=== PATIENT | female | born 1970 | race Caucasian/White ===

== ENCOUNTER → 2017-07-27 11:08 | Outpatient (CLI) | payer OTHER, MEDICARE, SELFPAY ==
--- NOTE | 2017-07-27 11:14 | RAD_ITS ---
STUDY: X-RAY - RIGHT FOOT CLINICAL: Female, 47 years old. Pain TECHNIQUE: 3 view(s) of the foot. COMPARISON: None. FINDINGS: A small plantar calcaneal spur. A prominent talar beak Normal visualized subtalar, talonavicular, calcaneocuboid, tarsal and tarsometatarsal articulations. Normal metatarsi. Normal metatarsophalangeal joint of the great toe. Normal tibial and fibular sesamoid bones. Normal interphalangeal joint of the great toe. Normal phalanges of the great toe. Normal second through fifth metatarsophalangeal joints. Normal interphalangeal joints and phalanges of the lesser toes. The soft tissue structures are unremarkable. RAD/Foot min 3 Views IMPRESSION: Normal x-ray examination of the foot. No fractures. A small plantar calcaneal spur and a prominent talar beak Electronically Signed: Rom Edgar, at 3:19 EST Tel , Service support ,
--- NOTE | 2017-07-27 11:16 | RAD_ITS ---
STUDY: X-RAY - LEFT FOOT CLINICAL: Female, 47 years old. Left foot and ankle pain TECHNIQUE: 3 views view(s) of the foot. COMPARISON: None. FINDINGS: There are small spurs from the posterior plantar surface of the os calcis. No fractures. No joint disease. Mild soft tissue swelling RAD/Foot min 3 Views IMPRESSION: Small spurs from the posterior and plantar surfaces of the os calcis. No fracture Electronically Signed: Rom Edgar, at 3:36 EST Tel , Service support ,
--- NOTE | 2017-07-27 11:17 | RAD_ITS ---
STUDY: X-RAY - LEFT ANKLE REASON FOR EXAM: Female, 47 years old. Bilateral ankle pain. TECHNIQUE: 3 view(s) of the ankle. COMPARISON: None. FINDINGS: Normal visualized distal tibia and fibula. Normal medial and lateral malleoli. Normal tibiotalar articulation and ankle mortise. Plantar spurs. The visualized subtalar, talonavicular, calcaneocuboid and tarsal articulations are normal. Mild soft tissue swelling. RAD/Ankle min 3 Views IMPRESSION: Mild soft tissue swelling. Electronically Signed: Jaxon Zhang MD at 12:45 EST Tel [phone], Service support ,
--- NOTE | 2017-07-27 11:17 | RAD_ITS ---
STUDY: X-RAY - RIGHT ANKLE REASON FOR EXAM: Female, 47 years old. Bilateral ankle pain. TECHNIQUE: 3 view(s) of the ankle. COMPARISON: None. FINDINGS: Normal visualized distal tibia and fibula. Normal medial and lateral malleoli. Normal tibiotalar articulation and ankle mortise. Small plantar spur. The visualized subtalar, talonavicular, calcaneocuboid and tarsal articulations are normal. The soft tissue structures are unremarkable. RAD/Ankle min 3 Views IMPRESSION: Small plantar spur. Electronically Signed: Jaxon Zhang MD at 12:44 EST Tel [phone], Service support ,
== END ==
PROVIDERS: Family Provider Internal Medicine; PCP Internal Medicine; Visit Provider Internal Medicine
DX: M79.671 Pain in right foot (principal); M79.672 Pain in left foot
CPT/HCPCS: 73610; 73630

== ENCOUNTER → 2017-09-06 12:42 | Outpatient (CLI) | payer OTHER, MEDICARE, SELFPAY ==
--- NOTE | 2017-09-06 12:48 | RAD_ITS ---
STUDY: X-RAY - LEFT HAND REASON FOR EXAM: Female, 47 years old. Pain TECHNIQUE: Two view(s) of the hand were obtained. COMPARISON: None. FINDINGS: Bones: There are no acute osseous abnormalities. Joints: The visualized joints are unremarkable. Soft tissues: The soft tissues are unremarkable. Foreign body: None RAD/Hand 2 Views IMPRESSION: No significant abnormalities are seen radiographically in the left hand. Electronically Signed: Olivia Ramirez MD at 8:19 EDT Tel Direct: [phone], Service support ,
--- NOTE | 2017-09-06 12:49 | RAD_ITS ---
STUDY: X-RAY - RIGHT HAND REASON FOR EXAM: Female, 47 years old. Pain TECHNIQUE: Two view(s) of the hand were obtained. COMPARISON: None. FINDINGS: Bones: There are no acute osseous abnormalities. Joints: The visualized joints are unremarkable. Soft tissues: The soft tissues are unremarkable. Foreign body: None RAD/Hand 2 Views IMPRESSION: No significant abnormalities are seen radiographically in the right hand. Electronically Signed: Olivia Ramirez MD at 8:20 EDT Tel Direct: [phone], Service support ,
== END ==
PROVIDERS: Family Provider Internal Medicine; PCP Internal Medicine; Visit Provider Internal Medicine
DX: M79.641 Pain in right hand (principal); M79.642 Pain in left hand
CPT/HCPCS: 73120

== ENCOUNTER → 2017-09-30 17:07 | Outpatient (CLI) | payer OTHER, MEDICARE, SELFPAY ==
--- NOTE | 2017-09-30 17:39 | BI_ITS ---
MAMMOGRAPHY - BILATERAL SCREENING REASON FOR EXAM: Female, 47 years old. Routine annual screening examination. PERTINENT HISTORY: Mother with breast cancer. Aunt with breast cancer. TECHNIQUE: Digital bilateral breast jakob (3D mammographic acquisition) in the CC and MLO projections. 2-D mediolateral oblique (MLO) and craniocaudad (CC) views of both breasts were obtained. CAD: Full Field Digital Mammography with Computer Added Detection was performed. COMPARISON: Comparison is made with prior study dated September 13, 2012 and May 14, 2011. FINDINGS: Breast Composition: There are scattered areas of fibroglandular density. There are no dominant masses or suspicious calcifications. No other significant abnormalities are identified. There has been no significant change since the prior study. BI/SCREENING MAMM (CAD), BILAT IMPRESSION: Stable bilateral screening mammogram. Yearly follow-up mammogram recommended. (A) ASSESSMENT CATEGORY: BIRADS Category 1: Negative. A letter regarding these results will be sent to the patient by the facility within 30 days. Approximately 10% of breast cancers are not detected by mammography. A normal mammogram should not delay biopsy of a clinically suspicious abnormality. [id number] Electronically Signed: Jaxon Zhang MD at 8:14 EDT Tel [phone], Service support ,
== END ==
PROVIDERS: Family Provider Internal Medicine; PCP Internal Medicine; Visit Provider Internal Medicine
DX: Z12.31 Encounter for screening mammogram for malignant neoplasm of breast (principal)
CPT/HCPCS: 77063; 77067

== ENCOUNTER 2017-10-13 21:33 | Emergency (ER) | payer OTHER, MEDICARE, SELFPAY ==
[2017-10-13 21:34] VITALS: BP 139/52; PULSE 75; RESP 17; TEMP 36.6; O2SAT 94; BMI 40.8
--- NOTE | 2017-10-13 22:45 | ED.VISSUMM ---
- ER Visit Summary Date of Service: 10/13/17 Chief Complaint: Vaginal itching and spotting History of Present Illness: The patient is a 47 F with a history of a total hysterectomy on Eliquis who had some vaginal itching today and when she checked noticed a small amount of blood. She denies any pelvic pain. Review of systems otherwise negative. She called the nursing line and was advised to go to the emergency department. Physical Examination: Afebrile vitals are stable Moist mucous membranes Heart regular Lungs clear There is a small area of mucous membrane area of irritation and superficial skin breakdown along the right labia majora that appears to be the source of bleeding. This may be due to vaginal atrophy. Test Results: Not indicated Emergency Department Course and Treatment: Patient has a small irritated area that appears to be the source of bleeding. She has had a complete hysterectomy. There is no indication for further emergent workup and she was advised of the need to follow-up with a front office assistant. Stance return for new or worsening symptoms. She was discharged. Treatment Plan: [] Disposition: Discharge Impression: Vaginal bleeding This note was generated with [employer] dictation software. It may contain incorrect words, spelling, and punctuation that were not noted in review of the chart prior to signing ED Disposition - Plan for ED Patient: Chief Complaint: Vag Bleeding Referrals: Paty Catalan DO [Primary Care Provider] -
--- NOTE | 2017-10-13 22:47 | ED.DEP ---
ED Disposition - Plan for ED Patient: Chief Complaint: Vag Bleeding Instructions: ED Vaginitis Atrophic Referrals: Paty Catalan DO [Primary Care Provider] - Arnav Saha MD [STAFF PHYSICIAN] -
== END 2017-10-13 23:06 | disposition home or self-care (01) ==
LOC: ED 22:57
PROVIDERS: Emergency Provider Emergency Medicine; Family Provider Internal Medicine; PCP Internal Medicine
DX: N76.0 Acute vaginitis (principal); N90.89 Other specified noninflammatory disorders of vulva and perineum; E11.9 Type 2 diabetes mellitus without complications; I10 Essential (primary) hypertension; Z90.710 Acquired absence of both cervix and uterus; Z79.01 Long term (current) use of anticoagulants; Z79.899 Other long term (current) drug therapy
CPT/HCPCS: 99282

== ENCOUNTER → 2017-12-31 17:44 | Outpatient (CLI) | payer OTHER, MEDICARE, SELFPAY ==
--- NOTE | 2017-12-31 17:47 | CT_ITS ---
STUDY: CT ABDOMEN AND PELVIS WITH CONTRAST REASON FOR EXAM: Female, 47 years old. Lower abdominal pain, history of hysterectomy cholecystectomy. RADIATION DOSAGE (If Supplied By Facility): CTDIvol = ( 18.51 ) mGy, DLP = ( 1248.52 ) mGycm TECHNIQUE: Transaxial images were obtained from the dome of the diaphragm to the symphysis pubis without oral contrast. 100ML ml of Isovue 300 contrast was administered. Sagittal and coronal images were reconstructed. Individualized dose optimization techniques were used for this CT. COMPARISON: October 10, 2014 CT scan abdomen and pelvis FINDINGS: The visualized lung bases are unremarkable. The visualized portions of the heart are within normal limits. Normal liver. There are surgical clips in the gallbladder fossa consistent with a prior cholecystectomy. Normal spleen. Normal pancreas. Normal bilateral adrenal glands. Normal right kidney. Normal left kidney. There is a small hiatal hernia. There is contrast in the stomach. There is nonspecific midline filling defect within the stomach which may represent focal wall thickening extending from the greater curvature image #42. There is a thick-walled appearance of the distal stomach. Normal small intestine. Normal colon. The appendix is visualized and appears normal. Normal abdominal aorta. Normal inferior vena cava. Normal retroperitoneum. There is mild bladder wall thickening. There is absence of the uterus consistent with a prior hysterectomy. There are superficial lower pelvic varicosities within the soft tissues left greater than right is a decompressed appearance of the inferior vena cava. There is degenerative change of the lumbar spine. There is a broad disc bulge at L4-L5 with congenital narrowing of the canal. L5-S1 there is a broad disc osteophyte complex congenital narrowing of the canal moderate neural foraminal narrowing moderate central stenosis. There is degenerative change of the SI joints. CT/Abdomen/Pelvis WITH Contrast IMPRESSION: Stable soft tissue varicosities within the lower abdominal/pelvis wall compared to prior study. Status post hysterectomy Status post cholecystectomy. Allowing for peristalsis, Thickened appearance of the wall of the stomach which may represent potentially underlying gastritis and a potential Atypia/mass. Consider follow-up upper GI small bowel follow-through and/or endoscopy. 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
== END ==
PROVIDERS: Family Provider Internal Medicine; PCP Internal Medicine; Visit Provider Internal Medicine
DX: R10.30 Lower abdominal pain, unspecified (principal)
CPT/HCPCS: 74177; Q9967

== ENCOUNTER 2018-01-10 05:39 | Day surgery (SDC) | payer OTHER, MEDICARE, SELFPAY ==
--- NOTE | 2018-01-06 16:13 | NURSING ---
Pt repeatedly falling asleep on the phone while trying to complete PAT questions.
[2018-01-10 06:06] VITALS: BP 113/73; PULSE 61; RESP 16; TEMP 35.8; O2SAT 97; BMI 38.7
[2018-01-10 06:30] LABS: Bedside Glucose 108 mg/dL (70-110)
--- NOTE | 2018-01-10 07:08 | PCM.OPRPT ---
Problem List (1) Abnormal findings on diagnostic imaging of other abdominal regions, including retroperitoneum Status: Acute Report of Operation Date of Procedure: 01/10/18 Pre-Operative Diagnosis: r93.[address] scan of abdomen Post-Operative Diagnosis: Same Surgery/Procedure Performed:: Esophagogastroduodenoscopy Type of Anesthesia:: MAC Anesthesiologist: Rios Akbar Description of Procedure: Patient was brought into the endoscopy suite. Back of her throat was sprayed with benzocaine spray. He was given graded anesthesia. A bite-block was placed. Lippa scope was inserted into the back of the oropharynx and directed down through the esophagus into the stomach and into the duodenum without difficulty. Operative findings: 1. Duodenum: Normal appearance no mass lesions no ulcerations no signs of bleeding. 2. Stomach: Normal appearance no mass lesions no ulcerations minimal gastritis was identified in the prepyloric area but there was no signs of any linear ulcerations the mucosal all look normal there was no cobblestoning of the mucosa. There was no recent activity of bleeding. Retroflexion did not show any signs of a hiatal hernia. 3. Esophagus: Normal appearance no mass lesions normal ZE line there was no signs of esophagitis there is no signs of any recent bleeding there is no signs of any hiatal hernia. Patient's upper scope was entirely normal no biopsies were obtained. - Admit VTE Documentation VTE Present on Admission: No VTE Mechan Device Prophylaxis: None VTE Pharm Prophylaxis ordered?: No Reason prophylaxis not ordered:: Treatment Not Indicated
[2018-01-10 07:10] VITALS: BP 101/70; BP 113/73; PULSE 64; RESP 16; TEMP 36.4; O2SAT 94
[2018-01-10 07:15] VITALS: BP 113/73; BP 97/79; PULSE 82; RESP 16; O2SAT 94
[2018-01-10 07:20] VITALS: BP 103/76; BP 113/73; PULSE 62; RESP 16; O2SAT 92
[2018-01-10 07:26] VITALS: BP 113/73; BP 116/80; PULSE 64; RESP 18; TEMP 36.3; O2SAT 94
[2018-01-10 07:38] VITALS: BP 113/73
== END 2018-01-10 08:01 | disposition home or self-care (01) ==
LOC: EN 05:40
PROVIDERS: Family Provider Internal Medicine; PCP Internal Medicine; Visit Provider Surgery
PROC: 0DJ08ZZ Inspection of Upper Intestinal Tract, Via Natural or Artificial Opening Endoscopic (ICD-10-PCS; CPT 43235; principal; 2018-01-10 06:55)
DX: R93.5 Abnormal findings on diagnostic imaging of other abdominal regions, including retroperitoneum (principal); I50.9 Heart failure, unspecified; I11.0 Hypertensive heart disease with heart failure; J44.9 Chronic obstructive pulmonary disease, unspecified; Z87.891 Personal history of nicotine dependence; K21.9 Gastro-esophageal reflux disease without esophagitis; E11.9 Type 2 diabetes mellitus without complications; Z86.718 Personal history of other venous thrombosis and embolism; Z79.899 Other long term (current) drug therapy; Z79.01 Long term (current) use of anticoagulants; Z79.4 Long term (current) use of insulin; G47.33 Obstructive sleep apnea (adult) (pediatric); Z87.11 Personal history of peptic ulcer disease; R19.7 Diarrhea, unspecified; K43.2 Incisional hernia without obstruction or gangrene
CPT/HCPCS: 43235; 82962; J7120

== ENCOUNTER 2018-02-02 10:23 | Emergency (ER) | payer OTHER, MEDICARE, SELFPAY ==
[2018-02-02 10:24] VITALS: BP 101/65; PULSE 69; RESP 16; TEMP 36.7; O2SAT 96; BMI 39.8
[2018-02-02 10:30] VITALS: BP 105/73; PULSE 74; RESP 16
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
[2018-02-02] MEDS: Acetaminophen 500 MG Tablet 1000 MG PO (11:58)
[2018-02-02 12:40] VITALS: BP 111/75; PULSE 70; RESP 14; O2SAT 98
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
[2018-02-02 12:55] VITALS: BP 124/71; PULSE 80; RESP 20
== END 2018-02-02 12:55 | disposition home or self-care (01) ==
PROVIDERS: Emergency Provider Emergency Medicine; Family Provider Internal Medicine; PCP Internal Medicine
DX: S20.212A Contusion of left front wall of thorax, initial encounter (principal); S20.211A Contusion of right front wall of thorax, initial encounter; V89.2XXA Person injured in unspecified motor-vehicle accident, traffic, initial encounter; Y93.9 Activity, unspecified; Y92.9 Unspecified place or not applicable; I25.10 Atherosclerotic heart disease of native coronary artery without angina pectoris; I50.9 Heart failure, unspecified; E11.9 Type 2 diabetes mellitus without complications; Z79.01 Long term (current) use of anticoagulants; Z79.84 Long term (current) use of oral hypoglycemic drugs; Z79.899 Other long term (current) drug therapy
CPT/HCPCS: 71046; 99284

== ENCOUNTER → 2018-02-09 06:23 | Outpatient (CLI) | payer OTHER, MEDICARE, SELFPAY ==
--- NOTE | 2018-02-09 15:59 | NEURO ---
NCS and/or EMG Patient Report Ordering Doctor: Paty Catalan DATE OF SERVICE: 02/09/18 Simi Rodriges is a 47-year-old female presents for electrodiagnostic testing of the upper limbs she has chief complaint of numbness and tingling in both hands. Electrodiagnostic findings: Median motor nerve demonstrates normal distal latency, amplitude and conduction velocity bilaterally. Normal ulnar motor response bilaterally. Normal ulnar and median F waves. Sensory responses are within normal limits. Needle EMG testing shows 1+ fibrillations in the left pronator teres, left triceps and left lower cervical paraspinals. Motor unit action potentials were normal amplitude and duration. Electrodiagnostic impression: This is an abnormal study in the upper limbs. 1. Electrodiagnostic findings demonstrate acute left C7 radiculopathy. Consider clinical correlation with cervical spine imaging. 2. No electrodiagnostic evidence is noted for peripheral neuropathy. There is no electrodiagnostic evidence for carpal tunnel syndrome. If there are any further questions, please do not hesitate to contact me
== END ==
PROVIDERS: Family Provider Internal Medicine; PCP Internal Medicine; Visit Provider Internal Medicine
DX: R20.2 Paresthesia of skin (principal)
CPT/HCPCS: 95886; 95913

== ENCOUNTER 2018-02-14 07:41 | Day surgery (SDC) | payer OTHER, MEDICARE, SELFPAY ==
--- NOTE | 2018-02-14 | COLBX_PTH ---
PATIENT: COOPER NIELSEN LOC: EN U#:[id number] AGE/SX: 47/F ROOM: RE02/14/[address]: Dr. Frederick Rdz MD : 1970 BED: DIS: 02/14/2018 SPEC #: [id number] RECD: 02/14/18 13:23 STATUS: CARITO LUZMARIA #: [id number] ROSALINE: 02/14/18 00:[address]: Frederick Rdz DEPT: SURGICAL PATHOLOGY RECD BY: Samson Mcneill ENTERED: 02/14/18 13:24 SP TYPE: COLON BX OTHR DR: Dr. Paty Catalan, DO Tissues: A - Ileum, NOS B - COLON BIOPSY Procedures: Surgery Specimen Level IV HEADER OPERATION: Colonoscopy PRE-OP DIAGNOSIS: Diarrhea TISSUE SUBMITTED: A ? Terminal ileum biopsy, B ? Random colon biopsies MICROSCOPIC DIAGNOSIS A. Terminal ileum, biopsy: Fragments of small intestinal mucosa, no pathologic diagnosis. B. Colon, random biopsy: Fragments of colonic mucosa, no pathologic diagnosis. DEBORAH:torres 02/15/18 MICROSCOPIC DESCRIPTION Slides are reviewed. GROSS DESCRIPTION A - Received in fixative is one container labeled with the patient's name and designated terminal ileum. The specimen consists of multiple irregular fragments of light gaspar soft tissue that in aggregate measure 0.5 x 0.4 x 0.1 cm. The specimen is totally submitted in one cassette. B - Received in fixative is one container labeled with the patient's name and designated random colon biopsy. The specimen consists of multiple irregular fragments of light gaspar soft tissue that in aggregate measure 2 x 0.5 x 0.1 cm. The specimen is totally submitted in one cassette. / DEBORAH:torres 02/14/18 TC:4 CPT: 25921 x2
[2018-02-14 08:04] VITALS: BP 107/69; PULSE 82; RESP 18; TEMP 36.2; O2SAT 97; BMI 39.4
[2018-02-14 08:21] LABS: Bedside Glucose 107 mg/dL (70-110)
--- NOTE | 2018-02-14 08:57 | PCM.OPRPT ---
Problem List (1) Abnormal findings on diagnostic imaging of other abdominal regions, including retroperitoneum Status: Acute (2) Diarrhea Status: Acute Qualifiers: Diarrhea type: unspecified type Qualified Code(s): R19.7 - Diarrhea, unspecified Report of Operation Date of Procedure: 02/14/18 Pre-Operative Diagnosis: R19.[address] scan of abdomen Post-Operative Diagnosis: Same Surgery/Procedure Performed:: [id number] colonoscopy with biopsies Type of Anesthesia:: MAC Description of Procedure: Patient was brought into the endoscopy suite placed in left lateral decubitus position was given graded anesthesia. The colonoscope was inserted into the rectum. The scope was directed through the sigmoid colon, descending colon, transverse colon, descending colon, to the cecum, and into the terminal ileum operative findings: #1 terminal ileum: Normal appearance biopsy was obtained no signs of ulcerations or mass lesions. 2. Cecum: Normal appearance no mass lesions normal ileocecal valve. 3. Ascending colon: Normal appearance no mass lesions 4. Transverse colon: Normal appearance no mass lesions 5. Descending colon: Normal appearance no mass lesions. 6. Sigmoid colon: Normal appearance no mass lesions 7 rectum: Normal appearance no mass lesions I did random colon biopsies from the cecum to the rectum. These were all placed in the same jar. The mucosa looked entirely normal there is no obvious signs of reasons for her diarrhea. I will see her back in 1 week and discussed the biopsy results with her. I will also discuss possible hernia repair on her. - Admit VTE Documentation VTE Present on Admission: No VTE Mechan Device Prophylaxis: None VTE Pharm Prophylaxis ordered?: No Reason prophylaxis not ordered:: Treatment Not Indicated
[2018-02-14 08:59] VITALS: BP 102/71; BP 107/69; PULSE 78; RESP 16; TEMP 36.5; O2SAT 94
[2018-02-14 09:04] VITALS: BP 102/67; BP 107/69; PULSE 70; RESP 16; O2SAT 94
[2018-02-14 09:09] VITALS: BP 107/69; BP 98/80; PULSE 81; RESP 16; O2SAT 94
[2018-02-14 09:15] VITALS: BP 107/69; BP 111/76; PULSE 73; RESP 16; TEMP 36.4; O2SAT 96
== END 2018-02-14 10:28 | disposition home or self-care (01) ==
LOC: EN 07:43 → AC 07:43
PROVIDERS: Family Provider Internal Medicine; PCP Internal Medicine; Visit Provider Surgery
PROC: 0DJD8ZZ Inspection of Lower Intestinal Tract, Via Natural or Artificial Opening Endoscopic (ICD-10-PCS; CPT 45378; principal; 2018-02-14 08:55)
DX: R19.7 Diarrhea, unspecified (principal); R93.5 Abnormal findings on diagnostic imaging of other abdominal regions, including retroperitoneum; K43.2 Incisional hernia without obstruction or gangrene; G47.33 Obstructive sleep apnea (adult) (pediatric); I11.0 Hypertensive heart disease with heart failure; I50.9 Heart failure, unspecified; F31.9 Bipolar disorder, unspecified; I42.9 Cardiomyopathy, unspecified; K58.9 Irritable bowel syndrome, unspecified; F20.9 Schizophrenia, unspecified; J44.9 Chronic obstructive pulmonary disease, unspecified; G25.81 Restless legs syndrome; E11.9 Type 2 diabetes mellitus without complications; F32.9 Major depressive disorder, single episode, unspecified; Z86.711 Personal history of pulmonary embolism; Z86.718 Personal history of other venous thrombosis and embolism; Z87.11 Personal history of peptic ulcer disease; Z78.0 Asymptomatic menopausal state; Z90.710 Acquired absence of both cervix and uterus; Z90.49 Acquired absence of other specified parts of digestive tract; Z79.84 Long term (current) use of oral hypoglycemic drugs; Z79.01 Long term (current) use of anticoagulants; Z79.899 Other long term (current) drug therapy; Z87.891 Personal history of nicotine dependence
CPT/HCPCS: 45380; 82962; 88305; J7120

== ENCOUNTER → 2018-02-15 10:51 | Outpatient (CLI) | payer OTHER, MEDICARE, SELFPAY | PROVIDERS: Family Provider Internal Medicine; PCP Internal Medicine; Visit Provider Internal Medicine | DX: M54.12 Radiculopathy, cervical region (principal) | CPT/HCPCS: 72050 ==

== ENCOUNTER 2018-02-21 11:30 | Outpatient (RCR) | payer OTHER, MEDICARE, SELFPAY ==
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
--- NOTE | 2018-03-04 11:57 | HP.PTDCNRP_ITS ---
HP - Discharge Summary (1) - Patient Information COOPER NIELSEN was seen in my office for initial evaluation on 02/18/18. The following Plan of Care was established for this patient: Initial Frequency: 3x /Week Initial Duration: 2-4 Weeks - Anticipated Interventions Patient/Client Instruction: Educate patient on: Condition For the Purpose of:: To decrease pain, To increase ROM, To increase tolerance to activity/condition/position Therapeutic Exercise to Include: Strength training, Flexibilty training, Active ROM, Scapular Strength/Stabilization For the Purpose of:: To decrease pain, To increase ROM, To improve muscle performance and motor function, To improve ability of physical actions for home/ community/work/leisure, To improve gait and locomotor functions Manual Therapy Techniques to Include: Soft tissue mobilization For the Purpose of:: To increase ROM, To improve nutrient delivery to tissue Thermo therapy (hot pack): Yes For the Purpose of:: To improve nutrient delivery to tissue, To increase tolerance to activity/condition/position This patient was last seen in our office 02/21/18. Pertinent comments regarding their Physical therapy will appear below: Pt seen for two visits and has no showed 4 times since neglecting to attend any further visits. at this time, I will d/c her due to nonattendance. At this point I will be discontinuing this patient from physical therapy. I would be happy to see this patient again in the future if found appropriate by the physician. Thank you! Rios Delcid, DPT, OC
== END 2018-02-21 19:00 | disposition home or self-care (01) ==
LOC: PT 11:30
PROVIDERS: Family Provider Internal Medicine; PCP Internal Medicine; Visit Provider Internal Medicine
DX: M79.9 Soft tissue disorder, unspecified (principal); S20.319D Abrasion of unspecified front wall of thorax, subsequent encounter; M54.12 Radiculopathy, cervical region; V89.2XXD Person injured in unspecified motor-vehicle accident, traffic, subsequent encounter
CPT/HCPCS: 97110; 97162

== ENCOUNTER 2018-02-23 16:28 | Emergency (ER) | payer OTHER, MEDICARE, SELFPAY ==
[2018-02-23 16:30] VITALS: BP 111/67; PULSE 89; RESP 16; TEMP 36.8; O2SAT 97; BMI 36.0
[2018-02-23 17:33] LABS: Absolute Lymphocyte Count 2.67 X10^3/ul (0.83-4.51); Basophil# 0.01 X10^3/uL; Basophil% 0.1 % (0-1); Eosinophil# 0.12 X10^3/uL; Eosinophils% 1.1 % (0-5); Hematocrit 45.2 % (37-47); Hemoglobin 14.6 g/dl (12.0-15.0); Lymphocyte # 2.67 X10^3/ul (4.0); Mean Corp Hgb Conc 32.3 g/gl (32-36); Mean Corpuscular Volume 92.8 fL (81-99); Mean Platelet Vol. 9.9 fl (6.2-12.0); Monocyte# 0.89 X10^3/uL; Monocyte% 8.3 % (0-10); Neutrophil # 6.97 X10^3/uL (2.7-7.7); Neutrophil % 65.4 % (47-70); Platelet Count 246 K/mm3 (150-450); RBC Distribution Width CV 13.1 % (11.6-14.6); RBC Distribution Width SD 44.6 fl (35.1-43.9); Red Blood Count 4.87 M/mm3 (4.2-5.4); White Blood Count 10.7 K/mm3 (4.4-11.0)
[2018-02-23 17:35] LABS: POSITIVE COUNT NO; POSITIVE DIFFERENTIAL NO; POSITIVE MORPHOLOGY NO
[2018-02-23 17:53] LABS: ALB/GLOB Ratio 0.9 RATIO (0.9-2.4); AST(SGOT) 14 U/L (15-37); Alanine Aminotransfer ALT/SGPT 29 U/L (13-56); Albumin, Serum 3.5 g/dL (3.2-5.0); Alkaline Phosphatase 101 U/L (45-117); Anion Gap 9 (5-15); BUN 17 mg/dL (7-18); BUN/Creat Ratio 22.6 RATIO (10-20); Chloride 106 mmol/L (98-107); Creatinine, Serum 0.75 mg/dL (0.55-1.02); EST Glomerular Filtration Rate 87 mL/min (>60); Est Glom Filt Rate - Afr Amer 105 mL/min (>60); Estimated Creatinine Clearance 87.27 ml/min; Globulin 4.1 g/dL (2.2-4.2); Glucose 98 mg/dL (74-106); Potassium 3.3 mmol/L (3.5-5.1); Protein, Total 7.6 g/dL (6.4-8.2); Sodium Level 142 mmol/L (136-145)
[2018-02-23 17:55] LABS: Pregnancy, Serum, hCG Quali. NEGATIVE Negative (0-9 Nonpreg)
[2018-02-23 18:06] LABS: Alcohol, Blood (Medical)-Serum < 3.0 mg/dL
[2018-02-23] MEDS: Ziprasidone IM 20 MG/ML VIAL 10 MG IM (18:14)
[2018-02-23 18:59] VITALS: BP 118/82; PULSE 74; RESP 16; O2SAT 96
[2018-02-23 19:03] LABS: Red Blood Cells-Urine 0 SEEN /hpf (0-5)
[2018-02-23 19:07] LABS: Color, Urine Yellow (Yellow); Glucose, Dipstick Normal (Normal); Ketone-Dipstick Negative (Negative); Leukocyte Esterase-Dipstick 25 /ul (Negative); Nitrite-Dipstick Negative (Negative); Occult Blood-Urine Negative /ul (Negative); Protein-Dipstick Negative (Negative); Urine Bilirubin Dipstick Negative (Negative); Urine Clarity Clear (Clear); Urine Urobilinogen Normal (Normal)
[2018-02-23 19:21] LABS: Bacteria 2+ /hpf (None Seen); Mucous, Urine 2+ /hpf (<or=2+); Squamous Epithelial Cells - UA 0-5 SEEN /hpf (5-10); White Blood Cells 0-5 SEEN /hpf (0-5)
[2018-02-23 19:25] LABS: Amphetamine Urine VISTA NEGATIVE (<1000 ng/mL); Barbiturate Urine VISTA NEGATIVE (< 200 ng/mL); Benzodiazepine Urine VISTA NEGATIVE (< 200 ng/mL); Cocaine Urine VISTA NEGATIVE (< 300 ng/mL); Ecstacy Urine VISTA NEGATIVE (< 500 ng/mL); Methadone Urine VISTA NEGATIVE (< 300 ng/mL); PCP Urine VISTA NEGATIVE (< 25 ng/mL); THC Urine VISTA NEGATIVE (< 50 ng/mL); Vista UDS pH Range 6
[2018-02-23 20:10] VITALS: BP 108/80; PULSE 80; RESP 14; O2SAT 98
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
== END 2018-02-23 20:20 | disposition home or self-care (01) ==
PROVIDERS: Emergency Provider Emergency Medicine; Family Provider Internal Medicine; PCP Internal Medicine
DX: F20.9 Schizophrenia, unspecified (principal); R79.1 Abnormal coagulation profile; Z79.01 Long term (current) use of anticoagulants; R51 Headache; J45.909 Unspecified asthma, uncomplicated; F31.9 Bipolar disorder, unspecified; E11.9 Type 2 diabetes mellitus without complications; Z86.718 Personal history of other venous thrombosis and embolism; Z79.84 Long term (current) use of oral hypoglycemic drugs; Z79.899 Other long term (current) drug therapy
CPT/HCPCS: 70450; 80053; 80307; 80320; 81001; 84703; 85025; 96372; 99283; A4216; G0480; J3486

== ENCOUNTER 2018-02-26 10:08 | Emergency (ER) | payer OTHER, MEDICARE, SELFPAY ==
[2018-02-26 10:10] VITALS: BP 112/86; PULSE 83; RESP 22; TEMP 36.4; O2SAT 94; BMI 41.1
[2018-02-26 10:50] LABS: Red Blood Cells-Urine 0 SEEN /hpf (0-5); White Blood Cells 0 SEEN /hpf (0-5)
[2018-02-26 10:55] LABS: Color, Urine Yellow (Yellow); Glucose, Dipstick Normal (Normal); Ketone-Dipstick 5 mg/dl (Negative); Leukocyte Esterase-Dipstick Negative /ul (Negative); Nitrite-Dipstick Negative (Negative); Occult Blood-Urine Negative /ul (Negative); Protein-Dipstick Negative (Negative); Urine Bilirubin Dipstick Negative (Negative); Urine Clarity Sl. Cloudy (Clear); Urine Urobilinogen Normal (Normal); Urine pH 6.5 (5.0 - 8.0)
[2018-02-26 10:56] LABS: Absolute Lymphocyte Count 3.05 X10^3/ul (0.83-4.51); Absolute Neutrophil Count 5.6 X10^3/uL (2.0-7.7); Basophil# 0.02 X10^3/uL; Basophil% 0.2 % (0-1); Eosinophil# 0.17 X10^3/uL; Eosinophils% 1.8 % (0-5); Hematocrit 44.3 % (37-47); Hemoglobin 14.5 g/dl (12.0-15.0); Lymphocyte # 3.05 X10^3/ul (4.0); Lymphocyte % 31.7 % (19-41); Mean Corp Hgb Conc 32.7 g/gl (32-36); Mean Corpuscular Hgb 30.3 pg (27.0-32.0); Mean Corpuscular Volume 92.7 fL (81-99); Mean Platelet Vol. 10.2 fl (6.2-12.0); Monocyte# 0.77 X10^3/uL; Neutrophil % 58.1 % (47-70); Platelet Count 240 K/mm3 (150-450); RBC Distribution Width CV 13.1 % (11.6-14.6); Red Blood Count 4.78 M/mm3 (4.2-5.4); White Blood Count 9.6 K/mm3 (4.4-11.0)
[2018-02-26 10:57] LABS: Differential Indicated SCAN CRITERIA MET; POSITIVE COUNT NO; POSITIVE DIFFERENTIAL NO; POSITIVE MORPHOLOGY YES
[2018-02-26 11:02] LABS: Bacteria RARE /hpf (None Seen); Mucous, Urine 1+ /hpf (<or=2+); Squamous Epithelial Cells - UA 0-5 SEEN /hpf (5-10)
[2018-02-26 11:07] LABS: Anion Gap 10 (5-15); BUN 16 mg/dL (7-18); BUN/Creat Ratio 25.3 RATIO (10-20); Calcium,Total 8.8 mg/dL (8.5-10.1); Chloride 106 mmol/L (98-107); Creatinine, Serum 0.63 mg/dL (0.55-1.02); EST Glomerular Filtration Rate 106 mL/min (>60); Est Glom Filt Rate - Afr Amer 128 mL/min (>60); Estimated Creatinine Clearance 92.25 ml/min; Glucose 109 mg/dL (74-106); Potassium 3.6 mmol/L (3.5-5.1); Sodium Level 142 mmol/L (136-145)
[2018-02-26 11:14] LABS: Pregnancy, Serum, hCG Quali. NEGATIVE Negative (0-9 Nonpreg)
[2018-02-26 11:14] LABS: Amphetamine Urine VISTA NEGATIVE (<1000 ng/mL); Barbiturate Urine VISTA NEGATIVE (< 200 ng/mL); Benzodiazepine Urine VISTA NEGATIVE (< 200 ng/mL); Cocaine Urine VISTA NEGATIVE (< 300 ng/mL); Ecstacy Urine VISTA NEGATIVE (< 500 ng/mL); Methadone Urine VISTA NEGATIVE (< 300 ng/mL); PCP Urine VISTA NEGATIVE (< 25 ng/mL); THC Urine VISTA NEGATIVE (< 50 ng/mL); Vista UDS pH Range 6
[2018-02-26 11:43] VITALS: BP 122/78; PULSE 80; RESP 14; O2SAT 98
--- NOTE | 2018-02-26 12:03 | ED.RN ---
CALLED COUNSELING CENTER TO HAVE THEM COME SEE PATIENT.
--- NOTE | 2018-02-26 12:34 | ED.RN ---
DEEPAK CALLED STATING SHE WOULD BE IN TO EVALUATE PATIENT.
[2018-02-26 12:35] VITALS: BP 118/70; PULSE 80; RESP 14; O2SAT 98
--- NOTE | 2018-02-26 13:00 | NURSING ---
DEEPAK, CRISIS , HERE
[2018-02-26 13:07] VITALS: BP 115/74; PULSE 75; RESP 14; O2SAT 98
--- NOTE | 2018-02-26 14:57 | ED.VISSUMM ---
- ER Visit Summary Date of Service: 02/26/18 Chief Complaint: Schizophrenia presents with hallucinations for the past week. She has an appointment with a new psychiatrist on Wednesday at the crisis center. No recent changes in medication but her does note that she has not been taking her meds for the past few weeks or taking them intermittently. He is not concerned that she is at risk for harming herself or others, it is just the hallucinations that are bothering her more more. Physical Examination: Vitals are within normal limits. She is not in distress. Neck is supple. Heart tones are regular and without murmur. Lungs are clear bilaterally. Abdomen is soft and nontender. No focal or lateralizing neuro findings. Speech is clear. She is open and cooperative with questions. She does have abnormal thought content but denies suicidal thoughts or ideation. Denies homicidal thoughts or ideation. Test Results: Medical screening labs are unremarkable Emergency Department Course and Treatment: He was evaluated by crisis. They do not feel that she is at risk for self-harm or harm to others. They do not feel that she meets criteria for admission. Additionally, the patient and her would prefer to go home and follow-up at her appointment as well as the crisis center. I reevaluated her and she confirms that she has no thoughts of harming herself and her agrees. He will be with her and will not leave her alone. They did ask for an injection of Geodon here because this has worked well for her in the past so she was given a low-dose injection prior to discharge. Treatment Plan: Follow up with her new psychiatrist Disposition: Home stable condition Impression: Subsequent encounter, paranoid ideation with history of schizophrenia This note was generated with [employer] dictation software. It may contain incorrect words, spelling, and punctuation that were not noted in review of the chart prior to signing ED Disposition - Plan for ED Patient: Chief Complaint: Mental Health Instructions: ED Paranoid Schizophrenia Referrals: Paty Catalan DO [Primary Care Provider] -
[2018-02-26 15:02] VITALS: BP 122/74; PULSE 80; RESP 14; O2SAT 98
[2018-02-26] MEDS: Ziprasidone IM 20 MG/ML VIAL IM (15:14)
== END 2018-02-26 15:41 | disposition home or self-care (01) ==
LOC: ED 10:44
PROVIDERS: Emergency Provider Emergency Medicine; Family Provider Internal Medicine; PCP Internal Medicine
DX: F20.0 Paranoid schizophrenia (principal); F29 Unspecified psychosis not due to a substance or known physiological condition; E11.9 Type 2 diabetes mellitus without complications; Z86.718 Personal history of other venous thrombosis and embolism; Z79.01 Long term (current) use of anticoagulants; Z79.84 Long term (current) use of oral hypoglycemic drugs; Z79.899 Other long term (current) drug therapy
CPT/HCPCS: 36415; 80048; 80307; 80320; 81001; 84703; 85025; 96372; 99283; G0480; J3486

== ENCOUNTER 2018-02-27 12:47 | Emergency (ER) | payer OTHER, MEDICARE, SELFPAY ==
[2018-02-27 12:48] VITALS: BP 109/71; PULSE 89; RESP 16; TEMP 36.6; O2SAT 95; BMI 39.5
[2018-02-27 13:09] VITALS: BP 115/70; PULSE 80; RESP 14; O2SAT 99
--- NOTE | 2018-02-27 13:09 | ED.VISSUMM ---
- ER Visit Summary Date of Service: 02/27/18 Chief Complaint: [] Contusion to the left lower abdomen after inadvertently striking sink History of Present Illness: The patient is a 48 F [] schizophrenia, 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 She has no abdominal pain no fever no cough no bowel bladder complaints she did not strike any other part of body she is other complaints she again just simply bumped her abdomen against the sink when she indicates taking all of her medications including her behavioral meds list Physical Examination: [] Resting comforting the bed vital signs are within normal range no psychomotor agitation head neck chest unremarkable abdomen soft it is obese there is a mild area of contusion to the left lower quadrant a circular it is about the size of a silver dollar, this area slightly tender there is no rebound guarding organomegaly there is no deep abdominal pain she denies any pain other than the superficial pain related to the contusion, her back is unremarkable upper lower extremities pelvis are unremarkable Test Results: [] Emergency Department Course and Treatment: [] Now there is nothing on physical exam to suggest an acute intra-abdominal process, this occurred hours ago she is hemodynamically stable with no issues or complaints except for this focal pain in the subcu of her skin as above I explained she stand all of her medications Tylenol for the pain, she should not use Motrin, and follow-up with her doctors she agrees and understands Treatment Plan: [] Disposition: [] Home stable Impression: [] Contusion left lower abdomen after inadvertent trauma, history of Eliquis therapy and schizophrenia This note was generated with [employer] dictation software. It may contain incorrect words, spelling, and punctuation that were not noted in review of the chart prior to signing ED Disposition - Plan for ED Patient: Chief Complaint: Other, Pain/Inj Referrals: Paty Catalan DO [Primary Care Provider] -
--- NOTE | 2018-02-27 13:11 | ED.DEP ---
ED Disposition - Plan for ED Patient: Chief Complaint: Other, Pain/Inj Instructions: Contusions (Bruises), ED Contusion Soft Tissue Referrals: Paty Catalan DO [Primary Care Provider] -
== END 2018-02-27 13:28 | disposition home or self-care (01) ==
LOC: ED 13:14
PROVIDERS: Emergency Provider Emergency Medicine; Family Provider Internal Medicine; PCP Internal Medicine
DX: S30.1XXA Contusion of abdominal wall, initial encounter (principal); W22.8XXA Striking against or struck by other objects, initial encounter; Y93.9 Activity, unspecified; Y92.9 Unspecified place or not applicable; F20.9 Schizophrenia, unspecified; Z86.718 Personal history of other venous thrombosis and embolism; Z79.01 Long term (current) use of anticoagulants; Z79.899 Other long term (current) drug therapy
CPT/HCPCS: 99282

== ENCOUNTER 2018-02-28 01:40 | Emergency (ER) | payer OTHER, MEDICARE, SELFPAY ==
[2018-02-28] VITALS (7 sets, daily range): BP systolic 64–115; BP diastolic 47–68; PULSE 68–93; RESP 12–19; TEMP 36.1–36.9; O2SAT 92–98; BMI 36.4; BMI 36.3
[2018-02-28] MEDS: 0.9% Normal Saline 1,000 ML 1000 ML IV (02:30)
[2018-02-28 03:09] LABS: AST(SGOT) 18 U/L (15-37); Alanine Aminotransfer ALT/SGPT 22 U/L (13-56); Albumin, Serum 3.6 g/dL (3.2-5.0); Alkaline Phosphatase 93 U/L (45-117); Anion Gap 10 (5-15); BUN 20 mg/dL (7-18); BUN/Creat Ratio 20.3 RATIO (10-20); Calcium,Total 8.8 mg/dL (8.5-10.1); Chloride 107 mmol/L (98-107); Creatinine, Serum 0.99 mg/dL (0.55-1.02); EST Glomerular Filtration Rate 63 mL/min (>60); Est Glom Filt Rate - Afr Amer 77 mL/min (>60); Estimated Creatinine Clearance 58.71 ml/min; Globulin 3.7 g/dL (2.2-4.2); Glucose 145 mg/dL (74-106); Potassium 3.8 mmol/L (3.5-5.1); Protein, Total 7.3 g/dL (6.4-8.2); Sodium Level 143 mmol/L (136-145)
[2018-02-28 03:13] LABS: Absolute Lymphocyte Count 1.41 X10^3/ul (0.83-4.51); Absolute Neutrophil Count 9.6 X10^3/uL (2.0-7.7); Basophil# 0.02 X10^3/uL; Basophil% 0.2 % (0-1); Eosinophil# 0.07 X10^3/uL; Eosinophils% 0.6 % (0-5); Hematocrit 44.3 % (37-47); Hemoglobin 14.8 g/dl (12.0-15.0); Lymphocyte # 1.41 X10^3/ul (4.0); Lymphocyte % 11.9 % (19-41); Mean Corp Hgb Conc 33.4 g/gl (32-36); Mean Corpuscular Hgb 30.9 pg (27.0-32.0); Mean Corpuscular Volume 92.5 fL (81-99); Mean Platelet Vol. 10.6 fl (6.2-12.0); Monocyte% 5.9 % (0-10); Neutrophil # 9.59 X10^3/uL (2.7-7.7); Neutrophil % 81.1 % (47-70); Platelet Count 261 K/mm3 (150-450); RBC Distribution Width CV 12.8 % (11.6-14.6); RBC Distribution Width SD 42.7 fl (35.1-43.9); Red Blood Count 4.79 M/mm3 (4.2-5.4); White Blood Count 11.8 K/mm3 (4.4-11.0)
[2018-02-28 03:14] LABS: POSITIVE COUNT NO; POSITIVE DIFFERENTIAL NO; POSITIVE MORPHOLOGY NO
[2018-02-28 03:19] LABS: Bacteria 0 SEEN /hpf (None Seen); Mucous, Urine 0 SEEN /hpf (<or=2+); Red Blood Cells-Urine 0 SEEN /hpf (0-5); Squamous Epithelial Cells - UA 0 SEEN /hpf (5-10)
[2018-02-28 03:21] LABS: Color, Urine Yellow (Yellow); Glucose, Dipstick Normal (Normal); Ketone-Dipstick 15 mg/dl (Negative); Leukocyte Esterase-Dipstick Negative /ul (Negative); Nitrite-Dipstick Negative (Negative); Occult Blood-Urine Negative /ul (Negative); Protein-Dipstick Negative (Negative); Urine Bilirubin Dipstick Negative (Negative); Urine Clarity Clear (Clear); Urine Urobilinogen Normal (Normal)
[2018-02-28 03:26] LABS: Partial Thromboplast Time 28.4 Seconds (24.1-36.2)
[2018-02-28 03:28] LABS: Hyaline Cast 5-10 SEEN /lpf (0-5); White Blood Cells 0-5 SEEN /hpf (0-5)
[2018-02-28 03:41] LABS: International Normalized Ratio 1.1; Prothrombin Time (Protime)PT. 14.3 SECONDS (11.7-14.9)
[2018-02-28 04:01] LABS: Bedside Glucose 115 mg/dL (70-110)
[2018-02-28 04:29] LABS: Amphetamine Urine VISTA NEGATIVE (<1000 ng/mL); Barbiturate Urine VISTA NEGATIVE (< 200 ng/mL); Benzodiazepine Urine VISTA NEGATIVE (< 200 ng/mL); Cocaine Urine VISTA NEGATIVE (< 300 ng/mL); Ecstacy Urine VISTA NEGATIVE (< 500 ng/mL); Methadone Urine VISTA NEGATIVE (< 300 ng/mL); PCP Urine VISTA NEGATIVE (< 25 ng/mL); THC Urine VISTA NEGATIVE (< 50 ng/mL); Vista UDS pH Range 6
--- NOTE | 2018-02-28 04:46 | ED.VISSUMM ---
- ER Visit Summary Date of Service: 02/28/18 Chief Complaint: Mental health, confusion History of Present Illness: The patient is a 48 F history of bipolar, schizophrenia, brought in by significant other concerns of confusion. Patient wandered away from the house, reported she fell, she able to make it back to the house. Mother states she is not herself. Patient denies any pain. No urinary symptoms. No nausea or vomiting. Denies homicidal or suicidal ideations. Significant other states patient has been seen multiple times in the ED here in the past couple weeks. States she was seen by crisis counselor. Records reviewed: Yesterday seen for abdominal contusion. 2 days ago was seen for visual hallucinations value by crisis, Geodon injection was given ED. Follow-up with crisis as an outpatient. February 23 was seen for missing dose medications auditory hallucinations. Patient was sent home. Physical Examination: General: Alert and oriented, answering questions, following commands. No acute distress HEENT: Normocephalic, atraumatic. Moist mucosa membranes Neck: supple, nontender. Cardiovascular: Regular rate and rhythm, no murmurs Respiratory: Normal breath sounds, symmetric, no distress Abdomen: Soft, nontender, nondistended Extremities: Nontender, no edema, pulses intact ?4 Neuro: no focal neurological deficits. Psych: No suicidal homicidal ideations. Test Results: EKG sinus rate of [address] changes. T-wave inversion in leads III. White count 11.8. Hemoglobin 14.8. Potassium 3.8. Creatinine 0.99. UA negative. Toxin alcohol negative. Chest x-ray negative. CT head negative. Emergency Department Course and Treatment: Patient presents reported confusion and at baseline. Blood pressure 80/62 on arrival did transiently dropped his systolic 60s. She responded to IV fluids. Workup initiated were any infectious findings urine and chest x-ray negative. Labs are stable. Toxin alcohol negative. EKG nonspecific changes. CT head was negative. Patient without suicidal homicidal ideations. Reevaluation alert and oriented ?3. She is not suicidal homicidal. She has a crisis evaluation and follow-up on Wednesday. She is ambulated,'s slight weakness in the leg however no falls no dizziness. Spouse is present. Comfortable taking the patient home. Discussed continue oral hydration. There is no injuries from the fall. Follow-up as an outpatient. Signs and symptoms discussed to return if any worsening symptoms. Treatment Plan: [] Disposition: Discharge Impression: 1. Transient confusion 2. Transient hypotension This note was generated with [employer] dictation software. It may contain incorrect words, spelling, and punctuation that were not noted in review of the chart prior to signing ED Disposition - Plan for ED Patient: Disposition: Home or Assisted Living Chief Complaint: Mental Health Diagnosis: Transient confusion, Transient hypotension Instructions: ED Confusion Referrals: Paty Catalan DO [Primary Care Provider] - 3-5 Days Additional Instructions: Keep follow-up appointment with crisis on Wednesday.
[2018-02-28 05:06] LABS: Alcohol, Blood (Medical)-Serum < 3.0 mg/dL
== END 2018-02-28 06:19 | disposition home or self-care (01) ==
PROVIDERS: Emergency Provider Emergency Medicine; Family Provider Internal Medicine; PCP Internal Medicine
DX: R41.0 Disorientation, unspecified (principal); I95.9 Hypotension, unspecified; F31.9 Bipolar disorder, unspecified; F20.9 Schizophrenia, unspecified; I50.9 Heart failure, unspecified; G47.33 Obstructive sleep apnea (adult) (pediatric); E11.9 Type 2 diabetes mellitus without complications; Z86.718 Personal history of other venous thrombosis and embolism; Z90.49 Acquired absence of other specified parts of digestive tract; Z90.710 Acquired absence of both cervix and uterus; Z79.01 Long term (current) use of anticoagulants; Z79.84 Long term (current) use of oral hypoglycemic drugs; Z79.899 Other long term (current) drug therapy
CPT/HCPCS: 70450; 71045; 80053; 80307; 80320; 81001; 82962; 85025; 85610; 85730; 93005; 96360; 99285; J7030; P9612; G0480

== ENCOUNTER 2018-03-15 18:22 | Observation (INO) | payer OTHER, MEDICARE, SELFPAY ==
[2018-03-15] VITALS (7 sets, daily range): BP systolic 80–101; BP diastolic 48–71; PULSE 52–64; RESP 14–46; TEMP 36.4–36.6; O2SAT 92–99; BMI 41.1; BMI 39.1
--- NOTE | 2018-03-15 18:35 | EKG12_ITS ---
Test Reason : CONFUSION Blood Pressure : / mmHG Vent. Rate : 056 BPM Atrial Rate : 056 BPM P-R Int : 162 ms QRS Dur : 080 ms QT Int : 480 ms P-R-T Axes : 052 012 013 degrees QTc Int : 463 ms Sinus bradycardia Junctional ST depression, probably normal Borderline ECG Confirmed by CARLOS LEON, ERROL ([id number]), editor newspaper NAYANA SAWANT ([id number]) on 03/17/2018 1:43:52 PM Referred By: ANNE Confirmed By:ERROL GONZALEZ MD
[2018-03-15 19:01] LABS: Bedside Glucose 92 mg/dL (70-110)
--- NOTE | 2018-03-15 19:14 | CT_ITS ---
STUDY: CT BRAIN WITHOUT CONTRAST REASON FOR EXAM: Female, 48 years old. Confusion RADIATION DOSAGE (If Supplied By Facility): CTDIvol = ( 44.99 ) mGy, DLP = ( 779.24 ) mGycm TECHNIQUE: Transaxial CT imaging of the brain was performed without administration of intravenous contrast material. Individualized dose optimization techniques were used for this CT. COMPARISON: 02/28/2018 FINDINGS: There is no acute bleed or infarct. There are normal white matter tracts. The ventricles are normal in configuration. There is no hydrocephalus. The visualized paranasal sinuses are clear. The mastoid air cells are well aerated. There is no skull fracture. CT/Brain/Head without Contrast IMPRESSION: No acute intracranial abnormality. Electronically Signed: Yash Hong, at 20:46 EDT Tel , Service support ,
--- NOTE | 2018-03-15 19:14 | RAD_ITS ---
STUDY: X-RAY CHEST REASON FOR EXAM: Female, 48 years old. Confusion TECHNIQUE: Single frontal view COMPARISON: February 28, 2018 FINDINGS: The lungs are expanded. Mild right basilar interstitial prominence. Normal size heart. Normal mediastinum and payton. Normal visualized pulmonary arteries. Normal visualized aortic arch and descending thoracic aorta. Normal visualized thoracic spine. Normal visualized ribs, clavicles, and shoulders. There is no demonstrated abnormality of the visualized soft tissue structures of the upper abdomen. RAD/Chest 1 View (Portable) IMPRESSION: Mild right basilar interstitial prominence. Electronically Signed: Stuart Wagner DO at 19:50 EDT Tel [phone], Service support ,
[2018-03-15 19:56] LABS: Blood Gas Specimen Type VEN; O2 Delivery Device Room Air; SITE OTHER; Time Given 1945; VBG BASE EXCESS 3 mmol/L (-1.0-3.5); VBG Bicarbonate 26 mmol/L (22-26); VBG Oxygen Content 26 mmol/L (23-33); VBG PO2 35 mmHg (25-40); VBG SO2 78 % (50-70); VBG pCO2 27.5 mmHg (41-51); VBG pH 7.58 (7.32-7.42)
[2018-03-15 20:00] LABS: Bacteria 0 SEEN /hpf (None Seen); Mucous, Urine 0 SEEN /hpf (<or=2+); Red Blood Cells-Urine 0 SEEN /hpf (0-5); White Blood Cells 0 SEEN /hpf (0-5)
[2018-03-15 20:02] LABS: Color, Urine Yellow (Yellow); Glucose, Dipstick Normal (Normal); Ketone-Dipstick Negative (Negative); Leukocyte Esterase-Dipstick 25 /ul (Negative); Nitrite-Dipstick Negative (Negative); Occult Blood-Urine Negative /ul (Negative); Protein-Dipstick 15 mg/dl (Negative); Urine Bilirubin Dipstick Negative (Negative); Urine Clarity Clear (Clear); Urine Urobilinogen Normal (Normal)
[2018-03-15 20:11] LABS: Absolute Lymphocyte Count 3.19 X10^3/ul (0.83-4.51); Absolute Neutrophil Count 4.3 X10^3/uL (2.0-7.7); Basophil# 0.02 X10^3/uL; Basophil% 0.2 % (0-1); Eosinophil# 0.22 X10^3/uL; Eosinophils% 2.6 % (0-5); Hematocrit 44.6 % (37-47); Hemoglobin 14.9 g/dl (12.0-15.0); Lymphocyte # 3.19 X10^3/ul (4.0); Lymphocyte % 37.8 % (19-41); Mean Corp Hgb Conc 33.4 g/gl (32-36); Mean Corpuscular Hgb 30.6 pg (27.0-32.0); Mean Corpuscular Volume 91.6 fL (81-99); Monocyte# 0.66 X10^3/uL; Monocyte% 7.8 % (0-10); Neutrophil # 4.32 X10^3/uL (2.7-7.7); Neutrophil % 51.4 % (47-70); Platelet Count 229 K/mm3 (150-450); RBC Distribution Width CV 12.8 % (11.6-14.6); RBC Distribution Width SD 41.6 fl (35.1-43.9); Red Blood Count 4.87 M/mm3 (4.2-5.4); White Blood Count 8.4 K/mm3 (4.4-11.0)
[2018-03-15 20:14] LABS: Squamous Epithelial Cells - UA 0-5 SEEN /hpf (5-10)
[2018-03-15 20:14] LABS: POSITIVE COUNT NO; POSITIVE DIFFERENTIAL NO; POSITIVE MORPHOLOGY NO
[2018-03-15 20:21] LABS: ALB/GLOB Ratio 0.8 RATIO (0.9-2.4); AST(SGOT) 30 U/L (15-37); Alanine Aminotransfer ALT/SGPT 61 U/L (13-56); Albumin, Serum 3.3 g/dL (3.2-5.0); Alkaline Phosphatase 94 U/L (45-117); Anion Gap 12 (5-15); BUN 16 mg/dL (7-18); BUN/Creat Ratio 21.1 RATIO (10-20); Calcium,Total 8.6 mg/dL (8.5-10.1); Chloride 104 mmol/L (98-107); Creatinine, Serum 0.76 mg/dL (0.55-1.02); EST Glomerular Filtration Rate 86 mL/min (>60); Est Glom Filt Rate - Afr Amer 104 mL/min (>60); Estimated Creatinine Clearance 76.47 ml/min; Globulin 3.9 g/dL (2.2-4.2); Glucose 84 mg/dL (74-106); Potassium 3.5 mmol/L (3.5-5.1); Protein, Total 7.2 g/dL (6.4-8.2); Sodium Level 140 mmol/L (136-145)
[2018-03-15 20:30] LABS: Amphetamine Urine VISTA NEGATIVE (<1000 ng/mL); Barbiturate Urine VISTA NEGATIVE (< 200 ng/mL); Benzodiazepine Urine VISTA NEGATIVE (< 200 ng/mL); Cocaine Urine VISTA NEGATIVE (< 300 ng/mL); Ecstacy Urine VISTA NEGATIVE (< 500 ng/mL); Methadone Urine VISTA NEGATIVE (< 300 ng/mL); PCP Urine VISTA NEGATIVE (< 25 ng/mL); THC Urine VISTA NEGATIVE (< 50 ng/mL); Vista UDS pH Range 8
[2018-03-15 20:33] LABS: Lactic Acid 2.4 mmol/L (0.4-2.0)
[2018-03-15 20:36] LABS: International Normalized Ratio 1.1; Partial Thromboplast Time 33.9 Seconds (24.1-36.2); Prothrombin Time (Protime)PT. 13.9 SECONDS (11.7-14.9)
[2018-03-15 20:40] LABS: Alcohol, Blood (Medical)-Serum < 3.0 mg/dL
--- NOTE | 2018-03-15 20:46 | ED.RN ---
critical lab. pt lactic 2.4. dr. dean informed.
[2018-03-15] MEDS: 0.9% Normal Saline 1,000 ML 999 ML IV ×2 (21:21)
--- NOTE | 2018-03-15 22:26 | PCM.HP.STD ---
Problem List (1) Acute encephalopathy Status: Acute (2) CHF (congestive heart failure) Status: Chronic (3) HTN (hypertension) Status: Chronic (4) BALDEMAR (obstructive sleep apnea) Status: Chronic History of Present Illness Date of Admission: 03/15/18 Chief Complaint: Altered mental status ?1 day The patient is a 48 year old F with a significant history of schizophrenia, diabetes mellitus, DVT/PE on home Eliquis; nonischemic cardiomyopathy who presents with a 1 day history of altered mental status. Her reported that when he () came home, the patient was curled up in the bed and she was not communicating. She was only mumbling. Her reports that recently patient's Risperdal was increased from 4 mg nightly to 6 mg nightly; and she had benztropine started at 0.5 mg twice daily. The last time patient took her increased dose of Risperdal was a day before admission. The last time patient took her benztropine was the morning of admission. Patient [facility] to [facility] (phone number [phone]) and she sees Psychiatry Nurse Practitioner, Arianna Gatica. Past Medical History Past Medical History (Chronic Problems): Chronic Problems (Last Reviewed 03/15/18 @ 22:38 by Quinten Trejo MD) BALDEMAR (obstructive sleep apnea) (Chronic) CHF (congestive heart failure) (Chronic) HTN (hypertension) (Chronic) DVT (deep venous thrombosis) (Chronic) Medical History: Medical History (Last Reviewed 03/15/18 @ 22:38 by Quinten Trejo MD) BALDEMAR (obstructive sleep apnea) (Chronic) G47.33 CHF (congestive heart failure) (Chronic) I50.9 HTN (hypertension) (Chronic) I10 Nausea & vomiting (Resolved) R11.2 DVT (deep venous thrombosis) (Chronic) I82.409 Palpitation (Inactive) R00.2 Dizzy (Inactive) R42 Bipolar 1 disorder F31.9 Cardiomyopathy I42.9 Eczema L30.9 IBS (irritable bowel syndrome) K58.9 PUD (peptic ulcer disease) K27.9 Pulmonary embolism I26.99 Schizophrenia F20.9 Allergies No Known Allergies Allergy (Verified 02/27/18 12:50) Home Medications: Ambulatory Orders Medication Instructions Recorded Carvedilol [Coreg (Beta Gabriela)] 3.125 mg PO BID 10/29/14 Citalopram [Celexa] 20 mg PO QHS 08/25/15 Lisinopril [Zestril] 2.5 mg PO DAILY 08/25/15 Fluticasone 0.05% [Flonase Nasal 1 spray NASAL DAILY PRN 03/09/17 [place]] Furosemide 40 mg PO DAILY 03/09/17 Risperidone [Risperdal] 6 mg PO QHS 03/09/17 Apixaban [Eliquis] 5 mg PO BID #66 tab 03/10/17 liraglutide 0.6 mg/0.1 mL (18 mg/3 0.6 mg SC QDAY PRN 01/03/18 mL) subcutaneous pen injector metformin 1,000 mg tablet 1,000 mg PO QDAY tab 01/03/18 Benztropine [Cogentin] 0.5 mg PO BID 03/15/18 Surgical History: Surgical History (Last Reviewed 03/15/18 @ 22:38 by Quinten Trejo MD) History of esophagogastroduodenoscopy (EGD) Z98.890 S/P cholecystectomy Z90.49 S/P dilation and curettage Z98.890 S/P hysterectomy Z90.710 S/P nasal septoplasty Z98.890 Surgical History: cholecystectomy, hysterectomy, - - nasa surgery Lives: Spouse/ Significant Other Smoking Status: Never smoker - *Family History Maternal Family History: Family History (Last Reviewed 03/15/18 @ 22:38 by Quinten Trejo MD) Mother Breast cancer History Items: Heart Disease Paternal Family History: Family History (Last Reviewed 03/15/18 @ 22:38 by Quinten Trejo MD) Mother Breast cancer History Items: - - colon cancer Review of Systems Unable to obtain accurate/complete ROS d/t: Non talkative due to encephalopathy. VTE Information - Inpt Only VTE Present on Admission: Yes VTE Mechan Device Prophylaxis: None VTE Pharm Prophylaxis ordered?: No Reason prophylaxis not ordered:: Treatment Not Indicated - Patient is on treatment with Eliquis. Eliquis continued. Patient Problems: Active and Suspected Problems (Last Reviewed 03/15/18 @ 22:38 by Quinten Trejo MD) Acute encephalopathy (Acute) - Physical Exam General: Alert, - - Patient is not answering questions. HEENT: Atraumatic, PERRLA, EOMI, Normocephalic Neck: No JVD, Negative Carotid Bruits Lungs: Clear to auscultation, Normal air movement Cardiovascular: Regular rate, No murmurs Abdomen: Bowel Sounds Present, Soft, Non Tender Extremities: No edema, Capillary Refill Less than 3 Seconds Skin: No rashes, No breakdown Musculoskeletal: No Tenderness to Palpation of Joints or Extremities Neurological: - - Patient is not answering questions. Psych/Mental Status: - - Alert but not answering questions. Vital Signs Temp Pulse Resp BP Pulse Ox 97.9 F 58 L 14 101/65 95 03/15/18 18:23 03/15/18 21:37 03/15/18 21:37 03/15/18 21:37 03/15/18 21:37 Assessment/Plan All Active Problems (Last Reviewed 03/15/18 @ 22:38 by Quinten Trejo MD) Diarrhea (Resolved) Acute encephalopathy (Acute) Nausea & vomiting (Resolved) The patient is a 48 year old F with a significant history of schizophrenia, diabetes mellitus, DVT/PE on home Eliquis; nonischemic cardiomyopathy who presents with a 1 day history of altered mental status in the setting of recently increased psychiatric medication. Acute encephalopathy At emergency departments VBG showed alkalosis and lactic acidosis. Most likely this does not explain her symptoms CBC and LFT was unremarkable. TSH and CPK has been ordered I had a conversation with Psychiatry Nurse Practitioner, Arianna Gatica and it is ok to hold patient's Risperdal and Benztropine. It appeared that patient may be having catatonia from her schizophrenia. Patient will be admitted tonight and observed. If no medical reason can explain her symptoms please contact counseling center (phone number [phone])to speak psychiatrist; and consider inpatient psychiatry admission. Lactic Acidosis This could be from metformin use or dehydration. Received IV bolus at emergency department. Continue maintenance IV hydration. Trend lactic acid. Hold Metformin Hypotension Systolic blood pressure was within 80s-90s on admission Received IV bolus at emergency department Continue normal saline maintenance infusion Home lisinopril, Lasix and Coreg held. Diabetes Mellitus On home liraglutide, and metformin Liraglutide and metformin held Correction scale insulin ordered. DVT/PE Eliquis continued DVT prophylaxis Not indicated. Continue Eliquis as above. Code Visit OBSV E&M: [id number] Initial observation care L3
--- NOTE | 2018-03-15 23:18 | NURSING ---
Patient present to floor nonverbal, per hospitalist this is how she was in ER. Per ER transporter radiology, family stated she recently started new medications. No family present to assist with history. Hospitalist believes this is a psych issue. Patient follows simple commands upon assessment i.e. opening eyes, squeezing hands. Made NPO at this time and consulted
[2018-03-15 23:23] LABS: CPK Total, Creatine Kinase 59 U/L (26-192); Thyroid Stim Hormone (TSH) 1.63 uIU/mL (0.358-3.74)
[2018-03-15 23:47] LABS: Reflex Lactate? Y
[2018-03-16] VITALS (11 sets, daily range): BP systolic 100–105; BP diastolic 54–65; PULSE 53–70; RESP 14–18; TEMP 36.6–37; O2SAT 95–96
--- NOTE | 2018-03-16 01:04 | ED.VISSUMM ---
- ER Visit Summary Date of Service: 03/16/18 Chief Complaint: Change of mental status History of Present Illness: The patient is a 48 F presenting for evaluation secondary change of mental status. Patient was fine earlier today, her states that at approximately 1740 came home and noted her to have altered mental status. He reports that she seemed lethargic, having some decreased responsiveness, and not acting herself. Patient has a history diabetes, congestive heart failure secondary to nonischemic cardiomyopathy, schizophrenia DVT and PE. Patient is on Eliquis. About a week ago the patient had a change in her Risperdal which was increased from 4 mg to 6 mg, and she had an addition of benztropine to her medication regimen. She has not had any infectious signs or symptoms recently such as fever cough nausea vomiting diarrhea dysuria. She has been complaining of any headache or weakness. She has no prior history of stroke. Review of systems otherwise negative. Physical Examination: Vital signs are notable for mediocre blood pressure is 94/63 otherwise patient's afebrile. Obese female no acute distress. Head normocephalic. PRL, EOMI moist mucous membranes no JVD. Heart was bradycardic and regular no murmurs. Lungs sounds clear. Abdomen soft nontender. Back was nontender. Extremities nontender nonedematous. Skin: No rash. Patient was alert follows commands, seems sedate, she somewhat answers questions but does not appear to be a phasic either receptive or expressive. 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 Test Results: CT brain negative. Chest x-ray shows right basilar interstitial changes. EKG shows a sinus rhythm of [address] segments normal T waves. CBC chemistry INR urinalysis troponin unremarkable. Venous blood gas shows respiratory alkalosis. Lactic acid 2.4. Emergency Department Course and Treatment: Patient presented for evaluation secondary to altered mental status. Patient's altered mental status really seems more consistent with a encephalopathy rather than a strokes of stroke team was not activated. Broad workup was obtained as noted above and shows only the patient to have a respiratory alkalosis. Repeat evaluation shows the patient to still have continued lethargy. She does not have any evidence of cogwheel rigidity, fever, or any concerns for serotonin syndrome or NMS. The etiology of the patient's encephalopathy is still unknown at this point I believe she requires admission. I discussed this with the hospitalist. Disposition: Admission Impression: 1. Encephalopathy This note was generated with atVenu dictation software. It may contain incorrect words, spelling, and punctuation that were not noted in review of the chart prior to signing ED Disposition - Plan for ED Patient: Disposition: Acute Care Hospital [facility] Chief Complaint: Confusion
--- NOTE | 2018-03-16 01:08 | ED.DCSUM_ITS ---
- ER Visit Summary Date of Service: 03/16/18 Chief Complaint: Change of mental status History of Present Illness: The patient is a 48 F presenting for evaluation secondary change of mental status. Patient was fine earlier today, her states that at approximately 1740 came home and noted her to have altered mental status. He reports that she seemed lethargic, having some decreased responsiveness, and not acting herself. Patient has a history diabetes, congestive heart failure secondary to nonischemic cardiomyopathy, schizophrenia DVT and PE. Patient is on Eliquis. About a week ago the patient had a change in her Risperdal which was increased from 4 mg to 6 mg, and she had an addition of benztropine to her medication regimen. She has not had any infectious signs or symptoms recently such as fever cough nausea vomiting diarrhea dysuria. She has been complaining of any headache or weakness. She has no prior history of stroke. Review of systems otherwise negative. Physical Examination: Vital signs are notable for mediocre blood pressure is 94/ 63 otherwise patient's afebrile. Obese female no acute distress. Head normocephalic. PRL, EOMI moist mucous membranes no JVD. Heart was bradycardic and regular no murmurs. Lungs sounds clear. Abdomen soft nontender. Back was nontender. Extremities nontender nonedematous. Skin: No rash. Patient was alert follows commands, seems sedate, she somewhat answers questions but does not appear to be a phasic either receptive or expressive. 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 Test Results: CT brain negative. Chest x-ray shows right basilar interstitial changes. EKG shows a sinus rhythm of [address] segments normal T waves. CBC chemistry INR urinalysis troponin unremarkable. Venous blood gas shows respiratory alkalosis. Lactic acid 2.4. Emergency Department Course and Treatment: Patient presented for evaluation secondary to altered mental status. Patient's altered mental status really seems more consistent with a encephalopathy rather than a strokes of stroke team was not activated. Broad workup was obtained as noted above and shows only the patient to have a respiratory alkalosis. Repeat evaluation shows the patient to still have continued lethargy. She does not have any evidence of cogwheel rigidity, fever, or any concerns for serotonin syndrome or NMS. The etiology of the patient's encephalopathy is still unknown at this point I believe she requires admission. I discussed this with the hospitalist. Disposition: Admission Impression: 1. Encephalopathy This note was generated with Globial dictation software. It may contain incorrect words, spelling, and punctuation that were not noted in review of the chart prior to signing ED Disposition - Plan for ED Patient: Disposition: Acute Care Hospital [facility] Chief Complaint: Confusion
[2018-03-16] MEDS: 0.9% Normal Saline 1,000 ML 75 ML IV ×2 (01:21→12:46)
[2018-03-16 05:31] LABS: Bedside Glucose 92 mg/dL (70-110)
[2018-03-16 07:15] LABS: Anion Gap 7 (5-15); BUN 15 mg/dL (7-18); BUN/Creat Ratio 25.5 RATIO (10-20); Calcium,Total 7.8 mg/dL (8.5-10.1); Chloride 109 mmol/L (98-107); Creatinine, Serum 0.59 mg/dL (0.55-1.02); EST Glomerular Filtration Rate 115 mL/min (>60); Est Glom Filt Rate - Afr Amer 139 mL/min (>60); Estimated Creatinine Clearance 98.51 ml/min; Glucose 83 mg/dL (74-106); Potassium 4.3 mmol/L (3.5-5.1); Sodium Level 141 mmol/L (136-145)
[2018-03-16] MEDS: APIXABAN 5 MG TABLET PO ×2 (09:37→21:00)
[2018-03-16 11:46] LABS: Bedside Glucose 91 mg/dL (70-110)
--- NOTE | 2018-03-16 16:31 | PCM.PN.HOSP ---
Patient Problems: Active and Suspected Problems (Last Reviewed 03/15/18 @ 22:38 by Quinten Trejo MD) Acute encephalopathy (Acute) Subjective: feels better. thinks her issues were related to stress. notified by nursing of urinary retention. PVR of 500cc, though that was without urinating. Vitals/I&O's: Vital Signs Temp Pulse Resp BP Pulse Ox 37.0 C 59 L 18 100/65 96 03/16/18 09:35 03/16/18 11:03 03/16/18 09:35 03/16/18 09:35 03/16/18 09:35 Oxygen Delivery Method Room Air Weight: 104 kg Body Mass Index (BMI) 39.1 Intake and Output for Last 24 Hours 03/14/18 03/15/18 03/16/18 23:59 23:59 23:59 Intake Total 1126 / 1126 1690 / 1690 Output Total 700 / 700 Balance 1126 / 1126 990 / 990 General: Alert, No apparent distress, - - groggy HEENT: Atraumatic, Normocephalic Oral: Moist Mucosa, No Gingival or Mucosal Lesions/ Ulcerations Neck: No Nodes, Thyroid Normal Size and Texture Lungs: Clear to auscultation, Normal air movement, No rhonchi, No wheeze Cardiovascular: Regular rate, Regular Rhythm, Normal S1, Normal S2, No murmurs Abdomen: Bowel Sounds Present, Soft, Non Tender, Non-Distended, No Hepato-splenomegaly Extremities: No edema, No Calf Tenderness Neurological: - - cautious gait. Psych/Mental Status: Appropriate Laboratory Results 03/16/18 00:10: Lactic Acid 1.0 03/16/18 05:10: Sodium 141, Potassium 4.3, Chloride 109 H, Carbon Dioxide 25.0, Anion Gap 7, BUN 15, Creatinine 0.59, Estim Creat Clear Calc 98.51, Est GFR (MDRD) Af Amer 139, Est GFR (MDRD) Non-Af 115, BUN/Creatinine Ratio 25.5 H, Glucose 83, Calcium 7.8 L 03/16/18 05:23: POC Glucose 92 03/16/18 11:40: POC Glucose 91 Current Medications Apixaban (Eliquis) 5 mg PO BID ROSETTE Last Admin: 03/16/18 09:37 Dose: 5 mg Bisacodyl (Dulcolax) 5 mg PO DAILY PRN PRN PRN Reason: Constipation Dextrose (D50w Syringe) 0 gm IV X1 PRN; Protocol PRN Reason: Hypoglycemia Glucagon () 1 mg IM .X1 PRN PRN Reason: Hypoglycemia Sodium Chloride () 1,000 mls @ 75 mls/hr IV .[id number] [facility] Last Admin: 03/16/18 12:46 Dose: 75 mls/hr Insulin Human Lispro (Humalog Kwikpen (Bkc)) 0 unit SQ Q6 ROSETTE PRN Reason: Protocol Last Admin: 03/16/18 11:43 Dose: Not Given Magnesium Hydroxide (Milk Of Magnesia) 30 ml PO DAILY PRN PRN Reason: Constipation Sodium Chloride () 5 - 30 ml IV UD PRN PRN Reason: SALINE FLUSH Medical Necessity - Tobacco Use Smoking Status: Never smoker Assessment/Plan All Active Problems (Last Reviewed 03/15/18 @ 22:38 by Quinten Trejo MD) Diarrhea (Resolved) Acute encephalopathy (Acute) Nausea & vomiting (Resolved) 1. suspected toxic encephalopathy recently risderdal was increased from 4 to 6mg QHS and benztropine. Clinically improved, but still appears groggy Will continue to hold those medications for now. DANA Gatica's nurse, who reviewed the patient's notes with me, and Gavi's note specified to cut risperdal back to 4mg. I will also hold the benztropine, as i feel the patient's symptoms are not just due to the increase in risperdal. 2. urinary retention will monitor did have up 750cc last night. hold off on catheterization, unless pt cannot urinate. 3. Lactic acidosis resolved unclear etiology (unclear indication for checking it anyway) no additional work up at this time. 4. h/o VTE continue Eliquis. Code Visit Inpatient E&M: 93127 Subs Hosp L2
--- NOTE | 2018-03-16 16:39 | PN_ITS ---
Patient Problems: Active and Suspected Problems (Last Reviewed 03/15/18 @ 22:38 by Quinten Trejo MD) Acute encephalopathy (Acute) Subjective: feels better. thinks her issues were related to stress. notified by nursing of urinary retention. PVR of 500cc, though that was without urinating. Vitals/I&O's: Vital Signs Temp Pulse Resp BP Pulse Ox 37.0 C 59 L 18 100/65 96 03/16/18 09:35 03/16/18 11:03 03/16/18 09:35 03/16/18 09:35 03/16/18 09:35 Oxygen Delivery Method Room Air Weight: 104 kg Body Mass Index (BMI) 39.1 Intake and Output for Last 24 Hours 03/14/18 03/15/18 03/16/18 23:59 23:59 23:59 Intake Total 1126 / 1126 1690 / 1690 Output Total 700 / 700 Balance 1126 / 1126 990 / 990 General: Alert, No apparent distress, - - groggy HEENT: Atraumatic, Normocephalic Oral: Moist Mucosa, No Gingival or Mucosal Lesions/ Ulcerations Neck: No Nodes, Thyroid Normal Size and Texture Lungs: Clear to auscultation, Normal air movement, No rhonchi, No wheeze Cardiovascular: Regular rate, Regular Rhythm, Normal S1, Normal S2, No murmurs Abdomen: Bowel Sounds Present, Soft, Non Tender, Non-Distended, No Hepato- splenomegaly Extremities: No edema, No Calf Tenderness Neurological: - - cautious gait. Psych/Mental Status: Appropriate Laboratory Results 03/16/18 00:10: Lactic Acid 1.0 03/16/18 05:10: Sodium 141, Potassium 4.3, Chloride 109 H, Carbon Dioxide 25.0, Anion Gap 7, BUN 15, Creatinine 0.59, Estim Creat Clear Calc 98.51, Est GFR ( MDRD) Af Amer 139, Est GFR (MDRD) Non-Af 115, BUN/Creatinine Ratio 25.5 H, Glucose 83, Calcium 7.8 L 03/16/18 05:23: POC Glucose 92 03/16/18 11:40: POC Glucose 91 Current Medications Apixaban (Eliquis) 5 mg PO BID ROSETTE Last Admin: 03/16/18 09:37 Dose: 5 mg Bisacodyl (Dulcolax) 5 mg PO DAILY PRN PRN PRN Reason: Constipation Dextrose (D50w Syringe) 0 gm IV X1 PRN; Protocol PRN Reason: Hypoglycemia Glucagon () 1 mg IM .X1 PRN PRN Reason: Hypoglycemia Sodium Chloride () 1,000 mls @ 75 mls/hr IV .[id number] [facility] Last Admin: 03/16/18 12:46 Dose: 75 mls/hr Insulin Human Lispro (Humalog Kwikpen (Bkc)) 0 unit SQ Q6 ROSETTE PRN Reason: Protocol Last Admin: 03/16/18 11:43 Dose: Not Given Magnesium Hydroxide (Milk Of Magnesia) 30 ml PO DAILY PRN PRN Reason: Constipation Sodium Chloride () 5 - 30 ml IV UD PRN PRN Reason: SALINE FLUSH Medical Necessity - Tobacco Use Smoking Status: Never smoker Assessment/Plan All Active Problems (Last Reviewed 03/15/18 @ 22:38 by Quinten Trejo MD) Diarrhea (Resolved) Acute encephalopathy (Acute) Nausea & vomiting (Resolved) 1. suspected toxic encephalopathy * recently risderdal was increased from 4 to 6mg QHS and benztropine. * Clinically improved, but still appears groggy * Will continue to hold those medications for now. * DANA Gatica's nurse, who reviewed the patient's notes with me, and Gavi's note specified to cut risperdal back to 4mg. * I will also hold the benztropine, as i feel the patient's symptoms are not just due to the increase in risperdal. 2. urinary retention * will monitor * did have up 750cc last night. * hold off on catheterization, unless pt cannot urinate. 3. Lactic acidosis * resolved * unclear etiology (unclear indication for checking it anyway) * no additional work up at this time. 4. h/o VTE * continue Eliquis. Code Visit Inpatient E&M: 23963 Subs Hosp L2
[2018-03-16 16:56] LABS: Bedside Glucose 112 mg/dL (70-110)
[2018-03-16 23:11] LABS: Bedside Glucose 97 mg/dL (70-110)
[2018-03-17] VITALS (10 sets, daily range): BP systolic 99–107; BP diastolic 59–70; PULSE 46–71; RESP 14–18; TEMP 36.6–36.8; O2SAT 93–96
[2018-03-17] MEDS: 0.9% Normal Saline 1,000 ML 75 ML IV ×2 (02:39→15:37)
[2018-03-17 06:55] LABS: Bedside Glucose 95 mg/dL (70-110)
[2018-03-17] MEDS: Glucerna Shake 120 ML LIQUID PO ×3 (08:13→18:51)
[2018-03-17] MEDS: APIXABAN 5 MG TABLET PO ×2 (09:31→21:10)
--- NOTE | 2018-03-17 13:08 | CASEMGMT ---
Social Work: John Paul, unit secretay, states that Dr. Dior would crisis consulted due to patient hearing voices that are threatening to kill her. TC to crisis. Spoke with Hugo Solis. Hugo states some one from crisis will be out today to evaluate. Cayla, extension service specialist in charge aware of that crisis was called and that Hugo Solis states some one from crisis will see patient today. SEPIDEH Campuzano
--- NOTE | 2018-03-17 15:54 | PCM.PN.HOSP ---
Patient Problems: Active and Suspected Problems (Last Reviewed 03/15/18 @ 22:38 by Quinten Trejo MD) Acute encephalopathy (Acute) Subjective: hearing voices today. Voices say they want to kill her (the patient). Patient states that she hears voices intermittently. Last occurrence was 1 month ago. Previously the voice have said that they want to kill her. Vitals/I&O's: Vital Signs Temp Pulse Resp BP Pulse Ox 36.8 C 62 18 101/62 94 03/17/18 14:10 03/17/18 14:10 03/17/18 14:10 03/17/18 14:10 03/17/18 14:10 Oxygen Delivery Method Room Air Weight: 104 kg Body Mass Index (BMI) 39.1 Intake and Output for Last 24 Hours 03/15/18 03/16/18 03/17/18 23:59 23:59 23:59 Intake Total 1126 / 1126 2868 / 2868 1261 / 1261 Output Total 700 / 700 Balance 1126 / 1126 2168 / 2168 1261 / 1261 General: Alert, Cooperative, No apparent distress HEENT: Atraumatic, Normocephalic Oral: Moist Mucosa, No Gingival or Mucosal Lesions/ Ulcerations Neck: No Nodes, Thyroid Normal Size and Texture Lungs: Clear to auscultation, Normal air movement, No rhonchi, No wheeze Cardiovascular: Regular rate, Regular Rhythm, Normal S1, Normal S2, No murmurs Abdomen: Bowel Sounds Present, Soft, Non Tender, Non-Distended, No Hepato-splenomegaly Extremities: No edema, No Calf Tenderness Skin: No rashes, No breakdown Musculoskeletal: No Tenderness to Palpation of Joints or Extremities, No Muscle Wasting Psych/Mental Status: Flat Affect Laboratory Results 03/16/18 16:53: POC Glucose 112 H 03/16/18 23:04: POC Glucose 97 03/17/18 05:25: POC Glucose 95 Current Medications Apixaban (Eliquis) 5 mg PO BID ROSETTE Last Admin: 03/17/18 09:31 Dose: 5 mg Bisacodyl (Dulcolax) 5 mg PO DAILY PRN PRN PRN Reason: Constipation Dextrose (D50w Syringe) 0 gm IV X1 PRN; Protocol PRN Reason: Hypoglycemia Glucagon () 1 mg IM .X1 PRN PRN Reason: Hypoglycemia Sodium Chloride () 1,000 mls @ 75 mls/hr IV .[id number] [facility] Last Admin: 03/17/18 15:37 Dose: 75 mls/hr Insulin Human Lispro (Humalog Kwikpen (Bkc)) 0 unit SQ Q6 ROSETTE PRN Reason: Protocol Last Admin: 03/17/18 11:19 Dose: Not Given Magnesium Hydroxide (Milk Of Magnesia) 30 ml PO DAILY PRN PRN Reason: Constipation Nutritional Formula (Lactose Free) (Glucerna Shake) 120 ml PO TIDCM [facility] Last Admin: 03/17/18 11:17 Dose: 120 ml Sodium Chloride () 5 - 30 ml IV UD PRN PRN Reason: SALINE FLUSH Medical Necessity - Tobacco Use Smoking Status: Never smoker Assessment/Plan All Active Problems (Last Reviewed 03/15/18 @ 22:38 by Quinten Trejo MD) Diarrhea (Resolved) Acute encephalopathy (Acute) Nausea & vomiting (Resolved) 1. suspected toxic encephalopathy improved overall recently risderdal was increased from 4 to 6mg QHS and benztropine. Will continue to hold those medications for now. DANA Gatica's nurse, who reviewed the patient's notes with me, and Gavi's note specified to cut risperdal back to 4mg. I will also hold the benztropine, as i feel the patient's symptoms are not just due to the increase in risperdal. 2. urinary retention will monitor did have up 750cc last night. hold off on catheterization, unless pt cannot urinate. 3. Lactic acidosis resolved unclear etiology (unclear indication for checking it anyway) no additional work up at this time. 4. h/o VTE continue Eliquis. 5. Schizophrenia hearing voices may be her baseline will have Crisis to eval. Disposition will be pending Crisis' evaluation. Code Visit Inpatient E&M: 07451 Subs Hosp L2
--- NOTE | 2018-03-17 15:58 | PN_ITS ---
Patient Problems: Active and Suspected Problems (Last Reviewed 03/15/18 @ 22:38 by Quinten Trejo MD) Acute encephalopathy (Acute) Subjective: hearing voices today. Voices say they want to kill her (the patient). Patient states that she hears voices intermittently. Last occurrence was 1 month ago. Previously the voice have said that they want to kill her. Vitals/I&O's: Vital Signs Temp Pulse Resp BP Pulse Ox 36.8 C 62 18 101/62 94 03/17/18 14:10 03/17/18 14:10 03/17/18 14:10 03/17/18 14:10 03/17/18 14:10 Oxygen Delivery Method Room Air Weight: 104 kg Body Mass Index (BMI) 39.1 Intake and Output for Last 24 Hours 03/15/18 03/16/18 03/17/18 23:59 23:59 23:59 Intake Total 1126 / 1126 2868 / 2868 1261 / 1261 Output Total 700 / 700 Balance 1126 / 1126 2168 / 2168 1261 / 1261 General: Alert, Cooperative, No apparent distress HEENT: Atraumatic, Normocephalic Oral: Moist Mucosa, No Gingival or Mucosal Lesions/ Ulcerations Neck: No Nodes, Thyroid Normal Size and Texture Lungs: Clear to auscultation, Normal air movement, No rhonchi, No wheeze Cardiovascular: Regular rate, Regular Rhythm, Normal S1, Normal S2, No murmurs Abdomen: Bowel Sounds Present, Soft, Non Tender, Non-Distended, No Hepato- splenomegaly Extremities: No edema, No Calf Tenderness Skin: No rashes, No breakdown Musculoskeletal: No Tenderness to Palpation of Joints or Extremities, No Muscle Wasting Psych/Mental Status: Flat Affect Laboratory Results 03/16/18 16:53: POC Glucose 112 H 03/16/18 23:04: POC Glucose 97 03/17/18 05:25: POC Glucose 95 Current Medications Apixaban (Eliquis) 5 mg PO BID [facility]ETTE Last Admin: 03/17/18 09:31 Dose: 5 mg Bisacodyl (Dulcolax) 5 mg PO DAILY PRN PRN PRN Reason: Constipation Dextrose (D50w Syringe) 0 gm IV X1 PRN; Protocol PRN Reason: Hypoglycemia Glucagon () 1 mg IM .X1 PRN PRN Reason: Hypoglycemia Sodium Chloride () 1,000 mls @ 75 mls/hr IV .[id number] [facility] Last Admin: 03/17/18 15:37 Dose: 75 mls/hr Insulin Human Lispro (Humalog Kwikpen (Bkc)) 0 unit SQ Q6 ROSETTE PRN Reason: Protocol Last Admin: 03/17/18 11:19 Dose: Not Given Magnesium Hydroxide (Milk Of Magnesia) 30 ml PO DAILY PRN PRN Reason: Constipation Nutritional Formula (Lactose Free) (Glucerna Shake) 120 ml PO TIDCM [facility] Last Admin: 03/17/18 11:17 Dose: 120 ml Sodium Chloride () 5 - 30 ml IV UD PRN PRN Reason: SALINE FLUSH Medical Necessity - Tobacco Use Smoking Status: Never smoker Assessment/Plan All Active Problems (Last Reviewed 03/15/18 @ 22:38 by Quinten Trejo MD) Diarrhea (Resolved) Acute encephalopathy (Acute) Nausea & vomiting (Resolved) 1. suspected toxic encephalopathy * improved overall * recently risderdal was increased from 4 to 6mg QHS and benztropine. * Will continue to hold those medications for now. * DANA Gatica's nurse, who reviewed the patient's notes with me, and Gavi's note specified to cut risperdal back to 4mg. * I will also hold the benztropine, as i feel the patient's symptoms are not just due to the increase in risperdal. 2. urinary retention * will monitor * did have up 750cc last night. * hold off on catheterization, unless pt cannot urinate. 3. Lactic acidosis * resolved * unclear etiology (unclear indication for checking it anyway) * no additional work up at this time. 4. h/o VTE * continue Eliquis. 5. Schizophrenia * hearing voices * may be her baseline * will have Crisis to eval. * Disposition will be pending Crisis' evaluation. Code Visit Inpatient E&M: 36481 Subs Hosp L2
[2018-03-17 16:25] LABS: Bedside Glucose 98 mg/dL (70-110)
[2018-03-17 17:06] LABS: Bedside Glucose 90 mg/dL (70-110)
--- NOTE | 2018-03-17 19:51 | NURSING ---
03/17/18 0806 Assessment completed. Pt A&Ox1 at this time. States she is having difficulty finding her words. She states she is ok. She then states she has been hearing voices and they're telling her bad things. I then asked if she actively is having thoughts about hurting herself or others. Pt denies having these feelings. Will continue to monitor.
[2018-03-17 21:21] LABS: Bedside Glucose 93 mg/dL (70-110)
[2018-03-18 00:39] VITALS: PULSE 60
[2018-03-18 02:10] VITALS: BP 98/47; PULSE 62; RESP 16; TEMP 36.6; O2SAT 95
--- NOTE | 2018-03-18 03:14 | NURSING ---
Report called to Bronson at [facility] for Psychiatry at this time. Aware that transport will not be at our facility till 729. Receiving facility rn made aware that an update will be provided prior to pt leaving our facility. Rn at receiving facility with no further questions or concerns at this time. Pt also aware of plan of care.
[2018-03-18 03:40] VITALS: PULSE 61
[2018-03-18 06:43] VITALS: BP 97/56; PULSE 59; RESP 18; TEMP 36.7; O2SAT 98
--- NOTE | 2018-03-18 06:47 | NURSING ---
Pts Behzad aware of pts planned transfer this am to [facility]. Aware that transport will pick pt up at 0730 and contact number given to .
--- NOTE | 2018-03-18 06:57 | NURSING ---
Updated report given to Bronson beatty at psych facility at this time.
[2018-03-18 07:06] LABS: Bedside Glucose 100 mg/dL (70-110)
--- NOTE | 2018-03-18 12:31 | DCINST_ITS ---
You will use the following diet at home:: Calorie/Carbohydrate Controlled ( specify 1200, 1400, etc) - 1800 kcal/day Your food should be the consistency of: Regular Your liquids should be the consistency of: Regular/Thin Discharge Activity: Return to Normal Activity Allergies/Adverse Reactions: Allergies No Known Allergies Allergy (Verified 02/27/18 12:50) Medications to take at Discharge Carvedilol [Coreg (Beta Gabriela)] 3.125 mg PO BID 10/29/14 Citalopram [Celexa] 20 mg PO QHS 08/25/15 Lisinopril [Zestril] 2.5 mg PO DAILY 08/25/15 Fluticasone 0.05% [Flonase Nasal Perdido] 1 spray NASAL DAILY PRN 03/09/17 Furosemide 40 mg PO DAILY 03/09/17 Risperidone [Risperdal] 6 mg PO QHS 03/09/17 Apixaban [Eliquis] 5 mg PO BID #66 tab 03/10/17 liraglutide 0.6 mg/0.1 mL (18 mg/3 mL) subcutaneous pen injector 0.6 mg SC QDAY PRN 01/03/18 metformin 1,000 mg tablet 1,000 mg PO QDAY tab 01/03/18 Benztropine [Cogentin] 0.5 mg PO BID 03/15/18 Primary Care Physician: Paty Catalan DO [Primary Care Provider] - Within 2 Weeks Test Results: Test results from this visit will be discussed in further detail at your follow- up appointment, if applicable. Please Follow Up With: Arianna Gatica NP-C When: 1-2 weeks Proposed Discharge Date: 03/18/18
--- NOTE | 2018-03-18 12:33 | DS.PCM_ITS ---
Discharge Date and Diagnosis Date of Admission: 03/15/18 Date of Discharge: 03/18/18 - Secondary Discharge Diagnosis Chronic Problems (Last Reviewed 03/15/18 @ 22:38 by Quinten Trejo MD) BALDEMAR (obstructive sleep apnea) (Chronic) CHF (congestive heart failure) (Chronic) HTN (hypertension) (Chronic) DVT (deep venous thrombosis) (Chronic) Hospital Course and Treatment Imaging Results: Clinical Impression(s) from Imaging Studies Brain CT 03/15/18 19:14 IMPRESSION: No acute intracranial abnormality. Electronically Signed: Yash Hong, at 20:46 EDT Tel , Service support , Chest X-Ray 03/15/18 19:14 IMPRESSION: Mild right basilar interstitial prominence. Electronically Signed: Stuart Wagner DO at 19:50 EDT Tel [phone], Service support , Consultations 03/17/18 13:26 Consult: Mental Health/Crisis Routine Reason for consult?: hallucinations Date Notified:: 03/17/18 Time notified:: 13:26 Operations: None Procedures: None Summary of Care Provided: The patient is a 48 year old F presents with confusion. [place] related with the patient's increase her Risperdal as well as concomitant starting of Cogentin. Those medications were held and patient's mental status did improve. Patient was monitored and then was looked to be discharged on the , patient was complaining of voices in her head that were wanting to kill her. Crisis was involved at that point time patient was patient. Decision was to take the patient to an inpatient psychiatric unit for further management. Patient was discharged to an inpatient psychiatric unit this morning before a chance to see her. 1. suspected toxic encephalopathy * improved overall * recently risderdal was increased from 4 to 6mg QHS and benztropine. * Will continue to hold those medications for now. * DANA Gatica's nurse, who reviewed the patient's notes with me, and Gavi's note specified to cut risperdal back to 4mg. * I will also hold the benztropine, as i feel the patient's symptoms are not just due to the increase in risperdal. 2. urinary retention * will monitor * did have up 750cc last night. * hold off on catheterization, unless pt cannot urinate. 3. Lactic acidosis * resolved * unclear etiology (unclear indication for checking it anyway) * no additional work up at this time. 4. h/o VTE * continue Eliquis. 5. Schizophrenia * hearing voices * may be her baseline * will have Crisis to eval. * Disposition will be pending Crisis' evaluation. 6. Suicidal ideation: * to inpatient psych unit for further management.[] Discharge Diet: 1800 Calorie Control Diet Discharge Activity: Return to Normal Activity Home Medications: Medications to take at Discharge Carvedilol [Coreg (Beta Gabriela)] 3.125 mg PO BID 10/29/14 Citalopram [Celexa] 20 mg PO QHS 08/25/15 Lisinopril [Zestril] 2.5 mg PO DAILY 08/25/15 Fluticasone 0.05% [Flonase Nasal [place]] 1 spray NASAL DAILY PRN 03/09/17 Furosemide 40 mg PO DAILY 03/09/17 Risperidone [Risperdal] 6 mg PO QHS 03/09/17 Apixaban [Eliquis] 5 mg PO BID #66 tab 03/10/17 liraglutide 0.6 mg/0.1 mL (18 mg/3 mL) subcutaneous pen injector 0.6 mg SC QDAY PRN 01/03/18 metformin 1,000 mg tablet 1,000 mg PO QDAY tab 01/03/18 Benztropine [Cogentin] 0.5 mg PO BID 03/15/18 Primary Care Physician: Paty Catalan DO [Primary Care Provider] - Within 2 Weeks Please Follow Up With: Arianna Gatica NP-C When: 1-2 weeks Disposition: Psych Hospital or Unit Patient Condition:: Stable Medical Necessity - Tobacco Use Smoking Status: Never smoker Meaningful Use Info Meaningful Use Diagnoses (Choose all that apply): None applicable
== END 2018-03-18 08:15 ==
LOC: ED 20:15 → PCU 22:08
PROVIDERS: Admitting Provider Hospitalist; Emergency Provider Emergency Medicine; Family Provider Internal Medicine; PCP Internal Medicine
DX: F20.9 Schizophrenia, unspecified (principal); E87.2 Acidosis; R45.851 Suicidal ideations; R33.9 Retention of urine, unspecified; I50.9 Heart failure, unspecified; Z86.711 Personal history of pulmonary embolism; Z86.718 Personal history of other venous thrombosis and embolism; I42.9 Cardiomyopathy, unspecified; Z79.899 Other long term (current) drug therapy; Z79.01 Long term (current) use of anticoagulants; G47.33 Obstructive sleep apnea (adult) (pediatric); I11.0 Hypertensive heart disease with heart failure; G93.40 Encephalopathy, unspecified; R47.89 Other speech disturbances
CPT/HCPCS: 36415; 70450; 71045; 80048; 80053; 80307; 80320; 81001; 82550; 82803; 82962; 83605; 84443; 84484; 85025; 85610; 85730; 92507; 93005; 96360; 96361; 97162; 97166; 97530; 97802; 99218; 99284; J7030; P9612; A4216; G0378; G0480

== ENCOUNTER 2018-06-26 02:23 | Emergency (ER) | payer OTHER, MEDICARE, SELFPAY ==
[2018-06-26 02:24] VITALS: BP 86/73; PULSE 73; RESP 22; TEMP 36.4; O2SAT 98; BMI 40.7
[2018-06-26 02:36] VITALS: BP 89/56; PULSE 66; RESP 15; O2SAT 97
--- NOTE | 2018-06-26 02:45 | EKG12_ITS ---
Test Reason : CP Blood Pressure : / mmHG Vent. Rate : 074 BPM Atrial Rate : 074 BPM P-R Int : 158 ms QRS Dur : 088 ms QT Int : 424 ms P-R-T Axes : 025 -09 005 degrees QTc Int : 470 ms Normal sinus rhythm Normal ECG Confirmed by EDDY LEON, BLACK ([id number]), staff editor NAYANA SAWANT ([id number]) on 06/27/2018 12:49:00 PM Referred By: GARRICK Confirmed By:BLACK KAM MD
--- NOTE | 2018-06-26 02:47 | ED.DCSUM_ITS ---
- ER Visit Summary Date of Service: 06/26/18 Chief Complaint: [] Chest pain History of Present Illness: The patient is a 48 F patient stated she has had chest pain for last 4 hours but is been coming and going for the last 24-48 hours. Over the last 4 hours is been continuous aching. Located the right side of her chest. Current severity is mild. Maximum severity is mild to moderate. Worsened by nothing. Relieved by nothing. No home treatment. No nausea vomiting diaphoresis dyspnea or other associated symptoms. She is on Eliquis for history of remote pulmonary embolism. She stated she has had chest pain like this in the past. She had a negative stress test 2 years ago per patient. She stated she had a heart cath in early 1999 that was normal. She does not have cardiac stents. She does have cardiac risk factors including hypertension and diabetes. No recent illness ROS General: Denies fever, chills, sweats Eyes: Denies visual changes, blurred vision, double vision ENT: Denies ear pain, rhinorrhea, sore throat Cardiovascular: Denies palpitations, heart racing Respiratory: Denies dyspnea, cough, sputum, dyspnea on exertion, orthopnea,PND GI: Denies abdominal pain, nausea, vomiting, diarrhea, constipation, melena : Denies dysuria, hematuria, frequency Musculoskeletal: Denies myalgias, arthralgias, neck pain, back pain Skin: Denies rash, abscess, abrasions Neuro: Denies headache, weakness, paresthesia Psych: Denies depression, anxiety Endo: Denies polyuria, polydipsia, polyphagia Heme: Denies easy bruising, easy bleeding, lymphadenopathy Allergy: Denies hives, swelling Physical Examination: [] Vital signs reviewed General: Well-nourished well-developed Head: Normocephalic atraumatic Eyes: Pupils equal round and reactive to light extraocular movements intact ENT: TMs clear no hemotympanum no trauma Neck: Nontender full range of motion Cardiovascular: Regular rate rhythm no murmurs normal S1-S2 Respiratory: No distress clear to auscultation bilaterally chest nontender Abdomen: Soft nontender nondistended normal bowel sounds no masses Back: Nontender no CVA tenderness Extremities: Nontender active range of motion ?4 extremities no trauma Skin: Normal color no trauma Neuro alert oriented cranial nerves II through XII intact normal strength sensation reflexes Test Results: [] Emergency Department Course and Treatment: [] EKG shows sinus rhythm at a rate of 74. T wave inversion in inferior lead III that is unchanged from previous. No acute ischemic findings. Patient Given aspirin. Lab work and chest x-ray obtained. Lab work showed no significant abnormalities. CBC normal. Chemistries normal except creatinine 1.0 calcium 8.4 troponin negative chest x- ray normal. On reevaluation she is pain-free resting comfortably. She does not want to be admitted. I have a low suspicion for cardiac cause of the symptoms. She does have a significant cardiac history. Her last stress test was 2 years ago. I did discuss being admitted for stress test and she would like to go home. She understands the risk of doing this. She will return if she worsens. Blood pressure 115 systolic Treatment Plan: [] Disposition: [] Impression: [] Atypical chest pain This note was generated with [employer] dictation software. It may contain incorrect words, spelling, and punctuation that were not noted in review of the chart prior to signing ED Disposition - Plan for ED Patient: Chief Complaint: Chest Pain Referrals: Paty Catalan DO [Primary Care Provider] -
[2018-06-26 02:49] VITALS: O2SAT 93
[2018-06-26] MEDS: Aspirin 81 MG TAB.CHEW 324 MG PO (02:50)
--- NOTE | 2018-06-26 03:00 | RAD_ITS ---
HISTORY: CHEST PAIN SINCE LAST EVENING. HX HTN EXAM: XR Chest 2 Views: COMPARISON: 03/15/2018 and 06/02/2017 FINDINGS: EKG leads in place. Chronic mild elevation of the right hemidiaphragm and stable prominence of the right infrahilar bronchovascular markings. No acute infiltrate. Left lung appears clear. Normal heart size. No vascular congestion or pleural effusion. No pneumothorax. The bony thorax appears intact. RAD/Chest PA and Lateral IMPRESSION: No acute disease or significant change. at 0325 Reported and signed by: Jun Oneil MD Electronically Signed: Jun Oneil, at 3:24 EST Tel , Service support ,
[2018-06-26 03:04] LABS: Absolute Lymphocyte Count 2.44 X10^3/ul (0.83-4.51); Absolute Neutrophil Count 4.9 X10^3/uL (2.0-7.7); Basophil# 0.01 X10^3/uL; Basophil% 0.1 % (0-1); Eosinophil# 0.41 X10^3/uL; Eosinophils% 4.9 % (0-5); Hematocrit 39.4 % (37-47); Hemoglobin 12.8 g/dl (12.0-15.0); Lymphocyte # 2.44 X10^3/ul (4.0); Lymphocyte % 29.2 % (19-41); Mean Corp Hgb Conc 32.5 g/gl (32-36); Mean Corpuscular Hgb 30.8 pg (27.0-32.0); Mean Corpuscular Volume 94.7 fL (81-99); Mean Platelet Vol. 9.7 fl (6.2-12.0); Monocyte# 0.62 X10^3/uL; Monocyte% 7.4 % (0-10); Neutrophil # 4.87 X10^3/uL (2.7-7.7); Neutrophil % 58.3 % (47-70); Platelet Count 245 K/mm3 (150-450); RBC Distribution Width CV 13.2 % (11.6-14.6); RBC Distribution Width SD 45.7 fl (35.1-43.9); Red Blood Count 4.16 M/mm3 (4.2-5.4); White Blood Count 8.4 K/mm3 (4.4-11.0)
[2018-06-26 03:10] LABS: POSITIVE COUNT NO; POSITIVE DIFFERENTIAL NO; POSITIVE MORPHOLOGY NO
[2018-06-26 03:18] LABS: Anion Gap 11 (5-15); BUN 25 mg/dL (7-18); BUN/Creat Ratio 23.8 RATIO (10-20); Calcium,Total 8.4 mg/dL (8.5-10.1); Chloride 102 mmol/L (98-107); Creatinine, Serum 1.05 mg/dL (0.55-1.02); EST Glomerular Filtration Rate 59 mL/min (>60); Est Glom Filt Rate - Afr Amer 71 mL/min (>60); Estimated Creatinine Clearance 55.35 ml/min; Glucose 121 mg/dL (74-106); Potassium 3.7 mmol/L (3.5-5.1); Sodium Level 140 mmol/L (136-145)
--- NOTE | 2018-06-26 03:32 | ED.DEP ---
ED Disposition - Plan for ED Patient: Disposition: Home or Assisted Living Chief Complaint: Chest Pain Instructions: ED Chest Pain Atypical Unkn Cause Referrals: Paty Catalan DO [Primary Care Provider] -
[2018-06-26 03:44] VITALS: BP 109/59; PULSE 74; RESP 12; O2SAT 94
== END 2018-06-26 03:45 | disposition home or self-care (01) ==
PROVIDERS: Emergency Provider Emergency Medicine; Family Provider Internal Medicine; PCP Internal Medicine
DX: R07.89 Other chest pain (principal); I11.0 Hypertensive heart disease with heart failure; I50.9 Heart failure, unspecified; E11.9 Type 2 diabetes mellitus without complications; F31.9 Bipolar disorder, unspecified; F20.9 Schizophrenia, unspecified; Z86.718 Personal history of other venous thrombosis and embolism; Z86.711 Personal history of pulmonary embolism; Z79.01 Long term (current) use of anticoagulants; Z79.84 Long term (current) use of oral hypoglycemic drugs; Z79.899 Other long term (current) drug therapy
CPT/HCPCS: 71046; 80048; 84484; 85025; 93005; 99285; A4216

== ENCOUNTER 2018-07-09 21:19 | Inpatient (IN) | payer OTHER, MEDICARE, SELFPAY ==
[2018-07-09 21:21] VITALS: BP 99/74; PULSE 74; RESP 16; TEMP 36.4; O2SAT 96; BMI 40.1
[2018-07-09 21:40] LABS: Bedside Glucose 92 mg/dL (70-110)
--- NOTE | 2018-07-09 21:42 | CT_ITS ---
STUDY: CT BRAIN WITHOUT CONTRAST REASON FOR EXAM: Female, 48 years old. Altered mental status. RADIATION DOSAGE (If Supplied By Facility): CTDIvol = ( 44.99 ) mGy, DLP = ( 829.85 ) mGycm TECHNIQUE: Transaxial CT imaging of the brain was performed without administration of intravenous contrast material. Individualized dose optimization techniques were used for this CT. COMPARISON: 03/15/2018. FINDINGS: Normal soft tissue structures. Normal calvarium. Normal size ventricles and extra-axial spaces for the patient's age. Normal white matter tracts of the cerebral hemispheres. Normal basal ganglia and thalami. Normal brainstem. Normal cerebellum. There is no intracranial hemorrhage. There are no findings of an acute ischemic infarction. Normal visualized paranasal sinuses. CT/Brain/Head without Contrast IMPRESSION: Normal unenhanced CT scan of the brain. Electronically Signed: Anna Hughes MD at 22:43 EST Tel , Service support ,
--- NOTE | 2018-07-09 21:43 | EKG12_ITS ---
Test Reason : ALT LOC Blood Pressure : / mmHG Vent. Rate : 069 BPM Atrial Rate : 069 BPM P-R Int : 164 ms QRS Dur : 092 ms QT Int : 424 ms P-R-T Axes : 043 -11 025 degrees QTc Int : 454 ms Normal sinus rhythm Normal ECG Confirmed by CARLOS LEON, ERORL ([id number]), scientific editor NAYANA SAWANT ([id number]) on 07/12/2018 4:46:01 PM Referred By: Confirmed By:ERROL GONZALEZ MD
--- NOTE | 2018-07-09 21:50 | RAD_ITS ---
STUDY: X-RAY CHEST REASON FOR EXAM: Female, 48 years old. Altered mental status. TECHNIQUE: Portable chest. COMPARISON: 06/26/2018. FINDINGS: The lungs are clear and expanded. There is no demonstrated pleural abnormality. Normal size heart. Normal mediastinum and payton. Normal visualized pulmonary arteries. Normal visualized aortic arch and descending thoracic aorta. Normal visualized thoracic spine. Normal visualized ribs, clavicles, and shoulders. There is no demonstrated abnormality of the visualized soft tissue structures of the upper abdomen. RAD/Chest 1 View (Portable) IMPRESSION: Normal x-ray examination of the chest. Electronically Signed: Anna Hughes MD at 22:36 EST Tel , Service support ,
[2018-07-09 21:57] LABS: Absolute Lymphocyte Count 2.85 X10^3/ul (0.83-4.51); Basophil# 0.02 X10^3/uL; Basophil% 0.3 % (0-1); Eosinophil# 0.28 X10^3/uL; Eosinophils% 3.6 % (0-5); Hematocrit 44.2 % (37-47); Hemoglobin 14.7 g/dl (12.0-15.0); Lymphocyte # 2.85 X10^3/ul (4.0); Lymphocyte % 36.7 % (19-41); Mean Corp Hgb Conc 33.3 g/gl (32-36); Mean Corpuscular Volume 93.2 fL (81-99); Mean Platelet Vol. 10.2 fl (6.2-12.0); Monocyte# 0.58 X10^3/uL; Monocyte% 7.5 % (0-10); Neutrophil # 4.03 X10^3/uL (2.7-7.7); Neutrophil % 51.8 % (47-70); Platelet Count 267 K/mm3 (150-450); RBC Distribution Width CV 12.4 % (11.6-14.6); Red Blood Count 4.74 M/mm3 (4.2-5.4); White Blood Count 7.8 K/mm3 (4.4-11.0)
[2018-07-09 21:59] LABS: POSITIVE COUNT NO; POSITIVE DIFFERENTIAL NO; POSITIVE MORPHOLOGY NO
[2018-07-09 22:10] LABS: AST(SGOT) 15 U/L (15-37); Alanine Aminotransfer ALT/SGPT 23 U/L (13-56); Albumin, Serum 3.8 g/dL (3.2-5.0); Alkaline Phosphatase 97 U/L (45-117); Anion Gap 12 (5-15); BUN 20 mg/dL (7-18); BUN/Creat Ratio 17.1 RATIO (10-20); Calcium,Total 8.8 mg/dL (8.5-10.1); Chloride 103 mmol/L (98-107); Creatinine, Serum 1.17 mg/dL (0.55-1.02); EST Glomerular Filtration Rate 52 mL/min (>60); Est Glom Filt Rate - Afr Amer 63 mL/min (>60); Estimated Creatinine Clearance 49.67 ml/min; Globulin 3.9 g/dL (2.2-4.2); Glucose 90 mg/dL (74-106); Potassium 3.6 mmol/L (3.5-5.1); Protein, Total 7.7 g/dL (6.4-8.2); Sodium Level 140 mmol/L (136-145)
[2018-07-09 22:12] LABS: Lactic Acid 2.6 mmol/L (0.4-2.0)
[2018-07-09 22:17] LABS: Bacteria 0 SEEN /hpf (None Seen); Mucous, Urine 0 SEEN /hpf (<or=2+); Red Blood Cells-Urine 0 SEEN /hpf (0-5); Squamous Epithelial Cells - UA 0 SEEN /hpf (5-10); White Blood Cells 0 SEEN /hpf (0-5)
--- NOTE | 2018-07-09 22:19 | ED.DCSUM_ITS ---
- ER Visit Summary Date of Service: 07/09/18 Chief Complaint: Change in mental status History of Present Illness: The patient is a 48 F presenting with change in mental status. Patient's family state that she has been more sleepy than usual over the past couple of days. She has complained of not feeling well. Today this worsened. She has had decreased p.o. intake today. Her blood sugar on arrival was 92. Family also states that they are missing a bottle of sleeping pills. They are not sure what type what medication this was but she takes as needed for sleeping. History of diabetes, CHF, hypertension, schizophrenia, history of DVT. She had a similar presentation to this in February 2018. At that time her psychiatric medications were adjusted. Physical Examination: Vitals are stable. Patient is afebrile. Alert no acute distress. HEENT exam is unremarkable. Neck is supple. Lungs are clear and equal bilaterally. Heart is regular rate and rhythm. Abdomen is soft nontender nondistended. Extremities are unremarkable. Skin is warm and dry. No focal neurologic deficit. Opens eyes to voice, follows commands Remainder of exam is unremarkable. Emergency Department Course and Treatment: EKG is normal sinus rhythm rate of 69 with no acute ischemic changes. CBC, chemistries unremarkable other than BUN 20, creatinine 1.17. Troponin is negative. Lactic acid 2.6. Ammonia 41. Influenza negative. Chest x-ray shows no acute process. CT head shows no acute process. Alcohol is negative. Tox positive for methamphetamine. Throughout her stay she becomes more awake and alert. She is answering questions appropriately but continues to fall asleep during questioning. Discussed with the hospitalist for observation. Disposition: Observation Impression: Altered mental status This note was generated with [employer] dictation software. It may contain incorrect words, spelling, and punctuation that were not noted in review of the chart prior to signing ED Disposition - Plan for ED Patient: Chief Complaint: Alt LOC Referrals: Paty Catalna DO [Primary Care Provider] -
[2018-07-09 22:21] LABS: Color, Urine Yellow (Yellow); Glucose, Dipstick Normal (Normal); Ketone-Dipstick Negative (Negative); Leukocyte Esterase-Dipstick 25 /ul (Negative); Nitrite-Dipstick Negative (Negative); Occult Blood-Urine Negative /ul (Negative); Protein-Dipstick Negative (Negative); Urine Bilirubin Dipstick Negative (Negative); Urine Clarity Clear (Clear); Urine Urobilinogen Normal (Normal)
--- NOTE | 2018-07-09 22:54 | HP.PCM_ITS ---
Problem List (1) Catatonia schizophrenia Status: Acute (2) Lactic acid acidosis Status: Acute (3) STEPHANIE (acute kidney injury) Status: Acute (4) Hyperammonemia Status: Acute History of Present Illness Date of Admission: 07/10/18 Chief Complaint: LETHARGY The patient is a 48 year old F with a significant history of hypertension; di abetes mellitus; CHF; schizophrenia; bipolar 1 disorder; DVT and PE who presented with 1 week history of progressively worsening lethargy. History was taken from patient since patient was not talking. reported that patient has had only minimal conversation. Patient reported to her that she had not eaten all day. And although her made food for patient she still would not eat. Her reported that a bottle of sleeping pill the patient uses his missing. In February 2018 patient presented to the same symptoms and her psych medications where adjusted. She was eventually discharged to psychiatric unit at that time. FARHAD 10 was positive for methamphetamine. Past Medical History Past Medical History (Chronic Problems): Chronic Problems (Last Reviewed 07/10/18 @ 00:15 by Quinten Trejo MD) BALDEMAR (obstructive sleep apnea) (Chronic) CHF (congestive heart failure) (Chronic) HTN (hypertension) (Chronic) DVT (deep venous thrombosis) (Chronic) Medical History: Medical History (Last Reviewed 07/10/18 @ 06:23 by Quinten Trejo MD) BALDEMAR (obstructive sleep apnea) (Chronic) G47.33 CHF (congestive heart failure) (Chronic) I50.9 HTN (hypertension) (Chronic) I10 Nausea & vomiting (Resolved) R11.2 DVT (deep venous thrombosis) (Chronic) I82.409 Palpitation (Inactive) R00.2 Dizzy (Inactive) R42 Bipolar 1 disorder F31.9 Cardiomyopathy I42.9 Eczema L30.9 IBS (irritable bowel syndrome) K58.9 PUD (peptic ulcer disease) K27.9 Pulmonary embolism I26.99 Schizophrenia F20.9 Allergies No Known Allergies Allergy (Verified 07/09/18 21:24) Home Medications: Ambulatory Orders Medication Instructions Recorded Carvedilol [Coreg (Beta Gabriela)] 3.125 mg PO BID 10/29/14 Lisinopril [Zestril] 2.5 mg PO DAILY 08/25/15 Furosemide 40 mg PO DAILY 09/12/17 Apixaban [Eliquis] 5 mg PO BID #66 tab 03/10/17 Bupropion HCl [Wellbutrin Xl] 150 mg PO BID 06/26/18 Olanzapine 20 mg PO DAILY 06/26/18 Sertraline HCl [Zoloft] 200 mg PO DAILY 06/26/18 Metformin HCl ER 500 mg PO DAILY 07/09/18 Surgical History: Surgical History (Last Reviewed 07/10/18 @ 06:23 by Quinten Trejo MD) History of esophagogastroduodenoscopy (EGD) Z98.890 S/P cholecystectomy Z90.49 S/P dilation and curettage Z98.890 S/P hysterectomy Z90.710 S/P nasal septoplasty Z98.890 Surgical History: cholecystectomy, hysterectomy, - - nasa surgery Smoking Status: Former smoker Alcohol: None - *Family History Maternal Family History: Family History (Last Reviewed 07/10/18 @ 06:23 by Quinten Trejo MD) Mother Breast cancer History Items: Heart Disease Paternal Family History: Family History (Last Reviewed 07/10/18 @ 06:23 by Quinten Trejo MD) Mother Breast cancer History Items: - - colon cancer Review of Systems Unable to obtain accurate/complete ROS d/t: Not talking. ROS obtained from is otherwise neg except in hpi. VTE Information - Inpt Only VTE Present on Admission: No - History of DVT/PE VTE Mechan Device Prophylaxis: None VTE Pharm Prophylaxis ordered?: No Reason prophylaxis not ordered:: Treatment Not Indicated - On Eliquis for history of DVT/PE; Continued Patient Problems: Active and Suspected Problems (Last Reviewed 07/10/18 @ 00:15 by Quinten Trejo MD) Catatonia schizophrenia (Acute) Lactic acid acidosis (Acute) STEPHANIE (acute kidney injury) (Acute) Hyperammonemia (Acute) - Physical Exam General: Alert, - - No talkative HEENT: Atraumatic, Normocephalic Neck: Supple, No JVD, Negative Carotid Bruits Lungs: Clear to auscultation, Normal air movement Cardiovascular: Regular rate, No murmurs Abdomen: Bowel Sounds Present, Soft, Non Tender Extremities: No edema, Capillary Refill Less than 3 Seconds Skin: No rashes, No breakdown Musculoskeletal: No Muscle Wasting Neurological: - - Patient is non talkative and is not performing commands Psych/Mental Status: Normal Affect, Flat Affect Vital Signs Temp Pulse Resp BP Pulse Ox 97.6 F L 74 16 99/74 96 07/09/18 21:21 07/09/18 21:21 07/09/18 21:21 07/09/18 21:21 07/09/18 21:21 Oxygen Delivery Method Room Air Weight: 106 kg Body Mass Index (BMI) 40.1 Finger Stick Blood Glucose 92 Microbiology Past 72 Hours 07/09/18 21:58 Influenza Types A,B Direct FA (BEKA) - Final Mucosa - Nose Laboratory Tests Past 24 Hrs 07/09/18 07/09/18 07/09/18 21:25 21:25 21:25 WBC 7.8 RBC 4.74 Hgb 14.7 Hct 44.2 MCV 93.2 MCH 31.0 MCHC 33.3 RDW 12.4 RDW Differential 42.0 Plt Count 267 MPV 10.2 Immature Gran % (Auto) 0.100 Neut % (Auto) 51.8 Lymph % (Auto) 36.7 [place] % (Auto) 7.5 Eos % (Auto) 3.6 Baso % (Auto) 0.3 Absolute Neuts (auto) 4.0 Absolute Lymphs (auto) 2.85 Total Counted Not Reportable Sodium 140 Potassium 3.6 Chloride 103 Carbon Dioxide 25.0 Anion Gap 12 BUN 20 H Creatinine 1.17 H Estim Creat Clear Calc 49.67 Est GFR (MDRD) Af Amer 63 Est GFR (MDRD) Non-Af 52 L BUN/Creatinine Ratio 17.1 Glucose 90 Lactic Acid 2.6 H Calcium 8.8 Total Bilirubin 0.60 AST 15 ALT 23 Alkaline Phosphatase 97 Ammonia Troponin I < 0.015 Total Protein 7.7 Albumin 3.8 Globulin 3.9 Albumin/Globulin Ratio 1.0 Urine Color Urine Clarity Urine pH Ur Specific [place] Urine Protein Urine Glucose (UA) Urine Ketones Urine Occult Blood Urine Nitrite Urine Bilirubin Urine Urobilinogen Ur Leukocyte Esterase Urine RBC Urine WBC Ur Squamous Epith Cells Urine Bacteria Urine Mucus Urine Opiates Screen Urine Methadone Screen Ur Barbiturates Screen Ur Phencyclidine Scrn Ur Amphetamines Screen U Methamphetamin-MDMA U Benzodiazepines Scrn Urine Cocaine Screen U Cannabinoids Screen Ur Drug Screen Comment Ethyl Alcohol 07/09/18 07/09/18 07/09/18 21:25 22:10 22:10 WBC RBC Hgb Hct MCV MCH MCHC RDW RDW Differential Plt Count MPV Immature Gran % (Auto) Neut % (Auto) Lymph % (Auto) [place] % (Auto) Eos % (Auto) Baso % (Auto) Absolute Neuts (auto) Absolute Lymphs (auto) Total Counted Sodium Potassium Chloride Carbon Dioxide Anion Gap BUN Creatinine Estim Creat Clear Calc Est GFR (MDRD) Af Amer Est GFR (MDRD) Non-Af BUN/Creatinine Ratio Glucose Lactic Acid Calcium Total Bilirubin AST ALT Alkaline Phosphatase Ammonia 41.0 H Troponin I Total Protein Albumin Globulin Albumin/Globulin Ratio Urine Color Yellow Urine Clarity Clear Urine pH 7.0 Ur Specific [place] 1.010 Urine Protein Negative Urine Glucose (UA) Normal Urine Ketones Negative Urine Occult Blood Negative Urine Nitrite Negative Urine Bilirubin Negative Urine Urobilinogen Normal Ur Leukocyte Esterase 25 H Urine RBC 0 SEEN Urine WBC 0 SEEN Ur Squamous Epith Cells 0 SEEN Urine Bacteria 0 SEEN Urine Mucus 0 SEEN Urine Opiates Screen Urine Methadone Screen Ur Barbiturates Screen Ur Phencyclidine Scrn Ur Amphetamines Screen U Methamphetamin-MDMA U Benzodiazepines Scrn Urine Cocaine Screen U Cannabinoids Screen Ur Drug Screen Comment Ethyl Alcohol Pending 07/09/18 22:10 WBC RBC Hgb Hct MCV MCH MCHC RDW RDW Differential Plt Count MPV Immature Gran % (Auto) Neut % (Auto) Lymph % (Auto) [place] % (Auto) Eos % (Auto) Baso % (Auto) Absolute Neuts (auto) Absolute Lymphs (auto) Total Counted Sodium Potassium Chloride Carbon Dioxide Anion Gap BUN Creatinine Estim Creat Clear Calc Est GFR (MDRD) Af Amer Est GFR (MDRD) Non-Af BUN/Creatinine Ratio Glucose Lactic Acid Calcium Total Bilirubin AST ALT Alkaline Phosphatase Ammonia Troponin I Total Protein Albumin Globulin Albumin/Globulin Ratio Urine Color Urine Clarity Urine pH Ur Specific [place] Urine Protein Urine Glucose (UA) Urine Ketones Urine Occult Blood Urine Nitrite Urine Bilirubin Urine Urobilinogen Ur Leukocyte Esterase Urine RBC Urine WBC Ur Squamous Epith Cells Urine Bacteria Urine Mucus Urine Opiates Screen Pending Urine Methadone Screen Pending Ur Barbiturates Screen Pending Ur Phencyclidine Scrn Pending Ur Amphetamines Screen Pending U Methamphetamin-MDMA Pending U Benzodiazepines Scrn Pending Urine Cocaine Screen Pending U Cannabinoids Screen Pending Ur Drug Screen Comment Ethyl Alcohol POC Glucose 07/09/18 21:36 POC Glucose 92 Assessment/Plan All Active Problems (Last Reviewed 07/10/18 @ 00:15 by Quinten Trejo MD) Diarrhea (Resolved) Acute encephalopathy (Acute) Catatonia schizophrenia (Acute) Lactic acid acidosis (Acute) STEPHANIE (acute kidney injury) (Acute) Hyperammonemia (Acute) Nausea & vomiting (Resolved) The patient is a 48 year old F with a significant history of hypertension; diabetes mellitus; CHF; schizophrenia; bipolar 1 disorder; DVT and PE who presented with 1 week history of progressively worsening lethargy and refusing to talk; and with slight elevation in ammonia level; and lactic acidosis consistent with likely schizophrenia with catatonia.. Schizophrenia with catatonia. So far there are no medical causes to explain his symptoms. Brain CT, chest x- ray and urinalysis were unremarkable. Will get a TSH and CPK. Unlikely that mild hyperammonemia can throw her into extreme state of non communicativeness Patient does not appear lethargic. It appears like she does not want to interact with her surroundings. We will continue Zoloft and Wellbutrin. Hold Olanzapine Methamphetamine was positive. Likely a false positive from Wellbutrin. Patient follows up with counseling center. Consider discussing with counseling center. Hyperammonemia There is only likely slight elevation in her ammonia level. May be a normal variant. Other liver enzymes are unremarkable. Consider ultrasound of the liver if high ammonia level remain elevated. Repeat ammonia level. Initially p.o. lactulose was ordered but patient refused to take anything p.o; and does not look like she will hold onto rectal lactulose. Moreover her ammonia level is only mildly elevated and most likely is not causing her symptoms. Do not think inserting an NG and putting lactulose in will be worth it. We will hold off lactulose at this time. . Lactic acidosis Likely due to dehydration from her not eating and from metformin use. Gentle IV hydration. Hold Lasix. Trend lactic acid Hypertension On admission blood pressure was within goal. We will hold Lasix and lisinopril. Because of STEPHANIE Trend blood pressures. STEPHANIE On admission her creatinine was 1.17. Her BUN was 20 Review of old records shows baseline creatinine of around 0.8. Gentle IV hydration Lisinopril and Lasix held. Avoid other nephrotoxic's. Diabetes Mellitus On presentation patient blood glucose was within goal. Regular diet Fingerstick blood sugar with correction scale as we hold her metformin. History of CHF Unknown whether heart failure with preserved ejection fraction; or heart failure with reduced ejection fraction. Patient is not edematous. No crackles. Patient is stable. Lasix held secondary to dehydration and AK I. History of DVT/PE Eliquis continued DVT prophylaxis Patient on Eliquis for DVT/PE Eliquis continued Code Visit OBSV E&M: [id number] Initial observation care L3
[2018-07-09 23:01] LABS: Amphetamine Urine VISTA NEGATIVE (<1000 ng/mL); Barbiturate Urine VISTA NEGATIVE (< 200 ng/mL); Benzodiazepine Urine VISTA NEGATIVE (< 200 ng/mL); Cocaine Urine VISTA NEGATIVE (< 300 ng/mL); Ecstacy Urine VISTA POSITIVE (< 500 ng/mL); Methadone Urine VISTA NEGATIVE (< 300 ng/mL); PCP Urine VISTA NEGATIVE (< 25 ng/mL); THC Urine VISTA NEGATIVE (< 50 ng/mL); Vista UDS pH Range 6
[2018-07-09 23:08] LABS: Alcohol, Blood (Medical)-Serum < 3.0 mg/dL
[2018-07-09 23:21] VITALS: BP 115/87; PULSE 75; RESP 23; O2SAT 95
[2018-07-09 23:37] VITALS: BP 115/78; PULSE 77; RESP 22; TEMP 36.8; O2SAT 97
[2018-07-10] VITALS (11 sets, daily range): BP systolic 91–111; BP diastolic 48–74; PULSE 65–91; RESP 16; TEMP 36.9–37.7; O2SAT 92–95; BMI 40.1
[2018-07-10] MEDS: 0.9% Normal Saline 1,000 ML 75 ML IV ×2 (00:58→14:01)
[2018-07-10 01:15] LABS: Bedside Glucose 98 mg/dL (70-110)
[2018-07-10 01:38] LABS: Thyroid Stim Hormone (TSH) 2.81 uIU/mL (0.358-3.74)
[2018-07-10 01:51] LABS: Reflex Lactate? Y
[2018-07-10 06:16] LABS: Bedside Glucose 108 mg/dL (70-110)
[2018-07-10 06:54] LABS: Absolute Lymphocyte Count 2.49 X10^3/ul (0.83-4.51); Absolute Neutrophil Count 3.9 X10^3/uL (2.0-7.7); Basophil# 0.02 X10^3/uL; Basophil% 0.3 % (0-1); Eosinophil# 0.28 X10^3/uL; Eosinophils% 3.8 % (0-5); Hematocrit 42.1 % (37-47); Hemoglobin 14.2 g/dl (12.0-15.0); Lymphocyte # 2.49 X10^3/ul (4.0); Lymphocyte % 33.8 % (19-41); Mean Corp Hgb Conc 33.7 g/gl (32-36); Mean Corpuscular Hgb 31.6 pg (27.0-32.0); Mean Corpuscular Volume 93.6 fL (81-99); Mean Platelet Vol. 10.3 fl (6.2-12.0); Monocyte# 0.64 X10^3/uL; Monocyte% 8.7 % (0-10); Neutrophil # 3.92 X10^3/uL (2.7-7.7); Neutrophil % 53.3 % (47-70); Platelet Count 238 K/mm3 (150-450); RBC Distribution Width CV 12.4 % (11.6-14.6); RBC Distribution Width SD 41.9 fl (35.1-43.9); White Blood Count 7.4 K/mm3 (4.4-11.0)
[2018-07-10 07:02] LABS: POSITIVE COUNT NO; POSITIVE DIFFERENTIAL NO; POSITIVE MORPHOLOGY NO
[2018-07-10 07:27] LABS: Anion Gap 9 (5-15); BUN 22 mg/dL (7-18); BUN/Creat Ratio 20.8 RATIO (10-20); Chloride 104 mmol/L (98-107); Creatinine, Serum 1.06 mg/dL (0.55-1.02); EST Glomerular Filtration Rate 58 mL/min (>60); Est Glom Filt Rate - Afr Amer 71 mL/min (>60); Estimated Creatinine Clearance 54.83 ml/min; Glucose 92 mg/dL (74-106); Potassium 3.7 mmol/L (3.5-5.1); Sodium Level 141 mmol/L (136-145)
[2018-07-10 07:40] LABS: CPK Total, Creatine Kinase 47 U/L (26-192)
--- NOTE | 2018-07-10 11:40 | PCM.PN.HOSP ---
Patient Problems: Active and Suspected Problems (Last Reviewed 07/10/18 @ 06:23 by Quinten rTejo MD) Catatonia schizophrenia (Acute) Lactic acid acidosis (Acute) STEPHANIE (acute kidney injury) (Acute) Hyperammonemia (Acute) Subjective: Continues to not respond to questions or stimuli Vitals/I&O's: Vital Signs Temp Pulse Resp BP Pulse Ox 99.7 F H 80 16 91/48 L 93 07/10/18 10:40 07/10/18 11:15 07/10/18 10:40 07/10/18 10:40 07/10/18 10:40 Oxygen Delivery Method Room Air Weight: 233 lb 11.04 oz Body Mass Index (BMI) 40.1 Finger Stick Blood Glucose 92 Intake and Output for Last 24 Hours 07/08/18 07/09/18 07/10/18 23:59 23:59 23:59 Intake Total 397 / 397 Output Total 125 / 125 Balance 272 / 272 General: Alert, No apparent distress, Non-Cooperative HEENT: Atraumatic, Normocephalic Oral: Moist Mucosa Neck: No JVD, Trachea Midline Lungs: Clear to auscultation, Normal air movement, No rhonchi, No wheeze, No rales Cardiovascular: Regular rate, Regular Rhythm, Normal S1, Normal S2, No murmurs Abdomen: Soft, Non Tender, Non-Distended, No Hepato-splenomegaly Extremities: No edema, Capillary Refill Less than 3 Seconds Skin: No rashes, No breakdown Psych/Mental Status: Flat Affect Microbiology Past 72 Hours 07/09/18 21:58 Mucosa - Nose Influenza Types A,B Direct FA (BEKA) - Final Laboratory Results 07/09/18 21:25: WBC 7.8, RBC 4.74, Hgb 14.7, Hct 44.2, MCV 93.2, MCH 31.0, MCHC 33.3, RDW 12.4, RDW Differential 42.0, Plt Count 267, MPV 10.2, Immature Gran % (Auto) 0.100, Neut % (Auto) 51.8, Lymph % (Auto) 36.7, [place] % (Auto) 7.5, Eos % (Auto) 3.6, Baso % (Auto) 0.3, Absolute Neuts (auto) 4.0, Absolute Lymphs (auto) 2.85, Total Counted Not Reportable 07/09/18 21:25: Sodium 140, Potassium 3.6, Chloride 103, Carbon Dioxide 25.0, Anion Gap 12, BUN 20 H, Creatinine 1.17 H, Estim Creat Clear Calc 49.67, Est GFR (MDRD) Af Amer 63, Est GFR (MDRD) Non-Af 52 L, BUN/Creatinine Ratio 17.1, Glucose 90, Calcium 8.8, Total Bilirubin 0.60, AST 15, ALT 23, Alkaline Phosphatase 97, Troponin I < 0.015, Total Protein 7.7, Albumin 3.8, Globulin 3.9, Albumin/Globulin Ratio 1.0 07/09/18 21:25: Lactic Acid 2.6 H 07/09/18 21:25: Ammonia 41.0 H 07/09/18 21:25: TSH 2.81 07/09/18 21:36: POC Glucose 92 07/09/18 22:10: Ethyl Alcohol < 3.0 07/09/18 22:10: Urine Color Yellow, Urine Clarity Clear, Urine pH 7.0, Ur Specific [place] 1.010, Urine Protein Negative, Urine Glucose (UA) Normal, Urine Ketones Negative, Urine Occult Blood Negative, Urine Nitrite Negative, Urine Bilirubin Negative, Urine Urobilinogen Normal, Ur Leukocyte Esterase 25 H, Urine RBC 0 SEEN, Urine WBC 0 SEEN, Ur Squamous Epith Cells 0 SEEN, Urine Bacteria 0 SEEN, Urine Mucus 0 SEEN 07/09/18 22:10: Urine Opiates Screen NEGATIVE, Urine Methadone Screen NEGATIVE, Ur Barbiturates Screen NEGATIVE, Ur Phencyclidine Scrn NEGATIVE, Ur Amphetamines Screen NEGATIVE, U Methamphetamin-MDMA POSITIVE H, U Benzodiazepines Scrn NEGATIVE, Urine Cocaine Screen NEGATIVE, U Cannabinoids Screen NEGATIVE, Ur Drug Screen Comment 07/10/18 01:09: POC Glucose 98 07/10/18 02:05: Lactic Acid 1.0 07/10/18 06:09: Sodium 141, Potassium 3.7, Chloride 104, Carbon Dioxide 28.0, Anion Gap 9, BUN 22 H, Creatinine 1.06 H, Estim Creat Clear Calc 54.83, Est GFR (MDRD) Af Amer 71, Est GFR (MDRD) Non-Af 58 L, BUN/Creatinine Ratio 20.8 H, Glucose 92, Calcium 9.0 07/10/18 06:09: WBC 7.4, RBC 4.50, Hgb 14.2, Hct 42.1, MCV 93.6, MCH 31.6, MCHC 33.7, RDW 12.4, RDW Differential 41.9, Plt Count 238, MPV 10.3, Immature Gran % (Auto) 0.100, Neut % (Auto) 53.3, Lymph % (Auto) 33.8, [place] % (Auto) 8.7, Eos % (Auto) 3.8, Baso % (Auto) 0.3, Absolute Neuts (auto) 3.9, Absolute Lymphs (auto) 2.49, Total Counted Not Reportable 07/10/18 06:12: POC Glucose 108 07/10/18 06:34: Total Creatine Kinase 47 Current Medications Apixaban (Eliquis) 10 mg PO BID COUNT INCLUDES THE [facility] Stop: 07/15/18 22:01 Last Admin: 07/10/18 11:09 Dose: Not Given Apixaban (Eliquis) 5 mg PO BID COUNT INCLUDES THE [facility] Bupropion HCl (Wellbutrin Xl) 150 mg PO BID COUNT INCLUDES THE [facility] Last Admin: 07/10/18 11:10 Dose: Not Given Carvedilol (Coreg) 3.125 mg PO BID COUNT INCLUDES THE [facility] Last Admin: 07/10/18 11:09 Dose: Not Given Dextrose (D50w Syringe) 0 gm IV X1 PRN; Protocol PRN Reason: Hypoglycemia Glucagon () 1 mg IM .X1 PRN PRN Reason: Hypoglycemia Sodium Chloride () 1,000 mls @ 75 mls/hr IV .[id number] COUNT INCLUDES THE [facility] Last Admin: 07/10/18 00:58 Dose: 75 mls/hr Magnesium Hydroxide (Milk Of Magnesia) 30 ml PO DAILY PRN PRN PRN Reason: Constipation Nutritional Formula (Lactose Free) (Ensure Enlive) 120 ml PO 4X/DAY COUNT INCLUDES THE [facility] Last Admin: 07/10/18 11:10 Dose: Not Given Sertraline HCl (Zoloft) 200 mg PO DAILY COUNT INCLUDES THE [facility] Last Admin: 07/10/18 11:10 Dose: Not Given Sodium Chloride () 5 - 15 ml IV UD PRN PRN Reason: SALINE FLUSH Medical Necessity - Tobacco Use Smoking Status: Former smoker Assessment/Plan All Active Problems (Last Reviewed 07/10/18 @ 06:23 by Quinten Trejo MD) Diarrhea (Resolved) Acute encephalopathy (Acute) Catatonia schizophrenia (Acute) Lactic acid acidosis (Acute) STEPHANIE (acute kidney injury) (Acute) Hyperammonemia (Acute) Nausea & vomiting (Resolved) 1. Schizophrenia with catatonia/elevated ammonia/elevated lactate/AK I -Continues to be catatonic -Her AK I is resolving with IV fluids and her lactic acid has resolved -We will recheck her ammonia level now that she has been rehydrated -Plan will be to consult crisis in the morning for inpatient placement and medication adjustment -Continue with Wellbutrin but hold olanzapine 2. History of DVT -Continue with Eliquis 3. Hypertension/history of CHF -There is no echo to determine whether or not this is systolic or diastolic and am unsure as to where the diagnosis came about -Hold Lasix -Can resume lisinopril tomorrow morning if her creatinine continues to improve -Continue with Coreg DVT: Eliquis Code Visit OBSV E&M: 39936 Subsequent observation care L2
--- NOTE | 2018-07-10 11:49 | PN_ITS ---
Patient Problems: Active and Suspected Problems (Last Reviewed 07/10/18 @ 06:23 by Quinten Trejo MD) Catatonia schizophrenia (Acute) Lactic acid acidosis (Acute) STEPHANIE (acute kidney injury) (Acute) Hyperammonemia (Acute) Subjective: Continues to not respond to questions or stimuli Vitals/I&O's: Vital Signs Temp Pulse Resp BP Pulse Ox 99.7 F H 80 16 91/48 L 93 07/10/18 10:40 07/10/18 11:15 07/10/18 10:40 07/10/18 10:40 07/10/18 10:40 Oxygen Delivery Method Room Air Weight: 233 lb 11.04 oz Body Mass Index (BMI) 40.1 Finger Stick Blood Glucose 92 Intake and Output for Last 24 Hours 07/08/18 07/09/18 07/10/18 23:59 23:59 23:59 Intake Total 397 / 397 Output Total 125 / 125 Balance 272 / 272 General: Alert, No apparent distress, Non-Cooperative HEENT: Atraumatic, Normocephalic Oral: Moist Mucosa Neck: No JVD, Trachea Midline Lungs: Clear to auscultation, Normal air movement, No rhonchi, No wheeze, No rales Cardiovascular: Regular rate, Regular Rhythm, Normal S1, Normal S2, No murmurs Abdomen: Soft, Non Tender, Non-Distended, No Hepato-splenomegaly Extremities: No edema, Capillary Refill Less than 3 Seconds Skin: No rashes, No breakdown Psych/Mental Status: Flat Affect Microbiology Past 72 Hours 07/09/18 21:58 Mucosa - Nose Influenza Types A,B Direct FA (BEKA) - Final Laboratory Results 07/09/18 21:25: WBC 7.8, RBC 4.74, Hgb 14.7, Hct 44.2, MCV 93.2, MCH 31.0, MCHC 33.3, RDW 12.4, RDW Differential 42.0, Plt Count 267, MPV 10.2, Immature Gran % (Auto) 0.100, Neut % (Auto) 51.8, Lymph % (Auto) 36.7, [place] % (Auto) 7.5, Eos % (Auto) 3.6, Baso % (Auto) 0.3, Absolute Neuts (auto) 4.0, Absolute Lymphs (auto) 2.85, Total Counted Not Reportable 07/09/18 21:25: Sodium 140, Potassium 3.6, Chloride 103, Carbon Dioxide 25.0, Anion Gap 12, BUN 20 H, Creatinine 1.17 H, Estim Creat Clear Calc 49.67, Est GFR (MDRD) Af Amer 63, Est GFR (MDRD) Non-Af 52 L, BUN/Creatinine Ratio 17.1, Glucose 90, Calcium 8.8, Total Bilirubin 0.60, AST 15, ALT 23, Alkaline Phosphatase 97, Troponin I < 0.015, Total Protein 7.7, Albumin 3.8, Globulin 3.9, Albumin/Globulin Ratio 1.0 07/09/18 21:25: Lactic Acid 2.6 H 07/09/18 21:25: Ammonia 41.0 H 07/09/18 21:25: TSH 2.81 07/09/18 21:36: POC Glucose 92 07/09/18 22:10: Ethyl Alcohol < 3.0 07/09/18 22:10: Urine Color Yellow, Urine Clarity Clear, Urine pH 7.0, Ur Specific [place] 1.010, Urine Protein Negative, Urine Glucose (UA) Normal, Urine Ketones Negative, Urine Occult Blood Negative, Urine Nitrite Negative, Urine Bilirubin Negative, Urine Urobilinogen Normal, Ur Leukocyte Esterase 25 H, Urine RBC 0 SEEN, Urine WBC 0 SEEN, Ur Squamous Epith Cells 0 SEEN, Urine Bacteria 0 SEEN, Urine Mucus 0 SEEN 07/09/18 22:10: Urine Opiates Screen NEGATIVE, Urine Methadone Screen NEGATIVE, Ur Barbiturates Screen NEGATIVE, Ur Phencyclidine Scrn NEGATIVE, Ur Amphetamines Screen NEGATIVE, U Methamphetamin-MDMA POSITIVE H, U Benzodiazepines Scrn NEGATIVE, Urine Cocaine Screen NEGATIVE, U Cannabinoids Screen NEGATIVE, Ur Drug Screen Comment 07/10/18 01:09: POC Glucose 98 07/10/18 02:05: Lactic Acid 1.0 07/10/18 06:09: Sodium 141, Potassium 3.7, Chloride 104, Carbon Dioxide 28.0, Anion Gap 9, BUN 22 H, Creatinine 1.06 H, Estim Creat Clear Calc 54.83, Est GFR (MDRD) Af Amer 71, Est GFR (MDRD) Non-Af 58 L, BUN/Creatinine Ratio 20.8 H, Glucose 92, Calcium 9.0 07/10/18 06:09: WBC 7.4, RBC 4.50, Hgb 14.2, Hct 42.1, MCV 93.6, MCH 31.6, MCHC 33.7, RDW 12.4, RDW Differential 41.9, Plt Count 238, MPV 10.3, Immature Gran % (Auto) 0.100, Neut % (Auto) 53.3, Lymph % (Auto) 33.8, [place] % (Auto) 8.7, Eos % (Auto) 3.8, Baso % (Auto) 0.3, Absolute Neuts (auto) 3.9, Absolute Lymphs (auto) 2.49, Total Counted Not Reportable 07/10/18 06:12: POC Glucose 108 07/10/18 06:34: Total Creatine Kinase 47 Current Medications Apixaban (Eliquis) 10 mg PO BID [facility] Stop: 07/15/18 22:01 Last Admin: 07/10/18 11:09 Dose: Not Given Apixaban (Eliquis) 5 mg PO BID [facility] Bupropion HCl (Wellbutrin Xl) 150 mg PO BID [facility] Last Admin: 07/10/18 11:10 Dose: Not Given Carvedilol (Coreg) 3.125 mg PO BID [facility] Last Admin: 07/10/18 11:09 Dose: Not Given Dextrose (D50w Syringe) 0 gm IV X1 PRN; Protocol PRN Reason: Hypoglycemia Glucagon () 1 mg IM .X1 PRN PRN Reason: Hypoglycemia Sodium Chloride () 1,000 mls @ 75 mls/hr IV .[id number] [facility] Last Admin: 07/10/18 00:58 Dose: 75 mls/hr Magnesium Hydroxide (Milk Of Magnesia) 30 ml PO DAILY PRN PRN PRN Reason: Constipation Nutritional Formula (Lactose Free) (Ensure Enlive) 120 ml PO 4X/DAY [facility] Last Admin: 07/10/18 11:10 Dose: Not Given Sertraline HCl (Zoloft) 200 mg PO DAILY [facility] Last Admin: 07/10/18 11:10 Dose: Not Given Sodium Chloride () 5 - 15 ml IV UD PRN PRN Reason: SALINE FLUSH Medical Necessity - Tobacco Use Smoking Status: Former smoker Assessment/Plan All Active Problems (Last Reviewed 07/10/18 @ 06:23 by Quinten Trejo MD) Diarrhea (Resolved) Acute encephalopathy (Acute) Catatonia schizophrenia (Acute) Lactic acid acidosis (Acute) STEPHANIE (acute kidney injury) (Acute) Hyperammonemia (Acute) Nausea & vomiting (Resolved) 1. Schizophrenia with catatonia/elevated ammonia/elevated lactate/AK I -Continues to be catatonic -Her AK I is resolving with IV fluids and her lactic acid has resolved -We will recheck her ammonia level now that she has been rehydrated -Plan will be to consult crisis in the morning for inpatient placement and medication adjustment -Continue with Wellbutrin but hold olanzapine 2. History of DVT -Continue with Eliquis 3. Hypertension/history of CHF -There is no echo to determine whether or not this is systolic or diastolic and am unsure as to where the diagnosis came about -Hold Lasix -Can resume lisinopril tomorrow morning if her creatinine continues to improve -Continue with Coreg DVT: Eliquis Code Visit OBSV E&M: 28392 Subsequent observation care L2
--- NOTE | 2018-07-10 13:17 | NURSING ---
Pt laying in bed with eyes opened. Blood Sugar checked, 88. After this nurse being in room for several minutes, pt then closed her eyes. came to visit and per , pt did not respond to him verbally. He stated she had her eye lids open slightly so she could see them
[2018-07-10 13:21] LABS: Bedside Glucose 88 mg/dL (70-110)
--- NOTE | 2018-07-10 14:14 | NURSING ---
Pt has not voided since cortez was taken out early this morning around 0100am by world geography teacher. Attends have been dry all morning. This nurse went in and explained reasoning for bladder scan and what it was. Bladder Scanned for 329ml. Offered toilet, BSC pt continues to not make eye contact and be non-verbal.
--- NOTE | 2018-07-10 16:31 | NURSING ---
Crisis here and unable to get pt to talk to him. Crisis called, spoke with of patient over the phone and said he would be here shortly.
--- NOTE | 2018-07-10 16:40 | NURSING ---
is here and talking with Crisis.
--- NOTE | 2018-07-10 18:59 | NURSING ---
Bladder scanned for 520. Dr. Myers aware no void in more then 12 hrs and first void was [address] Cath x1 order obtained.
[2018-07-10 19:01] LABS: Bedside Glucose 88 mg/dL (70-110)
[2018-07-10 21:10] LABS: Bedside Glucose 80 mg/dL (70-110)
[2018-07-11] VITALS (8 sets, daily range): BP systolic 102–127; BP diastolic 59–75; PULSE 71–91; RESP 16–20; TEMP 36.6–37.2; O2SAT 90–97
[2018-07-11 00:01] LABS: Bedside Glucose 84 mg/dL (70-110)
[2018-07-11] MEDS: 0.9% Normal Saline 1,000 ML 75 ML IV ×2 (02:39→17:39)
--- NOTE | 2018-07-11 03:30 | NURSING ---
Pt. with no void yet this shift. Bladder scanned patient for greater than 426 cc of urine. Obtained physician order for straight cath x1. Straight cath'd patient for 250 cc of urine.
[2018-07-11 06:29] LABS: Anion Gap 10 (5-15); BUN 24 mg/dL (7-18); BUN/Creat Ratio 24.9 RATIO (10-20); Calcium,Total 8.6 mg/dL (8.5-10.1); Chloride 110 mmol/L (98-107); Creatinine, Serum 0.96 mg/dL (0.55-1.02); EST Glomerular Filtration Rate 65 mL/min (>60); Est Glom Filt Rate - Afr Amer 79 mL/min (>60); Estimated Creatinine Clearance 60.54 ml/min; Glucose 91 mg/dL (74-106); Potassium 3.7 mmol/L (3.5-5.1); Sodium Level 144 mmol/L (136-145)
[2018-07-11 06:41] LABS: Bedside Glucose 85 mg/dL (70-110)
[2018-07-11 18:50] LABS: Bedside Glucose 80 mg/dL (70-110)
--- NOTE | 2018-07-11 18:54 | PCM.PROGNOTE ---
Patient Problems: Active and Suspected Problems (Last Reviewed 07/10/18 @ 06:23 by Quinten Trejo MD) Catatonia schizophrenia (Acute) Hyperammonemia (Acute) Subjective: Patient was seen and examined today, she remains nonverbal although this afternoon she did open her eyes, I talked at length with her family today several times in her room, her was present and her mother, her mother seemed to be urging the to perform additional tests to make sure that the patient did not have a psychiatric reason for her unresponsiveness. The admitted that the patient had had a similar episode before although he states the episode was not as severe. Crisis saw the patient this morning and efforts are underway to get the patient placed in a psychiatric facility. Patient had to be straight cathed today due to urinary retention. Patient is unable to take p.o. meds or nutrition at this time due to her mental status. - Physical Exam General: Alert, No apparent distress, Well developed, Well nourished, - - Patient withdraws to painful stimuli HEENT: Atraumatic, PERRLA, EOMI, Normocephalic Oral: Moist Mucosa Neck: Trachea Midline Lungs: Clear to auscultation, Normal air movement, No rhonchi, No wheeze, No rales Cardiovascular: Regular rate, Regular Rhythm, Normal S1, Normal S2, No murmurs, No Ectopic Activity, PMI Normal, No rub noted, No Gallop Abdomen: Bowel Sounds Present, Soft, Non Tender, Non-Distended, Obese Extremities: No clubbing, No cyanosis, No edema, Capillary Refill Less than 3 Seconds Skin: No rashes, No breakdown Neurological: Cranial nerves II-XII grossly intact, Neuro grossly intact, - - Patient withdraws to painful stimuli Psych/Mental Status: Flat Affect Vital Signs Temp Pulse Resp BP Pulse Ox 97.8 F 71 18 118/75 96 07/11/18 15:28 07/11/18 15:28 07/11/18 15:28 07/11/18 15:28 07/11/18 15:28 Oxygen Delivery Method Room Air Weight: 106 kg Body Mass Index (BMI) 40.1 Finger Stick Blood Glucose 92 Intake and Output for Last 24 Hours 07/09/18 07/10/18 07/11/18 23:59 23:59 23:59 Intake Total 1457 / 1457 1641 / 1641 Output Total 125 / 125 1350 / 1350 Balance 1332 / 1332 291 / 291 Microbiology Past 72 Hours 07/09/18 21:58 Influenza Types A,B Direct FA (BEKA) - Final Mucosa - Nose Laboratory Tests Past 24 Hrs 07/11/18 07/11/18 05:38 05:38 Sodium 144 Potassium 3.7 Chloride 110 H Carbon Dioxide 24.0 Anion Gap 10 BUN 24 H Creatinine 0.96 Estim Creat Clear Calc 60.54 Est GFR (MDRD) Af Amer 79 Est GFR (MDRD) Non-Af 65 BUN/Creatinine Ratio 24.9 H Glucose 91 Calcium 8.6 Ammonia 23.0 POC Glucose 07/11/18 07/11/18 07/10/18 18:45 06:28 23:57 POC Glucose 80 85 84 07/10/18 07/10/18 21:07 18:47 POC Glucose 80 88 Medical Necessity - Tobacco Use Smoking Status: Former smoker Assessment/Plan All Active Problems (Last Reviewed 07/10/18 @ 06:23 by Quinten Trejo MD) Diarrhea (Resolved) Acute encephalopathy (Resolved) Catatonia schizophrenia (Acute) Lactic acid acidosis (Resolved) STEPHANIE (acute kidney injury) (Resolved) Hyperammonemia (Acute) Nausea & vomiting (Resolved) #1 acute catatonic schizophrenia-supportive care will continue, patient is on IV fluids, patient started responding today to certain stimuli where she had had no response previously, I do not think the patient needs additional diagnostic testing at this time #2 bipolar disorder #3 elevated ammonia level-now normal today, etiology of this is unknown, I do not think the slightly elevated ammonia level has anything to do with the patient's mental status #4 hypertension #5 urinary retention-late this afternoon, patient was noted to be incontinent, urinary retention was listed as a problem during her 2018 admission to the hospital, this will be monitored during this hospitalization #6 history of VTE in the past-patient is on Eliquis chronically, she is unable to take this at this time, I will administer Lovenox for now Code Visit Inpatient E&M: 12384 Subs Hosp L2
[2018-07-11 23:56] LABS: Bedside Glucose 79 mg/dL (70-110)
[2018-07-12 01:23] VITALS: BP 110/64; PULSE 90; RESP 20; TEMP 37; O2SAT 91
[2018-07-12 05:10] VITALS: BP 117/70; PULSE 85; RESP 20; TEMP 36.9
[2018-07-12 05:56] LABS: Bedside Glucose 82 mg/dL (70-110)
--- NOTE | 2018-07-12 06:34 | NURSING ---
Bladder scanned for 3 cc.
[2018-07-12 07:03] VITALS: O2SAT 92
[2018-07-12 08:40] VITALS: BP 125/75; PULSE 73; RESP 18; TEMP 36.7; O2SAT 96
[2018-07-12] MEDS: 0.9% Normal Saline 1,000 ML 75 ML IV ×2 (08:42→21:05)
[2018-07-12 09:06] LABS: Cholesterol 144 mg/dL (200); High Density Lipoprotein 35 mg/dL; Triglycerides 84 mg/dL; Very Low Density Lipoprotein 17 mg/dL (5-40)
--- NOTE | 2018-07-12 09:07 | PCA ---
Nathaniel Pereira called about this patient to let us know an update. First phone call around 0830 they told me she was not approved yet because the psychiatrist and doctor has not talked yet about patient that they will call us back when decision has been made. Nathaniel jennifer called me at 0905 to let me know that the doctors has talked and that they will not accept her because she is in a catatonic state where she is not walking. They do not have hoyers or the capability to assist with her condition . So they will not accept but they are referring us to call [facility] number is . I called the crisis that is down in [facility] emergency department to let them know the update I received.
[2018-07-12] MEDS: buPROPion (XL) 150 MG TABLET.XL PO ×2 (12:11→21:05)
[2018-07-12] MEDS: Carvedilol 3.125 MG TABLET PO ×2 (12:11→21:05)
[2018-07-12] MEDS: Sertraline 100 MG Tablet 200 MG PO (12:11)
[2018-07-12 12:21] LABS: Bedside Glucose 99 mg/dL (70-110)
[2018-07-12 15:45] VITALS: BP 103/66; PULSE 79; RESP 16; TEMP 37.2; O2SAT 94
[2018-07-12 17:40] LABS: Bedside Glucose 86 mg/dL (70-110)
--- NOTE | 2018-07-12 17:42 | PCM.PROGNOTE ---
Patient Problems: Active and Suspected Problems (Last Reviewed 07/10/18 @ 06:23 by Quinten Trejo MD) Catatonia schizophrenia (Acute) Hyperammonemia (Acute) Subjective: Patient was seen and examined today, she is more responsive to verbal commands today and appears to be more alert but she is still lethargic. I talked to her who is in the room today, I recommended to the that if we receive a psych bed today that the patient be transferred to psych facility, if she is not transferred today I would reevaluate the patient tomorrow to see if she still needs to go to a psych facility in my estimation. Patient was cleared for oral intake today and will resume her medications. - Physical Exam General: Well developed, Lethargic HEENT: Atraumatic, PERRLA, Normocephalic Oral: Moist Mucosa Neck: Supple, No Nuchal Rigidity, Trachea Midline, Thyroid Normal Size and Texture Lungs: Clear to auscultation, Normal air movement, No rhonchi, No wheeze, No rales Cardiovascular: Regular rate, Regular Rhythm, Normal S1, Normal S2, No murmurs, No Ectopic Activity, PMI Normal, No rub noted, No Gallop Abdomen: Bowel Sounds Present, Soft, Non Tender, Non-Distended, Obese, No hernias noted Extremities: No clubbing, No cyanosis, No edema, Capillary Refill Less than 3 Seconds Skin: No rashes, No breakdown Musculoskeletal: No Tenderness to Palpation of Joints or Extremities Neurological: Cranial nerves II-XII grossly intact, Neuro grossly intact, Muscle tone normal, Sensory exam intact to light touch and pain Psych/Mental Status: Normal Affect, Appropriate, Alert and oriented to time, place, person, mood and affect Vital Signs Temp Pulse Resp BP Pulse Ox 99.0 F 79 16 103/66 94 07/12/18 15:45 07/12/18 15:45 07/12/18 15:45 07/12/18 15:45 07/12/18 15:45 Oxygen Delivery Method Room Air Weight: 106 kg Body Mass Index (BMI) 40.1 Finger Stick Blood Glucose 92 Intake and Output for Last 24 Hours 07/10/18 07/11/18 07/12/18 23:59 23:59 23:59 Intake Total 1457 / 1457 2143 / 2143 868 / 868 Output Total 125 / 125 1350 / 1350 Balance 1332 / 1332 793 / 793 868 / 868 Microbiology Past 72 Hours 07/09/18 21:58 Influenza Types A,B Direct FA (BEKA) - Final Mucosa - Nose Laboratory Tests Past 24 Hrs 07/12/18 08:24 Triglycerides 84 Cholesterol 144 LDL Cholesterol 92 VLDL Cholesterol 17 HDL Cholesterol 35 L TSH Cancelled POC Glucose 07/12/18 07/12/18 07/12/18 17:32 12:09 05:51 POC Glucose 86 99 82 07/11/18 07/11/18 23:47 18:45 POC Glucose 79 80 Medical Necessity - Tobacco Use Smoking Status: Former smoker Assessment/Plan All Active Problems (Last Reviewed 07/10/18 @ 06:23 by Quinten Trejo MD) Diarrhea (Resolved) Acute encephalopathy (Resolved) Catatonia schizophrenia (Acute) Lactic acid acidosis (Resolved) STEPHANIE (acute kidney injury) (Resolved) Hyperammonemia (Acute) Nausea & vomiting (Resolved) #1 acute catatonic schizophrenia-supportive care will continue, patient is on IV fluids, she is now on oral medications, we are currently awaiting confirmation of a psych bed #2 bipolar disorder #3 elevated ammonia level-now normal today, etiology of this is unknown #4 hypertension #5 urinary retention-resolved, patient has been incontinent today #6 history of VTE in the past-patient is on Eliquis chronically, we will resume this medication Code Visit Inpatient E&M: 92868 Subs Hosp L2
[2018-07-12 20:58] VITALS: BP 106/70; PULSE 69; RESP 16; TEMP 37.2; O2SAT 96
[2018-07-12 22:31] LABS: Bedside Glucose 102 mg/dL (70-110)
[2018-07-13 02:58] VITALS: BP 109/67; PULSE 66; RESP 16; TEMP 36.8; O2SAT 94
[2018-07-13 05:21] LABS: Bedside Glucose 96 mg/dL (70-110)
[2018-07-13 06:48] VITALS: O2SAT 92
[2018-07-13] MEDS: Carvedilol 3.125 MG TABLET PO ×2 (10:13→21:52)
[2018-07-13] MEDS: Sertraline 100 MG Tablet 200 MG PO (10:14)
[2018-07-13] MEDS: buPROPion (XL) 150 MG TABLET.XL PO ×2 (10:14→21:52)
[2018-07-13 11:06] LABS: Bedside Glucose 140 mg/dL (70-110)
[2018-07-13 11:13] VITALS: BP 102/54; PULSE 67; RESP 16; TEMP 36.8; O2SAT 97
[2018-07-13] MEDS: 0.9% Normal Saline 1,000 ML 75 ML IV (11:57)
[2018-07-13 14:02] VITALS: BP 105/72; PULSE 73; RESP 16; TEMP 36.8; O2SAT 94
--- NOTE | 2018-07-13 14:10 | CASEMGMT ---
Social Work Note CHATA spoke with Physician who states pt should be able to discharge home with resumption of psych medications and family support. CHATA informed physician that pt was pink slipped and most likely Crisis will need to reevaluate pt before pt can return home. CHATA placed a call to Hugo Solis at Crisis. Per Hugo he will send someone to [facility] to reevaluate pt. Crisis to come reevaluate pt. Shivani Morales DOCTOR OF CHIROPRACTIC, LANDSCAPE ARTIST
--- NOTE | 2018-07-13 15:48 | CASEMGMT ---
Addendum entered by Shivani Morales 07/13/18 16:30: SW placed a call to pt's Ross and updated him on pt's counseling appointment at [facility] Original Note: Addendum entered by Shivani Morales 07/13/18 16:26: RN updated on pt's counseling appointment at [facility]. Original Note: Social Work Note Crisis cleared pt to be discharged today. Physician updated. Physician states he would like pt to bet set up with a counselor at [facility]. CHATA met with pt. CHATA introduced self and role at [facility]. Pt is alert and orientated. Pt states that she used to see a counselor in the past at [facility] and is agreeable to setting up a counseling appointment at [facility]. Pt gave this worker permission to schedule a appointment for pt at [facility]. Pt filled out release of authorization form for [facility], form placed on pt's chart. CHATA placed a call to [facility] and spoke with Neha. Pt is active with psychiatrist and crisis workers at [facility] already. CHATA informed Neha that pt is interested in counseling. Neha scheduled counseling appointment for pt on August 05 at 2:00pm. CHATA updated pt on counseling appointment and provided pt with sticky note stating counseling appointment. RN updated. RN states crisis has called pt's and has been updated that pt has been cleared. Pt to discharge home with follow up appointments at [facility] Shivani Morales FLUMER, PORTER HEAD
--- NOTE | 2018-07-13 16:53 | NURSING ---
pt incont of urine and stool, attempted to walk pt to bathroom pt unable to stand with [address] kaplan that pt unable to walk or stand and is here to talk to him.
[2018-07-13 16:55] LABS: Bedside Glucose 110 mg/dL (70-110)
--- NOTE | 2018-07-13 17:10 | PCM.PROGNOTE ---
Patient Problems: Active and Suspected Problems (Last Reviewed 07/10/18 @ 06:23 by Quinten Trejo MD) Catatonia schizophrenia (Acute) Hyperammonemia (Acute) Subjective: Patient was seen and examined today, she is more alert and responds appropriately to me, unfortunately, patient was not able to walk without maximal assistance today, I talked with her and her briefly this late this afternoon and I told the patient and her that if she was not able to ambulate tomorrow we would have to look at placement short-term in a [facility] facility. I do not believe the patient needs psychiatric placement at this time, I will restart her Zyprexa at a lower dose of 5 mg daily. - Physical Exam General: Alert, Oriented x3, Cooperative, No apparent distress, Well developed HEENT: Atraumatic, PERRLA, EOMI, Normocephalic Oral: Moist Mucosa Neck: Supple, No Nuchal Rigidity, Trachea Midline, Thyroid Normal Size and Texture Lungs: Clear to auscultation, Normal air movement, No rhonchi, No wheeze, No rales Cardiovascular: Regular rate, Regular Rhythm, Normal S1, Normal S2, No murmurs, No Ectopic Activity, PMI Normal, No rub noted, No Gallop Abdomen: Bowel Sounds Present, Soft, Non Tender, Non-Distended, Obese, No hernias noted Extremities: No clubbing, No cyanosis, No edema, Capillary Refill Less than 3 Seconds Skin: No rashes, No breakdown Musculoskeletal: No Tenderness to Palpation of Joints or Extremities Neurological: Cranial nerves II-XII grossly intact, Neuro grossly intact, Sensory exam intact to light touch and pain, Coordination normal Psych/Mental Status: Normal Affect, Appropriate, Alert and oriented to time, place, person, mood and affect Vital Signs Temp Pulse Resp BP Pulse Ox 98.2 F 73 16 105/72 94 07/13/18 14:02 07/13/18 14:02 07/13/18 14:02 07/13/18 14:02 07/13/18 14:02 Oxygen Delivery Method Room Air Weight: 106 kg Body Mass Index (BMI) 40.1 Finger Stick Blood Glucose 92 Intake and Output for Last 24 Hours 07/11/18 07/12/18 07/13/18 23:59 23:59 23:59 Intake Total 2143 / 2143 1642 / 1642 1385 / 1385 Output Total 1350 / 1350 Balance 793 / 793 1642 / 1642 1385 / 1385 POC Glucose 07/13/18 07/13/18 07/13/18 16:50 11:03 05:16 POC Glucose 110 140 H 96 07/12/18 07/12/18 22:28 17:32 POC Glucose 102 86 Medical Necessity - Tobacco Use Smoking Status: Former smoker Assessment/Plan All Active Problems (Last Reviewed 07/10/18 @ 06:23 by Quinten Trejo MD) Diarrhea (Resolved) Acute encephalopathy (Resolved) Catatonia schizophrenia (Acute) Lactic acid acidosis (Resolved) STEPHANIE (acute kidney injury) (Resolved) Hyperammonemia (Acute) Nausea & vomiting (Resolved) #1 acute catatonic jqrheduxeyvsu-spgajufs-tvhqqyl will be seen tomorrow again by PT and OT, if she is not able to ambulate with minimal assistance, she will have to be transferred to [facility] facility for short-term rehab. 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 #8 type 2 diabetes-patient has been off her metformin since she has been in the hospital here, blood sugars have been under adequate control, I suspect the patient is not following her diet at home. She is only on 500 mg of metformin a day at home. I will not restart her metformin Code Visit Inpatient E&M: 89479 Subs Hosp L2
--- NOTE | 2018-07-13 17:15 | PN_ITS ---
Patient Problems: Active and Suspected Problems (Last Reviewed 07/10/18 @ 06:23 by Quinten Trejo MD) Catatonia schizophrenia (Acute) Hyperammonemia (Acute) Subjective: Patient was seen and examined today, she is more alert and responds appropriately to me, unfortunately, patient was not able to walk without maximal assistance today, I talked with her and her briefly this late this afternoon and I told the patient and her that if she was not able to ambulate tomorrow we would have to look at placement short-term in a prison facility. I do not believe the patient needs psychiatric placement at this time, I will restart her Zyprexa at a lower dose of 5 mg daily. - Physical Exam General: Alert, Oriented x3, Cooperative, No apparent distress, Well developed HEENT: Atraumatic, PERRLA, EOMI, Normocephalic Oral: Moist Mucosa Neck: Supple, No Nuchal Rigidity, Trachea Midline, Thyroid Normal Size and Texture Lungs: Clear to auscultation, Normal air movement, No rhonchi, No wheeze, No rales Cardiovascular: Regular rate, Regular Rhythm, Normal S1, Normal S2, No murmurs, No Ectopic Activity, PMI Normal, No rub noted, No Gallop Abdomen: Bowel Sounds Present, Soft, Non Tender, Non-Distended, Obese, No hernias noted Extremities: No clubbing, No cyanosis, No edema, Capillary Refill Less than 3 Seconds Skin: No rashes, No breakdown Musculoskeletal: No Tenderness to Palpation of Joints or Extremities Neurological: Cranial nerves II-XII grossly intact, Neuro grossly intact, Sensory exam intact to light touch and pain, Coordination normal Psych/Mental Status: Normal Affect, Appropriate, Alert and oriented to time, place, person, mood and affect Vital Signs Temp Pulse Resp BP Pulse Ox 98.2 F 73 16 105/72 94 07/13/18 14:02 07/13/18 14:02 07/13/18 14:02 07/13/18 14:02 07/13/18 14:02 Oxygen Delivery Method Room Air Weight: 106 kg Body Mass Index (BMI) 40.1 Finger Stick Blood Glucose 92 Intake and Output for Last 24 Hours 07/11/18 07/12/18 07/13/18 23:59 23:59 23:59 Intake Total 2143 / 2143 1642 / 1642 1385 / 1385 Output Total 1350 / 1350 Balance 793 / 793 1642 / 1642 1385 / 1385 POC Glucose 07/13/18 07/13/18 07/13/18 16:50 11:03 05:16 POC Glucose 110 140 H 96 07/12/18 07/12/18 22:28 17:32 POC Glucose 102 86 Medical Necessity - Tobacco Use Smoking Status: Former smoker Assessment/Plan All Active Problems (Last Reviewed 07/10/18 @ 06:23 by Quinten Trejo MD) Diarrhea (Resolved) Acute encephalopathy (Resolved) Catatonia schizophrenia (Acute) Lactic acid acidosis (Resolved) STEPHANIE (acute kidney injury) (Resolved) Hyperammonemia (Acute) Nausea & vomiting (Resolved) #1 acute catatonic nyovnmrqipzky-vfdsheqs-hbcwmwi will be seen tomorrow again by PT and OT, if she is not able to ambulate with minimal assistance, she will have to be transferred to prison facility for short-term rehab. 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 #8 type 2 diabetes-patient has been off her metformin since she has been in the hospital here, blood sugars have been under adequate control, I suspect the patient is not following her diet at home. She is only on 500 mg of metformin a day at home. I will not restart her metformin Code Visit Inpatient E&M: 42173 Subs Hosp L2
[2018-07-13 20:00] VITALS: BP 108/68; PULSE 70; RESP 16; TEMP 36.6; O2SAT 97
[2018-07-14 00:31] LABS: Bedside Glucose 132 mg/dL (70-110)
[2018-07-14 02:00] VITALS: BP 104/69; PULSE 64; RESP 14; TEMP 36.9; O2SAT 96
[2018-07-14 06:17] LABS: Bedside Glucose 95 mg/dL (70-110)
[2018-07-14 07:50] VITALS: BP 113/72; PULSE 67; RESP 16; TEMP 36.7; O2SAT 95
[2018-07-14] MEDS: Carvedilol 3.125 MG TABLET PO ×2 (07:52→21:46)
[2018-07-14] MEDS: Sertraline 100 MG Tablet 200 MG PO (07:52)
[2018-07-14] MEDS: buPROPion (XL) 150 MG TABLET.XL PO ×2 (07:52→21:46)
--- NOTE | 2018-07-14 11:35 | CASEMGMT ---
Social Work Note Per notes, pt unable to ambulate last night and physician put in consult for possible SNF placement. SW met with pt. Pt sitting upright in chair. Pt is alert and orientated. SW informed pt that per PT/OT pt was max/mod assist of two and recommendation is short term placement at SNF. PT asked about HHC. SW informed pt that that is an option but explained that HHC won't be out everyday. Pt states that she has two daughters one who is 16 and attends school and the other one is handicapped and her works during the day. SW asked pt who was going to assist her during the day as she is home alone. Pt states she is agreeable to SNF. SW informed pt that SNF around area in network with insurance are [facility] and [facility]. Pt agreeable to referral being sent to [facility] and if [facility] is unable to accept, pt agreeable to [facility]. Pt states that her should be coming in today. SW placed a call to [facility] and left a message for Stacey. Plan: [facility] pending acceptance and pre-cert Shivani Morales TOWER OPERATOR, PEDIATRIC GENETICIST
[2018-07-14 12:26] LABS: Bedside Glucose 154 mg/dL (70-110)
--- NOTE | 2018-07-14 12:53 | PCM.PN.HOSP ---
Patient Problems: Active and Suspected Problems (Last Reviewed 07/10/18 @ 06:23 by Quinten Trejo MD) Catatonia schizophrenia (Acute) Hyperammonemia (Acute) Subjective: Patient was seen and examined. She is more awake and alert. Sitting in the chair. Interactive although slow in responding. Discussed with physical and Occupational Therapy, patient is a 2 person assist. Patient admits that she is feeling weak and is agreeable to subacute facility for rehab prior to going home. Objective: Physical Exam General: Alert, Oriented x3, Cooperative, No apparent distress, Well developed HEENT: Atraumatic, PERRLA, EOMI, Normocephalic Oral: Moist Mucosa Neck: Supple, No Nuchal Rigidity, Trachea Midline, Thyroid Normal Size and Texture Lungs: Clear to auscultation, Normal air movement, No rhonchi, No wheeze, No rales Cardiovascular: Regular rate, Regular Rhythm, Normal S1, Normal S2, No murmurs, No Ectopic Activity, PMI Normal, No rub noted, No Gallop Abdomen: Bowel Sounds Present, Soft, Non Tender, Non-Distended, Obese, No hernias noted Extremities: No clubbing, No cyanosis, No edema, Capillary Refill Less than 3 Seconds Skin: No rashes, No breakdown Musculoskeletal: No Tenderness to Palpation of Joints or Extremities Neurological: Cranial nerves II-XII grossly intact, Neuro grossly intact, Sensory exam intact to light touch and pain, Coordination normal Psych/Mental Status: Flat affect Alert and oriented to time, place, person, mood and affect Vitals/I&O's: Vital Signs Temp Pulse Resp BP Pulse Ox 98.0 F 67 16 113/72 95 07/14/18 07:50 07/14/18 07:50 07/14/18 07:50 07/14/18 07:50 07/14/18 07:50 Oxygen Delivery Method Room Air Weight: 106 kg Body Mass Index (BMI) 40.1 Finger Stick Blood Glucose 92 Intake and Output for Last 24 Hours 07/12/18 07/13/18 07/14/18 23:59 23:59 23:59 Intake Total 1642 / 1642 1735 / 1735 1648 / 1648 Balance 1642 / 1642 1735 / 1735 1648 / 1648 Laboratory Results 07/13/18 16:50: POC Glucose 110 07/14/18 00:24: POC Glucose 132 H 07/14/18 06:10: POC Glucose 95 07/14/18 11:21: POC Glucose 154 H Current Medications Apixaban (Eliquis) 5 mg PO BID [facility] Apixaban (Eliquis) 10 mg PO BID [facility] Stop: 07/21/18 22:01 Bupropion HCl (Wellbutrin Xl) 150 mg PO BID [facility] Last Admin: 07/14/18 07:52 Dose: 150 mg Carvedilol (Coreg) 3.125 mg PO BID [facility] Last Admin: 07/14/18 07:52 Dose: 3.125 mg Dextrose (D50w Syringe) 0 gm IV X1 PRN; Protocol PRN Reason: Hypoglycemia Glucagon () 1 mg IM .X1 PRN PRN Reason: Hypoglycemia Magnesium Hydroxide (Milk Of Magnesia) 30 ml PO DAILY PRN PRN PRN Reason: Constipation Nutritional Formula (Lactose Free) (Ensure Enlive) 120 ml PO 4X/DAY [facility] Last Admin: 07/14/18 07:53 Dose: 120 ml Sertraline HCl (Zoloft) 200 mg PO DAILY [facility] Last Admin: 07/14/18 07:52 Dose: 200 mg Sodium Chloride () 5 - 15 ml IV UD PRN PRN Reason: SALINE FLUSH Medical Necessity - Tobacco Use Smoking Status: Former smoker Assessment/Plan All Active Problems (Last Reviewed 07/10/18 @ 06:23 by Quinten Trejo MD) Diarrhea (Resolved) Acute encephalopathy (Resolved) Catatonia schizophrenia (Acute) Lactic acid acidosis (Resolved) STEPHANIE (acute kidney injury) (Resolved) Hyperammonemia (Acute) Nausea & vomiting (Resolved) 48-year-old female with past medical history of schizo affective disorder, hypertension, type II DM, chronic CHF, history of DVT/PE who was admitted with progressive lethargy. Patient has been managed as an acute catatonic schizophrenia. 1. Altered mental status tender to catatonia from schizophrenia, resolved 2. Schizoaffective disorder, no more catatonic, will need to be followed up by pscyhiatry, restarted on zyprexa 3. Hyperammonemia, unclear etiology, resolved 4. Hypertension, controlled, on carvedilol 5. H/o DVT on Eliquis, will continue 6. History of cardiomyopathy, possibly peripartum, stable 7. Type 2 DM, off her metformin, will check HbA1c 8. DVT PPx- On Eliquis Code Visit Inpatient E&M: 36524 Subs Hosp L2
--- NOTE | 2018-07-14 13:07 | PN_ITS ---
Patient Problems: Active and Suspected Problems (Last Reviewed 07/10/18 @ 06:23 by Quinten Trejo MD) Catatonia schizophrenia (Acute) Hyperammonemia (Acute) Subjective: Patient was seen and examined. She is more awake and alert. Sitting in the chair. Interactive although slow in responding. Discussed with physical and Occupational Therapy, patient is a 2 person assist. Patient admits that she is feeling weak and is agreeable to subacute facility for rehab prior to going home. Objective: Physical Exam General: Alert, Oriented x3, Cooperative, No apparent distress, Well developed HEENT: Atraumatic, PERRLA, EOMI, Normocephalic Oral: Moist Mucosa Neck: Supple, No Nuchal Rigidity, Trachea Midline, Thyroid Normal Size and Texture Lungs: Clear to auscultation, Normal air movement, No rhonchi, No wheeze, No rales Cardiovascular: Regular rate, Regular Rhythm, Normal S1, Normal S2, No murmurs, No Ectopic Activity, PMI Normal, No rub noted, No Gallop Abdomen: Bowel Sounds Present, Soft, Non Tender, Non-Distended, Obese, No hernias noted Extremities: No clubbing, No cyanosis, No edema, Capillary Refill Less than 3 Seconds Skin: No rashes, No breakdown Musculoskeletal: No Tenderness to Palpation of Joints or Extremities Neurological: Cranial nerves II-XII grossly intact, Neuro grossly intact, Sensory exam intact to light touch and pain, Coordination normal Psych/Mental Status: Flat affect Alert and oriented to time, place, person, mood and affect Vitals/I&O's: Vital Signs Temp Pulse Resp BP Pulse Ox 98.0 F 67 16 113/72 95 07/14/18 07:50 07/14/18 07:50 07/14/18 07:50 07/14/18 07:50 07/14/18 07:50 Oxygen Delivery Method Room Air Weight: 106 kg Body Mass Index (BMI) 40.1 Finger Stick Blood Glucose 92 Intake and Output for Last 24 Hours 07/12/18 07/13/18 07/14/18 23:59 23:59 23:59 Intake Total 1642 / 1642 1735 / 1735 1648 / 1648 Balance 1642 / 1642 1735 / 1735 1648 / 1648 Laboratory Results 07/13/18 16:50: POC Glucose 110 07/14/18 00:24: POC Glucose 132 H 07/14/18 06:10: POC Glucose 95 07/14/18 11:21: POC Glucose 154 H Current Medications Apixaban (Eliquis) 5 mg PO BID [facility] Apixaban (Eliquis) 10 mg PO BID [facility] Stop: 07/21/18 22:01 Bupropion HCl (Wellbutrin Xl) 150 mg PO BID [facility] Last Admin: 07/14/18 07:52 Dose: 150 mg Carvedilol (Coreg) 3.125 mg PO BID [facility] Last Admin: 07/14/18 07:52 Dose: 3.125 mg Dextrose (D50w Syringe) 0 gm IV X1 PRN; Protocol PRN Reason: Hypoglycemia Glucagon () 1 mg IM .X1 PRN PRN Reason: Hypoglycemia Magnesium Hydroxide (Milk Of Magnesia) 30 ml PO DAILY PRN PRN PRN Reason: Constipation Nutritional Formula (Lactose Free) (Ensure Enlive) 120 ml PO 4X/DAY [facility] Last Admin: 07/14/18 07:53 Dose: 120 ml Sertraline HCl (Zoloft) 200 mg PO DAILY [facility] Last Admin: 07/14/18 07:52 Dose: 200 mg Sodium Chloride () 5 - 15 ml IV UD PRN PRN Reason: SALINE FLUSH Medical Necessity - Tobacco Use Smoking Status: Former smoker Assessment/Plan All Active Problems (Last Reviewed 07/10/18 @ 06:23 by Quinten Trejo MD) Diarrhea (Resolved) Acute encephalopathy (Resolved) Catatonia schizophrenia (Acute) Lactic acid acidosis (Resolved) STEPHANIE (acute kidney injury) (Resolved) Hyperammonemia (Acute) Nausea & vomiting (Resolved) 48-year-old female with past medical history of schizo affective disorder, hypertension, type II DM, chronic CHF, history of DVT/PE who was admitted with progressive lethargy. Patient has been managed as an acute catatonic schizophrenia. 1. Altered mental status tender to catatonia from schizophrenia, resolved 2. Schizoaffective disorder, no more catatonic, will need to be followed up by pscyhiatry, restarted on zyprexa 3. Hyperammonemia, unclear etiology, resolved 4. Hypertension, controlled, on carvedilol 5. H/o DVT on Eliquis, will continue 6. History of cardiomyopathy, possibly peripartum, stable 7. Type 2 DM, off her metformin, will check HbA1c 8. DVT PPx- On Eliquis Code Visit Inpatient E&M: 08484 Subs Hosp L2
--- NOTE | 2018-07-14 14:12 | CASEMGMT ---
Social Work Note CHATA received call from Stacey at [facility] stating she is able to accept pt but had questioned if pt needs cpap or bipap machine or if pt has one already. CHATA met with pt. Pt's and daughter present in room. Pt gave this worker permission to speak to her in front of her guest. CHATA updated pt and pt's family that [facility] is able to accept and pre-cert will need to be obtained before pt is able to discharge. Pt states that she has a cpap machine at home but she doesn't use it. CHATA updated Stacey at [facility] that pt has cpap machine at home. Plan: [facility] pending pre-cert Shivani Morales DOCTOR OSTEOPATHIC, SANITARY LANDFILL OPERATOR
[2018-07-14 14:25] VITALS: BP 113/72; PULSE 57; RESP 18; TEMP 36.9; O2SAT 95
[2018-07-14 16:45] LABS: Bedside Glucose 141 mg/dL (70-110)
[2018-07-14 20:22] VITALS: BP 118/69; PULSE 72; RESP 16; TEMP 36.6; O2SAT 95
[2018-07-14] MEDS: APIXABAN 5 MG TABLET 10 MG PO (21:46)
[2018-07-14 22:45] LABS: Bedside Glucose 106 mg/dL (70-110)
[2018-07-15 03:09] VITALS: BP 111/78; PULSE 73; RESP 16; TEMP 36.6; O2SAT 94
[2018-07-15 05:48] LABS: Absolute Lymphocyte Count 1.97 X10^3/ul (0.83-4.51); Absolute Neutrophil Count 5.2 X10^3/uL (2.0-7.7); Basophil# 0.01 X10^3/uL; Basophil% 0.1 % (0-1); Eosinophil# 0.33 X10^3/uL; Hematocrit 39.7 % (37-47); Lymphocyte # 1.97 X10^3/ul (4.0); Lymphocyte % 23.8 % (19-41); Mean Corp Hgb Conc 32.7 g/gl (32-36); Mean Corpuscular Hgb 30.6 pg (27.0-32.0); Mean Corpuscular Volume 93.4 fL (81-99); Mean Platelet Vol. 10.2 fl (6.2-12.0); Monocyte# 0.73 X10^3/uL; Monocyte% 8.8 % (0-10); Neutrophil # 5.21 X10^3/uL (2.7-7.7); Neutrophil % 63.2 % (47-70); Platelet Count 192 K/mm3 (150-450); RBC Distribution Width CV 12.1 % (11.6-14.6); RBC Distribution Width SD 40.8 fl (35.1-43.9); Red Blood Count 4.25 M/mm3 (4.2-5.4); White Blood Count 8.3 K/mm3 (4.4-11.0)
[2018-07-15 06:09] LABS: Anion Gap 8 (5-15); BUN 24 mg/dL (7-18); Calcium,Total 8.7 mg/dL (8.5-10.1); Chloride 108 mmol/L (98-107); EST Glomerular Filtration Rate 62 mL/min (>60); Est Glom Filt Rate - Afr Amer 75 mL/min (>60); Estimated Creatinine Clearance 58.12 ml/min; Glucose 107 mg/dL (74-106); Potassium 3.8 mmol/L (3.5-5.1); Sodium Level 143 mmol/L (136-145)
[2018-07-15 06:10] LABS: POSITIVE COUNT NO; POSITIVE DIFFERENTIAL NO; POSITIVE MORPHOLOGY NO
[2018-07-15 07:01] LABS: Bedside Glucose 97 mg/dL (70-110)
[2018-07-15 07:02] LABS: Hemoglobin A1c 5.3 % (4.2-6.3)
[2018-07-15] MEDS: buPROPion (XL) 150 MG TABLET.XL PO (07:36)
[2018-07-15] MEDS: Carvedilol 3.125 MG TABLET PO (07:37)
[2018-07-15] MEDS: Sertraline 100 MG Tablet 200 MG PO (07:38)
[2018-07-15 09:09] VITALS: BP 112/70; PULSE 68; RESP 18; TEMP 36.7; O2SAT 94
[2018-07-15] MEDS: APIXABAN 5 MG TABLET 10 MG PO (09:21)
--- NOTE | 2018-07-15 09:45 | PCM.PN.HOSP ---
Patient Problems: Active and Suspected Problems (Last Reviewed 07/10/18 @ 06:23 by Quinten Treoj MD) Catatonia schizophrenia (Acute) Hyperammonemia (Acute) Vitals/I&O's: Vital Signs Temp Pulse Resp BP Pulse Ox 98.1 F 68 18 112/70 94 07/15/18 09:09 07/15/18 09:09 07/15/18 09:09 07/15/18 09:09 07/15/18 09:09 Oxygen Delivery Method Room Air Weight: 106 kg Body Mass Index (BMI) 40.1 Finger Stick Blood Glucose 92 Intake and Output for Last 24 Hours 07/13/18 07/14/18 07/15/18 23:59 23:59 23:59 Intake Total 1734 / 1735 1947 200 / 200 Balance 173 / 1734 200 / 200 Laboratory Results 07/14/18 11:21: POC Glucose 154 H 07/14/18 16:40: POC Glucose 141 H 07/14/18 21:39: POC Glucose 106 07/15/18 05:38: WBC 8.3, RBC 4.25, Hgb 13.0, Hct 39.7, MCV 93.4, MCH 30.6, MCHC 32.7, RDW 12.1, RDW Differential 40.8, Plt Count 192, MPV 10.2, Immature Gran % (Auto) 0.100, Neut % (Auto) 63.2, Lymph % (Auto) 23.8, Harvey % (Auto) 8.8, Eos % (Auto) 4.0, Baso % (Auto) 0.1, Absolute Neuts (auto) 5.2, Absolute Lymphs (auto) 1.97, Total Counted Not Reportable 07/15/18 05:38: Sodium 143, Potassium 3.8, Chloride 108 H, Carbon Dioxide 27.0, Anion Gap 8, BUN 24 H, Creatinine 1.00, Estim Creat Clear Calc 58.12, Est GFR (MDRD) Af Amer 75, Est GFR (MDRD) Non-Af 62, BUN/Creatinine Ratio 24.0 H, Glucose 107 H, Calcium 8.7 07/15/18 05:38: Hemoglobin A1c 5.3 07/15/18 06:54: POC Glucose 97 Current Medications Apixaban (Eliquis) 5 mg PO BID [facility] Apixaban (Eliquis) 10 mg PO BID [facility] Stop: 07/21/18 22:01 Last Admin: 07/15/18 09:21 Dose: 10 mg Bupropion HCl (Wellbutrin Xl) 150 mg PO BID [facility] Last Admin: 07/15/18 07:36 Dose: 150 mg Carvedilol (Coreg) 3.125 mg PO BID [facility] Last Admin: 07/15/18 07:37 Dose: 3.125 mg Dextrose (D50w Syringe) 0 gm IV X1 PRN; Protocol PRN Reason: Hypoglycemia Glucagon () 1 mg IM .X1 PRN PRN Reason: Hypoglycemia Magnesium Hydroxide (Milk Of Magnesia) 30 ml PO DAILY PRN PRN PRN Reason: Constipation Nutritional Formula (Lactose Free) (Ensure Enlive) 120 ml PO 4X/DAY [facility] Last Admin: 07/15/18 07:42 Dose: 120 ml Sertraline HCl (Zoloft) 200 mg PO DAILY [facility] Last Admin: 07/15/18 07:38 Dose: 200 mg Sodium Chloride () 5 - 15 ml IV UD PRN PRN Reason: SALINE FLUSH Medical Necessity - Tobacco Use Smoking Status: Former smoker Assessment/Plan All Active Problems (Last Reviewed 07/10/18 @ 06:23 by Quinten Trejo MD) Diarrhea (Resolved) Acute encephalopathy (Resolved) Catatonia schizophrenia (Acute) Lactic acid acidosis (Resolved) STEPHANIE (acute kidney injury) (Resolved) Hyperammonemia (Acute) Nausea & vomiting (Resolved)
--- NOTE | 2018-07-15 11:05 | CASEMGMT ---
Social Work Note SW faxed updated clinicals to [facility]. Plan: [facility] pending pre-cert Shivani Morales MANAGER ASSEMBLY, SURVEY OPERATIONS DIRECTOR
[2018-07-15 11:15] LABS: Bedside Glucose 142 mg/dL (70-110)
--- NOTE | 2018-07-15 13:08 | PCM.TXEXTCAR ---
- Diet 07/12/18 11:55 Diet: Regular Diet Food consistency:: Mechanical Soft/Ground Liquid Consistency:: Regular/Thin Dietary Modifications:: Mechanical Soft Diet Is pt able to select menu?: No - Routine Orders/Code Status Routine Lab Work: CBC - within 3 days, BMP - within 3 days Code Status: Full Code - Therapies Weight Bearing: Weight bearing as tolerated Extremity Affected:: Bilateral Lower Physical Therapy: Eval and Treat Occupational Therapy: Eval and Treat Speech Therapy: Eval and Treat - Allergies/Procedures Done in Hospital Allergies/Adverse Reactions: Allergies No Known Allergies Allergy (Verified 07/09/18 21:24) Procedures: None - Type of Care/Length of Stay Estimated LOS: Convalescent Care Less Than 30 days Type of Care Needed: Skilled Rehab Potential: Good Prognosis: Good - Additional Orders/Day of Discharge Day of Discharge: 07/15/18 - Dietary and Speech Recommendations Dietitian Recommendations/Changes: Rec continue ONS medpass - will offer 4 oz ensure enlive at meals for increased nutrition if consumed. - Follow Up Care Please follow up with your Primary Care Physician in: within 2 weeks of discharge When: Psychiatrist within 2 weeks of hospital stay for chronic med management
--- NOTE | 2018-07-15 13:09 | DS.PCM_ITS ---
Discharge Date and Diagnosis - Problem List Patient Problems: Active and Suspected Problems (Last Reviewed 07/10/18 @ 06:23 by Quinten Trejo MD) Catatonia schizophrenia (Acute) Hyperammonemia (Acute) Date of Admission: 07/10/18 Date of Discharge: 07/15/18 - Primary Discharge Diagnosis Active and Suspected Problems (Last Reviewed 07/10/18 @ 06:23 by Quinten Trejo MD) Catatonia schizophrenia (Acute) Hyperammonemia (Acute) Altered mental status - Secondary Discharge Diagnosis Chronic Problems (Last Reviewed 07/10/18 @ 06:23 by Quinten Trejo MD) Bipolar disorder (Chronic) BALDEMAR (obstructive sleep apnea) (Chronic) CHF (congestive heart failure) (Chronic) HTN (hypertension) (Chronic) DVT (deep venous thrombosis) (Chronic) Hospital Course and Treatment Imaging Results: Clinical Impression(s) from Imaging Studies Brain CT 07/09/18 21:42 IMPRESSION: Normal unenhanced CT scan of the brain. Electronically Signed: Anna Hughes MD at 22:43 EST Tel , Service support , Chest X-Ray 07/09/18 21:50 IMPRESSION: Normal x-ray examination of the chest. Electronically Signed: Anna Hughes MD at 22:36 EST Tel , Service support , Consultations 07/10/18 11:01 Consult: Mental Health/Crisis Routine Reason for consult?: catatonia, behavioral issues history schizophrenia/bipolar Date Notified:: 07/10/18 Time notified:: 11:05 Operations: None Procedures: None Summary of Care Provided: 48-year-old female with past medical history of schizoaffective disorder, h ypertension, type II DM, chronic CHF, history of DVT/PE who was admitted with progressive lethargy. Patient has been managed as an acute catatonic schizophrenia. Patient was kept off her home zyprexa with improvement in her mentation. She was resumed on 5mg of zyprexa when patient was more awake. She was also found to have hyperammonemia, of unclear etiology which resolved later. She was continued on her Eliquis for her history of DVT. She was found by PT/OT to be very weak and a 2 person assist and was skilled for discharge to a SNF for subacute rehab. Patient Problems: Active and Suspected Problems (Last Reviewed 07/10/18 @ 06:23 by Quinten Trejo MD) Catatonia schizophrenia (Acute) Hyperammonemia (Acute) Subjective: Patient was seen and examined. Complains of slight dizziness which she says is improving. Denied any fever or chills or headache or palpitation. Orthostatic vitals have been negative. Patient has been encouraged to keep hydrating herself. Objective: Physical Exam General: Alert, Oriented x3, Cooperative, No apparent distress, Well developed HEENT: Atraumatic, PERRLA, EOMI, Normocephalic Oral: Moist Mucosa Neck: Supple, No Nuchal Rigidity, Trachea Midline, Thyroid Normal Size and Texture Lungs: Clear to auscultation, Normal air movement, No rhonchi, No wheeze, No rales Cardiovascular: Regular rate, Regular Rhythm, Normal S1, Normal S2, No murmurs, No Ectopic Activity, PMI Normal, No rub noted, No Gallop Abdomen: Bowel Sounds Present, Soft, Non Tender, Non-Distended, Obese, No hernia s noted Extremities: No clubbing, No cyanosis, No edema, Capillary Refill Less than 3 Seconds Skin: No rashes, No breakdown Musculoskeletal: No Tenderness to Palpation of Joints or Extremities Neurological: Cranial nerves II-XII grossly intact, weakness in lower extremities. Sensory exam intact to light touch and pain, Coordination normal Psych/Mental Status: Flat affect Alert and oriented to time, place, person, - Physical Exam Vital Signs Temp Pulse Resp BP Pulse Ox 98.1 F 68 18 112/70 94 07/15/18 09:09 07/15/18 09:09 07/15/18 09:09 07/15/18 09:09 07/15/18 09:09 Oxygen Delivery Method Room Air Weight: 106 kg Body Mass Index (BMI) 40.1 Finger Stick Blood Glucose 92 Intake and Output for Last 24 Hours 07/13/18 07/14/18 07/15/18 23:59 23:59 23:59 Intake Total 1735 / 1735 1948 / 1948 200 / 200 Balance 1735 / 1735 1948 / 1948 200 / 200 Laboratory Tests Past 24 Hrs 07/15/18 07/15/18 07/15/18 05:38 05:38 05:38 WBC 8.3 RBC 4.25 Hgb 13.0 Hct 39.7 MCV 93.4 MCH 30.6 MCHC 32.7 RDW 12.1 RDW Differential 40.8 Plt Count 192 MPV 10.2 Immature Gran % (Auto) 0.100 Neut % (Auto) 63.2 Lymph % (Auto) 23.8 [place] % (Auto) 8.8 Eos % (Auto) 4.0 Baso % (Auto) 0.1 Absolute Neuts (auto) 5.2 Absolute Lymphs (auto) 1.97 Total Counted Not Reportable Sodium 143 Potassium 3.8 Chloride 108 H Carbon Dioxide 27.0 Anion Gap 8 BUN 24 H Creatinine 1.00 Estim Creat Clear Calc 58.12 Est GFR (MDRD) Af Amer 75 Est GFR (MDRD) Non-Af 62 BUN/Creatinine Ratio 24.0 H Glucose 107 H Hemoglobin A1c 5.3 Calcium 8.7 POC Glucose 07/15/18 07/15/18 07/14/18 11:06 06:54 21:39 POC Glucose 142 H 97 106 07/14/18 16:40 POC Glucose 141 H Discharge Diet: Low fat/ Low Cholesterol, 2000 mg Sodium Diet Discharge Activity: Return to Normal Activity Home Medications: Medications to take at Discharge Carvedilol [Coreg (Beta Gabriela)] 3.125 mg PO BID 10/29/14 Lisinopril [Zestril] 2.5 mg PO DAILY 08/25/15 Furosemide 40 mg PO DAILY 03/09/17 Bupropion HCl [Wellbutrin Xl] 150 mg PO BID 06/26/18 Sertraline HCl [Zoloft] 200 mg PO DAILY 06/26/18 Metformin HCl ER 500 mg PO DAILY 07/09/18 Apixaban [Eliquis] 5 mg PO BID tablet 07/15/18 Apixaban [Eliquis] 10 mg PO BID #10 tablet 07/15/18 Ensure Enlive 120 ml PO 4X/DAY liquid 07/15/18 Olanzapine [Zyprexa] 5 mg PO DAILY #30 tablet 07/15/18 Following Prescrptions Were Given to Patient: Olanzapine [Zyprexa] 5 mg PO DAILY #30 tablet Primary Care Physician: Paty Catalan DO [Primary Care Provider] - Please follow up with your Primary Care Physician in: within 2 weeks of discharge When: Psychiatrist within 2 weeks of hospital stay for chronic med management Disposition: [facility] facility Minutes spent on discharge:: 40 Patient Condition:: Stable Medical Necessity - Tobacco Use Smoking Status: Former smoker Tobacco Use: Non-smoker Meaningful Use Info Meaningful Use Diagnoses (Choose all that apply): None applicable Code Visit Inpatient E&M: 52881 Disch Hosp
[2018-07-15 13:18] VITALS: BP 110/72; PULSE 84; RESP 18; TEMP 37.2; O2SAT 94
--- NOTE | 2018-07-15 14:19 | CASEMGMT ---
Social Work Note CHATA received message from Stacey at [facility] stating pre-cert has been obtained and pt is able to discharge today. Physician updated. CHATA faxed completed discharge paperwork to [facility] including transfer to extended care facility, signed medication list and any scripts. Originals in SNF folder and copy on pt's chart. RN states pt can be transported via cot. CHATA set up transportation through [facility] via cot for 5:00pm. Transportation form on SNF folder and copy on pt's chart. CHATA completed [facility] in [facility]. Originals in SNF folder and copy on pt's chart. CHATA updated RN, Pt, pt's daughter and Stacey at [facility] of transportation time. Pt's daughter states she will update her father, pt's of discharge and transportation time. Plan: Pt to discharge to [facility] today skilled with Maryann transporting via cot at 5:00pm Shivani Morales [employer], [employer]
[2018-07-15] MEDS: OLANZapine 2.5 MG Tablet 5 MG PO (14:37)
--- NOTE | 2018-07-15 15:55 | CASEMGMT ---
Social Work TC to patient's Ross. aware that patient will be picked up by [facility] company for transfer to [facility] today at 5:00pm. SEPIDEH Campuzano
[2018-07-15 16:50] LABS: Bedside Glucose 106 mg/dL (70-110)
--- NOTE | 2018-07-15 17:05 | NURSING ---
Report called to Candy the receiving nurse.
== END 2018-07-15 17:16 | disposition skilled nursing facility (03) | DRG 885 ==
LOC: ED 23:28 → PCU 23:50 → MS3 07-10 00:03
PROVIDERS: Family Medicine; Internal Medicine; Admitting Provider Hospitalist; Emergency Provider Emergency Medicine; Family Provider Internal Medicine; PCP Internal Medicine; Referring Provider Hospitalist; Visit Provider Internal Medicine
DX: F20.2 Catatonic schizophrenia (principal); E72.20 Disorder of urea cycle metabolism, unspecified; E87.2 Acidosis; E11.9 Type 2 diabetes mellitus without complications; F31.9 Bipolar disorder, unspecified; R33.9 Retention of urine, unspecified; R32 Unspecified urinary incontinence; I11.0 Hypertensive heart disease with heart failure; I50.9 Heart failure, unspecified; G47.33 Obstructive sleep apnea (adult) (pediatric); Z86.718 Personal history of other venous thrombosis and embolism; Z86.711 Personal history of pulmonary embolism; Z87.891 Personal history of nicotine dependence; Z79.899 Other long term (current) drug therapy; Z79.84 Long term (current) use of oral hypoglycemic drugs
CPT/HCPCS: 36415; 51702; 70450; 71045; 80048; 80053; 80061; 80307; 80320; 81001; 82140; 82550; 82962; 83036; 83605; 84443; 84484; 85025; 87804; 92526; 92610; 93005; 97162; 97165; 97530; 97802; 99285; J7030; A4216; G0480

== ENCOUNTER 2018-07-17 23:56 | Observation (INO) | payer OTHER, MEDICARE, SELFPAY ==
[2018-07-10 00:38] VITALS: BMI 40.1
[2018-07-17 23:57] VITALS: BP 105/70; PULSE 98; RESP 16; TEMP 36.7; O2SAT 93; BMI 38.0
[2018-07-18] VITALS (29 sets, daily range): BP systolic 81–146; BP diastolic 46–133; PULSE 67–89; RESP 12–23; TEMP 36.3–37; O2SAT 92–100; BMI 37.3
--- NOTE | 2018-07-18 | ED.RN ---
SITTER AT THE BEDSIDE
--- NOTE | 2018-07-18 00:16 | ED.RN ---
POISON CONTROL CALLED: [employer] IS A CATIONIC DETERGENT WITH THE RISK OF ORAL/THROAT/ESOPHAGEAL IRRITATION. RECOMMENDED 4HR POST INGESTION OBSERVATION FOR THIS IRRITATION. IF IRRITATION NOTED; GI CONSULT RECOMMENDED. THIS INFO RELAYED TO DR VINES. PT HAD LARGE EMESIS UPON ENTRY TO ED #5 AND WAS INCONTINENT OF SMALL LIQUID BM. DR. VINES AND POISON CONTROL INFORMED OF THIS. PT DENIES DISCOMFORT/IRRITATION OF MOUTH/THROAT AT THIS TIME; WILL CONTINUE TO MONITOR.
[2018-07-18 00:39] LABS: Absolute Lymphocyte Count 1.67 X10^3/ul (0.83-4.51); Absolute Neutrophil Count 10.3 X10^3/uL (2.0-7.7); Basophil# 0.02 X10^3/uL; Basophil% 0.2 % (0-1); Eosinophil# 0.08 X10^3/uL; Eosinophils% 0.6 % (0-5); Hematocrit 42.7 % (37-47); Hemoglobin 14.5 g/dl (12.0-15.0); Lymphocyte # 1.67 X10^3/ul (4.0); Lymphocyte % 12.9 % (19-41); Mean Corpuscular Hgb 31.4 pg (27.0-32.0); Mean Corpuscular Volume 92.4 fL (81-99); Mean Platelet Vol. 10.9 fl (6.2-12.0); Monocyte# 0.89 X10^3/uL; Monocyte% 6.9 % (0-10); Neutrophil # 10.25 X10^3/uL (2.7-7.7); Neutrophil % 79.2 % (47-70); POSITIVE COUNT NO; POSITIVE DIFFERENTIAL NO; POSITIVE MORPHOLOGY NO; Platelet Count 268 K/mm3 (150-450); RBC Distribution Width CV 12.3 % (11.6-14.6); RBC Distribution Width SD 41.1 fl (35.1-43.9); Red Blood Count 4.62 M/mm3 (4.2-5.4); White Blood Count 12.9 K/mm3 (4.4-11.0)
[2018-07-18 00:45] LABS: ALB/GLOB Ratio 0.9 RATIO (0.9-2.4); AST(SGOT) 23 U/L (15-37); Alanine Aminotransfer ALT/SGPT 23 U/L (13-56); Alkaline Phosphatase 99 U/L (45-117); Anion Gap 14 (5-15); BUN 44 mg/dL (7-18); BUN/Creat Ratio 28.8 RATIO (10-20); Chloride 102 mmol/L (98-107); Creatinine, Serum 1.53 mg/dL (0.55-1.02); EST Glomerular Filtration Rate 38 mL/min (>60); Est Glom Filt Rate - Afr Amer 46 mL/min (>60); Estimated Creatinine Clearance 37.99 ml/min; Globulin 4.5 g/dL (2.2-4.2); Glucose 175 mg/dL (74-106); Potassium 3.2 mmol/L (3.5-5.1); Protein, Total 8.5 g/dL (6.4-8.2); Sodium Level 139 mmol/L (136-145)
[2018-07-18] MEDS: 0.9% Normal Saline 1,000 ML 1000 ML IV (00:50)
[2018-07-18] MEDS: Ondansetron 4 MG/2 ML Vial IV ×2 (00:50→15:46)
--- NOTE | 2018-07-18 00:54 | ED.RN ---
DEEPAK FROM CRISIS ALREADY IN THE DEPARTMENT. NOTIFIED HER THAT THIS PT WILL NEED EVALUATED WHEN MEDICALLY CLEARED.
[2018-07-18 01:04] LABS: Amphetamine Urine VISTA POSITIVE (<1000 ng/mL); Barbiturate Urine VISTA NEGATIVE (< 200 ng/mL); Benzodiazepine Urine VISTA NEGATIVE (< 200 ng/mL); Cocaine Urine VISTA NEGATIVE (< 300 ng/mL); Ecstacy Urine VISTA POSITIVE (< 500 ng/mL); Methadone Urine VISTA NEGATIVE (< 300 ng/mL); PCP Urine VISTA NEGATIVE (< 25 ng/mL); THC Urine VISTA NEGATIVE (< 50 ng/mL); Vista UDS pH Range 5
--- NOTE | 2018-07-18 01:07 | ED.RN ---
PER ECF, INGESTED AROUND [id number]
--- NOTE | 2018-07-18 02:30 | PCM.HP.STD ---
Problem List (1) Suicide attempt by drug ingestion Status: Acute Qualifiers: Encounter type: initial encounter Qualified Code(s): T50.902A - Poisoning by unspecified drugs, medicaments and biological substances, intentional self-harm, initial encounter (2) Bipolar disorder Status: Chronic Qualifiers: Active/Remission status: remission status unspecified Qualified Code(s): F31.9 - Bipolar disorder, unspecified (3) Catatonia schizophrenia Status: Chronic (4) BALDEMAR (obstructive sleep apnea) Status: Chronic (5) CHF (congestive heart failure) Status: Chronic Qualifiers: Heart failure type: unspecified Heart failure chronicity: unspecified Qualified Code(s): I50.9 - Heart failure, unspecified (6) HTN (hypertension) Status: Chronic Qualifiers: Hypertension type: essential hypertension Qualified Code(s): I10 - Essential (primary) hypertension (7) DVT (deep venous thrombosis) Status: Chronic Qualifiers: Affected thrombotic vein of extremity: unspecified vein of extremity Chronicity: unspecified Laterality: unspecified laterality History of Present Illness Date of Admission: 07/18/18 Chief Complaint: Suicide attempt. The patient is a 48 y/o F w/ PMHx: Catatonic schizophrenia, bipolar disorder, CHF unclear type and cardiomyopathy unclear type, hypertension, BALDEMAR, peptic ulcer disease, history of DVT and PE on anticoagulation oral therapy, Diabetes mellitus type II, recently discharged following admission from 07/09/18-07/15/18 w/ transition to SNF following evaluation and treatment for possibly worsening lethargy managed as an acute catatonic schizophrenic with Zyprexa initially held with improvement in mentation with restart once more alert in addition to noted hyper ammonia of unclear etiology which resolved who now re-presents from SNF to the [facility] ED on 07/18/18 with purposeful suicide intention with oral intake of 3 bottles of uncertain size of cleansing body solution with per poison control possibility of positive ion toxicity with risk of esophageal burn with nausea and emesis while in the ED with report to ED physician that she wishes to pass peacefully. She does admit that she has been hearing voices while at the [facility] facility but states that these have not told her to hurt herself or anyone else. In the ED work-up included CBC with W BC 12.9, hemoglobin 14.5, platelet 268 with left shift, CMP with potassium 3.2, BUN/Cr 44/1.53, glucose 175, unremarkable hepatic profile, urine drug screen with positive amphetamine and methamphetamine. The ED patient administered Zofran, normal saline. Past Medical History Past Medical History (Chronic Problems): Chronic Problems (Last Reviewed 07/10/18 @ 06:23 by Quinten Trejo MD) Bipolar disorder (Chronic) Catatonia schizophrenia (Chronic) BALDEMAR (obstructive sleep apnea) (Chronic) CHF (congestive heart failure) (Chronic) HTN (hypertension) (Chronic) DVT (deep venous thrombosis) (Chronic) Medical History: Medical History (Last Reviewed 07/10/18 @ 06:23 by Quinten Trejo MD) BALDEMAR (obstructive sleep apnea) (Chronic) G47.33 CHF (congestive heart failure) (Chronic) I50.9 HTN (hypertension) (Chronic) I10 Nausea & vomiting (Resolved) R11.2 DVT (deep venous thrombosis) (Chronic) I82.409 Palpitation (Inactive) R00.2 Dizzy (Inactive) R42 Bipolar 1 disorder F31.9 Cardiomyopathy I42.9 Eczema L30.9 IBS (irritable bowel syndrome) K58.9 PUD (peptic ulcer disease) K27.9 Pulmonary embolism I26.99 Schizophrenia F20.9 Allergies No Known Allergies Allergy (Verified 07/18/18 00:21) Home Medications: Ambulatory Orders Medication Instructions Recorded Carvedilol [Coreg (Beta Gabriela)] 3.125 mg PO BID 10/29/14 Lisinopril [Zestril] 2.5 mg PO DAILY 08/25/15 Furosemide 40 mg PO DAILY 03/09/17 Bupropion HCl [Wellbutrin Xl] 150 mg PO BID 06/26/18 Sertraline HCl [Zoloft] 200 mg PO DAILY 06/26/18 Metformin HCl ER 500 mg PO DAILY 07/09/18 Acetaminophen 650 mg RC Q4H PRN PRN 07/18/18 Acetaminophen [8 Hour] 650 mg PO Q4H PRN PRN 07/18/18 Apixaban [Eliquis] 15 mg PO BID 07/18/18 Bisacodyl 10 mg RC X1 PRN 07/18/18 Guaifenesin [Robitussin] 10 ml PO Q4H PRN PRN 07/18/18 Magnesium Hydroxide [Milk Of 30 ml PO DAILY PRN PRN 07/18/18 Magnesia] Olanzapine [Zyprexa] 5 mg PO QHS 07/18/18 Surgical History: Surgical History (Last Reviewed 07/10/18 @ 06:23 by Quinten Trejo MD) History of esophagogastroduodenoscopy (EGD) Z98.890 S/P cholecystectomy Z90.49 S/P dilation and curettage Z98.890 S/P hysterectomy Z90.710 S/P nasal septoplasty Z98.890 Surgical History: cholecystectomy, hysterectomy, - - nasa surgery Psychiatric History: Anxiety, Depression, Schizophrenia NEUROSURGICAL PHYSICIAN ASSISTANT History: No pertinent NEUROSURGICAL PHYSICIAN ASSISTANT history Lives: Group Home Smoking Status: Former smoker Tobacco Use: Non-smoker Alcohol: None Drugs: None - *Family History Maternal Family History: Family History (Last Reviewed 07/10/18 @ 06:23 by Quinten Trejo MD) Mother Breast cancer History Items: Heart Disease Paternal Family History: Family History (Last Reviewed 07/10/18 @ 06:23 by Quinten Trejo MD) Mother Breast cancer History Items: Cancer, - - colon cancer VTE Information - Inpt Only VTE Present on Admission: No VTE Mechan Device Prophylaxis: SCD's VTE Pharm Prophylaxis ordered?: Yes Patient Problems: Active and Suspected Problems (Last Reviewed 07/10/18 @ 06:23 by Quinten Trejo MD) Suicide attempt by drug ingestion (Acute) Subjective: Seated upright in ED bed, intermittently tearful, admits to suicidal thoughts and attempt. Objective: Physical Examination: General: awake, alert, oriented to self, place, recent events, remains cooperative, seated upright in the ED bed, tearful during examination. Skin: normal color, turgor, no icterus, cyanosis. HEENT: AT/NC, EOMI, PERRLA, mildly dry MM, no carotid bruits or JVD noted. Lungs: CTA bilaterally, moderate effort, mild decrease BL bases, no rales, ronchi or wheezing. Heart: Regular rate and rhythm; no gallop, rub audible. Abdomen: soft, obese, NTTP, ND, normal BS, no HSM. Extremities: no cyanosis, clubbing, or edema. Neurological: patient awake, alert, oriented as noted; cognitive function appears intact but decreased from recent baseline upon SNF transition; pupils equally reactive to light and accomodation; cranial nerves II-XII grossly normal, moving all 4 extremities, no focal deficits, strength preserved. Psychiatric: affect appears tearful, mildly agitated, admits to suicide attempt. - Physical Exam Vital Signs Temp Pulse Resp BP Pulse Ox 98.0 F 85 16 114/82 H 94 07/17/18 23:57 07/18/18 02:06 07/18/18 02:06 07/18/18 02:06 07/18/18 02:06 Oxygen Delivery Method Room Air Weight: 222 lb Body Mass Index (BMI) 38.0 Finger Stick Blood Glucose 92 Laboratory Tests Past 24 Hrs 07/18/18 07/18/18 07/18/18 00:05 00:05 00:05 WBC 12.9 H RBC 4.62 Hgb 14.5 Hct 42.7 MCV 92.4 MCH 31.4 MCHC 34.0 RDW 12.3 RDW Differential 41.1 Plt Count 268 MPV 10.9 Immature Gran % (Auto) 0.200 Neut % (Auto) 79.2 H Lymph % (Auto) 12.9 L [place] % (Auto) 6.9 Eos % (Auto) 0.6 Baso % (Auto) 0.2 Absolute Neuts (auto) 10.3 H Absolute Lymphs (auto) 1.67 Total Counted Not Reportable Sodium 139 Potassium 3.2 L Chloride 102 Carbon Dioxide 23.0 Anion Gap 14 BUN 44 H Creatinine 1.53 H Estim Creat Clear Calc 37.99 Est GFR (MDRD) Af Amer 46 L Est GFR (MDRD) Non-Af 38 L BUN/Creatinine Ratio 28.8 H Glucose 175 H Calcium 9.0 Total Bilirubin 0.80 AST 23 ALT 23 Alkaline Phosphatase 99 Total Protein 8.5 H Albumin 4.0 Globulin 4.5 H Albumin/Globulin Ratio 0.9 Urine Opiates Screen Urine Methadone Screen Ur Barbiturates Screen Ur Phencyclidine Scrn Ur Amphetamines Screen U Methamphetamin-MDMA U Benzodiazepines Scrn Urine Cocaine Screen U Cannabinoids Screen Ur Drug Screen Comment Ethyl Alcohol 15.0 07/18/18 00:45 WBC RBC Hgb Hct MCV MCH MCHC RDW RDW Differential Plt Count MPV Immature Gran % (Auto) Neut % (Auto) Lymph % (Auto) [place] % (Auto) Eos % (Auto) Baso % (Auto) Absolute Neuts (auto) Absolute Lymphs (auto) Total Counted Sodium Potassium Chloride Carbon Dioxide Anion Gap BUN Creatinine Estim Creat Clear Calc Est GFR (MDRD) Af Amer Est GFR (MDRD) Non-Af BUN/Creatinine Ratio Glucose Calcium Total Bilirubin AST ALT Alkaline Phosphatase Total Protein Albumin Globulin Albumin/Globulin Ratio Urine Opiates Screen NEGATIVE Urine Methadone Screen NEGATIVE Ur Barbiturates Screen NEGATIVE Ur Phencyclidine Scrn NEGATIVE Ur Amphetamines Screen POSITIVE H U Methamphetamin-MDMA POSITIVE H U Benzodiazepines Scrn NEGATIVE Urine Cocaine Screen NEGATIVE U Cannabinoids Screen NEGATIVE Ur Drug Screen Comment Ethyl Alcohol Assessment/Plan All Active Problems (Last Reviewed 07/10/18 @ 06:23 by Quinten Trejo MD) Suicide attempt by drug ingestion (Acute) Diarrhea (Resolved) Acute encephalopathy (Resolved) Lactic acid acidosis (Resolved) STEPHANIE (acute kidney injury) (Resolved) Hyperammonemia (Acute) Nausea & vomiting (Resolved) The patient is a 48 y/o F w/ PMHx: Catatonic schizophrenia, bipolar disorder, CHF unclear type and cardiomyopathy unclear type, hypertension, BALDEMAR, peptic ulcer disease, history of DVT and PE on anticoagulation oral therapy, Diabetes mellitus type II, recently discharge following admission from 07/09/18-07/15/18 w/ worsening lethargy managed as an acute catatonic schizophrenic with Zyprexa initially held with improvement who now re-presents from SNF to the [facility] ED on 07/18/18 with purposeful suicide intention with oral intake of 3 bottles of uncertain size of cleansing body solution. (1) Catatonic schizophrenia, bipolar disorder w/ Suicide Ingestion Attempt: Per poison control noted positive and toxicity possibility with risk primarily of esophageal burn, given patient presentation, recent catatonic schizophrenic acute episode with eventual transition to [facility] facility, will admit to the ICU, maintain on suicide precautions, continue to hydrate, continue home Zoloft, Wellbutrin and Zyprexa regimen which have been altered from her initial regimen prior she had been notably lethargic, sedate and catatonic therefore these have been restarted at a lower dose which will eventually need to be transitioned upward but will defer this to inpatient psychiatric facility, request ICU consultation, request crisis evaluation with repeat a.m. labs with need for transition to inpatient psychiatric facility. (2) Acute kidney injury: Secondary to intake, dehydration, acute presentation. Admission BUN/Cr 44/1.53, prior baseline creatinine noted to be 0.8. Will hydrate, hold nephrotoxic medications and repeat chemistry in AM. (3) Hypokalemia: Admission K+ 3.2, supplementation given, repeat level in AM. (4) CHF Unclear type, Cardiomyopathy Unclear Type: Will maintain on hydration given acute presentation, monitor pulmonary status, continue home Coreg, holding lisinopril and Lasix given AK I presentation, not on statin therapy. (5) Hypertension: Continue home regimen including Coreg, holding lisinopril and Lasix temporarily given STEPHANIE, PRN hydralazine. (6) Hyperlipidemia: Not on regimen, defer given acute presentation (7) Diabetes mellitus type II: Hold oral home regimen, ADA diet, accu checks w/ ISS. (8) History of PE/DVT: Maintain on home eliquis regimen which upon discharge had been reinitiated at 10 mg twice daily times 7 days with eventual transition to 5 mg twice daily secondary to prior cessation. (9) PUD/GERD: PPI. (10) BALDEMAR: CPAP if patient amenable. (11) Obesity: Weight loss and lifestyle changes encouraged. (12) DVT Prophylaxis: SCDs, eliquis. Code Visit OBSV E&M: 96709 Initial observation care L3
--- NOTE | 2018-07-18 02:49 | ED.DCSUM_ITS ---
- ER Visit Summary Date of Service: 07/18/18 Chief Complaint: [Ingestion and suicidal ideation] History of Present Illness: The patient is a 48 F [presents to the emergency department from [facility] after an intentional ingestion of 3 bottles of body soap. Patient tells me she was trying to peacefully. Patient denies any hallucinations currently. Patient does have a history of depression. Patient denies any chest pain or abdominal pain. Patient did vomit on arrival to the emergency department. Patient is unable to tell me when the ingestion occurred. She denies any abdominal pain currently.] Physical Examination: [HEENT-PERRLA, EOMI. Cranial nerves II through XII grossly intact. TMs clear. Mucous membranes moist. No adenopathy. Cardiovascular-regular rate and rhythm without murmur or ectopy Lungs-clear to auscultation, chest wall stable without crepitus or subcu emphysema Abdomen-normoactive bowel sounds, soft, nontender, no rebound or rigidity, no peritoneal signs. Extremities-intact ?4, normal range of motion, normal pulses, atraumatic] Test Results: [CBC with differential obtained showed a white blood cell count of 12.9, hemoglobin 14, hematocrit 43, platelets 268. Chemistries unremarkable other than a slightly depressed potassium at 3.2. Toxicology screen was positive for amphetamines. Alcohol was negative.] Emergency Department Course and Treatment: [Patient received normal saline and Zofran for her nausea. Case was discussed with poison control.] Treatment Plan: [With the ingestion there is concern for possibility of rojas to the esophagus. Patient will be admitted for an observation. And then evaluation by crisis for psychiatric facility.] Disposition: [Admit] Impression: [Ingestion Suicidal ideation Depression] This note was generated with [employer] dictation software. It may contain incorrect words, spelling, and punctuation that were not noted in review of the chart prior to signing ED Disposition - Plan for ED Patient: Chief Complaint: Suicidal Referrals: Paty Catalan DO [Primary Care Provider] -
[2018-07-18 04:04] LABS: Acetaminophen (Tylenol) Level < 10.0 ug/mL (10.0-30.0); Salicylate < 1.7 mg/dL (2.8-20.0)
[2018-07-18 04:32] LABS: Absolute Lymphocyte Count 2.01 X10^3/ul (0.83-4.51); Absolute Neutrophil Count 9.6 X10^3/uL (2.0-7.7); Basophil# 0.02 X10^3/uL; Basophil% 0.2 % (0-1); Eosinophil# 0.03 X10^3/uL; Eosinophils% 0.2 % (0-5); Hematocrit 39.4 % (37-47); Hemoglobin 13.3 g/dl (12.0-15.0); Lymphocyte # 2.01 X10^3/ul (4.0); Lymphocyte % 15.9 % (19-41); Mean Corp Hgb Conc 33.8 g/gl (32-36); Mean Corpuscular Hgb 31.4 pg (27.0-32.0); Mean Corpuscular Volume 93.1 fL (81-99); Mean Platelet Vol. 10.5 fl (6.2-12.0); Monocyte# 0.97 X10^3/uL; Monocyte% 7.7 % (0-10); Neutrophil # 9.56 X10^3/uL (2.7-7.7); Neutrophil % 75.8 % (47-70); Platelet Count 236 K/mm3 (150-450); RBC Distribution Width CV 12.3 % (11.6-14.6); RBC Distribution Width SD 41.2 fl (35.1-43.9); Red Blood Count 4.23 M/mm3 (4.2-5.4); White Blood Count 12.6 K/mm3 (4.4-11.0)
[2018-07-18 04:40] LABS: POSITIVE COUNT NO; POSITIVE DIFFERENTIAL NO; POSITIVE MORPHOLOGY NO
[2018-07-18] MEDS: Pantoprazole Sodium 40 MG Tablet PO ×2 (04:46→21:16)
[2018-07-18 05:20] LABS: ALB/GLOB Ratio 0.9 RATIO (0.9-2.4); AST(SGOT) 18 U/L (15-37); Alanine Aminotransfer ALT/SGPT 22 U/L (13-56); Albumin, Serum 3.5 g/dL (3.2-5.0); Alkaline Phosphatase 86 U/L (45-117); Anion Gap 10 (5-15); BUN 37 mg/dL (7-18); BUN/Creat Ratio 31.4 RATIO (10-20); Calcium,Total 8.5 mg/dL (8.5-10.1); Chloride 104 mmol/L (98-107); Creatinine, Serum 1.18 mg/dL (0.55-1.02); EST Glomerular Filtration Rate 51 mL/min (>60); Est Glom Filt Rate - Afr Amer 62 mL/min (>60); Estimated Creatinine Clearance 49.25 ml/min; Globulin 3.9 g/dL (2.2-4.2); Glucose 116 mg/dL (74-106); Magnesium 2.3 mg/dL (1.6-2.6); Potassium 3.5 mmol/L (3.5-5.1); Protein, Total 7.4 g/dL (6.4-8.2); Sodium Level 142 mmol/L (136-145)
[2018-07-18] MEDS: 0.9% Normal Saline 1,000 ML 125 ML IV ×3 (06:01→21:15)
[2018-07-18 06:11] LABS: Bedside Glucose 98 mg/dL (70-110)
--- NOTE | 2018-07-18 07:08 | CON.PCM_ITS ---
Problem List (1) Suicide attempt by drug ingestion Status: Acute Qualifiers: Encounter type: initial encounter Qualified Code(s): T50.902A - Poisoning by unspecified drugs, medicaments and biological substances, intentional self- harm, initial encounter (2) Bipolar disorder Status: Chronic Qualifiers: Active/Remission status: remission status unspecified Qualified Code(s): F31.9 - Bipolar disorder, unspecified (3) Catatonia schizophrenia Status: Chronic (4) STEPHANIE (acute kidney injury) Status: Resolved (5) BALDEMAR (obstructive sleep apnea) Status: Chronic (6) CHF (congestive heart failure) Status: Chronic Qualifiers: Heart failure type: unspecified Heart failure chronicity: unspecified Qualified Code(s): I50.9 - Heart failure, unspecified (7) HTN (hypertension) Status: Chronic Qualifiers: Hypertension type: essential hypertension Qualified Code(s): I10 - Essential (primary) hypertension (8) DVT (deep venous thrombosis) Status: Chronic Qualifiers: Affected thrombotic vein of extremity: unspecified vein of extremity Chronicity: unspecified Laterality: unspecified laterality Reason for Consult Date of Consultation: 07/18/18 Reason for Consultation: Ingestion History of Present Illness: The patient is a 48 year old F, with past medical history listed below, who presented to [facility] on 07/18/2018 secondary to ingestion of 3 bottles of body soap intentionally while at a senior living. Patient reportedly had told the ER she was trying to peacefully. Patient reportedly had stated that she had heard some voices, but they are not told her to hurt her self. Patient does have a history of depression and catatonic schizophrenia. Patient did have an emesis on presentation to the emergency department, but denied any abdominal pain. Initial workup showed an elevated white blood cell count of 12.9 and slightly decreased potassium at 3.2. Patient was positive for amphetamines on tox screen, but alcohol was negative. Poison control was contacted and there was some concern for possible esophagitis versus gastritis, so patient was admitted to the intensive care unit for further evaluation. Since being in the intensive care unit, patient was relatively calm until approximately 6 AM. At that time, patient became impulsive and aggressive. Patient had removed her IV and stated that the staff are trying to kill her. Attempts at verbal redirection were unsuccessful. Patient did receive a new IV with Haldol IV with good response. Patient continued to try to get out of the bed, so had to be restrained. Patient is stating that she hears voices at this time, but will not tell me what they are saying. Patient continues to state I just wanted to make things right. Patient is not answering as to her intention on my investigation. Unable to obtain a full review of systems at this time. Past Medical History Past Medical History (Chronic Problems): Chronic Problems (Last Reviewed 07/10/18 @ 06:23 by Quinten Trejo MD) Bipolar disorder (Chronic) Catatonia schizophrenia (Chronic) BALDEMAR (obstructive sleep apnea) (Chronic) CHF (congestive heart failure) (Chronic) HTN (hypertension) (Chronic) DVT (deep venous thrombosis) (Chronic) Medical History: Medical History (Last Reviewed 07/10/18 @ 06:23 by Quinten Trejo MD) BALDEMAR (obstructive sleep apnea) (Chronic) G47.33 CHF (congestive heart failure) (Chronic) I50.9 HTN (hypertension) (Chronic) I10 Nausea & vomiting (Resolved) R11.2 DVT (deep venous thrombosis) (Chronic) I82.409 Palpitation (Inactive) R00.2 Dizzy (Inactive) R42 Bipolar 1 disorder F31.9 Cardiomyopathy I42.9 Eczema L30.9 IBS (irritable bowel syndrome) K58.9 PUD (peptic ulcer disease) K27.9 Pulmonary embolism I26.99 Schizophrenia F20.9 Allergies No Known Allergies Allergy (Verified 07/18/18 00:21) Home Medications: Ambulatory Orders Medication Instructions Recorded Carvedilol [Coreg (Beta Gabriela)] 3.125 mg PO BID 10/29/14 Lisinopril [Zestril] 2.5 mg PO DAILY 08/25/15 Furosemide 40 mg PO DAILY 03/09/17 Bupropion HCl [Wellbutrin Xl] 450 mg PO DAILY 06/26/18 Sertraline HCl [Zoloft] 200 mg PO DAILY 06/26/18 Metformin HCl ER 500 mg PO DAILY 07/09/18 Acetaminophen 650 mg RC Q4H PRN PRN 07/18/18 Acetaminophen [8 Hour] 650 mg PO Q4H PRN PRN 07/18/18 Apixaban [Eliquis] 5 mg PO BID 07/18/18 Bisacodyl 10 mg RC X1 PRN 07/18/18 Guaifenesin [Robitussin] 10 ml PO Q4H PRN PRN 07/18/18 Magnesium Hydroxide [Milk Of 30 ml PO DAILY PRN PRN 07/18/18 Magnesia] Olanzapine [Zyprexa] 5 mg PO QHS 07/18/18 Surgical History: Surgical History (Last Reviewed 07/10/18 @ 06:23 by Quinten Trejo MD) History of esophagogastroduodenoscopy (EGD) Z98.890 S/P cholecystectomy Z90.49 S/P dilation and curettage Z98.890 S/P hysterectomy Z90.710 S/P nasal septoplasty Z98.890 Surgical History: cholecystectomy, hysterectomy, - - nasa surgery Psychiatric History: Anxiety, Depression, Schizophrenia GROUP MANAGING DIRECTOR History: No pertinent GROUP MANAGING DIRECTOR history Lives: [facility] Smoking Status: Former smoker Tobacco Use: Non-smoker Alcohol: None Drugs: None - *Family History Maternal Family History: Family History (Last Reviewed 07/10/18 @ 06:23 by Quinten Trejo MD) Mother Breast cancer History Items: Heart Disease Paternal Family History: Family History (Last Reviewed 07/10/18 @ 06:23 by Quinten Terjo MD) Mother Breast cancer History Items: Cancer, - - colon cancer Review of Systems Unable to obtain accurate/complete ROS d/t: See HPI Patient Problems: Active and Suspected Problems (Last Reviewed 07/10/18 @ 06:23 by Quinten Trejo MD) Suicide attempt by drug ingestion (Acute) - Physical Exam General: Alert, Confused, Disoriented, Non-Cooperative, - - Obese. No conversational dyspnea. HEENT: Atraumatic, PERRLA, EOMI, Normocephalic, - - Glasses in place. Oral: Moist Mucosa, No Gingival or Mucosal Lesions/ Ulcerations Neck: Supple, No JVD, No Nodes, Trachea Midline Lungs: Clear to auscultation, Normal air movement, No rhonchi, No wheeze, No rales, - - Symmetric expansion. No dullness to percussion. Cardiovascular: Regular rate, Regular Rhythm, Normal S1, Normal S2, No murmurs, No rub noted, No Gallop Abdomen: Bowel Sounds Present, Soft, Non Tender, Non-Distended, Obese Extremities: No clubbing, No cyanosis, No edema, Capillary Refill Less than 3 Seconds Skin: No rashes, No breakdown Musculoskeletal: No Tenderness to Palpation of Joints or Extremities Lymphatic: No Cervical, Supraclavicular, or Inguinal Adenopathy Neurological: Cranial nerves II-XII grossly intact, Neuro grossly intact, Motor Exam 5/5 strength throughout Psych/Mental Status: Anxious, Impulsive, Restless Vital Signs Temp Pulse Resp BP Pulse Ox 37.0 C 83 19 H 108/62 97 07/18/18 04:00 07/18/18 07:00 07/18/18 07:00 07/18/18 07:00 07/18/18 06:06 Oxygen Delivery Method Room Air Weight: 98.6 kg Body Mass Index (BMI) 37.3 Finger Stick Blood Glucose 92 Intake and Output for Last 24 Hours 07/16/18 07/17/18 07/18/18 23:59 23:59 23:59 Intake Total 900 / 900 Balance 900 / 900 Laboratory Tests Past 24 Hrs 07/18/18 07/18/18 07/18/18 00:05 00:05 00:05 WBC 12.9 H RBC 4.62 Hgb 14.5 Hct 42.7 MCV 92.4 MCH 31.4 MCHC 34.0 RDW 12.3 RDW Differential 41.1 Plt Count 268 MPV 10.9 Immature Gran % (Auto) 0.200 Neut % (Auto) 79.2 H Lymph % (Auto) 12.9 L [place] % (Auto) 6.9 Eos % (Auto) 0.6 Baso % (Auto) 0.2 Absolute Neuts (auto) 10.3 H Absolute Lymphs (auto) 1.67 Total Counted Not Reportable Sodium 139 Potassium 3.2 L Chloride 102 Carbon Dioxide 23.0 Anion Gap 14 BUN 44 H Creatinine 1.53 H Estim Creat Clear Calc 37.99 Est GFR (MDRD) Af Amer 46 L Est GFR (MDRD) Non-Af 38 L BUN/Creatinine Ratio 28.8 H Glucose 175 H Calcium 9.0 Magnesium Total Bilirubin 0.80 AST 23 ALT 23 Alkaline Phosphatase 99 Total Protein 8.5 H Albumin 4.0 Globulin 4.5 H Albumin/Globulin Ratio 0.9 Salicylates Urine Opiates Screen Urine Methadone Screen Acetaminophen Ur Barbiturates Screen Ur Phencyclidine Scrn Ur Amphetamines Screen U Methamphetamin-MDMA U Benzodiazepines Scrn Urine Cocaine Screen U Cannabinoids Screen Ur Drug Screen Comment Ethyl Alcohol 15.0 07/18/18 07/18/18 07/18/18 00:05 00:45 04:20 WBC RBC Hgb Hct MCV MCH MCHC RDW RDW Differential Plt Count MPV Immature Gran % (Auto) Neut % (Auto) Lymph % (Auto) Ren[place] % (Auto) Eos % (Auto) Baso % (Auto) Absolute Neuts (auto) Absolute Lymphs (auto) Total Counted Sodium 142 Potassium 3.5 Chloride 104 Carbon Dioxide 28.0 Anion Gap 10 BUN 37 H Creatinine 1.18 H Estim Creat Clear Calc 49.25 Est GFR (MDRD) Af Amer 62 Est GFR (MDRD) Non-Af 51 L BUN/Creatinine Ratio 31.4 H Glucose 116 H Calcium 8.5 Magnesium 2.3 Total Bilirubin 0.70 AST 18 ALT 22 Alkaline Phosphatase 86 Total Protein 7.4 Albumin 3.5 Globulin 3.9 Albumin/Globulin Ratio 0.9 Salicylates < 1.7 L Urine Opiates Screen NEGATIVE Urine Methadone Screen NEGATIVE Acetaminophen < 10.0 L Ur Barbiturates Screen NEGATIVE Ur Phencyclidine Scrn NEGATIVE Ur Amphetamines Screen POSITIVE H U Methamphetamin-MDMA POSITIVE H U Benzodiazepines Scrn NEGATIVE Urine Cocaine Screen NEGATIVE U Cannabinoids Screen NEGATIVE Ur Drug Screen Comment Ethyl Alcohol 07/18/18 04:20 WBC 12.6 H RBC 4.23 Hgb 13.3 Hct 39.4 MCV 93.1 MCH 31.4 MCHC 33.8 RDW 12.3 RDW Differential 41.2 Plt Count 236 MPV 10.5 Immature Gran % (Auto) 0.200 Neut % (Auto) 75.8 H Lymph % (Auto) 15.9 L [place] % (Auto) 7.7 Eos % (Auto) 0.2 Baso % (Auto) 0.2 Absolute Neuts (auto) 9.6 H Absolute Lymphs (auto) 2.01 Total Counted Not Reportable Sodium Potassium Chloride Carbon Dioxide Anion Gap BUN Creatinine Estim Creat Clear Calc Est GFR (MDRD) Af Amer Est GFR (MDRD) Non-Af BUN/Creatinine Ratio Glucose Calcium Magnesium Total Bilirubin AST ALT Alkaline Phosphatase Total Protein Albumin Globulin Albumin/Globulin Ratio Salicylates Urine Opiates Screen Urine Methadone Screen Acetaminophen Ur Barbiturates Screen Ur Phencyclidine Scrn Ur Amphetamines Screen U Methamphetamin-MDMA U Benzodiazepines Scrn Urine Cocaine Screen U Cannabinoids Screen Ur Drug Screen Comment Ethyl Alcohol POC Glucose 07/18/18 05:59 POC Glucose 98 Assessment/Plan Active and Suspected Problems (Last Reviewed 07/10/18 @ 06:23 by Quinten Trejo MD) Suicide attempt by drug ingestion (Acute) RECOMMENDATIONS: 1. Continue Haldol as needed for agitation 2. Possibly reinitiate baseline medications once patient more appropriate 3. Crisis evaluation later today 4. Recheck labs at 12:00 IMPRESSIONS: 1. Suicide attempt with history of catatonic schizophrenia and bipolar disorder Patient appears to be actively hallucinating by my evaluation. Patient does have multiple psychiatric medications at baseline. Patient appears to be in a psychotic crisis leading to ingestion. Poison control reports that esophagitis and gastritis should be evident after 4 hours. Haldol has been given for acute agitation. We will recheck electrolytes and CBC at noon. If stable, possible crisis evaluation later today. 2. Acute kidney injury/hypokalemia Possible toxic effects of ingestion. We will recheck electrolytes later today. Patient appears to be responding well to IV hydration. No indication for renal replacement therapy at this time. 3. Reported CHF/hypertension/hyperlipidemia Unclear status of patient's heart. Patient is on Lasix at baseline. Lisinopril and Lasix have been held secondary to acute kidney injury. Patient can continue with Coreg therapy. Patient is reportedly not on a statin therapy at baseline. 4. Diabetes mellitus/reported BALDEMAR/obesity/history of DVT PE Complicates care, management, recovery and prognosis. Patient can likely be continued on anticoagulation from a medical standpoint. Code Visit Inpatient E&M: 87715 Init Hosp L2
[2018-07-18] MEDS: Haloperidol Lactate 5 MG/ML Vial IV (07:22)
--- NOTE | 2018-07-18 08:03 | PCM.PN.BLA ---
Progress Note Patient was seen and examined in ICU. Had with suicidal attempt. Patient was recently admitted and discharged for acute catatonic schizophrenia episode. She reportedly drank 3 bottles of personal cleanser in the custodial facility. Poison control was contacted, recommended monitoring for GI injury. Did not receive activated charcoal in the ED because of episode of vomiting. Currently medicated with haldol for agitation. Sedated now. Vitals appears stable; blood pressure relatively low. On oxygen Labs reviewed, leukocytosis present, hypokalemia improved, dehydration with increased creatinine improved. Meds reviewed; continue to monitor in the ICU with sitter Code Visit Inpatient E&M: 60832 Subs Hosp L2
[2018-07-18] MEDS: Carvedilol 3.125 MG TABLET PO ×2 (10:33→21:15)
[2018-07-18] MEDS: APIXABAN 5 MG TABLET 10 MG PO ×2 (10:33→21:16)
[2018-07-18] MEDS: buPROPion (SR) 150 MG Tablet.SA PO ×2 (10:34→21:17)
[2018-07-18] MEDS: Sertraline 100 MG Tablet 200 MG PO (10:34)
[2018-07-18] MEDS: OLANZapine 5 MG/TAB TAB.RAPDIS PO (10:34)
[2018-07-18 11:31] LABS: Bedside Glucose 120 mg/dL (70-110)
[2018-07-18 12:18] LABS: Absolute Lymphocyte Count 1.81 X10^3/ul (0.83-4.51); Absolute Neutrophil Count 7.3 X10^3/uL (2.0-7.7); Basophil# 0.01 X10^3/uL; Basophil% 0.1 % (0-1); Eosinophil# 0.06 X10^3/uL; Eosinophils% 0.6 % (0-5); Hemoglobin 12.4 g/dl (12.0-15.0); Lymphocyte # 1.81 X10^3/ul (4.0); Lymphocyte % 18.4 % (19-41); Mean Corp Hgb Conc 32.6 g/gl (32-36); Mean Corpuscular Hgb 30.8 pg (27.0-32.0); Mean Corpuscular Volume 94.5 fL (81-99); Mean Platelet Vol. 10.6 fl (6.2-12.0); Monocyte# 0.64 X10^3/uL; Monocyte% 6.5 % (0-10); Neutrophil % 74.3 % (47-70); Platelet Count 207 K/mm3 (150-450); RBC Distribution Width CV 12.4 % (11.6-14.6); RBC Distribution Width SD 43.1 fl (35.1-43.9); Red Blood Count 4.02 M/mm3 (4.2-5.4); White Blood Count 9.8 K/mm3 (4.4-11.0)
[2018-07-18 12:26] LABS: POSITIVE COUNT NO; POSITIVE DIFFERENTIAL NO; POSITIVE MORPHOLOGY NO
[2018-07-18 12:32] LABS: Anion Gap 8 (5-15); BUN 32 mg/dL (7-18); BUN/Creat Ratio 32.4 RATIO (10-20); Calcium,Total 8.1 mg/dL (8.5-10.1); Chloride 107 mmol/L (98-107); Creatinine, Serum 0.99 mg/dL (0.55-1.02); EST Glomerular Filtration Rate 63 mL/min (>60); Est Glom Filt Rate - Afr Amer 76 mL/min (>60); Estimated Creatinine Clearance 58.71 ml/min; Glucose 101 mg/dL (74-106); Magnesium 2.2 mg/dL (1.6-2.6); Phosphorus 3.6 mg/dL (2.5-4.9); Potassium 3.9 mmol/L (3.5-5.1); Sodium Level 140 mmol/L (136-145)
[2018-07-18] MEDS: Mag Hydrox/Al Hydrox/Simeth 30 ML UDC PO ×3 (14:14→22:42)
[2018-07-18] MEDS: Acetaminophen 325 MG Tablet 650 MG PO (15:46)
[2018-07-18 16:15] LABS: Bedside Glucose 99 mg/dL (70-110)
--- NOTE | 2018-07-18 16:48 | CHAPLAIN ---
Type of Pastoral Visit _x__ Initial Visit ___ Follow-up Visit ___ On-call Visit ___ General Patient Visit ___ Spiritual Assessment ___ Family Conference ___ Bereavement ___ Rapid Response ___ Code Blue ___ Other (describe below) Pastoral Care Referral From _x__ Patient _x__ Family ___ Nurse ___ Physician ___ Program Engineer ___ Manufacturers Representative ___ Other (describe below) Sacrament/Intervention _x__ Active listening ___ Anointing ___ Sikhism ___ Bereavement ___ Communion _x__ Emerita exploration ___ _x__ Life review _x__ Prayer ___ Reconciliation ___ Sacrament of Sick _x__ Supportive presence ___ Wedding ___ Other (describe below) Pastoral Comments spouse at bedside of patient; introduced self and role to patient and spouse; pt identifies herself as Uatsdin at first description of herself; spouse gave some details about family and did more of the talking; pt talked briefly during this time and then became anxious and said she was hearing the voices that wanted her to kill herself; sat with pt and spouse at bedside during this episode; offered prayer and quoted scripture as did the spouse as well; sat and took hand of patient and she held on tight to it; spoke softly and calmly to pt; reminded pt where she was and who was with her; ICE PLANT OPERATOR was also in room at doorway chair during this visit and updated RN about situation; ICE PLANT OPERATOR and RN came to reposition pt in bed, talk with her and gave her meds; spouse expressed thanks for presence of fish egg packer and is open to future visits
--- NOTE | 2018-07-18 16:56 | EKG12_ITS ---
Test Reason : CP Blood Pressure : / mmHG Vent. Rate : 077 BPM Atrial Rate : 077 BPM P-R Int : 138 ms QRS Dur : 084 ms QT Int : 430 ms P-R-T Axes : 056 006 031 degrees QTc Int : 486 ms Normal sinus rhythm Nonspecific ST and T wave abnormality Prolonged QT Abnormal ECG Confirmed by EDDY LEON, BLACK ([id number]), telegraph editor NAYANA SAWANT ([id number]) on 07/20/2018 1:57:06 PM Referred By: Lorena Chu Confirmed By:BLACK KAM MD
[2018-07-18 21:35] LABS: Bedside Glucose 99 mg/dL (70-110)
--- NOTE | 2018-07-18 22:45 | NURSING ---
pt c/o heartburn, gi coctail given
--- NOTE | 2018-07-18 23:33 | NURSING ---
pt accepted to [facility] in [place]. will be leaving [facility] to transport
--- NOTE | 2018-07-18 23:50 | NURSING ---
squad here to pick of the pt.
--- NOTE | 2018-07-19 07:59 | DCINST_ITS ---
- Discharge Diagnoses Reason(s) for Visit for Discharge Instructions: Suicidal attempt You will use the following diet at home:: Regular Your food should be the consistency of: Regular Your liquids should be the consistency of: Regular/Thin Discharge Activity: Return to Normal Activity Allergies/Adverse Reactions: Allergies No Known Allergies Allergy (Verified 07/18/18 00:21) Medications to take at Discharge Carvedilol [Coreg (Beta Gabriela)] 3.125 mg PO BID 10/29/14 Lisinopril [Zestril] 2.5 mg PO DAILY 08/25/15 Furosemide 40 mg PO DAILY 03/09/17 Bupropion HCl [Wellbutrin Xl] 450 mg PO DAILY 06/26/18 Sertraline HCl [Zoloft] 200 mg PO DAILY 06/26/18 Metformin HCl ER 500 mg PO DAILY 07/09/18 Acetaminophen 650 mg RC Q4H PRN PRN 07/18/18 Acetaminophen [8 Hour] 650 mg PO Q4H PRN PRN 07/18/18 Apixaban [Eliquis] 5 mg PO BID 07/18/18 Bisacodyl 10 mg RC X1 PRN 07/18/18 Guaifenesin [Robitussin] 10 ml PO Q4H PRN PRN 07/18/18 Magnesium Hydroxide [Milk Of Magnesia] 30 ml PO DAILY PRN PRN 07/18/18 Olanzapine [Zyprexa] 5 mg PO QHS 07/18/18 Primary Care Physician: Paty Catalan DO [Primary Care Provider] - Test Results: Test results from this visit will be discussed in further detail at your follow- up appointment, if applicable. Proposed Discharge Date: 07/18/18
--- NOTE | 2018-07-19 07:59 | PCM.DC.SUM ---
Discharge Date and Diagnosis Date of Admission: 07/18/18 Date of Discharge: 07/19/18 - Primary Discharge Diagnosis Suicidal attempt Leucocytosis Hypokalemia STEPHANIE/dehydration - Secondary Discharge Diagnosis Chronic Problems (Last Reviewed 07/10/18 @ 06:23 by Quinten Trejo MD) Bipolar disorder (Chronic) Catatonia schizophrenia (Chronic) BALDEMAR (obstructive sleep apnea) (Chronic) CHF (congestive heart failure) (Chronic) HTN (hypertension) (Chronic) DVT (deep venous thrombosis) (Chronic) Hospital Course and Treatment Consultations 07/18/18 14:04 Consult: Mental Health/Crisis Routine Reason for consult?: SUICIDE ATTEMPT Date Notified:: 07/18/18 Time notified:: 14:04 Microcomputer Support Specialist Operations: None Procedures: None Summary of Care Provided: The patient is a 48 year old F past medical history of catatonic schizophrenia/bipolar, cardiomyopathy, hypertension, BALDEMAR, history of DVT/PE on chronic anticoagulation, type II DM, recently discharged from the hospital with worsening lethargy secondary to acute alternatives of hernia. Patient was discharged to a half-way facility, and was brought to the emergency department with purposeful suicidal attempt with oral intake of 3 bottles of cleansing body solution. Patient was found to be hypokalemic, which was replaced, found to have AK I secondary dehydration. She was admitted to the ICU, received IV fluids,, firm to admitting staff that she had a plan to kill herself. Patient was seen by mental health specialist is admitted to a psych facility for further management. Subjective: Patient was seen and examined. She was drowsy at the time of exam. No other acute events previously. - Physical Exam General: Cooperative, Lethargic, - - obese HEENT: Atraumatic, PERRLA, EOMI, Normocephalic Oral: Moist Mucosa Neck: Supple, No JVD, Negative Carotid Bruits Lungs: Clear to auscultation, Normal air movement Cardiovascular: Regular rate, Regular Rhythm, Normal S1, Normal S2, No murmurs Abdomen: Bowel Sounds Present, Soft, Non Tender, Non-Distended, No Hepato-splenomegaly Extremities: No edema, Capillary Refill Less than 3 Seconds Skin: No rashes, No breakdown Musculoskeletal: No Tenderness to Palpation of Joints or Extremities Neurological: Cranial nerves II-XII grossly intact Psych/Mental Status: Normal Affect, Appropriate Vital Signs Temp Pulse Resp BP Pulse Ox 98.4 F 67 16 107/56 L 96 07/18/18 23:18 07/18/18 23:18 07/18/18 23:18 07/18/18 23:18 07/18/18 23:18 Oxygen Delivery Method Room Air Weight: 98.6 kg Body Mass Index (BMI) 37.3 Finger Stick Blood Glucose 92 Intake and Output for Last 24 Hours 07/17/18 07/18/18 07/19/18 23:59 23:59 23:59 Intake Total 3646 / 3646 Output Total 600 / 600 Balance 3046 / 3046 Laboratory Tests Past 24 Hrs 07/18/18 07/18/18 12:05 12:05 WBC 9.8 RBC 4.02 L Hgb 12.4 Hct 38.0 MCV 94.5 MCH 30.8 MCHC 32.6 RDW 12.4 RDW Differential 43.1 Plt Count 207 MPV 10.6 Immature Gran % (Auto) 0.100 Neut % (Auto) 74.3 H Lymph % (Auto) 18.4 L Andrews % (Auto) 6.5 Eos % (Auto) 0.6 Baso % (Auto) 0.1 Absolute Neuts (auto) 7.3 Absolute Lymphs (auto) 1.81 Total Counted Not Reportable Sodium 140 Potassium 3.9 Chloride 107 Carbon Dioxide 25.0 Anion Gap 8 BUN 32 H Creatinine 0.99 Estim Creat Clear Calc 58.71 Est GFR (MDRD) Af Amer 76 Est GFR (MDRD) Non-Af 63 BUN/Creatinine Ratio 32.4 H Glucose 101 Calcium 8.1 L Phosphorus 3.6 Magnesium 2.2 POC Glucose 07/18/18 07/18/18 07/18/18 21:27 16:12 11:24 POC Glucose 99 99 120 H Discharge Diet: Low fat/ Low Cholesterol, 2000 mg Sodium Diet, Carb Control Diet Discharge Activity: Return to Normal Activity Home Medications: Medications to take at Discharge Carvedilol [Coreg (Beta Gabriela)] 3.125 mg PO BID 10/29/14 Lisinopril [Zestril] 2.5 mg PO DAILY 08/25/15 Furosemide 40 mg PO DAILY 03/09/17 Bupropion HCl [Wellbutrin Xl] 450 mg PO DAILY 06/26/18 Sertraline HCl [Zoloft] 200 mg PO DAILY 06/26/18 Metformin HCl ER 500 mg PO DAILY 07/09/18 Acetaminophen 650 mg RC Q4H PRN PRN 07/18/18 Acetaminophen [8 Hour] 650 mg PO Q4H PRN PRN 07/18/18 Apixaban [Eliquis] 5 mg PO BID 07/18/18 Bisacodyl 10 mg RC X1 PRN 07/18/18 Guaifenesin [Robitussin] 10 ml PO Q4H PRN PRN 07/18/18 Magnesium Hydroxide [Milk Of Magnesia] 30 ml PO DAILY PRN PRN 07/18/18 Olanzapine [Zyprexa] 5 mg PO QHS 07/18/18 Primary Care Physician: Paty Catalan DO [Primary Care Provider] - Disposition: Psych Hospital or Unit Minutes spent on discharge:: 40 Patient Condition:: Stable Medical Necessity - Tobacco Use Smoking Status: Former smoker Tobacco Use: Non-smoker Meaningful Use Info Meaningful Use Diagnoses (Choose all that apply): None applicable Code Visit OBSV E&M: 64488 Observation care discharge
--- OUTSIDE RECORDS SUMMARY | 2018-09-19 12:37 | XMS RPT_ITS | Continuity of Care Document ---
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 (Allergy) Status: Active Past Medical History Name Dates Details Abdominal pain, acute, generalized (R10.84, 789.07) Status: Inactive as of 19-Mar-2016 Abdominal pain, suprapubic (R10.2, 789.09) Comments: ibsHas had complete hysterectomy Status: Inactive as of 06-Sep-2017 Abnormal lung sounds (R09.89, 786.7) Status: Inactive as of 06-Sep-2017 Acute bronchitis (J20.9, 466.0) Status: Inactive as of 29-Aug-2009 Amenorrhea (N91.2, 626.0) Status: Inactive as of 06-Aug-2016 Backache (M54.9, 724.5) Status: Inactive as of 16-Nov-2016 Bloating (R14.0, 787.3) Status: Inactive as of 19-Mar-2016 BMI 45.0-49.9, adult (Z68.42, V85.42) Status: Inactive as of 06-Sep-2017 BMI 50.0-59.9, adult (Z68.43, V85.43) Status: Inactive as of 06-Sep-2017 Breast discharge (N64.52, 611.79) Status: Resolved as of 14-Nov-2008 Bronchitis (J40, 490) Status: Inactive as of 06-Sep-2017 Callus of foot (L84, 700) Status: Inactive as of 06-Sep-2017 Cough (R05, 786.2) Status: Inactive as of 06-Sep-2017 Cough (R05, 786.2) Status: Inactive as of 19-Mar-2016 Cough (R05, 786.2) Status: Inactive as of 19-Mar-2016 Cough (R05, 786.2) Status: Inactive as of 31-Jul-2016 Dehydration (E86.0, 276.51) Status: Resolved as of 31-Jul-2016 Depression with suicidal ideation (F32.9, 311) Status: Inactive as of 08-Dec-2017 Diarrhea (R19.7, 787.91) Comments: ?IBSFood diary to see what foods are making it worse.Stool studies if negative consider viberziCBC, CMP, TSH, d dmer, amylase, lipase, BNP all good.(03/12/16)diarhea several years. 3 -4 lose stools /day sometime more than that.. Large volume stools.Constipation alternating with diarhea, mostly diarhea.Incresed now, stool incontinence.Gassy getting worse. .No abdominal pain or vomiting.Pop makes it worse.Dairy doesnt make it worse Status: Inactive as of 19-Mar-2016 Discharge from the vagina (N89.8, 623.5) Status: Inactive as of 08-Dec-2017 DUB (dysfunctional uterine bleeding) (N93.8, 626.8) Status: Inactive as of 9-Feb-2017 Dysfunction of eustachian tube (H69.80, 381.81) Status: Inactive as of 06-Aug-2016 Elevated LFTs (R94.5, 790.6) Comments: elevated ferritin level -- will jw in one month before more w/u Status: Inactive as of 06-Sep-2017 Epigastric pain (R10.13, 789.06) 21-Sep-2011 Status: Inactive as of 31-Jul-2016 Facial pain, left - new 12/31 Status: Inactive as of 19-Mar-2016 Fall in or into filled bathtub causing other injury (W16.212A, E883.0) Status: Inactive as of 31-Jul-2016 Fall, accidental (W19.XXXA, E888.9) Status: Inactive as of 31-Jul-2016 Fatigue (R53.83, 780.79) Status: Inactive as of 31-Jul-2016 Forearm strain (841.9) Comments: trapped nerve vs otherawaiting results although Chiropracter helpinghad carpel tunnel surgery 1999 Status: Inactive as of 31-Jul-2016 Headache (R51, 784.0) Status: Inactive as of 29-Aug-2009 Hypoxia (R09.02, 799.02) Comments: currently on 3L NC O2 Status: Resolved as of 09-Jun-2017 INJURY DUE TO ANIMAL BITE NOS (E906.5) Comments: better than was. will finish out atb will follow up if worsen or not all the way resolve Status: Inactive as of 06-Aug-2016 Intermittent palpitations (R00.2, 785.1) Status: Resolved as of 31-Jul-2016 Knee pain (M25.569, 719.46) Status: Inactive as of 19-Mar-2016 Leg cramps (R25.2, 729.82) Status: Inactive as of 19-Mar-2016 Myalgia and myositis (729.1) Status: Inactive as of 06-Sep-2017 Nausea (R11.0, 787.02) Status: Resolved as of 08-Dec-2017 Nausea alone (R11.0, 787.02) Comments: is this conglomeration of sx medication side effect from biaxin??-- will hold for 24 hr -- she has 3days left of doses and see if improves Status: Inactive as of 06-Sep-2017 Norovirus (A08.11, 008.63) Status: Resolved as of 31-Jul-2016 Nutritional counseling (Z71.3, V65.3) Status: Inactive as of 06-Sep-2017 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 pulmonary edema, started on lasix [address] Palomo Elena cardiologistEcho: Status: Inactive as of 31-Jul-2016 Rash of hands (R21, 782.1) Status: Inactive as of 19-Mar-2016 Rectal bleeding (K62.5, 569.3) Comments: keep appt with gi dr Status: Inactive as of 19-Mar-2016 Rib pain (R07.81, 786.50) Status: Inactive as of 19-Mar-2016 Right foot injury (S99.921A, 959.7) Comments: Xray today: soft tissue swelling, no [id number] days ago: fell down, tripped over a pole, landed on the right big toe, painful, swollen, getting down,Hurts to walk on it. Status: Inactive as of 31-Jul-2016 Shortness of breath (R06.02, 786.05) Status: Inactive as of 06-Sep-2017 Sinus congestion (R09.81, 478.19) Status: Inactive as of 31-Jul-2016 Sinus congestion (R09.81, 478.19) Status: Inactive as of 08-Dec-2017 Sinusitis, bacterial (J32.9, 473.9) Status: Inactive as of 29-Mar-2017 Sinusitis, bacterial (J32.9, 473.9) Status: Resolved as of 08-Dec-2017 Ultrasound scan abnormal (R93.8, 793.99) Status: Inactive as of 31-Jul-2016 Unspecified asthma with (acute) exacerbation (J45.901, 493.92) Status: Resolved as of 23-Nov-2014 Unspecified visual disturbance (H53.9, 368.9) Status: Inactive as of 06-Sep-2017 Uterine fibroid (D25.9, 218.9) Comments: s/p SHADIA/BSO Status: Resolved as of 20-Feb-2013 Vaginal yeast infection (B37.3, 112.1) Status: Inactive as of 09-Jun-2017 Weight gain (R63.5, 783.1) Comments: gained 40 pounds in 1 year. Status: Inactive as of 06-Sep-2017 Wheezing (R06.2, 786.07) Status: Resolved as of 13-Aug-2010 Wound drainage (Renamed from Drainage from wound) (T14.8XXA, 879.8) Status: Inactive as of 19-Mar-2016 Procedures Procedure Dates Details Cholecystectomy Completed Comments: 10/07 Dilation And Curettage Of Uterus Completed Comments: 09/03 Hysterectomy (not due to cancer) - Complete Completed 13-Feb-2013 nose surgery 2017 balloon plasty Completed Date Value Details 15-Mar-2018 Brain/Head without Contrast Result: Comments: See Note; NOTES: [facility] Imaging Services [address] [place] [address] Brain/Head without Contrast MR#: [id number] Acct: [id number] Name: SIMI NIELSEN Rep #: [id number] : 1970 F 48 From: Shannen Hong MD PCP: Paty Catalan DO Status: REG ER Study: Brain/Head without Contrast Date of Exam: 03/15/18 Exam# [id number] Ordering Dr: Humberto Drake MD STUDY: CT BRAIN WITHOUT CONTRAST REASON FOR EXAM: Female, 48 years old. Confusion RADIATION DOSAGE (If Supplied By Facility): CTDIvol = ( 44.99 ) mGy, DLP = ( 779.24 ) mGycm TECHNIQUE: Transaxial CT imaging of the brain was performed without administration of intravenous contrast material. Individualized dose optimization techniques were used for this CT. COMPARISON: 02/28/2018 FINDINGS: There is no acute bleed or infarct. There are normal white matter tracts. The ventricles are normal in configuration. There is no hydrocephalus. The visualized paranasal si nuses are clear. The mastoid air cells are well aerated. There is no skull fracture. CT/Brain/Head without Contrast IMPRESSION: No acute intracranial abnormality. Electronically Signed: Shannen Hong, at 20:46 EDT Tel , Service support , CC: Paty Catalan DO; Humberto Drake [employer] Vice President: Signed 15-Mar-2018 Brain/Head without Contrast Result: Comments: See Note; NOTES: [facility] Imaging Services [address] [place] [address] Brain/Head without Contrast MR#: [id number] Acct: [id number] Name: SIIM NIELSEN Rep #: [id number] : 1970 F 48 From: Shannen Hong MD PCP: Paty Catalan DO Status: [facility] Study: Brain/Head without Contrast Date of Exam: 03/15/18 Exam# [id number] Ordering Dr: Humberto Drake MD STUDY: CT BRAIN WITHOUT CONTRAST REASON FOR EXAM: Female, 48 years old. Confusion RADIATION DOSAGE (If Supplied By Facility): CTDIvol = ( 44.99 ) mGy, DLP = ( 779.24 ) mGycm TECHNIQUE: Transaxial CT imaging of the brain was performed without administration of intravenous contrast material. Individualized dose optimization techniques were used for this CT. COMPARISON: 02/28/2018 FINDINGS: There is no acute bleed or infarct. There are normal white matter tracts. The ventricles are normal in configuration. There is no hydrocephalus. The visualized paranasal si nuses are clear. The mastoid air cells are well aerated. There is no skull fracture. CT/Brain/Head without Contrast IMPRESSION: No acute intracranial abnormality. Electronically Signed: Shannen Hong, at 20:46 EDT Tel , Service support , CC: Paty Catalan DO; Humberto Drake [employer] Vice President: Signed 15-Mar-2018 Chest 1 View (Portable) Result: Comments: See Note; NOTES: [facility] Imaging Services [address] [place] [address] Chest 1 View (Portable) MR#: [id number] Acct: [id number] Name: SIMI NIELSEN Rep #: [id number] : 1970 F 48 From: Stuart Wagner DO PCP: Payt Catalan DO Status: REG ER Study: Chest 1 View (Portable) Date of Exam: 03/15/18 Exam# [id number] Ordering Dr: Humberto Drake MD STUDY: X-RAY C HEST REASON FOR EXAM: Female, 48 years old. Confusion TECHNIQUE: Single frontal view COMPARISON: February 28, 2018 FINDINGS: The lungs are expanded. Mild right b asilar interstitial prominence. Normal size heart. Normal mediastinum and payton. Normal visualized pulmonary arteries. Normal visualized aortic arch and descending thoracic aorta. Normal visualized tho racic spine. Normal visualized ribs, clavicles, and shoulders. There is no demonstrated abnormality of the visualized soft tissue structures of the upper abdomen. RAD/Chest 1 View (Portable) IMPRESSION: Mild right basilar interstitial prominence. Electronically Signed: Stuart Wagner DO at 19:50 EDT Tel [phone], Service support [phone], CC: Paty Catalan DO; Humberto Drake [employer] Vice President: Signed 15-Mar-2018 Chest 1 View (Portable) Result: Comments: See Note; NOTES: [facility] Imaging Services [address] [place] [address] Chest 1 View (Portable) MR#: [id number] Acct: [id number] Name: SIMI NIELSEN Rep #: [id number] : 1970 F 48 From: Stuart Wagner DO PCP: Paty Catalan DO Status: REG ER Study: Chest 1 View (Portable) Date of Exam: 03/15/18 Exam# [id number] Ordering Dr: Humberto Drake MD STUDY: X-RAY C HEST REASON FOR EXAM: Female, 48 years old. Confusion TECHNIQUE: Single frontal view COMPARISON: February 28, 2018 FINDINGS: The lungs are expanded. Mild right b asilar interstitial prominence. Normal size heart. Normal mediastinum and payton. Normal visualized pulmonary arteries. Normal visualized aortic arch and descending thoracic aorta. Normal visualized tho racic spine. Normal visualized ribs, clavicles, and shoulders. There is no demonstrated abnormality of the visualized soft tissue structures of the upper abdomen. RAD/Chest 1 View (Portable) IMPRESSION: Mild right basilar interstitial prominence. Electronically Signed: Stuart Wagner DO at 19:50 EDT Tel [phone], Service support [phone], CC: Paty Drake [employer] Vice President: Signed 01-Mar-2018 12 Lead Electrocardiogram Result: Comments: See Note; NOTES: [facility] Cardiovascular Services [address] [place] [address] 12 Lead EKG 02/28/18 0259 MR#: [id number] Acct: [id number] Name: SIMI NIELSEN Rep #: [id number] : 1970 48 From: Frederick Butt MD Attending Dr: Status: DEP ER Ordering Dr: Bin Maria DO Date: 02/28/18 Location: ED Sex: F C Admitted: Test Reason : MHC Blood Pressure : / mmHG Vent. Rate : 081 BPM Atrial Rate : 081 BPM P-R Int : 142 ms QRS Dur : 086 ms QT Int : 382 ms P-R-T Axes : 048 -03 -05 degrees QTc Int : 443 ms Normal sinus rhythm Nonspecific T wave abnormality Ab normal ECG Confirmed by FREDERICK BUTT ([id number]), tape editor NAYANA SAWANT ([id number]) on 03/01/2018 1:11:20 PM Referred By: JOYCE Confirmed By:FREDERICK BUTT 03/01/18 1311 Date Frederick Butt MD CC: Paty Catalan DO; Bin Maria Signed 28-Feb-2018 Emergency Department Summary Result: Comments: See Note; NOTES: [facility] Medical Records Department [address] [place] [address] Emergency Department Summary 02/28/18 0446 MR#: [id number] Acct: [id number] Name: SIMI NIELSEN Rep #: [id number] : 1970 48 From: Bin Matias PCP: Paty Catalan DO Status: REG ER - ER Visit Summary Date of Service: 02/28/18 Chief Complaint: Mental health, confusion His tory of Present Illness: The patient is a 48 F history of bipolar, schizophrenia, brought in by significant other concerns of confusion. Patient wandered away from the house, reported she fell, she able to make it back to the house. Mother states she is not herself. Patient denies any pain. No urinary symptoms. No nausea or vomiting. Denies homicidal or suicidal ideations. Significant other states pat ient has been seen multiple times in the ED here in the past couple weeks. States she was seen by crisis counselor. Records reviewed: Yesterday seen for abdominal contusion. 2 days ago was seen for vis ual hallucinations value by crisis, Arnold moya was given ED. Follow-up with crisis as an outpatient. February 23 was seen for missing dose medications auditory hallucinations. Patient was sent home. Physical Examination: General: Alert and oriented, answering questions, following commands. No acute distress HEENT: Normocephalic, atraumatic. Moist mucosa membranes Neck: supple, nontender. Cardiov ascular: Regular rate and rhythm, no murmurs Respiratory: Normal breath sounds, symmetric, no distress Abdomen: Soft, nontender, nondistended Extremities: Nontender, no edema, pulses intact 4 Neuro: no focal neurological deficits. Psych: No suicidal homicidal ideations. Test Results: EKG sinus rate of [address] changes. T-wave inversion in leads III. White count 11.8. Hemoglobin 14.8. Potassium 3.8. Creatinine 0.99. UA negative. Toxin alcohol negative. Chest x-ray negative. CT head negative. Emergency Department Course and Treatment: Patient presents reported confusion and at baseline. Blood press ure 80/62 on arrival did transiently dropped his systolic 60s. She responded to IV fluids. Workup initiated were any infectious findings urine and chest x-ray negative. Labs are stable. Toxin alcohol ne gative. EKG nonspecific changes. CT head was negative. Patient without suicidal homicidal ideations. Reevaluation alert and oriented 3. She is not suicidal homicidal. She has a crisis evaluation and fol low-up on Wednesday. She is ambulated,'s slight weakness in the leg however no falls no dizziness. Spouse is present. Comfortable taking the patient home. Discussed continue oral hydration. There is no in juries from the fall. Follow-up as an outpatient. Signs and symptoms discussed to return if any worsening symptoms. Treatment Plan: [] Disposition: Discharge Impression: 1. Transient confusion 2. Tra nsient hypotension This note was generated with Texert dictation software. It may contain incorrect words, spelling, and punctuation that were not noted in review of the chart prior to signing ED D isposition - Plan for ED Patient: Disposition: Home or Assisted Living Chief Complaint: Mental Health Diagnosis: Transient confusion, Transient hypotension Instructions: ED Confusion Referrals: Paty Catalan DO [Primary Care Provider] - 3-5 Days Additional Instructions: Keep follow-up appointment with crisis on Wednesday. What to do if you have Problems For any increased pain, shortness of felton th, bleeding, nausea or vomiting, chest pain, or any unexpected problems, contact your Primary Care Provider. Call [facility] ([phone]) or report to the closest Emergency Room. Call 911 if ne cessary. 02/28/18 0559 <Electronically signed by Bin Matias> Date Bin Matias Cosigner Signature (If Indicated): Date __ CC: Paty Catalan DO 28-Feb-2018 Brain/Head without Contrast Result: Comments: See Note; NOTES: [facility] Imaging Services [address] [place] [address] Brain/Head without Contrast MR#: [id number] Acct: [id number] Name: SIMI NIELSEN Rep #: [id number] : 1970 F 48 From: Willy Kenyon MD PCP: Paty Catalan DO Status: REG ER Study: Brain/Head without Contrast Date of Exam: 02/28/18 Exam# [id number] Ordering Dr: Bin Maria DO STUD Y: CT BRAIN WITHOUT CONTRAST REASON FOR EXAM: Female, 48 years old. Confusion RADIATION DOSAGE (If Supplied By Facility): CTDIvol = ( 44.99 ) mGy, DLP = ( 796.11 ) mGycm TECHNIQUE: Transaxial CT imag ing of the brain was performed without administration of intravenous contrast material. Individualized dose optimization techniques were used for this CT. COMPARISON: 02/23/2018 FINDINGS: Normal soft tissue structures. Normal calvarium. Normal size ventricles and extra-axial spaces for the patient's age. Normal white matter tracts of the cerebral hemispheres. Nor mal basal ganglia and thalami. Normal brainstem. Normal cerebellum. There is no intracranial hemorrhage. There are no findings of an acute ischemic infarction. Normal visualized paranasal sinuses. ___ CT/Brain/Head without Contrast IMPRESSION: No CT evidence of acute infarct or hemorrhage. Comment: If there is clinical concern for hyperacute isch emia that is not yet apparent by CT, MRI should be considered if possible. Electronically Signed: Willy Kenyon MD at 5:07 EDT Tel , Service support , Fax CC: Paty Catalan DO; Bin Maria [employer] Supply Chain Vice President: Signed 28-Feb-2018 Chest 1 View (Portable) Result: Comments: See Note; NOTES: [facility] Imaging Services [address] [place] [address] Chest 1 View (Portable) MR#: [id number] Acct: [id number] Name: SIMI NIELSEN Rep #: [id number] : 1970 F 48 From: Genaro Burnham MD PCP: Paty Catalan DO Status: [facility] ER Study: Chest 1 View (Portable) Date of Exam: 02/28/18 Exam# [id number] Ordering Dr: Bin Maria DO STUDY: X-RAY C HEST REASON FOR EXAM: Female, 48 years old. Confusion TECHNIQUE: Single frontal view of the chest. COMPARISON: February 02, 2018. FINDINGS: The lungs are clear and expanded. There is no demonstrated pleural abnormality. Normal size heart. Normal mediastinum and payton. Normal visualized pulmonary arteries. Normal visualized aortic arch and descending thoracic aorta . Normal visualized thoracic spine. Normal visualized ribs, clavicles, and shoulders. There is no demonstrated abnormality of the visualized soft tissue structures of the upper abdomen. RAD/Chest 1 View (Portable) IMPRESSION: Normal x-ray examination of the chest. Electronically Signed: Genaro Burnham, at 4:41 EDT Tel , Service support , CC: Paty Catalan DO; Bin Maria [employer] Supply Chain Vice President: Signed 27-Feb-2018 Emergency Department Summary Result: Comments: See Note; NOTES: [facility] Medical Records Department [address] [place] [address] Emergency Department Summary 02/27/18 1309 MR#: [id number] Acct: [id number] Name: SIMI NIELSEN Rep #: [id number] : 1970 48 From: Jesus Shah MD PCP: Paty Catalan DO Status: DEP ER - ER Visit Summary Date of Service: 02/27/18 Chief Complaint: [] Contusion to th e left lower abdomen after inadvertently striking sink History of Present Illness: The patient is a 48 F [] schizophrenia, 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 She has no abdominal pain no fever no cough no bowel bladder complaints she did not strike any other part of body she is other complaints she again just simply bumped her abdomen against the sink wh en she indicates taking all of her medications including her behavioral meds list Physical Examination: [] Resting comforting the bed vital signs are within normal range no psychomotor agitation head n tonya chest unremarkable abdomen soft it is obese there is a mild area of contusion to the left lower quadrant a circular it is about the size of a silver dollar, this area slightly tender there is no uzair ound guarding organomegaly there is no deep abdominal pain she denies any pain other than the superficial pain related to the contusion, her back is unremarkable upper lower extremities pelvis are unrem arkable Test Results: [] Emergency Department Course and Treatment: [] Now there is nothing on physical exam to suggest an acute intra-abdominal process, this occurred hours ago she is hemodynamically stable with no issues or complaints except for this focal pain in the subcu of her skin as above I explained she stand all of her medications Tylenol for the pain, she should not use Motrin, and follow -up with her doctors she agrees and understands Treatment Plan: [] Disposition: [] Home stable Impression: [] Contusion left lower abdomen after inadvertent trauma, history of Eliquis therapy and naa izophrenia This note was generated with Texert dictation software. It may contain incorrect words, spelling, and punctuation that were not noted in review of the chart prior to signing ED Dispositi on - Plan for ED Patient: Chief Complaint: Other, Pain/Inj Referrals: Paty Catalan DO [Primary Care Provider] - What to do if you have Problems For any increased pain, shortness of breath, blee ding, nausea or vomiting, chest pain, or any unexpected problems, contact your Primary Care Provider. Call [facility] ([phone]) or report to the closest Emergency Room. Call 911 if necessary. 02/27/18 1512 <Electronically signed by Jesus Shah MD> Date Jesus Shah MD Cosigner Signature (If Indicated): Date CC: Paty Catalan DO 27-Feb-2018 Discharge Instruction Result: Comments: See Note; NOTES: [facility] Medical Records Department [address] [place] [address] Discharge Instruction 02/27/18 1311 MR#: [id number] Acct: [id number] Name: SIMI NIELSEN Rep #: [id number] : 1970 48 From: Jesus Shah MD PCP: Paty Catalan DO Status: PRE ER ED Disposition - Plan for ED Patient: Chief Complaint: Other, Pain/Inj Instructions: Co ntusions (Bruises), ED Contusion Soft Tissue Referrals: Paty Catalan, [Primary Care Provider] - What to do if you have Problems For any increased pain, shortness of breath, bleeding, nausea or vomiting, chest pain, or any unexpected problems, contact your Primary Care Provider. Call [facility] ([phone]) or report to the closest Emergency Room. Call 911 if necessary. 02/27/18 131 2 <Electronically signed by Jesus Shah MD> Date Jesus Shah MD Cosigner Signature (If Indicated): Date ___ CC: Paty Catalan DO 26-Feb-2018 Emergency Department Summary Result: Comments: See Note; NOTES: [facility] Medical Records Department [address] [place] [address] Emergency Department Summary 02/26/18 1457 MR#: [id number] Acct: [id number] Name: SIMI NIELSEN Rep #: [id number] : 1970 48 From: Navid De Paz MD PCP: Paty Catalan DO Status: REG ER - ER Visit Summary Date of Service: 02/26/18 Chief Complaint: Schizophrenia prese nts with hallucinations for the past week. She has an appointment with a new psychiatrist on Wednesday at the crisis center. No recent changes in medication but her does note that she has not been taking her meds for the past few weeks or taking them intermittently. He is not concerned that she is at risk for harming herself or others, it is just the hallucinations that are bothering her more mo re. Physical Examination: Vitals are within normal limits. She is not in distress. Neck is supple. Heart tones are regular and without murmur. Lungs are clear bilaterally. Abdomen is soft and nontender . No focal or lateralizing neuro findings. Speech is clear. She is open and cooperative with questions. She does have abnormal thought content but denies suicidal thoughts or ideation. Denies homicidal thoughts or ideation. Test Results: Medical screening labs are unremarkable Emergency Department Course and Treatment: He was evaluated by crisis. They do not feel that she is at risk for self-harm or harm to others. They do not feel that she meets criteria for admission. Additionally, the patient and her would prefer to go home and follow-up at her appointment as well as the crisis center. I reevaluated her and she confirms that she has no thoughts of harming herself and her agrees. He will be with her and will not leave her alone. They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 Plan I have discussed the above with the patient. I have offered the pat ient colonoscopy with random colonic bx for evaluation. I have explained the risks/benefits of the procedure and described the procedure. I have discussed the risks with the patient, including but not l imited to: infection, bleeding, perforation of the GI tract requiring emergency surgery, inability to complete the procedure, injury to any internal organs, complications of anesthesia, etc. - the patie nt understands and agrees to proceed. I have answered all the patient's questions to the patient's satisfaction and the patient has no further questions. The patient has been given instructions for the colon cleansing preparation. Coding Level of Care Code Off vis,est,level 3 Diagnoses Incisional hernia, without obstruction or gangrene K43.2; K43.91 Obstruction and gangrene presence: without obstru ction or gangrene Abnormal CT of the abdomen R93.5 Hernia K46.9 Diarrhea, unspecified type R19.7 Diarrhea type: unspecified type 01/19/18 0846 <Electronically signed by Frederick Rdz MD& #62; Date Frederick Rdz MD Cosigner Signature: Date (if applicable) CC: Paty Catalan DO 10-Jan-2018 Operative Report Result: Comments: See Note; NOTES: [facility] Medical Records Department [address] [place] [address] Operative Report 01/10/18 0708 MR#: [id number] Acct: [id number] Name: SIMI NIELSEN Rep #: [id number] : 1970 47 From: Frederick Rdz MD PCP: Paty Catalan DO Status: REG SDC Y Location: EN Problem List (1) Abnormal findings on diagnostic imaging of other abdominal regio ns, including retroperitoneum Status: Acute Report of Operation Date of Procedure: 01/10/18 Pre-Operative Diagnosis: r93.[address] scan of abdomen Post- Operative Diagnosis: Same Surgery/Procedure P erformed:: Esophagogastroduodenoscopy Type of Anesthesia:: MAC Anesthesiologist: Rios Akbar Description of Procedure: Patient was brought into the endoscopy suite. Back of her throat was sprayed with benzocaine spray. He was given graded anesthesia. A bite-block was placed. Lippa scope was inserted into the back of the oropharynx and directed down through the esophagus into the stomach and into the duodenum without difficulty. Operative findings: 1. Duodenum: Normal appearance no mass lesions no ulcerations no signs of bleeding. 2. Stomach: Normal appearance no mass lesions no ulcerations minim al gastritis was identified in the prepyloric area but there was no signs of any linear ulcerations the mucosal all look normal there was no cobblestoning of the mucosa. There was no recent activity of bleeding. Retroflexion did not show any signs of a hiatal hernia. 3. Esophagus: Normal appearance no mass lesions normal ZE line there was no signs of esophagitis there is no signs of any recent bleedi ng there is no signs of any hiatal hernia. Patient's upper scope was entirely normal no biopsies were obtained. - Admit VTE Documentation VTE Present on Admission: No VTE Mechan Device Prophylaxis: No ne VTE Pharm Prophylaxis ordered?: No Reason prophylaxis not ordered:: Treatment Not Indicated 01/10/18 0712 <Electronically signed by Frederick Rdz MD> Date Frederick Rdz MD CC: Frederick Rdz MD; Paty Catalan DO Signed 03-Jan-2018 Surgery Visit Report Result: Comments: See Note; NOTES: [address] [place] [address] OFFICE VISIT Date of Service: 01/03/18 MR#: [id number] Acct: [id number] Name: SIMI SUTTON Rep #: [id number] : 1970 Provider: Frederick Rdz MD Age/Sex: 47/F Location: [facility] Status: Signed Intake Vital Signs01/03/18 Height 5 ft 4 in 01/03/18 Weight: 238 lb 9 oz 01/03/18 Geovanny dy Mass Index (BMI) 40.9 01/03/18 Blood Pressure 87/59 Intake Visit Reasons: Hernia Chief Complaint: umbilical hernia, change in bowel habits Hand Bookbinder Required: No Is patient in pain?: No Allergies No Known Allergies Allergy (Verified 01/03/18 13:01) Medications Carvedilol [Coreg (Beta Gabriela)] 3.125 mg PO BID 10/29/14 [History Confirmed 01/03/18] Citalopram [Celexa] 20 mg PO QHS 08/25/15 [ History Confirmed 01/03/18] Lisinopril [Zestril] 2.5 mg PO DAILY 08/25/15 [History Confirmed 01/03/18] Fluticasone 0.05% [Flonase Nasal [place]] 1 spray NASAL DAILY 03/09/17 [History Confirmed 01/03/18] F urosemide 40 mg PO DAILY 03/09/17 [History Confirmed 01/03/18] Risperidone [Risperdal] 4 mg PO QHS 03/09/17 [History Confirmed 01/03/18] Apixaban [Eliquis] 5 mg PO BID #66 tab 03/10/17 [Rx Confirmed 03/15] liraglutide 0.6 mg/0.1 mL (18 mg/3 mL) subcutaneous pen injector 0.6 mg SC QDAY 01/03/18 [History Confirmed 01/03/18] metformin 1,000 mg tablet 1,000 mg PO QDAY tab 01/03/18 [History Confirmed ] Is last menstrual period known: No Post menopausal: Yes Patient : No PFSH Medical History BALDEMAR (obstructive sleep apnea) (Acute) CHF (congestive heart failure) (Acute) HTN (hypertension) (Acute) Nausea AND vomiting (Acute) DVT (deep venous thrombosis) (Chronic) Palpitation (Acute) Dizzy (Acute) Bipolar 1 disorder (Acute) Cardiomyopat hy (Acute) Eczema (Acute) IBS (irritable bowel syndrome) (Acute) PUD (peptic ulcer disease) (Acute) Pulmonary embolism (Acute) Schizophrenia (Acute) Surgical History S/P cholecystectomy (Acute) S/P dilation and curettage (Acute) S/P hysterectomy (Acute) S/P nasal septoplasty (Acute) Family History Mother Breast cancer Social History Smoking Status: Never smoker HPI HPI HPI: SIMI NIELSEN, is a 47 F who presents to the office today for evaluation of several problems. Patient has been complai henrietta of a bulge in her lower umbilical area. She has had a previous abdominal hysterectomy and a CAT scan that was recently completed at [facility] on 12/31/2017. This showed a thickened a billy of the wall the stomach which may represent potentially an underlying gastritis and a potential atypical mass. In addition the patient has been having a significant problem with diarrhea followed by constipation and alterations in her bowel habits. In addition the patient has had a bulge in her lower umbilical area which CAT scan did show an incisional hernia. ROS General General: No weight ch rodolfo, appetite, fatigue, colon cancer, breast cancer or weakness Endo Endocrine: Yes diabetes mellitus; no thyroid disease, thyroid cancer, Hair loss, heat intolerance or cold intolerance Skin Skin: Yes rash; no changing moles Additional Details: eczema Musc Musculoskeletal: Yes back problems; no arthritis, rheumatoid arthritis, gout or joint pain Cardio Cardiovascular: Yes heart disease and high bloo d pressure; no murmur, pacemaker, atrial fibrillation, heart attack, heart stent, palpitations, shortness of breat with exertion or chest pain Additional Details: cardiomyopathy, cardiac arrhythmia, CHF Psych Additional Details: bipolar, schnizophrenia Resp Respiratory: No shortness of breath, Yes sleep apnea, No cough, No COPD, No asthma, No emphysema, Yes wheezing Gastro Gastrointestinal: Yes abdomi nal pain, No nausea or vomiting, No diarrhea, Yes constipation, No blood in stool, No acid reflux, No hemorrhoids, Yes ulcers, No gallbladder problem, No black,tarry stools Additional Details: IBS Davey Hematologic: Yes blood thinners, No blood disorders, No bleeding, No anemia, Yes blood clots Additional Details: PE and DVT March 2017 Neuro Neurologic: No weakness Exam Const General: well develope d, no acute distress, well hydrated Orientation: oriented to person, oriented to place, oriented to time [facility] Head: normocephalic, atraumatic Ears: external ears normal Mouth: moist mucous membranes Ey es Sclera: sclerae normal Pupils: normal by confrontation Neck Neck: no lymphadenopathy noted Neck mass: No Thyroid: symmetrical, thyroid normal Chest Chest palpation AND inspection: normal inspection o f the chest Resp Effort AND Inspection: normal respiratory effort Auscultation: clear to auscultation bilaterally Percussion: percussion normal Cardio Rate: regular rate Rhythm: regular rhythm Heart Opal nds: no murmurs GI Palpation: soft, tender, no masses, no hepatosplenomegaly Rectal Exam: other Other: A Hernia inferior to her umbilicus is palpated. Rectal exam deferred. Extrem General: no clubbing, cyanosis or edema, normal to inspection Assessment AND Plan Problems 1. Hernia K46.[address] of the abdomen R93.5 3. Diarrhea, unspecified type R19.7 4. Incisional hernia, without obstruction o r gangrene K43.2; K43.91 Plan I have discussed the above with the patient. I have offered the patient colonoscopy as well as an esophagogastroduodenoscopy with biopsy for evaluation. I have explained t he risks/benefits of the procedure and described the procedure. I have discussed the risks with the patient, including but not limited to: infection, bleeding, perforation of the GI tract requiring kimberley gency surgery, inability to complete the procedure, injury to any internal organs, complications of anesthesia, etc. - the patient understands and agrees to proceed. I have answered all the patient's qu estions to the patient's satisfaction and the patient has no further questions. The patient has been given instructions for the colon cleansing preparation. I have the studies completed she will need t o have an incisional hernia repair with mesh. My plan is to perform a incisional repair with mesh. the planned surgical procedure was discussed extensively with the patient. The risks, benefits, antici pated outcomes and possible complication were mentioned. The patient understands that all hernia repair surgery has a chance of recurrence and/or chronic post- operative pain. My staff has also explained the procedure in understandable terms and the patient was given the option to take printed material concerning the planned procedure. The patient had the opportunity to ask questions concerning the murtaza nned procedure. The patient freely consents to the planned procedure. Coding Level of Care Code Off vis,new,level 3 Diagnoses Hernia K46.[address] of the abdomen R93.5 Diarrhea, unspecified type R19.7 Diarrhea type: unspecified type Incisional hernia, without obstruction or gangrene K43.2; K43.91 Obstruction and gangrene presence: without obstruction or gangrene 01/03/18 1332 <Electr onically signed by Frederick Rdz MD> Date Frederick Rdz MD Cosigner Signature: Date (if applicable) CC: Paty Catalan DO 31-Dec-2017 Abdomen/Pelvis WITH Contrast Result: Comments: See Note; NOTES: [facility] Imaging Services [address] [place] [address] Abdomen/Pelvis WITH Contrast MR#: [id number] Acct: [id number] Name: SIMI NIELSEN Amanda Rep #: [id number] : 1970 F 47 From: Lotus Dover MD PCP: Paty Catalan DO Status: REG CLI Study: Abdomen/Pelvis WITH Contrast Date of Exam: 12/31/17 Exam# [id number] Ordering Dr: Paty Catalan DO STUDY: CT ABDOMEN AND PELVIS WITH CONTRAST REASON FOR EXAM: Female, 47 years old. Lower abdominal pain, history of hysterectomy cholecystectomy. RADIATION DOSAGE (If Supplied By Facility): CTDIvol = ( 18.51 ) mGy, DLP = ( 1248.52 ) mGycm TECHNIQUE: Transaxial images were obtained from the dome of the diaphragm to the symphysis pubis without oral contrast. 100ML ml of Isovue 300 contrast was admini stered. Sagittal and coronal images were reconstructed. Individualized dose optimization techniques were used for this CT. COMPARISON: October 10, 2014 CT scan abdomen and pelvis FINDINGS: The visualized lung bases are unremarkable. The visualized portions of the heart are within normal limits. Normal liver. There are surgical clips in the gallbladder fossa consis tent with a prior cholecystectomy. Normal spleen. Normal pancreas. Normal bilateral adrenal glands. Normal right kidney. Normal left kidney. There is a small hiatal hernia. There is contrast in the s tomach. There is nonspecific midline filling defect within the stomach which may represent focal wall thickening extending from the greater curvature image #42. There is a thick-walled appearance of the distal stomach. Normal small intestine. Normal colon. The appendix is visualized and appears normal. Normal abdominal aorta. Normal inferior vena cava. Normal retroperitoneum. There is mild bladder w all thickening. There is absence of the uterus consistent with a prior hysterectomy. There are superficial lower pelvic varicosities within the soft tissues left greater than right is a decompressed ap pearance of the inferior vena cava. There is degenerative change of the lumbar spine. There is a broad disc bulge at L4-L5 with congenital narrowing of the canal. L5-S1 there is a broad disc osteophyte complex congenital narrowing of the canal moderate neural foraminal narrowing moderate central stenosis. There is degenerative change of the SI joints. ORDER #: [id number] CT/Abdomen/Pelvis WITH Contrast IMPRESSION: Stable soft tissue varicosities within the lower abdominal/pelvis wall compared to prior study. Status post hysterectomy Status post cholecystectomy. Allowing for peristalsis, Thickened appearance of the wall of the stomach which may represent potentially underlying gastritis and a potential Atypia/mass. Consider follow-up upper GI small bowel foll ow-through and/or endoscopy. 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 Electronically Signed: Lotus Dover MD at 9:24 EDT Tel , Service support , CC: Paty Catalan DO Global Supply Chain Vice President: Signed 13-Oct-2017 Discharge Instruction Result: Comments: See Note; NOTES: [facility] Medical Records Department [address] [place] [address] Discharge Instruction 10/13/172246 MR#: [id number] Acct: [id number] Name: SIMI NIELSEN Rep #: [id number] : 1970 47 From: Stone Felix MD PCP: Paty Catalan DO Status: PRE ER ED Disposition - Plan for ED Patient: Chief Complaint: Vag Bleeding Instructions: ED Vagini tis Atrophic Referrals: Paty Catalan DO [Primary Care Provider] - Arnav Saha MD [STAFF PHYSICIAN] - What to do if you have Problems For any increased pain, shortness of breath, bleeding, lavelle sea or vomiting, chest pain, or any unexpected problems, contact your Primary Care Provider. Call [facility] ([phone]) or report to the closest Emergency Room. Call 911 if necessary. 2248 <Electronically signed by Stone Felix MD> Date Stone Felix MD Cosigner Signature (If Indicated): Date CC: Paty Catalan DO 13-Oct-2017 Emergency Department Summary Result: Comments: See Note; NOTES: [facility] Medical Records Department [address] [place] [address] Emergency Department Summary 10/13/172244 MR#: [id number] Acct: [id number] Name: SIMI NIELSEN Rep #: [id number] : 1970 47 From: Stone Felix MD PCP: Paty Catalan DO Status: PRE ER ADDENDUM by Stone Felix MD on 10/13/17 at 2249 Disregard impression of vaginal blee ding Impression #1 vaginitis Date Stone Felix MD cc: Paty Catalan DO * Signed - ER Visit Summary Date of Service: 10/13/17 Chief Complain t: Vaginal itching and spotting History of Present Illness: The patient is a 47 F with a history of a total hysterectomy on Eliquis who had some vaginal itching today and when she checked noticed a sma ll amount of blood. She denies any pelvic pain. Review of systems otherwise negative. She called the nursing line and was advised to go to the emergency department. Physical Examination: Afebrile vital s are stable Moist mucous membranes Heart regular Lungs clear There is a small area of mucous membrane area of irritation and superficial skin breakdown along the right labia majora that appears to be t he source of bleeding. This may be due to vaginal atrophy. Test Results: Not indicated Emergency Department Course and Treatment: Patient has a small irritated area that appears to be the source of bl eeding. She has had a complete hysterectomy. There is no indication for further emergent workup and she was advised of the need to follow-up with a esol teacher assistant. Stance return for new or worsening sympt oms. She was discharged. Treatment Plan: [] Disposition: Discharge Impression: Vaginal bleeding This note was generated with Texert dictation software. It may contain incorrect words, spelling, an d punctuation that were not noted in review of the chart prior to signing ED Disposition - Plan for ED Patient: Chief Complaint: Vag Bleeding Referrals: Paty Catalan, DO [Primary Care Provider] - What to do if you have Problems For any increased pain, shortness of breath, bleeding, nausea or vomiting, chest pain, or any unexpected problems, contact your Primary Care Provider. Call [facility] ([phone]) or report to the closest Emergency Room. Call 911 if necessary. 10/13/17 7602 <Electronically signed by Stone Felix MD> Date Stone Felix MD Cosigner Signature (If Indicated): Date CC: Paty Catalan DO 13-Oct-2017 Emergency Department Summary Result: Comments: See Note; NOTES: [facility] Medical Records Department [address] [place] [address] Emergency Department Summary 10/13/17 2245 MR#: [id number] Acct: [id number] Name: SIMI NIELSEN Rep #: [id number] : 1970 47 From: Stone Felix MD PCP: Paty Catalan DO Status: PRE ER - ER Visit Summary Date of Service: 10/13/17 Chief Complaint: Vaginal itching and sp otting History of Present Illness: The patient is a 47 F with a history of a total hysterectomy on Eliquis who had some vaginal itching today and when she checked noticed a small amount of blood. She d enies any pelvic pain. Review of systems otherwise negative. She called the nursing line and was advised to go to the emergency department. Physical Examination: Afebrile vitals are stable Moist mucous membranes Heart regular Lungs clear There is a small area of mucous membrane area of irritation and superficial skin breakdown along the right labia majora that appears to be the source of bleeding. Th is may be due to vaginal atrophy. Test Results: Not indicated Emergency Department Course and Treatment: Patient has a small irritated area that appears to be the source of bleeding. She has had a com plete hysterectomy. There is no indication for further emergent workup and she was advised of the need to follow-up with a esol teacher assistant. Stance return for new or worsening symptoms. She was discharged. Treatment Plan: [] Disposition: Discharge Impression: Vaginal bleeding This note was generated with Texert dictation software. It may contain incorrect words, spelling, and punctuation that were n ot noted in review of the chart prior to signing ED Disposition - Plan for ED Patient: Chief Complaint: Vag Bleeding Referrals: Paty Catalan DO [Primary Care Provider] - What to do if you have Problems For any increased pain, shortness of breath, bleeding, nausea or vomiting, chest pain, or any unexpected problems, contact your Primary Care Provider. Call [facility] ([phone]) or report to the closest Emergency Room. Call 911 if necessary. 10/13/17 2247 <Electronically signed by Stone Felix MD> Date Stone garcia MD Cosigner Signature (If Indicated): Date CC: Paty Catalan DO 30-Sep-2017 SCREENING MAMM (CAD), BILAT Result: Comments: See Note; NOTES: [facility] Imaging Services [address] [place] [address] SCREENING MAMM (CAD), BILAT MR#: [id number] Acct: [id number] Name: SIMI NIELSEN Rep #: [id number] : 1970 F 47 From: Jaxon Adame MD PCP: Paty Catalan DO Status: [facility] CLI Study: SCREENING MAMM (CAD), BILAT Date of Exam: 09/30/17 Exam# [id number] Ordering Dr: Paty Catalan DO MAMMOGRAPHY - BILATERAL SCREENING REASON FOR EXAM: Female, 47 years old. Routine annual screening examination. PERTINENT HISTORY: Mother with breast cancer. Aunt with breast cancer. TECHNIQUE: Digital bilateral breast jakob (3D mammographic acquisition) in the CC and MLO projections. 2-D mediolateral oblique (MLO) and craniocaudad (CC) views of both breasts were obtained. CAD: Full Field Digit al Mammography with Computer Added Detection was performed. COMPARISON: Comparison is made with prior study dated September 13, 2012 and May 14, 2011. FINDINGS: Br east Composition: There are scattered areas of fibroglandular density. There are no dominant masses or suspicious calcifications. No other significant abnormalities are identified. There has been no s ignificant change since the prior study. BI/SCREENING MAMM (CAD), BILAT IMPRESSION: Stable bilateral screening mammogram. Yearly follow-up mammog pham recommended. (A) ASSESSMENT CATEGORY: BIRADS Category 1: Negative. A letter regarding these results will be sent to the patient by the facility within 30 days. Approximately 10% of breast cancers are not detected by mammography. A normal mammogram should not delay biopsy of a clinically suspicious abnormality. [id number] Electronically Signed: Jaxon Pedro i, MD at 8:14 EDT Tel [phone], Service support , CC: Paty Catalan DO Global Supply Chain Vice President: Signed 06-Sep-2017 Hand 2 Views Result: Comments: See Note; NOTES: [facility] Imaging Services [address] [place] [address] Hand 2 Views MR#: [id number] Acct: [id number] Name: SIMI NIELSEN Rep #: [id number] : 0 1970 F 47 From: Olivia Ramirez MD PCP: Paty Catalan DO Status: REG CLI Study: Hand 2 Views Date of Exam: 09/06/17 Exam# [id number] Ordering Dr: Paty Catalan DO STUDY: X-RAY - LEFT HAND R BASIL FOR EXAM: Female, 47 years old. Pain TECHNIQUE: Two view(s) of the hand were obtained. COMPARISON: None. FINDINGS: Bones: There are no acute osseous abnormal ities. Joints: The visualized joints are unremarkable. Soft tissues: The soft tissues are unremarkable. Foreign body: None RAD/Hand 2 Views I MPRESSION: No significant abnormalities are seen radiographically in the left hand. Electronically Signed: Olivia Ramirez MD at 8:19 EDT Tel Direct: [phone], Service support [phone], CC: Paty Catalan DO Global Supply Chain Vice President: Signed 06-Sep-2017 Hand 2 Views Result: Comments: See Note; NOTES: [facility] Imaging Services [address] [place] [address] [place] [address] Hand 2 Views MR#: [id number] Acct: [id number] Name: SIMI NIELSEN Rep #: [id number] : 0 1970 F 47 From: Olivia Ramirez MD PCP: Paty Catalan DO Status: REG CLI Study: Hand 2 Views Date of Exam: 09/06/17 Exam# [id number] Ordering Dr: Paty Catalan DO STUDY: X-RAY - RIGHT HAND REASON FOR EXAM: Female, 47 years old. Pain TECHNIQUE: Two view(s) of the hand were obtained. COMPARISON: None. FINDINGS: Bones: There are no acute osseous abnorma lities. Joints: The visualized joints are unremarkable. Soft tissues: The soft tissues are unremarkable. Foreign body: None RAD/Hand 2 Views IMPRESSION: No significant abnormalities are seen radiographically in the right hand. Electronically Signed: Olivia Ramirez MD at 8:20 EDT Tel Direct: [phone], Service support , CC: Paty Catalan DO Global Supply Chain Vice President: Signed 27-Jul-2017 Ankle min 3 Views Result: Comments: See Note; NOTES: [facility] Imaging Services [address] [place] [address] Ankle min 3 Views MR#: [id number] Acct: [id number] Name: SIMI NIELSEN Rep #: [id number] D OB: 1970 F 47 From: Jaxon Adame MD PCP: Paty Catalan DO Status: REG CLI Study: Ankle min 3 Views Date of Exam: 07/27/17 Exam# [id number] Ordering Dr: Paty Catalan DO STUDY: X-RAY - RIGHT ANKLE REASON FOR EXAM: Female, 47 years old. Bilateral ankle pain. TECHNIQUE: 3 view(s) of the ankle. COMPARISON: None. FINDINGS: Normal visualized distal tibia and fibula. Normal medial and lateral malleoli. Normal tibiotalar articulation and ankle mortise. Small plantar spur. The visualized subtalar, talonavicular, calcaneocuboid and tarsal articulati ons are normal. The soft tissue structures are unremarkable. RAD/Ankle min 3 Views IMPRESSION: Small plantar spur. Electronically Signed: Aung Adame MD at 12:44 EST Tel [phone], Service support , CC: Paty Catalan DO Global Supply Chain Vice President: Signed 27-Jul-2017 Ankle min 3 Views Result: Comments: See Note; NOTES: [facility] Imaging Services [address] [place] [address] Ankle min 3 Views MR#: [id number] Acct: [id number] Name: SIMI NIELSEN Rep #: [id number] D OB: 1970 F 47 From: Jaxon Adame MD PCP: Paty Catalan DO Status: REG CLI Study: Ankle min 3 Views Date of Exam: 07/27/17 Exam# [id number] Ordering Dr: Paty Catalan DO STUDY: X-RAY - LEFT ANKLE REASON FOR EXAM: Female, 47 years old. Bilateral ankle pain. TECHNIQUE: 3 view(s) of the ankle. COMPARISON: None. FINDINGS: Normal visualized distal t ibia and fibula. Normal medial and lateral malleoli. Normal tibiotalar articulation and ankle mortise. Plantar spurs. The visualized subtalar, talonavicular, calcaneocuboid and tarsal articulations ar e normal. Mild soft tissue swelling. RAD/Ankle min 3 Views IMPRESSION: Mild soft tissue swelling. Electronically Signed: Jaxon Adame MD at 12:45 EST Tel [phone], Service support , CC: Paty Catalan DO Global Supply Chain Vice President: Signed 27-Jul-2017 Foot min 3 Views Result: Comments: See Note; NOTES: [facility] Imaging Services [address] [place] [address] Foot min 3 Views MR#: [id number] Acct: [id number] Name: SIMI NIELSEN Rep #: [id number] DO B: 1970 F 47 From: Rom Edgar MD PCP: Paty Catalan DO Status: REG CLI Study: Foot min 3 Views Date of Exam: 07/27/17 Exam# [id number] Ordering Dr: Paty Catalan DO STUDY: X-RAY - RIGHT FOOT CLINICAL: Female, 47 years old. Pain TECHNIQUE: 3 view(s) of the foot. COMPARISON: None. FINDINGS: A small plantar calcaneal spur. A prominent talar beak Normal visualized subtalar, talonavicular, calcaneocuboid, tarsal and tarsometatarsal articulations. Normal metatarsi. Normal metatarsophalangeal joint of the great toe. Normal tibial and fibul ar sesamoid bones. Normal interphalangeal joint of the great toe. Normal phalanges of the great toe. Normal second through fifth metatarsophalangeal joints. Normal interphalangeal joints and phalanges of the lesser toes. The soft tissue structures are unremarkable. RAD/Foot min 3 Views IMPRESSION: Normal x-ray examination of the foot. No fract ures. A small plantar calcaneal spur and a prominent talar beak Electronically Signed: Rom Edgar, at 3:19 EST Tel , Service support , Fax CC: Paty Catalan DO Global Supply Chain Vice President: Signed 27-Jul-2017 Foot min 3 Views Result: Comments: See Note; NOTES: [facility] Imaging Services [address] [place] [address] Foot min 3 Views MR#: [id number] Acct: [id number] Name: NIELSENSIMI Amanda Rep #: [id number] DO B: 1970 F 47 From: Rom Edgar MD PCP: Paty Catalan DO Status: REG CLI Study: Foot min 3 Views Date of Exam: 07/27/17 Exam# [id number] Ordering Dr: Paty Catalan DO STUDY: X-RAY - LEFT FOOT CLINICAL: Female, 47 years old. Left foot and ankle pain TECHNIQUE: 3 views view(s) of the foot. COMPARISON: None. FINDINGS: There are small spurs fr om the posterior plantar surface of the os calcis. No fractures. No joint disease. Mild soft tissue swelling 0061 RAD/Foot min 3 Views IMPRESSION: Sma ll spurs from the posterior and plantar surfaces of the os calcis. No fracture Electronically Signed: Rom Edgar, at 3:36 EST Tel , Service support , CC: Paty Catalan DO [employer] Supply Chain Vice President: Signed 16-Jul-2017 Abdomen Single View Result: Comments: See Note; NOTES: [facility] Imaging Services [address] [place] [address] Abdomen Single View MR#: [id number] Acct: [id number] Name: SIMI NIELSEN Rep #: [id number] : 1970 F 47 From: Marlene Sawant MD PCP: Paty Catalan DO Status: REG CLI Study: Abdomen Single View Date of Exam: 07/16/17 Exam# [id number] Ordering Dr: Zuleima Ingram STUDY: X-RAY - ABDOMEN/PE LVIS REASON FOR EXAM: Female, 47 years old. Suprapubic pain. TECHNIQUE: Two AP supine views of the abdomen and pelvis. COMPARISON: CT of the abdomen and pelvis dated October 11, 2014. FINDINGS: Normal visualized lung bases. There is an unremarkable bowel gas pattern. There is no demonstrated free abdominal air. There is no obvious organomegaly, mass or dilated b owel. There are calcified phleboliths in the pelvis. There are degenerative changes of both hips. RAD/Abdomen Single View IMPRESSION: 1. Multipl e pelvic calcifications are unchanged since the previous CT. 2. No radiographic evidence of acute intra-abdominal disease. Electronically Signed: Marlene Sawant MD at 11:32 EST Tel , Service support , CC: Zuleima Ingram CUSTOMER SERVICE ADVOCATE; Paty Catalan DO Global Supply Chain Vice President: Signed 24-Jun-2017 Liver Result: Comments: See Note; NOTES: [facility] Imaging Services [address] [place] [address] Liver MR#: [id number] Acct: [id number] Name: SIMI NIELSEN Rep #: [id number] : [birth year] F 47 From: Nisreen Borges MD PCP: Paty Catalan DO Status: REG CLI Study: Liver Date of Exam: 06/24/17 Exam# [id number] Ordering Dr: Paty Catalan DO STUDY: ABDOMINAL ULTRASOUND - RIGHT UPPER QUADRANT REASON FOR VISIT: Female, 47 years old. Abnormal labs. TECHNIQUE: Ultrasound evaluation of the right upper quadrant was performed with real-time and static hanley-scale imaging. TECHNICAL QUAL ITY: Adequate. COMPARISON: None. FINDINGS: Liver: The liver measures 17.8 cm. There is increased echogenicity consistent with fatty infiltration. The bile ducts ar e within normal limits. There is hepatic color flow. The direction of portal flow is hepatopetal. There is no demonstrated mass lesion. Gallbladder: The patient is status post cholecystectomy. Common Bile Duct (C.B.D.): The common bile duct measures 5.4 mm. Pancreas: The visualized pancreas is within normal limits. The tail the pancreas is not well-seen secondary to overlying bowel gas. Right Kidn ey: Normal size of the right kidney. The right kidney measures 11.7 cm in length. Normal renal cortex. The right cortex measures 1.8 cm. There is no demonstrated renal mass or cyst. There is no right hy dronephrosis. US/Liver IMPRESSION: Fatty infiltration of the liver. Electronically Signed: Nisreen Borges MD at 17:50 EST Tel , Service support , CC: Paty Catalan DO Global Supply Chain Vice President: Signed 19-Jun-2017 Venous Duplex Lower Extremity Result: Comments: See Note; NOTES: [facility] Cardiovascular Services [address] [place] [address] Venous Duplex US - Osmin Extrem 06/17/17 1356 MR#: [id number] Acct: [id number] Name: SIMI NIELSEN Rep #: [id number] : 1970 47 From: Mamadou Bonds MD Attending Dr: Paty Catalan DO Status: REG CLI Ordering Dr: Paty Catalan DO Date: 06/17/17 Location: CT Sex: F C Admitted: Reason For Study: I26.99, I82.819 RIGHT LEFT GSV is normal. GSV is normal. CFV is compressible, spontaneous, phasic, CFV is compressible, spontaneous, phasic, competent and demonstrates normal co mpetent, and demonstrates normal augmentation. augmentation. FV is compressible, spontaneous, phasic, FV is compressible, spontaneous, phasic, competent and demonstrates normal competent and demonstrate s normal augmentation. augmentation. POP V is compressible, spontaneous, phasic, POP V is compressible, spontaneous, phasic, competent and demonstrates normal competent and demonstrates normal augmentat ion. augmentation. T/P Trunk is compressible. T/P Trunk is compressible. PTV is compressible. PTV is compressible. RT PerV is compressible. LT PerV is compressible. Interpretation Summary Deep veins of the lower extremities are bilaterally patent and compressible segmentally. There is no evidence of deep vein thrombosis on either side. Valvular competence appears intact within the proximal deep venou s systems bilaterally. The greater saphenous veins appear bilaterally patent and compressible segmentally. __ __ Ordering Physician: Paty Catalan Performed By: Behzad Guzman RVT 06/19/17910 Date Mamadou Bonds MD CC: Paty Catalan DO Date Dictated: 06/17/17 1356 Date Transcribed: 06/19/17910 Global Supply Chain Vice President: Signed 17-Jun-2017 Chest WITH Contrast Result: Comments: See Note; NOTES: [facility] Imaging Services [address] [place] [address] Chest WITH Contrast MR#: [id number] Acct: [id number] Name: SIMI NIELSEN Rep #: [id number] : 1970 F 47 From: Shannen Hong MD PCP: Paty Catalan DO Status: REG CLI Study: Chest WITH Contrast Date of Exam: 06/17/17 Exam# [id number] Ordering Dr: Paty Catalan DO STUDY: CTA [facility] REASON FOR EXAM: Female, 47 years old. Follow-up of pulmonary embolus RADIATION DOSAGE (If Supplied By Facility): CTDIvol = ( 15.03 ) mGy, DLP = ( 667.69 ) mGycm TECHNIQUE: The examination was per formed with the intravenous administration of 100 ml of Isovue 300 contrast material. Post-processing of the angiographic images was performed, with multiplanar reformation and 3D reconstruction. Indiv idualized dose optimization techniques were used for this CT. COMPARISON: 03/09/2017 FINDINGS: The lungs are clear. There are no pulmonary infiltrates or pleural ef fusions. There is no pneumothorax. There are no pulmonary emboli. The previously seen right lower lobe emboli have resolved. There is no thoracic aortic aneurysm or dissection. The heart and pericard ium are within normal limits. There is no thoracic lymphadenopathy. Images through the upper abdomen demonstrate no significant abnormality. There are no destructive osseous lesions. 028 CT/Chest WITH Contrast IMPRESSION: No pulmonary embolus. Resolution of the previously seen right lower lobe emboli. Clear lungs. Electronically Signed: Shannen Hong, at 20:37 EST Tel , Service support , CC: Paty Catalan DO Global Supply Chain Vice President: Signed 02-Jun-2017 Chest PA and Lateral Result: Comments: See Note; NOTES: [facility] Imaging Services [address] [place] [address] Chest PA and Lateral MR#: [id number] Acct: [id number] Name: NIELSENSIMI Amanda Rep #: [id number] : 1970 F 47 From: Jaxon Adame MD PCP: Paty Catalan DO Status: REG CLI Study: Chest PA and Lateral Date of Exam: 06/02/17 Exam# [id number] Ordering Dr: Paty Catalan DO STUDY: X -RAY CHEST REASON FOR EXAM: Female, 47 years old. Persistent cough. Recent bronchitis. TECHNIQUE: PA and lateral views of the chest. COMPARISON: Comparison is made with prior study dated January 19 7. FINDINGS: The lungs are clear and expanded. There is no demonstrated pleural abnormality. Normal size heart. Normal mediastinum and payton. Normal visualized pulm onary arteries. Normal visualized aortic arch and descending thoracic aorta. Normal visualized thoracic spine. Normal visualized ribs, clavicles, and shoulders. There is no demonstrated abnormality of the visualized soft tissue structures of the upper abdomen. RAD/Chest PA and Lateral IMPRESSION: Normal x-ray examination of the chest. Electro nically Signed: Jaxon Adame MD at 16:03 EST Tel [phone], Service support , CC: Paty Catalan DO Global Supply Chain Vice President: Signed 09-Mar-2017 Emergency Department Summary Result: Comments: See Note; NOTES: [facility] Medical Records Department [address] [place] [address] Emergency Department Summary 03/09/172027 MR#: [id number] Acct: [id number] Name: SIMI NIELSEN Rep #: [id number] : 1970 47 From: Stone Felix MD PCP: Paty Catalan DO Status: REG ER - ER Visit Summary Date of Service: 03/09/17 Chief Complaint: Pulmonary embolism Hi story of Present Illness: The patient is a 47 F who presents with a pulmonary embolism. She has a history of prior DVT and PE. She had a nasal procedure and had some bleeding complications so her antico agulation was being held. She blames of 2 days of left leg pain and swelling. She had an outpatient workup today which was positive for acute DVT as well as some small pulmonary emboli. She developed sh ortness of breath chest pain and some lightheadedness and dizziness and felt as if she may pass out so was advised to be evaluated here in the emergency department. She did restart her Eliquis. Physica l Examination: Afebrile tachycardic at 115 Moist mucous membranes Heart regular rhythm tachycardia Lungs clear Abdomen soft Test Results: EKG shows sinus rhythm at a rate of 104. CBC BMP troponin unrem arkable. Emergency Department Course and Treatment: CTA was reviewed. Given that the patient is symptomatic she will be admitted. Treatment Plan: [] Disposition: Admit Impression: Pulmonary embolism ED Disposition - Plan for ED Patient: Chief Complaint: Shortness of Breath Referrals: Paty Catalan DO [Primary Care Provider] - What to do if you have Problems For any increased pain, shortn ess of breath, bleeding, nausea or vomiting, chest pain, or any unexpected problems, contact your Primary Care Provider. Call [facility] ([phone]) or report to the closest Emergency Room. Koby l 911 if necessary. 03/09/172029 <Electronically signed by Stone Felix MD> Date Stone Felix MD Cosigner Signature (If Indica osmin): Date CC: Paty Catalan DO 09-Mar-2017 Venous Duplex Lower Extremity Result: Comments: See Note; NOTES: [facility] Cardi[facility] Services [address] [place] [address] Venous Duplex US - Osmin Extrem 03/09/17 1458 MR#: [id number] Acct: [id number] Name: SIMI NIELSEN Rep #: [id number] : 1970 47 From: Mamadou Bonds MD Attending Dr: Mavis Baldwin, ABDOULAYE-C Status: REG CLI Ordering Dr: Mavis Baldwin CUSTOMER SERVICE ADVOCATE-C Date: 03/09/17 Location: CT Sex: F C Admitted : Reason For Study: leg pain RIGHT LEFT GSV is normal. GSV is normal. CFV is compressible, spontaneous, phasic, CFV is compressible, spontaneous, phasic, competent and demonstrates normal competen t, and demonstrates normal augmentation. augmentation. FV is compressible, spontaneous, phasic, FV is compressible, spontaneous, phasic, competent and demonstrates normal competent and demonstrates norm al augmentation. augmentation. POP V is compressible, spontaneous, phasic, POP V is compressible, spontaneous, phasic, competent and demonstrates normal competent and demonstrates normal augmentation. a ugmentation. T/P Trunk is compressible. LT PerV is compressible. PTV is compressible. T/P Trunk, PTV, and Soleus V are dilated and RT PerV is compressible. noncompressible. Procedure Exam performed in [facility]. The exam was diagnostic. A preliminary report was called and/or faxed to Mavis Baldwin NP-C. Interpretation Summary Acute deep vein thrombosis is noted in the left tibio-peroneal trunk. Acut e deep vein thrombosis is noted in the left posterior tibial vein. Acute deep vein thrombosis is noted in the left soleus vein. The remainder of the left lower extremity deep venous system is patent and compressible. Deep veins of the right lower extremity are patent and compressible segmentally. There is no evidence of right lower extremity deep vein thrombosis. Valvular competence appears intact wit hin the proximal deep venous systems bilaterally. The greater saphenous veins appear bilaterally patent and compressible segmentally. Ordering Physician: EDIS Mcdowell Referring Physician: Paty Catalan M.D. Performed By: Behzad Guzman, T 03/09/17 1537 Date Mamadou Bonds MD CC: EDIS Baldwin; Paty Catalan DO Date Dictated: 03/09/17 1458 Date Transcribed: 03/09/171536 Global Supply Chain Vice President: Signed 09-Mar-2017 CTA Chest W/WO Contrast Result: Comments: See Note; NOTES: [facility] Imaging Services [address] [place] [address] CTA Chest W/WO Contrast MR#: [id number] Acct: [id number] Name: SIMI NIELSEN Rep #: [id number] : 1970 F 47 From: Olivia Ramirez MD PCP: Paty Catalan DO Status: REG CLI Study: CTA Chest W/WO Contrast Date of Exam: 03/09/17 Exam# [id number] Ordering Dr: Baldwin, Mavis CUSTOMER SERVICE ADVOCATE-C STUDY : CTA CHEST REASON FOR EXAM: Female, 47 years old. Chest pain and shortness of breath RADIATION DOSAGE (If Supplied By Facility): CTDIvol = ( ) mGy, DLP = ( 1994.69 ) mGycm TECHNIQUE: The examination was performed with the intravenous administration of 100 ml of Isovue 370 contrast material. Post-processing of the angiographic images was performed, with multiplanar reformation and 3D reconstruction . Individualized dose optimization techniques were used for this CT. COMPARISON: Chest radiographs dated July 22, 2016; chest CTA dated April 13, 2016 FINDING S: Normal enhancement of the main pulmonary artery and right and left pulmonary arteries. There are a few filling defects within pulmonary artery branches to the right lower lobe. Normal thoracic aort a and visualized great vessels. There is no demonstrated aortic dissection. Normal heart and pericardium. Normal mediastinum. Normal hilar regions. Normal visualized trachea and bronchi. The lungs a re well expanded. There is minimal atelectasis in the periphery of both lungs. Normal pleura. Normal chest wall structures. There are mild degenerative changes in the visualized spine. Normal visua lized upper abdomen. CT/CTA Chest W/WO Contrast IMPRESSION: There are a few small emboli within pulmonary artery branches to the right lower lobe . There is minimal atelectasis in both lungs. There is no pleural effusion or significant lymphadenopathy. N.B. : Dr. Garcia , Covering Physician, confirmed on 03/09/2017 18:33:20 (ET) that the refer ring physician received the results and did not require a verbal consultation. Electronically Signed: Olivia Ramirez MD at 17:41 EDT Tel [phone], Service support , Fax N.B. : Dr. Garcia , Covering Physician, confirmed on 03/09/2017 18:33:20 (ET) that the referring physician received the results and did not require a verbal consultation. CC: EDIS Baldwin; Paty Catalan DO Global Supply Chain Vice President: Signed 18-Dec-2016 Sinus/Facial Bone Result: Comments: See Note; NOTES: [facility] Imaging Services [address] [place] [address] Syddana 4d Sinus/Facial Bone MR#: [id number] Acct: [id number] Name: SIMI NIELSEN Rep #: [id number] : 1970 F 46 From: Pedro Luis Palafox PCP: Paty Cataaln DO Status: REG CLI Study: Sinus/Facial Bone Date of Exam: 12/18/16 Exam# [id number] Ordering Dr: Navid Sherman MD [facility] DY: CT MAXILLOFACIAL SINUSES REASON FOR EXAM: Female, 46 years old. Sinusitis RADIATION DOSAGE (If Supplied By Facility): CTDIvol = ( 33.06 ) mGy, DLP = ( 776.00 ) mGycm TECHNIQUE: The patient was sc anned in a multi detector CT scanner. High resolution axial imaging was performed without the administration of intravenous contrast material. Sagittal and coronal images were reconstructed. Individual ized dose optimization techniques were used for this CT. COMPARISON: None. FINDINGS: FRONTAL SINUSES: Normal aeration, without mucosal inflammatory disease. ETHMO IDAL SINUSES: Normal aeration, without mucosal inflammatory disease. MAXILLARY SINUSES: Normal aeration, without mucosal inflammatory disease. SPHENOIDAL SINUSES: Normal aeration, without mucosal infl ammatory disease. There is patency of the bilateral maxillary infundibuli with normal uncinate processes, ethmoid bullae, and hiatus semilunaris. Normal bilateral middle turbinates. Normal bilateral i nferior turbinates. Normal midline nasal septum. There is patency of the bilateral nasal airways. The visualized osseous structures are normal. The visualized bilateral orbital contents are normal. __ CT/Sinus/Facial Bone IMPRESSION: Normal CT examination of the maxillofacial sinuses. Electronically Signed: Pedro Luis Palafox MD at 4: 23 EDT , Service support , CC: Harry Sherman MD; Paty Catalan DO Global Supply Chain Vice President: Signed 29-Oct-2016 Echo, Complete w/ Contrast Result: Comments: See Note; NOTES: [facility] Services [address] [place] [address] Echo Complete W/ Contrast 10/29/16 1402 MR#: [id number] Acct: [id number] Name: SIMI CABAN ACE Rep #: [id number] : 1970 46 From: Marshall Ford MD Attending Dr: Norman Burton MD Status: REG CLI Ordering Dr: Norman Burton MD Date: 10/29/16 Location: CV[facility] Sex: F C Admitted: Reason For Study: SOB Procedure This was a 2D Doppler, Color Flow transthoracic echocardiogram. The exam was of poor technical quality due to body habitus. The study was technically difficult. Cont rast injection was performed. Exam performed in department. Left Ventricle Based upon the 2D echocardiographic and contrast enhanced images obtained there appears to be grossly normal left ventricular size, wall motion, and systolic function. The estimated ejection fraction is 55 %. Right Ventricle The right ventricle is not well visualized. Atria Normal left atrium. The right atrium is not well vi sualized. No doppler evidence for ASD. Mitral Valve There is no mitral annular calcification. Normal mitral valve. Tricuspid Valve The tricuspid valve is not well visualized. Aortic Valve The aortic v alve is not well visualized. Pulmonic Valve The pulmonic valve is not well visualized. Great Vessels The aortic root is not well visualized. Pericardium/Pleural No pericardial effusion. Medication 2 2 gauge I.V. with prn adaptor inserted into right arm. Definity0.4ml given slow IV push to enhance endocardial definition. MMode/2D Measurements & Calculations LA dimension: 3.2 cm Doppler Russ urements & Calculations MV E max emma: 44.2 cm/sec Lat Peak E' Emma: 5.1 cm/sec Med Peak E' Emma: 4.6 cm/sec MV A max emma: 61.7 cm/sec E/E' lat: 8.7 E/E' med: 9.5 MV E/A: 0.72 Ao V2 max: 129.8 cm/sec LV V1 max: 115.5 cm/sec PA V2 max: 78.3 cm/sec Ao max P.7 mmHg LV V1 max P.3 mmHg Interpretation Summary The study was technically difficult. Contrast injection was performed. Based upon the 2D echocardiographic and contrast enhanced images obtained there appears to be grossly normal left ventricular size, w all motion, and systolic function. The estimated ejection fraction is 55 %. Ordering Physician: Norman Layne Referring Physician: Paty Catalan M.D. Performed By: Clarisa Joshi [facility] 10/29/161948 Date __ Marshall Ford MD CC: Paty Catalan DO; Norman Burton MD Date Dictated: 10/29/16 1402 Date Transcribed: 10/29/161948 Global Supply Chain Vice President: Signed 22-Jul-2016 Chest PA and Lateral Result: Comments: See Note; NOTES: [facility] Imaging Services [address] [place] [address] Verdana 4d Chest PA and Lateral MR#: [id number] Acct: [id number] Name: SIMI NIELSEN Rep #: [id number] : 1970 F 46 From: Linda Méndez MD PCP: Paty Catalan DO Status: REG ER Study: Chest PA and Lateral Date of Exam: 07/22/16 Exam# [id number] Ordering Dr: Humberto Galvez MD STUDY: X-RAY CHEST REASON FOR EXAM: Female, 46 years old. Dyspnea TECHNIQUE: Frontal and lateral views of the chest. COMPARISON: None. FINDINGS: The lungs are clear and expanded. There is no demonstrated pleural abnormality. Normal size heart. Normal mediastinum and payton. Normal visualized pulmonary arteries. Normal visualized aortic arch and descending thoracic aort a. Normal visualized thoracic spine. Normal visualized ribs, clavicles, and shoulders. There is no demonstrated abnormality of the visualized soft tissue structures of the upper abdomen. RAD/Chest PA and Lateral IMPRESSION: Normal x-ray examination of the chest. Electronically Signed: Linda Méndez MD at 20:24 EST Tel , Service support [phone], CC: Paty Catalan DO; Humberto Galvez MD Global Supply Chain Vice President: Signed 13-Apr-2016 CTA Chest W/WO Contrast Result: Comments: See Note; NOTES: [facility] Imaging Services [address] [place] [address] Verdana 4d CTA Chest W/WO Contrast MR#: [id number] Acct: [id number] Name: SIMI NIELSEN Rep #: [id number] : 1970 F 46 From: Santos Burnett PCP: Paty Catalan DO Status: REG CLI Study: CTA Chest W/WO Contrast Date of Exam: 04/13/16 Exam# [id number] Ordering Dr: Robel Sanon DY: CTA CHEST REASON FOR EXAM: Female, 46 years old. Shortness of breath, abnormal pulmonary function tests. RADIATION DOSAGE (If Supplied By Facility): CTDIvol = ( 38.04 ) mGy, DLP = ( 927.11 ) mGycm TECHNIQUE: The examination was performed with the intravenous administration of 100ML ml of Isovue 370 contrast material. Post-processing of the angiographic images was performed, with multiplanar ref ormation and 3D reconstruction. Individualized dose optimization techniques were used for this CT. COMPARISON: October 02, 2014. Chest x-ray April 08, 2016. FINDING S: Normal enhancement of the main pulmonary artery and right and left pulmonary arteries. Normal enhancement of the bilateral peripheral pulmonary arteries. There is no demonstrated pulmonary embolism. Normal thoracic aorta and visualized great vessels. There is no demonstrated aortic dissection. Normal heart and pericardium. Normal mediastinum. Normal hilar regions. Small hiatal hernia. Normal visualized trachea and bronchi. The lungs are well expanded. No pneumothorax. Normal pulmonary parenchyma. Normal pleura. Normal chest wall structures. Normal osseous structures. Normal visualized upper abdomen. CT/CTA Chest W/WO Contrast IMPRESSION: Normal CTA chest examination, without a demonstrated pulmonary embolism or arterial dissec tion. Small hiatal hernia noted previously. Electronically Signed: Santos Burnett MD at 5:40 EDT , Service support [phone], CC: Paty Sanon [employer] Supply [employer] Vice President: Signed 08-Apr-2016 Chest PA and Lateral Result: Comments: See Note; NOTES: [facility] Imaging Services [address] [place], [place] [address] [address] Verdana 4d Chest PA and Lateral MR#: [id number] Acct: [id number] Name: SIMI NIELSEN Rep #: [id number] : 1970 F 46 From: Flex Martinez MD PCP: Paty Catalan DO Status: REG CLI Study: Chest PA and Lateral Date of Exam: 04/08/16 Exam# [id number] Ordering Dr: Robel Sanon STUDY: X-RAY CHEST REASON FOR EXAM: Female, 46 years old. Abnormal pulmonary function test, difficulty breathing TECHNIQUE: PA and lateral views of the chest. COMPARISON: Prior chest x-ray from 08-25-15. _ FINDINGS: The lungs are clear and expanded. There is no demonstrated pleural abnormality. Normal size heart. Normal mediastinum and payton. Normal visualized pulmonar y arteries. Normal visualized aortic arch and descending thoracic aorta. Normal visualized thoracic spine. Normal visualized ribs, clavicles, and shoulders. There is no demonstrated abnormality of the visualized soft tissue structures of the upper abdomen. RAD/Chest PA and Lateral IMPRESSION: Normal x-ray examination of the chest. Stable sinc e the last examination Electronically Signed: Flex Martinez MD, FACR at 15:01 EDT , Service support [phone], CC: Paty Catalan DO; Robel Sanon [employer] Vice President: Signed 01-Apr-2016 Pulmonary Function Report Comp Result: Comments: See Note; NOTES: [facility] Pulmonary Services/Neurology [address] [place] [address] Pulmonary Function Test (Comp) MR#: [id number] Acct: [id number] Name: SIMI NIELSEN Rep #: [id number] : 1970 46 From: Louie Chaudhary MD Referring Dr: Robel Sanon Status: REG CLI Ordering Dr: Robel Sanon Date: 03/31/16 Location: [facility] Sex: F C DATE OF SERVICE: 03/31/2016 DATE OF SERVICE: March 31, 2016. BRIEF HISTORY OF PRESENT ILLNESS: The patient is a 46-year-old female, currently under the care of Dr. Robel Sanon, who presents for a complete pulmonary f unction test secondary to a diagnosis of dyspnea. The respiratory therapist reported good patient effort, but had difficulty with DLCO. INTERPRETATION: Forced expiration spirometry demonstrates no larg e airways obstructive ventilatory defect. There is no significant response to bronchodilators noted. Spirograms are of good quality and do not plateau indicating slowly emptying areas of the lung. The r espiratory flow volume loop appears normal. Lung volumes by body plethysmography show a reduced total lung capacity at 3.84 L, 74% of predicted. These findings are consistent with a mild restrictive ve ntilatory defect. Diffusion capacity by single breath carbon monoxide is severely reduced at 46% of predicted. Airway resistance is normal. IMPRESSION: Mild restrictive ventilatory defect with a reduc tion in diffusion capacity. Consider workup for interstitial lung disease versus pulmonary edema. MD Anahi RINALDI C: Robel Sanon M.D. T: GRAHAM JOB: [id number] 04/01/16 0726 <Electronically signed by Louie Chaudhary MD> Date Louie Chaudhary MD CC: Louie Chaudhary MD; Paty Sanon Date Dictated: 03/31/161617 Date Transcribed: 03/31/161617 [employer] Supply Chain Vice President: Signed 30-Mar-2016 Emergency Department Summary Result: Comments: See Note; NOTES: [facility] Medical Records Department [address] [place] [address] Emergency Department Summary MR#: [id number] Acct: [id number] Name: HOWARD NIELSEN Rep #: [id number] : 1970 46 From: Gabriel Menard DO PCP: Paty Catalan DO Status: [facility] ER DATE OF SERVICE: 03/21/2016 CHIEF COMPLAINT: Left leg pain. HISTORY OF PRESENT ILLNESS: A 46-yea r-old female with left leg pain for 2 days. No injury. She has a history of DVT. She is on Xarelto. She is concerned about another clot possibly. PAST MEDICAL HISTORY: Significant for DVT. PAST SURGIC AL HISTORY: Includes cholecystectomy and hysterectomy. PRIMARY CARE PHYSICIAN: Dr. Catalan. ALLERGIES: She has no known drug allergies. SOCIAL HISTORY: She does not smoke or drink alcohol. PHYSICAL E XAMINATION: VITAL SIGNS: On presentation, blood pressure 140/86, temp 97.1, heart rate 107, respirations 20, pulse oximetry 100% on room air. GENERAL: She is awake, alert, in no acute distress, nontoxic appearing. HEENT: She is normocephalic, atraumatic. Pupils equal, react to light. TMs are clear. NECK: Supple. Mucous membranes moist. CARDIOVASCULAR: Heart is regular rate and rhythm. LUNGS: Clear. No rales or wheezes. ABDOMEN: Soft, nontender. EXTREMITIES: Intact x4. Evaluation of the left leg reveals some diffuse tenderness to palpation to the left calf. There is no obvious soft tissue swelling or edema. There is no erythema. She has got normal pulses, popliteal, dorsal pedal, and posterior tibial. Normal deep tendon reflexes, +2/4 equal bilaterally at the patella and Achilles. Normal L5 extensi on. Exam otherwise unremarkable. EMERGENCY DEPARTMENT COURSE: An ultrasound of the left lower extremity obtained showed no evidence of DVT. At this point, she will be discharged to home. DIAGNOSES: Le ft leg pain, suspect strain of her calf. The patient was given a script for Yeso for severe pain. She did not want crutches. Instructed to follow up with Dr. Catalan within next 5-7 days. DISPOSITIO N: Discharged home in stable condition. Gabriel Menard DO T: NTS JOB: [id number] 03/30/16 1652 <Electronically signed by Gabriel Menard DO> Date ____ Gabriel Menard DO Cosigner Signature (If Indicated): Date CC: Paty Catalan DO Date Dictated: 03/21/16 1037 Date Transcribed: 03/21/16 1037 [employer] Supply [employer] Vice President: Signed 21-Mar-2016 Venous Duplex Lower Extremity Result: Comments: See Note; NOTES: [facility] Cardiovascular Services [address] [place] [address] Venous Duplex US, Unilateral 03/21/16 1002 MR#: [id number] Acct: [id number] Name: SIMI NIELSEN Rep #: [id number] : 1970 46 From: Mamadou Bonds MD Attending Dr: Status: DEP ER Ordering Dr: Gabriel Menard DO Date: 03/21/16 Location: ED Sex: F C Admitted: Reason For Study: pain RIGHT LEFT CFV is compressible, spontaneous, phasic, GSV is normal. competent and demonstrates normal CFV is compressible, spontaneous, phasic , augmentation. competent, and demonstrates normal P rocedure augmentation. Exam performed portable in ED. FV is compressible, spontaneous, phasic, The exam was diagnostic. competent and demonstrates normal A preliminary report was called and/or faxed aug mentation. to Dr. Marsh. POP V is compressible, spontaneous, phasic, competent and demonstrates normal augmentation. T/P Trunk is compressible. PTV is compressible. LT PerV is compressible. Interpretat ion Summary Deep veins of the left lower extremity are patent and compressible segmentally. There is no evidence of left lower extremity deep vein thrombosis. Valvular competence appears intact within t he proximal deep venous system on the left . The left greater saphenous vein appears patent and compressible segmentally. Ordering Physician: Gabriel Menard Performed By: Behzad Guzman, RVT 03/21/16 1733 Date Mamadou Bonds MD CC: Paty Catalan DO; Gabriel Menard DO Date Dictated: 03/21/16 1002 Date Transcribed: 03/21/16 173 [employer] Vice President: Signed 21-Mar-2016 Discharge Instruction Result: Comments: See Note; NOTES: [facility] Medical Records Department [address] [place] [address] Discharge Instruction 03/21/16 1034 MR#: [id number] Acct: [id number] Name: SIMI SUTTON Rep #: [id number] : 1970 46 From: Gabriel Menard DO PCP: Paty Catalan DO Status: REG ER ED Disposition - Plan for ED Patient: Chief Complaint: Lower Extremity Injury Instructions: ED Muscle Strain, Extremity Prescriptions: Hydrocodone Bitart/Apap 5-325 [Yeso 5/325] 1 - 2 tablet PO Q4H PRN PRN #12 tablet PRN Reason: Pain Referrals: Paty Catalan DO [Primary Care Provider] - 5 -7 Days What to do if you have Problems For any increased pain, shortness of breath, bleeding, nausea or vomiting, chest pain, or any unexpected problems, contact your doctor. Call [facility] ([phone]) or report to the closest Emergency Room. Call 911 if necessary. 03/21/16 1035 <Electronically signed by Gabriel Menard DO> Date ___ Gabriel Menard DO Cosigner Signature (If Indicated): Date CC: Paty Catalan DO 18-Mar-2016 Echo, Complete w/ Contrast Result: Comments: See Note; NOTES: [facility] Cardiovascular Services [address] [place] [address] Echo Complete W/ Contrast 03/18/16 0853 MR#: [id number] Acct: [id number] Name: SIMI GUERRIER Rep #: [id number] : 1970 46 From: Frederick Butt MD Attending Dr: Robel Sanon Status: REG CLI Ordering Dr: Robel Sanon Date: 03/18/16 Location: [facility] Sex: F C Admitted: Reason Fo r Study: SOB of exertion Procedure This was a 2D Doppler, Color Flow transthoracic echocardiogram. The study was technically difficult. Exam performed in department. Left Ventricle Normal size and thi ckness. The estimated ejection fraction is 65 %. Stage 1 diastolic dysfunction. No regional wall motion abnormalities noted. Right Ventricle Mildly dilated right ventricle. Normal systolic function. A tria Normal left atrium. Normal right atrium. Normal atrial septum. Bubble contrast study negative for right to left interatrial shunt. Mitral Valve The mitral valve is structurally normal. No prolapse or stenosis seen. Tricuspid Valve Normal tricuspid valve. Unable to estimate RV systolic pressure/pulmonary artery pressure due to technically difficult study. Aortic Valve Normal aortic valve. Trisi nus/trileaflet aortic valve. Pulmonic Valve The pulmonic valve is not well visualized. Great Vessels Normal aortic root. Normal arch. Normal inferior vena cava. Inferior vena cava collapse with sniff. Pericardium/Pleural No pericardial effusion. Medication Performed a rapid injection of agitated mix of 9 cc saline and 1cc air to assess for atrial septal defect. Definity0.4ml given slow IV push to e nhance endocardial definition. MMode/2D Measurements & Calculations LVIDd: 5.0 cm IVSd: 1.1 cm Ao root diam: 3.0 cm LVIDs: 3.5 cm LVPWd: 1.2 cm LA dimension: 3.6 cm FS: 30.9 % LAV(MOD-bp): 30.8 ml LA A4 area: 11.7 cm2 RA A4 area: 11.6 cm2 LAV(MOD-bp) Indexed: 13.0 ml/m2 LAV(MOD-sp2): 32.2 ml LAV(MOD-sp4): 26.2 m l Doppler Measurements & Calculations MV E max emma: 44.3 cm/sec Lat Peak E' Emma: 8.6 cm/sec Med Peak E' Emma: 8.6 cm/sec MV A max emma: 69.6 cm/sec E/E' lat: 5.2 E/E' med: 5.2 MV E/A: 0.64 Ao V2 max: 151.5 cm/sec LV V1 max: 112.9 cm/sec PA V2 max: 102.0 cm/sec Ao max P.2 mmHg LV V1 max P.1 mmHg Ao V2 mean: 95.6 cm/sec Ao mean P.2 mmHg Ao V2 VTI: 24.4 cm Interpretation Summary The estimated ejection fraction is 65 %. Stage 1 diastolic dysfunction. Mildly dilated right ventricle. Bubble contrast study negative for right to left interatrial shunt. Unable to estimate RV systolic pressure/pulmonary artery pressure due to technically difficult study. Compared to echo report dated 09/05/2009, Lv function has remained the same, but RV now appears to be mildly enlarged. The study was technically difficult. Contrast injection was performed. Ordering Physician: Robel Sanon Referring Physician: Paty Catalan Performed By: Ella Davies RDCS, RVT Electronically signed by: Frederick Butt MD on 2015 11:05 AM 03/18/16 1105 Date Frederick Butt MD CC: Paty Catalan DO; Robel Sanon Date Dictated: 03/18/16 0853 Date Transcribed: 03/18/16 1105 Global Supply Chain Vice President: Signed 12-Mar-2016 Foot min 3 Views Result: Comments: See Note; NOTES: [facility] Imaging Services [address] [place] [address] Verdana 4d Foot min 3 Views MR#: [id number] Acct: [id number] Name: SIMI NIELSEN Rep #: [id number] : 1970 F 46 From: Jaxon Adame MD PCP: Paty Catalan DO Status: REG CLI Study: Foot min 3 Views Date of Exam: 03/12/16 Exam# [id number] Ordering Dr: Robel Sanon STUDY: X-R AY - RIGHT FOOT CLINICAL: Female, 46 years old. Pain following a recent fall. TECHNIQUE: 3 view(s) of the foot. COMPARISON: None. FINDINGS: There is a plantar koby caneal spur. Normal visualized subtalar, talonavicular, calcaneocuboid, tarsal and tarsometatarsal articulations. Normal metatarsi. Normal metatarsophalangeal joint of the great toe. Normal tibial an d fibular sesamoid bones. Normal interphalangeal joint of the great toe. Normal phalanges of the great toe. Normal second through fifth metatarsophalangeal joints. Normal interphalangeal joints and pha langes of the lesser toes. Soft tissue swelling. RAD/Foot min 3 Views IMPRESSION: Soft tissue swelling. Small plantar spur. Electronically Sig vadim: Jaxon Adame MD at 13:59 EDT Tel [phone], Service support [phone], CC: Paty Catalan DO; Robel Fab [employer] Chain Vice President: Signed 27-Aug-2015 12 Lead Electrocardiogram Result: Comments: See Note; NOTES: [facility] Cardiovascular Services [address] [place] [address] 12 Lead EKG 08/25/152241 MR#: [id number] Acct: [id number] Name: MEE ORISIMI Amanda Rep #: [id number] : 1970 45 From: Mark Underwood MD Attending Dr: Status: DEP ER Ordering Dr: Richard Abreu MD Date: 08/25/15 Location: ED Sex: F C Admitted: Test Reason : SOB Blood Pressure : / mmHG Vent. Rate : 089 BPM Atrial Rate : 089 BPM P-R Int : 150 ms QRS Dur : 088 ms QT Int : 370 ms P-R-T Axes : 039 -11 034 degrees QTc Int : 450 ms Normal sinus rh [facility] Normal ECG Confirmed by CARLOS LEON, MARK ([id number]), tape editor NAYANA SAWANT ([id number]) on 08/27/2015 12:58:37 PM Referred By: NS Confirmed By:MARK UNDERWOOD MD 08/27/15 1258 Date Mark Underwood MD CC: Paty Catalan DO Date Dictated: 08/25/152241 Date Transcribed: 08/25/152241 [employer] Supply Chain Vice President: Signed 25-Aug-2015 Chest PA and Lateral Result: Comments: See Note; NOTES: [facility] Imaging Services [address] [place] [address] Verdana 4d Chest PA and Lateral MR#: [id number] Acct: [id number] Name: MEEELIDA KayeSIMI Amanda Rep #: [id number] : 1970 F 45 From: Alycia Lara DO PCP: Paty Catalan DO Status: DEP ER Study: Chest PA and Lateral Date of Exam: 08/25/15 Exam# [id number] Ordering Dr: Richard Abreu MD STUDY: X-RAY CHEST REASON FOR EXAM: Female, 45 years old. Shortness of breath, history of pulmonary emboli TECHNIQUE: COMPARISON: CTA 10/02/2014, portions of the chest included on rib study 10/10/2014 FINDINGS: The lungs are clear and expanded. There is no demonstrated pleural abnormality. Normal size heart. Normal mediastinum and payton. Normal visualized pulmonary arteries. Normal visualized aortic arch and descending thoracic aorta. Normal visualized thoracic spine. Normal visualized ribs, clavicles, and shoulders. There is no demonstrated abnormality of the visualized soft tissue structures of the upper abdomen. IMPRESSION: Normal x-ray examination of the chest. Electronically Sign ed: Alycia Lara DO at 23:27 EST Tel , Service support [phone], RAD/Chest PA and Lateral IMPRESSION: Normal x-ray examination of the chest. Electronically Signed: Alycia Lara DO at 23:27 EST Tel , Service support [phone], CC: Paty Catalan DO; Richard Abreu MD Global Supply Chain Vice President: Signed 31-Dec-2014 12 Lead Electrocardiogram Result: Comments: See Note; NOTES: [facility] Cardiovascular Services [address] [place] [address] 12 Lead EKG 12/28/14 0049 MR#: [id number] Acct: [id number] Name: NIELSENUYNIOR SA Rep #: [id number] : 1970 44 From: Mark Underwood MD Attending Dr: Status: DEP ER Ordering Dr: Humberto Jaimes MD Date: 12/28/14 Location: ED Sex: F C Admitted: Test Reason : Bloo d Pressure : / mmHG Vent. Rate : 084 BPM Atrial Rate : 084 BPM P-R Int : 152 ms QRS Dur : 088 ms QT Int : 412 ms P-R-T Axes : 058 -13 013 degrees QTc Int : 486 ms Normal sinus rhythm Non specific T wave abnormality Abnormal ECG Confirmed by MARK UNDERWOOD MD ([id number]), tape editor NAYANA SAWANT ([id number]) on 12/31/2014 1:38:48 PM Referred By: IAN Confirmed By:MARK UNDERWOOD MD 12/31/14 1338 Da te Mark Underwood MD CC: Paty Catalan DO Date Dictated: 12/28/1448 Date Transcribed: 12/28/1448 Global Supply Chain Vice President: Signed 28-Dec-2014 Emergency Department Summary Result: Comments: See Note; NOTES: [facility] Medical Records Department [address] [place] [address] Emergency Department Summary MR#: [id number] Acct: [id number] Name: SIMI STRAUSS Rep #: [id number] : 1970 44 From: Humberto Jaimes MD PCP: Paty Catalan DO Status: REG ER DATE OF SERVICE: 12/28/2014 CHIEF COMPLAINT: Abnormal behavior, hallucinations. H ISTORY OF PRESENT ILLNESS: This is a 44-year-old female with history of bipolar disorder, schizophrenia, presents with abnormal behavior, hallucinations. Apparently, the mother called police tonight because the patient was babbling. She was admitting to seeing people. The patient has a history of schizophrenia apparently and family found her pills in the trash. They are unsure how long she has be en off her medications. She has a history of abnormal behavior recently hospitalized about 2 months ago for similar symptoms. The family says that she usually ends up suicidal when she is off medicati ons, but will also have hallucinations from time to time. They denied any history of drug use. The patient does not give any history and will not interact with examination. PHYSICAL EXAMINATION: CHEKO SIGNS: Afebrile. Vitals are unremarkable. GENERAL: Obese female in no acute distress. HEENT: The patient lays in bed with repetitive nonsensical speech. She will intermittently say words when I a sk her questions, but they are not appropriate. She moves all 4 extremities. She does follow commands with her extremities. She opens her eyes. She does have extraocular motions intact. NECK: Supple. HEART: Regular. LUNGS: Clear. ABDOMEN: Soft. EMERGENCY DEPARTMENT COURSE: The patient's symptoms do seem to be secondary to decompensated psychiatric disease. She was given IM Geodon. Screening labs were obtained. CBC was unremarkable. Chemistry was unremarkable. Urine showed no infection. Tox was negative. Alcohol was only minimally elevated at 0.01. I do feel this patient is going to requi re a Crisis evaluation given her psychosis and medication noncompliance along with hallucinations. She will be evaluated here in the Emergency Department. IMPRESSION: Psychosis. DISPOSITION: Per Crisis. Humberto Jaimes MD T: NTS JOB: [id number] 12/28/14 0121 <Electronically signed by Humberto Jaimes MD> Date Humberto becker MD CC: Paty Catalan DO Date Dictated: 12/28/1454 Date Transcribed: 12/28/1454 Global Supply Chain Vice President: Signed 28-Dec-2014 Brain/Head without Contrast Result: Comments: See Note; NOTES: [facility] Imaging Services [address] [place] [address] CAT Scan Report MR#: [id number] Acct: [id number] Name: SIMI NIELSEN Rep #: [id number] : 1970 F 44 From: Rachid Donald MD PCP: Ptay Catalan DO Status: [facility] ER Study: Brain/Head without Contrast Date of Exam: 12/28/14 Exam# [id number] Ordering Dr: Humberto Jaimes MD STUDY: CT BRAIN WITHOUT CONTRAST REASON FOR EXAM: Female, 44 years old. Hearing voices, confusion, history of bipolar illness and schizophrenia RADIATION DOSAGE (If Supplied By Facility): CTDI vol = ( 58.45 ) mGy, DLP = ( 1066.83 ) mGycm TECHNIQUE: Transaxial CT imaging of the brain was performed without administration of intravenous contrast material. COMPARISON: 11/10/2014 FINDINGS: Normal soft tissue structures. Normal calvarium. There are coarse dural calcifications seen in the midline towards the vertex, unchanged. Normal size ventricles and extra-axial spaces for the patient's age. Normal white matter tracts of the cerebral hemispheres. Normal basal ganglia and thalami. Normal brainstem. Normal cerebellum. Pineal gland calcification s are prominently depicted, unchanged. There is no intracranial hemorrhage. There are no findings of an acute ischemic infarction. Normal visualized paranasal sinuses. IMPRESSION: Normal unenhanced CT scan of the brain, without interval change. Electronically Signed: Les Donald MD at 1:34 EDT Tel , Service support [phone], CC: Paty Catalan DO; Humberto Jaimes MD Global Supply Chain Vice President: Signed 13-Nov-2014 Emergency Department Summary Result: Comments: See Note; NOTES: [facility] Medical Records Department [address] [place] [address] Emergency Department Summary MR#: [id number] Acct: [id number] Name: SIMI STRAUSS Rep #: [id number] : 1970 44 From: Humberto Glavez MD PCP: Paty Catalan DO Status: [facility] ER DATE OF SERVICE: 11/10/2014 METHOD OF ARRIVAL: By EMS. CHIEF COMPLAINT: Hallucinati ons. PRIMARY CARE: Paty Catalan D.O. PSYCHIATRIST: Taina Painter M.D. MARTINEZ HISTORY: This is a 44-year-old female with history of schizophrenia, bipolar, prior DVT, CHF, comes in by [employer] w ith hallucinations. Family called [employer] for this reason. This has apparently been going on for several days, getting worse. The patient denies being depressed or suicidal, but she recently just got ou t of Gail last week, for being suicidal. They did change some medications according to the family. She has been having visual and auditory hallucinations where she is seeing clowns and green peop le. She does state that there are saying things to her, but she cannot make it out. The family do believe that she has been taking her meds. She has been tired recently and has been to herself more s o. REVIEW OF SYSTEMS: No fever, chest pain, nausea, vomiting, diarrhea or other complaints other than noted above. PHYSICAL EXAMINATION: VITAL SIGNS: Stable. Afebrile. HEENT: Unremarkable. NECK : Supple. LUNGS: Clear. HEART: Regular. ABDOMEN: Soft, nontender. No leg edema or swelling. NEUROLOGIC: She is alert and oriented. She is kind of soft- spoken, kind of a poverty of speech with hallu cinations. She denies being suicidal or depressed, but she has a flat blunted affect as well. TESTS: CT of the brain was obtained due to the fact she is on anticoagulation with Xarelto. This was ne gative. CBC: Her white count is normal with hemoglobin 15.2, normal differential. Chemistry panel remarkable for glucose of 113. Tox screen is negative. Alcohol is negative. EMERGENCY DEPARTMENT COU RSE: The patient worked up for mental health. At this time, the patient will be evaluated by Crisis for further evaluation. CLINICAL IMPRESSION: 1. Psychosis. 2. Hallucinations. 3. History of bip olar schizophrenia. DISPOSITION: Pending. Humberto Galvez MD C C: [facility] Paty Owusu MD T: NTS JOB: [id number] 11/13/14 0906 <Electronically signed by Humberto Galvez MD> Date Humberto Galvez MD CC: Paty Catalan DO; Taina Painter MD Date Dictated: 11/11/1431 Date Transcribed: 11/11/1431 Global Supply Chain Vice President: Signed 12-Nov-2014 Emergency Department Summary Result: Comments: See Note; NOTES: [facility] Medical Records Department [address] [place] [address] Emergency Department Summary MR#: [id number] Acct: [id number] Name: SIMI STRAUSS Rep #: [id number] : 1970 44 From: Eleazar Shipley MD PCP: Paty Catalan DO Status: [facility] ER DATE OF SERVICE: 10/29/2014 CHIEF COMPLAINT: Suicidal and depressed. HISTORY OF P RESENT ILLNESS: A 44-year-old female who suffers from depression, was admitted to [facility] in June for depression and suicidal ideation. States she suffers some mental illness. Tells me that according to her, her is very controlling. She denies him being physical abusive but says that she has become more and more depressed and she wants to jump off a dimitry to kill herself, sa ys that she did jump off a dimitry or a some structure several weeks ago, was admitted to [place] at that time for injury she sustained. PHYSICAL EXAMINATION: GENERAL: A middle-aged white female. VIT AL SIGNS: Stable, afebrile. Does not look septic or toxic. HEENT: Atraumatic. NECK: Nontender. Trachea midline. LUNGS: Clear to auscultation bilaterally. HEART: Regular rate and rhythm. No murmur. ABDOMEN: Soft, nontender, nondistended. No organomegaly or masses, obese. PELVIS: Pelvic girdle intact. EXTREMITIES: Moves all 4. Neurovascularly intact. No signs of acute lacerations. No deformities . Normal range of motion. BACK: Nontender. NEUROLOGIC: She is awake and alert with no focal deficits. No signs of ____. IMPRESSION: 1. Acute on chronic depression. 2. History of mental illness. 3 . Suicidal ideation. PLAN: We will do the mental health laboratory evaluation and have Crisis evaluate the patient. She did call the police today who did bring her up and pink slipped her. Carlene Shipley MD C C: [facility] Paty Catalan DO T: [facility] JOB: [id number] 11/12/14 2342 <Electronically signed by Eleazar Shipley MD> Date Eleazar Shipley MD CC: Paty Catalan DO Date Dictated: 10/29/14100 Date Transcribed: 10/29/14100 [employer] Vice President: Signed 11-Nov-2014 Emergency Department Summary Result: Comments: See Note; NOTES: [facility] Medical Records Department [address] [place] [address] Emergency Department Summary MR#: [id number] Acct: [id number] Name: SIMI STRAUSS Rep #: [id number] : 1970 44 From: Humberto Drake MD PCP: Paty Catalan DO Status: REG ER DATE OF SERVICE: 11/10/2014 ADDENDUM: The patient was endorsed to me by the [facility] physician. The patient was evaluated by mental health, who agreed that the patient requires admission. I signed the patient's pink-slip and transfer forms, and the patient will be admitted for psyc hosis. Humberto Drake M.D. T: [facility] JOB: [id number] 11/11/14 0430 <Electronically signed by Humberto Drake MD> Date Hmuberto armando MD CC: Paty Catalan DO Date Dictated: 11/11/14150 Date Transcribed: 11/11/14150 [employer] Vice President: Signed 10-Nov-2014 Brain/Head without Contrast Result: Comments: See Note; NOTES: [facility] Imaging Services [address] [place] [address] CAT Scan Report MR#: [id number] Acct: [id number] Name: SIMI NIELSEN Rep #: [id number] : 1970 F 44 From: Dayne Ocasio MD PCP: Paty Catalan DO Status: REG ER Study: Brain/Head without Contrast Date of Exam: 11/10/14 Exam# [id number] Ordering Dr: Humberto Galvez MD [facility] DY: CT BRAIN WITHOUT CONTRAST REASON FOR EXAM: Female, 44 years old. HALLUCINATIONS. PATIENT NOT ACTING NORMAL PER . HX CHF, BIPOLAR, SCHIZOPHRENIA RADIATION DOSAGE (If Supplied By Facility) : CTDIvol = ( 58.38 ) mGy, DLP = ( 1043.69 ) mGycm TECHNIQUE: Transaxial CT imaging of the brain was performed without administration of intravenous contrast material. COMPARISON: CT - Brain - 201 10/29/14 02:04 FINDINGS: Normal soft tissue structures. Normal calvarium. Normal size ventricles and extra-axial spaces for the patient's age. Normal white mat ter tracts of the cerebral hemispheres. Normal basal ganglia and thalami. Normal brainstem. Normal cerebellum. There is no intracranial hemorrhage. There are no findings of an acute ischemic infarct ion. Normal visualized paranasal sinuses. IMPRESSION: Normal unenhanced CT scan of the brain. Electronically Signed: Dayne Ocasio MD at 23:45 E DT , Service support [phone], CC: Paty Catalan DO; Humberto Galvez MD [employer] Vice President: Signed 29-Oct-2014 Emergency Department Summary Result: Comments: See Note; NOTES: [facility] Medical Records Department [address] [place] [address] Emergency Department Summary MR#: [id number] Acct: [id number] Name: SIMI SUTTON Rep #: [id number] : 1970 44 From: Eleazar Shipley MD PCP: Paty Catalan DO Status: REG RCR DATE OF SERVICE: 10/29/2014 CHIEF COMPLAINT: Suicidal and depressed. HISTORY OF P RESENT ILLNESS: A 44-year-old female who suffers from depression, was admitted to [facility] in June for depression and suicidal ideation. States she suffers some mental illness. Tells haris kaye that according to her, her is very controlling. She denies him being physical abusive but says that she has become more and more depressed and she wants to jump off a dimitry to kill herself , says that she did jump off a dimitry or a some structure several weeks ago, was admitted to [place] at that time for injury she sustained. PHYSICAL EXAMINATION: GENERAL: A middle-aged white female . VITAL SIGNS: Stable, afebrile. Does not look septic or toxic. HEENT: Atraumatic. NECK: Nontender. Trachea midline. LUNGS: Clear to auscultation bilaterally. HEART: Regular rate and rhythm. No mur mur. ABDOMEN: Soft, nontender, nondistended. No organomegaly or masses, obese. PELVIS: Pelvic girdle intact. EXTREMITIES: Moves all 4. Neurovascularly intact. No signs of acute lacerations. No defo rmities. Normal range of motion. BACK: Nontender. NEUROLOGIC: She is awake and alert with no focal deficits. No signs of ____. IMPRESSION: 1. Acute on chronic depression. 2. History of mental illn ess. 3. Suicidal ideation. PLAN: We will do the mental health laboratory evaluation and have Crisis evaluate the patient. She did call the police today who did bring her up and pink slipped her. Eleazar Shipley MD C C[facility] Paty Catalan DO T: NTS JOB: [id number] 10/29/14 0349 <Electronically signed by Eleazar Shipley MD> Date Eleazar Shipley MD CC: Paty Catalan DO Date Dictated: 10/29/14100 Date Transcribed: 10/29/14100 [employer] Vice President: Signed 23-Oct-2014 Emergency Department Summary Result: Comments: See Note; NOTES: [facility] Medical Records Department [address] [place] [address] Emergency Department Summary MR#: [id number] Acct: [id number] Name: SIMI SUTTON Rep #: [id number] : 1970 44 From: Osiris Rueda PCP: Paty Catalan DO Status: [facility] ER DATE OF SERVICE: 10/10/2014 HISTORY OF PRESENT ILLNESS: The patient is a 44-year-old femal e who fell down 10 stairs complaining of headache, chest pain, abdominal pain. It is severe. It is worse with any movement. She did not lose consciousness. History is limited by the patient's mental distress. She has a history of a DVT and is on Eliquis. PHYSICAL EXAMINATION: VITAL SIGNS: Heart rate 104. Other vitals are within acceptable limits. GENERAL: Obese female. HEENT: Normal. NECK: Nontender. HEART: She has a regular rate and rhythm. No murmurs. RESPIRATORY: No respiratory distress. Clear to auscultation bilaterally. She has tenderness to palpation in the right posterior chest. ABDOMEN: She has soft abdomen that is diffusely tender to palpation with bruising and abrasions of the soft tissue. BACK: She has thoracic paraspinal tenderness and lumbar tenderness to palpation. SKIN: Reveals multiple abrasions of the abdomen and bilateral anterior lower extremities. She has a 7 cm full-thickness laceration on the left frontal scalp. NEUROLOGICAL: She is alert and oriente d. GCS is 15. She is very anxious and distressed. EMERGENCY DEPARTMENT COURSE: Chest x-ray and right rib series show no fracture. CT of the head is unremarkable for intracranial injury. CT of the abdomen shows no intra-abdominal injuries, but she does have transverse process fractures of L2 and L3. Screening labs were obtained. White blood cell count was 16.4. She was given morphine, Ativan and Adacel. She was feeling somewhat better, still had continued pain. She was given 4 more of morphine. Because of the patient's severe pain, her head injury, on anticoagulation and her transverse process fractures, I do think she requires transfer for evaluation at a trauma center. I spoke with Dr. Sawant at [place] at the patient's request for transfer there. He did request that I discuss i f the patient may go home with the ER. This was discussed with the patient and her family at the bedside. DISPOSITION: Transfer. DIAGNOSES: 1. Head injury. 2. L2, L3 transverse process fractures . MD Anahi Patel C: Paty Catalan DO T: [facility] JOB: [id number] 10/23/14 2337 <Electronically signed by Osiris Rueda > Date Osiris Rueda CC: Paty Catalan DO Date Dictated: 10/10/14425 Date Transcribed: 10/10/14425 [employer] Vice President: Signed 10-Oct-2014 Ribs Uni Min 3V w/PA Chest Result: Comments: See Note; NOTES: [facility] Imaging Services [address] [place] [address] Radiology Report MR#: [id number] Acct: [id number] Name: SIMI NIELSEN Rep #: [id number] : 1970 F 44 From: Pedro Luis Palafox PCP: Paty Catalan DO Status: DEP ER Study: Ribs Uni Min 3V w/PA Chest Date of Exam: 10/10/14 Exam# [id number] Ordering Dr: Osiris Rueda STUDY: X-RAY - UNILATERAL RIBS ( RIGHT ) WITH CHEST REASON FOR EXAM: Female, 44 years old. Fall TECHNIQUE - RIBS: 4 view(s) of the ribs. TECHNIQUE - CHEST: Single frontal view COMPARISON: None. FINDINGS - RIBS: Normal visualized ribs without a demonstrated fracture. FINDINGS - CHEST: The lungs are clear and expanded. There is no demonstrated pleural abnor mality. Normal size heart. Normal mediastinum and payton. Normal visualized pulmonary arteries. Normal visualized aortic arch and descending thoracic aorta. Normal visualized thoracic spine. Normal visualized ribs, clavicles, and shoulders. There is no demonstrated abnormality of the visualized soft tissue structures of the upper abdomen. IMPRESSION: R IBS: Normal x-ray examination of the ribs. CHEST: Normal x-ray examination of the chest. Electronically Signed: Pedro Luis Palafox MD at 7:43 EDT , Service support , RAD/Ribs Uni Min 3V w/PA Chest IMPRESSION: RIBS: Normal x-ray examination of the ribs. CHEST: Normal x-ray examination of the chest. Electronical ly Signed: Pedro Luis Palafox MD at 7:43 EDT , Service support [phone], CC: Osiris Catalan DO [employer] Vice President: Signed 10-Oct-2014 Abdomen/Pelvis W IV Cont ONLY Result: Comments: See Note; NOTES: [facility] Imaging Services [address] [place] [address] CAT Scan Report MR#: [id number] Acct: [id number] Name: SIMI NIELSEN Rep #: [id number] : 1970 F 44 From: Pedro Luis Palafox PCP: Paty Catalan DO Status: REG ER Study: Abdomen/Pelvis W IV Cont ONLY Date of Exam: 10/10/14 Exam# [id number] Ordering Dr: Osiris Rueda Y: CT ABDOMEN AND PELVIS WITH CONTRAST REASON FOR EXAM: Female, 44 years old. Trauma RADIATION DOSAGE (If Supplied By Facility): CTDIvol = ( 31.59 ) mGy, DLP = ( 3243.58 ) mGycm TECHNIQUE: Transa xial images were obtained from the dome of the diaphragm to the symphysis pubis without oral contrast. 100ML ml of Isovue 300 contrast was administered. Sagittal and coronal images were reconstructed. COMPARISON: None. FINDINGS: The visualized lung bases are unremarkable. The visualized portions of the heart are within normal limits. Normal liver. There are surgical clips in the gallbladder fossa consistent with a prior cholecystectomy. Normal spleen. Normal pancreas. Normal bilateral adrenal glands. Normal right kidney. Normal left kidney. Norm al visualized stomach. Normal small intestine. Normal colon. The appendix is visualized and appears normal. Normal abdominal aorta. Normal inferior vena cava. There are phleboliths in the RIGHT ovar kassidy vein. There is NO adenopathy. Normal urinary bladder. There is absence of the uterus consistent with a prior hysterectomy. There are varices in the lower anterior abdominal wall. This could be secondary to stenosis or occlusion of the LEFT common and external iliac vein. There appears to be compression of the LEFT common iliac vein by the RIGHT common iliac artery. 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 This can be evaluated with venogram if indicated. There is focal bruising of the LEFT lower quadrant anterior abdominal wall. There are ventral hernia defect containing omental fat o nly. There is degenerative disc change and facet arthropathy at L5-S1. There are fractures of the LEFT transverse process of L2, bilateral transverse processes of L3. IMPRESSION: There has been a cholecystectomy and a hysterectomy. There is NO liver or spleen laceration. There is NO hemoperitoneum. There are varices in the lower anterior abdominal wall. This could be secondary to stenosis or occlusion of the LEFT common and external iliac vein. There appears to be compression of the LEFT common iliac vein by the RIGHT common iliac artery. 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 This can be evaluated with venogram if indicated. There is focal bruising of the LEFT lower quadrant anterior abdominal wall. There are ventral hernia defect containin g omental fat only. There is degenerative disc change and facet arthropathy at L5-S1. There are fractures of the LEFT transverse process of L2, bilateral transverse processes of L3. Electronicall y Signed: Pedro Luis Palafox MD at 3:30 EDT , Service support [phone], CC: Osiris Rueda; Paty Catalan DO [employer] Vice President: Signed 10-Oct-2014 Brain/Head without Contrast Result: Comments: See Note; NOTES: [facility] Imaging Services [address] [place] [address] CAT Scan Report MR#: [id number] Acct: [id number] Name: SIMI NIELSEN Rep #: [id number] : 1970 F 44 From: Pedro Luis Palafox PCP: Paty Catalan DO Status: REG ER Study: Brain/Head without Contrast Date of Exam: 10/10/14 Exam# [id number] Ordering Dr: Osiris Rueda STUDY: CT BRAIN WITHOUT CONTRAST REASON FOR EXAM: Female, 44 years old. Trauma RADIATION DOSAGE (If Supplied By Facility): CTDIvol = ( 58.48 ) mGy, DLP = ( 1089.23 ) mGycm TECHNIQUE: Transaxial CT imag ing of the brain was performed without administration of intravenous contrast material. COMPARISON: None. FINDINGS: There is mild soft tissue swelling LEFT fro ntal scalp region. Normal calvarium. Normal size ventricles and extra-axial spaces for the patient's age. Normal white matter tracts of the cerebral hemispheres. Normal basal ganglia and thalami. N ormal brainstem. Normal cerebellum. There is no intracranial hemorrhage. There are no findings of an acute ischemic infarction. Normal visualized paranasal sinuses. ____ IMPRESSION: LEFT frontal scalp swelling is seen. There is NO skull fracture. There is NO intracranial hemorrhage. Electronically Signed: Pedro Luis Palafox MD at 3:17 EDT Tel , Service support [phone], CC: Osiris Rueda; Paty Catalan DO [employer] Vice President: Signed 07-Oct-2014 12 Lead Electrocardiogram Result: Comments: See Note; NOTES: [facility] Cardiovascular Services [address] [place] [address] 12 Lead EKG 10/02/14 1925 MR#: [id number] Acct: [id number] Name: HOWARD NIELSEN Rep #: [id number] : 1970 44 From: Frederick Butt MD Attending Dr: Status: DEP ER Ordering Dr: Gabriel Menard DO Date: 10/02/14 Location: ED Sex: F C Admitted: Test Reason : DYSRHYTHMI A Blood Pressure : / mmHG Vent. Rate : 069 BPM Atrial Rate : 069 BPM P-R Int : 156 ms QRS Dur : 084 ms QT Int : 402 ms P-R-T Axes : 046 -03 021 degrees QTc Int : 430 ms Normal sinus rhyt Normal ECG Confirmed by FREDERICK BUTT ([id number]), tape editor NAYANA SAWANT ([id number]) on 10/04/2014 10: 16:38 AM Referred By: CLEMENTE Confirmed By:FREDERICK BUTT 10/04/14 1016 Date Frederick Butt MD CC: Paty Catalan DO Date Dictated: 10/02/141924 Date Transcribed: 10/02/141924 [employer] Vice President: Signed 05-Oct-2014 Emergency Department Summary Result: Comments: See Note; NOTES: [facility] Medical Records Department [address] [place] [address] Emergency Department Summary MR#: [id number] Acct: [id number] Name: SIMI SUTTON Rep #: [id number] : 1970 44 From: Gabriel Menard DO PCP: Paty Catalan DO Status: DEP ER DATE OF SERVICE: 10/02/2014 HISTORY OF PRESENT ILLNESS: This is a 44-year-old female wi th chest pain. She has had intermittently for a couple of days. She describes it as stabbing pains, lasting several minutes to seconds and then resolves. No real nausea or vomiting with it. At times, she has felt some shortness of breath. She is not sure if it is associated with the pain. She is very vague on it. She says she has gotten sweaty at times, but she just thought it was hot. She thi nks she may have been diaphoretic. The patient is concerned because she has a history of DVT and wanted to make sure her blood clot did not travel to her lungs. The patient is currently on Eliquis, blood thinner. She had been on Coumadin, but apparently developed DVT while on Coumadin. PAST SURGICAL HISTORY: Includes cholecystectomy and hysterectomy. PRIMARY CARE PHYSICIAN: Paty Catalan D.O. ALLERGIES: No known drug allergies. SOCIAL HISTORY: She does not smoke or drink alcohol. PHYSICAL EXAMINATION: VITAL SIGNS: On presentation, blood pressure 122/68, temperature 96.7, hear t rate 86, respirations 16, and pulse oximetry 97% on room air. GENERAL: She is awake, alert, in no acute distress. She is nontoxic appearing. HEENT: Normocephalic and atraumatic. Pupils are equal and reactive to light. TMs are clear. Mucous membranes moist. NECK: Supple. CARDIOVASCULAR: Heart is regular. Pulses +2/4 and equal bilaterally in the upper and lower extremities. LUNGS: Clear. N o rales or wheezes. Chest wall stable. No crepitus. No subcutaneous emphysema. ABDOMEN: Soft and nontender. No rebound, rigidity or peritoneal signs. EXTREMITIES: Intact x4. Muscle strength +5/5. E xam is otherwise unremarkable. EMERGENCY DEPARTMENT COURSE: The patient had an IV line established. CBC with diff obtained showed a white count that was normal. Chemistries were normal. Troponin le ss than 0.02. EKG showed a sinus rhythm with a rate of 69 beats per minute with no acute ST-segment changes. CTA of the chest to rule out PE was negative. No evidence of PE or dissection. At this po int, I discussed results with the patient. I do not feel her chest pain is cardiac in nature. She has no real coronary artery risk factors. She is to continue with her Eliquis. Her pain sounds syd y atypical. It is sharp, stabbing, and very fleeting. It does not seem to be exertional. The patient is instructed to follow up with her primary care physician in 3-5 days. DISPOSITION: Discharge d to home in stable condition. Gabriel Menard DO T: [facility] JOB: [id number] 10/05/14 1039 <Electronically signed by Gabriel Menard DO> Date __ Gabriel Menard DO CC: Paty Catalan DO Date Dictated: 10/02/142118 Date Transcribed: 10/02/142118 [employer] Vice President: Signed 02-Oct-2014 Discharge Instruction Result: Comments: See Note; NOTES: [facility] Medical Records Department [address] [place] [address] Discharge Instruction 10/02/142114 MR#: [id number] Acct: [id number] Name: SIMI NIELSEN Rep #: [id number] : 1970 44 From: Gabriel Menard DO PCP: Paty Catalan DO Status: REG ER ED Disposition - Plan for ED Patient: Chief Complaint: Chest Pain Instructions: ED Chest Pain, Uncertain Cause Referrals: Paty Catalan DO [Primary Care Provider] - 3-5 Days What to do if you have Problems For any increased pain, shortness of breath, bleeding, nausea or vomiting, chest pain, or any unexpected problems, contact your doctor. Call [facility] ) or report to the closest Emergency Room. Call 911 if necessary. 10/02/14 2115 < Electronically signed by Gabriel Menard DO> Date Gabriel Menard DO Cosigner Signature (If Indicated): Date CC: Paty Catalan DO 02-Oct-2014 CTA Chest W/WO Contrast Result: Comments: See Note; NOTES: [facility] Imaging Services [address] [place] [address] CAT Scan Report MR#: [id number] Acct: [id number] Name: SIMI NIELSEN Rep #: [id number] : 1970 F 44 From: Stuart Wagner DO PCP: Paty Catlaan DO Status: REG ER Study: CTA Chest W/WO Contrast Date of Exam: 10/02/14 Exam# [id number] Ordering Dr: Gabriel Menard DO STUDY: CTA CH EST REASON FOR EXAM: Female, 44 years old. DVT, chest pain RADIATION DOSAGE (If Supplied By Facility): CTDIvol = ( 17.89 ) mGy, DLP = ( 692.44 ) mGycm TECHNIQUE: The examination was performed wit h the intravenous administration of 100 ml of Isovue 370 contrast material. Post- processing of the angiographic images was performed, with multiplanar reformation and 3D reconstruction. COMPARISON: None. FINDINGS: Normal enhancement of the main pulmonary artery and right and left pulmonary arteries. Normal enhancement of the bilateral peripheral pulmonar y arteries. There is no demonstrated pulmonary embolism. Normal thoracic aorta and visualized great vessels. There is no demonstrated aortic dissection. Normal heart and pericardium. Normal medi astinum. Normal hilar regions. Normal visualized trachea and bronchi. The lungs are well expanded. Normal pulmonary parenchyma. Normal pleura. Normal chest wall structures. Normal osseous stru ctures. Small hiatal hernia. IMPRESSION: No evidence of pulmonary embolism or arterial dissection. Small hiatal hernia. Electronically Signed: Stuart Wagner DO at 20:50 EDT Tel [phone], Service support [phone], CC: Paty Catalan DO; Gabriel Menard DO [employer] Vice President: Signed 23-Mar-2014 EKG ([id number]) Comments: nsr no acute chg Result: [MEASUREMENTS ANALYSIS] Date of Test: 03/23/2014 14:44:22; Heart Rate: 70; HI Interval: 146; QRS: 96; QT Interval: 414; Corrected QT Interval (QTc): 431; P Wave [place]: 41; QRS Wave [place]: -1; T Wave [place]: 22; Blood Pressure: 128/64 [ECG DIAGNOSTIC STATEMENTS] Date of Test: 03/23/2014 14:44:22; Summary: Sinus Rhythm WITHIN NORMAL LIMITS 06-Nov-2013 Emergency Department Summary Result: Comments: See Note; NOTES: [facility] Medical Records Department [address] [place] [address] Emergency Department Summary MR#: [id number] Acct: [id number] Name: SIMI SUTTON Rep #: [id number] : 1970 43 From: Marshall Ricardo MD PCP: Paty Catalan DO Status: [facility] ER DATE OF SERVICE: 10/22/2013 CHIEF COMPLAINT: Right hand laceration. 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 PHYSICAL EXAMINATION: EXTREMITIES: Reveals that a 2-cm laceration which is horizontal, it is on the tip of her second index finger. No nail involvement. EMERGENCY DEPARTMENT COURSE: Sterile conditions, 2 of the 4-0 nylon sutures used. The patient's tetanus will be updated. She will be discharged. IMPRES FLIP: Laceration, hand, 2 cm. Tetanus update. Marshall Ricardo MD T: [facility] JOB: [id number] 11/06/13 0817 <Electronically signed by Marshall Ricardo MD> Date Marshall Ricardo MD CC: Paty Catalan DO Date Dictated: 10/22/13 1134 Date Transcribed: 10/22/131133 [employer] Vice President: Signed 22-Oct-2013 Discharge Instruction Result: Comments: See Note; NOTES: [facility] Medical Records Department [address] [place] [address] Discharge Instruction 10/22/13 1136 MR#: [id number] Acct: [id number] Name: SIMI NIELSEN Rep #: [id number] : 1970 43 From: Marshall Ricardo MD PCP: Paty Catalan DO Status: PRE ER ED Disposition - Plan for ED Patient: Chief Complaint: Laceration Instructions : Laceration, All Referrals: Paty Catalan DO [Primary Care Provider] - 10 Day for suture removal What to do if you have Problems For any increased pain, shortness of breath, bleeding, nausea or vomiting, chest pain, or any unexpected problems, contact your doctor. Call [facility] ) or report to the closest Emergency Room. Call 911 if necessary. 10/22/13 1137 &#[phone];Electronically signed by Marshall Ricardo MD> Date Marshall Ricardo MD CC: Paty Catalan DO 11-Sep-2013 Ribs Unil 2V No CXR Result: Comments: See Note; NOTES: [facility] Imaging Services [address] [place] [address] Radiology Report MR#: [id number] Acct: [id number] Name: SIMI NIELSEN Rep #: [id number] : 1970 F 43 From: Jaxon Adame MD PCP: Paty Catalan DO Status: REG CLI Study: Ribs Unil 2V No CXR Date of Exam: 09/11/13 Exam# [id number] Ordering Dr: Paty Catalan DO S TUDY: X-RAY - UNILATERAL RIBS ( LEFT ) REASON FOR EXAM: Female, 43 years old. Left rib pain following a fall. TECHNIQUE: 3 views of the ribs. COMPARISON: None. FINDINGS: Normal visualized ribs without a demonstrated fracture. The visualized lung is clear and expanded. IMPRESSION: Normal x-ray examination of the ribs . Electronically Signed: Jaxon Adame M.D. at 14:42 EDT , Service support [phone], CC: Paty Catalan DO [employer]: Signed Immunization Name Dates Details Influenza (3 years and up) on: 13-Apr-2007 Comments: lot # [id number] - 10/03 LDLT patient tolerated well Influenza (3 years and up) on: 09-May-2008 Comments: injection given in left deltoid. pt tolerated. see scanned paper Family History Unknown Family Member Name Dates Details First Degree Relatives Comments: Heart/Lung, HBP, Ulcer disease Status: Active Social History Name Dates Details Caffeine Use Comments: 3 QD Status: Active Living Situation Comments: , heterosexual Status: Active Most Recent Primary Occupation Comments: [employer] Status: Active Non Drinker/No Alcohol Use Status: Active Non Smoker/No Tobacco Use Status: Active Tobacco use: Never smoker. Status: Active Smoking Status Name Dates Details Never smoker Vital Signs Date Test Result Details [id number] Temperature 97.5 f Pulse 83 /min Comments: Pattern: Regular Respiration Rate 16 /min Comments: Pattern: Unlabored O2 SAT 96 % Comments: Room air BP Systolic 126 mm[Hg] Comments: Patient Position: Sitting; Cuff Location: Left Arm; Cuff Size: Standard BP Diastolic 68 mm[Hg] Comments: Patient Position: Sitting; Cuff Location: Left Arm; Cuff Size: Standard Weight 236.375 lb Height 64 in Body Mass Index Calculated 40.57 kg/m2 Body Surface Area Calculated 2.1 m2 :43 Temperature 97.2 f Comments: Method: Temporal Pulse 77 /min Comments: Pattern: Regular Respiration Rate 20 /min Comments: Pattern: Unlabored O2 SAT 98 % Comments: Room air BP Systolic 112 mm[Hg] Comments: Patient Position: Sitting; Cuff Location: Left Arm; Cuff Size: Large BP Diastolic 76 mm[Hg] Comments: Patient Position: Sitting; Cuff Location: Left Arm; Cuff Size: Large Weight 236.375 lb Height 64 in Body Mass Index Calculated 40.57 kg/m2 Body Surface Area Calculated 2.1 m2 :43 Pulse 74 /min Comments: Pattern: Regular Respiration Rate 18 /min Comments: Pattern: Unlabored O2 SAT 98 % Comments: Room air BP Systolic 118 mm[Hg] Comments: Patient Position: Sitting; Cuff Location: Left Arm; Cuff Size: Large BP Diastolic 78 mm[Hg] Comments: Patient Position: Sitting; Cuff Location: Left Arm; Cuff Size: Large Weight 228.5 lb Height 64 in Body Mass Index Calculated 39.22 kg/m2 Body Surface Area Calculated 2.07 m2 :11 Temperature 96.9 f Comments: Method: Temporal Pulse 71 /min Comments: Pattern: Regular Respiration Rate 18 /min Comments: Pattern: Unlabored O2 SAT 95 % Comments: Room air BP Systolic 124 mm[Hg] Comments: Patient Position: Sitting; Cuff Location: Left Arm; Cuff Size: Large BP Diastolic 76 mm[Hg] Comments: Patient Position: Sitting; Cuff Location: Left Arm; Cuff Size: Large Weight 231.5 lb Height 64 in Body Mass Index Calculated 39.74 kg/m2 Body Surface Area Calculated 2.08 m2 :25 Temperature 97.9 f Pulse 79 /min Comments: Pattern: Regular Respiration Rate 16 /min Comments: Pattern: Unlabored O2 SAT 97 % Comments: Room air BP Systolic 132 mm[Hg] Comments: Patient Position: Sitting; Cuff Location: Left Arm; Cuff Size: Standard BP Diastolic 82 mm[Hg] Comments: Patient Position: Sitting; Cuff Location: Left Arm; Cuff Size: Standard Weight 231.5 lb Height 64 in Body Mass Index Calculated 39.74 kg/m2 Body Surface Area Calculated 2.08 m2 :54 Pulse 66 /min Comments: Pattern: Regular Respiration Rate 18 /min Comments: Pattern: Unlabored O2 SAT 97 % Comments: Room air BP Systolic 138 mm[Hg] Comments: Patient Position: Sitting; Cuff Location: Left Arm; Cuff Size: Standard BP Diastolic 60 mm[Hg] Comments: Patient Position: Sitting; Cuff Location: Left Arm; Cuff Size: Standard Weight 231.5 lb Height 64 in Body Mass Index Calculated 39.74 kg/m2 Body Surface Area Calculated 2.08 m2 [id number]:04 Temperature 97.4 f Comments: Method: Temporal Pulse 72 /min Comments: Pattern: Regular Respiration Rate 16 /min Comments: Pattern: Unlabored O2 SAT 96 % Comments: Room air BP Systolic 134 mm[Hg] Comments: Patient Position: Sitting; Cuff Location: Left Arm; Cuff Size: Large BP Diastolic 78 mm[Hg] Comments: Patient Position: Sitting; Cuff Location: Left Arm; Cuff Size: Large Weight 240.5 lb Height 64 in Body Mass Index Calculated 41.28 kg/m2 Body Surface Area Calculated 2.12 m2 :52 Temperature 97.8 f Pulse 90 /min Comments: Pattern: Regular Respiration Rate 18 /min Comments: Pattern: Unlabored O2 SAT 97 % Comments: Room air BP Systolic 118 mm[Hg] Comments: Patient Position: Sitting; Cuff Location: Left Arm; Cuff Size: Standard BP Diastolic 70 mm[Hg] Comments: Patient Position: Sitting; Cuff Location: Left Arm; Cuff Size: Standard Weight 240.5 lb Height 64 in Body Mass Index Calculated 41.28 kg/m2 Body Surface Area Calculated 2.12 m2 [id number] Temperature 97.8 f Pulse 84 /min Comments: Pattern: Regular Respiration Rate 17 /min Comments: Pattern: Unlabored O2 SAT 98 % Comments: Room air BP Systolic 132 mm[Hg] Comments: Patient Position: Sitting; Cuff Location: Left Arm; Cuff Size: Standard BP Diastolic 72 mm[Hg] Comments: Patient Position: Sitting; Cuff Location: Left Arm; Cuff Size: Standard Weight 240.5 lb Height 64 in Body Mass Index Calculated 41.28 kg/m2 Body Surface Area Calculated 2.12 m2 :23 Pulse 79 /min Comments: Pattern: Regular Respiration Rate 18 /min Comments: Pattern: Unlabored O2 SAT 93 % Comments: Room air BP Systolic 124 mm[Hg] Comments: Patient Position: Sitting; Cuff Location: Left Arm; Cuff Size: Large BP Diastolic 62 mm[Hg] Comments: Patient Position: Sitting; Cuff Location: Left Arm; Cuff Size: Large Weight 240.5 lb Height 64 in Body Mass Index Calculated 41.28 kg/m2 Body Surface Area Calculated 2.12 m2 :41 Pulse 70 /min Comments: Pattern: Regular Respiration Rate 18 /min Comments: Pattern: Unlabored O2 SAT 97 % Comments: Room air BP Systolic 124 mm[Hg] Comments: Patient Position: Sitting; Cuff Location: Left Arm; Cuff Size: Large BP Diastolic 78 mm[Hg] Comments: Patient Position: Sitting; Cuff Location: Left Arm; Cuff Size: Large Weight 250 lb Height 64 in Body Mass Index Calculated 42.91 kg/m2 Body Surface Area Calculated 2.15 m2 :09 Pulse 79 /min Comments: Pattern: Regular Respiration Rate 16 /min Comments: Pattern: Unlabored O2 SAT 94 % Comments: Room air BP Systolic 122 mm[Hg] Comments: Patient Position: Sitting; Cuff Location: Left Arm; Cuff Size: Standard BP Diastolic 78 mm[Hg] Comments: Patient Position: Sitting; Cuff Location: Left Arm; Cuff Size: Standard Weight 252 lb Height 64 in Body Mass Index Calculated 43.26 kg/m2 Body Surface Area Calculated 2.16 m2 :38 Pulse 86 /min Comments: Pattern: Regular Respiration Rate 18 /min Comments: Pattern: Unlabored O2 SAT 94 % Comments: Room air BP Systolic 122 mm[Hg] Comments: Patient Position: Sitting; Cuff Location: Left Arm; Cuff Size: Standard BP Diastolic 68 mm[Hg] Comments: Patient Position: Sitting; Cuff Location: Left Arm; Cuff Size: Standard Weight 256.25 lb Height 64 in Body Mass Index Calculated 43.98 kg/m2 Body Surface Area Calculated 2.17 m2 :12 Pulse 77 /min Comments: Pattern: Regular Respiration Rate 18 /min Comments: Pattern: Unlabored O2 SAT 95 % Comments: Room air BP Systolic 118 mm[Hg] Comments: Patient Position: Sitting; Cuff Location: Left Arm; Cuff Size: Large BP Diastolic 78 mm[Hg] Comments: Patient Position: Sitting; Cuff Location: Left Arm; Cuff Size: Large Weight 256.25 lb Height 64 in Body Mass Index Calculated 43.98 kg/m2 Body Surface Area Calculated 2.17 m2 :19 Pulse 95 /min Comments: Pattern: Regular Respiration Rate 18 /min Comments: Pattern: Unlabored O2 SAT 95 % Comments: Room air BP Systolic 138 mm[Hg] Comments: Patient Position: Sitting; Cuff Location: Left Arm; Cuff Size: Large BP Diastolic 92 mm[Hg] Comments: Patient Position: Sitting; Cuff Location: Left Arm; Cuff Size: Large Weight 257.8 lb Height 64 in Body Mass Index Calculated 44.25 kg/m2 Body Surface Area Calculated 2.18 m2 :45 Pulse 81 /min Comments: Pattern: Regular Respiration Rate 18 /min Comments: Pattern: Unlabored O2 SAT 96 % Comments: Room air BP Systolic 128 mm[Hg] Comments: Patient Position: Sitting; Cuff Location: Left Arm; Cuff Size: Large BP Diastolic 78 mm[Hg] Comments: Patient Position: Sitting; Cuff Location: Left Arm; Cuff Size: Large Weight 258 lb Height 64 in Body Mass Index Calculated 44.29 kg/m2 Body Surface Area Calculated 2.18 m2 :11 Pulse 87 /min Comments: Pattern: Regular Respiration Rate 18 /min Comments: Pattern: Unlabored O2 SAT 97 % Comments: Room air BP Systolic 126 mm[Hg] Comments: Patient Position: Sitting; Cuff Location: Left Arm; Cuff Size: Large BP Diastolic 62 mm[Hg] Comments: Patient Position: Sitting; Cuff Location: Left Arm; Cuff Size: Large Weight 258 lb Height 64 in Body Mass Index Calculated 44.29 kg/m2 Body Surface Area Calculated 2.18 m2 :01 Pulse 78 /min Comments: Pattern: Regular Respiration Rate 16 /min Comments: Pattern: Unlabored O2 SAT 97 % Comments: Room air BP Systolic 120 mm[Hg] Comments: Patient Position: Sitting; Cuff Location: Left Arm; Cuff Size: Standard BP Diastolic 70 mm[Hg] Comments: Patient Position: Sitting; Cuff Location: Left Arm; Cuff Size: Standard Weight 264.5 lb Height 64 in Body Mass Index Calculated 45.4 kg/m2 Body Surface Area Calculated 2.2 m2 :21 Temperature 97.6 f Comments: Method: Temporal Pulse 65 /min Comments: Pattern: Regular Respiration Rate 16 /min Comments: Pattern: Unlabored O2 SAT 97 % Comments: Room air BP Systolic 115 mm[Hg] Comments: Patient Position: Sitting; Cuff Location: Left Arm; Cuff Size: Standard BP Diastolic 70 mm[Hg] Comments: Patient Position: Sitting; Cuff Location: Left Arm; Cuff Size: Standard Weight 267.5 lb Height 64 in Body Mass Index Calculated 45.92 kg/m2 Body Surface Area Calculated 2.21 m2 :16 Pulse 91 /min Comments: Pattern: Regular Respiration Rate 18 /min Comments: Pattern: Unlabored O2 SAT 94 % Comments: Room air BP Systolic 118 mm[Hg] Comments: Patient Position: Sitting; Cuff Location: Left Arm; Cuff Size: Large BP Diastolic 78 mm[Hg] Comments: Patient Position: Sitting; Cuff Location: Left Arm; Cuff Size: Large Weight 270.5 lb Height 64 in Body Mass Index Calculated 46.43 kg/m2 Body Surface Area Calculated 2.22 m2 :10 Pulse 79 /min Comments: Pattern: Regular Respiration Rate 18 /min Comments: Pattern: Unlabored O2 SAT 96 % Comments: Room air BP Systolic 128 mm[Hg] Comments: Patient Position: Sitting; Cuff Location: Left Arm; Cuff Size: Large BP Diastolic 84 mm[Hg] Comments: Patient Position: Sitting; Cuff Location: Left Arm; Cuff Size: Large Weight 281 lb Height 64 in Body Mass Index Calculated 48.23 kg/m2 Body Surface Area Calculated 2.26 m2 :25 Pulse 91 /min Comments: Pattern: Regular Respiration Rate 16 /min Comments: Pattern: Unlabored O2 SAT 96 % Comments: 2L O2 BP Systolic 120 mm[Hg] Comments: Patient Position: Sitting; Cuff Location: Left Arm; Cuff Size: Standard BP Diastolic 72 mm[Hg] Comments: Patient Position: Sitting; Cuff Location: Left Arm; Cuff Size: Standard Weight 290.125 lb Height 64 in Body Mass Index Calculated 49.8 kg/m2 Body Surface Area Calculated 2.29 m2 :29 Pulse 96 /min Comments: Pattern: Regular Respiration Rate 18 /min Comments: Pattern: Unlabored O2 SAT 98 % Comments: Room air BP Systolic 126 mm[Hg] Comments: Patient Position: Sitting; Cuff Location: Left Arm; Cuff Size: Large BP Diastolic 64 mm[Hg] Comments: Patient Position: Sitting; Cuff Location: Left Arm; Cuff Size: Large Weight 290.125 lb Height 64 in Body Mass Index Calculated 49.8 kg/m2 Body Surface Area Calculated 2.29 m2 :02 Pulse 89 /min Comments: Pattern: Regular Respiration Rate 18 /min Comments: Pattern: Unlabored O2 SAT 96 % Comments: 3L O2 BP Systolic 116 mm[Hg] Comments: Patient Position: Sitting; Cuff Location: Left Arm; Cuff Size: Large BP Diastolic 62 mm[Hg] Comments: Patient Position: Sitting; Cuff Location: Left Arm; Cuff Size: Large Weight 295.5 lb Height 64 in Body Mass Index Calculated 50.72 kg/m2 Body Surface Area Calculated 2.31 m2 :35 Pulse 77 /min Comments: Pattern: Regular Respiration Rate 20 /min Comments: Pattern: Unlabored O2 SAT 98 % Comments: 3L O2 BP Systolic 122 mm[Hg] Comments: Patient Position: Sitting; Cuff Location: Left Arm; Cuff Size: Large BP Diastolic 78 mm[Hg] Comments: Patient Position: Sitting; Cuff Location: Left Arm; Cuff Size: Large Weight 295.5 lb Height 64 in Body Mass Index Calculated 50.72 kg/m2 Body Surface Area Calculated 2.31 m2 :14 Pulse 86 /min Comments: Pattern: Regular Respiration Rate 20 /min Comments: Pattern: Labored O2 SAT 96 % Comments: 3L O2 BP Systolic 122 mm[Hg] Comments: Patient Position: Sitting; Cuff Location: Left Arm; Cuff Size: Large BP Diastolic 80 mm[Hg] Comments: Patient Position: Sitting; Cuff Location: Left Arm; Cuff Size: Large Weight 295.5 lb Height 64 in Body Mass Index Calculated 50.72 kg/m2 Body Surface Area Calculated 2.31 m2 :57 Pulse 97 /min Comments: Pattern: Regular Respiration Rate 18 /min Comments: Pattern: Unlabored O2 SAT 97 % Comments: 3L O2 BP Systolic 132 mm[Hg] Comments: Patient Position: Sitting; Cuff Location: Left Arm; Cuff Size: Large BP Diastolic 80 mm[Hg] Comments: Patient Position: Sitting; Cuff Location: Left Arm; Cuff Size: Large Weight 295.5 lb Height 64 in Body Mass Index Calculated 50.72 kg/m2 Body Surface Area Calculated 2.31 m2 :13 Temperature 97.8 f Comments: Method: Tympanic Pulse 91 /min Comments: Pattern: Regular Respiration Rate 18 /min Comments: Pattern: Unlabored O2 SAT 94 % Comments: Room air BP Systolic 126 mm[Hg] Comments: Patient Position: Sitting; Cuff Location: Left Arm; Cuff Size: Standard BP Diastolic 84 mm[Hg] Comments: Patient Position: Sitting; Cuff Location: Left Arm; Cuff Size: Standard Weight 298 lb Height 64 in Body Mass Index Calculated 51.15 kg/m2 Body Surface Area Calculated 2.32 m2 :17 Pulse 96 /min Comments: Pattern: Regular Respiration Rate 18 /min Comments: Pattern: Unlabored O2 SAT 95 % Comments: Room air BP Systolic 120 mm[Hg] Comments: Patient Position: Sitting; Cuff Location: Left Arm; Cuff Size: Large BP Diastolic 82 mm[Hg] Comments: Patient Position: Sitting; Cuff Location: Left Arm; Cuff Size: Large Weight 305 lb Height 64 in Body Mass Index Calculated 52.35 kg/m2 Body Surface Area Calculated 2.34 m2 :29 Temperature 99 f Comments: Method: Tympanic Pulse 99 /min Comments: Pattern: Regular Respiration Rate 18 /min Comments: Pattern: Unlabored O2 SAT 98 % Comments: Room air BP Systolic 108 mm[Hg] Comments: Patient Position: Sitting; Cuff Location: Left Arm; Cuff Size: Standard BP Diastolic 62 mm[Hg] Comments: Patient Position: Sitting; Cuff Location: Left Arm; Cuff Size: Standard Weight 305 lb Height 64 in Body Mass Index Calculated 52.35 kg/m2 Body Surface Area Calculated 2.34 m2 :10 Temperature 97.7 f Comments: Method: Temporal Pulse 88 /min Comments: Pattern: Regular Respiration Rate 16 /min Comments: Pattern: Unlabored BP Systolic 122 mm[Hg] Comments: Patient Position: Sitting; Cuff Location: Left Arm; Cuff Size: Standard BP Diastolic 70 mm[Hg] Comments: Patient Position: Sitting; Cuff Location: Left Arm; Cuff Size: Standard Weight 305 lb Height 64 in Body Mass Index Calculated 52.35 kg/m2 Body Surface Area Calculated 2.34 m2 :06 Temperature 98.2 f Comments: Method: Temporal Pulse 72 /min Comments: Pattern: Regular Respiration Rate 16 /min Comments: Pattern: Unlabored O2 SAT 97 % Comments: Room air BP Systolic 130 mm[Hg] Comments: Patient Position: Sitting; Cuff Location: Left Arm; Cuff Size: Standard BP Diastolic 84 mm[Hg] Comments: Patient Position: Sitting; Cuff Location: Left Arm; Cuff Size: Standard Weight 302 lb Height 64 in Body Mass Index Calculated 51.84 kg/m2 Body Surface Area Calculated 2.33 m2 :48 Temperature 98.2 f Comments: Method: Temporal Pulse 84 /min Comments: Pattern: Regular Respiration Rate 18 /min Comments: Pattern: Unlabored O2 SAT 92 % Comments: Room air BP Systolic 136 mm[Hg] Comments: Patient Position: Sitting; Cuff Location: Left Arm; Cuff Size: Large BP Diastolic 84 mm[Hg] Comments: Patient Position: Sitting; Cuff Location: Left Arm; Cuff Size: Large Weight 305 lb Height 64 in Body Mass Index Calculated 52.35 kg/m2 Body Surface Area Calculated 2.34 m2 :38 Pulse 85 /min Comments: Pattern: Regular Respiration Rate 18 /min Comments: Pattern: Unlabored O2 SAT 95 % Comments: Room air BP Systolic 118 mm[Hg] Comments: Patient Position: Sitting; Cuff Location: Left Arm; Cuff Size: Large BP Diastolic 72 mm[Hg] Comments: Patient Position: Sitting; Cuff Location: Left Arm; Cuff Size: Large Weight 304.125 lb Height 64 in Body Mass Index Calculated 52.2 kg/m2 Body Surface Area Calculated 2.34 m2 :15 Pulse 92 /min Comments: Pattern: Regular Respiration Rate 18 /min Comments: Pattern: Unlabored O2 SAT 94 % Comments: Room air BP Systolic 128 mm[Hg] Comments: Patient Position: Sitting; Cuff Location: Left Arm; Cuff Size: Large BP Diastolic 82 mm[Hg] Comments: Patient Position: Sitting; Cuff Location: Left Arm; Cuff Size: Large Weight 299 lb Height 64 in Body Mass Index Calculated 51.32 kg/m2 Body Surface Area Calculated 2.32 m2 :35 Pulse 89 /min Comments: Pattern: Regular Respiration Rate 18 /min Comments: Pattern: Unlabored O2 SAT 95 % Comments: Room air BP Systolic 128 mm[Hg] Comments: Patient Position: Sitting; Cuff Location: Left Arm; Cuff Size: Large BP Diastolic 84 mm[Hg] Comments: Patient Position: Sitting; Cuff Location: Left Arm; Cuff Size: Large Weight 298.375 lb Height 64 in Body Mass Index Calculated 51.22 kg/m2 Body Surface Area Calculated 2.32 m2 :23 Temperature 98.7 f Pulse 93 /min Comments: Pattern: Regular Respiration Rate 20 /min Comments: Pattern: Labored O2 SAT 95 % Comments: Room air BP Systolic 122 mm[Hg] Comments: Patient Position: Sitting; Cuff Location: Left Arm; Cuff Size: Standard BP Diastolic 82 mm[Hg] Comments: Patient Position: Sitting; Cuff Location: Left Arm; Cuff Size: Standard Weight 304 lb Height 64 in Body Mass Index Calculated 52.18 kg/m2 Body Surface Area Calculated 2.34 m2 :16 Temperature 97.4 f Comments: Method: Temporal Pulse 17 /min Comments: Pattern: Regular Respiration Rate 17 /min Comments: Pattern: Unlabored O2 SAT 94 % Comments: Room air BP Systolic 130 mm[Hg] Comments: Patient Position: Sitting; Cuff Location: Left Arm; Cuff Size: Standard BP Diastolic 84 mm[Hg] Comments: Patient Position: Sitting; Cuff Location: Left Arm; Cuff Size: Standard Weight 304 lb Height 64 in Body Mass Index Calculated 52.18 kg/m2 Body Surface Area Calculated 2.34 m2 :01 Pulse 69 /min Comments: Pattern: Regular Respiration Rate 18 /min Comments: Pattern: Unlabored O2 SAT 96 % Comments: Room air BP Systolic 128 mm[Hg] Comments: Patient Position: Sitting; Cuff Location: Left Arm; Cuff Size: Large BP Diastolic 82 mm[Hg] Comments: Patient Position: Sitting; Cuff Location: Left Arm; Cuff Size: Large Weight 304 lb Height 64 in Body Mass Index Calculated 52.18 kg/m2 Body Surface Area Calculated 2.34 m2 :08 Comments: up 40 pounds since seen last Temperature 96.8 f Comments: Method: Temporal Pulse 96 /min Comments: Pattern: Regular Respiration Rate 16 /min Comments: Pattern: Unlabored O2 SAT 96 % Comments: Room air BP Systolic 128 mm[Hg] Comments: Patient Position: Sitting; Cuff Location: Left Arm; Cuff Size: Standard BP Diastolic 66 mm[Hg] Comments: Patient Position: Sitting; Cuff Location: Left Arm; Cuff Size: Standard Weight 303.5 lb Height 64 in Body Mass Index Calculated 52.1 kg/m2 Body Surface Area Calculated 2.34 m2 :01 Temperature 98.1 f Pulse 100 /min Comments: Pattern: Regular Respiration Rate 20 /min Comments: Pattern: Unlabored O2 SAT 95 % Comments: Room air BP Systolic 116 mm[Hg] Comments: Patient Position: Sitting; Cuff Location: Left Arm; Cuff Size: Standard BP Diastolic 78 mm[Hg] Comments: Patient Position: Sitting; Cuff Location: Left Arm; Cuff Size: Standard Weight 263.5 lb Height 64 in Body Mass Index Calculated 45.23 kg/m2 Body Surface Area Calculated 2.2 m2 [id number]:28 Temperature 97.6 f Pulse 88 /min Comments: Pattern: Regular Respiration Rate 18 /min Comments: Pattern: Unlabored O2 SAT 96 % Comments: Room air BP Systolic 118 mm[Hg] Comments: Patient Position: Sitting; Cuff Location: Left Arm; Cuff Size: Standard BP Diastolic 78 mm[Hg] Comments: Patient Position: Sitting; Cuff Location: Left Arm; Cuff Size: Standard Weight 263.5 lb Height 64 in Body Mass Index Calculated 45.23 kg/m2 Body Surface Area Calculated 2.2 m2 [id number]:18 Pulse 75 /min Comments: Pattern: Regular Respiration Rate 20 /min Comments: Pattern: Unlabored O2 SAT 95 % Comments: Room air BP Systolic 124 mm[Hg] Comments: Patient Position: Sitting; Cuff Location: Left Arm; Cuff Size: Large BP Diastolic 78 mm[Hg] Comments: Patient Position: Sitting; Cuff Location: Left Arm; Cuff Size: Large Weight 263.5 lb Height 64 in Body Mass Index Calculated 45.23 kg/m2 Body Surface Area Calculated 2.2 m2 :36 Pulse 72 /min Comments: Pattern: Regular Respiration Rate 20 /min Comments: Pattern: Unlabored O2 SAT 95 % Comments: Room air BP Systolic 118 mm[Hg] Comments: Patient Position: Sitting; Cuff Location: Left Arm; Cuff Size: Large BP Diastolic 70 mm[Hg] Comments: Patient Position: Sitting; Cuff Location: Left Arm; Cuff Size: Large Weight 266.5 lb Height 64 in Body Mass Index Calculated 45.74 kg/m2 Body Surface Area Calculated 2.21 m2 [id number]:00 Pulse 98 /min Comments: Pattern: Regular Respiration Rate 18 /min Comments: Pattern: Unlabored O2 SAT 94 % Comments: Room air BP Systolic 122 mm[Hg] Comments: Patient Position: Sitting; Cuff Location: Left Arm; Cuff Size: Large BP Diastolic 80 mm[Hg] Comments: Patient Position: Sitting; Cuff Location: Left Arm; Cuff Size: Large Weight 254.5 lb Height 64 in Body Mass Index Calculated 43.68 kg/m2 Body Surface Area Calculated 2.17 m2 :29 Temperature 98.2 f Comments: Method: Temporal Pulse 76 /min Comments: Pattern: Regular Respiration Rate 16 /min Comments: Pattern: Unlabored O2 SAT 97 % Comments: Room air BP Systolic 124 mm[Hg] Comments: Patient Position: Sitting; Cuff Location: Left Arm; Cuff Size: Standard BP Diastolic 74 mm[Hg] Comments: Patient Position: Sitting; Cuff Location: Left Arm; Cuff Size: Standard Weight 263 lb Height 64 in Body Mass Index Calculated 45.14 kg/m2 Body Surface Area Calculated 2.2 m2 :00 Temperature 97.8 f Comments: Method: Temporal Pulse 78 /min Comments: Pattern: Regular Respiration Rate 19 /min Comments: Pattern: Unlabored O2 SAT 98 % Comments: Room air BP Systolic 138 mm[Hg] BP Diastolic 80 mm[Hg] Weight 262.0625 lb Height 64 in Body Mass Index Calculated 44.98 kg/m2 Body Surface Area Calculated 2.19 m2 :29 Pulse 64 /min Comments: Pattern: Regular Respiration Rate 18 /min Comments: Pattern: Unlabored O2 SAT 98 % Comments: Room air BP Systolic 128 mm[Hg] Comments: Patient Position: Sitting; Cuff Location: Left Arm; Cuff Size: Large BP Diastolic 64 mm[Hg] Comments: Patient Position: Sitting; Cuff Location: Left Arm; Cuff Size: Large Weight 262.0625 lb Height 64 in Body Mass Index Calculated 44.98 kg/m2 Body Surface Area Calculated 2.19 m2 :52 Temperature 98.1 f Comments: Method: Oral Pulse 80 /min Comments: Pattern: Regular Respiration Rate 18 /min Comments: Pattern: Unlabored O2 SAT 96 % Comments: Room air BP Systolic 116 mm[Hg] Comments: Patient Position: Sitting; Cuff Location: Left Arm; Cuff Size: Standard BP Diastolic 72 mm[Hg] Comments: Patient Position: Sitting; Cuff Location: Left Arm; Cuff Size: Standard Weight 261.125 lb Height 64 in Body Mass Index Calculated 44.82 kg/m2 Body Surface Area Calculated 2.19 m2 :47 Temperature 96.9 f Comments: Method: Oral Pulse 70 /min Comments: Pattern: Regular Respiration Rate 18 /min Comments: Pattern: Unlabored O2 SAT 97 % Comments: Room air BP Systolic 120 mm[Hg] Comments: Patient Position: Sitting; Cuff Location: Left Arm; Cuff Size: Standard BP Diastolic 70 mm[Hg] Comments: Patient Position: Sitting; Cuff Location: Left Arm; Cuff Size: Standard Weight 246.125 lb Height 64 in Body Mass Index Calculated 42.25 kg/m2 Body Surface Area Calculated 2.14 m2 :51 Temperature 98.2 f Comments: Method: Temporal Pulse 68 /min Comments: Pattern: Regular Respiration Rate 16 /min Comments: Pattern: Unlabored O2 SAT 97 % Comments: Room air BP Systolic 114 mm[Hg] Comments: Patient Position: Sitting; Cuff Location: Left Arm; Cuff Size: Standard BP Diastolic 72 mm[Hg] Comments: Patient Position: Sitting; Cuff Location: Left Arm; Cuff Size: Standard Weight 221.5 lb Height 64 in Body Mass Index Calculated 38.02 kg/m2 Body Surface Area Calculated 2.04 m2 :55 Temperature 98.3 f Comments: Method: Oral Pulse 92 /min Comments: Pattern: Regular Respiration Rate 16 /min O2 SAT 96 % Comments: Room air BP Systolic 110 mm[Hg] Comments: Patient Position: Sitting; Cuff Location: Left Arm; Cuff Size: Standard BP Diastolic 70 mm[Hg] Comments: Patient Position: Sitting; Cuff Location: Left Arm; Cuff Size: Standard Weight 221.5 lb Height 64 in Body Mass Index Calculated 38.02 kg/m2 Body Surface Area Calculated 2.04 m2 :37 Temperature 98 f Comments: Method: Oral Pulse 80 /min Comments: Pattern: Regular Respiration Rate 18 /min Comments: Pattern: Unlabored BP Systolic 102 mm[Hg] Comments: Patient Position: Sitting; Cuff Location: Left Arm; Cuff Size: Standard BP Diastolic 64 mm[Hg] Comments: Patient Position: Sitting; Cuff Location: Left Arm; Cuff Size: Standard Weight 221.5 lb Height 64 in Body Mass Index Calculated 38.02 kg/m2 Body Surface Area Calculated 2.04 m2 :51 Temperature 97.9 f Comments: Method: Oral Pulse 60 /min Comments: Pattern: Regular Respiration Rate 20 /min Comments: Pattern: Unlabored BP Systolic 102 mm[Hg] Comments: Patient Position: Sitting; Cuff Location: Left Arm; Cuff Size: Large BP Diastolic 78 mm[Hg] Comments: Patient Position: Sitting; Cuff Location: Left Arm; Cuff Size: Large Weight 221.5 lb Height 64 in Body Mass Index Calculated 38.02 kg/m2 Body Surface Area Calculated 2.04 m2 :17 Pulse 64 /min Comments: Pattern: Regular Respiration Rate 20 /min Comments: Pattern: Unlabored BP Systolic 110 mm[Hg] Comments: Patient Position: Sitting; Cuff Location: Left Arm; Cuff Size: Large BP Diastolic 62 mm[Hg] Comments: Patient Position: Sitting; Cuff Location: Left Arm; Cuff Size: Large Weight 217.3125 lb Height 64 in Body Mass Index Calculated 37.3 kg/m2 Body Surface Area Calculated 2.03 m2 :11 Temperature 97.6 f Comments: Method: Oral Pulse 56 /min Comments: Pattern: Regular Respiration Rate 16 /min Comments: Pattern: Unlabored BP Systolic 104 mm[Hg] Comments: Patient Position: Sitting; Cuff Location: Left Arm; Cuff Size: Standard BP Diastolic 64 mm[Hg] Comments: Patient Position: Sitting; Cuff Location: Left Arm; Cuff Size: Standard Weight 217.4375 lb Height 64 in Body Mass Index Calculated 37.32 kg/m2 Body Surface Area Calculated 2.03 m2 :13 Temperature 97.5 f Comments: Method: Oral Pulse 60 /min Comments: Pattern: Regular Respiration Rate 20 /min Comments: Pattern: Unlabored BP Systolic 118 mm[Hg] Comments: Patient Position: Sitting; Cuff Location: Left Arm; Cuff Size: Large BP Diastolic 62 mm[Hg] Comments: Patient Position: Sitting; Cuff Location: Left Arm; Cuff Size: Large Weight 216.4375 lb Height 64 in Body Mass Index Calculated 37.15 kg/m2 Body Surface Area Calculated 2.02 m2 :02 Pulse 64 /min Comments: Pattern: Regular Respiration Rate 20 /min Comments: Pattern: Unlabored BP Systolic 118 mm[Hg] Comments: Patient Position: Sitting; Cuff Location: Left Arm; Cuff Size: Large BP Diastolic 62 mm[Hg] Comments: Patient Position: Sitting; Cuff Location: Left Arm; Cuff Size: Large Weight 216.125 lb Height 64 in Body Mass Index Calculated 37.1 kg/m2 Body Surface Area Calculated 2.02 m2 :34 Temperature 98.2 f Comments: Method: Oral Pulse 84 /min Comments: Pattern: Regular Respiration Rate 17 /min O2 SAT 98 % Comments: Room air BP Systolic 112 mm[Hg] Comments: Patient Position: Sitting; Cuff Location: Left Arm; Cuff Size: Standard BP Diastolic 70 mm[Hg] Comments: Patient Position: Sitting; Cuff Location: Left Arm; Cuff Size: Standard Weight 234 lb Height 64 in Body Mass Index Calculated 40.17 kg/m2 Body Surface Area Calculated 2.09 m2 :48 Temperature 98.4 f Comments: Method: Oral Pulse 70 /min Comments: Pattern: Regular Respiration Rate 20 /min O2 SAT 98 % Comments: Room air BP Systolic 122 mm[Hg] Comments: Patient Position: Sitting; Cuff Location: Left Arm; Cuff Size: Standard BP Diastolic 74 mm[Hg] Comments: Patient Position: Sitting; Cuff Location: Left Arm; Cuff Size: Standard Weight 234 lb Height 64 in Body Mass Index Calculated 40.17 kg/m2 Body Surface Area Calculated 2.09 m2 :59 Temperature 98.5 f Comments: Method: Oral Pulse 72 /min Comments: Pattern: Regular Respiration Rate 18 /min O2 SAT 98 % Comments: Room air BP Systolic 118 mm[Hg] Comments: Patient Position: Sitting; Cuff Location: Left Arm; Cuff Size: Standard BP Diastolic 74 mm[Hg] Comments: Patient Position: Sitting; Cuff Location: Left Arm; Cuff Size: Standard Weight 234 lb Height 64 in Body Mass Index Calculated 40.17 kg/m2 Body Surface Area Calculated 2.09 m2 :18 Temperature 98.2 f Comments: Method: Oral Pulse 72 /min Comments: Pattern: Regular Respiration Rate 18 /min Comments: Pattern: Unlabored BP Systolic 124 mm[Hg] Comments: Patient Position: Sitting; Cuff Location: Left Arm; Cuff Size: Standard BP Diastolic 78 mm[Hg] Comments: Patient Position: Sitting; Cuff Location: Left Arm; Cuff Size: Standard Weight 234 lb Height 64 in Body Mass Index Calculated 40.17 kg/m2 Body Surface Area Calculated 2.09 m2 :07 Pulse 80 /min Comments: Pattern: Regular Respiration Rate 20 /min Comments: Pattern: Unlabored BP Systolic 124 mm[Hg] Comments: Patient Position: Sitting; Cuff Location: Left Arm; Cuff Size: Large BP Diastolic 78 mm[Hg] Comments: Patient Position: Sitting; Cuff Location: Left Arm; Cuff Size: Large Weight 234.25 lb Height 64 in Body Mass Index Calculated 40.21 kg/m2 Body Surface Area Calculated 2.09 m2 :43 Temperature 98 f Comments: Method: Oral Pulse 64 /min Comments: Pattern: Regular Respiration Rate 20 /min Comments: Pattern: Unlabored BP Systolic 120 mm[Hg] Comments: Patient Position: Sitting; Cuff Location: Left Arm; Cuff Size: Large BP Diastolic 78 mm[Hg] Comments: Patient Position: Sitting; Cuff Location: Left Arm; Cuff Size: Large Weight 234.25 lb Height 64 in Body Mass Index Calculated 40.21 kg/m2 Body Surface Area Calculated 2.09 m2 :37 Temperature 98.2 f Comments: Method: Oral Pulse 70 /min Comments: Pattern: Regular Respiration Rate 20 /min Comments: Pattern: Unlabored BP Systolic 120 mm[Hg] Comments: Patient Position: Sitting; Cuff Location: Left Arm; Cuff Size: Large BP Diastolic 76 mm[Hg] Comments: Patient Position: Sitting; Cuff Location: Left Arm; Cuff Size: Large Weight 240 lb Height 64 in Body Mass Index Calculated 41.2 kg/m2 Body Surface Area Calculated 2.11 m2 :54 Temperature 97.8 f Comments: Method: Oral Pulse 72 /min Comments: Pattern: Regular Respiration Rate 18 /min Comments: Pattern: Unlabored O2 SAT 94 % Comments: Room air BP Systolic 126 mm[Hg] Comments: Patient Position: Sitting; Cuff Location: Left Arm; Cuff Size: Standard BP Diastolic 74 mm[Hg] Comments: Patient Position: Sitting; Cuff Location: Left Arm; Cuff Size: Standard Weight 272.125 lb Height 64 in Body Mass Index Calculated 46.71 kg/m2 Body Surface Area Calculated 2.23 m2 :17 Pulse 62 /min Comments: Pattern: Regular Respiration Rate 16 /min Comments: Pattern: Unlabored Weight 272.125 lb Height 64 in Body Mass Index Calculated 46.71 kg/m2 Body Surface Area Calculated 2.23 m2 :35 Temperature 96.7 f Comments: Method: Oral Pulse 60 /min Comments: Pattern: Regular Respiration Rate 20 /min Comments: Pattern: Unlabored BP Systolic 124 mm[Hg] Comments: Patient Position: Sitting; Cuff Location: Left Arm; Cuff Size: Large BP Diastolic 82 mm[Hg] Comments: Patient Position: Sitting; Cuff Location: Left Arm; Cuff Size: Large Weight 272.125 lb Height 64 in Body Mass Index Calculated 46.71 kg/m2 Body Surface Area Calculated 2.23 m2 :42 Temperature 97.7 f Comments: Method: Oral Pulse 90 /min Comments: Pattern: Regular Respiration Rate 20 /min Comments: Pattern: Unlabored O2 SAT 90 % Comments: Room air BP Systolic 138 mm[Hg] Comments: Patient Position: Sitting; Cuff Location: Left Arm; Cuff Size: Standard BP Diastolic 72 mm[Hg] Comments: Patient Position: Sitting; Cuff Location: Left Arm; Cuff Size: Standard Weight 274.125 lb Height 64 in Body Mass Index Calculated 47.05 kg/m2 Body Surface Area Calculated 2.24 m2 :18 Temperature 97 f Comments: Method: Oral Pulse 86 /min Comments: Pattern: Regular Respiration Rate 20 /min Comments: Pattern: Unlabored O2 SAT 92 % Comments: Room air BP Systolic 132 mm[Hg] Comments: Patient Position: Sitting; Cuff Location: Left Arm; Cuff Size: Standard BP Diastolic 78 mm[Hg] Comments: Patient Position: Sitting; Cuff Location: Left Arm; Cuff Size: Standard Weight 274.125 lb Height 64 in Body Mass Index Calculated 47.05 kg/m2 Body Surface Area Calculated 2.24 m2 :59 Pulse 80 /min Comments: Pattern: Regular Respiration Rate 20 /min Comments: Pattern: Unlabored BP Systolic 122 mm[Hg] Comments: Patient Position: Sitting; Cuff Location: Left Arm; Cuff Size: Large BP Diastolic 68 mm[Hg] Comments: Patient Position: Sitting; Cuff Location: Left Arm; Cuff Size: Large Weight 274 lb Height 64 in Body Mass Index Calculated 47.03 kg/m2 Body Surface Area Calculated 2.24 m2 :38 Pulse 68 /min Comments: Pattern: Regular Respiration Rate 20 /min Comments: Pattern: Unlabored BP Systolic 122 mm[Hg] Comments: Patient Position: Sitting; Cuff Location: Left Arm; Cuff Size: Large BP Diastolic 78 mm[Hg] Comments: Patient Position: Sitting; Cuff Location: Left Arm; Cuff Size: Large Weight 278.5 lb Height 64 in Body Mass Index Calculated 47.8 kg/m2 Body Surface Area Calculated 2.25 m2 :57 Temperature 97.2 f Comments: Method: Oral Pulse 66 /min Comments: Pattern: Regular Respiration Rate 16 /min Comments: Pattern: Unlabored BP Systolic 130 mm[Hg] Comments: Patient Position: Sitting; Cuff Location: Left Arm; Cuff Size: Standard BP Diastolic 70 mm[Hg] Comments: Patient Position: Sitting; Cuff Location: Left Arm; Cuff Size: Standard Weight 283.2 lb :11 Temperature 97.9 f Comments: Method: Oral Pulse 92 /min Comments: Pattern: Regular Respiration Rate 16 /min Comments: Pattern: Unlabored O2 SAT 90 % Comments: Room air BP Systolic 122 mm[Hg] Comments: Patient Position: Sitting; Cuff Location: Left Arm; Cuff Size: Standard BP Diastolic 74 mm[Hg] Comments: Patient Position: Sitting; Cuff Location: Left Arm; Cuff Size: Standard :33 Pulse 74 /min Comments: Pattern: Regular Respiration Rate 22 /min Comments: Pattern: Unlabored BP Systolic 118 mm[Hg] Comments: Patient Position: Sitting; Cuff Location: Right Arm; Cuff Size: Standard BP Diastolic 82 mm[Hg] Comments: Patient Position: Sitting; Cuff Location: Right Arm; Cuff Size: Standard Weight 283.125 lb :21 Pulse 72 /min Comments: Pattern: Regular Respiration Rate 20 /min Comments: Pattern: Unlabored BP Systolic 128 mm[Hg] Comments: Patient Position: Sitting; Cuff Location: Left Arm; Cuff Size: Large BP Diastolic 64 mm[Hg] Comments: Patient Position: Sitting; Cuff Location: Left Arm; Cuff Size: Large Weight 285 lb :25 Pulse 68 /min Comments: Pattern: Regular Respiration Rate 20 /min Comments: Pattern: Unlabored BP Systolic 122 mm[Hg] Comments: Patient Position: Sitting; Cuff Location: Left Arm; Cuff Size: Large BP Diastolic 68 mm[Hg] Comments: Patient Position: Sitting; Cuff Location: Left Arm; Cuff Size: Large Weight 285 lb :04 Temperature 98 f Pulse 84 /min Comments: Pattern: Regular Respiration Rate 24 /min Comments: Pattern: Unlabored O2 SAT 89 % Comments: Room air BP Systolic 106 mm[Hg] Comments: Patient Position: Sitting; Cuff Location: Left Arm; Cuff Size: Standard BP Diastolic 72 mm[Hg] Comments: Patient Position: Sitting; Cuff Location: Left Arm; Cuff Size: Standard :09 Temperature 96.3 f Comments: Method: Oral Pulse 60 /min Comments: Pattern: Regular Respiration Rate 20 /min Comments: Pattern: Unlabored O2 SAT 90 % Comments: Room air BP Systolic 128 mm[Hg] Comments: Patient Position: Sitting; Cuff Location: Left Arm; Cuff Size: Large BP Diastolic 64 mm[Hg] Comments: Patient Position: Sitting; Cuff Location: Left Arm; Cuff Size: Large Weight 285 lb :57 Pulse 68 /min Comments: Pattern: Regular Respiration Rate 20 /min Comments: Pattern: Unlabored BP Systolic 118 mm[Hg] Comments: Patient Position: Sitting; Cuff Location: Left Arm; Cuff Size: Large BP Diastolic 78 mm[Hg] Comments: Patient Position: Sitting; Cuff Location: Left Arm; Cuff Size: Large Weight 285 lb :47 Pulse 60 /min Comments: Pattern: Regular Respiration Rate 20 /min Comments: Pattern: Unlabored BP Systolic 118 mm[Hg] Comments: Patient Position: Sitting; Cuff Location: Left Arm; Cuff Size: Large BP Diastolic 78 mm[Hg] Comments: Patient Position: Sitting; Cuff Location: Left Arm; Cuff Size: Large Weight 285 lb :38 Temperature 97.4 f Pulse 74 /min Comments: Pattern: Regular Respiration Rate 18 /min Comments: Pattern: Unlabored O2 SAT 94 % Comments: Room air BP Systolic 104 mm[Hg] Comments: Patient Position: Sitting; Cuff Location: Left Arm; Cuff Size: Large BP Diastolic 72 mm[Hg] Comments: Patient Position: Sitting; Cuff Location: Left Arm; Cuff Size: Large :44 Pulse 76 /min Comments: Pattern: Regular Respiration Rate 20 /min Comments: Pattern: Unlabored BP Systolic 124 mm[Hg] Comments: Patient Position: Sitting; Cuff Location: Left Arm; Cuff Size: Large BP Diastolic 78 mm[Hg] Comments: Patient Position: Sitting; Cuff Location: Left Arm; Cuff Size: Large Weight 274.1875 lb Height 0 in Head Circumference 0.00 cm :22 Pulse 76 /min Comments: Pattern: Regular Respiration Rate 18 /min Comments: Pattern: Unlabored BP Systolic 118 mm[Hg] Comments: Patient Position: Sitting; Cuff Location: Left Arm; Cuff Size: Large BP Diastolic 68 mm[Hg] Comments: Patient Position: Sitting; Cuff Location: Left Arm; Cuff Size: Large Weight 274.1875 lb Height 0 in Head Circumference 0.00 cm :43 Temperature 97.2 f Comments: Method: Oral Pulse 84 /min Comments: Pattern: Regular Respiration Rate 16 /min Comments: Pattern: Unlabored Weight 271.0625 lb Height 0 in Head Circumference 0.00 cm :01 Pulse 80 /min Comments: Pattern: Regular Respiration Rate 18 /min Comments: Pattern: Unlabored BP Systolic 110 mm[Hg] Comments: Patient Position: Sitting; Cuff Location: Left Arm; Cuff Size: Large BP Diastolic 62 mm[Hg] Comments: Patient Position: Sitting; Cuff Location: Left Arm; Cuff Size: Large Weight 0 lb Height 0 in Head Circumference 0.00 cm :33 Pulse 82 /min Comments: Pattern: Regular Respiration Rate 18 /min Comments: Pattern: Unlabored BP Systolic 108 mm[Hg] Comments: Patient Position: Sitting; Cuff Location: Left Arm; Cuff Size: Large BP Diastolic 62 mm[Hg] Comments: Patient Position: Sitting; Cuff Location: Left Arm; Cuff Size: Large Weight 271.0625 lb Height 0 in Head Circumference 0.00 cm :55 Pulse 70 /min Comments: Pattern: Regular Respiration Rate 16 /min Comments: Pattern: Unlabored BP Systolic 114 mm[Hg] Comments: Patient Position: Sitting; Cuff Location: Left Arm; Cuff Size: Standard BP Diastolic 72 mm[Hg] Comments: Patient Position: Sitting; Cuff Location: Left Arm; Cuff Size: Standard Weight 273.3125 lb Height 0 in Head Circumference 0.00 cm :20 Pulse 66 /min Comments: Pattern: Regular Respiration Rate 16 /min Comments: Pattern: Unlabored BP Systolic 112 mm[Hg] Comments: Patient Position: Supine; Cuff Location: Left Arm; Cuff Size: Standard BP Diastolic 74 mm[Hg] Comments: Patient Position: Supine; Cuff Location: Left Arm; Cuff Size: Standard Weight 273.3125 lb Height 0 in Head Circumference 0.00 cm :42 Pulse 68 /min Comments: Pattern: Regular Respiration Rate 16 /min Comments: Pattern: Unlabored BP Systolic 124 mm[Hg] Comments: Patient Position: Sitting; Cuff Location: Left Arm; Cuff Size: Large BP Diastolic 70 mm[Hg] Comments: Patient Position: Sitting; Cuff Location: Left Arm; Cuff Size: Large Weight 0 lb Height 0 in Head Circumference 0.00 cm :53 Pulse 68 /min Comments: Pattern: Regular Respiration Rate 20 /min Comments: Pattern: Unlabored BP Systolic 128 mm[Hg] Comments: Patient Position: Sitting; Cuff Location: Left Arm; Cuff Size: Large BP Diastolic 64 mm[Hg] Comments: Patient Position: Sitting; Cuff Location: Left Arm; Cuff Size: Large Weight 273.3125 lb Height 0 in Head Circumference 0.00 cm :25 Pulse 60 /min Comments: Pattern: Regular Respiration Rate 20 /min Comments: Pattern: Unlabored BP Systolic 124 mm[Hg] Comments: Patient Position: Sitting; Cuff Location: Left Arm; Cuff Size: Large BP Diastolic 68 mm[Hg] Comments: Patient Position: Sitting; Cuff Location: Left Arm; Cuff Size: Large Weight 268.3125 lb Height 0 in Head Circumference 0.00 cm :56 Pulse 60 /min Comments: Pattern: Regular Respiration Rate 16 /min Comments: Pattern: Unlabored BP Systolic 118 mm[Hg] Comments: Patient Position: Sitting; Cuff Location: Left Arm; Cuff Size: Large BP Diastolic 72 mm[Hg] Comments: Patient Position: Sitting; Cuff Location: Left Arm; Cuff Size: Large Weight 224 lb Height 0 in Head Circumference 0.00 cm :38 Temperature 97.4 f Comments: Method: Oral Pulse 80 /min Comments: Pattern: Regular Respiration Rate 20 /min Comments: Pattern: Unlabored BP Systolic 128 mm[Hg] Comments: Patient Position: Undefined; Cuff Location: Undefined; Cuff Size: Undefined BP Diastolic 62 mm[Hg] Comments: Patient Position: Undefined; Cuff Location: Undefined; Cuff Size: Undefined Weight 224 lb Height 0 in Head Circumference 0.00 cm :03 Temperature 98.1 f Comments: Method: Oral Pulse 64 /min Comments: Pattern: Regular Respiration Rate 24 /min Comments: Pattern: Labored O2 SAT 96 % Comments: Room air BP Systolic 124 mm[Hg] Comments: Patient Position: Sitting; Cuff Location: Left Arm; Cuff Size: Large BP Diastolic 80 mm[Hg] Comments: Patient Position: Sitting; Cuff Location: Left Arm; Cuff Size: Large Weight 0 lb Height 0 in Head Circumference 0.00 cm :48 Pulse 64 /min Comments: Pattern: Regular Respiration Rate 20 /min Comments: Pattern: Unlabored BP Systolic 124 mm[Hg] Comments: Patient Position: Sitting; Cuff Location: Right Arm; Cuff Size: Large BP Diastolic 66 mm[Hg] Comments: Patient Position: Sitting; Cuff Location: Right Arm; Cuff Size: Large Weight 224 lb Height 0 in Head Circumference 0.00 cm :47 Temperature 97.3 f Comments: Method: Oral Pulse 68 /min Comments: Pattern: Regular Respiration Rate 16 /min Comments: Pattern: Unlabored BP Systolic 122 mm[Hg] Comments: Patient Position: Sitting; Cuff Location: Left Arm; Cuff Size: Large BP Diastolic 72 mm[Hg] Comments: Patient Position: Sitting; Cuff Location: Left Arm; Cuff Size: Large Weight 224 lb Height 0 in Head Circumference 0.00 cm Results Date Description Value Details :52 Urinalysis, Complete Comments: Order Date: 03/15/18How was Urine Obtained? [facility] [id number] [place], [address] MUCUS, URINE 0 SEEN {/hpf} (Normal) BACTERIA 0 SEEN {/hpf} (Normal) SQUAM EPI 0-5 SEEN {/hpf} (Normal) Range: 5-10 RBC-UA 0 SEEN {/hpf} (Normal) Range: 0-5 WBC 0 SEEN {/hpf} (Normal) Range: 0-5 LEUK ESTERASE 25 /ul (Abnormal) OCCULT BLOOD-UR Negative /ul (Normal) NITRITE UR Negative (Normal) UROBILI Normal mg/dL (Normal) PROT DIPSTX 15 mg/dL (Abnormal) pH UR 8.0 (Normal) Range: 5.0 - 8.0 SP.GR. DIPSTX 1.010 (Normal) Range: 1.002-1.030 KETONE UR Negative mg/dL (Normal) BILIRUBIN URINE Negative mg/dL (Normal) GLUCOSE, UR Normal mg/dL (Normal) CLARITY Clear (Normal) COLOR Yellow (Normal) :52 Urine Drug Screen (VISTA) Comments: Order Date: 03/15/18[facility] [id number] [place], [address] THC NEGATIVE (Normal) PCP NEGATIVE (Normal) OPIATES NEGATIVE (Normal) METHADONE NEGATIVE (Normal) ECSTACY NEGATIVE (Normal) COCAINE NEGATIVE (Normal) BENZODIAZIPINE NEGATIVE (Normal) BARBITIURATES NEGATIVE (Normal) AMPHETAMINES NEGATIVE (Normal) VISTA UDS PH 8 (Normal) TO BE CONFIRMED (Normal) Comments: CONFIRMATORY TESTING FOR ALL POSITIVE URINE DRUG SCREENRESULTS WILL ONLY BE SENT OUT UPON PHYSICIAN ORDER.VISTA Urine Drug Screen methods provide only preliminaryanalytical test results. A more specific alternate chemicalmethod must be used in order to obtain a confirmedanalytical result. Gas chromatography/mass spectrometery(GC/MS) is the preferred confirmatory method. Clinicalconsideration and profe ssional judgement should be appliedto any drug of abuse test result, particularly whenpreliminary positive results are used.URINE TCA TESTING MUST BE ORDERED SEPARATELY. USE TESTMNEMONIC: [facility] :51 Venous Blood Gas Comments: [facility] LaboratoryPoint of [id number] [place] [place] [address] ISTAT 26 mmol/L (Normal) Range: 23-33 VBG SO2 ISTAT 78 % (Abnormal) Range: 50-70 VBG BE ISTAT 3 mmol/L (Normal) Range: -1.0-3.5 VBG HCO3 ISTAT 26 mmol/L (Normal) Range: 22-26 VBG PO2 I-STAT 35 {mmHg} (Normal) Range: 25-40 VBG pCO2 - ISTA 27.5 {mmHg} (Abnormal) Range: 41-51 VBGpH - I-STAT 7.58 (Abnormal) Range: 7.32-7.42 Time Given 1944 (Normal) Results To ED MD (Normal) O2 Delivery Dev Room Air (Normal) SITE OTHER (Normal) BLD GAS TYPE LIZ (Normal) :39 Alcohol, Blood (Medical)-Serum Comments: [facility] [id number] [place], [address] SERUM ETOH < 3.0 mg/dL (Normal) Comments: The serum:whole blood ethanol ratio is approximately 1.14and varies slightly with hematocrit.Medical Alcohol reference interval and critical value innon-tolerant individuals; 50 - 100 Impairment 100 Intoxication 100 - 250 Severe Poisoning 250 - 400 Deep/possible fatal coma [id number] CBC W/Diff, Automated Comments: [facility] [id number] [place], [address] Absolute Lymph 3.19 {X10_3/ul} (Normal) Range: 0.83-4.51 Absolute Neut 4.3 {X10_3/uL} (Normal) Range: 2.0-7.7 IM GRAN % 0.200 % (Normal) Range: 0.0-0.9 Comments: IG% - Immature Granulocytes (promyelocytes, myelocytes andmetamyelocytes) > 1% indicates that a LEFT SHIFT is Present. BASO% 0.2 % (Normal) Range: 0-1 EO% 2.6 % (Normal) Range: 0-5 MONO% 7.8 % (Normal) Range: 0-10 LY% 37.8 % (Normal) Range: 19-41 NEUT% 51.4 % (Normal) Range: 47-70 MPV 11.0 fL (Normal) Range: 6.2-12.0 PLT 229 K/mm3 (Normal) Range: 150-450 RDW SD 41.6 fL (Normal) Range: 35.1-43.9 RDW CV 12.8 % (Normal) Range: 11.6-14.6 MCHC 33.4 {g/gl} (Normal) Range: 32-36 MCH 30.6 pg (Normal) Range: 27.0-32.0 MCV 91.6 fL (Normal) Range: 81-99 HCT 44.6 % (Normal) Range: 37-47 HGB 14.9 g/dL (Normal) Range: 12.0-15.0 RBC 4.87 {M/mm3} (Normal) Range: 4.2-5.4 WBC 8.4 K/mm3 (Normal) Range: 4.4-11.0 [id number] Comprehensive Metabolic Profil Comments: [facility] [id number] [place], [id number] GAP 12 (Normal) Range: 5-15 CO2 24.0 mmol/L (Normal) Range: 21.0-32.0 CL 104 mmol/L (Normal) Range: 98-107 K 3.5 mmol/L (Normal) Range: 3.5-5.1 NA 140 mmol/L (Normal) Range: 136-145 T BILI 0.50 mg/dL (Normal) Range: 0.20-1.00 ALT 61 U/L (Abnormal) Range: 13-56 ALK P 94 U/L (Normal) Range: 45-117 AST 30 U/L (Normal) Range: 15-37 CA 8.6 mg/dL (Normal) Range: 8.5-10.1 A/G 0.8 {RATIO} (Abnormal) Range: 0.9-2.4 GLOB 3.9 g/dL (Normal) Range: 2.2-4.2 ALB 3.3 g/dL (Normal) Range: 3.2-5.0 T PROT 7.2 g/dL (Normal) Range: 6.4-8.2 BUN/CRE 21.1 {RATIO} (Abnormal) Range: 10-20 Estimated CRCL 76.47 ml/min (Normal) EST GFR - AA 104 mL/min (Normal) Comments: GFR Calc EST GFR 86 mL/min (Normal) Comments: Non- GFR Calc CREAT,SERUM 0.76 mg/dL (Normal) Range: 0.55-1.02 Comments: The validity of the calculated GFR AND GFRAA in patients over70 years has not been determined. Clinical correlation isessential. BUN 16 mg/dL (Normal) Range: 7-18 GLU 84 mg/dL (Normal) Range: 74-106 Comments: Please note revised GLUCOSE reference range wdamysxjg56/02/2018. 65-Wub-[id number]:39 Lactic Acid Comments: Yes/No query for Sepsis Lactate Rule [facility] [address] [place], [place], [id number] LACTIC ACID 2.4 mmol/L (Abnormal) Range: 0.4-2.0 Comments: Critical Result(s) Called at: 20:33:03 03/15/2018 by: Jose VIVAR [id number]-Ubw-[id number]:39 Partial Thromboplast Time Comments: [facility] [address] [place], [address] PTT 33.9 s (Normal) Range: 24.1-36.2 82-Zma-908056:39 Prothrombin Time w/INR Comments: [facility] [address] [place], [place], [id number] INR 1.1 (Normal) PROTIME 13.9 s (Normal) Range: 11.7-14.9 :39 Troponin-I Comments: [facility] [address] [place], [place], [id number] TROPONIN-I < 0.015 ng/mL (Normal) Comments: TROPONIN-I EXPECTED VALUES <0.045 Negative 0.045 - 0.590 Consistent with Cardiac Damage > OR = 0.600 Critical Value Not every elevated troponin is indicative of WI. T hesevalues should be used with clinical judgement in examiningthe patient's clinical picture for diagnosis. To establisha diagnosis of WI versus myocardial injury, there must be ademonstrated rise and/ or fall in the troponin values, inaddition to ischemic symptoms, EKG changes, new regionalwall motion abnormality, and/or angiographical evidence. PLEASE NOTE: REFERENCE RANGES EDITED 17:24 Bedside Glucose Comments: [facility] LaboratoryPoint of [address] [place], [place] [id number] BEDSIDE GLU 92 mg/dL (Normal) Range: 70-110 Comments: MANAGEMENT OF PATIENT CARE PER NURSING PROTOCOL :57 Bedside Glucose Comments: [facility] LaboratoryPoint of Egop[address] [place], [place] [id number] BEDSIDE GLU 115 mg/dL (Abnormal) Range: 70-110 Comments: MANAGEMENT OF PATIENT CARE PER NURSING PROTOCOL :15 Urinalysis, Complete Comments: How was Urine Obtained? [facility] [address]on[address] [place], [address] HYALINE CAST 5-10 SEEN {/lpf} (Normal) Range: 0-5 MUCUS, URINE 0 SEEN {/hpf} (Normal) BACTERIA 0 SEEN {/hpf} (Normal) SQUAM EPI 0 SEEN {/hpf} (Normal) Range: 5-10 RBC-UA 0 SEEN {/hpf} (Normal) Range: 0-5 WBC 0-5 SEEN {/hpf} (Normal) Range: 0-5 LEUK ESTERASE Negative /ul (Normal) OCCULT BLOOD-UR Negative /ul (Normal) NITRITE UR Negative (Normal) UROBILI Normal mg/dL (Normal) PROT DIPSTX Negative mg/dL (Normal) pH UR 5.0 (Normal) Range: 5.0 - 8.0 SP.GR. DIPSTX 1.020 (Normal) Range: 1.002-1.030 KETONE UR 15 mg/dL (Abnormal) BILIRUBIN URINE Negative mg/dL (Normal) GLUCOSE, UR Normal mg/dL (Normal) CLARITY Clear (Normal) COLOR Yellow (Normal) :15 Urine Drug Screen (VISTA) Comments: [facility] [address] [place], [address] THC NEGATIVE (Normal) PCP NEGATIVE (Normal) OPIATES NEGATIVE (Normal) METHADONE NEGATIVE (Normal) ECSTACY NEGATIVE (Normal) COCAINE NEGATIVE (Normal) BENZODIAZIPINE NEGATIVE (Normal) BARBITIURATES NEGATIVE (Normal) AMPHETAMINES NEGATIVE (Normal) VISTA UDS PH 6 (Normal) TO BE CONFIRMED (Normal) Comments: CONFIRMATORY TESTING FOR ALL POSITIVE URINE DRUG SCREENRESULTS WILL ONLY BE SENT OUT UPON PHYSICIAN ORDER.VISTA Urine Drug Screen methods provide only preliminaryanalytical test results. A more specific alternate chemicalmethod must be used in order to obtain a confirmedanalytical result. Gas chromatography/mass spectrometery(GC/MS) is the preferred confirmatory method. Clinicalconsideration and profe ssional judgement should be appliedto any drug of abuse test result, particularly whenpreliminary positive results are used.URINE TCA TESTING MUST BE ORDERED SEPARATELY. USE TESTMNEMONIC: UTCA :00 Partial Thromboplast Time Comments: [facility] [address] [place], [address] PTT 28.4 s (Normal) Range: 24.1-36.2 :00 Prothrombin Time w/INR Comments: [facility] [address] [place], [address] INR 1.1 (Normal) PROTIME 14.3 s (Normal) Range: 11.7-14.9 :55 Alcohol, Blood (Medical)-Serum Comments: [facility] [address] [place], [place], [id number] SERUM ETOH < 3.0 mg/dL (Normal) Comments: The serum:whole blood ethanol ratio is approximately 1.14and varies slightly with hematocrit.Medical Alcohol reference interval and critical value innon-tolerant individuals; 50 - 100 Impairment 100 Intoxication 100 - 250 Severe Poisoning 250 - 400 Deep/possible fatal coma :55 CBC W/Diff, Automated Comments: [facility] [address] [place], [place], [id number] Absolute Lymph 1.41 {X10_3/ul} (Normal) Range: 0.83-4.51 Absolute Neut 9.6 {X10_3/uL} (Abnormal) Range: 2.0-7.7 IM GRAN % 0.300 % (Normal) Range: 0.0-0.9 Comments: IG% - Immature Granulocytes (promyelocytes, myelocytes andmetamyelocytes) > 1% indicates that a LEFT SHIFT is Present. BASO% 0.2 % (Normal) Range: 0-1 EO% 0.6 % (Normal) Range: 0-5 MONO% 5.9 % (Normal) Range: 0-10 LY% 11.9 % (Abnormal) Range: 19-41 NEUT% 81.1 % (Abnormal) Range: 47-70 MPV 10.6 fL (Normal) Range: 6.2-12.0 PLT 261 K/mm3 (Normal) Range: 150-450 RDW SD 42.7 fL (Normal) Range: 35.1-43.9 RDW CV 12.8 % (Normal) Range: 11.6-14.6 MCHC 33.4 {g/gl} (Normal) Range: 32-36 MCH 30.9 pg (Normal) Range: 27.0-32.0 MCV 92.5 fL (Normal) Range: 81-99 HCT 44.3 % (Normal) Range: 37-47 HGB 14.8 g/dL (Normal) Range: 12.0-15.0 RBC 4.79 {M/mm3} (Normal) Range: 4.2-5.4 WBC 11.8 K/mm3 (Abnormal) Range: 4.4-11.0 28-Feb-20181:55 Comprehensive Metabolic Profil Comments: [facility] [address] [place], [place], [id number] GAP 10 (Normal) Range: 5-15 CO2 26.0 mmol/L (Normal) Range: 21.0-32.0 CL 107 mmol/L (Normal) Range: 98-107 K 3.8 mmol/L (Normal) Range: 3.5-5.1 NA 143 mmol/L (Normal) Range: 136-145 T BILI 1.00 mg/dL (Normal) Range: 0.20-1.00 ALT 22 U/L (Normal) Range: 13-56 ALK P 93 U/L (Normal) Range: 45-117 AST 18 U/L (Normal) Range: 15-37 CA 8.8 mg/dL (Normal) Range: 8.5-10.1 A/G 1.0 {RATIO} (Normal) Range: 0.9-2.4 GLOB 3.7 g/dL (Normal) Range: 2.2-4.2 ALB 3.6 g/dL (Normal) Range: 3.2-5.0 T PROT 7.3 g/dL (Normal) Range: 6.4-8.2 BUN/CRE 20.3 {RATIO} (Abnormal) Range: 10-20 Estimated CRCL 58.71 ml/min (Normal) EST GFR - AA 77 mL/min (Normal) Comments: GFR Calc EST GFR 63 mL/min (Normal) Comments: Non- GFR Calc CREAT,SERUM 0.99 mg/dL (Normal) Range: 0.55-1.02 Comments: The validity of the calculated GFR AND GFRAA in patients over70 years has not been determined. Clinical correlation isessential. BUN 20 mg/dL (Abnormal) Range: 7-18 GLU 145 mg/dL (Abnormal) Range: 74-106 Comments: Fasting Glucose result greater than or equal to 126 mg/dLsuggests DIABETES MELLITUS per A.D.A. criteria.Please note revised GLUCOSE reference range /02/2018. 7-Vmz-475623:45 Alcohol, Blood (Medical)-Serum Comments: [facility] [address] [place], [address] SERUM ETOH 5.0 mg/dL (Normal) Comments: The serum:whole blood ethanol ratio is approximately 1.14and varies slightly with hematocrit.Medical Alcohol reference interval and critical value innon-tolerant individuals; 50 - 100 Impairment 100 Intoxication 100 - 250 Severe Poisoning 250 - 400 Deep/possible fatal coma 7-Iwn-140069:45 Basic Metabolic Profile (BMP) Comments: [facility] [address] [place], [address] GAP 10 (Normal) Range: 5-15 CO2 26.0 mmol/L (Normal) Range: 21.0-32.0 CL 106 mmol/L (Normal) Range: 98-107 K 3.6 mmol/L (Normal) Range: 3.5-5.1 NA 142 mmol/L (Normal) Range: 136-145 CA 8.8 mg/dL (Normal) Range: 8.5-10.1 BUN/CRE 25.3 {RATIO} (Abnormal) Range: 10-20 Estimated CRCL 92.25 ml/min (Normal) EST GFR - AA 128 mL/min (Normal) Comments: GFR Calc EST GFR 106 mL/min (Normal) Comments: Non- GFR Calc CREAT,SERUM 0.63 mg/dL (Normal) Range: 0.55-1.02 Comments: The validity of the calculated GFR AND GFRAA in patients over70 years has not been determined. Clinical correlation isessential. BUN 16 mg/dL (Normal) Range: 7-18 GLU 109 mg/dL (Abnormal) Range: 74-106 Comments: Fasting Glucose result from 100 to 125 mg/dLsuggests IMPAIRED HOMEOSTASIS per A.D.A. criteria.Please note revised GLUCOSE reference range iinveehoh13/02/2018. 8-Nfm-165434:45 CBC W/Diff, Automated Comments: [facility] [address] [place], [address] Absolute Lymph 3.05 {X10_3/ul} (Normal) Range: 0.83-4.51 Absolute Neut 5.6 {X10_3/uL} (Normal) Range: 2.0-7.7 IM GRAN % 0.200 % (Normal) Range: 0.0-0.9 Comments: IG% - Immature Granulocytes (promyelocytes, myelocytes andmetamyelocytes) > 1% indicates that a LEFT SHIFT is Present. BASO% 0.2 % (Normal) Range: 0-1 EO% 1.8 % (Normal) Range: 0-5 MONO% 8.0 % (Normal) Range: 0-10 LY% 31.7 % (Normal) Range: 19-41 NEUT% 58.1 % (Normal) Range: 47-70 MPV 10.2 fL (Normal) Range: 6.2-12.0 PLT 240 K/mm3 (Normal) Range: 150-450 RDW SD 44.0 fL (Abnormal) Range: 35.1-43.9 RDW CV 13.1 % (Normal) Range: 11.6-14.6 MCHC 32.7 {g/gl} (Normal) Range: 32-36 MCH 30.3 pg (Normal) Range: 27.0-32.0 MCV 92.7 fL (Normal) Range: 81-99 HCT 44.3 % (Normal) Range: 37-47 HGB 14.5 g/dL (Normal) Range: 12.0-15.0 RBC 4.78 {M/mm3} (Normal) Range: 4.2-5.4 WBC 9.6 K/mm3 (Normal) Range: 4.4-11.0 7-Hfw-506620:45 ,Serum,hCG Quali. Comments: [facility] [address] [facility] [place], [address] HCGSQUAL NEGATIVE {Negative} (Normal) Range: 0-9 Nonpreg HCG Qual triggr 2 m[iU]/mL (Normal) 9-Xqg-748949:40 Urinalysis, Complete Comments: Order Date: 02/26/18How was Urine Obtained? [facility] [address], [address] MUCUS, URINE 1+ {/hpf} (Normal) BACTERIA RARE {/hpf} (Normal) SQUAM EPI 0-5 SEEN {/hpf} (Normal) Range: 5-10 RBC-UA 0 SEEN {/hpf} (Normal) Range: 0-5 WBC 0 SEEN {/hpf} (Normal) Range: 0-5 LEUK ESTERASE Negative /ul (Normal) OCCULT BLOOD-UR Negative /ul (Normal) NITRITE UR Negative (Normal) UROBILI Normal mg/dL (Normal) PROT DIPSTX Negative mg/dL (Normal) pH UR 6.5 (Normal) Range: 5.0 - 8.0 SP.GR. DIPSTX 1.020 (Normal) Range: 1.002-1.030 KETONE UR 5 mg/dL (Abnormal) BILIRUBIN URINE Negative mg/dL (Normal) GLUCOSE, UR Normal mg/dL (Normal) CLARITY Sl. Cloudy (Normal) COLOR Yellow (Normal) 2-Rby-558274:40 Urine Drug Screen (VISTA) Comments: [facility] [address] [facility] [place], [address] THC NEGATIVE (Normal) PCP NEGATIVE (Normal) OPIATES NEGATIVE (Normal) METHADONE NEGATIVE (Normal) ECSTACY NEGATIVE (Normal) COCAINE NEGATIVE (Normal) BENZODIAZIPINE NEGATIVE (Normal) BARBITIURATES NEGATIVE (Normal) AMPHETAMINES NEGATIVE (Normal) VISTA UDS PH 6 (Normal) TO BE CONFIRMED (Normal) Comments: CONFIRMATORY TESTING FOR ALL POSITIVE URINE DRUG SCREENRESULTS WILL ONLY BE SENT OUT UPON PHYSICIAN ORDER.VISTA Urine Drug Screen methods provide only preliminaryanalytical test results. A more specific alternate chemicalmethod must be used in order to obtain a confirmedanalytical result. Gas chromatography/mass spectrometery(GC/MS) is the preferred confirmatory method. Clinicalconsideration and profe ssional judgement should be appliedto any drug of abuse test result, particularly whenpreliminary positive results are used.URINE TCA TESTING MUST BE ORDERED SEPARATELY. USE TESTMNEMONIC: [facility] 53-Gzr-873668:50 Urinalysis, Complete Comments: Order Date: 02/23/18Has pt arrived? YHow was Urine Obtained? CLEAN [facility] [address] [facility] [place], [address] MUCUS, URINE 2+ {/hpf} (Normal) BACTERIA 2+ {/hpf} (Normal) SQUAM EPI 0-5 SEEN {/hpf} (Normal) Range: 5-10 RBC-UA 0 SEEN {/hpf} (Normal) Range: 0-5 WBC 0-5 SEEN {/hpf} (Normal) Range: 0-5 LEUK ESTERASE 25 /ul (Abnormal) OCCULT BLOOD-UR Negative /ul (Normal) NITRITE UR Negative (Normal) UROBILI Normal mg/dL (Normal) PROT DIPSTX Negative mg/dL (Normal) pH UR 6.0 (Normal) Range: 5.0 - 8.0 SP.GR. DIPSTX 1.020 (Normal) Range: 1.002-1.030 KETONE UR Negative mg/dL (Normal) BILIRUBIN URINE Negative mg/dL (Normal) GLUCOSE, UR Normal mg/dL (Normal) CLARITY Clear (Normal) COLOR Yellow (Normal) 45-Qkw-987326:50 Urine Drug Screen (VISTA) Comments: [facility] [address] [facility], [address] THC NEGATIVE (Normal) PCP NEGATIVE (Normal) OPIATES NEGATIVE (Normal) METHADONE NEGATIVE (Normal) ECSTACY NEGATIVE (Normal) COCAINE NEGATIVE (Normal) BENZODIAZIPINE NEGATIVE (Normal) BARBITIURATES NEGATIVE (Normal) AMPHETAMINES NEGATIVE (Normal) VISTA UDS PH 6 (Normal) TO BE CONFIRMED (Normal) Comments: CONFIRMATORY TESTING FOR ALL POSITIVE URINE DRUG SCREENRESULTS WILL ONLY BE SENT OUT UPON PHYSICIAN ORDER.VISTA Urine Drug Screen methods provide only preliminaryanalytical test results. A more specific alternate chemicalmethod must be used in order to obtain a confirmedanalytical result. Gas chromatography/mass spectrometery(GC/MS) is the preferred confirmatory method. Clinicalconsideration and profe ssional judgement should be appliedto any drug of abuse test result, particularly whenpreliminary positive results are used.URINE TCA TESTING MUST BE ORDERED SEPARATELY. USE TESTMNEMONIC: [facility] 44-Lwh-279151:15 Alcohol, Blood (Medical)-Serum Comments: [facility] [address] [place], [address] SERUM ETOH < 3.0 mg/dL (Normal) Comments: The serum:whole blood ethanol ratio is approximately 1.14and varies slightly with hematocrit.Medical Alcohol reference interval and critical value innon-tolerant individuals; 50 - 100 Impairment 100 Intoxication 100 - 250 Severe Poisoning 250 - 400 Deep/possible fatal coma 11-Ips-949308:15 CBC W/Diff, Automated Comments: [facility] [address] [place], [address] Absolute Lymph 2.67 {X10_3/ul} (Normal) Range: 0.83-4.51 Absolute Neut 7.0 {X10_3/uL} (Normal) Range: 2.0-7.7 IM GRAN % 0.100 % (Normal) Range: 0.0-0.9 Comments: IG% - Immature Granulocytes (promyelocytes, myelocytes andmetamyelocytes) > 1% indicates that a LEFT SHIFT is Present. BASO% 0.1 % (Normal) Range: 0-1 EO% 1.1 % (Normal) Range: 0-5 MONO% 8.3 % (Normal) Range: 0-10 LY% 25.0 % (Normal) Range: 19-41 NEUT% 65.4 % (Normal) Range: 47-70 MPV 9.9 fL (Normal) Range: 6.2-12.0 PLT 246 K/mm3 (Normal) Range: 150-450 RDW SD 44.6 fL (Abnormal) Range: 35.1-43.9 RDW CV 13.1 % (Normal) Range: 11.6-14.6 MCHC 32.3 {g/gl} (Normal) Range: 32-36 MCH 30.0 pg (Normal) Range: 27.0-32.0 MCV 92.8 fL (Normal) Range: 81-99 HCT 45.2 % (Normal) Range: 37-47 HGB 14.6 g/dL (Normal) Range: 12.0-15.0 RBC 4.87 {M/mm3} (Normal) Range: 4.2-5.4 WBC 10.7 K/mm3 (Normal) Range: 4.4-11.0 75-Ivb-496351:15 Comprehensive Metabolic Profil Comments: [facility] [address] [place], [address] GAP 9 (Normal) Range: 5-15 CO2 27.0 mmol/L (Normal) Range: 21.0-32.0 CL 106 mmol/L (Normal) Range: 98-107 K 3.3 mmol/L (Abnormal) Range: 3.5-5.1 NA 142 mmol/L (Normal) Range: 136-145 T BILI 0.90 mg/dL (Normal) Range: 0.20-1.00 ALT 29 U/L (Normal) Range: 13-56 ALK P 101 U/L (Normal) Range: 45-117 AST 14 U/L (Abnormal) Range: 15-37 CA 9.0 mg/dL (Normal) Range: 8.5-10.1 A/G 0.9 {RATIO} (Normal) Range: 0.9-2.4 GLOB 4.1 g/dL (Normal) Range: 2.2-4.2 ALB 3.5 g/dL (Normal) Range: 3.2-5.0 T PROT 7.6 g/dL (Normal) Range: 6.4-8.2 BUN/CRE 22.6 {RATIO} (Abnormal) Range: 10-20 Estimated CRCL 87.27 ml/min (Normal) EST GFR - AA 105 mL/min (Normal) Comments: GFR Calc EST GFR 87 mL/min (Normal) Comments: Non- GFR Calc CREAT,SERUM 0.75 mg/dL (Normal) Range: 0.55-1.02 Comments: The validity of the calculated GFR AND GFRAA in patients over70 years has not been determined. Clinical correlation isessential. BUN 17 mg/dL (Normal) Range: 7-18 GLU 98 mg/dL (Normal) Range: 74-106 Comments: Please note revised GLUCOSE reference range iyxvpgead47/02/2018. 48-Vmx-661379:15 ,Serum,hCG Quali. Comments: [facility] [address] [place], [address] HCGSQUAL NEGATIVE {Negative} (Normal) Range: 0-9 Nonpreg HCG Qual triggr 2 m[iU]/mL (Normal) 34-Flk-51746:07 Bedside Glucose Comments: [facility] LaboratoryPoint of [address] [place] [address] BEDSIDE GLU 107 mg/dL (Normal) Range: 70-110 Comments: MANAGEMENT OF PATIENT CARE PER NURSING PROTOCOL 11-Qze-28987:00 COLON BIOPSY (CHOOSE See Note (Normal) Comments: [facility] [address] [place], [address] SITE) Comments: Patient: SIMI NIELSEN : 1970 (47/F) Acct Num: [id number] Phys: Kajal LEON,[place] Unit Num: [id number] Loc: EN Specimen: [id number] Received: 02/14/18 - 1323 Spec Type: COL ON BX TISSUES TISSUES: A. Ileum, NOS B. COLON BIOPSY GROSS DESCRIPTION A - Received in fixative is one container labeled with the patient's name and designat ed terminal ileum. The specimen consists of multiple irregular fragments of light gaspar soft tissue that in aggregate measure 0.5 x 0.4 x 0.1 cm. The specimen is totally submitted in one cassette. B - Received in fixative is one container labeled with the patient's name and designated random colon biopsy. The specimen consists of multiple irregular fragments of light gaspar soft tissue that in agg regate measure 2 x 0.5 x 0.1 cm. The specimen is totally submitted in one cassette. / DEBORAH:torres 02/14/18 TC:4 CPT: 71488 x2 HEADER OPERATION: Colonoscopy PRE-OP DIAGNOSIS: Diarrhea TISSUE S UBMITTED: A Terminal ileum biopsy, B Random colon biopsies MICROSCOPIC DESCRIPTION Slides are reviewed. MICROSCOPIC DIAGNOSIS A. Terminal ileum, biopsy: Fragments of small inte stinal mucosa, no pathologic diagnosis. B. Colon, random biopsy: Fragments of colonic mucosa, no pathologic diagnosis. SJ:torres 02/15/18 Signed __ Connor Chao 02/15/18 <signature on file> 67-Ijv-23340:24 Bedside Glucose Comments: [facility] LaboratoryPoint of [address] [place] [address] BEDSIDE GLU 108 mg/dL (Normal) Range: 70-110 Comments: MANAGEMENT OF PATIENT CARE PER NURSING PROTOCOL 57-Dax-440406:27 Urinalysis, Office ([id number]) UA - LEUKOCYTE ESTERASE Negative (Normal) UA - NITRITE Negative (Normal) URINE UROBILINGN DENISE TIMED Normal mg/dL (Normal) UA - PROTEIN Negative mg/dL (Normal) UA - PH 6.0 (Normal) UA - BLOOD Negative (Normal) UA - SPECIFIC GRAVITY 1.020 (Normal) UA - KETONES Negative mg/dL (Normal) UA - BILIRUBIN Negative (Normal) UA - GLUCOSE Negative (Normal) :55 Blood Glucose , Office (52248) Blood Glucose , Office 93 (Normal) :55 HgA1C , Office (76191) HgA1C , Office 5.6 % (Normal) Range: 4.6 - 7.1 :48 HgA1C , Office (85473) HgA1C , Office 5.2 % (Normal) Range: 4.6 - 7.1 :03 VITAMIN B-12 (CYANOCOBALAMIN) Comments: PATIENT NOT FASTINGPERFORMED BY: WomensforumEast Orange General HospitalSdhdks7054 [facility] [id number] ([id number]) Vitamin B12 399 pg/mL (Normal) Range: 232-1245 :03 CBC W/AUTO DIFF WBC (88976) Comments: PATIENT NOT FASTINGPERFORMED BY: NBA Math HoopsCoNew Mexico Rehabilitation CenterUnpzat3745 [facility] [id number] Immature Grans (Abs) 0.0 {x10E3/uL} (Normal) Range: 0.0-0.1 Immature Granulocytes 0 % (Normal) Baso (Absolute) 0.0 {x10E3/uL} (Normal) Range: 0.0-0.2 Eos (Absolute) 0.2 {x10E3/uL} (Normal) Range: 0.0-0.4 Monocytes(Absolute) 0.4 {x10E3/uL} (Normal) Range: 0.1-0.9 Lymphs (Absolute) 2.1 {x10E3/uL} (Normal) Range: 0.7-3.1 Neutrophils (Absolute) 4.2 {x10E3/uL} (Normal) Range: 1.4-7.0 Basos 0 % (Normal) Eos 3 % (Normal) Monocytes 6 % (Normal) Lymphs 31 % (Normal) Neutrophils 60 % (Normal) Platelets 286 {x10E3/uL} (Normal) Range: 150-379 RDW 13.0 % (Normal) Range: 12.3-15.4 MCHC 33.2 g/dL (Normal) Range: 31.5-35.7 MCH 29.9 pg (Normal) Range: 26.6-33.0 MCV 90 fL (Normal) Range: 79-97 Hematocrit 43.4 % (Normal) Range: 34.0-46.6 Hemoglobin 14.4 g/dL (Normal) Range: 11.1-15.9 RBC 4.81 {x10E6/uL} (Normal) Range: 3.77-5.28 WBC 6.9 {x10E3/uL} (Normal) Range: 3.4-10.8 22-Soq-628138:03 METABOLIC PANEL, COMPREHENSIVE Comments: PATIENT NOT FASTINGPERFORMED BY: LabCoEast Orange General HospitalMmzpdp9776 [facility] [id number] ([id number]) ALT (SGPT) 28 [iU]/L (Normal) Range: 0-32 AST (SGOT) 25 [iU]/L (Normal) Range: 0-40 Alkaline Phosphatase, S 85 [iU]/L (Normal) Range: 39-117 Bilirubin, Total 0.6 mg/dL (Normal) Range: 0.0-1.2 A/G Ratio 1.3 (Normal) Range: 1.2-2.2 Globulin, Total 3.1 g/dL (Normal) Range: 1.5-4.5 Albumin, Serum 3.9 g/dL (Normal) Range: 3.5-5.5 Protein, Total, Serum 7.0 g/dL (Normal) Range: 6.0-8.5 Calcium, Serum 9.2 mg/dL (Normal) Range: 8.7-10.2 Carbon Dioxide, Total 26 mmol/L (Normal) Range: 18-29 Chloride, Serum 100 mmol/L (Normal) Range: 96-106 Potassium, Serum 4.1 mmol/L (Normal) Range: 3.5-5.2 Sodium, Serum 142 mmol/L (Normal) Range: 134-144 BUN/Creatinine Ratio 19 (Normal) Range: 9-23 eGFR If Africn Am 122 mL/min/1.73 (Normal) eGFR If NonAfricn Am 106 mL/min/1.73 (Normal) Creatinine, Serum 0.63 mg/dL (Normal) Range: 0.57-1.00 BUN 12 mg/dL (Normal) Range: 6-24 Glucose, Serum 97 mg/dL (Normal) Range: 65-99 45-Yrp-033483:03 TSH (57291) Comments: PATIENT NOT FASTINGPERFORMED BY: WomensforumNew Mexico Rehabilitation CenterSbnofv8245 [facility] [id number] TSH 2.680 {uIU/mL} (Normal) Range: 0.450-4.500 76-Kzf-424816:13 PT (Prothrobim Time) (00474) Comments: PATIENT NOT FASTINGPERFORMED BY: NBA Math HoopsParkland Health CenterSmaert8587 [facility] [id number] Prothrombin Time 21.4 {sec} (Abnormal) Range: 9.1-12.0 INR 2.1 (Abnormal) Range: 0.8-1.2 Comments: Reference interval is for non-anticoagulated patients. . Suggested INR therapeutic range for Vitamin K anta gonist therapy: Standard Dose (moderate intensity therapeutic range): 2.0 - 3.0 Higher intensity therapeutic range 2.5 - 3.5 06-Dii-057958:31 URINE SHERITA CULTURE-DENISE COL Comments: PERFORMED BY: NBA Math HoopsBeaumont Hospital6370 [facility] [id number] Information: SRC:UC COUNT ([id number]) Result 1 MUG (Normal) Comments: Mixed urogenital flora10,000-25,000 colony forming units per mL Urine Final report (Normal) Culture,Comprehensive 57-Ylo-330685:33 Urinalysis, Office (76986) UA - LEUKOCYTE ESTERASE Negative (Normal) UA - NITRITE Negative (Normal) URINE UROBILINGN DENISE TIMED Normal mg/dL (Normal) UA - PROTEIN Negative mg/dL (Normal) UA - PH 5.0 (Normal) UA - BLOOD Negative (Normal) UA - SPECIFIC GRAVITY 1.010 (Normal) UA - KETONES Negative mg/dL (Normal) UA - BILIRUBIN Negative (Normal) UA - GLUCOSE Negative (Normal) 85-Srn-915473:32 HEPATIC FUNCTION PANEL Comments: PATIENT NOT FASTINGPERFORMED BY: NBA Math HoopsRusk Rehabilitation Center Wgubsb5986 [facility] [id number] ([id number]) ALT (SGPT) 78 [iU]/L (Abnormal) Range: 0-32 AST (SGOT) 38 [iU]/L (Normal) Range: 0-40 Alkaline Phosphatase, S 77 [iU]/L (Normal) Range: 39-117 Bilirubin, Direct 0.18 mg/dL (Normal) Range: 0.00-0.40 Bilirubin, Total 0.6 mg/dL (Normal) Range: 0.0-1.2 Albumin, Serum 4.0 g/dL (Normal) Range: 3.5-5.5 Protein, Total, Serum 6.8 g/dL (Normal) Range: 6.0-8.5 :32 HEPATITIS PANEL ([id number]) Comments: PATIENT NOT FASTINGPERFORMED BY: W[facility]forumEast [facility] [id number] [facility] [id number] Hep C Virus Ab <0.1 {s/co_ratio} (Normal) Range: 0.0-0.9 Comments: Negative: < 0.8 Indeterminate: 0.8 - 0.9 Positive: > 0.9 . The CDC recommends that a positive HCV antibody result be followed up with a HCV Nucleic Acid Amplification test (542815). Hep B Core Ab, IgM Negative (Normal) HBsAg Screen Negative (Normal) Hep A Ab, IgM Negative (Normal) :32 ANTIMITOCHONDRIAL ANTIBODY Comments: PATIENT NOT FASTINGPERFORMED BY: NBA Math HoopsJennifer Ville [id number] [facility] [id number] ([id number]) Mitochondrial (M2) Antibody <20.0 {Units} (Normal) Range: 0.0-20.0 Comments: Negative 0.0 - 20.0 Equivocal 20.1 - 24.9 Positive >24.9 . Mitochondrial (M2) Antibodies are found in 90-96% of patients with primary biliary cirrhosis. :32 TRANSFERRIN ([id number]) Comments: PATIENT NOT FASTINGPERFORMED BY: [facility] [id number] Transferrin 265 mg/dL (Normal) Range: 200-370 42-Ksx-557505:32 GGT (GAMMA GLUTAMYLTRANSFERASE) Comments: PATIENT NOT FASTINGPERFORMED BY: [facility] [place] [address] [id number] ([id number]) GGT 57 [iU]/L (Normal) Range: 0-60 32-Ewg-780440:32 FERRITIN (79604) Comments: PATIENT NOT FASTINGPERFORMED BY: [facility]6370 [facility] [id number] Ferritin, Serum 317 ng/mL (Abnormal) Range: 15-150 :32 CMV IGM ANTBDY (86769) Comments: PATIENT NOT FASTINGPERFORMED BY: [place] 7281970 [facility] [id number] Cytomegalovirus (CMV) Ab, IgM <30.0 AU/mL (Normal) Range: 0.0-29.9 Comments: Negative <30.0 Equivocal 30.0 - 34.9 Positive >34.9 A positive result is generally indicative of acute infection, reactivation or persistent IgM production. :32 CERULOPLASMIN (64434) Comments: PATIENT NOT FASTINGPERFORMED BY: [facility] [id number] Ceruloplasmin 29.9 mg/dL (Normal) Range: 19.0-39.0 :32 ASM (ANTI SMOOTH MUSCLE Comments: PATIENT NOT FASTINGPERFORMED BY: [facility] [id number] ANTIBODY) (99343) Actin (Smooth Muscle) Antibody 7 {Units} (Normal) Range: 0-19 Comments: Negative 0 - 19 Weak positive 20 - 30 Moderate to strong positive >30 . Actin Antibodies are found in 52-85% of patients with autoimmune hepatitis or chronic active hepatitis and in 22% of patients with primary biliary cirrhosis. :32 ANTI-LIVER/KIDNEY MICROSOMAL Comments: PATIENT NOT FASTINGPERFORMED BY: [facility]6370 [facility] [id number] ANTIBODY (47192) Liver-Kidney Microsomal Ab 1.5 {Units} (Normal) Range: 0.0-20.0 Comments: Negative 0.0 - 20.0 Equivocal 20.1 - 24.9 Positive >24.9 . LKM type 1 antibodies are detected in patients with autoimmune hepatitis type 2 and in up to 8% of patients with chronic HCV infection. :32 REYNALDO (ANTINUCLEAR ANTIBODY) Comments: PATIENT NOT FASTINGPERFORMED BY: [facility]ops15 [address]blin [place] [id number] (15208) REYNALDO Direct Negative (Normal) :41 TSH (74677) Comments: PATIENT WAS FASTINGPERFORMED BY: [facility] [id number] TSH 2.840 {uIU/mL} (Normal) Range: 0.450-4.500 57-Fwk-640890:41 METABOLIC PANEL, COMPREHENSIVE Comments: PATIENT WAS FASTINGPERFORMED BY: [facility] [id number] (45768) ALT (SGPT) 94 [iU]/L (Abnormal) Range: 0-32 AST (SGOT) 51 [iU]/L (Abnormal) Range: 0-40 Alkaline Phosphatase, S 74 [iU]/L (Normal) Range: 39-117 Bilirubin, Total 1.2 mg/dL (Normal) Range: 0.0-1.2 A/G Ratio 1.4 (Normal) Range: 1.2-2.2 Globulin, Total 2.8 g/dL (Normal) Range: 1.5-4.5 Albumin, Serum 4.0 g/dL (Normal) Range: 3.5-5.5 Protein, Total, Serum 6.8 g/dL (Normal) Range: 6.0-8.5 Calcium, Serum 9.0 mg/dL (Normal) Range: 8.7-10.2 Carbon Dioxide, Total 27 mmol/L (Normal) Range: 18-29 Chloride, Serum 96 mmol/L (Normal) Range: 96-106 Potassium, Serum 4.1 mmol/L (Normal) Range: 3.5-5.2 Sodium, Serum 139 mmol/L (Normal) Range: 134-144 BUN/Creatinine Ratio 16 (Normal) Range: 9-23 eGFR If Africn Am 119 mL/min/1.73 (Normal) eGFR If NonAfricn Am 104 mL/min/1.73 (Normal) Creatinine, Serum 0.67 mg/dL (Normal) Range: 0.57-1.00 BUN 11 mg/dL (Normal) Range: 6-24 Glucose, Serum 94 mg/dL (Normal) Range: 65-99 64-Ubb-574532:41 LIPID PANEL (60520) Comments: PATIENT WAS FASTINGPERFORMED BY: LabCoEast Orange General HospitalZvempx1828 [facility] [id number] LDL/HDL Ratio 2.3 {ratio_units} (Normal) Range: 0.0-3.2 Comments: LDL/HDL Ratio Men Women 1/2 Avg.Risk 1.0 1.5 Av g.Risk 3.6 3.2 2X Avg.Risk 6.2 5.0 3X Avg.Risk 8.0 6.1 LDL Cholesterol Calc 79 mg/dL (Normal) Range: 0-99 VLDL Cholesterol Koby 31 mg/dL (Normal) Range: 5-40 HDL Cholesterol 35 mg/dL (Abnormal) Triglycerides 155 mg/dL (Abnormal) Range: 0-149 Cholesterol, Total 145 mg/dL (Normal) Range: 100-199 99-Voj-006811:41 CBC W/AUTO DIFF WBC (23864) Comments: PATIENT WAS FASTINGPERFORMED BY: LabNot iTEast Orange General HospitalDcrdaj9463 [facility] [id number] Immature Grans (Abs) 0.0 {x10E3/uL} (Normal) Range: 0.0-0.1 Immature Granulocytes 0 % (Normal) Baso (Absolute) 0.0 {x10E3/uL} (Normal) Range: 0.0-0.2 Eos (Absolute) 0.2 {x10E3/uL} (Normal) Range: 0.0-0.4 Monocytes(Absolute) 0.9 {x10E3/uL} (Normal) Range: 0.1-0.9 Lymphs (Absolute) 2.4 {x10E3/uL} (Normal) Range: 0.7-3.1 Neutrophils (Absolute) 4.9 {x10E3/uL} (Normal) Range: 1.4-7.0 Basos 0 % (Normal) Eos 3 % (Normal) Monocytes 11 % (Normal) Lymphs 28 % (Normal) Neutrophils 58 % (Normal) Platelets 269 {x10E3/uL} (Normal) Range: 150-379 RDW 13.1 % (Normal) Range: 12.3-15.4 MCHC 34.0 g/dL (Normal) Range: 31.5-35.7 MCH 30.6 pg (Normal) Range: 26.6-33.0 MCV 90 fL (Normal) Range: 79-97 Hematocrit 43.5 % (Normal) Range: 34.0-46.6 Hemoglobin 14.8 g/dL (Normal) Range: 11.1-15.9 RBC 4.83 {x10E6/uL} (Normal) Range: 3.77-5.28 WBC 8.4 {x10E3/uL} (Normal) Range: 3.4-10.8 :08 HgA1C , Office (80766) HgA1C , Office 5.4 % (Normal) Range: 4.6 - 7.1 :08 Blood Glucose , Office (65102) Blood Glucose , Office 128 (Normal) :21 Rapid Flu (91076 x 2) Influenza A Ag negative (Normal) :07 URINE SHERITA CULTURE-DENISE COL Comments: PERFORMED BY: LabCoEast Orange General HospitalWrqojz0618 [facility] [id number] Information: SRC:UR COUNT (45473) Antimicrobial MIHEAD (Normal) Comments: S = Susceptible; I = Intermediate; R = Resistant P = Positive; N = Negative MICS are expressed in micrograms per mL Antibiotic RSLT#1 RSLT#2 RS Susceptibility LT#3 RSLT#4Amoxicillin/Clavulanic Acid RAmpicillin RCefazolin RCefepime RCeftriaxone RCefuroxime RCephalothin RCiprofloxacin R SErtapenem SGentamicin SImipenem SLevofloxacin R SNitrofurantoin I SPenicillin SPiperacillin RTetracycline R RTobramycin RTrimethoprim/Sulfa RVancomycin S Result 2 Enterococcus faecalis Comments: 25,000-50,000 colony forming units per mLNote: this isolate is vancomycin-susceptible.This information is provided for epidemiologic purposes only:vancomycin is not among the antibiotics rec ommended for (Abnormal) therapyof urinary tract infections caused by Enterococcus.For Enterococcus species, cephalosporins, aminoglycosides (except forhigh-level resistance screening), clindamycin, and trimethoprim-sulfametho xazole are not effective clinically. Fluoroquinolones areused primarily for treating urinary tract infections. (CLSI, U215-L43,2009) Result 1 Escherichia coli Comments: 10,000-25,000 colony forming units per mL (Abnormal) Urine Final report Culture,Comprehensive (Abnormal) 2-Ivv-200128:35 Urinalysis, Office (64071) UA - LEUKOCYTE ESTERASE Trace (Normal) UA - NITRITE Negative (Normal) URINE UROBILINGN DENISE TIMED 2 mg/dL (Normal) UA - PROTEIN Negative mg/dL (Normal) UA - PH 6 (Abnormal) UA - BLOOD Hemolyzed Trace (Normal) UA - SPECIFIC GRAVITY 1.015 (Normal) UA - KETONES Negative mg/dL (Normal) UA - BILIRUBIN Negative (Normal) UA - GLUCOSE Negative (Normal) 72-Sro-818384:47 URINE SHERITA CULTURE (DENISE COL Comments: PERFORMED BY: [employer] [place] [id number] COUNT) (06133) Antimicrobial MIHEAD (Normal) Comments: S = Susceptible; I = Intermediate; R = Resistant P = Positive; N = Negative MICS are expressed in micrograms per mL Antibiotic RSLT#1 RSLT#2 RS Susceptibility LT#3 RSLT#4Amoxicillin/Clavulanic Acid RAmpicillin RCefazolin RCefepime SCeftriaxone SCefuroxime RCephalothin RCiprofloxacin SErtapenem SGentamicin SLevofloxacin SNitrofurantoin RPipera cillin STetracycline RTobramycin STrimethoprim/Sulfa S Result 1 Morganella morganii Comments: 2,000 Colonies/mL (Abnormal) Urine Final report Culture,Comprehensive (Abnormal) 32-Iev-178152:47 URINALYSIS (53451) Comments: PERFORMED BY: [facility]Nov[facility] [id number] Information: SRC:UR Microscopic Examination MICNIP (Normal) Comments: Microscopic not indicated and not performed. Nitrite, Urine Negative (Normal) Urobilinogen,Semi-Qn 0.2 mg/dL (Normal) Range: 0.2-1.0 Bilirubin Negative (Normal) Occult Blood Negative (Normal) Ketones Negative (Normal) Glucose Negative (Normal) Protein Negative (Normal) WBC Esterase Negative (Normal) Appearance Clear (Normal) Urine-Color Yellow (Normal) pH 6.0 (Normal) Range: 5.0-7.5 Specific [place] 1.012 (Normal) Range: 1.005-1.030 :35 Basic Metabolic Profile (BMP) Comments: 'TROP' Serial specimen #1, #2, #3, or #4: 1[facility] [address] [place], [place], [id number] GAP 9 (Normal) Range: 5-15 CO2 31.0 mmol/L (Normal) Range: 21.0-32.0 CL 99 mmol/L (Normal) Range: 98-107 K 3.3 mmol/L (Abnormal) Range: 3.5-5.1 NA 139 mmol/L (Normal) Range: 136-145 CA 8.9 mg/dL (Normal) Range: 8.5-10.1 BUN/CRE 11.1 {RATIO} (Normal) Range: 10-20 Estimated CRCL 68.04 ml/min (Normal) EST GFR - AA 86 mL/min (Normal) Comments: GFR Calc EST GFR 71 mL/min (Normal) Comments: Non- GFR Calc CREAT,SERUM 0.90 mg/dL (Normal) Range: 0.55-1.02 Comments: The validity of the calculated GFR AND GFRAA in patients over70 years has not been determined. Clinical correlation isessential. BUN 10 mg/dL (Normal) Range: 7-18 GLU 186 mg/dL (Abnormal) Range: 70-110 Comments: Fasting Glucose result greater than or equal to 126 mg/dLsuggests DIABETES MELLITUS per A.D.A. criteria. :35 CBC W/Diff, Automated Comments: [facility] [address] [place], [place], [id number] Absolute Lymph 2.00 {X10_3/ul} (Normal) Range: 0.83-4.51 Absolute Neut 4.8 {X10_3/uL} (Normal) Range: 2.0-7.7 IM GRAN % 0.100 % (Normal) Range: 0.0-0.9 Comments: IG% - Immature Granulocytes (promyelocytes, myelocytes andmetamyelocytes) > 1% indicates that a LEFT SHIFT is Present. BASO% 0.3 % (Normal) Range: 0-1 EO% 4.8 % (Normal) Range: 0-5 MONO% 8.1 % (Normal) Range: 0-10 LY% 25.4 % (Normal) Range: 19-41 NEUT% 61.3 % (Normal) Range: 47-70 MPV 10.1 fL (Normal) Range: 6.2-12.0 PLT 207 K/mm3 (Normal) Range: 150-450 RDW SD 42.3 fL (Normal) Range: 35.1-43.9 RDW CV 12.5 % (Normal) Range: 11.6-14.6 MCHC 32.5 {g/gl} (Normal) Range: 32-36 MCH 30.2 pg (Normal) Range: 27.0-32.0 MCV 93.0 fL (Normal) Range: 81-99 HCT 44.0 % (Normal) Range: 37-47 HGB 14.3 g/dL (Normal) Range: 12.0-15.0 RBC 4.73 {M/mm3} (Normal) Range: 4.2-5.4 WBC 7.9 K/mm3 (Normal) Range: 4.4-11.0 04-Psg-657786:35 Troponin-I Comments: 'TROP' Serial specimen #1, #2, #3, or #4: 1[facility] [address] [place], [address] TROPONIN-I < 0.02 ng/mL (Normal) Comments: TROPONIN-I EXPECTED VALUES <0.05 NEGATIVE 0.06 - 0.59 AT RISK OF WI > OR = 0.60 SUGGEST WI 77-Xnd-918172:45 Comprehensive Metabolic Profil Comments: Comments: PT.TAKING SULFAMETHOXAZOLE, SAID THE LABEL COULD AFFECT RESULTSDunlap Memorial Hospital Tdosglxauo[address] [place], [address] GAP 9 (Normal) Range: 5-15 CO2 30.0 mmol/L (Normal) Range: 21.0-32.0 CL 97 mmol/L (Abnormal) Range: 98-107 K 3.6 mmol/L (Normal) Range: 3.5-5.1 NA 136 mmol/L (Normal) Range: 136-145 T BILI 0.70 mg/dL (Normal) Range: 0.20-1.00 ALT 52 U/L (Normal) Range: 12-78 ALK P 82 U/L (Normal) Range: 45-117 AST 31 U/L (Normal) Range: 15-37 CA 8.8 mg/dL (Normal) Range: 8.5-10.1 A/G 0.8 {RATIO} (Abnormal) Range: 0.9-2.4 GLOB 4.4 g/dL (Abnormal) Range: 2.3-3.5 ALB 3.4 g/dL (Normal) Range: 3.4-5.0 T PROT 7.8 g/dL (Normal) Range: 6.4-8.2 BUN/CRE 10.7 {RATIO} (Normal) Range: 10-20 EST GFR - AA 92 mL/min (Normal) Comments: GFR Calc EST GFR 76 mL/min (Normal) Comments: Non- GFR Calc CREAT,SERUM 0.84 mg/dL (Normal) Range: 0.55-1.02 Comments: The validity of the calculated GFR AND GFRAA in patients over70 years has not been determined. Clinical correlation isessential. BUN 9 mg/dL (Normal) Range: 7-18 GLU 104 mg/dL (Normal) Range: 70-110 :42 HGB A1C (72809) Comments: PATIENT NOT FASTINGPERFORMED BY: [facility]entNov[facility] [id number] Hemoglobin A1c 6.8 % (Abnormal) Range: 4.8-5.6 Comments: . Pre-diabetes: 5.7 - 6.4 Diabetes: >6.4 Glycemic control for adults with diabetes: <7.0 :42 SED RATE ERYTHROCYTE (43079) Comments: PATIENT NOT FASTINGPERFORMED BY: Youca.st70 Tech CocktailNovant Health Forsy[facility] Center [id number] Sedimentation Rate-Westergren 15 mm/h (Normal) Range: 0-32 :42 C-REACTIVE PROTEIN (27214) Comments: PATIENT NOT FASTINGPERFORMED BY: [employer]st70 [facility] [id number] C-Reactive Protein, Quant 15.5 mg/L (Abnormal) Range: 0.0-4.9 :42 TSH (41863) Comments: PATIENT NOT FASTINGPERFORMED BY: WomensforumEast Orange General HospitalVnsgud3067 [facility] [id number] TSH 2.870 {uIU/mL} (Normal) Range: 0.450-4.500 :42 METABOLIC PANEL, COMPREHENSIVE Comments: PATIENT NOT FASTINGPERFORMED BY: WomensforumEast Orange General HospitalWwaazt8694 [facility] [id number] (68461) ALT (SGPT) 51 [iU]/L (Abnormal) Range: 0-32 AST (SGOT) 39 [iU]/L (Normal) Range: 0-40 Alkaline Phosphatase, S 80 [iU]/L (Normal) Range: 39-117 Bilirubin, Total 0.6 mg/dL (Normal) Range: 0.0-1.2 A/G Ratio 1.4 (Normal) Range: 1.2-2.2 Globulin, Total 3.1 g/dL (Normal) Range: 1.5-4.5 Albumin, Serum 4.3 g/dL (Normal) Range: 3.5-5.5 Protein, Total, Serum 7.4 g/dL (Normal) Range: 6.0-8.5 Calcium, Serum 9.0 mg/dL (Normal) Range: 8.7-10.2 Carbon Dioxide, Total 26 mmol/L (Normal) Range: 18-29 Chloride, Serum 96 mmol/L (Normal) Range: 96-106 Potassium, Serum 3.9 mmol/L (Normal) Range: 3.5-5.2 Sodium, Serum 141 mmol/L (Normal) Range: 134-144 BUN/Creatinine Ratio 13 (Normal) Range: 9-23 eGFR If Africn Am 108 mL/min/1.73 (Normal) eGFR If NonAfricn Am 94 mL/min/1.73 (Normal) Creatinine, Serum 0.75 mg/dL (Normal) Range: 0.57-1.00 BUN 10 mg/dL (Normal) Range: 6-24 Glucose, Serum 95 mg/dL (Normal) Range: 65-99 :42 CBC W/AUTO DIFF WBC (54687) Comments: PATIENT NOT FASTINGPERFORMED BY: WomensforumEast Orange General HospitalGkwaea2210 [facility] [id number] Immature Grans (Abs) 0.0 {x10E3/uL} (Normal) Range: 0.0-0.1 Immature Granulocytes 0 % (Normal) Baso (Absolute) 0.0 {x10E3/uL} (Normal) Range: 0.0-0.2 Eos (Absolute) 0.3 {x10E3/uL} (Normal) Range: 0.0-0.4 Monocytes(Absolute) 1.1 {x10E3/uL} (Abnormal) Range: 0.1-0.9 Lymphs (Absolute) 3.0 {x10E3/uL} (Normal) Range: 0.7-3.1 Neutrophils (Absolute) 5.3 {x10E3/uL} (Normal) Range: 1.4-7.0 Basos 0 % (Normal) Eos 3 % (Normal) Monocytes 11 % (Normal) Lymphs 31 % (Normal) Neutrophils 55 % (Normal) Platelets 351 {x10E3/uL} (Normal) Range: 150-379 RDW 12.9 % (Normal) Range: 12.3-15.4 MCHC 33.5 g/dL (Normal) Range: 31.5-35.7 MCH 30.9 pg (Normal) Range: 26.6-33.0 MCV 92 fL (Normal) Range: 79-97 Hematocrit 34.6 % (Normal) Range: 34.0-46.6 Hemoglobin 11.6 g/dL (Normal) Range: 11.1-15.9 RBC 3.76 {x10E6/uL} (Abnormal) Range: 3.77-5.28 WBC 9.7 {x10E3/uL} (Normal) Range: 3.4-10.8 20-Sau-58148:22 PT (Prothrobim Time) (41124) Comments: PATIENT NOT FASTINGPERFORMED BY: LabCoEast Orange General HospitalUgvutr9806 [facility] [id number] Prothrombin Time 23.3 {sec} (Abnormal) Range: 9.1-12.0 INR 2.3 (Abnormal) Range: 0.8-1.2 Comments: Reference interval is for non-anticoagulated patients. . Suggested INR therapeutic range for Vitamin K anta gonist therapy: Standard Dose (moderate intensity therapeutic range): 2.0 - 3.0 Higher intensity therapeutic range 2.5 - 3.5 :36 PT (Prothrobim Time) (91661) Comments: PATIENT NOT FASTINGPERFORMED BY: [facility]6370 [facility] [id number] Prothrombin Time 25.8 {sec} (Abnormal) Range: 9.1-12.0 INR 2.5 (Abnormal) Range: 0.8-1.2 Comments: Reference interval is for non-anticoagulated patients. . Suggested INR therapeutic range for Vitamin K anta gonist therapy: Standard Dose (moderate intensity therapeutic range): 2.0 - 3.0 Higher intensity therapeutic range 2.5 - 3.5 79-Nqm-997035:27 PT (Prothrobim Time) (74452) Comments: PATIENT NOT FASTINGPERFORMED BY: [facility]6370 [facility] [id number] Prothrombin Time 22.3 {sec} (Abnormal) Range: 9.1-12.0 INR 2.2 (Abnormal) Range: 0.8-1.2 Comments: Reference interval is for non-anticoagulated patients. . Suggested INR therapeutic range for Vitamin K anta gonist therapy: Standard Dose (moderate intensity therapeutic range): 2.0 - 3.0 Higher intensity therapeutic range 2.5 - 3.5 43-Cdy-032381:05 CBC-Complete Blood Cnt No Diff Comments: [facility] [address] [place], [address] MPV 10.2 fL (Normal) Range: 6.2-12.0 PLT 246 K/mm3 (Normal) Range: 150-450 RDW SD 43.0 fL (Normal) Range: 35.1-43.9 RDW CV 12.8 % (Normal) Range: 11.6-14.6 MCHC 33.1 {g/gl} (Normal) Range: 32-36 MCH 30.8 pg (Normal) Range: 27.0-32.0 MCV 93.1 fL (Normal) Range: 81-99 HCT 44.4 % (Normal) Range: 37-47 HGB 14.7 g/dL (Normal) Range: 12.0-15.0 RBC 4.77 {M/mm3} (Normal) Range: 4.2-5.4 WBC 6.9 K/mm3 (Normal) Range: 4.4-11.0 :24 PT (Prothrobim Time) (88117) Comments: PATIENT NOT FASTINGPERFORMED BY: [facility]6370 [facility] [id number] Prothrombin Time 20.6 {sec} (Abnormal) Range: 9.1-12.0 INR 2.0 (Abnormal) Range: 0.8-1.2 Comments: Reference interval is for non-anticoagulated patients. . Suggested INR therapeutic range for Vitamin K anta gonist therapy: Standard Dose (moderate intensity therapeutic range): 2.0 - 3.0 Higher intensity therapeutic range 2.5 - 3.5 :42 PT (Prothrobim Time) (08803) Comments: PATIENT NOT FASTINGPERFORMED BY: [facility]6370 [facility] [id number] Prothrombin Time 20.0 {sec} (Abnormal) Range: 9.1-12.0 INR 2.0 (Abnormal) Range: 0.8-1.2 Comments: Reference interval is for non-anticoagulated patients. . Suggested INR therapeutic range for Vitamin K anta gonist therapy: Standard Dose (moderate intensity therapeutic range): 2.0 - 3.0 Higher intensity therapeutic range 2.5 - 3.5 :38 PT (Prothrobim Time) (60068) Comments: PATIENT NOT FASTINGPERFORMED BY: [facility]6370 [facility] [id number] Prothrombin Time 19.4 {sec} (Abnormal) Range: 9.1-12.0 INR 1.9 (Abnormal) Range: 0.8-1.2 Comments: Reference interval is for non-anticoagulated patients. . Suggested INR therapeutic range for Vitamin K anta gonist therapy: Standard Dose (moderate intensity therapeutic range): 2.0 - 3.0 Higher intensity therapeutic range 2.5 - 3.5 82-Fqw-752505:07 PT (Prothrobim Time) (58778) Comments: PATIENT NOT FASTINGPERFORMED BY: [place] 7281970 [facility] [id number] Prothrombin Time 18.9 {sec} (Abnormal) Range: 9.1-12.0 INR 1.8 (Abnormal) Range: 0.8-1.2 Comments: Reference interval is for non-anticoagulated patients. . Suggested INR therapeutic range for Vitamin K anta gonist therapy: Standard Dose (moderate intensity therapeutic range): 2.0 - 3.0 Higher intensity therapeutic range 2.5 - 3.5 :40 PT (Prothrobim Time) (85516) Comments: PATIENT NOT FASTINGPERFORMED BY: [facility]6370 [facility] [id number] Prothrombin Time 21.4 {sec} (Abnormal) Range: 9.1-12.0 INR 2.1 (Abnormal) Range: 0.8-1.2 Comments: Reference interval is for non-anticoagulated patients. . Suggested INR therapeutic range for Vitamin K anta gonist therapy: Standard Dose (moderate intensity therapeutic range): 2.0 - 3.0 Higher intensity therapeutic range 2.5 - 3.5 :18 PT (Prothrobim Time) (32676) Comments: PATIENT NOT FASTINGPERFORMED BY: [facility] [id number] Prothrombin Time 18.6 {sec} (Abnormal) Range: 9.1-12.0 INR 1.8 (Abnormal) Range: 0.8-1.2 Comments: Reference interval is for non-anticoagulated patients. . Suggested INR therapeutic range for Vitamin K anta gonist therapy: Standard Dose (moderate intensity therapeutic range): 2.0 - 3.0 Higher intensity therapeutic range 2.5 - 3.5 42-Ozz-915897:03 PT (Prothrobim Time) (31120) Comments: PATIENT NOT FASTINGPERFORMED BY: [facility]6370 [facility] [id number] Prothrombin Time 23.6 {sec} (Abnormal) Range: 9.1-12.0 INR 2.3 (Abnormal) Range: 0.8-1.2 Comments: Reference interval is for non-anticoagulated patients. . Suggested INR therapeutic range for Vitamin K anta gonist therapy: Standard Dose (moderate intensity therapeutic range): 2.0 - 3.0 Higher intensity therapeutic range 2.5 - 3.5 :49 PT (Prothrobim Time) (49601) Comments: PATIENT NOT FASTINGPERFORMED BY: [facility]6370 [facility] [id number] Prothrombin Time 24.7 {sec} (Abnormal) Range: 9.1-12.0 INR 2.4 (Abnormal) Range: 0.8-1.2 Comments: Reference interval is for non-anticoagulated patients. . Suggested INR therapeutic range for Vitamin K anta gonist therapy: Standard Dose (moderate intensity therapeutic range): 2.0 - 3.0 Higher intensity therapeutic range 2.5 - 3.5 :34 PT (Prothrobim Time) (69783) Comments: PATIENT NOT FASTINGPERFORMED BY: [facility]6370 [facility] [id number] Prothrombin Time 23.1 {sec} (Abnormal) Range: 9.1-12.0 INR 2.3 (Abnormal) Range: 0.8-1.2 Comments: Reference interval is for non-anticoagulated patients. . Suggested INR therapeutic range for Vitamin K anta gonist therapy: Standard Dose (moderate intensity therapeutic range): 2.0 - 3.0 Higher intensity therapeutic range 2.5 - 3.5 :26 PT (Prothrobim Time) (10165) Comments: PATIENT NOT FASTINGPERFORMED BY: [facility] [id number] Prothrombin Time 14.3 {sec} (Abnormal) Range: 9.1-12.0 INR 1.4 (Abnormal) Range: 0.8-1.2 Comments: Reference interval is for non-anticoagulated patients. . Suggested INR therapeutic range for Vitamin K anta gonist therapy: Standard Dose (moderate intensity therapeutic range): 2.0 - 3.0 Higher intensity therapeutic range 2.5 - 3.5 7-Miy-420876:31 Prothrombin Time w/INR Comments: Order Date: 08/03/16Order Info: [id number] - PTComments: STATOrder Date: 08/03/16Order Info: [id number] - PTComments: STATOrder Date: 08/03/16Order Info: [id number] - PTComments: [facility] fqsaqtvyl[address] [place], [id number] INR 2.2 (Normal) PROTIME 24.1 s (Abnormal) Range: 11.7-14.9 3-Kqa-842157:05 PT (Prothrobim Time) (64673) Comments: PATIENT NOT FASTINGPERFORMED BY: [facility] Omlwyd3528 [facility] [id number] Prothrombin Time 10.4 {sec} (Normal) Range: 9.1-12.0 INR 1.0 (Normal) Range: 0.8-1.2 Comments: Reference interval is for non-anticoagulated patients. . Suggested INR therapeutic range for Vitamin K anta gonist therapy: Standard Dose (moderate intensity therapeutic range): 2.0 - 3.0 Higher intensity therapeutic range 2.5 - 3.5 98-Ftn-739513:30 Urinalysis, Complete Comments: How was Urine Obtained? CLEAN [facility] Ist[address]unrsq[address] [place], [place], [id number] MUCUS, URINE 1+ {/hpf} (Normal) BACTERIA 0 SEEN {/hpf} (Normal) SQUAM EPI 0-5 SEEN {/hpf} (Normal) Range: 5-10 RBC-UA 0 SEEN {/hpf} (Normal) Range: 0-5 WBC 0-5 SEEN {/hpf} (Normal) Range: 0-5 LEUK ESTERASE Negative /ul (Normal) OCCULT BLOOD-UR Negative /ul (Normal) NITRITE UR Negative (Normal) UROBILI Normal mg/dL (Normal) PROT DIPSTX Negative mg/dL (Normal) pH UR 5.0 (Normal) Range: 5.0 - 8.0 SP.GR. DIPSTX 1.015 (Normal) Range: 1.002-1.030 KETONE UR Negative mg/dL (Normal) BILIRUBIN URINE Negative mg/dL (Normal) GLUCOSE, UR Normal mg/dL (Normal) CLARITY Sl. Cloudy (Normal) COLOR Yellow (Normal) [id number] Basic Metabolic Profile (BMP) Comments: 'TROP' Serial specimen #1, #2, #3, or #4: [facility] [id number] [place], [address] GAP 7 (Normal) Range: 5-15 CO2 31.0 mmol/L (Normal) Range: 21.0-32.0 CL 100 mmol/L (Normal) Range: 98-107 K 3.6 mmol/L (Normal) Range: 3.5-5.1 NA 138 mmol/L (Normal) Range: 136-145 CA 8.3 mg/dL (Abnormal) Range: 8.5-10.1 BUN/CRE 15.7 {RATIO} (Normal) Range: 10-20 Estimated CRCL 81.46 ml/min (Normal) EST GFR - AA 104 mL/min (Normal) Comments: GFR Calc EST GFR 86 mL/min (Normal) Comments: Non- GFR Calc CREAT,SERUM 0.76 mg/dL (Normal) Range: 0.55-1.02 Comments: The validity of the calculated GFR AND GFRAA in patients over70 years has not been determined. Clinical correlation isessential. BUN 12 mg/dL (Normal) Range: 7-18 GLU 117 mg/dL (Abnormal) Range: 70-110 Comments: Fasting Glucose result from 110 to <126 mg/dLsuggests IMPAIRED HOMEOSTASIS per A.D.A. criteria. 91-Tgp-685282:15 BNP,B-Type NATRIURETIC PEPTIDE Comments: [facility] [address] [place], [address] B-TYPE HALEY PEP < 2.0 pg/mL (Normal) Range: 0-100 74-Ltv-577948:15 CBC W/Diff, Automated Comments: [facility] [address] [place], [address] MACROCYTE RARE (Normal) ANISO RARE (Normal) PLT EST ADEQUATE (Normal) SMEAR COMMENT (Normal) Comments: LYMPHOPENIA NOTED Absolute Lymph 0.55 {X10_3/ul} (Abnormal) Range: 0.83-4.51 Absolute Neut 6.0 {X10_3/uL} (Normal) Range: 2.0-7.7 IM GRAN % 0.300 % (Normal) Range: 0.0-0.9 Comments: IG% - Immature Granulocytes (promyelocytes, myelocytes andmetamyelocytes) > 1% indicates that a LEFT SHIFT is Present. BASO% 0.0 % (Normal) Range: 0-1 EO% 1.0 % (Normal) Range: 0-5 MONO% 6.0 % (Normal) Range: 0-10 LY% 7.8 % (Abnormal) Range: 19-41 NEUT% 84.9 % (Abnormal) Range: 47-70 MPV 10.3 fL (Normal) Range: 6.2-12.0 PLT 214 K/mm3 (Normal) Range: 150-450 RDW SD 41.6 fL (Normal) Range: 35.1-43.9 RDW CV 12.6 % (Normal) Range: 11.6-14.6 MCHC 33.9 {g/gl} (Normal) Range: 32-36 MCH 31.3 pg (Normal) Range: 27.0-32.0 MCV 92.6 fL (Normal) Range: 81-99 HCT 44.9 % (Normal) Range: 37-47 HGB 15.2 g/dL (Abnormal) Range: 12.0-15.0 RBC 4.85 {M/mm3} (Normal) Range: 4.2-5.4 WBC 7.0 K/mm3 (Normal) Range: 4.4-11.0 26-Vwp-049369:15 Troponin-I Comments: 'TROP' Serial specimen #1, #2, #3, or #4: [address] [place] [address] [address] [place], [place], [id number] TROPONIN-I < 0.02 ng/mL (Normal) Comments: TROPONIN-I EXPECTED VALUES <0.05 NEGATIVE 0.06 - 0.59 AT RISK OF WI > OR = 0.60 SUGGEST WI 97-Rob-503766:15 PAP I-G w/rfx hrHPV Comments: CYTOLOGY INFORMATION:- CLINICAL INFORMATION: HYSTERECTOMY- DATE LMP/MENOPAUSE:- COLLECTION VIAL: Thin Prep 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 of contai ners..01 CYTYC Thin Prep VialLabCorp (refer to report for specific site)refer to report for address and phone number HPV RFLX Comment (Normal) Comments: The HPV DNA reflex criteria were not met with this specimenresult therefore, no HPV testing was performed.Performed at: [address] [id number] Director: Che Nicole MD, Phone: [phone] PAPSMR Comment (Normal) Comments: The Pap smear is a screening test designed to aid in thedetection of premalignant and malignant conditions of theuterine cervix. It is not a diagnostic procedure andshould not be used as the sole means of detecting cervicalcancer. Both false-positive and false-negative reports dooccur. COMM . (Normal) TEST METHOD Comment (Normal) Comments: This liquid based ThinPrep(R) pap test was screened withthe use of an image guided system. PERFORM Comment (Normal) Comments: Arminda Lopez, Medical Office Specialist (ASCP) ADEQ Comment (Normal) Comments: Satisfactory for evaluation. Endocervical and/or squamous metaplasticcells (endocervical component) are present. DIAGN Comment (Normal) Comments: NEGATIVE FOR INTRAEPITHELIAL LESION AND MALIGNANCY. 65-Ism-443795:10 Basic Metabolic Profile (BMP) Comments: [facility] [address] [place], [address] GAP 7 (Normal) Range: 5-15 CO2 28.0 mmol/L (Normal) Range: 21.0-32.0 CL 105 mmol/L (Normal) Range: 98-107 K 3.8 mmol/L (Normal) Range: 3.5-5.1 NA 140 mmol/L (Normal) Range: 136-145 CA 8.4 mg/dL (Abnormal) Range: 8.5-10.1 BUN/CRE 18.0 {RATIO} (Normal) Range: 10-20 EST GFR - AA 134 mL/min (Normal) Comments: GFR Calc EST GFR 111 mL/min (Normal) Comments: Non- GFR Calc CREAT,SERUM 0.61 mg/dL (Normal) Range: 0.55-1.02 Comments: The validity of the calculated GFR AND GFRAA in patients over70 years has not been determined. Clinical correlation isessential. BUN 11 mg/dL (Normal) Range: 7-18 GLU 115 mg/dL (Abnormal) Range: 70-110 Comments: Fasting Glucose result from 110 to <126 mg/dLsuggests IMPAIRED HOMEOSTASIS per A.D.A. criteria. :29 BNP,B-Type NATRIURETIC PEPTIDE Comments: [facility] [address] [place], [address] B-TYPE HALEY PEP 4.2 pg/mL (Normal) Range: 0-100 :36 Troponin I (00499) Comments: PATIENT NOT FASTINGPERFORMED BY: Youca.st70 [facility] [id number] BY: [employer] [id number] Troponin I <0.01 ng/mL (Normal) Range: 0.00-0.04 50-Pyj-719109:36 BNTP (87286) Comments: PATIENT NOT FASTINGPERFORMED BY: [employer].st70 [facility] [id number] BY: [employer] [address] [id number] B-Type Natriuretic Peptide 5.5 pg/mL (Normal) Range: 0.0-100.0 :36 UPEP (24554) Comments: PATIENT NOT FASTINGPERFORMED BY: [employer].st70 [facility] [id number] BY: [employer] [address] [id number] Please note: SPRCS (Normal) Comments: Protein electrophoresis scan will follow via computer, mail, orcourier delivery. M-Stanley, % Not Observed % (Normal) Gamma Globulin, U 16.5 % (Normal) Beta Globulin, U 29.9 % (Normal) Bgvxl-0-Kbkctzin, U 22.4 % (Normal) Mhlho-7-Obqdoewx, U 6.5 % (Normal) Albumin, U 24.7 % (Normal) Protein,Total,Urine 9.6 mg/dL (Normal) 79-Hyk-826953:36 SPEP (91659) Comments: PATIENT NOT FASTINGPERFORMED BY: [employer] [facility] [id number] BY: [employer] [id number] Please note: SPRCS (Normal) Comments: Protein electrophoresis scan will follow via computer, mail, orcourier delivery. A/G Ratio 0.9 (Normal) Range: 0.7-1.7 Globulin, Total 3.6 g/dL (Normal) Range: 2.2-3.9 M-Stanley Not Observed g/dL (Normal) Gamma Globulin 1.5 g/dL (Normal) Range: 0.4-1.8 Beta Globulin 1.2 g/dL (Normal) Range: 0.7-1.3 Pszrr-0-Jikvpffc 0.7 g/dL (Normal) Range: 0.4-1.0 Dhcgt-0-Inhyymkp 0.2 g/dL (Normal) Range: 0.0-0.4 Albumin 3.4 g/dL (Normal) Range: 2.9-4.4 Protein, Total, Serum 7.0 g/dL (Normal) Range: 6.0-8.5 15-Ytb-781918:36 CCP ANTIBODY (42404) Comments: PATIENT NOT FASTINGPERFORMED BY: [employer] Corporationlin6370 [facility] [id number] BY: [employer] [id number] CCP Antibodies IgG/IgA 6 {units} (Normal) Range: 0-19 Comments: Negative <20 Weak positive 20 - 39 Moderate positive 40 - 59 Strong positive >59 62-Tzz-770870:36 RHEUMATOID FACTOR-QUANT Comments: PATIENT NOT FASTINGPERFORMED BY: [facility] DreamEast [facility] HospitalHmpjhf[address] [place] [address] [id number] BY: [employer] [id number] (16347) RA Latex Turbid. 14.7 {IU/mL} (Abnormal) Range: 0.0-13.9 32-Khf-331952:36 REYNALDO (ANTINUCLEAR ANTIBODY) Comments: PATIENT NOT FASTINGPERFORMED BY: LabJennifer [place] [id number] [facility] [id number] BY: [address] [id number] ([address]687) REYNALDO Direct Negative (Normal) :36 SJOGREN ANTIBOIDIES Comments: PATIENT NOT FASTINGPERFORMED BY: Lab[address] [id number] BY: [address] [id number] (ANTI-SS-A/ANTI-SS-B) (98211) Sjogren's Anti-SS-B <0.2 {AI} (Normal) Range: 0.0-0.9 Sjogren's Anti-SS-A <0.2 {AI} (Normal) Range: 0.0-0.9 :31 SPEP (41393) Comments: PATIENT NOT FASTINGPERFORMED BY: [place] [id number] [facility] [id number] Please note: SPRCS (Normal) Comments: Protein electrophoresis scan will follow via computer, mail, orcourier delivery. A/G Ratio 0.9 (Normal) Range: 0.7-1.7 Globulin, Total 3.6 g/dL (Normal) Range: 2.2-3.9 M-Stanley Not Observed g/dL (Normal) Gamma Globulin 1.4 g/dL (Normal) Range: 0.4-1.8 Beta Globulin 1.2 g/dL (Normal) Range: 0.7-1.3 Mbqaa-9-Wdcfamtg 0.7 g/dL (Normal) Range: 0.4-1.0 Mwbzt-3-Ugqfvxzs 0.3 g/dL (Normal) Range: 0.0-0.4 Albumin 3.4 g/dL (Normal) Range: 2.9-4.4 Protein, Total, Serum 7.0 g/dL (Normal) Range: 6.0-8.5 :31 UP (30523) Comments: PATIENT NOT FASTINGPERFORMED BY: [facility] [address] [place] [id number] Please note: SPRCS (Normal) Comments: Protein electrophoresis scan will follow via computer, mail, orcourier delivery. M-Stanley, % Not Observed % (Normal) Gamma Globulin, U 18.0 % (Normal) Beta Globulin, U 32.7 % (Normal) Mpbrj-4-Enokwdqw, U 22.3 % (Normal) Cmfzy-5-Zgyqioio, U 11.7 % (Normal) Albumin, U 15.4 % (Normal) Protein,Total,Urine 5.1 mg/dL (Normal) :25 CDIFF (Molecular) Comments: [address] [place], [address] CDIFF See Note (Normal) Comments: Cdiff-MolecularC. Diff DNA Negative- No toxigenic C. Diff DNA Detected :25 ENTERIC PATHOGEN PANEL STOOL Comments: [address], [address] EP PANEL See Note (Normal) Comments: EP PANEL STOOLNot detected for Campylobacter group, Salmonella species, Shigella species, Vibrio Group, Yersinia enterocolitica, EHEC (Shiga Toxin 1, Shiga Toxin 2), Norovirus Gl/Gll, and Ro tavirus A. Other common stool pathogens are not detected on this panel include: Aeromonas/Plesiomonas or parasites. Order testing for these organisms separately if suspected. This is an amplified DNA test which makes it both specific and sensitive. CAMPYLOBACTER Not DetectedSalmonella Not DetectedShigella sp. Not DetectedShiga Toxin Not Dete ctedYersinia Not DetectedVIBRIO Not DetectedNorovirus Not DetectedRotavirus Not Detected :25 Ova and Parasites 8623 Comments: [address], [address] OP See Note Comments: O + P 8623OVA AND PARASITES EXAM, ROUTINE These results were obtained using wet preparation(s) and trichrome stained smear. This test does not include testing for Crytosporidium parvum, C (Normal) yclospora, or Microsporidia. TESTING PERFORMED AT [facility]. ORIGINAL REPORT ON FILE IN LAB CONTAINS ADDITIONAL TEST SITE INFORMATION. ____ Ova/Parasite Exam NO OVA, CYSTS, OR PARASITES FOUND. :25 Stool Lactoferrin/WBC Comments: [address] [place], [address] ; will review on 03/19 WBCST See Note (Normal) Comments: Stool Lacto/WBCFecal WBC Lactoferrin Negative: No Fecal WBC Lactoferrin present :25 Stool Occult Blood iFOB Comments: [address] [place], [address] STOB See Note (Normal) Comments: STOB iFOBOccult Blood Negative :25 Amylase Comments: [address] [place] [place], [address] [address]HA 28 U/L (Normal) Range: 25-115 :25 BNP,B-Type NATRIURETIC PEPTIDE Comments: [address] [place], [address] B-TYPE HALEY PEP 3.8 pg/mL (Normal) Range: 0-100 :25 CBC W/Diff, Automated Comments: [address] [place], [address] Absolute Lymph 1.54 {X10_3/ul} (Normal) Range: 0.83-4.51 Absolute Neut 4.7 {X10_3/uL} (Normal) Range: 2.0-7.7 IM GRAN % 0.100 % (Normal) Range: 0.0-0.9 Comments: IG% - Immature Granulocytes (promyelocytes, myelocytes andmetamyelocytes) > 1% indicates that a LEFT SHIFT is Present. BASO% 0.1 % (Normal) Range: 0-1 EO% 4.0 % (Normal) Range: 0-5 MONO% 9.4 % (Normal) Range: 0-10 LY% 21.4 % (Normal) Range: 19-41 NEUT% 65.0 % (Normal) Range: 47-70 MPV 9.9 fL (Normal) Range: 6.2-12.0 PLT 233 K/mm3 (Normal) Range: 150-450 RDW SD 43.3 fL (Normal) Range: 35.1-43.9 RDW CV 12.5 % (Normal) Range: 11.6-14.6 MCHC 32.5 {g/gl} (Normal) Range: 32-36 MCH 30.6 pg (Normal) Range: 27.0-32.0 MCV 94.2 fL (Normal) Range: 81-99 HCT 45.6 % (Normal) Range: 37-47 HGB 14.8 g/dL (Normal) Range: 12.0-15.0 RBC 4.84 {M/mm3} (Normal) Range: 4.2-5.4 WBC 7.2 K/mm3 (Normal) Range: 4.4-11.0 45-Pkz-08353:25 Comprehensive Metabolic Profil Comments: [facility] [address] [place], [place], [id number] GAP 7 (Normal) Range: 5-15 CO2 30.0 mmol/L (Normal) Range: 21.0-32.0 CL 99 mmol/L (Normal) Range: 98-107 K 3.8 mmol/L (Normal) Range: 3.5-5.1 NA 136 mmol/L (Normal) Range: 136-145 T BILI 0.70 mg/dL (Normal) Range: 0.20-1.00 ALT 47 U/L (Normal) Range: 12-78 ALK P 79 U/L (Normal) Range: 50-136 AST 29 U/L (Normal) Range: 15-37 CA 8.5 mg/dL (Normal) Range: 8.5-10.1 A/G 0.8 {RATIO} (Abnormal) Range: 0.9-2.4 GLOB 4.3 g/dL (Abnormal) Range: 2.3-3.5 ALB 3.4 g/dL (Normal) Range: 3.4-5.0 T PROT 7.7 g/dL (Normal) Range: 6.4-8.2 BUN/CRE 18.5 {RATIO} (Normal) Range: 10-20 EST GFR - AA 105 mL/min (Normal) Comments: GFR Calc EST GFR 87 mL/min (Normal) Comments: Non- GFR Calc CREAT,SERUM 0.76 mg/dL (Normal) Range: 0.55-1.20 Comments: The validity of the calculated GFR AND GFRAA in patients over70 years has not been determined. Clinical correlation isessential. BUN 14 mg/dL (Normal) Range: 7-18 GLU 120 mg/dL (Abnormal) Range: 70-110 Comments: Fasting Glucose result from 110 to <126 mg/dLsuggests IMPAIRED HOMEOSTASIS per A.D.A. criteria. :25 D-Dimer Quantitative (DVT/PE) Comments: [facility] [address] [place], [place], [id number] D-DIMER QUANT < 0.27 {FEU/ug/m} (Abnormal) Range: 0.27-0.49 Comments: NORMAL D-Dimer level (<0.50) indicates no DVT or PE. :25 Lipase Comments: [facility] [address] [place], [place], [id number] LIPASE 109 U/L (Normal) Range: 73-393 :25 Lipid Profile Comments: [facility] [address] [place], [place], [address] VLDL 25 mg/dL (Normal) Range: 5-40 LDL 97 mg/dL (Normal) Range: 0-130 HDL 41 mg/dL (Normal) Comments: The drugs N-Acetylcysteine and Metamizole may falsely deressthis assay. Reference Range HDL <40 mg/dL Low HDL Cholesterol HDL >or= 60 mg/dL High HDL Cholesterol TRIG 127 mg/dL (Normal) Comments: The drugs N-Acetylcysteine and Metamizole may falsely deressthis assay.Serum Triglycerides Reference Interval Normal <150 mg/dL Borderline high 150 - 199 mg/dL High 200 - 499 mg/dL Very High > or = 500 mg/dL CHOL 163 mg/dL (Normal) Comments: <200 mg/dL Desirable 200-240 mg/dL Borderline >240 mg/dL High Risk :25 Thyroid Stim Hormone (TSH) Comments: [facility] [address] [place], [id number] TSH 3.44 {uIU/mL} (Normal) Range: 0.358-3.74 :25 Vitamin D,25 Hydroxy Comments: [facility] [address] [place], [id number] Vitamin D 25-OH 24.7 ng/mL (Normal) Comments: Vitamin D 25(OH) Status Range Deficiency <20 ng/mL (50nmol/L) Insuffciency 20 - 30 ng/mL (50 - 75 nmol/L) Sufficiency 30 - 100 ng/mL (75 - 250 nmol/L) Toxicity >100 ng/mL (>250 nmol/L) 69-Rhn-031014:02 PT (Prothrobim Time) Comments: PATIENT NOT FASTINGPERFORMED BY: [facility] Xfwuow9725 [facility] [id number] Information: [id number] ([id number]) Prothrombin Time 28.4 {sec} (Abnormal) Range: 9.1-12.0 INR 2.6 (Abnormal) Range: 0.8-1.2 Comments: Reference interval is for non-anticoagulated patients. . 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 of containers..01 CYTYC Thin Prep VialTest performed at:[facility] [address] [place], [place] [address] HPV RFLX Comment (Normal) Comments: The HPV DNA reflex criteria were not met with this specimenresult therefore, no HPV testing was performed.Performed at: [address] [id number] Director: Jesse Alejo MD, Phone: [phone] PAPSMR Comment (Normal) Comments: The Pap smear is a screening test designed to aid in thedetection of premalignant and malignant conditions of theuterine cervix. It is not a diagnostic procedure andshould not be used as the sole means of detecting cervicalcancer. Both false-positive and false-negative reports dooccur. COMM . (Normal) TEST METHOD Comment (Normal) Comments: This liquid based ThinPrep(R) pap test was screened withthe use of an image guided system. PERFORM Comment (Normal) Comments: Alfa Sanchez, Medical Office Specialist (ASCP) ADEQ Comment (Normal) Comments: Satisfactory for evaluation. No endocervical component is identified. DIAGN Comment (Normal) Comments: NEGATIVE FOR INTRAEPITHELIAL LESION AND MALIGNANCY. 28-Dec-20140:23 Urinalysis, Complete Comments: Order Date: 12/28/14How was Urine Obtained? BI LEAD TO SPECIFYTest performed at:[facility] [address] [place], [place] [id number] MUCUS, URINE 1+ {/hpf} (Normal) BACTERIA 0 SEEN {/hpf} (Normal) SQUAM EPI 5-10 SEEN {/hpf} (Normal) Range: 5-10 RBC-UA 0 SEEN {/hpf} (Normal) Range: 0-5 WBC 0-5 SEEN {/hpf} (Normal) Range: 0-5 LEUK ESTERASE 25 /ul (Abnormal) OCCULT BLOOD-UR Negative /ul (Normal) NITRITE UR Negative (Normal) UROBILI Normal mg/dL (Normal) PROT DIPSTX Negative mg/dL (Normal) pH UR 5.0 (Normal) Range: 5.0 - 8.0 SP.GR. DIPSTX 1.015 (Normal) Range: 1.002-1.030 KETONE UR 5 mg/dL (Abnormal) BILIRUBIN URINE Negative mg/dL (Normal) GLUCOSE, UR Normal mg/dL (Normal) CLARITY Sl. Cloudy (Normal) COLOR Yellow (Normal) :23 Urine Drug Screen (VISTA) Comments: Test performed at:[facility] [address] [place] [address] THC NEGATIVE (Normal) PCP NEGATIVE (Normal) OPIATES NEGATIVE (Normal) METHADONE NEGATIVE (Normal) ECSTACY NEGATIVE (Normal) COCAINE NEGATIVE (Normal) BENZODIAZIPINE NEGATIVE (Normal) BARBITIURATES NEGATIVE (Normal) AMPHETAMINES NEGATIVE (Normal) VISTA UDS PH 5 (Normal) TO BE CONFIRMED (Normal) Comments: CONFIRMATORY TESTING FOR ALL POSITIVE URINE DRUG SCREENRESULTS WILL ONLY BE SENT OUT UPON PHYSICIAN ORDER.VISTA Urine Drug Screen methods provide only preliminaryanalytical test results. A more specific alternate chemicalmethod must be used in order to obtain a confirmedanalytical result. Gas chromatography/mass spectrometery(GC/MS) is the preferred confirmatory method. Clinicalconsideration and profe ssional judgement should be appliedto any drug of abuse test result, particularly whenpreliminary positive results are used.URINE TCA TESTING MUST BE ORDERED SEPARATELY. USE TESTMNEMONIC: [facility] :15 Alcohol, Blood (Medical)-Serum Comments: Test performed at:[facility] [address] [place] [address] SERUM ETOH 10.0 mg/dL (Normal) Comments: The serum:whole blood ethanol ratio is approximately 1.14and varies slightly with hematocrit.Medical Alcohol reference interval and critical value innon-tolerant individuals; 50 - 100 Impairment 100 Intoxication 100 - 250 Severe Poisoning 250 - 400 Deep/possible fatal coma :15 Basic Metabolic Profile (BMP) Comments: Test performed at:[facility] [address] [facility] [place] [address] GAP 10 (Normal) Range: 5-15 CO2 23.0 mmol/L (Normal) Range: 21.0-32.0 CL 104 mmol/L (Normal) Range: 98-107 K 3.3 mmol/L (Abnormal) Range: 3.5-5.1 NA 137 mmol/L (Normal) Range: 136-145 CA 8.7 mg/dL (Normal) Range: 8.5-10.1 BUN/CRE 15.0 {RATIO} (Normal) Range: 10-20 Estimated CRCL 82.26 ml/min (Normal) EST GFR - AA 99 mL/min (Normal) EST GFR 82 mL/min (Normal) CREAT,SERUM 0.8 mg/dL (Normal) Range: 0.6-1.0 BUN 12 mg/dL (Normal) Range: 7-18 GLU 114 mg/dL (Abnormal) Range: 70-110 Comments: Fasting Glucose result from 110 to <126 mg/dLsuggests IMPAIRED HOMEOSTASIS per A.D.A. criteria. 28-Dec-20140:15 CBC W/Diff, Automated Comments: Test performed at:[facility] [address] [place], [place] [address] Absolute Lymph 3.11 {X10_3/ul} (Normal) Range: 0.83-4.51 Absolute Neut 5.2 {X10_3/uL} (Normal) Range: 2.0-7.7 IM GRAN % 0.100 % (Normal) Range: 0.0-0.9 Comments: IG% - Immature Granulocytes (promyelocytes, myelocytes andmetamyelocytes) > 1% indicates that a LEFT SHIFT is Present. BASO% 0.1 % (Normal) Range: 0-1 EO% 1.8 % (Normal) Range: 0-5 MONO% 7.7 % (Normal) Range: 0-10 LY% 33.8 % (Normal) Range: 19-41 NEUT% 56.5 % (Normal) Range: 47-70 MPV 10.0 fL (Normal) Range: 6.2-12.0 PLT 252 K/mm3 (Normal) Range: 150-450 RDW SD 39.3 fL (Normal) Range: 35.1-43.9 RDW CV 12.1 % (Normal) Range: 11.6-14.6 MCHC 35.0 {g/gl} (Normal) Range: 32-36 MCH 31.4 pg (Normal) Range: 27.0-32.0 MCV 89.9 fL (Normal) Range: 81-99 HCT 47.2 % (Abnormal) Range: 37-47 HGB 16.5 g/dL (Abnormal) Range: 12.0-15.0 RBC 5.25 {M/mm3} (Normal) Range: 4.2-5.4 WBC 9.2 K/mm3 (Normal) Range: 4.4-11.0 :15 ,Serum,hCG Quali. Comments: Test performed at:[facility] [address] [facility]. [place], [place] [address] HCGSQUAL NEGATIVE {Negative} (Normal) Range: 0-9 Nonpreg HCG Qual triggr 4 m[iU]/mL (Normal) 62-Bpc-091003:55 Urine Drug Screen (VISTA) Comments: Test performed at:[facility] [address] [place] [address] THC NEGATIVE (Normal) PCP NEGATIVE (Normal) OPIATES NEGATIVE (Normal) METHADONE NEGATIVE (Normal) ECSTACY NEGATIVE (Normal) COCAINE NEGATIVE (Normal) BENZODIAZIPINE NEGATIVE (Normal) BARBITIURATES NEGATIVE (Normal) AMPHETAMINES NEGATIVE (Normal) VISTA UDS PH 5 (Normal) TO BE CONFIRMED (Normal) Comments: CONFIRMATORY TESTING FOR ALL POSITIVE URINE DRUG SCREENRESULTS WILL ONLY BE SENT OUT UPON PHYSICIAN ORDER.VISTA Urine Drug Screen methods provide only preliminaryanalytical test results. A more specific alternate chemicalmethod must be used in order to obtain a confirmedanalytical result. Gas chromatography/mass spectrometery(GC/MS) is the preferred confirmatory method. Clinicalconsideration and profe ssional judgement should be appliedto any drug of abuse test result, particularly whenpreliminary positive results are used.URINE TCA TESTING MUST BE ORDERED SEPARATELY. USE TESTMNEMONIC: [facility] 65-Kvl-594341:05 Alcohol, Blood (Medical)-Serum Comments: Test performed at:[facility] [address] [facility] [place] [address] SERUM ETOH < 3.0 mg/dL (Normal) Comments: The serum:whole blood ethanol ratio is approximately 1.14and varies slightly with hematocrit.Medical Alcohol reference interval and critical value innon-tolerant individuals; 50 - 100 Impairment 100 Intoxication 100 - 250 Severe Poisoning 250 - 400 Deep/possible fatal coma 36-Wpa-194950:05 Basic Metabolic Profile (BMP) Comments: Test performed at:[facility] [address] [place], [place] [address] GAP 9 (Normal) Range: 5-15 CO2 25.0 mmol/L (Normal) Range: 21.0-32.0 CL 102 mmol/L (Normal) Range: 98-107 K 3.8 mmol/L (Normal) Range: 3.5-5.1 NA 136 mmol/L (Normal) Range: 136-145 CA 9.1 mg/dL (Normal) Range: 8.5-10.1 BUN/CRE 13.8 {RATIO} (Normal) Range: 10-20 Estimated CRCL 75.88 ml/min (Normal) EST GFR - AA 99 mL/min (Normal) EST GFR 82 mL/min (Normal) CREAT,SERUM 0.8 mg/dL (Normal) Range: 0.6-1.0 BUN 11 mg/dL (Normal) Range: 7-18 GLU 113 mg/dL (Abnormal) Range: 70-110 Comments: Fasting Glucose result from 110 to <126 mg/dLsuggests IMPAIRED HOMEOSTASIS per A.D.A. criteria. [id number] CBC W/Diff, Automated Comments: Test performed at:[facility] [id number] [place] [address] Absolute Lymph 2.66 {X10_3/ul} (Normal) Range: 0.83-4.51 Absolute Neut 5.0 {X10_3/uL} (Normal) Range: 2.0-7.7 IM GRAN % 0.100 % (Normal) Range: 0.0-0.9 Comments: IG% - Immature Granulocytes (promyelocytes, myelocytes andmetamyelocytes) > 1% indicates that a LEFT SHIFT is Present. BASO% 0.2 % (Normal) Range: 0-1 EO% 3.3 % (Normal) Range: 0-5 MONO% 9.4 % (Normal) Range: 0-10 LY% 30.4 % (Normal) Range: 19-41 NEUT% 56.6 % (Normal) Range: 47-70 MPV 9.7 fL (Normal) Range: 6.2-12.0 PLT 259 K/mm3 (Normal) Range: 150-450 RDW SD 41.1 fL (Normal) Range: 35.1-43.9 RDW CV 12.6 % (Normal) Range: 11.6-14.6 MCHC 34.2 {g/gl} (Normal) Range: 32-36 MCH 31.0 pg (Normal) Range: 27.0-32.0 MCV 90.6 fL (Normal) Range: 81-99 HCT 44.4 % (Normal) Range: 37-47 HGB 15.2 g/dL (Abnormal) Range: 12.0-15.0 RBC 4.90 {M/mm3} (Normal) Range: 4.2-5.4 WBC 8.8 K/mm3 (Normal) Range: 4.4-11.0 29-Oct-20141:15 Alcohol, Blood (Medical)-Serum Comments: Test performed at:[facility] [address] [place] [address] SERUM ETOH < 3.0 mg/dL (Normal) Comments: The serum:whole blood ethanol ratio is approximately 1.14and varies slightly with hematocrit.Medical Alcohol reference interval and critical value innon-tolerant individuals; 50 - 100 Impairment 100 Intoxication 100 - 250 Severe Poisoning 250 - 400 Deep/possible fatal coma 29-Oct-20141:15 Basic Metabolic Profile (BMP) Comments: Test performed at:[facility] [address] [facility] [place] [address] GAP 6 (Normal) Range: 5-15 CO2 25.0 mmol/L (Normal) Range: 21.0-32.0 CL 103 mmol/L (Normal) Range: 98-107 K 3.8 mmol/L (Normal) Range: 3.5-5.1 NA 134 mmol/L (Abnormal) Range: 136-145 CA 8.5 mg/dL (Normal) Range: 8.5-10.1 BUN/CRE 12.9 {RATIO} (Normal) Range: 10-20 Estimated CRCL 90.36 ml/min (Normal) EST GFR - AA 116 mL/min (Normal) EST GFR 96 mL/min (Normal) CREAT,SERUM 0.7 mg/dL (Normal) Range: 0.6-1.0 BUN 9 mg/dL (Normal) Range: 7-18 GLU 125 mg/dL (Abnormal) Range: 70-110 Comments: Fasting Glucose result from 110 to <126 mg/dLsuggests IMPAIRED HOMEOSTASIS per A.D.A. criteria. :15 CBC W/Diff, Automated Comments: Test performed at:[facility] [address] [facility]. [place], [place] [id number] Absolute Lymph 2.65 {X10_3/ul} (Normal) Range: 0.83-4.51 Absolute Neut 5.4 {X10_3/uL} (Normal) Range: 2.0-7.7 IM GRAN % 0.200 % (Normal) Range: 0.0-0.9 Comments: IG% - Immature Granulocytes (promyelocytes, myelocytes andmetamyelocytes) > 1% indicates that a LEFT SHIFT is Present. BASO% 0.2 % (Normal) Range: 0-1 EO% 4.2 % (Normal) Range: 0-5 MONO% 8.7 % (Normal) Range: 0-10 LY% 28.5 % (Normal) Range: 19-41 NEUT% 58.2 % (Normal) Range: 47-70 MPV 9.6 fL (Normal) Range: 6.2-12.0 PLT 258 K/mm3 (Normal) Range: 150-450 RDW SD 42.4 fL (Normal) Range: 35.1-43.9 RDW CV 12.6 % (Normal) Range: 11.6-14.6 MCHC 33.9 {g/gl} (Normal) Range: 32-36 MCH 31.2 pg (Normal) Range: 27.0-32.0 MCV 91.8 fL (Normal) Range: 81-99 HCT 43.9 % (Normal) Range: 37-47 HGB 14.9 g/dL (Normal) Range: 12.0-15.0 RBC 4.78 {M/mm3} (Normal) Range: 4.2-5.4 WBC 9.3 K/mm3 (Normal) Range: 4.4-11.0 :15 ,Serum,hCG Quali. Comments: Test performed at:[facility] [address] [place] [address] HCGSQUAL NEGATIVE {Negative} (Normal) Range: 0-9 Nonpreg HCG Qual triggr 4 m[iU]/mL (Normal) :15 Urine Drug Screen (VISTA) Comments: Test performed at:[facility] [address] [place] [address] THC NEGATIVE (Normal) PCP NEGATIVE (Normal) OPIATES NEGATIVE (Normal) METHADONE NEGATIVE (Normal) ECSTACY NEGATIVE (Normal) COCAINE NEGATIVE (Normal) BENZODIAZIPINE NEGATIVE (Normal) BARBITIURATES NEGATIVE (Normal) AMPHETAMINES NEGATIVE (Normal) VISTA UDS PH 6 (Normal) TO BE CONFIRMED (Normal) Comments: CONFIRMATORY TESTING FOR ALL POSITIVE URINE DRUG SCREENRESULTS WILL ONLY BE SENT OUT UPON PHYSICIAN ORDER.VISTA Urine Drug Screen methods provide only preliminaryanalytical test results. A more specific alternate chemicalmethod must be used in order to obtain a confirmedanalytical result. Gas chromatography/mass spectrometery(GC/MS) is the preferred confirmatory method. Clinicalconsideration and profe ssional judgement should be appliedto any drug of abuse test result, particularly whenpreliminary positive results are used.URINE TCA TESTING MUST BE ORDERED SEPARATELY. USE TESTMNEMONIC: PACA 24-Fxf-990093:32 Rapid Flu (11932 x 2) Influenza A Ag Negitive A and B (Normal) :56 ,Serum,hCG Quali. Comments: Test performed at:[facility] [address] [place] [address] HCGSQUAL NEGATIVE {Negative} (Normal) Range: 0-9 Nonpreg HCG Qual triggr 3 m[iU]/mL (Normal) :01 CBC W/Diff, Automated Comments: Test performed at:[facility] [address] [place] [address] Absolute Lymph 2.32 {X10_3/ul} (Normal) Range: 0.83-4.51 Absolute Neut 12.9 {X10_3/uL} (Abnormal) Range: 2.0-7.7 IM GRAN % 0.500 % (Normal) Range: 0.0-0.9 Comments: IG% - Immature Granulocytes (promyelocytes, myelocytes andmetamyelocytes) > 1% indicates that a LEFT SHIFT is Present. BASO% 0.2 % (Normal) Range: 0-1 EO% 0.9 % (Normal) Range: 0-5 MONO% 4.9 % (Normal) Range: 0-10 LY% 14.3 % (Abnormal) Range: 19-41 NEUT% 79.2 % (Abnormal) Range: 47-70 MPV 10.0 fL (Normal) Range: 6.2-12.0 PLT 310 K/mm3 (Normal) Range: 150-450 RDW SD 41.1 fL (Normal) Range: 35.1-43.9 RDW CV 12.5 % (Normal) Range: 11.6-14.6 MCHC 33.8 {g/gl} (Normal) Range: 32-36 MCH 31.2 pg (Normal) Range: 27.0-32.0 MCV 92.3 fL (Normal) Range: 81-99 HCT 45.5 % (Normal) Range: 37-47 HGB 15.4 g/dL (Abnormal) Range: 12.0-15.0 RBC 4.93 {M/mm3} (Normal) Range: 4.2-5.4 WBC 16.2 K/mm3 (Abnormal) Range: 4.4-11.0 :01 Comprehensive Metabolic Profil Comments: Test performed at:[facility] [address] [place], [place] [id number] GAP 6 (Normal) Range: 5-15 CO2 29.0 mmol/L (Normal) Range: 21.0-32.0 CL 101 mmol/L (Normal) Range: 98-107 K 3.8 mmol/L (Normal) Range: 3.5-5.1 NA 136 mmol/L (Normal) Range: 136-145 T BILI 0.60 mg/dL (Normal) Range: 0.00-4.00 ALT 59 U/L (Normal) Range: 12-78 ALK P 104 U/L (Normal) Range: 50-136 AST 55 U/L (Abnormal) Range: 15-37 CA 8.7 mg/dL (Normal) Range: 8.5-10.1 A/G 0.9 {RATIO} (Normal) Range: 0.9-2.4 GLOB 4.1 g/dL (Normal) Range: 2.7-4.2 ALB 3.8 g/dL (Normal) Range: 3.4-5.0 T PROT 7.9 g/dL (Normal) Range: 6.4-8.2 BUN/CRE 15.0 {RATIO} (Normal) Range: 10-20 Estimated CRCL 63.25 ml/min (Normal) EST GFR - AA 76 mL/min (Normal) EST GFR 63 mL/min (Normal) CREAT,SERUM 1.0 mg/dL (Normal) Range: 0.6-1.0 BUN 15 mg/dL (Normal) Range: 7-18 GLU 194 mg/dL (Abnormal) Range: 70-110 Comments: Fasting Glucose result greater than or equal to 126 mg/dLsuggests DIABETES MELLITUS per A.D.A. criteria. 71-Bln-53358:01 Prothrombin Time w/INR Comments: Test performed at:[facility] [address] [place] [address] INR 1.1 (Normal) PROTIME 14.7 s (Normal) Range: 11.7-14.9 82-Pzq-839686:36 PT (Prothrobim Time) Comments: PATIENT NOT FASTINGPERFORMED BY: [facility] Bsyxhm9348 [facility] [id number] Information: [id number] ([id number]) Prothrombin Time 10.0 {sec} (Normal) Range: 9.1-12.0 INR 0.9 (Normal) Range: 0.8-1.2 Comments: Reference interval is for non-anticoagulated patients. . Suggested INR therapeutic range for Vitamin K anta gonist therapy: Standard Dose (moderate intensity therapeutic range): 2.0 - 3.0 Higher intensity therapeutic range 2.5 - 3.5 2-Dlj-280565:20 Basic Metabolic Profile (BMP) Comments: 'TROP' Serial specimen #1, #2, #3, or #4: 1Test performed at:[facility] [address] [place] [address] GAP 4 (Abnormal) Range: 5-15 CO2 31.0 mmol/L (Normal) Range: 21.0-32.0 CL 103 mmol/L (Normal) Range: 98-107 K 3.8 mmol/L (Normal) Range: 3.5-5.1 NA 138 mmol/L (Normal) Range: 136-145 CA 8.6 mg/dL (Normal) Range: 8.5-10.1 BUN/CRE 16.7 {RATIO} (Normal) Range: 10-20 Estimated CRCL 70.28 ml/min (Normal) EST GFR - AA 87 mL/min (Normal) EST GFR 72 mL/min (Normal) CREAT,SERUM 0.9 mg/dL (Normal) Range: 0.6-1.0 BUN 15 mg/dL (Normal) Range: 7-18 GLU 97 mg/dL (Normal) Range: 70-110 0-Npo-694359:20 CBC W/Diff, Automated Comments: Test performed at:[facility] [address] [place], [place] [id number] Absolute Lymph 2.54 {X10_3/ul} (Normal) Range: 0.83-4.51 Absolute Neut 5.8 {X10_3/uL} (Normal) Range: 2.0-7.7 IM GRAN % 0.300 % (Normal) Range: 0.0-0.9 Comments: IG% - Immature Granulocytes (promyelocytes, myelocytes andmetamyelocytes) > 1% indicates that a LEFT SHIFT is Present. BASO% 0.3 % (Normal) Range: 0-1 EO% 3.2 % (Normal) Range: 0-5 MONO% 8.0 % (Normal) Range: 0-10 LY% 26.8 % (Normal) Range: 19-41 NEUT% 61.4 % (Normal) Range: 47-70 MPV 9.6 fL (Normal) Range: 6.2-12.0 PLT 283 K/mm3 (Normal) Range: 150-450 RDW SD 41.1 fL (Normal) Range: 35.1-43.9 RDW CV 12.2 % (Normal) Range: 11.6-14.6 MCHC 32.9 {g/gl} (Normal) Range: 32-36 MCH 30.7 pg (Normal) Range: 27.0-32.0 MCV 93.4 fL (Normal) Range: 81-99 HCT 44.1 % (Normal) Range: 37-47 HGB 14.5 g/dL (Normal) Range: 12.0-15.0 RBC 4.72 {M/mm3} (Normal) Range: 4.2-5.4 WBC 9.5 K/mm3 (Normal) Range: 4.4-11.0 4-Hxa-425517:20 Troponin-I Comments: 'TROP' Serial specimen #1, #2, #3, or #4: 1Test performed at:[facility] [address] [place] [address] TROPONIN-I < 0.02 ng/mL (Normal) Comments: TROPONIN-I EXPECTED VALUES <0.05 NEGATIVE 0.06 - 0.59 AT RISK OF WI > OR = 0.60 SUGGEST WI 65-Hri-641015:42 PT (Prothrobim Time) Comments: PATIENT NOT FASTINGPERFORMED BY: [facility] HospitalSxiwss5430 [facility] [id number] Information: [id number] ([id number]) Prothrombin Time 23.6 {sec} (Abnormal) Range: 9.1-12.0 INR 2.2 (Abnormal) Range: 0.8-1.2 Comments: Reference interval is for non-anticoagulated patients. . Suggested INR therapeutic range for Vitamin K anta gonist therapy: Standard Dose (moderate intensity therapeutic range): 2.0 - 3.0 Higher intensity therapeutic range 2.5 - 3.5 74-Rbe-787198:18 PT (Prothrobim Time) Comments: PATIENT NOT FASTINGPERFORMED BY: [facility]6370 [facility] [id number] Information: [id number] ([id number]) Prothrombin Time 31.8 {sec} (Abnormal) Range: 9.1-12.0 INR 2.9 (Abnormal) Range: 0.8-1.2 Comments: Reference interval is for non-anticoagulated patients. . Suggested INR therapeutic range for Vitamin K anta gonist therapy: Standard Dose (moderate intensity therapeutic range): 2.0 - 3.0 Higher intensity therapeutic range 2.5 - 3.5 :31 PT (Prothrobim Time) Comments: PATIENT NOT FASTINGPERFORMED BY: [facility] [facility] [id number] Information: [id number] ([id number]) Prothrombin Time 20.7 {sec} (Abnormal) Range: 9.1-12.0 INR 1.9 (Abnormal) Range: 0.8-1.2 Comments: Reference interval is for non-anticoagulated patients. . Suggested INR therapeutic range for Vitamin K anta gonist therapy: Standard Dose (moderate intensity therapeutic range): 2.0 - 3.0 Higher intensity therapeutic range 2.5 - 3.5 :25 PT (Prothrobim Time) Comments: PATIENT NOT FASTINGPERFORMED BY: [facility] [facility] [id number] Information: [id number] ([id number]) Prothrombin Time 13.2 {sec} (Abnormal) Range: 9.1-12.0 INR 1.2 (Normal) Range: 0.8-1.2 Comments: Reference interval is for non-anticoagulated patients. . Suggested INR therapeutic range for Vitamin K anta gonist therapy: Standard Dose (moderate intensity therapeutic range): 2.0 - 3.0 Higher intensity therapeutic range 2.5 - 3.5 :40 PT (Prothrobim Time) Comments: PATIENT NOT FASTINGPERFORMED BY: [facility] [facility] [id number] Information: [id number] ([id number]) Prothrombin Time 14.8 {sec} (Abnormal) Range: 9.1-12.0 INR 1.4 (Abnormal) Range: 0.8-1.2 Comments: Reference interval is for non-anticoagulated patients. . Suggested INR therapeutic range for Vitamin K anta gonist therapy: Standard Dose (moderate intensity therapeutic range): 2.0 - 3.0 Higher intensity therapeutic range 2.5 - 3.5 :39 PT (Prothrobim Time) Comments: PATIENT NOT FASTINGPERFORMED BY: [address] Parker StreetDublin [place] [id number] Information: [id number] ([id number]) Prothrombin Time 11.9 {sec} (Normal) Range: 9.1-12.0 INR 1.1 (Normal) Range: 0.8-1.2 Comments: Reference interval is for non-anticoagulated patients. . Suggested INR therapeutic range for Vitamin K anta gonist therapy: Standard Dose (moderate intensity therapeutic range): 2.0 - 3.0 Higher intensity therapeutic range 2.5 - 3.5 44-Mgz-193464:20 PT (Prothrobim Time) Comments: PATIENT NOT FASTINGPERFORMED BY: [place] [address] [facility] [id number] Information: [id number] ([id number]) Prothrombin Time 31.6 {sec} (Abnormal) Range: 9.1-12.0 INR 2.9 (Abnormal) Range: 0.8-1.2 Comments: Reference interval is for non-anticoagulated patients. . Suggested INR therapeutic range for Vitamin K anta gonist therapy: Standard Dose (moderate intensity therapeutic range): 2.0 - 3.0 Higher intensity therapeutic range 2.5 - 3.5 :31 PT (Prothrobim Time) Comments: PATIENT NOT FASTINGPERFORMED BY: [place] [address] [facility] [id number] Information: [id number] ([id number]) Prothrombin Time 23.5 {sec} (Abnormal) Range: 9.1-12.0 INR 2.2 (Abnormal) Range: 0.8-1.2 Comments: Reference interval is for non-anticoagulated patients. . Suggested INR therapeutic range for Vitamin K anta gonist therapy: Standard Dose (moderate intensity therapeutic range): 2.0 - 3.0 Higher intensity therapeutic range 2.5 - 3.5 34-Dvw-475754:38 PT (Prothrobim Time) Comments: PATIENT NOT FASTINGPERFORMED BY: [facility] [facility] [id number] Information: [id number] ([id number]) Prothrombin Time 22.9 {sec} (Abnormal) Range: 9.1-12.0 INR 2.1 (Abnormal) Range: 0.8-1.2 Comments: Reference interval is for non-anticoagulated patients. . Suggested INR therapeutic range for Vitamin K anta gonist therapy: Standard Dose (moderate intensity therapeutic range): 2.0 - 3.0 Higher intensity therapeutic range 2.5 - 3.5 :16 PT (Prothrobim Time) Comments: PATIENT NOT FASTINGPERFORMED BY: [place] [address] [facility] [id number] Information: [id number] ([id number]) Prothrombin Time 36.6 {sec} (Abnormal) Range: 9.1-12.0 INR 3.3 (Abnormal) Range: 0.8-1.2 Comments: Reference interval is for non-anticoagulated patients. . Suggested INR therapeutic range for Vitamin K anta gonist therapy: Standard Dose (moderate intensity therapeutic range): 2.0 - 3.0 Higher intensity therapeutic range 2.5 - 3.5 :14 PT (Prothrobim Time) Comments: PATIENT NOT FASTINGPERFORMED BY: [facility] [facility] [id number] Information: [id number] ([id number]) Prothrombin Time 28.3 {sec} (Abnormal) Range: 9.1-12.0 INR 2.7 (Abnormal) Range: 0.8-1.2 Comments: Reference interval is for non-anticoagulated patients. . Suggested INR therapeutic range for Vitamin K anta gonist therapy: Standard Dose (moderate intensity therapeutic range): 2.0 - 3.0 Higher intensity therapeutic range 2.5 - 3.5 :13 HgA1C , Office (72770) HgA1C , Office 5.9 % (Normal) Range: 4.6 - 7.1 :13 Blood Glucose , Office (21368) Blood Glucose , Office 144 (Normal) :54 PT (Prothrobim Time) Comments: STANDING ORDER; PATIENT NOT FASTINGPERFORMED BY: [facility] [facility] [id number] Information: [id number] ([id number]) Prothrombin Time 31.0 {sec} (Abnormal) Range: 9.1-12.0 INR 3.0 (Abnormal) Range: 0.8-1.2 Comments: Reference interval is for non-anticoagulated patients. . Suggested INR therapeutic range for Vitamin K anta gonist therapy: Standard Dose (moderate intensity therapeutic range): 2.0 - 3.0 Higher intensity therapeutic range 2.5 - 3.5 :13 PT (Prothrobim Time) Comments: PATIENT NOT FASTINGPERFORMED BY: [place] [address] [facility] [id number] Information: [id number] ([id number]) Prothrombin Time 29.0 {sec} (Abnormal) Range: 9.1-12.0 INR 2.8 (Abnormal) Range: 0.8-1.2 Comments: Reference interval is for non-anticoagulated patients. . Suggested INR therapeutic range for Vitamin K anta gonist therapy: Standard Dose (moderate intensity therapeutic range): 2.0 - 3.0 Higher intensity therapeutic range 2.5 - 3.5 :57 PT (Prothrobim Time) Comments: PATIENT NOT FASTINGPERFORMED BY: [place] [address] [facility] [id number] Information: [id number] ([id number]) Prothrombin Time 42.7 {sec} (Abnormal) Range: 9.1-12.0 INR 4.1 (Abnormal) Range: 0.8-1.2 Comments: Client Requested Flag Reference interval is for non- anticoagulated patients. . Suggested INR therapeutic ra nge for Vitamin K antagonist therapy: Standard Dose (moderate intensity therapeutic range): 2.0 - 3.0 Higher intensity therapeutic range 2.5 - 3.5 :00 PT (Prothrobim Time) Comments: PATIENT NOT FASTINGPERFORMED BY: [facility] [facility] [id number] Information: [id number] ([id number]) Prothrombin Time 13.4 {sec} (Abnormal) Range: 9.1-12.0 INR 1.3 (Abnormal) Range: 0.8-1.2 Comments: Reference interval is for non-anticoagulated patients. . Suggested INR therapeutic range for Vitamin K anta gonist therapy: Standard Dose (moderate intensity therapeutic range): 2.0 - 3.0 Higher intensity therapeutic range 2.5 - 3.5 :43 PT (Prothrobim Time) Comments: PATIENT NOT FASTINGPERFORMED BY: [place] [address] [facility] [id number] Information: [id number] ([id number]) Prothrombin Time 18.4 {sec} (Abnormal) Range: 9.1-12.0 INR 1.8 (Abnormal) Range: 0.8-1.2 Comments: Reference interval is for non-anticoagulated patients. . Suggested INR therapeutic range for Vitamin K anta gonist therapy: Standard Dose (moderate intensity therapeutic range): 2.0 - 3.0 Higher intensity therapeutic range 2.5 - 3.5 :31 PT (Prothrobim Time) Comments: PATIENT NOT FASTINGPERFORMED BY: [facility] [facility] [id number] Information: [id number] ([id number]) Prothrombin Time 19.8 {sec} (Abnormal) Range: 9.1-12.0 INR 1.9 (Abnormal) Range: 0.8-1.2 Comments: Reference interval is for non-anticoagulated patients. . Suggested INR therapeutic range for Vitamin K anta gonist therapy: Standard Dose (moderate intensity therapeutic range): 2.0 - 3.0 Higher intensity therapeutic range 2.5 - 3.5 :15 PT (Prothrobim Time) Comments: PATIENT NOT FASTINGPERFORMED BY: [facility] [facility] [id number] Information: [id number] ([id number]) Prothrombin Time 22.4 {sec} (Abnormal) Range: 9.1-12.0 INR 2.2 (Abnormal) Range: 0.8-1.2 Comments: Reference interval is for non-anticoagulated patients. . Suggested INR therapeutic range for Vitamin K anta gonist therapy: Standard Dose (moderate intensity therapeutic range): 2.0 - 3.0 Higher intensity therapeutic range 2.5 - 3.5 :40 PT (Prothrobim Time) Comments: STANDING ORDER; PATIENT NOT FASTINGPERFORMED BY: [facility] [facility] [id number] Information: [id number] ([id number]) Prothrombin Time 22.1 {sec} (Abnormal) Range: 9.1-12.0 INR 2.1 (Abnormal) Range: 0.8-1.2 Comments: Reference interval is for non-anticoagulated patients. . Suggested INR therapeutic range for Vitamin K anta gonist therapy: Standard Dose (moderate intensity therapeutic range): 2.0 - 3.0 Higher intensity therapeutic range 2.5 - 3.5 :04 PT (Prothrobim Time) Comments: PATIENT NOT FASTINGPERFORMED BY: [place] [address] [facility] [id number] Information: [id number] ([id number]) Prothrombin Time 41.7 {sec} (Abnormal) Range: 9.1-12.0 INR 4.0 (Abnormal) Range: 0.8-1.2 Comments: Client Requested Flag Reference interval is for non- anticoagulated patients. . Suggested INR therapeutic ra nge for Vitamin K antagonist therapy: Standard Dose (moderate intensity therapeutic range): 2.0 - 3.0 Higher intensity therapeutic range 2.5 - 3.5 :27 PT (Prothrobim Time) Comments: STANDING ORDER; PATIENT NOT FASTINGPERFORMED BY: [facility] [facility] [id number] Information: [id number] ([id number]) Prothrombin Time 34.2 {sec} (Abnormal) Range: 9.1-12.0 INR 3.3 (Abnormal) Range: 0.8-1.2 Comments: Reference interval is for non-anticoagulated patients. . Suggested INR therapeutic range for Vitamin K anta gonist therapy: Standard Dose (moderate intensity therapeutic range): 2.0 - 3.0 Higher intensity therapeutic range 2.5 - 3.5 :36 Prothrombin Time (PT) Comments: PATIENT WAS FASTINGPERFORMED BY: [place] [address] [facility] [id number] Prothrombin Time 28.4 {sec} (Abnormal) Range: 9.1-12.0 INR 2.7 (Abnormal) Range: 0.8-1.2 Comments: Reference interval is for non-anticoagulated patients. . Suggested INR therapeutic range for Vitamin K anta gonist therapy: Standard Dose (moderate intensity therapeutic range): 2.0 - 3.0 Higher intensity therapeutic range 2.5 - 3.5 :15 PT (Prothrobim Time) Comments: STANDING ORDER; PATIENT NOT FASTINGPERFORMED BY: [place] [address] [facility] [id number] Information: [id number] ([id number]) Prothrombin Time 40.5 {sec} (Abnormal) Range: 9.1-12.0 INR 3.9 (Abnormal) Range: 0.8-1.2 Comments: Client Requested Flag Reference interval is for non- anticoagulated patients. . Suggested INR therapeutic ra nge for Vitamin K antagonist therapy: Standard Dose (moderate intensity therapeutic range): 2.0 - 3.0 Higher intensity therapeutic range 2.5 - 3.5 :48 PT (Prothrobim Time) Comments: STANDING ORDER; PATIENT NOT FASTINGPERFORMED BY: [place] [address] [facility] [id number] Information: [id number] ([id number]) Prothrombin Time 28.8 {sec} (Abnormal) Range: 9.1-12.0 INR 2.8 (Abnormal) Range: 0.8-1.2 Comments: Reference interval is for non-anticoagulated patients. . Suggested INR therapeutic range for Vitamin K anta gonist therapy: Standard Dose (moderate intensity therapeutic range): 2.0 - 3.0 Higher intensity therapeutic range 2.5 - 3.5 :29 PT (Prothrobim Time) Comments: STANDING ORDER; PATIENT NOT FASTINGPERFORMED BY: [place] [address] [facility] [id number] Information: [id number] ([id number]) Prothrombin Time 14.0 {sec} (Abnormal) Range: 9.1-12.0 INR 1.3 (Abnormal) Range: 0.8-1.2 Comments: Reference interval is for non-anticoagulated patients. . Suggested INR therapeutic range for Vitamin K anta gonist therapy: Standard Dose (moderate intensity therapeutic range): 2.0 - 3.0 Higher intensity therapeutic range 2.5 - 3.5 :14 PT (Prothrobim Time) (10152) Comments: Order Date: 02/20/13OV Order #: [id number] ID: [id number]: 453.42 - DVT (453.42) INR 2.6 (Normal) PTP 26.2 s (Abnormal) Range: 11.9-14.4 :48 PT (Prothrobim Time) Comments: STANDING ORDER; PATIENT NOT FASTINGPERFORMED BY: [employer] Ahmgnx7087 [facility] [id number] Information: [id number] ([id number]) Prothrombin Time 25.7 {sec} (Abnormal) Range: 9.1-12.0 INR 2.5 (Abnormal) Range: 0.8-1.2 Comments: Reference interval is for non-anticoagulated patients. . Suggested INR therapeutic range for Vitamin K anta gonist therapy: Standard Dose (moderate intensity therapeutic range): 2.0 - 3.0 Higher intensity therapeutic range 2.5 - 3.5 4-Djb-678374:40 Urinalysis, Office (90495) UA - BILIRUBIN Negative (Normal) UA - BLOOD Negative (Normal) UA - GLUCOSE Negative (Normal) UA - KETONES Negative mg/dL (Normal) UA - LEUKOCYTE ESTERASE Trace (Normal) UA - NITRITE Negative (Normal) UA - PH 6.0 (Normal) Comments: 5.5 UA - PROTEIN Negative mg/dL (Normal) UA - SPECIFIC GRAVITY 1.015 (Normal) URINE UROBILINGN DENISE TIMED Normal mg/dL (Normal) :53 PT (Prothrobim Time) Comments: PATIENT NOT FASTINGPERFORMED BY: [employer] [facility] [id number] Information: [id number] ([id number]) Prothrombin Time 39.8 {sec} (Abnormal) Range: 9.1-12.0 INR 3.8 (Abnormal) Range: 0.8-1.2 Comments: Client Requested Flag Reference interval is for non- anticoagulated patients. . Suggested INR therapeutic ra nge for Vitamin K antagonist therapy: Standard Dose (moderate intensity therapeutic range): 2.0 - 3.0 Higher intensity therapeutic range 2.5 - 3.5 76-Keb-815803:34 Aerobic Bacterial Culture Comments: PERFORMED BY: [facility] HospitalMhygff4221 [facility] [id number] Information: SRC: Result 1 Mixed skin irais (Normal) Aerobic Bacterial Culture Final report (Normal) 29-Soe-305484:31 Metabolic Panel, Basic Comments: PATIENT NOT FASTINGPERFORMED BY: [place] [address] [facility] [id number] Information: [id number] ([id number]) Calcium, Serum 9.3 mg/dL (Normal) Range: 8.7-10.2 Carbon Dioxide, Total 21 mmol/L (Normal) Range: 19-28 Chloride, Serum 100 mmol/L (Normal) Range: 97-108 Potassium, Serum 4.3 mmol/L (Normal) Range: 3.5-5.2 Sodium, Serum 137 mmol/L (Normal) Range: 134-144 BUN/Creatinine Ratio 16 (Normal) Range: 9-23 eGFR If Africn Am 125 mL/min/1.73 (Normal) eGFR If NonAfricn Am 109 mL/min/1.73 (Normal) Creatinine, Serum 0.63 mg/dL (Normal) Range: 0.57-1.00 BUN 10 mg/dL (Normal) Range: 6-24 Glucose, Serum 95 mg/dL (Normal) Range: 65-99 3-Bok-935153:28 PT (Prothrobim Time) Comments: PATIENT NOT FASTINGPERFORMED BY: [facility] [id number] Information: [id number] ([id number]) Prothrombin Time 42.0 {sec} (Abnormal) Range: 9.1-12.0 INR 4.1 (Abnormal) Range: 0.8-1.2 Comments: Client Requested Flag Reference interval is for non- anticoagulated patients. . Suggested INR therapeutic ra nge for Vitamin K antagonist therapy: Standard Dose (moderate intensity therapeutic range): 2.0 - 3.0 Higher intensity therapeutic range 2.5 - 3.5 88-Pzw-220424:42 PT INR 2.2 (Normal) PTP 23.1 s (Abnormal) Range: 11.9-14.4 06-Zny-930249:00 PT (Prothrobim Time) Comments: PATIENT NOT FASTINGPERFORMED BY: [address] [id number] Information: [id number] ([id number]) Prothrombin Time 34.7 {sec} (Abnormal) Range: 9.1-12.0 INR 3.3 (Abnormal) Range: 0.8-1.2 Comments: Reference interval is for non-anticoagulated patients. . Suggested INR therapeutic range for Vitamin K anta gonist therapy: Standard Dose (moderate intensity therapeutic range): 2.0 - 3.0 Higher intensity therapeutic range 2.5 - 3.5 :09 PT (Prothrobim Time) Comments: PATIENT NOT FASTINGPERFORMED BY: [place] [address] [facility] [id number] Information: [id number] ([id number]) Prothrombin Time 23.6 {sec} (Abnormal) Range: 9.1-12.0 INR 2.3 (Abnormal) Range: 0.8-1.2 Comments: Reference interval is for non-anticoagulated patients. . Suggested INR therapeutic range for Vitamin K anta gonist therapy: Standard Dose (moderate intensity therapeutic range): 2.0 - 3.0 Higher intensity therapeutic range 2.5 - 3.5 41-Idy-402147:25 PT (Prothrobim Time) Comments: PATIENT NOT FASTINGPERFORMED BY: [facility] [id number] Information: [id number] ([id number]) Prothrombin Time 11.9 {sec} (Normal) Range: 9.1-12.0 INR 1.1 (Normal) Range: 0.8-1.2 Comments: Reference interval is for non-anticoagulated patients. . Suggested INR therapeutic range for Vitamin K anta gonist therapy: Standard Dose (moderate intensity therapeutic range): 2.0 - 3.0 Higher intensity therapeutic range 2.5 - 3.5 06-Xeo-61389:39 AORTA Radiology Report See Note (Normal) Comments: PROCEDURES: ULTRASOUND AORTA REASON FOR EXAM: Female, 42 years old. Family history of abdominalaortic aneurysm. TECHNIQUE: Ultrasound evaluation of the aorta was performed with real-timeand static hanley-scale imaging. COMPARISON: None. FINDINGS:There is no elongation or tortuosity of the abdominal aorta. Aorta measures: Proximal 1.9 cm. Middle 1.7 cm. Distal 1.6 cm.Aorta measure transversel y: Proximal 1.5 cm. Middle 1.5 cm. Distal 15cm. The iliac arteries were not visualized due to overlying bowel gas. There is no demonstrated aneurysm.. IMPRESSION:Normal abdominal aorta. Signed:Aung Adame M.D.November 22, 2012 at 9:42:03 AM [id number] Signed GP/GP If you are the referring physician and would like to consult with theradiologist who provided this interpretation , please contact Anoop Dumont at [phone]. If this radiologist is unavailable, youwill be directed to another radiologist to assist. If you are a patient with a question regarding this re port, pleasecontactyour referring physician directly. Professional Interpretation Provided By: [employer], Phone , These documents contain legally protected and confidenti al healthinformation intended only for the use of the individual or entity namedabove. If you are not the intended recipient, you are hereby notifiedthatany disclosure, copying, distribution, or other u se of these documents isstrictly prohibited. If you have received this information in error,pleasenotify the sender immediately and arrange for the return or destructionofthese documents. Dictated on 11/22/1242 by Garret Adame MDribed on 11/22/1245 by ITS IMPORTSign by Jaxon Adame MD on 11/22/1246 Sign by: ____ Leatha LEONJaxon 29-Kbj-662606:11 PT (Prothrobim Time) (53313) Comments: PATIENT NOT FASTINGPERFORMED BY: [facility] [id number] Prothrombin Time 14.9 {sec} (Abnormal) Range: 9.1-12.0 INR 1.4 (Abnormal) Range: 0.8-1.2 Comments: Reference interval is for non-anticoagulated patients. . Suggested INR therapeutic range for Vitamin K anta gonist therapy: Standard Dose (moderate intensity therapeutic range): 2.0 - 3.0 Higher intensity therapeutic range 2.5 - 3.5 80-Kze-53909:37 BRAIN W/WO CONTRAST Radiology Report See Note (Normal) Comments: PROCEDURE: MRI BRAIN WITH AND WITHOUT CONTRAST REASON FOR EXAM: Female, 42 years old hyperprolactinemia. TECHNIQUE: Standardized multiplanar fat and water weighted pulsesequences were obtained. 20 ml of Magnevist contrast material wasadministered intravenously for the contrast portion of the examination. COMPARISON: Prior MRI of brain 05/25/07. FINDINGS:Normal size of the ventricles and extra-ax ial spaces for the patient'franky.Normal white matter tracts of the supratentorial brain. Normal bilateral basal ganglia. Normal thalami. There is no extra- axialfluid accumulation. Normal flow voids wit hin the major intracranial circulation suggestingpatency by spin echo criteria. Normal venous enhancement. There is noenhancing intra-axial or extra-axial abnormality. There is normal size of the sell a turcica, and the pituitary gland.Following contrast, there is no abnormal enhancement. There is normaloptic chiasm. The parasellar structures and cavernous sinuses are withinnormal limits there is n ormal hypothalamus. Normal tectal plate andpinealgland. Normal midbrain, dilcia and medulla. Normal cerebellum. Normal basalcisterns. Normal bilateral temporal bones. Normal bilateral internalauditor y canals. No demonstrated orbital abnormality, within the constraints of a routinebrain study. Normal visualized paranasal sinuses. Normal calvarium andskull base. Normal visualized soft tissue struc tures. Normal visualizedupper cervical spine. IMPRESSION:Normal MRI of the brain and pituitary gland. If symptoms persist, followup exam is suggested. Signed:Deangelo Maki M.D.October 17, 2012 at 11:30:50 PM [phone] Signed AH/AH If you are the referring physician and would like to consult with theradiologist who provided this interpretation, please contact Fidelia alejandra M.D. at . If this radiologist is unavailable,you will be directed to another radiologist to assist. If you are a patient with a question regarding this report, pleasecontactyour referr ing physician directly. Professional Interpretation Provided By: [employer], Phone , These documents contain legally protected and confidential healthinformation intended only for the use of the individual or entity namedabove. If you are not the intended recipient, you are hereby notifiedthatany disclosure, copying, distribution, or other use of these documents isstrict ly prohibited. If you have received this information in error,pleasenotify the sender immediately and arrange for the return or destructionofthese documents. Dictated on 10/17/12 0856 by DEANGELO MAKI MDTranscribed on 10/17/122336 by ITS IMPORTSign by DEANGELO MAKI MD on 10/17/122337 Sign by: DEANGELO MAKI MD 5-Ocs-569252:27 HgA1C , Office (82508) HgA1C , Office 5.8 % (Normal) Range: 4.6 - 7.1 0-Ysa-989338:23 PELVIC (NON ) Radiology Report See Note (Normal) Comments: PROCEDURE: ULTRASOUND OF THE FEMALE PELVIS - COMPLETE REASON FOR EXAM: Female, 42 years old. LMP: September 19, 2012 .Dysfunctional uterine bleeding. TECHNIQUE: Transabdominal and Transv aginal TECHN ICAL QUALITY: Adequate. COMPARISON: None. FINDINGS:The uterus is anteverted and is tilted to the left side of the pelvis.Theuterus is enlarged and measures 15.5 cm by 8.6-cm by 6.3 cm. Normaluterin e cervix. The endometrium is thickened and measures 21 mm inthickness, and is heterogeneous (striated). There is no demonstratedendometrial mass. There is no demonstrated myometrial mass. I.U.D. -N o The right ovary is non-visualized. The left ovary is non-visualized. There is no fluid in the cul-de-sac. The distended urinary bladder had a volume of 630 ml at the time of theexam. IMPRESSION:Enlarg ed fibroid uterus and thickening of the endometrium. Signed:Jaxon Adame M.D.October 03, 2012 at 3:27:29 PM [phone] Signed GP/GP If you are the referring physician and would li ke to consult with theradiologist who provided this interpretation, please contact Anoop Dumont at [phone]. If this radiologist is unavailable, youwill be directed to another radiologist to assist. If you are a patient with a question regarding this report, pleasecontactyour referring physician directly. Professional Interpretation Provided By: [employer], Phone ,Fax These documents contain legally protected and confidential healthinformation intended only for the use of the individual or entity namedabove. If you are not the intended recipient, you are he reby notifiedthatany disclosure, copying, distribution, or other use of these documents isstrictly prohibited. If you have received this information in error,pleasenotify the sender immediately and arra nge for the return or destructionofthese documents. Dictated on 10/03/12 1412 by Luke Adame MDscribed on 10/03/12 1543 by ITS IMPORTSign by Jaxon Adame MD on 10/03/12 1544 Sign by: Jaxon Adame MD 03-Oct-20120:00 TRANSVAGINAL NON- Radiology Report See Note (Normal) Comments: PROCEDURE: ULTRASOUND OF THE FEMALE PELVIS - COMPLETE REASON FOR EXAM: Female, 42 years old. LMP: September 19, 2012 .Dysfunctional uterine bleeding. TECHNIQUE: Transabdominal and Transv aginal TECHN ICAL QUALITY: Adequate. COMPARISON: None. FINDINGS:The uterus is anteverted and is tilted to the left side of the pelvis.Theuterus is enlarged and measures 15.5 cm by 8.6-cm by 6.3 cm. Normaluterin e cervix. The endometrium is thickened and measures 21 mm inthickness, and is heterogeneous (striated). There is no demonstratedendometrial mass. There is no demonstrated myometrial mass. I.U.D. -N o The right ovary is non-visualized. The left ovary is non-visualized. There is no fluid in the cul-de-sac. The distended urinary bladder had a volume of 630 ml at the time of theexam. IMPRESSION:Enlarg ed fibroid uterus and thickening of the endometrium. Signed:Jaxon Adame M.D.October 03, 2012 at 3:27:29 PM [phone] Signed GP/GP If you are the referring physician and would li ke to consult with theradiologist who provided this interpretation, please contact Anoop Dumont at [phone]. If this radiologist is unavailable, youwill be directed to another radiologist to assist. If you are a patient with a question regarding this report, pleasecontactyour referring physician directly. Professional Interpretation Provided By: [employer], Phone ,Fax These documents contain legally protected and confidential healthinformation intended only for the use of the individual or entity namedabove. If you are not the intended recipient, you are he reby notifiedthatany disclosure, copying, distribution, or other use of these documents isstrictly prohibited. If you have received this information in error,pleasenotify the sender immediately and arra nge for the return or destructionofthese documents. Dictated on 10/03/12 1412 by Luke Adame MDscribed on 10/03/12 1541 by ITS IMPORTSign by Jaxon Adame MD on 10/03/12 1541 Sign by: Leatha LEON,Jaxon 30-Sep-20120:00 ABDOMEN/PELVIS WITH CONTRAST Radiology Report See Note (Normal) Comments: PROCEDURE: CT ABDOMEN AND PELVIS WITH CONTRAST REASON FOR EXAM: Female, 42 years old. Abdominal pain and rectalbleeding. RADIATION DOSAGE (If Supplied By Facility): CTDIvol = ( 19.87 ) mGy, DLP=( 2 118.94 ) mGycm TECHNIQUE: Transaxial images were obtained from the dome of thediaphragmto the symphysis pubis with oral contrast. 100 ml of Isovue 300 contrastwas administered. Multiplanar coronal a nd sagittal images werereformatted. COMPARISON: Prior abdomen and pelvic CT exam of June 26, 2005 FINDINGS:The visualized lung bases are unremarkable. The visualized portions oftheheart are withi n normal limits. Normal liver. There are surgical clips in the gallbladder fossaconsistentwith a prior cholecystectomy. Normal spleen. Normal pancreas. Normal bilateral adrenal glands. Normal right k idney. Normal left kidney. Food filled stomach. Nondistended unremarkable small bowel with goodprogression of oral contrast to the terminal ileum. Not opacifiednondistended colon with no identified a bnormality. The appendix isvisualized and appears normal. Minimal aortic calcification. Normal inferior vena cava. Normalretroperitoneum. Normal urinary bladder. Generally enlarged uterus with an en dometrialthickness of 18 mm. No adnexal masses or free fluid. There are enlarged and serpiginous venous structures of the right groinandabdomen appearing to originate from the left lower extremity. Th e leftexternal iliac vein and the left common femoral vein are very small incaliber suggesting chronic DVT. This is a change from the priorexamination of 2004. Internal iliac veins distally have incre ased insizebilaterally, another other collateral pathway. The main trunk of theleftinternal iliac vein, however, appears small to the level of the inferiorvena cava and may also be occluded. The right internal iliac vein isnormal in size and probably patent. Normal osseous structures. IMPRESSION:1. No acute bowel related findings. A specific bleeding site is notidentified. A mass lesion is not id entified. Patient does not appear tohave diverticulosis.2. 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 Enlargedpericolonicveins are not identified. Can not exclude a smaller bleedin g hemorrhoid.3. No additional abnormal abdominal or pelvic findings.4. Status post cholecystectomy.5. General uterine enlargement not substantially changed from the priorexamination and probably rela osmin to multiparity. Endometrial thickening.An endometrium of 18 mm may be normal in the late secretory phase. Signed:Kym Mayberry M.D.September 30, 2012 at 7:30:49 PM [id number] Sig vadim TT/TT If you are the referring physician and would like to consult with theradiologist who provided this interpretation, please contact Kym Foley M.D. at [phone]. If this radiologist is unavailable, youwillbe directed to another radiologist to assist. If you are a patient with a question regarding this report, pleasecontactyour referring physician directly. Professional Interpretation Provided By: [employer], Phone , These documents contain legally protected and confidential healthinformation intended only for the use of the individual or entity nameda yakov. If you are not the intended recipient, you are hereby notifiedthatany disclosure, copying, distribution, or other use of these documents isstrictly prohibited. If you have received this informatio n in error,pleasenotify the sender immediately and arrange for the return or destructionofthese documents. Dictated on 09/30/121806 by Shawanda LEON,TheresaTranscribed on 09/30/121937 by ITS IMPORTSign by Shawanda LEON,Kym on 09/30/121938 Sign by: Kym Mayberry MD 09-Gbo-872801:49 PT (Prothrobim Time) Comments: PATIENT NOT FASTINGPERFORMED BY: [facility] [id number] Information: [id number] ([id number]) Prothrombin Time 14.2 {sec} (Abnormal) Range: 9.1-12.0 INR 1.4 (Abnormal) Range: 0.8-1.2 Comments: Reference interval is for non-anticoagulated patients. . Suggested INR therapeutic range for Vitamin K anta gonist therapy: Standard Dose (moderate intensity therapeutic range): 2.0 - 3.0 Higher intensity therapeutic range 2.5 - 3.5 5-Mav-028319:22 PT (Prothrobim Time) Comments: PATIENT NOT FASTINGPERFORMED BY: [facility] [id number] Information: [id number] (55111) Prothrombin Time 30.3 {sec} (Abnormal) Range: 9.1-12.0 INR 3.0 (Abnormal) Range: 0.8-1.2 Comments: Reference interval is for non-anticoagulated patients. . Suggested INR therapeutic range for Vitamin K anta gonist therapy: Standard Dose (moderate intensity therapeutic range): 2.0 - 3.0 Higher intensity therapeutic range 2.5 - 3.5 :01 PTT (ACTIVATED PARTIAL Comments: PATIENT NOT FASTINGPERFORMED BY: [facility] [facility] [id number] THROMBOPLASTIN TIME) (48101) aPTT 46 {sec} (Abnormal) Range: 24-33 Comments: This test has not been validated for monitoring unfractionated heparintherapy. aPTT-based therapeutic ranges for unfractionated heparintherapy have not been established. For general guidelines onHeparin monitoring, refer to the [facility] Directory of Services. :01 PT (PROTHROMBIN TIME) (01807) Comments: PATIENT NOT FASTINGPERFORMED BY: [facility] [id number] Prothrombin Time 33.5 {sec} (Abnormal) Range: 9.1-12.0 INR 3.3 (Abnormal) Range: 0.8-1.2 Comments: Reference interval is for non-anticoagulated patients. . Suggested INR therapeutic range for Vitamin K anta gonist therapy: Standard Dose (moderate intensity therapeutic range): 2.0 - 3.0 Higher intensity therapeutic range 2.5 - 3.5 : PROLACTIN (15773) Comments: PATIENT NOT FASTINGPERFORMED BY: [facility] HospitalEvygfd4141 [facility] [id number] Prolactin 26.7 ng/mL (Abnormal) Range: 4.8-23.3 : METABOLIC PANEL, Comments: PATIENT NOT FASTINGPERFORMED BY: [facility] HospitalHvkmcz5297 [facility] [id number] Information: [id number] COMPREHENSIVE (26344) ALT (SGPT) 34 [iU]/L (Abnormal) Range: 0-32 AST (SGOT) 28 [iU]/L (Normal) Range: 0-40 Alkaline Phosphatase, S 55 [iU]/L (Normal) Range: 25-150 Bilirubin, Total 0.5 mg/dL (Normal) Range: 0.0-1.2 A/G Ratio 1.5 (Normal) Range: 1.1-2.5 Globulin, Total 2.6 g/dL (Normal) Range: 1.5-4.5 Albumin, Serum 3.8 g/dL (Normal) Range: 3.5-5.5 Protein, Total, Serum 6.4 g/dL (Normal) Range: 6.0-8.5 Calcium, Serum 8.4 mg/dL (Abnormal) Range: 8.7-10.2 Carbon Dioxide, Total 23 mmol/L (Normal) Range: 20-32 Chloride, Serum 105 mmol/L (Normal) Range: 97-108 Potassium, Serum 3.7 mmol/L (Normal) Range: 3.5-5.2 Sodium, Serum 139 mmol/L (Normal) Range: 134-144 BUN/Creatinine Ratio 14 (Normal) Range: 9-23 eGFR If Africn Am 126 mL/min/1.73 (Normal) eGFR If NonAfricn Am 109 mL/min/1.73 (Normal) Creatinine, Serum 0.64 mg/dL (Normal) Range: 0.57-1.00 BUN 9 mg/dL (Normal) Range: 6-24 Glucose, Serum 107 mg/dL (Abnormal) Range: 65-99 :01 TSH (68776) Comments: PATIENT NOT FASTINGPERFORMED BY: [facility] [id number] TSH 3.350 {uIU/mL} (Normal) Range: 0.450-4.500 :01 CBC (AUTO) (89561) Comments: PATIENT NOT FASTINGPERFORMED BY: [address] [id number] Platelets 235 {x10E3/uL} (Normal) Range: 140-415 RDW 13.7 % (Normal) Range: 12.3-15.4 MCHC 32.4 g/dL (Normal) Range: 31.5-35.7 MCH 29.8 pg (Normal) Range: 26.6-33.0 MCV 92 fL (Normal) Range: 79-97 Hematocrit 39.5 % (Normal) Range: 34.0-46.6 Hemoglobin 12.8 g/dL (Normal) Range: 11.1-15.9 RBC 4.30 {x10E6/uL} (Normal) Range: 3.77-5.28 WBC 5.4 {x10E3/uL} (Normal) Range: 4.0-10.5 :01 TEST - SERUM Comments: PATIENT NOT FASTINGPERFORMED BY: [address] [id number] QUANTITATIVE (HCG) (16428) hCG,Beta Subunit,Qual,Serum Negative m[iU]/mL (Normal) 67-Ohw-194618:40 Prothrombin Time (PT) Comments: PERFORMED BY: [address] [id number] Prothrombin Time 23.2 {sec} (Abnormal) Range: 9.1-12.0 INR 2.2 (Abnormal) Range: 0.8-1.2 Comments: Reference interval is for non-anticoagulated patients. . Suggested INR therapeutic range for Vitamin K anta gonist therapy: Standard Dose (moderate intensity therapeutic range): 2.0 - 3.0 Higher intensity therapeutic range 2.5 - 3.5 7-Ygz-264118:02 PT (Prothrobim Time) Comments: PATIENT NOT FASTINGPERFORMED BY: [address] [place] [id number] Information: [id number] (16471) Prothrombin Time 42.1 {sec} (Abnormal) Range: 9.1-12.0 INR 4.1 (Abnormal) Range: 0.8-1.2 Comments: Client Requested Flag Reference interval is for non- anticoagulated patients. . Suggested INR therapeutic ra nge for Vitamin K antagonist therapy: Standard Dose (moderate intensity therapeutic range): 2.0 - 3.0 Higher intensity therapeutic range 2.5 - 3.5 80-Ilm-840218:23 PT (Prothrobim Time) Comments: PATIENT NOT FASTINGPERFORMED BY: [place] [address] [facility] [id number] Information: [id number] (04231) Prothrombin Time 13.8 {sec} (Abnormal) Range: 9.1-12.0 INR 1.3 (Abnormal) Range: 0.8-1.2 Comments: Reference interval is for non-anticoagulated patients. . Suggested INR therapeutic range for Vitamin K anta gonist therapy: Standard Dose (moderate intensity therapeutic range): 2.0 - 3.0 Higher intensity therapeutic range 2.5 - 3.5 53-Con-509906:29 PT (Prothrobim Time) Comments: PATIENT NOT FASTINGPERFORMED BY: [place] [address] [facility] [id number] Information: [id number] (44360) Prothrombin Time 13.1 {sec} (Abnormal) Range: 9.1-12.0 INR 1.2 (Normal) Range: 0.8-1.2 Comments: Reference interval is for non-anticoagulated patients. . Suggested INR therapeutic range for Vitamin K anta gonist therapy: Standard Dose (moderate intensity therapeutic range): 2.0 - 3.0 Higher intensity therapeutic range 2.5 - 3.5 80-Xeh-633539:10 PT (Prothrobim Time) Comments: PATIENT NOT FASTINGPERFORMED BY: [place] [address] [facility] [id number] Information: [id number] (15696) Prothrombin Time 15.3 {sec} (Abnormal) Range: 9.1-12.0 INR 1.5 (Abnormal) Range: 0.8-1.2 Comments: Reference interval is for non-anticoagulated patients. . Suggested INR therapeutic range for Vitamin K anta gonist therapy: Standard Dose (moderate intensity therapeutic range): 2.0 - 3.0 Higher intensity therapeutic range 2.5 - 3.5 :30 Rapid Flu (56434 x 2) Influenza A Ag negative (Normal) :45 PT (Prothrobim Time) Comments: PATIENT NOT FASTINGPERFORMED BY: [address] [id number] Information: [id number] (50847) Prothrombin Time 16.4 {sec} (Abnormal) Range: 9.1-12.0 INR 1.6 (Abnormal) Range: 0.8-1.2 Comments: Reference interval is for non-anticoagulated patients. . Suggested INR therapeutic range for Vitamin K anta gonist therapy: Standard Dose (moderate intensity therapeutic range): 2.0 - 3.0 Higher intensity therapeutic range 2.5 - 3.5 :32 PT (Prothrobim Time) Comments: PATIENT NOT FASTINGPERFORMED BY: [place] [address] [facility] [facility] [id number] Information: [id number] ([id number]) Prothrombin Time 21.6 {sec} (Abnormal) Range: 9.1-12.0 INR 2.1 (Abnormal) Range: 0.8-1.2 Comments: Reference interval is for non-anticoagulated patients. . Suggested INR therapeutic range for Vitamin K anta gonist therapy: Standard Dose (moderate intensity therapeutic range): 2.0 - 3.0 Higher intensity therapeutic range 2.5 - 3.5 :58 Prothrombin Time (PT) Comments: PERFORMED BY: [address] [id number] Prothrombin Time 15.6 {sec} (Abnormal) Range: 9.1-12.0 INR 1.5 (Abnormal) Range: 0.8-1.2 Comments: Reference interval is for non-anticoagulated patients. . Suggested INR therapeutic range for Vitamin K anta gonist therapy: Standard Dose (moderate intensity therapeutic range): 2.0 - 3.0 Higher intensity therapeutic range 2.5 - 3.5 08-Qao-318978:28 PT INR 2.2 (Normal) PTP 22.4 s (Abnormal) Range: 11.9-14.4 :01 PT INR 1.5 (Normal) PTP 17.2 s (Abnormal) Range: 11.9-14.4 :23 PT INR 2.5 (Normal) PTP 25.3 s (Abnormal) Range: 11.9-14.4 :46 LIPID VLDL 26 mg/dL (Normal) Range: 5-40 LDL 123 mg/dL (Normal) Range: 0-130 HDL 55 mg/dL (Normal) Comments: Reference Range HDL <40 mg/dL Low HDL Cholesterol HDL >or= 60 mg/dL High HDL Cholesterol TRIG 129 mg/dL (Normal) Comments: Serum Triglycerides Reference Interval Normal <150 mg/dL Borderline high 150 - 199 mg/dL High 200 - 499 mg/dL Very High > or = 500 mg/dL CHOL 204 mg/dL (Abnormal) Comments: <200 mg/dL Desirable 200-240 mg/dL Borderline >240 mg/dL High Risk [id number]-Zyr-[id number]:19 PT INR 2.1 (Normal) PTP 21.7 s (Abnormal) Range: 11.9-14.4 :01 PT INR 2.3 (Normal) PTP 24.0 s (Abnormal) Range: 11.9-14.4 :15 PT INR 2.3 (Normal) PTP 24.3 s (Abnormal) Range: 11.9-14.4 :59 PT INR 1.9 (Normal) PTP 21.1 s (Abnormal) Range: 11.9-14.4 :01 CUUR URC See Note {CFU/mL} (Normal) Comments: COLONY COUNT 50,000- 80,000 ORGANISM 1: MIXED GRAM POSITIVE ORGANISMS :07 Urinalysis, Office ([id number]) UA - BILIRUBIN Negative (Normal) UA - BLOOD Negative (Normal) UA - GLUCOSE Negative (Normal) UA - KETONES Negative mg/dL (Normal) UA - LEUKOCYTE ESTERASE Small (Normal) UA - NITRITE Negative (Normal) UA - PH 6.5 (Normal) UA - PROTEIN Negative mg/dL (Normal) UA - SPECIFIC GRAVITY 1.010 (Normal) URINE UROBILINGN DENISE TIMED Normal mg/dL (Normal) 97-Mfn-646821:52 PT INR 1.6 (Normal) PTP 18.2 s (Abnormal) Range: 11.9-14.4 59-Evg-225170:12 PT INR 1.1 (Normal) PTP 13.6 s (Normal) Range: 11.9-14.4 54-Elj-13906:01 GALLBLADDER Radiology Report See Note (Normal) Comments: PROCEDURE: ABDOMINAL ULTRASOUND - RIGHT UPPER QUADRANT REASON FOR VISIT: Female, 41 years old. Right upper quadrant pain. TECHNIQUE: Ultrasound evaluation of the right upper quadrant wasperformed with real-time ultrasonography and static grayscale imaging. TECHNICAL QUALITY: Adequate. COMPARISON: None. FINDINGS: Liver: Normal size of the liver. The liver measures 16.8 cm. There isnormal echogenicity of the liver. There is no demonstrated mass lesion.There is no intrahepatic biliary ductal dilatation. Gallbladder: Normal distended gallbladder. The gallbladder wallmeasures4 mm. The re are multiple echogenic structures within the gallbladder,consistent with multiple gallstones. There is a positive sonographicMurphy's sign. There is no pericholecystic fluid. Common Bile Duct (C.B. D.): Normal size C.B.D. The common bile ductmeasures 4 mm. Pancreas: Normal size of the head, body of the pancreas. The tailportionof the pancreas was obscured due to overlying bowel gas. There is normalechogenicity of the pancreas. There is no demonstrated pancreatic massorcyst. Right Kidney: Normal size of the right kidney. The right ocswkzwodzyvok51.5 cm. Normal renal cortex. The renal co rtex measures 1.4 cm. Thereisno demonstrated renal mass or cyst. There are no demonstrated renalcalculi. There is no hydronephrosis. There is no ascites. IMPRESSION:Cholelithiasis.Fatty infiltration of the liver. To consult with a radiologist regarding this report, please call our [id number] line @ Dictated on 09/25/11 0903 by Leatha LEON,Jessicaranscribed on 09/25/11 1014 by ITS IMPORTSign by Leatha LEON,Jaxon on 09/25/11 1015 Sign by: Jaxon Adame MD HPYL < 0.9 U/mL Range: 0.0-0.8 28:52 (Normal) Comments: Negative <0.9 Indeterminate 0.9 - 1.0 Positive >1.0Performed at: [facility] [id number] Director: Chloé Mccarthy MD, Phone: [phone] :[phone] PT INR 2.0 (Normal) PTP 21.8 s (Abnormal) Range: 11.9-14.4 :32 PRO TIME INR 1.9 (Normal) PROTIME 21.3 s (Abnormal) Range: 11.9-14.4 :09 PRO TIME INR 2.2 (Normal) PROTIME 23.2 s (Abnormal) Range: 11.9-14.4 :53 PRO TIME INR 1.6 (Normal) PROTIME 18.8 s (Abnormal) Range: 11.9-14.4 :02 PRO TIME INR 2.5 (Normal) PROTIME 25.8 s (Abnormal) Range: 11.9-14.4 :09 PRO TIME INR 2.4 (Normal) PROTIME 25.2 s (Abnormal) Range: 11.9-14.4 :25 PRO TIME INR 1.5 (Normal) PROTIME 18.0 s (Abnormal) Range: 11.9-14.4 :09 PRO TIME INR 2.2 (Normal) PROTIME 23.9 s (Abnormal) Range: 11.9-14.4 :27 PRO TIME INR 2.9 (Normal) PROTIME 28.8 s (Abnormal) Range: 11.9-14.4 :20 PRO TIME INR 2.5 (Normal) PROTIME 26.1 s (Abnormal) Range: 11.9-14.4 :36 PRO TIME INR 2.2 (Normal) PROTIME 23.8 s (Abnormal) Range: 11.9-14.4 Comments: Effective NOVEMBER 25, 2010. :01 PRO TIME INR 2.1 (Normal) PROTIME 21.5 s (Abnormal) Range: 9.1-11.7 :29 PRO TIME INR 1.8 (Normal) PROTIME 18.7 s (Abnormal) Range: 9.1-11.7 :31 PRO TIME INR 2.0 (Normal) PROTIME 20.4 s (Abnormal) Range: 9.1-11.7 :54 PT (Prothrobim Time) Comments: inr; PATIENT NOT FASTINGPERFORMED BY: [facility] [id number] [facility] [id number] Information: [id number] ([id number]) Prothrombin Time 16.3 {sec} (Abnormal) Range: 9.1-12.0 INR 1.6 (Abnormal) Range: 0.8-1.2 Comments: Reference interval is for non-anticoagulated patients. . Suggested INR therapeutic range for Vitamin K anta gonist therapy: Standard Dose (moderate intensity therapeutic range): 2.0 - 3.0 Higher intensity therapeutic range 2.5 - 3.5 :56 PRO TIME INR 2.8 (Normal) PROTIME 28.5 s (Abnormal) Range: 9.1-11.7 :21 PRO TIME INR 2.2 (Normal) PROTIME 22.3 s (Abnormal) Range: 9.1-11.7 :27 PRO TIME INR 2.5 (Normal) PROTIME 25.7 s (Abnormal) Range: 9.1-11.7 :57 PRO TIME INR 1.6 (Normal) PROTIME 17.0 s (Abnormal) Range: 9.1-11.7 :23 COMPLETE UA BACTERIA RARE {/hpf} (Normal) LEUK ESTERASE SeeNote (Normal) Comments: Result: NEGATIVE MUCUS, URINE 0 SEEN {/hpf} (Normal) RBC-UA 0 SEEN {/hpf} (Normal) Range: 0-5 SQUAM EPI SeeNote {/hpf} (Normal) Range: 5-10 Comments: Result: 0-5 SEEN WBC SeeNote {/hpf} (Normal) Range: 0-5 Comments: Result: 0-5 SEEN BILIRUBIN URINE SeeNote (Normal) Comments: Result: NEGATIVE KETONE UR SeeNote mg/dL (Normal) Comments: Result: NEGATIVE NITRITE UR SeeNote (Normal) Comments: Result: NEGATIVE OCCULT BLOOD-UR 1+ (Abnormal) pH UR 7.0 (Normal) Range: 5.0-8.0 PROT DIPSTX SeeNote (Normal) Comments: Result: NEGATIVE SP.GR. DIPSTX 1.010 (Normal) Range: 1.002-1.030 UROBILI 0.2 EU/dl (Normal) Range: 0.2 - 1.0 CLARITY SeeNote (Normal) Comments: Result: SL CLOUDY GLUCOSE, UR SeeNote (Normal) Comments: Result: NEGATIVE COLOR YELLOW (Normal) :59 TSH 2.11 {uIU/mL} (Normal) Range: 0.358-3.74 :59 LIPID HDL 32 mg/dL (Abnormal) Comments: Reference Range HDL <40 mg/dL Low HDL Cholesterol HDL >or= 60 mg/dL High HDL Cholesterol LDL 99 mg/dL (Normal) Range: 0-130 VLDL 32 mg/dL (Normal) Range: 5-40 CHOL 163 mg/dL (Normal) Comments: <200 mg/dL Desirable 200-240 mg/dL Borderline >240 mg/dL High Risk TRIG 158 mg/dL (Normal) Comments: Serum Triglycerides Reference Interval Normal <150 mg/dL Borderline high 150 - 199 mg/dL High 200 - 499 mg/dL Very High > or = 500 mg/dL :59 COMP METABOLIC A/G 1.0 {RATIO} (Normal) Range: 0.9-2.4 ALK P 88 U/L (Normal) Range: 50-136 ALT 53 U/L (Normal) Range: 12-78 AST 31 U/L (Normal) Range: 15-37 CA 8.6 mg/dL (Normal) Range: 8.5-10.1 CL 104 mmol/L (Normal) Range: 98-107 CO2 28.0 mmol/L (Normal) Range: 21.0-32.0 GAP 10 (Normal) Range: 5-15 K 4.3 mmol/L (Normal) Range: 3.5-5.1 NA 142 mmol/L (Normal) Range: 136-145 T BILI 0.90 mg/dL (Normal) Range: 0.00-1.00 ALB 3.5 g/dL (Normal) Range: 3.4-5.0 BUN 10 mg/dL (Normal) Range: 7-18 BUN/CRE 12.5 {RATIO} (Normal) Range: 10-20 CREAT,SERUM 0.8 mg/dL (Normal) Range: 0.6-1.0 EST GFR 84 mL/min (Normal) EST GFR - AA 102 mL/min (Normal) GLOB 3.6 g/dL (Normal) Range: 2.7-4.2 GLU 101 mg/dL (Normal) Range: 70-110 T PROT 7.1 g/dL (Normal) Range: 6.4-8.2 :50 PRO TIME INR 1.4 (Normal) PROTIME 14.6 s (Abnormal) Range: 9.1-11.7 :50 CBCD,SMEAR DIFF EOS 3 % (Normal) Range: 0-5 MONOCYTE 9 % (Normal) Range: 0-10 PLT EST SeeNote (Normal) Comments: Result: ADEQUATE REACTIVE LYMPH RARE (Normal) RED CELL MORPH SeeNote {NORMAL} (Normal) Comments: Result: NORM C+C ABSOLUTE NEUT 4.1 3/uL (Normal) Range: 2.0-7.7 BAND 3 % (Normal) Range: 0-5 CELLS COUNTED 100 (Normal) LYMPH 35 % (Normal) Range: 19-41 PLT 230 K/mm3 (Normal) Range: 150-450 RDW 12.9 % (Normal) Range: 11.6-14.6 SEGS 50 % (Normal) Range: 47-70 HCT 45.0 % (Normal) Range: 37-47 HGB 15.4 g/dL (Normal) Range: 12.0-16.0 MCH 31.3 pg (Normal) Range: 27.0-32.0 MCHC 34.2 g/dL (Normal) Range: 32-36 MCV 91.7 fL (Normal) Range: 81-99 RBC 4.91 {M/mm3} (Normal) Range: 4.2-5.4 WBC 7.3 K/mm3 (Normal) Range: 4.4-11.0 :22 PRO TIME INR 2.2 (Normal) PROTIME 22.4 s (Abnormal) Range: 9.1-11.7 :48 KNEE,4 OR MORE VIEWS (MT) Radiology Report See Note (Normal) Comments: Exam Number: [id number] he patient is a 40-year-old female with pain and limited range ofmotion.X-RAY EXAMINATION LEFT KNEE TECHNIQUE:Four views of the knee. COMPARISON:None. FINDINGS:Normal visualized d istal femur. Normal visualized proximal tibia. Normal visualized proximal fibula. Normal medial femorotibial compartment. Normal lateral femorotibialcompartment. Normal patellofemoral articulation. The re is no demonstrated soft tissue swelling. IMPRESSION:Normal x-ray examination of the knee. Reported By: MONICA BLANCO M.D. :48 PRO TIME INR 2.3 (Normal) PROTIME 23.8 s (Abnormal) Range: 9.1-11.7 :15 HCG QUANT. < 1 m[iU]/mL (Normal) :15 PROGESTER. 4317 0.9 ng/mL (Normal) Comments: Follicular phase 0.2 - 1.5Luteal phase 1.7 - 27.0Ovulation phase 0.8 - 3.0First trimester 8.8 - 48.6Second trimester 12.4 - 75.8Third trimester 58.5 - 222. 3Postmenopausal 0.1 - 0.8Performed at: [employer] [address] [id number] Director: Chloé Mccarthy MD, Phone: [phone] :[phone] PRO TIME INR 3.3 (Normal) PROTIME 34.2 s (Abnormal) Range: 9.1-11.7 :26 PT (Prothrobim Time) Comments: PATIENT NOT FASTINGPERFORMED BY: [employer] [facility] [employer] [address] [id number] Information: [id number] ([id number]) Prothrombin Time 41.4 {sec} (Abnormal) Range: 9.1-12.0 INR 4.0 (Abnormal) Range: 0.8-1.2 Comments: Client Requested Flag Reference interval is for non- anticoagulated patients. . Suggested INR therapeutic ra nge for Vitamin K antagonist therapy: Standard Dose (moderate intensity therapeutic range): 2.0 - 3.0 Higher intensity therapeutic range 2.5 - 3.5 2-Jpt-421304:51 CHEST, PA AND LATERAL (MT) Radiology Report See Note (Normal) Comments: Exam Number: [id number] CHEST PA AND LATERAL PA and lateral chest radiographs were obtained. No prior study isavailable for comparison. HISTORYThis is a 39-year-old female patient with history of cough andshortness of breath. FINDINGSThe heart size is upper limits of normal. The lungs are clear. Thereis no evidence of infiltration. There is evidence of calcified oldgranulomatous disease. IMPRESSIONN o acute abnormality is seen. Reported By: JAXON ADAME 9-Nzr-170720:49 Influenza B Ag ([id number]) Comments: neg Influenza A Ag negative (Normal) 2-Jnm-429346:49 Influenza A Ag (05984) Comments: neg Influenza A Ag negative (Normal) 47-Njy-273749:56 PRO TIME INR 2.0 (Normal) PROTIME 20.8 s (Abnormal) Range: 9.1-11.7 6-Qmu-862328:47 CHEST WITH CONTRAST Radiology Report See Note (Normal) Comments: Exam Number: [id number] CT SCAN OF THE CHEST WITH CONTRAST HISTORYA 39-year-old woman with a history of a pulmonary embolism and DVT.Now she complains of shortness of breath which has worsened over thepa st month. No history of diabetes or high blood pressure. CT of the chest under the pulmonary embolism protocol. 100 mL ofIsovue 370 injected intravenously for contrast enhancement. [place] coron al reconstructions. The pulmonary arteries fill normally with contrast. No evidence ofpulmonary embolism. The aorta is normal. No dissection or aneurysm.The coronary arteries are grossly normal in limited evaluation. The mediastinum contains only scattered small lymph nodes. Noadenopathy in the mediastinum or pay[place]. No pericardial effusion. Lungs are clear. No effusions. Osseous structures are normal. High attenuation within the neck of the gallbladder may be within thegallbladder wall or may represent small calcified gallstones. Theformer is favored. IMPRESSION1) Essentially normal CT sca n of the chest with contrast.No evidence of pulmonary embolism.2) High attenuation in the neck of the gallbladder may be within thegallbladder wall or may be small calcified gallstones. The former isfavored. Reported By: SHANNEN KAMARA M.D. :11 CBC MCH 30.3 pg (Normal) Range: 27.0-32.0 MCHC 33.3 g/dL (Normal) Range: 32-36 MPV 8.7 fL (Normal) Range: 6.5-12.0 PLT 227 K/mm3 (Normal) Range: 150-450 RDW 13.2 % (Normal) Range: 11.6-14.6 HCT 43.6 % (Normal) Range: 37-47 HGB 14.5 g/dL (Normal) Range: 12.0-16.0 MCV 91.0 fL (Normal) Range: 81-99 RBC 4.79 {M/mm3} (Normal) Range: 4.2-5.4 WBC 7.1 K/mm3 (Normal) Range: 4.4-11.0 2-Xny-495247:11 PRO TIME INR 1.7 (Normal) PROTIME 17.2 s (Abnormal) Range: 9.1-11.7 48-Ioh-102545:00 PRO TIME INR 2.2 (Normal) PROTIME 24.2 s (Abnormal) Range: 9.1-11.7 49-Hfb-597684:58 PRO TIME INR 1.8 (Normal) PROTIME 19.8 s (Abnormal) Range: 9.1-11.7 54-Lir-248445:55 REYNALDO-D [id number] Comments: FAX PT RESULTS REYNALDO-DIRECT SeeNote (Normal) Comments: Result: Negative :55 AT3 FUNCT 10748 103 % (Normal) Comments: FAX PT RESULTS Range: 75-135 Comments: Performed At: [facility] Ewdzfjyyuc025[address] [facility] [place] [id number] At: [facility] [id number] [place], [place] [id number] At: [facility] [address]Dublin, [place] [id number] :55 C-REACTIVE PROT 11.40 mg/L (Abnormal) Comments: FAX PT RESULTS Range: 0.0-3.0 Comments: C-Reactive Protein (CRP) provides useful information for thediagnosis, therapy and monitoring of inflammatory processesand associated diseases. For the evaluation of Relative Riskfor Cardiovascular Dise ase, a High Sensitivity CRP (HSCRP)should be ordered. :55 CBCD,SMEAR DIFF Comments: FAX PT RESULTS BAND 2 % (Normal) Range: 0-5 CELLS COUNTED 100 (Normal) EOS 4 % (Normal) Range: 0-5 HCT 44.1 % (Normal) Range: 37-47 HGB 15.0 g/dL (Normal) Range: 12.0-16.0 LYMPH 38 % (Normal) Range: 19-41 MCH 30.4 pg (Normal) Range: 27.0-32.0 MCHC 33.9 g/dL (Normal) Range: 32-36 MCV 89.5 fL (Normal) Range: 81-99 MONOCYTE 7 % (Normal) Range: 0-10 PLT 234 K/mm3 (Normal) Range: 150-450 PLT EST SeeNote (Normal) Comments: Result: ADEQUATE RBC 4.93 {M/mm3} (Normal) Range: 4.2-5.4 RDW 12.8 % (Normal) Range: 11.6-14.6 RED CELL MORPH SeeNote {NORMAL} (Normal) Comments: Result: NORM C+C SEGS 49 % (Normal) Range: 47-70 WBC 6.0 K/mm3 (Normal) Range: 4.4-11.0 :55 COMP METABOLIC Comments: FAX PT RESULTS A/G 0.9 {RATIO} (Normal) Range: 0.9-2.4 ALB 3.5 g/dL (Normal) Range: 3.4-5.0 ALK P 80 U/L (Normal) Range: 50-136 ALT 35 U/L (Normal) Range: 12-78 Comments: Please Note: Revised Reference Range effective 09 AST 24 U/L (Normal) Range: 15-37 BUN 10 mg/dL (Normal) Range: 7-18 BUN/CRE 14.3 {RATIO} (Normal) Range: 10-20 CA 8.7 mg/dL (Normal) Range: 8.5-10.1 CL 103 mmol/L (Normal) Range: 98-107 CO2 26.0 mmol/L (Normal) Range: 21.0-32.0 CREAT,SERUM 0.7 mg/dL (Normal) Range: 0.6-1.0 EST GFR 98 mL/min (Normal) EST GFR - AA 119 mL/min (Normal) GAP 11 (Normal) Range: 5-15 GLOB 4.0 g/dL (Normal) Range: 2.7-4.2 GLU 84 mg/dL (Normal) Range: 70-110 K 3.9 mmol/L (Normal) Range: 3.5-5.1 NA 140 mmol/L (Normal) Range: 136-145 T BILI 0.50 mg/dL (Normal) Range: 0.00-1.00 T PROT 7.5 g/dL (Normal) Range: 6.4-8.2 :55 COMPLETE UA Comments: FAX PT RESULTS BACTERIA 1+ {/hpf} (Normal) BILIRUBIN URINE SeeNote (Normal) Comments: Result: NEGATIVE CLARITY CLOUDY (Normal) COLOR YELLOW (Normal) GLUCOSE, UR SeeNote (Normal) Comments: Result: NEGATIVE KETONE UR SeeNote mg/dL (Normal) Comments: Result: NEGATIVE LEUK ESTERASE SeeNote (Normal) Comments: Result: NEGATIVE MUCUS, URINE 0 SEEN {/hpf} (Normal) NITRITE UR SeeNote (Normal) Comments: Result: NEGATIVE OCCULT BLOOD-UR 1+ (Abnormal) pH UR 7.0 (Normal) Range: 5.0-8.0 PROT DIPSTX SeeNote (Normal) Comments: Result: NEGATIVE RBC-UA SeeNote {/hpf} (Normal) Range: 0-5 Comments: Result: 0-5 SEEN SP.GR. DIPSTX 1.015 (Normal) Range: 1.002-1.030 SQUAM EPI SeeNote {/hpf} (Normal) Range: 5-10 Comments: Result: 10-25 SEEN UROBILI 0.2 EU/dl (Normal) Range: 0.2 - 1.0 WBC SeeNote {/hpf} (Normal) Range: 0-5 Comments: Result: 0-5 SEEN :55 ESR Comments: FAX PT RESULTS SED RATE 10 mm/h (Normal) Range: 0-20 :55 FACVL [id number] Comments: FAX PT RESULTS COMMENT Comment (Normal) Comments: Genetic counselors are available for health care providers to discuss results at [phone] [place]. .Methodology:DNA analysis of the Factor V gene was performed by allele-specific PCR followed by gel electrophoresis. The diagnosticsensitivity and specificity is >99% for both. Molecular-based testing is highly accurate, but as in any laboratorytest, diagnostic errors may occur. All test results must becombined with clinical information for the most accurateinterpretation. .References:Jacob Lagunas (1995). Clin Lab Med 16:169-186. .Raad Castaneda, Ph.D.Tammi Velasco, Ph.D.Lindsay Roper h.Iker.Celeste Coronel, Ph.D.Malaika Madden, Ph.D.Shahla Brown M.D. . FACTOR V LEIDEN Comment (Normal) Comments: Result: Negative (no mutation found) .Factor V Leiden is a specific mutation (R506Q) in the factorV gene that is associated with an increased r isk of venousthrombosis. Factor V Leiden is more resistant toinactivation by activated protein C. As a result, factor Vpersists in the circulation leading to a mild hyper-coagulable state. The Leiden mutation accounts for 90% -95% of APC resistance. Factor V Leiden has been reported inpatients with deep vein thrombosis, pulmonary embolus,central retinal vein occlusion, cerebral sinus thrombosisand hepatic vein thrombosis. Other risk factors to beconsidered in the workup for venous thrombosis include [id number] mutation in the factor II (prothrombin) gene,protein S and C deficiency, and antithromb in deficiencies.Anticardiolipin antibody and lupus anticoagulant analysismay be appropriate for certain patients, as well ashomocysteine levels. .Contact your local [facility] for information on how to orderadditional testing if desired. . FOLATES 18.30 ng/mL Comments: FAX PT RESULTS :55 (Abnormal) Range: 3.1-17.5 :55 LIPID Comments: FAX PT RESULTS CHOL 171 mg/dL (Normal) Comments: <200 mg/dL Desirable 200-240 mg/dL Borderline >240 mg/dL High Risk HDL 33 mg/dL (Abnormal) Comments: Reference Range HDL <40 mg/dL Low HDL Cholesterol HDL >or= 60 mg/dL High HDL Cholesterol LDL 112 mg/dL (Normal) Range: 0-130 TRIG 130 mg/dL (Normal) Comments: Serum Triglycerides Reference Interval Normal <150 mg/dL Borderline high 150 - 199 mg/dL High 200 - 499 mg/dL Very High > or = 500 mg/dL VLDL 26 mg/dL (Normal) Range: 5-40 28-Uyq-267625:55 LUPUS [id number] Comments: FAX PT RESULTS DILUTE PT (dPT) 90.0 {sec} (Abnormal) Range: 0.0-56.6 dPT Conf. Ratio 1.01 {Ratio} (Normal) Range: 0.00-1.20 Comments: Please note referenceinterval change DRVVT 53.9 {sec} (Abnormal) Range: 0.0-44.5 dRVVT MIX 41.4 {sec} (Normal) Range: 0.0-44.5 Interpretation Comment (Normal) Comments: No Lupus Anticoagulant was detected. PTT-LA 51.8 {sec} (Abnormal) Range: 0.0-50.0 PTT-LA Incu.Mix 46.5 {sec} (Normal) Range: 0.0-50.0 PTT-LA Mix 44.9 {sec} (Normal) Range: 0.0-50.0 THROMBIN TIME 18.1 {sec} (Normal) Range: 0.0-20.0 :55 MICROALB:CRE UR Comments: FAX PT RESULTS MALB:CREAT 33.1 {mg/g_CRE} (Abnormal) MICROALBUMIN,UR 38.4 mg/L (Normal) UR CREAT 115.7 mg/dL (Normal) :55 MTHFR [id number] Comments: FAX PT RESULTS COMMENT Comment (Normal) Comments: Genetic counselors are available to discuss these results with health care providers at [phone] .The MTHFR enzyme is responsible for creating the circulatingform of folate. Folate is important in homocysteine regula-tion. Defects in the MTHFR enzyme can indirectly causeelevated homocysteine levels. The C677T mutation in theMTH FR gene can cause elevated homocysteine levels in is[place]-viduals with insufficient folate, particularly when thereare two mutations present. The T7597S mutation has not beenassociated with elevated homoc ysteine levels unless a [id number] is also present. Elevated serum homocysteine levelshave been associated with an increased risk of cerebrovasc-ular disease, coronary artery disease, myocardial infa rction,and venous thrombosis. In women, complicationsand an increased risk of open neural tube defectshave also been reported. The relationship between theseconditions and MTHFR mutati ons is controversial. .Dietary folic acid, B6 and B12 supplementation has beensuggested to lower homocysteine levels in some people. Folicacid s upplementation has been shown to reduce the recurrenceof neural tube defects.Methodology:DNA analysis of the MTHFR gene was performed by PCRamplification followed by restriction analysis. Thediagnostic sensitivity is >99% for both. Molecular-basedtesting is highly accurate, but as in any laboratory test,rare diagnostic errors may occur. All test results must becombined with clinical information f or the most accurateinterpretation. . MTHFR [id number] Comment (Normal) Comments: Result: [id number] copies of the same mutation (B0239C/N6213C) identified .Interpretation: .This patient's sample was analyzed for the MTHFR [id number] and A7631V. Two copies of the P0449X mutation wereidentified. Results for the C677T mutation were negative.Elevated homocyste ine levels have not been reported when twocopies of the B0060P mutation have been found. The diagnosisof hyperhomocysteinemia can not rely on DNA testing alonebut should take into consideration clinical findings andother studies, such as serum homocysteine levels. BecauseMTHFR mutations and their associated risks are inherited,genetic counseling and testing of at-risk family membersshould be consider ed. . 22-Ylh-067021:55 PRO TIME Comments: FAX PT RESULTS INR 2.2 (Normal) PROTIME 24.2 s (Abnormal) Range: 9.1-11.7 14-Rvt-957397:55 PROT C [id number] Comments: FAX PT RESULTS PROT C,[id number] 11 % (Abnormal) Range: 74-151 Comments: A deficiency of protein C (PC), either congenital oracquired, increases the risk of thromboembolism. AcquiredPC deficiency occurs more frequently than congenitaldeficiency. PC levels can be transiently diminished after athrombotic event or surgery. Oral anticoagulant therapywith warfarin will lower PC levels. Vitamin K deficiency,due to dietary insufficiency or malabsorption will alsolead to reduced P C levels. Acquired deficiency can befound in individuals with disseminated intravascularcoagulation (DIC) and sepsis. Severe hepatic disorders(hepatitis, cirrhosis, etc.), renal failure, malignancy brian nflammatory bowel disease can lead to diminished PClevels. Drug therapy with L-asparaginse or fluorouracil canalso reduce PC levels. PROTEIN C 08985 50 % (Abnormal) Range: 70-140 Comments: A deficiency of protein C (PC), either congenital oracquired, increases the risk of thromboembolism. AcquiredPC deficiency occurs more frequently than congenitaldeficiency. PC levels can be transiently diminished after athrombotic event or surgery. Oral anticoagulant therapywith warfarin will lower PC levels. Vitamin K deficiency,due to dietary insufficiency or malabsorption will alsolead to reduced P C levels. Acquired deficiency can befound in individuals with disseminated intravascularcoagulation (DIC) and sepsis. Severe hepatic disorders(hepatitis, cirrhosis, etc.), renal failure, malignancy brian nflammatory bowel disease can lead to diminished PClevels. Drug therapy with L-asparaginse or fluorouracil canalso reduce PC levels. [id number] PROT S [id number] Comments: FAX PT RESULTS PROTEIN S, FREE 52 % (Abnormal) Range: 56-124 Comments: A deficiency of protein S (PS), either congenital oracquired, increases the risk of thromboembolism. AcquiredPS deficiency is more common than congenital deficiency.Acquired deficiency can occur as the result of decreased PSsynthesis or increased consumption. PS synthesis can bediminished in a number of conditions including oralanticoagulant therapy, vitamin K deficiency, liver disease,chemotherapy an d L-asparaginse therapy. PS consumptioncan occur during disseminated intravascular coagulation(DIC), acute thrombosis, polycythemia vera, sickle celldisease and essential thrombocythemia. Free PS antige n andPS activities are also often diminished in nephroticsyndrome. .A portion of the PS in blood is bound to J1p-xpnieivmbjzcxl (C4b-BP). C4b-BP is and acute phase reactant whoseconcentration increases rapidly due to inflammatoryconditions. This serves to increase bound PS antigen andproduces a relative decrease of free PS antigen and PSactivit y. Conditions that can cause an increase in T1f-PMinsqxy include: , oral contraceptive use,diabetes mellitus, systemic lupus erythematosus, AIDS andrenal allograft rejection. PROTEIN S, FUNC 39 % (Abnormal) Range: 60-145 Comments: A deficiency of protein S (PS), either congenital oracquired, increases the risk of thromboembolism. AcquiredPS deficiency is more common than congenital deficiency.Acquired deficiency can occur as the result of decreased PSsynthesis or increased consumption. PS synthesis can bediminished in a number of conditions including oralanticoagulant therapy, vitamin K deficiency, liver disease,chemotherapy an d L-asparaginse therapy. PS consumptioncan occur during disseminated intravascular coagulation(DIC), acute thrombosis, polycythemia vera, sickle celldisease and essential thrombocythemia. Free PS antige n andPS activities are also often diminished in nephroticsyndrome. .A portion of the PS in blood is bound to U3c-gyhdqxjzojknue (C4b-BP). C4b-BP is and acute phase reactant whoseconcentration increases rapidly due to inflammatoryconditions. This serves to increase bound PS antigen andproduces a relative decrease of free PS antigen and PSactivit y. Conditions that can cause an increase in X5d-MYhggane include: , oral contraceptive use,diabetes mellitus, systemic lupus erythematosus, AIDS andrenal allograft rejection. PROTEIN S,TOTAL 73 % (Normal) Range: 58-150 RHEUMATOID FAC < 10 {IU/mL} (Normal) Comments: FAX PT RESULTS 2:55 TSH 2.52 {uIU/mL} Comments: FAX PT RESULTS 2:55 (Normal) Range: 0.358-3.74 VITAMIN B12 622 pg/mL (Normal) Comments: FAX PT RESULTS 2:55 Range: 254-1320 [id number] PRO TIME INR 2.3 (Normal) PROTIME 25.4 s (Abnormal) Range: 9.1-11.7 :00 PRO TIME INR 1.9 (Normal) PROTIME 21.4 s (Abnormal) Range: 9.1-11.7 :30 PRO TIME INR 1.6 (Normal) PROTIME 17.3 s (Abnormal) Range: 9.1-11.7 :00 PRO TIME INR 1.9 (Normal) PROTIME 20.8 s (Abnormal) Range: 9.1-11.7 :00 PTT 33.3 s (Normal) Range: 25.2-36.2 :00 PRO TIME INR 2.3 (Normal) PROTIME 26.1 s (Abnormal) Range: 9.1-11.7 :35 PT/INR, Office ([id number]) INR 1.8 (Normal) :46 PT/INR, Office ([id number]) Comments: done BC INR 2.6 (Normal) :54 PT/INR, Office ([id number]) INR 1.2 (Normal) :00 CBCD,SMEAR DIFF ATYPICAL LYMPH 1+ % (Normal) BAND 4 % (Normal) Range: 0-5 CELLS COUNTED 100 (Normal) EOS 5 % (Normal) Range: 0-5 HCT 42.5 % (Normal) Range: 37-47 HGB 14.5 g/dL (Normal) Range: 12.0-16.0 LYMPH 43 % (Abnormal) Range: 19-41 MCH 30.5 pg (Normal) Range: 27.0-32.0 MCHC 34.0 g/dL (Normal) Range: 32-36 MCV 89.7 fL (Normal) Range: 81-99 MONOCYTE 6 % (Normal) Range: 0-10 PLT 248 K/mm3 (Normal) Range: 150-450 PLT EST SeeNote (Normal) Comments: Result: ADEQUATE RBC 4.74 {M/mm3} (Normal) Range: 4.2-5.4 RDW 13.2 % (Normal) Range: 11.6-14.6 RED CELL MORPH SeeNote {NORMAL} (Normal) Comments: Result: NORM C+C SEGS 42 % (Abnormal) Range: 47-70 WBC 6.2 K/mm3 (Normal) Range: 4.4-11.0 :00 COMP METABOLIC A/G 0.9 {RATIO} (Normal) Range: 0.9-2.4 ALB 3.5 g/dL (Normal) Range: 3.4-5.0 ALK P 94 U/L (Normal) Range: 50-136 ALT 46 U/L (Normal) Range: 30-65 AST 24 U/L (Normal) Range: 15-37 BUN 10 mg/dL (Normal) Range: 7-18 BUN/CRE 12.5 {RATIO} (Normal) Range: 10-20 CA 8.8 mg/dL (Normal) Range: 8.5-10.1 CL 102 mmol/L (Normal) Range: 98-107 CO2 29.0 mmol/L (Normal) Range: 21.0-32.0 CREAT,SERUM 0.8 mg/dL (Normal) Range: 0.6-1.0 EST GFR 84 mL/min (Normal) EST GFR - AA 102 mL/min (Normal) GAP 6 (Normal) Range: 5-15 GLOB 3.8 g/dL (Normal) Range: 2.7-4.2 GLU 100 mg/dL (Normal) Range: 70-110 K 4.1 mmol/L (Normal) Range: 3.5-5.1 NA 137 mmol/L (Normal) Range: 136-145 T BILI 0.70 mg/dL (Normal) Range: 0.00-1.00 T PROT 7.3 g/dL (Normal) Range: 6.4-8.2 [id number] LIPID CHOL 176 mg/dL (Normal) Comments: <200 mg/dL Desirable 200-240 mg/dL Borderline >240 mg/dL High Risk HDL 35 mg/dL (Normal) Comments: Reference Range HDL <40 mg/dL Low HDL Cholesterol HDL >or= 60 mg/dL High HDL Cholesterol LDL 116 mg/dL (Normal) Range: 0-130 TRIG 123 mg/dL (Normal) Comments: Serum Triglycerides Reference Interval Normal <150 mg/dL Borderline high 150 - 199 mg/dL High 200 - 499 mg/dL Very High > or = 500 mg/dL VLDL 25 mg/dL (Normal) Range: 5-40 [id number] TSH 2.00 {uIU/mL} (Normal) Range: 0.358-3.74 [id number] PT/INR, Office ([id number]) Comments: done>Wf. INR 1.6 (Normal) :56 PRO TIME INR 2.2 (Normal) PROTIME 24.4 s (Abnormal) Range: 9.1-11.7 :25 PT/INR, Office ([id number]) INR 2.8 (Normal) :40 PT/INR, Office ([id number]) INR 3.5 (Normal) :42 PT/INR, Office ([id number]) INR 3.5 (Normal) :38 CBCD,SMEAR DIFF BAND 1 % (Normal) Range: 0-5 BASOPHIL 1 % (Normal) Range: 0-1 CELLS COUNTED 100 (Normal) EOS 1 % (Normal) Range: 0-5 HCT 40.4 % (Normal) Range: 37-47 HGB 13.8 g/dL (Normal) Range: 12.0-16.0 LYMPH 44 % (Abnormal) Range: 19-41 MCH 30.6 pg (Normal) Range: 27.0-32.0 MCHC 34.1 g/dL (Normal) Range: 32-36 MCV 89.7 fL (Normal) Range: 81-99 MONOCYTE 7 % (Normal) Range: 0-10 PLT 225 K/mm3 (Normal) Range: 150-450 PLT EST SeeNote (Normal) Comments: Result: ADEQUATE RBC 4.51 {M/mm3} (Normal) Range: 4.2-5.4 RDW 12.4 % (Normal) Range: 11.6-14.6 RED CELL MORPH SeeNote {NORMAL} (Normal) Comments: Result: NORM C&C SEGS 46 % (Abnormal) Range: 47-70 WBC 5.8 K/mm3 (Normal) Range: 4.4-11.0 :38 COMP METABOLIC A/G 0.9 {RATIO} (Normal) Range: 0.9-2.4 ALB 3.3 g/dL (Abnormal) Range: 3.4-5.0 ALK P 101 U/L (Normal) Range: 50-136 ALT 125 [iU]/L (Abnormal) Range: 30-65 AST 49 U/L (Abnormal) Range: 15-37 BUN 13 mg/dL (Normal) Range: 7-18 BUN/CRE 21.7 {RATIO} (Abnormal) Range: 10-20 CA 8.3 mg/dL (Abnormal) Range: 8.5-10.1 CL 105 mmol/L (Normal) Range: 98-107 CO2 28.0 mmol/L (Normal) Range: 22.0-29.0 CREAT,SERUM 0.6 mg/dL (Normal) Range: 0.6-1.0 GAP 6 (Normal) Range: 5-15 GLOB 3.6 g/dL (Abnormal) Range: 2.3-3.5 GLU 95 mg/dL (Normal) Range: 70-110 K 4.0 mmol/L (Normal) Range: 3.5-5.1 NA 139 mmol/L (Normal) Range: 136-145 T BILI 0.67 mg/dL (Normal) Range: 0.00-1.00 T PROT 6.9 g/dL (Normal) Range: 6.4-8.2 :38 LIPID CHOL 139 mg/dL (Normal) Comments: <200 mg/dL Desirable 200-240 mg/dL Borderline >240 mg/dL High Risk HDL 39 mg/dL (Normal) Comments: Reference Range HDL <40 mg/dL Low HDL Cholesterol HDL >or= 60 mg/dL High HDL Cholesterol LDL 87 mg/dL (Normal) Range: 0-130 TRIG 67 mg/dL (Normal) Comments: Serum Triglycerides Reference Interval Normal <150 mg/dL Borderline high 150 - 199 mg/dL High 200 - 499 mg/dL Very High > or = 500 mg/dL VLDL 13 mg/dL (Normal) Range: 5-40 :38 MICROALBUMIN,UR 1.6 mg/L (Normal) :38 TSH 1.58 {uIU/mL} (Normal) Range: 0.34-4.82 :10 TRIAGE, Urine Comments: COMMENTS: FEARONPrecautions*: NOT APPLICABLE AMPHETAMINES SeeNote (Normal) Comments: Result: NEGATIVE BARBITURATES SeeNote (Normal) Comments: Result: NEGATIVE BENZODIAZEPINE SeeNote (Normal) Comments: Result: NEGATIVE COCAINE SeeNote (Normal) Comments: Result: NEGATIVE OPIATES SeeNote (Normal) Comments: Result: NEGATIVE PHENCYCLIDINE SeeNote (Normal) Comments: Result: NEGATIVE THC SeeNote (Normal) Comments: Result: NEGATIVE TO BE CONFIRMED IF POS (Normal) Comments: IF POSITIVE, THE SAMPLE IS PRESUMED TO CONTAIN DRUG AT A LEVEL EQUAL TO OR GREATER THAN THE REFERENCE RANGE. THIS IS A QUALITATIVE IMMUNOASSAY AND THE CONCENTRATION OFDRUGS PRESENT IN THE URINE SPECI MEN CANNNOT BE ESTIMATED.POSITIVE RESULTS ARE SENT TO A REFERENCE LAB FORCONFIRMATION UNLESS OTHERWISE INDICATED. RESULTS ARE TO BE USED FOR MEDICAL PURPOSES ONLY.UNCONFIRMED SCREENING RESULTS ARE NOT TO BE USED FORNON-MEDICAL PURPOSES. TRICY.ANTIDEPR. SeeNote (Normal) Comments: Result: NEGATIVE :05 BMP Comments: COMMENTS: FEARONPrecautions*: NOT APPLICABLE BUN 16 mg/dL (Normal) Range: 7-18 BUN/CRE 20.0 {RATIO} (Normal) Range: 10-20 CA 9.0 mg/dL (Normal) Range: 8.5-10.1 CL 104 mmol/L (Normal) Range: 98-107 CO2 26.5 mmol/L (Normal) Range: 22.0-29.0 CREAT,SERUM 0.8 mg/dL (Normal) Range: 0.6-1.0 GAP 13 (Normal) Range: 5-15 GLU 96 mg/dL (Normal) Range: 70-110 K 3.5 mmol/L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 Request PT (Prothrobim Time) ([id number])Indication: Deep vein thrombosis, unspecified laterality On: 05-Dec-2014 Request PT (Prothrobim Time) ([id number])Indication: Deep vein thrombosis, unspecified laterality On: 05-Nov-2014 Request URINE SHERITA CULTURE (DENISE COL COUNT) ([id number])Indication: Lower urinary tract infection On: 6-Bdf-178050:40 Request SHERITA CULTURE-OTHER ([id number])Indication: Wound drainage (Renamed from Drainage from wound) On: 02-Aea-516532:45 Request URINE SHERITA CULTURE-IDENTIFICATN ([id number])Indication: Urinary frequency On: 8-Bga-770062:07 Request PT (Prothrobim Time) ([id number])Indication: Deep vein thrombosis, unspecified laterality On: 31-Nsl-621677:16 Request Comments: Standing order HELICOBACTER PYLORI ANTIBODY ([id number])Indication: Epigastric pain On: 02-Xir-975960:22 Request URINALYSIS, W/ MICRO ([id number])Indication: Other primary cardiomyopathies On: 09-Tiw-06262:54 Request TSH ([id number])Indication: Other primary cardiomyopathies On: :53 Request METABOLIC PANEL, COMPREHENSIVE ([id number])Indication: Other primary cardiomyopathies On: :53 Request CBC WITH MANUAL DIFF ([id number])Indication: Other primary cardiomyopathies On: 47-Lyp-83304:53 Request LIPID PANEL ([id number])Indication: Other primary cardiomyopathies On: 02-Inl-50222:53 Request PT (Prothrobim Time) ([id number])Indication: EMBOLISM AND THROMBOSIS OF OTHER SPECIFIED VEINS On: 55-Lcr-70255:46 Request Comments: inr PT (Prothrobim Time) ([id number])Indication: Deep vein thrombosis, unspecified laterality On: 2-Lct-590102:35 Request Comments: inr CBC (AUTO) ([id number])Indication: SOB (shortness of breath) on exertion On: 0-Jjj-864650:28 Request Folate ([id number])Indication: Fatigue On: 23-Wtt-215572:59 Request SED RATE ERYTHROCYTE ([id number])Indication: Fatigue On: 41-Tyl-474574:59 Request VITAMIN B-12 (CYANOCOBALAMIN) ([id number])Indication: Fatigue On: 20-Ftz-380954:59 Request REYNALDO (ANTINUCLEAR ANTIBODY) ([id number])Indication: Fatigue On: 48-Xda-181622:59 Request C-REACTIVE PROTEIN ([id number])Indication: Fatigue On: 27-Hdy-849471:59 Request METABOLIC PANEL, COMPREHENSIVE ([id number])Indication: Fatigue On: 06-Rgb-981270:59 Request RHEUMATOID FACTOR-QUANT ([id number])Indication: Fatigue On: 47-Uqf-132201:59 Request URINALYSIS, W/ MICRO ([id number])Indication: Other primary cardiomyopathies On: 34-Lkp-355513:58 Request MICROALBUMIN: CREATININE RATIO ([id number]) AND ([id number])Indication: Other primary cardiomyopathies On: 66-Fdk-687094:58 Request METABOLIC PANEL, COMPREHENSIVE ([id number])Indication: Other primary cardiomyopathies On: 60-Eso-117715:58 Request LIPID PANEL ([id number])Indication: Other primary cardiomyopathies On: 51-Zrf-798842:58 Request CBC WITH MANUAL DIFF ([id number])Indication: Other primary cardiomyopathies On: 34-Cup-201239:58 Request TSH ([id number])Indication: Amenorrhea On: 84-Nsf-710382:57 Request PT (Prothrobim Time) ([id number])Indication: Deep vein thrombosis, unspecified laterality On: 00-Tmw-376124:54 Request Comments: pt/inr - talked to dr shriner -- she will need lovenox inj prior to surgery when need to stop coumadin and restart after surgery PT/INR, Office ([id number])Indication: Deep vein thrombosis, unspecified laterality On: 12-Whp-207926:12 Request PT/INR, Office ([id number])Indication: Deep vein thrombosis, unspecified laterality On: 8-Vfk-768625:26 Request TSH ([id number])Indication: Other primary cardiomyopathies On: :06 Request METABOLIC PANEL, COMPREHENSIVE ([id number])Indication: Other primary cardiomyopathies On: :06 Request LIPID PANEL ([id number])Indication: Other primary cardiomyopathies On: :06 Request CBC WITH MANUAL DIFF ([id number])Indication: Other primary cardiomyopathies On: :06 Request PT/INR, Office ([id number])Indication: EMBOLISM AND THROMBOSIS OF OTHER SPECIFIED VEINS On: :21 Request Comments: inr 2.8 PT/INR, Office ([id number])Indication: Deep vein thrombosis, unspecified laterality On: 27-Sep-20089:19 Request TSH ([id number])Indication: Other primary cardiomyopathies On: :21 Request MICROALBUMIN URINE QUANT ([id number])Indication: Other primary cardiomyopathies On: :21 Request LIPID PANEL ([id number])Indication: Other primary cardiomyopathies On: :21 Request METABOLIC PANEL, COMPREHENSIVE ([id number])Indication: Other primary cardiomyopathies On: : Request CBC WITH MANUAL DIFF ([id number])Indication: Other primary cardiomyopathies On: :21 Request Planned Procedures Aerosol Treatment ([id number])By: On: 23-May-2018 Intent Mavis Baldwin Comments: Lungs clear after aerosol treatment. X-RAY CERVICAL SPINE, 1 VIEW On: 15-Feb-2018 Intent ([id number])By: Paty Catalan DO, DO, Kathleen CT SCAN OF ABDOMEN AND PELVIS On: 17-Dec-2017 Intent WITH CONTRAST ([id number])By: Paty Catalan DO, DO, Kathleen EMGBy: Paty Catalan DO On: 15-Dec-2017 Intent Paty LOCK Comments: bilateral lower extremity EMGBy: Paty Catalan DO On: 15-Dec-2017 Intent Paty LOCK Comments: bilateral upper extremity Nerve ConductionBy: Aalyna DO, On: 15-Dec-2017 Intent Paty Morrow DO Comments: bilateral lower extremity Nerve ConductionBy: Alayna LOCK, On: 15-Dec-2017 Intent Paty Morrow DO Comments: bilateral upper extremity Ultrasound - Abdomen CompleteBy: On: 10-Dec-2017 Intent Juan Jose CLAROS Bess Toradol Injection, 30 mg On: 10-Dec-2017 Intent ([id number])By: Juan Jose CLAROS Zuleima Kaye ELECTROCARDIOGRAM, COMPLETE (ECG) On: 08-Dec-2017 Intent ([id number])By: Yara Chang Comments: nsr no acute chg / poor R wave progression adn nonspecific st flattening EMGBy: Paty Catalan DO On: 06-Sep-2017 Intent Paty LOCK Comments: upper and lower extremity Nerve ConductionBy: Alayna LOCK, On: 06-Sep-2017 Intent Paty Morrow DO Comments: upper and lower extremi X-RAY OF HAND, TWO VIEWS On: 06-Sep-2017 Intent ([id number])By: Paty Catalan DO Comments: Left Alayna DO, Paty X-RAY OF HAND, TWO VIEWS On: 06-Sep-2017 Intent ([id number])By: Paty Catalan DO Comments: Right Paty Catalan DO SCREENING DIGITAL TOMOSYNTHESIS On: 06-Sep-2017 Intent OF BREAST ([id number])By: Alayna DOLuis AlfredoPaty Alayna DO, Paty X-RAY OF ANKLE, TWO VIEWS On: 27-Jul-2017 Intent ([id number])By: Alayna DO, Paty Alayna DO, Paty X-RAY OF ANKLE, TWO VIEWS On: 27-Jul-2017 Intent ([id number])By: Alayna DODeannPaty Alayna DO, Paty X-RAY OF FOOT, TWO VIEWS On: 27-Jul-2017 Intent ([id number])By: Paty Catalan DO Comments: left Alayna DO, Paty X-RAY OF FOOT, TWO VIEWS On: 27-Jul-2017 Intent ([id number])By: Paty Catalan DO Comments: left Paty Catalan DO FLAT PLATE OF ABDOMEN ([id number])By: On: 12-Jul-2017 Intent Juan Jose CLAROS Bess Ultrasound - LiverBy: Alayna LOCK, On: 16-Jun-2017 Intent Paty Morrow DO Rocephin Injection, 2 Gram On: 02-Jun-2017 Intent ([id number])By: Paty Catalan DO, DO, Kathleen Aerosol Treatment ([id number])By: On: 02-Jun-2017 Intent Paty Catalan DO, DO, Comments: srill inspir and exp wheeze and junky but less cough nad moer a./e Paty Radiology - Chest- PA and LatBy: On: 02-Jun-2017 Intent Paty Catalan DO, DO, Kathleen CT SCAN OF CHEST WITH CONTRAST On: 02-Jun-2017 Intent ([id number])By: Paty Catalan DO Comments: fu on PE Paty Catalan DO Doppler Ultrasound OtherBy: On: 02-Jun-2017 Intent Paty Catalan DO, DO, Comments: b/l lower extremities-- fu on dvt Paty Aerosol Treatment ([id number])By: On: 25-May-2017 Intent Juan Jose CLAROS Bess Spirometry ([id number])By: Alayna LOCK, On: 19-Mar-2017 Intent Paty Morrow DO Comments: restriction noted Solu- Medrol Injection, 125mg On: 19-Mar-2017 Intent ([id number])By: Paty Catalan DO Comments: Lot:[id number]:06/2019Dose:125mgRoute:imSite:l armGiven By:NICHOLAS signed Paty Catalan DO Aerosol Treatment ([id number])By: On: 19-Mar-2017 Intent Paty Catalan DO, DO, Comments: more a/e no noise Paty Flu Vaccine (Quadrivalent) On: 15-Mar-2017 Intent 08131Xq: Paty Catalan DO Comments: Lot:[id number]:12/13/17Amt:0.5mlRoute:IMSite: L DltdGiven By: CHAITANYA Reis signed Paty Catalan DO COMPUTED TOMOGRAPHY ANGIOGRAPHY On: 09-Mar-2017 Intent OF CHEST FOR PULMONARY EMBOLISM ([id number])By: Mavis Baldwin VENOUS DOPPLER LOWER EXTREMITY On: 09-Mar-2017 Intent ([id number])By: Mavis Baldwin Comments: R/O DVT Aerosol Treatment ([id number])By: On: 30-Nov-2016 Intent Paty Catalan DO, DO, Comments: more a/e - less wheeze --- Paty Spirometry ([id number])By: Alayna LOCK, On: 30-Nov-2016 Intent Paty Morrow DO Comments: moderate restriction & obstruction Aerosol Treatment ([id number])By: On: 01-Jun-2016 Intent Slasandhya WELCH, Yanet CT - Chest (IV Contrast On: 08-Apr-2016 Intent Needed)By: Robel Sanon MD CT - Chest (IV Contrast On: 08-Apr-2016 Intent Needed)By: Robel Sanon MD Comments: Has Ct scan scehduled without contrast on 04/13/16. PLEASE DO CT SCAN WITH IV CONTRAST CHEST XRAY, PA & LATERAL On: 08-Apr-2016 Intent ([id number])By: Robel Sanon MD CT - Chest (Without Contrast)By: On: 02-Apr-2016 Intent Robel Sanon MD Comments: high resolution Flu Vaccine (Quadrivalent) On: 19-Mar-2016 Intent 49087He: Paty Catalan DO Comments: FLUlot: [id number]:11/11site:Lt deltoidroute:IMdose:.5mlDEYAHIR GIBBONS DO, Kathleen Echo CompleteBy: Robel Sanon MD On: 12-Mar-2016 Intent Comments: pls fax to Dr. palomo elena [facility] PFT - CompleteBy: Robel Sanon MD On: 12-Mar-2016 Intent Radiology - Foot - RightBy: Fab On: 12-Mar-2016 Intent Robel LEON Comments: pain in rt toe after fall. Aerosol Treatment ([id number])By: On: 11-Feb-2016 Intent Slarb CHICLE GRINDER FEEDER, Yanet Aerosol Treatment ([id number])By: On: 19-Aug-2015 Intent Slarb CHICLE GRINDER FEEDER, Yanet Aerosol Treatment ([id number])By: On: 16-Oct-2014 Intent Coty Scott MD Venous Doppler - RightBy: Ciesa On: 25-Sep-2014 Intent Zuleima CLAROS IMMUNIZ ADMNIN, 1 VAC, SNGL/COMBO On: 23-Apr-2014 Intent ([id number])By: Yanet Lee LPN Comments: [id number] syringeL Dltd, IMAS, LPNABN and VIS signed FLU VAC, SPLIT, >3 YEARS, On: 23-Apr-2014 Intent INTRAMUSC ([id number])By: Yanet Lee LPN Opibulryy-Gxb-Regp ([id number])By: On: 11-Sep-2013 Intent Alayna LOCK, Paty Catalan DO, Paty Aerosol Treatment ([id number])By: On: 24-Aug-2013 Intent Coty Scott MD Eprescribed prescriptions On: 24-Aug-2013 Intent ([id number])By: Coty Scott MD IMMUNIZ ADMNIN, 1 VAC, SNGL/COMBO On: 15-Mar-2013 Intent ([id number])By: Apolonia Alvarez Comments: Lot:[id number]:01/14/14Dose:0.5mLRoute:imSite:r armGiven By:NICHOLAS signed PNEUM VAC ADLT/IMUMNOSPR, On: 15-Mar-2013 Intent SBC/INTRM ([id number])By: Apolonia Alvarez FLU VAC, SPLIT, >3 YEARS, On: 15-Mar-2013 Intent INTRAMUSC ([id number])By: Antonio, Comments: Lot:[id number]:Dose:0.5mLRoute:IMSite:L DltdGiven By:NICHOLAS signed Apolonia IMMUNIZ ADMNIN, 1 VAC, SNGL/COMBO On: 15-Mar-2013 Intent ([id number])By: Apolonia Alvarez Ultrasound - AortaBy: Alayna LOCK, On: 24-Oct-2012 Intent Paty Catalan DO, Paty MRI - Brain (IV Contrast On: 04-Oct-2012 Intent Needed)By: Alayna LOCK, Paty Catalan DO Paty Anoscopy ([id number])By: Alayna DO, On: 28-Sep-2012 Intent Luis Alfredo Morrow DOeen Comments: iritated mucosa filled wiht stool which limited view and blood in vault CT - Abdomen & Pelvis with iv On: 28-Sep-2012 Intent contrastBy: Alayna DO, Paty Catalan DO, Paty Ultrasound - PelvisBy: Alayna DO, On: 28-Sep-2012 Intent Paty Catalan DO, Paty Nerve ConductionBy: Juan Jose CLAROS, On: 07-Jun-2012 Intent Zuleima Kaye Comments: both arms IMMUNIZ ADMNIN, 1 VAC, SNGL/COMBO On: 25-Apr-2012 Intent ([id number])By: Radha Whitaker LPN Comments: Lot #[id number]-L dltd, IMDose prefilled syringegiven by:REBEKAH CarlsonVIS signed FLU VAC, SPLIT, >3 YEARS, On: 25-Apr-2012 Intent INTRAMUSC ([id number])By: Radha Whitaker LPN Rocephin Injection, 2 Gram On: 18-Jan-2012 Intent ([id number])By: Coty Scott MD Comments: Lot #: [id number] date: 01/07Amount given: 2gRoute: IVSite given: right antecubitalGiven by: Raquel RN22g IV inserted to right antecubital without difficulty. No s/sx of infiltration. Tolerated well without difficulty. THER/PROPH/DIAG IV INF, INIT On: 18-Jan-2012 Intent ([id number])By: Coty Scott MD Ultrasound - GallbladderBy: On: 21-Sep-2011 Intent Alayna LOCK, Paty Catalan DO, Paty Venous Doppler - LeftBy: Tyler On: 04-Sep-2011 Intent Coty LEON Comments: leg, wet read FLU VAC, SPLIT, >3 YEARS, On: 01-Apr-2011 Intent INTRAMUSC ([id number])By: Master WELCH, Comments: Lot #[id number]-4/20/12Site-right deltoidgiven by: Jessica Thao LPN Dunia IMMUNIZ ADMNIN, 1 VAC, SNGL/COMBO On: 01-Apr-2011 Intent ([id number])By: Dunia Thao LPN Pulse Oximetry ([id number])By: Sandeep On: 05-Sep-2010 Intent Sammie WELCH Comments: sp02- 90% on room air Aerosol Treatment ([id number])By: On: 05-Sep-2010 Intent Sammie Hopkins LPN Pulse Oximetry ([id number])By: Juan Jose On: 01-Sep-2010 Intent HARLANZuleima Aerosol Treatment ([id number])By: On: 01-Sep-2010 Intent Juan Jose Zuleima CLAROS IMMUNIZ ADMNIN, 1 VAC, SNGL/COMBO On: 10-Apr-2010 Intent ([id number])By: Paty Catalan DO Comments: Lot #[id number] 4PExp-4/11Site-L arm IMDose 0.5mlgiven by:REBEKAH PEDRO DO, Kathleen FLU VAC, SPLIT, >3 YEARS, On: 10-Apr-2010 Intent INTRAMUSC ([id number])By: Paty Catalan DO, DO, Kathleen PHYSICAL THERAPY EVALUATION On: 24-Mar-2010 Intent ([id number])By: Juan Jose CLAROS Bess Radiology - Left KneeBy: Juan Jose On: 24-Mar-2010 Intent Zuleima CLAROS Aerosol Treatment ([id number])By: On: 17-Mar-2010 Intent Juan Jose CLAROS Zuleima Kaye Pulse Oximetry ([id number])By: Juan Jose On: 17-Mar-2010 Intent Zuleima CLAROS Aerosol Treatment ([id number])By: Cachorro On: 01-Nov-2009 Brigid Francois DO Pulse Oximetry ([id number])By: Cachorro On: 01-Nov-2009 Brigid Francois DO Comments: 87- after treatment Solu -Medrol Injection, 125 mg On: 01-Nov-2009 Intent ([id number])By: Laurie Reyna Comments: Lot:[id number]:125mgRoute:IMSite:Left Gluteus Given by: YAHIR Salgado Pulse Oximetry ([id number])By: On: 01-Nov-2009 Intent Flinner, Olivia Comments: 89% Radiology - Chest- PA and LatBy: On: 31-Oct-2009 Intent Paty Catalan DO DO, Paty Pulse Oximetry ([id number])By: Alayna On: 31-Oct-2009 Intent Paty LOCK DOPaty Comments: 90% Aerosol Treatment ([id number])By: On: 31-Oct-2009 Intent Paty Catalan DO, DO, Kathleen Solu- Medrol Injection, 125mg On: 31-Oct-2009 Intent ([id number])By: Paty Catalan DO Comments: Lot #[id number]-3/1/2012Site-left hipDose- 125 mggiven by:Paty Pelayo DO CT - Chest with PE ProtocolBy: On: 29-Aug-2009 Intent Paty Catalan DO DOPaty Echo CompleteBy: Alayna LOCK, On: 29-Aug-2009 Intent Paty Catalan DO Paty EKG ([id number])By: Alayna LOCK, On: 29-Aug-2009 Intent Paty Catalan DO, Paty Bio Z ([id number])By: Alayna LOCK, On: 29-Aug-2009 Intent Paty Morrow DO Spirometry ([id number])By: Alayna LOCK, On: 29-Aug-2009 Intent Paty Catalan DOPaty Pulse Oximetry ([id number])By: Alayna On: 29-Aug-2009 Intent Paty LOCK DOPaty Inhaler Demo ([id number])By: Cachorro LOCK, On: 06-Aug-2009 Intent Brigid Molina Radiology - Chest- PA and LatBy: On: 06-Aug-2009 Intent Cachorro LOCK Brigid A Spirometry ([id number])By: Cachorro LOCK, On: 06-Aug-2009 Intent Brigid A Comments: done km- good effort and curve mildd restriction Aerosol Treatment ([id number])By: Cachorro On: 06-Aug-2009 Intent DO Brigid A Comments: done km Pulse Oximetry (52663)By: Cachorro On: 06-Aug-2009 Intent DO Brigid A Comments: post aerosol 95% Pulse Oximetry ([id number])By: On: 06-Aug-2009 Intent Olivia Batista Comments: 94% Bio Z ([id number])By: Alayna LOCK, On: 15-May-2009 Intent Paty Morrow DO Comments: see scanned doc -- no changes n meds stable Doppler Ultrasound OtherBy: On: 27-Sep-2008 Intent Paty Catalan DO, DO, Comments: do in 3 months Paty Bio Z ([id number])By: Alayna LOCK, On: 13-Sep-2008 Intent Paty Morrow DO Comments: normal EKG (48149)By: Alayna LOCK, On: 13-Sep-2008 Intent Paty Morrow DO Comments: nsr no acute changes IMMUNIZ ADMNIN, 1 VAC, SNGL/COMBO On: 09-May-2008 Intent ([id number])By: Paty Catalan DO, DO, Kathleen FLU VAC, SPLIT, >3 YEARS, On: 09-May-2008 Intent INTRAMUSC ([id number])By: Alayna LOCK, Comments: injection given in left deltoid. pt tolerated. see scanned paper Paty Morrow DO Pulse Oximetry ([id number])By: Cheyanne On: 28-Feb-2008 Intent Shelby HUDSON IMMUNIZ ADMNIN, 1 VAC, SNGL/COMBO On: 13-Apr-2007 Intent ([id number])By: Paty Catalan DO, DO, Kathleen FLU VAC, SPLIT, >3 YEARS, On: 13-Apr-2007 Intent INTRAMUSC ([id number])By: Alayna LOCK, Comments: lot # [id number] exp- 10/03 LDLT patient tolerated well Paty Morrow DO EKG ([id number])By: Alayna LOCK, On: 03-Dec-2006 Intent Paty Morrow DO Comments: nsr no acute ischemic changes Bio Z ([id number])By: Alayna LOCK, On: 03-Dec-2006 Intent Paty Morrow DO Comments: normal svr and co Planned Medications INJECTION, CEFTRIAXONE SODIUM, PER 250 MG Ordered: 18-Jan-2012 Pending Coty Scott MD INJECTION, CEFTRIAXONE SODIUM, PER 250 MG Ordered: 02-Jun-2017 Pending Paty Catalan DO, DO, Kathleen INJECTION, KETOROLAC TROMETHAMINE, PER 15 MG Ordered: 10-Dec-2017 Pending Juan Jose CLAROS Bess INJECTION, METHYLPREDNISOLONE SODIUM SUCCINATE, UP TO 125 MG Ordered: 19-Mar-2017 Pending Paty Catalan DO, DO, Kathleen Instructions Name Dates Details Nonsmoker : How to access health information online Indication: Nonsmoker Nonsmoker : How to access health information online - Detail Indication: Nonsmoker Cough : Patient Instructions Indication: Cough Nonsmoker : How to access health information online Indication: Nonsmoker Nonsmoker : How to access health information online - Detail Indication: Nonsmoker Nonsmoker : Patient Instructions Indication: Nonsmoker Nonsmoker : How to access health information online Indication: Nonsmoker Nonsmoker : How to access health information online - Detail Indication: Nonsmoker Nonsmoker : Patient Instructions Indication: Nonsmoker BMI 39.0-39.9,adult : How to access health information online Indication: BMI 39.0-39.9,adult BMI 39.0-39.9,adult : How to access health information online - Detail Indication: BMI 39.0-39.9,adult BMI 39.0-39.9,adult : Patient Instructions Indication: BMI 39.0-39.9,adult Low back pain : How to access health information online Indication: Low back pain Low back pain : How to access health information online - Detail Indication: Low back pain Low back pain : Patient Instructions Indication: Low back pain Type II diabetes mellitus, well controlled : How to access health information online Indication: Type II diabetes mellitus, well controlled Type II diabetes mellitus, well controlled : How to access health information online - Detail Indication: Type II diabetes mellitus, well controlled Type II diabetes mellitus, well controlled : Patient Instructions Indication: Type II diabetes mellitus, well controlled BMI 40.0-44.9, adult : How to access health information online Indication: BMI 40.0-44.9, adult BMI 40.0-44.9, adult : How to access health information online - Detail Indication: BMI 40.0-44.9, adult BMI 40.0-44.9, adult : Patient Instructions Indication: BMI 40.0-44.9, adult Sinus congestion : How to access health information online Indication: Sinus congestion Sinus congestion : How to access health information online - Detail Indication: Sinus congestion Sinus congestion : Patient Instructions Indication: Sinus congestion Encounter for screening mammogram for breast cancer (Renamed from Encounter for screening mammogram for malignant neoplasm of breast) : How to access health information online Indication: Encounter for screening mammogram for breast cancer (Renamed from Encounter for screening mammogram for malignant neoplasm of breast) Encounter for screening mammogram for breast cancer (Renamed from Encounter for screening mammogram for malignant neoplasm of breast) : How to access health information online - Detail Indication: Encounter for screening mammogram for breast cancer (Renamed from Encounter for screening mammogram for malignant neoplasm of breast) Encounter for screening mammogram for breast cancer (Renamed from Encounter for screening mammogram for malignant neoplasm of breast) : Patient Instructions Indication: Encounter for screening mammogram for breast cancer (Renamed from Encounter for screening mammogram for malignant neoplasm of breast) Nonsmoker : How to access health information online Indication: Nonsmoker Nonsmoker : How to access health information online - Detail Indication: Nonsmoker Nonsmoker : Patient Instructions Indication: Nonsmoker Nonsmoker : How to access health information online Indication: Nonsmoker Nonsmoker : How to access health information online - Detail Indication: Nonsmoker Nonsmoker : Patient Instructions Indication: Nonsmoker UTI (urinary tract infection) : How to access health information online Indication: UTI (urinary tract infection) UTI (urinary tract infection) : How to access health information online - Detail Indication: UTI (urinary tract infection) UTI (urinary tract infection) : Patient Instructions Indication: UTI (urinary tract infection) Nonsmoker : How to access health information online Indication: Nonsmoker Nonsmoker : How to access health information online - Detail Indication: Nonsmoker Nonsmoker : Patient Instructions Indication: Nonsmoker BMI 40.0-44.9, adult : How to access health information online Indication: BMI 40.0-44.9, adult BMI 40.0-44.9, adult : How to access health information online - Detail Indication: BMI 40.0-44.9, adult BMI 40.0-44.9, adult : Patient Instructions Indication: BMI 40.0-44.9, adult Type II diabetes mellitus, well controlled : How to access health information online Indication: Type II diabetes mellitus, well controlled Type II diabetes mellitus, well controlled : How to access health information online - Detail Indication: Type II diabetes mellitus, well controlled Type II diabetes mellitus, well controlled : Patient Instructions Indication: Type II diabetes mellitus, well controlled Uncontrolled type 2 diabetes mellitus : How to access health information online Indication: Uncontrolled type 2 diabetes mellitus Uncontrolled type 2 diabetes mellitus : How to access health information online - Detail Indication: Uncontrolled type 2 diabetes mellitus Uncontrolled type 2 diabetes mellitus : Patient Instructions Indication: Uncontrolled type 2 diabetes mellitus Bronchitis : How to access health information online Indication: Bronchitis Bronchitis : How to access health information online - Detail Indication: Bronchitis Bronchitis : Patient Instructions Indication: Bronchitis Uncontrolled type 2 diabetes mellitus : Patient Instructions Indication: Uncontrolled type 2 diabetes mellitus Nonsmoker : How to access health information online Indication: Nonsmoker Nonsmoker : How to access health information online - Detail Indication: Nonsmoker Nonsmoker : Patient Instructions Indication: Nonsmoker Polyuria : How to access health information online Indication: Polyuria Polyuria : Patient Instructions Indication: Polyuria BMI 45.0-49.9, adult : How to access health information online Indication: BMI 45.0-49.9, adult BMI 45.0-49.9, adult : How to access health information online - Detail Indication: BMI 45.0-49.9, adult BMI 45.0-49.9, adult : Patient Instructions Indication: BMI 45.0-49.9, adult Nonsmoker : How to access health information online Indication: Nonsmoker Nonsmoker : How to access health information online - Detail Indication: Nonsmoker Nonsmoker : Patient Instructions Indication: Nonsmoker Nonsmoker : How to access health information online Indication: Nonsmoker Nonsmoker : How to access health information online - Detail Indication: Nonsmoker Nonsmoker : Patient Instructions Indication: Nonsmoker Nonsmoker : How to access health information online Indication: Nonsmoker Nonsmoker : How to access health information online - Detail Indication: Nonsmoker Nonsmoker : Patient Instructions Indication: Nonsmoker BMI 50.0-59.9, adult : How to access health information online Indication: BMI 50.0-59.9, adult BMI 50.0-59.9, adult : How to access health information online - Detail Indication: BMI 50.0-59.9, adult BMI 50.0-59.9, adult : Patient Instructions Indication: BMI 50.0-59.9, adult Nonsmoker : How to access health information online Indication: Nonsmoker Nonsmoker : How to access health information online - Detail Indication: Nonsmoker Nonsmoker : Patient Instructions Indication: Nonsmoker External otitis of both ears due to fungus : How to access health information online Indication: External otitis of both ears due to fungus External otitis of both ears due to fungus : How to access health information online - Detail Indication: External otitis of both ears due to fungus External otitis of both ears due to fungus : Patient Instructions Indication: External otitis of both ears due to fungus Nonsmoker : How to access health information online Indication: Nonsmoker Nonsmoker : How to access health information online - Detail Indication: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 compliant with dosing regimen.Encounter Diagnosis: End: 31-Jul-2016 10:50 BMI 50.0-59.9, adult, Nonsmoker, Intermittent palpitations, EMBOLISM AND THROMBOSIS OF OTHER SPECIFIED VEINS (453.8), Chronic anticoagulation, Norovirus, Dehydration [facility] Phone Encounter On: 30-Jul-2016 11:18 [facility] End: 30-Jul-2016 11:21 Phone Encounter On: 27-Jul-2016 15:19 Encounter Diagnosis: EMBOLISM AND THROMBOSIS OF OTHER SPECIFIED VEINS (453.8) End: 27-Jul-2016 15:31 [facility] Annotation/Addendum On: 25-Jun-2016 16:31 Encounter Diagnosis: Osteoarthritis End: 25-Jun-2016 16:32 [facility] Office Visit On: 01-Jun-2016 11:20 Encounter Reason: Cough - The cough is characterized as productive of mucoid sputum. The cough occurs all the time. The symptoms have been associated with runny nose and wheezing. the color of the sputum is greenish and yellowish. End: 01-Jun-2016 12:05 Encounter Diagnosis: Nonsmoker, BMI 50.0-59.9, adult, Cough, Bronchitis [facility] Office Visit On: 08-Apr-2016 12:15 Encounter Reason: Follow up tests - Date: (PFT - we called and had her do a ct chest but dont see that back yet -- scheduled for next week).Encounter Diagnosis: Abnormal pulmonary function test, Pulmonary edema, Diastolic dysfunction, End: 08-Apr-2016 22:34 Obstructive sleep apnea, adult, Other specified abnormal findings of blood chemistry, SOB (shortness of breath) on exertion [facility] Phone Encounter On: 02-Apr-2016 15:33 Encounter Diagnosis: Abnormal pulmonary function test End: 02-Apr-2016 15:38 [facility] Office Visit On: 19-Mar-2016 8:55 Encounter Reason: Physical female exam - Last seen less than 1 month ago. General health: feels well with minor complaints, has decreased energy level and is sleeping poorly. The patient's appetite is normal. Sleeps on a End: 19-Mar-2016 10:09 verage 5 hours per night. Elimination problems include diarrhea. Safety measures include appropriate use of safety belts and home smoke detectors. Current emotional problems include anxiety and depressi on. screening, mammography (due) and screening, Pap smear (?).Encounter Diagnosis: Physical exam, BMI 50.0-59.9, adult, Nonsmoker, Need for prophylactic vaccination and inoculation against influenza [facility] Office Visit On: 12-Mar-2016 7:50 Encounter Reason: Diarrhea - The diarrhea has been occurring in an intermittent pattern for 4 months., [ADDITIONAL REASON] Foot Problem - The injury involved the right foot. , [ADDITIONAL REASON] Shortness of Breath - Onset was 4 month(s) ago. End: 12-Mar-2016 17:32 Encounter Diagnosis: Right foot injury, Bloating, Diarrhea, Cardiac arrhythmia, unspecified, Deep vein thrombosis, unspecified laterality, SOB (shortness of breath) on exertion, Weight gain, History of orthopnea, Elevated serum globulin level [facility] Office Visit On: 11-Feb-2016 14:57 Encounter Reason: Upper Respiratory Infection (URI) - Symptoms include productive cough and wheezing. The patient describes this as worsening. Presenting symptoms included productive cough and wheezing. Note for Upper r End: 11-Feb-2016 15:19 espiratory infection: URI x >5 days Worsening in chest Encounter Diagnosis: Wheeze, Bronchitis [facility] Office Visit On: 19-Aug-2015 11:25 Encounter Reason: Cough - The last clinic visit was 1 week(s) ago. No changes in management were made at the last visit. Symptoms include cough, dyspnea, wheezing and runny nose. The cough is described as productive (uns End: 19-Aug-2015 12:03 ure what color). Cough onset was gradual 1 week(s) ago. Onset of cough followed cold symptoms. The cough occurs constantly. The episodes last for 7 days. Symptoms are described as moderate in severity a nd worsening. Symptoms are not exacerbated by smoke exposure, pollen exposure, animal exposure, going outside, activity, lying down, cold temperature or inhaled bronchodilator use. Associated symptoms i nclude postnasal drainage. The patient is not currently being treated for this problem. By report there is good compliance with treatment. Previous presentation included a cough, a runny nose and dyspne a. Note for Cough: mucous is getting worse, and gagging on itEncounter Diagnosis: Cough, Sinus congestion, Wheeze [facility] Phone Encounter On: 15-Feb-2015 10:57 Encounter Diagnosis: Unspecified Diagnosis End: 15-Feb-2015 11:01 [facility] Office Visit On: 15-Feb-2015 10:14 Encounter Reason: Follow up Meds - The patient feels well with minor complaints, has good energy level and is sleeping well. Patient has been compliant with instructions. Current medication use: no side effects and compl End: 15-Feb-2015 10:49 iant with dosing regimen. Patient sleeps 7 hours per night.Encounter Diagnosis: Sleep disturbance, Sleep apnea [facility] Office Visit On: 06-Feb-2015 8:36 Encounter Reason: Sleep Disturbance - The onset of the sleep disturbance has been gradual and has been occurring in a persistent pattern for years. The course has been constant. The sleep disturbance is described as vinicio End: 06-Feb-2015 9:03 re. 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 The symptoms have been associated with caffiene use daily, caffeine use daily and tried OTC meds.Encounter Diagnosis: Sleep apnea, Sleep disturbance [facility] Phone Encounter On: 24-Dec-2014 8:36 Encounter Diagnosis: Unspecified Diagnosis End: 24-Dec-2014 8:38 [facility] Office Visit On: 23-Nov-2014 10:54 Encounter Reason: Follow up hospital - Reason for ER visit: note: (At [facility] not sure of the dates).Encounter Diagnosis: Bipolar disorder, unspecified (296.80), SCHIZOPHRENIFORM DISORDER, CHRONIC STATE (295.42), End: 23-Nov-2014 11:43 OTHER SPECIFIED DISEASES OF BLOOD AND BLOOD-FORMING ORGANS; PRIMARY HYPERCOAGULABLE STATE (289.81), Dvt femoral (deep venous thrombosis), ASTHMA, UNSPECIFIED, WITH ACUTE EXACERBATION (493.92), Depression with suicidal ideation [facility] Office Visit On: 16-Oct-2014 11:29 Encounter Reason: Cough - The onset of the cough has been 3 days ago. Note for Cough : pt has had cough with miniaml green sputum taking mucinex started 3-4 days ago. feverish at times. little sore throat. just got ou End: 16-Oct-2014 12:08 t of hospital after fall. she had DVT and had filter in. on xarelto for blood clot. given proventil in hospital had CXR.Encounter Diagnosis: ASTHMA, UNSPECIFIED, WITH ACUTE EXACERBATION (493.92), Dvt femoral (deep venous thrombosis), Fracture of lumbar vertebra, sequela, Fall, accidental [facility] Phone Encounter On: 25-Sep-2014 14:16 Encounter Diagnosis: Unspecified Diagnosis End: 25-Sep-2014 14:21 [facility] Office Visit On: 25-Sep-2014 11:59 Encounter Reason: Leg Pain - This condition occurred without any known injury. The patient sustained an injury to the left lower leg. This occurred 2 day(s) ago. Symptoms include leg pain and swelling.Encounter Diagnosis: End: 25-Sep-2014 12:19 leg pain 729.5 (Renamed from Foot pain (729.5)), History of blood clots [facility] Phone Encounter On: 24-Aug-2014 12:16 [facility] End: 24-Aug-2014 12:18 Phone Encounter On: 10-Aug-2014 10:56 [facility] End: 10-Aug-2014 11:00 Phone Encounter On: 06-Aug-2014 13:45 [facility] End: 06-Aug-2014 13:47 Phone Encounter On: 09-May-2014 9:10 Encounter Diagnosis: DVT (453.42) End: 09-May-2014 9:12 [facility] Phone Encounter On: 24-Apr-2014 15:40 [facility] End: 24-Apr-2014 15:41 Office Visit On: 23-Apr-2014 14:02 Encounter Reason: Injections - The medication the patient is here to receive is other (flu shot).Encounter Diagnosis: Need for prophylactic vaccination and inoculation against influenza (V04.81) End: 23-Apr-2014 16:29 [facility] Phone Encounter On: 10-Apr-2014 14:07 [facility] End: 10-Apr-2014 14:08 Phone Encounter On: 09-Apr-2014 14:07 Encounter Diagnosis: DVT (453.42) End: 09-Apr-2014 14:08 [facility] Phone Encounter On: 06-Apr-2014 15:58 [facility] End: 06-Apr-2014 16:00 Office Visit On: 23-Mar-2014 14:02 Encounter Reason: Pre-Op Visit - The procedure scheduled is a lt foot sx on 03/30/14. The surgeon for the procedure will be DR. Pelletier.Encounter Diagnosis: Pre- operative examination, unspecified (V72.84), Hyperglycemia (790.29), Cardiomyopathy(425.4) End: 23-Mar-2014 16:46 , OTHER SPECIFIED DISEASES OF BLOOD AND BLOOD-FORMING ORGANS; PRIMARY HYPERCOAGULABLE STATE (289.81), Cardiac dysrhythmia, unspecified (427.9) [facility] Office Visit On: 13-Mar-2014 15:46 Encounter Reason: Bronchitis - The onset of the bronchitis has been gradual and has been occurring for 1 week. The course has been worsening. The bronchitis are relieved by OTC cold medications. Associated features incl End: 13-Mar-2014 16:27 ude chest tightness, coughing up purulent sputum and fever. Note for Bronchitis : started in sinuses and down into chest. bringing up yyellowEncounter Diagnosis: BRONCHITIS, NOT SPECIFIED ACUTE OR CHRONIC (490.) [facility] Phone Encounter On: 08-Feb-2014 10:30 [facility] End: 08-Feb-2014 10:32 Phone Encounter On: 12-Jan-2014 14:15 [facility] End: 12-Jan-2014 14:16 Phone Encounter On: 12-Dec-2013 13:23 [facility] End: 12-Dec-2013 13:26 Phone Encounter On: 30-Nov-2013 12:48 [facility] End: 30-Nov-2013 12:49 Office Visit On: 30-Nov-2013 11:26 [facility] End: 30-Nov-2013 11:40 Phone Encounter On: 15-Nov-2013 15:55 [facility] End: 15-Nov-2013 15:56 Phone Encounter On: 09-Nov-2013 11:33 [facility] End: 09-Nov-2013 11:33 Phone Encounter On: 23-Oct-2013 14:53 [facility] End: 23-Oct-2013 14:56 Phone Encounter On: 23-Oct-2013 10:29 [facility] End: 23-Oct-2013 10:30 Phone Encounter On: 15-Sep-2013 11:57 Encounter Diagnosis: DVT (453.42) End: 15-Sep-2013 11:59 [facility] Phone Encounter On: 11-Sep-2013 15:02 Encounter Diagnosis: DVT (453.42) End: 11-Sep-2013 15:04 [facility] Office Visit On: 11-Sep-2013 13:42 Encounter Reason: fall - i slipped and fell in the bath tub about 5 days agoEncounter Diagnosis: Fall in or into filled bathtub causing other injury, Rib pain End: 11-Sep-2013 14:08 [facility] Office Visit On: 24-Aug-2013 8:50 Encounter Reason: Cold Symptoms - Onset was 1 week(s) ago.Encounter Diagnosis: Cough, BRONCHITIS, NOT SPECIFIED ACUTE OR CHRONIC (490.) End: 24-Aug-2013 9:35 [facility] Office Visit On: 07-Aug-2013 13:49 Encounter Reason: Skin Problems - The onset of the skin problems has been sudden and they have been occurring in a persistent pattern for weeks. The course has been increasing. The problem is characterized as a rash, dry End: 07-Aug-2013 14:08 ness and a change in skin color. Lesions are described as red. The spots were first seen on the trunk, the upper extremity (L wrist) and sites of pressure (R foot ). There has been no progression. There has been no associated itching or pain. Encounter Diagnosis: Rash of hands, Eczema of hand [facility] Phone Encounter On: 12-Jun-2013 15:13 Encounter Diagnosis: DVT (453.42) End: 12-Jun-2013 15:14 [facility] Prescription Refill On: 27-Mar-2013 13:27 Encounter Diagnosis: DVT (453.42) End: 27-Mar-2013 13:27 [facility] Office Visit On: 15-Mar-2013 11:21 Encounter Diagnosis: Need for prophylactic vaccination and inoculation against influenza (V04.81) End: 15-Mar-2013 11:56 [facility] Office Visit On: 01-Mar-2013 15:34 Encounter Reason: UTI - The urinary symptoms are described as frequency and burning. The symptoms have been occurring for 1 week and have been increasing. The symptoms have been associated with fever. There is a history End: 01-Mar-2013 15:53 of recent catheterization (had recent hysterectomy ).Encounter Diagnosis: UTI (lower urinary tract infection) (599.0), H/O hysterectomy for benign disease (V88.01) [facility] Office Visit On: 20-Feb-2013 8:32 Encounter Reason: Follow up hospital - Reason for ER visit: note: (total hyster). The patient feels well with minor complaints, has decreased energy level and is sleeping well. Patient has been compliant with instruction End: 20-Feb-2013 12:46 s. Current medication use: no side effects and compliant with dosing regimen. Patient sleeps 8 hours per night. Nutrition: balanced diet.Encounter Diagnosis: Uterine Fibroid (218.9), OTHER SPECIFIED DISEASES OF BLOOD AND BLOOD-FORMING ORGANS; PRIMARY HYPERCOAGULABLE STATE (289.81), Leg cramps (729.82), Wound drainage (879.8) [facility] Refill Request On: 31-Jan-2013 16:55 Encounter Diagnosis: DVT (453.42) End: 31-Jan-2013 17:05 [facility] Office Visit On: 24-Oct-2012 15:06 Encounter Reason: Follow up tests - Date: (10/17/12 mri).Encounter Diagnosis: Abnormal CT of Abdomen(794.9), Uterine Fibroid (218.9), Hyperprolactinemia (253.1), Family history of aortic aneurysm (V17.49) End: 24-Oct-2012 15:47 [facility] Office Visit On: 04-Oct-2012 12:07 Encounter Reason: Follow up tests - Date: (). Current symptoms include abdominal pain.Encounter Diagnosis: Abdominal Pain,General (789.07), Uterine Fibroid (218.9), ABNORMAL PELIVC ULTRASOUND (793.5), Hyperglycemia (790.29), End: 04-Oct-2012 12:50 Hyperprolactinemia (253.1), Rectal Bleeding(569.3) [facility] Office Visit On: 28-Sep-2012 8:13 Encounter Reason: Abdominal pain - The onset of the pain has been gradual and has been occurring in a persistent pattern for 1 year. The course has been constant. The pain is described as a moderate sharp pain, dull ache End: 28-Sep-2012 8:39 , pressure sensation and fullness. The pain is described as being located in the lower abdomen. The pain does not radiate. The symptoms have no aggravating factors. The symptoms have no relieving factor s. The symptoms have been associated with bloody stools and constipation.Encounter Diagnosis: DVT (453.42), Abdominal Pain,General (789.07), DUB (626.8), Rectal Bleeding(569.3) [facility] Office Visit On: 19-Aug-2012 13:59 Encounter Diagnosis: Breast enlargement (611.1), DVT (453.42) End: 19-Aug-2012 14:18 [facility] Office Visit On: 04-Jul-2012 16:23 Encounter Reason: Follow up acute care visit - The patient feeling better since last seen and improving. Patient has been compliant with instructions. Current medication use: no side effects. Patient sleeps 7 hours per n End: 04-Jul-2012 16:52 ight. The medical issues the patient is following up for include All identified problems below and other (carpel opal ).Encounter Diagnosis: Forearm strain (841.9) [facility] Office Visit On: 27-Jun-2012 12:46 Encounter Reason: Flu Like Symptoms - Symptoms include chills, body aches and productive cough, while symptoms do not include headache. Onset was sudden 1 day(s) ago. The symptoms occur constantly. The patient describes End: 27-Jun-2012 13:31 this as worsening. Associated symptoms do not include ear pain, shortness of breath or fatigue.Encounter Diagnosis: BRONCHITIS, NOT SPECIFIED ACUTE OR CHRONIC (490.), Myalgia(729.1) [facility] Phone Encounter On: 08-Jun-2012 17:23 [facility] End: 08-Jun-2012 17:26 Office Visit On: 07-Jun-2012 12:54 Encounter Reason: Arm pain - The onset of the pain has been sudden and has been occurring in a persistent pattern for weeks. The course has been increasing. The pain is described as moderate. The pain is described as be End: 07-Jun-2012 13:33 ing located in the right forearm. The pain is aggravated by lifting, extending elbow, twisting hand up and down and grasping. The pain is relieved by nothing.Encounter Diagnosis: Forearm strain (841.9) [facility] Office Visit On: 25-Apr-2012 13:40 Encounter Reason: Injections - The medication the patient is here to receive is other.Encounter Diagnosis: Need for prophylactic vaccination and inoculation against influenza (V04.81), DVT (453.42) End: 02-May-2012 15:11 [facility] Office Visit On: 22-Jan-2012 13:05 Encounter Diagnosis: INJURY DUE TO ANIMAL BITE NOS (E906.5) End: 22-Jan-2012 13:09 [facility] Office Visit On: 18-Jan-2012 15:17 Encounter Diagnosis: INJURY DUE TO ANIMAL BITE NOS (E906.5) End: 20-Jan-2012 7:25 [facility] Phone Encounter On: 10-Nov-2011 13:17 [facility] End: 10-Nov-2011 13:18 Office Visit On: 28-Oct-2011 16:05 Encounter Reason: UTI - The urinary symptoms are described as frequency and burning. The symptoms have been occurring for months and have been increasing. The urine is described as clear. The symptoms have been associat End: 28-Oct-2011 16:21 ed with abdominal pain and low back pain, while the symptoms have not been associated with fever or perineal pain. The patient denies the use of oral contraceptives, antibiotics, hormone replacement therapy or pyridium/uristat.Encounter Diagnosis: SYMPTOM, FREQUENCY, URINARY (788.41), DVT (453.42) [facility] Annotation/Addendum On: 22-Oct-2011 12:16 Encounter Diagnosis: DVT (453.42) End: 22-Oct-2011 12:17 [facility] Office Visit On: 21-Sep-2011 15:43 Encounter Reason: Abdominal pain - The onset of the pain has been sudden and has been occurring in a persistent pattern for 2 weeks. The course has been constant. The pain is described as a severe sharp pain, stabbing an End: 21-Sep-2011 16:24 d crampy. The pain is described as being located in the entire abdomen. The pain does not radiate. The symptoms are aggravated by meals (2 to 4 hours after eating) and lying down. The symptoms have no r elieving factors. The symptoms have been associated with nausea and vomiting, ??while the symptoms have not been associated with diarrhea.Encounter Diagnosis: Epigastric pain (789.06), Abdominal Pain,RUQ(789.01) [facility] Office Visit On: 04-Sep-2011 10:35 Encounter Diagnosis: DVT (453.42), leg pain 729.5 (Renamed from Foot pain (729.5)) End: 04-Sep-2011 11:45 [facility] Office Visit On: 03-Jun-2011 10:47 Encounter Reason: Sinusitis/ - The duration of the symptoms are 4 days The course has been worsening. The sinusitis/ has no relieving factors. Associated features include The symptoms have been associated with cough, meme End: 03-Jun-2011 11:35 al discharge/stuffy nose (yellow) and sinus pain, while the symptoms have not been associated with ear pain or purulent discharge from ear.Encounter Diagnosis: BRONCHITIS, NOT SPECIFIED ACUTE OR CHRONIC (490.), Cough (786.2) [facility] Phone Encounter On: 30-Apr-2011 9:32 [facility] End: 30-Apr-2011 9:34 Office Visit On: 01-Apr-2011 10:17 Encounter Reason: Injections - The medication the patient is here to receive is other (flu).Encounter Diagnosis: Need for prophylactic vaccination and inoculation against influenza (V04.81) End: 01-Apr-2011 10:49 [facility] Phone Encounter On: 29-Jan-2011 12:17 [facility] End: 29-Jan-2011 12:19 Phone Encounter On: 19-Dec-2010 17:13 [facility] End: 19-Dec-2010 17:15 Office Visit On: 23-Sep-2010 10:30 Encounter Reason: Ear pain - The onset of the pain has been sudden and has been occurring in a persistent pattern for 2 days. The course has been constant. The pain is described as a severe dull aching and sharp pain. Th End: 23-Sep-2010 11:11 e pain is described as being located in the inner ear. The pain is felt in the left ear. The symptoms have been associated with fever, while the symptoms have not been associated with chills, decreased hearing, inability to 'pop' ear drum, sinus problems or sore throat.Encounter Diagnosis: Dysfunction of eustachian tube (381.81), Otalgia, unspecified (388.70), DVT (453.42) [facility] Office Visit On: 05-Sep-2010 11:34 Encounter Reason: Follow up acute care visit - The patient feeling better since last seen, has decreased energy level and improving. Patient has been compliant with instructions. Current medication use: experiencing side End: 05-Sep-2010 12:06 effects (diarrhea) and compliant with dosing regimen. Patient sleeps 3 hours per night. The medical issues the patient is following up for include All identified problems below and other (bronchitis).Encounter Diagnosis: BRONCHITIS, NOT SPECIFIED ACUTE OR CHRONIC (490.) [facility] Phone Encounter On: 01-Sep-2010 18:05 [facility] End: 01-Sep-2010 18:06 Office Visit On: 01-Sep-2010 11:10 Encounter Reason: Cough - The onset of the cough has been sudden and has been occurring in an intermittent pattern for 4 days. The course has been increasing. The cough is characterized as dry. The cough occurs all the time.Encounter Diagnosis: End: 01-Sep-2010 11:52 Cough (786.2), SOB (786.05), BRONCHITIS, NOT SPECIFIED ACUTE OR CHRONIC (490.) [facility] Office Visit On: 13-Aug-2010 9:41 Encounter Reason: Follow up for chronic medical issues - The patient feels well with minor complaints, has good energy level and is sleeping well. Patient has been compliant with instructions. Current medication use: no End: 13-Aug-2010 10:20 side effects and compliant with dosing regimen. Patient sleeps 7 hours per night. Nutrition: balanced diet and no supplemental vitamins & iron. The medical issues the patient is following up for inc lude All identified problems below, cardiac issues, high blood pressure and high cholesterol.Encounter Diagnosis: OTHER SPECIFIED DISEASES OF BLOOD AND BLOOD- FORMING ORGANS; PRIMARY HYPERCOAGULABLE STATE (289.81), SCHIZOPHRENIFORM DISORDER, CHRONIC STATE (295.42), Bipolar disorder, unspecified (296.80), Obstructive sleep apnea (327.23), Cardiomyopathy(425.4), BRONCHITIS, NOT SPECIFIED ACUTE OR CHRONIC (490.), Myalgia(729.1), Wheezing (786.07) [facility] Phone Encounter On: 11-Jul-2010 10:32 [facility] End: 11-Jul-2010 10:35 Office Visit On: 10-Apr-2010 8:33 Encounter Reason: Follow up for chronic medical issues - The patient feels well with minor complaints, has good energy level and is sleeping well. Patient has been compliant with instructions. Current medication use: no End: 10-Apr-2010 9:15 side effects and compliant with dosing regimen. Patient sleeps 6 hours per night. Nutrition: balanced diet and no supplemental vitamins & iron. The medical issues the patient is following up for inc ulyssese All identified problems below, high blood pressure and high cholesterol. blood pressure range : and weight :.Encounter Diagnosis: Cardiomyopathy(425.4), EMBOLISM AND THROMBOSIS OF OTHER SPECIFIED VEINS (453.8), Obstructive sleep apnea (327.23), Irritable bowel syndrome (564.1), Obesity, unspecified (278.00), SCHIZOPHRENIFORM DISORDER, CHRONIC STATE (295.42), OTHER SPECIFIED DISEASES OF BLOOD AND BLOOD- FORMING ORGANS; PRIMARY HYPERCOAGULABLE STATE (289.81), Need for prophylactic vaccination and inoculation against influenza (V04.81) [facility] Phone Encounter On: 27-Mar-2010 16:26 [facility] End: 27-Mar-2010 16:27 Office Visit On: 24-Mar-2010 9:50 Encounter Reason: Follow up acute care visit - The patient feeling better since last seen (not fully better, threw up this am.). Patient has been compliant with instructions. Patient sleeps 8 hours per night. Nutrition: End: 24-Mar-2010 10:20 balanced diet and no supplemental vitamins & iron. The medical issues the patient is following up for include asthma and depression. Encounter Diagnosis: BRONCHITIS, NOT SPECIFIED ACUTE OR CHRONIC (490.), EMBOLISM AND THROMBOSIS OF OTHER SPECIFIED VEINS (453.8), Knee pain (719.46) [facility] Office Visit On: 17-Mar-2010 16:06 Encounter Reason: Cold Symptoms - Symptoms include nasal congestion ,postnasal drainage ,scratchy throat ,dry cough and headache. Onset was sudden 5 day(s) ago. Onset followed exposure at home to someone with upper respi End: 17-Mar-2010 16:34 ratory symptoms. The symptoms occur constantly. Encounter Diagnosis: BRONCHITIS, NOT SPECIFIED ACUTE OR CHRONIC (490.), Wheezing (786.07), SOB (786.05), Cough (786.2) [facility] Annotation/Addendum On: 17-Feb-2010 18:06 [facility] End: 17-Feb-2010 18:07 Office Visit On: 11-Dec-2009 9:30 Encounter Diagnosis: Cardiomyopathy(425.4), Obesity, unspecified (278.00) End: 11-Dec-2009 10:31 [facility] Phone Encounter On: 14-Nov-2009 16:40 [facility] End: 14-Nov-2009 16:43 Office Visit On: 13-Nov-2009 10:20 Encounter Reason: Follow up acute care visit - The patient feeling better since last seen. Patient has been compliant with instructions. Current medication use: no side effects and compliant with dosing regimen. Patient End: 13-Nov-2009 10:56 sleeps 6 hours per night. Nutrition: inappropriate diet. The medical issues the patient is following up for include All identified problems below and asthma. Encounter Diagnosis: SOB (786.05), Cough (786.2), ASTHMA, UNSPECIFIED, WITH ACUTE EXACERBATION (493.92), Cardiomyopathy(425.4), EMBOLISM AND THROMBOSIS OF OTHER SPECIFIED VEINS (453.8) [facility] Office Visit On: 06-Nov-2009 12:12 Encounter Reason: Follow up hospital - Reason for ER visit: note:. The patient feels well with minor complaints. Patient has been compliant with instructions. Current medication use: no side effects and compliant with do End: 06-Nov-2009 12:38 sing regimen. Patient sleeps 6 hours per night. Nutrition: inappropriate diet. Encounter Diagnosis: ASTHMA, UNSPECIFIED, WITH ACUTE EXACERBATION (493.92), SOB (786.05), Cough (786.2) [facility] Office Visit On: 01-Nov-2009 12:59 Encounter Reason: Follow up acute care visit - The patient feeling better since last seen and improving. Patient has been compliant with instructions. Current medication use: no side effects and compliant with dosing reg End: 01-Nov-2009 15:57 imen. Patient sleeps 3 hours per night. The medical issues the patient is following up for include All identified problems below ,asthma and URI. Note for Follow up acute care visit: she feels about 10 percent better, [ADDITIONAL REASON] Follow up, Diagnostic Procedure Results - Diagnostic tests include chest X-ray. Date: (10/31/09). Encounter Diagnosis: ASTHMA, UNSPECIFIED, WITH ACUTE EXACERBATION (493.92), Cough (786.2), SOB (786.05) [facility] Office Visit On: 31-Oct-2009 12:08 Encounter Reason: Cough - The onset of the cough has been 3 days ago. The cough is characterized as productive of mucoid sputum. The amount of sputum produced is scanty. The cough occurs all the time. The symptoms are ag End: 31-Oct-2009 13:30 gravated by supine posture and particular position, but not by meals. The symptoms have been associated with headache ,hoarseness ,runny nose ,sore throat and wheezing, while the symptoms have not been associated with fever. the color of the sputum is greenish and yellowish. Encounter Diagnosis: ASTHMA, UNSPECIFIED, WITH ACUTE EXACERBATION (493.92), Cough (786.2), Myalgia(729.1) [facility] Phone Encounter On: 21-Oct-2009 9:07 [facility] End: 21-Oct-2009 9:10 Office Visit On: 13-Sep-2009 12:52 Encounter Reason: Follow up, Diagnostic Procedure Results - Diagnostic tests include CT scan (09-04-09) and ECHO. Date: (09-06-09). , [ADDITIONAL REASON] Follow up, Laboratory Test Results - Date: (08-29-09). Encounter Diagnosis: SOB (786.05) End: 13-Sep-2009 13:51 [facility] Office Visit On: 29-Aug-2009 9:44 Encounter Reason: Follow up for chronic medical issues - The patient feels well with minor complaints ,has decreased energy level and is sleeping poorly. Patient has been compliant with instructions. Current medication u End: 29-Aug-2009 11:20 se: no side effects and compliant with dosing regimen. Patient sleeps 7 hours per night. Nutrition: inappropriate diet and no supplemental vitamins & iron. The medical issues the patient is followin g up for include All identified problems below ,depression and high blood pressure. Encounter Diagnosis: SOB (786.05), Cardiomyopathy(425.4), Irritable bowel syndrome (564.1), Obstructive sleep apnea (327.23), DVT (453.42), OTHER SPECIFIED DISEASES OF BLOOD AND BLOOD-FORMING ORGANS; PRIMARY HYPERCOAGULABLE STATE (289.81), Obesity, unspecified (278.00), SCHIZOPHRENIFORM DISORDER, CHRONIC STATE (295.42), Bipolar disorder, unspecified (296.80) [facility] Phone Encounter On: 16-Aug-2009 9:30 [facility] End: 16-Aug-2009 9:32 Office Visit On: 06-Aug-2009 10:38 Encounter Reason: Cough - The onset of the cough has been 3 weeks ago. The cough is characterized as productive of mucopurulent sputum. The amount of sputum produced is less than a half a cup per day. The cough occurs al End: 06-Aug-2009 22:14 l the time. The symptoms are not aggravated by supine posture ,meals or exercise. There has been no associated fever ,headache ,hoarseness ,runny nose ,sore throat or wheezing. the color of the sputum i s yellowish. Note for Cough: 2-3 weeks- mucopurlent sputum- some wheeze little sob- one bout vomit yesterday after heavy coughing- using cough drops- hx of bronchitis- feels like that- hx of baldemar qnd dvtEncounter Diagnosis: Acute bronchitis (466.0) [facility] Office Visit On: 25-Jul-2009 15:35 [facility] End: 25-Jul-2009 15:54 Office Visit On: 29-May-2009 8:42 Encounter Reason: Follow up, Laboratory Test Results - Date: (05-15-09). Encounter Diagnosis: DVT (453.42), OTHER SPECIFIED DISEASES OF BLOOD AND BLOOD-FORMING ORGANS; PRIMARY HYPERCOAGULABLE STATE (289.81), Obesity, unspecified (278.00), End: 29-May-2009 9:42 PROTEIN C DEFICIENCY DISEASE [facility] Phone Encounter On: 15-May-2009 17:10 [facility] End: 15-May-2009 17:11 Office Visit On: 15-May-2009 11:15 Encounter Reason: Follow up for chronic medical issues - The patient feels well with minor complaints (i am so tred lately -- progressively getting worse over months -- just want to sleep all the time) ,has decreased moises End: 15-May-2009 13:43 rgy level and is sleeping well. Patient has been compliant with instructions. Current medication use: no side effects and compliant with dosing regimen. Patient sleeps 8 hours per night. Impact of disea se: no overall impact. Nutrition: balanced diet and no supplemental vitamins & iron. The medical issues the patient is following up for include All identified problems below and other (Scizophrenia,bipolar,DVT). , [ADDITIONAL REASON] Follow up, Diagnostic Procedure Results - Date: (04-30-09 doppler). Encounter Diagnosis: Cardiomyopathy(425.4), Amenorrhea(626.0), DVT (453.42), Fatigue (780.79), Irritable bowel syndrome (564.1), SCHIZOPHRENIFORM DISORDER, CHRONIC STATE (295.42), Bipolar disorder, unspecified (296.80) [facility] Office Visit On: 07-May-2009 17:16 [facility] End: 07-May-2009 22:30 Phone Encounter On: 17-Apr-2009 16:49 [facility] End: 17-Apr-2009 16:50 Phone Encounter On: 26-Mar-2009 17:11 [facility] End: 26-Mar-2009 17:13 Phone Encounter On: 15-Mar-2009 11:57 [facility] End: 15-Mar-2009 11:58 Phone Encounter On: 27-Feb-2009 17:00 [facility] End: 27-Feb-2009 17:01 Office Visit On: 14-Feb-2009 14:12 Encounter Diagnosis: DVT (453.42) End: 14-Feb-2009 14:48 [facility] Office Visit On: 29-Jan-2009 14:24 Encounter Diagnosis: DVT (453.42) End: 29-Jan-2009 14:43 [facility] Office Visit On: 04-Jan-2009 10:35 Encounter Reason: Coumadin visit - Denies following symptoms: bruising or prolonged bleeding. Date: (12/20/08). Current medicaion use: compliant with dosing regimen. Encounter Diagnosis: DVT (453.42) End: 04-Jan-2009 11:39 [facility] Annotation/Addendum On: 20-Dec-2008 15:41 Encounter Reason: Coumadin visit - Denies following symptoms: blood in urine ,bruising ,nausea ,prolonged bleeding or spontaneous bleeding. Date: (12/05/08). Current medicaion use: compliant with dosing regimen and experiencing no side effects. End: 20-Dec-2008 16:02 Encounter Diagnosis: DVT (453.42) [facility] Office Visit On: 05-Dec-2008 13:53 Encounter Diagnosis: DVT (453.42) End: 06-Dec-2008 9:16 [facility] Office Visit On: 14-Nov-2008 11:24 Encounter Reason: Follow up for chronic medical issues - The patient feels well with minor complaints (left leg is somewhat itchy and swollen.) ,has good energy level and is sleeping well. Patient has been compliant with End: 14-Nov-2008 13:25 instructions. Current medication use: no side effects. Patient sleeps 9 hours per night. Nutrition: inappropriate diet and no supplemental vitamins & iron. Encounter Diagnosis: DVT (453.42), Cardiomyopathy(425.4), Cardiac dysrhythmia, unspecified (427.9), Obstructive sleep apnea (327.23) [facility] Historical Summary On: 31-Oct-2008 16:15 [facility] End: 31-Oct-2008 16:16 Nurse Visit On: 11-Oct-2008 10:23 Encounter Diagnosis: DVT (453.42) End: 11-Oct-2008 11:02 [facility] Office Visit On: 08-Oct-2008 14:40 Encounter Reason: Coumadin visit - Denies following symptoms: blood in urine ,bruising ,nausea ,prolonged bleeding or spontaneous bleeding. Date: (10/01/08). Current medicaion use: compliant with dosing regimen and experiencing no side effects. End: 08-Oct-2008 15:01 Encounter Diagnosis: DVT (453.42) [facility] Office Visit On: 05-Oct-2008 8:13 Encounter Diagnosis: EMBOLISM AND THROMBOSIS OF OTHER SPECIFIED VEINS (453.8), DVT (453.42) End: 05-Oct-2008 8:40 [facility] Office Visit On: 01-Oct-2008 14:41 Encounter Diagnosis: DVT (453.42) End: 01-Oct-2008 14:53 [facility] Office Visit On: 27-Sep-2008 9:30 [facility] End: 27-Sep-2008 12:13 Office Visit On: 27-Sep-2008 8:52 Encounter Reason: Follow up hospital - Reason for ER visit: DVT (left leg) and note: (I went in since I was having alot of leg pain and they said I have a clot in my left upper leg). The patient does not feel well ,has d End: 27-Sep-2008 9:26 ecreased energy level and is sleeping poorly. Patient has been compliant with instructions. Current medication use: no side effects and compliant with dosing regimen. Nutrition: balanced diet. Encounter Diagnosis: DVT (453.42) [facility] Office Visit On: 13-Sep-2008 11:25 Encounter Reason: Preoperative evaluation - The patient feels well with minor complaints ,has decreased energy level and is sleeping well. Surgical procedures include: other (D&C). There have been no problems with ge End: 13-Sep-2008 12:24 neral anesthesia or blood/blood products. Encounter Diagnosis: Pre-operative examination, unspecified (V72.84), Cardiomyopathy(425.4) [facility] Office Visit On: 09-May-2008 11:52 Encounter Reason: Foot Pain - The onset of the foot pain has been gradual and has been occurring in a persistent pattern for 8 months. The course has been gradually worsening. The foot pain is moderate to severe. The thien End: 09-May-2008 12:13 t pain is characterized as a sharp stabbing. The foot pain is described as being located in the entire foot (left foot). The foot pain is aggravated by physical activity and any movement. The pain has n ot been relieved by anything. There has been no associated giving way ,swelling or locking. There have been no previous diagnostic tests. There have been no previous evaluations. These has been no previ ous physical therapy. There have been no previous surgeries. There has been no use of assistive devices. Previous medications have included Tylenol. Encounter Diagnosis: Foot pain (729.5), Need for prophylactic vaccination and inoculation against influenza (V04.81) [facility] Office Visit On: 13-Apr-2008 14:38 Encounter Reason: Cough - The onset of the cough has been acute. The cough is characterized as productive of mucoid sputum. The amount of sputum produced is scanty. The cough occurs all the time. the color of the sputum End: 13-Apr-2008 14:57 is yellowish. Note for Cough: never went awayEncounter Diagnosis: Acute bronchitis (466.0) [facility] Office Visit On: 28-Feb-2008 16:03 Encounter Reason: Cough - The onset of the cough has been acute. The cough is characterized as productive of mucoid sputum. The amount of sputum produced is scanty. The cough occurs all the time. the color of the sputum is yellowish. End: 28-Feb-2008 16:30 Encounter Diagnosis: WHEEZING, NOS (786.09), Acute bronchitis (466.0), Sinus congestion (478.19) [facility] Historical Summary On: 23-Feb-2008 8:34 [facility] End: 23-Feb-2008 8:34 Office Visit On: 13-Apr-2007 14:48 Encounter Reason: Breast problems - The onset of the breast problems has been sudden and they have been occurring in a persistent pattern for 5 months. The course has been constant. The breast problems are described as m End: 13-Apr-2007 16:56 ild. Note for Breast problems: both breast are leaking never looked at what comes out. I am always at night I wake up and I am wet., [ADDITIONAL REASON] Menstrual problems - The menstrual problem is characterized as absent menses (x 5months) and has been occurring for 5 months. The problem has been occurring in a non-cyclic pattern. Last menstrual period: more than 3 months ago. Currently : no Encounter Diagnosis: Breast discharge (611.79), Amenorrhea(626.0), Need for prophylactic vaccination and inoculation against influenza (V04.81), Cardiomyopathy(425.4) [facility] Office Visit On: 03-Dec-2006 8:45 Encounter Reason: Follow up for chronic medical issues - The patient feels well with no complaints ,has good energy level and is sleeping well. Patient has been compliant with instructions. Current medication use: no carroll End: 03-Dec-2006 13:22 e effects and compliant with dosing regimen. Patient sleeps 8 hours per night. Nutrition: inappropriate diet and no supplemental vitamins & iron. The medical issues the patient is following up for i nclude All identified problems below ,cardiac issues ,gastric reflux and other (CTS). Encounter Diagnosis: Cardiomyopathy(425.4), Irritable bowel syndrome (564.1), Peptic Ulcer Disease (536.9), Epigastric pain (789.06), Bipolar disorder, unspecified (296.80), SCHIZOPHRENIFORM DISORDER, CHRONIC STATE (295.42) [facility] Historical Summary On: 12-Nov-2006 11:45 [facility] End: 12-Nov-2006 11:53 Payers [employer] Secondary Filippo Nielsen; a guarantor
--- OUTSIDE RECORDS SUMMARY | 2018-09-19 12:40 | XMS RPT_ITS | Continuity of Care Document ---
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 if necessary. 10/13/172246 <Electronically signed by Stone Felix MD> Date Stone Felix MD Cosigner Signature (If Indicated): Date CC: Paty Catalan DO 13-Oct-2017 Emergency Department Summary Result: Comments: See Note; NOTES: [facility] Medical Records Department [address] [place] [address] Emergency Department Summary 10/13/172244 MR#: [id number] Acct: [id number] Name: SIMI NIELSEN Rep #: [id number] : 1970 47 From: Stone Felix MD PCP: Paty Catalan DO Status: PRE ER - ER Visit Summary Date of Service: 10/13/17 Chief Complaint: Vaginal itching and sp otting History of Present Illness: The patient is a 47 F with a history of a total hysterectomy on who had some vaginal itching today and [...] of the need to follow-up with a bacteriologist food. Stance return for new or worsening symptoms. She was discharged. Treatment Plan: [] Disposition: Discharge Impression: Vaginal bleeding This note was generated with ComActivity dictation software. It may contain incorrect words, [...] problems, contact your Primary Care Provider. Call [facility] ([phone]) or report to the closest Emergency Room. Call 911 if necessary. 10/13/17 2247 <Electronically signed by Stone Felix MD> Date Stone garcia MD Cosigner Signature (If Indicated): Date CC: Paty Catalan DO 30-Sep-2017 SCREENING MAMM (CAD), BILAT Result: Comments: See Note; NOTES: [facility] Imaging Services [address] [place] [address] SCREENING MAMM (CAD), BILAT MR#: [id number] Acct: [id number] Name: SIMI NIELSEN Rep #: [id number] : 1970 F 47 From: Jaxon Adame MD PCP: Paty Catalan DO [facility] Study: SCREENING MAMM (CAD), BILAT Date of Exam: 09/30/17 Exam# [id number] Ordering Dr: Paty Catalan DO MAMMOGRAPHY - [...] delay biopsy of a clinically suspicious abnormality. [id number] Electronically Signed: Jaxon Pedro i, MD at 8:14 EDT Tel [phone], Service support , CC: Paty Catalan DO Founding Partner: Signed 06-Sep-2017 Hand 2 Views Result: Comments: See Note; NOTES: [facility] Imaging Services [address] [place] [address] Hand 2 Views MR#: [id number] Acct: [id number] Name: SIMI NIELSEN Rep #: [id number] : 0 1970 F 47 From: Olivia Ramirez MD PCP: Paty Catalan DO Status: REG CLI Study: Hand 2 Views Date of Exam: 09/06/17 Exam# [id number] Ordering Dr: Paty Catalan DO STUDY: X-RAY [...] Ramirez MD at 8:19 EDT Tel Direct: [phone], Service support [phone], CC: Paty Catalan DO Founding Partner: Signed 06-Sep-2017 Hand 2 Views Result: Comments: See Note; NOTES: [facility] Imaging Services [address] [place] [address] Hand 2 Views MR#: [id number] Acct: [id number] Name: SIMI NIELSEN Rep #: [id number] : 0 1970 F 47 From: Olivia Ramirez MD PCP: Paty Catalan DO Status: REG CLI Study: Hand 2 Views Date of Exam: 09/06/17 Exam# [id number] Ordering Dr: Paty Catalan DO STUDY: X-RAY [...] Ramirez MD at 8:20 EDT Tel Direct: [phone], Service support [phone], CC: Paty Catalan DO Founding Partner: Signed 27-Jul-2017 Ankle min 3 Views Result: Comments: See Note; NOTES: [facility] Imaging Services [address] [place] [address] Ankle min 3 Views MR#: [id number] Acct: [id number] Name: SIMI NIELSEN Rep #: [id number] D OB: 1970 F 47 From: Jaxon Adame MD PCP: Paty Catalan DO Status: REG CLI Study: Ankle min 3 Views Date of Exam: 07/27/17 Exam# [id number] Ordering Dr: Paty Catalan DO STUDY: X-RAY [...] Aung Adame MD at 12:44 EST Tel [phone], Service support , CC: Paty Catalan DO Founding Partner: Signed 27-Jul-2017 Ankle min 3 Views Result: Comments: See Note; NOTES: [facility] Imaging Services [address] [place] [address] Ankle min 3 Views MR#: [id number] Acct: [id number] Name: SIMI NIELSEN Rep #: [id number] D OB: 1970 F 47 From: Jaxon Adame MD PCP: Paty Catalan DO Status: REG CLI Study: Ankle min 3 Views Date of Exam: 07/27/17 Exam# [id number] Ordering Dr: Paty Catalan DO STUDY: X-RAY [...] Jaxon Adame MD at 12:45 EST Tel [phone], Service support , CC: Paty Catalan DO Founding Partner: Signed 27-Jul-2017 Foot min 3 Views Result: Comments: See Note; NOTES: [facility] Imaging Services [address] [place] [address] Foot min 3 Views MR#: [id number] Acct: [id number] Name: SIMI NIELSEN Rep #: [id number] DO B: 1970 F 47 From: Rom Edgar MD PCP: Paty Catalan DO Status: REG CLI Study: Foot min 3 Views Date of Exam: 07/27/17 Exam# [id number] Ordering Dr: Paty Catalan DO STUDY: X-RAY [...] support , Fax CC: Paty Catalan DO Founding Partner: Signed 27-Jul-2017 Foot min 3 Views Result: Comments: See Note; NOTES: [facility] Imaging Services [address] [place] [address] Foot min 3 Views MR#: [id number] Acct: [id number] Name: SIMI NIELSEN Rep #: [id number] DO B: 1970 F 47 From: Rom Edgar MD PCP: Paty Catalan DO Status: REG CLI Study: Foot min 3 Views Date of Exam: 07/27/17 Exam# [id number] Ordering Dr: Paty Catalan DO STUDY: X-RAY [...] Service support , CC: Paty Catalan DO Founding Partner: Signed 16-Jul-2017 Abdomen Single View Result: Comments: See Note; NOTES: [facility] Imaging Services [address] [place] [address] Abdomen Single View MR#: [id number] Acct: [id number] Name: SIMI NIELSEN Rep #: [id number] : 1970 F 47 From: Marlene Sawant MD PCP: Paty Catalan DO Status: REG CLI Study: Abdomen Single View Date of Exam: 07/16/17 Exam# [id number] Ordering Dr: Zuleima Ingram STUDY: X-RAY - [...] , Service support , CC: Zuleima Ingram NP; Paty Catalan DO Founding Partner: Signed 24-Jun-2017 Liver Result: Comments: See Note; NOTES: [facility] Imaging Services [address] [place] [address] Liver MR#: [id number] Acct: [id number] Name: SIMI NIELSEN Rep #: [id number] : [birth year] F 47 From: Nisreen Borges MD PCP: Paty Catalan DO Status: REG CLI Study: Liver Date of Exam: 06/24/17 Exam# [id number] Ordering Dr: Paty Catalan DO STUDY: ABDOMINAL [...] Service support , CC: Paty Catalan DO Founding Partner: Signed 19-Jun-2017 Venous Duplex Lower Extremity Result: Comments: See Note; NOTES: [facility] Cardiovascular Services [address] [place] [address] Venous Duplex US - Osmin Extrem 06/17/17 1356 MR#: [id number] Acct: [id number] Name: SIMI NIELSEN Rep #: [id number] : 1970 47 From: Mamadou Bonds MD [...] Paty Catalan Performed By: Behzad Guzman RVT 06/19/17 0911 Date Mamadou Bonds MD CC: Paty Catalan DO Date Dictated: 06/17/17 1356 Date Transcribed: 06/19/17 0911 Founding Partner: Signed 17-Jun-2017 Chest WITH Contrast Result: Comments: See Note; NOTES: [facility] Imaging Services [address] [place] [address] Chest WITH Contrast MR#: [id number] Acct: [id number] Name: SIMI NIELSEN Rep #: [id number] : 1970 F 47 From: Shannen Hong MD PCP: Paty Catalan DO Status: REG CLI Study: Chest WITH Contrast Date of Exam: 06/17/17 Exam# [id number] Ordering Dr: Paty Catalan DO STUDY: [facility] REASON FOR EXAM: Female, 47 years [...] lobe emboli. Clear lungs. Electronically Signed: Shannen Martiabbietaurus, at 20:37 EST Tel , Service support , CC: Paty Catalan DO Founding Partner: Signed 02-Jun-2017 Chest PA and Lateral Result: Comments: See Note; NOTES: [facility] Imaging Services [address] [place] [address] Chest PA and Lateral MR#: [id number] Acct: [id number] Name: SIMI NIELSEN Rep #: [id number] : 1970 F 47 From: Jaxon Adame MD PCP: Paty Catalan DO Status: REG CLI Study: Chest PA and Lateral Date of Exam: 06/02/17 Exam# [id number] Ordering Dr: Paty Catalan DO STUDY: X [...] Jaxon Adame MD at 16:03 EST Tel [phone], Service support , CC: Paty Catalan DO Founding Partner: Signed 09-Mar-2017 Emergency Department Summary Result: Comments: See Note; NOTES: [facility] Medical Records Department [address] [place] [address] Emergency Department Summary 03/09/172027 MR#: [id number] Acct: [id number] Name: SIMI NIELSEN Rep #: [id number] : 1970 47 From: Stone Felix MD [...] Chief Complaint: Shortness of Breath Referrals: Paty Catalan, [Primary Care Provider] - What to do if you have Problems For any increased pain, shortn ess of breath, bleeding, nausea or vomiting, chest pain, or any unexpected problems, contact your Primary Care Provider. Call [facility] ([phone]) or report to the closest Emergency Room. Koby l 911 if necessary. 03/09/172029 <Electronically signed by Stone Felix MD> Date Stone Felix MD Cosigner Signature (If Indica osmin): Date CC: Paty Catalan DO 09-Mar-2017 Venous Duplex Lower Extremity Result: Comments: See Note; NOTES: [facility] Cardiovascular Services [address] [place] [address]147 Venous Duplex US - Osmin Extrem 03/09/17 1458 MR#: [id number] Acct: [id number] Name: SIMI NIELSEN Rep #: [id number] : 1970 47 From: Mamadou Bonds MD Attending Dr: EDIS Mcdowell Status: REG CLI Ordering Dr: Mavis BaldwinC Date: 03/09/17 Location: CT Sex: F C [...] is compressible. noncompressible. Procedure Exam performed in [facility]. The exam was diagnostic. A preliminary report was called and/or faxed to Mavis RANDHAWA. Interpretation Summary Acute deep vein thrombosis is [...] Physician: Paty Catalan M.D. Performed By: Behzad Guzman Keon 03/09/17 1537 Date Mamadou Bonds MD CC: EDIS Baldwin; Paty Catalan DO Date Dictated: 03/09/17 1458 Date Transcribed: 03/09/17 1537 Founding Partner: Signed 09-Mar-2017 CTA Chest W/WO Contrast Result: Comments: See Note; NOTES: [facility] Imaging Services [address] [place] [address] CTA Chest W/WO Contrast MR#: [id number] Acct: [id number] Name: SIMI NIELSEN Rep #: [id number] : 1970 F 47 From: Olivia Ramirez MD PCP: Paty Catalan DO Status: REG CLI Study: CTA Chest W/WO Contrast Date of Exam: 03/09/17 Exam# [id number] Ordering Dr: Mavis Baldwin TIMBER 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 : Dr. Garcia , Covering Physician, confirmed on 03/09/2017 18:33:20 (ET) that the referring physician received the results and did not require a verbal consultation. CC: EDIS Baldwin; Paty Catalan DO Founding Partner: Signed 18-Dec-2016 Sinus/Facial Bone Result: Comments: See Note; NOTES: [facility] Imaging Services [address] [place] [address] Verdana 4d Sinus/Facial Bone MR#: [id number] Acct: [id number] Name: SIMI NIELSEN Rep #: [id number] : 1970 F 46 From: Pedro Luis Palafox PCP: Paty Catalan DO Status: REG CLI Study: Sinus/Facial Bone Date of Exam: 12/18/16 Exam# [id number] Ordering Dr: Navid Sherman MD [facility] DY: CT MAXILLOFACIAL SINUSES REASON FOR [...] CC: Harry Sherman MD; Paty Catalan DO Founding Partner: Signed 29-Oct-2016 Echo, Complete w/ Contrast Result: Comments: See Note; NOTES: [facility] Cardiovascular Services [address] [place] [address] Echo Complete W/ Contrast 10/29/16 1402 MR#: [id number] Acct: [id number] Name: SIMI CABAN ACE Rep #: [id number] : 1970 46 From: Marshall Ford MD Attending Dr: Norman Burton MD Status: REG CLI Ordering Dr: Norman Burton MD Date: 10/29/16 Location: [facility] Sex: F C Admitted: Reason For Study: [...] Ordering Physician: Norman Layne Referring Physician: Paty Caatlan M.D. Performed By: Clarisa Joshi RDCS 10/29/161948 Date __ Marshall Ford MD CC: Paty Catalan DO; Norman Burton MD Date Dictated: 10/29/16 1402 Date Transcribed: 10/29/16 194 Founding Partner: Signed 22-Jul-2016 Chest PA and Lateral Result: Comments: See Note; NOTES: [facility] Imaging Services [address] [place] [address] Verdana 4d Chest PA and Lateral MR#: [id number] Acct: [id number] Name: SIMI NIELSEN Rep #: [id number] : 1970 F 46 From: Linda Méndez MD PCP: Paty Catalan DO Status: REG ER Study: Chest PA and Lateral Date of Exam: 07/22/16 Exam# [id number] Ordering Dr: Humberto Galvez MD STUDY: X-RAY [...] at 20:24 EST Tel , Service support [phone], CC: Paty Catalan DO; Humberto Galvez MD Founding Partner: Signed 13-Apr-2016 CTA Chest W/WO Contrast Result: Comments: See Note; NOTES: [facility] Imaging Services [address] [place] [address] Verdana 4d CTA Chest W/WO Contrast MR#: [id number] Acct: [id number] Name: SIMI NIELSEN Rep #: [id number] : 1970 F 46 From: Santos Burnett PCP: Paty Catalan DO Status: REG CLI Study: CTA Chest W/WO Contrast Date of Exam: 04/13/16 Exam# [id number] Ordering Dr: Robel Sanon DY: CTA CHEST [...] MD at 5:40 EDT , Service support [phone], CC: Paty Sanon Founding Partner: Signed 08-Apr-2016 Chest PA and Lateral Result: Comments: See Note; NOTES: [facility] Imaging Services [address] [place] [address] Verdana 4d Chest PA and Lateral MR#: [id number] Acct: [id number] Name: SIMI NIELSEN Rep #: [id number] : 1970 F 46 From: Flex Martinez MD PCP: Paty Catalan DO Status: REG CLI Study: Chest PA and Lateral Date of Exam: 04/08/16 Exam# [id number] Ordering Dr: Robel Sanon STUDY: X-RAY CHEST [...] FACR at 15:01 EDT , Service support [phone], CC: Paty Sanon Founding Partner: Signed 01-Apr-2016 Pulmonary Function Report Comp Result: Comments: See Note; NOTES: [facility] Pulmonary Services/Neurology [address] [place] [address] Pulmonary Function Test (Comp) MR#: [id number] Acct: [id number] Name: SIMI NIELSEN Rep #: [id number] : 1970 46 From: Louie Chaudhary MD Referring Dr: Robel Sanon Status: REG CLI Ordering Dr: Robel Sanon Date: 03/31/16 Location: [facility] Sex: F C DATE OF SERVICE: 03/31/2016 [...] Anahi RINALDI C: Robel Sanon M.D. T: NTS JOB: [id number] 04/01/16 0726 <Electronically signed by Louie Chaudhary MD> Date Louie Chaudhary MD CC: Louie Chaudhary MD; Paty Sanon Date Dictated: 03/31/16 1618 Date Transcribed: 03/31/161617 Founding Partner: Signed 30-Mar-2016 Emergency Department Summary Result: Comments: See Note; NOTES: [facility] Medical Records Department [address] [place] [address] Emergency Department Summary MR#: [id number] Acct: [id number] Name: HOWARD NIELSEN Rep #: [id number] : 1970 46 From: Gabriel Menard DO PCP: Paty Catalan DO Status: DEP ER DATE OF SERVICE: 03/21/2016 CHIEF COMPLAINT: [...] The patient was given a script for [address] [place] [address] for severe pain. She did not want crutches. Instructed to follow up with Dr. Catalan within next 5-7 days. DISPOSITIO N: Discharged home in stable condition. Gabriel Menard DO T: GRAHAM JOB: [id number] 03/30/16 1652 <Electronically signed by Gabriel Menard DO> Date ____ Gabriel Menard DO Cosigner Signature (If Indicated): Date CC: Paty Catalan DO Date Dictated: 03/21/16 1037 Date Transcribed: 03/21/16 1037 Founding Partner: Signed 21-Mar-2016 Venous Duplex Lower Extremity Result: Comments: See Note; NOTES: [facility] Cardiovascular Services [address] [place] [address] Venous Duplex US, Unilateral 03/21/16 1002 MR#: [id number] Acct: [id number] Name: SIMI NIELSEN Rep #: [id number] : 1970 46 From: Mamadou Bonds MD [...] Gabriel Menard Performed By: Behzad Guzman, RVT 03/21/161732 Date Mamadou Bonds MD CC: Paty Catalan DO; Gabriel Menard DO Date Dictated: 03/21/161001 Date Transcribed: 03/21/161732 Founding Partner: Signed 21-Mar-2016 Discharge Instruction Result: Comments: See Note; NOTES: [facility] Medical Records Department [address] [place] [address] Discharge Instruction 03/21/16 1034 MR#: [id number] Acct: [id number] Name: SIMI SUTTON Rep #: [id number] : 1970 46 From: Gabriel Menard DO PCP: Paty Catalan DO Status: REG ER ED Disposition - Plan for ED Patient: Chief Complaint: Lower Extremity Injury Instructions: ED Muscle Strain, Extremity Prescriptions: Hydrocodone Bitart/Apap 5-325 [Grant 5/325] 1 - 2 tablet PO Q4H PRN PRN #12 tablet PRN Reason: Pain Referrals: Paty Catalan DO [Primary Care Provider] - 5 -7 Days What to do if you have Problems For any increased pain, shortness of breath, bleeding, nausea or vomiting, chest pain, or any unexpected problems, contact your doctor. Call [facility] ([phone]) or report to the closest Emergency Room. Call 911 if necessary. 03/21/16 1035 <Electronically signed by Gabriel Menard DO> Date ___ Gabriel Menard DO Cosigner Signature (If Indicated): Date CC: Paty Catalan DO 18-Mar-2016 Echo, Complete w/ Contrast Result: Comments: See Note; NOTES: [facility] Cardiovascular Services [address] [place] [address] Echo Complete W/ Contrast 03/18/16 0853 MR#: [id number] Acct: [id number] Name: SIMI GUERRIER Rep #: [id number] : 1970 46 From: Frederick Butt MD Attending Dr: Robel Sanon Status: REG CLI Ordering Dr: Robel Sanon Date: 03/18/16 Location: [facility] Sex: F C Admitted: Reason Fo r [...] Referring Physician: Paty Catalan Performed By: Ella Davies, JEAN, RVT Electronically signed by: Frederick Butt MD on 2015 11:05 AM 03/18/16 1105 Date Frederick Butt MD CC: Paty Catalan DO; Robel Sanon Date Dictated: 03/18/16 0853 Date Transcribed: 03/18/16 110 Founding Partner: Signed 12-Mar-2016 Foot min 3 Views Result: Comments: See Note; NOTES: [facility] Imaging Services [address] [place] [address] Verdana 4d Foot min 3 Views MR#: [id number] Acct: [id number] Name: SIMI NIELSEN Rep #: [id number] : 1970 F 46 From: Jaxon Adame MD PCP: Paty Catalan DO Status: REG CLI Study: Foot min 3 Views Date of Exam: 03/12/16 Exam# [id number] Ordering Dr: Robel Sanon STUDY: X-R AY [...] Jaxon Adame MD at 13:59 EDT Tel [phone], Service support [phone], CC: Paty Catalan DO; Robel Sanon Founding Partner: Signed 27-Aug-2015 12 Lead Electrocardiogram Result: Comments: See Note; NOTES: [facility] Cardiovascular Services [address] [place] [address] 12 Lead EKG 08/25/152241 MR#: [id number] Acct: [id number] Name: SIMI CABAN ACE Rep #: [id number] : 1970 45 From: Mark Underwood MD [...] Int : 450 ms Normal sinus rh ythm Normal ECG Confirmed by CARLOS LEON, MARK ([id number]), commercial production editor NAYANA SAWANT ([id number]) on 08/27/2015 12:58:37 PM Referred By: NS Confirmed By:MARK UNDERWOOD MD 08/27/15 1258 Date Mark Underwood MD CC: Paty Catalan DO Date Dictated: 08/25/152241 Date Transcribed: 08/25/152241 Founding Partner: Signed 25-Aug-2015 Chest PA and Lateral Result: Comments: See Note; NOTES: [facility] Imaging Services [address] [place] [address] Verdana 4d Chest PA and Lateral MR#: [id number] Acct: [id number] Name: SIMI SUTTON Rep #: [id number] : 1970 F 45 From: Alycia Lara DO PCP: Paty Catalan DO Status: DEP Study: Chest PA and Lateral Date of Exam: 08/25/15 Exam# [id number] Ordering Dr: Richard Abreu MD STUDY: X-RAY [...] at 23:27 EST Tel , Service support [phone], RAD/Chest PA and Lateral IMPRESSION: Normal x-ray examination of the chest. Electronically Signed: Alycia Lara DO at 23:27 EST Tel , Service support [phone], CC: Paty Catalan DO; Richard Abreu MD Founding Partner: Signed 31-Dec-2014 12 Lead Electrocardiogram Result: Comments: See Note; NOTES: [facility] Cardiovascular Services [address] [place] [address] 12 Lead EKG 12/28/14 0049 MR#: [id number] Acct: [id number] Name: YUNIOR NIELSEN SA Rep #: [id number] : 1970 44 From: Mark Underwood MD Attending Dr: Status: DEP ER Ordering Dr: Humberto Jaimes MD Date: 12/28/14 Location: ED Sex: F C Admitted: Test Reason : MH Bloo d Pressure : / mmHG Vent. Rate : 084 BPM Atrial Rate : 084 BPM P-R Int : 152 ms QRS Dur : 088 ms QT Int : 412 ms P-R-T Axes : 058 -13 013 degrees QTc Int : 486 ms Normal sinus rhythm Non specific T wave abnormality Abnormal ECG Confirmed by MARK UNDERWOOD MD ([id number]), commercial production editor NAYANA SAWANT ([id number]) on 12/31/2014 1:38:48 PM Referred By: IAN Confirmed By:MARK UNDERWOOD MD 12/31/14 1338 Da te Mark Underwood MD CC: Paty Catalan DO Date Dictated: 12/28/1448 Date Transcribed: 12/28/1448 Founding Partner: Signed 28-Dec-2014 Emergency Department Summary Result: Comments: See Note; NOTES: [facility] Medical Records Department [address] [place] [address] Emergency Department Summary MR#: [id number] Acct: [id number] Name: SIMI STRAUSS Rep #: [id number] : 1970 44 From: Humberto Jaimes MD [...] Crisis. Humberto Jaimes MD T: NTS JOB: [id number] 12/28/14 0121 <Electronically signed by Humberto Jaimes MD> Date Humberto becker MD CC: Paty Catalan DO Date Dictated: 12/28/1454 Date Transcribed: 12/28/1454 Founding Partner: Signed 28-Dec-2014 Brain/Head without Contrast Result: Comments: See Note; NOTES: [facility] Imaging Services [address] [place] [address] CAT Scan Report MR#: [id number] Acct: [id number] Name: SIMI NIELSEN Rep #: [id number] : 1970 F 44 From: Rachid Donald MD PCP: Paty Catalan DO Status: REG ER Study: Brain/Head without Contrast Date of Exam: 12/28/14 Exam# [id number] Ordering Dr: Humberto Jaimes MD STUDY: CT [...] at 1:34 EDT Tel , Service support , CC: Paty Catalan DO; Humberto Jaimes MD Founding Partner: Signed 13-Nov-2014 Emergency Department Summary Result: Comments: See Note; NOTES: [facility] Medical Records Department [address] [place] [address] Emergency Department Summary MR#: [id number] Acct: [id number] Name: JOSH FRANCISCOSIMI Amanda Rep #: [id number] : 1970 44 From: Humberto Galvez MD PCP: Paty Catalan DO Status: [facility] DATE OF SERVICE: 11/10/2014 METHOD OF ARRIVAL: By EMS. CHIEF COMPLAINT: Hallucinati ons. PRIMARY CARE: Paty Catalan D.O. PSYCHIATRIST: Taina Painter M.D. MARTINEZ HISTORY: This is a 44-year-old female with history of schizophrenia, bipolar, prior DVT, CHF, comes in by joe w ith carrie. Family called jeo for this reason. This has apparently been going on for several days, getting worse. The patient denies being depressed or suicidal, but she recently just got ou t of [place] last week, for being suicidal. They did [...] C: [facility] Paty Owusu MD T: [facility] JOB: [id number] 11/13/14 0906 <Electronically signed by Humberto Galvez MD> Date Humberto Galvez MD CC: Paty Catalan DO; Taina Painter MD Date Dictated: 11/11/1431 Date Transcribed: 11/11/1431 Founding Partner: Signed 12-Nov-2014 Emergency Department Summary Result: Comments: See Note; NOTES: [facility] Medical Records Department [address] [place] [address] Emergency Department Summary MR#: [id number] Acct: [id number] Name: SIMI STRAUSS Rep #: [id number] : 1970 44 From: lEeazar Shipley MD PCP: Paty Catalan DO Status: DEP ER DATE OF SERVICE: 10/29/2014 CHIEF COMPLAINT: Suicidal and depressed. HISTORY OF P RESENT ILLNESS: A 44-year-old female who suffers from depression, was admitted to [facility] in June for depression and suicidal ideation. [...] structure several weeks ago, was admitted to [facility] at that time for injury she sustained. [...] CENTER Paty Catalan DO T: NTS JOB: [id number] 11/12/14 2342 <Electronically signed by Eleazar Shipley MD> Date Eleazar Shipley MD CC: Paty Catalan DO Date Dictated: 10/29/14100 Date Transcribed: 10/29/14100 Founding Partner: Signed 11-Nov-2014 Emergency Department Summary Result: Comments: See Note; NOTES: [facility] Medical Records Department [address] [place] [address] Emergency Department Summary MR#: [id number] Acct: [id number] Name: SIMI STRAUSS Rep #: [id number] : 1970 44 From: Humberto Drake MD PCP: Paty Catalan DO Status: REG ER DATE OF SERVICE: 11/10/2014 ADDENDUM: The patient was endorsed to me by the [facility] physician. The patient was evaluated by mental health, who agreed that the patient requires admission. I signed the patient's pink-slip and transfer forms, and the patient will be admitted for psyc hosis. Humberto Drake M.D. T: [facility] JOB: [id number] 11/11/14 0430 <Electronically signed by Humberto Drake MD> Date Humberto armando MD CC: Paty Catalan DO Date Dictated: 11/11/14150 Date Transcribed: 11/11/14150 Founding Partner: Signed 10-Nov-2014 Brain/Head without Contrast Result: Comments: See Note; NOTES: [facility] Imaging Services [address] [place] [address] CAT Scan Report MR#: [id number] Acct: [id number] Name: SIMI NIELSEN Rep #: [id number] : 1970 F 44 From: Dayne Ocasio MD PCP: Paty Catalan DO Status: REG ER Study: Brain/Head without Contrast Date of Exam: 11/10/14 Exam# [id number] Ordering Dr: Humberto Galvez MD CHRIS DY: CT BRAIN WITHOUT CONTRAST REASON FOR [...] at 23:45 E DT , Service support [phone], CC: Paty Catalan DO; Humberto Galvez MD Founding Partner: Signed 29-Oct-2014 Emergency Department Summary Result: Comments: See Note; NOTES: [facility] Medical Records Department [address] [place] [address] Emergency Department Summary MR#: [id number] Acct: [id number] Name: SIMI SUTTON Rep #: [id number] : 1970 44 From: Eleazar Shipley MD PCP: Paty Catalan DO Status: REG RCR DATE OF SERVICE: 10/29/2014 CHIEF COMPLAINT: Suicidal and depressed. HISTORY OF P RESENT ILLNESS: A 44-year-old female who suffers from depression, was admitted to [facility] in June for depression and suicidal ideation. [...] structure several weeks ago, was admitted to [facility] at that time for injury she sustained. [...] CENTER Paty Catalan DO T: NTS JOB: [id number] 10/29/14 0349 <Electronically signed by Eleazar Shipley MD> Date Eleazar Shipley MD CC: Paty Catalan DO Date Dictated: 10/29/14100 Date Transcribed: 10/29/14100 Founding Partner: Signed 23-Oct-2014 Emergency Department Summary Result: Comments: See Note; NOTES: [facility] Medical Records Department [address] [place], [place] [address] [address] Emergency Department Summary MR#: [id number] Acct: [id number] Name: SIMI SUTTON Rep #: [id number] : 1970 44 From: Osiris Rueda PCP: Paty Catalan DO Status: DEP ER DATE OF SERVICE: 10/10/2014 HISTORY OF [...] center. I spoke with Dr. Sawant at [facility] at the patient's request for transfer there. He did request that I discuss i f the patient may go home with the ER. This was discussed with the patient and her family at the bedside. DISPOSITION: Transfer. DIAGNOSES: 1. Head injury. 2. L2, L3 transverse process fractures . MD Anahi Patel C: Paty Alayna LOCK T: [facility] JOB: [id number] 10/23/14 2337 <Electronically signed by Osiris Rueda > Date Osiris Rueda CC: Paty Catalan DO Date Dictated: 10/10/14425 Date Transcribed: 10/10/14425 Founding Partner: Signed 10-Oct-2014 Ribs Uni Min 3V w/PA Chest Result: Comments: See Note; NOTES: [facility] Imaging Services [address] [place] [address] Radiology Report MR#: [id number] Acct: [id number] Name: SIMI NIELSEN Rep #: [id number] : 1970 F 44 From: Pedro Luis Palafox PCP: Paty Catalan DO Status: DEP ER Study: Ribs Uni Min 3V w/PA Chest Date of Exam: 10/10/14 Exam# [id number] Ordering Dr: Osiris Rueda STUDY: X-RAY - [...] MD at 7:43 EDT , Service support [phone], CC: Osiris Rueda; Paty Catalan DO Founding Partner: Signed 10-Oct-2014 Abdomen/Pelvis W IV Cont ONLY Result: Comments: See Note; NOTES: [facility] Imaging Services [address] [place] [address] CAT Scan Report MR#: [id number] Acct: [id number] Name: SIMI NIELSEN Rep #: [id number] : 1970 F 44 From: Pedro Luis Palafox PCP: Paty Catalan DO Status: REG ER Study: Abdomen/Pelvis W IV Cont ONLY Date of Exam: 10/10/14 Exam# [id number] Ordering Dr: Osiris Rueda Y: CT ABDOMEN [...] MD at 3:30 EDT , Service support [phone], CC: Osiris Catalan DO Founding Partner: Signed 10-Oct-2014 Brain/Head without Contrast Result: Comments: See Note; NOTES: [facility] Imaging Services [address] [place] [address] CAT Scan Report MR#: [id number] Acct: [id number] Name: SIMI NIELSEN Rep #: [id number] : 1970 F 44 From: Pedro Luis Palafox PCP: Paty Catalan DO Status: REG ER Study: Brain/Head without Contrast Date of Exam: 10/10/14 Exam# [id number] Ordering Dr: Osiris Rueda STUDY: CT BRAIN [...] at 3:17 EDT Tel , Service support [phone], CC: Osiris Rueda; Paty Catalan DO Founding Partner: Signed 07-Oct-2014 12 Lead Electrocardiogram Result: Comments: See Note; NOTES: [facility] Cardiovascular Services [address] [place] [address] 12 Lead EKG 10/02/14 1925 MR#: [id number] Acct: [id number] Name: HOWARD NIELSEN Amanda Rep #: [id number] : 1970 44 From: Frederick Butt MD [...] Int : 430 ms Normal sinus rhyt hm Normal ECG Confirmed by FREDERICK BUTT ([id number]), commercial production editor NAYANA SAWANT ([id number]) on 10/04/2014 10: 16:38 AM Referred By: CLEMENTE Confirmed By:FREDERICK BUTT 10/04/14 1016 Date Frederick Butt MD CC: Paty Catalan DO Date Dictated: 10/02/141924 Date Transcribed: 10/02/141924 Founding Partner: Signed 05-Oct-2014 Emergency Department Summary Result: Comments: See Note; NOTES: [facility] Medical Records Department [address] [facility] [place] [address] Emergency Department Summary MR#: [id number] Acct: [id number] Name: SIMI SUTTON Rep #: [id number] : 1970 44 From: Gabriel Menard DO [...] continue with her Eliquis. Her pain sounds sindy y atypical. It is sharp, stabbing, and very fleeting. It does not seem to be exertional. The patient is instructed to follow up with her primary care physician in 3-5 days. DISPOSITION: Discharge d to home in stable condition. Gabriel Menard DO T: [facility] JOB: [id number] 10/05/14 1039 <Electronically signed by Gabriel Menard DO> Date __ Gabriel Menard DO CC: Paty Catalan DO Date Dictated: 10/02/142118 Date Transcribed: 10/02/142118 Founding Partner: Signed 02-Oct-2014 Discharge Instruction Result: Comments: See Note; NOTES: [facility] Medical Records Department [address] [place] [address] Discharge Instruction 10/02/142114 MR#: [id number] Acct: [id number] Name: SIMI NIELSEN Rep #: [id number] : 1970 44 From: Gabriel Menard DO [...] closest Emergency Room. Call 911 if necessary. 10/02/142114 < Electronically signed by Gabriel Menard DO> Date Gabriel Menard DO Cosigner Signature (If Indicated): Date CC: Paty Catalan DO 02-Oct-2014 CTA Chest W/WO Contrast Result: Comments: See Note; NOTES: [facility] Imaging Services [address] [place] [address] CAT Scan Report MR#: [id number] Acct: [id number] Name: SIMI NIELSEN Rep #: [id number] : 1970 F 44 From: Stuart Wagner DO PCP: Paty Catalan DO Status: REG ER Study: CTA Chest W/WO Contrast Date of Exam: 10/02/14 Exam# [id number] Ordering Dr: Gabriel Menard DO STUDY: CTA [...] Stuart Wagner DO at 20:50 EDT Tel [phone], Service support [phone], CC: Paty Catalan DO; Gabriel Menard DO Founding Partner: Signed 23-Mar-2014 EKG (46963) Comments: nsr no acute chg Result: [MEASUREMENTS ANALYSIS] Date of Test: 03/23/2014 14:44:22; Heart Rate: 70; WY Interval: 146; QRS: 96; QT Interval: 414; Corrected QT Interval (QTc): 431; P Wave [place]: 41; QRS Wave [place]: -1; T Wave [place]: 22; Blood Pressure: 128/64 [ECG DIAGNOSTIC STATEMENTS] Date of Test: 03/23/2014 14:44:22; Summary: Sinus Rhythm WITHIN NORMAL LIMITS 06-Nov-2013 Emergency Department Summary Result: Comments: See Note; NOTES: [facility] Medical Records Department [address] [place] [address] Emergency Department Summary MR#: [id number] Acct: [id number] Name: SATURNINO KayeSIMI Amanda Rep #: [id number] : 1970 43 From: Marshall Ricardo MD PCP: Paty Catalan DO Status: DEP ER DATE OF SERVICE: 10/22/2013 CHIEF COMPLAINT: [...] update. Marshall Ricardo MD T: NTS JOB: [id number] 11/06/13 0817 <Electronically signed by Marshall Ricardo MD> Date Marshall Ricardo MD CC: Paty Catalan DO Date Dictated: 10/22/13 1134 Date Transcribed: 10/22/13 113 Founding Partner: Signed 22-Oct-2013 Discharge Instruction Result: Comments: See Note; NOTES: [facility] Medical Records Department [address] [place] [address] Discharge Instruction 10/22/13 1136 MR#: [id number] Acct: [id number] Name: SIMI NIELSEN Rep #: [id number] : 1970 43 From: Marshall Ricardo MD [...] No CXR Result: Comments: See Note; NOTES: [facility] Imaging Services [address] [place] [address] Radiology Report MR#: [id number] Acct: [id number] Name: SIMI NIELSEN Rep #: [id number] : 1970 F 43 From: Jaxon Adame MD PCP: Paty Catalan DO Status: REG CLI Study: Ribs Unil 2V No CXR Date of Exam: 09/11/13 Exam# [id number] Ordering Dr: Paty Catalan TUDY: X-RAY - UNILATERAL RIBS ( LEFT ) REASON FOR EXAM: Female, 43 years old. Left rib pain following a fall. TECHNIQUE: 3 views of the ribs. COMPARISON: None. FINDINGS: Normal visualized ribs without a demonstrated fracture. The visualized lung is clear and expanded. IMPRESSION: Normal x-ray examination of the ribs . Electronically Signed: Jaxon Adame M.D. at 14:42 EDT , Service support [phone], CC: Paty Catalan DO Founding Partner: Signed Immunization Name Dates Details Influenza (3 years and up) on: 13-Apr-2007 Comments: lot # [id number] 10/03 LDLT patient tolerated well Influenza (3 [...] smoker Vital Signs Date Test Result Details :31 Temperature 98.2 f Comments: Method: Temporal Pulse 74 /min Comments: Pattern: Regular Respiration Rate 16 /min Comments: Pattern: Unlabored O2 SAT 98 % Comments: Room air BP Systolic 124 mm[Hg] Comments: Patient Position: Sitting; Cuff Location: Left Arm; Cuff Size: Standard BP Diastolic 74 mm[Hg] Comments: Patient Position: Sitting; Cuff Location: Left Arm; Cuff Size: Standard Weight 236.375 lb Height 64 in Body Mass Index Calculated 40.57 kg/m2 Body Surface Area Calculated 2.1 m2 :37 Temperature 97.5 f Pulse 83 /min Comments: [...] kg/m2 Body Surface Area Calculated 2.08 m2 :04 Temperature 97.4 f Comments: Method: Temporal Pulse [...] kg/m2 Body Surface Area Calculated 2.12 m2 31-Uty-683915:24 Temperature 97.8 f Pulse 84 /min Comments: [...] kg/m2 Body Surface Area Calculated 2.12 m2 13-Zhu-331678:23 Pulse 79 /min Comments: Pattern: Regular Respiration [...] kg/m2 Body Surface Area Calculated 2.12 m2 21-Wvk-056969:41 Pulse 70 /min Comments: Pattern: Regular Respiration [...] kg/m2 Body Surface Area Calculated 2.15 m2 60-Cex-08291:09 Pulse 79 /min Comments: Pattern: Regular Respiration [...] kg/m2 Body Surface Area Calculated 2.2 m2 47-Zqt-906992:28 Temperature 97.6 f Pulse 88 /min Comments: [...] kg/m2 Body Surface Area Calculated 2.2 m2 :18 Pulse 75 /min Comments: Pattern: Regular Respiration [...] kg/m2 Body Surface Area Calculated 2.21 m2 :00 Pulse 98 /min Comments: Pattern: Regular Respiration [...] Order Date: 03/15/18How was Urine Obtained? [facility] [address] [place], [address] MUCUS, URINE 0 SEEN {/hpf} (Normal) BACTERIA [...] Urine Drug Screen (VISTA) Comments: Order Date: 03/15/18W[facility] [address] [place] [place], [address] THC NEGATIVE (Normal) PCP NEGATIVE [...] TESTING MUST BE ORDERED SEPARATELY. USE TESTMNEMONIC: [facility] 71-Ejt-164557:51 Venous Blood Gas Comments: [facility] LaboratoryPoint of [address] [place] [address] ISTAT 26 [...] OTHER (Normal) BLD GAS TYPE LIZ (Normal) 15-Bth-380489:39 Alcohol, Blood (Medical)-Serum Comments: [facility] [address] [facility] [facility] [place], [place], [address] SERUM ETOH < 3.0 mg/dL (Normal) Comments: The serum:whole blood ethanol ratio is approximately 1.14and varies slightly with hematocrit.Medical Alcohol reference interval and critical value innon-tolerant individuals; 50 - 100 Impairment 100 Intoxication 100 - 250 Severe Poisoning 250 - 400 Deep/possible fatal coma 23-Cse-540223:39 CBC W/Diff, Automated Comments: [facility] [address] [place], [place], [address] Absolute Lymph 3.19 {X10_3/ul} (Normal) Range: 0.83-4.51 [...] 4.2-5.4 WBC 8.4 K/mm3 (Normal) Range: 4.4-11.0 57-Vub-109764:39 Comprehensive Metabolic Profil Comments: [facility] [address] [place], [place], [address] GAP 12 (Normal) Range: 5-15 CO2 24.0 [...] Comments: Please note revised GLUCOSE reference range pzrhuhfvp33/02/2018. 19-Onj-768166:39 Lactic Acid Comments: Yes/No query for Sepsis Lactate Rule [facility] [address] [place], [place], [address] LACTIC ACID 2.4 mmol/L (Abnormal) Range: 0.4-2.0 Comments: Critical Result(s) Called at: 20:33:03 03/15/2018 by: Jose VIVAR :39 Partial Thromboplast Time Comments: [facility] [address] [place], [address] PTT 33.9 s (Normal) Range: 24.1-36.2 :39 Prothrombin Time w/INR Comments: [place] [id number] [place], [place], [address] INR 1.1 (Normal) PROTIME 13.9 s (Normal) Range: 11.7-14.9 :39 Troponin-I Comments: [facility] [address] [place] [place], [address] TROPONIN-I < 0.015 ng/mL (Normal) Comments: TROPONIN-I EXPECTED VALUES <0.045 Negative 0.045 - 0.590 Consistent with Cardiac Damage > OR = 0.600 Critical Value Not every elevated troponin is indicative of NC. T hesevalues should be used with clinical judgement in examiningthe patient's clinical picture for diagnosis. To establisha diagnosis of NC versus myocardial injury, there must be ademonstrated rise and/ or fall in the troponin values, inaddition to ischemic symptoms, EKG changes, new regionalwall motion abnormality, and/or angiographical evidence. PLEASE NOTE: REFERENCE RANGES EDITED 11/08/1715-Mar-201825-Pqt-957697:24 Bedside Glucose Comments: [facility] LaboratoryPoint of [address] [place] [address] BEDSIDE GLU 92 mg/dL (Normal) Range: 70-110 Comments: MANAGEMENT OF PATIENT CARE PER NURSING PROTOCOL 28-Feb-20183:57 Bedside Glucose Comments: [facility] LaboratoryPoint of [address] [place] [address] BEDSIDE GLU 115 mg/dL (Abnormal) Range: 70-110 Comments: MANAGEMENT OF PATIENT CARE PER NURSING PROTOCOL 28-Feb-20183:15 Urinalysis, Complete Comments: How was Urine Obtained? [facility] [address] [place], [address] HYALINE CAST 5-10 SEEN {/lpf} (Normal) [...] (Normal) :15 Urine Drug Screen (VISTA) Comments: [facility] [address] [place], [address] THC NEGATIVE (Normal) PCP NEGATIVE [...] TESTING MUST BE ORDERED SEPARATELY. USE TESTMNEMONIC: [facility] :00 Partial Thromboplast Time Comments: [facility] [address] [place], [place], [address] PTT 28.4 s (Normal) Range: 24.1-36.2 :00 Prothrombin Time w/INR Comments: [address] [place], [place], [address] INR 1.1 (Normal) PROTIME 14.3 s (Normal) Range: 11.7-14.9 :55 Alcohol, Blood (Medical)-Serum Comments: [place] [address] [place], [address] SERUM ETOH < 3.0 mg/dL (Normal) Comments: The serum:whole blood ethanol ratio is approximately 1.14and varies slightly with hematocrit.Medical Alcohol reference interval and critical value innon-tolerant individuals; 50 - 100 Impairment 100 Intoxication 100 - 250 Severe Poisoning 250 - 400 Deep/possible fatal coma :55 CBC W/Diff, Automated Comments: [address] [place], [place], [address] Absolute Lymph 1.41 {X10_3/ul} (Normal) Range: 0.83-4.51 [...] Range: 4.4-11.0 28-Feb-20181:55 Comprehensive Metabolic Profil Comments: [facility] [address] [facility]. [place], [place], [address] GAP 10 (Normal) Range: 5-15 CO2 26.0 [...] A.D.A. criteria.Please note revised GLUCOSE reference range lxxxxoyei41/02/2018. 9-Gzo-861448:45 Alcohol, Blood (Medical)-Serum Comments: [facility] [address] [facility]. [place], [place], [address] SERUM ETOH 5.0 mg/dL (Normal) Comments: The serum:whole blood ethanol ratio is approximately 1.14and varies slightly with hematocrit.Medical Alcohol reference interval and critical value innon-tolerant individuals; 50 - 100 Impairment 100 Intoxication 100 - 250 Severe Poisoning 250 - 400 Deep/possible fatal coma 1-Zlm-484148:45 Basic Metabolic Profile (BMP) Comments: [facility] [address] [facility]. [place], [place], [address] GAP 10 (Normal) Range: 5-15 CO2 26.0 [...] A.D.A. criteria.Please note revised GLUCOSE reference range ckcveqava14/02/2018. 6-Rmn-638633:45 CBC W/Diff, Automated Comments: [facility] [address] [place], [address] Absolute Lymph 3.05 {X10_3/ul} (Normal) Range: 0.83-4.51 [...] 4.2-5.4 WBC 9.6 K/mm3 (Normal) Range: 4.4-11.0 :45 ,Serum,hCG Quali. Comments: [facility] [address] [place], [address] HCGSQUAL NEGATIVE {Negative} (Normal) Range: 0-9 Nonpreg HCG Qual triggr 2 m[iU]/mL (Normal) 6-Qbn-694280:40 Urinalysis, Complete Comments: Order Date: 02/26/18How was Urine Obtained? [facility] [address] [place], [address] MUCUS, URINE 1+ {/hpf} (Normal) [...] CLARITY Sl. Cloudy (Normal) COLOR Yellow (Normal) 4-Okq-632294:40 Urine Drug Screen (VISTA) Comments: [facility] [address] [place], [address] THC NEGATIVE (Normal) PCP NEGATIVE [...] TESTING MUST BE ORDERED SEPARATELY. USE TESTMNEMONIC: [facility] 86-Uwr-679082:50 Urinalysis, Complete Comments: Order Date: 02/23/18Has pt arrived? YHow was Urine Obtained? [facility] [address] [facility] [address] [place], [place], [address] MUCUS, URINE 2+ {/hpf} (Normal) BACTERIA 2+ [...] (Normal) CLARITY Clear (Normal) COLOR Yellow (Normal) 31-Zbp-385364:50 Urine Drug Screen (VISTA) Comments: [facility] [address] [place], [place], [address] THC NEGATIVE (Normal) PCP NEGATIVE (Normal) OPIATES [...] TESTING MUST BE ORDERED SEPARATELY. USE TESTMNEMONIC: [facility] 24-Abj-446071:15 Alcohol, Blood (Medical)-Serum Comments: [facility] [address] [place], [place], [address] SERUM ETOH < 3.0 mg/dL (Normal) Comments: The serum:whole blood ethanol ratio is approximately 1.14and varies slightly with hematocrit.Medical Alcohol reference interval and critical value innon-tolerant individuals; 50 - 100 Impairment 100 Intoxication 100 - 250 Severe Poisoning 250 - 400 Deep/possible fatal coma 00-Kqz-461972:15 CBC W/Diff, Automated Comments: [facility] [address] [place], [place], [address] Absolute Lymph 2.67 {X10_3/ul} (Normal) Range: 0.83-4.51 [...] 4.2-5.4 WBC 10.7 K/mm3 (Normal) Range: 4.4-11.0 18-Iyc-681705:15 Comprehensive Metabolic Profil Comments: [facility] [address] [place], [place], [address] GAP 9 (Normal) Range: 5-15 CO2 27.0 [...] Comments: Please note revised GLUCOSE reference range /07/2017. 93-Vwt-118554:15 ,Serum,hCG Quali. Comments: [facility] [address] [place], [address] HCGSQUAL NEGATIVE {Negative} (Normal) Range: 0-9 Nonpreg HCG Qual triggr 2 m[iU]/mL (Normal) 90-Ecc-71275:07 Bedside Glucose Comments: [facility] LaboratoryPoint of [address]ly[address] [address] BEDSIDE GLU 107 mg/dL (Normal) Range: 70-110 Comments: MANAGEMENT OF PATIENT CARE PER NURSING PROTOCOL 88-Mvy-59137:00 COLON BIOPSY (CHOOSE See Note (Normal) Comments: [facility] [address] [place], [address] SITE) Comments: Patient: SIMI NIELSEN : 1970 (47/F) Acct Num: [id number] Phys: Kajal LEON,[place] Unit Num: [id number] Loc: EN Specimen: [id number] Received: 02/14/18 - 1323 Spec Type: COL [...] one cassette. / DEBORAH:torres 02/14/18 TC:4 CPT: 77373 x2 HEADER OPERATION: Colonoscopy PRE-OP DIAGNOSIS: Diarrhea TISSUE S UBMITTED: A Terminal ileum biopsy, B Random colon biopsies MICROSCOPIC DESCRIPTION Slides are reviewed. MICROSCOPIC DIAGNOSIS A. Terminal ileum, biopsy: Fragments of small inte stinal mucosa, no pathologic diagnosis. B. Colon, random biopsy: Fragments of colonic mucosa, no pathologic diagnosis. DEBORAH:torres 02/15/18 Signed __ Connor Jeremie 02/15/18 <signature on file> :24 Bedside Glucose Comments: [facility] LaboratoryPoint of [address] [place], [place] [address] BEDSIDE GLU 108 mg/dL (Normal) Range: 70-110 Comments: MANAGEMENT OF PATIENT CARE PER NURSING PROTOCOL 68-Duc-995510:27 Urinalysis, Office (01438) UA - LEUKOCYTE ESTERASE Negative (Normal) UA - NITRITE Negative (Normal) URINE UROBILINGN DENISE TIMED Normal mg/dL (Normal) UA - PROTEIN Negative mg/dL (Normal) UA - PH 6.0 (Normal) UA - BLOOD Negative (Normal) UA - SPECIFIC GRAVITY 1.020 (Normal) UA - KETONES Negative mg/dL (Normal) UA - BILIRUBIN Negative (Normal) UA - GLUCOSE Negative (Normal) 32-Xxh-267091:55 Blood Glucose , Office (50838) Blood Glucose , Office 93 (Normal) 48-Hwq-865010:55 HgA1C , Office (69853) HgA1C , Office 5.6 % (Normal) Range: 4.6 - 7.1 32-Vjf-485087:48 HgA1C , Office (57225) HgA1C , Office 5.2 % (Normal) Range: 4.6 - 7.1 12-Lwd-978422:03 VITAMIN B-12 (CYANOCOBALAMIN) Comments: PATIENT NOT FASTINGPERFORMED BY: [facility] [address] [facility] [id number] (71418) Vitamin B12 399 pg/mL (Normal) Range: 232-1245 04-Hmv-144520:03 CBC W/AUTO DIFF WBC (78829) Comments: PATIENT NOT FASTINGPERFORMED BY: [facility] [address] [facility] [id number] Immature Grans (Abs) 0.0 {x10E3/uL} (Normal) Range: [...] 3.77-5.28 WBC 6.9 {x10E3/uL} (Normal) Range: 3.4-10.8 12-Qih-510208:03 METABOLIC PANEL, COMPREHENSIVE Comments: PATIENT NOT FASTINGPERFORMED BY: [facility] [id number] (35129) ALT (SGPT) 28 [iU]/L (Normal) Range: 0-32 [...] Glucose, Serum 97 mg/dL (Normal) Range: 65-99 97-Hug-101940:03 TSH (08083) Comments: PATIENT NOT FASTINGPERFORMED BY: [facility] [id number] TSH 2.680 {uIU/mL} (Normal) Range: 0.450-4.500 41-Uaj-555283:13 PT (Prothrobim Time) (39521) Comments: PATIENT NOT FASTINGPERFORMED BY: [facility] [address]sfxpp[address] [facility] [id number] Prothrombin Time 21.4 {sec} (Abnormal) Range: 9.1-12.0 INR 2.1 (Abnormal) Range: 0.8-1.2 Comments: Reference interval is for non-anticoagulated patients. . Suggested INR therapeutic range for Vitamin K anta gonist therapy: Standard Dose (moderate intensity therapeutic range): 2.0 - 3.0 Higher intensity therapeutic range 2.5 - 3.5 90-Mrj-256205:31 URINE SHERITA CULTURE-DENISE COL Comments: PERFORMED BY: [facility] [employer] 24/[address] [facility] [id number] Information: SRC:UC COUNT (42356) Result 1 MUG (Normal) Comments: Mixed urogenital flora10,000-25,000 colony forming units per mL Urine Final report (Normal) Culture,Comprehensive 35-Zrb-993706:33 Urinalysis, Office (58205) UA - LEUKOCYTE ESTERASE Negative (Normal) UA - NITRITE Negative (Normal) URINE UROBILINGN DENISE TIMED Normal mg/dL (Normal) UA - PROTEIN Negative mg/dL (Normal) UA - PH 5.0 (Normal) UA - BLOOD Negative (Normal) UA - SPECIFIC GRAVITY 1.010 (Normal) UA - KETONES Negative mg/dL (Normal) UA - BILIRUBIN Negative (Normal) UA - GLUCOSE Negative (Normal) 85-Klc-992916:32 HEPATIC FUNCTION PANEL Comments: PATIENT NOT FASTINGPERFORMED BY: [facility] [id number] (88829) ALT (SGPT) 78 [iU]/L (Abnormal) Range: 0-32 AST (SGOT) 38 [iU]/L (Normal) Range: 0-40 Alkaline Phosphatase, S 77 [iU]/L (Normal) Range: 39-117 Bilirubin, Direct 0.18 mg/dL (Normal) Range: 0.00-0.40 Bilirubin, Total 0.6 mg/dL (Normal) Range: 0.0-1.2 Albumin, Serum 4.0 g/dL (Normal) Range: 3.5-5.5 Protein, Total, Serum 6.8 g/dL (Normal) Range: 6.0-8.5 :32 HEPATITIS PANEL (57406) Comments: PATIENT NOT FASTINGPERFORMED BY: [facility] [id number] Hep C Virus Ab <0.1 {s/co_ratio} (Normal) Range: 0.0-0.9 Comments: Negative: < 0.8 Indeterminate: 0.8 - 0.9 Positive: > 0.9 . The CDC recommends that a positive HCV antibody result be followed up with a HCV Nucleic Acid Amplification test (420487). Hep B Core Ab, IgM Negative (Normal) HBsAg Screen Negative (Normal) Hep A Ab, IgM Negative (Normal) 28-Bkd-611236:32 ANTIMITOCHONDRIAL ANTIBODY Comments: PATIENT NOT FASTINGPERFORMED BY: [facility] [id number] (22851) Mitochondrial (M2) Antibody <20.0 {Units} (Normal) Range: 0.0-20.0 Comments: Negative 0.0 - 20.0 Equivocal 20.1 - 24.9 Positive >24.9 . Mitochondrial (M2) Antibodies are found in 90-96% of patients with primary biliary cirrhosis. :32 TRANSFERRIN (43440) Comments: PATIENT NOT FASTINGPERFORMED BY: [facility]rp Mzypxu0950 [facility] [id number] Transferrin 265 mg/dL (Normal) Range: 200-370 :32 GGT (GAMMA GLUTAMYLTRANSFERASE) Comments: PATIENT NOT FASTINGPERFORMED BY: [employer]70 [facility] [id number] (49471) GGT 57 [iU]/L (Normal) Range: 0-60 :32 FERRITIN (38204) Comments: PATIENT NOT FASTINGPERFORMED BY: Aur[facility]rp Lizazn6574 [facility] [id number] Ferritin, Serum 317 ng/mL (Abnormal) Range: 15-150 :32 CMV IGM ANTBDY (40682) Comments: PATIENT NOT FASTINGPERFORMED BY: [facility]rp Vbardt8338 [facility] [id number] Cytomegalovirus (CMV) Ab, IgM <30.0 AU/mL (Normal) Range: 0.0-29.9 Comments: Negative <30.0 Equivocal 30.0 - 34.9 Positive >34.9 A positive result is generally indicative of acute infection, reactivation or persistent IgM production. :32 CERULOPLASMIN (78704) Comments: PATIENT NOT FASTINGPERFORMED BY: Aur[facility]rp Vzoyle[address] [facility] [id number] Ceruloplasmin 29.9 mg/dL (Normal) Range: 19.0-39.0 :32 ASM (ANTI SMOOTH MUSCLE Comments: PATIENT NOT FASTINGPERFORMED BY: Aur[facility]rp Lswwhy4[address] [facility] [id number] ANTIBODY) (08370) Actin (Smooth Muscle) Antibody 7 {Units} (Normal) Range: 0-19 Comments: Negative 0 - 19 Weak positive 20 - 30 Moderate to strong positive >30 . Actin Antibodies are found in 52-85% of patients with autoimmune hepatitis or chronic active hepatitis and in 22% of patients with primary biliary cirrhosis. :32 ANTI-LIVER/KIDNEY MICROSOMAL Comments: PATIENT NOT FASTINGPERFORMED BY: Yadio Gxrabu4260 [facility] [id number] ANTIBODY (47576) Liver-Kidney Microsomal Ab 1.5 {Units} (Normal) Range: 0.0-20.0 Comments: Negative 0.0 - 20.0 Equivocal 20.1 - 24.9 Positive >24.9 . LKM type 1 antibodies are detected in patients with autoimmune hepatitis type 2 and in up to 8% of patients with chronic HCV infection. :32 REYNALDO (ANTINUCLEAR ANTIBODY) Comments: PATIENT NOT FASTINGPERFORMED BY: Yadio Ursuvr8835 [facility] [id number] (35363) REYNALDO Direct Negative (Normal) :41 TSH (08911) Comments: PATIENT WAS FASTINGPERFORMED BY: Yadio Qnhcmd4739 [facility] [id number] TSH 2.840 {uIU/mL} (Normal) Range: 0.450-4.500 :41 METABOLIC PANEL, COMPREHENSIVE Comments: PATIENT WAS FASTINGPERFORMED BY: [facility]ioPenn Medicine Princeton Medical CenterMliysn1725 [facility] [id number] (74350) ALT (SGPT) 94 [iU]/L (Abnormal) Range: 0-32 [...] Glucose, Serum 94 mg/dL (Normal) Range: 65-99 11-Jxy-606704:41 LIPID PANEL (51372) Comments: PATIENT WAS FASTINGPERFORMED BY: [place] [id number] LDL/HDL Ratio 2.3 {ratio_units} (Normal) Range: 0.0-3.2 Comments: LDL/HDL Ratio Men Women 1/2 Avg.Risk 1.0 1.5 Av g.Risk 3.6 3.2 2X Avg.Risk 6.2 5.0 3X Avg.Risk 8.0 6.1 LDL Cholesterol Calc 79 mg/dL (Normal) Range: 0-99 VLDL Cholesterol Koby 31 mg/dL (Normal) Range: 5-40 HDL Cholesterol 35 mg/dL (Abnormal) Triglycerides 155 mg/dL (Abnormal) Range: 0-149 Cholesterol, Total 145 mg/dL (Normal) Range: 100-199 64-Cib-625689:41 CBC W/AUTO DIFF WBC (13182) Comments: PATIENT WAS FASTINGPERFORMED BY: [place] [id number] Immature Grans (Abs) 0.0 {x10E3/uL} (Normal) Range: [...] (Normal) Range: 3.4-10.8 :08 HgA1C , Office (10866) HgA1C , Office 5.4 % (Normal) Range: 4.6 - 7.1 :08 Blood Glucose , Office (85504) Blood Glucose , Office 128 (Normal) :21 Rapid Flu (11962 x 2) Influenza A Ag negative (Normal) :07 URINE SHERITA CULTURE-DENISE COL Comments: PERFORMED BY: [facility] [facility] [id number] Information: SRC:UR COUNT (24339) Antimicrobial MIHEAD (Normal) Comments: S = Susceptible; [...] primarily for treating urinary tract infections. (CLSI, [id number]-[id number],2009) Result 1 Escherichia coli Comments: 10,000-25,000 colony forming units per mL (Abnormal) Urine Final report Culture,Comprehensive (Abnormal) 7-Tbp-925598:35 Urinalysis, Office (36815) UA - LEUKOCYTE ESTERASE Trace (Normal) UA - NITRITE Negative (Normal) URINE UROBILINGN DENISE TIMED 2 mg/dL (Normal) UA - PROTEIN Negative mg/dL (Normal) UA - PH 6 (Abnormal) UA - BLOOD Hemolyzed Trace (Normal) UA - SPECIFIC GRAVITY 1.015 (Normal) UA - KETONES Negative mg/dL (Normal) UA - BILIRUBIN Negative (Normal) UA - GLUCOSE Negative (Normal) 38-Epe-162072:47 URINE SHERITA CULTURE (DENISE COL Comments: PERFORMED BY: [facility]Fre[facility] SystemSbgkta6715 [facility] [id number] COUNT) (01604) Antimicrobial MIHEAD (Normal) Comments: S = Susceptible; [...] Colonies/mL (Abnormal) Urine Final report Culture,Comprehensive (Abnormal) 42-Lir-319171:47 URINALYSIS (02609) Comments: PERFORMED BY: PERRY [facility] Ryffoo09[address] [place] [id number] Information: SRC:UR Microscopic Examination MICNIP (Normal) Comments: Microscopic not indicated and not performed. Nitrite, Urine Negative (Normal) Urobilinogen,Semi-Qn 0.2 mg/dL (Normal) Range: 0.2-1.0 Bilirubin Negative (Normal) Occult Blood Negative (Normal) Ketones Negative (Normal) Glucose Negative (Normal) Protein Negative (Normal) WBC Esterase Negative (Normal) Appearance Clear (Normal) Urine-Color Yellow (Normal) pH 6.0 (Normal) Range: 5.0-7.5 Specific [place] [facility] 1.012 (Normal) Range: 1.005-1.030 95-Cko-135638:35 Basic Metabolic Profile (BMP) Comments: 'TROP' Serial specimen #1, #2, #3, or #4: [address] [place] [address] Avejzqyvkr4853 [place], [place], [id number] GAP 9 (Normal) Range: 5-15 CO2 31.0 [...] A.D.A. criteria. :35 CBC W/Diff, Automated Comments: [facility] Bytoamshxw4[address] Stahl [place], [place], [phone] Absolute Lymph 2.00 {X10_3/ul} (Normal) Range: 0.83-4.51 [...] 4.2-5.4 WBC 7.9 K/mm3 (Normal) Range: 4.4-11.0 :35 Troponin-I Comments: 'TROP' Serial specimen #1, #2, #3, or #4: [facility] Dzxjgtzivv25[address]. [place], [place], [address] TROPONIN-I < 0.02 ng/mL (Normal) Comments: TROPONIN-I EXPECTED VALUES <0.05 NEGATIVE 0.06 - 0.59 AT RISK OF NC > OR = 0.60 SUGGEST NC 08-Mkn-632922:45 Comprehensive Metabolic Profil Comments: Comments: PT.TAKING SULFAMETHOXAZOLE, SAID THE LABEL COULD AFFECT RESULTSWDayton VA Medical Center Rbdfjanbgr9905 Radha Phamoster [place], [id number] GAP 9 (Normal) Range: 5-15 CO2 30.0 [...] 7-18 GLU 104 mg/dL (Normal) Range: 70-110 2-Ccn-676898:42 HGB A1C (10533) Comments: PATIENT NOT FASTINGPERFORMED BY: LabCo19 Lopez StreetDublin [place] [id number] Hemoglobin A1c 6.8 % (Abnormal) Range: 4.8-5.6 Comments: . Pre-diabetes: 5.7 - 6.4 Diabetes: >6.4 Glycemic control for adults with diabetes: <7.0 :42 SED RATE ERYTHROCYTE (20275) Comments: PATIENT NOT FASTINGPERFORMED BY: [facility]Asc[facility] [facility] [id number] Sedimentation Rate-Westergren 15 mm/h (Normal) Range: 0-32 :42 C-REACTIVE PROTEIN (93605) Comments: PATIENT NOT FASTINGPERFORMED BY: LabAsc[facility] [facility] [id number] C-Reactive Protein, Quant 15.5 mg/L (Abnormal) Range: 0.0-4.9 :42 TSH (07841) Comments: PATIENT NOT FASTINGPERFORMED BY: [facility]Asc[facility] [facility] [id number] TSH 2.870 {uIU/mL} (Normal) Range: 0.450-4.500 :42 METABOLIC PANEL, COMPREHENSIVE Comments: PATIENT NOT FASTINGPERFORMED BY: [facility]Asc[facility] [facility] [id number] (64719) ALT (SGPT) 51 [iU]/L (Abnormal) Range: 0-32 [...] Glucose, Serum 95 mg/dL (Normal) Range: 65-99 8-Eos-504190:42 CBC W/AUTO DIFF WBC (67179) Comments: PATIENT NOT FASTINGPERFORMED BY: [facility] Tfqmlw2873 [facility] [id number] Immature Grans (Abs) 0.0 {x10E3/uL} (Normal) Range: [...] 3.77-5.28 WBC 9.7 {x10E3/uL} (Normal) Range: 3.4-10.8 :22 PT (Prothrobim Time) (87009) Comments: PATIENT NOT FASTINGPERFORMED BY: MobiClubAsc[facility] [facility] [id number] Prothrombin Time 23.3 {sec} (Abnormal) Range: 9.1-12.0 INR 2.3 (Abnormal) Range: 0.8-1.2 Comments: Reference interval is for non-anticoagulated patients. . Suggested INR therapeutic range for Vitamin K anta gonist therapy: Standard Dose (moderate intensity therapeutic range): 2.0 - 3.0 Higher intensity therapeutic range 2.5 - 3.5 :36 PT (Prothrobim Time) (98166) Comments: PATIENT NOT FASTINGPERFORMED BY: [facility]ioP[facility] Medicine [facility] Medical CenterUxjghx0880 [facility] [id number] Prothrombin Time 25.8 {sec} (Abnormal) Range: 9.1-12.0 INR 2.5 (Abnormal) Range: 0.8-1.2 Comments: Reference interval is for non-anticoagulated patients. . Suggested INR therapeutic range for Vitamin K anta gonist therapy: Standard Dose (moderate intensity therapeutic range): 2.0 - 3.0 Higher intensity therapeutic range 2.5 - 3.5 :27 PT (Prothrobim Time) (87898) Comments: PATIENT NOT FASTINGPERFORMED BY: [facility] [facility] [id number] Prothrombin Time 22.3 {sec} (Abnormal) Range: 9.1-12.0 INR 2.2 (Abnormal) Range: 0.8-1.2 Comments: Reference interval is for non-anticoagulated patients. . Suggested INR therapeutic range for Vitamin K anta gonist therapy: Standard Dose (moderate intensity therapeutic range): 2.0 - 3.0 Higher intensity therapeutic range 2.5 - 3.5 37-Was-918754:05 CBC-Complete Blood Cnt No Diff Comments: [facility] Ljoljjivxj4215 [place], [address] MPV 10.2 fL (Normal) Range: 6.2-12.0 PLT [...] 4.2-5.4 WBC 6.9 K/mm3 (Normal) Range: 4.4-11.0 27-Ymh-952514:24 PT (Prothrobim Time) (43280) Comments: PATIENT NOT FASTINGPERFORMED BY: [employer] [facility] [employer] [id number] Prothrombin Time 20.6 {sec} (Abnormal) Range: 9.1-12.0 INR 2.0 (Abnormal) Range: 0.8-1.2 Comments: Reference interval is for non-anticoagulated patients. . Suggested INR therapeutic range for Vitamin K anta gonist therapy: Standard Dose (moderate intensity therapeutic range): 2.0 - 3.0 Higher intensity therapeutic range 2.5 - 3.5 :42 PT (Prothrobim Time) (50935) Comments: PATIENT NOT FASTINGPERFORMED BY: [employer] Vqhwjv9695 [facility] [id number] Prothrombin Time 20.0 {sec} (Abnormal) Range: 9.1-12.0 INR 2.0 (Abnormal) Range: 0.8-1.2 Comments: Reference interval is for non-anticoagulated patients. . Suggested INR therapeutic range for Vitamin K anta gonist therapy: Standard Dose (moderate intensity therapeutic range): 2.0 - 3.0 Higher intensity therapeutic range 2.5 - 3.5 :38 PT (Prothrobim Time) (22246) Comments: PATIENT NOT FASTINGPERFORMED BY: PERRY Mondragonlin6[address] [facility] [id number] Prothrombin Time 19.4 {sec} (Abnormal) Range: 9.1-12.0 INR 1.9 (Abnormal) Range: 0.8-1.2 Comments: Reference interval is for non-anticoagulated patients. . Suggested INR therapeutic range for Vitamin K anta gonist therapy: Standard Dose (moderate intensity therapeutic range): 2.0 - 3.0 Higher intensity therapeutic range 2.5 - 3.5 74-Flm-904851:07 PT (Prothrobim Time) (79448) Comments: PATIENT NOT FASTINGPERFORMED BY: [facility] [facility] [id number] Prothrombin Time 18.9 {sec} (Abnormal) Range: 9.1-12.0 INR 1.8 (Abnormal) Range: 0.8-1.2 Comments: Reference interval is for non-anticoagulated patients. . Suggested INR therapeutic range for Vitamin K anta gonist therapy: Standard Dose (moderate intensity therapeutic range): 2.0 - 3.0 Higher intensity therapeutic range 2.5 - 3.5 :40 PT (Prothrobim Time) (66867) Comments: PATIENT NOT FASTINGPERFORMED BY: [facility] [facility] [id number] Prothrombin Time 21.4 {sec} (Abnormal) Range: 9.1-12.0 INR 2.1 (Abnormal) Range: 0.8-1.2 Comments: Reference interval is for non-anticoagulated patients. . Suggested INR therapeutic range for Vitamin K anta gonist therapy: Standard Dose (moderate intensity therapeutic range): 2.0 - 3.0 Higher intensity therapeutic range 2.5 - 3.5 :18 PT (Prothrobim Time) (22611) Comments: PATIENT NOT FASTINGPERFORMED BY: [place] 03625[address] [facility] [id number] Prothrombin Time 18.6 {sec} (Abnormal) Range: 9.1-12.0 INR 1.8 (Abnormal) Range: 0.8-1.2 Comments: Reference interval is for non-anticoagulated patients. . Suggested INR therapeutic range for Vitamin K anta gonist therapy: Standard Dose (moderate intensity therapeutic range): 2.0 - 3.0 Higher intensity therapeutic range 2.5 - 3.5 11-Yya-890951:03 PT (Prothrobim Time) (25651) Comments: PATIENT NOT FASTINGPERFORMED BY: [facility] [facility] [id number] Prothrombin Time 23.6 {sec} (Abnormal) Range: 9.1-12.0 INR 2.3 (Abnormal) Range: 0.8-1.2 Comments: Reference interval is for non-anticoagulated patients. . Suggested INR therapeutic range for Vitamin K anta gonist therapy: Standard Dose (moderate intensity therapeutic range): 2.0 - 3.0 Higher intensity therapeutic range 2.5 - 3.5 :49 PT (Prothrobim Time) (76813) Comments: PATIENT NOT FASTINGPERFORMED BY: [facility] [facility] [id number] Prothrombin Time 24.7 {sec} (Abnormal) Range: 9.1-12.0 INR 2.4 (Abnormal) Range: 0.8-1.2 Comments: Reference interval is for non-anticoagulated patients. . Suggested INR therapeutic range for Vitamin K anta gonist therapy: Standard Dose (moderate intensity therapeutic range): 2.0 - 3.0 Higher intensity therapeutic range 2.5 - 3.5 :34 PT (Prothrobim Time) (65967) Comments: PATIENT NOT FASTINGPERFORMED BY: [facility] [facility] [id number] Prothrombin Time 23.1 {sec} (Abnormal) Range: 9.1-12.0 INR 2.3 (Abnormal) Range: 0.8-1.2 Comments: Reference interval is for non-anticoagulated patients. . Suggested INR therapeutic range for Vitamin K anta gonist therapy: Standard Dose (moderate intensity therapeutic range): 2.0 - 3.0 Higher intensity therapeutic range 2.5 - 3.5 :26 PT (Prothrobim Time) (98127) Comments: PATIENT NOT FASTINGPERFORMED BY: [facility] [facility] [id number] Prothrombin Time 14.3 {sec} (Abnormal) Range: 9.1-12.0 INR 1.4 (Abnormal) Range: 0.8-1.2 Comments: Reference interval is for non-anticoagulated patients. . Suggested INR therapeutic range for Vitamin K anta gonist therapy: Standard Dose (moderate intensity therapeutic range): 2.0 - 3.0 Higher intensity therapeutic range 2.5 - 3.5 :31 Prothrombin Time w/INR Comments: Order Date: 08/03/16Order Info: [id number] - PTComments: STATOrder Date: 08/03/16Order Info: 6301-6 - PTComments: STATOrder Date: 08/03/16Order Info: 6301-6 - PTComments: [facility] skelczpng[address] [place], [address] INR 2.2 (Normal) PROTIME 24.1 s (Abnormal) Range: 11.7-14.9 :05 PT (Prothrobim Time) (96195) Comments: PATIENT NOT FASTINGPERFORMED BY: [facility] [facility] [id number] Prothrombin Time 10.4 {sec} (Normal) Range: 9.1-12.0 INR 1.0 (Normal) Range: 0.8-1.2 Comments: Reference interval is for non-anticoagulated patients. . Suggested INR therapeutic range for Vitamin K anta gonist therapy: Standard Dose (moderate intensity therapeutic range): 2.0 - 3.0 Higher intensity therapeutic range 2.5 - 3.5 02-Udw-388223:30 Urinalysis, Complete Comments: How was Urine Obtained? CLEAN [facility] N[address]tl[address] [place], [id number] MUCUS, URINE 1+ {/hpf} (Normal) BACTERIA 0 [...] CLARITY Sl. Cloudy (Normal) COLOR Yellow (Normal) 68-Cak-447720:15 Basic Metabolic Profile (BMP) Comments: 'TROP' Serial specimen #1, #2, #3, or #4: [address] [place] [address] Jfkm[address]zwfef6307 [place], [address] GAP 7 (Normal) Range: 5-15 CO2 31.0 [...] <126 mg/dLsuggests IMPAIRED HOMEOSTASIS per A.D.A. criteria. 63-Peu-610289:15 BNP,B-Type NATRIURETIC PEPTIDE Comments: [facility] Jcprlsyprt0597 Radha [place], [place], [address] B-TYPE HALEY PEP < 2.0 pg/mL (Normal) Range: 0-100 77-Lxe-234159:15 CBC W/Diff, Automated Comments: [facility] Pnbgeirjbg2318 Radha Phamoster [place], [id number] MACROCYTE RARE (Normal) ANISO RARE (Normal) PLT [...] 4.2-5.4 WBC 7.0 K/mm3 (Normal) Range: 4.4-11.0 75-Mjt-479018:15 Troponin-I Comments: 'TROP' Serial specimen #1, #2, #3, or #4: [address] [place] [address] Douuqulxie6251 [place], [address] TROPONIN-I < 0.02 ng/mL (Normal) Comments: TROPONIN-I EXPECTED VALUES <0.05 NEGATIVE 0.06 - 0.59 AT RISK OF NC > OR = 0.60 SUGGEST NC 33-Fes-413173:15 PAP I-G w/rfx hrHPV Comments: CYTOLOGY INFORMATION:- CLINICAL INFORMATION: HYSTERECTOMY- DATE LMP/MENOPAUSE:- COLLECTION VIAL: Thin Prep Vial- AIRCRAFT TOOL MAKER SOURCE: VAGINAL- COLLECTION TECHNIQUE: SPATULA ONLYCYTOLOGY INFORMATION:- CLINICAL IN FORMATION: HYSTERECTOMY- DATE LMP/MENOPAUSE:- COLLECTION VIAL: Thin Prep Vial- AIRCRAFT TOOL MAKER SOURCE: VAGINAL- COLLECTION TECHNIQUE: SPATULA ONLYSpecimen Comment: [id number] Comment: No. of contai ners..01 CYTYC Thin Prep VialLabCorp (refer to report for specific site)refer to report for address and phone number HPV RFLX Comment (Normal) Comments: The HPV DNA reflex criteria were not met with this specimenresult therefore, no HPV testing was performed.Performed at: [address] [id number] Director: Che Nicole MD, Phone: [phone] PAPR Comment (Normal) Comments: The Pap smear is [...] system. PERFORM Comment (Normal) Comments: Arminda Lopez, Locator Specialist (ASCP) ADEQ Comment (Normal) Comments: Satisfactory for evaluation. Endocervical and/or squamous metaplasticcells (endocervical component) are present. DIAGN Comment (Normal) Comments: NEGATIVE FOR INTRAEPITHELIAL LESION AND MALIGNANCY. 00-Cfg-327646:10 Basic Metabolic Profile (BMP) Comments: [facility] Okgtzgjtzp[address]. [place], [address] GAP 7 (Normal) Range: 5-15 CO2 28.0 [...] <126 mg/dLsuggests IMPAIRED HOMEOSTASIS per A.D.A. criteria. 3-Hrn-992893:29 BNP,B-Type NATRIURETIC PEPTIDE Comments: [facility] Lmoxikfngy30[address]. [place], [address] B-TYPE HALEY PEP 4.2 pg/mL (Normal) Range: 0-100 04-Mrq-518511:36 Troponin I (50512) Comments: PATIENT NOT FASTINGPERFORMED BY: [employer] Hvcdnk3652 [facility] [id number] BY: Yadio[address] [id number] Troponin I <0.01 ng/mL (Normal) Range: 0.00-0.04 87-Bwp-614994:36 BNTP (55806) Comments: PATIENT NOT FASTINGPERFORMED BY: [employer] Shbwnq8438 [facility] [id number] BY: Yadio[address] [id number] B-Type Natriuretic Peptide 5.5 pg/mL (Normal) Range: 0.0-100.0 05-Ldp-629441:36 UP (76003) Comments: PATIENT NOT FASTINGPERFORMED BY: [place]ioMichel[place] 9835870 [facility] [id number] BY: [address] [id number] Please note: SPRCS (Normal) Comments: Protein electrophoresis scan will follow via computer, mail, orcourier delivery. M-Stanley, % Not Observed % (Normal) Gamma Globulin, U 16.5 % (Normal) Beta Globulin, U 29.9 % (Normal) Ewnth-3-Worygztg, U 22.4 % (Normal) Ldaqf-7-Ktenqnat, U 6.5 % (Normal) Albumin, U 24.7 % (Normal) Protein,Total,Urine 9.6 mg/dL (Normal) 34-Dhw-766534:36 SPEP (43353) Comments: PATIENT NOT FASTINGPERFORMED BY: [place]Michel[place] 9835870 [facility] [id number] BY: Yadio[address] [id number] Please note: SPRCS (Normal) Comments: Protein electrophoresis scan will follow via computer, mail, orcourier delivery. A/G Ratio 0.9 (Normal) Range: 0.7-1.7 Globulin, Total 3.6 g/dL (Normal) Range: 2.2-3.9 M-Stanley Not Observed g/dL (Normal) Gamma Globulin 1.5 g/dL (Normal) Range: 0.4-1.8 Beta Globulin 1.2 g/dL (Normal) Range: 0.7-1.3 Fvvso-2-Ezkafrvg 0.7 g/dL (Normal) Range: 0.4-1.0 Vwmwe-3-Bnkjekfn 0.2 g/dL (Normal) Range: 0.0-0.4 Albumin 3.4 g/dL (Normal) Range: 2.9-4.4 Protein, Total, Serum 7.0 g/dL (Normal) Range: 6.0-8.5 76-Fok-991941:36 CCP ANTIBODY (17865) Comments: PATIENT NOT FASTINGPERFORMED BY: [facility] Hospitalmy6senseMichelle [place] [id number] [facility] [id number] BY: [address] [id number] CCP Antibodies IgG/IgA 6 {units} (Normal) Range: 0-19 Comments: Negative <20 Weak positive 20 - 39 Moderate positive 40 - 59 Strong positive >59 76-Rik-216934:36 RHEUMATOID FACTOR-QUANT Comments: PATIENT NOT FASTINGPERFORMED BY: [employer] [id number] BY: [address] [id number] (70823) RA Latex Turbid. 14.7 {IU/mL} (Abnormal) Range: 0.0-13.9 79-Hzq-246921:36 REYNALDO (ANTINUCLEAR ANTIBODY) Comments: PATIENT NOT FASTINGPERFORMED BY: Yadio[address] [id number] BY: [address] [id number] (94703) REYNALDO Direct Negative (Normal) 77-Naa-732148:36 SJOGREN ANTIBOIDIES Comments: PATIENT NOT FASTINGPERFORMED BY: Yadio[address] [id number] BY: [address] [id number] (ANTI-SS-A/ANTI-SS-B) (70061) Sjogren's Anti-SS-B <0.2 {AI} (Normal) Range: 0.0-0.9 Sjogren's Anti-SS-A <0.2 {AI} (Normal) Range: 0.0-0.9 92-Wfe-290756:31 SPEP (07842) Comments: PATIENT NOT FASTINGPERFORMED BY: [place] 03625[address] [facility] [id number] Please note: SPRCS (Normal) Comments: Protein electrophoresis scan will follow via computer, mail, orcourier delivery. A/G Ratio 0.9 (Normal) Range: 0.7-1.7 Globulin, Total 3.6 g/dL (Normal) Range: 2.2-3.9 M-Stanley Not Observed g/dL (Normal) Gamma Globulin 1.4 g/dL (Normal) Range: 0.4-1.8 Beta Globulin 1.2 g/dL (Normal) Range: 0.7-1.3 Paebc-7-Zcqrccmf 0.7 g/dL (Normal) Range: 0.4-1.0 Zlrgh-1-Slpombbr 0.3 g/dL (Normal) Range: 0.0-0.4 Albumin 3.4 g/dL (Normal) Range: 2.9-4.4 Protein, Total, Serum 7.0 g/dL (Normal) Range: 6.0-8.5 :31 UPEP (49069) Comments: PATIENT NOT FASTINGPERFORMED BY: [facility] [id number] Please note: SPRCS (Normal) Comments: Protein electrophoresis scan will follow via computer, mail, orcourier delivery. M-Stanley, % Not Observed % (Normal) Gamma Globulin, U 18.0 % (Normal) Beta Globulin, U 32.7 % (Normal) Twvsx-0-Wdwqaskt, U 22.3 % (Normal) Wbrtg-5-Luswxcgr, U 11.7 % (Normal) Albumin, U 15.4 % (Normal) Protein,Total,Urine 5.1 mg/dL (Normal) [id number] CDIFF (Molecular) Comments: [facility] [id number] [facility]. [place], [place], [id number] CDIFF See Note (Normal) Comments: Cdiff-MolecularC. Diff DNA Negative- No toxigenic C. Diff DNA Detected :25 ENTERIC PATHOGEN PANEL STOOL Comments: [facility] [id number] [facility] [place], [address] EP PANEL See Note (Normal) Comments: [...] Detected :25 Ova and Parasites [id number] Comments: [facility] [id number] [facility] [facility] [place], [address] OP See Note Comments: O + P [id number] AND PARASITES EXAM, ROUTINE These results were obtained using wet preparation(s) and trichrome stained smear. This test does not include testing for Crytosporidium parvum, C (Normal) yclospora, or Microsporidia. TESTING PERFORMED AT [facility]. ORIGINAL REPORT ON FILE IN LAB CONTAINS ADDITIONAL TEST SITE INFORMATION. ____ Ova/Parasite Exam NO OVA, CYSTS, OR PARASITES FOUND. :25 Stool Lactoferrin/WBC Comments: [facility] Tscfcddwij4977 [facility] [place], [address] ; will review on 03/19 WBCST See Note (Normal) Comments: Stool Lacto/WBCFecal WBC Lactoferrin Negative: No Fecal WBC Lactoferrin present :25 Stool Occult Blood iFOB Comments: [facility] [address] [place], [address] STOB See Note (Normal) Comments: STOB iFOBOccult Blood Negative :25 Amylase Comments: [facility] [address] [place], [id number] RADHA 28 U/L (Normal) Range: 25-115 :25 BNP,B-Type NATRIURETIC PEPTIDE Comments: [facility] [address] [place], [id number] B-TYPE HALEY PEP 3.8 pg/mL (Normal) Range: 0-100 :25 CBC W/Diff, Automated Comments: [facility] [address] [place], [id number] Absolute Lymph 1.54 {X10_3/ul} (Normal) Range: 0.83-4.51 [...] 4.2-5.4 WBC 7.2 K/mm3 (Normal) Range: 4.4-11.0 :25 Comprehensive Metabolic Profil Comments: [facility] [address] [place], [place], [id number] GAP 7 (Normal) Range: 5-15 CO2 30.0 [...] A.D.A. criteria. :25 D-Dimer Quantitative (DVT/PE) Comments: [facility] [address] [place], [address] D-DIMER QUANT < 0.27 {FEU/ug/m} (Abnormal) Range: 0.27-0.49 Comments: NORMAL D-Dimer level (<0.50) indicates no DVT or PE. :25 Lipase Comments: [facility] [address] [place], [id number] LIPASE 109 U/L (Normal) Range: 73-393 :25 Lipid Profile Comments: [facility] [address] [place], [id number] VLDL 25 mg/dL (Normal) Range: 5-40 LDL [...] Risk :25 Thyroid Stim Hormone (TSH) Comments: [facility] [address] [place], [id number] TSH 3.44 {uIU/mL} (Normal) Range: 0.358-3.74 :25 Vitamin D,25 Hydroxy Comments: [facility] [address] [place], [id number] Vitamin D 25-OH 24.7 ng/mL (Normal) Comments: Vitamin D 25(OH) Status Range Deficiency <20 ng/mL (50nmol/L) Insuffciency 20 - 30 ng/mL (50 - 75 nmol/L) Sufficiency 30 - 100 ng/mL (75 - 250 nmol/L) Toxicity >100 ng/mL (>250 nmol/L) 55-Tfl-191486:02 PT (Prothrobim Time) Comments: PATIENT NOT FASTINGPERFORMED BY: [facility] Center[facility]r[address] [facility] [id number] Information: [id number] ([id number]) Prothrombin Time 28.4 {sec} (Abnormal) Range: 9.1-12.0 INR 2.6 (Abnormal) Range: 0.8-1.2 Comments: Reference interval is for non-anticoagulated patients. . Suggested INR therapeutic range for Vitamin K anta gonist therapy: Standard Dose (moderate intensity therapeutic range): 2.0 - 3.0 Higher intensity therapeutic range 2.5 - 3.5 8-Ipd-822716:45 PAP I-G w/rfx hrHPV Comments: CYTOLOGY INFORMATION:- CLINICAL INFORMATION: [g PTHCLINFO]- DATE LMP/MENOPAUSE: [] [g PTHLMPMEN]- COLLECTION VIAL: Thin Prep Vial- AIRCRAFT TOOL MAKER SOURCE: [g PTHGYNSRC]- COLLECTION TECHNIQUE: [g PTHCOL LECT]Specime n Comment: [id number] Comment: No. of containers..01 CYTYC Thin Prep VialTest performed at:[facility] [address] [place], [place] [address] HPV RFLX Comment (Normal) Comments: The HPV DNA reflex criteria were not met with this specimenresult therefore, no HPV testing was performed.Performed at: [facility] [address] [id number] Director: Jesse Alejo MD, Phone: [phone] PAPSMR Comment (Normal) Comments: The Pap smear [...] system. PERFORM Comment (Normal) Comments: Alfa Sanchez, Locator Specialist (ASCP) ADEQ Comment (Normal) Comments: Satisfactory for evaluation. No endocervical component is identified. DIAGN Comment (Normal) Comments: NEGATIVE FOR INTRAEPITHELIAL LESION AND MALIGNANCY. :23 Urinalysis, Complete Comments: Order Date: 12/28/14How was Urine Obtained? PAVING STONE INSTALLER TO SPECIFYTest performed at:[facility] [address] [place], [place] [id number] MUCUS, URINE 1+ {/hpf} (Normal) BACTERIA 0 [...] Urine Drug Screen (VISTA) Comments: Test performed at:[facility] [address] [place], [place] [id number] THC NEGATIVE (Normal) PCP NEGATIVE (Normal) OPIATES [...] TESTING MUST BE ORDERED SEPARATELY. USE TESTMNEMONIC: [facility] :15 Alcohol, Blood (Medical)-Serum Comments: Test performed at:[facility] [address] [place] [address] SERUM ETOH 10.0 mg/dL (Normal) Comments: The serum:whole blood ethanol ratio is approximately 1.14and varies slightly with hematocrit.Medical Alcohol reference interval and critical value innon-tolerant individuals; 50 - 100 Impairment 100 Intoxication 100 - 250 Severe Poisoning 250 - 400 Deep/possible fatal coma :15 Basic Metabolic Profile (BMP) Comments: Test performed at:[facility] [address] [facility] [place] [address] GAP 10 (Normal) Range: 5-15 [...] :15 CBC W/Diff, Automated Comments: Test performed at:[facility] [address] [place] [address] Absolute Lymph 3.11 {X10_3/ul} (Normal) Range: 0.83-4.51 [...] 4.4-11.0 :15 ,Serum,hCG Quali. Comments: Test performed at:[facility] Occsvukksh1704 [facility] [place] [address] HCGSQUAL NEGATIVE {Negative} (Normal) Range: 0-9 Nonpreg HCG Qual triggr 4 m[iU]/mL (Normal) 21-Jlb-927325:55 Urine Drug Screen (VISTA) Comments: Test performed at:[facility] Wpmasrsuir8894 [facility] [place] [address] THC NEGATIVE (Normal) PCP NEGATIVE [...] TESTING MUST BE ORDERED SEPARATELY. USE TESTMNEMONIC: [facility] 22-Adm-136101:05 Alcohol, Blood (Medical)-Serum Comments: Test performed at:[facility] Ylucvsmahv6919 [facility] [place] [address] SERUM ETOH < 3.0 mg/dL (Normal) Comments: The serum:whole blood ethanol ratio is approximately 1.14and varies slightly with hematocrit.Medical Alcohol reference interval and critical value innon-tolerant individuals; 50 - 100 Impairment 100 Intoxication 100 - 250 Severe Poisoning 250 - 400 Deep/possible fatal coma :05 Basic Metabolic Profile (BMP) Comments: Test performed at:[facility] Xjwpvdolvv0481 [facility] [place] [address] GAP 9 (Normal) Range: 5-15 CO2 25.0 [...] <126 mg/dLsuggests IMPAIRED HOMEOSTASIS per A.D.A. criteria. :05 CBC W/Diff, Automated Comments: Test performed at:[facility] [address] [place] [address] Absolute Lymph 2.66 {X10_3/ul} (Normal) [...] 29-Oct-20141:15 Alcohol, Blood (Medical)-Serum Comments: Test performed at:[facility] [address]tm[address] [place] [address] SERUM ETOH < 3.0 mg/dL (Normal) Comments: The serum:whole blood ethanol ratio is approximately 1.14and varies slightly with hematocrit.Medical Alcohol reference interval and critical value innon-tolerant individuals; 50 - 100 Impairment 100 Intoxication 100 - 250 Severe Poisoning 250 - 400 Deep/possible fatal coma :15 Basic Metabolic Profile (BMP) Comments: Test performed at:[facility] [address]bjahcg[address] [place] [place] [address] GAP 6 (Normal) Range: 5-15 [...] :15 CBC W/Diff, Automated Comments: Test performed at:[facility] K[address]swcut[address] [place] [address] Absolute Lymph 2.65 {X10_3/ul} (Normal) Range: 0.83-4.51 [...] 4.4-11.0 :15 ,Serum,hCG Quali. Comments: Test performed at:[facility] [address] [place] [address] HCGSQUAL NEGATIVE {Negative} (Normal) Range: 0-9 Nonpreg HCG Qual triggr 4 m[iU]/mL (Normal) :15 Urine Drug Screen (VISTA) Comments: Test performed at:[facility] Rwgmrelxjl9363 [facility] [place] [address] THC NEGATIVE (Normal) PCP NEGATIVE [...] TESTING MUST BE ORDERED SEPARATELY. USE TESTMNEMONIC: [facility] 03-Ghv-616390:32 Rapid Flu (56904 x 2) Influenza A Ag Negitive A and B (Normal) :56 ,Serum,hCG Quali. Comments: Test performed at:[facility] [address] [place] [address] HCGSQUAL NEGATIVE {Negative} (Normal) Range: 0-9 Nonpreg HCG Qual triggr 3 m[iU]/mL (Normal) :01 CBC W/Diff, Automated Comments: Test performed at:[facility] [address]amxc[address] [place] [place] [address] Absolute Lymph 2.32 {X10_3/ul} (Normal) Range: 0.83-4.51 [...] :01 Comprehensive Metabolic Profil Comments: Test performed at:[facility] Vmrrbvgqok44[address] [facility] [address]. [place], [place] [address] GAP 6 (Normal) Range: 5-15 CO2 29.0 [...] 126 mg/dLsuggests DIABETES MELLITUS per A.D.A. criteria. :01 Prothrombin Time w/INR Comments: Test performed at:[facility] [address] [place] [address] INR 1.1 (Normal) PROTIME 14.7 s (Normal) Range: 11.7-14.9 66-Msy-527631:36 PT (Prothrobim Time) Comments: PATIENT NOT FASTINGPERFORMED BY: PERRY [facility] [address] [place] [id number] Information: [id number] ([id number]) Prothrombin Time 10.0 {sec} (Normal) Range: 9.1-12.0 INR 0.9 (Normal) Range: 0.8-1.2 Comments: Reference interval is for non-anticoagulated patients. . Suggested INR therapeutic range for Vitamin K anta gonist therapy: Standard Dose (moderate intensity therapeutic range): 2.0 - 3.0 Higher intensity therapeutic range 2.5 - 3.5 0-Ile-268092:20 Basic Metabolic Profile (BMP) Comments: 'TROP' Serial specimen #1, #2, #3, or #4: 1Test performed at:[facility] [address] [place] [address] GAP 4 (Abnormal) Range: 5-15 CO2 [...] 7-18 GLU 97 mg/dL (Normal) Range: 70-110 8-Rvs-224400:20 CBC W/Diff, Automated Comments: Test performed at:[facility] [address] [place] [address] Absolute Lymph 2.54 {X10_3/ul} (Normal) Range: 0.83-4.51 [...] 4.2-5.4 WBC 9.5 K/mm3 (Normal) Range: 4.4-11.0 5-Ohp-193476:20 Troponin-I Comments: 'TROP' Serial specimen #1, #2, #3, or #4: 1Test performed at:[facility] [address] [place], [place] [id number] TROPONIN-I < 0.02 ng/mL (Normal) Comments: TROPONIN-I EXPECTED VALUES <0.05 NEGATIVE 0.06 - 0.59 AT RISK OF NC > OR = 0.60 SUGGEST NC 38-Kty-840098:42 PT (Prothrobim Time) Comments: PATIENT NOT FASTINGPERFORMED BY: [facility] [address] [id number] Information: [id number] ([id number]) Prothrombin Time 23.6 {sec} (Abnormal) Range: 9.1-12.0 INR 2.2 (Abnormal) Range: 0.8-1.2 Comments: Reference interval is for non-anticoagulated patients. . Suggested INR therapeutic range for Vitamin K anta gonist therapy: Standard Dose (moderate intensity therapeutic range): 2.0 - 3.0 Higher intensity therapeutic range 2.5 - 3.5 :18 PT (Prothrobim Time) Comments: PATIENT NOT FASTINGPERFORMED BY: [place] [id number] [facility] [id number] Information: [id number] ([id number]) Prothrombin Time 31.8 {sec} (Abnormal) Range: 9.1-12.0 INR 2.9 (Abnormal) Range: 0.8-1.2 Comments: Reference interval is for non-anticoagulated patients. . Suggested INR therapeutic range for Vitamin K anta gonist therapy: Standard Dose (moderate intensity therapeutic range): 2.0 - 3.0 Higher intensity therapeutic range 2.5 - 3.5 :31 PT (Prothrobim Time) Comments: PATIENT NOT FASTINGPERFORMED BY: [facility] [id number] Information: [id number] ([id number]) Prothrombin Time 20.7 {sec} (Abnormal) Range: 9.1-12.0 INR 1.9 (Abnormal) Range: 0.8-1.2 Comments: Reference interval is for non-anticoagulated patients. . Suggested INR therapeutic range for Vitamin K anta gonist therapy: Standard Dose (moderate intensity therapeutic range): 2.0 - 3.0 Higher intensity therapeutic range 2.5 - 3.5 83-Mel-193924:25 PT (Prothrobim Time) Comments: PATIENT NOT FASTINGPERFORMED BY: [facility] [id number] Information: [id number] ([id number]) Prothrombin Time 13.2 {sec} (Abnormal) Range: 9.1-12.0 INR 1.2 (Normal) Range: 0.8-1.2 Comments: Reference interval is for non-anticoagulated patients. . Suggested INR therapeutic range for Vitamin K anta gonist therapy: Standard Dose (moderate intensity therapeutic range): 2.0 - 3.0 Higher intensity therapeutic range 2.5 - 3.5 :40 PT (Prothrobim Time) Comments: PATIENT NOT FASTINGPERFORMED BY: [facility] [id number] Information: [id number] ([id number]) Prothrombin Time 14.8 {sec} (Abnormal) Range: 9.1-12.0 INR 1.4 (Abnormal) Range: 0.8-1.2 Comments: Reference interval is for non-anticoagulated patients. . Suggested INR therapeutic range for Vitamin K anta gonist therapy: Standard Dose (moderate intensity therapeutic range): 2.0 - 3.0 Higher intensity therapeutic range 2.5 - 3.5 :39 PT (Prothrobim Time) Comments: PATIENT NOT FASTINGPERFORMED BY: [place] [address] [facility] [id number] Information: [id number] ([id number]) Prothrombin Time 11.9 {sec} (Normal) Range: 9.1-12.0 INR 1.1 (Normal) Range: 0.8-1.2 Comments: Reference interval is for non-anticoagulated patients. . Suggested INR therapeutic range for Vitamin K anta gonist therapy: Standard Dose (moderate intensity therapeutic range): 2.0 - 3.0 Higher intensity therapeutic range 2.5 - 3.5 :20 PT (Prothrobim Time) Comments: PATIENT NOT FASTINGPERFORMED BY: [facility] [id number] Information: [id number] ([id number]) Prothrombin Time 31.6 {sec} (Abnormal) Range: 9.1-12.0 INR 2.9 (Abnormal) Range: 0.8-1.2 Comments: Reference interval is for non-anticoagulated patients. . Suggested INR therapeutic range for Vitamin K anta gonist therapy: Standard Dose (moderate intensity therapeutic range): 2.0 - 3.0 Higher intensity therapeutic range 2.5 - 3.5 :31 PT (Prothrobim Time) Comments: PATIENT NOT FASTINGPERFORMED BY: [facility] [id number] Information: [id number] ([id number]) Prothrombin Time 23.5 {sec} (Abnormal) Range: 9.1-12.0 INR 2.2 (Abnormal) Range: 0.8-1.2 Comments: Reference interval is for non-anticoagulated patients. . Suggested INR therapeutic range for Vitamin K anta gonist therapy: Standard Dose (moderate intensity therapeutic range): 2.0 - 3.0 Higher intensity therapeutic range 2.5 - 3.5 70-Pdu-801024:38 PT (Prothrobim Time) Comments: PATIENT NOT FASTINGPERFORMED BY: [facility] [id number] Information: [id number] ([id number]) Prothrombin Time 22.9 {sec} (Abnormal) Range: 9.1-12.0 INR 2.1 (Abnormal) Range: 0.8-1.2 Comments: Reference interval is for non-anticoagulated patients. . Suggested INR therapeutic range for Vitamin K anta gonist therapy: Standard Dose (moderate intensity therapeutic range): 2.0 - 3.0 Higher intensity therapeutic range 2.5 - 3.5 83-Cjr-653989:16 PT (Prothrobim Time) Comments: PATIENT NOT FASTINGPERFORMED BY: [facility] [id number] Information: [id number] ([id number]) Prothrombin Time 36.6 {sec} (Abnormal) Range: 9.1-12.0 INR 3.3 (Abnormal) Range: 0.8-1.2 Comments: Reference interval is for non-anticoagulated patients. . Suggested INR therapeutic range for Vitamin K anta gonist therapy: Standard Dose (moderate intensity therapeutic range): 2.0 - 3.0 Higher intensity therapeutic range 2.5 - 3.5 65-Sam-352971:14 PT (Prothrobim Time) Comments: PATIENT NOT FASTINGPERFORMED BY: [facility] [id number] Information: [id number] ([id number]) Prothrombin Time 28.3 {sec} (Abnormal) Range: 9.1-12.0 INR 2.7 (Abnormal) Range: 0.8-1.2 Comments: Reference interval is for non-anticoagulated patients. . Suggested INR therapeutic range for Vitamin K anta gonist therapy: Standard Dose (moderate intensity therapeutic range): 2.0 - 3.0 Higher intensity therapeutic range 2.5 - 3.5 :13 HgA1C , Office (74318) HgA1C , Office 5.9 % (Normal) Range: 4.6 - 7.1 :13 Blood Glucose , Office (13705) Blood Glucose , Office 144 (Normal) :54 PT (Prothrobim Time) Comments: STANDING ORDER; PATIENT NOT FASTINGPERFORMED BY: [facility] [facility] [address] [id number] Information: [id number] ([id number]) Prothrombin Time 31.0 {sec} (Abnormal) Range: 9.1-12.0 INR 3.0 (Abnormal) Range: 0.8-1.2 Comments: Reference interval is for non-anticoagulated patients. . Suggested INR therapeutic range for Vitamin K anta gonist therapy: Standard Dose (moderate intensity therapeutic range): 2.0 - 3.0 Higher intensity therapeutic range 2.5 - 3.5 :13 PT (Prothrobim Time) Comments: PATIENT NOT FASTINGPERFORMED BY: [facility] [facility] [address] [id number] Information: [id number] ([id number]) Prothrombin Time 29.0 {sec} (Abnormal) Range: 9.1-12.0 INR 2.8 (Abnormal) Range: 0.8-1.2 Comments: Reference interval is for non-anticoagulated patients. . Suggested INR therapeutic range for Vitamin K anta gonist therapy: Standard Dose (moderate intensity therapeutic range): 2.0 - 3.0 Higher intensity therapeutic range 2.5 - 3.5 :57 PT (Prothrobim Time) Comments: PATIENT NOT FASTINGPERFORMED BY: [facility] [id number] Information: [id number] ([id number]) Prothrombin Time 42.7 {sec} (Abnormal) Range: 9.1-12.0 INR 4.1 (Abnormal) Range: 0.8-1.2 Comments: Client Requested Flag Reference interval is for non- anticoagulated patients. . Suggested INR therapeutic ra nge for Vitamin K antagonist therapy: Standard Dose (moderate intensity therapeutic range): 2.0 - 3.0 Higher intensity therapeutic range 2.5 - 3.5 10-Nes-022035:00 PT (Prothrobim Time) Comments: PATIENT NOT FASTINGPERFORMED BY: [place] [id number] [facility] [id number] Information: [id number] ([id number]) Prothrombin Time 13.4 {sec} (Abnormal) Range: 9.1-12.0 INR 1.3 (Abnormal) Range: 0.8-1.2 Comments: Reference interval is for non-anticoagulated patients. . Suggested INR therapeutic range for Vitamin K anta gonist therapy: Standard Dose (moderate intensity therapeutic range): 2.0 - 3.0 Higher intensity therapeutic range 2.5 - 3.5 33-Qlj-861158:43 PT (Prothrobim Time) Comments: PATIENT NOT FASTINGPERFORMED BY: [place] [address] [facility] [id number] Information: [id number] ([id number]) Prothrombin Time 18.4 {sec} (Abnormal) Range: 9.1-12.0 INR 1.8 (Abnormal) Range: 0.8-1.2 Comments: Reference interval is for non-anticoagulated patients. . Suggested INR therapeutic range for Vitamin K anta gonist therapy: Standard Dose (moderate intensity therapeutic range): 2.0 - 3.0 Higher intensity therapeutic range 2.5 - 3.5 31-Oct-20139:31 PT (Prothrobim Time) Comments: PATIENT NOT FASTINGPERFORMED BY: [place] [address] [facility] [id number] Information: [id number] ([id number]) Prothrombin Time 19.8 {sec} (Abnormal) Range: 9.1-12.0 INR 1.9 (Abnormal) Range: 0.8-1.2 Comments: Reference interval is for non-anticoagulated patients. . Suggested INR therapeutic range for Vitamin K anta gonist therapy: Standard Dose (moderate intensity therapeutic range): 2.0 - 3.0 Higher intensity therapeutic range 2.5 - 3.5 :15 PT (Prothrobim Time) Comments: PATIENT NOT FASTINGPERFORMED BY: [place] [address] [facility] [id number] Information: [id number] ([id number]) Prothrombin Time 22.4 {sec} (Abnormal) Range: 9.1-12.0 INR 2.2 (Abnormal) Range: 0.8-1.2 Comments: Reference interval is for non-anticoagulated patients. . Suggested INR therapeutic range for Vitamin K anta gonist therapy: Standard Dose (moderate intensity therapeutic range): 2.0 - 3.0 Higher intensity therapeutic range 2.5 - 3.5 :40 PT (Prothrobim Time) Comments: STANDING ORDER; PATIENT NOT FASTINGPERFORMED BY: [place] [id number] [facility] [id number] Information: [id number] ([id number]) Prothrombin Time 22.1 {sec} (Abnormal) Range: 9.1-12.0 INR 2.1 (Abnormal) Range: 0.8-1.2 Comments: Reference interval is for non-anticoagulated patients. . Suggested INR therapeutic range for Vitamin K anta gonist therapy: Standard Dose (moderate intensity therapeutic range): 2.0 - 3.0 Higher intensity therapeutic range 2.5 - 3.5 :04 PT (Prothrobim Time) Comments: PATIENT NOT FASTINGPERFORMED BY: [facility] [id number] Information: [id number] ([id number]) Prothrombin Time 41.7 {sec} (Abnormal) Range: 9.1-12.0 INR 4.0 (Abnormal) Range: 0.8-1.2 Comments: Client Requested Flag Reference interval is for non- anticoagulated patients. . Suggested INR therapeutic ra nge for Vitamin K antagonist therapy: Standard Dose (moderate intensity therapeutic range): 2.0 - 3.0 Higher intensity therapeutic range 2.5 - 3.5 0-Wua-615394:27 PT (Prothrobim Time) Comments: STANDING ORDER; PATIENT NOT FASTINGPERFORMED BY: [facility] [facility] [address] [id number] Information: [id number] ([id number]) Prothrombin Time 34.2 {sec} (Abnormal) Range: 9.1-12.0 INR 3.3 (Abnormal) Range: 0.8-1.2 Comments: Reference interval is for non-anticoagulated patients. . Suggested INR therapeutic range for Vitamin K anta gonist therapy: Standard Dose (moderate intensity therapeutic range): 2.0 - 3.0 Higher intensity therapeutic range 2.5 - 3.5 24-Dxa-702671:36 Prothrombin Time (PT) Comments: PATIENT WAS FASTINGPERFORMED BY: [facility] [facility] [address] [id number] Prothrombin Time 28.4 {sec} (Abnormal) Range: 9.1-12.0 INR 2.7 (Abnormal) Range: 0.8-1.2 Comments: Reference interval is for non-anticoagulated patients. . Suggested INR therapeutic range for Vitamin K anta gonist therapy: Standard Dose (moderate intensity therapeutic range): 2.0 - 3.0 Higher intensity therapeutic range 2.5 - 3.5 80-Xlm-570412:15 PT (Prothrobim Time) Comments: STANDING ORDER; PATIENT NOT FASTINGPERFORMED BY: [facility] [facility] [id number] Information: [id number] ([id number]) Prothrombin Time 40.5 {sec} (Abnormal) Range: 9.1-12.0 INR 3.9 (Abnormal) Range: 0.8-1.2 Comments: Client Requested Flag Reference interval is for non- anticoagulated patients. . Suggested INR therapeutic ra nge for Vitamin K antagonist therapy: Standard Dose (moderate intensity therapeutic range): 2.0 - 3.0 Higher intensity therapeutic range 2.5 - 3.5 :48 PT (Prothrobim Time) Comments: STANDING ORDER; PATIENT NOT FASTINGPERFORMED BY: [place] [id number] [facility] [id number] Information: [id number] ([id number]) Prothrombin Time 28.8 {sec} (Abnormal) Range: 9.1-12.0 INR 2.8 (Abnormal) Range: 0.8-1.2 Comments: Reference interval is for non-anticoagulated patients. . Suggested INR therapeutic range for Vitamin K anta gonist therapy: Standard Dose (moderate intensity therapeutic range): 2.0 - 3.0 Higher intensity therapeutic range 2.5 - 3.5 :29 PT (Prothrobim Time) Comments: STANDING ORDER; PATIENT NOT FASTINGPERFORMED BY: [place] [id number] [facility] [id number] Information: [id number] ([id number]) Prothrombin Time 14.0 {sec} (Abnormal) Range: 9.1-12.0 INR 1.3 (Abnormal) Range: 0.8-1.2 Comments: Reference interval is for non-anticoagulated patients. . Suggested INR therapeutic range for Vitamin K anta gonist therapy: Standard Dose (moderate intensity therapeutic range): 2.0 - 3.0 Higher intensity therapeutic range 2.5 - 3.5 :14 PT (Prothrobim Time) (42199) Comments: Order Date: 02/20/13OV Order #: [id number] ID: [id number]: 453.42 - DVT (453.42) INR 2.6 (Normal) PTP 26.2 s (Abnormal) Range: 11.9-14.4 :48 PT (Prothrobim Time) Comments: STANDING ORDER; PATIENT NOT FASTINGPERFORMED BY: [facility] [id number] Information: [id number] (92953) Prothrombin Time 25.7 {sec} (Abnormal) Range: 9.1-12.0 INR 2.5 (Abnormal) Range: 0.8-1.2 Comments: Reference interval is for non-anticoagulated patients. . Suggested INR therapeutic range for Vitamin K anta gonist therapy: Standard Dose (moderate intensity therapeutic range): 2.0 - 3.0 Higher intensity therapeutic range 2.5 - 3.5 0-Iox-451645:40 Urinalysis, Office (33275) UA - BILIRUBIN Negative (Normal) UA - BLOOD Negative (Normal) UA - GLUCOSE Negative (Normal) UA - KETONES Negative mg/dL (Normal) UA - LEUKOCYTE ESTERASE Trace (Normal) UA - NITRITE Negative (Normal) UA - PH 6.0 (Normal) Comments: 5.5 UA - PROTEIN Negative mg/dL (Normal) UA - SPECIFIC GRAVITY 1.015 (Normal) URINE UROBILINGN DENISE TIMED Normal mg/dL (Normal) 2-Rqo-483113:53 PT (Prothrobim Time) Comments: PATIENT NOT FASTINGPERFORMED BY: [facility] [id number] Information: [id number] (72716) Prothrombin Time 39.8 {sec} (Abnormal) Range: 9.1-12.0 INR 3.8 (Abnormal) Range: 0.8-1.2 Comments: Client Requested Flag Reference interval is for non- anticoagulated patients. . Suggested INR therapeutic ra nge for Vitamin K antagonist therapy: Standard Dose (moderate intensity therapeutic range): 2.0 - 3.0 Higher intensity therapeutic range 2.5 - 3.5 86-Brl-542485:34 Aerobic Bacterial Culture Comments: PERFORMED BY: [facility] [id number] Information: SRC: Result 1 Mixed skin irais (Normal) Aerobic Bacterial Culture Final report (Normal) 81-Sqd-910087:31 Metabolic Panel, Basic Comments: PATIENT NOT FASTINGPERFORMED BY: [facility] [id number] Information: [id number] (02411) Calcium, Serum 9.3 mg/dL (Normal) Range: 8.7-10.2 [...] Glucose, Serum 95 mg/dL (Normal) Range: 65-99 6-Pqy-568864:28 PT (Prothrobim Time) Comments: PATIENT NOT FASTINGPERFORMED BY: [place] [address] [id number] Information: [id number] (00422) Prothrombin Time 42.0 {sec} (Abnormal) Range: 9.1-12.0 INR 4.1 (Abnormal) Range: 0.8-1.2 Comments: Client Requested Flag Reference interval is for non- anticoagulated patients. . Suggested INR therapeutic ra nge for Vitamin K antagonist therapy: Standard Dose (moderate intensity therapeutic range): 2.0 - 3.0 Higher intensity therapeutic range 2.5 - 3.5 39-Hzs-227074:42 PT INR 2.2 (Normal) PTP 23.1 s (Abnormal) Range: 11.9-14.4 96-Wav-429981:00 PT (Prothrobim Time) Comments: PATIENT NOT FASTINGPERFORMED BY: [facility] [id number] Information: [id number] (15757) Prothrombin Time 34.7 {sec} (Abnormal) Range: 9.1-12.0 INR 3.3 (Abnormal) Range: 0.8-1.2 Comments: Reference interval is for non-anticoagulated patients. . Suggested INR therapeutic range for Vitamin K anta gonist therapy: Standard Dose (moderate intensity therapeutic range): 2.0 - 3.0 Higher intensity therapeutic range 2.5 - 3.5 :09 PT (Prothrobim Time) Comments: PATIENT NOT FASTINGPERFORMED BY: [facility] [id number] Information: [id number] (01520) Prothrombin Time 23.6 {sec} (Abnormal) Range: 9.1-12.0 INR 2.3 (Abnormal) Range: 0.8-1.2 Comments: Reference interval is for non-anticoagulated patients. . Suggested INR therapeutic range for Vitamin K anta gonist therapy: Standard Dose (moderate intensity therapeutic range): 2.0 - 3.0 Higher intensity therapeutic range 2.5 - 3.5 31-Ewy-999876:25 PT (Prothrobim Time) Comments: PATIENT NOT FASTINGPERFORMED BY: [facility] [id number] Information: [id number] (26579) Prothrombin Time 11.9 {sec} (Normal) Range: 9.1-12.0 INR 1.1 (Normal) Range: 0.8-1.2 Comments: Reference interval is for non-anticoagulated patients. . Suggested INR therapeutic range for Vitamin K anta gonist therapy: Standard Dose (moderate intensity therapeutic range): 2.0 - 3.0 Higher intensity therapeutic range 2.5 - 3.5 47-Jiu-13451:39 AORTA Radiology Report See Note (Normal) Comments: [...] Adame M.D.November 22, 2012 at 9:42:03 AM [id number] Signed GP/GP If you are the referring physician and would like to consult with theradiologist who provided this interpretation , please contact Anoop Dumont at [phone]. If this radiologist is unavailable, youwill be directed to another radiologist to assist. If you are a patient with a question regarding this re port, pleasecontactyour referring physician directly. Professional Interpretation Provided By: [employer], Phone , These documents contain legally protected [...] or destructionofthese documents. Dictated on 11/22/1242 by Leatha LEON,Jessicaranscribed on 11/22/1245 by ITS IMPORTSign by Jaxon Adame MD on 11/22/12945 Sign by: ____ Jaxon Adame MD 18-Gok-133066:11 PT (Prothrobim Time) (62654) Comments: PATIENT NOT FASTINGPERFORMED BY: [facility] [id number] Prothrombin Time 14.9 {sec} (Abnormal) Range: 9.1-12.0 INR 1.4 (Abnormal) Range: 0.8-1.2 Comments: Reference interval is for non-anticoagulated patients. . Suggested INR therapeutic range for Vitamin K anta gonist therapy: Standard Dose (moderate intensity therapeutic range): 2.0 - 3.0 Higher intensity therapeutic range 2.5 - 3.5 97-Lol-89900:37 BRAIN W/WO CONTRAST Radiology Report See Note [...] Maki M.D.October 17, 2012 at 11:30:50 PM [phone] Signed AH/ If you are the referring physician and would like to consult with theradiologist who provided this interpretation, please contact Fidelia alejandra M.D. at . If this radiologist is unavailable,you will be directed to another radiologist to assist. If you are a patient with a question regarding this report, pleasecontactyour referr ing physician directly. Professional Interpretation Provided By: [employer], Phone , These documents contain legally protected [...] on 10/17/122337 Sign by: DEANGELO MAKI MD 5-Tuq-316833:27 HgA1C , Office (91545) HgA1C , Office 5.8 % (Normal) Range: 4.6 - 7.1 1-Crz-940716:23 PELVIC (NON ) Radiology Report See Note [...] Adame M.D.October 03, 2012 at 3:27:29 PM [id number] Signed GP/GP If you are the referring physician and would li ke to consult with theradiologist who provided this interpretation, please contact Anoop Dumont at [phone]. If this radiologist is unavailable, youwill be directed to another radiologist to assist. If you are a patient with a question regarding this report, pleasecontactyour referring physician directly. Professional Interpretation Provided By: [employer], Phone ,Fax These documents contain legally protected [...] destructionofthese documents. Dictated on 10/03/12 1412 by Jessica Adame MDranscribed on 10/03/12 1543 by ITS IMPORTSign by [...] Adame M.D.October 03, 2012 at 3:27:29 PM [id number] Signed GP/GP If you are the referring physician and would li ke to consult with theradiologist who provided this interpretation, please contact Anoop Dumont at [phone]. If this radiologist is unavailable, youwill be directed to another radiologist to assist. If you are a patient with a question regarding this report, pleasecontactyour referring physician directly. Professional Interpretation Provided By: [employer], Phone ,Fax These documents contain legally protected [...] destructionofthese documents. Dictated on 10/03/12 1412 by Jessica Adame MDranscribed on 10/03/12 154 by ITS IMPORTSign by Jaxon Adame MD on 10/03/12 154 Sign by: Jaxon Adame MD 30-Sep-20120:00 ABDOMEN/PELVIS WITH CONTRAST Radiology Report See [...] Mayberry M.D.September 30, 2012 at 7:30:49 PM [id number] Sig vadim TT/TT If you are the referring physician and would like to consult with theradiologist who provided this interpretation, please contact Kym Foley M.D. at [phone]. If this radiologist is unavailable, youwillbe directed to another radiologist to assist. If you are a patient with a question regarding this report, pleasecontactyour referring physician directly. Professional Interpretation Provided By: [employer], Phone , These documents contain legally protected and confidential healthinformation intended only for the use of the individual or entity rose mary nagy. If you are not the intended recipient, you are hereby notifiedthatany disclosure, copying, distribution, or other use of these documents isstrictly prohibited. If you have received this informatio n in error,pleasenotify the sender immediately and arrange for the return or destructionofthese documents. Dictated on 09/30/121806 by Shawanda LEON,TheresaTranscribed on 09/30/121937 by ITS IMPORTSign by Shawanda LEON,Kym on 09/30/121938 Sign by: Shawanda LEON,Kym 69-Dag-444326:49 PT (Prothrobim Time) Comments: PATIENT NOT FASTINGPERFORMED BY: [facility] [id number] Information: [id number] (58559) Prothrombin Time 14.2 {sec} (Abnormal) Range: 9.1-12.0 INR 1.4 (Abnormal) Range: 0.8-1.2 Comments: Reference interval is for non-anticoagulated patients. . Suggested INR therapeutic range for Vitamin K anta gonist therapy: Standard Dose (moderate intensity therapeutic range): 2.0 - 3.0 Higher intensity therapeutic range 2.5 - 3.5 5-Gvk-299026:22 PT (Prothrobim Time) Comments: PATIENT NOT FASTINGPERFORMED BY: [facility] [id number] Information: [id number] (10214) Prothrombin Time 30.3 {sec} (Abnormal) Range: 9.1-12.0 INR 3.0 (Abnormal) Range: 0.8-1.2 Comments: Reference interval is for non-anticoagulated patients. . Suggested INR therapeutic range for Vitamin K anta gonist therapy: Standard Dose (moderate intensity therapeutic range): 2.0 - 3.0 Higher intensity therapeutic range 2.5 - 3.5 :01 PTT (ACTIVATED PARTIAL Comments: PATIENT NOT FASTINGPERFORMED BY: [facility] [id number] THROMBOPLASTIN TIME) (31313) aPTT 46 {sec} (Abnormal) Range: 24-33 Comments: This test has not been validated for monitoring unfractionated heparintherapy. aPTT-based therapeutic ranges for unfractionated heparintherapy have not been established. For general guidelines onHeparin monitoring, refer to the [facility] Directory of Services. :01 PT (PROTHROMBIN TIME) (78351) Comments: PATIENT NOT FASTINGPERFORMED BY: [facility] [id number] Prothrombin Time 33.5 {sec} (Abnormal) Range: 9.1-12.0 INR 3.3 (Abnormal) Range: 0.8-1.2 Comments: Reference interval is for non-anticoagulated patients. . Suggested INR therapeutic range for Vitamin K anta gonist therapy: Standard Dose (moderate intensity therapeutic range): 2.0 - 3.0 Higher intensity therapeutic range 2.5 - 3.5 :01 PROLACTIN (51099) Comments: PATIENT NOT FASTINGPERFORMED BY: [facility] [id number] Prolactin 26.7 ng/mL (Abnormal) Range: 4.8-23.3 :01 METABOLIC PANEL, Comments: PATIENT NOT FASTINGPERFORMED BY: [facility] [id number] Information: [id number] COMPREHENSIVE (38129) ALT (SGPT) 34 [iU]/L (Abnormal) Range: 0-32 [...] Glucose, Serum 107 mg/dL (Abnormal) Range: 65-99 : TSH (37992) Comments: PATIENT NOT FASTINGPERFORMED BY: [employer] [facility] [employer] [id number] TSH 3.350 {uIU/mL} (Normal) Range: 0.450-4.500 : CBC (AUTO) (47655) Comments: PATIENT NOT FASTINGPERFORMED BY: [employer] [facility] [id number] Platelets 235 {x10E3/uL} (Normal) Range: 140-415 RDW 13.7 % (Normal) Range: 12.3-15.4 MCHC 32.4 g/dL (Normal) Range: 31.5-35.7 MCH 29.8 pg (Normal) Range: 26.6-33.0 MCV 92 fL (Normal) Range: 79-97 Hematocrit 39.5 % (Normal) Range: 34.0-46.6 Hemoglobin 12.8 g/dL (Normal) Range: 11.1-15.9 RBC 4.30 {x10E6/uL} (Normal) Range: 3.77-5.28 WBC 5.4 {x10E3/uL} (Normal) Range: 4.0-10.5 : TEST - SERUM Comments: PATIENT NOT FASTINGPERFORMED BY: [place] [address] [id number] QUANTITATIVE (HCG) (79329) hCG,Beta Subunit,Qual,Serum Negative m[iU]/mL (Normal) 37-Nce-177141:40 Prothrombin Time (PT) Comments: PERFORMED BY: [address] [id number] Prothrombin Time 23.2 {sec} (Abnormal) Range: 9.1-12.0 INR 2.2 (Abnormal) Range: 0.8-1.2 Comments: Reference interval is for non-anticoagulated patients. . Suggested INR therapeutic range for Vitamin K anta gonist therapy: Standard Dose (moderate intensity therapeutic range): 2.0 - 3.0 Higher intensity therapeutic range 2.5 - 3.5 6-Wbb-470348:02 PT (Prothrobim Time) Comments: PATIENT NOT FASTINGPERFORMED BY: [address] [id number] Information: [id number] (38619) Prothrombin Time 42.1 {sec} (Abnormal) Range: 9.1-12.0 INR 4.1 (Abnormal) Range: 0.8-1.2 Comments: Client Requested Flag Reference interval is for non- anticoagulated patients. . Suggested INR therapeutic ra nge for Vitamin K antagonist therapy: Standard Dose (moderate intensity therapeutic range): 2.0 - 3.0 Higher intensity therapeutic range 2.5 - 3.5 :23 PT (Prothrobim Time) Comments: PATIENT NOT FASTINGPERFORMED BY: [place] [address] [id number] Information: [id number] (02358) Prothrombin Time 13.8 {sec} (Abnormal) Range: 9.1-12.0 INR 1.3 (Abnormal) Range: 0.8-1.2 Comments: Reference interval is for non-anticoagulated patients. . Suggested INR therapeutic range for Vitamin K anta gonist therapy: Standard Dose (moderate intensity therapeutic range): 2.0 - 3.0 Higher intensity therapeutic range 2.5 - 3.5 69-Jhv-664413:29 PT (Prothrobim Time) Comments: PATIENT NOT FASTINGPERFORMED BY: [facility] [id number] Information: [id number] (56652) Prothrombin Time 13.1 {sec} (Abnormal) Range: 9.1-12.0 INR 1.2 (Normal) Range: 0.8-1.2 Comments: Reference interval is for non-anticoagulated patients. . Suggested INR therapeutic range for Vitamin K anta gonist therapy: Standard Dose (moderate intensity therapeutic range): 2.0 - 3.0 Higher intensity therapeutic range 2.5 - 3.5 20-Lfz-084935:10 PT (Prothrobim Time) Comments: PATIENT NOT FASTINGPERFORMED BY: [facility] [id number] Information: [id number] (84570) Prothrombin Time 15.3 {sec} (Abnormal) Range: 9.1-12.0 INR 1.5 (Abnormal) Range: 0.8-1.2 Comments: Reference interval is for non-anticoagulated patients. . Suggested INR therapeutic range for Vitamin K anta gonist therapy: Standard Dose (moderate intensity therapeutic range): 2.0 - 3.0 Higher intensity therapeutic range 2.5 - 3.5 :30 Rapid Flu (95085 x 2) Influenza A Ag negative (Normal) :45 PT (Prothrobim Time) Comments: PATIENT NOT FASTINGPERFORMED BY: [facility] [id number] Information: [id number] (48485) Prothrombin Time 16.4 {sec} (Abnormal) Range: 9.1-12.0 INR 1.6 (Abnormal) Range: 0.8-1.2 Comments: Reference interval is for non-anticoagulated patients. . Suggested INR therapeutic range for Vitamin K anta gonist therapy: Standard Dose (moderate intensity therapeutic range): 2.0 - 3.0 Higher intensity therapeutic range 2.5 - 3.5 5-Vag-557928:32 PT (Prothrobim Time) Comments: PATIENT NOT FASTINGPERFORMED BY: [facility]Asc[facility] [id number] Information: [id number] (37981) Prothrombin Time 21.6 {sec} (Abnormal) Range: 9.1-12.0 INR 2.1 (Abnormal) Range: 0.8-1.2 Comments: Reference interval is for non-anticoagulated patients. . Suggested INR therapeutic range for Vitamin K anta gonist therapy: Standard Dose (moderate intensity therapeutic range): 2.0 - 3.0 Higher intensity therapeutic range 2.5 - 3.5 :58 Prothrombin Time (PT) Comments: PERFORMED BY: [facility] [id number] Prothrombin Time 15.6 {sec} (Abnormal) Range: 9.1-12.0 INR 1.5 (Abnormal) Range: 0.8-1.2 Comments: Reference interval is for non-anticoagulated patients. . Suggested INR therapeutic range for Vitamin K anta gonist therapy: Standard Dose (moderate intensity therapeutic range): 2.0 - 3.0 Higher intensity therapeutic range 2.5 - 3.5 :28 PT INR 2.2 (Normal) PTP 22.4 s [...] 200-240 mg/dL Borderline >240 mg/dL High Risk 40-Rnn-024496:19 PT INR 2.1 (Normal) PTP 21.7 s (Abnormal) Range: 11.9-14.4 :01 PT INR 2.3 (Normal) PTP 24.0 s (Abnormal) Range: 11.9-14.4 17-Qjz-298893:15 PT INR 2.3 (Normal) PTP 24.3 s (Abnormal) Range: 11.9-14.4 :59 PT INR 1.9 (Normal) PTP 21.1 s (Abnormal) Range: 11.9-14.4 :01 CUUR URC See Note {CFU/mL} (Normal) Comments: COLONY COUNT 50,000- 80,000 ORGANISM 1: MIXED GRAM POSITIVE ORGANISMS :07 Urinalysis, Office (54388) UA - BILIRUBIN Negative (Normal) UA - BLOOD Negative (Normal) UA - GLUCOSE Negative (Normal) UA - KETONES Negative mg/dL (Normal) UA - LEUKOCYTE ESTERASE Small (Normal) UA - NITRITE Negative (Normal) UA - PH 6.5 (Normal) UA - PROTEIN Negative mg/dL (Normal) UA - SPECIFIC GRAVITY 1.010 (Normal) URINE UROBILINGN DENISE TIMED Normal mg/dL (Normal) 42-Dpx-452347:52 PT INR 1.6 (Normal) PTP 18.2 s (Abnormal) Range: 11.9-14.4 57-Zal-434035:12 PT INR 1.1 (Normal) PTP 13.6 s (Normal) Range: 11.9-14.4 :01 GALLBLADDER Radiology Report See Note (Normal) Comments: [...] size of the right kidney. The right oxgdewnetfwbid77.5 cm. Normal renal cortex. The renal co rtex measures 1.4 cm. Thereisno demonstrated renal mass or cyst. There are no demonstrated renalcalculi. There is no hydronephrosis. There is no ascites. IMPRESSION:Cholelithiasis.Fatty infiltration of the liver. To consult with a radiologist regarding this report, please call our 45Q3xahbuzl line @ Dictated on 09/25/11 0903 by Leatha LEON,Jessicaranscribed on 09/25/11 1014 by ITS IMPORTSign by Jaxon Adame MD on 09/25/11 1015 Sign by: Jaxon Adame MD HPYL < 0.9 U/mL Range: 0.0-0.8 28:52 (Normal) Comments: Negative <0.9 Indeterminate 0.9 - 1.0 Positive >1.0Performed at: [address] [id number] Director: Chloé Mccarthy MD, Phone: [phone] 1-Bza-676160:22 PT INR 2.0 (Normal) PTP 21.8 s (Abnormal) Range: 11.9-14.4 :32 PRO TIME INR 1.9 (Normal) PROTIME 21.3 s (Abnormal) Range: 11.9-14.4 :09 PRO TIME INR 2.2 (Normal) PROTIME 23.2 s (Abnormal) Range: 11.9-14.4 6-Jzb-225000:53 PRO TIME INR 1.6 (Normal) PROTIME 18.8 [...] Time) Comments: inr; PATIENT NOT FASTINGPERFORMED BY: [facility]Qeaqsi[facility] [id number] Information: [id number] (42767) Prothrombin Time 16.3 {sec} (Abnormal) Range: 9.1-12.0 [...] Report See Note (Normal) Comments: Exam Number: [id number] he patient is a 40-year-old female with [...] :15 HCG QUANT. < 1 m[iU]/mL (Normal) 66-Csh-668104:15 PROGESTER. 4317 0.9 ng/mL (Normal) Comments: Follicular phase 0.2 - 1.5Luteal phase 1.7 - 27.0Ovulation phase 0.8 - 3.0First trimester 8.8 - 48.6Second trimester 12.4 - 75.8Third trimester 58.5 - 222. 3Postmenopausal 0.1 - 0.8Performed at: [facility] [address] [id number] Director: Chloé Mccarthy MD, Phone: [phone] 01-Pof-289317:45 PRO TIME INR 3.3 (Normal) PROTIME 34.2 s (Abnormal) Range: 9.1-11.7 90-Ojm-390669:26 PT (Prothrobim Time) Comments: PATIENT NOT FASTINGPERFORMED BY: [employer] [address] [id number] Information: [id number] (12836) Prothrombin Time 41.4 {sec} (Abnormal) Range: 9.1-12.0 INR 4.0 (Abnormal) Range: 0.8-1.2 Comments: Client Requested Flag Reference interval is for non- anticoagulated patients. . Suggested INR therapeutic ra nge for Vitamin K antagonist therapy: Standard Dose (moderate intensity therapeutic range): 2.0 - 3.0 Higher intensity therapeutic range 2.5 - 3.5 8-Ybt-344974:51 CHEST, PA AND LATERAL (MT) Radiology Report See Note (Normal) Comments: Exam Number: [id number] CHEST PA AND LATERAL PA and lateral [...] abnormality is seen. Reported By: JAXON ADAME 4-Fip-067319:49 Influenza B Ag (32695) Comments: neg Influenza A Ag negative (Normal) 4-Voe-114737:49 Influenza A Ag (30685) Comments: neg Influenza A Ag negative (Normal) :56 PRO TIME INR 2.0 (Normal) PROTIME 20.8 s (Abnormal) Range: 9.1-11.7 :47 CHEST WITH CONTRAST Radiology Report See Note (Normal) Comments: Exam Number: [id number] CT SCAN OF THE CHEST WITH CONTRAST [...] 4.2-5.4 WBC 7.1 K/mm3 (Normal) Range: 4.4-11.0 :11 PRO TIME INR 1.7 (Normal) PROTIME 17.2 s (Abnormal) Range: 9.1-11.7 55-Gxb-487246:00 PRO TIME INR 2.2 (Normal) PROTIME 24.2 s (Abnormal) Range: 9.1-11.7 82-Cfu-640431:58 PRO TIME INR 1.8 (Normal) PROTIME 19.8 s (Abnormal) Range: 9.1-11.7 :55 REYNALDO-D [id number] Comments: FAX PT RESULTS REYNALDO-DIRECT SeeNote (Normal) Comments: Result: Negative :55 AT3 FUNCT 13289 103 % (Normal) Comments: FAX PT RESULTS Range: 75-135 Comments: Performed At: [facility] [address] [place], [place] [id number] At: [facility] [address] [place], [place] [id number] At: [facility] [place], [place] [id number] :55 C-REACTIVE PROT 11.40 mg/L (Abnormal) Comments: [...] (Normal) Range: 0-5 Comments: Result: 0-5 SEEN 70-Pjc-985062:55 ESR Comments: FAX PT RESULTS SED RATE 10 mm/h (Normal) Range: 0-20 61-Ted-714140:55 FACVL [id number] Comments: FAX PT RESULTS COMMENT Comment (Normal) Comments: Genetic counselors are available for health care providers to discuss results at [phone]. .Methodology:DNA analysis of the Factor V gene was performed by allele-specific PCR followed by gel electrophoresis. The diagnosticsensitivity and specificity is >99% for both. Molecular-based testing is highly accurate, but as in any laboratorytest, diagnostic errors may occur. All test results must becombined with clinical information for the most accurateinterpretation. .References:Jacob Lagunas (1996). Clin Lab Med 16:169-186. .Raad Castaneda, Ph.D.Tammi Velasco, Ph.D.Lindsay Roper hAlicia.Celeste Coronel, Ph.D.Malaika Madden, Ph.D.Shahla Brown M.D. . [...] in the workup for venous thrombosis include [id number] mutation in the factor II (prothrombin) gene,protein [...] mg/dL VLDL 26 mg/dL (Normal) Range: 5-40 :55 LUPUS [id number] Comments: FAX PT RESULTS DILUTE PT (dPT) [...] THROMBIN TIME 18.1 {sec} (Normal) Range: 0.0-20.0 36-Qcn-794555:55 MICROALB:CRE UR Comments: FAX PT RESULTS MALB:CREAT 33.1 {mg/g_CRE} (Abnormal) MICROALBUMIN,UR 38.4 mg/L (Normal) UR CREAT 115.7 mg/dL (Normal) 44-Sad-035540:55 MTHFR [id number] Comments: FAX PT RESULTS COMMENT Comment (Normal) Comments: Genetic counselors are available to discuss these results with health care providers at [phone] .The MTHFR enzyme is responsible for creating the circulatingform of folate. Folate is important in homocysteine regula-tion. Defects in the MTHFR enzyme can indirectly causeelevated homocysteine levels. The C677T mutation in theMTH FR gene can cause elevated homocysteine levels in is[place]-viduals with insufficient folate, particularly when thereare two mutations present. The U1745L mutation has not beenassociated with elevated homoc ysteine levels unless a B894Uuvzaujou is also present. Elevated serum homocysteine levelshave [...] f or the most accurateinterpretation. . MTHFR [id number] Comment (Normal) Comments: Result: P2638D/W9137KBsn copies of the same mutation (Y8231G/B5809D) identified .Interpretation: .This patient's sample was analyzed for the MTHFR brgsdstmxJ006B and O5924G. Two copies of the R4052F mutation wereidentified. Results for the C677T mutation were negative.Elevated homocyste ine levels have not been reported when twocopies of the O2419T mutation have been found. The diagnosisof hyperhomocysteinemia can not rely on DNA testing alonebut should take into consideration clinical findings andother studies, such as serum homocysteine levels. BecauseMTHFR mutations and their associated risks are inherited,genetic counseling and testing of at-risk family membersshould be consider ed. . 75-Trk-629738:55 PRO TIME Comments: FAX PT RESULTS INR 2.2 (Normal) PROTIME 24.2 s (Abnormal) Range: 9.1-11.7 :55 PROT C [id number] Comments: FAX PT RESULTS PROT C,[id number] 11 % (Abnormal) Range: 74-151 Comments: A [...] fluorouracil canalso reduce PC levels. PROTEIN C 93911 50 % (Abnormal) Range: 70-140 Comments: A [...] L-asparaginse or fluorouracil canalso reduce PC levels. 20-Efa-622450:55 PROT S [id number] Comments: FAX PT RESULTS PROTEIN S, FREE [...] the PS in blood is bound to V7z-yyljkewzufqxqv (C4b-BP). C4b-BP is and acute phase reactant whoseconcentration increases rapidly due to inflammatoryconditions. This serves to increase bound PS antigen andproduces a relative decrease of free PS antigen and PSactivit y. Conditions that can cause an increase in M1n-OGtpubgg include: , oral contraceptive use,diabetes mellitus, systemic [...] the PS in blood is bound to M3s-qynzrqrvieuxse (C4b-BP). C4b-BP is and acute phase reactant whoseconcentration increases rapidly due to inflammatoryconditions. This serves to increase bound PS antigen andproduces a relative decrease of free PS antigen and PSactivit y. Conditions that can cause an increase in C2y-EZhghvha include: , oral contraceptive use,diabetes mellitus, systemic lupus erythematosus, AIDS andrenal allograft rejection. PROTEIN S,TOTAL 73 % (Normal) Range: 58-150 RHEUMATOID FAC < 10 {IU/mL} (Normal) Comments: FAX PT RESULTS 2:55 TSH 2.52 {uIU/mL} Comments: FAX PT RESULTS 2:55 (Normal) Range: 0.358-3.74 VITAMIN B12 622 pg/mL (Normal) Comments: FAX PT RESULTS 2:55 Range: 254-1320 :57 PRO TIME INR 2.3 (Normal) PROTIME 25.4 [...] s (Abnormal) Range: 9.1-11.7 :35 PT/INR, Office ([id number]) INR 1.8 (Normal) :46 PT/INR, Office ([id number]) Comments: done BC INR 2.6 (Normal) :54 PT/INR, Office ([id number]) INR 1.2 (Normal) :00 CBCD,SMEAR DIFF ATYPICAL [...] 47-70 WBC 6.2 K/mm3 (Normal) Range: 4.4-11.0 01-Hcl-166359:00 COMP METABOLIC A/G 0.9 {RATIO} (Normal) Range: [...] T PROT 7.3 g/dL (Normal) Range: 6.4-8.2 65-Wtu-632548:00 LIPID CHOL 176 mg/dL (Normal) Comments: <200 [...] mg/dL VLDL 25 mg/dL (Normal) Range: 5-40 07-Cmg-228178:00 TSH 2.00 {uIU/mL} (Normal) Range: 0.358-3.74 34-Oua-666961:41 PT/INR, Office ([id number]) Comments: done>Wf. INR 1.6 (Normal) :56 PRO TIME INR 2.2 (Normal) PROTIME 24.4 s (Abnormal) Range: 9.1-11.7 :25 PT/INR, Office ([id number]) INR 2.8 (Normal) :40 PT/INR, Office ([id number]) INR 3.5 (Normal) :42 PT/INR, Office ([id number]) INR 3.5 (Normal) :38 CBCD,SMEAR DIFF BAND [...] Plan of Care Name Dates Details Instructions Rash : Follow up if no improvement or if symptoms worsen Indication: Rash Cellulitis of right breast : Cellulitis: skin infection Indication: Cellulitis of right breast BMI 39.0-39.9,adult : Eprescribed prescriptions (G8553) Indication: BMI 39.0-39.9,adult Bronchitis : Follow up if no improvement [...] Abnormal CT of the abdomen : Reviewed [place] [place]yer Letter Indication: Abnormal CT of the abdomen [...] 2 diabetes mellitus : Follow up in 1 / -- bs ck Indication: Uncontrolled type 2 [...] of breath Shortness of breath : Reviewed [place]yer Letter Indication: Shortness of breath Deep vein [...] BMI 50.0-59.9, adult Sinusitis, bacterial : Reviewed [place] [place]yer Letter Indication: Sinusitis, bacterial External otitis of both ears due to fungus : Eprescribed prescriptions (G8553) Indication: External otitis of both ears due to fungus Diastolic dysfunction : Continue Current Prescription(s) Indication: Diastolic dysfunction Diastolic dysfunction : Reviewed [place]yer Letter Indication: Diastolic dysfunction Nonsmoker : Eprescribed [...] Sleep disturbance Cardiac arrhythmia, unspecified : Reviewed [place] [place]yer Letter Indication: Cardiac arrhythmia, unspecified Intermittent palpitations : Reviewed Lab Indication: Intermittent palpitations Intermittent palpitations : Reviewed Diagnostic Tests Indication: Intermittent palpitations Intermittent palpitations : Reviewed [place]yer Letter Indication: Intermittent palpitations Nonsmoker : Eprescribed [...] Unspecified asthma with (acute) exacerbation : Reviewed [place] [place] Letter Indication: Unspecified asthma with (acute) exacerbation [...] HYPERCOAGULABLE STATE Other primary cardiomyopathies : Reviewed [place] [place]yer Letter Indication: Other primary cardiomyopathies Bronchitis : [...] VEINS SCHIZOPHRENIFORM DISORDER, CHRONIC STATE : Reviewed [place] [place]yer Letter: dr Egan Indication: SCHIZOPHRENIFORM DISORDER, CHRONIC [...] WEE[facility] Indication: Other primary cardiomyopathies Unspecified asthma with [...] vein thrombosis, unspecified laterality Amenorrhea : Reviewed [place] [place]yer Letter Indication: Amenorrhea Other primary cardiomyopathies : HTN/CAD Red Flags Indication: Other primary cardiomyopathies Other primary cardiomyopathies : Reviewed [place] [place]yer Letter Indication: Other primary cardiomyopathies Other primary cardiomyopathies : Reviewed Lab Indication: Other primary cardiomyopathies Acute bronchitis : *URI Treatment Indication: Acute bronchitis Acute bronchitis : Antibiotic Usage Education - Female Indication: Acute bronchitis Amenorrhea : Diet, Exercise, and Wt loss Indication: Amenorrhea Other primary cardiomyopathies : HTN/CAD Red Flags Indication: Other primary cardiomyopathies Planned Observations TSH ([id number])Indication: Type II diabetes mellitus, well controlled On: Request URINALYSIS, W/ MICRO ([id number])Indication: Type II diabetes mellitus, well controlled On: Request MICROALBUMIN: CREATININE RATIO ([id number]) AND ([id number])Indication: Type II diabetes mellitus, well controlled On: Request METABOLIC PANEL, COMPREHENSIVE ([id number])Indication: Type II diabetes mellitus, well controlled On: Request LIPOPROTEIN, BLD, BY NMR ([id number])Indication: Type II diabetes mellitus, well controlled On: Request LIPID PANEL ([id number])Indication: Type II diabetes mellitus, well controlled On: Request CBC W/AUTO DIFF WBC ([id number])Indication: Type II diabetes mellitus, well controlled On: 32-Qmw-881216:23 Request PARATHORMONE ([id number])Indication: Hyperprolactinemia On: 98-Nif-778215:01 Request CALCIFEDIOL ([id number])Indication: Vitamin D deficiency On: 95-Tar-877643:56 Request MICROALBUMIN: CREATININE RATIO ([id number]) AND ([id number])Indication: Type II diabetes mellitus, well controlled On: 12-Wkx-363813:56 Request METABOLIC PANEL, COMPREHENSIVE ([id number])Indication: Type II diabetes mellitus, well controlled On: 16-Czg-534267:56 Request LIPID PANEL ([id number])Indication: Type II diabetes mellitus, well controlled On: :56 Request CBC with auto diff ([id number])Indication: Type II diabetes mellitus, well controlled On: 67-Dgf-589578:56 Request PT (Prothrobim Time) ([id number])Indication: Chronic anticoagulation On: 12-Aug-2017 Request PT (Prothrobim Time) ([id number])Indication: Chronic anticoagulation On: 05-Aug-2017 Request PT (Prothrobim Time) ([id number])Indication: Chronic anticoagulation On: 29-Jul-2017 Request PT (Prothrobim Time) ([id number])Indication: Chronic anticoagulation On: 22-Jul-2017 Request PT (Prothrobim Time) ([id number])Indication: Chronic anticoagulation On: 15-Jul-2017 Request PT (Prothrobim Time) ([id number])Indication: Chronic anticoagulation On: 08-Jul-2017 Request PT (Prothrobim Time) ([id number])Indication: Chronic anticoagulation On: 01-Jul-2017 Request IRON & TOTAL IRON BINDING CAPACITY ([id number])Indication: Elevated LFTs On: 6-Hav-834953:38 Request TRANSFERRIN ([id number])Indication: Elevated LFTs On: 7-Czl-568535:38 Request FERRITIN ([id number])Indication: Elevated LFTs On: 7-Cci-466626:37 Request PT (Prothrobim Time) ([id number])Indication: Chronic anticoagulation On: 24-Jun-2017 Request PT (Prothrobim Time) ([id number])Indication: Chronic anticoagulation On: 17-Jun-2017 Request PT (Prothrobim Time) ([id number])Indication: Chronic anticoagulation On: 10-Jun-2017 Request URINALYSIS, W/ MICRO ([id number])Indication: Type II diabetes mellitus, well controlled On: 74-Wym-011939:43 Request MICROALBUMIN: CREATININE RATIO ([id number]) AND ([id number])Indication: Type II diabetes mellitus, well controlled On: 32-Ksv-401489:43 Request PT (Prothrobim Time) ([id number])Indication: Chronic anticoagulation On: 03-Jun-2017 Request PT (Prothrobim Time) ([id number])Indication: Chronic anticoagulation On: 27-May-2017 Request PT (Prothrobim Time) ([id number])Indication: Chronic anticoagulation On: 20-May-2017 Request PT (Prothrobim Time) ([id number])Indication: Chronic anticoagulation On: 13-May-2017 Request PT (Prothrobim Time) ([id number])Indication: Chronic anticoagulation On: 06-May-2017 Request PT (Prothrobim Time) ([id number])Indication: Chronic anticoagulation On: 29-Apr-2017 Request PT (Prothrobim Time) ([id number])Indication: Chronic anticoagulation On: 22-Apr-2017 Request PT (Prothrobim Time) ([id number])Indication: Chronic anticoagulation On: 15-Apr-2017 Request PT (Prothrobim Time) ([id number])Indication: Chronic anticoagulation On: 08-Apr-2017 Request PT (Prothrobim Time) ([id number])Indication: Chronic anticoagulation On: 01-Apr-2017 Request PT (Prothrobim Time) ([id number])Indication: Chronic anticoagulation On: 25-Mar-2017 Request PT (Prothrobim Time) ([id number])Indication: Chronic anticoagulation On: 18-Mar-2017 Request PT (Prothrobim Time) ([id number])Indication: Chronic anticoagulation On: 11-Mar-2017 Request METABOLIC PANEL, COMPREHENSIVE ([id number])Indication: SOB (shortness of breath) On: 37-Kce-015585:51 Request PT (Prothrobim Time) ([id number])Indication: Chronic anticoagulation On: 04-Mar-2017 Request PT (Prothrobim Time) ([id number])Indication: Chronic anticoagulation On: 25-Feb-2017 Request PT (Prothrobim Time) ([id number])Indication: Chronic anticoagulation On: 18-Feb-2017 Request PT (Prothrobim Time) ([id number])Indication: Chronic anticoagulation On: 11-Feb-2017 Request PT (Prothrobim Time) ([id number])Indication: Chronic anticoagulation On: 04-Feb-2017 Request PT (Prothrobim Time) ([id number])Indication: Chronic anticoagulation On: 28-Jan-2017 Request PT (Prothrobim Time) ([id number])Indication: Chronic anticoagulation On: 21-Jan-2017 Request PT (Prothrobim Time) ([id number])Indication: Chronic anticoagulation On: 14-Jan-2017 Request PT (Prothrobim Time) ([id number])Indication: Chronic anticoagulation On: 07-Jan-2017 Request PT (Prothrobim Time) ([id number])Indication: Chronic anticoagulation On: 31-Dec-2016 Request PT (Prothrobim Time) ([id number])Indication: Chronic anticoagulation On: 24-Dec-2016 Request PT (Prothrobim Time) ([id number])Indication: Chronic anticoagulation On: 17-Dec-2016 Request PT (Prothrobim Time) ([id number])Indication: Chronic anticoagulation On: 10-Dec-2016 Request PT (Prothrobim Time) ([id number])Indication: Chronic anticoagulation On: 03-Dec-2016 Request PT (Prothrobim Time) ([id number])Indication: Chronic anticoagulation On: 26-Nov-2016 Request PT (Prothrobim Time) ([id number])Indication: Chronic anticoagulation On: 05-Nov-2016 Request PT (Prothrobim Time) ([id number])Indication: Chronic anticoagulation On: 29-Oct-2016 Request PT (PROTHROMBIN TIME) ([id number])Indication: EMBOLISM AND THROMBOSIS OF OTHER SPECIFIED VEINS On: 1-Prw-734418:31 Request Comments: STAT Sjogren Antibodies- Anti-SS-A/Anti-SS-B ([id number]: Abnormal pulmonary function test On: :35 Request RHEUMATOID FACTOR-QUANT ([id number])Indication: Abnormal pulmonary function test On: :35 Request REYNALDO (ANTINUCLEAR ANTIBODY) ([id number])Indication: Abnormal pulmonary function test On: :35 Request LIPASE ([id number])Indication: Diarrhea On: 46-Qxb-78938:56 Request LIPASE ([id number])Indication: Diarrhea On: :56 Request AMYLASE ([id number])Indication: Diarrhea On: :56 Request BNTP ([id number])Indication: SOB (shortness of breath) on exertion On: :47 Request D-Dimer ([id number])Indication: SOB (shortness of breath) on exertion On: :47 Request LIPID PANEL ([id number])Indication: SOB (shortness of breath) on exertion On: :47 Request CALCIFEDIOL ([id number])Indication: SOB (shortness of breath) on exertion On: :47 Request TSH (THYROID STIMULATING HORMONE) ([id number])Indication: SOB (shortness of breath) on exertion On: :46 Request METABOLIC PANEL, COMPREHENSIVE ([id number])Indication: SOB (shortness of breath) on exertion On: :46 Request CBC, PLATELETS & AUT DIFF ([id number])Indication: SOB (shortness of breath) on exertion On: :46 Request OVA & PARASITE DIR SMEAR ([id number])Indication: Diarrhea On: :33 Request OCCULT BLOOD FECES SCREEN ([id number])Indication: Diarrhea On: :33 Request LEUKOCYTE COUNT, FECAL ([id number])Indication: Diarrhea On: :33 Request C-DIFFICILE, STOOL ([id number])Indication: Diarrhea On: :33 Request SHERITA CULTURE-STOOL ([id number])Indication: Diarrhea On: :33 Request PT (Prothrobim Time) ([id number])Indication: Deep vein thrombosis, unspecified laterality On: 04-Apr-2015 Request PT (Prothrobim Time) ([id number])Indication: Deep vein thrombosis, unspecified laterality On: 05-Mar-2015 Request PT (Prothrobim Time) ([id number])Indication: Deep vein thrombosis, unspecified laterality On: 03-Feb-2015 Request PT (Prothrobim Time) ([id number])Indication: Deep vein thrombosis, unspecified laterality On: 04-Jan-2015 Request PT (Prothrobim Time) ([id number])Indication: Deep vein thrombosis, unspecified laterality On: 05-Dec-2014 Request PT (Prothrobim Time) ([id number])Indication: Deep vein thrombosis, unspecified laterality On: 05-Nov-2014 Request URINE SHERITA CULTURE (DENISE COL COUNT) ([id number])Indication: Lower urinary tract infection On: 7-Pej-374839:40 Request SHERITA CULTURE-OTHER ([id number])Indication: Wound drainage (Renamed from Drainage from wound) On: 77-Ket-675949:45 Request URINE SHERITA CULTURE-IDENTIFICATN ([id number])Indication: Urinary frequency On: 3-Hux-003171:07 Request PT (Prothrobim Time) ([id number])Indication: Deep vein thrombosis, unspecified laterality On: 80-Grz-929985:16 Request Comments: Standing order HELICOBACTER PYLORI ANTIBODY ([id number])Indication: Epigastric pain On: 27-Pvf-130367:22 Request URINALYSIS, W/ MICRO ([id number])Indication: Other primary cardiomyopathies On: 60-Ofw-85405:54 Request TSH ([id number])Indication: Other primary cardiomyopathies On: 43-Bht-99707:53 Request METABOLIC PANEL, COMPREHENSIVE ([id number])Indication: Other primary cardiomyopathies On: 98-Zrk-23155:53 Request CBC WITH MANUAL DIFF ([id number])Indication: Other primary cardiomyopathies On: 72-Vok-41034:53 Request LIPID PANEL ([id number])Indication: Other primary cardiomyopathies On: 91-Oor-75620:53 Request PT (Prothrobim Time) ([id number])Indication: EMBOLISM AND THROMBOSIS OF OTHER SPECIFIED VEINS On: 08-Xsr-39148:46 Request Comments: inr PT (Prothrobim Time) ([id number])Indication: Deep vein thrombosis, unspecified laterality On: 8-Fbg-930993:35 Request Comments: inr CBC (AUTO) ([id number])Indication: SOB (shortness of breath) on exertion On: 0-Sie-410171:28 Request Folate ([id number])Indication: Fatigue On: 62-Pye-036294:59 Request SED RATE ERYTHROCYTE ([id number])Indication: Fatigue On: 46-Kcn-970301:59 Request VITAMIN B-12 (CYANOCOBALAMIN) ([id number])Indication: Fatigue On: 46-Kvh-510034:59 Request REYNALDO (ANTINUCLEAR ANTIBODY) ([id number])Indication: Fatigue On: 57-Cqc-230180:59 Request C-REACTIVE PROTEIN ([id number])Indication: Fatigue On: 61-Lcc-001030:59 Request METABOLIC PANEL, COMPREHENSIVE ([id number])Indication: Fatigue On: 52-Gfi-497117:59 Request RHEUMATOID FACTOR-QUANT ([id number])Indication: Fatigue On: 34-Lki-334291:59 Request URINALYSIS, W/ MICRO ([id number])Indication: Other primary cardiomyopathies On: 57-Eny-459367:58 Request MICROALBUMIN: CREATININE RATIO ([id number]) AND ([id number])Indication: Other primary cardiomyopathies On: 20-Mqz-166685:58 Request METABOLIC PANEL, COMPREHENSIVE ([id number])Indication: Other primary cardiomyopathies On: :58 Request LIPID PANEL ([id number])Indication: Other primary cardiomyopathies On: 36-Axx-084936:58 Request CBC WITH MANUAL DIFF ([id number])Indication: Other primary cardiomyopathies On: :58 Request TSH ([id number])Indication: Amenorrhea On: 47-Gwa-239088:57 Request PT (Prothrobim Time) ([id number])Indication: Deep vein thrombosis, unspecified laterality On: 06-Vth-207986:54 Request Comments: pt/inr - talked to dr zaman -- she will need lovenox inj prior to surgery when need to stop coumadin and restart after surgery PT/INR, Office ([id number])Indication: Deep vein thrombosis, unspecified laterality On: 76-Cxm-971157:12 Request PT/INR, Office ([id number])Indication: Deep vein thrombosis, unspecified laterality On: 1-Mdu-740951:26 Request TSH ([id number])Indication: Other primary cardiomyopathies On: 92-Ugr-141451:06 Request METABOLIC PANEL, COMPREHENSIVE ([id number])Indication: Other primary cardiomyopathies On: 11-Ghc-297098:06 Request LIPID PANEL ([id number])Indication: Other primary cardiomyopathies On: 44-Mwk-383116:06 Request CBC WITH MANUAL DIFF ([id number])Indication: Other primary cardiomyopathies On: 10-Ijs-925215:06 Request PT/INR, Office ([id number])Indication: EMBOLISM AND THROMBOSIS OF OTHER SPECIFIED VEINS On: 24-Fmf-37529:21 Request Comments: inr 2.8 PT/INR, Office ([id number])Indication: Deep vein thrombosis, unspecified laterality On: :19 Request TSH ([id number])Indication: Other primary cardiomyopathies On: :21 Request MICROALBUMIN URINE QUANT ([id number])Indication: Other primary cardiomyopathies On: :21 Request LIPID PANEL ([id number])Indication: Other primary cardiomyopathies On: : Request METABOLIC PANEL, COMPREHENSIVE ([id number])Indication: Other primary cardiomyopathies On: : Request CBC WITH MANUAL DIFF ([id number])Indication: Other primary cardiomyopathies On: :21 Request Planned Procedures Aerosol Treatment ([id number])By: On: 23-May-2018 Intent Mavis Baldwin Comments: Lungs clear after aerosol treatment. X-RAY CERVICAL SPINE, 1 VIEW On: 15-Feb-2018 Intent ([id number])By: Paty Catalan DO, DO, Kathleen CT SCAN OF ABDOMEN AND PELVIS On: 17-Dec-2017 Intent WITH CONTRAST ([id number])By: Paty Catalan DO, DO, Kathleen EMGBy: Paty Catalan DO On: 15-Dec-2017 Paty Francois DO Comments: bilateral lower extremity EMGBy: Paty Catalan DO On: 15-Dec-2017 Intent Paty LOCK Comments: bilateral upper extremity Nerve ConductionBy: Alayna LOCK, On: 15-Dec-2017 Intent Paty Morrow DO Comments: bilateral lower extremity Nerve ConductionBy: Alayna LOCK, On: 15-Dec-2017 Intent Paty Morrow DO Comments: bilateral upper extremity Ultrasound - Abdomen CompleteBy: On: 10-Dec-2017 Intent Zuleima Ingram CNP Toradol Injection, 30 mg On: 10-Dec-2017 Intent ([id number])By: Zuleima Ingram CNP ELECTROCARDIOGRAM, COMPLETE (ECG) On: 08-Dec-2017 Intent ([id number])By: Yara Chang Comments: nsr no acute chg / poor R wave progression adn nonspecific st flattening EMGBy: Paty Catalan DO On: 06-Sep-2017 Intent Paty LOCK Comments: upper and lower extremity Nerve ConductionBy: Alayna LOCK, On: 06-Sep-2017 Intent Paty Morrow DO Comments: upper and lower extremi X-RAY OF HAND, TWO VIEWS On: 06-Sep-2017 Intent ([id number])By: Paty Catalan DO Comments: Left Alayna DO, Paty X-RAY OF HAND, TWO VIEWS On: 06-Sep-2017 Intent ([id number])By: Paty Catalan DO Comments: Right Alayna DOPaty SCREENING DIGITAL TOMOSYNTHESIS On: 06-Sep-2017 Intent OF BREAST ([id number])By: Alayna DO, Paty Alayna DO, Paty X-RAY OF ANKLE, TWO VIEWS On: 27-Jul-2017 Intent ([id number])By: Alayna DO, Paty Alayna DO, Paty X-RAY OF ANKLE, TWO VIEWS On: 27-Jul-2017 Intent ([id number])By: Alayna LOCK, Paty Alayna DO, Paty X-RAY OF FOOT, TWO VIEWS On: 27-Jul-2017 Intent ([id number])By: Paty Catalan DO Comments: left Alayna DO, Paty X-RAY OF FOOT, TWO VIEWS On: 27-Jul-2017 Intent ([id number])By: Paty Catalan DO Comments: left Paty Catalan DO FLAT PLATE OF ABDOMEN ([id number])By: On: 12-Jul-2017 Intent Zuleima Ingram CNP E Ultrasound - LiverBy: Alayna LOCK, On: 16-Jun-2017 Intent Paty Morrow DO Rocephin Injection, 2 Gram On: 02-Jun-2017 Intent ([id number])By: Paty Catalan DO, DO, Kathleen Aerosol Treatment ([id number])By: On: 02-Jun-2017 Intent Paty Catalan DO, DO, Comments: srill inspir and exp wheeze and junky but less cough nad olivia a./e Paty Radiology - Chest- PA and LatBy: On: 02-Jun-2017 Intent Paty Catalan DO AlaynaPaty hagan DO CT SCAN OF CHEST WITH CONTRAST On: 02-Jun-2017 Intent ([id number])By: Paty Catalan DO Comments: fu on PE Paty Catalan DO Doppler Ultrasound OtherBy: On: 02-Jun-2017 Intent Paty Catalan DO, DO, Comments: b/l lower extremities-- fu on dvt Paty Aerosol Treatment ([id number])By: On: 25-May-2017 Intent Zuleima Ingram CNP E Spirometry ([id number])By: Alayna LOCK, On: 19-Mar-2017 Intent Paty Morrow DO Comments: restriction noted Solu- Medrol Injection, 125mg On: 19-Mar-2017 Intent ([id number])By: Paty Catalan DO Comments: Lot:[id number]:06/2019Dose:125mgRoute:imSite:l armGiven By:NICHOLAS signed Paty Catalan DO Aerosol Treatment ([id number])By: On: 19-Mar-2017 Intent Paty Catalan DO, DO, Comments: more a/e no noise Paty Flu Vaccine (Quadrivalent) On: 15-Mar-2017 Intent 73086Vj: Paty Catalan DO Comments: Lot:[id number]:12/13/17Amt:0.5mlRoute:IMSite: L DltdGiven By: CHAITANYA Reis signed Paty Catalan DO COMPUTED TOMOGRAPHY ANGIOGRAPHY On: 09-Mar-2017 Intent OF CHEST FOR PULMONARY EMBOLISM ([id number])By: Mavis Baldwin VENOUS DOPPLER LOWER EXTREMITY On: 09-Mar-2017 Intent ([id number])By: Mavis Baldwin Comments: R/O DVT Aerosol Treatment ([id number])By: On: 30-Nov-2016 Intent Paty Catalan DO, DO, Comments: more a/e - less wheeze --- Paty Spirometry (75362)By: Alayna LOCK, On: 30-Nov-2016 Intent Paty Morrow DO Comments: moderate restriction & obstruction Aerosol Treatment ([id number])By: On: 01-Jun-[address] Intent [address]PN CT - Chest (IV Contrast On: 08-Apr-2016 Intent Needed)By: Robel Sanon MD CT - Chest (IV Contrast On: 08-Apr-2016 Intent Needed)By: Robel Sanon MD Comments: Has Ct scan scehduled without contrast on 04/13/16. PLEASE DO CT SCAN WITH IV CONTRAST CHEST XRAY, PA & LATERAL On: 08-Apr-2016 Intent ([id number])By: Robel Sanon MD CT - Chest (Without Contrast)By: On: 02-Apr-2016 Intent Robel Sanon MD Comments: high resolution Flu Vaccine (Quadrivalent) On: 19-Mar-2016 Intent 96277Qo: Paty Catalan DO Comments: FLUlot: [id number]:11/11site:Lt deltoidroute:IMdose:.5mlDEMICK, [place] Paty Catalan DO Echo CompleteBy: Robel Sanon MD On: 12-Mar-2016 Intent Comments: [facility] PFT - CompleteBy: Robel Sanon MD On: 12-Mar-2016 Intent Radiology - Foot - RightBy: Fab On: 12-Mar-2016 Intent Robel LEON Comments: pain in rt toe after fall. 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, Bess IMMUNIZ ADMNILinnette, 1 VAC, SNGL/COMBO On: 23-Apr-2014 Intent ([id number])By: Yanet Lee LPN Comments: [id number] syringeL Dltd, IMAS, LPNABN and VIS signed FLU VAC, SPLIT, >3 YEARS, On: 23-Apr-2014 Intent INTRAMUSC ([id number])By: Yanet Lee LPN Gzrdmsuls-Spi-Wbuu ([id number])By: On: 11-Sep-2013 Intent Paty Catalan DO, DO, Kathleen Aerosol Treatment ([id number])By: On: 24-Aug-2013 Intent Coty Scott MD Eprescribed prescriptions On: 24-Aug-2013 Intent ([id number])By: Coty Scott MD IMMUNIZ ADMNIN, 1 VAC, SNGL/COMBO On: 15-Mar-2013 Intent ([id number])By: Apolonia Alvarez Comments: Lot:[id number]:01/14/14Dose:0.5mLRoute:imSite:r armGiven By:NICHOLAS signed PNEUM VAC ADLT/IMUMNOSPR, On: 15-Mar-2013 Intent SBC/INTRM ([id number])By: Apolonia Alvarez FLU VAC, SPLIT, >3 YEARS, On: 15-Mar-2013 Intent INTRAMUSC (57053)By: Antonio, Comments: Lot:[id number]:Dose:0.5mLRoute:IMSite:L DltdGiven By:NICHOLAS signed Apolonia IMMUNIZ ADMNIN, 1 VAC, SNGL/COMBO On: 15-Mar-2013 Intent ([id number])By: Apolonia Alvarez Ultrasound - AortaBy: Alayna LOCK, On: 24-Oct-2012 Intent Paty Catalan DOPaty MRI - Brain (IV Contrast On: 04-Oct-2012 Intent Needed)By: Alayna LOCK, Paty Morrow DO Anoscopy ([id number])By: Alayna LOCK, On: 28-Sep-2012 Intent Paty Catalan DOPaty Comments: iritated mucosa filled wiht stool which limited view and blood in vault CT - Abdomen & Pelvis with iv On: 28-Sep-2012 Intent contrastBy: Alayna DO, Paty Alayna DO Paty Ultrasound - PelvisBy: Alayna LOCK, On: 28-Sep-2012 Intent Paty Morrow DO Nerve ConductionBy: Juan Jose 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 No s/sx of infiltration. Tolerated well without difficulty. THER/PROPH/DIAG IV INF, INIT On: 18-Jan-2012 Intent ([id number])By: Coty Scott MD Ultrasound - GallbladderBy: On: 21-Sep-2011 Intent Paty Catalan DO, DO, Kathleen Venous Doppler - LeftBy: Tyler On: 04-Sep-2011 Intent Coty LEON Comments: leg, wet read FLU VAC, SPLIT, >3 YEARS, On: 01-Apr-2011 Intent INTRAMUSC ([id number])By: Master WELCH, Comments: Lot #[id number]//Site-right deltoidgiven by: REBEKAH Bhatia IMMUNIZ ADMNILinnette, 1 VAC, SNGL/COMBO On: 01-Apr-2011 Intent ([id number])By: Dunia Thao LPN Pulse Oximetry ([id number])By: Sandeep On: 05-Sep-2010 Intent Sammie WELCH Comments: sp02- 90% on room air Aerosol Treatment ([id number])By: On: 05-Sep-2010 Intent Sammie Hopkins LPN Pulse Oximetry ([id number])By: Juan Jose On: 01-Sep-2010 Intent Zuleima CLAROS Aerosol Treatment ([id number])By: On: 01-Sep-2010 Intent Ciesa Zuleima CLAROS IMMUNIZ ADMNIN, 1 VAC, SNGL/COMBO On: 10-Apr-2010 Intent ([id number])By: Paty Catalan DO Comments: Lot #[id number]/11Site-L arm IMDose 0.5mlgiven by:REBEKAH PEDRO DO, Kathleen FLU VAC, SPLIT, >3 YEARS, On: 10-Apr-2010 Intent INTRAMUSC ([id number])By: Paty Catalan DO, DO, Kathleen PHYSICAL THERAPY EVALUATION On: 24-Mar-2010 Intent ([id number])By: Juan Jose CLAROS [facility] - Left KneeBy: Juan Jose On: 24-Mar-2010 Intent HARLANZuleima Aerosol Treatment ([id number])By: On: 17-Mar-2010 Intent Juan Jose CLAROS Bess Pulse Oximetry ([id number])By: Juan Jose On: 17-Mar-2010 Intent HARLAN Zuleima Kaye Aerosol Treatment ([id number])By: Cachorro On: 01-Nov-2009 Intent Brigid LOCK Pulse Oximetry ([id number])By: Cachorro On: 01-Nov-2009 Intent Brigid LOCK Comments: 87- after treatment Solu -Medrol Injection, 125 mg On: 01-Nov-2009 Intent ([id number])By: Laurie Reyna Comments: Lot:[id number]:125mgRoute:IMSite:Left Gluteus Given by: YAHIR Salgado Pulse Oximetry ([id number])By: On: 01-Nov-2009 Intent Olivia Batista Comments: 89% Radiology - Chest- PA and LatBy: On: 31-Oct-2009 Intent Paty Catalan DO, DO, Kathleen Pulse Oximetry ([id number])By: Alayna On: 31-Oct-2009 Paty Francois DO, DO, Kathleen Comments: 90% Aerosol Treatment ([id number])By: On: 31-Oct-2009 Paty Miles DO, DO, Kathleen Solu- Medrol Injection, 125mg On: 31-Oct-2009 Intent ([id number])By: Paty Catalan DO Comments: Lot #[id number]/1/2012Site-left hipDose- 125 mggiven by:Paty Pelayo DO CT - Chest with PE ProtocolBy: On: 29-Aug-2009 Intent Paty Catalan DO, DO, Paty Echo CompleteBy: Alayna LOCK, On: 29-Aug-2009 Intent Paty Morrow DO EKG ([id number])By: Alayna LOCK, On: 29-Aug-2009 Intent Paty Catalan DO Paty Bio Z ([id number])By: Alayna LOCK, On: 29-Aug-2009 Intent Paty Morrow DO Spirometry ([id number])By: Alayna LOCK, On: 29-Aug-2009 Intent Paty Catalan DO Paty Pulse Oximetry ([id number])By: Alayna On: 29-Aug-2009 Intent Paty LOCK DO, Kathleen Inhaler Demo ([id number])By: Cachorro LCOK, On: 06-Aug-2009 Intent Brigid A Radiology - Chest- PA and LatBy: On: 06-Aug-2009 Intent Lupillo Ivory DOa A Spirometry ([id number])By: Cachorro LOCK, On: 06-Aug-2009 Intent Brigid A Comments: done km- good effort and curve mildd restriction Aerosol Treatment ([id number])By: Cachorro On: 06-Aug-2009 Intent DO Brigid A Comments: done km Pulse Oximetry ([id number])By: Cachorro On: 06-Aug-2009 Intent DO Brigid A Comments: post aerosol 95% Pulse Oximetry ([id number])By: On: 06-Aug-2009 Intent Olivia Batista Comments: 94% Bio Z ([id number])By: Alayna LOCK, On: 15-May-2009 Intent Paty Morrow DO Comments: see scanned doc -- no changes n meds stable Doppler Ultrasound OtherBy: On: 27-Sep-2008 Intent Paty Catalan DO, DO, Comments: do in 3 months Paty Bio Z ([id number])By: Alayna LOCK, On: 13-Sep-2008 Intent Paty Morrow DO Comments: normal EKG ([id number])By: Alayna LOCK, On: 13-Sep-2008 Intent Paty Morrow DO Comments: nsr no acute changes IMMUNIZ ADMNIN, 1 VAC, SNGL/COMBO On: 09-May-2008 Intent ([id number])By: Paty Catalan DO, DO, Kathleen FLU VAC, SPLIT, >3 YEARS, On: 09-May-2008 Intent INTRAMUSC ([id number])By: Alayna LOCK, Comments: injection given in left deltoid. pt tolerated. see scanned paper Paty Morrow DO Pulse Oximetry ([id number])By: Mast On: 28-Feb-2008 Intent BECCA, Shelby MELGAR, 1 VAC, SNGL/COMBO On: 13-Apr-2007 Intent ([id number])By: Paty Catalan DO, DO, Kathleen FLU VAC, SPLIT, >3 YEARS, On: 13-Apr-2007 Intent INTRAMUSC ([id number])By: Alayna LOCK, Comments: lot # [id number] exp- 10/03 LDLT patient tolerated well Paty Morrow DO EKG ([id number])By: Alayna LOCK, On: 03-Dec-2006 Intent Paty Morrow DO Comments: nsr no acute ischemic changes Bio Z ([id number])By: Alayna LOCK, On: 03-Dec-2006 Intent Paty Morrow DO Comments: normal svr and co Planned Medications INJECTION, CEFTRIAXONE SODIUM, PER 250 MG Ordered: 18-Jan-2012 Pending Tyler LEON, Coty Bah INJECTION, CEFTRIAXONE SODIUM, PER 250 MG Ordered: 02-Jun-2017 Pending Paty Catalan DO, DO, Kathleen INJECTION, KETOROLAC TROMETHAMINE, PER 15 MG Ordered: 10-Dec-2017 Pending Zuleima Ingram CNP INJECTION, METHYLPREDNISOLONE SODIUM SUCCINATE, UP TO 125 MG Ordered: 19-Mar-2017 Pending Paty Catalan DO, DO, Kathleen Instructions Name Dates Details BMI 39.0-39.9,adult : How to access health information online Indication: BMI 39.0-39.9,adult BMI 39.0-39.9,adult : How to access health information online - Detail Indication: BMI 39.0-39.9,adult Cellulitis of right breast : Patient Instructions Indication: Cellulitis of right breast Nonsmoker : How to access health information [...] (dysfunctional uterine bleeding) Encounters Office Visit On: 13-Jun-2018 13:25 Encounter Reason: Rash - Onset was 2 day(s) ago. Note for Rash: Symptoms started a few days ago with red spot on right breast. Not painful, No drainage, fever, chills, CP, SOB. No lumps or bumps. Has not tried anything on it.Encounter Diagnosis: End: 13-Jun-2018 13:47 BMI 39.0-39.9,adult, Nonsmoker, Rash, Cellulitis of right breast [facility] Office Visit On: 23-May-2018 9:35 Encounter Reason: [...] re. 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 The symptoms have been associated with caffiene use daily, caffeine use daily and tried OTC meds.Encounter Diagnosis: Sleep apnea, Sleep disturbance [facility] Phone Encounter On: 24-Dec-2014 8:36 Encounter Diagnosis: Unspecified Diagnosis End: 24-Dec-2014 8:38 [facility] Office Visit On: 23-Nov-2014 10:54 Encounter Reason: Follow up hospital - Reason for ER visit: note: (At [facility] not sure of the dates).Encounter Diagnosis: Bipolar [...] for inc lude All identified problems below, high blood pressure [...] 12-Nov-2006 11:53 Payers [employer] 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
--- OUTSIDE RECORDS SUMMARY | 2018-09-19 12:43 | XMS RPT_ITS | Continuity of Care Document ---
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 Name: SIMI NIELSEN Rep #: [id number] : 1970 47 From: Mamadou Bonds MD [...] Date Dictated: 06/17/17 1356 Date Transcribed: 06/19/17910 Supervisor Cigarette Making Department: Signed 17-Jun-2017 Chest WITH Contrast Result: Comments: See Note; NOTES: [facility] Imaging Services [address] [place] [address] Chest WITH Contrast MR#: [id number] Acct: [id number] Name: SIMI NIELSEN Rep #: [id number] : 1970 F 47 From: Shannen Hong MD PCP: Paty Catalan DO Status: REG CLI Study: Chest WITH Contrast Date of Exam: 06/17/17 Exam# [id number] Ordering Dr: Paty Catalan DO STUDY: CTA [facility] REASON FOR EXAM: Female, 47 years [...] Service support , CC: Paty Catalan DO Supervisor Cigarette Making Department: Signed 02-Jun-2017 Chest PA and Lateral Result: Comments: See Note; NOTES: [facility] Imaging Services [address] [place] [address] Chest PA and Lateral MR#: [id number] Acct: [id number] Name: GIASIMI Amanda Rep #: [id number] : 1970 F 47 From: Jaxon Adame MD PCP: Paty Catalan DO Status: REG CLI Study: Chest PA and Lateral Date of Exam: 06/02/17 Exam# [id number] Ordering Dr: Paty Catalan DO STUDY: X [...] Jaxon Adame MD at 16:03 EST Tel [phone], Service support , CC: Paty Catalan DO Supervisor Cigarette Making Department: Signed 09-Mar-2017 Emergency Department Summary Result: Comments: See Note; NOTES: [facility] Medical Records Department [address] [place] [address] Emergency Department Summary 03/09/172027 MR#: [id number] Acct: [id number] Name: SIMI NIELSEN Rep #: [id number] : 1970 47 From: Stone Felix MD [...] problems, contact your Primary Care Provider. Call [facility] ([phone]) or report to the closest Emergency Room. Koby l 911 if necessary. 03/09/172029 <Electronically signed by Stone Felix MD> Date Stone Felix MD Cosigner Signature (If Indica osmin): Date CC: Paty Catalan DO 09-Mar-2017 Venous Duplex Lower Extremity Result: Comments: See Note; NOTES: [facility] Cardiovascular Services [address] [place] [address] Venous Duplex US - Osmin Extrem 03/09/17 1458 MR#: [id number] Acct: [id number] Name: SIMI NIELSEN Rep #: [id number] : 1970 47 From: Mamadou Bonds MD Attending Dr: Mavis Baldwin, RESOURCE ROOM SPECIAL EDUCATION TEACHER-C Status: REG CLI Ordering Dr: Mavis Baldwin RESOURCE ROOM SPECIAL EDUCATION TEACHER-C Date: 03/09/17 Location: CT Sex: F C [...] is compressible. noncompressible. Procedure Exam performed in [facility]. The exam was diagnostic. A preliminary report [...] Paty Catalan M.D. Performed By: Behzad Guzman T 03/09/17 1537 Date Mamadou Bonds MD CC: EDIS Baldwin; Paty Catalan DO Date Dictated: 03/09/17 1458 Date Transcribed: 03/09/171536 Supervisor Cigarette Making Department: Signed 09-Mar-2017 CTA Chest W/WO Contrast Result: Comments: See Note; NOTES: [facility] Imaging Services [address] [place] [address] CTA Chest W/WO Contrast MR#: [id number] Acct: [id number] Name: SIMI NIELSEN Rep #: [id number] : 1970 F 47 From: Olivia Ramirez MD PCP: Paty Catalan DO Status: REG CLI Study: CTA Chest W/WO Contrast Date of Exam: 03/09/17 Exam# [id number] Ordering Dr: Baldwin, Mavis RESOURCE ROOM SPECIAL EDUCATION TEACHER-C STUDY : CTA CHEST REASON FOR EXAM: [...] Olivia Ramirez MD at 17:41 EDT Tel [phone], Service support , Fax N.B. : Dr. Garcia , Covering Physician, confirmed on 03/09/2017 18:33:20 (ET) that the referring physician received the results and did not require a verbal consultation. CC: EDIS Baldwin; Paty Catalan DO Supervisor Cigarette Making Department: Signed 18-Dec-2016 Sinus/Facial Bone Result: Comments: See Note; NOTES: [facility] Imaging Services [address] [place] [address] Syddana 4d Sinus/Facial Bone MR#: [id number] Acct: [id number] Name: SIMI NIELSEN Rep #: [id number] : 1970 F 46 From: Pedro Luis Palafox PCP: Paty Catalan DO Status: REG CLI Study: Sinus/Facial Bone Date of Exam: 12/18/16 Exam# [id number] Ordering Dr: Navid Sherman MD [facility] DY: CT MAXILLOFACIAL SINUSES REASON [...] CC: Harry Sherman MD; Paty Catalan DO Supervisor Cigarette Making Department: Signed 29-Oct-2016 Echo, Complete w/ Contrast Result: Comments: See Note; NOTES: [facility] Cardiovascular Services [address] [place] [address] Echo Complete W/ Contrast 10/29/16 1402 MR#: [id number] Acct: [id number] Name: SIMI CABAN ACE Rep #: [id number] : 1970 46 From: Marshall Ford MD Attending Dr: Norman Burton MD Status: REG CLI Ordering Dr: Norman Burton MD Date: 10/29/16 Location: [facility] Sex: F C Admitted: Reason For [...] Paty Catalan M.D. Performed By: Clarisa Joshi [facility] 10/29/161948 Date __ Marshall Ford MD CC: Paty Catalan DO; Norman Burton MD Date Dictated: 10/29/16 1402 Date Transcribed: 10/29/161948 Supervisor Cigarette Making Department: Signed 22-Jul-2016 Chest PA and Lateral Result: Comments: See Note; NOTES: [facility] Imaging Services [address] [place] [address] Verdana 4d Chest PA and Lateral MR#: [id number] Acct: [id number] Name: SIMI NIELSEN Rep #: [id number] : 1970 F 46 From: Linda Méndez MD PCP: Paty Catalan DO Status: REG ER Study: Chest PA and Lateral Date of Exam: 07/22/16 Exam# [id number] Ordering Dr: Humberto Galvez MD STUDY: X-RAY [...] at 20:24 EST Tel , Service support [phone], CC: Paty Catalan DO; Humberto Galvez MD Supervisor Cigarette Making Department: Signed 13-Apr-2016 CTA Chest W/WO Contrast Result: Comments: See Note; NOTES: [facility] Imaging Services [address] [place] [address] Verdana 4d CTA Chest W/WO Contrast MR#: [id number] Acct: [id number] Name: SIMI NIELSEN Rep #: [id number] : 1970 F 46 From: Santos Burnett PCP: Paty Catalan DO Status: REG CLI Study: CTA Chest W/WO Contrast Date of Exam: 04/13/16 Exam# [id number] Ordering Dr: Robel Sanon DY: CTA CHEST [...] MD at 5:40 EDT , Service support [phone], CC: Paty Sanno Supervisor Cigarette Making Department: Signed 08-Apr-2016 Chest PA and Lateral Result: Comments: See Note; NOTES: [facility] Imaging Services [address] [place] [address] Verdana 4d Chest PA and Lateral MR#: [id number] Acct: [id number] Name: SIMI NIELSEN Rep #: [id number] : 1970 F 46 From: Flex Martinez MD PCP: Paty Catalan DO Status: REG CLI Study: Chest PA and Lateral Date of Exam: 04/08/16 Exam# [id number] Ordering Dr: Robel Sanon STUDY: X-RAY CHEST [...] FACR at 15:01 EDT , Service support [phone], CC: Paty Sanon Supervisor Cigarette Making Department: Signed 01-Apr-2016 Pulmonary Function Report Comp Result: Comments: See Note; NOTES: [facility] Pulmonary Services/Neurology [address] [place] [address] Pulmonary Function Test (Comp) MR#: [id number] Acct: [id number] Name: SIMI NIELSEN Rep #: [id number] : 1970 46 From: Louie Chaudhary MD Referring Dr: Robel Sanon Status: REG CLI Ordering Dr: Robel Sanon Date: 03/31/16 Location: [facility] Sex: F C DATE OF SERVICE: 03/31/2016 [...] C: Robel Sanon M.D. T: NTS JOB: [id number] 04/01/16 0726 <Electronically signed by Louie Chaudhary MD> Date Louie Chaudhary MD CC: Louie Chaudhary MD; Paty Sanon Date Dictated: 03/31/161617 Date Transcribed: 03/31/161617 Supervisor Cigarette Making Department: Signed 30-Mar-2016 Emergency Department Summary Result: Comments: See Note; NOTES: [facility] Medical Records Department [address] [place] [address] Emergency Department Summary MR#: [id number] Acct: [id number] Name: HOWARD NIELSEN Rep #: [id number] : 1970 46 From: Gabriel Menard DO PCP: Paty Catalan DO Status: [facility] ER DATE OF SERVICE: 03/21/2016 CHIEF COMPLAINT: [...] The patient was given a script for Enderlin for severe pain. She did not want crutches. Instructed to follow up with Dr. Catalan within next 5-7 days. DISPOSITIO N: Discharged home in stable condition. Gabriel Menard DO T: NTS JOB: [id number] 03/30/16 1652 <Electronically signed by Gabriel Menard DO> Date ____ Gabriel Menard DO Cosigner Signature (If Indicated): Date CC: Paty Catalan DO Date Dictated: 03/21/16 1037 Date Transcribed: 03/21/16 1037 Supervisor Cigarette Making Department: Signed 21-Mar-2016 Venous Duplex Lower Extremity Result: Comments: See Note; NOTES: [facility] Cardiovascular Services [address] [place] [address] Venous Duplex US, Unilateral 03/21/16 1002 MR#: [id number] Acct: [id number] Name: SIMI NIELSEN Rep #: [id number] : 1970 46 From: Mamadou Bonds MD [...] Dictated: 03/21/16 1002 Date Transcribed: 03/21/16 173 Supervisor Cigarette Making Department: Signed 21-Mar-2016 Discharge Instruction Result: Comments: See Note; NOTES: [facility] Medical Records Department [address] [place] [address] Discharge Instruction 03/21/16 1034 MR#: [id number] Acct: [id number] Name: SIMI SUTTON Rep #: [id number] : 1970 46 From: Gabriel Menard DO PCP: Paty Catalan DO Status: REG ER ED Disposition - Plan for ED Patient: Chief Complaint: Lower Extremity Injury Instructions: ED Muscle Strain, Extremity Prescriptions: Hydrocodone Bitart/Apap 5-325 [Enderlin 5/325] 1 - 2 tablet PO Q4H PRN PRN #12 tablet PRN Reason: Pain Referrals: Paty Catalan DO [Primary Care Provider] - 5 -7 Days What to do if you have Problems For any increased pain, shortness of breath, bleeding, nausea or vomiting, chest pain, or any unexpected problems, contact your doctor. Call [facility] ([phone]) or report to the closest Emergency Room. Call 911 if necessary. 03/21/16 1035 <Electronically signed by Gabriel Menard DO> Date ___ Gabriel Menard DO Cosigner Signature (If Indicated): Date CC: Paty Catalan DO 18-Mar-2016 Echo, Complete w/ Contrast Result: Comments: See Note; NOTES: [facility] Cardiovascular Services [address] [place] [address] Echo Complete W/ Contrast 03/18/16 0853 MR#: [id number] Acct: [id number] Name: SIMI GUERRIER Rep #: [id number] : 1970 46 From: Frederick Butt MD Attending Dr: Robel Sanon Status: REG CLI Ordering Dr: Robel Sanon Date: 03/18/16 Location: [facility] Sex: F C Admitted: Reason Fo [...] Dictated: 03/18/16 0853 Date Transcribed: 03/18/16 1105 Supervisor Cigarette Making Department: Signed 12-Mar-2016 Foot min 3 Views Result: Comments: See Note; NOTES: [facility] Imaging Services [address] [place] [address] Verdana 4d Foot min 3 Views MR#: [id number] Acct: [id number] Name: SIMI NIELSEN Rep #: [id number] : 1970 F 46 From: Jaxon Adame MD PCP: Paty Catalan DO Status: REG CLI Study: Foot min 3 Views Date of Exam: 03/12/16 Exam# [id number] Ordering Dr: Robel Sanon STUDY: X-R AY [...] Jaxon Adame MD at 13:59 EDT Tel [phone], Service support [phone], CC: Paty Catalan DO; Robel Fab Supervisor Cigarette Making Department: Signed 27-Aug-2015 12 Lead Electrocardiogram Result: Comments: See Note; NOTES: [facility] Cardiovascular Services [address] [place] [address] 12 Lead EKG 08/25/152241 MR#: [id number] Acct: [id number] Name: SIMI CABAN ACE Rep #: [id number] : 1970 45 From: Mark Underwood MD [...] Int : 450 ms Normal sinus rh [facility] Normal ECG Confirmed by CARLOS LEON, MARK ([id number]), technical writer and editor NAYANA SAWANT (56) on 08/27/2015 12:58:37 PM Referred By: NS Confirmed By:MARK UNDERWOOD MD 08/27/15 1258 Date Mark Underwood MD CC: Paty Catalan DO Date Dictated: 08/25/152241 Date Transcribed: 08/25/152241 Supervisor Cigarette Making Department: Signed 25-Aug-2015 Chest PA and Lateral Result: Comments: See Note; NOTES: [facility] Imaging Services [address] [place] [address] Verdana 4d Chest PA and Lateral MR#: [id number] Acct: [id number] Name: SIMI SUTTON Rep #: [id number] : 1970 F 45 From: Alycia Lara DO PCP: Paty Catalan DO Status: DEP ER Study: Chest PA and Lateral Date of Exam: 08/25/15 Exam# [id number] Ordering Dr: Richard Abreu MD STUDY: X-RAY [...] at 23:27 EST Tel , Service support [phone], RAD/Chest PA and Lateral IMPRESSION: Normal x-ray examination of the chest. Electronically Signed: Alycia Lara DO at 23:27 EST Tel , Service support [phone], CC: Paty Catalan DO; Richard Abreu MD Supervisor Cigarette Making Department: Signed 31-Dec-2014 12 Lead Electrocardiogram Result: Comments: See Note; NOTES: [facility] Cardiovascular Services [address] [place] [address] 12 Lead EKG 12/28/14 0049 MR#: [id number] Acct: [id number] Name: NIELSENYUNIOR SA Rep #: [id number] : 1970 44 From: Mark Underwood MD [...] ECG Confirmed by MARK UNDERWOOD MD ([id number]), technical writer and editor NAYANA SAWANT (56) on 12/31/2014 1:38:48 PM Referred By: IAN Confirmed By:MARK UNDERWOOD MD 12/31/14 1338 Da te Mark Underwood MD CC: Paty Catalan DO Date Dictated: 12/28/1448 Date Transcribed: 12/28/1448 Supervisor Cigarette Making Department: Signed 28-Dec-2014 Emergency Department Summary Result: Comments: See Note; NOTES: [facility] Medical Records Department [address] [place] [address] Emergency Department Summary MR#: [id number] Acct: [id number] Name: SIMI STRAUSS Rep #: [id number] : 1970 44 From: Humberto Jaimes MD PCP: Paty Catalan DO Status: REG ER DATE OF SERVICE: 12/28/2014 CHIEF COMPLAINT: Abnormal behavior, hallucinations. H ISTORY OF PRESENT ILLNESS: This is a 44-year-old female with history of bipolar disorder, schizophrenia, presents with abnormal behavior, hallucinations. Apparently, the mother [employer] because the patient was babbling. She was [...] Crisis. Humberto Jaimes MD T: NTS JOB: [id number] 12/28/14 0121 <Electronically signed by Humberto Jaimes MD> Date Humberto becker MD CC: Paty Catalan DO Date Dictated: 12/28/1454 Date Transcribed: 12/28/1454 Supervisor Cigarette Making Department: Signed 28-Dec-2014 Brain/Head without Contrast Result: Comments: See Note; NOTES: [facility] Imaging Services [address] [place] [address] CAT Scan Report MR#: [id number] Acct: [id number] Name: SIMI NIELSEN Rep #: [id number] : 1970 F 44 From: Rachid Donald MD PCP: Paty Catalan DO Status: [facility] ER Study: Brain/Head without Contrast Date of Exam: 12/28/14 Exam# [id number] Ordering Dr: Humberto Jaimes MD STUDY: CT [...] CC: Paty Catalan DO; Humberto Jaimes MD Supervisor Cigarette Making Department: Signed 13-Nov-2014 Emergency Department Summary Result: Comments: See Note; NOTES: [facility] Medical Records Department [address] [place] [address] Emergency Department Summary MR#: [id number] Acct: [id number] Name: SIMI STRAUSS Rep #: [id number] : 1970 44 From: Humberto Galvez MD PCP: Paty Catalan DO Status: [facility] ER DATE OF SERVICE: 11/10/2014 METHOD OF ARRIVAL: By EMS. CHIEF COMPLAINT: Hallucinati ons. PRIMARY CARE: Paty Catalan D.O. PSYCHIATRIST: Taina Painter M.D. MARTINEZ HISTORY: This is a 44-year-old female with history of schizophrenia, bipolar, prior DVT, CHF, comes in by [facility] w ith hallucinations. Family called [facility] for this reason. This has apparently been going on for several days, getting worse. The patient denies being depressed or suicidal, but she recently just got ou t of [place] last week, for being suicidal. They did [...] CENTER Paty Owusu MD T: NTS JOB: [id number] 11/13/14 0906 <Electronically signed by Humberto Galvez MD> Date Humberto Galvez MD CC: Paty Catalan DO; Taina Painter MD Date Dictated: 11/11/1431 Date Transcribed: 11/11/1431 Supervisor Cigarette Making Department: Signed 12-Nov-2014 Emergency Department Summary Result: Comments: See Note; NOTES: [facility] Medical Records Department [address] [place] [address] Emergency Department Summary MR#: [id number] Acct: [id number] Name: SIMI STRAUSS Rep #: [id number] : 1970 44 From: Eleazar Shipley MD PCP: Paty Catalan DO Status: [facility] ER DATE OF SERVICE: 10/29/2014 CHIEF COMPLAINT: Suicidal and depressed. HISTORY OF P RESENT ILLNESS: A 44-year-old female who suffers from depression, was admitted to [facility] in June for depression and suicidal [...] structure several weeks ago, was admitted to [place] at that time for injury she sustained. [...] CENTER Paty Catalan DO T: NTS JOB: [id number] 11/12/14 2342 <Electronically signed by Eleazar Shipley MD> Date Eleazar Shipley MD CC: Paty Catalan DO Date Dictated: 10/29/14100 Date Transcribed: 10/29/14100 Supervisor Cigarette Making Department: Signed 11-Nov-2014 Emergency Department Summary Result: Comments: See Note; NOTES: [facility] Medical Records Department [address] [place] [address] Emergency Department Summary MR#: [id number] Acct: [id number] Name: SIMI STRAUSS Rep #: [id number] : 1970 44 From: Humberto Drake MD PCP: Paty Catalan DO Status: REG ER DATE OF SERVICE: 11/10/2014 ADDENDUM: The patient was endorsed to me by the [facility] physician. The patient was evaluated by mental health, who agreed that the patient requires admission. I signed the patient's pink-slip and transfer forms, and the patient will be admitted for psyc hosis. Humberto Drake M.D. T: NTS JOB: [id number] 11/11/14 0430 <Electronically signed by Humberto Drake MD> Date Humberto armando MD CC: Paty Catalan DO Date Dictated: 11/11/14150 Date Transcribed: 11/11/14150 Supervisor Cigarette Making Department: Signed 10-Nov-2014 Brain/Head without Contrast Result: Comments: See Note; NOTES: [facility] Imaging Services [address] [place] [address] CAT Scan Report MR#: [id number] Acct: [id number] Name: SIMI NIELSEN Rep #: [id number] : 1970 F 44 From: Dayne Ocasio MD PCP: Paty Catalan DO Status: REG ER Study: Brain/Head without Contrast Date of Exam: 11/10/14 Exam# [id number] Ordering Dr: Humberto Galvez MD [facility] DY: CT BRAIN WITHOUT CONTRAST [...] at 23:45 E DT , Service support [phone], CC: Paty Catalan DO; Humberto Galvez MD Supervisor Cigarette Making Department: Signed 29-Oct-2014 Emergency Department Summary Result: Comments: See Note; NOTES: [facility] Medical Records Department [address] [place] [address] Emergency Department Summary MR#: [id number] Acct: [id number] Name: SIMI SUTTON Rep #: [id number] : 1970 44 From: Eleazar Shipley MD PCP: Paty Catalan DO Status: REG RCR DATE OF SERVICE: 10/29/2014 CHIEF COMPLAINT: Suicidal and depressed. HISTORY OF P RESENT ILLNESS: A 44-year-old female who suffers from depression, was admitted to [facility] in June for depression and suicidal [...] structure several weeks ago, was admitted to [place] at that time for injury she sustained. [...] CENTER Paty Catalan DO T: NTS JOB: [id number] 10/29/14 0349 <Electronically signed by Eleazar Shipley MD> Date Eleazar Shipley MD CC: Paty Catalan DO Date Dictated: 10/29/14100 Date Transcribed: 10/29/14100 Supervisor Cigarette Making Department: Signed 23-Oct-2014 Emergency Department Summary Result: Comments: See Note; NOTES: [facility] Medical Records Department [address] [place] [address] Emergency Department Summary MR#: [id number] Acct: [id number] Name: SIMI SUTTON Rep #: [id number] : 1970 44 From: Osiris Rueda PCP: Paty Catalan DO Status: [facility] ER DATE OF SERVICE: 10/10/2014 HISTORY OF [...] center. I spoke with Dr. Sawant at [place] at the patient's request for transfer there. He did request that I discuss i f the patient may go home with the ER. This was discussed with the patient and her family at the bedside. DISPOSITION: Transfer. DIAGNOSES: 1. Head injury. 2. L2, L3 transverse process fractures . MD Anahi Patel C: Paty Catalan DO T: NTS JOB: [id number] 10/23/14 2337 <Electronically signed by Osiris Rueda > Date Osiris Rueda CC: Paty Catalan DO Date Dictated: 10/10/146 Date Transcribed: 10/10/14425 Supervisor Cigarette Making Department: Signed 10-Oct-2014 Ribs Uni Min 3V w/PA Chest Result: Comments: See Note; NOTES: [facility] Imaging Services [address] [place] [address] Radiology Report MR#: [id number] Acct: [id number] Name: SIMI NIELSEN Rep #: [id number] : 1970 F 44 From: Pedro Luis Palafox PCP: Paty Catalan DO Status: DEP ER Study: Ribs Uni Min 3V w/PA Chest Date of Exam: 10/10/14 Exam# [id number] Ordering Dr: Osiris Rueda STUDY: X-RAY - [...] MD at 7:43 EDT , Service support [phone], RAD/Ribs Uni Min 3V w/PA Chest IMPRESSION: RIBS: Normal x-ray examination of the ribs. CHEST: Normal x-ray examination of the chest. Electronical ly Signed: Pedro Luis Palafox MD at 7:43 EDT , Service support [phone], CC: Osiris Catalan DO Supervisor Cigarette Making Department: Signed 10-Oct-2014 Abdomen/Pelvis W IV Cont ONLY Result: Comments: See Note; NOTES: [facility] Imaging Services [address] [place] [address] CAT Scan Report MR#: [id number] Acct: [id number] Name: SIMI NIELSEN Rep #: [id number] : 1970 F 44 From: Pedro Luis Palafox PCP: Paty Catalan DO Status: REG ER Study: Abdomen/Pelvis W IV Cont ONLY Date of Exam: 10/10/14 Exam# [id number] Ordering Dr: Osiris Rueda Y: CT ABDOMEN [...] MD at 3:30 EDT , Service support [phone], CC: Osiris Rueda; Paty Catalan DO Supervisor Cigarette Making Department: Signed 10-Oct-2014 Brain/Head without Contrast Result: Comments: See Note; NOTES: [facility] Imaging Services [address] [place] [address] CAT Scan Report MR#: [id number] Acct: [id number] Name: SIMI NIELSEN Rep #: [id number] : 1970 F 44 From: Pedro Luis Palafox PCP: Paty Catalan DO Status: REG ER Study: Brain/Head without Contrast Date of Exam: 10/10/14 Exam# [id number] Ordering Dr: Osiris Rueda STUDY: CT BRAIN [...] at 3:17 EDT Tel , Service support [phone], CC: Osiris Rueda; Paty Catalan DO Supervisor Cigarette Making Department: Signed 07-Oct-2014 12 Lead Electrocardiogram Result: Comments: See Note; NOTES: [facility] Cardiovascular Services [address] [place] [address] 12 Lead EKG 10/02/14 1925 MR#: [id number] Acct: [id number] Name: HOWARD NIELSEN Rep #: [id number] : 1970 44 From: Frederick Butt MD [...] Normal ECG Confirmed by FREDERICK BUTT ([id number]), technical writer and editor NAYANA SAWANT ([id number]) on 10/04/2014 10: 16:38 AM Referred By: CLEMENTE Confirmed By:FREDERICK BUTT 10/04/14 1016 Date Frederick Butt MD CC: Paty Catalan DO Date Dictated: 10/02/141924 Date Transcribed: 10/02/141924 Supervisor Cigarette Making Department: Signed 05-Oct-2014 Emergency Department Summary Result: Comments: See Note; NOTES: [facility] Medical Records Department [address] [place] [address] Emergency Department Summary MR#: [id number] Acct: [id number] Name: SIMI SUTTON Rep #: [id number] : 1970 44 From: Gabriel Menard DO [...] condition. Gabriel Menard DO T: NTS JOB: [id number] 10/05/14 1039 <Electronically signed by Garbiel Menard DO> Date __ Gabriel Menard DO CC: Paty Catalan DO Date Dictated: 10/02/142118 Date Transcribed: 10/02/142118 Supervisor [employer] Making Department: Signed 02-Oct-2014 Discharge Instruction Result: Comments: See Note; NOTES: [facility] Medical Records Department [address] [place] [address] Discharge Instruction 10/02/142114 MR#: [id number] Acct: [id number] Name: SIMI NIELSEN Rep #: [id number] : 1970 44 From: Gabriel Menard DO [...] problems, contact your doctor. Call [facility] ( [phone]) or report to the closest Emergency Room. Call 911 if necessary. 10/02/14 2115 < Electronically signed by Gabriel Menard DO> Date Gabriel Menard DO Cosigner Signature (If Indicated): Date CC: Paty Catalan DO 02-Oct-2014 CTA Chest W/WO Contrast Result: Comments: See Note; NOTES: [facility] Imaging Services [address] [place] [address] CAT Scan Report MR#: [id number] Acct: [id number] Name: SIMI NIELSEN Rep #: [id number] : 1970 F 44 From: Stuart Wagner DO PCP: Paty Catalan DO Status: REG ER Study: CTA Chest W/WO Contrast Date of Exam: 10/02/14 Exam# [id number] Ordering Dr: Gabriel Menard DO STUDY: CTA [...] Stuart Wagner DO at 20:50 EDT Tel [phone], Service support [phone], CC: Paty Catalan DO; Gabriel Menard DO Supervisor [employer]arette Making Department: Signed 23-Mar-2014 EKG (36283) Comments: nsr no acute chg Result: [MEASUREMENTS ANALYSIS] Date of Test: 03/23/2014 14:44:22; Heart Rate: 70; UT Interval: 146; QRS: 96; QT Interval: 414; Corrected QT Interval (QTc): 431; P Wave [place]o: 41; QRS [place]: -1; T Wave [place]: 22; Blood Pressure: 128/64 [ECG DIAGNOSTIC STATEMENTS] Date of Test: 03/23/2014 14:44:22; Summary: Sinus Rhythm WITHIN NORMAL LIMITS 06-Nov-2013 Emergency Department Summary Result: Comments: See Note; NOTES: [facility] Medical Records Department [address] [place] [address] Emergency Department Summary MR#: [id number] Acct: [id number] Name: SIMI SUTTON Rep #: [id number] : 1970 43 From: Marshall Ricardo MD PCP: Paty Catalan DO Status: [facility] ER DATE OF SERVICE: 10/22/2013 CHIEF COMPLAINT: [...] update. 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 Department: Signed 22-Oct-2013 Discharge Instruction Result: Comments: See Note; NOTES: [facility] Medical Records Department [address] [place] [address] Discharge Instruction 10/22/13 1136 MR#: [id number] Acct: [id number] Name: SIMI NIELSEN Rep #: [id number] : 1970 43 From: Marshall Ricardo MD [...] No CXR Result: Comments: See Note; NOTES: [facility] Imaging Services [address] [place] [address] Radiology Report MR#: [id number] Acct: [id number] Name: SIMI NIELSEN Rep #: [id number] : 1970 F 43 From: Jaxon Adame MD PCP: Paty Catalan DO Status: REG CLI Study: Ribs Unil 2V No CXR Date of Exam: 09/11/13 Exam# [id number] Ordering Dr: Paty Catalan DO S TUDY: [...] M.D. at 14:42 EDT , Service support [phone], CC: Paty Catalan DO Supervisor [employer] Making Department: Signed Immunization Name Dates Details Influenza (3 years and up) on: 13-Apr-2007 Comments: lot # [id number] exp- 10/03 LDLT patient tolerated well Influenza (3 [...] smoker Vital Signs Date Test Result Details 32-Bto-09369:37 Temperature 97.5 f Pulse 83 /min Comments: [...] kg/m2 Body Surface Area Calculated 2.08 m2 74-Tog-636272:04 Temperature 97.4 f Comments: Method: Temporal Pulse [...] kg/m2 Body Surface Area Calculated 2.12 m2 61-Mtt-293773:24 Temperature 97.8 f Pulse 84 /min Comments: [...] kg/m2 Body Surface Area Calculated 2.12 m2 48-Tfp-002545:23 Pulse 79 /min Comments: Pattern: Regular Respiration [...] kg/m2 Body Surface Area Calculated 2.2 m2 14-Kbt-010590:28 Temperature 97.6 f Pulse 88 /min Comments: [...] kg/m2 Body Surface Area Calculated 2.2 m2 46-Wna-761434:18 Pulse 75 /min Comments: Pattern: Regular Respiration [...] kg/m2 Body Surface Area Calculated 2.21 m2 48-Exf-091479:00 Pulse 98 /min Comments: Pattern: Regular Respiration [...] Height 0 in Head Circumference 0.00 cm 37-Kfg-850475:48 Pulse 64 /min Comments: Pattern: Regular Respiration [...] Order Date: 03/15/18How was Urine Obtained? [facility] [address] [place], [address] MUCUS, URINE 0 SEEN {/hpf} [...] Urine Drug Screen (VISTA) Comments: Order Date: 03/15/18[facility] [address] [place], [address] THC NEGATIVE (Normal) PCP NEGATIVE [...] TESTING MUST BE ORDERED SEPARATELY. USE TESTMNEMONIC: [facility] 23-Vnp-516593:51 Venous Blood Gas Comments: [facility] LaboratoryPoint of Wacg[address] [place] [address] ISTAT 26 [...] LIZ (Normal) :39 Alcohol, Blood (Medical)-Serum Comments: [facility] [address] [place], [address] SERUM ETOH < 3.0 mg/dL (Normal) Comments: The serum:whole blood ethanol ratio is approximately 1.14and varies slightly with hematocrit.Medical Alcohol reference interval and critical value innon-tolerant individuals; 50 - 100 Impairment 100 Intoxication 100 - 250 Severe Poisoning 250 - 400 Deep/possible fatal coma 16-Ubm-910132:39 CBC W/Diff, Automated Comments: [facility] [address] [place], [address] Absolute Lymph 3.19 {X10_3/ul} (Normal) [...] 4.2-5.4 WBC 8.4 K/mm3 (Normal) Range: 4.4-11.0 32-Nta-637468:39 Comprehensive Metabolic Profil Comments: [facility] [address] [place], [place], [address] GAP 12 (Normal) Range: 5-15 CO2 24.0 [...] Comments: Please note revised GLUCOSE reference range ygifjdtip90/02/2018. 94-Dyp-630038:39 Lactic Acid Comments: Yes/No query for Sepsis Lactate Rule [facility] [address] [place], [address] LACTIC ACID 2.4 mmol/L (Abnormal) Range: 0.4-2.0 Comments: Critical Result(s) Called at: 20:33:03 03/15/2018 by: Jose VIVAR 00-Ivn-817933:39 Partial Thromboplast Time Comments: [facility] [address] [place], [address] PTT 33.9 s (Normal) Range: 24.1-36.2 44-Jxo-232946:39 Prothrombin Time w/INR Comments: [facility] [address] [place], [place], [id number] INR 1.1 (Normal) PROTIME 13.9 s (Normal) Range: 11.7-14.9 :39 Troponin-I Comments: [facility] [address] [place], [place], [address] TROPONIN-I < 0.015 ng/mL (Normal) Comments: TROPONIN-I EXPECTED VALUES <0.045 Negative 0.045 - 0.590 Consistent with Cardiac Damage > OR = 0.600 Critical Value Not every elevated troponin is indicative of AL. T hesevalues should be used with clinical judgement in examiningthe patient's clinical picture for diagnosis. To establisha diagnosis of AL versus myocardial injury, there must be ademonstrated rise and/ or fall in the troponin values, inaddition to ischemic symptoms, EKG changes, new regionalwall motion abnormality, and/or angiographical evidence. PLEASE NOTE: REFERENCE RANGES EDITED 11/08/1715-Mar-201833-Lrq-933888:24 Bedside Glucose Comments: [facility] LaboratoryPoint of Bjxs[address] [place], [place] [id number] BEDSIDE GLU 92 mg/dL (Normal) Range: 70-110 Comments: MANAGEMENT OF PATIENT CARE PER NURSING PROTOCOL 28-Feb-20183:57 Bedside Glucose Comments: [facility] Ahnv[address] [place], [place] [id number] BEDSIDE GLU 115 mg/dL (Abnormal) Range: 70-110 Comments: MANAGEMENT OF PATIENT CARE PER NURSING PROTOCOL :15 Urinalysis, Complete Comments: How was Urine Obtained? [facility] [address]ivyf[address] [place], [address] HYALINE CAST 5-10 SEEN {/lpf} (Normal) [...] (Normal) :15 Urine Drug Screen (VISTA) Comments: [facility] [address] [place], [address] THC NEGATIVE (Normal) PCP NEGATIVE [...] TESTING MUST BE ORDERED SEPARATELY. USE TESTMNEMONIC: [facility] :00 Partial Thromboplast Time Comments: [facility] [address] [place], [address] PTT 28.4 s (Normal) Range: 24.1-36.2 :00 Prothrombin Time w/INR Comments: [facility] [address] [place], [address] INR 1.1 (Normal) PROTIME 14.3 s (Normal) Range: 11.7-14.9 :55 Alcohol, Blood (Medical)-Serum Comments: [facility] [address] [place], [place], [address] SERUM ETOH < 3.0 mg/dL (Normal) Comments: The serum:whole blood ethanol ratio is approximately 1.14and varies slightly with hematocrit.Medical Alcohol reference interval and critical value innon-tolerant individuals; 50 - 100 Impairment 100 Intoxication 100 - 250 Severe Poisoning 250 - 400 Deep/possible fatal coma :55 CBC W/Diff, Automated Comments: [facility] [address] [place], [place], [id number] Absolute Lymph 1.41 {X10_3/ul} (Normal) Range: 0.83-4.51 [...] Range: 4.4-11.0 28-Feb-20181:55 Comprehensive Metabolic Profil Comments: [facility] [address] [place], [place], [address] GAP 10 (Normal) Range: 5-15 CO2 26.0 [...] A.D.A. criteria.Please note revised GLUCOSE reference range hqiwgegct70/02/2018. 2-Ggr-908115:45 Alcohol, Blood (Medical)-Serum Comments: [facility] [address] [place], [place], [phone] SERUM ETOH 5.0 mg/dL (Normal) Comments: The serum:whole blood ethanol ratio is approximately 1.14and varies slightly with hematocrit.Medical Alcohol reference interval and critical value innon-tolerant individuals; 50 - 100 Impairment 100 Intoxication 100 - 250 Severe Poisoning 250 - 400 Deep/possible fatal coma 2-Ati-716789:45 Basic Metabolic Profile (BMP) Comments: [facility] [address] [place], [place], [address] GAP 10 (Normal) Range: 5-15 CO2 26.0 [...] A.D.A. criteria.Please note revised GLUCOSE reference range lvtmynnjf61/02/2018. 3-Pwq-634148:45 CBC W/Diff, Automated Comments: [facility] [address] [place], [place], [address] Absolute Lymph 3.05 {X10_3/ul} (Normal) Range: 0.83-4.51 [...] 4.2-5.4 WBC 9.6 K/mm3 (Normal) Range: 4.4-11.0 3-Zhm-626941:45 ,Serum,hCG Quali. Comments: [facility] [address] [facility] [place], [address] HCGSQUAL NEGATIVE {Negative} (Normal) Range: 0-9 Nonpreg HCG Qual triggr 2 m[iU]/mL (Normal) 5-Yho-854394:40 Urinalysis, Complete Comments: Order Date: 02/26/18How was Urine Obtained? [facility] [address]yj[address] [facility], [address] MUCUS, URINE 1+ {/hpf} (Normal) [...] CLARITY Sl. Cloudy (Normal) COLOR Yellow (Normal) 6-Arv-063630:40 Urine Drug Screen (VISTA) Comments: [facility] [address]lkcjucz4[address] [facility] [place], [address] THC NEGATIVE (Normal) PCP NEGATIVE [...] TESTING MUST BE ORDERED SEPARATELY. USE TESTMNEMONIC: [facility] 12-Smh-198929:50 Urinalysis, Complete Comments: Order Date: 02/23/18Has pt arrived? YHow was Urine Obtained? CLEAN [facility] [address] [facility] [place], [address] MUCUS, URINE 2+ {/hpf} (Normal) [...] (Normal) CLARITY Clear (Normal) COLOR Yellow (Normal) 79-Smi-998066:50 Urine Drug Screen (VISTA) Comments: [facility] [address] [facility] [place], [address] THC NEGATIVE (Normal) PCP NEGATIVE [...] TESTING MUST BE ORDERED SEPARATELY. USE TESTMNEMONIC: [facility] 93-Oqs-580076:15 Alcohol, Blood (Medical)-Serum Comments: [facility] [address] [place], [address] SERUM ETOH < 3.0 mg/dL (Normal) Comments: The serum:whole blood ethanol ratio is approximately 1.14and varies slightly with hematocrit.Medical Alcohol reference interval and critical value innon-tolerant individuals; 50 - 100 Impairment 100 Intoxication 100 - 250 Severe Poisoning 250 - 400 Deep/possible fatal coma 01-Pwb-110192:15 CBC W/Diff, Automated Comments: [facility] [address] [place], [address] Absolute Lymph 2.67 {X10_3/ul} (Normal) [...] 4.2-5.4 WBC 10.7 K/mm3 (Normal) Range: 4.4-11.0 39-Bgl-234992:15 Comprehensive Metabolic Profil Comments: [facility] [address] [place], [address] GAP 9 (Normal) Range: 5-15 [...] Comments: Please note revised GLUCOSE reference range fygfcxfat45/02/2018. 63-Vti-776194:15 ,Serum,hCG Quali. Comments: [facility] [address] [place], [address] HCGSQUAL NEGATIVE {Negative} (Normal) Range: 0-9 Nonpreg HCG Qual triggr 2 m[iU]/mL (Normal) 21-Roh-72689:07 Bedside Glucose Comments: [facility] LaboratoryPoint of [address] [place] [address] BEDSIDE GLU 107 mg/dL (Normal) Range: 70-110 Comments: MANAGEMENT OF PATIENT CARE PER NURSING PROTOCOL 25-Vbi-33997:00 COLON BIOPSY (CHOOSE See Note (Normal) Comments: [facility] [address] [place], [address] SITE) Comments: Patient: SIMI NIELSEN : 1970 (47/F) Acct Num: [id number] Phys: Kajal LEON,[place] Unit Num: [id number] Loc: EN Specimen: [id number] Received: 02/14/18 - 1323 Spec Type: COL [...] one cassette. / DEBORAH:torres 02/14/18 TC:4 CPT: 17519 x2 HEADER OPERATION: Colonoscopy PRE-OP DIAGNOSIS: Diarrhea TISSUE S UBMITTED: A Terminal ileum biopsy, B Random colon biopsies MICROSCOPIC DESCRIPTION Slides are reviewed. MICROSCOPIC DIAGNOSIS A. Terminal ileum, biopsy: Fragments of small inte stinal mucosa, no pathologic diagnosis. B. Colon, random biopsy: Fragments of colonic mucosa, no pathologic diagnosis. SJ:torres 02/15/18 Signed __ Connor Chao 02/15/18 <signature on file> 91-Vmt-97839:24 Bedside Glucose Comments: [facility] LaboratoryPoint of [address] [place], [place] [address] BEDSIDE GLU 108 mg/dL (Normal) Range: 70-110 Comments: MANAGEMENT OF PATIENT CARE PER NURSING PROTOCOL 00-Rxe-253115:27 Urinalysis, Office (92895) UA - LEUKOCYTE ESTERASE Negative (Normal) UA - NITRITE Negative (Normal) URINE UROBILINGN DENISE TIMED Normal mg/dL (Normal) UA - PROTEIN Negative mg/dL (Normal) UA - PH 6.0 (Normal) UA - BLOOD Negative (Normal) UA - SPECIFIC GRAVITY 1.020 (Normal) UA - KETONES Negative mg/dL (Normal) UA - BILIRUBIN Negative (Normal) UA - GLUCOSE Negative (Normal) :55 Blood Glucose , Office (84852) Blood Glucose , Office 93 (Normal) :55 HgA1C , Office (46612) HgA1C , Office 5.6 % (Normal) Range: 4.6 - 7.1 :48 HgA1C , Office (67526) HgA1C , Office 5.2 % (Normal) Range: 4.6 - 7.1 :03 VITAMIN B-12 (CYANOCOBALAMIN) Comments: PATIENT NOT FASTINGPERFORMED BY: [facility]StreamGallup [facility] Medical CenterXhqwcr2342 [employer] [facility] [id number] (14317) Vitamin B12 399 pg/mL (Normal) Range: 232-1245 :03 CBC W/AUTO DIFF WBC (37101) Comments: PATIENT NOT FASTINGPERFORMED BY: [facility]StreamGallup [facility] Medical CenterGehoaj6645 [facility] [id number] Immature Grans (Abs) 0.0 {x10E3/uL} (Normal) Range: [...] 3.77-5.28 WBC 6.9 {x10E3/uL} (Normal) Range: 3.4-10.8 :03 METABOLIC PANEL, COMPREHENSIVE Comments: PATIENT NOT FASTINGPERFORMED BY: [facility]CoSaint [facility] CenterWsfzxo9841 [facility] [id number] (40240) ALT (SGPT) 28 [iU]/L (Normal) Range: 0-32 [...] Glucose, Serum 97 mg/dL (Normal) Range: 65-99 70-Ynq-022596:03 TSH (43011) Comments: PATIENT NOT FASTINGPERFORMED BY: [facility]6[address] [facility] [id number] TSH 2.680 {uIU/mL} (Normal) Range: 0.450-4.500 82-Pth-140343:13 PT (Prothrobim Time) (29782) Comments: PATIENT NOT FASTINGPERFORMED BY: [facility]ioRay [facility] HospitalOrmrvs9226 [facility] [id number] Prothrombin Time 21.4 {sec} (Abnormal) Range: 9.1-12.0 INR 2.1 (Abnormal) Range: 0.8-1.2 Comments: Reference interval is for non-anticoagulated patients. . Suggested INR therapeutic range for Vitamin K anta gonist therapy: Standard Dose (moderate intensity therapeutic range): 2.0 - 3.0 Higher intensity therapeutic range 2.5 - 3.5 85-Cny-089778:31 URINE SHERITA CULTURE-DENISE COL Comments: PERFORMED BY: [facility] [facility] [id number] Information: SRC:UC COUNT (96675) Result 1 MUG (Normal) Comments: Mixed urogenital flora10,000-25,000 colony forming units per mL Urine Final report (Normal) Culture,Comprehensive 49-Tzp-789105:33 Urinalysis, Office (39985) UA - LEUKOCYTE ESTERASE Negative (Normal) UA - NITRITE Negative (Normal) URINE UROBILINGN DENISE TIMED Normal mg/dL (Normal) UA - PROTEIN Negative mg/dL (Normal) UA - PH 5.0 (Normal) UA - BLOOD Negative (Normal) UA - SPECIFIC GRAVITY 1.010 (Normal) UA - KETONES Negative mg/dL (Normal) UA - BILIRUBIN Negative (Normal) UA - GLUCOSE Negative (Normal) 17-Zmp-286848:32 HEPATIC FUNCTION PANEL Comments: PATIENT NOT FASTINGPERFORMED BY: [facility] [facility] [id number] (05177) ALT (SGPT) 78 [iU]/L (Abnormal) Range: 0-32 AST (SGOT) 38 [iU]/L (Normal) Range: 0-40 Alkaline Phosphatase, S 77 [iU]/L (Normal) Range: 39-117 Bilirubin, Direct 0.18 mg/dL (Normal) Range: 0.00-0.40 Bilirubin, Total 0.6 mg/dL (Normal) Range: 0.0-1.2 Albumin, Serum 4.0 g/dL (Normal) Range: 3.5-5.5 Protein, Total, Serum 6.8 g/dL (Normal) Range: 6.0-8.5 :32 HEPATITIS PANEL (27495) Comments: PATIENT NOT FASTINGPERFORMED BY: [facility] [address] [facility] [id number] Hep C Virus Ab <0.1 {s/co_ratio} (Normal) Range: 0.0-0.9 Comments: Negative: < 0.8 Indeterminate: 0.8 - 0.9 Positive: > 0.9 . The CDC recommends that a positive HCV antibody result be followed up with a HCV Nucleic Acid Amplification test (051918). Hep B Core Ab, IgM Negative (Normal) HBsAg Screen Negative (Normal) Hep A Ab, IgM Negative (Normal) :32 ANTIMITOCHONDRIAL ANTIBODY Comments: PATIENT NOT FASTINGPERFORMED BY: [facility] [place] [address] [facility] [id number] (20186) Mitochondrial (M2) Antibody <20.0 {Units} (Normal) Range: 0.0-20.0 Comments: Negative 0.0 - 20.0 Equivocal 20.1 - 24.9 Positive >24.9 . Mitochondrial (M2) Antibodies are found in 90-96% of patients with primary biliary cirrhosis. :32 TRANSFERRIN (70459) Comments: PATIENT NOT FASTINGPERFORMED BY: [facility] [facility] [id number] Transferrin 265 mg/dL (Normal) Range: 200-370 71-Lvs-047664:32 GGT (GAMMA GLUTAMYLTRANSFERASE) Comments: PATIENT NOT FASTINGPERFORMED BY: [facility] [id number] (39463) GGT 57 [iU]/L (Normal) Range: 0-60 85-Gjo-631443:32 FERRITIN (33637) Comments: PATIENT NOT FASTINGPERFORMED BY: [facility]StreamSaint [facility] Medical CenterZnfumr8031 [facility] [id number] Ferritin, Serum 317 ng/mL (Abnormal) Range: 15-150 :32 CMV IGM ANTBDY (65451) Comments: PATIENT NOT FASTINGPERFORMED BY: [facility] [place] [address] [facility] [id number] Cytomegalovirus (CMV) Ab, IgM <30.0 AU/mL (Normal) Range: 0.0-29.9 Comments: Negative <30.0 Equivocal 30.0 - 34.9 Positive >34.9 A positive result is generally indicative of acute infection, reactivation or persistent IgM production. :32 CERULOPLASMIN (69414) Comments: PATIENT NOT FASTINGPERFORMED BY: [facility]StreamSaint [facility] Medical CenterCfqrvu904[address] [place] [address] [id number] Ceruloplasmin 29.9 mg/dL (Normal) Range: 19.0-39.0 :32 ASM (ANTI SMOOTH MUSCLE Comments: PATIENT NOT FASTINGPERFORMED BY: [facility]Stream[address] [id number] ANTIBODY) (35917) Actin (Smooth Muscle) Antibody 7 {Units} (Normal) Range: 0-19 Comments: Negative 0 - 19 Weak positive 20 - 30 Moderate to strong positive >30 . Actin Antibodies are found in 52-85% of patients with autoimmune hepatitis or chronic active hepatitis and in 22% of patients with primary biliary cirrhosis. :32 ANTI-LIVER/KIDNEY MICROSOMAL Comments: PATIENT NOT FASTINGPERFORMED BY: [facility]StreamSaint [facility] Medical CenterSncrbo5515 [facility] [id number] ANTIBODY (56316) Liver-Kidney Microsomal Ab 1.5 {Units} (Normal) Range: 0.0-20.0 Comments: Negative 0.0 - 20.0 Equivocal 20.1 - 24.9 Positive >24.9 . LKM type 1 antibodies are detected in patients with autoimmune hepatitis type 2 and in up to 8% of patients with chronic HCV infection. :32 REYNALDO (ANTINUCLEAR ANTIBODY) Comments: PATIENT NOT FASTINGPERFORMED BY: Lab50 Cox StreetDublin [place] [id number] (64654) REYNALDO Direct Negative (Normal) 07-Yob-090304:41 TSH (31724) Comments: PATIENT WAS FASTINGPERFORMED BY: [facility]6[address] [facility] [id number] TSH 2.840 {uIU/mL} (Normal) Range: 0.450-4.500 69-Opp-035959:41 METABOLIC PANEL, COMPREHENSIVE Comments: PATIENT WAS FASTINGPERFORMED BY: [facility]6[address] [facility] [id number] (24178) ALT (SGPT) 94 [iU]/L (Abnormal) Range: 0-32 [...] Glucose, Serum 94 mg/dL (Normal) Range: 65-99 47-Ucd-074112:41 LIPID PANEL (27338) Comments: PATIENT WAS FASTINGPERFORMED BY: [facility]StreamSaint [facility] CenterCghsjh8116 [facility] [id number] LDL/HDL Ratio 2.3 {ratio_units} (Normal) Range: 0.0-3.2 Comments: LDL/HDL Ratio Men Women 1/2 Avg.Risk 1.0 1.5 Av g.Risk 3.6 3.2 2X Avg.Risk 6.2 5.0 3X Avg.Risk 8.0 6.1 LDL Cholesterol Calc 79 mg/dL (Normal) Range: 0-99 VLDL Cholesterol Koby 31 mg/dL (Normal) Range: 5-40 HDL Cholesterol 35 mg/dL (Abnormal) Triglycerides 155 mg/dL (Abnormal) Range: 0-149 Cholesterol, Total 145 mg/dL (Normal) Range: 100-199 59-Ldi-674694:41 CBC W/AUTO DIFF WBC (47574) Comments: PATIENT WAS FASTINGPERFORMED BY: [facility]StreamSaint [facility] Medical CenterTkvxyb9342 [facility] [id number] Immature Grans (Abs) 0.0 {x10E3/uL} (Normal) Range: [...] (Normal) Range: 3.4-10.8 :08 HgA1C , Office (02949) HgA1C , Office 5.4 % (Normal) Range: 4.6 - 7.1 :08 Blood Glucose , Office (61212) Blood Glucose , Office 128 (Normal) :21 Rapid Flu (80194 x 2) Influenza A Ag negative (Normal) :07 URINE SHERITA CULTURE-DENISE COL Comments: PERFORMED BY: [facility]CoSaint [facility] CenterWllhiv2136 [facility] [id number] Information: SRC:UR COUNT (91686) Antimicrobial MIHEAD (Normal) Comments: S = Susceptible; [...] primarily for treating urinary tract infections. (CLSI, S215-M68,2009) Result 1 Escherichia coli Comments: 10,000-25,000 colony forming units per mL (Abnormal) Urine Final report Culture,Comprehensive (Abnormal) 5-Jws-057399:35 Urinalysis, Office (54125) UA - LEUKOCYTE ESTERASE Trace (Normal) UA - NITRITE Negative (Normal) URINE UROBILINGN DENISE TIMED 2 mg/dL (Normal) UA - PROTEIN Negative mg/dL (Normal) UA - PH 6 (Abnormal) UA - BLOOD Hemolyzed Trace (Normal) UA - SPECIFIC GRAVITY 1.015 (Normal) UA - KETONES Negative mg/dL (Normal) UA - BILIRUBIN Negative (Normal) UA - GLUCOSE Negative (Normal) 11-Psf-416337:47 URINE SHERITA CULTURE (DENISE COL Comments: PERFORMED BY: eleni [place] [id number] COUNT) (20585) Antimicrobial MIHEAD (Normal) Comments: S = Susceptible; [...] Colonies/mL (Abnormal) Urine Final report Culture,Comprehensive (Abnormal) 54-Ksq-767825:47 URINALYSIS (88806) Comments: PERFORMED BY: [facility] IntelligenceFormerly [facility] [id number] Information: SRC:UR Microscopic Examination MICNIP (Normal) Comments: Microscopic not indicated and not performed. Nitrite, Urine Negative (Normal) Urobilinogen,Semi-Qn 0.2 mg/dL (Normal) Range: 0.2-1.0 Bilirubin Negative (Normal) Occult Blood Negative (Normal) Ketones Negative (Normal) Glucose Negative (Normal) Protein Negative (Normal) WBC Esterase Negative (Normal) Appearance Clear (Normal) Urine-Color Yellow (Normal) pH 6.0 (Normal) Range: 5.0-7.5 Specific [place] 1.012 (Normal) Range: 1.005-1.030 :35 Basic Metabolic Profile (BMP) Comments: 'TROP' Serial specimen #1, #2, #3, or #4: 1[facility] Qrrcdcwpxy8402 [address]. [place], [place], [address] GAP 9 (Normal) Range: 5-15 CO2 31.0 [...] A.D.A. criteria. :35 CBC W/Diff, Automated Comments: [facility] Qbusapsqzt8667 [address]. [place], [place], [address] Absolute Lymph 2.00 {X10_3/ul} (Normal) Range: 0.83-4.51 [...] 4.2-5.4 WBC 7.9 K/mm3 (Normal) Range: 4.4-11.0 61-Zhk-559263:35 Troponin-I Comments: 'TROP' Serial specimen #1, #2, #3, or #4: 1[facility] Ojwhobqwlo8608 [address] [place], [address] TROPONIN-I < 0.02 ng/mL (Normal) Comments: TROPONIN-I EXPECTED VALUES <0.05 NEGATIVE 0.06 - 0.59 AT RISK OF AL > OR = 0.60 SUGGEST AL 89-Lcl-020542:45 Comprehensive Metabolic Profil Comments: Comments: PT.TAKING SULFAMETHOXAZOLE, SAID THE LABEL COULD AFFECT RESULTSOhio Valley Hospital Qmlvjfbuke3166 Rad[place], [address] GAP 9 (Normal) Range: 5-15 [...] mg/dL (Normal) Range: 70-110 :42 HGB A1C (00058) Comments: PATIENT NOT FASTINGPERFORMED BY: K2 IntelligenceFormerly [facility], [facility] [id number] Hemoglobin A1c 6.8 % (Abnormal) Range: 4.8-5.6 Comments: . Pre-diabetes: 5.7 - 6.4 Diabetes: >6.4 Glycemic control for adults with diabetes: <7.0 :42 SED RATE ERYTHROCYTE (82292) Comments: PATIENT NOT FASTINGPERFORMED BY: CrownPeak70 [facility] [id number] Sedimentation Rate-Westergren 15 mm/h (Normal) Range: 0-32 :42 C-REACTIVE PROTEIN (91518) Comments: PATIENT NOT FASTINGPERFORMED BY: CrownPeak70 MaoPemiscot Memorial [facility] [id number] C-Reactive Protein, Quant 15.5 mg/L (Abnormal) Range: 0.0-4.9 :42 TSH (99035) Comments: PATIENT NOT FASTINGPERFORMED BY: ChoiceStreamGallup Indian Medical CenterScshaw7693 [facility] [id number] TSH 2.870 {uIU/mL} (Normal) Range: 0.450-4.500 :42 METABOLIC PANEL, COMPREHENSIVE Comments: PATIENT NOT FASTINGPERFORMED BY: ChoiceStreamGallup Indian Medical CenterCvokom1232 [facility] [id number] (46435) ALT (SGPT) 51 [iU]/L (Abnormal) Range: 0-32 [...] Range: 65-99 :42 CBC W/AUTO DIFF WBC (87728) Comments: PATIENT NOT FASTINGPERFORMED BY: ChoiceStreamSaint Francis Medical CenterDdizrs6252 [facility] [id number] Immature Grans (Abs) 0.0 {x10E3/uL} (Normal) Range: [...] 3.77-5.28 WBC 9.7 {x10E3/uL} (Normal) Range: 3.4-10.8 55-Owz-66558:22 PT (Prothrobim Time) (41409) Comments: PATIENT NOT FASTINGPERFORMED BY: LabCoSaint Francis Medical CenterOimiit9701 [facility] [id number] Prothrombin Time 23.3 {sec} (Abnormal) Range: 9.1-12.0 INR 2.3 (Abnormal) Range: 0.8-1.2 Comments: Reference interval is for non-anticoagulated patients. . Suggested INR therapeutic range for Vitamin K anta gonist therapy: Standard Dose (moderate intensity therapeutic range): 2.0 - 3.0 Higher intensity therapeutic range 2.5 - 3.5 :36 PT (Prothrobim Time) (17246) Comments: PATIENT NOT FASTINGPERFORMED BY: [facility]6370 [facility] [id number] Prothrombin Time 25.8 {sec} (Abnormal) Range: 9.1-12.0 INR 2.5 (Abnormal) Range: 0.8-1.2 Comments: Reference interval is for non-anticoagulated patients. . Suggested INR therapeutic range for Vitamin K anta gonist therapy: Standard Dose (moderate intensity therapeutic range): 2.0 - 3.0 Higher intensity therapeutic range 2.5 - 3.5 64-Des-976420:27 PT (Prothrobim Time) (44611) Comments: PATIENT NOT FASTINGPERFORMED BY: [facility]6370 [facility] [id number] Prothrombin Time 22.3 {sec} (Abnormal) Range: 9.1-12.0 INR 2.2 (Abnormal) Range: 0.8-1.2 Comments: Reference interval is for non-anticoagulated patients. . Suggested INR therapeutic range for Vitamin K anta gonist therapy: Standard Dose (moderate intensity therapeutic range): 2.0 - 3.0 Higher intensity therapeutic range 2.5 - 3.5 17-Nma-370423:05 CBC-Complete Blood Cnt No Diff Comments: [facility] Jekedqdcgl5046 [place], [place], [address] MPV 10.2 fL (Normal) Range: 6.2-12.0 PLT [...] (Normal) Range: 4.4-11.0 :24 PT (Prothrobim Time) (97852) Comments: PATIENT NOT FASTINGPERFORMED BY: [facility]6370 [facility] [id number] Prothrombin Time 20.6 {sec} (Abnormal) Range: 9.1-12.0 INR 2.0 (Abnormal) Range: 0.8-1.2 Comments: Reference interval is for non-anticoagulated patients. . Suggested INR therapeutic range for Vitamin K anta gonist therapy: Standard Dose (moderate intensity therapeutic range): 2.0 - 3.0 Higher intensity therapeutic range 2.5 - 3.5 :42 PT (Prothrobim Time) (27797) Comments: PATIENT NOT FASTINGPERFORMED BY: [facility]6370 [facility] [id number] Prothrombin Time 20.0 {sec} (Abnormal) Range: 9.1-12.0 INR 2.0 (Abnormal) Range: 0.8-1.2 Comments: Reference interval is for non-anticoagulated patients. . Suggested INR therapeutic range for Vitamin K anta gonist therapy: Standard Dose (moderate intensity therapeutic range): 2.0 - 3.0 Higher intensity therapeutic range 2.5 - 3.5 :38 PT (Prothrobim Time) (60427) Comments: PATIENT NOT FASTINGPERFORMED BY: [facility]6370 [facility] [id number] Prothrombin Time 19.4 {sec} (Abnormal) Range: 9.1-12.0 INR 1.9 (Abnormal) Range: 0.8-1.2 Comments: Reference interval is for non-anticoagulated patients. . Suggested INR therapeutic range for Vitamin K anta gonist therapy: Standard Dose (moderate intensity therapeutic range): 2.0 - 3.0 Higher intensity therapeutic range 2.5 - 3.5 08-Rac-514173:07 PT (Prothrobim Time) (83819) Comments: PATIENT NOT FASTINGPERFORMED BY: [place] [address] [facility] [id number] Prothrombin Time 18.9 {sec} (Abnormal) Range: 9.1-12.0 INR 1.8 (Abnormal) Range: 0.8-1.2 Comments: Reference interval is for non-anticoagulated patients. . Suggested INR therapeutic range for Vitamin K anta gonist therapy: Standard Dose (moderate intensity therapeutic range): 2.0 - 3.0 Higher intensity therapeutic range 2.5 - 3.5 :40 PT (Prothrobim Time) (02063) Comments: PATIENT NOT FASTINGPERFORMED BY: [facility]6370 [facility] [id number] Prothrombin Time 21.4 {sec} (Abnormal) Range: 9.1-12.0 INR 2.1 (Abnormal) Range: 0.8-1.2 Comments: Reference interval is for non-anticoagulated patients. . Suggested INR therapeutic range for Vitamin K anta gonist therapy: Standard Dose (moderate intensity therapeutic range): 2.0 - 3.0 Higher intensity therapeutic range 2.5 - 3.5 :18 PT (Prothrobim Time) (59708) Comments: PATIENT NOT FASTINGPERFORMED BY: [facility]6370 [facility] [id number] Prothrombin Time 18.6 {sec} (Abnormal) Range: 9.1-12.0 INR 1.8 (Abnormal) Range: 0.8-1.2 Comments: Reference interval is for non-anticoagulated patients. . Suggested INR therapeutic range for Vitamin K anta gonist therapy: Standard Dose (moderate intensity therapeutic range): 2.0 - 3.0 Higher intensity therapeutic range 2.5 - 3.5 96-Flc-934816:03 PT (Prothrobim Time) (00829) Comments: PATIENT NOT FASTINGPERFORMED BY: [facility]6[address] [facility] [id number] Prothrombin Time 23.6 {sec} (Abnormal) Range: 9.1-12.0 INR 2.3 (Abnormal) Range: 0.8-1.2 Comments: Reference interval is for non-anticoagulated patients. . Suggested INR therapeutic range for Vitamin K anta gonist therapy: Standard Dose (moderate intensity therapeutic range): 2.0 - 3.0 Higher intensity therapeutic range 2.5 - 3.5 :49 PT (Prothrobim Time) (98035) Comments: PATIENT NOT FASTINGPERFORMED BY: [facility]6[address] [facility] [id number] Prothrombin Time 24.7 {sec} (Abnormal) Range: 9.1-12.0 INR 2.4 (Abnormal) Range: 0.8-1.2 Comments: Reference interval is for non-anticoagulated patients. . Suggested INR therapeutic range for Vitamin K anta gonist therapy: Standard Dose (moderate intensity therapeutic range): 2.0 - 3.0 Higher intensity therapeutic range 2.5 - 3.5 :34 PT (Prothrobim Time) (55008) Comments: PATIENT NOT FASTINGPERFORMED BY: [facility]6[address] [facility] [id number] Prothrombin Time 23.1 {sec} (Abnormal) Range: 9.1-12.0 INR 2.3 (Abnormal) Range: 0.8-1.2 Comments: Reference interval is for non-anticoagulated patients. . Suggested INR therapeutic range for Vitamin K anta gonist therapy: Standard Dose (moderate intensity therapeutic range): 2.0 - 3.0 Higher intensity therapeutic range 2.5 - 3.5 :26 PT (Prothrobim Time) (60747) Comments: PATIENT NOT FASTINGPERFORMED BY: [facility]6370 [facility] [id number] Prothrombin Time 14.3 {sec} (Abnormal) Range: 9.1-12.0 INR 1.4 (Abnormal) Range: 0.8-1.2 Comments: Reference interval is for non-anticoagulated patients. . Suggested INR therapeutic range for Vitamin K anta gonist therapy: Standard Dose (moderate intensity therapeutic range): 2.0 - 3.0 Higher intensity therapeutic range 2.5 - 3.5 7-Hyb-725417:31 Prothrombin Time w/INR Comments: Order Date: 08/03/16Order Info: [id number] - PTComments: STATOrder Date: 08/03/16Order Info: 6301-6 - PTComments: STATOrder Date: 08/03/16Order Info: 6301-6 - PTComments: [facility] uiabyaiez6918 Radha [place], [id number] INR 2.2 (Normal) PROTIME 24.1 s (Abnormal) Range: 11.7-14.9 4-Zvb-749560:05 PT (Prothrobim Time) (91802) Comments: PATIENT NOT FASTINGPERFORMED BY: [facility] Kguluc2939 [facility] [id number] Prothrombin Time 10.4 {sec} (Normal) Range: 9.1-12.0 INR 1.0 (Normal) Range: 0.8-1.2 Comments: Reference interval is for non-anticoagulated patients. . Suggested INR therapeutic range for Vitamin K anta gonist therapy: Standard Dose (moderate intensity therapeutic range): 2.0 - 3.0 Higher intensity therapeutic range 2.5 - 3.5 31-Fte-095027:30 Urinalysis, Complete Comments: How was Urine Obtained? CLEAN [facility] Jyfzxqwhsl7187 Radha [place], [place], [id number] MUCUS, URINE 1+ {/hpf} (Normal) BACTERIA 0 [...] CLARITY Sl. Cloudy (Normal) COLOR Yellow (Normal) 38-Rwu-794077:15 Basic Metabolic Profile (BMP) Comments: 'TROP' Serial specimen #1, #2, #3, or #4: [facility] Hflxlhwspp4543 [place], [address] GAP 7 (Normal) Range: 5-15 [...] <126 mg/dLsuggests IMPAIRED HOMEOSTASIS per A.D.A. criteria. 87-Gab-096177:15 BNP,B-Type NATRIURETIC PEPTIDE Comments: [facility] Owwbxzmwtl8371 [place], [address] B-TYPE HALEY PEP < 2.0 pg/mL (Normal) Range: 0-100 95-Rjz-035525:15 CBC W/Diff, Automated Comments: [facility] Auoumppuya7548 [place], [address] MACROCYTE RARE (Normal) ANISO RARE [...] 4.2-5.4 WBC 7.0 K/mm3 (Normal) Range: 4.4-11.0 52-Drt-234845:15 Troponin-I Comments: 'TROP' Serial specimen #1, #2, #3, or #4: [address] [place] [address] Rajafdvluf6054 Radha [place], [place], [address] TROPONIN-I < 0.02 ng/mL (Normal) Comments: TROPONIN-I EXPECTED VALUES <0.05 NEGATIVE 0.06 - 0.59 AT RISK OF AL > OR = 0.60 SUGGEST AL 44-Agu-651862:15 PAP I-G w/rfx hrHPV Comments: CYTOLOGY INFORMATION:- CLINICAL INFORMATION: HYSTERECTOMY- DATE LMP/MENOPAUSE:- COLLECTION VIAL: Thin Prep Vial- SHOE REPAIR COBBLER SOURCE: VAGINAL- COLLECTION TECHNIQUE: SPATULA ONLYCYTOLOGY INFORMATION:- CLINICAL IN FORMATION: HYSTERECTOMY- DATE LMP/MENOPAUSE:- COLLECTION VIAL: Thin Prep Vial- SHOE REPAIR COBBLER SOURCE: VAGINAL- COLLECTION TECHNIQUE: SPATULA ONLYSpecimen Comment: [id number] Comment: No. of contai ners..01 CYTYC Thin Prep VialLabCorp (refer to report for specific site)refer to report for address and phone number HPV RFLX Comment (Normal) Comments: The HPV DNA reflex criteria were not met with this specimenresult therefore, no HPV testing was performed.Performed at: [address] [id number] Director: Che Nicole MD, Phone: [phone] PAPSMR Comment (Normal) Comments: The Pap smear [...] PERFORM Comment (Normal) Comments: Arminda Lopez, Medical Lab Technologist (ASCP) ADEQ Comment (Normal) Comments: Satisfactory for evaluation. Endocervical and/or squamous metaplasticcells (endocervical component) are present. DIAGN Comment (Normal) Comments: NEGATIVE FOR INTRAEPITHELIAL LESION AND MALIGNANCY. 03-Ahn-184761:10 Basic Metabolic Profile (BMP) Comments: [facility] Lkbzetvswa9656 [place], [address] GAP 7 (Normal) Range: 5-15 CO2 28.0 [...] <126 mg/dLsuggests IMPAIRED HOMEOSTASIS per A.D.A. criteria. 4-Boq-415878:29 BNP,B-Type NATRIURETIC PEPTIDE Comments: [facility] Epslfporak0601 [place], [address] B-TYPE HALEY PEP 4.2 pg/mL (Normal) Range: 0-100 :36 Troponin I (01447) Comments: PATIENT NOT FASTINGPERFORMED BY: CrownPeak70 [facility] [id number] BY: ChoiceStream[address] [id number] Troponin I <0.01 ng/mL (Normal) Range: 0.00-0.04 27-Bvk-055195:36 BNTP (12293) Comments: PATIENT NOT FASTINGPERFORMED BY: CrownPeak70 [facility] [id number] BY: Gild [address] [id number] B-Type Natriuretic Peptide 5.5 pg/mL (Normal) Range: 0.0-100.0 :36 UPEP (62480) Comments: PATIENT NOT FASTINGPERFORMED BY: CrownPeak70 [facility] [id number] BY: ChoiceStream[address] [id number] Please note: SPRCS (Normal) Comments: Protein electrophoresis scan will follow via computer, mail, orcourier delivery. M-Stanley, % Not Observed % (Normal) Gamma Globulin, U 16.5 % (Normal) Beta Globulin, U 29.9 % (Normal) Qhyir-8-Klcvuhcc, U 22.4 % (Normal) Fqjod-7-Ggdppoqe, U 6.5 % (Normal) Albumin, U 24.7 % (Normal) Protein,Total,Urine 9.6 mg/dL (Normal) 00-Njw-777364:36 SPEP (00785) Comments: PATIENT NOT FASTINGPERFORMED BY: [employer] Digital Patientco [facility] [id number] BY: Edgeio[address] [id number] Please note: SPRCS (Normal) Comments: Protein electrophoresis scan will follow via computer, mail, orcourier delivery. A/G Ratio 0.9 (Normal) Range: 0.7-1.7 Globulin, Total 3.6 g/dL (Normal) Range: 2.2-3.9 M-Stanley Not Observed g/dL (Normal) Gamma Globulin 1.5 g/dL (Normal) Range: 0.4-1.8 Beta Globulin 1.2 g/dL (Normal) Range: 0.7-1.3 Yrpqj-6-Jfjokvjz 0.7 g/dL (Normal) Range: 0.4-1.0 Flncv-3-Hvtvlxmk 0.2 g/dL (Normal) Range: 0.0-0.4 Albumin 3.4 g/dL (Normal) Range: 2.9-4.4 Protein, Total, Serum 7.0 g/dL (Normal) Range: 6.0-8.5 71-Djj-665486:36 CCP ANTIBODY (10205) Comments: PATIENT NOT FASTINGPERFORMED BY: Ac[employer] Pharmaceuticalslin6370 [facility] [id number] BY: ChoiceStream[address] [id number] CCP Antibodies IgG/IgA 6 {units} (Normal) Range: 0-19 Comments: Negative <20 Weak positive 20 - 39 Moderate positive 40 - 59 Strong positive >59 88-Weu-941959:36 RHEUMATOID FACTOR-QUANT Comments: PATIENT NOT FASTINGPERFORMED BY: Monster DigitalSaint Francis Medical CenterUxrfux8[address] [place] [address] [id number] BY: Edgeio[address] [id number] (70920) RA Latex Turbid. 14.7 {IU/mL} (Abnormal) Range: 0.0-13.9 65-Klk-491865:36 REYNALDO (ANTINUCLEAR ANTIBODY) Comments: PATIENT NOT FASTINGPERFORMED BY: LabCoRobert Ville 1838070 [facility] [id number] BY: [address] [id number] ([address]) REYNALDO Direct Negative (Normal) :36 SJOGREN ANTIBOIDIES Comments: PATIENT NOT FASTINGPERFORMED BY: LabAmanda [place] [id number] [facility] [id number] BY: [address] [id number] (ANTI-SS-A/ANTI-SS-B) (60035) Sjogren's Anti-SS-B <0.2 {AI} (Normal) Range: 0.0-0.9 Sjogren's Anti-SS-A <0.2 {AI} (Normal) Range: 0.0-0.9 :31 SPEP (28451) Comments: PATIENT NOT FASTINGPERFORMED BY: [place] [address]370 [facility] [id number] Please note: SPRCS (Normal) Comments: Protein electrophoresis scan will follow via computer, mail, orcourier delivery. A/G Ratio 0.9 (Normal) Range: 0.7-1.7 Globulin, Total 3.6 g/dL (Normal) Range: 2.2-3.9 M-Stanley Not Observed g/dL (Normal) Gamma Globulin 1.4 g/dL (Normal) Range: 0.4-1.8 Beta Globulin 1.2 g/dL (Normal) Range: 0.7-1.3 Phnlv-2-Fiudhzao 0.7 g/dL (Normal) Range: 0.4-1.0 Vfdet-3-Aqyjayqb 0.3 g/dL (Normal) Range: 0.0-0.4 Albumin 3.4 g/dL (Normal) Range: 2.9-4.4 Protein, Total, Serum 7.0 g/dL (Normal) Range: 6.0-8.5 :31 UP (51059) Comments: PATIENT NOT FASTINGPERFORMED BY: [facility] Zobolo84[address] [place] [id number] Please note: SPRCS (Normal) Comments: Protein electrophoresis scan will follow via computer, mail, orcourier delivery. M-Stanley, % Not Observed % (Normal) Gamma Globulin, U 18.0 % (Normal) Beta Globulin, U 32.7 % (Normal) Eudnt-1-Vfexktpg, U 22.3 % (Normal) Jkcqt-1-Hgzqylch, U 11.7 % (Normal) Albumin, U 15.4 % (Normal) Protein,Total,Urine 5.1 mg/dL (Normal) :25 CDIFF (Molecular) Comments: [address] [place], [address] CDIFF See Note (Normal) Comments: Cdiff-MolecularC. Diff DNA Negative- No toxigenic C. Diff DNA Detected :25 ENTERIC PATHOGEN PANEL STOOL Comments: [address] [place], [address] EP PANEL See Note (Normal) [...] Detected :25 Ova and Parasites 8623 Comments: [address], [address] OP See Note Comments: O + P 8623OVA AND PARASITES EXAM, ROUTINE These results were obtained using wet preparation(s) and trichrome stained smear. This test does not include testing for Crytosporidium parvum, C (Normal) yclospora, or Microsporidia. TESTING PERFORMED AT [facility]. ORIGINAL REPORT ON FILE IN LAB CONTAINS ADDITIONAL TEST SITE INFORMATION. ____ Ova/Parasite Exam NO OVA, CYSTS, OR PARASITES FOUND. 42-Jkg-465962:25 Stool Lactoferrin/WBC Comments: [address] [place], [address] ; will review on 03/19 WBCST See Note (Normal) Comments: Stool Lacto/WBCFecal WBC Lactoferrin Negative: No Fecal WBC Lactoferrin present 17-Sef-284008:25 Stool Occult Blood iFOB Comments: [address] [place], [address] STOB See Note (Normal) Comments: STOB iFOBOccult Blood Negative :25 Amylase Comments: [address] [place], [address] RADHA 28 U/L (Normal) Range: 25-115 :25 BNP,B-Type NATRIURETIC PEPTIDE Comments: [address] [place], [address] B-TYPE HALEY PEP 3.8 pg/mL (Normal) Range: 0-100 :25 CBC W/Diff, Automated Comments: [address] [place], [address] Absolute Lymph 1.54 {X10_3/ul} (Normal) [...] 4.2-5.4 WBC 7.2 K/mm3 (Normal) Range: 4.4-11.0 49-Acr-26708:25 Comprehensive Metabolic Profil Comments: [facility] Hzqvhzjccr4096 Radha [place], [place], [address] GAP 7 (Normal) Range: 5-15 CO2 30.0 [...] A.D.A. criteria. :25 D-Dimer Quantitative (DVT/PE) Comments: [facility] [address] [place], [place], [address] D-DIMER QUANT < 0.27 {FEU/ug/m} (Abnormal) Range: 0.27-0.49 Comments: NORMAL D-Dimer level (<0.50) indicates no DVT or PE. :25 Lipase Comments: [facility] Febyagimfg[address] [place], [place], [address] LIPASE 109 U/L (Normal) Range: 73-393 :25 Lipid Profile Comments: [facility] [address]lvp[address] [place], [place], [address] VLDL 25 mg/dL (Normal) Range: 5-40 LDL [...] Risk :25 Thyroid Stim Hormone (TSH) Comments: [facility] Btajowkoqd7474 Radha [place], [address] TSH 3.44 {uIU/mL} (Normal) Range: 0.358-3.74 :25 Vitamin D,25 Hydroxy Comments: [facility] Psjowaxgih4864 [place], [address] Vitamin D 25-OH 24.7 ng/mL (Normal) Comments: Vitamin D 25(OH) Status Range Deficiency <20 ng/mL (50nmol/L) Insuffciency 20 - 30 ng/mL (50 - 75 nmol/L) Sufficiency 30 - 100 ng/mL (75 - 250 nmol/L) Toxicity >100 ng/mL (>250 nmol/L) 05-Bgx-796468:02 PT (Prothrobim Time) Comments: PATIENT NOT FASTINGPERFORMED BY: [facility] Hmictp8213 [facility] [id number] Information: [id number] ([id number]) Prothrombin Time 28.4 {sec} (Abnormal) Range: 9.1-12.0 INR 2.6 (Abnormal) Range: 0.8-1.2 Comments: Reference interval is for non-anticoagulated patients. . Suggested INR therapeutic range for Vitamin K anta gonist therapy: Standard Dose (moderate intensity therapeutic range): 2.0 - 3.0 Higher intensity therapeutic range 2.5 - 3.5 6-Tcj-848002:45 PAP I-G w/rfx hrHPV Comments: CYTOLOGY INFORMATION:- CLINICAL INFORMATION: [g PTHCLINFO]- DATE LMP/MENOPAUSE: [] [g PTHLMPMEN]- COLLECTION VIAL: Thin Prep Vial- SHOE REPAIR COBBLER SOURCE: [g PTHGYNSRC]- COLLECTION TECHNIQUE: [g PTHCOL LECT]Specime n Comment: [id number] Comment: No. of containers..01 CYTYC Thin Prep VialTest performed at:[facility] Maskzmgpak7969 [place] [address] HPV RFLX Comment (Normal) Comments: The HPV DNA reflex criteria were not met with this specimenresult therefore, no HPV testing was performed.Performed at: [address] [id number] Director: Jesse Alejo MD, Phone: [phone] PAPSMR Comment (Normal) Comments: The Pap smear [...] PERFORM Comment (Normal) Comments: Alfa Sanchez, Medical Lab Technologist (ASCP) ADEQ Comment (Normal) Comments: Satisfactory for evaluation. No endocervical component is identified. DIAGN Comment (Normal) Comments: NEGATIVE FOR INTRAEPITHELIAL LESION AND MALIGNANCY. 28-Dec-20140:23 Urinalysis, Complete Comments: Order Date: 12/28/14How was Urine Obtained? TOOL PUSHER TO SPECIFYTest performed at:[facility] Jxfvdbkyhi9425 [address] S[address] [place], [place] [address] MUCUS, URINE 1+ {/hpf} (Normal) BACTERIA 0 [...] Urine Drug Screen (VISTA) Comments: Test performed at:[facility] [address] [place], [place] [address] THC NEGATIVE (Normal) PCP NEGATIVE (Normal) OPIATES [...] TESTING MUST BE ORDERED SEPARATELY. USE TESTMNEMONIC: [facility] :15 Alcohol, Blood (Medical)-Serum Comments: Test performed at:[facility] [address] [place] [address] SERUM ETOH 10.0 mg/dL (Normal) Comments: The serum:whole blood ethanol ratio is approximately 1.14and varies slightly with hematocrit.Medical Alcohol reference interval and critical value innon-tolerant individuals; 50 - 100 Impairment 100 Intoxication 100 - 250 Severe Poisoning 250 - 400 Deep/possible fatal coma :15 Basic Metabolic Profile (BMP) Comments: Test performed at:[facility] Zrhjpnyxdn5581 [facility] [place] [address] GAP 10 (Normal) Range: 5-15 [...] 28-Dec-20140:15 CBC W/Diff, Automated Comments: Test performed at:[facility] Lxqclguvcu7321 Rad[place], [place] [address] Absolute Lymph 3.11 {X10_3/ul} (Normal) Range: 0.83-4.51 [...] 4.4-11.0 :15 ,Serum,hCG Quali. Comments: Test performed at:[facility] Lallzjfwwp2430 [facility]. [place], [place] [address] HCGSQUAL NEGATIVE {Negative} (Normal) Range: 0-9 Nonpreg HCG Qual triggr 4 m[iU]/mL (Normal) 31-Dzk-453557:55 Urine Drug Screen (VISTA) Comments: Test performed at:[facility] [address] [place] [address] THC NEGATIVE (Normal) PCP NEGATIVE [...] MUST BE ORDERED SEPARATELY. USE TESTMNEMONIC: [facility] 60-Fgt-483262:05 Alcohol, Blood (Medical)-Serum Comments: Test performed at:[facility] Uvuucnklyw8992 [facility] [place] [address] SERUM ETOH < 3.0 mg/dL (Normal) Comments: The serum:whole blood ethanol ratio is approximately 1.14and varies slightly with hematocrit.Medical Alcohol reference interval and critical value innon-tolerant individuals; 50 - 100 Impairment 100 Intoxication 100 - 250 Severe Poisoning 250 - 400 Deep/possible fatal coma 31-Yua-532301:05 Basic Metabolic Profile (BMP) Comments: Test performed at:[facility] [address] [place], [place] [address] GAP 9 (Normal) Range: 5-15 CO2 25.0 [...] <126 mg/dLsuggests IMPAIRED HOMEOSTASIS per A.D.A. criteria. 45-Qfz-318339:05 CBC W/Diff, Automated Comments: Test performed at:[facility] Djgnf[address] [place] [address] Absolute Lymph 2.66 {X10_3/ul} (Normal) Range: [...] 4.2-5.4 WBC 8.8 K/mm3 (Normal) Range: 4.4-11.0 :15 Alcohol, Blood (Medical)-Serum Comments: Test performed at:[facility] [facility] [address] [place] [address] SERUM ETOH < 3.0 mg/dL (Normal) Comments: The serum:whole blood ethanol ratio is approximately 1.14and varies slightly with hematocrit.Medical Alcohol reference interval and critical value innon-tolerant individuals; 50 - 100 Impairment 100 Intoxication 100 - 250 Severe Poisoning 250 - 400 Deep/possible fatal coma 29-Oct-20141:15 Basic Metabolic Profile (BMP) Comments: Test performed at:[facility] [address] [facility]. [place], [place] [address] GAP 6 (Normal) Range: 5-15 CO2 25.0 [...] :15 CBC W/Diff, Automated Comments: Test performed at:[facility] [address] [facility] [place] [address] Absolute Lymph 2.65 {X10_3/ul} (Normal) [...] 4.4-11.0 :15 ,Serum,hCG Quali. Comments: Test performed at:[facility] [address] [facility]. [place], [place] [address] HCGSQUAL NEGATIVE {Negative} (Normal) Range: 0-9 Nonpreg HCG Qual triggr 4 m[iU]/mL (Normal) :15 Urine Drug Screen (VISTA) Comments: Test performed at:[facility] [address] [place] [address] THC NEGATIVE (Normal) PCP NEGATIVE [...] MUST BE ORDERED SEPARATELY. USE TESTMNEMONIC: [facility] 41-Kyl-323568:32 Rapid Flu (31622 x 2) Influenza A Ag Negitive A and B (Normal) 23-Pgq-77157:56 ,Serum,hCG Quali. Comments: Test performed at:[facility] [address] [place] [address] HCGSQUAL NEGATIVE {Negative} (Normal) Range: 0-9 Nonpreg HCG Qual triggr 3 m[iU]/mL (Normal) :01 CBC W/Diff, Automated Comments: Test performed at:[facility] [address] [place] [address] Absolute Lymph 2.32 {X10_3/ul} (Normal) [...] :01 Comprehensive Metabolic Profil Comments: Test performed at:[facility] [address] [place], [place] [id number] GAP 6 (Normal) Range: 5-15 CO2 29.0 [...] 126 mg/dLsuggests DIABETES MELLITUS per A.D.A. criteria. 83-Xsh-97517:01 Prothrombin Time w/INR Comments: Test performed at:[facility] [address] [place] [address] INR 1.1 (Normal) PROTIME 14.7 s (Normal) Range: 11.7-14.9 43-Qfm-878455:36 PT (Prothrobim Time) Comments: PATIENT NOT FASTINGPERFORMED BY: [facility] Syoujb1269 [facility] [id number] Information: [id number] ([id number]) Prothrombin Time 10.0 {sec} (Normal) Range: 9.1-12.0 INR 0.9 (Normal) Range: 0.8-1.2 Comments: Reference interval is for non-anticoagulated patients. . Suggested INR therapeutic range for Vitamin K anta gonist therapy: Standard Dose (moderate intensity therapeutic range): 2.0 - 3.0 Higher intensity therapeutic range 2.5 - 3.5 3-Rxr-995827:20 Basic Metabolic Profile (BMP) Comments: 'TROP' Serial specimen #1, #2, #3, or #4: 1Test performed at:[facility] [address] [place] [address] GAP 4 (Abnormal) Range: 5-15 [...] 7-18 GLU 97 mg/dL (Normal) Range: 70-110 8-Fss-496415:20 CBC W/Diff, Automated Comments: Test performed at:[facility] [address] [place], [place] [address] Absolute Lymph 2.54 {X10_3/ul} (Normal) Range: 0.83-4.51 [...] 4.2-5.4 WBC 9.5 K/mm3 (Normal) Range: 4.4-11.0 4-Kmb-139304:20 Troponin-I Comments: 'TROP' Serial specimen #1, #2, #3, or #4: 1Test performed at:[facility] [address] [place] [address] TROPONIN-I < 0.02 ng/mL (Normal) Comments: TROPONIN-I EXPECTED VALUES <0.05 NEGATIVE 0.06 - 0.59 AT RISK OF AL > OR = 0.60 SUGGEST AL 80-Asq-289134:42 PT (Prothrobim Time) Comments: PATIENT NOT FASTINGPERFORMED BY: [facility] [place] [address] [facility] [id number] Information: [id number] ([id number]) Prothrombin Time 23.6 {sec} (Abnormal) Range: 9.1-12.0 INR 2.2 (Abnormal) Range: 0.8-1.2 Comments: Reference interval is for non-anticoagulated patients. . Suggested INR therapeutic range for Vitamin K anta gonist therapy: Standard Dose (moderate intensity therapeutic range): 2.0 - 3.0 Higher intensity therapeutic range 2.5 - 3.5 86-Ugj-586486:18 PT (Prothrobim Time) Comments: PATIENT NOT FASTINGPERFORMED BY: [facility] [facility] [id number] Information: [id number] ([id number]) Prothrombin Time 31.8 {sec} (Abnormal) Range: 9.1-12.0 INR 2.9 (Abnormal) Range: 0.8-1.2 Comments: Reference interval is for non-anticoagulated patients. . Suggested INR therapeutic range for Vitamin K anta gonist therapy: Standard Dose (moderate intensity therapeutic range): 2.0 - 3.0 Higher intensity therapeutic range 2.5 - 3.5 :31 PT (Prothrobim Time) Comments: PATIENT NOT FASTINGPERFORMED BY: [facility] [facility] [id number] Information: [id number] ([id number]) Prothrombin Time 20.7 {sec} (Abnormal) Range: 9.1-12.0 INR 1.9 (Abnormal) Range: 0.8-1.2 Comments: Reference interval is for non-anticoagulated patients. . Suggested INR therapeutic range for Vitamin K anta gonist therapy: Standard Dose (moderate intensity therapeutic range): 2.0 - 3.0 Higher intensity therapeutic range 2.5 - 3.5 :25 PT (Prothrobim Time) Comments: PATIENT NOT FASTINGPERFORMED BY: [facility] [facility] [id number] Information: [id number] ([id number]) Prothrombin Time 13.2 {sec} (Abnormal) Range: 9.1-12.0 INR 1.2 (Normal) Range: 0.8-1.2 Comments: Reference interval is for non-anticoagulated patients. . Suggested INR therapeutic range for Vitamin K anta gonist therapy: Standard Dose (moderate intensity therapeutic range): 2.0 - 3.0 Higher intensity therapeutic range 2.5 - 3.5 :40 PT (Prothrobim Time) Comments: PATIENT NOT FASTINGPERFORMED BY: [facility] [facility] [id number] Information: [id number] ([id number]) Prothrombin Time 14.8 {sec} (Abnormal) Range: 9.1-12.0 INR 1.4 (Abnormal) Range: 0.8-1.2 Comments: Reference interval is for non-anticoagulated patients. . Suggested INR therapeutic range for Vitamin K anta gonist therapy: Standard Dose (moderate intensity therapeutic range): 2.0 - 3.0 Higher intensity therapeutic range 2.5 - 3.5 :39 PT (Prothrobim Time) Comments: PATIENT NOT FASTINGPERFORMED BY: [address]Dublin [place] [id number] Information: [id number] ([id number]) Prothrombin Time 11.9 {sec} (Normal) Range: 9.1-12.0 INR 1.1 (Normal) Range: 0.8-1.2 Comments: Reference interval is for non-anticoagulated patients. . Suggested INR therapeutic range for Vitamin K anta gonist therapy: Standard Dose (moderate intensity therapeutic range): 2.0 - 3.0 Higher intensity therapeutic range 2.5 - 3.5 09-Rgo-799778:20 PT (Prothrobim Time) Comments: PATIENT NOT FASTINGPERFORMED BY: [place] [address] [facility] [id number] Information: [id number] ([id number]) Prothrombin Time 31.6 {sec} (Abnormal) Range: 9.1-12.0 INR 2.9 (Abnormal) Range: 0.8-1.2 Comments: Reference interval is for non-anticoagulated patients. . Suggested INR therapeutic range for Vitamin K anta gonist therapy: Standard Dose (moderate intensity therapeutic range): 2.0 - 3.0 Higher intensity therapeutic range 2.5 - 3.5 :31 PT (Prothrobim Time) Comments: PATIENT NOT FASTINGPERFORMED BY: [place] [address] [facility] [id number] Information: [id number] ([id number]) Prothrombin Time 23.5 {sec} (Abnormal) Range: 9.1-12.0 INR 2.2 (Abnormal) Range: 0.8-1.2 Comments: Reference interval is for non-anticoagulated patients. . Suggested INR therapeutic range for Vitamin K anta gonist therapy: Standard Dose (moderate intensity therapeutic range): 2.0 - 3.0 Higher intensity therapeutic range 2.5 - 3.5 89-Wij-440389:38 PT (Prothrobim Time) Comments: PATIENT NOT FASTINGPERFORMED BY: [place] [address] [facility] [id number] Information: [id number] ([id number]) Prothrombin Time 22.9 {sec} (Abnormal) Range: 9.1-12.0 INR 2.1 (Abnormal) Range: 0.8-1.2 Comments: Reference interval is for non-anticoagulated patients. . Suggested INR therapeutic range for Vitamin K anta gonist therapy: Standard Dose (moderate intensity therapeutic range): 2.0 - 3.0 Higher intensity therapeutic range 2.5 - 3.5 :16 PT (Prothrobim Time) Comments: PATIENT NOT FASTINGPERFORMED BY: [place] [address] [facility] [id number] Information: [id number] ([id number]) Prothrombin Time 36.6 {sec} (Abnormal) Range: 9.1-12.0 INR 3.3 (Abnormal) Range: 0.8-1.2 Comments: Reference interval is for non-anticoagulated patients. . Suggested INR therapeutic range for Vitamin K anta gonist therapy: Standard Dose (moderate intensity therapeutic range): 2.0 - 3.0 Higher intensity therapeutic range 2.5 - 3.5 :14 PT (Prothrobim Time) Comments: PATIENT NOT FASTINGPERFORMED BY: [facility] [facility] [id number] Information: [id number] ([id number]) Prothrombin Time 28.3 {sec} (Abnormal) Range: 9.1-12.0 INR 2.7 (Abnormal) Range: 0.8-1.2 Comments: Reference interval is for non-anticoagulated patients. . Suggested INR therapeutic range for Vitamin K anta gonist therapy: Standard Dose (moderate intensity therapeutic range): 2.0 - 3.0 Higher intensity therapeutic range 2.5 - 3.5 :13 HgA1C , Office (29820) HgA1C , Office 5.9 % (Normal) Range: 4.6 - 7.1 :13 Blood Glucose , Office (96855) Blood Glucose , Office 144 (Normal) :54 PT (Prothrobim Time) Comments: STANDING ORDER; PATIENT NOT FASTINGPERFORMED BY: [facility] [facility] [id number] Information: [id number] ([id number]) Prothrombin Time 31.0 {sec} (Abnormal) Range: 9.1-12.0 INR 3.0 (Abnormal) Range: 0.8-1.2 Comments: Reference interval is for non-anticoagulated patients. . Suggested INR therapeutic range for Vitamin K anta gonist therapy: Standard Dose (moderate intensity therapeutic range): 2.0 - 3.0 Higher intensity therapeutic range 2.5 - 3.5 43-Erl-766829:13 PT (Prothrobim Time) Comments: PATIENT NOT FASTINGPERFORMED BY: [facility] [facility] [id number] Information: [id number] ([id number]) Prothrombin Time 29.0 {sec} (Abnormal) Range: 9.1-12.0 INR 2.8 (Abnormal) Range: 0.8-1.2 Comments: Reference interval is for non-anticoagulated patients. . Suggested INR therapeutic range for Vitamin K anta gonist therapy: Standard Dose (moderate intensity therapeutic range): 2.0 - 3.0 Higher intensity therapeutic range 2.5 - 3.5 :57 PT (Prothrobim Time) Comments: PATIENT NOT FASTINGPERFORMED BY: [place] [address] [facility] [id number] Information: [id number] ([id number]) Prothrombin Time 42.7 {sec} (Abnormal) Range: 9.1-12.0 INR 4.1 (Abnormal) Range: 0.8-1.2 Comments: Client Requested Flag Reference interval is for non- anticoagulated patients. . Suggested INR therapeutic ra nge for Vitamin K antagonist therapy: Standard Dose (moderate intensity therapeutic range): 2.0 - 3.0 Higher intensity therapeutic range 2.5 - 3.5 :00 PT (Prothrobim Time) Comments: PATIENT NOT FASTINGPERFORMED BY: [facility] [facility] [id number] Information: [id number] ([id number]) Prothrombin Time 13.4 {sec} (Abnormal) Range: 9.1-12.0 INR 1.3 (Abnormal) Range: 0.8-1.2 Comments: Reference interval is for non-anticoagulated patients. . Suggested INR therapeutic range for Vitamin K anta gonist therapy: Standard Dose (moderate intensity therapeutic range): 2.0 - 3.0 Higher intensity therapeutic range 2.5 - 3.5 :43 PT (Prothrobim Time) Comments: PATIENT NOT FASTINGPERFORMED BY: [place] [address] [facility] [id number] Information: [id number] ([id number]) Prothrombin Time 18.4 {sec} (Abnormal) Range: 9.1-12.0 INR 1.8 (Abnormal) Range: 0.8-1.2 Comments: Reference interval is for non-anticoagulated patients. . Suggested INR therapeutic range for Vitamin K anta gonist therapy: Standard Dose (moderate intensity therapeutic range): 2.0 - 3.0 Higher intensity therapeutic range 2.5 - 3.5 :31 PT (Prothrobim Time) Comments: PATIENT NOT FASTINGPERFORMED BY: [facility] [facility] [id number] Information: [id number] ([id number]) Prothrombin Time 19.8 {sec} (Abnormal) Range: 9.1-12.0 INR 1.9 (Abnormal) Range: 0.8-1.2 Comments: Reference interval is for non-anticoagulated patients. . Suggested INR therapeutic range for Vitamin K anta gonist therapy: Standard Dose (moderate intensity therapeutic range): 2.0 - 3.0 Higher intensity therapeutic range 2.5 - 3.5 :15 PT (Prothrobim Time) Comments: PATIENT NOT FASTINGPERFORMED BY: [facility] [facility] [id number] Information: [id number] ([id number]) Prothrombin Time 22.4 {sec} (Abnormal) Range: 9.1-12.0 INR 2.2 (Abnormal) Range: 0.8-1.2 Comments: Reference interval is for non-anticoagulated patients. . Suggested INR therapeutic range for Vitamin K anta gonist therapy: Standard Dose (moderate intensity therapeutic range): 2.0 - 3.0 Higher intensity therapeutic range 2.5 - 3.5 :40 PT (Prothrobim Time) Comments: STANDING ORDER; PATIENT NOT FASTINGPERFORMED BY: [facility] [facility] [id number] Information: [id number] ([id number]) Prothrombin Time 22.1 {sec} (Abnormal) Range: 9.1-12.0 INR 2.1 (Abnormal) Range: 0.8-1.2 Comments: Reference interval is for non-anticoagulated patients. . Suggested INR therapeutic range for Vitamin K anta gonist therapy: Standard Dose (moderate intensity therapeutic range): 2.0 - 3.0 Higher intensity therapeutic range 2.5 - 3.5 :04 PT (Prothrobim Time) Comments: PATIENT NOT FASTINGPERFORMED BY: [place] [address] [facility] [id number] Information: [id number] ([id number]) Prothrombin Time 41.7 {sec} (Abnormal) Range: 9.1-12.0 INR 4.0 (Abnormal) Range: 0.8-1.2 Comments: Client Requested Flag Reference interval is for non- anticoagulated patients. . Suggested INR therapeutic ra nge for Vitamin K antagonist therapy: Standard Dose (moderate intensity therapeutic range): 2.0 - 3.0 Higher intensity therapeutic range 2.5 - 3.5 :27 PT (Prothrobim Time) Comments: STANDING ORDER; PATIENT NOT FASTINGPERFORMED BY: [facility] [facility] [id number] Information: [id number] ([id number]) Prothrombin Time 34.2 {sec} (Abnormal) Range: 9.1-12.0 INR 3.3 (Abnormal) Range: 0.8-1.2 Comments: Reference interval is for non-anticoagulated patients. . Suggested INR therapeutic range for Vitamin K anta gonist therapy: Standard Dose (moderate intensity therapeutic range): 2.0 - 3.0 Higher intensity therapeutic range 2.5 - 3.5 :36 Prothrombin Time (PT) Comments: PATIENT WAS FASTINGPERFORMED BY: [facility] [facility] [id number] Prothrombin Time 28.4 {sec} (Abnormal) Range: 9.1-12.0 INR 2.7 (Abnormal) Range: 0.8-1.2 Comments: Reference interval is for non-anticoagulated patients. . Suggested INR therapeutic range for Vitamin K anta gonist therapy: Standard Dose (moderate intensity therapeutic range): 2.0 - 3.0 Higher intensity therapeutic range 2.5 - 3.5 :15 PT (Prothrobim Time) Comments: STANDING ORDER; PATIENT NOT FASTINGPERFORMED BY: [place] [address] [facility] [id number] Information: [id number] ([id number]) Prothrombin Time 40.5 {sec} (Abnormal) Range: 9.1-12.0 INR 3.9 (Abnormal) Range: 0.8-1.2 Comments: Client Requested Flag Reference interval is for non- anticoagulated patients. . Suggested INR therapeutic ra nge for Vitamin K antagonist therapy: Standard Dose (moderate intensity therapeutic range): 2.0 - 3.0 Higher intensity therapeutic range 2.5 - 3.5 :48 PT (Prothrobim Time) Comments: STANDING ORDER; PATIENT NOT FASTINGPERFORMED BY: [facility] [facility] [id number] Information: [id number] ([id number]) Prothrombin Time 28.8 {sec} (Abnormal) Range: 9.1-12.0 INR 2.8 (Abnormal) Range: 0.8-1.2 Comments: Reference interval is for non-anticoagulated patients. . Suggested INR therapeutic range for Vitamin K anta gonist therapy: Standard Dose (moderate intensity therapeutic range): 2.0 - 3.0 Higher intensity therapeutic range 2.5 - 3.5 :29 PT (Prothrobim Time) Comments: STANDING ORDER; PATIENT NOT FASTINGPERFORMED BY: [place] [address] [facility] [id number] Information: [id number] ([id number]) Prothrombin Time 14.0 {sec} (Abnormal) Range: 9.1-12.0 INR 1.3 (Abnormal) Range: 0.8-1.2 Comments: Reference interval is for non-anticoagulated patients. . Suggested INR therapeutic range for Vitamin K anta gonist therapy: Standard Dose (moderate intensity therapeutic range): 2.0 - 3.0 Higher intensity therapeutic range 2.5 - 3.5 :14 PT (Prothrobim Time) (53080) Comments: Order Date: 02/20/13OV Order #: [id number] ID: [id number]: 453.42 - DVT (453.42) INR 2.6 (Normal) PTP 26.2 s (Abnormal) Range: 11.9-14.4 :48 PT (Prothrobim Time) Comments: STANDING ORDER; PATIENT NOT FASTINGPERFORMED BY: [employer] Cswmwf[address] [facility] [id number] Information: [id number] ([id number]) Prothrombin Time 25.7 {sec} (Abnormal) Range: 9.1-12.0 INR 2.5 (Abnormal) Range: 0.8-1.2 Comments: Reference interval is for non-anticoagulated patients. . Suggested INR therapeutic range for Vitamin K anta gonist therapy: Standard Dose (moderate intensity therapeutic range): 2.0 - 3.0 Higher intensity therapeutic range 2.5 - 3.5 8-Sht-341350:40 Urinalysis, Office (60637) UA - BILIRUBIN Negative (Normal) UA - [...] (Prothrobim Time) Comments: PATIENT NOT FASTINGPERFORMED BY: [facility] [facility] [id number] Information: [id number] ([id number]) Prothrombin Time 39.8 {sec} (Abnormal) Range: 9.1-12.0 INR 3.8 (Abnormal) Range: 0.8-1.2 Comments: Client Requested Flag Reference interval is for non- anticoagulated patients. . Suggested INR therapeutic ra nge for Vitamin K antagonist therapy: Standard Dose (moderate intensity therapeutic range): 2.0 - 3.0 Higher intensity therapeutic range 2.5 - 3.5 03-Haw-070468:34 Aerobic Bacterial Culture Comments: PERFORMED BY: [address] [id number] Information: SRC: Result 1 Mixed skin irais (Normal) Aerobic Bacterial Culture Final report (Normal) 30-Dsc-482475:31 Metabolic Panel, Basic Comments: PATIENT NOT FASTINGPERFORMED BY: [place] [address] [facility] [id number] Information: [id number] ([id number]) Calcium, Serum 9.3 mg/dL (Normal) Range: 8.7-10.2 [...] Glucose, Serum 95 mg/dL (Normal) Range: 65-99 2-Sbr-682192:28 PT (Prothrobim Time) Comments: PATIENT NOT FASTINGPERFORMED BY: [place] [address] [facility] [id number] Information: [id number] ([id number]) Prothrombin Time 42.0 {sec} (Abnormal) Range: 9.1-12.0 INR 4.1 (Abnormal) Range: 0.8-1.2 Comments: Client Requested Flag Reference interval is for non- anticoagulated patients. . Suggested INR therapeutic ra nge for Vitamin K antagonist therapy: Standard Dose (moderate intensity therapeutic range): 2.0 - 3.0 Higher intensity therapeutic range 2.5 - 3.5 30-Zoi-011969:42 PT INR 2.2 (Normal) PTP 23.1 s (Abnormal) Range: 11.9-14.4 96-Iyg-594071:00 PT (Prothrobim Time) Comments: PATIENT NOT FASTINGPERFORMED BY: [address] [id number] Information: [id number] ([id number]) Prothrombin Time 34.7 {sec} (Abnormal) Range: 9.1-12.0 INR 3.3 (Abnormal) Range: 0.8-1.2 Comments: Reference interval is for non-anticoagulated patients. . Suggested INR therapeutic range for Vitamin K anta gonist therapy: Standard Dose (moderate intensity therapeutic range): 2.0 - 3.0 Higher intensity therapeutic range 2.5 - 3.5 :09 PT (Prothrobim Time) Comments: PATIENT NOT FASTINGPERFORMED BY: [place] [address] [facility] [id number] Information: [id number] ([id number]) Prothrombin Time 23.6 {sec} (Abnormal) Range: 9.1-12.0 INR 2.3 (Abnormal) Range: 0.8-1.2 Comments: Reference interval is for non-anticoagulated patients. . Suggested INR therapeutic range for Vitamin K anta gonist therapy: Standard Dose (moderate intensity therapeutic range): 2.0 - 3.0 Higher intensity therapeutic range 2.5 - 3.5 99-Lvv-129025:25 PT (Prothrobim Time) Comments: PATIENT NOT FASTINGPERFORMED BY: [facility] [facility] [id number] Information: [id number] ([id number]) Prothrombin Time 11.9 {sec} (Normal) Range: 9.1-12.0 INR 1.1 (Normal) Range: 0.8-1.2 Comments: Reference interval is for non-anticoagulated patients. . Suggested INR therapeutic range for Vitamin K anta gonist therapy: Standard Dose (moderate intensity therapeutic range): 2.0 - 3.0 Higher intensity therapeutic range 2.5 - 3.5 52-Pke-10535:39 AORTA Radiology Report See Note (Normal) Comments: [...] Adame M.D.November 22, 2012 at 9:42:03 AM [id number] Signed GP/GP If you are the referring physician and would like to consult with theradiologist who provided this interpretation , please contact Anoop Dumont at [phone]. If this radiologist is unavailable, youwill be directed to another radiologist to assist. If you are a patient with a question regarding this re port, pleasecontactyour referring physician directly. Professional Interpretation Provided By: [employer], Phone , These documents contain legally protected [...] the return or destructionofthese documents. Dictated on 11/22/12 0942 by Garret Adame MDribed on 11/22/1245 by ITS IMPORTSign by Jaxon Adame MD on 11/22/1246 Sign by: ____ Jaxon Adame MD 96-Gef-673206:11 PT (Prothrobim Time) (64550) Comments: PATIENT NOT FASTINGPERFORMED BY: [facility]lp[facility] [id number] Prothrombin Time 14.9 {sec} (Abnormal) Range: 9.1-12.0 INR 1.4 (Abnormal) Range: 0.8-1.2 Comments: Reference interval is for non-anticoagulated patients. . Suggested INR therapeutic range for Vitamin K anta gonist therapy: Standard Dose (moderate intensity therapeutic range): 2.0 - 3.0 Higher intensity therapeutic range 2.5 - 3.5 61-Ztr-91382:37 BRAIN W/WO CONTRAST Radiology Report See Note [...] Maki M.D.October 17, 2012 at 11:30:50 PM [id number] Signed AH/AH If you are the referring physician and would like to consult with theradiologist who provided this interpretation, please contact Fidelia alejandra M.D. at . If this radiologist is unavailable,you will be directed to another radiologist to assist. If you are a patient with a question regarding this report, pleasecontactyour referr ing physician directly. Professional Interpretation Provided By: [employer], Phone , These documents contain legally protected [...] on 10/17/122337 Sign by: DEANGELO MAKI MD 3-Qqa-029243:27 HgA1C , Office (67899) HgA1C , Office 5.8 % (Normal) Range: 4.6 - 7.1 6-Fsp-676268:23 PELVIC (NON ) Radiology Report See Note [...] Adame M.D.October 03, 2012 at 3:27:29 PM [id number] Signed GP/GP If you are the referring physician and would li ke to consult with theradiologist who provided this interpretation, please contact Anoop Dumont at [phone]. If this radiologist is unavailable, youwill be directed to another radiologist to assist. If you are a patient with a question regarding this report, pleasecontactyour referring physician directly. Professional Interpretation Provided By: eEvent, Phone ,Fax These documents contain legally protected [...] destructionofthese documents. Dictated on 10/03/12 1412 by Garret Adame MDribed on 10/03/12 1543 by ITS IMPORTSign by [...] Adame M.D.October 03, 2012 at 3:27:29 PM [id number] Signed GP/GP If you are the referring physician and would li ke to consult with theradiologist who provided this interpretation, please contact Anoop Dumont at [phone]. If this radiologist is unavailable, youwill be directed to another radiologist to assist. If you are a patient with a question regarding this report, pleasecontactyour referring physician directly. Professional Interpretation Provided By: e[employer], Phone ,Fax These documents contain legally protected [...] MD on 10/03/12 1541 Sign by: Leatha LEONJaxon 30-Sep-20120:00 ABDOMEN/PELVIS WITH CONTRAST Radiology Report See [...] Mayberry M.D.September 30, 2012 at 7:30:49 PM [id number] Sig vadim TT/TT If you are the referring physician and would like to consult with theradiologist who provided this interpretation, please contact Kym Foley M.D. at [phone]. If this radiologist is unavailable, youwillbe directed to another radiologist to assist. If you are a patient with a question regarding this report, pleasecontactyour referring physician directly. Professional Interpretation Provided By: eEvent, Phone , These documents contain legally protected [...] on 09/30/121938 Sign by: Kym Mayberry MD 03-Qgm-561035:49 PT (Prothrobim Time) Comments: PATIENT NOT FASTINGPERFORMED BY: [facility] [id number] Information: [id number] (35093) Prothrombin Time 14.2 {sec} (Abnormal) Range: 9.1-12.0 INR 1.4 (Abnormal) Range: 0.8-1.2 Comments: Reference interval is for non-anticoagulated patients. . Suggested INR therapeutic range for Vitamin K anta gonist therapy: Standard Dose (moderate intensity therapeutic range): 2.0 - 3.0 Higher intensity therapeutic range 2.5 - 3.5 5-Oce-207100:22 PT (Prothrobim Time) Comments: PATIENT NOT FASTINGPERFORMED BY: [facility] [facility] [id number] Information: [id number] (57463) Prothrombin Time 30.3 {sec} (Abnormal) Range: 9.1-12.0 INR 3.0 (Abnormal) Range: 0.8-1.2 Comments: Reference interval is for non-anticoagulated patients. . Suggested INR therapeutic range for Vitamin K anta gonist therapy: Standard Dose (moderate intensity therapeutic range): 2.0 - 3.0 Higher intensity therapeutic range 2.5 - 3.5 :01 PTT (ACTIVATED PARTIAL Comments: PATIENT NOT FASTINGPERFORMED BY: [facility] [facility] [id number] THROMBOPLASTIN TIME) (65817) aPTT 46 {sec} (Abnormal) Range: 24-33 Comments: This test has not been validated for monitoring unfractionated heparintherapy. aPTT-based therapeutic ranges for unfractionated heparintherapy have not been established. For general guidelines onHeparin monitoring, refer to the [facility] Directory of Services. :01 PT (PROTHROMBIN TIME) (75665) Comments: PATIENT NOT FASTINGPERFORMED BY: [facility] [facility] [id number] Prothrombin Time 33.5 {sec} (Abnormal) Range: 9.1-12.0 INR 3.3 (Abnormal) Range: 0.8-1.2 Comments: Reference interval is for non-anticoagulated patients. . Suggested INR therapeutic range for Vitamin K anta gonist therapy: Standard Dose (moderate intensity therapeutic range): 2.0 - 3.0 Higher intensity therapeutic range 2.5 - 3.5 : PROLACTIN (38248) Comments: PATIENT NOT FASTINGPERFORMED BY: [facility] CenterAvdgzb7612 [facility] [id number] Prolactin 26.7 ng/mL (Abnormal) Range: 4.8-23.3 :01 METABOLIC PANEL, Comments: PATIENT NOT FASTINGPERFORMED BY: [facility]CoSaint [facility] CenterZadswt5580 [facility] [id number] Information: [id number] COMPREHENSIVE (54687) ALT (SGPT) 34 [iU]/L (Abnormal) Range: 0-32 [...] 107 mg/dL (Abnormal) Range: 65-99 :01 TSH (69817) Comments: PATIENT NOT FASTINGPERFORMED BY: [place] [address] [facility] [id number] TSH 3.350 {uIU/mL} (Normal) Range: 0.450-4.500 :01 CBC (AUTO) (48790) Comments: PATIENT NOT FASTINGPERFORMED BY: [address] [id number] Platelets 235 {x10E3/uL} (Normal) Range: 140-415 RDW 13.7 % (Normal) Range: 12.3-15.4 MCHC 32.4 g/dL (Normal) Range: 31.5-35.7 MCH 29.8 pg (Normal) Range: 26.6-33.0 MCV 92 fL (Normal) Range: 79-97 Hematocrit 39.5 % (Normal) Range: 34.0-46.6 Hemoglobin 12.8 g/dL (Normal) Range: 11.1-15.9 RBC 4.30 {x10E6/uL} (Normal) Range: 3.77-5.28 WBC 5.4 {x10E3/uL} (Normal) Range: 4.0-10.5 :01 TEST - SERUM Comments: PATIENT NOT FASTINGPERFORMED BY: [address] [id number] QUANTITATIVE (HCG) (53211) hCG,Beta Subunit,Qual,Serum Negative m[iU]/mL (Normal) 14-Jdc-202242:40 Prothrombin Time (PT) Comments: PERFORMED BY: [address] [id number] Prothrombin Time 23.2 {sec} (Abnormal) Range: 9.1-12.0 INR 2.2 (Abnormal) Range: 0.8-1.2 Comments: Reference interval is for non-anticoagulated patients. . Suggested INR therapeutic range for Vitamin K anta gonist therapy: Standard Dose (moderate intensity therapeutic range): 2.0 - 3.0 Higher intensity therapeutic range 2.5 - 3.5 4-Vfs-599796:02 PT (Prothrobim Time) Comments: PATIENT NOT FASTINGPERFORMED BY: [address] StreetDublin [place] [id number] Information: [id number] ([id number]) Prothrombin Time 42.1 {sec} (Abnormal) Range: 9.1-12.0 INR 4.1 (Abnormal) Range: 0.8-1.2 Comments: Client Requested Flag Reference interval is for non- anticoagulated patients. . Suggested INR therapeutic ra nge for Vitamin K antagonist therapy: Standard Dose (moderate intensity therapeutic range): 2.0 - 3.0 Higher intensity therapeutic range 2.5 - 3.5 66-Pwf-377017:23 PT (Prothrobim Time) Comments: PATIENT NOT FASTINGPERFORMED BY: [place] [address] [facility] [id number] Information: [id number] ([id number]) Prothrombin Time 13.8 {sec} (Abnormal) Range: 9.1-12.0 INR 1.3 (Abnormal) Range: 0.8-1.2 Comments: Reference interval is for non-anticoagulated patients. . Suggested INR therapeutic range for Vitamin K anta gonist therapy: Standard Dose (moderate intensity therapeutic range): 2.0 - 3.0 Higher intensity therapeutic range 2.5 - 3.5 42-Rkp-874322:29 PT (Prothrobim Time) Comments: PATIENT NOT FASTINGPERFORMED BY: [place] [address] [facility] [id number] Information: [id number] ([id number]) Prothrombin Time 13.1 {sec} (Abnormal) Range: 9.1-12.0 INR 1.2 (Normal) Range: 0.8-1.2 Comments: Reference interval is for non-anticoagulated patients. . Suggested INR therapeutic range for Vitamin K anta gonist therapy: Standard Dose (moderate intensity therapeutic range): 2.0 - 3.0 Higher intensity therapeutic range 2.5 - 3.5 12-Iqg-052990:10 PT (Prothrobim Time) Comments: PATIENT NOT FASTINGPERFORMED BY: [place] [address] [facility] [id number] Information: [id number] (77045) Prothrombin Time 15.3 {sec} (Abnormal) Range: 9.1-12.0 INR 1.5 (Abnormal) Range: 0.8-1.2 Comments: Reference interval is for non-anticoagulated patients. . Suggested INR therapeutic range for Vitamin K anta gonist therapy: Standard Dose (moderate intensity therapeutic range): 2.0 - 3.0 Higher intensity therapeutic range 2.5 - 3.5 :30 Rapid Flu (99498 x 2) Influenza A Ag negative (Normal) :45 PT (Prothrobim Time) Comments: PATIENT NOT FASTINGPERFORMED BY: [address] [id number] Information: [id number] ([id number]) Prothrombin Time 16.4 {sec} (Abnormal) Range: 9.1-12.0 INR 1.6 (Abnormal) Range: 0.8-1.2 Comments: Reference interval is for non-anticoagulated patients. . Suggested INR therapeutic range for Vitamin K anta gonist therapy: Standard Dose (moderate intensity therapeutic range): 2.0 - 3.0 Higher intensity therapeutic range 2.5 - 3.5 :32 PT (Prothrobim Time) Comments: PATIENT NOT FASTINGPERFORMED BY: [address] [id number] Information: [id number] ([id number]) Prothrombin Time 21.6 {sec} (Abnormal) Range: 9.1-12.0 INR 2.1 (Abnormal) Range: 0.8-1.2 Comments: Reference interval is for non-anticoagulated patients. . Suggested INR therapeutic range for Vitamin K anta gonist therapy: Standard Dose (moderate intensity therapeutic range): 2.0 - 3.0 Higher intensity therapeutic range 2.5 - 3.5 :58 Prothrombin Time (PT) Comments: PERFORMED BY: [address] [id number] Prothrombin Time 15.6 {sec} (Abnormal) Range: 9.1-12.0 INR 1.5 (Abnormal) Range: 0.8-1.2 Comments: Reference interval is for non-anticoagulated patients. . Suggested INR therapeutic range for Vitamin K anta gonist therapy: Standard Dose (moderate intensity therapeutic range): 2.0 - 3.0 Higher intensity therapeutic range 2.5 - 3.5 94-Yja-610044:28 PT INR 2.2 (Normal) PTP 22.4 s [...] 200-240 mg/dL Borderline >240 mg/dL High Risk 11-Lnp-451335:19 PT INR 2.1 (Normal) PTP 21.7 s [...] MIXED GRAM POSITIVE ORGANISMS :07 Urinalysis, Office (54609) UA - BILIRUBIN Negative (Normal) UA - BLOOD Negative (Normal) UA - GLUCOSE Negative (Normal) UA - KETONES Negative mg/dL (Normal) UA - LEUKOCYTE ESTERASE Small (Normal) UA - NITRITE Negative (Normal) UA - PH 6.5 (Normal) UA - PROTEIN Negative mg/dL (Normal) UA - SPECIFIC GRAVITY 1.010 (Normal) URINE UROBILINGN DENISE TIMED Normal mg/dL (Normal) 91-Fhr-299857:52 PT INR 1.6 (Normal) PTP 18.2 s (Abnormal) Range: 11.9-14.4 97-Qme-400508:12 PT INR 1.1 (Normal) PTP 13.6 s (Normal) Range: 11.9-14.4 60-Spk-36566:01 GALLBLADDER Radiology Report See Note (Normal) Comments: [...] size of the right kidney. The right ypsdhilnldpjcy20.5 cm. Normal renal cortex. The renal co rtex measures 1.4 cm. Thereisno demonstrated renal mass or cyst. There are no demonstrated renalcalculi. There is no hydronephrosis. There is no ascites. IMPRESSION:Cholelithiasis.Fatty infiltration of the liver. To consult with a radiologist regarding this report, please call our [id number] line @ Dictated on 09/25/11 0903 by Leatha LEON,Jessicaranscribed on 09/25/11 1014 by ITS IMPORTSign by Leatha LEON,Jaxon on 09/25/11 1015 Sign by: Jaxon Adame MD HPYL < 0.9 U/mL Range: 0.0-0.8 28:52 (Normal) Comments: Negative <0.9 Indeterminate 0.9 - 1.0 Positive >1.0Performed at: [facility] [address] [id number] Director: Chloé Mccarthy MD, Phone: [phone] :[phone] PT INR 2.0 (Normal) PTP 21.8 [...] Comments: inr; PATIENT NOT FASTINGPERFORMED BY: [facility] Dfyflu9447 [facility] [id number] Information: [id number] (35153) Prothrombin Time 16.3 {sec} (Abnormal) Range: 9.1-12.0 [...] Report See Note (Normal) Comments: Exam Number: [id number] he patient is a 40-year-old female with [...] - 222. 3Postmenopausal 0.1 - 0.8Performed at: [facility] [address] [id number] Director: Chloé Mccarthy MD, Phone: [phone] :45 PRO TIME INR 3.3 (Normal) PROTIME 34.2 s (Abnormal) Range: 9.1-11.7 44-Mzp-162197:26 PT (Prothrobim Time) Comments: PATIENT NOT FASTINGPERFORMED BY: [facility] [address] [id number] Information: [id number] (59716) Prothrombin Time 41.4 {sec} (Abnormal) Range: 9.1-12.0 INR 4.0 (Abnormal) Range: 0.8-1.2 Comments: Client Requested Flag Reference interval is for non- anticoagulated patients. . Suggested INR therapeutic ra nge for Vitamin K antagonist therapy: Standard Dose (moderate intensity therapeutic range): 2.0 - 3.0 Higher intensity therapeutic range 2.5 - 3.5 8-Ymk-543872:51 CHEST, PA AND LATERAL (MT) Radiology Report See Note (Normal) Comments: Exam Number: [id number] CHEST PA AND LATERAL PA and lateral [...] abnormality is seen. Reported By: JAXON ADAME 6-Veb-611431:49 Influenza B Ag (71957) Comments: neg Influenza A Ag negative (Normal) 5-Qxm-514515:49 Influenza A Ag (60318) Comments: neg Influenza A Ag negative (Normal) 15-Hho-030116:56 PRO TIME INR 2.0 (Normal) PROTIME 20.8 s (Abnormal) Range: 9.1-11.7 6-Zjy-935313:47 CHEST WITH CONTRAST Radiology Report See Note (Normal) Comments: Exam Number: [id number] CT SCAN OF THE CHEST WITH CONTRAST [...] 4.2-5.4 WBC 7.1 K/mm3 (Normal) Range: 4.4-11.0 2-Nre-477556:11 PRO TIME INR 1.7 (Normal) PROTIME 17.2 s (Abnormal) Range: 9.1-11.7 76-Mnd-871272:00 PRO TIME INR 2.2 (Normal) PROTIME 24.2 s (Abnormal) Range: 9.1-11.7 04-Qsr-195815:58 PRO TIME INR 1.8 (Normal) PROTIME 19.8 s (Abnormal) Range: 9.1-11.7 42-Dnm-006664:55 REYNALDO-D [id number] Comments: FAX PT RESULTS REYNALDO-DIRECT SeeNote (Normal) Comments: Result: Negative :55 AT3 FUNCT 96165 103 % (Normal) Comments: FAX PT RESULTS Range: 75-135 Comments: Performed At: [facility] Tgupmagurk1858 DEMETRA Pimentel [id number] At: [facility] PNA5508 Evan LarsonDEMETRA [id number] At: [facility] Jcnsdj9277 [place], [place] [phone] :55 C-REACTIVE PROT 11.40 mg/L (Abnormal) Comments: [...] T PROT 7.5 g/dL (Normal) Range: 6.4-8.2 28-Req-841088:55 COMPLETE UA Comments: FAX PT RESULTS BACTERIA [...] 10 mm/h (Normal) Range: 0-20 :55 FACVL 286991 Comments: FAX PT RESULTS COMMENT Comment (Normal) Comments: Genetic counselors are available for health care providers to discuss results at [phone]. .Methodology:DNA analysis of the Factor V gene [...] in the workup for venous thrombosis include [id number] mutation in the factor II (prothrombin) gene,protein [...] mg/dL VLDL 26 mg/dL (Normal) Range: 5-40 34-Miq-804371:55 LUPUS [id number] Comments: FAX PT RESULTS DILUTE PT (dPT) [...] UR CREAT 115.7 mg/dL (Normal) :55 MTHFR [id number] Comments: FAX PT RESULTS COMMENT Comment (Normal) Comments: Genetic counselors are available to discuss these results with health care providers at [phone] .The MTHFR enzyme is responsible for creating the circulatingform of folate. Folate is important in homocysteine regula-tion. Defects in the MTHFR enzyme can indirectly causeelevated homocysteine levels. The C677T mutation in theMTH FR gene can cause elevated homocysteine levels in is[place]-viduals with insufficient folate, particularly when thereare two mutations present. The Z1888N mutation has not beenassociated with elevated homoc ysteine levels unless a I908Vglwyhjrr is also present. Elevated serum homocysteine levelshave [...] f or the most accurateinterpretation. . MTHFR [id number] Comment (Normal) Comments: Result: X5548E/O9080OOgw copies of the same mutation (M5538I/V4363X) identified .Interpretation: .This patient's sample was analyzed for the MTHFR ynmqtszvsG001N and C0725B. Two copies of the Z4887D mutation wereidentified. Results for the C677T mutation were negative.Elevated homocyste ine levels have not been reported when twocopies of the Q5558Q mutation have been found. The diagnosisof hyperhomocysteinemia can not rely on DNA testing alonebut should take into consideration clinical findings andother studies, such as serum homocysteine levels. BecauseMTHFR mutations and their associated risks are inherited,genetic counseling and testing of at-risk family membersshould be consider ed. . 02-Wcg-992449:55 PRO TIME Comments: FAX PT RESULTS INR 2.2 (Normal) PROTIME 24.2 s (Abnormal) Range: 9.1-11.7 37-Jvq-020614:55 PROT C 776359 Comments: FAX PT RESULTS PROT C,ST936933 11 % (Abnormal) Range: 74-151 Comments: A [...] fluorouracil canalso reduce PC levels. PROTEIN C 45134 50 % (Abnormal) Range: 70-140 Comments: A [...] L-asparaginse or fluorouracil canalso reduce PC levels. 63-Ibx-253525:55 PROT S 673568 Comments: FAX PT RESULTS PROTEIN S, FREE [...] the PS in blood is bound to N5d-lzlnskgeorqhoo (C4b-BP). C4b-BP is and acute phase reactant whoseconcentration increases rapidly due to inflammatoryconditions. This serves to increase bound PS antigen andproduces a relative decrease of free PS antigen and PSactivit y. Conditions that can cause an increase in C5z-HAmrqnpm include: , oral contraceptive use,diabetes mellitus, systemic [...] the PS in blood is bound to W8z-fnvskwcmlhlmqu (C4b-BP). C4b-BP is and acute phase reactant whoseconcentration increases rapidly due to inflammatoryconditions. This serves to increase bound PS antigen andproduces a relative decrease of free PS antigen and PSactivit y. Conditions that can cause an increase in Z7t-VXtmknnr include: , oral contraceptive use,diabetes mellitus, systemic lupus erythematosus, AIDS andrenal allograft rejection. PROTEIN S,TOTAL 73 % (Normal) Range: 58-150 RHEUMATOID FAC < 10 {IU/mL} (Normal) Comments: FAX PT RESULTS 2:55 TSH 2.52 {uIU/mL} Comments: FAX PT RESULTS 2:55 (Normal) Range: 0.358-3.74 VITAMIN B12 622 pg/mL (Normal) Comments: FAX PT RESULTS 2:55 Range: 254-1320 82-Gbx-848268:57 PRO TIME INR 2.3 (Normal) PROTIME 25.4 [...] s (Abnormal) Range: 9.1-11.7 :35 PT/INR, Office (94896) INR 1.8 (Normal) :46 PT/INR, Office (56620) Comments: done BC INR 2.6 (Normal) :54 PT/INR, Office (40781) INR 1.2 (Normal) :00 CBCD,SMEAR DIFF ATYPICAL [...] T PROT 7.3 g/dL (Normal) Range: 6.4-8.2 78-Hhg-208275:00 LIPID CHOL 176 mg/dL (Normal) Comments: <200 [...] mg/dL VLDL 25 mg/dL (Normal) Range: 5-40 35-Wgx-718997:00 TSH 2.00 {uIU/mL} (Normal) Range: 0.358-3.74 06-Ivn-520149:41 PT/INR, Office (84340) Comments: done>Wf. INR 1.6 (Normal) :56 PRO TIME INR 2.2 (Normal) PROTIME 24.4 s (Abnormal) Range: 9.1-11.7 :25 PT/INR, Office (58009) INR 2.8 (Normal) :40 PT/INR, Office (18214) INR 3.5 (Normal) :42 PT/INR, Office (25304) INR 3.5 (Normal) :38 CBCD,SMEAR DIFF BAND [...] Abnormal CT of the abdomen : Reviewed Mussel Farmer Letter Indication: Abnormal CT of the abdomen [...] of breath Shortness of breath : Reviewed Mussel Farmer Letter Indication: Shortness of breath Deep vein [...] BMI 50.0-59.9, adult Sinusitis, bacterial : Reviewed Mussel Farmer Letter Indication: Sinusitis, bacterial External otitis of both ears due to fungus : Eprescribed prescriptions (G8553) Indication: External otitis of both ears due to fungus Diastolic dysfunction : Continue Current Prescription(s) Indication: Diastolic dysfunction Diastolic dysfunction : Reviewed Mussel Farmer Letter Indication: Diastolic dysfunction Nonsmoker : Eprescribed [...] Sleep disturbance Cardiac arrhythmia, unspecified : Reviewed Mussel Farmer Letter Indication: Cardiac arrhythmia, unspecified Intermittent palpitations : Reviewed Lab Indication: Intermittent palpitations Intermittent palpitations : Reviewed Diagnostic Tests Indication: Intermittent palpitations Intermittent palpitations : Reviewed Mussel Farmer Letter Indication: Intermittent palpitations Nonsmoker : Eprescribed [...] Unspecified asthma with (acute) exacerbation : Reviewed Mussel Farmer Letter Indication: Unspecified asthma with (acute) exacerbation [...] HYPERCOAGULABLE STATE Other primary cardiomyopathies : Reviewed Mussel Farmer Letter Indication: Other primary cardiomyopathies Bronchitis : [...] VEINS SCHIZOPHRENIFORM DISORDER, CHRONIC STATE : Reviewed Mussel Farmer Letter: dr Egan Indication: SCHIZOPHRENIFORM DISORDER, CHRONIC [...] vein thrombosis, unspecified laterality Amenorrhea : Reviewed Mussel Farmer Letter Indication: Amenorrhea Other primary cardiomyopathies : HTN/CAD Red Flags Indication: Other primary cardiomyopathies Other primary cardiomyopathies : Reviewed Mussel Farmer Letter Indication: Other primary cardiomyopathies Other primary cardiomyopathies : Reviewed Lab Indication: Other primary cardiomyopathies Acute bronchitis : *URI Treatment Indication: Acute bronchitis Acute bronchitis : Antibiotic Usage Education - Female Indication: Acute bronchitis Amenorrhea : Diet, Exercise, and Wt loss Indication: Amenorrhea Other primary cardiomyopathies : HTN/CAD Red Flags Indication: Other primary cardiomyopathies Planned Observations TSH (41757)Indication: Type II diabetes mellitus, well controlled On: Request URINALYSIS, W/ MICRO (91716)Indication: Type II diabetes mellitus, well controlled On: Request MICROALBUMIN: CREATININE RATIO (06881) AND (70919)Indication: Type II diabetes mellitus, well controlled On: Request METABOLIC PANEL, COMPREHENSIVE (64227)Indication: Type II diabetes mellitus, well controlled On: Request LIPOPROTEIN, BLD, BY NMR (04616)Indication: Type II diabetes mellitus, well controlled On: Request LIPID PANEL (17089)Indication: Type II diabetes mellitus, well controlled On: Request CBC W/AUTO DIFF WBC (09970)Indication: Type II diabetes mellitus, well controlled On: Request PARATHORMONE (44783)Indication: Hyperprolactinemia On: 23-Aom-791349: Request CALCIFEDIOL (76546)Indication: Vitamin D deficiency On: 56 Request MICROALBUMIN: CREATININE RATIO (54011) AND (10188)Indication: Type II diabetes mellitus, well controlled On: : Request METABOLIC PANEL, COMPREHENSIVE (63675)Indication: Type II diabetes mellitus, well controlled On: : Request LIPID PANEL (87960)Indication: Type II diabetes mellitus, well controlled On: Request CBC with auto diff (54158)Indication: Type II diabetes mellitus, well controlled On: :56 Request PT (Prothrobim Time) (53928)Indication: Chronic anticoagulation On: 12-Aug-2017 Request PT (Prothrobim Time) (43680)Indication: Chronic anticoagulation On: 05-Aug-2017 Request PT (Prothrobim Time) (95613)Indication: Chronic anticoagulation On: 29-Jul-2017 Request PT (Prothrobim Time) (49439)Indication: Chronic anticoagulation On: 22-Jul-2017 Request PT (Prothrobim Time) (83333)Indication: Chronic anticoagulation On: 15-Jul-2017 Request PT (Prothrobim Time) (50313)Indication: Chronic anticoagulation On: 08-Jul-2017 Request PT (Prothrobim Time) (73938)Indication: Chronic anticoagulation On: 01-Jul-2017 Request IRON & TOTAL IRON BINDING CAPACITY (14716)Indication: Elevated LFTs On: 8-Urh-870124:38 Request TRANSFERRIN (90638)Indication: Elevated LFTs On: 4-Dbx-986590:38 Request FERRITIN (31788)Indication: Elevated LFTs On: 1-Qqo-200027:37 Request PT (Prothrobim Time) (69273)Indication: Chronic anticoagulation On: 24-Jun-2017 Request PT (Prothrobim Time) (51218)Indication: Chronic anticoagulation On: 17-Jun-2017 Request PT (Prothrobim Time) (09420)Indication: Chronic anticoagulation On: 10-Jun-2017 Request URINALYSIS, W/ MICRO (25074)Indication: Type II diabetes mellitus, well controlled On: 89-Jcg-038288:43 Request MICROALBUMIN: CREATININE RATIO (37504) AND (40521)Indication: Type II diabetes mellitus, well controlled On: 81-Zgm-434788:43 Request PT (Prothrobim Time) (59571)Indication: Chronic anticoagulation On: 03-Jun-2017 Request PT (Prothrobim Time) (32198)Indication: Chronic anticoagulation On: 27-May-2017 Request PT (Prothrobim Time) (07241)Indication: Chronic anticoagulation On: 20-May-2017 Request PT (Prothrobim Time) (50929)Indication: Chronic anticoagulation On: 13-May-2017 Request PT (Prothrobim Time) (97928)Indication: Chronic anticoagulation On: 06-May-2017 Request PT (Prothrobim Time) ([id number])Indication: Chronic anticoagulation On: 29-Apr-2017 Request PT (Prothrobim Time) (57853)Indication: Chronic anticoagulation On: 22-Apr-2017 Request PT (Prothrobim Time) (15053)Indication: Chronic anticoagulation On: 15-Apr-2017 Request PT (Prothrobim Time) (67522)Indication: Chronic anticoagulation On: 08-Apr-2017 Request PT (Prothrobim Time) ([id number])Indication: Chronic anticoagulation On: 01-Apr-2017 Request PT (Prothrobim Time) ([id number])Indication: Chronic anticoagulation On: 25-Mar-2017 Request PT (Prothrobim Time) ([id number])Indication: Chronic anticoagulation On: 18-Mar-2017 Request PT (Prothrobim Time) (68361)Indication: Chronic anticoagulation On: 11-Mar-2017 Request METABOLIC PANEL, COMPREHENSIVE (66653)Indication: SOB (shortness of breath) On: 09-Tbk-907668:51 Request PT (Prothrobim Time) ([id number])Indication: Chronic anticoagulation On: 04-Mar-2017 Request PT (Prothrobim Time) (57520)Indication: Chronic anticoagulation On: 25-Feb-2017 Request PT (Prothrobim Time) ([id number])Indication: Chronic anticoagulation On: 18-Feb-2017 Request PT (Prothrobim Time) (48865)Indication: Chronic anticoagulation On: 11-Feb-2017 Request PT (Prothrobim Time) ([id number])Indication: Chronic anticoagulation On: 04-Feb-2017 Request PT (Prothrobim Time) (79645)Indication: Chronic anticoagulation On: 28-Jan-2017 Request PT (Prothrobim Time) ([id number])Indication: Chronic anticoagulation On: 21-Jan-2017 Request PT (Prothrobim Time) (33658)Indication: Chronic anticoagulation On: 14-Jan-2017 Request PT (Prothrobim Time) (79161)Indication: Chronic anticoagulation On: 07-Jan-2017 Request PT (Prothrobim Time) ([id number])Indication: Chronic anticoagulation On: 31-Dec-2016 Request PT (Prothrobim Time) ([id number])Indication: Chronic anticoagulation On: 24-Dec-2016 Request PT (Prothrobim Time) ([id number])Indication: Chronic anticoagulation On: 17-Dec-2016 Request PT (Prothrobim Time) (57859)Indication: Chronic anticoagulation On: 10-Dec-2016 Request PT (Prothrobim Time) ([id number])Indication: Chronic anticoagulation On: 03-Dec-2016 Request PT (Prothrobim Time) (57445)Indication: Chronic anticoagulation On: 26-Nov-2016 Request PT (Prothrobim Time) ([id number])Indication: Chronic anticoagulation On: 05-Nov-2016 Request PT (Prothrobim Time) (58710)Indication: Chronic anticoagulation On: 29-Oct-2016 Request PT (PROTHROMBIN TIME) ([id number])Indication: EMBOLISM AND THROMBOSIS OF OTHER SPECIFIED VEINS On: 3-Jla-620973:31 Request Comments: STAT Sjogren Antibodies- Anti-SS-A/Anti-SS-B ([id number]: Abnormal pulmonary function test On: :35 Request RHEUMATOID FACTOR-QUANT ([id number])Indication: Abnormal pulmonary function test On: :35 Request REYNALDO (ANTINUCLEAR ANTIBODY) ([id number])Indication: Abnormal pulmonary function test On: :35 Request LIPASE ([id number])Indication: Diarrhea On: :56 Request LIPASE ([id number])Indication: Diarrhea On: :56 Request AMYLASE ([id number])Indication: Diarrhea On: :56 Request BNTP ([id number])Indication: SOB (shortness of breath) on exertion On: :47 Request D-Dimer ([id number])Indication: SOB (shortness of breath) on exertion On: :47 Request LIPID PANEL ([id number])Indication: SOB (shortness of breath) on exertion On: :47 Request CALCIFEDIOL ([id number])Indication: SOB (shortness of breath) on exertion On: :47 Request TSH (THYROID STIMULATING HORMONE) ([id number])Indication: SOB (shortness of breath) on exertion On: :46 Request METABOLIC PANEL, COMPREHENSIVE ([id number])Indication: SOB (shortness of breath) on exertion On: :46 Request CBC, PLATELETS & AUT DIFF ([id number])Indication: SOB (shortness of breath) on exertion On: :46 Request OVA & PARASITE DIR SMEAR ([id number])Indication: Diarrhea On: :33 Request OCCULT BLOOD FECES SCREEN ([id number])Indication: Diarrhea On: :33 Request LEUKOCYTE COUNT, FECAL ([id number])Indication: Diarrhea On: :33 Request C-DIFFICILE, STOOL ([id number])Indication: Diarrhea On: :33 Request SHERITA CULTURE-STOOL ([id number])Indication: Diarrhea On: :33 Request PT (Prothrobim Time) ([id number])Indication: Deep vein thrombosis, unspecified laterality On: 04-Apr-2015 Request PT (Prothrobim Time) ([id number])Indication: Deep vein thrombosis, unspecified laterality On: 05-Mar-2015 Request PT (Prothrobim Time) ([id number])Indication: Deep vein thrombosis, unspecified laterality On: 03-Feb-2015 Request PT (Prothrobim Time) ([id number])Indication: Deep vein thrombosis, unspecified laterality On: 04-Jan-2015 Request PT (Prothrobim Time) ([id number])Indication: Deep vein thrombosis, unspecified laterality On: 05-Dec-2014 Request PT (Prothrobim Time) ([id number])Indication: Deep vein thrombosis, unspecified laterality On: 05-Nov-2014 Request URINE SHERITA CULTURE (DENISE COL COUNT) ([id number])Indication: Lower urinary tract infection On: 7-Xck-047317:40 Request SHERITA CULTURE-OTHER ([id number])Indication: Wound drainage (Renamed from Drainage from wound) On: 75-Gnf-997799:45 Request URINE SHERITA CULTURE-IDENTIFICATN ([id number])Indication: Urinary frequency On: 2-Mml-688693:07 Request PT (Prothrobim Time) ([id number])Indication: Deep vein thrombosis, unspecified laterality On: 83-Lxj-076621:16 Request Comments: Standing order HELICOBACTER PYLORI ANTIBODY ([id number])Indication: Epigastric pain On: 05-Nfj-843468:22 Request URINALYSIS, W/ MICRO ([id number])Indication: Other primary cardiomyopathies On: 46-Iin-83849:54 Request TSH ([id number])Indication: Other primary cardiomyopathies On: :53 Request METABOLIC PANEL, COMPREHENSIVE ([id number])Indication: Other primary cardiomyopathies On: :53 Request CBC WITH MANUAL DIFF ([id number])Indication: Other primary cardiomyopathies On: 30-Yta-89472:53 Request LIPID PANEL ([id number])Indication: Other primary cardiomyopathies On: 20-Rbb-77503:53 Request PT (Prothrobim Time) ([id number])Indication: EMBOLISM AND THROMBOSIS OF OTHER SPECIFIED VEINS On: 63-Laq-33793:46 Request Comments: inr PT (Prothrobim Time) ([id number])Indication: Deep vein thrombosis, unspecified laterality On: 5-Gzq-388694:35 Request Comments: inr CBC (AUTO) ([id number])Indication: SOB (shortness of breath) on exertion On: 1-Rhf-129529:28 Request Folate ([id number])Indication: Fatigue On: 99-Rbu-344119:59 Request SED RATE ERYTHROCYTE ([id number])Indication: Fatigue On: 34-Qba-294952:59 Request VITAMIN B-12 (CYANOCOBALAMIN) ([id number])Indication: Fatigue On: 62-Wqh-479693:59 Request REYNALDO (ANTINUCLEAR ANTIBODY) ([id number])Indication: Fatigue On: 48-Vhz-395940:59 Request C-REACTIVE PROTEIN ([id number])Indication: Fatigue On: 15-Ipn-010811:59 Request METABOLIC PANEL, COMPREHENSIVE ([id number])Indication: Fatigue On: 69-Pfl-476843:59 Request RHEUMATOID FACTOR-QUANT ([id number])Indication: Fatigue On: 64-Ehe-455304:59 Request URINALYSIS, W/ MICRO ([id number])Indication: Other primary cardiomyopathies On: 80-Iae-857081:58 Request MICROALBUMIN: CREATININE RATIO ([id number]) AND ([id number])Indication: Other primary cardiomyopathies On: 76-Aca-132370:58 Request METABOLIC PANEL, COMPREHENSIVE ([id number])Indication: Other primary cardiomyopathies On: 26-Ehm-163519:58 Request LIPID PANEL ([id number])Indication: Other primary cardiomyopathies On: 55-Hzj-940376:58 Request CBC WITH MANUAL DIFF ([id number])Indication: Other primary cardiomyopathies On: 78-Rpn-619189:58 Request TSH ([id number])Indication: Amenorrhea On: 23-Okq-361153:57 Request PT (Prothrobim Time) ([id number])Indication: Deep vein thrombosis, unspecified laterality On: 02-Iku-872690:54 Request Comments: pt/inr - talked to dr zaman -- she will need lovenox inj prior to surgery when need to stop coumadin and restart after surgery PT/INR, Office ([id number])Indication: Deep vein thrombosis, unspecified laterality On: 82-Avv-693910:12 Request PT/INR, Office ([id number])Indication: Deep vein thrombosis, unspecified laterality On: 4-Qbk-121384:26 Request TSH ([id number])Indication: Other primary cardiomyopathies On: :06 Request METABOLIC PANEL, COMPREHENSIVE ([id number])Indication: Other primary cardiomyopathies On: :06 Request LIPID PANEL ([id number])Indication: Other primary cardiomyopathies On: : Request CBC WITH MANUAL DIFF ([id number])Indication: Other primary cardiomyopathies On: :06 Request PT/INR, Office ([id number])Indication: EMBOLISM AND THROMBOSIS OF OTHER SPECIFIED VEINS On: :21 Request Comments: inr 2.8 PT/INR, Office ([id number])Indication: Deep vein thrombosis, unspecified laterality On: 27-Sep-20089:19 Request TSH ([id number])Indication: Other primary cardiomyopathies On: :21 Request MICROALBUMIN URINE QUANT ([id number])Indication: Other primary cardiomyopathies On: :21 Request LIPID PANEL ([id number])Indication: Other primary cardiomyopathies On: :21 Request METABOLIC PANEL, COMPREHENSIVE ([id number])Indication: Other primary cardiomyopathies On: :21 Request CBC WITH MANUAL DIFF ([id number])Indication: Other primary cardiomyopathies On: :21 Request Planned Procedures Aerosol Treatment ([id number])By: On: 23-May-2018 Intent Mavis Baldwin Comments: Lungs clear after aerosol treatment. X-RAY CERVICAL SPINE, 1 VIEW On: 15-Feb-2018 Intent ([id number])By: Paty Catalan DO, DO, Kathleen CT SCAN OF ABDOMEN AND PELVIS On: 17-Dec-2017 Intent WITH CONTRAST ([id number])By: Paty Catalan DO, DO, Kathleen EMGBy: Paty Catalan DO On: 15-Dec-2017 Intent Paty LOCK Comments: bilateral lower extremity EMGBy: Paty Catalan DO On: 15-Dec-2017 Intent Paty LOCK Comments: bilateral upper extremity Nerve ConductionBy: Alayna DO, On: 15-Dec-2017 Intent Paty Morrow DO Comments: bilateral lower extremity Nerve ConductionBy: Alayna LOCK, On: 15-Dec-2017 Intent Paty Morrow DO Comments: bilateral upper extremity Ultrasound - Abdomen CompleteBy: On: 10-Dec-2017 Intent Juan Jose CLAROS Bess Toradol Injection, 30 mg On: 10-Dec-2017 Intent ([id number])By: Juan Jose CLAROS Zuleima Kaye ELECTROCARDIOGRAM, COMPLETE (ECG) On: 08-Dec-2017 Intent ([id number])By: Yara Chang Comments: nsr no acute chg / poor R wave progression adn nonspecific st flattening EMGBy: Paty Catalan DO On: 06-Sep-2017 Intent Paty LOCK Comments: upper and lower extremity Nerve ConductionBy: Alayna LOCK, On: 06-Sep-2017 Intent Paty Morrow DO Comments: upper and lower extremi X-RAY OF HAND, TWO VIEWS On: 06-Sep-2017 Intent ([id number])By: Paty Catalan DO Comments: Left Alayna DO, Paty X-RAY OF HAND, TWO VIEWS On: 06-Sep-2017 Intent ([id number])By: Paty Catalan DO Comments: Right Alayna DOPaty SCREENING DIGITAL TOMOSYNTHESIS On: 06-Sep-2017 Intent OF BREAST ([id number])By: Alayna DO, Paty Alayna DO, Paty X-RAY OF ANKLE, TWO VIEWS On: 27-Jul-2017 Intent ([id number])By: Alayna DO, Paty Alayna DO, Paty X-RAY OF ANKLE, TWO VIEWS On: 27-Jul-2017 Intent ([id number])By: Alayna DO, Paty Alayna DO, Paty X-RAY OF FOOT, TWO VIEWS On: 27-Jul-2017 Intent ([id number])By: Paty Catalan DO Comments: left Alayna DO, Paty X-RAY OF FOOT, TWO VIEWS On: 27-Jul-2017 Intent ([id number])By: Paty Catalan DO Comments: left Paty Catalan DO FLAT PLATE OF ABDOMEN ([id number])By: On: 12-Jul-2017 Intent Juan Jose CLAROS Zuleima Kaye Ultrasound - LiverBy: Alayna LOCK, On: 16-Jun-2017 Intent Paty Morrow DO Rocephin Injection, 2 Gram On: 02-Jun-2017 Intent ([id number])By: Paty Catalan DO, DO, Kathleen Aerosol Treatment ([id number])By: On: 02-Jun-2017 Intent Paty Catalan DO, DO, Comments: srill inspir and exp wheeze and junky but less cough nad moer a./e Paty Radiology - Chest- PA and LatBy: On: 02-Jun-2017 Intent Paty Catalan DO, DO, Kathleen CT SCAN OF CHEST WITH CONTRAST On: 02-Jun-2017 Intent ([id number])By: Paty Catalan DO Comments: fu on PE Paty Catalan DO Doppler Ultrasound OtherBy: On: 02-Jun-2017 Intent Paty Catalan DO, DO, Comments: b/l lower extremities-- fu on dvt Paty Aerosol Treatment ([id number])By: On: 25-May-2017 Intent Juan Jose CLAROS Zuleima Kaye Spirometry ([id number])By: Alayna LOCK, On: 19-Mar-2017 Intent Paty Morrow DO Comments: restriction noted Solu- Medrol Injection, 125mg On: 19-Mar-2017 Intent ([id number])By: Paty Catalan DO Comments: Lot:[id number]:06/2019Dose:125mgRoute:imSite:l armGiven By:NICHOLAS signed Paty Catalan DO Aerosol Treatment ([id number])By: On: 19-Mar-2017 Intent Paty Catalan DO, DO, Comments: more a/e no noise Paty Flu Vaccine (Quadrivalent) On: 15-Mar-2017 Intent [id number]: Paty Catalan DO Comments: Lot:[id number]:12/13/17Amt:0.5mlRoute:IMSite: L DltdGiven By: CHAITANYA Reis signed Paty Catalan DO COMPUTED TOMOGRAPHY ANGIOGRAPHY On: 09-Mar-2017 Intent OF CHEST FOR PULMONARY EMBOLISM ([id number])By: Mavis Baldwin VENOUS DOPPLER LOWER EXTREMITY On: 09-Mar-2017 Intent ([id number])By: Mavis Baldwin Comments: R/O DVT Aerosol Treatment ([id number])By: On: 30-Nov-2016 Intent Paty Catalan DO, DO, Comments: more a/e - less wheeze --- Paty Spirometry ([id number])By: Alayna LOCK, On: 30-Nov-2016 Intent Paty Morrow DO Comments: moderate restriction & obstruction Aerosol Treatment ([id number])By: On: 01-Jun-[address] - Chest (IV Contrast On: 08-Apr-2016 Intent Needed)By: Robel Sanon MD CT - Chest (IV Contrast On: 08-Apr-2016 Intent Needed)By: Robel Sanon MD Comments: Has Ct scan scehduled without contrast on 04/13/16. PLEASE DO CT SCAN WITH IV CONTRAST CHEST XRAY, PA & LATERAL On: 08-Apr-2016 Intent ([id number])By: Robel Sanon MD CT - Chest (Without Contrast)By: On: 02-Apr-2016 Intent Robel Sanon MD Comments: high resolution Flu Vaccine (Quadrivalent) On: 19-Mar-2016 Intent [id number]: Paty Catalan DO Comments: FLUlot: [id number]:11/11site:Lt deltoidroute:IMdose:.5mlDEYAHIR GIBBONS DO, Kathleen Echo CompleteBy: Robel Sanon MD On: 12-Mar-2016 Intent Comments: pls fax to Dr. palomo elena [facility] PFT - CompleteBy: Robel Sanon MD On: 12-Mar-2016 Intent Radiology - Foot - RightBy: Fab On: 12-Mar-2016 Intent Robel LEON Comments: pain in rt toe after fall. Aerosol Treatment ([id number])By: On: 11-Feb-2016 Intent Slarb SUPERVISOR PROPERTIES, Yanet Aerosol Treatment ([id number])By: On: 19-Aug-2015 Intent Slarb SUPERVISOR PROPERTIES, Yanet Aerosol Treatment ([id number])By: On: 16-Oct-2014 Intent Coty Scott MD Venous Doppler - RightBy: Ciesa On: 25-Sep-2014 Intent Zuleima CLAROS IMMUNIZ ADMNIN, 1 VAC, SNGL/COMBO On: 23-Apr-2014 Intent ([id number])By: Yanet Lee LPN Comments: [id number] syringeL Dltd, IMAS, LPNABN and VIS signed FLU VAC, SPLIT, >3 YEARS, On: 23-Apr-2014 Intent INTRAMUSC ([id number])By: Yanet Lee LPN Qxyizqmiv-Pbf-Gjqn ([id number])By: On: 11-Sep-2013 Intent Alayna LOCK, Paty Catalan DO, Paty Aerosol Treatment ([id number])By: On: 24-Aug-2013 Intent Coty Scott MD Eprescribed prescriptions On: 24-Aug-2013 Intent ([id number])By: Coty Scott MD IMMUNIZ ADMNIN, 1 VAC, SNGL/COMBO On: 15-Mar-2013 Intent ([id number])By: Apolonia Alvarez Comments: Lot:[id number]:01/14/14Dose:0.5mLRoute:imSite:r armGiven By:NICHOLAS signed PNEUM VAC ADLT/IMUMNOSPR, On: 15-Mar-2013 Intent SBC/INTRM ([id number])By: Apolonia Alvarez FLU VAC, SPLIT, >3 YEARS, On: 15-Mar-2013 Intent INTRAMUSC ([id number])By: Antonio, Comments: Lot:[id number]:Dose:0.5mLRoute:IMSite:L DltdGiven By:NICHOLAS signed Apolonia IMMUNIZ ADMNIN, 1 VAC, SNGL/COMBO On: 15-Mar-2013 Intent ([id number])By: Apolonia Alvarez Ultrasound - AortaBy: Alayna LOCK, On: 24-Oct-2012 Intent Paty Alayna DO, Paty MRI - Brain (IV Contrast On: 04-Oct-2012 Intent Needed)By: Alayna LOCK, Paty Alayna DO, Paty Anoscopy ([id number])By: Alayna , On: 28-Sep-2012 Intent Paty Morrow DO Comments: iritated mucosa filled wiht stool which limited view and blood in vault CT - Abdomen & Pelvis with iv On: 28-Sep-2012 Intent contrastBy: Alayna DO, Paty Catalan DO, Paty Ultrasound - PelvisBy: Alayna DO, On: 28-Sep-2012 Intent Paty Catalan DOPaty Nerve ConductionBy: Juan Jose CLAROS, On: 07-Jun-2012 Intent Zuleima Kaye Comments: both arms IMMUNIZ ADMNIN, 1 VAC, SNGL/COMBO On: 25-Apr-2012 Intent ([id number])By: Radha Whitaker LPN Comments: Lot #[id number]-L dltd, IMDose prefilled syringegiven by:REBEKAH CarlsonVIS signed FLU VAC, SPLIT, >3 YEARS, On: 25-Apr-2012 Intent INTRAMUSC ([id number])By: Radha Whitaker LPN Rocephin Injection, 2 Gram On: 18-Jan-2012 Intent ([id number])By: Coty Scott MD Comments: Lot #: [id number] date: 01/07Amount given: 2gRoute: IVSite given: right antecubitalGiven by: Raquel RN22g IV inserted to right antecubital without difficulty. No s/sx of infiltration. Tolerated well without difficulty. THER/PROPH/DIAG IV INF, INIT On: 18-Jan-2012 Intent ([id number])By: Coty Scott MD Ultrasound - GallbladderBy: On: 21-Sep-2011 Intent AlaynaPaty hagan DO, DO, Paty Venous Doppler - LeftBy: Tyler On: 04-Sep-2011 Intent Coty LEON Comments: leg, wet read FLU VAC, SPLIT, >3 YEARS, On: 01-Apr-2011 Intent INTRAMUSC ([id number])By: Master WELCH, Comments: Lot #[id number]/20/12Site-right deltoidgiven by: Jessica Thao LPN Dunia IMMUNIZ ADMNIN, 1 VAC, SNGL/COMBO On: 01-Apr-2011 Intent ([id number])By: Dunia Thao LPN Pulse Oximetry ([id number])By: Sandeep On: 05-Sep-2010 Intent Sammie WELCH Comments: sp02- 90% on room air Aerosol Treatment ([id number])By: On: 05-Sep-2010 Intent Sammie Hopkins LPN Pulse Oximetry ([id number])By: Juan Jose On: 01-Sep-2010 Intent HARLANZuleima Aerosol Treatment ([id number])By: On: 01-Sep-2010 Intent Juan Jose Zuleima CLAROS IMMUNIZ ADMNIN, 1 VAC, SNGL/COMBO On: 10-Apr-2010 Intent ([id number])By: Paty Catalan DO Comments: Lot #[id number] 4PExp-4/11Site-L arm IMDose 0.5mlgiven by:REBEKAH PEDRO DO, Kathleen FLU VAC, SPLIT, >3 YEARS, On: 10-Apr-2010 Intent INTRAMUSC ([id number])By: Paty Catalan DO, DO, Kathleen PHYSICAL THERAPY EVALUATION On: 24-Mar-2010 Intent ([id number])By: Juan Jose CLAROS Bess Radiology - Left KneeBy: Juan Jose On: 24-Mar-2010 Intent Zuleima CLAROS Aerosol Treatment ([id number])By: On: 17-Mar-2010 Intent Juan Jose CLAROS Zuleima Kaye Pulse Oximetry ([id number])By: Juan Jose On: 17-Mar-2010 Intent Zuleima CLAROS Aerosol Treatment ([id number])By: Cachorro On: 01-Nov-2009 Brigid Francois DO Pulse Oximetry ([id number])By: Cachorro On: 01-Nov-2009 Brigid Francois DO Comments: 87- after treatment Solu -Medrol Injection, 125 mg On: 01-Nov-2009 Intent ([id number])By: Laurie Reyna Comments: Lot:[id number]:125mgRoute:IMSite:Left Gluteus Given by: YAHIR Salgado Pulse Oximetry (22365)By: On: 01-Nov-2009 Intent Olivia Batista Comments: 89% Radiology - Chest- PA and LatBy: On: 31-Oct-2009 Intent Paty Catalan DO DO, Paty Pulse Oximetry ([id number])By: Alayna On: 31-Oct-2009 Intent Paty LOCK DOPaty Comments: 90% Aerosol Treatment ([id number])By: On: 31-Oct-2009 Intent Paty Catalan DO, DO, Kathleen Solu- Medrol Injection, 125mg On: 31-Oct-2009 Intent ([id number])By: Paty Catalan DO Comments: Lot #[id number]-0/1/2012Site-left hipDose- 125 mggiven by:Paty Pelayo DO CT - Chest with PE ProtocolBy: On: 29-Aug-2009 Intent Paty Caatlan DO DO, Paty Echo CompleteBy: Alayna LOCK, On: 29-Aug-2009 Intent Paty Catalan DO Paty EKG ([id number])By: Alayna LOCK, On: 29-Aug-2009 Intent Paty Catalan DO, Paty Bio Z ([id number])By: Alayna LOCK, On: 29-Aug-2009 Intent Paty Morrow DO Spirometry ([id number])By: Alayna LOCK, On: 29-Aug-2009 Intent Paty Catalan DOPaty Pulse Oximetry ([id number])By: Alayna On: 29-Aug-2009 Intent Paty LOCK DOPaty Inhaler Demo ([id number])By: Cachorro LOCK, On: 06-Aug-2009 Intent Brigid Molina Radiology - Chest- PA and LatBy: On: 06-Aug-2009 Intent Cachorro LOCK Brigid A Spirometry ([id number])By: Cachorro LOCK, On: 06-Aug-2009 Intent Brigid A Comments: done km- good effort and curve mildd restriction Aerosol Treatment ([id number])By: Cachorro On: 06-Aug-2009 Intent DO Brigid A Comments: done km Pulse Oximetry ([id number])By: Cachorro On: 06-Aug-2009 Alessandro LOCK Brigid A Comments: post aerosol 95% Pulse Oximetry ([id number])By: On: 06-Aug-2009 Intent Olivia Batista Comments: 94% Bio Z ([id number])By: Alayna LOCK, On: 15-May-2009 Intent Paty Morrow DO Comments: see scanned doc -- no changes n meds stable Doppler Ultrasound OtherBy: On: 27-Sep-2008 Intent Paty Catalan DO, DO, Comments: do in 3 months Paty Bio Z ([id number])By: Alayna LOCK, On: 13-Sep-2008 Intent Paty Morrow DO Comments: normal EKG ([id number])By: Alayna LOCK, On: 13-Sep-2008 Intent Paty Morrow DO Comments: nsr no acute changes IMMUNIZ ADMNIN, 1 VAC, SNGL/COMBO On: 09-May-2008 Intent ([id number])By: Paty Catalan DO, DO, Kathleen FLU VAC, SPLIT, >3 YEARS, On: 09-May-2008 Intent INTRAMUSC ([id number])By: Alayna LOCK, Comments: injection given in left deltoid. pt tolerated. see scanned paper Paty Morrow DO Pulse Oximetry ([id number])By: Cheyanne On: 28-Feb-2008 Intent Shelby HUDSON IMMUNIZ ADMNIN, 1 VAC, SNGL/COMBO On: 13-Apr-2007 Intent ([id number])By: Paty Catalan DO, DO, Kathleen FLU VAC, SPLIT, >3 YEARS, On: 13-Apr-2007 Intent INTRAMUSC ([id number])By: Alayna LOCK, Comments: lot # [id number] exp- 10/03 LDLT patient tolerated well Paty Morrow DO EKG ([id number])By: Alayna LOCK, On: 03-Dec-2006 Intent Paty Morrow DO Comments: nsr no acute ischemic changes Bio Z ([id number])By: Alayna LOCK, On: 03-Dec-2006 Intent Paty Morrow [...] re. The menstrual problem is characterized as medical aide awakenings (does have sleep apnea). The symptoms have been associated with caffiene use daily, caffeine use daily and tried OTC meds.Encounter Diagnosis: Sleep apnea, Sleep disturbance [facility] Phone Encounter On: 24-Dec-2014 8:36 Encounter Diagnosis: Unspecified Diagnosis End: 24-Dec-2014 8:38 [facility] Office Visit On: 23-Nov-2014 10:54 Encounter Reason: Follow up hospital - Reason for ER visit: note: (At [facility] not sure of the dates).Encounter Diagnosis: [...]
--- OUTSIDE RECORDS SUMMARY | 2018-09-19 12:46 | XMS RPT_ITS | Continuity of Care Document ---
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 [address] [place] [address] Chest PA and Lateral MR#: [id number] Acct: [id number] Name: GIASIMI Amanda Rep #: [id number] : 1970 F 47 From: Jaxon Adame MD PCP: Paty Catalan DO Status: REG CLI Study: Chest PA and Lateral Date of Exam: 06/02/17 Exam# [id number] Ordering Dr: Paty Catalan DO STUDY: X [...] Jaxon Adame MD at 16:03 EST Tel [phone], Service support , CC: Paty Catalan DO Client Service Administrator: Signed 09-Mar-2017 Emergency Department Summary Result: Comments: See Note; NOTES: [facility] Medical Records Department [address] [place] [address] Emergency Department Summary 03/09/172027 MR#: [id number] Acct: [id number] Name: SIMI NIELSEN Rep #: [id number] : 1970 47 From: Stone Felix MD [...] problems, contact your Primary Care Provider. Call [employer] [facility] ([phone]) or report to the closest Emergency Room. Koby l 911 if necessary. 03/09/172029 <Electronically signed by Stone Felix MD> Date Stone Felix MD Cosigner Signature (If Indica osmin): Date CC: Paty Catalan DO 09-Mar-2017 Venous Duplex Lower Extremity Result: Comments: See Note; NOTES: [facility] Cardiovascular Services [address] [place] [address] Venous Duplex US - Osmin Extrem 03/09/17 1458 MR#: [id number] Acct: [id number] Name: SIMI NIELSEN Rep #: [id number] : 1970 47 From: Mamadou Bonds MD Attending Dr: Mavis Baldwin, GERMINATION WORKER-C Status: REG CLI Ordering Dr: Mavis Baldwin GERMINATION WORKER-C Date: 03/09/17 Location: CT Sex: F C [...] is compressible. noncompressible. Procedure Exam performed in [facility]. The exam was diagnostic. A preliminary [...] Date Dictated: 03/09/17 1458 Date Transcribed: 03/09/171536 Client Service Administrator: Signed 09-Mar-2017 CTA Chest W/WO Contrast Result: Comments: See Note; NOTES: [facility] Imaging Services [address] [place] [address] CTA Chest W/WO Contrast MR#: [id number] Acct: [id number] Name: SIMI NIELSEN Rep #: [id number] : 1970 F 47 From: Olivia Ramirez MD PCP: Paty Catalan DO Status: REG CLI Study: CTA Chest W/WO Contrast Date of Exam: 03/09/17 Exam# [id number] Ordering Dr: Baldwin, Mavis GERMINATION WORKER-C STUDY : CTA CHEST REASON FOR EXAM: [...] Olivia Ramirez MD at 17:41 EDT Tel [phone], Service support , Fax N.B. : Dr. Garcia , Covering Physician, confirmed on 03/09/2017 18:33:20 (ET) that the referring physician received the results and did not require a verbal consultation. CC: EDIS Baldwin; Paty Catalan DO Client Service Administrator: Signed 18-Dec-2016 Sinus/Facial Bone Result: Comments: See Note; NOTES: [facility] Imaging Services [address] [place] [address] Syddana 4d Sinus/Facial Bone MR#: [id number] Acct: [id number] Name: SIMI NIELSEN Rep #: [id number] : 1970 F 46 From: Pedro Luis Palafox PCP: Paty Catalan DO Status: REG CLI Study: Sinus/Facial Bone Date of Exam: 12/18/16 Exam# [id number] Ordering Dr: Navid Sherman MD [facility] DY: CT MAXILLOFACIAL SINUSES REASON FOR EXAM: [...] CC: Harry Sherman MD; Paty Catalan DO Client Service Administrator: Signed 29-Oct-2016 Echo, Complete w/ Contrast Result: Comments: See Note; NOTES: [facility] Cardiovascular Services [address] [place] [address] Echo Complete W/ Contrast 10/29/16 1402 MR#: [id number] Acct: [id number] Name: SIMI CABAN ACE Rep #: [id number] : 1970 46 From: Marshall Ford MD Attending Dr: Norman Burton MD Status: REG CLI Ordering Dr: Norman Burton MD Date: 10/29/16 Location: [facility] Sex: F C Admitted: Reason For Study: [...] Paty Catalan M.D. Performed By: Clarisa Joshi [facility] 10/29/161948 Date __ Marshall Ford MD CC: Paty Catalan DO; Norman Burton MD Date Dictated: 10/29/16 1402 Date Transcribed: 10/29/161948 Client Service Administrator: Signed 22-Jul-2016 Chest PA and Lateral Result: Comments: See Note; NOTES: [facility] Imaging Services [address] [place] [address] Verdana 4d Chest PA and Lateral MR#: [id number] Acct: [id number] Name: SIMI NIELSEN Rep #: [id number] : 1970 F 46 From: Linda Méndez MD PCP: Paty Catalna DO Status: REG ER Study: Chest PA and Lateral Date of Exam: 07/22/16 Exam# [id number] Ordering Dr: Humberto Glavez MD STUDY: X-RAY CHEST REASON FOR EXAM: [...] at 20:24 EST Tel , Service support [phone], CC: Paty Catalan DO; Humberto Galvez MD Client Service Administrator: Signed 13-Apr-2016 CTA Chest W/WO Contrast Result: Comments: See Note; NOTES: [facility] Imaging Services [address] [place] [address] Verdana 4d CTA Chest W/WO Contrast MR#: [id number] Acct: [id number] Name: SIMI NIELSEN Rep #: [id number] : 1970 F 46 From: Santos Burnett PCP: Paty Catalan DO Status: REG CLI Study: CTA Chest W/WO Contrast Date of Exam: 04/13/16 Exam# [id number] Ordering Dr: Robel Sanon DY: CTA CHEST [...] MD at 5:40 EDT , Service support [phone], CC: Paty Sanon Client Service Administrator: Signed 08-Apr-2016 Chest PA and Lateral Result: Comments: See Note; NOTES: [facility] Imaging Services [address] [place] [address] Verdana 4d Chest PA and Lateral MR#: [id number] Acct: [id number] Name: SIMI NIELSEN Rep #: [id number] : 1970 F 46 From: Flex Martinez MD PCP: Paty Catalan DO Status: REG CLI Study: Chest PA and Lateral Date of Exam: 04/08/16 Exam# [id number] Ordering Dr: Robel Sanon STUDY: X-RAY CHEST [...] FACR at 15:01 EDT , Service support [phone], CC: Paty Sanon Client Service Administrator: Signed 01-Apr-2016 Pulmonary Function Report Comp Result: Comments: See Note; NOTES: [facility] Pulmonary Services/Neurology [address] [place] [address] Pulmonary Function Test (Comp) MR#: [id number] Acct: [id number] Name: SIMI NIELSEN Rep #: [id number] : 1970 46 From: Louie Chaudhary MD Referring Dr: Robel Sanon Status: REG CLI Ordering Dr: Robel Sanon Date: 03/31/16 Location: [facility] Sex: F C DATE OF SERVICE: [...] C: Robel Sanon M.D. T: NTS JOB: [id number] 04/01/16 0726 <Electronically signed by Louie Chaudhary MD> Date Louie Chaudhary MD CC: Louie Chaudhary MD; Paty Sanon Date Dictated: 03/31/161617 Date Transcribed: 03/31/161617 Client Service Administrator: Signed 30-Mar-2016 Emergency Department Summary Result: Comments: See Note; NOTES: [facility] Medical Records Department [address] [place] [address] Emergency Department Summary MR#: [id number] Acct: [id number] Name: HOWARD NIELSEN Rep #: [id number] : 1970 46 From: Gabriel Menard DO PCP: Paty Catalan DO Status: [facility] ER DATE OF SERVICE: 03/21/2016 CHIEF [...] The patient was given a script for [place] for severe pain. She did not want crutches. Instructed to follow up with Dr. Catalan within next 5-7 days. DISPOSITIO N: Discharged home in stable condition. Gabriel Menard DO T: NTS JOB: [id number] 03/30/16 1652 <Electronically signed by Gabriel Menard DO> Date ____ Gabriel Menard DO Cosigner Signature (If Indicated): Date CC: Paty Catalan DO Date Dictated: 03/21/16 1037 Date Transcribed: 03/21/16 1037 Client Service Administrator: Signed 21-Mar-2016 Venous Duplex Lower Extremity Result: Comments: See Note; NOTES: [facility] Cardiovascular Services [address] [place] [address] Venous Duplex US, Unilateral 03/21/16 1002 MR#: [id number] Acct: [id number] Name: SIMI NIELSEN Rep #: [id number] : 1970 46 From: Mamadou Bonds MD [...] Dictated: 03/21/16 1002 Date Transcribed: 03/21/16 173 Client Service Administrator: Signed 21-Mar-2016 Discharge Instruction Result: Comments: See Note; NOTES: [facility] Medical Records Department [address] [place] [address] Discharge Instruction 03/21/16 1034 MR#: [id number] Acct: [id number] Name: SIMI SUTTON Rep #: [id number] : 1970 46 From: Gabriel Menard DO PCP: Paty Catalan DO Status: REG ER ED Disposition - Plan for ED Patient: Chief Complaint: Lower Extremity Injury Instructions: ED Muscle Strain, Extremity Prescriptions: Hydrocodone Bitart/Apap 5-325 [[place] 5/325] 1 - 2 tablet PO Q4H PRN PRN #12 tablet PRN Reason: Pain Referrals: Paty Catalan DO [Primary Care Provider] - 5 -7 Days What to do if you have Problems For any increased pain, shortness of breath, bleeding, nausea or vomiting, chest pain, or any unexpected problems, contact your doctor. Call [facility] ([phone]) or report to the closest Emergency Room. Call 911 if necessary. 03/21/16 1035 <Electronically signed by Gabriel Menard DO> Date ___ Gabriel Menard DO Cosigner Signature (If Indicated): Date CC: Paty Catalan DO 18-Mar-2016 Echo, Complete w/ Contrast Result: Comments: See Note; NOTES: [facility] Cardiovascular Services [address] [place] [address] Echo Complete W/ Contrast 03/18/16 0853 MR#: [id number] Acct: [id number] Name: SIMI GUERRIER Rep #: [id number] : 1970 46 From: Frederick Butt MD Attending Dr: Robel Sanon Status: REG CLI Ordering Dr: Robel Sanon Date: 03/18/16 Location: [facility] Sex: F C Admitted: Reason Fo r [...] Dictated: 03/18/16 0853 Date Transcribed: 03/18/16 1105 Client Service Administrator: Signed 12-Mar-2016 Foot min 3 Views Result: Comments: See Note; NOTES: [facility] Imaging Services [address] [place] [address] Verdana 4d Foot min 3 Views MR#: [id number] Acct: [id number] Name: SIMI NIELSEN Rep #: [id number] : 1970 F 46 From: Jaxon Adame MD PCP: Paty Catalan DO Status: REG CLI Study: Foot min 3 Views Date of Exam: 03/12/16 Exam# [id number] Ordering Dr: Robel Sanon STUDY: X-R AY [...] Jaxon Adame MD at 13:59 EDT Tel [phone], Service support [phone], CC: Paty Catalan DO; Robel Fab Client Service Administrator: Signed 27-Aug-2015 12 Lead Electrocardiogram Result: Comments: See Note; NOTES: [facility] Cardiovascular Services [address] [place] [address] 12 Lead EKG 08/25/152241 MR#: [id number] Acct: [id number] Name: SIMI CABAN ACE Rep #: [id number] : 1970 45 From: Mark Underwood MD [...] Int : 450 ms Normal sinus [facility] Normal ECG Confirmed by CARLOS LEON, MARK ([id number]), news video editor NAYANA SAWANT (56) on 08/27/2015 12:58:37 PM Referred By: NS Confirmed By:MARK UNDERWOOD MD 08/27/15 1258 Date Mark Underwood MD CC: Paty Catalan DO Date Dictated: 08/25/152241 Date Transcribed: 08/25/152241 Client Service Administrator: Signed 25-Aug-2015 Chest PA and Lateral Result: Comments: See Note; NOTES: [facility] Imaging Services [address] [place] [address] Verdana 4d Chest PA and Lateral MR#: [id number] Acct: [id number] Name: SIMI SUTTON Rep #: [id number] : 1970 F 45 From: Alycia Lara DO PCP: Paty Catalan DO Status: DEP ER Study: Chest PA and Lateral Date of Exam: 08/25/15 Exam# [id number] Ordering Dr: Richard Abreu MD STUDY: X-RAY [...] at 23:27 EST Tel , Service support [phone], RAD/Chest PA and Lateral IMPRESSION: Normal x-ray examination of the chest. Electronically Signed: Alycia Lara DO at 23:27 EST Tel , Service support [phone], CC: Paty Catalan DO; Richard Abreu MD Client Service Administrator: Signed 31-Dec-2014 12 Lead Electrocardiogram Result: Comments: See Note; NOTES: [facility] Cardiovascular Services [address] [place] [address] 12 Lead EKG 12/28/14 0049 MR#: [id number] Acct: [id number] Name: NIELSENYUNIOR SA Rep #: [id number] : 1970 44 From: Mark Underwood MD [...] ECG Confirmed by MARK UNDERWOOD MD ([id number]), news video editor NAYANA SAWANT (56) on 12/31/2014 1:38:48 PM Referred By: IAN Confirmed By:MARK UNDERWOOD MD 12/31/14 1338 Da te Mark Underwood MD CC: Paty Catalan DO Date Dictated: 12/28/1448 Date Transcribed: 12/28/1448 Client Service Administrator: Signed 28-Dec-2014 Emergency Department Summary Result: Comments: See Note; NOTES: [facility] Medical Records Department [address] [place] [address] Emergency Department Summary MR#: [id number] Acct: [id number] Name: SIMI STRAUSS Rep #: [id number] : 1970 44 From: Humberto Jaimes MD PCP: Paty Catalan DO Status: REG ER DATE OF SERVICE: 12/28/2014 CHIEF COMPLAINT: Abnormal behavior, hallucinations. H ISTORY OF PRESENT ILLNESS: This is a 44-year-old female with history of bipolar disorder, schizophrenia, presents with abnormal behavior, hallucinations. Apparently, the mother called police [employer] because the patient was babbling. She was [...] Crisis. Humberto Jaimes MD T: NTS JOB: [id number] 12/28/14 0121 <Electronically signed by Humberto Jaimes MD> Date Humberto becker MD CC: Paty Catalan DO Date Dictated: 12/28/1454 Date Transcribed: 12/28/1454 Client Service Administrator: Signed 28-Dec-2014 Brain/Head without Contrast Result: Comments: See Note; NOTES: [facility] Imaging Services [address] [place] [address] CAT Scan Report MR#: [id number] Acct: [id number] Name: SIMI NIELSEN Rep #: [id number] : 1970 F 44 From: Rachid Donald MD PCP: Paty Catalan DO Status: [facility] ER Study: Brain/Head without Contrast Date of Exam: 12/28/14 Exam# [id number] Ordering Dr: Humberto Jaimes MD STUDY: CT [...] CC: Paty Catalan DO; Humberto Jaimes MD Client Service Administrator: Signed 13-Nov-2014 Emergency Department Summary Result: Comments: See Note; NOTES: [facility] Medical Records Department [address] [place] [address] Emergency Department Summary MR#: [id number] Acct: [id number] Name: SIMI STRAUSS Rep #: [id number] : 1970 44 From: Humberto Galvez MD PCP: Paty Catalan DO Status: [facility] ER DATE OF SERVICE: 11/10/2014 METHOD OF ARRIVAL: By EMS. CHIEF COMPLAINT: Hallucinati ons. PRIMARY CARE: Paty Catalan D.O. PSYCHIATRIST: Taina Painter M.D. MARTINEZ HISTORY: This is a 44-year-old female with history of schizophrenia, bipolar, prior DVT, CHF, comes in by [employer] w ith hallucinations. Family called [employer] for this reason. This has apparently been going on for several days, getting worse. The patient denies being depressed or suicidal, but she recently just got ou t [facility] last week, for being suicidal. They did [...] CENTER Paty Owusu MD T: NTS JOB: [id number] 11/13/14 0906 <Electronically signed by Humberto Galvez MD> Date Humberto Galvez MD CC: Paty Catalan DO; Taina Painter MD Date Dictated: 11/11/1431 Date Transcribed: 11/11/1431 Client Service Administrator: Signed 12-Nov-2014 Emergency Department Summary Result: Comments: See Note; NOTES: [facility] Medical Records Department [address] [place] [address] Emergency Department Summary MR#: [id number] Acct: [id number] Name: SIMI STRAUSS Rep #: [id number] : 1970 44 From: Eleazar Shipley MD PCP: Paty Catalan DO Status: [facility] ER DATE OF SERVICE: 10/29/2014 CHIEF COMPLAINT: Suicidal and depressed. HISTORY OF P RESENT ILLNESS: A 44-year-old female who suffers from depression, was admitted to [facility] in June for depression and suicidal [...] structure several weeks ago, was admitted to [facility] at that time for injury she sustained. [...] CENTER Paty Catalan DO T: NTS JOB: [id number] 11/12/14 2342 <Electronically signed by Eleazar Shipley MD> Date Eleazar Shipley MD CC: Paty Catalan DO Date Dictated: 10/29/14100 Date Transcribed: 10/29/14100 Client Service Administrator: Signed 11-Nov-2014 Emergency Department Summary Result: Comments: See Note; NOTES: [facility] Medical Records Department [address] [place] [address] Emergency Department Summary MR#: [id number] Acct: [id number] Name: SIMI STRAUSS Rep #: [id number] : 1970 44 From: Humberto Drake MD [...] hosis. Humberto Drake M.D. T: NTS JOB: [id number] 11/11/14 0430 <Electronically signed by Humberto Drake MD> Date Humberto armando MD CC: Paty Catalan DO Date Dictated: 11/11/14150 Date Transcribed: 11/11/14150 Client Service Administrator: Signed 10-Nov-2014 Brain/Head without Contrast Result: Comments: See Note; NOTES: [facility] Imaging Services [address] [place] [address] CAT Scan Report MR#: [id number] Acct: [id number] Name: SIMI NIELSEN Rep #: [id number] : 1970 F 44 From: Dayne Ocasio MD PCP: Paty Catalan DO Status: REG ER Study: Brain/Head without Contrast Date of Exam: 11/10/14 Exam# [id number] Ordering Dr: Humberto Galvez MD [facility] DY: CT BRAIN WITHOUT CONTRAST REASON FOR [...] at 23:45 E DT , Service support [phone], CC: Paty Catalan DO; Humberto Galvez MD Client Service Administrator: Signed 29-Oct-2014 Emergency Department Summary Result: Comments: See Note; NOTES: [facility] Medical Records Department [address] [place] [address] Emergency Department Summary MR#: [id number] Acct: [id number] Name: SIMI SUTTON Rep #: [id number] : 1970 44 From: Eleazar Shipley MD PCP: Paty Catalan DO Status: REG RCR DATE OF SERVICE: 10/29/2014 CHIEF COMPLAINT: Suicidal and depressed. HISTORY OF P RESENT ILLNESS: A 44-year-old female who suffers from depression, was admitted to [facility] in June for depression and suicidal [...] structure several weeks ago, was admitted to [facility] at that time for injury she sustained. [...] CENTER Paty Catalan DO T: NTS JOB: [id number] 10/29/14 0349 <Electronically signed by Eleazar Shipley MD> Date Eleazar Shipley MD CC: Paty Catalan DO Date Dictated: 10/29/14100 Date Transcribed: 10/29/14100 Client Service Administrator: Signed 23-Oct-2014 Emergency Department Summary Result: Comments: See Note; NOTES: [facility] Medical Records Department [address] [place] [address] Emergency Department Summary MR#: [id number] Acct: [id number] Name: SIMI SUTTON Rep #: [id number] : 1970 44 From: Osiris Rueda PCP: Paty Catalan DO Status: [facility] ER DATE OF SERVICE: 10/10/2014 HISTORY [...] center. I spoke with Dr. Sawant at [facility] at the patient's request for transfer there. He did request that I discuss i f the patient may go home with the ER. This was discussed with the patient and her family at the bedside. DISPOSITION: Transfer. DIAGNOSES: 1. Head injury. 2. L2, L3 transverse process fractures . MD Anahi Patel C: Paty Catalan DO T: NTS JOB: [id number] 10/23/14 2337 <Electronically signed by Osiris Rueda > Date Osiris Rueda CC: Paty Cataaln DO Date Dictated: 10/10/146 Date Transcribed: 10/10/14425 Client Service Administrator: Signed 10-Oct-2014 Ribs Uni Min 3V w/PA Chest Result: Comments: See Note; NOTES: [facility] Imaging Services [address] [place] [address] Radiology Report MR#: [id number] Acct: [id number] Name: SIMI NIELSEN Rep #: [id number] : 1970 F 44 From: Pedro Luis Palafox PCP: Paty Caatlan DO Status: DEP ER Study: Ribs Uni Min 3V w/PA Chest Date of Exam: 10/10/14 Exam# [id number] Ordering Dr: Osiris Rueda STUDY: X-RAY - [...] MD at 7:43 EDT , Service support [phone], RAD/Ribs Uni Min 3V w/PA Chest IMPRESSION: RIBS: Normal x-ray examination of the ribs. CHEST: Normal x-ray examination of the chest. Electronical ly Signed: Pedro Luis Palafox MD at 7:43 EDT , Service support [phone], CC: Osiris Catalan DO Client Service Administrator: Signed 10-Oct-2014 Abdomen/Pelvis W IV Cont ONLY Result: Comments: See Note; NOTES: [facility] Imaging Services [address] [place] [address] CAT Scan Report MR#: [id number] Acct: [id number] Name: SIMI NIELSEN Rep #: [id number] : 1970 F 44 From: Pedro Luis Palafox PCP: Paty Catalan DO Status: REG ER Study: Abdomen/Pelvis W IV Cont ONLY Date of Exam: 10/10/14 Exam# [id number] Ordering Dr: Osiris Rueda Y: CT ABDOMEN [...] MD at 3:30 EDT , Service support [phone], CC: Osiris Rueda; Paty Catalan DO Client Service Administrator: Signed 10-Oct-2014 Brain/Head without Contrast Result: Comments: See Note; NOTES: [facility] Imaging Services [address] [place] [address] CAT Scan Report MR#: [id number] Acct: [id number] Name: SIMI NIELSEN Rep #: [id number] : 1970 F 44 From: Pedro Luis Palafox PCP: Paty Catalan DO Status: REG ER Study: Brain/Head without Contrast Date of Exam: 10/10/14 Exam# [id number] Ordering Dr: Osiris Rueda STUDY: CT BRAIN [...] at 3:17 EDT Tel , Service support [phone], CC: Osiris Rueda; Paty Catalan DO Client Service Administrator: Signed 07-Oct-2014 12 Lead Electrocardiogram Result: Comments: See Note; NOTES: [facility] Cardiovascular Services [address] [place] [address] 12 Lead EKG 10/02/14 1925 MR#: [id number] Acct: [id number] Name: HOWARD NIELSEN Rep #: [id number] : 1970 44 From: Frederick Butt MD [...] Normal ECG Confirmed by FREDERICK BUTT ([id number]), news video editor NAYANA SAWANT (56) on 10/04/2014 10: 16:38 AM Referred By: CLEMENTE Confirmed By:FREDERICK BUTT 10/04/14 1016 Date Frederick Butt MD CC: Paty Catalan DO Date Dictated: 10/02/141924 Date Transcribed: 10/02/141924 Client Service Administrator: Signed 05-Oct-2014 Emergency Department Summary Result: Comments: See Note; NOTES: [facility] Medical Records Department [address] [place] [address] Emergency Department Summary MR#: [id number] Acct: [id number] Name: SIMI SUTTON Rep #: [id number] : 1970 44 From: Gabriel Menard DO [...] condition. Gabriel Menard DO T: NTS JOB: [id number] 10/05/14 1039 <Electronically signed by Gabriel Menard DO> Date __ Gabriel Menard DO CC: Paty Catalan DO Date Dictated: 10/02/142118 Date Transcribed: 10/02/142118 Client Service Administrator: Signed 02-Oct-2014 Discharge Instruction Result: Comments: See Note; NOTES: [facility] Medical Records Department [address] [place] [address] Discharge Instruction 10/02/142114 MR#: [id number] Acct: [id number] Name: SIMI NIELSEN Rep #: [id number] : 1970 44 From: Gabriel Menard DO [...] W/WO Contrast Result: Comments: See Note; NOTES: [facility] Imaging Services [address] [place] [address] CAT Scan Report MR#: [id number] Acct: [id number] Name: SIMI NIELSEN Rep #: [id number] : 1970 F 44 From: Stuart Wagner DO PCP: Paty Catalan DO Status: REG ER Study: CTA Chest W/WO Contrast Date of Exam: 10/02/14 Exam# [id number] Ordering Dr: Gabriel Menard DO STUDY: CTA [...] Stuart Wagner DO at 20:50 EDT Tel [phone], Service support [phone], CC: Paty Catalan DO; Gabriel Menard DO Client Service Administrator: Signed 23-Mar-2014 EKG (56508) Comments: nsr no acute chg Result: [MEASUREMENTS ANALYSIS] Date of Test: 03/23/2014 14:44:22; Heart Rate: 70; WI Interval: 146; QRS: 96; QT Interval: 414; Corrected QT Interval (QTc): 431; P Wave Arnold: 41; QRS Wave Arnold: -1; T Wave Arnold: 22; Blood Pressure: 128/64 [ECG DIAGNOSTIC STATEMENTS] Date of Test: 03/23/2014 14:44:22; Summary: Sinus Rhythm WITHIN NORMAL LIMITS 06-Nov-2013 Emergency Department Summary Result: Comments: See Note; NOTES: [facility] Medical Records Department [address] [place] [address] Emergency Department Summary MR#: [id number] Acct: [id number] Name: SIMI SUTTON Rep #: [id number] : 1970 43 From: Marshall Ricardo MD PCP: Paty Catalan DO Status: [facility] ER DATE OF SERVICE: 10/22/2013 CHIEF [...] update. Marshall Ricardo MD T: NTS JOB: [id number] 11/06/13 0817 <Electronically signed by Marshall Ricardo MD> Date Marshall Ricardo MD CC: Paty Catalan DO Date Dictated: 10/22/13 1134 Date Transcribed: 10/22/131133 Client Service Administrator: Signed 22-Oct-2013 Discharge Instruction Result: Comments: See Note; NOTES: [facility] Medical Records Department [address] [place] [address] Discharge Instruction 10/22/13 1136 MR#: [id number] Acct: [id number] Name: SIMI NIELSEN Rep #: [id number] : 1970 43 From: Marshall Ricardo MD [...] 10/22/13 1137 &#6 0;Electronically signed by Marshall Riacrdo MD> Date Marshall Ricardo MD CC: Paty Catalan DO 11-Sep-2013 Ribs Unil 2V No CXR Result: Comments: See Note; NOTES: [facility] Imaging Services [address] [place] [address] Radiology Report MR#: [id number] Acct: [id number] Name: SIMI NIELSEN Rep #: [id number] : 1970 F 43 From: Jaxon Adame MD PCP: Paty Catalan DO Status: REG CLI Study: Ribs Unil 2V No CXR Date of Exam: 09/11/13 Exam# [id number] Ordering Dr: Paty Catalan DO S TUDY: [...] M.D. at 14:42 EDT , Service support [phone], CC: Paty Catalan DO Client Service Administrator: Signed Immunization Name Dates Details Influenza (3 years and up) on: 13-Apr-2007 Comments: lot # [id number] exp- 10/03 LDLT patient tolerated well Influenza [...] smoker Vital Signs Date Test Result Details 37-Wxh-53659:37 Temperature 97.5 f Pulse 83 /min Comments: [...] kg/m2 Body Surface Area Calculated 2.08 m2 12-Dkt-257181:04 Temperature 97.4 f Comments: Method: Temporal Pulse [...] kg/m2 Body Surface Area Calculated 2.12 m2 11-Fgf-927098:24 Temperature 97.8 f Pulse 84 /min Comments: [...] kg/m2 Body Surface Area Calculated 2.12 m2 38-Tdm-906765:23 Pulse 79 /min Comments: Pattern: Regular Respiration [...] kg/m2 Body Surface Area Calculated 2.2 m2 24-Wno-823605:28 Temperature 97.6 f Pulse 88 /min Comments: [...] kg/m2 Body Surface Area Calculated 2.2 m2 13-Fjm-527867:18 Pulse 75 /min Comments: Pattern: Regular Respiration [...] kg/m2 Body Surface Area Calculated 2.21 m2 23-Ihq-781626:00 Pulse 98 /min Comments: Pattern: Regular Respiration [...] Height 0 in Head Circumference 0.00 cm 96-Pji-542135:48 Pulse 64 /min Comments: Pattern: Regular Respiration [...] Order Date: 03/15/18How was Urine Obtained? [facility] [address]jfazplan[address] [place], [address] MUCUS, URINE 0 SEEN {/hpf} [...] Urine Drug Screen (VISTA) Comments: Order Date: 03/15/18[facility] [address] [place], [address] THC NEGATIVE (Normal) PCP NEGATIVE [...] TESTING MUST BE ORDERED SEPARATELY. USE TESTMNEMONIC: [facility] 07-Ycp-118771:51 Venous Blood Gas Comments: [facility] LaboratoryPoint of Puru[address] [place] [address] ISTAT 26 [...] LIZ (Normal) :39 Alcohol, Blood (Medical)-Serum Comments: [facility] [address] [place], [address] SERUM ETOH < 3.0 mg/dL (Normal) Comments: The serum:whole blood ethanol ratio is approximately 1.14and varies slightly with hematocrit.Medical Alcohol reference interval and critical value innon-tolerant individuals; 50 - 100 Impairment 100 Intoxication 100 - 250 Severe Poisoning 250 - 400 Deep/possible fatal coma 89-Czl-726873:39 CBC W/Diff, Automated Comments: [facility] [address] [place], [address] Absolute Lymph 3.19 {X10_3/ul} (Normal) [...] 4.2-5.4 WBC 8.4 K/mm3 (Normal) Range: 4.4-11.0 50-Qzb-572173:39 Comprehensive Metabolic Profil Comments: [facility] [address] [place], [place], [id number] GAP 12 (Normal) Range: 5-15 CO2 24.0 [...] Comments: Please note revised GLUCOSE reference range agbcgvnfu37/02/2018. 12-Awk-574883:39 Lactic Acid Comments: Yes/No query for Sepsis Lactate Rule [facility] [address] [place], [address] LACTIC ACID 2.4 mmol/L (Abnormal) Range: 0.4-2.0 Comments: Critical Result(s) Called at: 20:33:03 03/15/2018 by: Jose VIVAR 60-Hvr-439410:39 Partial Thromboplast Time Comments: [facility] [address] [place], [address] PTT 33.9 s (Normal) Range: 24.1-36.2 46-Aed-853462:39 Prothrombin Time w/INR Comments: [facility] [address] [place], [place], [id number] INR 1.1 (Normal) PROTIME 13.9 s (Normal) Range: 11.7-14.9 :39 Troponin-I Comments: [facility] [address]ys[address] [place], [place], [id number] TROPONIN-I < 0.015 ng/mL (Normal) Comments: TROPONIN-I EXPECTED VALUES <0.045 Negative 0.045 - 0.590 Consistent with Cardiac Damage > OR = 0.600 Critical Value Not every elevated troponin is indicative of TX. T hesevalues should be used with clinical judgement in examiningthe patient's clinical picture for diagnosis. To establisha diagnosis of TX versus myocardial injury, there must be ademonstrated rise and/ or fall in the troponin values, inaddition to ischemic symptoms, EKG changes, new regionalwall motion abnormality, and/or angiographical evidence. PLEASE NOTE: REFERENCE RANGES EDITED 11/08/1715-Mar-201823-Ues-764175:24 Bedside Glucose Comments: [facility] LaboratoryPoint of Lnts[address] [place], [place] [address] BEDSIDE GLU 92 mg/dL (Normal) Range: 70-110 Comments: MANAGEMENT OF PATIENT CARE PER NURSING PROTOCOL 28-Feb-20183:57 Bedside Glucose Comments: [facility] LaboratoryPoint of Qngv[address] [place], [place] [address] BEDSIDE GLU 115 mg/dL (Abnormal) Range: 70-110 Comments: MANAGEMENT OF PATIENT CARE PER NURSING PROTOCOL :15 Urinalysis, Complete Comments: How was Urine Obtained? [facility] [address]kyxcs[address] [place], [address] HYALINE CAST 5-10 SEEN {/lpf} (Normal) [...] (Normal) :15 Urine Drug Screen (VISTA) Comments: [facility] [address] [place], [address] THC NEGATIVE (Normal) PCP NEGATIVE [...] TESTING MUST BE ORDERED SEPARATELY. USE TESTMNEMONIC: [facility] :00 Partial Thromboplast Time Comments: [facility] [address] [place], [address] PTT 28.4 s (Normal) Range: 24.1-36.2 :00 Prothrombin Time w/INR Comments: [facility] [address] [place], [address] INR 1.1 (Normal) PROTIME 14.3 s (Normal) Range: 11.7-14.9 :55 Alcohol, Blood (Medical)-Serum Comments: [facility] [address] [place], [place], [phone] SERUM ETOH < 3.0 mg/dL (Normal) Comments: The serum:whole blood ethanol ratio is approximately 1.14and varies slightly with hematocrit.Medical Alcohol reference interval and critical value innon-tolerant individuals; 50 - 100 Impairment 100 Intoxication 100 - 250 Severe Poisoning 250 - 400 Deep/possible fatal coma :55 CBC W/Diff, Automated Comments: [facility] [address] [place], [place], [address] Absolute Lymph 1.41 {X10_3/ul} (Normal) Range: 0.83-4.51 [...] Range: 4.4-11.0 28-Feb-20181:55 Comprehensive Metabolic Profil Comments: [facility] [address] [place], [place], [address] GAP 10 (Normal) Range: 5-15 CO2 26.0 [...] A.D.A. criteria.Please note revised GLUCOSE reference range qtdciotrk34/02/2018. 9-Hkj-879129:45 Alcohol, Blood (Medical)-Serum Comments: [facility] [address] [place], [place], [address] SERUM ETOH 5.0 mg/dL (Normal) Comments: The serum:whole blood ethanol ratio is approximately 1.14and varies slightly with hematocrit.Medical Alcohol reference interval and critical value innon-tolerant individuals; 50 - 100 Impairment 100 Intoxication 100 - 250 Severe Poisoning 250 - 400 Deep/possible fatal coma 2-Tau-147052:45 Basic Metabolic Profile (BMP) Comments: [facility] [address] [place], [place], [address] GAP 10 (Normal) Range: 5-15 CO2 26.0 [...] A.D.A. criteria.Please note revised GLUCOSE reference range cjejofqwu13/02/2018. 9-Rxo-146873:45 CBC W/Diff, Automated Comments: [facility] [address]urt[address]stz[address] [place], [place], [address] Absolute Lymph 3.05 {X10_3/ul} (Normal) Range: 0.83-4.51 [...] 4.2-5.4 WBC 9.6 K/mm3 (Normal) Range: 4.4-11.0 5-Nxh-495832:45 ,Serum,hCG Quali. Comments: [facility] [address] [facility] [place], [address] HCGSQUAL NEGATIVE {Negative} (Normal) Range: 0-9 Nonpreg HCG Qual triggr 2 m[iU]/mL (Normal) 6-Ogi-017249:40 Urinalysis, Complete Comments: Order Date: 02/26/18How was Urine Obtained? [facility] [address]zwz[address] [facility] [place], [address] MUCUS, URINE 1+ {/hpf} (Normal) [...] CLARITY Sl. Cloudy (Normal) COLOR Yellow (Normal) 2-Xhi-793086:40 Urine Drug Screen (VISTA) Comments: [facility] [address]zfia[address] [facility] [place], [address] THC NEGATIVE (Normal) PCP NEGATIVE [...] TESTING MUST BE ORDERED SEPARATELY. USE TESTMNEMONIC: [facility] 80-Hrs-273929:50 Urinalysis, Complete Comments: Order Date: 02/23/18Has pt arrived? YHow was Urine Obtained? CLEAN [facility] Oxrsmhdtae[address] [facility] [place], [address] MUCUS, URINE 2+ {/hpf} (Normal) [...] (Normal) CLARITY Clear (Normal) COLOR Yellow (Normal) 02-Sju-020140:50 Urine Drug Screen (VISTA) Comments: [facility] [address]ceu[address] [facility] [place], [address] THC NEGATIVE (Normal) PCP NEGATIVE [...] TESTING MUST BE ORDERED SEPARATELY. USE TESTMNEMONIC: [facility] 43-Des-550021:15 Alcohol, Blood (Medical)-Serum Comments: [facility] [address]qh[address] [place], [address] SERUM ETOH < 3.0 mg/dL (Normal) Comments: The serum:whole blood ethanol ratio is approximately 1.14and varies slightly with hematocrit.Medical Alcohol reference interval and critical value innon-tolerant individuals; 50 - 100 Impairment 100 Intoxication 100 - 250 Severe Poisoning 250 - 400 Deep/possible fatal coma 41-Bth-589462:15 CBC W/Diff, Automated Comments: [facility] [address] [place], [address] Absolute Lymph 2.67 {X10_3/ul} (Normal) [...] 4.2-5.4 WBC 10.7 K/mm3 (Normal) Range: 4.4-11.0 18-Jgn-236296:15 Comprehensive Metabolic Profil Comments: [facility] [address] [place], [address] GAP 9 (Normal) Range: 5-15 [...] Comments: Please note revised GLUCOSE reference range umyluuzxh59/02/2018. 75-Cfo-352997:15 ,Serum,hCG Quali. Comments: [facility] [address] [place], [address] HCGSQUAL NEGATIVE {Negative} (Normal) Range: 0-9 Nonpreg HCG Qual triggr 2 m[iU]/mL (Normal) 56-Mxj-50755:07 Bedside Glucose Comments: [facility] LaboratoryPoint of [address] [place] [address] BEDSIDE GLU 107 mg/dL (Normal) Range: 70-110 Comments: MANAGEMENT OF PATIENT CARE PER NURSING PROTOCOL 49-Vbl-32269:00 COLON BIOPSY (CHOOSE See Note (Normal) Comments: [facility] [address] [place], [address] SITE) Comments: Patient: SIMI NIELSEN : 1970 (47/F) Acct Num: [id number] Phys: Kajal LEON,[place] Unit Num: [id number] Loc: EN Specimen: [id number] Received: 02/14/18 - 1323 Spec Type: COL [...] one cassette. / DEBORAH:torres 02/14/18 TC:4 CPT: 33994 x2 HEADER OPERATION: Colonoscopy PRE-OP DIAGNOSIS: Diarrhea TISSUE S UBMITTED: A Terminal ileum biopsy, B Random colon biopsies MICROSCOPIC DESCRIPTION Slides are reviewed. MICROSCOPIC DIAGNOSIS A. Terminal ileum, biopsy: Fragments of small inte stinal mucosa, no pathologic diagnosis. B. Colon, random biopsy: Fragments of colonic mucosa, no pathologic diagnosis. SJ:torres 02/15/18 Signed __ Connor Chao 02/15/18 <signature on file> 93-Oma-96714:24 Bedside Glucose Comments: [facility] LaboratoryPoint of Bjxm[address] [place], [place] [address] BEDSIDE GLU 108 mg/dL (Normal) Range: 70-110 Comments: MANAGEMENT OF PATIENT CARE PER NURSING PROTOCOL 34-Oio-768878:27 Urinalysis, Office (45483) UA - LEUKOCYTE ESTERASE Negative (Normal) UA - NITRITE Negative (Normal) URINE UROBILINGN DENISE TIMED Normal mg/dL (Normal) UA - PROTEIN Negative mg/dL (Normal) UA - PH 6.0 (Normal) UA - BLOOD Negative (Normal) UA - SPECIFIC GRAVITY 1.020 (Normal) UA - KETONES Negative mg/dL (Normal) UA - BILIRUBIN Negative (Normal) UA - GLUCOSE Negative (Normal) :55 Blood Glucose , Office (38968) Blood Glucose , Office 93 (Normal) :55 HgA1C , Office (46006) HgA1C , Office 5.6 % (Normal) Range: 4.6 - 7.1 :48 HgA1C , Office (76300) HgA1C , Office 5.2 % (Normal) Range: 4.6 - 7.1 :03 VITAMIN B-12 (CYANOCOBALAMIN) Comments: PATIENT NOT FASTINGPERFORMED BY: VideologyCarrie Tingley HospitalJwptrw7898 [employer] [facility] [id number] (04176) Vitamin B12 399 pg/mL (Normal) Range: 232-1245 :03 CBC W/AUTO DIFF WBC (03097) Comments: PATIENT NOT FASTINGPERFORMED BY: VideologyCarrie Tingley HospitalSobqmm3488 [facility] [id number] Immature Grans (Abs) 0.0 {x10E3/uL} (Normal) Range: [...] PANEL, COMPREHENSIVE Comments: PATIENT NOT FASTINGPERFORMED BY: LabCoJFK Johnson Rehabilitation InstituteCcrtma4590 [facility] [id number] (28013) ALT (SGPT) 28 [iU]/L (Normal) Range: 0-32 [...] Glucose, Serum 97 mg/dL (Normal) Range: 65-99 01-Gea-678841:03 TSH (76721) Comments: PATIENT NOT FASTINGPERFORMED BY: [facility] AccessMclaren Flint6370 [facility] [id number] TSH 2.680 {uIU/mL} (Normal) Range: 0.450-4.500 63-Mrz-907285:13 PT (Prothrobim Time) (88735) Comments: PATIENT NOT FASTINGPERFORMED BY: Vital AccessLee'S Summit HospitalNhthtb7959 [facility] [id number] Prothrombin Time 21.4 {sec} (Abnormal) Range: 9.1-12.0 INR 2.1 (Abnormal) Range: 0.8-1.2 Comments: Reference interval is for non-anticoagulated patients. . Suggested INR therapeutic range for Vitamin K anta gonist therapy: Standard Dose (moderate intensity therapeutic range): 2.0 - 3.0 Higher intensity therapeutic range 2.5 - 3.5 22-Nsw-132451:31 URINE SHERITA CULTURE-DENISE COL Comments: PERFORMED BY: [facility] Flint6370 [facility] [id number] Information: SRC:UC COUNT (45275) Result 1 MUG (Normal) Comments: Mixed urogenital flora10,000-25,000 colony forming units per mL Urine Final report (Normal) Culture,Comprehensive 69-Mzk-636296:33 Urinalysis, Office (10257) UA - LEUKOCYTE ESTERASE Negative (Normal) UA - NITRITE Negative (Normal) URINE UROBILINGN DENISE TIMED Normal mg/dL (Normal) UA - PROTEIN Negative mg/dL (Normal) UA - PH 5.0 (Normal) UA - BLOOD Negative (Normal) UA - SPECIFIC GRAVITY 1.010 (Normal) UA - KETONES Negative mg/dL (Normal) UA - BILIRUBIN Negative (Normal) UA - GLUCOSE Negative (Normal) 53-Qac-280661:32 HEPATIC FUNCTION PANEL Comments: PATIENT NOT FASTINGPERFORMED BY: [facility]Mcl[facility] Flint6370 [facility] [id number] (96363) ALT (SGPT) 78 [iU]/L (Abnormal) Range: 0-32 AST (SGOT) 38 [iU]/L (Normal) Range: 0-40 Alkaline Phosphatase, S 77 [iU]/L (Normal) Range: 39-117 Bilirubin, Direct 0.18 mg/dL (Normal) Range: 0.00-0.40 Bilirubin, Total 0.6 mg/dL (Normal) Range: 0.0-1.2 Albumin, Serum 4.0 g/dL (Normal) Range: 3.5-5.5 Protein, Total, Serum 6.8 g/dL (Normal) Range: 6.0-8.5 :32 HEPATITIS PANEL (80672) Comments: PATIENT NOT FASTINGPERFORMED BY: Vital AccessLaura [place] 5809570 [facility] [id number] Hep C Virus Ab <0.1 {s/co_ratio} (Normal) Range: 0.0-0.9 Comments: Negative: < 0.8 Indeterminate: 0.8 - 0.9 Positive: > 0.9 . The CDC recommends that a positive HCV antibody result be followed up with a HCV Nucleic Acid Amplification test (440834). Hep B Core Ab, IgM Negative (Normal) HBsAg Screen Negative (Normal) Hep A Ab, IgM Negative (Normal) :32 ANTIMITOCHONDRIAL ANTIBODY Comments: PATIENT NOT FASTINGPERFORMED BY: [facility] AccessL[place] 5809570 [facility] [id number] (78251) Mitochondrial (M2) Antibody <20.0 {Units} (Normal) Range: 0.0-20.0 Comments: Negative 0.0 - 20.0 Equivocal 20.1 - 24.9 Positive >24.9 . Mitochondrial (M2) Antibodies are found in 90-96% of patients with primary biliary cirrhosis. :32 TRANSFERRIN (69311) Comments: PATIENT NOT FASTINGPERFORMED BY: [facility] AccessMcl[facility] Flint6370 [facility] [id number] Transferrin 265 mg/dL (Normal) Range: 200-370 67-Qft-858861:32 GGT (GAMMA GLUTAMYLTRANSFERASE) Comments: PATIENT NOT FASTINGPERFORMED BY: [facility] Access[address] [id number] (23154) GGT 57 [iU]/L (Normal) Range: 0-60 94-Msg-193389:32 FERRITIN (57294) Comments: PATIENT NOT FASTINGPERFORMED BY: VideologyJFK Johnson Rehabilitation InstituteYogcog5317 [facility] [id number] Ferritin, Serum 317 ng/mL (Abnormal) Range: 15-150 :32 CMV IGM ANTBDY (43046) Comments: PATIENT NOT FASTINGPERFORMED BY: [facility] AccessL[place] 5809570 [facility] [id number] Cytomegalovirus (CMV) Ab, IgM <30.0 AU/mL (Normal) Range: 0.0-29.9 Comments: Negative <30.0 Equivocal 30.0 - 34.9 Positive >34.9 A positive result is generally indicative of acute infection, reactivation or persistent IgM production. :32 CERULOPLASMIN (27347) Comments: PATIENT NOT FASTINGPERFORMED BY: VideologyJFK Johnson Rehabilitation InstitutePimufi694[address] [place] [address] [id number] Ceruloplasmin 29.9 mg/dL (Normal) Range: 19.0-39.0 :32 ASM (ANTI SMOOTH MUSCLE Comments: PATIENT NOT FASTINGPERFORMED BY: [facility]ology[address] [id number] ANTIBODY) (35194) Actin (Smooth Muscle) Antibody 7 {Units} (Normal) Range: 0-19 Comments: Negative 0 - 19 Weak positive 20 - 30 Moderate to strong positive >30 . Actin Antibodies are found in 52-85% of patients with autoimmune hepatitis or chronic active hepatitis and in 22% of patients with primary biliary cirrhosis. :32 ANTI-LIVER/KIDNEY MICROSOMAL Comments: PATIENT NOT FASTINGPERFORMED BY: VideologyJFK Johnson Rehabilitation InstituteKvyutu1392 [facility] [id number] ANTIBODY (73615) Liver-Kidney Microsomal Ab 1.5 {Units} (Normal) Range: 0.0-20.0 Comments: Negative 0.0 - 20.0 Equivocal 20.1 - 24.9 Positive >24.9 . LKM type 1 antibodies are detected in patients with autoimmune hepatitis type 2 and in up to 8% of patients with chronic HCV infection. :32 REYNALDO (ANTINUCLEAR ANTIBODY) Comments: PATIENT NOT FASTINGPERFORMED BY: Lab15 Cunningham StreetDublin [place] [id number] (60710) REYNALDO Direct Negative (Normal) 50-Uod-064925:41 TSH (41775) Comments: PATIENT WAS FASTINGPERFORMED BY: [facility]6370 [facility] [id number] TSH 2.840 {uIU/mL} (Normal) Range: 0.450-4.500 19-Vdi-123866:41 METABOLIC PANEL, COMPREHENSIVE Comments: PATIENT WAS FASTINGPERFORMED BY: [facility]6370 [facility] [id number] (53194) ALT (SGPT) 94 [iU]/L (Abnormal) Range: 0-32 [...] Glucose, Serum 94 mg/dL (Normal) Range: 65-99 88-Peq-719160:41 LIPID PANEL (41821) Comments: PATIENT WAS FASTINGPERFORMED BY: VideologyJFK Johnson Rehabilitation InstituteZeymgj8773 [facility] [id number] LDL/HDL Ratio 2.3 {ratio_units} (Normal) Range: 0.0-3.2 Comments: LDL/HDL Ratio Men Women 1/2 Avg.Risk 1.0 1.5 Av g.Risk 3.6 3.2 2X Avg.Risk 6.2 5.0 3X Avg.Risk 8.0 6.1 LDL Cholesterol Calc 79 mg/dL (Normal) Range: 0-99 VLDL Cholesterol Koby 31 mg/dL (Normal) Range: 5-40 HDL Cholesterol 35 mg/dL (Abnormal) Triglycerides 155 mg/dL (Abnormal) Range: 0-149 Cholesterol, Total 145 mg/dL (Normal) Range: 100-199 21-Aax-640290:41 CBC W/AUTO DIFF WBC (33174) Comments: PATIENT WAS FASTINGPERFORMED BY: VideologyJFK Johnson Rehabilitation InstituteUpjdrn4758 [facility] [id number] Immature Grans (Abs) 0.0 {x10E3/uL} (Normal) Range: [...] (Normal) Range: 3.4-10.8 :08 HgA1C , Office (79472) HgA1C , Office 5.4 % (Normal) Range: 4.6 - 7.1 :08 Blood Glucose , Office (75930) Blood Glucose , Office 128 (Normal) :21 Rapid Flu (03924 x 2) Influenza A Ag negative (Normal) :07 URINE SHERITA CULTURE-DENISE COL Comments: PERFORMED BY: LabCoJFK Johnson Rehabilitation InstituteLmxkyv9090 [facility] [id number] Information: SRC:UR COUNT (82571) Antimicrobial MIHEAD (Normal) Comments: S = Susceptible; [...] primarily for treating urinary tract infections. (CLSI, R153-Y62,2009) Result 1 Escherichia coli Comments: 10,000-25,000 colony forming units per mL (Abnormal) Urine Final report Culture,Comprehensive (Abnormal) 5-Jlk-462988:35 Urinalysis, Office (69611) UA - LEUKOCYTE ESTERASE Trace (Normal) UA - NITRITE Negative (Normal) URINE UROBILINGN DENISE TIMED 2 mg/dL (Normal) UA - PROTEIN Negative mg/dL (Normal) UA - PH 6 (Abnormal) UA - BLOOD Hemolyzed Trace (Normal) UA - SPECIFIC GRAVITY 1.015 (Normal) UA - KETONES Negative mg/dL (Normal) UA - BILIRUBIN Negative (Normal) UA - GLUCOSE Negative (Normal) 78-Lne-731377:47 URINE SHERITA CULTURE (DENISE COL Comments: PERFORMED BY: [facility] [place] [id number] COUNT) (96841) Antimicrobial MIHEAD (Normal) Comments: S = Susceptible; [...] Colonies/mL (Abnormal) Urine Final report Culture,Comprehensive (Abnormal) 95-Kvj-281013:47 URINALYSIS (11198) Comments: PERFORMED BY: Ak?[facility]EC[facility] [id number] Information: SRC:UR Microscopic Examination MICNIP (Normal) Comments: Microscopic not indicated and not performed. Nitrite, Urine Negative (Normal) Urobilinogen,Semi-Qn 0.2 mg/dL (Normal) Range: 0.2-1.0 Bilirubin Negative (Normal) Occult Blood Negative (Normal) Ketones Negative (Normal) Glucose Negative (Normal) Protein Negative (Normal) WBC Esterase Negative (Normal) Appearance Clear (Normal) Urine-Color Yellow (Normal) pH 6.0 (Normal) Range: 5.0-7.5 Specific Byron 1.012 (Normal) Range: 1.005-1.030 :35 Basic Metabolic Profile (BMP) Comments: 'TROP' Serial specimen #1, #2, #3, or #4: 1[facility] [address] [place], [place], [address] GAP 9 (Normal) Range: 5-15 CO2 31.0 [...] A.D.A. criteria. :35 CBC W/Diff, Automated Comments: [facility] [address]ugxnwi[address] [place], [place], [id number] Absolute Lymph 2.00 {X10_3/ul} (Normal) Range: 0.83-4.51 [...] 4.2-5.4 WBC 7.9 K/mm3 (Normal) Range: 4.4-11.0 85-Hem-292866:35 Troponin-I Comments: 'TROP' Serial specimen #1, #2, #3, or #4: 1[facility] [address]fd[address] [place], [address] TROPONIN-I < 0.02 ng/mL (Normal) Comments: TROPONIN-I EXPECTED VALUES <0.05 NEGATIVE 0.06 - 0.59 AT RISK OF TX > OR = 0.60 SUGGEST TX 82-Igr-246989:45 Comprehensive Metabolic Profil Comments: Comments: PT.TAKING SULFAMETHOXAZOLE, SAID THE LABEL COULD AFFECT RESULTSMount [facility]. [facility] [address]es[address] [place], [address] GAP 9 (Normal) Range: 5-15 [...] mg/dL (Normal) Range: 70-110 :42 HGB A1C (17714) Comments: PATIENT NOT FASTINGPERFORMED BY: Ak?[facility]EC[facility] [id number] Hemoglobin A1c 6.8 % (Abnormal) Range: 4.8-5.6 Comments: . Pre-diabetes: 5.7 - 6.4 Diabetes: >6.4 Glycemic control for adults with diabetes: <7.0 :42 SED RATE ERYTHROCYTE (62527) Comments: PATIENT NOT FASTINGPERFORMED BY: [employer]70 [facility] [id number] Sedimentation Rate-Westergren 15 mm/h (Normal) Range: 0-32 :42 C-REACTIVE PROTEIN (72910) Comments: PATIENT NOT FASTINGPERFORMED BY: [employer]70 [facility] [id number] C-Reactive Protein, Quant 15.5 mg/L (Abnormal) Range: 0.0-4.9 :42 TSH (18773) Comments: PATIENT NOT FASTINGPERFORMED BY: VideologyCarrie Tingley HospitalFoceko2693 [facility] [id number] TSH 2.870 {uIU/mL} (Normal) Range: 0.450-4.500 :42 METABOLIC PANEL, COMPREHENSIVE Comments: PATIENT NOT FASTINGPERFORMED BY: VideologyCarrie Tingley HospitalRfisba3391 [facility] [id number] (72611) ALT (SGPT) 51 [iU]/L (Abnormal) Range: 0-32 [...] Range: 65-99 :42 CBC W/AUTO DIFF WBC (67377) Comments: PATIENT NOT FASTINGPERFORMED BY: VideologyJFK Johnson Rehabilitation InstituteClfmrw5132 [facility] [id number] Immature Grans (Abs) 0.0 {x10E3/uL} (Normal) Range: [...] 3.77-5.28 WBC 9.7 {x10E3/uL} (Normal) Range: 3.4-10.8 40-Ijd-22277:22 PT (Prothrobim Time) (29505) Comments: PATIENT NOT FASTINGPERFORMED BY: LabCoJFK Johnson Rehabilitation InstituteDchfux8701 [facility] [id number] Prothrombin Time 23.3 {sec} (Abnormal) Range: 9.1-12.0 INR 2.3 (Abnormal) Range: 0.8-1.2 Comments: Reference interval is for non-anticoagulated patients. . Suggested INR therapeutic range for Vitamin K anta gonist therapy: Standard Dose (moderate intensity therapeutic range): 2.0 - 3.0 Higher intensity therapeutic range 2.5 - 3.5 :36 PT (Prothrobim Time) (67969) Comments: PATIENT NOT FASTINGPERFORMED BY: [facility]6370 [facility] [id number] Prothrombin Time 25.8 {sec} (Abnormal) Range: 9.1-12.0 INR 2.5 (Abnormal) Range: 0.8-1.2 Comments: Reference interval is for non-anticoagulated patients. . Suggested INR therapeutic range for Vitamin K anta gonist therapy: Standard Dose (moderate intensity therapeutic range): 2.0 - 3.0 Higher intensity therapeutic range 2.5 - 3.5 34-Sye-161777:27 PT (Prothrobim Time) (64208) Comments: PATIENT NOT FASTINGPERFORMED BY: [facility]6370 [facility] [id number] Prothrombin Time 22.3 {sec} (Abnormal) Range: 9.1-12.0 INR 2.2 (Abnormal) Range: 0.8-1.2 Comments: Reference interval is for non-anticoagulated patients. . Suggested INR therapeutic range for Vitamin K anta gonist therapy: Standard Dose (moderate intensity therapeutic range): 2.0 - 3.0 Higher intensity therapeutic range 2.5 - 3.5 78-Zny-699402:05 CBC-Complete Blood Cnt No Diff Comments: [facility] Rxfwxwoprp6978 [place], [place], [address] MPV 10.2 fL (Normal) Range: 6.2-12.0 PLT [...] (Normal) Range: 4.4-11.0 :24 PT (Prothrobim Time) (97664) Comments: PATIENT NOT FASTINGPERFORMED BY: [facility]6370 [facility] [id number] Prothrombin Time 20.6 {sec} (Abnormal) Range: 9.1-12.0 INR 2.0 (Abnormal) Range: 0.8-1.2 Comments: Reference interval is for non-anticoagulated patients. . Suggested INR therapeutic range for Vitamin K anta gonist therapy: Standard Dose (moderate intensity therapeutic range): 2.0 - 3.0 Higher intensity therapeutic range 2.5 - 3.5 :42 PT (Prothrobim Time) (34313) Comments: PATIENT NOT FASTINGPERFORMED BY: [facility]6370 [facility] [id number] Prothrombin Time 20.0 {sec} (Abnormal) Range: 9.1-12.0 INR 2.0 (Abnormal) Range: 0.8-1.2 Comments: Reference interval is for non-anticoagulated patients. . Suggested INR therapeutic range for Vitamin K anta gonist therapy: Standard Dose (moderate intensity therapeutic range): 2.0 - 3.0 Higher intensity therapeutic range 2.5 - 3.5 :38 PT (Prothrobim Time) (43889) Comments: PATIENT NOT FASTINGPERFORMED BY: [facility]6370 [facility] [id number] Prothrombin Time 19.4 {sec} (Abnormal) Range: 9.1-12.0 INR 1.9 (Abnormal) Range: 0.8-1.2 Comments: Reference interval is for non-anticoagulated patients. . Suggested INR therapeutic range for Vitamin K anta gonist therapy: Standard Dose (moderate intensity therapeutic range): 2.0 - 3.0 Higher intensity therapeutic range 2.5 - 3.5 10-Ypt-112143:07 PT (Prothrobim Time) (71722) Comments: PATIENT NOT FASTINGPERFORMED BY: [place] 5908370 [facility] [id number] Prothrombin Time 18.9 {sec} (Abnormal) Range: 9.1-12.0 INR 1.8 (Abnormal) Range: 0.8-1.2 Comments: Reference interval is for non-anticoagulated patients. . Suggested INR therapeutic range for Vitamin K anta gonist therapy: Standard Dose (moderate intensity therapeutic range): 2.0 - 3.0 Higher intensity therapeutic range 2.5 - 3.5 :40 PT (Prothrobim Time) (54876) Comments: PATIENT NOT FASTINGPERFORMED BY: [facility]6370 [facility] [id number] Prothrombin Time 21.4 {sec} (Abnormal) Range: 9.1-12.0 INR 2.1 (Abnormal) Range: 0.8-1.2 Comments: Reference interval is for non-anticoagulated patients. . Suggested INR therapeutic range for Vitamin K anta gonist therapy: Standard Dose (moderate intensity therapeutic range): 2.0 - 3.0 Higher intensity therapeutic range 2.5 - 3.5 :18 PT (Prothrobim Time) (59733) Comments: PATIENT NOT FASTINGPERFORMED BY: [facility]6370 [facility] [id number] Prothrombin Time 18.6 {sec} (Abnormal) Range: 9.1-12.0 INR 1.8 (Abnormal) Range: 0.8-1.2 Comments: Reference interval is for non-anticoagulated patients. . Suggested INR therapeutic range for Vitamin K anta gonist therapy: Standard Dose (moderate intensity therapeutic range): 2.0 - 3.0 Higher intensity therapeutic range 2.5 - 3.5 75-Asn-328837:03 PT (Prothrobim Time) (48907) Comments: PATIENT NOT FASTINGPERFORMED BY: [facility]6370 [facility] [id number] Prothrombin Time 23.6 {sec} (Abnormal) Range: 9.1-12.0 INR 2.3 (Abnormal) Range: 0.8-1.2 Comments: Reference interval is for non-anticoagulated patients. . Suggested INR therapeutic range for Vitamin K anta gonist therapy: Standard Dose (moderate intensity therapeutic range): 2.0 - 3.0 Higher intensity therapeutic range 2.5 - 3.5 :49 PT (Prothrobim Time) (10329) Comments: PATIENT NOT FASTINGPERFORMED BY: [facility]6370 [facility] [id number] Prothrombin Time 24.7 {sec} (Abnormal) Range: 9.1-12.0 INR 2.4 (Abnormal) Range: 0.8-1.2 Comments: Reference interval is for non-anticoagulated patients. . Suggested INR therapeutic range for Vitamin K anta gonist therapy: Standard Dose (moderate intensity therapeutic range): 2.0 - 3.0 Higher intensity therapeutic range 2.5 - 3.5 :34 PT (Prothrobim Time) (52584) Comments: PATIENT NOT FASTINGPERFORMED BY: [facility]6370 [facility] [id number] Prothrombin Time 23.1 {sec} (Abnormal) Range: 9.1-12.0 INR 2.3 (Abnormal) Range: 0.8-1.2 Comments: Reference interval is for non-anticoagulated patients. . Suggested INR therapeutic range for Vitamin K anta gonist therapy: Standard Dose (moderate intensity therapeutic range): 2.0 - 3.0 Higher intensity therapeutic range 2.5 - 3.5 :26 PT (Prothrobim Time) (20366) Comments: PATIENT NOT FASTINGPERFORMED BY: [facility]6370 [facility] [id number] Prothrombin Time 14.3 {sec} (Abnormal) Range: 9.1-12.0 INR 1.4 (Abnormal) Range: 0.8-1.2 Comments: Reference interval is for non-anticoagulated patients. . Suggested INR therapeutic range for Vitamin K anta gonist therapy: Standard Dose (moderate intensity therapeutic range): 2.0 - 3.0 Higher intensity therapeutic range 2.5 - 3.5 6-Njy-277330:31 Prothrombin Time w/INR Comments: Order Date: 08/03/16Order Info: 6301-6 - PTComments: STATOrder Date: 08/03/16Order Info: 6301-6 - PTComments: STATOrder Date: 08/03/16Order Info: 6301-6 - PTComments: [facility] gbvfqyypf[address] [place], [id number] INR 2.2 (Normal) PROTIME 24.1 s (Abnormal) Range: 11.7-14.9 8-Aph-282168:05 PT (Prothrobim Time) (26449) Comments: PATIENT NOT FASTINGPERFORMED BY: [facility] Jdglrk1987 [facility] [id number] Prothrombin Time 10.4 {sec} (Normal) Range: 9.1-12.0 INR 1.0 (Normal) Range: 0.8-1.2 Comments: Reference interval is for non-anticoagulated patients. . Suggested INR therapeutic range for Vitamin K anta gonist therapy: Standard Dose (moderate intensity therapeutic range): 2.0 - 3.0 Higher intensity therapeutic range 2.5 - 3.5 00-Ldx-991497:30 Urinalysis, Complete Comments: How was Urine Obtained? CLEAN [facility] Fmxuvigchx[address] [place], [place], [id number] MUCUS, URINE 1+ {/hpf} (Normal) BACTERIA 0 [...] CLARITY Sl. Cloudy (Normal) COLOR Yellow (Normal) 85-Zvt-391964:15 Basic Metabolic Profile (BMP) Comments: 'TROP' Serial specimen #1, #2, #3, or #4: [facility] Rhgirleuhx6209 [place], [address] GAP 7 (Normal) Range: 5-15 [...] <126 mg/dLsuggests IMPAIRED HOMEOSTASIS per A.D.A. criteria. 22-Sbd-157335:15 BNP,B-Type NATRIURETIC PEPTIDE Comments: [facility] Klnvmmskbe9[address] [place], [address] B-TYPE HALEY PEP < 2.0 pg/mL (Normal) Range: 0-100 64-Mqy-675065:15 CBC W/Diff, Automated Comments: [facility] Lakmtvxzdn9473 [place], [address] MACROCYTE RARE (Normal) ANISO RARE [...] 4.2-5.4 WBC 7.0 K/mm3 (Normal) Range: 4.4-11.0 64-Kkb-778957:15 Troponin-I Comments: 'TROP' Serial specimen #1, #2, #3, or #4: [address] [place] [address] Vgkdhaavoo6476 Radha [place], [place], [address] TROPONIN-I < 0.02 ng/mL (Normal) Comments: TROPONIN-I EXPECTED VALUES <0.05 NEGATIVE 0.06 - 0.59 AT RISK OF [place] > OR = 0.60 SUGGEST [place] 59-Fyl-824131:15 PAP I-G w/rfx hrHPV Comments: CYTOLOGY INFORMATION:- CLINICAL INFORMATION: HYSTERECTOMY- DATE LMP/MENOPAUSE:- COLLECTION VIAL: Thin Prep Vial- RIFFLER TENDER SOURCE: VAGINAL- COLLECTION TECHNIQUE: SPATULA ONLYCYTOLOGY INFORMATION:- CLINICAL IN FORMATION: HYSTERECTOMY- DATE LMP/MENOPAUSE:- COLLECTION VIAL: Thin Prep Vial- RIFFLER TENDER SOURCE: VAGINAL- COLLECTION TECHNIQUE: SPATULA ONLYSpecimen Comment: [id number] Comment: No. of contai ners..01 CYTYC Thin Prep VialLabCorp (refer to report for specific site)refer to report for address and phone number HPV RFLX Comment (Normal) Comments: The HPV DNA reflex criteria were not met with this specimenresult therefore, no HPV testing was performed.Performed at: [address] [id number] Director: Che Nicole MD, Phone: [phone] PAPSMR Comment (Normal) Comments: The Pap smear [...] system. PERFORM Comment (Normal) Comments: Arminda Lopez, Modeling Instructor (ASCP) ADEQ Comment (Normal) Comments: Satisfactory for evaluation. Endocervical and/or squamous metaplasticcells (endocervical component) are present. DIAGN Comment (Normal) Comments: NEGATIVE FOR INTRAEPITHELIAL LESION AND MALIGNANCY. 46-Vjt-018377:10 Basic Metabolic Profile (BMP) Comments: [facility] Qsfuucxvwy39[address] [place], [address] GAP 7 (Normal) Range: 5-15 CO2 28.0 [...] <126 mg/dLsuggests IMPAIRED HOMEOSTASIS per A.D.A. criteria. 6-Ymj-259628:29 BNP,B-Type NATRIURETIC PEPTIDE Comments: [facility] Fjrhspqgfo75[address] [place], [address] B-TYPE HALEY PEP 4.2 pg/mL (Normal) Range: 0-100 :36 Troponin I (48628) Comments: PATIENT NOT FASTINGPERFORMED BY: [employer]70 [facility] [id number] BY: [employer] [id number] Troponin I <0.01 ng/mL (Normal) Range: 0.00-0.04 89-Zgt-315684:36 BNTP (36610) Comments: PATIENT NOT FASTINGPERFORMED BY: [employer]70 [facility] [id number] BY: [employer] [address] [id number] B-Type Natriuretic Peptide 5.5 pg/mL (Normal) Range: 0.0-100.0 :36 UPEP (12725) Comments: PATIENT NOT FASTINGPERFORMED BY: [employer]70 [facility] [id number] BY: [employer] [id number] Please note: SPRCS (Normal) Comments: Protein electrophoresis scan will follow via computer, mail, orcourier delivery. M-Stanley, % Not Observed % (Normal) Gamma Globulin, U 16.5 % (Normal) Beta Globulin, U 29.9 % (Normal) Wznhi-3-Wcslahuj, U 22.4 % (Normal) Dhkbv-7-Inktrxno, U 6.5 % (Normal) Albumin, U 24.7 % (Normal) Protein,Total,Urine 9.6 mg/dL (Normal) 03-Hdi-123606:36 SPEP (72276) Comments: PATIENT NOT FASTINGPERFORMED BY: [employer] [facility] [id number] BY: [employer] [id number] Please note: SPRCS (Normal) Comments: Protein electrophoresis scan will follow via computer, mail, orcourier delivery. A/G Ratio 0.9 (Normal) Range: 0.7-1.7 Globulin, Total 3.6 g/dL (Normal) Range: 2.2-3.9 M-Stanley Not Observed g/dL (Normal) Gamma Globulin 1.5 g/dL (Normal) Range: 0.4-1.8 Beta Globulin 1.2 g/dL (Normal) Range: 0.7-1.3 Tyekz-6-Fnoqldqi 0.7 g/dL (Normal) Range: 0.4-1.0 Aovro-4-Jwzzmwpn 0.2 g/dL (Normal) Range: 0.0-0.4 Albumin 3.4 g/dL (Normal) Range: 2.9-4.4 Protein, Total, Serum 7.0 g/dL (Normal) Range: 6.0-8.5 77-Qjz-866519:36 CCP ANTIBODY (98659) Comments: PATIENT NOT FASTINGPERFORMED BY: Informantonlinelin6370 [facility] [id number] BY: [employer] [id number] CCP Antibodies IgG/IgA 6 {units} (Normal) Range: 0-19 Comments: Negative <20 Weak positive 20 - 39 Moderate positive 40 - 59 Strong positive >59 32-Gle-857423:36 RHEUMATOID FACTOR-QUANT Comments: PATIENT NOT FASTINGPERFORMED BY: Agent Video IntelligenceJFK Johnson Rehabilitation InstituteNjfjxd8399[address] [place] [address] [id number] BY: [employer] [id number] ([address]) RA Latex Turbid. 14.7 {IU/mL} (Abnormal) Range: 0.0-13.9 23-Gfo-374643:36 REYNALDO (ANTINUCLEAR ANTIBODY) Comments: PATIENT NOT FASTINGPERFORMED BY: LabCoMaria [place] [id number] [facility] [id number] BY: [address] [id number] ([address]) REYNALDO Direct Negative (Normal) :36 SJOGREN ANTIBOIDIES Comments: PATIENT NOT FASTINGPERFORMED BY: LabLaura [place] [id number] [facility] [id number] BY: [address] [id number] (ANTI-SS-A/ANTI-SS-B) (91000) Sjogren's Anti-SS-B <0.2 {AI} (Normal) Range: 0.0-0.9 Sjogren's Anti-SS-A <0.2 {AI} (Normal) Range: 0.0-0.9 :31 SPEP (11208) Comments: PATIENT NOT FASTINGPERFORMED BY: [place] [id number] [facility] [id number] Please note: SPRCS (Normal) Comments: Protein electrophoresis scan will follow via computer, mail, orcourier delivery. A/G Ratio 0.9 (Normal) Range: 0.7-1.7 Globulin, Total 3.6 g/dL (Normal) Range: 2.2-3.9 M-Stanley Not Observed g/dL (Normal) Gamma Globulin 1.4 g/dL (Normal) Range: 0.4-1.8 Beta Globulin 1.2 g/dL (Normal) Range: 0.7-1.3 Cahrt-7-Rpgqbcpj 0.7 g/dL (Normal) Range: 0.4-1.0 Vterj-1-Uhatdjuk 0.3 g/dL (Normal) Range: 0.0-0.4 Albumin 3.4 g/dL (Normal) Range: 2.9-4.4 Protein, Total, Serum 7.0 g/dL (Normal) Range: 6.0-8.5 :31 UP (69176) Comments: PATIENT NOT FASTINGPERFORMED BY: [facility] Tfrpey1074 [place] [id number] Please note: SPRCS (Normal) Comments: Protein electrophoresis scan will follow via computer, mail, orcourier delivery. M-Stanley, % Not Observed % (Normal) Gamma Globulin, U 18.0 % (Normal) Beta Globulin, U 32.7 % (Normal) Bvzgh-8-Cffdftbx, U 22.3 % (Normal) Ddnfk-7-Ayfbsequ, U 11.7 % (Normal) Albumin, U 15.4 % (Normal) Protein,Total,Urine 5.1 mg/dL (Normal) :25 CDIFF (Molecular) Comments: [address] [place], [address] CDIFF See Note (Normal) Comments: Cdiff-MolecularC. Diff DNA Negative- No toxigenic C. Diff DNA Detected :25 ENTERIC PATHOGEN PANEL STOOL Comments: [address] [place], [address] EP PANEL See Note (Normal) [...] Detected :25 Ova and Parasites 8623 Comments: [address] [place], [address] OP See Note Comments: O + P 8623OVA AND PARASITES EXAM, ROUTINE These results were obtained using wet preparation(s) and trichrome stained smear. This test does not include testing for Crytosporidium parvum, C (Normal) yclospora, or Microsporidia. TESTING PERFORMED AT [facility]. ORIGINAL REPORT ON FILE IN LAB CONTAINS ADDITIONAL TEST SITE INFORMATION. ____ Ova/Parasite Exam NO OVA, CYSTS, OR PARASITES FOUND. 34-Urw-441509:25 Stool Lactoferrin/WBC Comments: [address] [place] [place], [address] ; will review on 03/19 WBCST See Note (Normal) Comments: Stool Lacto/WBCFecal WBC Lactoferrin Negative: No Fecal WBC Lactoferrin present 26-Fnj-544870:25 Stool Occult Blood iFOB Comments: [address] [place], [address] STOB See Note (Normal) Comments: STOB iFOBOccult Blood Negative :25 Amylase Comments: [address] [place], [address] RADHA 28 U/L (Normal) Range: 25-115 :25 BNP,B-Type NATRIURETIC PEPTIDE Comments: [address] [place], [address] B-TYPE HALEY PEP 3.8 pg/mL (Normal) Range: 0-100 :25 CBC W/Diff, Automated Comments: [address] [place], [address] Absolute Lymph 1.54 {X10_3/ul} (Normal) [...] 4.2-5.4 WBC 7.2 K/mm3 (Normal) Range: 4.4-11.0 35-Dit-23794:25 Comprehensive Metabolic Profil Comments: [facility] Mybrukboir1488 [address] [place], [place], [address] GAP 7 (Normal) Range: 5-15 CO2 30.0 [...] A.D.A. criteria. :25 D-Dimer Quantitative (DVT/PE) Comments: [facility] [address] [place], [place], [address] D-DIMER QUANT < 0.27 {FEU/ug/m} (Abnormal) Range: 0.27-0.49 Comments: NORMAL D-Dimer level (<0.50) indicates no DVT or PE. :25 Lipase Comments: [facility] [address] [place], [place], [address] LIPASE 109 U/L (Normal) Range: 73-393 :25 Lipid Profile Comments: [facility] [address] [place], [place], [id number] VLDL 25 mg/dL (Normal) Range: 5-40 LDL [...] Risk :25 Thyroid Stim Hormone (TSH) Comments: [facility] Bgprgnavsa9753 [address] [place], [address] TSH 3.44 {uIU/mL} (Normal) Range: 0.358-3.74 :25 Vitamin D,25 Hydroxy Comments: [facility] Hogdfaegcm95[address] [place], [address] Vitamin D 25-OH 24.7 ng/mL (Normal) Comments: Vitamin D 25(OH) Status Range Deficiency <20 ng/mL (50nmol/L) Insuffciency 20 - 30 ng/mL (50 - 75 nmol/L) Sufficiency 30 - 100 ng/mL (75 - 250 nmol/L) Toxicity >100 ng/mL (>250 nmol/L) 92-Fbn-636392:02 PT (Prothrobim Time) Comments: PATIENT NOT FASTINGPERFORMED BY: [facility] Nciojj5019 [facility] [id number] Information: [id number] (06513) Prothrombin Time 28.4 {sec} (Abnormal) Range: 9.1-12.0 INR 2.6 (Abnormal) Range: 0.8-1.2 Comments: Reference interval is for non-anticoagulated patients. . Suggested INR therapeutic range for Vitamin K anta gonist therapy: Standard Dose (moderate intensity therapeutic range): 2.0 - 3.0 Higher intensity therapeutic range 2.5 - 3.5 0-Xqe-129540:45 PAP I-G w/rfx hrHPV Comments: CYTOLOGY INFORMATION:- CLINICAL INFORMATION: [g PTHCLINFO]- DATE LMP/MENOPAUSE: [] [g PTHLMPMEN]- COLLECTION VIAL: Thin Prep Vial- RIFFLER TENDER SOURCE: [g PTHGYNSRC]- COLLECTION TECHNIQUE: [g PTHCOL LECT]Specime n Comment: [id number] Comment: No. of containers..01 CYTYC Thin Prep VialTest performed at:[facility] Awurlvrsdd[address] [place] [address] HPV RFLX Comment (Normal) Comments: The HPV DNA reflex criteria were not met with this specimenresult therefore, no HPV testing was performed.Performed at: [address] [id number] Director: Jesse Alejo MD, Phone: [phone] PAPSMR Comment (Normal) Comments: The Pap smear [...] system. PERFORM Comment (Normal) Comments: Alfa Sanchez, Modeling Instructor (ASCP) ADEQ Comment (Normal) Comments: Satisfactory for evaluation. No endocervical component is identified. DIAGN Comment (Normal) Comments: NEGATIVE FOR INTRAEPITHELIAL LESION AND MALIGNANCY. 28-Dec-20140:23 Urinalysis, Complete Comments: Order Date: 12/28/14How was Urine Obtained? TOBACCO WETTER TO SPECIFYTest performed at:[facility] Omgibquyqn[address] [place], [place] [address] MUCUS, URINE 1+ {/hpf} (Normal) BACTERIA 0 [...] Urine Drug Screen (VISTA) Comments: Test performed at:[facility] [address] [place], [place] [address] THC NEGATIVE (Normal) PCP NEGATIVE (Normal) OPIATES [...] TESTING MUST BE ORDERED SEPARATELY. USE TESTMNEMONIC: [facility] :15 Alcohol, Blood (Medical)-Serum Comments: Test performed at:[facility] [address] [place] [address] SERUM ETOH 10.0 mg/dL (Normal) Comments: The serum:whole blood ethanol ratio is approximately 1.14and varies slightly with hematocrit.Medical Alcohol reference interval and critical value innon-tolerant individuals; 50 - 100 Impairment 100 Intoxication 100 - 250 Severe Poisoning 250 - 400 Deep/possible fatal coma :15 Basic Metabolic Profile (BMP) Comments: Test performed at:[facility] Vsxrpuqrxw5262 [facility] [place] [address] GAP 10 (Normal) Range: 5-15 [...] 28-Dec-20140:15 CBC W/Diff, Automated Comments: Test performed at:[facility] Yarlhnwzhb8581 [address] [place], [place] [address] Absolute Lymph 3.11 {X10_3/ul} (Normal) Range: 0.83-4.51 [...] 4.4-11.0 :15 ,Serum,hCG Quali. Comments: Test performed at:[facility] Esvlqixbdp8174 [facility] [place], [place] [address] HCGSQUAL NEGATIVE {Negative} (Normal) Range: 0-9 Nonpreg HCG Qual triggr 4 m[iU]/mL (Normal) 82-Utl-375034:55 Urine Drug Screen (VISTA) Comments: Test performed at:[facility] [address] [place] [address] THC NEGATIVE (Normal) PCP NEGATIVE [...] MUST BE ORDERED SEPARATELY. USE TESTMNEMONIC: [facility] 12-Qkr-257544:05 Alcohol, Blood (Medical)-Serum Comments: Test performed at:[facility] Wfbpvmxifk2842 [facility] [place] [address] SERUM ETOH < 3.0 mg/dL (Normal) Comments: The serum:whole blood ethanol ratio is approximately 1.14and varies slightly with hematocrit.Medical Alcohol reference interval and critical value innon-tolerant individuals; 50 - 100 Impairment 100 Intoxication 100 - 250 Severe Poisoning 250 - 400 Deep/possible fatal coma 30-Txs-042192:05 Basic Metabolic Profile (BMP) Comments: Test performed at:[facility] [address] [place], [place] [address] GAP 9 (Normal) Range: 5-15 CO2 25.0 [...] <126 mg/dLsuggests IMPAIRED HOMEOSTASIS per A.D.A. criteria. 55-Lcj-792207:05 CBC W/Diff, Automated Comments: Test performed at:[facility] [address] [place] [address] Absolute Lymph 2.66 {X10_3/ul} (Normal) Range: [...] :15 Alcohol, Blood (Medical)-Serum Comments: Test performed at:[facility] [address] [place] [address] SERUM ETOH < 3.0 mg/dL (Normal) Comments: The serum:whole blood ethanol ratio is approximately 1.14and varies slightly with hematocrit.Medical Alcohol reference interval and critical value innon-tolerant individuals; 50 - 100 Impairment 100 Intoxication 100 - 250 Severe Poisoning 250 - 400 Deep/possible fatal coma 29-Oct-20141:15 Basic Metabolic Profile (BMP) Comments: Test performed at:[facility] Yrqgoendra4499 [facility]. [place], [place] [address] GAP 6 (Normal) Range: 5-15 CO2 25.0 [...] :15 CBC W/Diff, Automated Comments: Test performed at:[facility] Yddjddqafv6660 [facility] [place] [address] Absolute Lymph 2.65 {X10_3/ul} (Normal) [...] 4.4-11.0 :15 ,Serum,hCG Quali. Comments: Test performed at:[facility] Kjmzalcirq3001 [facility]. [place], [place] [address] HCGSQUAL NEGATIVE {Negative} (Normal) Range: 0-9 Nonpreg HCG Qual triggr 4 m[iU]/mL (Normal) :15 Urine Drug Screen (VISTA) Comments: Test performed at:[facility] [address]idl[address] [place] [address] THC NEGATIVE (Normal) PCP NEGATIVE [...] MUST BE ORDERED SEPARATELY. USE TESTMNEMONIC: UTCA 72-Cts-992364:32 Rapid Flu (11947 x 2) Influenza A Ag Negitive A and B (Normal) 68-Vqp-34428:56 ,Serum,hCG Quali. Comments: Test performed at:[facility] [address] [place] [address] HCGSQUAL NEGATIVE {Negative} (Normal) Range: 0-9 Nonpreg HCG Qual triggr 3 m[iU]/mL (Normal) :01 CBC W/Diff, Automated Comments: Test performed at:[facility] [address] [place] [address] Absolute Lymph 2.32 {X10_3/ul} (Normal) [...] :01 Comprehensive Metabolic Profil Comments: Test performed at:[facility] [address] [place], [place] [id number] GAP 6 (Normal) Range: 5-15 CO2 29.0 [...] 126 mg/dLsuggests DIABETES MELLITUS per A.D.A. criteria. 76-Bjk-30991:01 Prothrombin Time w/INR Comments: Test performed at:[facility] [address] [place] [address] INR 1.1 (Normal) PROTIME 14.7 s (Normal) Range: 11.7-14.9 73-Kfl-675936:36 PT (Prothrobim Time) Comments: PATIENT NOT FASTINGPERFORMED BY: [facility]aeh3118 [facility] [id number] Information: [id number] ([id number]) Prothrombin Time 10.0 {sec} (Normal) Range: 9.1-12.0 INR 0.9 (Normal) Range: 0.8-1.2 Comments: Reference interval is for non-anticoagulated patients. . Suggested INR therapeutic range for Vitamin K anta gonist therapy: Standard Dose (moderate intensity therapeutic range): 2.0 - 3.0 Higher intensity therapeutic range 2.5 - 3.5 0-Caf-097951:20 Basic Metabolic Profile (BMP) Comments: 'TROP' Serial specimen #1, #2, #3, or #4: 1Test performed at:[facility] [address] [place] [address] GAP 4 (Abnormal) Range: 5-15 [...] 7-18 GLU 97 mg/dL (Normal) Range: 70-110 3-Xll-705192:20 CBC W/Diff, Automated Comments: Test performed at:[facility] [address] [place], [place] [address] Absolute Lymph 2.54 {X10_3/ul} (Normal) Range: 0.83-4.51 [...] 4.2-5.4 WBC 9.5 K/mm3 (Normal) Range: 4.4-11.0 2-Nlr-312002:20 Troponin-I Comments: 'TROP' Serial specimen #1, #2, #3, or #4: 1Test performed at:[facility] [address] [place] [address] TROPONIN-I < 0.02 ng/mL (Normal) Comments: TROPONIN-I EXPECTED VALUES <0.05 NEGATIVE 0.06 - 0.59 AT RISK OF TX > OR = 0.60 SUGGEST [place] 51-Gjc-406741:42 PT (Prothrobim Time) Comments: PATIENT NOT FASTINGPERFORMED BY: [place]ology[place] [id number] [facility] [id number] Information: [id number] ([id number]) Prothrombin Time 23.6 {sec} (Abnormal) Range: 9.1-12.0 INR 2.2 (Abnormal) Range: 0.8-1.2 Comments: Reference interval is for non-anticoagulated patients. . Suggested INR therapeutic range for Vitamin K anta gonist therapy: Standard Dose (moderate intensity therapeutic range): 2.0 - 3.0 Higher intensity therapeutic range 2.5 - 3.5 37-Rzi-714215:18 PT (Prothrobim Time) Comments: PATIENT NOT FASTINGPERFORMED BY: [facility]6370 [facility] [id number] Information: [id number] ([id number]) Prothrombin Time 31.8 {sec} (Abnormal) Range: 9.1-12.0 INR 2.9 (Abnormal) Range: 0.8-1.2 Comments: Reference interval is for non-anticoagulated patients. . Suggested INR therapeutic range for Vitamin K anta gonist therapy: Standard Dose (moderate intensity therapeutic range): 2.0 - 3.0 Higher intensity therapeutic range 2.5 - 3.5 :31 PT (Prothrobim Time) Comments: PATIENT NOT FASTINGPERFORMED BY: [facility]6370 [facility] [id number] Information: [id number] (35498) Prothrombin Time 20.7 {sec} (Abnormal) Range: 9.1-12.0 INR 1.9 (Abnormal) Range: 0.8-1.2 Comments: Reference interval is for non-anticoagulated patients. . Suggested INR therapeutic range for Vitamin K anta gonist therapy: Standard Dose (moderate intensity therapeutic range): 2.0 - 3.0 Higher intensity therapeutic range 2.5 - 3.5 :25 PT (Prothrobim Time) Comments: PATIENT NOT FASTINGPERFORMED BY: [facility]6370 [facility] [id number] Information: [id number] ([id number]) Prothrombin Time 13.2 {sec} (Abnormal) Range: 9.1-12.0 INR 1.2 (Normal) Range: 0.8-1.2 Comments: Reference interval is for non-anticoagulated patients. . Suggested INR therapeutic range for Vitamin K anta gonist therapy: Standard Dose (moderate intensity therapeutic range): 2.0 - 3.0 Higher intensity therapeutic range 2.5 - 3.5 :40 PT (Prothrobim Time) Comments: PATIENT NOT FASTINGPERFORMED BY: [facility]6370 [facility] [id number] Information: [id number] ([id number]) Prothrombin Time 14.8 {sec} (Abnormal) Range: 9.1-12.0 INR 1.4 (Abnormal) Range: 0.8-1.2 Comments: Reference interval is for non-anticoagulated patients. . Suggested INR therapeutic range for Vitamin K anta gonist therapy: Standard Dose (moderate intensity therapeutic range): 2.0 - 3.0 Higher intensity therapeutic range 2.5 - 3.5 :39 PT (Prothrobim Time) Comments: PATIENT NOT FASTINGPERFORMED BY: [address] RoadDublin [place] [id number] Information: [id number] ([id number]) Prothrombin Time 11.9 {sec} (Normal) Range: 9.1-12.0 INR 1.1 (Normal) Range: 0.8-1.2 Comments: Reference interval is for non-anticoagulated patients. . Suggested INR therapeutic range for Vitamin K anta gonist therapy: Standard Dose (moderate intensity therapeutic range): 2.0 - 3.0 Higher intensity therapeutic range 2.5 - 3.5 58-Fai-654232:20 PT (Prothrobim Time) Comments: PATIENT NOT FASTINGPERFORMED BY: [place] [id number] [facility] [id number] Information: [id number] ([id number]) Prothrombin Time 31.6 {sec} (Abnormal) Range: 9.1-12.0 INR 2.9 (Abnormal) Range: 0.8-1.2 Comments: Reference interval is for non-anticoagulated patients. . Suggested INR therapeutic range for Vitamin K anta gonist therapy: Standard Dose (moderate intensity therapeutic range): 2.0 - 3.0 Higher intensity therapeutic range 2.5 - 3.5 :31 PT (Prothrobim Time) Comments: PATIENT NOT FASTINGPERFORMED BY: [place] [id number] [facility] [id number] Information: [id number] ([id number]) Prothrombin Time 23.5 {sec} (Abnormal) Range: 9.1-12.0 INR 2.2 (Abnormal) Range: 0.8-1.2 Comments: Reference interval is for non-anticoagulated patients. . Suggested INR therapeutic range for Vitamin K anta gonist therapy: Standard Dose (moderate intensity therapeutic range): 2.0 - 3.0 Higher intensity therapeutic range 2.5 - 3.5 79-Daa-316938:38 PT (Prothrobim Time) Comments: PATIENT NOT FASTINGPERFORMED BY: [place] [id number] [facility] [id number] Information: [id number] ([id number]) Prothrombin Time 22.9 {sec} (Abnormal) Range: 9.1-12.0 INR 2.1 (Abnormal) Range: 0.8-1.2 Comments: Reference interval is for non-anticoagulated patients. . Suggested INR therapeutic range for Vitamin K anta gonist therapy: Standard Dose (moderate intensity therapeutic range): 2.0 - 3.0 Higher intensity therapeutic range 2.5 - 3.5 :16 PT (Prothrobim Time) Comments: PATIENT NOT FASTINGPERFORMED BY: [place] [address]370 [facility] [id number] Information: [id number] ([id number]) Prothrombin Time 36.6 {sec} (Abnormal) Range: 9.1-12.0 INR 3.3 (Abnormal) Range: 0.8-1.2 Comments: Reference interval is for non-anticoagulated patients. . Suggested INR therapeutic range for Vitamin K anta gonist therapy: Standard Dose (moderate intensity therapeutic range): 2.0 - 3.0 Higher intensity therapeutic range 2.5 - 3.5 :14 PT (Prothrobim Time) Comments: PATIENT NOT FASTINGPERFORMED BY: [facility]6370 [facility] [id number] Information: [id number] ([id number]) Prothrombin Time 28.3 {sec} (Abnormal) Range: 9.1-12.0 INR 2.7 (Abnormal) Range: 0.8-1.2 Comments: Reference interval is for non-anticoagulated patients. . Suggested INR therapeutic range for Vitamin K anta gonist therapy: Standard Dose (moderate intensity therapeutic range): 2.0 - 3.0 Higher intensity therapeutic range 2.5 - 3.5 :13 HgA1C , Office (63216) HgA1C , Office 5.9 % (Normal) Range: 4.6 - 7.1 :13 Blood Glucose , Office (09367) Blood Glucose , Office 144 (Normal) :54 PT (Prothrobim Time) Comments: STANDING ORDER; PATIENT NOT FASTINGPERFORMED BY: [facility]6370 [facility] [id number] Information: [id number] ([id number]) Prothrombin Time 31.0 {sec} (Abnormal) Range: 9.1-12.0 INR 3.0 (Abnormal) Range: 0.8-1.2 Comments: Reference interval is for non-anticoagulated patients. . Suggested INR therapeutic range for Vitamin K anta gonist therapy: Standard Dose (moderate intensity therapeutic range): 2.0 - 3.0 Higher intensity therapeutic range 2.5 - 3.5 38-Zha-781696:13 PT (Prothrobim Time) Comments: PATIENT NOT FASTINGPERFORMED BY: [facility]6370 [facility] [id number] Information: [id number] ([id number]) Prothrombin Time 29.0 {sec} (Abnormal) Range: 9.1-12.0 INR 2.8 (Abnormal) Range: 0.8-1.2 Comments: Reference interval is for non-anticoagulated patients. . Suggested INR therapeutic range for Vitamin K anta gonist therapy: Standard Dose (moderate intensity therapeutic range): 2.0 - 3.0 Higher intensity therapeutic range 2.5 - 3.5 :57 PT (Prothrobim Time) Comments: PATIENT NOT FASTINGPERFORMED BY: [place] [id number] [facility] [id number] Information: [id number] ([id number]) Prothrombin Time 42.7 {sec} (Abnormal) Range: 9.1-12.0 INR 4.1 (Abnormal) Range: 0.8-1.2 Comments: Client Requested Flag Reference interval is for non- anticoagulated patients. . Suggested INR therapeutic ra nge for Vitamin K antagonist therapy: Standard Dose (moderate intensity therapeutic range): 2.0 - 3.0 Higher intensity therapeutic range 2.5 - 3.5 :00 PT (Prothrobim Time) Comments: PATIENT NOT FASTINGPERFORMED BY: [facility]6370 [facility] [id number] Information: [id number] ([id number]) Prothrombin Time 13.4 {sec} (Abnormal) Range: 9.1-12.0 INR 1.3 (Abnormal) Range: 0.8-1.2 Comments: Reference interval is for non-anticoagulated patients. . Suggested INR therapeutic range for Vitamin K anta gonist therapy: Standard Dose (moderate intensity therapeutic range): 2.0 - 3.0 Higher intensity therapeutic range 2.5 - 3.5 :43 PT (Prothrobim Time) Comments: PATIENT NOT FASTINGPERFORMED BY: [place] [id number] [facility] [id number] Information: [id number] ([id number]) Prothrombin Time 18.4 {sec} (Abnormal) Range: 9.1-12.0 INR 1.8 (Abnormal) Range: 0.8-1.2 Comments: Reference interval is for non-anticoagulated patients. . Suggested INR therapeutic range for Vitamin K anta gonist therapy: Standard Dose (moderate intensity therapeutic range): 2.0 - 3.0 Higher intensity therapeutic range 2.5 - 3.5 :31 PT (Prothrobim Time) Comments: PATIENT NOT FASTINGPERFORMED BY: [facility]6370 [facility] [id number] Information: [id number] ([id number]) Prothrombin Time 19.8 {sec} (Abnormal) Range: 9.1-12.0 INR 1.9 (Abnormal) Range: 0.8-1.2 Comments: Reference interval is for non-anticoagulated patients. . Suggested INR therapeutic range for Vitamin K anta gonist therapy: Standard Dose (moderate intensity therapeutic range): 2.0 - 3.0 Higher intensity therapeutic range 2.5 - 3.5 :15 PT (Prothrobim Time) Comments: PATIENT NOT FASTINGPERFORMED BY: [facility]6370 [facility] [id number] Information: [id number] ([id number]) Prothrombin Time 22.4 {sec} (Abnormal) Range: 9.1-12.0 INR 2.2 (Abnormal) Range: 0.8-1.2 Comments: Reference interval is for non-anticoagulated patients. . Suggested INR therapeutic range for Vitamin K anta gonist therapy: Standard Dose (moderate intensity therapeutic range): 2.0 - 3.0 Higher intensity therapeutic range 2.5 - 3.5 :40 PT (Prothrobim Time) Comments: STANDING ORDER; PATIENT NOT FASTINGPERFORMED BY: [facility]6370 [facility] [id number] Information: [id number] ([id number]) Prothrombin Time 22.1 {sec} (Abnormal) Range: 9.1-12.0 INR 2.1 (Abnormal) Range: 0.8-1.2 Comments: Reference interval is for non-anticoagulated patients. . Suggested INR therapeutic range for Vitamin K anta gonist therapy: Standard Dose (moderate intensity therapeutic range): 2.0 - 3.0 Higher intensity therapeutic range 2.5 - 3.5 :04 PT (Prothrobim Time) Comments: PATIENT NOT FASTINGPERFORMED BY: [place] [id number] [facility] [id number] Information: [id number] ([id number]) Prothrombin Time 41.7 {sec} (Abnormal) Range: 9.1-12.0 INR 4.0 (Abnormal) Range: 0.8-1.2 Comments: Client Requested Flag Reference interval is for non- anticoagulated patients. . Suggested INR therapeutic ra nge for Vitamin K antagonist therapy: Standard Dose (moderate intensity therapeutic range): 2.0 - 3.0 Higher intensity therapeutic range 2.5 - 3.5 :27 PT (Prothrobim Time) Comments: STANDING ORDER; PATIENT NOT FASTINGPERFORMED BY: [facility]6370 [facility] [id number] Information: [id number] ([id number]) Prothrombin Time 34.2 {sec} (Abnormal) Range: 9.1-12.0 INR 3.3 (Abnormal) Range: 0.8-1.2 Comments: Reference interval is for non-anticoagulated patients. . Suggested INR therapeutic range for Vitamin K anta gonist therapy: Standard Dose (moderate intensity therapeutic range): 2.0 - 3.0 Higher intensity therapeutic range 2.5 - 3.5 :36 Prothrombin Time (PT) Comments: PATIENT WAS FASTINGPERFORMED BY: [facility]6[address] [facility] [id number] Prothrombin Time 28.4 {sec} (Abnormal) Range: 9.1-12.0 INR 2.7 (Abnormal) Range: 0.8-1.2 Comments: Reference interval is for non-anticoagulated patients. . Suggested INR therapeutic range for Vitamin K anta gonist therapy: Standard Dose (moderate intensity therapeutic range): 2.0 - 3.0 Higher intensity therapeutic range 2.5 - 3.5 :15 PT (Prothrobim Time) Comments: STANDING ORDER; PATIENT NOT FASTINGPERFORMED BY: [place] [id number] [facility] [id number] Information: [id number] ([id number]) Prothrombin Time 40.5 {sec} (Abnormal) Range: 9.1-12.0 INR 3.9 (Abnormal) Range: 0.8-1.2 Comments: Client Requested Flag Reference interval is for non- anticoagulated patients. . Suggested INR therapeutic ra nge for Vitamin K antagonist therapy: Standard Dose (moderate intensity therapeutic range): 2.0 - 3.0 Higher intensity therapeutic range 2.5 - 3.5 :48 PT (Prothrobim Time) Comments: STANDING ORDER; PATIENT NOT FASTINGPERFORMED BY: [facility]6[address] [facility] [id number] Information: [id number] ([id number]) Prothrombin Time 28.8 {sec} (Abnormal) Range: 9.1-12.0 INR 2.8 (Abnormal) Range: 0.8-1.2 Comments: Reference interval is for non-anticoagulated patients. . Suggested INR therapeutic range for Vitamin K anta gonist therapy: Standard Dose (moderate intensity therapeutic range): 2.0 - 3.0 Higher intensity therapeutic range 2.5 - 3.5 :29 PT (Prothrobim Time) Comments: STANDING ORDER; PATIENT NOT FASTINGPERFORMED BY: [place] [id number] [facility] [id number] Information: [id number] ([id number]) Prothrombin Time 14.0 {sec} (Abnormal) Range: 9.1-12.0 INR 1.3 (Abnormal) Range: 0.8-1.2 Comments: Reference interval is for non-anticoagulated patients. . Suggested INR therapeutic range for Vitamin K anta gonist therapy: Standard Dose (moderate intensity therapeutic range): 2.0 - 3.0 Higher intensity therapeutic range 2.5 - 3.5 :14 PT (Prothrobim Time) (85049) Comments: Order Date: 02/20/13OV Order #: [id number] ID: [id number]: 453.42 - DVT (453.42) INR 2.6 (Normal) PTP 26.2 s (Abnormal) Range: 11.9-14.4 :48 PT (Prothrobim Time) Comments: STANDING ORDER; PATIENT NOT FASTINGPERFORMED BY: [employer] Fsencl1673 [facility] [id number] Information: [id number] ([id number]) Prothrombin Time 25.7 {sec} (Abnormal) Range: 9.1-12.0 INR 2.5 (Abnormal) Range: 0.8-1.2 Comments: Reference interval is for non-anticoagulated patients. . Suggested INR therapeutic range for Vitamin K anta gonist therapy: Standard Dose (moderate intensity therapeutic range): 2.0 - 3.0 Higher intensity therapeutic range 2.5 - 3.5 7-Kdu-485815:40 Urinalysis, Office (37915) UA - BILIRUBIN Negative (Normal) UA - [...] (Prothrobim Time) Comments: PATIENT NOT FASTINGPERFORMED BY: [employer]70 [facility] [id number] Information: [id number] ([id number]) Prothrombin Time 39.8 {sec} (Abnormal) Range: 9.1-12.0 INR 3.8 (Abnormal) Range: 0.8-1.2 Comments: Client Requested Flag Reference interval is for non- anticoagulated patients. . Suggested INR therapeutic ra nge for Vitamin K antagonist therapy: Standard Dose (moderate intensity therapeutic range): 2.0 - 3.0 Higher intensity therapeutic range 2.5 - 3.5 68-Fkp-205962:34 Aerobic Bacterial Culture Comments: PERFORMED BY: [address] [id number] Information: SRC: Result 1 Mixed skin irais (Normal) Aerobic Bacterial Culture Final report (Normal) 07-Qka-926467:31 Metabolic Panel, Basic Comments: PATIENT NOT FASTINGPERFORMED BY: [place] [address] [facility] [id number] Information: [id number] ([id number]) Calcium, Serum 9.3 mg/dL (Normal) Range: 8.7-10.2 [...] Glucose, Serum 95 mg/dL (Normal) Range: 65-99 8-Yqr-155461:28 PT (Prothrobim Time) Comments: PATIENT NOT FASTINGPERFORMED BY: [place] [address]908[address] [facility] [id number] Information: [id number] ([id number]) Prothrombin Time 42.0 {sec} (Abnormal) Range: 9.1-12.0 INR 4.1 (Abnormal) Range: 0.8-1.2 Comments: Client Requested Flag Reference interval is for non- anticoagulated patients. . Suggested INR therapeutic ra nge for Vitamin K antagonist therapy: Standard Dose (moderate intensity therapeutic range): 2.0 - 3.0 Higher intensity therapeutic range 2.5 - 3.5 18-Cjj-059639:42 PT INR 2.2 (Normal) PTP 23.1 s (Abnormal) Range: 11.9-14.4 42-Sac-854617:00 PT (Prothrobim Time) Comments: PATIENT NOT FASTINGPERFORMED BY: [address] [id number] Information: [id number] ([id number]) Prothrombin Time 34.7 {sec} (Abnormal) Range: 9.1-12.0 INR 3.3 (Abnormal) Range: 0.8-1.2 Comments: Reference interval is for non-anticoagulated patients. . Suggested INR therapeutic range for Vitamin K anta gonist therapy: Standard Dose (moderate intensity therapeutic range): 2.0 - 3.0 Higher intensity therapeutic range 2.5 - 3.5 :09 PT (Prothrobim Time) Comments: PATIENT NOT FASTINGPERFORMED BY: [place] [id number] [facility] [id number] Information: [id number] ([id number]) Prothrombin Time 23.6 {sec} (Abnormal) Range: 9.1-12.0 INR 2.3 (Abnormal) Range: 0.8-1.2 Comments: Reference interval is for non-anticoagulated patients. . Suggested INR therapeutic range for Vitamin K anta gonist therapy: Standard Dose (moderate intensity therapeutic range): 2.0 - 3.0 Higher intensity therapeutic range 2.5 - 3.5 23-Hlx-715630:25 PT (Prothrobim Time) Comments: PATIENT NOT FASTINGPERFORMED BY: [facility]6370 [facility] [id number] Information: [id number] ([id number]) Prothrombin Time 11.9 {sec} (Normal) Range: 9.1-12.0 INR 1.1 (Normal) Range: 0.8-1.2 Comments: Reference interval is for non-anticoagulated patients. . Suggested INR therapeutic range for Vitamin K anta gonist therapy: Standard Dose (moderate intensity therapeutic range): 2.0 - 3.0 Higher intensity therapeutic range 2.5 - 3.5 00-Nfv-94211:39 AORTA Radiology Report See Note (Normal) Comments: [...] Adame M.D.November 22, 2012 at 9:42:03 AM [id number] Signed GP/GP If you are the referring physician and would like to consult with theradiologist who provided this interpretation , please contact Anoop Dumont at [phone]. If this radiologist is unavailable, youwill be directed to another radiologist to assist. If you are a patient with a question regarding this re port, pleasecontactyour referring physician directly. Professional Interpretation Provided By: [employer], Phone , These documents contain legally protected [...] 11/22/1246 Sign by: ____ Jaxon Adame MD 56-Bvk-106320:11 PT (Prothrobim Time) (94468) Comments: PATIENT NOT FASTINGPERFORMED BY: [facility] InstituteGhzpcm7723 [facility] [id number] Prothrombin Time 14.9 {sec} (Abnormal) Range: 9.1-12.0 INR 1.4 (Abnormal) Range: 0.8-1.2 Comments: Reference interval is for non-anticoagulated patients. . Suggested INR therapeutic range for Vitamin K anta gonist therapy: Standard Dose (moderate intensity therapeutic range): 2.0 - 3.0 Higher intensity therapeutic range 2.5 - 3.5 51-Bym-77856:37 BRAIN W/WO CONTRAST Radiology Report See Note [...] Maki M.D.October 17, 2012 at 11:30:50 PM [id number] Signed AH/AH If you are the referring physician and would like to consult with theradiologist who provided this interpretation, please contact Fidelia alejandra M.D. at . If this radiologist is unavailable,you will be directed to another radiologist to assist. If you are a patient with a question regarding this report, pleasecontactyour referr ing physician directly. Professional Interpretation Provided By: [employer], Phone , These documents contain legally protected [...] on 10/17/122337 Sign by: DEANGELO MAKI MD 0-Hgm-688932:27 HgA1C , Office (39273) HgA1C , Office 5.8 % (Normal) Range: 4.6 - 7.1 4-Fcj-641552:23 PELVIC (NON ) Radiology Report See Note [...] Adame M.D.October 03, 2012 at 3:27:29 PM [id number] Signed GP/GP If you are the referring physician and would li ke to consult with theradiologist who provided this interpretation, please contact Anoop Dumont at [phone]. If this radiologist is unavailable, youwill be directed to another radiologist to assist. If you are a patient with a question regarding this report, pleasecontactyour referring physician directly. Professional Interpretation Provided By: [employer], Phone ,Fax These documents contain legally protected [...] Adame M.D.October 03, 2012 at 3:27:29 PM [phone] Signed GP/GP If you are the referring physician and would li ke to consult with theradiologist who provided this interpretation, please contact Anoop Dumont at [phone]. If this radiologist is unavailable, youwill be directed to another radiologist to assist. If you are a patient with a question regarding this report, pleasecontactyour referring physician directly. Professional Interpretation Provided By: [employer], Phone ,Fax These documents contain legally protected [...] Mayberry M.D.September 30, 2012 at 7:30:49 PM [phone] Sig vadim TT/TT If you are the referring physician and would like to consult with theradiologist who provided this interpretation, please contact Kym Foley M.D. at [phone]. If this radiologist is unavailable, youwillbe directed to another radiologist to assist. If you are a patient with a question regarding this report, pleasecontactyour referring physician directly. Professional Interpretation Provided By: [employer], Phone , These documents contain legally protected [...] on 09/30/121938 Sign by: Kym Mayberry MD 87-Mkd-736163:49 PT (Prothrobim Time) Comments: PATIENT NOT FASTINGPERFORMED BY: [facility]CoCar[facility] Ting[facility] HospitalQszzia2443 [facility] [id number] Information: [id number] ([id number]) Prothrombin Time 14.2 {sec} (Abnormal) Range: 9.1-12.0 INR 1.4 (Abnormal) Range: 0.8-1.2 Comments: Reference interval is for non-anticoagulated patients. . Suggested INR therapeutic range for Vitamin K anta gonist therapy: Standard Dose (moderate intensity therapeutic range): 2.0 - 3.0 Higher intensity therapeutic range 2.5 - 3.5 2-Knd-037222:22 PT (Prothrobim Time) Comments: PATIENT NOT FASTINGPERFORMED BY: [facility]6[address] [facility] [id number] Information: [id number] (64559) Prothrombin Time 30.3 {sec} (Abnormal) Range: 9.1-12.0 INR 3.0 (Abnormal) Range: 0.8-1.2 Comments: Reference interval is for non-anticoagulated patients. . Suggested INR therapeutic range for Vitamin K anta gonist therapy: Standard Dose (moderate intensity therapeutic range): 2.0 - 3.0 Higher intensity therapeutic range 2.5 - 3.5 :01 PTT (ACTIVATED PARTIAL Comments: PATIENT NOT FASTINGPERFORMED BY: [facility]6[address] [facility] [id number] THROMBOPLASTIN TIME) (95048) aPTT 46 {sec} (Abnormal) Range: 24-33 Comments: This test has not been validated for monitoring unfractionated heparintherapy. aPTT-based therapeutic ranges for unfractionated heparintherapy have not been established. For general guidelines onHeparin monitoring, refer to the [facility] Directory of Services. :01 PT (PROTHROMBIN TIME) (76160) Comments: PATIENT NOT FASTINGPERFORMED BY: [facility]6[address] [facility] [id number] Prothrombin Time 33.5 {sec} (Abnormal) Range: 9.1-12.0 INR 3.3 (Abnormal) Range: 0.8-1.2 Comments: Reference interval is for non-anticoagulated patients. . Suggested INR therapeutic range for Vitamin K anta gonist therapy: Standard Dose (moderate intensity therapeutic range): 2.0 - 3.0 Higher intensity therapeutic range 2.5 - 3.5 : PROLACTIN (21945) Comments: PATIENT NOT FASTINGPERFORMED BY: [facility]JFK [facility] InstituteYdfuzq6673 [facility] [id number] Prolactin 26.7 ng/mL (Abnormal) Range: 4.8-23.3 :01 METABOLIC PANEL, Comments: PATIENT NOT FASTINGPERFORMED BY: [facility]CoJFK [facility] InstituteFakuno8394 [facility] [id number] Information: [id number] COMPREHENSIVE (28610) ALT (SGPT) 34 [iU]/L (Abnormal) Range: 0-32 [...] 107 mg/dL (Abnormal) Range: 65-99 :01 TSH (25575) Comments: PATIENT NOT FASTINGPERFORMED BY: [place] [address]908[address] [facility] [id number] TSH 3.350 {uIU/mL} (Normal) Range: 0.450-4.500 :01 CBC (AUTO) (67971) Comments: PATIENT NOT FASTINGPERFORMED BY: [address] [id number] Platelets 235 {x10E3/uL} (Normal) Range: 140-415 RDW 13.7 % (Normal) Range: 12.3-15.4 MCHC 32.4 g/dL (Normal) Range: 31.5-35.7 MCH 29.8 pg (Normal) Range: 26.6-33.0 MCV 92 fL (Normal) Range: 79-97 Hematocrit 39.5 % (Normal) Range: 34.0-46.6 Hemoglobin 12.8 g/dL (Normal) Range: 11.1-15.9 RBC 4.30 {x10E6/uL} (Normal) Range: 3.77-5.28 WBC 5.4 {x10E3/uL} (Normal) Range: 4.0-10.5 :01 TEST - SERUM Comments: PATIENT NOT FASTINGPERFORMED BY: [address] [id number] QUANTITATIVE (HCG) (34501) hCG,Beta Subunit,Qual,Serum Negative m[iU]/mL (Normal) 62-Kda-739669:40 Prothrombin Time (PT) Comments: PERFORMED BY: [address] [id number] Prothrombin Time 23.2 {sec} (Abnormal) Range: 9.1-12.0 INR 2.2 (Abnormal) Range: 0.8-1.2 Comments: Reference interval is for non-anticoagulated patients. . Suggested INR therapeutic range for Vitamin K anta gonist therapy: Standard Dose (moderate intensity therapeutic range): 2.0 - 3.0 Higher intensity therapeutic range 2.5 - 3.5 1-Tfe-035348:02 PT (Prothrobim Time) Comments: PATIENT NOT FASTINGPERFORMED BY: [address] StreetDublin [place] [id number] Information: [id number] (07383) Prothrombin Time 42.1 {sec} (Abnormal) Range: 9.1-12.0 INR 4.1 (Abnormal) Range: 0.8-1.2 Comments: Client Requested Flag Reference interval is for non- anticoagulated patients. . Suggested INR therapeutic ra nge for Vitamin K antagonist therapy: Standard Dose (moderate intensity therapeutic range): 2.0 - 3.0 Higher intensity therapeutic range 2.5 - 3.5 86-Zyj-349402:23 PT (Prothrobim Time) Comments: PATIENT NOT FASTINGPERFORMED BY: [place] [id number] [facility] [id number] Information: [id number] (89521) Prothrombin Time 13.8 {sec} (Abnormal) Range: 9.1-12.0 INR 1.3 (Abnormal) Range: 0.8-1.2 Comments: Reference interval is for non-anticoagulated patients. . Suggested INR therapeutic range for Vitamin K anta gonist therapy: Standard Dose (moderate intensity therapeutic range): 2.0 - 3.0 Higher intensity therapeutic range 2.5 - 3.5 05-Qwx-767267:29 PT (Prothrobim Time) Comments: PATIENT NOT FASTINGPERFORMED BY: [place] [id number] [facility] [id number] Information: [id number] (83986) Prothrombin Time 13.1 {sec} (Abnormal) Range: 9.1-12.0 INR 1.2 (Normal) Range: 0.8-1.2 Comments: Reference interval is for non-anticoagulated patients. . Suggested INR therapeutic range for Vitamin K anta gonist therapy: Standard Dose (moderate intensity therapeutic range): 2.0 - 3.0 Higher intensity therapeutic range 2.5 - 3.5 38-Ood-146175:10 PT (Prothrobim Time) Comments: PATIENT NOT FASTINGPERFORMED BY: [place] [id number] [facility] [id number] Information: [id number] (15563) Prothrombin Time 15.3 {sec} (Abnormal) Range: 9.1-12.0 INR 1.5 (Abnormal) Range: 0.8-1.2 Comments: Reference interval is for non-anticoagulated patients. . Suggested INR therapeutic range for Vitamin K anta gonist therapy: Standard Dose (moderate intensity therapeutic range): 2.0 - 3.0 Higher intensity therapeutic range 2.5 - 3.5 :30 Rapid Flu (31181 x 2) Influenza A Ag negative (Normal) :45 PT (Prothrobim Time) Comments: PATIENT NOT FASTINGPERFORMED BY: [address] [id number] Information: [id number] (53356) Prothrombin Time 16.4 {sec} (Abnormal) Range: 9.1-12.0 INR 1.6 (Abnormal) Range: 0.8-1.2 Comments: Reference interval is for non-anticoagulated patients. . Suggested INR therapeutic range for Vitamin K anta gonist therapy: Standard Dose (moderate intensity therapeutic range): 2.0 - 3.0 Higher intensity therapeutic range 2.5 - 3.5 :32 PT (Prothrobim Time) Comments: PATIENT NOT FASTINGPERFORMED BY: [address] [id number] Information: [id number] ([id number]) Prothrombin Time 21.6 {sec} (Abnormal) Range: 9.1-12.0 INR 2.1 (Abnormal) Range: 0.8-1.2 Comments: Reference interval is for non-anticoagulated patients. . Suggested INR therapeutic range for Vitamin K anta gonist therapy: Standard Dose (moderate intensity therapeutic range): 2.0 - 3.0 Higher intensity therapeutic range 2.5 - 3.5 :58 Prothrombin Time (PT) Comments: PERFORMED BY: [address] [id number] Prothrombin Time 15.6 {sec} (Abnormal) Range: 9.1-12.0 INR 1.5 (Abnormal) Range: 0.8-1.2 Comments: Reference interval is for non-anticoagulated patients. . Suggested INR therapeutic range for Vitamin K anta gonist therapy: Standard Dose (moderate intensity therapeutic range): 2.0 - 3.0 Higher intensity therapeutic range 2.5 - 3.5 58-Xvb-595207:28 PT INR 2.2 (Normal) PTP 22.4 s [...] 200-240 mg/dL Borderline >240 mg/dL High Risk 50-Cuo-852743:19 PT INR 2.1 (Normal) PTP 21.7 s [...] MIXED GRAM POSITIVE ORGANISMS :07 Urinalysis, Office (04753) UA - BILIRUBIN Negative (Normal) UA - BLOOD Negative (Normal) UA - GLUCOSE Negative (Normal) UA - KETONES Negative mg/dL (Normal) UA - LEUKOCYTE ESTERASE Small (Normal) UA - NITRITE Negative (Normal) UA - PH 6.5 (Normal) UA - PROTEIN Negative mg/dL (Normal) UA - SPECIFIC GRAVITY 1.010 (Normal) URINE UROBILINGN DENISE TIMED Normal mg/dL (Normal) 33-Iod-850346:52 PT INR 1.6 (Normal) PTP 18.2 s (Abnormal) Range: 11.9-14.4 03-Eiv-447595:12 PT INR 1.1 (Normal) PTP 13.6 s (Normal) Range: 11.9-14.4 52-Ged-62659:01 GALLBLADDER Radiology Report See Note (Normal) Comments: [...] size of the right kidney. The right luyafgvudtfrrh39.5 cm. Normal renal cortex. The renal co rtex measures 1.4 cm. Thereisno demonstrated renal mass or cyst. There are no demonstrated renalcalculi. There is no hydronephrosis. There is no ascites. IMPRESSION:Cholelithiasis.Fatty infiltration of the liver. To consult with a radiologist regarding this report, please call our 80U3wsupbua line @ Dictated on 09/25/11 0903 by Leatha LEON,Jessicaranscribed on 09/25/11 1014 by ITS IMPORTSign by Leatha LEON,Jaxon on 09/25/11 1015 Sign by: Jaxon Adame MD HPYL < 0.9 U/mL Range: 0.0-0.8 28:52 (Normal) Comments: Negative <0.9 Indeterminate 0.9 - 1.0 Positive >1.0Performed at: [facility] Lab[address] [id number] Director: Chloé Mccarthy MD, Phone: [phone] :22 PT INR 2.0 (Normal) PTP 21.8 [...] Comments: inr; PATIENT NOT FASTINGPERFORMED BY: [facility] Mgqnxn1635 [facility] [id number] Information: [id number] (94645) Prothrombin Time 16.3 {sec} (Abnormal) Range: 9.1-12.0 [...] Report See Note (Normal) Comments: Exam Number: [id number] he patient is a 40-year-old female with [...] - 222. 3Postmenopausal 0.1 - 0.8Performed at: [facility] [address] [id number] Director: Chloé Mccarthy MD, Phone: [phone] :45 PRO TIME INR 3.3 (Normal) PROTIME 34.2 s (Abnormal) Range: 9.1-11.7 92-Kzt-248397:26 PT (Prothrobim Time) Comments: PATIENT NOT FASTINGPERFORMED BY: [facility] [address] [id number] Information: [id number] (88109) Prothrombin Time 41.4 {sec} (Abnormal) Range: 9.1-12.0 INR 4.0 (Abnormal) Range: 0.8-1.2 Comments: Client Requested Flag Reference interval is for non- anticoagulated patients. . Suggested INR therapeutic ra nge for Vitamin K antagonist therapy: Standard Dose (moderate intensity therapeutic range): 2.0 - 3.0 Higher intensity therapeutic range 2.5 - 3.5 7-Umc-998133:51 CHEST, PA AND LATERAL (MT) Radiology Report See Note (Normal) Comments: Exam Number: [id number] CHEST PA AND LATERAL PA and lateral [...] abnormality is seen. Reported By: JAXON ADAME 2-Jae-216239:49 Influenza B Ag (53052) Comments: neg Influenza A Ag negative (Normal) 3-Ilc-201919:49 Influenza A Ag (37016) Comments: neg Influenza A Ag negative (Normal) 13-Gas-965231:56 PRO TIME INR 2.0 (Normal) PROTIME 20.8 s (Abnormal) Range: 9.1-11.7 5-Mop-673573:47 CHEST WITH CONTRAST Radiology Report See Note (Normal) Comments: Exam Number: [id number] CT SCAN OF THE CHEST WITH CONTRAST [...] 4.2-5.4 WBC 7.1 K/mm3 (Normal) Range: 4.4-11.0 0-Bhv-596846:11 PRO TIME INR 1.7 (Normal) PROTIME 17.2 s (Abnormal) Range: 9.1-11.7 63-Mjj-215893:00 PRO TIME INR 2.2 (Normal) PROTIME 24.2 s (Abnormal) Range: 9.1-11.7 42-Duw-979840:58 PRO TIME INR 1.8 (Normal) PROTIME 19.8 s (Abnormal) Range: 9.1-11.7 14-Bpa-792169:55 REYNALDO-D [id number] Comments: FAX PT RESULTS REYNALDO-DIRECT SeeNote (Normal) Comments: Result: Negative :55 AT3 FUNCT 91742 103 % (Normal) Comments: FAX PT RESULTS Range: 75-135 Comments: Performed At: [facility] Xgdwncxoxq1536 DEMETRA Pimentel [id number] At: [facility] [id number] Evan LarsonDEMETRA [id number] At: [facility] Thqnxh3121 [place], [place] [phone] :55 C-REACTIVE PROT 11.40 mg/L (Abnormal) Comments: [...] T PROT 7.5 g/dL (Normal) Range: 6.4-8.2 66-Qff-188742:55 COMPLETE UA Comments: FAX PT RESULTS BACTERIA [...] 10 mm/h (Normal) Range: 0-20 :55 FACVL 699145 Comments: FAX PT RESULTS COMMENT Comment (Normal) Comments: Genetic counselors are available for health care providers to discuss results at [phone]. .Methodology:DNA analysis of the Factor V gene [...] in the workup for venous thrombosis include ngeW85521T mutation in the factor II (prothrombin) gene,protein [...] mg/dL VLDL 26 mg/dL (Normal) Range: 5-40 75-Azk-073782:55 LUPUS [id number] Comments: FAX PT RESULTS DILUTE PT (dPT) [...] UR CREAT 115.7 mg/dL (Normal) :55 MTHFR [id number] Comments: FAX PT RESULTS COMMENT Comment (Normal) Comments: Genetic counselors are available to discuss these results with health care providers at [phone] .The MTHFR enzyme is responsible for creating the circulatingform of folate. Folate is important in homocysteine regula-tion. Defects in the MTHFR enzyme can indirectly causeelevated homocysteine levels. The C677T mutation in theMTH FR gene can cause elevated homocysteine levels in israel-viduals with insufficient folate, particularly when thereare two mutations present. The O2219T mutation has not beenassociated with elevated homoc ysteine levels unless a R425Friipiobb is also present. Elevated serum homocysteine levelshave [...] f or the most accurateinterpretation. . MTHFR [id number] Comment (Normal) Comments: Result: O4341Y/E0549RFky copies of the same mutation (D8206V/R5415C) identified .Interpretation: .This patient's sample was analyzed for the MTHFR mvicyhhipM538K and U9950X. Two copies of the Z7847S mutation wereidentified. Results for the C677T mutation were negative.Elevated homocyste ine levels have not been reported when twocopies of the Z2079J mutation have been found. The diagnosisof hyperhomocysteinemia can not rely on DNA testing alonebut should take into consideration clinical findings andother studies, such as serum homocysteine levels. BecauseMTHFR mutations and their associated risks are inherited,genetic counseling and testing of at-risk family membersshould be consider ed. . 06-Lym-074916:55 PRO TIME Comments: FAX PT RESULTS INR 2.2 (Normal) PROTIME 24.2 s (Abnormal) Range: 9.1-11.7 12-Gut-053752:55 PROT C 273585 Comments: FAX PT RESULTS PROT C,[id number] 11 % (Abnormal) Range: 74-151 Comments: A [...] fluorouracil canalso reduce PC levels. PROTEIN C 71101 50 % (Abnormal) Range: 70-140 Comments: A [...] L-asparaginse or fluorouracil canalso reduce PC levels. 21-Rvy-244053:55 PROT S 167242 Comments: FAX PT RESULTS PROTEIN S, FREE [...] the PS in blood is bound to K4s-fflztghwigufml (C4b-BP). C4b-BP is and acute phase reactant whoseconcentration increases rapidly due to inflammatoryconditions. This serves to increase bound PS antigen andproduces a relative decrease of free PS antigen and PSactivit y. Conditions that can cause an increase in N4g-PUbjrlfk include: , oral contraceptive use,diabetes mellitus, systemic [...] the PS in blood is bound to M7s-fstuvacumtufxo (C4b-BP). C4b-BP is and acute phase reactant whoseconcentration increases rapidly due to inflammatoryconditions. This serves to increase bound PS antigen andproduces a relative decrease of free PS antigen and PSactivit y. Conditions that can cause an increase in Z7y-IAdhjezy include: , oral contraceptive use,diabetes mellitus, systemic lupus erythematosus, AIDS andrenal allograft rejection. PROTEIN S,TOTAL 73 % (Normal) Range: 58-150 RHEUMATOID FAC < 10 {IU/mL} (Normal) Comments: FAX PT RESULTS 2:55 TSH 2.52 {uIU/mL} Comments: FAX PT RESULTS 2:55 (Normal) Range: 0.358-3.74 VITAMIN B12 622 pg/mL (Normal) Comments: FAX PT RESULTS 2:55 Range: 254-1320 99-Whg-992673:57 PRO TIME INR 2.3 (Normal) PROTIME 25.4 [...] s (Abnormal) Range: 9.1-11.7 :35 PT/INR, Office (15495) INR 1.8 (Normal) :46 PT/INR, Office (85901) Comments: done BC INR 2.6 (Normal) :54 PT/INR, Office (05188) INR 1.2 (Normal) :00 CBCD,SMEAR DIFF ATYPICAL [...] T PROT 7.3 g/dL (Normal) Range: 6.4-8.2 82-Uao-093806:00 LIPID CHOL 176 mg/dL (Normal) Comments: <200 [...] mg/dL VLDL 25 mg/dL (Normal) Range: 5-40 53-Ied-332453:00 TSH 2.00 {uIU/mL} (Normal) Range: 0.358-3.74 20-Dnx-095685:41 PT/INR, Office (25563) Comments: done>Wf. INR 1.6 (Normal) :56 PRO TIME INR 2.2 (Normal) PROTIME 24.4 s (Abnormal) Range: 9.1-11.7 :25 PT/INR, Office (54213) INR 2.8 (Normal) :40 PT/INR, Office (27483) INR 3.5 (Normal) :42 PT/INR, Office (01683) INR 3.5 (Normal) :38 CBCD,SMEAR DIFF BAND [...] Abnormal CT of the abdomen : Reviewed Tire Layer Letter Indication: Abnormal CT of the abdomen [...] of breath Shortness of breath : Reviewed Tire Layer Letter Indication: Shortness of breath Deep vein [...] BMI 50.0-59.9, adult Sinusitis, bacterial : Reviewed Tire Layer Letter Indication: Sinusitis, bacterial External otitis of both ears due to fungus : Eprescribed prescriptions (G8553) Indication: External otitis of both ears due to fungus Diastolic dysfunction : Continue Current Prescription(s) Indication: Diastolic dysfunction Diastolic dysfunction : Reviewed Tire Layer Letter Indication: Diastolic dysfunction Nonsmoker : Eprescribed [...] Sleep disturbance Cardiac arrhythmia, unspecified : Reviewed Tire Layer Letter Indication: Cardiac arrhythmia, unspecified Intermittent palpitations : Reviewed Lab Indication: Intermittent palpitations Intermittent palpitations : Reviewed Diagnostic Tests Indication: Intermittent palpitations Intermittent palpitations : Reviewed Tire Layer Letter Indication: Intermittent palpitations Nonsmoker : Eprescribed [...] Unspecified asthma with (acute) exacerbation : Reviewed Tire Layer Letter Indication: Unspecified asthma with (acute) exacerbation [...] HYPERCOAGULABLE STATE Other primary cardiomyopathies : Reviewed Tire Layer Letter Indication: Other primary cardiomyopathies Bronchitis : [...] VEINS SCHIZOPHRENIFORM DISORDER, CHRONIC STATE : Reviewed Tire Layer Letter: dr Egan Indication: SCHIZOPHRENIFORM DISORDER, CHRONIC [...] vein thrombosis, unspecified laterality Amenorrhea : Reviewed Tire Layer Letter Indication: Amenorrhea Other primary cardiomyopathies : HTN/CAD Red Flags Indication: Other primary cardiomyopathies Other primary cardiomyopathies : Reviewed Tire Layer Letter Indication: Other primary cardiomyopathies Other primary cardiomyopathies : Reviewed Lab Indication: Other primary cardiomyopathies Acute bronchitis : *URI Treatment Indication: Acute bronchitis Acute bronchitis : Antibiotic Usage Education - Female Indication: Acute bronchitis Amenorrhea : Diet, Exercise, and Wt loss Indication: Amenorrhea Other primary cardiomyopathies : HTN/CAD Red Flags Indication: Other primary cardiomyopathies Planned Observations TSH (42139)Indication: Type II diabetes mellitus, well controlled On: Request URINALYSIS, W/ MICRO (81351)Indication: Type II diabetes mellitus, well controlled On: Request MICROALBUMIN: CREATININE RATIO (20225) AND (69357)Indication: Type II diabetes mellitus, well controlled On: Request METABOLIC PANEL, COMPREHENSIVE (76357)Indication: Type II diabetes mellitus, well controlled On: Request LIPOPROTEIN, BLD, BY NMR (37568)Indication: Type II diabetes mellitus, well controlled On: Request LIPID PANEL (54103)Indication: Type II diabetes mellitus, well controlled On: Request CBC W/AUTO DIFF WBC (02514)Indication: Type II diabetes mellitus, well controlled On: Request PARATHORMONE (11035)Indication: Hyperprolactinemia On: 23-Fjq-377189: Request CALCIFEDIOL (84530)Indication: Vitamin D deficiency On: 56 Request MICROALBUMIN: CREATININE RATIO (68624) AND (68839)Indication: Type II diabetes mellitus, well controlled On: : Request METABOLIC PANEL, COMPREHENSIVE (19565)Indication: Type II diabetes mellitus, well controlled On: : Request LIPID PANEL (03586)Indication: Type II diabetes mellitus, well controlled On: Request CBC with auto diff (33552)Indication: Type II diabetes mellitus, well controlled On: :56 Request PT (Prothrobim Time) (48589)Indication: Chronic anticoagulation On: 12-Aug-2017 Request PT (Prothrobim Time) (66548)Indication: Chronic anticoagulation On: 05-Aug-2017 Request PT (Prothrobim Time) (87707)Indication: Chronic anticoagulation On: 29-Jul-2017 Request PT (Prothrobim Time) (09906)Indication: Chronic anticoagulation On: 22-Jul-2017 Request PT (Prothrobim Time) (19858)Indication: Chronic anticoagulation On: 15-Jul-2017 Request PT (Prothrobim Time) (24719)Indication: Chronic anticoagulation On: 08-Jul-2017 Request PT (Prothrobim Time) (64636)Indication: Chronic anticoagulation On: 01-Jul-2017 Request IRON & TOTAL IRON BINDING CAPACITY (84146)Indication: Elevated LFTs On: 4-Wvp-459616:38 Request TRANSFERRIN (04784)Indication: Elevated LFTs On: 8-Bbx-882546:38 Request FERRITIN (14413)Indication: Elevated LFTs On: 9-Rse-545414:37 Request PT (Prothrobim Time) (80156)Indication: Chronic anticoagulation On: 24-Jun-2017 Request PT (Prothrobim Time) (28177)Indication: Chronic anticoagulation On: 17-Jun-2017 Request PT (Prothrobim Time) (02535)Indication: Chronic anticoagulation On: 10-Jun-2017 Request URINALYSIS, W/ MICRO (07272)Indication: Type II diabetes mellitus, well controlled On: 75-Aor-385748:43 Request MICROALBUMIN: CREATININE RATIO (64787) AND (28794)Indication: Type II diabetes mellitus, well controlled On: 38-Flv-704120:43 Request PT (Prothrobim Time) (06740)Indication: Chronic anticoagulation On: 03-Jun-2017 Request PT (Prothrobim Time) (90789)Indication: Chronic anticoagulation On: 27-May-2017 Request PT (Prothrobim Time) (65370)Indication: Chronic anticoagulation On: 20-May-2017 Request PT (Prothrobim Time) (99296)Indication: Chronic anticoagulation On: 13-May-2017 Request PT (Prothrobim Time) (81084)Indication: Chronic anticoagulation On: 06-May-2017 Request PT (Prothrobim Time) (27384)Indication: Chronic anticoagulation On: 29-Apr-2017 Request PT (Prothrobim Time) (75420)Indication: Chronic anticoagulation On: 22-Apr-2017 Request PT (Prothrobim Time) (86773)Indication: Chronic anticoagulation On: 15-Apr-2017 Request PT (Prothrobim Time) ([id number])Indication: Chronic anticoagulation On: 08-Apr-2017 Request PT (Prothrobim Time) (54705)Indication: Chronic anticoagulation On: 01-Apr-2017 Request PT (Prothrobim Time) ([id number])Indication: Chronic anticoagulation On: 25-Mar-2017 Request PT (Prothrobim Time) ([id number])Indication: Chronic anticoagulation On: 18-Mar-2017 Request PT (Prothrobim Time) ([id number])Indication: Chronic anticoagulation On: 11-Mar-2017 Request METABOLIC PANEL, COMPREHENSIVE (82463)Indication: SOB (shortness of breath) On: 70-Rwz-061655:51 Request PT (Prothrobim Time) (84705)Indication: Chronic anticoagulation On: 04-Mar-2017 Request PT (Prothrobim Time) (69456)Indication: Chronic anticoagulation On: 25-Feb-2017 Request PT (Prothrobim Time) (18178)Indication: Chronic anticoagulation On: 18-Feb-2017 Request PT (Prothrobim Time) ([id number])Indication: Chronic anticoagulation On: 11-Feb-2017 Request PT (Prothrobim Time) ([id number])Indication: Chronic anticoagulation On: 04-Feb-2017 Request PT (Prothrobim Time) (65020)Indication: Chronic anticoagulation On: 28-Jan-2017 Request PT (Prothrobim Time) ([id number])Indication: Chronic anticoagulation On: 21-Jan-2017 Request PT (Prothrobim Time) ([id number])Indication: Chronic anticoagulation On: 14-Jan-2017 Request PT (Prothrobim Time) (73649)Indication: Chronic anticoagulation On: 07-Jan-2017 Request PT (Prothrobim Time) ([id number])Indication: Chronic anticoagulation On: 31-Dec-2016 Request PT (Prothrobim Time) ([id number])Indication: Chronic anticoagulation On: 24-Dec-2016 Request PT (Prothrobim Time) (74902)Indication: Chronic anticoagulation On: 17-Dec-2016 Request PT (Prothrobim Time) ([id number])Indication: Chronic anticoagulation On: 10-Dec-2016 Request PT (Prothrobim Time) ([id number])Indication: Chronic anticoagulation On: 03-Dec-2016 Request PT (Prothrobim Time) (87335)Indication: Chronic anticoagulation On: 26-Nov-2016 Request PT (Prothrobim Time) ([id number])Indication: Chronic anticoagulation On: 05-Nov-2016 Request PT (Prothrobim Time) ([id number])Indication: Chronic anticoagulation On: 29-Oct-2016 Request PT (PROTHROMBIN TIME) ([id number])Indication: EMBOLISM AND THROMBOSIS OF OTHER SPECIFIED VEINS On: 6-Fuu-900242:31 Request Comments: STAT Sjogren Antibodies- Anti-SS-A/Anti-SS-B (78068)t4Ofpeoofoac: Abnormal pulmonary function test On: :35 Request RHEUMATOID FACTOR-QUANT (95585)Indication: Abnormal pulmonary function test On: :35 Request REYNALDO (ANTINUCLEAR ANTIBODY) (61217)Indication: Abnormal pulmonary function test On: :35 Request LIPASE (14100)Indication: Diarrhea On: :56 Request LIPASE (61011)Indication: Diarrhea On: :56 Request AMYLASE (59677)Indication: Diarrhea On: :56 Request BNTP (07808)Indication: SOB (shortness of breath) on exertion On: :47 Request D-Dimer (68116)Indication: SOB (shortness of breath) on exertion On: :47 Request LIPID PANEL (32243)Indication: SOB (shortness of breath) on exertion On: :47 Request CALCIFEDIOL (04453)Indication: SOB (shortness of breath) on exertion On: :47 Request TSH (THYROID STIMULATING HORMONE) (67375)Indication: SOB (shortness of breath) on exertion On: :46 Request METABOLIC PANEL, COMPREHENSIVE (74095)Indication: SOB (shortness of breath) on exertion On: :46 Request CBC, PLATELETS & AUT DIFF ([id number])Indication: SOB (shortness of breath) on exertion On: :46 Request OVA & PARASITE DIR SMEAR ([id number])Indication: Diarrhea On: :33 Request OCCULT BLOOD FECES SCREEN ([id number])Indication: Diarrhea On: :33 Request LEUKOCYTE COUNT, FECAL ([id number])Indication: Diarrhea On: :33 Request C-DIFFICILE, STOOL ([id number])Indication: Diarrhea On: :33 Request SHERITA CULTURE-STOOL ([id number])Indication: Diarrhea On: :33 Request PT (Prothrobim Time) ([id number])Indication: Deep vein thrombosis, unspecified laterality On: 04-Apr-2015 Request PT (Prothrobim Time) ([id number])Indication: Deep vein thrombosis, unspecified laterality On: 05-Mar-2015 Request PT (Prothrobim Time) ([id number])Indication: Deep vein thrombosis, unspecified laterality On: 03-Feb-2015 Request PT (Prothrobim Time) ([id number])Indication: Deep vein thrombosis, unspecified laterality On: 04-Jan-2015 Request PT (Prothrobim Time) ([id number])Indication: Deep vein thrombosis, unspecified laterality On: 05-Dec-2014 Request PT (Prothrobim Time) ([id number])Indication: Deep vein thrombosis, unspecified laterality On: 05-Nov-2014 Request URINE SHERITA CULTURE (DENISE COL COUNT) ([id number])Indication: Lower urinary tract infection On: 5-Kot-924229:40 Request SHERITA CULTURE-OTHER ([id number])Indication: Wound drainage (Renamed from Drainage from wound) On: 67-Ktz-078314:45 Request URINE SHERITA CULTURE-IDENTIFICATN ([id number])Indication: Urinary frequency On: 0-Ucd-443668:07 Request PT (Prothrobim Time) ([id number])Indication: Deep vein thrombosis, unspecified laterality On: 21-Gzs-264006:16 Request Comments: Standing order HELICOBACTER PYLORI ANTIBODY ([id number])Indication: Epigastric pain On: 25-Qoo-313171:22 Request URINALYSIS, W/ MICRO ([id number])Indication: Other primary cardiomyopathies On: 01-Etq-64997:54 Request TSH ([id number])Indication: Other primary cardiomyopathies On: :53 Request METABOLIC PANEL, COMPREHENSIVE ([id number])Indication: Other primary cardiomyopathies On: :53 Request CBC WITH MANUAL DIFF ([id number])Indication: Other primary cardiomyopathies On: 97-Xfr-42804:53 Request LIPID PANEL ([id number])Indication: Other primary cardiomyopathies On: 08-Oqy-91394:53 Request PT (Prothrobim Time) ([id number])Indication: EMBOLISM AND THROMBOSIS OF OTHER SPECIFIED VEINS On: 66-Nfi-45179:46 Request Comments: inr PT (Prothrobim Time) ([id number])Indication: Deep vein thrombosis, unspecified laterality On: 8-Uhd-901264:35 Request Comments: inr CBC (AUTO) ([id number])Indication: SOB (shortness of breath) on exertion On: 2-Uvu-471865:28 Request Folate ([id number])Indication: Fatigue On: 32-Djz-887848:59 Request SED RATE ERYTHROCYTE ([id number])Indication: Fatigue On: 23-Rcp-560882:59 Request VITAMIN B-12 (CYANOCOBALAMIN) ([id number])Indication: Fatigue On: 11-Seq-209418:59 Request REYNALDO (ANTINUCLEAR ANTIBODY) ([id number])Indication: Fatigue On: 41-Beq-839903:59 Request C-REACTIVE PROTEIN ([id number])Indication: Fatigue On: 14-Nxc-792631:59 Request METABOLIC PANEL, COMPREHENSIVE ([id number])Indication: Fatigue On: 84-Hem-854286:59 Request RHEUMATOID FACTOR-QUANT ([id number])Indication: Fatigue On: 30-Kaa-169209:59 Request URINALYSIS, W/ MICRO ([id number])Indication: Other primary cardiomyopathies On: 43-Mbw-713109:58 Request MICROALBUMIN: CREATININE RATIO ([id number]) AND ([id number])Indication: Other primary cardiomyopathies On: 49-Vti-254261:58 Request METABOLIC PANEL, COMPREHENSIVE ([id number])Indication: Other primary cardiomyopathies On: 68-Ucu-186089:58 Request LIPID PANEL ([id number])Indication: Other primary cardiomyopathies On: 39-Yxf-366385:58 Request CBC WITH MANUAL DIFF ([id number])Indication: Other primary cardiomyopathies On: 86-Kqj-706127:58 Request TSH ([id number])Indication: Amenorrhea On: 08-Xft-233487:57 Request PT (Prothrobim Time) ([id number])Indication: Deep vein thrombosis, unspecified laterality On: 55-Ujz-243336:54 Request Comments: pt/inr - talked to dr zaman -- she will need lovenox inj prior to surgery when need to stop coumadin and restart after surgery PT/INR, Office ([id number])Indication: Deep vein thrombosis, unspecified laterality On: 29-Dfo-736775:12 Request PT/INR, Office ([id number])Indication: Deep vein thrombosis, unspecified laterality On: 4-Qqa-568571:26 Request TSH ([id number])Indication: Other primary cardiomyopathies On: :06 Request METABOLIC PANEL, COMPREHENSIVE ([id number])Indication: Other primary cardiomyopathies On: :06 Request LIPID PANEL ([id number])Indication: Other primary cardiomyopathies On: : Request CBC WITH MANUAL DIFF ([id number])Indication: Other primary cardiomyopathies On: :06 Request PT/INR, Office ([id number])Indication: EMBOLISM AND THROMBOSIS OF OTHER SPECIFIED VEINS On: :21 Request Comments: inr 2.8 PT/INR, Office ([id number])Indication: Deep vein thrombosis, unspecified laterality On: 27-Sep-20089:19 Request TSH ([id number])Indication: Other primary cardiomyopathies On: :21 Request MICROALBUMIN URINE QUANT ([id number])Indication: Other primary cardiomyopathies On: :21 Request LIPID PANEL ([id number])Indication: Other primary cardiomyopathies On: :21 Request METABOLIC PANEL, COMPREHENSIVE ([id number])Indication: Other primary cardiomyopathies On: :21 Request CBC WITH MANUAL DIFF ([id number])Indication: Other primary cardiomyopathies On: :21 Request Planned Procedures Aerosol Treatment ([id number])By: On: 23-May-2018 Intent Mavis Baldwin Comments: Lungs clear after aerosol treatment. X-RAY CERVICAL SPINE, 1 VIEW On: 15-Feb-2018 Intent ([id number])By: Paty Catalan DO, DO, Kathleen CT SCAN OF ABDOMEN AND PELVIS On: 17-Dec-2017 Intent WITH CONTRAST ([id number])By: Paty Catalan DO, DO, Kathleen EMGBy: Paty [...] Kaye ELECTROCARDIOGRAM, COMPLETE (ECG) On: 08-Dec-2017 Intent ([id number])By: Yara Chang Comments: nsr no acute chg / poor R wave progression adn nonspecific st flattening EMGBy: Paty Catalan DO On: 06-Sep-2017 Intent Paty LOCK Comments: upper and lower extremity Nerve ConductionBy: Alayna LOCK, On: 06-Sep-2017 Intent Paty Morrow DO Comments: upper and lower extremi X-RAY OF HAND, TWO VIEWS On: 06-Sep-2017 Intent ([id number])By: Paty Catalan DO Comments: Left Alayna DO, Paty X-RAY OF HAND, TWO VIEWS On: 06-Sep-2017 Intent ([id number])By: Paty Catalan DO Comments: Right Alayna DOPaty SCREENING DIGITAL TOMOSYNTHESIS On: 06-Sep-2017 Intent OF BREAST ([id number])By: Alayna DO, Paty Alayna DO, Paty X-RAY OF ANKLE, TWO VIEWS On: 27-Jul-2017 Intent ([id number])By: Alayna DO, Paty Alayna DO, Paty X-RAY OF ANKLE, TWO VIEWS On: 27-Jul-2017 Intent ([id number])By: Alayna DO, Paty Alayna DO, Paty X-RAY OF FOOT, TWO VIEWS On: 27-Jul-2017 Intent ([id number])By: Paty Catalan DO Comments: left Alayna DO, Paty X-RAY OF FOOT, TWO VIEWS On: 27-Jul-2017 Intent ([id number])By: Paty Catalan DO Comments: left Paty Catalan DO FLAT PLATE OF ABDOMEN ([id number])By: On: 12-Jul-2017 Intent Juan Jose CLAROS Zuleima Kaye Ultrasound - LiverBy: Alayna LOCK, On: 16-Jun-2017 Intent Paty Morrow DO Rocephin Injection, 2 Gram On: 02-Jun-2017 Intent ([id number])By: Paty Catalan DO, DO, Kathleen Aerosol Treatment ([id number])By: On: 02-Jun-2017 Intent Paty Catalan DO, DO, Comments: srill inspir and exp wheeze and junky but less cough nad moer a./e Paty Radiology - Chest- PA and LatBy: On: 02-Jun-2017 Intent Paty Catalan DO, DO, Kathleen CT SCAN OF CHEST WITH CONTRAST On: 02-Jun-2017 Intent ([id number])By: Paty Catalan DO Comments: fu on PE Paty Catalan DO Doppler Ultrasound OtherBy: On: 02-Jun-2017 Intent Paty Catalan DO, DO, Comments: b/l lower extremities-- fu on dvt Paty Aerosol Treatment ([id number])By: On: 25-May-2017 Intent Juan Jose CLAROS Zuleima Kaye Spirometry ([id number])By: Alayna LOCK, On: 19-Mar-2017 Intent Paty Morrow DO Comments: restriction noted Solu- Medrol Injection, 125mg On: 19-Mar-2017 Intent ([id number])By: Paty Catalan DO Comments: Lot:[id number]:06/2019Dose:125mgRoute:imSite:l armGiven By:NICHOLAS signed Paty Catalan DO Aerosol Treatment ([id number])By: On: 19-Mar-2017 Intent Paty Catalan DO, DO, Comments: more a/e no noise Paty Flu Vaccine (Quadrivalent) On: 15-Mar-2017 Intent [id number]: Paty Catalan DO Comments: Lot:[id number]:12/13/17Amt:0.5mlRoute:IMSite: L DltdGiven By: CHAITANYA Reis signed Paty Catalan DO COMPUTED TOMOGRAPHY ANGIOGRAPHY On: 09-Mar-2017 Intent OF CHEST FOR PULMONARY EMBOLISM ([id number])By: Mavis Baldwin VENOUS DOPPLER LOWER EXTREMITY On: 09-Mar-2017 Intent ([id number])By: Mavis Baldwin Comments: R/O DVT Aerosol Treatment ([id number])By: On: 30-Nov-2016 Intent Paty Catalan DO, DO, Comments: more a/e - less wheeze --- Paty Spirometry ([id number])By: Alayna LOCK, On: 30-Nov-2016 Intent Paty Morrow DO Comments: moderate restriction & obstruction Aerosol Treatment ([id number])By: On: 01-Jun-[address] - Chest (IV Contrast On: 08-Apr-2016 Intent Needed)By: Robel Sanon MD CT - Chest (IV Contrast On: 08-Apr-2016 Intent Needed)By: Robel Sanon MD Comments: Has Ct scan scehduled without contrast on 04/13/16. PLEASE DO CT SCAN WITH IV CONTRAST CHEST XRAY, PA & LATERAL On: 08-Apr-2016 Intent ([id number])By: Robel Sanon MD CT - Chest (Without Contrast)By: On: 02-Apr-2016 Intent Robel Sanon MD Comments: high resolution Flu Vaccine (Quadrivalent) On: 19-Mar-2016 Intent [id number]: Paty Catalan DO Comments: FLUlot: [id number]:11/11site:Lt deltoidroute:IMdose:.5mlDEYAHIR GIBBONS DO, Kathleen Echo CompleteBy: Robel Sanon MD On: 12-Mar-2016 Intent Comments: pls fax to Dr. palomo elena [facility] PFT - CompleteBy: Robel Sanon MD On: 12-Mar-2016 Intent Radiology - Foot - RightBy: Fab On: 12-Mar-2016 Intent Robel LEON Comments: pain in rt toe after fall. 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, Yanet Aerosol Treatment ([id number])By: On: 19-Aug-2015 Intent Slarb COLLEGE [employer]IVERSITY REGISTRAR, Yanet Aerosol Treatment ([id number])By: On: 16-Oct-2014 Intent Coty Scott MD Venous Doppler - RightBy: Ciesa On: 25-Sep-2014 Intent Zuleima CLAROS IMMUNIZ ADMNIN, 1 VAC, SNGL/COMBO On: 23-Apr-2014 Intent ([id number])By: Yanet Lee LPN Comments: [id number] syringeL Dltd, IMAS, LPNABN and VIS signed FLU VAC, SPLIT, >3 YEARS, On: 23-Apr-2014 Intent INTRAMUSC ([id number])By: Yanet Lee LPN Klyabbujo-Zab-Mqrm ([id number])By: On: 11-Sep-2013 Intent Alayna LOCK, Paty Catalan DO, Paty Aerosol Treatment ([id number])By: On: 24-Aug-2013 Intent Coty Scott MD Eprescribed prescriptions On: 24-Aug-2013 Intent ([id number])By: Coty Scott MD IMMUNIZ ADMNIN, 1 VAC, SNGL/COMBO On: 15-Mar-2013 Intent ([id number])By: Apolonia Alvarez Comments: Lot:[id number]:01/14/14Dose:0.5mLRoute:imSite:r armGiven By:NICHOLAS signed PNEUM VAC ADLT/IMUMNOSPR, On: 15-Mar-2013 Intent SBC/INTRM ([id number])By: Apolonia Alvarez FLU VAC, SPLIT, >3 YEARS, On: 15-Mar-2013 Intent INTRAMUSC ([id number])By: Antonio, Comments: Lot:[id number]:Dose:0.5mLRoute:IMSite:L DltdGiven By:NICHOLAS signed Apolonia IMMUNIZ ADMNIN, 1 VAC, SNGL/COMBO On: 15-Mar-2013 Intent ([id number])By: Apolonia Alvarez Ultrasound - AortaBy: Alayna LOCK, On: 24-Oct-2012 Intent Paty Alayna DO, Paty MRI - Brain (IV Contrast On: 04-Oct-2012 Intent Needed)By: Alayna LOCK, Paty Alayna DO, Paty Anoscopy ([id number])By: Alayna , On: 28-Sep-2012 Intent Paty Morrow [...] ADMNIN, 1 VAC, SNGL/COMBO On: 25-Apr-2012 Intent ([id number])By: Radha Whitaker LPN Comments: Lot #[id number]-L dltd, IMDose prefilled syringegiven by:REBEKAH CarlsonVIS signed FLU VAC, SPLIT, >3 YEARS, On: 25-Apr-2012 Intent INTRAMUSC ([id number])By: Radha Whitaker LPN Rocephin Injection, 2 Gram On: 18-Jan-2012 Intent ([id number])By: Coty Scott MD Comments: Lot #: [id number] date: 01/07Amount given: 2gRoute: IVSite given: right antecubitalGiven by: Raquel RN22g IV inserted to right antecubital without difficulty. No s/sx of infiltration. Tolerated well without difficulty. THER/PROPH/DIAG IV INF, INIT On: 18-Jan-2012 Intent ([id number])By: Coty Scott MD Ultrasound - GallbladderBy: On: 21-Sep-2011 Intent AlaynaPaty hagan DO, DO, Paty Venous Doppler - LeftBy: Tyler On: 04-Sep-2011 Intent Coty LEON Comments: leg, wet read FLU VAC, SPLIT, >3 YEARS, On: 01-Apr-2011 Intent INTRAMUSC ([id number])By: Master WELCH, Comments: Lot #[id number]/20/12Site-right deltoidgiven by: Jesisca Thao LPN Dunia IMMUNIZ ADMNIN, 1 VAC, SNGL/COMBO On: 01-Apr-2011 Intent ([id number])By: Dunia Thao LPN Pulse Oximetry ([id number])By: Sandeep On: 05-Sep-2010 Intent Sammie WELCH Comments: sp02- 90% on room air Aerosol Treatment ([id number])By: On: 05-Sep-2010 Intent Sammie Hopkins LPN Pulse Oximetry ([id number])By: Juan Jose On: 01-Sep-2010 Intent HARLANZuleima Aerosol Treatment ([id number])By: On: 01-Sep-2010 Intent Juan Jose Zuleima CLAROS IMMUNIZ ADMNIN, 1 VAC, SNGL/COMBO On: 10-Apr-2010 Intent ([id number])By: Paty Catalan DO Comments: Lot #[id number]-4/11Site-L arm IMDose 0.5mlgiven by:REBEKAH PEDRO DO, Kathleen FLU VAC, SPLIT, >3 YEARS, On: 10-Apr-2010 Intent INTRAMUSC ([id number])By: Paty Catalan DO, DO, Kathleen PHYSICAL THERAPY EVALUATION On: 24-Mar-2010 Intent ([id number])By: Juan Jose CLAROS Bess Radiology - Left KneeBy: Juan Jose On: 24-Mar-2010 Intent Zuleima CLAROS Aerosol Treatment ([id number])By: On: 17-Mar-2010 Intent Juan Jose CLAROS Zuleima Kaye Pulse Oximetry ([id number])By: Juan Jose On: 17-Mar-2010 Intent Zuleima CLAROS Aerosol Treatment ([id number])By: Cachorro On: 01-Nov-2009 Brigid Francois DO Pulse Oximetry ([id number])By: Cachorro On: 01-Nov-2009 Brigid Francois DO Comments: 87- after treatment Solu -Medrol Injection, 125 mg On: 01-Nov-2009 Intent ([id number])By: Laurie Reyna Comments: Lot:[id number]:125mgRoute:IMSite:Left Gluteus Given by: YAHIR Salgado Pulse Oximetry ([id number])By: On: 01-Nov-2009 Intent Olivia Batista Comments: 89% Radiology - Chest- PA and LatBy: On: 31-Oct-2009 Intent Paty Catalan DO DO, Paty Pulse Oximetry ([id number])By: Alayna On: 31-Oct-2009 Intent Paty LOCK DOPaty Comments: 90% Aerosol Treatment ([id number])By: On: 31-Oct-2009 Intent Paty Catalan DO, DO, Kathleen Solu- Medrol Injection, 125mg On: 31-Oct-2009 Intent ([id number])By: Paty Catalan DO Comments: Lot #[id number]/1/2012Site-left hipDose- 125 mggiven by:Paty Pelayo DO CT - Chest with PE ProtocolBy: On: 29-Aug-2009 Intent Paty Catalan DO DO, Paty Echo CompleteBy: Alayna LOCK, On: 29-Aug-2009 Intent Paty Catalan DO Paty EKG ([id number])By: Alayna LOCK, On: 29-Aug-2009 Intent Paty Catalan DO, Paty Bio Z ([id number])By: Alayna LOCK, On: 29-Aug-2009 Intent Paty Morrow DO Spirometry ([id number])By: Alayna LOCK, On: 29-Aug-2009 Intent Paty Catalan DOPaty Pulse Oximetry ([id number])By: Alayna On: 29-Aug-2009 Intent Paty LOCK DOPaty Inhaler Demo ([id number])By: Cachorro LOCK, On: 06-Aug-2009 Intent Brigid Molina Radiology - Chest- PA and LatBy: On: 06-Aug-2009 Intent Cachorro LOCK Brigid A Spirometry ([id number])By: Cachorro LOCK, On: 06-Aug-2009 Intent Brigid A Comments: done km- good effort and curve mildd restriction Aerosol Treatment ([id number])By: Cachorro On: 06-Aug-2009 Intent DO Brigid A Comments: done km Pulse Oximetry ([id number])By: Cachorro On: 06-Aug-2009 Alessandro LOCK Brigid A Comments: post aerosol 95% Pulse Oximetry ([id number])By: On: 06-Aug-2009 Intent Olivia Batista Comments: 94% Bio Z ([id number])By: Alayna LOCK, On: 15-May-2009 Intent Paty Morrow DO Comments: see scanned doc -- no changes n meds stable Doppler Ultrasound OtherBy: On: 27-Sep-2008 Intent Paty Catalan DO, DO, Comments: do in 3 months Paty Bio Z ([id number])By: Alayna LOCK, On: 13-Sep-2008 Intent Paty Morrow DO Comments: normal EKG ([id number])By: Alayna LOCK, On: 13-Sep-2008 Intent Paty Morrow DO Comments: nsr no acute changes IMMUNIZ ADMNIN, 1 VAC, SNGL/COMBO On: 09-May-2008 Intent ([id number])By: Paty Catalan DO, DO, Kathleen FLU VAC, SPLIT, >3 YEARS, On: 09-May-2008 Intent INTRAMUSC ([id number])By: Alayna LOCK, Comments: injection given in left deltoid. pt tolerated. see scanned paper Paty Morrow DO Pulse Oximetry ([id number])By: Cheyanne On: 28-Feb-2008 Intent Shelby HUDSON IMMUNIZ ADMNIN, 1 VAC, SNGL/COMBO On: 13-Apr-2007 Intent ([id number])By: Paty Catalan DO, DO, Kathleen FLU VAC, SPLIT, >3 YEARS, On: 13-Apr-2007 Intent INTRAMUSC ([id number])By: Alayna LOCK, Comments: lot # [id number] exp- 10/03 LDLT patient tolerated well Paty Morrow DO EKG ([id number])By: Alayna LOCK, On: 03-Dec-2006 Intent Paty Morrow DO Comments: nsr no acute ischemic changes Bio Z ([id number])By: Alayna LOCK, On: 03-Dec-2006 Intent Paty Morrow [...] UP TO 125 MG Ordered: 19-Mar-2017 Pending aPty Catalan DO, DO, Kathleen Instructions Name Dates [...] re. 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 The symptoms have been associated with caffiene use daily, caffeine use daily and tried OTC meds.Encounter Diagnosis: Sleep apnea, Sleep disturbance [facility] Phone Encounter On: 24-Dec-2014 8:36 Encounter Diagnosis: Unspecified Diagnosis End: 24-Dec-2014 8:38 [facility] Office Visit On: 23-Nov-2014 10:54 Encounter Reason: Follow up hospital - Reason for ER visit: note: (At [facility] not sure of the dates).Encounter Diagnosis: [...] of bronchitis- feels like that- hx of baldmear qnd dvtEncounter Diagnosis: Acute bronchitis (466.0) [facility] [...]
--- OUTSIDE RECORDS SUMMARY | 2018-09-19 12:49 | XMS RPT_ITS | Continuity of Care Document ---
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 [id number] Ordering Dr: Paty Catalan DO STUDY: X [...] Jaxon Adame MD at 16:03 EST Tel [phone], Service support , CC: Paty Catalan DO Marketing Mgr: Signed 09-Mar-2017 Emergency Department Summary Result: Comments: See Note; NOTES: [facility] Medical Records Department [address] [place] [address] Emergency Department Summary 03/09/172027 MR#: [id number] Acct: [id number] Name: SIMI NIELSEN Rep #: [id number] : 1970 47 From: Stone Felix MD [...] problems, contact your Primary Care Provider. Call [facility] [facility] ([phone]) or report to the closest Emergency Room. Koby l 911 if necessary. 03/09/172029 <Electronically signed by Stone Felix MD> Date Stone Felix MD Cosigner Signature (If Indica osmin): Date CC: Paty Catalan DO 09-Mar-2017 Venous Duplex Lower Extremity Result: Comments: See Note; NOTES: [facility] Cardiovascular Services [address] [place] [address] Venous Duplex US - Osmin Extrem 03/09/17 1458 MR#: [id number] Acct: [id number] Name: SIMI NIELSEN Rep #: [id number] : 1970 47 From: Mamadou Bonds MD Attending Dr: Mavis Baldwin, DATA ANALYTICS CHIEF SCIENTIST-C Status: REG CLI Ordering Dr: Mavis Baldwin DATA ANALYTICS CHIEF SCIENTIST-C Date: 03/09/17 Location: CT Sex: F C [...] is compressible. noncompressible. Procedure Exam performed in [facility]. The exam was diagnostic. A [...] Date Dictated: 03/09/17 1458 Date Transcribed: 03/09/171536 Marketing Mgr: Signed 09-Mar-2017 CTA Chest W/WO Contrast Result: Comments: See Note; NOTES: [facility] Imaging Services [address] [place] [address] CTA Chest W/WO Contrast MR#: [id number] Acct: [id number] Name: SIMI NIELSEN Rep #: [id number] : 1970 F 47 From: Olivia Ramirez MD PCP: Paty Catalan DO Status: REG CLI Study: CTA Chest W/WO Contrast Date of Exam: 03/09/17 Exam# [id number] Ordering Dr: Baldwin, Mavis DATA ANALYTICS CHIEF SCIENTIST-C STUDY : CTA CHEST REASON FOR EXAM: [...] Olivia Ramirez MD at 17:41 EDT Tel [phone], Service support , Fax N.B. : Dr. Gracia , Covering Physician, confirmed on 03/09/2017 18:33:20 (ET) that the referring physician received the results and did not require a verbal consultation. CC: EDIS Baldwin; Paty Catalan DO Marketing Mgr: Signed 18-Dec-2016 Sinus/Facial Bone Result: Comments: See Note; NOTES: [facility] Imaging Services [address] [place] [address] Syddana 4d Sinus/Facial Bone MR#: [id number] Acct: [id number] Name: SIMI NIELSEN Rep #: [id number] : 1970 F 46 From: Pedro Luis Palafox PCP: Paty Catalan DO Status: REG CLI Study: Sinus/Facial Bone Date of Exam: 12/18/16 Exam# [id number] Ordering Dr: Navid Sherman MD [facility] DY: CT MAXILLOFACIAL SINUSES REASON FOR EXAM: [...] CC: Harry Sherman MD; Paty Catalan DO Marketing Mgr: Signed 29-Oct-2016 Echo, Complete w/ Contrast Result: Comments: See Note; NOTES: [facility] Cardiovascular Services [address] [place] [address] Echo Complete W/ Contrast 10/29/16 1402 MR#: [id number] Acct: [id number] Name: SIMI CABAN ACE Rep #: [id number] : 1970 46 From: Marshall Ford MD Attending Dr: Norman Burton MD Status: REG CLI Ordering Dr: Norman Burton MD Date: 10/29/16 Location: [facility] Sex: F C Admitted: Reason For Study: [...] Paty Catalan M.D. Performed By: Clarisa Joshi [facility] 10/29/161948 Date __ Marshall Ford MD CC: Paty Catalan DO; Norman Burton MD Date Dictated: 10/29/16 1402 Date Transcribed: 10/29/161948 Marketing Mgr: Signed 22-Jul-2016 Chest PA and Lateral Result: Comments: See Note; NOTES: [facility] Imaging Services [address] [place] [address] Verdana 4d Chest PA and Lateral MR#: [id number] Acct: [id number] Name: SIMI NIELSEN Rep #: [id number] : 1970 F 46 From: Linda Méndez MD PCP: Paty Catalan DO Status: REG ER Study: Chest PA and Lateral Date of Exam: 07/22/16 Exam# [id number] Ordering Dr: Humberto Galvez MD STUDY: X-RAY [...] at 20:24 EST Tel , Service support [phone], CC: Paty Catalan DO; Humberto Galvez MD Marketing Mgr: Signed 13-Apr-2016 CTA Chest W/WO Contrast Result: Comments: See Note; NOTES: [facility] Imaging Services [address] [place] [address] Verdana 4d CTA Chest W/WO Contrast MR#: [id number] Acct: [id number] Name: SIMI NIELSEN Rep #: [id number] : 1970 F 46 From: Santos Burnett PCP: Paty Catalan DO Status: REG CLI Study: CTA Chest W/WO Contrast Date of Exam: 04/13/16 Exam# [id number] Ordering Dr: Robel Sanon DY: CTA CHEST [...] MD at 5:40 EDT , Service support [phone], CC: Paty Sanon Marketing Mgr: Signed 08-Apr-2016 Chest PA and Lateral Result: Comments: See Note; NOTES: [facility] Imaging Services [address] [place] [address] Verdana 4d Chest PA and Lateral MR#: [id number] Acct: [id number] Name: SIMI NIELSEN Rep #: [id number] : 1970 F 46 From: Flex Martinez MD PCP: Paty Catalan DO Status: REG CLI Study: Chest PA and Lateral Date of Exam: 04/08/16 Exam# [id number] Ordering Dr: Robel Sanon STUDY: X-RAY CHEST [...] FACR at 15:01 EDT , Service support [phone], CC: Paty Sanon Marketing Mgr: Signed 01-Apr-2016 Pulmonary Function Report Comp Result: Comments: See Note; NOTES: [facility] Pulmonary Services/Neurology [address] [place] [address] Pulmonary Function Test (Comp) MR#: [id number] Acct: [id number] Name: SIMI NIELSEN Rep #: [id number] : 1970 46 From: Louie Chaudhary MD Referring Dr: Robel Sanon Status: REG CLI Ordering Dr: Robel Sanon Date: 03/31/16 Location: [facility] Sex: F C DATE OF SERVICE: [...] C: Robel Sanon M.D. T: NTS JOB: [id number] 04/01/16 0726 <Electronically signed by Louie Chaudhary MD> Date Louie Chaudhary MD CC: Louie Chaudhary MD; Paty Sanon Date Dictated: 03/31/161617 Date Transcribed: 03/31/161617 Marketing Mgr: Signed 30-Mar-2016 Emergency Department Summary Result: Comments: See Note; NOTES: [facility] Medical Records Department [address] [place] [address] Emergency Department Summary MR#: [id number] Acct: [id number] Name: HOWARD NIELSEN Rep #: [id number] : 1970 46 From: Gabriel Menard DO PCP: Paty Catalan DO Status: [facility] ER DATE OF SERVICE: 03/21/2016 [...] The patient was given a script for Davilla for severe pain. She did not want crutches. Instructed to follow up with Dr. Catalan within next 5-7 days. DISPOSITIO N: Discharged home in stable condition. Gabriel Menard DO T: NTS JOB: [id number] 03/30/16 1652 <Electronically signed by Gabriel Menard DO> Date ____ Gabriel Menard DO Cosigner Signature (If Indicated): Date CC: Paty Catalan DO Date Dictated: 03/21/16 1037 Date Transcribed: 03/21/16 1037 Marketing Mgr: Signed 21-Mar-2016 Venous Duplex Lower Extremity Result: Comments: See Note; NOTES: [facility] Cardiovascular Services [address] [place] [address] Venous Duplex US, Unilateral 03/21/16 1002 MR#: [id number] Acct: [id number] Name: SIMI NIELSEN Rep #: [id number] : 1970 46 From: Mamadou Bonds MD [...] Dictated: 03/21/16 1002 Date Transcribed: 03/21/16 173 Marketing Mgr: Signed 21-Mar-2016 Discharge Instruction Result: Comments: See Note; NOTES: [facility] Medical Records Department [address] [place] [address] Discharge Instruction 03/21/16 1034 MR#: [id number] Acct: [id number] Name: SIMI SUTTON Rep #: [id number] : 1970 46 From: Gabriel Menard DO PCP: Paty Catalan DO Status: REG ER ED Disposition - Plan for ED Patient: Chief Complaint: Lower Extremity Injury Instructions: ED Muscle Strain, Extremity Prescriptions: Hydrocodone Bitart/Apap 5-325 [Davilla 5/325] 1 - 2 tablet PO Q4H PRN PRN #12 tablet PRN Reason: Pain Referrals: Paty Catalan DO [Primary Care Provider] - 5 -7 Days What to do if you have Problems For any increased pain, shortness of breath, bleeding, nausea or vomiting, chest pain, or any unexpected problems, contact your doctor. Call [facility] ([phone]) or report to the closest Emergency Room. Call 911 if necessary. 03/21/16 1035 <Electronically signed by Gabriel Menard DO> Date ___ Gabriel Menard DO Cosigner Signature (If Indicated): Date CC: Paty Catalan DO 18-Mar-2016 Echo, Complete w/ Contrast Result: Comments: See Note; NOTES: [facility] Cardiovascular Services [address] [place] [address] Echo Complete W/ Contrast 03/18/16 0853 MR#: [id number] Acct: [id number] Name: SIMI GUERRIER Rep #: [id number] : 1970 46 From: Frederick Butt MD Attending Dr: Robel Sanon Status: REG CLI Ordering Dr: Robel Sanon Date: 03/18/16 Location: [facility] Sex: F C Admitted: Reason Fo r [...] Dictated: 03/18/16 0853 Date Transcribed: 03/18/16 1105 Marketing Mgr: Signed 12-Mar-2016 Foot min 3 Views Result: Comments: See Note; NOTES: [facility] Imaging Services [address] [place] [address] Verdana 4d Foot min 3 Views MR#: [id number] Acct: [id number] Name: SIMI NIELSEN Rep #: [id number] : 1970 F 46 From: Jaxon Adame MD PCP: Paty Catalan DO Status: REG CLI Study: Foot min 3 Views Date of Exam: 03/12/16 Exam# [id number] Ordering Dr: Robel Sanon STUDY: X-R AY [...] Jaxon Adame MD at 13:59 EDT Tel [phone], Service support [phone], CC: Paty Catalan DO; Robel Fab Marketing Mgr: Signed 27-Aug-2015 12 Lead Electrocardiogram Result: Comments: See Note; NOTES: [facility] Cardiovascular Services [address] [place] [address] 12 Lead EKG 08/25/152241 MR#: [id number] Acct: [id number] Name: SIMI CABAN ACE Rep #: [id number] : 1970 45 From: Mark Underwood MD [...] Int : 450 ms Normal sinus rh [facility] Normal ECG Confirmed by CARLOS LEON, MARK ([id number]), supervising editor trailer NAYANA SAWANT ([id number]) on 08/27/2015 12:58:37 PM Referred By: NS Confirmed By:MARK UNDERWOOD MD 08/27/15 1258 Date Mark Underwood MD CC: Paty Catalan DO Date Dictated: 08/25/152241 Date Transcribed: 08/25/152241 Marketing Mgr: Signed 25-Aug-2015 Chest PA and Lateral Result: Comments: See Note; NOTES: [facility] Imaging Services [address] [place] [address] Verdana 4d Chest PA and Lateral MR#: [id number] Acct: [id number] Name: SIMI SUTTON Rep #: [id number] : 1970 F 45 From: Alycia Lara DO PCP: Paty Catalan DO Status: DEP ER Study: Chest PA and Lateral Date of Exam: 08/25/15 Exam# [id number] Ordering Dr: Richard Abreu MD STUDY: X-RAY [...] at 23:27 EST Tel , Service support [phone], RAD/Chest PA and Lateral IMPRESSION: Normal x-ray examination of the chest. Electronically Signed: Alycia Lara DO at 23:27 EST Tel , Service support [phone], CC: Paty Catalan DO; Richard Abreu MD Marketing Mgr: Signed 31-Dec-2014 12 Lead Electrocardiogram Result: Comments: See Note; NOTES: [facility] Cardiovascular Services [address] [place] [address] 12 Lead EKG 12/28/14 0049 MR#: [id number] Acct: [id number] Name: NIELSENYUNIOR SA Rep #: [id number] : 1970 44 From: Mark Underwood MD [...] ECG Confirmed by MARK UNDERWOOD MD ([id number]), supervising editor trailer NAYANA SAWANT ([id number]) on 12/31/2014 1:38:48 PM Referred By: IAN Confirmed By:MARK UNDERWOOD MD 12/31/14 1338 Da te Mark Underwood MD CC: Paty Catalan DO Date Dictated: 12/28/1448 Date Transcribed: 12/28/1448 Marketing Mgr: Signed 28-Dec-2014 Emergency Department Summary Result: Comments: See Note; NOTES: [facility] Medical Records Department [address] [place] [address] Emergency Department Summary MR#: [id number] Acct: [id number] Name: SIMI STRAUSS Rep #: [id number] : 1970 44 From: Humberto Jaimes MD PCP: Paty Catalan DO Status: REG ER DATE OF SERVICE: 12/28/2014 CHIEF COMPLAINT: Abnormal behavior, hallucinations. H ISTORY OF PRESENT ILLNESS: This is a 44-year-old female with history of bipolar disorder, schizophrenia, presents with abnormal behavior, hallucinations. Apparently, the mother called police ton[place]YAP because the patient was babbling. She was [...] Crisis. Humberto Jaimes MD T: NTS JOB: [id number] 12/28/14 0121 <Electronically signed by Humberto Jaimes MD> Date Humberto becker MD CC: Paty Catalan DO Date Dictated: 12/28/1454 Date Transcribed: 12/28/1454 Marketing Mgr: Signed 28-Dec-2014 Brain/Head without Contrast Result: Comments: See Note; NOTES: [facility] Imaging Services [address] [place] [address] CAT Scan Report MR#: [id number] Acct: [id number] Name: SIMI NIELSEN Rep #: [id number] : 1970 F 44 From: Rachid Donald MD PCP: Paty Catalan DO Status: [facility] ER Study: Brain/Head without Contrast Date of Exam: 12/28/14 Exam# [id number] Ordering Dr: Humberto Jaimes MD STUDY: CT [...] CC: Paty Catalan DO; Humberto Jaimes MD Marketing Mgr: Signed 13-Nov-2014 Emergency Department Summary Result: Comments: See Note; NOTES: [facility] Medical Records Department [address] [place] [address] Emergency Department Summary MR#: [id number] Acct: [id number] Name: SIMI STRAUSS Rep #: [id number] : 1970 44 From: Humberto Galvez MD PCP: Paty Catalan DO Status: [facility] ER DATE OF SERVICE: 11/10/2014 METHOD OF ARRIVAL: By EMS. CHIEF COMPLAINT: Hallucinati ons. PRIMARY CARE: Paty Catalan D.O. PSYCHIATRIST: Taina Paniter M.D. MARTINEZ HISTORY: This is a 44-year-old female with history of schizophrenia, bipolar, prior DVT, CHF, comes in by [facility] w ith hallucinations. Family called [facility] for this reason. This has apparently been going on for several days, getting worse. The patient denies being depressed or suicidal, but she recently just got ou t of [place] last week, for being suicidal. They did [...] CENTER Paty Owusu MD T: NTS JOB: [id number] 11/13/14 0906 <Electronically signed by Humberto Galvez MD> Date Humberto Galvez MD CC: Paty Catalan DO; Taina Painter MD Date Dictated: 11/11/1431 Date Transcribed: 11/11/1431 Marketing Mgr: Signed 12-Nov-2014 Emergency Department Summary Result: Comments: See Note; NOTES: [facility] Medical Records Department [address] [place] [address] Emergency Department Summary MR#: [id number] Acct: [id number] Name: SIMI STRAUSS Rep #: [id number] : 1970 44 From: Eleazar Shipley MD PCP: Paty Catalan DO Status: [facility] ER DATE OF SERVICE: 10/29/2014 CHIEF COMPLAINT: Suicidal and depressed. HISTORY OF P RESENT ILLNESS: A 44-year-old female who suffers from depression, was admitted to [facility] in June for depression and suicidal [...] structure several weeks ago, was admitted to [place] at that time for injury she sustained. [...] CENTER Paty Catalan DO T: NTS JOB: [id number] 11/12/14 2342 <Electronically signed by Eleazar Shipley MD> Date Eleazar Shipley MD CC: Paty Catalan DO Date Dictated: 10/29/14100 Date Transcribed: 10/29/14100 Marketing Mgr: Signed 11-Nov-2014 Emergency Department Summary Result: Comments: See Note; NOTES: [facility] Medical Records Department [address] [place] [address] Emergency Department Summary MR#: [id number] Acct: [id number] Name: SIMI STRAUSS Rep #: [id number] : 1970 44 From: Humberto Drake MD PCP: Paty Catalan DO Status: REG ER DATE OF SERVICE: 11/10/2014 ADDENDUM: [facility] The patient was evaluated by mental health, who agreed that the patient requires admission. I signed the patient's pink-slip and transfer forms, and the patient will be admitted for psyc hosis. Humberto Drake M.D. T: NTS JOB: [id number] 11/11/14 0430 <Electronically signed by Humberto Drake MD> Date Humberto armando MD CC: Paty Catalan DO Date Dictated: 11/11/14150 Date Transcribed: 11/11/14150 Marketing Mgr: Signed 10-Nov-2014 Brain/Head without Contrast Result: Comments: See Note; NOTES: [facility] Imaging Services [address] [place] [address] CAT Scan Report MR#: [id number] Acct: [id number] Name: SIMI NIELSEN Rep #: [id number] : 1970 F 44 From: Dayne Ocasio MD PCP: Paty Catalan DO Status: REG ER Study: Brain/Head without Contrast Date of Exam: 11/10/14 Exam# [id number] Ordering Dr: Humberto Galvez MD [facility] DY: CT BRAIN WITHOUT CONTRAST REASON FOR [...] at 23:45 E DT , Service support [phone], CC: Paty Catalan DO; Humberto Galvez MD Marketing Mgr: Signed 29-Oct-2014 Emergency Department Summary Result: Comments: See Note; NOTES: [facility] Medical Records Department [address] [place] [address] Emergency Department Summary MR#: [id number] Acct: [id number] Name: SIMI SUTTON Rep #: [id number] : 1970 44 From: Eleazar Shipley MD PCP: Paty Catalan DO Status: REG RCR DATE OF SERVICE: 10/29/2014 CHIEF COMPLAINT: Suicidal and depressed. HISTORY OF P RESENT ILLNESS: A 44-year-old female who suffers from depression, was admitted to [facility] in June for depression and suicidal [...] structure several weeks ago, was admitted to [place] at that time for injury she sustained. [...] CENTER Paty Catalan DO T: NTS JOB: [id number] 10/29/14 0349 <Electronically signed by Eleazar Shipley MD> Date Eleazar Shipley MD CC: Paty Catalan DO Date Dictated: 10/29/14100 Date Transcribed: 10/29/14100 Marketing Mgr: Signed 23-Oct-2014 Emergency Department Summary Result: Comments: See Note; NOTES: [facility] Medical Records Department [address] [place] [address] Emergency Department Summary MR#: [id number] Acct: [id number] Name: SIMI SUTTON Rep #: [id number] : 1970 44 From: Osiris Rueda PCP: Payt Catalan DO Status: [facility] ER DATE OF SERVICE: 10/10/2014 [...] center. I spoke with Dr. Sawant at [place] at the patient's request for transfer there. He did request that I discuss i f the patient may go home with the ER. This was discussed with the patient and her family at the bedside. DISPOSITION: Transfer. DIAGNOSES: 1. Head injury. 2. L2, L3 transverse process fractures . MD Anahi Patel C: Paty Catalan DO T: NTS JOB: [id number] 10/23/14 2337 <Electronically signed by Osiris Rueda > Date Osiris Rueda CC: Paty Catalan DO Date Dictated: 10/10/146 Date Transcribed: 10/10/14425 Marketing Mgr: Signed 10-Oct-2014 Ribs Uni Min 3V w/PA Chest Result: Comments: See Note; NOTES: [facility] Imaging Services [address] [place] [address] Radiology Report MR#: [id number] Acct: [id number] Name: SIMI NIELSEN Rep #: [id number] : 1970 F 44 From: Pedro Luis Palafox PCP: Paty Catalan DO Status: DEP ER Study: Ribs Uni Min 3V w/PA Chest Date of Exam: 10/10/14 Exam# [id number] Ordering Dr: Osiris Rueda STUDY: X-RAY - [...] MD at 7:43 EDT , Service support [phone], CC: Osiris Catalan DO Marketing Mgr: Signed 10-Oct-2014 Abdomen/Pelvis W IV Cont ONLY Result: Comments: See Note; NOTES: [facility] Imaging Services [address] [place] [address] CAT Scan Report MR#: [id number] Acct: [id number] Name: SIMI NIELSEN Rep #: [id number] : 1970 F 44 From: Pedro Luis Palafox PCP: Paty Catalan DO Status: REG ER Study: Abdomen/Pelvis W IV Cont ONLY Date of Exam: 10/10/14 Exam# [id number] Ordering Dr: Osiris Rueda Y: CT ABDOMEN [...] MD at 3:30 EDT , Service support [phone], CC: Osiris Rueda; Paty Catalan DO Marketing Mgr: Signed 10-Oct-2014 Brain/Head without Contrast Result: Comments: See Note; NOTES: [facility] Imaging Services [address] [place] [address] CAT Scan Report MR#: [id number] Acct: [id number] Name: SIMI NIELSEN Rep #: [id number] : 1970 F 44 From: Pedro Luis Palafox PCP: Paty Catalan DO Status: REG ER Study: Brain/Head without Contrast Date of Exam: 10/10/14 Exam# [id number] Ordering Dr: Osiris Rueda STUDY: CT BRAIN [...] at 3:17 EDT Tel , Service support [phone], CC: Osiris Rueda; Paty Catalan DO Marketing Mgr: Signed 07-Oct-2014 12 Lead Electrocardiogram Result: Comments: See Note; NOTES: [facility] Cardiovascular Services [address] [place] [address] 12 Lead EKG 10/02/14 1925 MR#: [id number] Acct: [id number] Name: HOWARD NIELSEN Rep #: [id number] : 1970 44 From: Frederick Butt MD [...] Normal ECG Confirmed by FREDERICK BUTT ([id number]), supervising editor trailer NAYANA SAWANT ([id number]) on 10/04/2014 10: 16:38 AM Referred By: CLEMENTE Confirmed By:FREDERICK BUTT 10/04/14 1016 Date Frdeerick Butt MD CC: Paty Catalan DO Date Dictated: 10/02/141924 Date Transcribed: 10/02/141924 Marketing Mgr: Signed 05-Oct-2014 Emergency Department Summary Result: Comments: See Note; NOTES: [facility] Medical Records Department [address] [place] [address] Emergency Department Summary MR#: [id number] Acct: [id number] Name: SIMI SUTTON Rep #: [id number] : 1970 44 From: Gabriel Menard DO [...] condition. Gabriel Menard DO T: NTS JOB: [id number] 10/05/14 1039 <Electronically signed by Gabriel Menard DO> Date __ Gabriel Menard DO CC: Paty Catalan DO Date Dictated: 10/02/142118 Date Transcribed: 10/02/142118 Marketing Mgr: Signed 02-Oct-2014 Discharge Instruction Result: Comments: See Note; NOTES: [facility] Medical Records Department [address], [place] [address] Discharge Instruction 10/02/142114 MR#: [id number] Acct: [id number] Name: SIMI NIELSEN Rep #: [id number] : 1970 44 From: Gabriel Menard DO [...] W/WO Contrast Result: Comments: See Note; NOTES: [facility] Imaging Services [address] [place] [address] CAT Scan Report MR#: [id number] Acct: [id number] Name: SIMI NIELSEN Rep #: [id number] : 1970 F 44 From: Stuart Wagner DO PCP: Paty Catalan DO Status: REG ER Study: CTA Chest W/WO Contrast Date of Exam: 10/02/14 Exam# [id number] Ordering Dr: Gabriel Menard DO STUDY: CTA [...] Stuart Wagner DO at 20:50 EDT Tel [phone], Service support [phone], CC: Paty Catalan DO; Gabriel Menard DO Marketing Mgr: Signed 23-Mar-2014 EKG (38571) Comments: nsr no acute chg Result: [MEASUREMENTS ANALYSIS] Date of Test: 03/23/2014 14:44:22; Heart Rate: 70; ID Interval: 146; QRS: 96; QT Interval: 414; Corrected QT Interval (QTc): 431; P Wave Gravity: 41; QRS Wave Gravity: -1; T Wave Gravity: 22; Blood Pressure: 128/64 [ECG DIAGNOSTIC STATEMENTS] Date of Test: 03/23/2014 14:44:22; Summary: Sinus Rhythm WITHIN NORMAL LIMITS 06-Nov-2013 Emergency Department Summary Result: Comments: See Note; NOTES: [facility] Medical Records Department [address] [place] [address] Emergency Department Summary MR#: [id number] Acct: [id number] Name: SIMI SUTTON Rep #: [id number] : 1970 43 From: Marshall Ricardo MD PCP: Paty Catalan DO Status: [facility] ER DATE OF SERVICE: 10/22/2013 [...] update. Marshall Ricardo MD T: NTS JOB: [id number] 11/06/13 0817 <Electronically signed by Marshall Ricardo MD> Date Marshall Ricardo MD CC: Paty Catalan DO Date Dictated: 10/22/13 1134 Date Transcribed: 10/22/131133 Marketing Mgr: Signed 22-Oct-2013 Discharge Instruction Result: Comments: See Note; NOTES: [facility] Medical Records Department [address] [place] [address] Discharge Instruction 10/22/13 1136 MR#: [id number] Acct: [id number] Name: SIMI NIELSEN Rep #: [id number] : 1970 43 From: Marshall Ricardo MD [...] No CXR Result: Comments: See Note; NOTES: [facility] Imaging Services [address] [place] [address] Radiology Report MR#: [id number] Acct: [id number] Name: SIMI NIELSEN Rep #: [id number] : 1970 F 43 From: Jaxon Adame MD PCP: Paty Catalan DO Status: REG CLI Study: Ribs Unil 2V No CXR Date of Exam: 09/11/13 Exam# [id number] Ordering Dr: Paty Catalna DO S TUDY: X-RAY - UNILATERAL RIBS [...] M.D. at 14:42 EDT , Service support [phone], CC: Paty Catalan DO Marketing Mgr: Signed Immunization Name Dates Details Influenza (3 years and up) on: 13-Apr-2007 Comments: lot # [id number] exp- 10/03 LDLT patient tolerated well Influenza [...] smoker Vital Signs Date Test Result Details 89-Rro-64060:37 Temperature 97.5 f Pulse 83 /min Comments: [...] kg/m2 Body Surface Area Calculated 2.08 m2 35-Hlp-826264:04 Temperature 97.4 f Comments: Method: Temporal Pulse [...] kg/m2 Body Surface Area Calculated 2.12 m2 31-Zfl-539598:24 Temperature 97.8 f Pulse 84 /min Comments: [...] kg/m2 Body Surface Area Calculated 2.12 m2 07-Iid-037349:23 Pulse 79 /min Comments: Pattern: Regular Respiration [...] kg/m2 Body Surface Area Calculated 2.2 m2 71-Oyv-885984:28 Temperature 97.6 f Pulse 88 /min Comments: [...] kg/m2 Body Surface Area Calculated 2.2 m2 16-Ocu-501010:18 Pulse 75 /min Comments: Pattern: Regular Respiration [...] kg/m2 Body Surface Area Calculated 2.21 m2 62-Tuf-833733:00 Pulse 98 /min Comments: Pattern: Regular Respiration [...] Height 0 in Head Circumference 0.00 cm 76-Qyz-198297:48 Pulse 64 /min Comments: Pattern: Regular Respiration [...] Order Date: 03/15/18How was Urine Obtained? [facility] [address]upsm[address] [place], [address] MUCUS, URINE 0 SEEN {/hpf} [...] Urine Drug Screen (VISTA) Comments: Order Date: 03/15/18[facility] [address] [place], [address] THC NEGATIVE (Normal) PCP NEGATIVE [...] TESTING MUST BE ORDERED SEPARATELY. USE TESTMNEMONIC: [facility] 90-Wsr-005788:51 Venous Blood Gas Comments: [facility]Point [facility] [address] [place] [address] ISTAT 26 [...] LIZ (Normal) :39 Alcohol, Blood (Medical)-Serum Comments: [facility] [address] [place], [address] SERUM ETOH < 3.0 mg/dL (Normal) Comments: The serum:whole blood ethanol ratio is approximately 1.14and varies slightly with hematocrit.Medical Alcohol reference interval and critical value innon-tolerant individuals; 50 - 100 Impairment 100 Intoxication 100 - 250 Severe Poisoning 250 - 400 Deep/possible fatal coma 96-Tew-680869:39 CBC W/Diff, Automated Comments: [facility] [address] [place], [address] Absolute Lymph 3.19 {X10_3/ul} (Normal) [...] 4.2-5.4 WBC 8.4 K/mm3 (Normal) Range: 4.4-11.0 79-Gay-449880:39 Comprehensive Metabolic Profil Comments: [facility] [address] [place], [place], [address] GAP 12 (Normal) Range: 5-15 CO2 24.0 [...] Comments: Please note revised GLUCOSE reference range mdjurjxvy07/02/2018. 42-Iin-178036:39 Lactic Acid Comments: Yes/No query for Sepsis Lactate Rule [facility] [address] [place], [address] LACTIC ACID 2.4 mmol/L (Abnormal) Range: 0.4-2.0 Comments: Critical Result(s) Called at: 20:33:03 03/15/2018 by: Jose VIVAR 87-Azx-882582:39 Partial Thromboplast Time Comments: [facility] [address] [place], [address] PTT 33.9 s (Normal) Range: 24.1-36.2 81-Jqn-375257:39 Prothrombin Time w/INR Comments: [facility] [address] [place], [place], [id number] INR 1.1 (Normal) PROTIME 13.9 s (Normal) Range: 11.7-14.9 :39 Troponin-I Comments: [facility] [address] [place], [place], [address] TROPONIN-I < 0.015 ng/mL (Normal) Comments: TROPONIN-I EXPECTED VALUES <0.045 Negative 0.045 - 0.590 Consistent with Cardiac Damage > OR = 0.600 Critical Value Not every elevated troponin is indicative of [place]. T hesevalues should be used with clinical judgement in examiningthe patient's clinical picture for diagnosis. To establisha diagnosis of OH versus myocardial injury, there must be ademonstrated rise and/ or fall in the troponin values, inaddition to ischemic symptoms, EKG changes, new regionalwall motion abnormality, and/or angiographical evidence. PLEASE NOTE: REFERENCE RANGES EDITED 11/08/1715-Mar-201829-Mgw-542899:24 Bedside Glucose Comments: [facility] [address] [place], [place] [id number] BEDSIDE GLU 92 mg/dL (Normal) Range: 70-110 Comments: MANAGEMENT OF PATIENT CARE PER NURSING PROTOCOL 28-Feb-20183:57 Bedside Glucose Comments: [facility] [address] [place], [place] [address] BEDSIDE GLU 115 mg/dL (Abnormal) Range: 70-110 Comments: MANAGEMENT OF PATIENT CARE PER NURSING PROTOCOL :15 Urinalysis, Complete Comments: How was Urine Obtained? [facility]EN[facility]CC[facility] [address]npsu[address] [place], [address] HYALINE CAST 5-10 SEEN {/lpf} (Normal) [...] (Normal) :15 Urine Drug Screen (VISTA) Comments: [facility] [address] [place], [address] THC NEGATIVE (Normal) PCP NEGATIVE [...] TESTING MUST BE ORDERED SEPARATELY. USE TESTMNEMONIC: [facility] :00 Partial Thromboplast Time Comments: [facility] [address] [place], [address] PTT 28.4 s (Normal) Range: 24.1-36.2 :00 Prothrombin Time w/INR Comments: [facility] [address] [place], [address] INR 1.1 (Normal) PROTIME 14.3 s (Normal) Range: 11.7-14.9 :55 Alcohol, Blood (Medical)-Serum Comments: [facility] [address] [place], [place], [address] SERUM ETOH < 3.0 mg/dL (Normal) Comments: The serum:whole blood ethanol ratio is approximately 1.14and varies slightly with hematocrit.Medical Alcohol reference interval and critical value innon-tolerant individuals; 50 - 100 Impairment 100 Intoxication 100 - 250 Severe Poisoning 250 - 400 Deep/possible fatal coma :55 CBC W/Diff, Automated Comments: [facility] [address]its[address] [place], [place], [address] Absolute Lymph 1.41 {X10_3/ul} (Normal) Range: 0.83-4.51 [...] Range: 4.4-11.0 28-Feb-20181:55 Comprehensive Metabolic Profil Comments: [facility] [address] [place], [place], [address] GAP 10 (Normal) Range: 5-15 CO2 26.0 [...] A.D.A. criteria.Please note revised GLUCOSE reference range xjezlyzrl73/02/2018. 7-Ipg-536351:45 Alcohol, Blood (Medical)-Serum Comments: [facility] [address] [place], [place], [address] SERUM ETOH 5.0 mg/dL (Normal) Comments: The serum:whole blood ethanol ratio is approximately 1.14and varies slightly with hematocrit.Medical Alcohol reference interval and critical value innon-tolerant individuals; 50 - 100 Impairment 100 Intoxication 100 - 250 Severe Poisoning 250 - 400 Deep/possible fatal coma 7-Yhm-563587:45 Basic Metabolic Profile (BMP) Comments: [facility] [address] [place], [place], [address] GAP 10 (Normal) Range: 5-15 CO2 26.0 [...] A.D.A. criteria.Please note revised GLUCOSE reference range vkbuufqrh06/02/2018. 2-Lzj-464239:45 CBC W/Diff, Automated Comments: [facility] [address] [place], [place], [address] Absolute Lymph 3.05 {X10_3/ul} (Normal) Range: 0.83-4.51 [...] 4.2-5.4 WBC 9.6 K/mm3 (Normal) Range: 4.4-11.0 4-Mpj-089170:45 ,Serum,hCG Quali. Comments: [facility] Hbfegrtmfz5070 [facility] [place], [address] HCGSQUAL NEGATIVE {Negative} (Normal) Range: 0-9 Nonpreg HCG Qual triggr 2 m[iU]/mL (Normal) 1-Qqk-965064:40 Urinalysis, Complete Comments: Order Date: 02/26/18How was Urine Obtained? [facility] Qxxovakach2076 [facility] [place], [address] MUCUS, URINE 1+ {/hpf} (Normal) [...] CLARITY Sl. Cloudy (Normal) COLOR Yellow (Normal) 7-Wnl-410087:40 Urine Drug Screen (VISTA) Comments: [facility] Msqfpvjepn49[address] [facility] [place], [address] THC NEGATIVE (Normal) PCP NEGATIVE [...] TESTING MUST BE ORDERED SEPARATELY. USE TESTMNEMONIC: [facility] 70-Qds-173252:50 Urinalysis, Complete Comments: Order Date: 02/23/18Has pt arrived? YHow was Urine Obtained? CLEAN [facility] Vidvcilizv4761 [facility] [place], [address] MUCUS, URINE 2+ {/hpf} (Normal) [...] (Normal) CLARITY Clear (Normal) COLOR Yellow (Normal) 33-Mcz-023085:50 Urine Drug Screen (VISTA) Comments: [facility] N[address]udwixmpp1369 [facility] [place], [address] THC NEGATIVE (Normal) PCP NEGATIVE [...] TESTING MUST BE ORDERED SEPARATELY. USE TESTMNEMONIC: [facility] 12-Oly-492124:15 Alcohol, Blood (Medical)-Serum Comments: [facility] [address] [place], [address] SERUM ETOH < 3.0 mg/dL (Normal) Comments: The serum:whole blood ethanol ratio is approximately 1.14and varies slightly with hematocrit.Medical Alcohol reference interval and critical value innon-tolerant individuals; 50 - 100 Impairment 100 Intoxication 100 - 250 Severe Poisoning 250 - 400 Deep/possible fatal coma 74-Lqu-202534:15 CBC W/Diff, Automated Comments: [facility] [address] [place], [address] Absolute Lymph 2.67 {X10_3/ul} (Normal) [...] 4.2-5.4 WBC 10.7 K/mm3 (Normal) Range: 4.4-11.0 05-Vip-622376:15 Comprehensive Metabolic Profil Comments: [facility] [address] [place], [address] GAP 9 (Normal) Range: 5-15 [...] Comments: Please note revised GLUCOSE reference range lduxjwsxc59/02/2018. 08-Rrr-539344:15 ,Serum,hCG Quali. Comments: [facility] [address] [place], [address] HCGSQUAL NEGATIVE {Negative} (Normal) Range: 0-9 Nonpreg HCG Qual triggr 2 m[iU]/mL (Normal) 55-Jji-68543:07 Bedside Glucose Comments: [facility] [address] [place] [address] BEDSIDE GLU 107 mg/dL (Normal) Range: 70-110 Comments: MANAGEMENT OF PATIENT CARE PER NURSING PROTOCOL 19-Jij-28941:00 COLON BIOPSY (CHOOSE See Note (Normal) Comments: [facility] [address] [place], [address] SITE) Comments: Patient: SIMI NIELSEN : 1970 (47/F) Acct Num: [id number] Phys: Kajal LEON,[place] Unit Num: [id number] Loc: EN Specimen: [id number] Received: 02/14/18 - 1323 Spec Type: COL [...] one cassette. / DEBORAH:torres 02/14/18 TC:4 CPT: 15141 x2 HEADER OPERATION: Colonoscopy PRE-OP DIAGNOSIS: Diarrhea TISSUE S UBMITTED: A Terminal ileum biopsy, B Random colon biopsies MICROSCOPIC DESCRIPTION Slides are reviewed. MICROSCOPIC DIAGNOSIS A. Terminal ileum, biopsy: Fragments of small inte stinal mucosa, no pathologic diagnosis. B. Colon, random biopsy: Fragments of colonic mucosa, no pathologic diagnosis. SJ:torres 02/15/18 Signed __ Connor Chao 02/15/18 <signature on file> 18-Cvp-51941:24 Bedside Glucose Comments: [facility] Laboratory[facility] of [address] [place], [place] [address] BEDSIDE GLU 108 mg/dL (Normal) Range: 70-110 Comments: MANAGEMENT OF PATIENT CARE PER NURSING PROTOCOL 04-Tej-534547:27 Urinalysis, Office (30503) UA - LEUKOCYTE ESTERASE Negative (Normal) UA - NITRITE Negative (Normal) URINE UROBILINGN DENISE TIMED Normal mg/dL (Normal) UA - PROTEIN Negative mg/dL (Normal) UA - PH 6.0 (Normal) UA - BLOOD Negative (Normal) UA - SPECIFIC GRAVITY 1.020 (Normal) UA - KETONES Negative mg/dL (Normal) UA - BILIRUBIN Negative (Normal) UA - GLUCOSE Negative (Normal) :55 Blood Glucose , Office (84927) Blood Glucose , Office 93 (Normal) :55 HgA1C , Office (47592) HgA1C , Office 5.6 % (Normal) Range: 4.6 - 7.1 :48 HgA1C , Office (01969) HgA1C , Office 5.2 % (Normal) Range: 4.6 - 7.1 :03 VITAMIN B-12 (CYANOCOBALAMIN) Comments: PATIENT NOT FASTINGPERFORMED BY: [facility] CenterMxmcrp5752 REES46 [facility] [id number] (88445) Vitamin B12 399 pg/mL (Normal) Range: 232-1245 :03 CBC W/AUTO DIFF WBC (67147) Comments: PATIENT NOT FASTINGPERFORMED BY: [facility] CenterAuxjlh7684 [facility] [id number] Immature Grans (Abs) 0.0 {x10E3/uL} (Normal) Range: [...] PANEL, COMPREHENSIVE Comments: PATIENT NOT FASTINGPERFORMED BY: [facility]CoChrist HospitalTtqcdx7006 [facility] [id number] (35083) ALT (SGPT) 28 [iU]/L (Normal) Range: 0-32 [...] Glucose, Serum 97 mg/dL (Normal) Range: 65-99 76-Hxz-268226:03 TSH (38216) Comments: PATIENT NOT FASTINGPERFORMED BY: [facility]6370 [facility] [id number] TSH 2.680 {uIU/mL} (Normal) Range: 0.450-4.500 76-Amj-263449:13 PT (Prothrobim Time) (32450) Comments: PATIENT NOT FASTINGPERFORMED BY: [facility].ukEllis Fischel Cancer CenterGuyaqk3484 [facility] [id number] Prothrombin Time 21.4 {sec} (Abnormal) Range: 9.1-12.0 INR 2.1 (Abnormal) Range: 0.8-1.2 Comments: Reference interval is for non-anticoagulated patients. . Suggested INR therapeutic range for Vitamin K anta gonist therapy: Standard Dose (moderate intensity therapeutic range): 2.0 - 3.0 Higher intensity therapeutic range 2.5 - 3.5 58-Sih-096106:31 URINE SHERITA CULTURE-DENISE COL Comments: PERFORMED BY: [facility] Hospital6370 [facility] [id number] Information: SRC:UC COUNT (20732) Result 1 MUG (Normal) Comments: Mixed urogenital flora10,000-25,000 colony forming units per mL Urine Final report (Normal) Culture,Comprehensive 14-Hpq-799665:33 Urinalysis, Office (80892) UA - LEUKOCYTE ESTERASE Negative (Normal) UA - NITRITE Negative (Normal) URINE UROBILINGN DENISE TIMED Normal mg/dL (Normal) UA - PROTEIN Negative mg/dL (Normal) UA - PH 5.0 (Normal) UA - BLOOD Negative (Normal) UA - SPECIFIC GRAVITY 1.010 (Normal) UA - KETONES Negative mg/dL (Normal) UA - BILIRUBIN Negative (Normal) UA - GLUCOSE Negative (Normal) 56-Mpd-066584:32 HEPATIC FUNCTION PANEL Comments: PATIENT NOT FASTINGPERFORMED BY: [facility]uk[facility] Hospital6370 [facility] [id number] (55542) ALT (SGPT) 78 [iU]/L (Abnormal) Range: 0-32 AST (SGOT) 38 [iU]/L (Normal) Range: 0-40 Alkaline Phosphatase, S 77 [iU]/L (Normal) Range: 39-117 Bilirubin, Direct 0.18 mg/dL (Normal) Range: 0.00-0.40 Bilirubin, Total 0.6 mg/dL (Normal) Range: 0.0-1.2 Albumin, Serum 4.0 g/dL (Normal) Range: 3.5-5.5 Protein, Total, Serum 6.8 g/dL (Normal) Range: 6.0-8.5 :32 HEPATITIS PANEL (49741) Comments: PATIENT NOT FASTINGPERFORMED BY: [facility].ukD[place] 1426670 [facility] [id number] Hep C Virus Ab <0.1 {s/co_ratio} (Normal) Range: 0.0-0.9 Comments: Negative: < 0.8 Indeterminate: 0.8 - 0.9 Positive: > 0.9 . The CDC recommends that a positive HCV antibody result be followed up with a HCV Nucleic Acid Amplification test (267993). Hep B Core Ab, IgM Negative (Normal) HBsAg Screen Negative (Normal) Hep A Ab, IgM Negative (Normal) :32 ANTIMITOCHONDRIAL ANTIBODY Comments: PATIENT NOT FASTINGPERFORMED BY: [facility].uk[place] 1426670 [facility] [id number] (12469) Mitochondrial (M2) Antibody <20.0 {Units} (Normal) Range: 0.0-20.0 Comments: Negative 0.0 - 20.0 Equivocal 20.1 - 24.9 Positive >24.9 . Mitochondrial (M2) Antibodies are found in 90-96% of patients with primary biliary cirrhosis. :32 TRANSFERRIN (77715) Comments: PATIENT NOT FASTINGPERFORMED BY: [facility].ukAsc[facility] Hospital6370 [facility] [id number] Transferrin 265 mg/dL (Normal) Range: 200-370 58-Amf-897408:32 GGT (GAMMA GLUTAMYLTRANSFERASE) Comments: PATIENT NOT FASTINGPERFORMED BY: [facility] [id number] (41905) GGT 57 [iU]/L (Normal) Range: 0-60 06-Hiw-640464:32 FERRITIN (65078) Comments: PATIENT NOT FASTINGPERFORMED BY: [facility]andoChrist HospitalIuqlgh9459 [facility] [id number] Ferritin, Serum 317 ng/mL (Abnormal) Range: 15-150 :32 CMV IGM ANTBDY (08015) Comments: PATIENT NOT FASTINGPERFORMED BY: [facility].uk[place] 1426670 [facility] [id number] Cytomegalovirus (CMV) Ab, IgM <30.0 AU/mL (Normal) Range: 0.0-29.9 Comments: Negative <30.0 Equivocal 30.0 - 34.9 Positive >34.9 A positive result is generally indicative of acute infection, reactivation or persistent IgM production. :32 CERULOPLASMIN (86884) Comments: PATIENT NOT FASTINGPERFORMED BY: [facility]andoChrist HospitalNeqmty[address] [place] [address] [id number] Ceruloplasmin 29.9 mg/dL (Normal) Range: 19.0-39.0 :32 ASM (ANTI SMOOTH MUSCLE Comments: PATIENT NOT FASTINGPERFORMED BY: [address] [id number] ANTIBODY) (17914) Actin (Smooth Muscle) Antibody 7 {Units} (Normal) Range: 0-19 Comments: Negative 0 - 19 Weak positive 20 - 30 Moderate to strong positive >30 . Actin Antibodies are found in 52-85% of patients with autoimmune hepatitis or chronic active hepatitis and in 22% of patients with primary biliary cirrhosis. :32 ANTI-LIVER/KIDNEY MICROSOMAL Comments: PATIENT NOT FASTINGPERFORMED BY: [facility]Christ HospitalEjpwkn0767 [facility] [id number] ANTIBODY (02808) Liver-Kidney Microsomal Ab 1.5 {Units} (Normal) Range: 0.0-20.0 Comments: Negative 0.0 - 20.0 Equivocal 20.1 - 24.9 Positive >24.9 . LKM type 1 antibodies are detected in patients with autoimmune hepatitis type 2 and in up to 8% of patients with chronic HCV infection. :32 REYNALDO (ANTINUCLEAR ANTIBODY) Comments: PATIENT NOT FASTINGPERFORMED BY: Lab36 Bright StreetDublin [place] [id number] (16033) REYNALDO Direct Negative (Normal) 40-Jnv-738434:41 TSH (06053) Comments: PATIENT WAS FASTINGPERFORMED BY: [facility]6370 [facility] [id number] TSH 2.840 {uIU/mL} (Normal) Range: 0.450-4.500 56-Axc-754788:41 METABOLIC PANEL, COMPREHENSIVE Comments: PATIENT WAS FASTINGPERFORMED BY: [facility]6370 [facility] [id number] (07588) ALT (SGPT) 94 [iU]/L (Abnormal) Range: 0-32 [...] Glucose, Serum 94 mg/dL (Normal) Range: 65-99 05-Yrs-157019:41 LIPID PANEL (81108) Comments: PATIENT WAS FASTINGPERFORMED BY: [facility]andoChrist HospitalXjyojx0837 [facility] [id number] LDL/HDL Ratio 2.3 {ratio_units} (Normal) Range: 0.0-3.2 Comments: LDL/HDL Ratio Men Women 1/2 Avg.Risk 1.0 1.5 Av g.Risk 3.6 3.2 2X Avg.Risk 6.2 5.0 3X Avg.Risk 8.0 6.1 LDL Cholesterol Calc 79 mg/dL (Normal) Range: 0-99 VLDL Cholesterol Koby 31 mg/dL (Normal) Range: 5-40 HDL Cholesterol 35 mg/dL (Abnormal) Triglycerides 155 mg/dL (Abnormal) Range: 0-149 Cholesterol, Total 145 mg/dL (Normal) Range: 100-199 59-Bto-407720:41 CBC W/AUTO DIFF WBC (92156) Comments: PATIENT WAS FASTINGPERFORMED BY: [facility]andoChrist HospitalZanvtd7339 [facility] [id number] Immature Grans (Abs) 0.0 {x10E3/uL} (Normal) Range: [...] (Normal) Range: 3.4-10.8 :08 HgA1C , Office (61883) HgA1C , Office 5.4 % (Normal) Range: 4.6 - 7.1 :08 Blood Glucose , Office (30563) Blood Glucose , Office 128 (Normal) :21 Rapid Flu (29533 x 2) Influenza A Ag negative (Normal) :07 URINE SHERITA CULTURE-DENISE COL Comments: PERFORMED BY: LabCoChrist HospitalPfugkj4774 [facility] [id number] Information: SRC:UR COUNT (72606) Antimicrobial MIHEAD (Normal) Comments: S = Susceptible; [...] primarily for treating urinary tract infections. (CLSI, D725-Y14,2009) Result 1 Escherichia coli Comments: 10,000-25,000 colony forming units per mL (Abnormal) Urine Final report Culture,Comprehensive (Abnormal) 2-Xlj-537263:35 Urinalysis, Office (72209) UA - LEUKOCYTE ESTERASE Trace (Normal) UA - NITRITE Negative (Normal) URINE UROBILINGN DENISE TIMED 2 mg/dL (Normal) UA - PROTEIN Negative mg/dL (Normal) UA - PH 6 (Abnormal) UA - BLOOD Hemolyzed Trace (Normal) UA - SPECIFIC GRAVITY 1.015 (Normal) UA - KETONES Negative mg/dL (Normal) UA - BILIRUBIN Negative (Normal) UA - GLUCOSE Negative (Normal) 76-Owr-838107:47 URINE SHERITA CULTURE (DENISE COL Comments: PERFORMED BY: [facility] [place] [id number] COUNT) (38346) Antimicrobial MIHEAD (Normal) Comments: S = Susceptible; [...] Colonies/mL (Abnormal) Urine Final report Culture,Comprehensive (Abnormal) 50-Dss-677536:47 URINALYSIS (74988) Comments: PERFORMED BY: [facility] [id number] Information: SRC:UR Microscopic Examination MICNIP (Normal) Comments: Microscopic not indicated and not performed. Nitrite, Urine Negative (Normal) Urobilinogen,Semi-Qn 0.2 mg/dL (Normal) Range: 0.2-1.0 Bilirubin Negative (Normal) Occult Blood Negative (Normal) Ketones Negative (Normal) Glucose Negative (Normal) Protein Negative (Normal) WBC Esterase Negative (Normal) Appearance Clear (Normal) Urine-Color Yellow (Normal) pH 6.0 (Normal) Range: 5.0-7.5 Specific [place] 1.012 (Normal) Range: 1.005-1.030 :35 Basic Metabolic Profile (BMP) Comments: 'TROP' Serial specimen #1, #2, #3, or #4: 1[facility] Thynswhtvo[address] [place], [place], [id number] GAP 9 (Normal) Range: 5-15 CO2 31.0 [...] A.D.A. criteria. :35 CBC W/Diff, Automated Comments: [facility] Fxlnnsoqns0453 [address]. [place], [place], [id number] Absolute Lymph 2.00 {X10_3/ul} (Normal) Range: 0.83-4.51 [...] 4.2-5.4 WBC 7.9 K/mm3 (Normal) Range: 4.4-11.0 99-Lux-079882:35 Troponin-I Comments: 'TROP' Serial specimen #1, #2, #3, or #4: 1[facility] Kquxjqtwbd4013 [place], [address] TROPONIN-I < 0.02 ng/mL (Normal) Comments: TROPONIN-I EXPECTED VALUES <0.05 NEGATIVE 0.06 - 0.59 AT RISK OF [place] > OR = 0.60 SUGGEST [place] 00-Omz-461044:45 Comprehensive Metabolic Profil Comments: Comments: PT.TAKING SULFAMETHOXAZOLE, SAID THE LABEL COULD AFFECT RESULTSUniversity Hospitals [facility] Center Vruafywxgo9868 [place], [address] GAP 9 (Normal) Range: 5-15 [...] mg/dL (Normal) Range: 70-110 :42 HGB A1C (69345) Comments: PATIENT NOT FASTINGPERFORMED BY: OwtwareFormerly [facility] [id number] Hemoglobin A1c 6.8 % (Abnormal) Range: 4.8-5.6 Comments: . Pre-diabetes: 5.7 - 6.4 Diabetes: >6.4 Glycemic control for adults with diabetes: <7.0 :42 SED RATE ERYTHROCYTE (35600) Comments: PATIENT NOT FASTINGPERFORMED BY: Invoca70 [facility] [id number] Sedimentation Rate-Westergren 15 mm/h (Normal) Range: 0-32 :42 C-REACTIVE PROTEIN (73641) Comments: PATIENT NOT FASTINGPERFORMED BY: Invoca70 [facility] [id number] C-Reactive Protein, Quant 15.5 mg/L (Abnormal) Range: 0.0-4.9 :42 TSH (83855) Comments: PATIENT NOT FASTINGPERFORMED BY: CibandoLea Regional Medical CenterSksxxo0741 [facility] [id number] TSH 2.870 {uIU/mL} (Normal) Range: 0.450-4.500 :42 METABOLIC PANEL, COMPREHENSIVE Comments: PATIENT NOT FASTINGPERFORMED BY: CibandoLea Regional Medical CenterBcscug5098 [facility] [id number] (10201) ALT (SGPT) 51 [iU]/L (Abnormal) Range: 0-32 [...] Range: 65-99 :42 CBC W/AUTO DIFF WBC (93199) Comments: PATIENT NOT FASTINGPERFORMED BY: CibandoChrist HospitalKduhif3226 [facility] [id number] Immature Grans (Abs) 0.0 {x10E3/uL} (Normal) Range: [...] 3.77-5.28 WBC 9.7 {x10E3/uL} (Normal) Range: 3.4-10.8 75-Pko-91017:22 PT (Prothrobim Time) (68072) Comments: PATIENT NOT FASTINGPERFORMED BY: LabCoChrist HospitalUdncuo0323 [facility] [id number] Prothrombin Time 23.3 {sec} (Abnormal) Range: 9.1-12.0 INR 2.3 (Abnormal) Range: 0.8-1.2 Comments: Reference interval is for non-anticoagulated patients. . Suggested INR therapeutic range for Vitamin K anta gonist therapy: Standard Dose (moderate intensity therapeutic range): 2.0 - 3.0 Higher intensity therapeutic range 2.5 - 3.5 :36 PT (Prothrobim Time) (24776) Comments: PATIENT NOT FASTINGPERFORMED BY: [facility]6370 [facility] [id number] Prothrombin Time 25.8 {sec} (Abnormal) Range: 9.1-12.0 INR 2.5 (Abnormal) Range: 0.8-1.2 Comments: Reference interval is for non-anticoagulated patients. . Suggested INR therapeutic range for Vitamin K anta gonist therapy: Standard Dose (moderate intensity therapeutic range): 2.0 - 3.0 Higher intensity therapeutic range 2.5 - 3.5 77-Lil-343829:27 PT (Prothrobim Time) (71586) Comments: PATIENT NOT FASTINGPERFORMED BY: [facility]6370 [facility] [id number] Prothrombin Time 22.3 {sec} (Abnormal) Range: 9.1-12.0 INR 2.2 (Abnormal) Range: 0.8-1.2 Comments: Reference interval is for non-anticoagulated patients. . Suggested INR therapeutic range for Vitamin K anta gonist therapy: Standard Dose (moderate intensity therapeutic range): 2.0 - 3.0 Higher intensity therapeutic range 2.5 - 3.5 83-Laj-603591:05 CBC-Complete Blood Cnt No Diff Comments: [facility] Obqxfixamy6802 [place], [place], [address] MPV 10.2 fL (Normal) Range: 6.2-12.0 PLT [...] (Normal) Range: 4.4-11.0 :24 PT (Prothrobim Time) (62855) Comments: PATIENT NOT FASTINGPERFORMED BY: [facility]6370 [facility] [id number] Prothrombin Time 20.6 {sec} (Abnormal) Range: 9.1-12.0 INR 2.0 (Abnormal) Range: 0.8-1.2 Comments: Reference interval is for non-anticoagulated patients. . Suggested INR therapeutic range for Vitamin K anta gonist therapy: Standard Dose (moderate intensity therapeutic range): 2.0 - 3.0 Higher intensity therapeutic range 2.5 - 3.5 :42 PT (Prothrobim Time) (51957) Comments: PATIENT NOT FASTINGPERFORMED BY: [facility]6370 [facility] [id number] Prothrombin Time 20.0 {sec} (Abnormal) Range: 9.1-12.0 INR 2.0 (Abnormal) Range: 0.8-1.2 Comments: Reference interval is for non-anticoagulated patients. . Suggested INR therapeutic range for Vitamin K anta gonist therapy: Standard Dose (moderate intensity therapeutic range): 2.0 - 3.0 Higher intensity therapeutic range 2.5 - 3.5 :38 PT (Prothrobim Time) (38599) Comments: PATIENT NOT FASTINGPERFORMED BY: [facility]6370 [facility] [id number] Prothrombin Time 19.4 {sec} (Abnormal) Range: 9.1-12.0 INR 1.9 (Abnormal) Range: 0.8-1.2 Comments: Reference interval is for non-anticoagulated patients. . Suggested INR therapeutic range for Vitamin K anta gonist therapy: Standard Dose (moderate intensity therapeutic range): 2.0 - 3.0 Higher intensity therapeutic range 2.5 - 3.5 60-Rav-316473:07 PT (Prothrobim Time) (06404) Comments: PATIENT NOT FASTINGPERFORMED BY: [place] 0152670 [facility] [id number] Prothrombin Time 18.9 {sec} (Abnormal) Range: 9.1-12.0 INR 1.8 (Abnormal) Range: 0.8-1.2 Comments: Reference interval is for non-anticoagulated patients. . Suggested INR therapeutic range for Vitamin K anta gonist therapy: Standard Dose (moderate intensity therapeutic range): 2.0 - 3.0 Higher intensity therapeutic range 2.5 - 3.5 :40 PT (Prothrobim Time) (21598) Comments: PATIENT NOT FASTINGPERFORMED BY: [facility]6370 [facility] [id number] Prothrombin Time 21.4 {sec} (Abnormal) Range: 9.1-12.0 INR 2.1 (Abnormal) Range: 0.8-1.2 Comments: Reference interval is for non-anticoagulated patients. . Suggested INR therapeutic range for Vitamin K anta gonist therapy: Standard Dose (moderate intensity therapeutic range): 2.0 - 3.0 Higher intensity therapeutic range 2.5 - 3.5 :18 PT (Prothrobim Time) (20190) Comments: PATIENT NOT FASTINGPERFORMED BY: [facility]6370 [facility] [id number] Prothrombin Time 18.6 {sec} (Abnormal) Range: 9.1-12.0 INR 1.8 (Abnormal) Range: 0.8-1.2 Comments: Reference interval is for non-anticoagulated patients. . Suggested INR therapeutic range for Vitamin K anta gonist therapy: Standard Dose (moderate intensity therapeutic range): 2.0 - 3.0 Higher intensity therapeutic range 2.5 - 3.5 31-Cmn-269978:03 PT (Prothrobim Time) (09118) Comments: PATIENT NOT FASTINGPERFORMED BY: [facility]6370 [facility] [id number] Prothrombin Time 23.6 {sec} (Abnormal) Range: 9.1-12.0 INR 2.3 (Abnormal) Range: 0.8-1.2 Comments: Reference interval is for non-anticoagulated patients. . Suggested INR therapeutic range for Vitamin K anta gonist therapy: Standard Dose (moderate intensity therapeutic range): 2.0 - 3.0 Higher intensity therapeutic range 2.5 - 3.5 :49 PT (Prothrobim Time) (01844) Comments: PATIENT NOT FASTINGPERFORMED BY: [facility]6370 [facility] [id number] Prothrombin Time 24.7 {sec} (Abnormal) Range: 9.1-12.0 INR 2.4 (Abnormal) Range: 0.8-1.2 Comments: Reference interval is for non-anticoagulated patients. . Suggested INR therapeutic range for Vitamin K anta gonist therapy: Standard Dose (moderate intensity therapeutic range): 2.0 - 3.0 Higher intensity therapeutic range 2.5 - 3.5 :34 PT (Prothrobim Time) (77462) Comments: PATIENT NOT FASTINGPERFORMED BY: [facility]6370 [facility] [id number] Prothrombin Time 23.1 {sec} (Abnormal) Range: 9.1-12.0 INR 2.3 (Abnormal) Range: 0.8-1.2 Comments: Reference interval is for non-anticoagulated patients. . Suggested INR therapeutic range for Vitamin K anta gonist therapy: Standard Dose (moderate intensity therapeutic range): 2.0 - 3.0 Higher intensity therapeutic range 2.5 - 3.5 :26 PT (Prothrobim Time) (81998) Comments: PATIENT NOT FASTINGPERFORMED BY: [facility]6370 [facility] [id number] Prothrombin Time 14.3 {sec} (Abnormal) Range: 9.1-12.0 INR 1.4 (Abnormal) Range: 0.8-1.2 Comments: Reference interval is for non-anticoagulated patients. . Suggested INR therapeutic range for Vitamin K anta gonist therapy: Standard Dose (moderate intensity therapeutic range): 2.0 - 3.0 Higher intensity therapeutic range 2.5 - 3.5 3-Yad-417545:31 Prothrombin Time w/INR Comments: Order Date: 08/03/16Order Info: 6301-6 - PTComments: STATOrder Date: 08/03/16Order Info: 6301-6 - PTComments: STATOrder Date: 08/03/16Order Info: 6301-6 - PTComments: [facility] rxsttgjga9594 Radha [place], [id number] INR 2.2 (Normal) PROTIME 24.1 s (Abnormal) Range: 11.7-14.9 4-Ava-513484:05 PT (Prothrobim Time) (03266) Comments: PATIENT NOT FASTINGPERFORMED BY: [facility] Hazegk2116 [facility] [id number] Prothrombin Time 10.4 {sec} (Normal) Range: 9.1-12.0 INR 1.0 (Normal) Range: 0.8-1.2 Comments: Reference interval is for non-anticoagulated patients. . Suggested INR therapeutic range for Vitamin K anta gonist therapy: Standard Dose (moderate intensity therapeutic range): 2.0 - 3.0 Higher intensity therapeutic range 2.5 - 3.5 10-Mez-537549:30 Urinalysis, Complete Comments: How was Urine Obtained? CLEAN [facility] Ujmmjmtjaf0444 [address] [place], [place], [id number] MUCUS, URINE 1+ {/hpf} (Normal) BACTERIA 0 [...] CLARITY Sl. Cloudy (Normal) COLOR Yellow (Normal) 77-Qfe-629919:15 Basic Metabolic Profile (BMP) Comments: 'TROP' Serial specimen #1, #2, #3, or #4: [facility] Gvpyodbsjw9[address] [place], [address] GAP 7 (Normal) Range: 5-15 [...] <126 mg/dLsuggests IMPAIRED HOMEOSTASIS per A.D.A. criteria. 93-Jqr-394896:15 BNP,B-Type NATRIURETIC PEPTIDE Comments: [facility] Lpzrwzstdi4625 [place], [address] B-TYPE HALEY PEP < 2.0 pg/mL (Normal) Range: 0-100 86-Lvi-798762:15 CBC W/Diff, Automated Comments: [facility] Lybzruhwso9902 [place], [address] MACROCYTE RARE (Normal) ANISO RARE [...] 4.2-5.4 WBC 7.0 K/mm3 (Normal) Range: 4.4-11.0 14-Jpl-167860:15 Troponin-I Comments: 'TROP' Serial specimen #1, #2, #3, or #4: [address] [place] [address] Hblsbjijkr9868 Radha Maddox[place], [place], [address] TROPONIN-I < 0.02 ng/mL (Normal) Comments: TROPONIN-I EXPECTED VALUES <0.05 NEGATIVE 0.06 - 0.59 AT RISK OF [place] > OR = 0.60 SUGGEST [place] 45-Hta-562627:15 PAP I-G w/rfx hrHPV Comments: CYTOLOGY INFORMATION:- CLINICAL INFORMATION: HYSTERECTOMY- DATE LMP/MENOPAUSE:- COLLECTION VIAL: Thin Prep Vial- DANCING INSTRUCTOR SOURCE: VAGINAL- COLLECTION TECHNIQUE: SPATULA ONLYCYTOLOGY INFORMATION:- CLINICAL IN FORMATION: HYSTERECTOMY- DATE LMP/MENOPAUSE:- COLLECTION VIAL: Thin Prep Vial- DANCING INSTRUCTOR SOURCE: VAGINAL- COLLECTION TECHNIQUE: SPATULA ONLYSpecimen Comment: [id number] Comment: No. of contai ners..01 CYTYC Thin Prep VialLabCorp (refer to report for specific site)refer to report for address and phone number HPV RFLX Comment (Normal) Comments: The HPV DNA reflex criteria were not met with this specimenresult therefore, no HPV testing was performed.Performed at: [address] [id number] Director: Che Nicole MD, Phone: [phone] PAPSMR Comment (Normal) Comments: The Pap smear [...] system. PERFORM Comment (Normal) Comments: Arminda Lopez, Merchandise Presentation Manager (ASCP) ADEQ Comment (Normal) Comments: Satisfactory for evaluation. Endocervical and/or squamous metaplasticcells (endocervical component) are present. DIAGN Comment (Normal) Comments: NEGATIVE FOR INTRAEPITHELIAL LESION AND MALIGNANCY. 71-Fbg-384802:10 Basic Metabolic Profile (BMP) Comments: [facility] Ioaceefdto3897 [place], [address] GAP 7 (Normal) Range: 5-15 CO2 28.0 [...] <126 mg/dLsuggests IMPAIRED HOMEOSTASIS per A.D.A. criteria. 5-Pjt-594938:29 BNP,B-Type NATRIURETIC PEPTIDE Comments: [facility] Hdpokfszxp8207 [place], [address] B-TYPE HALEY PEP 4.2 pg/mL (Normal) Range: 0-100 :36 Troponin I (14569) Comments: PATIENT NOT FASTINGPERFORMED BY: Invoca70 [facility] [id number] BY: Cib[address] [id number] Troponin I <0.01 ng/mL (Normal) Range: 0.00-0.04 12-Gak-125669:36 BNTP (00119) Comments: PATIENT NOT FASTINGPERFORMED BY: Invoca70 [facility] [id number] BY: [employer] [address] [id number] B-Type Natriuretic Peptide 5.5 pg/mL (Normal) Range: 0.0-100.0 :36 UPEP (44113) Comments: PATIENT NOT FASTINGPERFORMED BY: Invoca70 [facility] [id number] BY: Cib[address] [id number] Please note: SPRCS (Normal) Comments: Protein electrophoresis scan will follow via computer, mail, orcourier delivery. M-Stanley, % Not Observed % (Normal) Gamma Globulin, U 16.5 % (Normal) Beta Globulin, U 29.9 % (Normal) Jrwnd-2-Wuvujpfe, U 22.4 % (Normal) Gguzf-6-Crdktmbr, U 6.5 % (Normal) Albumin, U 24.7 % (Normal) Protein,Total,Urine 9.6 mg/dL (Normal) 60-Okn-519041:36 SPEP (90246) Comments: PATIENT NOT FASTINGPERFORMED BY: NonWoTecc Medical Copybar [facility] [id number] BY: [employer] [id number] Please note: SPRCS (Normal) Comments: Protein electrophoresis scan will follow via computer, mail, orcourier delivery. A/G Ratio 0.9 (Normal) Range: 0.7-1.7 Globulin, Total 3.6 g/dL (Normal) Range: 2.2-3.9 M-Stanley Not Observed g/dL (Normal) Gamma Globulin 1.5 g/dL (Normal) Range: 0.4-1.8 Beta Globulin 1.2 g/dL (Normal) Range: 0.7-1.3 Zldgo-0-Kmtoozay 0.7 g/dL (Normal) Range: 0.4-1.0 Kytcs-8-Ijpoumhi 0.2 g/dL (Normal) Range: 0.0-0.4 Albumin 3.4 g/dL (Normal) Range: 2.9-4.4 Protein, Total, Serum 7.0 g/dL (Normal) Range: 6.0-8.5 46-Dfb-923783:36 CCP ANTIBODY (97581) Comments: PATIENT NOT FASTINGPERFORMED BY: Maplucklin6370 [facility] [id number] BY: Cib[address] [id number] CCP Antibodies IgG/IgA 6 {units} (Normal) Range: 0-19 Comments: Negative <20 Weak positive 20 - 39 Moderate positive 40 - 59 Strong positive >59 66-Avx-705245:36 RHEUMATOID FACTOR-QUANT Comments: PATIENT NOT FASTINGPERFORMED BY: NonWoTecc MedicalChrist HospitalQqezqc43[address] [place] [address] [id number] BY: [employer] [id number] (98609) RA Latex Turbid. 14.7 {IU/mL} (Abnormal) Range: 0.0-13.9 47-Piw-993289:36 REYNALDO (ANTINUCLEAR ANTIBODY) Comments: PATIENT NOT FASTINGPERFORMED BY: LabCoMit[place] [id number] [facility] [id number] BY: [address] [id number] ([address]) REYNALDO Direct Negative (Normal) :36 SJOGREN ANTIBOIDIES Comments: PATIENT NOT FASTINGPERFORMED BY: LabDennis [place] 1426670 [facility] [id number] BY: [address] [id number] (ANTI-SS-A/ANTI-SS-B) (43625) Sjogren's Anti-SS-B <0.2 {AI} (Normal) Range: 0.0-0.9 Sjogren's Anti-SS-A <0.2 {AI} (Normal) Range: 0.0-0.9 :31 SPEP (73789) Comments: PATIENT NOT FASTINGPERFORMED BY: [place] 0152670 [facility] [id number] Please note: SPRCS (Normal) Comments: Protein electrophoresis scan will follow via computer, mail, orcourier delivery. A/G Ratio 0.9 (Normal) Range: 0.7-1.7 Globulin, Total 3.6 g/dL (Normal) Range: 2.2-3.9 M-Stanley Not Observed g/dL (Normal) Gamma Globulin 1.4 g/dL (Normal) Range: 0.4-1.8 Beta Globulin 1.2 g/dL (Normal) Range: 0.7-1.3 Knbxj-4-Vzejhtlw 0.7 g/dL (Normal) Range: 0.4-1.0 Ephqj-6-Theclend 0.3 g/dL (Normal) Range: 0.0-0.4 Albumin 3.4 g/dL (Normal) Range: 2.9-4.4 Protein, Total, Serum 7.0 g/dL (Normal) Range: 6.0-8.5 :31 UP (91786) Comments: PATIENT NOT FASTINGPERFORMED BY: [facility] Miroaa9824 [place] [id number] Please note: SPRCS (Normal) Comments: Protein electrophoresis scan will follow via computer, mail, orcourier delivery. M-Stanley, % Not Observed % (Normal) Gamma Globulin, U 18.0 % (Normal) Beta Globulin, U 32.7 % (Normal) Vgrmv-7-Wyixnodt, U 22.3 % (Normal) Bktbe-7-Wxajjhyg, U 11.7 % (Normal) Albumin, U 15.4 % (Normal) Protein,Total,Urine 5.1 mg/dL (Normal) :25 CDIFF (Molecular) Comments: [address] [place], [address] CDIFF See Note (Normal) Comments: Cdiff-MolecularC. Diff DNA Negative- No toxigenic C. Diff DNA Detected :25 ENTERIC PATHOGEN PANEL STOOL Comments: [address] [place], [address] EP PANEL See Note (Normal) [...] Detected :25 Ova and Parasites 8623 Comments: [address] [place], [address] OP See Note Comments: O + P 8623OVA AND PARASITES EXAM, ROUTINE These results were obtained using wet preparation(s) and trichrome stained smear. This test does not include testing for Crytosporidium parvum, C (Normal) yclospora, or Microsporidia. TESTING PERFORMED AT [facility]. ORIGINAL REPORT ON FILE IN LAB CONTAINS ADDITIONAL TEST SITE INFORMATION. ____ Ova/Parasite Exam NO OVA, CYSTS, OR PARASITES FOUND. 95-Gkz-729802:25 Stool Lactoferrin/WBC Comments: [address] [place], [address] ; will review on 03/19 WBCST See Note (Normal) Comments: Stool Lacto/WBCFecal WBC Lactoferrin Negative: No Fecal WBC Lactoferrin present 71-Ojs-011680:25 Stool Occult Blood iFOB Comments: [address] [place], [address] STOB See Note (Normal) Comments: STOB iFOBOccult Blood Negative :25 Amylase Comments: [address] [place], [address] RADHA 28 U/L (Normal) Range: 25-115 :25 BNP,B-Type NATRIURETIC PEPTIDE Comments: [address] [place], [address] B-TYPE HALEY PEP 3.8 pg/mL (Normal) Range: 0-100 :25 CBC W/Diff, Automated Comments: [address] [place], [address] Absolute Lymph 1.54 {X10_3/ul} (Normal) [...] 4.2-5.4 WBC 7.2 K/mm3 (Normal) Range: 4.4-11.0 46-Qnc-97400:25 Comprehensive Metabolic Profil Comments: [facility] Lseogjsgob0490 Radha [place], [place], [address] GAP 7 (Normal) Range: 5-15 CO2 30.0 [...] A.D.A. criteria. :25 D-Dimer Quantitative (DVT/PE) Comments: [facility] [address] [place], [place], [address] D-DIMER QUANT < 0.27 {FEU/ug/m} (Abnormal) Range: 0.27-0.49 Comments: NORMAL D-Dimer level (<0.50) indicates no DVT or PE. :25 Lipase Comments: [facility] [address] [place], [place], [address] LIPASE 109 U/L (Normal) Range: 73-393 :25 Lipid Profile Comments: [facility] [address] [place], [place], [address] VLDL 25 mg/dL (Normal) Range: 5-40 LDL [...] Risk :25 Thyroid Stim Hormone (TSH) Comments: [facility] Jyemgfthog7455 Rad[address] [place], [address] TSH 3.44 {uIU/mL} (Normal) Range: 0.358-3.74 :25 Vitamin D,25 Hydroxy Comments: [facility] Whbjbkknss25[address] [place], [address] Vitamin D 25-OH 24.7 ng/mL (Normal) Comments: Vitamin D 25(OH) Status Range Deficiency <20 ng/mL (50nmol/L) Insuffciency 20 - 30 ng/mL (50 - 75 nmol/L) Sufficiency 30 - 100 ng/mL (75 - 250 nmol/L) Toxicity >100 ng/mL (>250 nmol/L) 44-Ljw-398565:02 PT (Prothrobim Time) Comments: PATIENT NOT FASTINGPERFORMED BY: [facility] Pmroap2008 [facility] [id number] Information: [id number] (48745) Prothrombin Time 28.4 {sec} (Abnormal) Range: 9.1-12.0 INR 2.6 (Abnormal) Range: 0.8-1.2 Comments: Reference interval is for non-anticoagulated patients. . Suggested INR therapeutic range for Vitamin K anta gonist therapy: Standard Dose (moderate intensity therapeutic range): 2.0 - 3.0 Higher intensity therapeutic range 2.5 - 3.5 1-Utu-228802:45 PAP I-G w/rfx hrHPV Comments: CYTOLOGY INFORMATION:- CLINICAL INFORMATION: [g PTHCLINFO]- DATE LMP/MENOPAUSE: [] [g PTHLMPMEN]- COLLECTION VIAL: Thin Prep Vial- DANCING INSTRUCTOR SOURCE: [g PTHGYNSRC]- COLLECTION TECHNIQUE: [g PTHCOL LECT]Specime n Comment: [id number] Comment: No. of containers..01 CYTYC Thin Prep VialTest performed at:[facility] Vkkxlkvtzi5[address] [place] [address] HPV RFLX Comment (Normal) Comments: The HPV DNA reflex criteria were not met with this specimenresult therefore, no HPV testing was performed.Performed at: [address] [id number] Director: Jesse Alejo MD, Phone: [phone] PAPSMR Comment (Normal) Comments: The Pap smear [...] system. PERFORM Comment (Normal) Comments: Alfa Sanchez, Merchandise Presentation Manager (ASCP) ADEQ Comment (Normal) Comments: Satisfactory for evaluation. No endocervical component is identified. DIAGN Comment (Normal) Comments: NEGATIVE FOR INTRAEPITHELIAL LESION AND MALIGNANCY. 28-Dec-20140:23 Urinalysis, Complete Comments: Order Date: 12/28/14How was Urine Obtained? SCHOOL TRAFFIC GUARD TO SPECIFYTest performed at:[facility] Ycwdavxdzt84[address] [place], [place] [address] MUCUS, URINE 1+ {/hpf} (Normal) BACTERIA 0 [...] Urine Drug Screen (VISTA) Comments: Test performed at:[facility] [address] [place], [place] [address] THC NEGATIVE (Normal) PCP NEGATIVE (Normal) OPIATES [...] TESTING MUST BE ORDERED SEPARATELY. USE TESTMNEMONIC: [facility] :15 Alcohol, Blood (Medical)-Serum Comments: Test performed at:[facility] [address] [place] [address] SERUM ETOH 10.0 mg/dL (Normal) Comments: The serum:whole blood ethanol ratio is approximately 1.14and varies slightly with hematocrit.Medical Alcohol reference interval and critical value innon-tolerant individuals; 50 - 100 Impairment 100 Intoxication 100 - 250 Severe Poisoning 250 - 400 Deep/possible fatal coma :15 Basic Metabolic Profile (BMP) Comments: Test performed at:[facility] Qaktpjhoqq3028 [facility] [place] [address] GAP 10 (Normal) Range: 5-15 [...] 28-Dec-20140:15 CBC W/Diff, Automated Comments: Test performed at:[facility] Djqbheopug5695 Radha [place], [place] [address] Absolute Lymph 3.11 {X10_3/ul} (Normal) Range: 0.83-4.51 [...] 4.4-11.0 :15 ,Serum,hCG Quali. Comments: Test performed at:[facility] Efunkgqevl2269 [facility] [place], [place] [address] HCGSQUAL NEGATIVE {Negative} (Normal) Range: 0-9 Nonpreg HCG Qual triggr 4 m[iU]/mL (Normal) 34-Doj-311227:55 Urine Drug Screen (VISTA) Comments: Test performed at:[facility] [address] [place] [address] THC NEGATIVE (Normal) PCP NEGATIVE [...] MUST BE ORDERED SEPARATELY. USE TESTMNEMONIC: [facility] 60-Ulg-708731:05 Alcohol, Blood (Medical)-Serum Comments: Test performed at:[facility] Wgsnxjvlia0635 [facility] [place] [address] SERUM ETOH < 3.0 mg/dL (Normal) Comments: The serum:whole blood ethanol ratio is approximately 1.14and varies slightly with hematocrit.Medical Alcohol reference interval and critical value innon-tolerant individuals; 50 - 100 Impairment 100 Intoxication 100 - 250 Severe Poisoning 250 - 400 Deep/possible fatal coma 17-Iqt-864660:05 Basic Metabolic Profile (BMP) Comments: Test performed at:[facility] [place] [facility] [address] [place], [place] [id number] GAP 9 (Normal) Range: 5-15 CO2 25.0 [...] <126 mg/dLsuggests IMPAIRED HOMEOSTASIS per A.D.A. criteria. 26-Tce-837068:05 CBC W/Diff, Automated Comments: Test performed at:[facility] [place] [facility] [address] [place] [address] Absolute Lymph 2.66 {X10_3/ul} (Normal) Range: [...] :15 Alcohol, Blood (Medical)-Serum Comments: Test performed at:[facility] [place] [facility] [address] [place] [address] SERUM ETOH < 3.0 mg/dL (Normal) Comments: The serum:whole blood ethanol ratio is approximately 1.14and varies slightly with hematocrit.Medical Alcohol reference interval and critical value innon-tolerant individuals; 50 - 100 Impairment 100 Intoxication 100 - 250 Severe Poisoning 250 - 400 Deep/possible fatal coma 29-Oct-20141:15 Basic Metabolic Profile (BMP) Comments: Test performed at:[facility] [place] [facility] [address] [facility] [place], [place] [address] GAP 6 (Normal) Range: 5-15 CO2 25.0 [...] :15 CBC W/Diff, Automated Comments: Test performed at:[facility] [place] [facility] [address] [facility] [place] [address] Absolute Lymph 2.65 {X10_3/ul} (Normal) [...] 4.4-11.0 :15 ,Serum,hCG Quali. Comments: Test performed at:[facility] [place] [facility] [address] [facility] [place], [place] [address] HCGSQUAL NEGATIVE {Negative} (Normal) Range: 0-9 Nonpreg HCG Qual triggr 4 m[iU]/mL (Normal) :15 Urine Drug Screen (VISTA) Comments: Test performed at:[facility] [place] [facility] [address] [place] [address] THC NEGATIVE (Normal) PCP NEGATIVE [...] MUST BE ORDERED SEPARATELY. USE TESTMNEMONIC: UTCA 49-Kmc-173131:32 Rapid Flu (03526 x 2) Influenza A Ag Negitive A and B (Normal) 77-Klq-51162:56 ,Serum,hCG Quali. Comments: Test performed at:[facility] [place] [facility] [address] [place] [address] HCGSQUAL NEGATIVE {Negative} (Normal) Range: 0-9 Nonpreg HCG Qual triggr 3 m[iU]/mL (Normal) :01 CBC W/Diff, Automated Comments: Test performed at:[facility] [place] [facility] [address] [place] [address] Absolute Lymph 2.32 {X10_3/ul} (Normal) [...] :01 Comprehensive Metabolic Profil Comments: Test performed at:[facility] [place] [facility] [address], [place] [id number] GAP 6 (Normal) Range: 5-15 CO2 29.0 [...] 126 mg/dLsuggests DIABETES MELLITUS per A.D.A. criteria. 62-Mvw-19465:01 Prothrombin Time w/INR Comments: Test performed at:[facility] [place] [facility] [address] [place] [address] INR 1.1 (Normal) PROTIME 14.7 s (Normal) Range: 11.7-14.9 27-Nhz-079582:36 PT (Prothrobim Time) Comments: PATIENT NOT FASTINGPERFORMED BY: [facility] Uzhulf4528 [facility] [id number] Information: [id number] ([id number]) Prothrombin Time 10.0 {sec} (Normal) Range: 9.1-12.0 INR 0.9 (Normal) Range: 0.8-1.2 Comments: Reference interval is for non-anticoagulated patients. . Suggested INR therapeutic range for Vitamin K anta gonist therapy: Standard Dose (moderate intensity therapeutic range): 2.0 - 3.0 Higher intensity therapeutic range 2.5 - 3.5 5-Lcd-341484:20 Basic Metabolic Profile (BMP) Comments: 'TROP' Serial specimen #1, #2, #3, or #4: 1Test performed at:[facility] [place] [facility] [address] [place] [address] GAP 4 (Abnormal) Range: 5-15 [...] 7-18 GLU 97 mg/dL (Normal) Range: 70-110 2-Tvs-602436:20 CBC W/Diff, Automated Comments: Test performed at:[facility] [place] [facility] [address] [place], [place] [address] Absolute Lymph 2.54 {X10_3/ul} (Normal) Range: 0.83-4.51 [...] 4.2-5.4 WBC 9.5 K/mm3 (Normal) Range: 4.4-11.0 0-Ayf-533251:20 Troponin-I Comments: 'TROP' Serial specimen #1, #2, #3, or #4: 1Test performed at:[facility] [place] [facility] [address] [place] [address] TROPONIN-I < 0.02 ng/mL (Normal) Comments: TROPONIN-I EXPECTED VALUES <0.05 NEGATIVE 0.06 - 0.59 AT RISK OF [place] > OR = 0.60 SUGGEST [place] 75-Pxt-871414:42 PT (Prothrobim Time) Comments: PATIENT NOT FASTINGPERFORMED BY: [place] [id number] [facility] [id number] Information: [id number] ([id number]) Prothrombin Time 23.6 {sec} (Abnormal) Range: 9.1-12.0 INR 2.2 (Abnormal) Range: 0.8-1.2 Comments: Reference interval is for non-anticoagulated patients. . Suggested INR therapeutic range for Vitamin K anta gonist therapy: Standard Dose (moderate intensity therapeutic range): 2.0 - 3.0 Higher intensity therapeutic range 2.5 - 3.5 90-Uot-166214:18 PT (Prothrobim Time) Comments: PATIENT NOT FASTINGPERFORMED BY: [facility]6370 [facility] [id number] Information: [id number] ([id number]) Prothrombin Time 31.8 {sec} (Abnormal) Range: 9.1-12.0 INR 2.9 (Abnormal) Range: 0.8-1.2 Comments: Reference interval is for non-anticoagulated patients. . Suggested INR therapeutic range for Vitamin K anta gonist therapy: Standard Dose (moderate intensity therapeutic range): 2.0 - 3.0 Higher intensity therapeutic range 2.5 - 3.5 :31 PT (Prothrobim Time) Comments: PATIENT NOT FASTINGPERFORMED BY: [facility]6370 [facility] [id number] Information: [id number] ([id number]) Prothrombin Time 20.7 {sec} (Abnormal) Range: 9.1-12.0 INR 1.9 (Abnormal) Range: 0.8-1.2 Comments: Reference interval is for non-anticoagulated patients. . Suggested INR therapeutic range for Vitamin K anta gonist therapy: Standard Dose (moderate intensity therapeutic range): 2.0 - 3.0 Higher intensity therapeutic range 2.5 - 3.5 :40 PT (Prothrobim Time) Comments: PATIENT NOT FASTINGPERFORMED BY: [facility]6370 [facility] [id number] Information: [id number] ([id number]) Prothrombin Time 14.8 {sec} (Abnormal) Range: 9.1-12.0 INR 1.4 (Abnormal) Range: 0.8-1.2 Comments: Reference interval is for non-anticoagulated patients. . Suggested INR therapeutic range for Vitamin K anta gonist therapy: Standard Dose (moderate intensity therapeutic range): 2.0 - 3.0 Higher intensity therapeutic range 2.5 - 3.5 :25 PT (Prothrobim Time) Comments: PATIENT NOT FASTINGPERFORMED BY: [facility]6370 [facility] [id number] Information: [id number] ([id number]) Prothrombin Time 13.2 {sec} (Abnormal) Range: 9.1-12.0 INR 1.2 (Normal) Range: 0.8-1.2 Comments: Reference interval is for non-anticoagulated patients. . Suggested INR therapeutic range for Vitamin K anta gonist therapy: Standard Dose (moderate intensity therapeutic range): 2.0 - 3.0 Higher intensity therapeutic range 2.5 - 3.5 :20 PT (Prothrobim Time) Comments: PATIENT NOT FASTINGPERFORMED BY: [address] Cameron StreetDublin [place] [id number] Information: [id number] ([id number]) Prothrombin Time 31.6 {sec} (Abnormal) Range: 9.1-12.0 INR 2.9 (Abnormal) Range: 0.8-1.2 Comments: Reference interval is for non-anticoagulated patients. . Suggested INR therapeutic range for Vitamin K anta gonist therapy: Standard Dose (moderate intensity therapeutic range): 2.0 - 3.0 Higher intensity therapeutic range 2.5 - 3.5 4-Gzr-507789:39 PT (Prothrobim Time) Comments: PATIENT NOT FASTINGPERFORMED BY: [place] [address] [facility] [id number] Information: [id number] ([id number]) Prothrombin Time 11.9 {sec} (Normal) Range: 9.1-12.0 INR 1.1 (Normal) Range: 0.8-1.2 Comments: Reference interval is for non-anticoagulated patients. . Suggested INR therapeutic range for Vitamin K anta gonist therapy: Standard Dose (moderate intensity therapeutic range): 2.0 - 3.0 Higher intensity therapeutic range 2.5 - 3.5 :31 PT (Prothrobim Time) Comments: PATIENT NOT FASTINGPERFORMED BY: [place] [address] [facility] [id number] Information: [id number] ([id number]) Prothrombin Time 23.5 {sec} (Abnormal) Range: 9.1-12.0 INR 2.2 (Abnormal) Range: 0.8-1.2 Comments: Reference interval is for non-anticoagulated patients. . Suggested INR therapeutic range for Vitamin K anta gonist therapy: Standard Dose (moderate intensity therapeutic range): 2.0 - 3.0 Higher intensity therapeutic range 2.5 - 3.5 81-Csb-200779:38 PT (Prothrobim Time) Comments: PATIENT NOT FASTINGPERFORMED BY: [place] [address] [facility] [id number] Information: [id number] ([id number]) Prothrombin Time 22.9 {sec} (Abnormal) Range: 9.1-12.0 INR 2.1 (Abnormal) Range: 0.8-1.2 Comments: Reference interval is for non-anticoagulated patients. . Suggested INR therapeutic range for Vitamin K anta gonist therapy: Standard Dose (moderate intensity therapeutic range): 2.0 - 3.0 Higher intensity therapeutic range 2.5 - 3.5 :16 PT (Prothrobim Time) Comments: PATIENT NOT FASTINGPERFORMED BY: [place] [address] [facility] [id number] Information: [id number] ([id number]) Prothrombin Time 36.6 {sec} (Abnormal) Range: 9.1-12.0 INR 3.3 (Abnormal) Range: 0.8-1.2 Comments: Reference interval is for non-anticoagulated patients. . Suggested INR therapeutic range for Vitamin K anta gonist therapy: Standard Dose (moderate intensity therapeutic range): 2.0 - 3.0 Higher intensity therapeutic range 2.5 - 3.5 :14 PT (Prothrobim Time) Comments: PATIENT NOT FASTINGPERFORMED BY: [facility]6370 [facility] [id number] Information: [id number] ([id number]) Prothrombin Time 28.3 {sec} (Abnormal) Range: 9.1-12.0 INR 2.7 (Abnormal) Range: 0.8-1.2 Comments: Reference interval is for non-anticoagulated patients. . Suggested INR therapeutic range for Vitamin K anta gonist therapy: Standard Dose (moderate intensity therapeutic range): 2.0 - 3.0 Higher intensity therapeutic range 2.5 - 3.5 :13 HgA1C , Office (00781) HgA1C , Office 5.9 % (Normal) Range: 4.6 - 7.1 :13 Blood Glucose , Office (84372) Blood Glucose , Office 144 (Normal) :54 PT (Prothrobim Time) Comments: STANDING ORDER; PATIENT NOT FASTINGPERFORMED BY: [facility]6370 [facility] [id number] Information: [id number] ([id number]) Prothrombin Time 31.0 {sec} (Abnormal) Range: 9.1-12.0 INR 3.0 (Abnormal) Range: 0.8-1.2 Comments: Reference interval is for non-anticoagulated patients. . Suggested INR therapeutic range for Vitamin K anta gonist therapy: Standard Dose (moderate intensity therapeutic range): 2.0 - 3.0 Higher intensity therapeutic range 2.5 - 3.5 12-Zua-379088:13 PT (Prothrobim Time) Comments: PATIENT NOT FASTINGPERFORMED BY: [facility]6370 [facility] [id number] Information: [id number] ([id number]) Prothrombin Time 29.0 {sec} (Abnormal) Range: 9.1-12.0 INR 2.8 (Abnormal) Range: 0.8-1.2 Comments: Reference interval is for non-anticoagulated patients. . Suggested INR therapeutic range for Vitamin K anta gonist therapy: Standard Dose (moderate intensity therapeutic range): 2.0 - 3.0 Higher intensity therapeutic range 2.5 - 3.5 :57 PT (Prothrobim Time) Comments: PATIENT NOT FASTINGPERFORMED BY: [place] [address] [facility] [id number] Information: [id number] ([id number]) Prothrombin Time 42.7 {sec} (Abnormal) Range: 9.1-12.0 INR 4.1 (Abnormal) Range: 0.8-1.2 Comments: Client Requested Flag Reference interval is for non- anticoagulated patients. . Suggested INR therapeutic ra nge for Vitamin K antagonist therapy: Standard Dose (moderate intensity therapeutic range): 2.0 - 3.0 Higher intensity therapeutic range 2.5 - 3.5 :00 PT (Prothrobim Time) Comments: PATIENT NOT FASTINGPERFORMED BY: [facility]6370 [facility] [id number] Information: [id number] (35231) Prothrombin Time 13.4 {sec} (Abnormal) Range: 9.1-12.0 INR 1.3 (Abnormal) Range: 0.8-1.2 Comments: Reference interval is for non-anticoagulated patients. . Suggested INR therapeutic range for Vitamin K anta gonist therapy: Standard Dose (moderate intensity therapeutic range): 2.0 - 3.0 Higher intensity therapeutic range 2.5 - 3.5 :43 PT (Prothrobim Time) Comments: PATIENT NOT FASTINGPERFORMED BY: [place] [address] [facility] [id number] Information: [id number] ([id number]) Prothrombin Time 18.4 {sec} (Abnormal) Range: 9.1-12.0 INR 1.8 (Abnormal) Range: 0.8-1.2 Comments: Reference interval is for non-anticoagulated patients. . Suggested INR therapeutic range for Vitamin K anta gonist therapy: Standard Dose (moderate intensity therapeutic range): 2.0 - 3.0 Higher intensity therapeutic range 2.5 - 3.5 :31 PT (Prothrobim Time) Comments: PATIENT NOT FASTINGPERFORMED BY: [facility]6370 [facility] [id number] Information: [id number] ([id number]) Prothrombin Time 19.8 {sec} (Abnormal) Range: 9.1-12.0 INR 1.9 (Abnormal) Range: 0.8-1.2 Comments: Reference interval is for non-anticoagulated patients. . Suggested INR therapeutic range for Vitamin K anta gonist therapy: Standard Dose (moderate intensity therapeutic range): 2.0 - 3.0 Higher intensity therapeutic range 2.5 - 3.5 :15 PT (Prothrobim Time) Comments: PATIENT NOT FASTINGPERFORMED BY: [facility]6370 [facility] [id number] Information: [id number] ([id number]) Prothrombin Time 22.4 {sec} (Abnormal) Range: 9.1-12.0 INR 2.2 (Abnormal) Range: 0.8-1.2 Comments: Reference interval is for non-anticoagulated patients. . Suggested INR therapeutic range for Vitamin K anta gonist therapy: Standard Dose (moderate intensity therapeutic range): 2.0 - 3.0 Higher intensity therapeutic range 2.5 - 3.5 :40 PT (Prothrobim Time) Comments: STANDING ORDER; PATIENT NOT FASTINGPERFORMED BY: [facility]6370 [facility] [id number] Information: [id number] ([id number]) Prothrombin Time 22.1 {sec} (Abnormal) Range: 9.1-12.0 INR 2.1 (Abnormal) Range: 0.8-1.2 Comments: Reference interval is for non-anticoagulated patients. . Suggested INR therapeutic range for Vitamin K anta gonist therapy: Standard Dose (moderate intensity therapeutic range): 2.0 - 3.0 Higher intensity therapeutic range 2.5 - 3.5 :04 PT (Prothrobim Time) Comments: PATIENT NOT FASTINGPERFORMED BY: [place] [address] [facility] [id number] Information: [id number] ([id number]) Prothrombin Time 41.7 {sec} (Abnormal) Range: 9.1-12.0 INR 4.0 (Abnormal) Range: 0.8-1.2 Comments: Client Requested Flag Reference interval is for non- anticoagulated patients. . Suggested INR therapeutic ra nge for Vitamin K antagonist therapy: Standard Dose (moderate intensity therapeutic range): 2.0 - 3.0 Higher intensity therapeutic range 2.5 - 3.5 :27 PT (Prothrobim Time) Comments: STANDING ORDER; PATIENT NOT FASTINGPERFORMED BY: [facility]6370 [facility] [id number] Information: [id number] ([id number]) Prothrombin Time 34.2 {sec} (Abnormal) Range: 9.1-12.0 INR 3.3 (Abnormal) Range: 0.8-1.2 Comments: Reference interval is for non-anticoagulated patients. . Suggested INR therapeutic range for Vitamin K anta gonist therapy: Standard Dose (moderate intensity therapeutic range): 2.0 - 3.0 Higher intensity therapeutic range 2.5 - 3.5 :36 Prothrombin Time (PT) Comments: PATIENT WAS FASTINGPERFORMED BY: [facility]6[address] [facility] [id number] Prothrombin Time 28.4 {sec} (Abnormal) Range: 9.1-12.0 INR 2.7 (Abnormal) Range: 0.8-1.2 Comments: Reference interval is for non-anticoagulated patients. . Suggested INR therapeutic range for Vitamin K anta gonist therapy: Standard Dose (moderate intensity therapeutic range): 2.0 - 3.0 Higher intensity therapeutic range 2.5 - 3.5 :15 PT (Prothrobim Time) Comments: STANDING ORDER; PATIENT NOT FASTINGPERFORMED BY: [place] [address] [facility] [id number] Information: [id number] ([id number]) Prothrombin Time 40.5 {sec} (Abnormal) Range: 9.1-12.0 INR 3.9 (Abnormal) Range: 0.8-1.2 Comments: Client Requested Flag Reference interval is for non- anticoagulated patients. . Suggested INR therapeutic ra nge for Vitamin K antagonist therapy: Standard Dose (moderate intensity therapeutic range): 2.0 - 3.0 Higher intensity therapeutic range 2.5 - 3.5 :48 PT (Prothrobim Time) Comments: STANDING ORDER; PATIENT NOT FASTINGPERFORMED BY: [facility]6370 [facility] [id number] Information: [id number] ([id number]) Prothrombin Time 28.8 {sec} (Abnormal) Range: 9.1-12.0 INR 2.8 (Abnormal) Range: 0.8-1.2 Comments: Reference interval is for non-anticoagulated patients. . Suggested INR therapeutic range for Vitamin K anta gonist therapy: Standard Dose (moderate intensity therapeutic range): 2.0 - 3.0 Higher intensity therapeutic range 2.5 - 3.5 :29 PT (Prothrobim Time) Comments: STANDING ORDER; PATIENT NOT FASTINGPERFORMED BY: [place] [address] [facility] [id number] Information: [id number] ([id number]) Prothrombin Time 14.0 {sec} (Abnormal) Range: 9.1-12.0 INR 1.3 (Abnormal) Range: 0.8-1.2 Comments: Reference interval is for non-anticoagulated patients. . Suggested INR therapeutic range for Vitamin K anta gonist therapy: Standard Dose (moderate intensity therapeutic range): 2.0 - 3.0 Higher intensity therapeutic range 2.5 - 3.5 :14 PT (Prothrobim Time) (15853) Comments: Order Date: 02/20/13OV Order #: [id number] ID: [id number]: 453.42 - DVT (453.42) INR 2.6 (Normal) PTP 26.2 s (Abnormal) Range: 11.9-14.4 :48 PT (Prothrobim Time) Comments: STANDING ORDER; PATIENT NOT FASTINGPERFORMED BY: GL 2ours Xjryiy5823 [facility] [id number] Information: [id number] ([id number]) Prothrombin Time 25.7 {sec} (Abnormal) Range: 9.1-12.0 INR 2.5 (Abnormal) Range: 0.8-1.2 Comments: Reference interval is for non-anticoagulated patients. . Suggested INR therapeutic range for Vitamin K anta gonist therapy: Standard Dose (moderate intensity therapeutic range): 2.0 - 3.0 Higher intensity therapeutic range 2.5 - 3.5 1-Yrj-108858:40 Urinalysis, Office (83721) UA - BILIRUBIN Negative (Normal) UA - [...] (Prothrobim Time) Comments: PATIENT NOT FASTINGPERFORMED BY: [facility] [id number] Information: [id number] (08591) Prothrombin Time 39.8 {sec} (Abnormal) Range: 9.1-12.0 INR 3.8 (Abnormal) Range: 0.8-1.2 Comments: Client Requested Flag Reference interval is for non- anticoagulated patients. . Suggested INR therapeutic ra nge for Vitamin K antagonist therapy: Standard Dose (moderate intensity therapeutic range): 2.0 - 3.0 Higher intensity therapeutic range 2.5 - 3.5 60-Eso-677014:34 Aerobic Bacterial Culture Comments: PERFORMED BY: [address] [id number] Information: SRC: Result 1 Mixed skin irais (Normal) Aerobic Bacterial Culture Final report (Normal) 63-Xsg-520046:31 Metabolic Panel, Basic Comments: PATIENT NOT FASTINGPERFORMED BY: [place] [address] [facility] [id number] Information: [id number] ([id number]) Calcium, Serum 9.3 mg/dL (Normal) Range: 8.7-10.2 [...] Glucose, Serum 95 mg/dL (Normal) Range: 65-99 2-Epc-054212:28 PT (Prothrobim Time) Comments: PATIENT NOT FASTINGPERFORMED BY: [place] [address]26[address] [facility] [id number] Information: [id number] ([id number]) Prothrombin Time 42.0 {sec} (Abnormal) Range: 9.1-12.0 INR 4.1 (Abnormal) Range: 0.8-1.2 Comments: Client Requested Flag Reference interval is for non- anticoagulated patients. . Suggested INR therapeutic ra nge for Vitamin K antagonist therapy: Standard Dose (moderate intensity therapeutic range): 2.0 - 3.0 Higher intensity therapeutic range 2.5 - 3.5 48-Nmb-847999:42 PT INR 2.2 (Normal) PTP 23.1 s (Abnormal) Range: 11.9-14.4 85-Mvy-021710:00 PT (Prothrobim Time) Comments: PATIENT NOT FASTINGPERFORMED BY: [address] [id number] Information: [id number] (84925) Prothrombin Time 34.7 {sec} (Abnormal) Range: 9.1-12.0 INR 3.3 (Abnormal) Range: 0.8-1.2 Comments: Reference interval is for non-anticoagulated patients. . Suggested INR therapeutic range for Vitamin K anta gonist therapy: Standard Dose (moderate intensity therapeutic range): 2.0 - 3.0 Higher intensity therapeutic range 2.5 - 3.5 :09 PT (Prothrobim Time) Comments: PATIENT NOT FASTINGPERFORMED BY: [place] [address]26[address] [facility] [id number] Information: [id number] (11222) Prothrombin Time 23.6 {sec} (Abnormal) Range: 9.1-12.0 INR 2.3 (Abnormal) Range: 0.8-1.2 Comments: Reference interval is for non-anticoagulated patients. . Suggested INR therapeutic range for Vitamin K anta gonist therapy: Standard Dose (moderate intensity therapeutic range): 2.0 - 3.0 Higher intensity therapeutic range 2.5 - 3.5 39-Iea-195303:25 PT (Prothrobim Time) Comments: PATIENT NOT FASTINGPERFORMED BY: [facility] [id number] Information: [id number] (34649) Prothrombin Time 11.9 {sec} (Normal) Range: 9.1-12.0 INR 1.1 (Normal) Range: 0.8-1.2 Comments: Reference interval is for non-anticoagulated patients. . Suggested INR therapeutic range for Vitamin K anta gonist therapy: Standard Dose (moderate intensity therapeutic range): 2.0 - 3.0 Higher intensity therapeutic range 2.5 - 3.5 43-Sdk-01254:39 AORTA Radiology Report See Note (Normal) Comments: [...] Adame M.D.November 22, 2012 at 9:42:03 AM [id number] Signed GP/GP If you are the referring physician and would like to consult with theradiologist who provided this interpretation , please contact Anoop Dumont at [phone]. If this radiologist is unavailable, youwill be directed to another radiologist to assist. If you are a patient with a question regarding this re port, pleasecontactyour referring physician directly. Professional Interpretation Provided By: [employer], Phone , These documents contain legally protected [...] 11/22/1246 Sign by: ____ Jaxon Adame MD 34-Oep-536124:11 PT (Prothrobim Time) (02104) Comments: PATIENT NOT FASTINGPERFORMED BY: [facility]tuuqb0373 [facility] [id number] Prothrombin Time 14.9 {sec} (Abnormal) Range: 9.1-12.0 INR 1.4 (Abnormal) Range: 0.8-1.2 Comments: Reference interval is for non-anticoagulated patients. . Suggested INR therapeutic range for Vitamin K anta gonist therapy: Standard Dose (moderate intensity therapeutic range): 2.0 - 3.0 Higher intensity therapeutic range 2.5 - 3.5 45-Ndf-47422:37 BRAIN W/WO CONTRAST Radiology Report See Note [...] Maki M.D.October 17, 2012 at 11:30:50 PM [id number] Signed AH/AH If you are the referring physician and would like to consult with theradiologist who provided this interpretation, please contact Fidelia alejandra M.D. at . If this radiologist is unavailable,you will be directed to another radiologist to assist. If you are a patient with a question regarding this report, pleasecontactyour referr ing physician directly. Professional Interpretation Provided By: [employer], Phone , These documents contain legally protected [...] on 10/17/122337 Sign by: DEANGELO MAKI MD 4-Brw-549404:27 HgA1C , Office (13539) HgA1C , Office 5.8 % (Normal) Range: 4.6 - 7.1 6-Jwy-867048:23 PELVIC (NON ) Radiology Report See Note [...] Adame M.D.October 03, 2012 at 3:27:29 PM [id number] Signed GP/GP If you are the referring physician and would li ke to consult with theradiologist who provided this interpretation, please contact Anoop Dumont at [phone]. If this radiologist is unavailable, youwill be directed to another radiologist to assist. If you are a patient with a question regarding this report, pleasecontactyour referring physician directly. Professional Interpretation Provided By: [employer], Phone ,Fax These documents contain legally protected [...] Adame M.D.October 03, 2012 at 3:27:29 PM [id number] Signed GP/GP If you are the referring physician and would li ke to consult with theradiologist who provided this interpretation, please contact Anoop Dumont at [phone]. If this radiologist is unavailable, youwill be directed to another radiologist to assist. If you are a patient with a question regarding this report, pleasecontactyour referring physician directly. Professional Interpretation Provided By: [facility], Phone ,Fax These documents contain legally protected [...] Mayberry M.D.September 30, 2012 at 7:30:49 PM [id number] Sig vadim TT/TT If you are the referring physician and would like to consult with theradiologist who provided this interpretation, please contact Kym Foley M.D. at [phone]. If this radiologist is unavailable, youwillbe directed to another radiologist to assist. If you are a patient with a question regarding this report, pleasecontactyour referring physician directly. Professional Interpretation Provided By: [facility], Phone , These documents contain legally protected [...] on 09/30/121938 Sign by: Kym Mayberry MD 93-Vis-451533:49 PT (Prothrobim Time) Comments: PATIENT NOT FASTINGPERFORMED BY: [facility]zuqcp[facility]34 [facility] [id number] Information: [id number] (48413) Prothrombin Time 14.2 {sec} (Abnormal) Range: 9.1-12.0 INR 1.4 (Abnormal) Range: 0.8-1.2 Comments: Reference interval is for non-anticoagulated patients. . Suggested INR therapeutic range for Vitamin K anta gonist therapy: Standard Dose (moderate intensity therapeutic range): 2.0 - 3.0 Higher intensity therapeutic range 2.5 - 3.5 5-Qhq-209625:22 PT (Prothrobim Time) Comments: PATIENT NOT FASTINGPERFORMED BY: [facility] [id number] Information: [id number] ([id number]) Prothrombin Time 30.3 {sec} (Abnormal) Range: 9.1-12.0 INR 3.0 (Abnormal) Range: 0.8-1.2 Comments: Reference interval is for non-anticoagulated patients. . Suggested INR therapeutic range for Vitamin K anta gonist therapy: Standard Dose (moderate intensity therapeutic range): 2.0 - 3.0 Higher intensity therapeutic range 2.5 - 3.5 :01 PTT (ACTIVATED PARTIAL Comments: PATIENT NOT FASTINGPERFORMED BY: [facility] [id number] THROMBOPLASTIN TIME) (15210) aPTT 46 {sec} (Abnormal) Range: 24-33 Comments: This test has not been validated for monitoring unfractionated heparintherapy. aPTT-based therapeutic ranges for unfractionated heparintherapy have not been established. For general guidelines onHeparin monitoring, refer to the [facility] Directory of Services. :01 PT (PROTHROMBIN TIME) (75378) Comments: PATIENT NOT FASTINGPERFORMED BY: [facility] [id number] Prothrombin Time 33.5 {sec} (Abnormal) Range: 9.1-12.0 INR 3.3 (Abnormal) Range: 0.8-1.2 Comments: Reference interval is for non-anticoagulated patients. . Suggested INR therapeutic range for Vitamin K anta gonist therapy: Standard Dose (moderate intensity therapeutic range): 2.0 - 3.0 Higher intensity therapeutic range 2.5 - 3.5 : PROLACTIN (88232) Comments: PATIENT NOT FASTINGPERFORMED BY: [facility]Zdkjwm6402 [facility] [id number] Prolactin 26.7 ng/mL (Abnormal) Range: 4.8-23.3 :01 METABOLIC PANEL, Comments: PATIENT NOT FASTINGPERFORMED BY: [facility] HospitalSvgdif3848 [facility] [id number] Information: [id number] COMPREHENSIVE (98729) ALT (SGPT) 34 [iU]/L (Abnormal) Range: 0-32 [...] 107 mg/dL (Abnormal) Range: 65-99 :01 TSH (35548) Comments: PATIENT NOT FASTINGPERFORMED BY: [place] 0152670 [facility] [id number] TSH 3.350 {uIU/mL} (Normal) Range: 0.450-4.500 :01 CBC (AUTO) (22254) Comments: PATIENT NOT FASTINGPERFORMED BY: [address] [id number] Platelets 235 {x10E3/uL} (Normal) Range: 140-415 RDW 13.7 % (Normal) Range: 12.3-15.4 MCHC 32.4 g/dL (Normal) Range: 31.5-35.7 MCH 29.8 pg (Normal) Range: 26.6-33.0 MCV 92 fL (Normal) Range: 79-97 Hematocrit 39.5 % (Normal) Range: 34.0-46.6 Hemoglobin 12.8 g/dL (Normal) Range: 11.1-15.9 RBC 4.30 {x10E6/uL} (Normal) Range: 3.77-5.28 WBC 5.4 {x10E3/uL} (Normal) Range: 4.0-10.5 :01 TEST - SERUM Comments: PATIENT NOT FASTINGPERFORMED BY: [address] [id number] QUANTITATIVE (HCG) (24587) hCG,Beta Subunit,Qual,Serum Negative m[iU]/mL (Normal) 50-Uet-338908:40 Prothrombin Time (PT) Comments: PERFORMED BY: [address] [id number] Prothrombin Time 23.2 {sec} (Abnormal) Range: 9.1-12.0 INR 2.2 (Abnormal) Range: 0.8-1.2 Comments: Reference interval is for non-anticoagulated patients. . Suggested INR therapeutic range for Vitamin K anta gonist therapy: Standard Dose (moderate intensity therapeutic range): 2.0 - 3.0 Higher intensity therapeutic range 2.5 - 3.5 9-Dji-347759:02 PT (Prothrobim Time) Comments: PATIENT NOT FASTINGPERFORMED BY: [address] StreetDublin [place] [id number] Information: [id number] (26384) Prothrombin Time 42.1 {sec} (Abnormal) Range: 9.1-12.0 INR 4.1 (Abnormal) Range: 0.8-1.2 Comments: Client Requested Flag Reference interval is for non- anticoagulated patients. . Suggested INR therapeutic ra nge for Vitamin K antagonist therapy: Standard Dose (moderate intensity therapeutic range): 2.0 - 3.0 Higher intensity therapeutic range 2.5 - 3.5 41-Mlq-821679:23 PT (Prothrobim Time) Comments: PATIENT NOT FASTINGPERFORMED BY: [place] 0152670 [facility] [id number] Information: [id number] (94022) Prothrombin Time 13.8 {sec} (Abnormal) Range: 9.1-12.0 INR 1.3 (Abnormal) Range: 0.8-1.2 Comments: Reference interval is for non-anticoagulated patients. . Suggested INR therapeutic range for Vitamin K anta gonist therapy: Standard Dose (moderate intensity therapeutic range): 2.0 - 3.0 Higher intensity therapeutic range 2.5 - 3.5 73-Dmu-818560:29 PT (Prothrobim Time) Comments: PATIENT NOT FASTINGPERFORMED BY: [place] 0152670 [facility] [id number] Information: [id number] ([id number]) Prothrombin Time 13.1 {sec} (Abnormal) Range: 9.1-12.0 INR 1.2 (Normal) Range: 0.8-1.2 Comments: Reference interval is for non-anticoagulated patients. . Suggested INR therapeutic range for Vitamin K anta gonist therapy: Standard Dose (moderate intensity therapeutic range): 2.0 - 3.0 Higher intensity therapeutic range 2.5 - 3.5 71-Yxp-589741:10 PT (Prothrobim Time) Comments: PATIENT NOT FASTINGPERFORMED BY: [place] [address]2670 [facility] [id number] Information: [id number] (28411) Prothrombin Time 15.3 {sec} (Abnormal) Range: 9.1-12.0 INR 1.5 (Abnormal) Range: 0.8-1.2 Comments: Reference interval is for non-anticoagulated patients. . Suggested INR therapeutic range for Vitamin K anta gonist therapy: Standard Dose (moderate intensity therapeutic range): 2.0 - 3.0 Higher intensity therapeutic range 2.5 - 3.5 :30 Rapid Flu (85724 x 2) Influenza A Ag negative (Normal) :45 PT (Prothrobim Time) Comments: PATIENT NOT FASTINGPERFORMED BY: [address] [id number] Information: [id number] (60426) Prothrombin Time 16.4 {sec} (Abnormal) Range: 9.1-12.0 INR 1.6 (Abnormal) Range: 0.8-1.2 Comments: Reference interval is for non-anticoagulated patients. . Suggested INR therapeutic range for Vitamin K anta gonist therapy: Standard Dose (moderate intensity therapeutic range): 2.0 - 3.0 Higher intensity therapeutic range 2.5 - 3.5 :32 PT (Prothrobim Time) Comments: PATIENT NOT FASTINGPERFORMED BY: [address] [id number] Information: [id number] (22991) Prothrombin Time 21.6 {sec} (Abnormal) Range: 9.1-12.0 INR 2.1 (Abnormal) Range: 0.8-1.2 Comments: Reference interval is for non-anticoagulated patients. . Suggested INR therapeutic range for Vitamin K anta gonist therapy: Standard Dose (moderate intensity therapeutic range): 2.0 - 3.0 Higher intensity therapeutic range 2.5 - 3.5 :58 Prothrombin Time (PT) Comments: PERFORMED BY: [address] [id number] Prothrombin Time 15.6 {sec} (Abnormal) Range: 9.1-12.0 INR 1.5 (Abnormal) Range: 0.8-1.2 Comments: Reference interval is for non-anticoagulated patients. . Suggested INR therapeutic range for Vitamin K anta gonist therapy: Standard Dose (moderate intensity therapeutic range): 2.0 - 3.0 Higher intensity therapeutic range 2.5 - 3.5 52-Hyf-723482:28 PT INR 2.2 (Normal) PTP 22.4 s [...] 200-240 mg/dL Borderline >240 mg/dL High Risk 07-Avk-796163:19 PT INR 2.1 (Normal) PTP 21.7 s [...] MIXED GRAM POSITIVE ORGANISMS :07 Urinalysis, Office (68834) UA - BILIRUBIN Negative (Normal) UA - BLOOD Negative (Normal) UA - GLUCOSE Negative (Normal) UA - KETONES Negative mg/dL (Normal) UA - LEUKOCYTE ESTERASE Small (Normal) UA - NITRITE Negative (Normal) UA - PH 6.5 (Normal) UA - PROTEIN Negative mg/dL (Normal) UA - SPECIFIC GRAVITY 1.010 (Normal) URINE UROBILINGN DENISE TIMED Normal mg/dL (Normal) 52-Psq-310273:52 PT INR 1.6 (Normal) PTP 18.2 s (Abnormal) Range: 11.9-14.4 35-Reh-140825:12 PT INR 1.1 (Normal) PTP 13.6 s (Normal) Range: 11.9-14.4 14-Ehg-84664:01 GALLBLADDER Radiology Report See Note (Normal) Comments: [...] size of the right kidney. The right fpajxbleflbkzt95.5 cm. Normal renal cortex. The renal co rtex measures 1.4 cm. Thereisno demonstrated renal mass or cyst. There are no demonstrated renalcalculi. There is no hydronephrosis. There is no ascites. IMPRESSION:Cholelithiasis.Fatty infiltration of the liver. To consult with a radiologist regarding this report, please call our [id number] line @ Dictated on 09/25/11 0903 by Leatha LEON,Jessicaranscribed on 09/25/11 1014 by ITS IMPORTSign by Leatha LEON,Jaxon on 09/25/11 1015 Sign by: Jaoxn Adame MD HPYL < 0.9 U/mL Range: 0.0-0.8 28:52 (Normal) Comments: Negative <0.9 Indeterminate 0.9 - 1.0 Positive >1.0Performed at: [facility] [id number] Director: Chloé Mccarthy MD, Phone: [phone] :22 PT INR 2.0 (Normal) PTP 21.8 [...] Comments: inr; PATIENT NOT FASTINGPERFORMED BY: [facility] Fijbeb8441 [facility] [id number] Information: [id number] (93146) Prothrombin Time 16.3 {sec} (Abnormal) Range: 9.1-12.0 [...] Report See Note (Normal) Comments: Exam Number: [id number] he patient is a 40-year-old female with [...] - 222. 3Postmenopausal 0.1 - 0.8Performed at: [facility] [address] [id number] Director: Chloé Mccarthy MD, Phone: [phone] :45 PRO TIME INR 3.3 (Normal) PROTIME 34.2 s (Abnormal) Range: 9.1-11.7 40-Tld-965349:26 PT (Prothrobim Time) Comments: PATIENT NOT FASTINGPERFORMED BY: [facility] [address] [id number] Information: [id number] (94220) Prothrombin Time 41.4 {sec} (Abnormal) Range: 9.1-12.0 INR 4.0 (Abnormal) Range: 0.8-1.2 Comments: Client Requested Flag Reference interval is for non- anticoagulated patients. . Suggested INR therapeutic ra nge for Vitamin K antagonist therapy: Standard Dose (moderate intensity therapeutic range): 2.0 - 3.0 Higher intensity therapeutic range 2.5 - 3.5 2-Huw-000790:51 CHEST, PA AND LATERAL (MT) Radiology Report See Note (Normal) Comments: Exam Number: [id number] CHEST PA AND LATERAL PA and lateral [...] abnormality is seen. Reported By: JAXON ADAME 2-Ktw-909912:49 Influenza B Ag (47219) Comments: neg Influenza A Ag negative (Normal) 2-Slh-958282:49 Influenza A Ag (61019) Comments: neg Influenza A Ag negative (Normal) 97-Fzr-868411:56 PRO TIME INR 2.0 (Normal) PROTIME 20.8 s (Abnormal) Range: 9.1-11.7 8-Hws-944291:47 CHEST WITH CONTRAST Radiology Report See Note (Normal) Comments: Exam Number: [id number] CT SCAN OF THE CHEST WITH CONTRAST [...] 4.2-5.4 WBC 7.1 K/mm3 (Normal) Range: 4.4-11.0 4-Kle-344549:11 PRO TIME INR 1.7 (Normal) PROTIME 17.2 s (Abnormal) Range: 9.1-11.7 31-Knd-680537:00 PRO TIME INR 2.2 (Normal) PROTIME 24.2 s (Abnormal) Range: 9.1-11.7 48-Dkp-575501:58 PRO TIME INR 1.8 (Normal) PROTIME 19.8 s (Abnormal) Range: 9.1-11.7 74-Jqw-876628:55 REYNALDO-D [id number] Comments: FAX PT RESULTS REYNALDO-DIRECT SeeNote (Normal) Comments: Result: Negative :55 AT3 FUNCT 66236 103 % (Normal) Comments: FAX PT RESULTS Range: 75-135 Comments: Performed At: [facility] Ppuwahhiwu0225 DEMETRA Pimentel [id number] At: [facility] [id number] Evan LarsonDEMETRA [id number] At: [facility] Kzyraz[address] [place], [place] [id number] :55 C-REACTIVE PROT 11.40 mg/L (Abnormal) Comments: [...] T PROT 7.5 g/dL (Normal) Range: 6.4-8.2 66-Sgo-177064:55 COMPLETE UA Comments: FAX PT RESULTS BACTERIA [...] 10 mm/h (Normal) Range: 0-20 :55 FACVL [id number] Comments: FAX PT RESULTS COMMENT Comment (Normal) Comments: Genetic counselors are available for health care providers to discuss results at [phone]. .Methodology:DNA analysis of the Factor V gene [...] in the workup for venous thrombosis include [id number] mutation in the factor II (prothrombin) gene,protein [...] mg/dL VLDL 26 mg/dL (Normal) Range: 5-40 89-Rvj-783257:55 LUPUS [id number] Comments: FAX PT RESULTS DILUTE PT (dPT) [...] UR CREAT 115.7 mg/dL (Normal) :55 MTHFR [id number] Comments: FAX PT RESULTS COMMENT Comment (Normal) Comments: Genetic counselors are available to discuss these results with health care providers at [phone] .The MTHFR enzyme is responsible for creating the circulatingform of folate. Folate is important in homocysteine regula-tion. Defects in the MTHFR enzyme can indirectly causeelevated homocysteine levels. The C677T mutation in theMTH FR gene can cause elevated homocysteine levels in israel-viduals with insufficient folate, particularly when thereare two mutations present. The Q3179G mutation has not beenassociated with elevated homoc ysteine levels unless a E958Bnhxhqupc is also present. Elevated serum homocysteine levelshave [...] f or the most accurateinterpretation. . MTHFR [id number] Comment (Normal) Comments: Result: G9418G/Y0028PWzo copies of the same mutation (Y0638U/C6938H) identified .Interpretation: .This patient's sample was analyzed for the MTHFR tjvkgegvvR269Z and K6090S. Two copies of the N4496U mutation wereidentified. Results for the C677T mutation were negative.Elevated homocyste ine levels have not been reported when twocopies of the P8304S mutation have been found. The diagnosisof hyperhomocysteinemia can not rely on DNA testing alonebut should take into consideration clinical findings andother studies, such as serum homocysteine levels. BecauseMTHFR mutations and their associated risks are inherited,genetic counseling and testing of at-risk family membersshould be consider ed. . 46-Owp-133728:55 PRO TIME Comments: FAX PT RESULTS INR 2.2 (Normal) PROTIME 24.2 s (Abnormal) Range: 9.1-11.7 05-Wcj-673863:55 PROT C 631601 Comments: FAX PT RESULTS PROT C,TD393219 11 % (Abnormal) Range: 74-151 Comments: A [...] fluorouracil canalso reduce PC levels. PROTEIN C 64491 50 % (Abnormal) Range: 70-140 Comments: A [...] L-asparaginse or fluorouracil canalso reduce PC levels. 16-Ate-133475:55 PROT S 015902 Comments: FAX PT RESULTS PROTEIN S, FREE [...] the PS in blood is bound to T3i-kfilfbbfxefssq (C4b-BP). C4b-BP is and acute phase reactant whoseconcentration increases rapidly due to inflammatoryconditions. This serves to increase bound PS antigen andproduces a relative decrease of free PS antigen and PSactivit y. Conditions that can cause an increase in S6e-TSaxjovh include: , oral contraceptive use,diabetes mellitus, systemic [...] the PS in blood is bound to Q6u-mgujiawjoscxkt (C4b-BP). C4b-BP is and acute phase reactant whoseconcentration increases rapidly due to inflammatoryconditions. This serves to increase bound PS antigen andproduces a relative decrease of free PS antigen and PSactivit y. Conditions that can cause an increase in C2n-ZXnfpdnh include: , oral contraceptive use,diabetes mellitus, systemic lupus erythematosus, AIDS andrenal allograft rejection. PROTEIN S,TOTAL 73 % (Normal) Range: 58-150 RHEUMATOID FAC < 10 {IU/mL} (Normal) Comments: FAX PT RESULTS 2:55 TSH 2.52 {uIU/mL} Comments: FAX PT RESULTS 2:55 (Normal) Range: 0.358-3.74 VITAMIN B12 622 pg/mL (Normal) Comments: FAX PT RESULTS 2:55 Range: 254-1320 11-Dtm-227813:57 PRO TIME INR 2.3 (Normal) PROTIME 25.4 [...] s (Abnormal) Range: 9.1-11.7 :35 PT/INR, Office (63820) INR 1.8 (Normal) :46 PT/INR, Office (99730) Comments: done BC INR 2.6 (Normal) :54 PT/INR, Office (22589) INR 1.2 (Normal) :00 CBCD,SMEAR DIFF ATYPICAL [...] T PROT 7.3 g/dL (Normal) Range: 6.4-8.2 82-Wha-243424:00 LIPID CHOL 176 mg/dL (Normal) Comments: <200 [...] mg/dL VLDL 25 mg/dL (Normal) Range: 5-40 90-Nin-525312:00 TSH 2.00 {uIU/mL} (Normal) Range: 0.358-3.74 92-Vje-319222:41 PT/INR, Office (48969) Comments: done>Wf. INR 1.6 (Normal) :56 PRO TIME INR 2.2 (Normal) PROTIME 24.4 s (Abnormal) Range: 9.1-11.7 :25 PT/INR, Office (85205) INR 2.8 (Normal) :40 PT/INR, Office (31328) INR 3.5 (Normal) :42 PT/INR, Office (78655) INR 3.5 (Normal) :38 CBCD,SMEAR DIFF BAND [...] Abnormal CT of the abdomen : Reviewed Auto Porter Letter Indication: Abnormal CT of the abdomen [...] of breath Shortness of breath : Reviewed Auto Porter Letter Indication: Shortness of breath Deep vein [...] BMI 50.0-59.9, adult Sinusitis, bacterial : Reviewed Auto Porter Letter Indication: Sinusitis, bacterial External otitis of both ears due to fungus : Eprescribed prescriptions (G8553) Indication: External otitis of both ears due to fungus Diastolic dysfunction : Continue Current Prescription(s) Indication: Diastolic dysfunction Diastolic dysfunction : Reviewed Auto Porter Letter Indication: Diastolic dysfunction Nonsmoker : Eprescribed [...] Sleep disturbance Cardiac arrhythmia, unspecified : Reviewed Auto Porter Letter Indication: Cardiac arrhythmia, unspecified Intermittent palpitations : Reviewed Lab Indication: Intermittent palpitations Intermittent palpitations : Reviewed Diagnostic Tests Indication: Intermittent palpitations Intermittent palpitations : Reviewed Auto Porter Letter Indication: Intermittent palpitations Nonsmoker : Eprescribed [...] Unspecified asthma with (acute) exacerbation : Reviewed Auto Porter Letter Indication: Unspecified asthma with (acute) exacerbation [...] HYPERCOAGULABLE STATE Other primary cardiomyopathies : Reviewed Auto Porter Letter Indication: Other primary cardiomyopathies Bronchitis : [...] VEINS SCHIZOPHRENIFORM DISORDER, CHRONIC STATE : Reviewed Auto Porter Letter: dr Egan Indication: SCHIZOPHRENIFORM DISORDER, CHRONIC [...] vein thrombosis, unspecified laterality Amenorrhea : Reviewed Auto Porter Letter Indication: Amenorrhea Other primary cardiomyopathies : HTN/CAD Red Flags Indication: Other primary cardiomyopathies Other primary cardiomyopathies : Reviewed Auto Porter Letter Indication: Other primary cardiomyopathies Other primary cardiomyopathies : Reviewed Lab Indication: Other primary cardiomyopathies Acute bronchitis : *URI Treatment Indication: Acute bronchitis Acute bronchitis : Antibiotic Usage Education - Female Indication: Acute bronchitis Amenorrhea : Diet, Exercise, and Wt loss Indication: Amenorrhea Other primary cardiomyopathies : HTN/CAD Red Flags Indication: Other primary cardiomyopathies Planned Observations TSH (95752)Indication: Type II diabetes mellitus, well controlled On: Request URINALYSIS, W/ MICRO (71938)Indication: Type II diabetes mellitus, well controlled On: Request MICROALBUMIN: CREATININE RATIO (62407) AND (18675)Indication: Type II diabetes mellitus, well controlled On: Request METABOLIC PANEL, COMPREHENSIVE (55677)Indication: Type II diabetes mellitus, well controlled On: Request LIPOPROTEIN, BLD, BY NMR (26477)Indication: Type II diabetes mellitus, well controlled On: Request LIPID PANEL (82539)Indication: Type II diabetes mellitus, well controlled On: Request CBC W/AUTO DIFF WBC (25950)Indication: Type II diabetes mellitus, well controlled On: Request PARATHORMONE (91904)Indication: Hyperprolactinemia On: 64-Vgr-114523: Request CALCIFEDIOL (82277)Indication: Vitamin D deficiency On: 56 Request MICROALBUMIN: CREATININE RATIO (78557) AND (82036)Indication: Type II diabetes mellitus, well controlled On: : Request METABOLIC PANEL, COMPREHENSIVE (37329)Indication: Type II diabetes mellitus, well controlled On: : Request LIPID PANEL (05238)Indication: Type II diabetes mellitus, well controlled On: Request CBC with auto diff (39704)Indication: Type II diabetes mellitus, well controlled On: :56 Request PT (Prothrobim Time) (97395)Indication: Chronic anticoagulation On: 12-Aug-2017 Request PT (Prothrobim Time) (71029)Indication: Chronic anticoagulation On: 05-Aug-2017 Request PT (Prothrobim Time) (67609)Indication: Chronic anticoagulation On: 29-Jul-2017 Request PT (Prothrobim Time) (26629)Indication: Chronic anticoagulation On: 22-Jul-2017 Request PT (Prothrobim Time) (94876)Indication: Chronic anticoagulation On: 15-Jul-2017 Request PT (Prothrobim Time) (73780)Indication: Chronic anticoagulation On: 08-Jul-2017 Request PT (Prothrobim Time) (29123)Indication: Chronic anticoagulation On: 01-Jul-2017 Request IRON & TOTAL IRON BINDING CAPACITY (57322)Indication: Elevated LFTs On: 5-Lzc-053239:38 Request TRANSFERRIN (95469)Indication: Elevated LFTs On: 7-Kkj-725061:38 Request FERRITIN (04942)Indication: Elevated LFTs On: 6-Jps-800566:37 Request PT (Prothrobim Time) (73137)Indication: Chronic anticoagulation On: 24-Jun-2017 Request PT (Prothrobim Time) (67978)Indication: Chronic anticoagulation On: 17-Jun-2017 Request PT (Prothrobim Time) (12846)Indication: Chronic anticoagulation On: 10-Jun-2017 Request URINALYSIS, W/ MICRO (71976)Indication: Type II diabetes mellitus, well controlled On: 90-Ztf-448350:43 Request MICROALBUMIN: CREATININE RATIO (20879) AND (29076)Indication: Type II diabetes mellitus, well controlled On: 80-Xre-461466:43 Request PT (Prothrobim Time) (90816)Indication: Chronic anticoagulation On: 03-Jun-2017 Request PT (Prothrobim Time) (47476)Indication: Chronic anticoagulation On: 27-May-2017 Request PT (Prothrobim Time) (59170)Indication: Chronic anticoagulation On: 20-May-2017 Request PT (Prothrobim Time) (68129)Indication: Chronic anticoagulation On: 13-May-2017 Request PT (Prothrobim Time) (44355)Indication: Chronic anticoagulation On: 06-May-2017 Request PT (Prothrobim Time) (52627)Indication: Chronic anticoagulation On: 29-Apr-2017 Request PT (Prothrobim Time) (55492)Indication: Chronic anticoagulation On: 22-Apr-2017 Request PT (Prothrobim Time) (86694)Indication: Chronic anticoagulation On: 15-Apr-2017 Request PT (Prothrobim Time) (35879)Indication: Chronic anticoagulation On: 08-Apr-2017 Request PT (Prothrobim Time) (59266)Indication: Chronic anticoagulation On: 01-Apr-2017 Request PT (Prothrobim Time) (99936)Indication: Chronic anticoagulation On: 25-Mar-2017 Request PT (Prothrobim Time) (70568)Indication: Chronic anticoagulation On: 18-Mar-2017 Request PT (Prothrobim Time) (78071)Indication: Chronic anticoagulation On: 11-Mar-2017 Request METABOLIC PANEL, COMPREHENSIVE (78277)Indication: SOB (shortness of breath) On: 45-Ysr-147236:51 Request PT (Prothrobim Time) (18067)Indication: Chronic anticoagulation On: 04-Mar-2017 Request PT (Prothrobim Time) (38914)Indication: Chronic anticoagulation On: 25-Feb-2017 Request PT (Prothrobim Time) (21791)Indication: Chronic anticoagulation On: 18-Feb-2017 Request PT (Prothrobim Time) (88039)Indication: Chronic anticoagulation On: 11-Feb-2017 Request PT (Prothrobim Time) (84337)Indication: Chronic anticoagulation On: 04-Feb-2017 Request PT (Prothrobim Time) ([id number])Indication: Chronic anticoagulation On: 28-Jan-2017 Request PT (Prothrobim Time) ([id number])Indication: Chronic anticoagulation On: 21-Jan-2017 Request PT (Prothrobim Time) ([id number])Indication: Chronic anticoagulation On: 14-Jan-2017 Request PT (Prothrobim Time) ([id number])Indication: Chronic anticoagulation On: 07-Jan-2017 Request PT (Prothrobim Time) ([id number])Indication: Chronic anticoagulation On: 31-Dec-2016 Request PT (Prothrobim Time) ([id number])Indication: Chronic anticoagulation On: 24-Dec-2016 Request PT (Prothrobim Time) ([id number])Indication: Chronic anticoagulation On: 17-Dec-2016 Request PT (Prothrobim Time) ([id number])Indication: Chronic anticoagulation On: 10-Dec-2016 Request PT (Prothrobim Time) ([id number])Indication: Chronic anticoagulation On: 03-Dec-2016 Request PT (Prothrobim Time) ([id number])Indication: Chronic anticoagulation On: 26-Nov-2016 Request PT (Prothrobim Time) ([id number])Indication: Chronic anticoagulation On: 05-Nov-2016 Request PT (Prothrobim Time) ([id number])Indication: Chronic anticoagulation On: 29-Oct-2016 Request PT (PROTHROMBIN TIME) ([id number])Indication: EMBOLISM AND THROMBOSIS OF OTHER SPECIFIED VEINS On: 7-Jsw-546551:31 Request Comments: STAT Sjogren Antibodies- Anti-SS-A/Anti-SS-B ([id number])k3Seisplxhlr: Abnormal pulmonary function test On: :35 Request RHEUMATOID FACTOR-QUANT ([id number])Indication: Abnormal pulmonary function test On: :35 Request REYNALDO (ANTINUCLEAR ANTIBODY) ([id number])Indication: Abnormal pulmonary function test On: :35 Request LIPASE ([id number])Indication: Diarrhea On: :56 Request LIPASE ([id number])Indication: Diarrhea On: :56 Request AMYLASE ([id number])Indication: Diarrhea On: :56 Request BNTP ([id number])Indication: SOB (shortness of breath) on exertion On: :47 Request D-Dimer ([id number])Indication: SOB (shortness of breath) on exertion On: :47 Request LIPID PANEL ([id number])Indication: SOB (shortness of breath) on exertion On: :47 Request CALCIFEDIOL ([id number])Indication: SOB (shortness of breath) on exertion On: :47 Request TSH (THYROID STIMULATING HORMONE) ([id number])Indication: SOB (shortness of breath) on exertion On: :46 Request METABOLIC PANEL, COMPREHENSIVE ([id number])Indication: SOB (shortness of breath) on exertion On: :46 Request CBC, PLATELETS & AUT DIFF ([id number])Indication: SOB (shortness of breath) on exertion On: :46 Request OVA & PARASITE DIR SMEAR ([id number])Indication: Diarrhea On: :33 Request OCCULT BLOOD FECES SCREEN ([id number])Indication: Diarrhea On: :33 Request LEUKOCYTE COUNT, FECAL ([id number])Indication: Diarrhea On: :33 Request C-DIFFICILE, STOOL ([id number])Indication: Diarrhea On: :33 Request SHERITA CULTURE-STOOL ([id number])Indication: Diarrhea On: :33 Request PT (Prothrobim Time) ([id number])Indication: Deep vein thrombosis, unspecified laterality On: 04-Apr-2015 Request PT (Prothrobim Time) ([id number])Indication: Deep vein thrombosis, unspecified laterality On: 05-Mar-2015 Request PT (Prothrobim Time) ([id number])Indication: Deep vein thrombosis, unspecified laterality On: 03-Feb-2015 Request PT (Prothrobim Time) ([id number])Indication: Deep vein thrombosis, unspecified laterality On: 04-Jan-2015 Request PT (Prothrobim Time) ([id number])Indication: Deep vein thrombosis, unspecified laterality On: 05-Dec-2014 Request PT (Prothrobim Time) ([id number])Indication: Deep vein thrombosis, unspecified laterality On: 05-Nov-2014 Request URINE SHERITA CULTURE (DENISE COL COUNT) ([id number])Indication: Lower urinary tract infection On: 6-Bqg-120521:40 Request SHERITA CULTURE-OTHER ([id number])Indication: Wound drainage (Renamed from Drainage from wound) On: 16-Hkg-969367:45 Request URINE SHERITA CULTURE-IDENTIFICATN ([id number])Indication: Urinary frequency On: 7-Chs-401806:07 Request PT (Prothrobim Time) ([id number])Indication: Deep vein thrombosis, unspecified laterality On: 29-Opc-409357:16 Request Comments: Standing order HELICOBACTER PYLORI ANTIBODY ([id number])Indication: Epigastric pain On: 50-Njd-736653:22 Request URINALYSIS, W/ MICRO ([id number])Indication: Other primary cardiomyopathies On: 84-Czg-86871:54 Request TSH ([id number])Indication: Other primary cardiomyopathies On: :53 Request METABOLIC PANEL, COMPREHENSIVE ([id number])Indication: Other primary cardiomyopathies On: :53 Request CBC WITH MANUAL DIFF ([id number])Indication: Other primary cardiomyopathies On: 25-Sux-70996:53 Request LIPID PANEL ([id number])Indication: Other primary cardiomyopathies On: 09-Fzs-72166:53 Request PT (Prothrobim Time) ([id number])Indication: EMBOLISM AND THROMBOSIS OF OTHER SPECIFIED VEINS On: 83-Eio-01366:46 Request Comments: inr PT (Prothrobim Time) ([id number])Indication: Deep vein thrombosis, unspecified laterality On: 8-Yon-433791:35 Request Comments: inr CBC (AUTO) ([id number])Indication: SOB (shortness of breath) on exertion On: 8-Auw-695526:28 Request Folate ([id number])Indication: Fatigue On: 58-Uvt-985148:59 Request SED RATE ERYTHROCYTE ([id number])Indication: Fatigue On: 44-Nyi-967824:59 Request VITAMIN B-12 (CYANOCOBALAMIN) ([id number])Indication: Fatigue On: 45-Svf-081704:59 Request REYNALDO (ANTINUCLEAR ANTIBODY) ([id number])Indication: Fatigue On: 08-Ebo-020141:59 Request C-REACTIVE PROTEIN ([id number])Indication: Fatigue On: 07-Lho-099890:59 Request METABOLIC PANEL, COMPREHENSIVE ([id number])Indication: Fatigue On: 73-Pwt-243917:59 Request RHEUMATOID FACTOR-QUANT ([id number])Indication: Fatigue On: 41-Dcb-779896:59 Request URINALYSIS, W/ MICRO ([id number])Indication: Other primary cardiomyopathies On: 59-Hpl-303934:58 Request MICROALBUMIN: CREATININE RATIO ([id number]) AND ([id number])Indication: Other primary cardiomyopathies On: 75-Zpm-659512:58 Request METABOLIC PANEL, COMPREHENSIVE ([id number])Indication: Other primary cardiomyopathies On: 60-Qrk-639148:58 Request LIPID PANEL ([id number])Indication: Other primary cardiomyopathies On: 21-Lxr-674303:58 Request CBC WITH MANUAL DIFF ([id number])Indication: Other primary cardiomyopathies On: 66-Frh-195439:58 Request TSH ([id number])Indication: Amenorrhea On: 19-Ach-406963:57 Request PT (Prothrobim Time) ([id number])Indication: Deep vein thrombosis, unspecified laterality On: 10-Red-180241:54 Request Comments: pt/inr - talked to dr zaman -- she will need lovenox inj prior to surgery when need to stop coumadin and restart after surgery PT/INR, Office ([id number])Indication: Deep vein thrombosis, unspecified laterality On: 12-Yvy-221418:12 Request PT/INR, Office ([id number])Indication: Deep vein thrombosis, unspecified laterality On: 7-Vpi-749367:26 Request TSH ([id number])Indication: Other primary cardiomyopathies On: :06 Request METABOLIC PANEL, COMPREHENSIVE ([id number])Indication: Other primary cardiomyopathies On: :06 Request LIPID PANEL ([id number])Indication: Other primary cardiomyopathies On: : Request CBC WITH MANUAL DIFF ([id number])Indication: Other primary cardiomyopathies On: :06 Request PT/INR, Office ([id number])Indication: EMBOLISM AND THROMBOSIS OF OTHER SPECIFIED VEINS On: :21 Request Comments: inr 2.8 PT/INR, Office ([id number])Indication: Deep vein thrombosis, unspecified laterality On: 27-Sep-20089:19 Request TSH ([id number])Indication: Other primary cardiomyopathies On: :21 Request MICROALBUMIN URINE QUANT ([id number])Indication: Other primary cardiomyopathies On: :21 Request LIPID PANEL ([id number])Indication: Other primary cardiomyopathies On: :21 Request METABOLIC PANEL, COMPREHENSIVE ([id number])Indication: Other primary cardiomyopathies On: :21 Request CBC WITH MANUAL DIFF ([id number])Indication: Other primary cardiomyopathies On: :21 Request Planned Procedures Aerosol Treatment ([id number])By: On: 23-May-2018 Intent Mavis Baldwin Comments: Lungs clear after aerosol treatment. X-RAY CERVICAL SPINE, 1 VIEW On: 15-Feb-2018 Intent ([id number])By: Paty Catalan DO, DO, Kathleen CT SCAN OF ABDOMEN AND PELVIS On: 17-Dec-2017 Intent WITH CONTRAST ([id number])By: Paty Catalan DO, DO, Kathleen EMGBy: Paty [...] Kaye ELECTROCARDIOGRAM, COMPLETE (ECG) On: 08-Dec-2017 Intent ([id number])By: Yara Chang Comments: nsr no acute chg / poor R wave progression adn nonspecific st flattening EMGBy: Paty Catalan DO On: 06-Sep-2017 Intent Paty LOCK Comments: upper and lower extremity Nerve ConductionBy: Alayna LOCK, On: 06-Sep-2017 Intent Paty Morrow DO Comments: upper and lower extremi X-RAY OF HAND, TWO VIEWS On: 06-Sep-2017 Intent ([id number])By: Paty Catalan DO Comments: Left Alayna DO, Paty X-RAY OF HAND, TWO VIEWS On: 06-Sep-2017 Intent ([id number])By: Paty Catalan DO Comments: Right Alayna DOPaty SCREENING DIGITAL TOMOSYNTHESIS On: 06-Sep-2017 Intent OF BREAST ([id number])By: Alayna DO, Paty Alayna DO, Paty X-RAY OF ANKLE, TWO VIEWS On: 27-Jul-2017 Intent ([id number])By: Alayna DO, Paty Alayna DO, Paty X-RAY OF ANKLE, TWO VIEWS On: 27-Jul-2017 Intent ([id number])By: Alayna DO, Paty Alayna DO, Paty X-RAY OF FOOT, TWO VIEWS On: 27-Jul-2017 Intent ([id number])By: Paty Catalan DO Comments: left Alayna DO, Paty X-RAY OF FOOT, TWO VIEWS On: 27-Jul-2017 Intent ([id number])By: Paty Catalan DO Comments: left Paty Catalan DO FLAT PLATE OF ABDOMEN ([id number])By: On: 12-Jul-2017 Intent Juan Jose CLAROS Zuleima Kaye Ultrasound - LiverBy: Alayna LOCK, On: 16-Jun-2017 Intent Paty Morrow DO Rocephin Injection, 2 Gram On: 02-Jun-2017 Intent ([id number])By: Paty Catalan DO, DO, Kathleen Aerosol Treatment ([id number])By: On: 02-Jun-2017 Intent Paty Catalan DO, DO, Comments: srill inspir and exp wheeze and junky but less cough nad moer a./e Paty Radiology - Chest- PA and LatBy: On: 02-Jun-2017 Intent Paty Catalan DO, DO, Kathleen CT SCAN OF CHEST WITH CONTRAST On: 02-Jun-2017 Intent ([id number])By: Paty Catalan DO Comments: fu on PE Paty Catalan DO Doppler Ultrasound OtherBy: On: 02-Jun-2017 Intent Paty Catalan DO, DO, Comments: b/l lower extremities-- fu on dvt Paty Aerosol Treatment ([id number])By: On: 25-May-2017 Intent Juan Jose CLAROS Zuleima Kaye Spirometry ([id number])By: Alayna LOCK, On: 19-Mar-2017 Intent Paty Morrow DO Comments: restriction noted Solu- Medrol Injection, 125mg On: 19-Mar-2017 Intent ([id number])By: Paty Catalan DO Comments: Lot:[id number]:06/2019Dose:125mgRoute:imSite:l armGiven By:NICHOLAS signed Paty Catalan DO Aerosol Treatment ([id number])By: On: 19-Mar-2017 Intent Paty Catalan DO, DO, Comments: more a/e no noise Paty Flu Vaccine (Quadrivalent) On: 15-Mar-2017 Intent [id number]: Paty Catalan DO Comments: Lot:[id number]:12/13/17Amt:0.5mlRoute:IMSite: L DltdGiven By: CHAITANYA Reis signed Paty Catalan DO COMPUTED TOMOGRAPHY ANGIOGRAPHY On: 09-Mar-2017 Intent OF CHEST FOR PULMONARY EMBOLISM ([id number])By: Mavis Baldwin VENOUS DOPPLER LOWER EXTREMITY On: 09-Mar-2017 Intent ([id number])By: Mavis Baldwin Comments: R/O DVT Aerosol Treatment ([id number])By: On: 30-Nov-2016 Intent Paty Catalan DO, DO, Comments: more a/e - less wheeze --- Paty Spirometry ([id number])By: Alayna LOCK, On: 30-Nov-2016 Intent Paty Morrow DO Comments: moderate restriction & obstruction Aerosol Treatment ([id number])By: On: 01-Jun-[address] - Chest (IV Contrast On: 08-Apr-2016 Intent Needed)By: Robel Sanon MD CT - Chest (IV Contrast On: 08-Apr-2016 Intent Needed)By: Robel Sanon MD Comments: Has Ct scan scehduled without contrast on 04/13/16. PLEASE DO CT SCAN WITH IV CONTRAST CHEST XRAY, PA & LATERAL On: 08-Apr-2016 Intent ([id number])By: Robel Sanon MD CT - Chest (Without Contrast)By: On: 02-Apr-2016 Intent Robel Sanon MD Comments: high resolution Flu Vaccine (Quadrivalent) On: 19-Mar-2016 Intent [id number]: Paty Catalan DO Comments: FLUlot: [id number]:11/11site:Lt deltoidroute:IMdose:.5mlDEYAHIR GIBBONS DO, Kathleen Echo CompleteBy: Robel Sanon MD On: 12-Mar-2016 Intent Comments: pls fax to Dr. palomo el[facility] PFT - CompleteBy: Robel Sanon MD On: 12-Mar-2016 Intent Radiology - Foot - RightBy: Fab On: 12-Mar-2016 Intent Robel LEON Comments: pain in rt toe after fall. Aerosol Treatment ([id number])By: On: 11-Feb-2016 Intent Slarb DEPENDENCY DIRECTOR, Yanet Aerosol Treatment ([id number])By: On: 19-Aug-2015 Intent Slarb DEPENDENCY DIRECTOR, Yanet Aerosol Treatment ([id number])By: On: 16-Oct-2014 Intent Coty Scott MD Venous Doppler - RightBy: Ciesa On: 25-Sep-2014 Intent Zuleima CLAROS IMMUNIZ ADMNIN, 1 VAC, SNGL/COMBO On: 23-Apr-2014 Intent ([id number])By: Yanet Lee LPN Comments: [id number] syringeL Dltd, IMAS, LPNABN and VIS signed FLU VAC, SPLIT, >3 YEARS, On: 23-Apr-2014 Intent INTRAMUSC ([id number])By: Yanet Lee LPN Zcicvcllq-Cvc-Nnpt ([id number])By: On: 11-Sep-2013 Intent Alayna LOCK, Paty Catalan DO, Paty Aerosol Treatment ([id number])By: On: 24-Aug-2013 Intent Coty Scott MD Eprescribed prescriptions On: 24-Aug-2013 Intent ([id number])By: Coty Scott MD IMMUNIZ ADMNIN, 1 VAC, SNGL/COMBO On: 15-Mar-2013 Intent ([id number])By: Apolonia Alvarez Comments: Lot:[id number]:01/14/14Dose:0.5mLRoute:imSite:r armGiven By:NICHOLAS signed PNEUM VAC ADLT/IMUMNOSPR, On: 15-Mar-2013 Intent SBC/INTRM ([id number])By: Apolonia Alvarez FLU VAC, SPLIT, >3 YEARS, On: 15-Mar-2013 Intent INTRAMUSC ([id number])By: Antonio, Comments: Lot:[id number]:Dose:0.5mLRoute:IMSite:L DltdGiven By:NICHOLAS signed Apolonia IMMUNIZ ADMNIN, 1 VAC, SNGL/COMBO On: 15-Mar-2013 Intent ([id number])By: Apolonia Alvarez Ultrasound - AortaBy: Alayna LOCK, On: 24-Oct-2012 Intent Paty Alayna DO, Paty MRI - Brain (IV Contrast On: 04-Oct-2012 Intent Needed)By: Alayna LOCK, Paty Alayna DO, Paty Anoscopy ([id number])By: Alayna , On: 28-Sep-2012 Intent Paty Morrow [...] ADMNIN, 1 VAC, SNGL/COMBO On: 25-Apr-2012 Intent ([id number])By: Radha Whitaker LPN Comments: Lot #[id number]-L dltd, IMDose prefilled syringegiven by:REBEKAH CarlsonVIS signed FLU VAC, SPLIT, >3 YEARS, On: 25-Apr-2012 Intent INTRAMUSC ([id number])By: Radha Whitaker LPN Rocephin Injection, 2 Gram On: 18-Jan-2012 Intent ([id number])By: Coty Scott MD Comments: Lot #: [id number] date: 01/07Amount given: 2gRoute: IVSite given: right antecubitalGiven by: Raquel RN22g IV inserted to right antecubital without difficulty. No s/sx of infiltration. Tolerated well without difficulty. THER/PROPH/DIAG IV INF, INIT On: 18-Jan-2012 Intent ([id number])By: Coty Scott MD Ultrasound - GallbladderBy: On: 21-Sep-2011 Intent AlaynaPaty hagan DO, DO, Paty Venous Doppler - LeftBy: Tyler On: 04-Sep-2011 Intent Coty LEON Comments: leg, wet read FLU VAC, SPLIT, >3 YEARS, On: 01-Apr-2011 Intent INTRAMUSC ([id number])By: Master WELCH, Comments: Lot #[id number]-0/20/12Site-right deltoidgiven by: Jessica Thao LPN Dunia IMMUNIZ ADMNIN, 1 VAC, SNGL/COMBO On: 01-Apr-2011 Intent ([id number])By: Dunia Thao LPN Pulse Oximetry ([id number])By: Sandeep On: 05-Sep-2010 Intent Sammie WELCH Comments: sp02- 90% on room air Aerosol Treatment ([id number])By: On: 05-Sep-2010 Intent Sammie Hopkins LPN Pulse Oximetry ([id number])By: Juan Jose On: 01-Sep-2010 Intent HARLANZuleima Aerosol Treatment ([id number])By: On: 01-Sep-2010 Intent Juan Jose Zuleima CLAROS IMMUNIZ ADMNIN, 1 VAC, SNGL/COMBO On: 10-Apr-2010 Intent ([id number])By: Paty Catalan DO Comments: Lot #[id number] 4PExp-4/11Site-L arm IMDose 0.5mlgiven by:REBEKAH PEDRO DO, Kathleen FLU VAC, SPLIT, >3 YEARS, On: 10-Apr-2010 Intent INTRAMUSC ([id number])By: Paty Catalan DO, DO, Kathleen PHYSICAL THERAPY EVALUATION On: 24-Mar-2010 Intent ([id number])By: Juan Jose CLAROS Bess Radiology - Left KneeBy: Juan Jose On: 24-Mar-2010 Intent Zuleima CLAROS Aerosol Treatment ([id number])By: On: 17-Mar-2010 Intent Juan Jose CLAROS Zuleima Kaye Pulse Oximetry ([id number])By: Juan Jose On: 17-Mar-2010 Intent Zuleima CLAROS Aerosol Treatment ([id number])By: Cachorro On: 01-Nov-2009 Brigid Francois DO Pulse Oximetry ([id number])By: Cachorro On: 01-Nov-2009 Brigid Francois DO Comments: 87- after treatment Solu -Medrol Injection, 125 mg On: 01-Nov-2009 Intent ([id number])By: Laurie Reyna Comments: Lot:[id number]:125mgRoute:IMSite:Left Gluteus Given by: YAHIR Salgado Pulse Oximetry ([id number])By: On: 01-Nov-2009 Intent Olivia Batista Comments: 89% Radiology - Chest- PA and LatBy: On: 31-Oct-2009 Intent Paty Catalan DO DO, Paty Pulse Oximetry ([id number])By: Alayna On: 31-Oct-2009 Intent Paty LOCK DOPaty Comments: 90% Aerosol Treatment ([id number])By: On: 31-Oct-2009 Intent Paty Catalan DO, DO, Kathleen Solu- Medrol Injection, 125mg On: 31-Oct-2009 Intent ([id number])By: Paty Catalan DO Comments: Lot #[id number]-3/1/2012Site-left hipDose- 125 mggiven by:Paty Pelayo DO CT - Chest with PE ProtocolBy: On: 29-Aug-2009 Intent Paty Catalan DO DO, Paty Echo CompleteBy: Alayna LOCK, On: 29-Aug-2009 Intent Paty Catalan DO Paty EKG ([id number])By: Alayna LOCK, On: 29-Aug-2009 Intent Paty Catalan DO, Paty Bio Z ([id number])By: Alayna LOCK, On: 29-Aug-2009 Intent Paty Morrow DO Spirometry ([id number])By: Alayna LOCK, On: 29-Aug-2009 Intent Paty Catalan DOPaty Pulse Oximetry (05253)By: Alayna On: 29-Aug-2009 Intent Paty LOCK DOPaty Inhaler Demo ([id number])By: Cachorro LOCK, On: 06-Aug-2009 Intent Brigid Molina Radiology - Chest- PA and LatBy: On: 06-Aug-2009 Intent Cachorro LOCK Brigid A Spirometry ([id number])By: Cachorro LOCK, On: 06-Aug-2009 Intent Brigid A Comments: done km- good effort and curve mildd restriction Aerosol Treatment ([id number])By: Cachorro On: 06-Aug-2009 Intent DO Brigid A Comments: done km Pulse Oximetry ([id number])By: Cachorro On: 06-Aug-2009 Alessandro LOCK Brigid A Comments: post aerosol 95% Pulse Oximetry ([id number])By: On: 06-Aug-2009 Intent Olivia Batista Comments: 94% Bio Z ([id number])By: Alayna LOCK, On: 15-May-2009 Intent Paty Morrow DO Comments: see scanned doc -- no changes n meds stable Doppler Ultrasound OtherBy: On: 27-Sep-2008 Intent Paty Catalan DO, DO, Comments: do in 3 months Paty Bio Z ([id number])By: Alayna LOCK, On: 13-Sep-2008 Intent Paty Morrow DO Comments: normal EKG (07841)By: Alayna LOCK, On: 13-Sep-2008 Intent Paty Morrow DO Comments: nsr no acute changes IMMUNIZ ADMNIN, 1 VAC, SNGL/COMBO On: 09-May-2008 Intent ([id number])By: Paty Catalan DO, DO, Kathleen FLU VAC, SPLIT, >3 YEARS, On: 09-May-2008 Intent INTRAMUSC ([id number])By: Alayna LOCK, Comments: injection given in left deltoid. pt tolerated. 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 The symptoms have been associated with caffiene use daily, caffeine use daily and tried OTC meds.Encounter Diagnosis: Sleep apnea, Sleep disturbance [facility] Phone Encounter On: 24-Dec-2014 8:36 Encounter Diagnosis: Unspecified Diagnosis End: 24-Dec-2014 8:38 [facility] Office Visit On: 23-Nov-2014 10:54 Encounter Reason: Follow up hospital - Reason for ER visit: note: (At [facility] not sure of the dates).Encounter Diagnosis: Bipolar [...]
--- OUTSIDE RECORDS SUMMARY | 2018-09-19 12:51 | XMS RPT_ITS ---
:1970 External Reference #:[id number] Author Organization [place] Support Name Relationship Address Phone ESTEBAN SANDY Unavailable [address] + [place] [address] NOT GIVEN Unavailable Unavailable Unavailable RITA NIELSEN Unavailable [address] + [place] [address] D Unavailable Unavailable Unavailable TROY SANDY Unavailable [address] + [place] [address] RITA NIELSEN Unavailable [address] + [place] [address] D Unavailable Unavailable Unavailable TROY SANDY Unavailable [address] + [place] [address] GIA RITA Unavailable [address] + [place] [address] D Unavailable Unavailable Unavailable TROY SANDY Unavailable [address] + [place] [address] GIA RITA Unavailable [address] + [place] [address] D Unavailable Unavailable Unavailable TROY SANDY Unavailable [address] + [place] [address] GIA RITA Unavailable [address] + [place] [address] D Unavailable Unavailable Unavailable TROY SANDY Unavailable [address] + [place] [address] GIA RITA Unavailable [address] + [place] [address] D Unavailable Unavailable Unavailable TROY SANDY Unavailable [address] + [place] [address] NIELSEN, RITA Unavailable [address] + [place] [address] D Unavailable Unavailable Unavailable TROY SANDY Unavailable [address] + [place] [address] NIELSEN, RITA Unavailable [address] + [place] [address] D Unavailable Unavailable Unavailable TROY SANDY Unavailable [address] + [place] [address] NIELSEN, RITA Unavailable [address] + [place] [address] D Unavailable Unavailable Unavailable TROY SANDY Unavailable [address] + [place] [address] NIELSEN, RITA Unavailable [address] + [place] [address] D Unavailable Unavailable Unavailable TROY SANDY Unavailable [address] + [place] [address] NIELSEN, RITA Unavailable [address] + [place] [address] D Unavailable Unavailable Unavailable TROY SANDY Unavailable [address] + [place] [address] NIELSEN, RITA Unavailable [address] + [place] [address] D Unavailable Unavailable Unavailable TROY SANDY Unavailable [address] + [place] [address] NIELSEN, RITA Unavailable [address] + [place] [address] D Unavailable Unavailable Unavailable TROY SANDY Unavailable [address] + [place] [address] NIELSEN, RITA Unavailable [address] + [place] [address] NIELSEN, JOSE Unavailable [address] [place] [address] NIELSEN, JOSE Unavailable [address] + [address] [place] [address] NONE, GIVEN Unavailable Unavailable + D Unavailable Unavailable Unavailable TROY SANDY Unavailable [address] + [facility] [address] NIELSEN, RITA Unavailable [address] + [place] [address] D Unavailable Unavailable Unavailable TROY SANDY Unavailable [address] + [facility] [address] NIELSEN, RITA Unavailable [address] + [place] [address] D Unavailable Unavailable Unavailable TROY SANDY Unavailable [address] + [facility] [address] GIA, RITA Unavailable [address] + [place] [address] D Unavailable Unavailable Unavailable TROY SANDY Unavailable [address] + [facility] [address] NIELSEN, RITA Unavailable [address] + [place] [address] D Unavailable Unavailable Unavailable TROY SANDY Unavailable [address] + [facility] [address] NIELSEN, RITA Unavailable [address] + [place] [address] D Unavailable Unavailable Unavailable TROY SANDY Unavailable [address] + [facility] [address] NIELSEN, RITA Unavailable [address] + [place] [address] D Unavailable Unavailable Unavailable TROY SANDY Unavailable [address] + [place] [address] NIELSEN, RITA Unavailable [address] + [place] [address] D Unavailable Unavailable Unavailable TROY SANDY Unavailable [address] + [place] [address] NIELSEN, RITA Unavailable [address] + [place] [address] D Unavailable Unavailable Unavailable TROY SANDY Unavailable [address] + [place] [address] NIELSEN, RITA Unavailable [address] + [place] [address] D Unavailable Unavailable Unavailable TROY SANDY Unavailable [address] + [place] [address] NIELSEN, RITA Unavailable [address] + [place] [address] D Unavailable Unavailable Unavailable TROY SANDY Unavailable [address] + [place] [address] NIELSEN, RITA Unavailable [address] + [place] [address] D Unavailable Unavailable Unavailable TROY SANDY Unavailable [address] + [place] [address] NIELSEN, RITA Unavailable [address] + [place] [address] D Unavailable Unavailable Unavailable TROY SANDY Unavailable [address] + [place] [address] NIELSEN, RITA Unavailable [address] + [place] [address] D Unavailable Unavailable Unavailable TROY SANDY Unavailable [address] + [place] [address] NIELSEN, RITA Unavailable [address] + [place] [address] D Unavailable Unavailable Unavailable TROY SANDY Unavailable [address] + [place] [address] NIELSEN, RITA Unavailable [address] + [place] [address] D Unavailable Unavailable Unavailable TROY SANDY Unavailable [address] + [place] [address] NIELSEN, RITA Unavailable [address] + [place] [address] D Unavailable Unavailable Unavailable TROY SANDY Unavailable [address] + [place] [address] NIELSEN, RITA Unavailable [address] + [place] [address] D Unavailable Unavailable Unavailable TROY SANDY Unavailable [address] + [place] [address] NIELSEN, RITA Unavailable [address] + [place] [address] D Unavailable Unavailable Unavailable TROY SANDY Unavailable [address] + [place] [address] NIELSEN, RITA Unavailable [address] + [place] [address] D Unavailable Unavailable Unavailable TROY SANDY Unavailable [address] + [place] [address] NIELSEN, RITA Unavailable [address] + [place] [address] D Unavailable Unavailable Unavailable TROY SANDY Unavailable [address] + [place] [address] NIELSEN, RITA Unavailable [address] + [place] [address] D Unavailable Unavailable Unavailable TROY SANDY Unavailable [address] + [place] [address] NIELSEN, RITA Unavailable [address] + [place] [address] D Unavailable Unavailable Unavailable TROY SANDY Unavailable [address] + [place] [address] NIELSEN, RITA Unavailable [address] + [place] [address] D Unavailable Unavailable Unavailable TROY SANDY Unavailable [address] + [place] [address] RITA NIELSEN Unavailable [address] + [place] [address] Care Team Providers Name Role Phone SYSTEM, PROVIDER NOT IN Primary Care Unavailable [facility] Consulting Unavailable DOMINIQUE CLEMENTE Attending Unavailable BIBI GROSSMAN Admitting Unavailable REINIER CHRISTIE Attending Unavailable Physician, No PCP Primary Care Unavailable SAUD VERAS Attending Unavailable Physician, No PCP Primary Care Unavailable Alayna DO, Paty Attending Unavailable Alayna DO, Paty Referring Unavailable Alayna DO, Paty Consulting Unavailable Eliud, Dr. Chloé Coto Admitting Unavailable Eliud, Dr. Chloé Coto Attending Unavailable Alayna, Paty Primary Care Unavailable Richard Abreu Attending Unavailable Alayna, Paty Primary Care Unavailable Agyepong, Quinten Admitting Unavailable Agyepong, Quinten Referring Unavailable [place], [place] Attending Unavailable Agyepong, Quinten Admitting Unavailable Agyepong, Quinten Attending Unavailable Alayna, Paty Primary Care Unavailable Agyepong, Quinten Consulting Unavailable Agyepong, Quinten Admitting Unavailable Richard Paula Attending Unavailable Alayna, Paty Primary Care Unavailable Richard Paula Consulting Unavailable Agyepong, Quinten Admitting Unavailable TereletskyVincent Attending Unavailable Alayna, Paty Primary Care Unavailable KittyeletskyVincent Consulting Unavailable Agyepong, Quinten Admitting Unavailable TereletskyVincent Attending Unavailable Alayna, Paty Primary Care Unavailable TerariannakyVincent Consulting Unavailable Alayna, Paty Attending Unavailable Alayna, Paty Primary Care Unavailable Agyepong, Quinten Admitting Unavailable TereletskyVincent Attending Unavailable Agyepong, Quinten Referring Unavailable Alayna, Paty Primary Care Unavailable Tereletsky Vincent Consulting Unavailable Agyepong, Quinten Admitting Unavailable [place], [place] Attending Unavailable Agyepong, Quinten Referring Unavailable Alayna, Paty Primary Care Unavailable [place], [place] Consulting Unavailable Agyepong, Quinten Admitting Unavailable [place], [place] Attending Unavailable Agyepong, Quinten Referring Unavailable Alayna, Paty Primary Care Unavailable [place], [place] Consulting Unavailable Alayna, Paty Primary Care Unavailable White, Lorena Admitting Unavailable White, Lorena Referring Unavailable Jet, Louie Consulting Unavailable [place], [place] Attending Unavailable White, Lorena Attending Unavailable Alayna, Paty Primary Care Unavailable White, Lorena Admitting Unavailable Jet, Louie Attending Unavailable White, Lorena Referring Unavailable Alayna, Paty Primary Care Unavailable Jet, Louie Consulting Unavailable [place], [place] Consulting Unavailable White, Lorena Admitting Unavailable [place], [place] Attending Unavailable White, Lorena Referring Unavailable Alayna, Paty Primary Care Unavailable Jet, Louie Consulting Unavailable [place], [place] Consulting Unavailable Alayna, Paty Attending Unavailable Alayna, Paty Primary Care Unavailable Alayna, Paty Attending Unavailable Alayna, Paty Referring Unavailable Alayna, Paty Primary Care Unavailable Alayna, Paty Primary Care Unavailable Stone Felix Attending Unavailable Alayna, Paty Attending Unavailable Alayna, Paty Referring Unavailable Alayna, Paty Primary Care Unavailable Alayna, Paty Attending Unavailable Alayna, Paty Referring Unavailable Alayna, Paty Primary Care Unavailable [place] Attending Unavailable Alayna, Paty Referring Unavailable Alayna, Paty Primary Care Unavailable [place], [place] Attending Unavailable Kajal, Frederick Referring Unavailable Alayna, Paty Primary Care Unavailable Kajal, [place] Attending Unavailable [place], [place] Referring Unavailable Alayna, Paty Primary Care Unavailable [place], [place] Consulting Unavailable [place], [place] Attending Unavailable Alayna, Paty Referring Unavailable Alayna, Paty Primary Care Unavailable Alayna, Paty Primary Care Unavailable Jorje Brar Attending Unavailable Kajal, [place] Attending Unavailable Kajal, [place] Referring Unavailable Alayna, Paty Primary Care Unavailable Kajal, Frederick Attending Unavailable Kajal, Frederick Referring Unavailable Alayna, Paty Primary Care Unavailable [place], [place] Consulting Unavailable Alayna, Paty Attending Unavailable Alayna, Paty Referring Unavailable Alayna, Paty Primary Care Unavailable Alayna, Paty Attending Unavailable Alayna, Paty Primary Care Unavailable Alayna, Paty Referring Unavailable Alanya, Paty Primary Care Unavailable Bronson Willson Attending Unavailable Alayna, Paty Primary Care Unavailable Harry De Paz Attending Unavailable Alayna, Paty Primary Care Unavailable Jesus Shah Attending Unavailable Alayna, Paty Primary Care Unavailable Bin Maria Attending Unavailable Alayna, Paty Primary Care Unavailable Agyepong, Quinten Admitting Unavailable Jopperi, Rios Attending Unavailable Agyepong, Quinten Admitting Unavailable Agyepong, Quinten Attending Unavailable Alayna, Paty Primary Care Unavailable Agyepong, Quinten Consulting Unavailable Agyepong, Quinten Admitting Unavailable Jopperi, Rios Attending Unavailable Alayna, Paty Primary Care Unavailable Jopperi, Rios Consulting Unavailable Agyepong, Quinten Admitting Unavailable Jopperi, Rios Attending Unavailable Alayna, Paty Primary Care Unavailable Jopperi, Rios Consulting Unavailable Agyepong, Quinten Admitting Unavailable Jopperi, Rios Attending Unavailable Alayna, Paty Primary Care Unavailable Jopperi, Rios Consulting Unavailable PROBLEMS PROBLEMS DATE TYPE CONDITION / CODE ATTENDING STATUS SOURCE 04/18/2018 Admitting Unknown / SAUD VERAS Active [place] Diagnosis UNK(Unknown) [facility] Repository 04/01/2018 Admitting Suicidal ideations / CHYNA, [facility] diagnosis R45.851(ICD-10) DOMINIQUE [facility] Admitting Chest pain, CHYNA, [facility] diagnosis unspecified / DOMINIQUE Repository R07.9(ICD-10) [facility] 03/28/2018 Admitting Syncope and collapse CHYNA, [facility] diagnosis / R55(ICD-10) DOMINIQUE [facility] 03/28/2018 Admitting Noninfective CHYNA, [facility] diagnosis gastroenteritis and DOMINIQUE Repository colitis, unspecified [facility] / K52.9(ICD-10) 03/28/2018 Admitting Other hypotension / CHYNA, [facility] diagnosis I95.89(ICD-10) DOMINIQUE Repository [facility] 03/09/2018 Unknown M79.9 - Soft tissue Alayna, Active [place] disorder, [facility] unspecified / [facility] M79.9(ICD-10) Repository 02/09/2018 Unknown R20.2 - Paresthesia Alayna, Active [place] of skin / [facility] R20.2(ICD-10) Hospital Repository 03/21/2018 Unknown S20.219A - Contusion [place], Jorje Active [place] of unspecified front Community wall of thorax, Hospital initial encounter / Repository S20.219A(ICD-10) 01/03/2018 Unknown K46.9 - Unspecified [place], Active [place] abdominal hernia [facility] without obstruction Hospital or gangrene / Repository K46.9(ICD-10) 01/03/2018 Unknown R93.5 - Abnormal Kajal, Active [place] findings on [facility] diagnostic imaging Hospital of other abdominal Repository regions, including retroperitoneum / R93.5(ICD-10) 01/03/2018 Unknown R19.7 - Diarrhea, [place], Active [place] unspecified / [facility] R19.7(ICD-10) Hospital Repository 01/03/2018 Unknown K43.2 - Incisional Kajal, Active [place] hernia without [facility] obstruction or Hospital gangrene / Repository K43.2(ICD-10) 12/31/2017 Unknown R10.30 - Lower Alayna, Active [place] abdominal pain, [facility] unspecified / Hospital R10.30(ICD-10) Repository 09/06/2017 Unknown M79.641 - Pain in Alayna, Active [place] right hand / [facility] M79.641(ICD-10) Hospital Repository 09/06/2017 Unknown M79.642 - Pain in Alayna, Active [place] left hand / [facility] M79.642(ICD-10) Hospital Repository 07/27/2017 Unknown M79.671 - Pain in Alayna, Active [place] right foot / [facility] M79.671(ICD-10) Hospital Repository 07/27/2017 Unknown M79.672 - Pain in Alayna, Active [place] left foot / [facility] M79.672(ICD-10) Hospital Repository PROCEDURES PROCEDURES No Procedure Records FoundRESULTS RESULTS GLUCOSE, POC Collected: 07/24/2018 Status: F Source: [facility] 11:10 AM [facility] REPOSITORY TYPE CODE TESTS RESULT OUT OF RANGE REFERENCE UNITS LAB GLUX 70-105 mg/dL High Glucose, 133 POC Performed By: #### GLUX #### Unless otherwise noted, all testing performed by [place] [address] [place], [place] [address] CLIA: [id number] Model Engine Mechanic: Peterson Kennedy M.D. GLUCOSE, POC Collected: 07/24/2018 Status: F Source: [facility] 6:21 AM [facility] TYPE CODE TESTS RESULT OUT OF RANGE REFERENCE UNITS LAB GLUX 70-105 mg/dL Normal Glucose, 91 POC Performed By: #### GLUX #### Unless otherwise noted, all testing performed by [place] [address] CLIA: [id number] Model Engine Mechanic: Peterson Kennedy M.D. GLUCOSE, POC Collected: 07/23/2018 Status: F Source: [facility] 7:55 PM [facility] TYPE CODE TESTS RESULT OUT OF RANGE REFERENCE UNITS LAB GLUX 70-105 mg/dL High Glucose, 133 POC Performed By: #### GLUX #### Unless otherwise noted, all testing performed by [place] [address] CLIA: [id number] Model Engine Mechanic: Peterson Kennedy M.D. PROGRESS NOTE Observed: 07/23/2018 Status: UNK Source: [facility] 5:[address] [address] NAME SIMI NIELSEN [facility] [id number] 1970 DATE 07/23/2018 PROGRESS NOTE The patient's record seen and the electronic medical record reviewed. Patient discussed with nursing staff. Simi was seen in her room. She was coloring and making meal selection for dinner wearing a hospital gown. She made limited eye contact. She reports she feels slightly better today, and she reports she is still having suicide thoughts, but does not currently have a suicide plan. She is not sure she could be safe if she were discharged from the hospital today. She reports she is still hearing voices that tell her to kill herself. She denies homicide thoughts. She reports her and daughter visited her in the hospital today. REVIEW OF SYSTEMS Negative. MENTAL STATUS EXAM The patient is casually dressed in hospital gown, and she is disheveled. She makes limited eye contact. She is a cooperative, but quite withdrawn. She reports mood as being better. Affect is constricted. Her speech is decreased rate, volume, and rhythm. She has some thought blocking. She reports suicide thoughts. No homicide thoughts. She does report command auditory hallucinations of voices that tell her to kill herself. No visual hallucinations. She denies having delusions. She is alert. She is oriented to time, place, and person. Her attention and concentration appear to be fair and her fund of knowledge appears to be low average based on use of vocabulary and grammar. Insight appears to be limited based on limited awareness of mental illness. Judgment is slowly improving based on a slow improvement in ability to make decisions to keep herself safe. PHYSICAL EXAMINATION Vital Signs: Blood pressure 88/55, her pulse is 80, respiration is 12. ASSESSMENT OF PROGRESS The patient has not made adequate improvement in her mood and safety. She is still reporting command auditory hallucinations of voices telling her to kill herself. She is still reporting ongoing suicide thoughts. She is withdrawn with thought blocking. She will benefit from further inpatient treatment. TREATMENT CHANGES None. DIAGNOSIS Schizoaffective disorder, depressive type. MD Iker MOORE 07/23/2018 17:54 [id number] T 07/23/2018 18:55 REO/MODL GLUCOSE, POC Collected: 07/23/2018 Status: F Source: [facility] 4:17 PM [facility] REPOSITORY TYPE CODE TESTS RESULT OUT OF RANGE REFERENCE UNITS LAB GLUX 70-105 mg/dL Normal Glucose, 101 POC Performed By: #### GLUX #### Unless otherwise noted, all testing performed by [address] [address] CLIA: [id number] Model Engine Mechanic: Peterson Kennedy M.D. GLUCOSE, POC Collected: 07/23/2018 Status: F Source: [facility] 11:09 AM [facility] REPOSITORY TYPE CODE TESTS RESULT OUT OF RANGE REFERENCE UNITS LAB GLUX 70-105 mg/dL High Glucose, 106 POC Performed By: #### GLUX #### Unless otherwise noted, all testing performed by [facility] [address] [place], [place] [address] CLIA: [id number] Model Engine Mechanic: Peterson Kennedy M.D. GLUCOSE, POC Collected: 07/23/2018 Status: F Source: [facility] 6:43 AM [facility] REPOSITORY TYPE CODE TESTS RESULT OUT OF RANGE REFERENCE UNITS LAB GLUX 70-105 mg/dL Normal Glucose, 89 POC Performed By: #### GLUX #### Unless otherwise noted, all testing performed by [address] [place], [place] [address] CLIA: [id number] Model Engine Mechanic: Peterson Kennedy M.D. URINALYSIS, ROUTINE Collected: 07/22/2018 Status: F Source: [facility] 8:52 PM [facility] REPOSITORY TYPE CODE TESTS RESULT OUT OF REFERENCE UNITS RANGE LAB COLOR Normal Color, Urine Yellow LAB CHAUR Normal Character Hazy LAB SPGRUR 1.003-1.029 Normal Specific 1.009 [place],Urine LAB PHUR 4.5-8.0 Normal pH,Urine 6.0 LAB GLUCUR NEG;NEGATIVE mg/dL Normal Glucose,Urine Negative LAB KETUR NEG;NEGATIVE mg/dL Normal Ketone,Urine Negative LAB PROTUR NEG;NEGATIVE mg/dL Normal Protein,Urine Negative LAB BLDUR NEG;NEGATIVE Normal Blood,Urine Negative LAB NITUR NEG;NEGATIVE Normal Nitrite,Urine Negative LAB BILIUR NEG;NEGATIVE Normal Bilirubin,Urine Negative LAB UROUR <2 mg/dL Normal Urobilinogen,Ur < 2.0 ine Result Comment: Urobilinogen, Urine Reference Range: <2.0 mg/dL LAB LEUESTUR Negative Leuk.Esterase,Urine Abnormal Large LAB WBCUR 0-5 /HPF High WBC,Urine 33 LAB WBCCLUMP None Seen /HPF WBC Clumps Abnormal Occasional LAB RBCUR 0-5 /HPF RBC,Urine < Normal 1 LAB SQEPI 0-40 /HPF Squamous Epithelial 2 Normal LAB TRANSEPI 0-3 /HPF Trans. Epithelial 1 Normal LAB BACTUR NS;RARE /HPF Bacteria,Urine Abnormal Occasional Performed By: #### UA #### Unless otherwise noted, all testing performed by [address] [place], [place] [address] CLIA: [id number] Model Engine Mechanic: Peterson Kennedy M.D. Observed: 07/22/2018 Status: F Source: [facility] CULTURE, URINE 8:52 PM [facility] REPOSITORY Test Name: Culture, Urine Culture Status: Final Micro Source: Urine - clean catch ORGANISM ID: 1 - >100,000 CFU/ml ESCHERICHIA COLI AVOID fluoroquinolone treatment whenever possible. Risk of serious side effects may outweigh benefit. ANTIBIOTIC INTERPRETATION BEKA STATUS Ampicillin I 16 F Amox/Clavulanic S 4 F Amp/Sulbactam S 4 F Aztreonam S <= 1 F Cefazolin S <= 4 F Cefepime S <= 1 F Cefotaxime S <= 1 F Cefotetan S <= 4 F Cefpodoxime S 1 F Ceftazidime S <= 1 F Ceftriaxone S <= 1 F Cefuroxime I 16 F Ciprofloxacin S <= 0.25 F Gentamicin S <= 1 F Nitrofurantoin S <= 16 F Piperacillin/Tazo S <= 4 F Tetracycline S <= 1 F Tobramycin S <= 1 F Trimeth/Sulfa S <= 20 F Performed By: #### URCUL #### Unless otherwise noted, all testing performed by [place] [address] CLIA: [id number] Model Engine Mechanic: Peterson Kennedy M.D. GLUCOSE, POC Collected: 07/22/2018 Status: F Source: [facility] 8:00 PM [facility] REPOSITORY TYPE CODE TESTS RESULT OUT OF RANGE REFERENCE UNITS LAB GLUX 70-105 mg/dL High Glucose, 114 POC Performed By: #### GLUX #### Unless otherwise noted, all testing performed by [place] [address] CLIA: [id number] Model Engine Mechanic: Peterson Kennedy M.D. GLUCOSE, POC Collected: 07/22/2018 Status: F Source: [facility] 4:07 PM [facility] REPOSITORY TYPE CODE TESTS RESULT OUT OF RANGE REFERENCE UNITS LAB GLUX 70-105 mg/dL Normal Glucose, 88 POC Performed By: #### GLUX #### Unless otherwise noted, all testing performed by [place] [address] CLIA: [id number] Model Engine Mechanic: Peterson Kennedy M.D. GLUCOSE, POC Collected: 07/22/2018 Status: F Source: [facility] 11:26 AM [facility] REPOSITORY TYPE CODE TESTS RESULT OUT OF RANGE REFERENCE UNITS LAB GLUX 70-105 mg/dL High Glucose, 137 POC Performed By: #### GLUX #### Unless otherwise noted, all testing performed by [place] [address] CLIA: [id number] Model Engine Mechanic: Peterson Kennedy M.D. GLUCOSE, POC Collected: 07/22/2018 Status: F Source: [facility] 6:26 AM [facility] REPOSITORY TYPE CODE TESTS RESULT OUT OF RANGE REFERENCE UNITS LAB GLUX 70-105 mg/dL Normal Glucose, 96 POC Performed By: #### GLUX #### Unless otherwise noted, all testing performed by [place] [address] CLIA: [id number] Model Engine Mechanic: Peterson Kennedy M.D. GLUCOSE, POC Collected: 07/21/2018 Status: F Source: [facility] 7:48 PM [facility] REPOSITORY TYPE CODE TESTS RESULT OUT OF RANGE REFERENCE UNITS LAB GLUX 70-105 mg/dL Normal Glucose, 104 POC Performed By: #### GLUX #### Unless otherwise noted, all testing performed by [place] [address] CLIA: [id number] Model Engine Mechanic: Peterson Kennedy M.D. GLUCOSE, POC Collected: 07/21/2018 Status: F Source: [facility] 4:10 PM [facility] REPOSITORY TYPE CODE TESTS RESULT OUT OF RANGE REFERENCE UNITS LAB GLUX 70-105 mg/dL Normal Glucose, 82 POC Performed By: #### GLUX #### Unless otherwise noted, all testing performed by [place] [id number] CLIA: [id number] Model Engine Mechanic: Peterson Kennedy M.D. GLUCOSE, POC Collected: 07/21/2018 Status: F Source: [facility] 11:33 AM [facility] REPOSITORY TYPE CODE TESTS RESULT OUT OF RANGE REFERENCE UNITS LAB GLUX 70-105 mg/dL Normal Glucose, 88 POC Performed By: #### GLUX #### Unless otherwise noted, all testing performed by [place] [id number] CLIA: [id number] Model Engine Mechanic: Peterson Kennedy M.D. GLUCOSE, POC Collected: 07/21/2018 Status: F Source: [facility] 6:25 AM [facility] REPOSITORY TYPE CODE TESTS RESULT OUT OF RANGE REFERENCE UNITS LAB GLUX 70-105 mg/dL Normal Glucose, 84 POC Performed By: #### GLUX #### Unless otherwise noted, all testing performed by [place] [id number] CLIA: [id number] Model Engine Mechanic: Peterson Kennedy M.D. GLUCOSE, POC Collected: 07/20/2018 Status: F Source: [facility] 8:13 PM [facility] REPOSITORY TYPE CODE TESTS RESULT OUT OF RANGE REFERENCE UNITS LAB GLUX 70-105 mg/dL Normal Glucose, 86 POC Performed By: #### GLUX #### Unless otherwise noted, all testing performed by [place] [id number] CLIA: [id number] Model Engine Mechanic: Peterson Kennedy M.D. GLUCOSE, POC Collected: 07/20/2018 Status: F Source: [facility] 4:13 PM [facility] REPOSITORY TYPE CODE TESTS RESULT OUT OF RANGE REFERENCE UNITS LAB GLUX 70-105 mg/dL Normal Glucose, 78 POC Performed By: #### GLUX #### Unless otherwise noted, all testing performed by [place] [id number] CLIA: [id number] Model Engine Mechanic: Peterson Kennedy M.D. SPECIMEN ACCEPTABLE Collected: 07/20/2018 Status: F Source: [facility] (CDIF) 3:16 PM [facility] REPOSITORY TYPE CODE TESTS RESULT OUT OF REFERENCE UNITS RANGE LAB CDSPEC Specimen Normal Acceptable YES (CDIF) Result Comment: C. difficile testing result(s) to follow. Performed By: #### CDSPEC #### Unless otherwise noted, all testing performed by [place] [id number] CLIA: [id number] Model Engine Mechanic: Peterson Kennedy M.D. C. DIFFICILE ASSAY Collected: 07/20/2018 Status: F Source: [facility] 3:16 PM [facility] REPOSITORY TYPE CODE TESTS RESULT OUT OF REFERENCE UNITS RANGE LAB CDINTERP C. difficile Normal interpretation Negative for toxigenic C. difficile. Result Comment: Rapid test procedural control acceptable. Performed By: #### zCDIF #### Unless otherwise noted, all testing performed by [place] [id number] CLIA: [id number] Model Engine Mechanic: Peterson Kennedy M.D. 12 LEAD ELECTROCARDIOGRAM Observed: 07/20/2018 Status: F Source: [place] 1:57 PM [facility] REPOSITORY [facility] Cardiovascular Services [address] [place] [address] 12 Lead EKG 07/18/18 1641 MR#: [id number] Acct: [id number] Name: SIMI NIELSEN Rep #: [id number] : 1970 48 From: Marshall Ford MD Attending Dr: Adalgisa Alicea MD Status: DIS ALPHONSE Ordering Dr: Adalgisa Alicea MD Date: 07/18/18 Location: ICU Sex: F C Admitted: 07/18/18 Test Reason : CP Blood Pressure : / mmHG Vent. Rate : 077 BPM Atrial Rate : 077 BPM P-R Int : 138 ms QRS Dur : 084 ms QT Int : 430 ms P-R-T Axes : 056 006 031 degrees QTc Int : 486 ms Normal sinus rhythm Nonspecific ST and T wave abnormality Prolonged QT Abnormal ECG Confirmed by EDDY LEON, MARSHALL ([id number]), publication editor NAYANA SAWANT ([id number]) on 07/20/2018 1:57:06 PM Referred By: Lorena Chu Confirmed By:MARSHALL FORD MD 07/20/18 1357 Date Marshall Ford MD CC: Adalgisa Alicea MD; Lorena Chu; Paty Catalan DO Signed GLUCOSE, POC Collected: 07/20/2018 Status: F Source: [facility] 11:27 AM [facility] REPOSITORY TYPE CODE TESTS RESULT OUT OF RANGE REFERENCE UNITS LAB GLUX 70-105 mg/dL Normal Glucose, 91 POC Performed By: #### GLUX #### Unless otherwise noted, all testing performed by [place] [id number] CLIA: [id number] Model Engine Mechanic: Peterson Kennedy M.D. GLUCOSE, POC Collected: 07/20/2018 Status: F Source: [facility] 6:03 AM [facility] REPOSITORY TYPE CODE TESTS RESULT OUT OF RANGE REFERENCE UNITS LAB GLUX 70-105 mg/dL Normal Glucose, 84 POC Performed By: #### GLUX #### Unless otherwise noted, all testing performed by [place] [address] CLIA: [id number] Model Engine Mechanic: Peterson Kennedy M.D. GLUCOSE, POC Collected: 07/19/2018 Status: F Source: [facility] 8:03 PM [facility] REPOSITORY TYPE CODE TESTS RESULT OUT OF RANGE REFERENCE UNITS LAB GLUX 70-105 mg/dL Normal Glucose, 87 POC Performed By: #### GLUX #### Unless otherwise noted, all testing performed by [facility] [address] [place], [place] [address] CLIA: [id number] Model Engine Mechanic: Peterson Kennedy M.D. GLUCOSE, POC Collected: 07/19/2018 Status: F Source: [facility] 4:20 PM [facility] REPOSITORY TYPE CODE TESTS RESULT OUT OF RANGE REFERENCE UNITS LAB GLUX 70-105 mg/dL Normal Glucose, 100 POC Performed By: #### GLUX #### Unless otherwise noted, all testing performed by [facility] [address] [place], [place] [address] CLIA: [id number] Model Engine Mechanic: Peterson Kennedy M.D. DISCHARGE SUMMARY Observed: 07/19/2018 Status: F Source: [place] 4:13 PM [facility] REPOSITORY [facility] Medical Records Department [address] [place] [address] Discharge Summary 07/19/18 0759 MR#: [id number] Acct: [id number] Name: SIMI NIELSEN Rep #: [id number] : 1970 48 From: Adalgisa Alicea MD PCP: Paty Catalan DO Status: DIS ALPHONSE Y Location: ICU ICU06-1 Discharge Date and Diagnosis Date of Admission: 07/18/18 Date of Discharge: 07/19/18 - Primary Discharge Diagnosis Suicidal attempt Leucocytosis Hypokalemia STEPHANIE/dehydration - Secondary Discharge Diagnosis Chronic Problems (Last Reviewed 07/10/18 @ 06:23 by Quinten Trejo MD) Bipolar disorder (Chronic) Catatonia schizophrenia (Chronic) BALDEMAR (obstructive sleep apnea) (Chronic) CHF (congestive heart failure) (Chronic) HTN (hypertension) (Chronic) DVT (deep venous thrombosis) (Chronic) Hospital Course and Treatment Consultations 07/18/18 14:04 Consult: Mental Health/Crisis Routine Reason for consult?: SUICIDE ATTEMPT Date Notified:: 07/18/18 Time notified:: 14:04 Student Services Advisor Operations: None Procedures: None Summary of Care Provided: The patient is a 48 year old F past medical history of catatonic schizophrenia/bipolar, cardiomyopathy, hypertension, BALDEMAR, history of DVT/PE on chronic anticoagulation, type II DM, recently discharged from the hospital with worsening lethargy secondary to acute alternatives of hernia. Patient was discharged to a [facility] facility, and was brought to the emergency department with purposeful suicidal attempt with oral intake of 3 bottles of cleansing body solution. Patient was found to be hypokalemic, which was replaced, found to have AK I secondary dehydration. She was admitted to the ICU, received IV fluids,, firm to admitting staff that she had a plan to kill herself. Patient was seen by mental health specialist is admitted to a psych facility for further management. Subjective: Patient was seen and examined. She was drowsy at the time of exam. No other acute events previously. - Physical Exam General: Cooperative, Lethargic, - - obese HEENT: Atraumatic, PERRLA, EOMI, Normocephalic Oral: Moist Mucosa Neck: Supple, No JVD, Negative Carotid Bruits Lungs: Clear to auscultation, Normal air movement Cardiovascular: Regular rate, Regular Rhythm, Normal S1, Normal S2, No murmurs Abdomen: Bowel Sounds Present, Soft, Non Tender, Non-Distended, No Hepato-splenomegaly Extremities: No edema, Capillary Refill Less than 3 Seconds Skin: No rashes, No breakdown Musculoskeletal: No Tenderness to Palpation of Joints or Extremities Neurological: Cranial nerves II-XII grossly intact Psych/Mental Status: Normal Affect, Appropriate Vital Signs Temp Pulse Resp BP Pulse Ox 98.4 F 67 16 107/56 L 96 07/18/18 23:18 07/18/18 23:18 07/18/18 23:18 07/18/18 23:18 07/18/18 23:18 Oxygen Delivery Method Room Air Weight: 98.6 kg Body Mass Index (BMI) 37.3 Finger Stick Blood Glucose 92 Intake and Output for Last 24 Hours Intake Total 3646 / 3646 Output Total 600 / 600 Balance 3046 / 3046 Laboratory Tests Past 24 Hrs WBC 9.8 RBC 4.02 L Hgb 12.4 Hct 38.0 MCV 94.5 MCH 30.8 MCHC 32.6 RDW 12.4 RDW Differential 43.1 POC Glucose POC Glucose 99 99 120 H Discharge Diet: Low fat/ Low Cholesterol, 2000 mg Sodium Diet, Carb Control Diet Discharge Activity: Return to Normal Activity Home Medications: Medications to take at Discharge Carvedilol [Coreg (Beta Gabriela)] 3.125 mg PO BID 10/29/14 Lisinopril [Zestril] 2.5 mg PO DAILY 08/25/15 Furosemide 40 mg PO DAILY 03/09/17 Bupropion HCl [Wellbutrin Xl] 450 mg PO DAILY 06/26/18 Sertraline HCl [Zoloft] 200 mg PO DAILY 06/26/18 Metformin HCl ER 500 mg PO DAILY 07/09/18 Acetaminophen 650 mg RC Q4H PRN PRN 07/18/18 Acetaminophen [8 Hour] 650 mg PO Q4H PRN PRN 07/18/18 Apixaban [Eliquis] 5 mg PO BID 07/18/18 Bisacodyl 10 mg RC X1 PRN 07/18/18 Guaifenesin [Robitussin] 10 ml PO Q4H PRN PRN 07/18/18 Magnesium Hydroxide [Milk Of Magnesia] 30 ml PO DAILY PRN PRN 07/18/18 Olanzapine [Zyprexa] 5 mg PO QHS 07/18/18 Primary Care Physician: Paty Catalan DO [Primary Care Provider] - Disposition: Psych Hospital or Unit Minutes spent on discharge:: 40 Patient Condition:: Stable Medical Necessity - Tobacco Use Smoking Status: Former smoker Tobacco Use: Non-smoker Meaningful Use Info Meaningful Use Diagnoses (Choose all that apply): None applicable Code Visit OBSV E AND M: 62012 Observation care discharge 07/19/18 1613 <Electronically signed by Adalgisa Alicea MD> Date Adalgisa Alicea MD Cosigner Signature (if applicable): Date CC: Adalgisa Alicea MD; Paty Catalan DO Signed CT BRAIN W/O CONTRAST Observed: 07/19/2018 Status: F Source: [facility] 2:26 PM [facility] REPOSITORY Final Report Accession No: [id number] Performed: Jul 19 2018 2:26PM Examination: CT BRAIN W/O CONTRAST CT SCAN BRAIN, NONCONTRAST CLINICAL HISTORY: Confusion. COMPARISON: CT brain 03/28/2018. TECHNIQUE: Unenhanced helical imaging was acquired from skull base to vertex. Multiplanar images are submitted. Dose reduction techniques were achieved by using: automated exposure control and/or adjustment of mA and /or kV according to patient size and/or use of iterative reconstruction technique. FINDINGS: There is no acute intraaxial or extraaxial mass, shift, or bleed. Monaco-white junctions are well defined. The ventricles and sulci are age-appropriate. The pituitary and sella turcica are normal. The orbit and ocular contents are normal. The paranasal sinuses are clear. Calvarium is intact. IMPRESSION: 1. No acute intracranial event. 2. Clear sinuses. Interpreting Physician: KATHERINE JIMENEZ M.D. Trans: jacquien : cc: GLUCOSE, POC Collected: 07/19/2018 Status: F Source: [facility] 11:41 AM [facility] REPOSITORY TYPE CODE TESTS RESULT OUT OF RANGE REFERENCE UNITS LAB GLUX 70-105 mg/dL Normal Glucose, 89 POC Performed By: #### GLUX #### Unless otherwise noted, all testing performed by [facility] [address] [place], [place] [address] CLIA: [id number] Model Engine Mechanic: Peterson Kennedy M.D. DISCHARGE INSTRUCTION Observed: 07/19/2018 Status: F Source: [place] 7:59 AM [facility] REPOSITORY [facility] Medical Records Department [address] [place] [address] Instructions for Home/Discharge Instructions 07/19/18 0757 MR#: [id number] Acct: [id number] Name: SIMI NIELSEN Rep #: [id number] : 1970 48 From: Adalgisa Alicea MD PCP: Paty Catalan DO Status: DIS ALPHONSE - Discharge Diagnoses Reason(s) for Visit for Discharge Instructions: Suicidal attempt You will use the following diet at home:: Regular Your food should be the consistency of: Regular Your liquids should be the consistency of: Regular/Thin Discharge Activity: Return to Normal Activity Allergies/Adverse Reactions: Allergies No Known Allergies Allergy (Verified 07/18/18 00:21) Medications to take at Discharge Carvedilol [Coreg (Beta Gabriela)] 3.125 mg PO BID 10/29/14 Lisinopril [Zestril] 2.5 mg PO DAILY 08/25/15 Furosemide 40 mg PO DAILY 03/09/17 Bupropion HCl [Wellbutrin Xl] 450 mg PO DAILY 06/26/18 Sertraline HCl [Zoloft] 200 mg PO DAILY 06/26/18 Metformin HCl ER 500 mg PO DAILY 07/09/18 Acetaminophen 650 mg RC Q4H PRN PRN 07/18/18 Acetaminophen [8 Hour] 650 mg PO Q4H PRN PRN 07/18/18 Apixaban [Eliquis] 5 mg PO BID 07/18/18 Bisacodyl 10 mg RC X1 PRN 07/18/18 Guaifenesin [Robitussin] 10 ml PO Q4H PRN PRN 07/18/18 Magnesium Hydroxide [Milk Of Magnesia] 30 ml PO DAILY PRN PRN 07/18/18 Olanzapine [Zyprexa] 5 mg PO QHS 07/18/18 Primary Care Physician: Paty Catalan DO [Primary Care Provider] - Test Results: Test results from this visit will be discussed in further detail at your follow-up appointment, if applicable. Proposed Discharge Date: 07/18/18 07/19/18 0759 <Electronically signed by Adalgisa Alicea MD> Date Adalgisa Alicea MD CC: Louie Chaudhary MD; Paty Catalan DO Signed GLUCOSE, POC Collected: 07/19/2018 Status: F Source: [facility] 6:23 AM [facility] REPOSITORY TYPE CODE TESTS RESULT OUT OF RANGE REFERENCE UNITS LAB GLUX 70-105 mg/dL Normal Glucose, 105 POC Performed By: #### GLUX #### Unless otherwise noted, all testing performed by [facility] [employer] [facility] [address] [place], [place] [address] CLIA: [id number] Model Engine Mechanic: Peterson Kennedy M.D. CONSULTATION Observed: 07/19/2018 Status: F Source: [place] 5:57 AM [facility] REPOSITORY [facility] Medical Records Department [address] [place] [address] Consultation 07/18/18 0703 MR#: [id number] Acct: [id number] Name: SIMI NIELSEN Rep #: [id number] : 1970 48 From: Louie Chaudhary MD PCP: Paty Catalan DO Status: DIS ALPHONSE Y Location: ICU ICU06-1 Problem List (1) Suicide attempt by drug ingestion Status: Acute Qualifiers: Encounter type: initial encounter Qualified Code(s): T50.902A - Poisoning by unspecified drugs, medicaments and biological substances, intentional self-harm, initial encounter (2) Bipolar disorder Status: Chronic Qualifiers: Active/Remission status: remission status unspecified Qualified Code(s): F31.9 - Bipolar disorder, unspecified (3) Catatonia schizophrenia Status: Chronic (4) STEPHANIE (acute kidney injury) Status: Resolved (5) BALDEMAR (obstructive sleep apnea) Status: Chronic (6) CHF (congestive heart failure) Status: Chronic Qualifiers: Heart failure type: unspecified Heart failure chronicity: unspecified Qualified Code(s): I50.9 - Heart failure, unspecified (7) HTN (hypertension) Status: Chronic Qualifiers: Hypertension type: essential hypertension Qualified Code(s): I10 - Essential (primary) hypertension (8) DVT (deep venous thrombosis) Status: Chronic Qualifiers: Affected thrombotic vein of extremity: unspecified vein of extremity Chronicity: unspecified Laterality: unspecified laterality Reason for Consult Date of Consultation: 07/18/18 Reason for Consultation: Ingestion History of Present Illness: The patient is a 48 year old F, with past medical history listed below, who presented to [facility] on 07/18/2018 secondary to ingestion of 3 bottles of body soap intentionally while at a retirement. Patient reportedly had told the ER she was trying to peacefully. Patient reportedly had stated that she had heard some voices, but they are not told her to hurt her self. Patient does have a history of depression and catatonic schizophrenia. Patient did have an emesis on presentation to the emergency department, but denied any abdominal pain. Initial workup showed an elevated white blood cell count of 12.9 and slightly decreased potassium at 3.2. Patient was positive for amphetamines on tox screen, but alcohol was negative. Poison control was contacted and there was some concern for possible esophagitis versus gastritis, so patient was admitted to the intensive care unit for further evaluation. Since being in the intensive care unit, patient was relatively calm until approximately 6 AM. At that time, patient became impulsive and aggressive. Patient had removed her IV and stated that the staff are trying to kill her. Attempts at verbal redirection were unsuccessful. Patient did receive a new IV with Haldol IV with good response. Patient continued to try to get out of the bed, so had to be restrained. Patient is stating that she hears voices at this time, but will not tell me what they are saying. Patient continues to state I just wanted to make things right. Patient is not answering as to her intention on my investigation. Unable to obtain a full review of systems at this time. Past Medical History Past Medical History (Chronic Problems): Chronic Problems (Last Reviewed 07/10/18 @ 06:23 by Quinten Trejo MD) Bipolar disorder (Chronic) Catatonia schizophrenia (Chronic) BALDEMAR (obstructive sleep apnea) (Chronic) CHF (congestive heart failure) (Chronic) HTN (hypertension) (Chronic) DVT (deep venous thrombosis) (Chronic) Medical History: Medical History (Last Reviewed 07/10/18 @ 06:23 by Quinten Trejo MD) BALDEMAR (obstructive sleep apnea) (Chronic) G47.33 CHF (congestive heart failure) (Chronic) I50.9 HTN (hypertension) (Chronic) I10 Nausea AND vomiting (Resolved) R11.2 DVT (deep venous thrombosis) (Chronic) I82.409 Palpitation (Inactive) R00.2 Dizzy (Inactive) R42 Bipolar 1 disorder F31.9 Cardiomyopathy I42.9 Eczema L30.9 IBS (irritable bowel syndrome) K58.9 PUD (peptic ulcer disease) K27.9 Pulmonary embolism I26.99 Schizophrenia F20.9 Allergies No Known Allergies Allergy (Verified 07/18/18 00:21) Home Medications: Ambulatory Orders Medication Instructions Recorded Carvedilol [Coreg (Beta Gabriela)] 3.125 mg PO BID 10/29/14 Surgical History: Surgical History (Last Reviewed 07/10/18 @ 06:23 by Quinten Trejo MD) History of esophagogastroduodenoscopy (EGD) Z98.890 S/P cholecystectomy Z90.49 S/P dilation and curettage Z98.890 S/P hysterectomy Z90.710 S/P nasal septoplasty Z98.890 Surgical History: cholecystectomy, hysterectomy, - - nasa surgery Psychiatric History: Anxiety, Depression, Schizophrenia 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 Lives: [facility] Smoking Status: Former smoker Tobacco Use: Non-smoker Alcohol: None Drugs: None - *Family History Maternal Family History: Family History (Last Reviewed 07/10/18 @ 06:23 by Quinten Trejo MD) Mother Breast cancer History Items: Heart Disease Paternal Family History: Family History (Last Reviewed 07/10/18 @ 06:23 by Quinten Trejo MD) Mother Breast cancer History Items: Cancer, - - colon cancer Review of Systems Unable to obtain accurate/complete ROS d/t: See HPI Patient Problems: Active and Suspected Problems (Last Reviewed 07/10/18 @ 06:23 by Quinten Trejo MD) Suicide attempt by drug ingestion (Acute) - Physical Exam General: Alert, Confused, Disoriented, Non-Cooperative, - - Obese. No conversational dyspnea. HEENT: Atraumatic, PERRLA, EOMI, Normocephalic, - - Glasses in place. Oral: Moist Mucosa, No Gingival or Mucosal Lesions/ Ulcerations Neck: Supple, No JVD, No Nodes, Trachea Midline Lungs: Clear to auscultation, Normal air movement, No rhonchi, No wheeze, No rales, - - Symmetric expansion. No dullness to percussion. Cardiovascular: Regular rate, Regular Rhythm, Normal S1, Normal S2, No murmurs, No rub noted, No Gallop Abdomen: Bowel Sounds Present, Soft, Non Tender, Non-Distended, Obese Extremities: No clubbing, No cyanosis, No edema, Capillary Refill Less than 3 Seconds Skin: No rashes, No breakdown Musculoskeletal: No Tenderness to Palpation of Joints or Extremities Lymphatic: No Cervical, Supraclavicular, or Inguinal Adenopathy Neurological: Cranial nerves II-XII grossly intact, Neuro grossly intact, Motor Exam 5/5 strength throughout Psych/Mental Status: Anxious, Impulsive, Restless Vital Signs Temp Pulse Resp BP Pulse Ox 37.0 C 83 19 H 108/62 97 07/18/18 04:00 07/18/18 07:00 07/18/18 07:00 07/18/18 07:00 07/18/18 06:06 Oxygen Delivery Method Room Air Weight: 98.6 kg Body Mass Index (BMI) 37.3 Finger Stick Blood Glucose 92 Intake and Output for Last 24 Hours Intake Total 900 / 900 Balance 900 / 900 Laboratory Tests Past 24 Hrs WBC 12.9 H RBC 4.62 Hgb 14.5 Hct 42.7 WBC RBC Hgb Hct WBC 12.6 H RBC 4.23 Hgb 13.3 POC Glucose POC Glucose 98 Assessment/Plan Active and Suspected Problems (Last Reviewed 07/10/18 @ 06:23 by Quinten Trejo MD) Suicide attempt by drug ingestion (Acute) RECOMMENDATIONS: 1. Continue Haldol as needed for agitation 2. Possibly reinitiate baseline medications once patient more appropriate 3. Crisis evaluation later today 4. Recheck labs at 12:00 IMPRESSIONS: 1. Suicide attempt with history of catatonic schizophrenia and bipolar disorder Patient appears to be actively hallucinating by my evaluation. Patient does have multiple psychiatric medications at baseline. Patient appears to be in a psychotic crisis leading to ingestion. Poison control reports that esophagitis and gastritis should be evident after 4 hours. Haldol has been given for acute agitation. We will recheck electrolytes and CBC at noon. If stable, possible crisis evaluation later today. 2. Acute kidney injury/hypokalemia Possible toxic effects of ingestion. We will recheck electrolytes later today. Patient appears to be responding well to IV hydration. No indication for renal replacement therapy at this time. 3. Reported CHF/hypertension/hyperlipidemia Unclear status of patient's heart. Patient is on Lasix at baseline. Lisinopril and Lasix have been held secondary to acute kidney injury. Patient can continue with Coreg therapy. Patient is reportedly not on a statin therapy at baseline. 4. Diabetes mellitus/reported BALDEMAR/obesity/history of DVT PE Complicates care, management, recovery and prognosis. Patient can likely be continued on anticoagulation from a medical standpoint. Code Visit Inpatient E AND M: 98836 Init Hosp L2 07/19/18 0557 <Electronically signed by Louie Chaudhary MD> Date Louie Chaudhary MD Cosigner Signature (if applicable): Date CC: Lorena Chu; Louie Chaudhary MD; Paty Catalan DO Signed BEDSIDE GLUCOSE Collected: 07/18/2018 Status: F Source: [place] 9:27 PM [facility] REPOSITORY TYPE CODE TESTS RESULT OUT OF RANGE REFERENCE UNITS LAB L501.080 70-110 mg/dL Normal BEDSIDE GLU 99 Result Comment: MANAGEMENT OF PATIENT CARE PER NURSING PROTOCOL Performed By: #### L501.080 #### [facility] Point of Care [address] [place] [address] BEDSIDE GLUCOSE Collected: 07/18/2018 Status: F Source: [place] 4:12 PM [facility] REPOSITORY TYPE CODE TESTS RESULT OUT OF RANGE REFERENCE UNITS LAB L501.080 70-110 mg/dL Normal BEDSIDE GLU 99 Result Comment: MANAGEMENT OF PATIENT CARE PER NURSING PROTOCOL Performed By: #### L501.080 #### [facility] Point of Care [address] [address] CBC W/DIFF, AUTOMATED Collected: 07/18/2018 Status: F Source: [place] 12:05 PM [facility] REPOSITORY TYPE CODE TESTS RESULT OUT OF RANGE REFERENCE UNITS LAB L100.1000 4.4-11.0 K/mm3 Normal WBC 9.8 LAB L100.1200 4.2-5.4 M/mm3 Low RBC 4.02 LAB L100.1300 12.0-15.0 g/dl Normal HGB 12.4 LAB L100.1400 37-47 % Normal HCT 38.0 LAB L100.1500 81-99 fL Normal MCV 94.5 LAB L100.1600 27.0-32.0 pg Normal MCH 30.8 LAB L100.1700 32-36 g/gl Normal MCHC 32.6 LAB L100.1810 11.6-14.6 % Normal RDW CV 12.4 LAB L100.1820 35.1-43.9 fl Normal RDW SD 43.1 LAB L100.1900 150-450 K/mm3 Normal PLT 207 LAB L100.2000 6.2-12.0 fl Normal MPV 10.6 LAB L100.2100 47-70 % High NEUT% 74.3 LAB L100.2200 19-41 % Low LY% 18.4 LAB L100.2300 0-10 % Normal MONO% 6.5 LAB L100.2400 0-5 % Normal EO% 0.6 LAB L100.2500 0-1 % Normal BASO% 0.1 LAB L100.2550 0.0-0.9 % Normal IM GRAN % 0.100 Result Comment: IG% - Immature Granulocytes (promyelocytes, myelocytes and metamyelocytes) > 1% indicates that a LEFT SHIFT is Present. LAB L100.2620 2.0-7.7 X10 3/uL Normal Absolute Neut 7.3 LAB L100.2720 0.83-4.51 X10 3/ul Normal Absolute Lymph 1.81 Performed By: #### L100.0100 #### [facility] [address] [place], [place], [id number] BASIC METABOLIC Collected: 07/18/2018 Status: F Source: [place] [facility] ([facility]) 12:05 PM [facility] REPOSITORY TYPE CODE TESTS RESULT OUT OF RANGE REFERENCE UNITS LAB L501.0100 74-106 mg/dL Normal GLU 101 Result Comment: Fasting Glucose result from 100 to 125 mg/dL suggests IMPAIRED HOMEOSTASIS per A.D.A. criteria. Please note revised GLUCOSE reference range effective 2017. LAB L501.1000 7-18 mg/dL High BUN 32 LAB L501.1100 0.55-1.02 mg/dL Normal CREAT,SERUM 0.99 Result Comment: The validity of the calculated GFR AND GFRAA in patients over 70 years has not been determined. Clinical correlation is essential. LAB L501.1110 >60 mL/min Normal EST GFR 63 Result Comment: Non- GFR Calc LAB L501.1115 >60 mL/min Normal EST GFR - AA 76 Result Comment: GFR Calc LAB L501.1255 ml/min Normal Estimated CRCL 58.71 LAB L501.1300 10-20 RATIO High BUN/CRE 32.4 LAB L501.2200 8.5-10 mg/dL Low .1 CA 8.1 LAB L501.5300 136-14 mmol/L Normal 5 NA 140 LAB L501.5600 3.5-5. mmol/L Normal 1 K 3.9 Result Comment: Slight Hemolysis, Result may be falsely increased. LAB L501.5900 98-107 mmol/L Normal CL 107 LAB L501.6100 21.0-32.0 mmol/L Normal CO2 25.0 LAB L501.6200 5-15 Normal 8 GAP Performed By: #### L500.2500, L501.2300, L501.5200 #### [facility] [address] [place], [place], [address] PHOSPHORUS Collected: 07/18/2018 Status: F Source: [place] 12:05 PM [facility] REPOSITORY TYPE CODE TESTS RESULT OUT OF RANGE REFERENCE UNITS LAB L501.2300 2.5-4.9 mg/dL Normal PHOS 3.6 Performed By: #### L500.2500, L501.2300, L501.5200 #### [facility] [address] [place], [place], [address] MAGNESIUM Collected: 07/18/2018 Status: F Source: [place] 12:05 PM [facility] REPOSITORY TYPE CODE TESTS RESULT OUT OF RANGE REFERENCE UNITS LAB L501.5200 1.6-2.6 mg/dL Normal MG 2.2 Result Comment: Slight Hemolysis, Result may be falsely increased. Performed By: #### L500.2500, L501.2300, L501.5200 #### [facility] [address] [place], [place], [address] BEDSIDE GLUCOSE Collected: 07/18/2018 Status: F Source: [place] 11:24 AM [facility] REPOSITORY TYPE CODE TESTS RESULT OUT OF REFERENCE UNITS RANGE LAB L501.080 70-110 mg/dL High BEDSIDE GLU 120 Result Comment: MANAGEMENT OF PATIENT CARE PER NURSING PROTOCOL Performed By: #### L501.080 #### [facility] Point of Care [address] [place], [place] [id number] BEDSIDE GLUCOSE Collected: 07/18/2018 Status: F Source: [place] 5:59 AM [facility] REPOSITORY TYPE CODE TESTS RESULT OUT OF RANGE REFERENCE UNITS LAB L501.080 70-110 mg/dL Normal BEDSIDE GLU 98 Result Comment: MANAGEMENT OF PATIENT CARE PER NURSING PROTOCOL Performed By: #### L501.080 #### [facility] Point of Care [address] [facility] [place] [address] CBC W/DIFF, AUTOMATED Collected: 07/18/2018 Status: F Source: [place] 4:20 AM [facility] REPOSITORY TYPE CODE TESTS RESULT OUT OF RANGE REFERENCE UNITS LAB L100.1000 4.4-11.0 K/mm3 High WBC 12.6 LAB L100.1200 4.2-5.4 M/mm3 Normal RBC 4.23 LAB L100.1300 12.0-15.0 g/dl Normal HGB 13.3 LAB L100.1400 37-47 % Normal HCT 39.4 LAB L100.1500 81-99 fL Normal MCV 93.1 LAB L100.1600 27.0-32.0 pg Normal MCH 31.4 LAB L100.1700 32-36 g/gl Normal MCHC 33.8 LAB L100.1810 11.6-14.6 % Normal RDW CV 12.3 LAB L100.1820 35.1-43.9 fl Normal RDW SD 41.2 LAB L100.1900 150-450 K/mm3 Normal PLT 236 LAB L100.2000 6.2-12.0 fl Normal MPV 10.5 LAB L100.2100 47-70 % High NEUT% 75.8 LAB L100.2200 19-41 % Low LY% 15.9 LAB L100.2300 0-10 % Normal MONO% 7.7 LAB L100.2400 0-5 % Normal EO% 0.2 LAB L100.2500 0-1 % Normal BASO% 0.2 LAB L100.2550 0.0-0.9 % Normal IM GRAN % 0.200 Result Comment: IG% - Immature Granulocytes (promyelocytes, myelocytes and metamyelocytes) > 1% indicates that a LEFT SHIFT is Present. LAB L100.2620 2.0-7.7 X10 3/uL High Absolute Neut 9.6 LAB L100.2720 0.83-4.51 X10 3/ul Normal Absolute Lymph 2.01 Performed By: #### L100.0100 #### [facility] [address] [place], [address] COMPREHENSIVE METABOLIC Collected: 07/18/2018 Status: F Source: [facility] 4:20 AM [facility] REPOSITORY TYPE CODE TESTS RESULT OUT OF RANGE REFERENCE UNITS LAB L501.0100 74-106 mg/dL High GLU 116 Result Comment: Fasting Glucose result from 100 to 125 mg/dL suggests IMPAIRED HOMEOSTASIS per A.D.A. criteria. Please note revised GLUCOSE reference range effective 2017. LAB L501.1000 7-18 mg/dL High BUN 37 LAB L501.1100 0.55-1.02 mg/dL High CREAT,SERUM 1.18 Result Comment: The validity of the calculated GFR AND GFRAA in patients over 70 years has not been determined. Clinical correlation is essential. LAB L501.1110 >60 mL/min Low EST GFR 51 Result Comment: Non- GFR Calc LAB L501.1115 >60 mL/min Normal EST GFR - AA 62 Result Comment: GFR Calc LAB L501.1255 ml/min Normal Estimated CRCL 49.25 LAB L501.1300 10-20 RATIO High BUN/CRE 31.4 LAB L501.1500 6.4-8. g/dL Normal 2 T PROT 7.4 LAB L501.1800 3.2-5. g/dL Normal 0 ALB 3.5 LAB L501.1950 2.2-4. g/dL Normal 2 GLOB 3.9 LAB L501.2000 0.9-2. RATIO Normal 4 A/G 0.9 LAB L501.2200 8.5-10 mg/dL Normal .1 CA 8.5 LAB L501.4100 15-37 U/L Normal AST 18 LAB L501.4305 45-117 U/L Normal ALK P 86 LAB L501.4405 13-56 U/L Normal ALT 22 LAB L501.4600 0.20-1 mg/dL Normal .00 T BILI 0.70 LAB L501.5300 136-14 mmol/L Normal 5 NA 142 LAB L501.5600 3.5-5. mmol/L Normal 1 K 3.5 LAB L501.5900 98-107 mmol/L Normal CL 104 LAB L501.6100 21.0-3 mmol/L Normal 2.0 CO2 28.0 LAB L501.6200 5-15 Normal GAP 10 Performed By: #### L500.4050, L501.5200 #### [facility] [address] [place], [address] MAGNESIUM Collected: 07/18/2018 Status: F Source: [place] 4:20 AM [facility] REPOSITORY TYPE CODE TESTS RESULT OUT OF RANGE REFERENCE UNITS LAB L501.5200 1.6-2.6 mg/dL Normal MG 2.3 Performed By: #### L500.4050, L501.5200 #### [facility] [address] [place], [address] HISTORY AND PHYSICAL Observed: 07/18/2018 Status: F Source: [place] [facility] 3:08 AM [facility] REPOSITORY [facility] Medical Records Department [address] [place] [id number] History and Physical 07/18/18 0230 MR#: [id number] Acct: [id number] Name: NIELSENSIMI J Rep #: [id number] : 1970 48 From: Lorena Chu PCP: Paty Catalan DO Status: REG ER Y Location: ED Problem List (1) Suicide attempt by drug ingestion Status: Acute Qualifiers: Encounter type: initial encounter Qualified Code(s): T50.902A - Poisoning by unspecified drugs, medicaments and biological substances, intentional self-harm, initial encounter (2) Bipolar disorder Status: Chronic Qualifiers: Active/Remission status: remission status unspecified Qualified Code(s): F31.9 - Bipolar disorder, unspecified (3) Catatonia schizophrenia Status: Chronic (4) BALDEMAR (obstructive sleep apnea) Status: Chronic (5) CHF (congestive heart failure) Status: Chronic Qualifiers: Heart failure type: unspecified Heart failure chronicity: unspecified Qualified Code(s): I50.9 - Heart failure, unspecified (6) HTN (hypertension) Status: Chronic Qualifiers: Hypertension type: essential hypertension Qualified Code(s): I10 - Essential (primary) hypertension (7) DVT (deep venous thrombosis) Status: Chronic Qualifiers: Affected thrombotic vein of extremity: unspecified vein of extremity Chronicity: unspecified Laterality: unspecified laterality History of Present Illness Date of Admission: 07/18/18 Chief Complaint: Suicide attempt. The patient is a 48 y/o F w/ PMHx: Catatonic schizophrenia, bipolar disorder, CHF unclear type and cardiomyopathy unclear type, hypertension, BALDEMAR, peptic ulcer disease, history of DVT and PE on anticoagulation oral therapy, Diabetes mellitus type II, recently discharged following admission from 07/09/18-07/15/18 w/ transition to SNF following evaluation and treatment for possibly worsening lethargy managed as an acute catatonic schizophrenic with Zyprexa initially held with improvement in mentation with restart once more alert in addition to noted hyper ammonia of unclear etiology which resolved who now re-presents from SNF to the [facility] ED on 07/18/18 with purposeful suicide intention with oral intake of 3 bottles of uncertain size of cleansing body solution with per poison control possibility of positive ion toxicity with risk of esophageal burn with nausea and emesis while in the ED with report to ED physician that she wishes to pass peacefully. She does admit that she has been hearing voices while at the [facility] facility but states that these have not told her to hurt herself or anyone else. In the ED work-up included CBC with W BC 12.9, hemoglobin 14.5, platelet 268 with left shift, CMP with potassium 3.2, BUN/Cr 44/1.53, glucose 175, unremarkable hepatic profile, urine drug screen with positive amphetamine and methamphetamine. The ED patient administered Zofran, normal saline. Past Medical History Past Medical History (Chronic Problems): Chronic Problems (Last Reviewed 07/10/18 @ 06:23 by Quinten Trejo MD) Bipolar disorder (Chronic) Catatonia schizophrenia (Chronic) BALDEMAR (obstructive sleep apnea) (Chronic) CHF (congestive heart failure) (Chronic) HTN (hypertension) (Chronic) DVT (deep venous thrombosis) (Chronic) Medical History: Medical History (Last Reviewed 07/10/18 @ 06:23 by Quinten Trejo MD) BALDEMAR (obstructive sleep apnea) (Chronic) G47.33 CHF (congestive heart failure) (Chronic) I50.9 HTN (hypertension) (Chronic) I10 Nausea AND vomiting (Resolved) R11.2 DVT (deep venous thrombosis) (Chronic) I82.409 Palpitation (Inactive) R00.2 Dizzy (Inactive) R42 Bipolar 1 disorder F31.9 Cardiomyopathy I42.9 Eczema L30.9 IBS (irritable bowel syndrome) K58.9 PUD (peptic ulcer disease) K27.9 Pulmonary embolism I26.99 Schizophrenia F20.9 Allergies No Known Allergies Allergy (Verified 07/18/18 00:21) Home Medications: Ambulatory Orders Medication Instructions Recorded Carvedilol [Coreg (Beta Gabriela)] 3.125 mg PO BID 10/29/14 Surgical History: Surgical History (Last Reviewed 07/10/18 @ 06:23 by Quinten Trejo MD) History of esophagogastroduodenoscopy (EGD) Z98.890 S/P cholecystectomy Z90.49 S/P dilation and curettage Z98.890 S/P hysterectomy Z90.710 S/P nasal septoplasty Z98.890 Surgical History: cholecystectomy, hysterectomy, - - nasa surgery Psychiatric History: Anxiety, Depression, Schizophrenia 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 Lives: [facility] Smoking Status: Former smoker Tobacco Use: Non-smoker Alcohol: None Drugs: None - *Family History Maternal Family History: Family History (Last Reviewed 07/10/18 @ 06:23 by Quinten Trejo MD) Mother Breast cancer History Items: Heart Disease Paternal Family History: Family History (Last Reviewed 07/10/18 @ 06:23 by Quinten Trejo MD) Mother Breast cancer History Items: Cancer, - - colon cancer VTE Information - Inpt Only VTE Present on Admission: No VTE Mechan Device Prophylaxis: SCD's VTE Pharm Prophylaxis ordered?: Yes Patient Problems: Active and Suspected Problems (Last Reviewed 07/10/18 @ 06:23 by Quinten Trejo MD) Suicide attempt by drug ingestion (Acute) Subjective: Seated upright in ED bed, intermittently tearful, admits to suicidal thoughts and attempt. Objective: Physical Examination: General: awake, alert, oriented to self, place, recent events, remains cooperative, seated upright in the ED bed, tearful during examination. Skin: normal color, turgor, no icterus, cyanosis. HEENT: AT/NC, EOMI, PERRLA, mildly dry MM, no carotid bruits or JVD noted. Lungs: CTA bilaterally, moderate effort, mild decrease BL bases, no rales, ronchi or wheezing. Heart: Regular rate and rhythm; no gallop, rub audible. Abdomen: soft, obese, NTTP, ND, normal BS, no HSM. Extremities: no cyanosis, clubbing, or edema. Neurological: patient awake, alert, oriented as noted; cognitive function appears intact but decreased from recent baseline upon SNF transition; pupils equally reactive to light and accomodation; cranial nerves II-XII grossly normal, moving all 4 extremities, no focal deficits, strength preserved. Psychiatric: affect appears tearful, mildly agitated, admits to suicide attempt. - Physical Exam Vital Signs Temp Pulse Resp BP Pulse Ox 98.0 F 85 16 114/82 H 94 07/17/18 23:57 07/18/18 02:06 07/18/18 02:06 07/18/18 02:06 07/18/18 02:06 Oxygen Delivery Method Room Air Weight: 222 lb Body Mass Index (BMI) 38.0 Finger Stick Blood Glucose 92 Laboratory Tests Past 24 Hrs WBC 12.9 H WBC RBC Hgb Hct MCV MCH MCHC RDW RDW Differential Plt Count MPV Immature Gran % (Auto) Neut % (Auto) Lymph % (Auto) Ballard % (Auto) Assessment/Plan All Active Problems (Last Reviewed 07/10/18 @ 06:23 by Quinten Trejo MD) Suicide attempt by drug ingestion (Acute) Diarrhea (Resolved) Acute encephalopathy (Resolved) Lactic acid acidosis (Resolved) STEPHANIE (acute kidney injury) (Resolved) Hyperammonemia (Acute) Nausea AND vomiting (Resolved) The patient is a 48 y/o F w/ PMHx: Catatonic schizophrenia, bipolar disorder, CHF unclear type and cardiomyopathy unclear type, hypertension, BALDEMAR, peptic ulcer disease, history of DVT and PE on anticoagulation oral therapy, Diabetes mellitus type II, recently discharge following admission from 07/09/18-07/15/18 w/ worsening lethargy managed as an acute catatonic schizophrenic with Zyprexa initially held with improvement who now re-presents from SNF to the [facility] ED on 07/18/18 with purposeful suicide intention with oral intake of 3 bottles of uncertain size of cleansing body solution. (1) Catatonic schizophrenia, bipolar disorder w/ Suicide Ingestion Attempt: Per poison control noted positive and toxicity possibility with risk primarily of esophageal burn, given patient presentation, recent catatonic schizophrenic acute episode with eventual transition to [facility] facility, will admit to the ICU, maintain on suicide precautions, continue to hydrate, continue home Zoloft, Wellbutrin and Zyprexa regimen which have been altered from her initial regimen prior she had been notably lethargic, sedate and catatonic therefore these have been restarted at a lower dose which will eventually need to be transitioned upward but will defer this to inpatient psychiatric facility, request ICU consultation, request crisis evaluation with repeat a.m. labs with need for transition to inpatient psychiatric facility. (2) Acute kidney injury: Secondary to intake, dehydration, acute presentation. Admission BUN/Cr 44/1.53, prior baseline creatinine noted to be 0.8. Will hydrate, hold nephrotoxic medications and repeat chemistry in AM. (3) Hypokalemia: Admission K+ 3.2, supplementation given, repeat level in AM. (4) CHF Unclear type, Cardiomyopathy Unclear Type: Will maintain on hydration given acute presentation, monitor pulmonary status, continue home Coreg, holding lisinopril and Lasix given AK I presentation, not on statin therapy. (5) Hypertension: Continue home regimen including Coreg, holding lisinopril and Lasix temporarily given STEPHANIE, PRN hydralazine. (6) Hyperlipidemia: Not on regimen, defer given acute presentation (7) Diabetes mellitus type II: Hold oral home regimen, ADA diet, accu checks w/ ISS. (8) History of PE/DVT: Maintain on home eliquis regimen which upon discharge had been reinitiated at 10 mg twice daily times 7 days with eventual transition to 5 mg twice daily secondary to prior cessation. (9) PUD/GERD: PPI. (10) BALDEMAR: CPAP if patient amenable. (11) Obesity: Weight loss and lifestyle changes encouraged. (12) DVT Prophylaxis: SCDs, eliquis. Code Visit OBSV E AND M: 08019 Initial observation care L3 07/18/18 0308 <Electronically signed by Lorena Chu > Date Lorena Chu Cosigner Signature: Date (if applicable) CC: Lorena Chu; Paty Catalan DO Signed EMERGENCY DEPARTMENT Observed: 07/18/2018 Status: F Source: [place] SUMMARY 2:49 AM [facility] REPOSITORY [facility] Medical Records Department [address] [facility] [place] [address] Emergency Department Summary 07/18/18 0247 MR#: [id number] Acct: [id number] Name: SIMI NIELSEN Rep #: [id number] : 1970 48 From: Gabriel Menard DO PCP: Paty Catalan DO Status: REG ER - ER Visit Summary Date of Service: 07/18/18 Chief Complaint: [Ingestion and suicidal ideation] History of Present Illness: The patient is a 48 F [presents to the emergency department from retirement after an intentional ingestion of 3 bottles of body soap. Patient tells me she was trying to peacefully. Patient denies any hallucinations currently. Patient does have a history of depression. Patient denies any chest pain or abdominal pain. Patient did vomit on arrival to the emergency department. Patient is unable to tell me when the ingestion occurred. She denies any abdominal pain currently.] Physical Examination: [HEENT-PERRLA, EOMI. Cranial nerves II through XII grossly intact. TMs clear. Mucous membranes moist. No adenopathy. Cardiovascular-regular rate and rhythm without murmur or ectopy Lungs-clear to auscultation, chest wall stable without crepitus or subcu emphysema Abdomen-normoactive bowel sounds, soft, nontender, no rebound or rigidity, no peritoneal signs. Extremities-intact 4, normal range of motion, normal pulses, atraumatic] Test Results: [CBC with differential obtained showed a white blood cell count of 12.9, hemoglobin 14, hematocrit 43, platelets 268. Chemistries unremarkable other than a slightly depressed potassium at 3.2. Toxicology screen was positive for amphetamines. Alcohol was negative.] Emergency Department Course and Treatment: [Patient received normal saline and Zofran for her nausea. Case was discussed with poison control.] Treatment Plan: [With the ingestion there is concern for possibility of rojas to the esophagus. Patient will be admitted for an observation. And then evaluation by crisis for psychiatric facility.] Disposition: [Admit] Impression: [Ingestion Suicidal ideation Depression] This note was generated with Alverixation software. It may contain incorrect words, spelling, and punctuation that were not noted in review of the chart prior to signing ED Disposition - Plan for ED Patient: Chief Complaint: Suicidal Referrals: Paty Catalan DO [Primary Care Provider] - What to do if you have Problems For any increased pain, shortness of breath, bleeding, nausea or vomiting, chest pain, or any unexpected problems, contact your Primary Care Provider. Call [facility] ([phone]) or report to the closest Emergency Room. Call 911 if necessary. 07/18/18 0249 <Electronically signed by Gabriel Menard DO> Date Gabriel Menard DO Cosigner Signature (If Indicated): Date CC: Paty Catalan DO URINE DRUG SCREEN Collected: 07/18/2018 Status: F Source: [place] ([facility] 12:45 AM [facility] REPOSITORY Order Comment: Order Date: 07/18/18 Has pt arrived? Y TYPE CODE TESTS RESULT OUT OF RANGE REFERENCE UNITS LAB L505.0075 TO BE Normal CONFIRMED Result Comment: CONFIRMATORY TESTING FOR ALL POSITIVE URINE DRUG SCREEN RESULTS WILL ONLY BE SENT OUT UPON PHYSICIAN ORDER. VISTA Urine Drug Screen methods provide only preliminary analytical test results. A more specific alternate chemical method must be used in order to obtain a confirmed analytical result. Gas chromatography/mass spectrometery (GC/MS) is the preferred confirmatory method. Clinical consideration and professional judgement should be applied to any drug of abuse test result, particularly when preliminary positive results are used. URINE TCA TESTING MUST BE ORDERED SEPARATELY. USE TEST MNEMONIC: [facility] LAB L505.5005 VISTA UDS PH 5 Normal LAB L505.5015 <1000 High ng/mL AMPHETAMINES POSITIVE LAB L505.5025 < 200 ng/mL BARBITIURATES Normal NEGATIVE LAB L505.5035 < 200 ng/mL BENZODIAZIPINE Normal NEGATIVE LAB L505.5045 < 300 ng/mL COCAINE Normal NEGATIVE LAB L505.5055 < 500 High ng/mL ECSTACY POSITIVE LAB L505.5065 < 300 ng/mL METHADONE Normal NEGATIVE LAB L505.5075 < 300 ng/mL OPIATES Normal NEGATIVE LAB L505.5085 < 25 ng/mL PCP Normal NEGATIVE LAB L505.5095 < 50 ng/mL THC Normal NEGATIVE Performed By: #### L505.5000 #### [facility] [address] [place], [address] CBC W/DIFF, AUTOMATED Collected: 07/18/2018 Status: F Source: [place] 12:05 AM [facility] REPOSITORY TYPE CODE TESTS RESULT OUT OF RANGE REFERENCE UNITS LAB L100.1000 4.4-11.0 K/mm3 High WBC 12.9 LAB L100.1200 4.2-5.4 M/mm3 Normal RBC 4.62 LAB L100.1300 12.0-15.0 g/dl Normal HGB 14.5 LAB L100.1400 37-47 % Normal HCT 42.7 LAB L100.1500 81-99 fL Normal MCV 92.4 LAB L100.1600 27.0-32.0 pg Normal MCH 31.4 LAB L100.1700 32-36 g/gl Normal MCHC 34.0 LAB L100.1810 11.6-14.6 % Normal RDW CV 12.3 LAB L100.1820 35.1-43.9 fl Normal RDW SD 41.1 LAB L100.1900 150-450 K/mm3 Normal PLT 268 LAB L100.2000 6.2-12.0 fl Normal MPV 10.9 LAB L100.2100 47-70 % High NEUT% 79.2 LAB L100.2200 19-41 % Low LY% 12.9 LAB L100.2300 0-10 % Normal MONO% 6.9 LAB L100.2400 0-5 % Normal EO% 0.6 LAB L100.2500 0-1 % Normal BASO% 0.2 LAB L100.2550 0.0-0.9 % Normal IM GRAN % 0.200 Result Comment: IG% - Immature Granulocytes (promyelocytes, myelocytes and metamyelocytes) > 1% indicates that a LEFT SHIFT is Present. LAB L100.2620 2.0-7.7 X10 3/uL High Absolute Neut 10.3 LAB L100.2720 0.83-4.51 X10 3/ul Normal Absolute Lymph 1.67 Performed By: #### L100.0100 #### [facility] [address] [place], [address] COMPREHENSIVE METABOLIC Collected: 07/18/2018 Status: F Source: [facility] 12:05 AM [facility] REPOSITORY TYPE CODE TESTS RESULT OUT OF RANGE REFERENCE UNITS LAB L501.0100 74-106 mg/dL High GLU 175 Result Comment: Fasting Glucose result greater than or equal to 126 mg/dL suggests DIABETES MELLITUS per A.D.A. criteria. Please note revised GLUCOSE reference range effective 2017. LAB L501.1000 7-18 mg/dL High BUN 44 LAB L501.1100 0.55-1.02 mg/dL High CREAT,SERUM 1.53 Result Comment: The validity of the calculated GFR AND GFRAA in patients over 70 years has not been determined. Clinical correlation is essential. LAB L501.1110 >60 mL/min Low EST GFR 38 Result Comment: Non- GFR Calc LAB L501.1115 >60 mL/min Low EST GFR - AA 46 Result Comment: GFR Calc LAB L501.1255 ml/min Normal Estimated CRCL 37.99 LAB L501.1300 10-20 RATIO High BUN/CRE 28.8 LAB L501.1500 6.4-8. g/dL High 2 T PROT 8.5 LAB L501.1800 3.2-5. g/dL Normal 0 ALB 4.0 LAB L501.1950 2.2-4. g/dL High 2 GLOB 4.5 LAB L501.2000 0.9-2. RATIO Normal 4 A/G 0.9 LAB L501.2200 8.5-10 mg/dL Normal .1 CA 9.0 LAB L501.4100 15-37 U/L Normal AST 23 LAB L501.4305 45-117 U/L Normal ALK P 99 LAB L501.4405 13-56 U/L Normal ALT 23 LAB L501.4600 0.20-1 mg/dL Normal .00 T BILI 0.80 LAB L501.5300 136-14 mmol/L Normal 5 NA 139 LAB L501.5600 3.5-5. mmol/L Low 1 K 3.2 LAB L501.5900 98-107 mmol/L Normal CL 102 LAB L501.6100 21.0-3 mmol/L Normal 2.0 CO2 23.0 LAB L501.6200 5-15 Normal GAP 14 Performed By: #### L500.4050 #### [facility] [address] [facility] [place], [place], [address] ALCOHOL, BLOOD Collected: 07/18/2018 Status: F Source: [place] ([facility])-SERUM 12:05 AM [facility] REPOSITORY TYPE CODE TESTS RESULT OUT OF RANGE REFERENCE UNITS LAB L501.9100 mg/dL Normal SERUM 15.0 ETOH Result Comment: The serum:whole blood ethanol ratio is approximately 1.14 and varies slightly with hematocrit. Medical Alcohol reference interval and critical value in non-tolerant individuals; 50 - 100 Impairment 100 Intoxication 100 - 250 Severe Poisoning 250 - 400 Deep/possible fatal coma Performed By: #### L501.9100 #### [facility] [address] [facility] [place], [address] SALICYLATE Collected: 07/18/2018 Status: F Source: [place] 12:05 AM [facility] REPOSITORY Order Comment: Order Date: 07/18/18 TYPE CODE TESTS RESULT OUT OF REFERENCE UNITS RANGE LAB L501.8300 2.8-20.0 mg/dL Low SALICYLATE < 1.7 Performed By: #### L501.8300, L501.8400 #### [facility] [address] [facility] [place], [place], [address] ACETAMINOPHEN (TYLENOL) Collected: 07/18/2018 Status: F Source: [place] [facility] 12:05 AM [facility] [facility] Order Comment: Order Date: 07/18/18 TYPE CODE TESTS RESULT OUT OF REFERENCE UNITS RANGE LAB L501.8400 10.0-30.0 ug/mL ACETAMINOPHEN Low < 10.0 Performed By: #### L501.8300, L501.8400 #### [facility] [address] [place], [address] BEDSIDE GLUCOSE Collected: 07/15/2018 Status: F Source: [facility] 4:43 PM [facility] REPOSITORY TYPE CODE TESTS RESULT OUT OF RANGE REFERENCE UNITS LAB L501.080 70-110 mg/dL Normal BEDSIDE GLU 106 Result Comment: MANAGEMENT OF PATIENT CARE PER NURSING PROTOCOL Performed By: #### L501.080 #### [facility] Point of Care [address] [facility]. [place], [place] [address] DISCHARGE SUMMARY Observed: 07/15/2018 Status: F Source: [facility] 3:08 PM [facility] REPOSITORY [facility] Medical Records Department [address] [place] [address] Discharge Summary 07/15/18 1309 MR#: [id number] Acct: [id number] Name: SIMI NIELSEN Rep #: [id number] : 1970 48 From: Adalgisa Alicea MD PCP: Paty Catalan DO Status: ADM IN Location: [place] [address] Discharge Date and Diagnosis - Problem List Patient Problems: Active and Suspected Problems (Last Reviewed 07/10/18 @ 06:23 by Quinten Trejo MD) Catatonia schizophrenia (Acute) Hyperammonemia (Acute) Date of Admission: 07/10/18 Date of Discharge: 07/15/18 - Primary Discharge Diagnosis Active and Suspected Problems (Last Reviewed 07/10/18 @ 06:23 by Quinten Trejo MD) Catatonia schizophrenia (Acute) Hyperammonemia (Acute) Altered mental status - Secondary Discharge Diagnosis Chronic Problems (Last Reviewed 07/10/18 @ 06:23 by Quinten Trejo MD) Bipolar disorder (Chronic) BALDEMAR (obstructive sleep apnea) (Chronic) CHF (congestive heart failure) (Chronic) HTN (hypertension) (Chronic) DVT (deep venous thrombosis) (Chronic) Hospital Course and Treatment Imaging Results: Clinical Impression(s) from Imaging Studies Brain CT 07/09/18 21:42 IMPRESSION: Normal unenhanced CT scan of the brain. Electronically Signed: Anna Hughes MD at 22:43 EST Tel , Service support , Chest X-Ray 07/09/18 21:50 IMPRESSION: Normal x-ray examination of the chest. Electronically Signed: Anna Hughes MD at 22:36 EST Tel , Service support , Consultations 07/10/18 11:01 Consult: Mental Health/Crisis Routine Reason for consult?: catatonia, behavioral issues history schizophrenia/bipolar Date Notified:: 07/10/18 Time notified:: 11:05 Operations: None Procedures: None Summary of Care Provided: 48-year-old female with past medical history of schizoaffective disorder, hypertension, type II DM, chronic CHF, history of DVT/PE who was admitted with progressive lethargy. Patient has been managed as an acute catatonic schizophrenia. Patient was kept off her home zyprexa with improvement in her mentation. She was resumed on 5mg of zyprexa when patient was more awake. She was also found to have hyperammonemia, of unclear etiology which resolved later. She was continued on her Eliquis for her history of DVT. She was found by PT/OT to be very weak and a 2 person assist and was skilled for discharge to a SNF for subacute rehab. Patient Problems: Active and Suspected Problems (Last Reviewed 07/10/18 @ 06:23 by Quinten Trejo MD) Catatonia schizophrenia (Acute) Hyperammonemia (Acute) Subjective: Patient was seen and examined. Complains of slight dizziness which she says is improving. Denied any fever or chills or headache or palpitation. Orthostatic vitals have been negative. Patient has been encouraged to keep hydrating herself. Objective: Physical Exam General: Alert, Oriented x3, Cooperative, No apparent distress, Well developed HEENT: Atraumatic, PERRLA, EOMI, Normocephalic Oral: Moist Mucosa Neck: Supple, No Nuchal Rigidity, Trachea Midline, Thyroid Normal Size and Texture Lungs: Clear to auscultation, Normal air movement, No rhonchi, No wheeze, No rales Cardiovascular: Regular rate, Regular Rhythm, Normal S1, Normal S2, No murmurs, No Ectopic Activity, PMI Normal, No rub noted, No Gallop Abdomen: Bowel Sounds Present, Soft, Non Tender, Non-Distended, Obese, No hernias noted Extremities: No clubbing, No cyanosis, No edema, Capillary Refill Less than 3 Seconds Skin: No rashes, No breakdown Musculoskeletal: No Tenderness to Palpation of Joints or Extremities Neurological: Cranial nerves II-XII grossly intact, weakness in lower extremities. Sensory exam intact to light touch and pain, Coordination normal Psych/Mental Status: Flat affect Alert and oriented to time, place, person, - Physical Exam Vital Signs Temp Pulse Resp BP Pulse Ox 98.1 F 68 18 112/70 94 07/15/18 09:09 07/15/18 09:09 07/15/18 09:09 07/15/18 09:09 07/15/18 09:09 Oxygen Delivery Method Room Air Weight: 106 kg Body Mass Index (BMI) 40.1 Finger Stick Blood Glucose 92 Intake and Output for Last 24 Hours Intake Total 1735 / 1735 1947 200 / 200 Balance 1735 / 1735 1947 / 1947 200 / 200 Laboratory Tests Past 24 Hrs WBC 8.3 RBC 4.25 Hgb 13.0 Hct 39.7 MCV 93.4 MCH 30.6 MCHC 32.7 RDW 12.1 RDW Differential 40.8 Plt Count 192 POC Glucose POC Glucose 142 H 97 106 POC Glucose 141 H Discharge Diet: Low fat/ Low Cholesterol, 2000 mg Sodium Diet Discharge Activity: Return to Normal Activity Home Medications: Medications to take at Discharge Carvedilol [Coreg (Beta Gabriela)] 3.125 mg PO BID 10/29/14 Lisinopril [Zestril] 2.5 mg PO DAILY 08/25/15 Furosemide 40 mg PO DAILY 03/09/17 Bupropion HCl [Wellbutrin Xl] 150 mg PO BID 06/26/18 Sertraline HCl [Zoloft] 200 mg PO DAILY 06/26/18 Metformin HCl ER 500 mg PO DAILY 07/09/18 Apixaban [Eliquis] 5 mg PO BID tablet 07/15/18 Apixaban [Eliquis] 10 mg PO BID #10 tablet 07/15/18 Ensure Enlive 120 ml PO 4X/DAY liquid 07/15/18 Olanzapine [Zyprexa] 5 mg PO DAILY #30 tablet 07/15/18 Following Prescrptions Were Given to Patient: Olanzapine [Zyprexa] 5 mg PO DAILY #30 tablet Primary Care Physician: Paty Catalan DO [Primary Care Provider] - Please follow up with your Primary Care Physician in: within 2 weeks of discharge When: Psychiatrist within 2 weeks of hospital stay for chronic med management Disposition: [facility] facility Minutes spent on discharge:: 40 Patient Condition:: Stable Medical Necessity - Tobacco Use Smoking Status: Former smoker Tobacco Use: Non-smoker Meaningful Use Info Meaningful Use Diagnoses (Choose all that apply): None applicable Code Visit Inpatient E AND M: 01516 Disch Hosp 07/15/18 1508 <Electronically signed by Adalgisa Alicea MD> Date Adalgisa Alicea MD Cosigner Signature (if applicable): Date CC: Adalgisa Alicea MD; Paty Catalan DO Signed TRANSFER TO EXTENDED Observed: 07/15/2018 Status: F Source: [facility] 1:09 PM [facility] RE[facility]ITORY [facility] Medical Records Department [address] [place] [address] Transfer to Extended Care MR#: [id number] Acct: [id number] Name: SIMI NIELSEN Rep #: [id number] : 1970 48 From: Adalgisa Alicea MD PCP: Paty Catalan DO Status: ADM IN SIMI NIELSEN (Patient) (Health Ins. Claim No.) (Day of Discharge to Facility) Certification of patient admission REQUIRED AT TIME OF ADMISSION. I CERTIFY THAT POST-HOSPITAL ECF SERVICES ARE REQUIRED TO BE GIVEN ON AN IN-PATIENT BASIS BECAUSE OF THE ABOVE NAMED PATIENT'S NEED FOR LONG TERM CARE ON A CONTINUING BASIS FOR THE CONDITION(S) FOR WHICH HE/SHE WAS RECEIVING IN-PATIENT HOSPITAL SERVICES PRIOR TO HIS/HER TRANSFER TO THE ECF. 07/15/18 1309 <Electronically signed by Adalgisa Alicea MD> Date Adalgisa Alicea MD - Diet 07/12/18 11:55 Diet: Regular Diet Food consistency:: Mechanical Soft/Ground Liquid Consistency:: Regular/Thin Dietary Modifications:: Mechanical Soft Diet Is pt able to select menu?: No - Routine Orders/Code Status Routine Lab Work: CBC - within 3 days, BMP - within 3 days Code Status: Full Code - Therapies Weight Bearing: Weight bearing as tolerated Extremity Affected:: Bilateral Lower Physical Therapy: Eval and Treat Occupational Therapy: Eval and Treat Speech Therapy: Eval and Treat - Allergies/Procedures Done in Hospital Allergies/Adverse Reactions: Allergies No Known Allergies Allergy (Verified 07/09/18 21:24) Procedures: None - Type of Care/Length of Stay Estimated LOS: Convalescent Care Less Than 30 days Type of Care Needed: Skilled Rehab Potential: Good Prognosis: Good - Additional Orders/Day of Discharge Day of Discharge: 07/15/18 - Dietary and Speech Recommendations Dietitian Recommendations/Changes: Rec continue ONS medpass - will offer 4 oz ensure enlive at meals for increased nutrition if consumed. - Follow Up Care Please follow up with your Primary Care Physician in: within 2 weeks of discharge When: Psychiatrist within 2 weeks of hospital stay for chronic med management 07/15/18 130 <Electronically signed by Adalgisa Alicea MD> Date Adalgisa Alicea MD CC: Paty Alayna DO Signed BEDSIDE GLUCOSE Collected: 07/15/2018 Status: F Source: [facility] 11:06 AM [facility] REPOS[facility]ORY TYPE CODE TESTS RESULT OUT OF REFERENCE UNITS RANGE LAB L501.080 70-110 mg/dL High BEDSIDE GLU 142 Result Comment: MANAGEMENT OF PATIENT CARE PER NURSING PROTOCOL Performed By: #### L501.080 #### [facility] Point of Care [address] [place] [address] BEDSIDE GLUCOSE Collected: 07/15/2018 Status: F Source: [place] 6:54 AM [facility] REPOSITORY TYPE CODE TESTS RESULT OUT OF RANGE REFERENCE UNITS LAB L501.080 70-110 mg/dL Normal BEDSIDE GLU 97 Result Comment: MANAGEMENT OF PATIENT CARE PER NURSING PROTOCOL Performed By: #### L501.080 #### [facility] Point of Care [address] [place] [address] BASIC METABOLIC Collected: 07/15/2018 Status: F Source: [facility] PROFILE (BMP) 5:38 AM [facility] REPOSITORY TYPE CODE TESTS RESULT OUT OF RANGE REFERENCE UNITS LAB L501.0100 74-106 mg/dL High GLU 107 Result Comment: Fasting Glucose result from 100 to 125 mg/dL suggests IMPAIRED HOMEOSTASIS per A.D.A. criteria. Please note revised GLUCOSE reference range effective 2017. LAB L501.1000 7-18 mg/dL High BUN 24 LAB L501.1100 0.55-1.02 mg/dL Normal CREAT,SERUM 1.00 Result Comment: The validity of the calculated GFR AND GFRAA in patients over 70 years has not been determined. Clinical correlation is essential. LAB L501.1110 >60 mL/min Normal EST GFR 62 Result Comment: Non- GFR Calc LAB L501.1115 >60 mL/min Normal EST GFR - AA 75 Result Comment: GFR Calc LAB L501.1255 ml/min Normal Estimated CRCL 58.12 LAB L501.1300 10-20 RATIO High BUN/CRE 24.0 LAB L501.2200 8.5-10 mg/dL Normal .1 CA 8.7 LAB L501.5300 136-14 mmol/L Normal 5 NA 143 LAB L501.5600 3.5-5. mmol/L Normal 1 K 3.8 LAB L501.5900 98-107 mmol/L High CL 108 LAB L501.6100 21.0-3 mmol/L Normal 2.0 CO2 27.0 LAB L501.6200 5-15 Normal GAP 8 Performed By: #### L500.2500 #### [facility] [address] [place], [address] CBC W/DIFF, AUTOMATED Collected: 07/15/2018 Status: F Source: [facility] 5:38 AM [facility] REPOSITORY TYPE CODE TESTS RESULT OUT OF RANGE REFERENCE UNITS LAB L100.1000 4.4-11.0 K/mm3 Normal WBC 8.3 LAB L100.1200 4.2-5.4 M/mm3 Normal RBC 4.25 LAB L100.1300 12.0-15.0 g/dl Normal HGB 13.0 LAB L100.1400 37-47 % Normal HCT 39.7 LAB L100.1500 81-99 fL Normal MCV 93.4 LAB L100.1600 27.0-32.0 pg Normal MCH 30.6 LAB L100.1700 32-36 g/gl Normal MCHC 32.7 LAB L100.1810 11.6-14.6 % Normal RDW CV 12.1 LAB L100.1820 35.1-43.9 fl Normal RDW SD 40.8 LAB L100.1900 150-450 K/mm3 Normal PLT 192 LAB L100.2000 6.2-12.0 fl Normal MPV 10.2 LAB L100.2100 47-70 % Normal NEUT% 63.2 LAB L100.2200 19-41 % Normal LY% 23.8 LAB L100.2300 0-10 % Normal MONO% 8.8 LAB L100.2400 0-5 % Normal EO% 4.0 LAB L100.2500 0-1 % Normal BASO% 0.1 LAB L100.2550 0.0-0.9 % Normal IM GRAN % 0.100 Result Comment: IG% - Immature Granulocytes (promyelocytes, myelocytes and metamyelocytes) > 1% indicates that a LEFT SHIFT is Present. LAB L100.2620 2.0-7.7 X10 3/uL Normal Absolute Neut 5.2 LAB L100.2720 0.83-4.51 X10 3/ul Normal Absolute Lymph 1.97 Performed By: #### L100.0100 #### [facility] [address] [place], [address] HEMOGLOBIN A1C Collected: 07/15/2018 Status: F Source: [facility] 5:38 AM [facility] REPOSITORY TYPE CODE TESTS RESULT OUT OF RANGE REFERENCE UNITS LAB L501.9985 4.2-6.3 % Normal HGB A1C 5.3 Performed By: #### L501.9985 #### [facility] [address] [place], [address] BEDSIDE GLUCOSE Collected: 07/14/2018 Status: F Source: [facility] 9:39 PM [facility] REPOSITORY TYPE CODE TESTS RESULT OUT OF RANGE REFERENCE UNITS LAB L501.080 70-110 mg/dL Normal BEDSIDE GLU 106 Result Comment: MANAGEMENT OF PATIENT CARE PER NURSING PROTOCOL Performed By: #### L501.080 #### [facility] Point of Care [address] [place] [address] BEDSIDE GLUCOSE Collected: 07/14/2018 Status: F Source: [facility] 4:40 PM [facility]POS[facility]ORY TYPE CODE TESTS RESULT OUT OF REFERENCE UNITS RANGE LAB L501.080 70-110 mg/dL High BEDSIDE GLU 141 Result Comment: MANAGEMENT OF PATIENT CARE PER NURSING PROTOCOL Performed By: #### L501.080 #### [facility] Point of Care [address] [place] [address] BEDSIDE GLUCOSE Collected: 07/14/2018 Status: F Source: [facility] 11:21 AM [facility]POS[facility]ORY TYPE CODE TESTS RESULT OUT OF REFERENCE UNITS RANGE LAB L501.080 70-110 mg/dL High BEDSIDE GLU 154 Result Comment: MANAGEMENT OF PATIENT CARE PER NURSING PROTOCOL Performed By: #### L501.080 #### [facility] Point of Care [address] [place] [address] BEDSIDE GLUCOSE Collected: 07/14/2018 Status: F Source: [facility] 6:10 AM [facility] REPOSITORY TYPE CODE TESTS RESULT OUT OF RANGE REFERENCE UNITS LAB L501.080 70-110 mg/dL Normal BEDSIDE GLU 95 Result Comment: MANAGEMENT OF PATIENT CARE PER NURSING PROTOCOL Performed By: #### L501.080 #### [facility] Point of Care [address] [place] [address] BEDSIDE GLUCOSE Collected: 07/14/2018 Status: F Source: [facility] 12:24 AM [facility] REPOSITORY TYPE CODE TESTS RESULT OUT OF REFERENCE UNITS RANGE LAB L501.080 70-110 mg/dL High BEDSIDE GLU 132 Result Comment: MANAGEMENT OF PATIENT CARE PER NURSING PROTOCOL Performed By: #### L501.080 #### [facility] Point of Care [address] [place] [address] BEDSIDE GLUCOSE Collected: 07/13/2018 Status: F Source: [facility] 4:50 PM [facility] REPOSITORY TYPE CODE TESTS RESULT OUT OF RANGE REFERENCE UNITS LAB L501.080 70-110 mg/dL Normal BEDSIDE GLU 110 Result Comment: MANAGEMENT OF PATIENT CARE PER NURSING PROTOCOL Performed By: #### L501.080 #### [facility] Point of Care [address] [place] [address] BEDSIDE GLUCOSE Collected: 07/13/2018 Status: F Source: [facility] 11:03 AM [facility] REPOSITORY TYPE CODE TESTS RESULT OUT OF REFERENCE UNITS RANGE LAB L501.080 70-110 mg/dL High BEDSIDE GLU 140 Result Comment: MANAGEMENT OF PATIENT CARE PER NURSING PROTOCOL Performed By: #### L501.080 #### [facility] Point of Care [address] [place] [address] BEDSIDE GLUCOSE Collected: 07/13/2018 Status: F Source: [facility] 5:16 AM [facility] REPOSITORY TYPE CODE TESTS RESULT OUT OF RANGE REFERENCE UNITS LAB L501.080 70-110 mg/dL Normal BEDSIDE GLU 96 Result Comment: MANAGEMENT OF PATIENT CARE PER NURSING PROTOCOL Performed By: #### L501.080 #### [facility] Point of Care [address] [place] [address] BEDSIDE GLUCOSE Collected: 07/12/2018 Status: F Source: [facility] 10:28 PM [facility] REPOSITORY TYPE CODE TESTS RESULT OUT OF RANGE REFERENCE UNITS LAB L501.080 70-110 mg/dL Normal BEDSIDE GLU 102 Result Comment: MANAGEMENT OF PATIENT CARE PER NURSING PROTOCOL Performed By: #### L501.080 #### [facility] Point of Care [address] [place], [place] [address] BEDSIDE GLUCOSE Collected: 07/12/2018 Status: F Source: [place] 5:32 PM [facility] REPOSITORY TYPE CODE TESTS RESULT OUT OF RANGE REFERENCE UNITS LAB L501.080 70-110 mg/dL Normal BEDSIDE GLU 86 Result Comment: MANAGEMENT OF PATIENT CARE PER NURSING PROTOCOL Performed By: #### L501.080 #### [facility] Point of Care [address] [place], [place] [address] 12 LEAD ELECTROCARDIOGRAM Observed: 07/12/2018 Status: F Source: [place] 4:46 PM [facility] REPOSITORY [facility] Cardiovascular Services [address] [place] [address] 12 Lead EKG 07/09/18 2200 MR#: [id number] Acct: [id number] Name: SIMI NIELSEN Rep #: [id number] : 1970 48 From: Mark Underwood MD Attending Dr: Vincent Reddy DO Status: ADM IN Ordering Dr: Vianney Cuenca MD Date: 07/09/18 Location: [facility] Sex: F C Admitted: 07/10/18 Test Reason : ALT LOC Blood Pressure : / mmHG Vent. Rate : 069 BPM Atrial Rate : 069 BPM P-R Int : 164 ms QRS Dur : 092 ms QT Int : 424 ms P-R-T Axes : 043 -11 025 degrees QTc Int : 454 ms Normal sinus rhythm Normal ECG Confirmed by MARK UNDERWOOD MD ([id number]), publication editor NAYANA SAWANT ([id number]) on 07/12/2018 4:46:01 PM Referred By: Confirmed By:MARK UNDERWOOD MD 07/12/18 1646 Date Mark Underwood MD CC: Vianney Cuenca MD; Paty Catalan DO; Vincent Reddy DO Signed BEDSIDE GLUCOSE Collected: 07/12/2018 Status: F Source: [facility] 12:09 PM [facility] REPOSITORY TYPE CODE TESTS RESULT OUT OF RANGE REFERENCE UNITS LAB L501.080 70-110 mg/dL Normal BEDSIDE GLU 99 Result Comment: MANAGEMENT OF PATIENT CARE PER NURSING PROTOCOL Performed By: #### L501.080 #### [facility] Point of Care [address] [place] [address] LIPID PROFILE Collected: 07/12/2018 Status: F Source: [facility] 8:24 AM [facility] REPOSITORY TYPE CODE TESTS RESULT OUT OF RANGE REFERENCE UNITS LAB L501.4900 200 mg/dL Normal CHOL 144 Result Comment: <200 mg/dL Desirable 200-240 mg/dL Borderline >240 mg/dL High Risk LAB L501.5000 mg/dL Normal TRIG 84 Result Comment: The drugs N-Acetylcysteine and Metamizole may falsely depress this assay. Serum Triglycerides Reference Interval Normal <150 mg/dL Borderline high 150 - 199 mg/dL High 200 - 499 mg/dL Very High > or = 500 mg/dL LAB L501.6400 mg/dL Low HDL 35 Result Comment: The drugs N-Acetylcysteine and Metamizole may falsely depress this assay. Reference Range HDL <40 mg/dL Low HDL Cholesterol HDL >or= 60 mg/dL High HDL Cholesterol LAB L501.6500 0-130 mg/dL Normal LDL 92 LAB L501.6600 5-40 mg/dL Normal VLDL 17 Performed By: #### L500.4100 #### [facility] [address] [place], [address] BEDSIDE GLUCOSE Collected: 07/12/2018 Status: F Source: [place] 5:51 AM [facility] REPOSITORY TYPE CODE TESTS RESULT OUT OF RANGE REFERENCE UNITS LAB L501.080 70-110 mg/dL Normal BEDSIDE GLU 82 Result Comment: MANAGEMENT OF PATIENT CARE PER NURSING PROTOCOL Performed By: #### L501.080 #### [facility] Point of Care [address] [place] [address] BEDSIDE GLUCOSE Collected: 07/11/2018 Status: F Source: [place] 11:47 PM [facility] REPOSITORY TYPE CODE TESTS RESULT OUT OF RANGE REFERENCE UNITS LAB L501.080 70-110 mg/dL Normal BEDSIDE GLU 79 Result Comment: MANAGEMENT OF PATIENT CARE PER NURSING PROTOCOL Performed By: #### L501.080 #### [facility] Point of Care [address] [place] [address] BEDSIDE GLUCOSE Collected: 07/11/2018 Status: F Source: [place] 6:45 PM [facility] REPOSITORY TYPE CODE TESTS RESULT OUT OF RANGE REFERENCE UNITS LAB L501.080 70-110 mg/dL Normal BEDSIDE GLU 80 Result Comment: MANAGEMENT OF PATIENT CARE PER NURSING PROTOCOL Performed By: #### L501.080 #### [facility] Point of Care [address] [place] [address] BEDSIDE GLUCOSE Collected: 07/11/2018 Status: F Source: [place] 6:28 AM [facility] REPOSITORY TYPE CODE TESTS RESULT OUT OF RANGE REFERENCE UNITS LAB L501.080 70-110 mg/dL Normal BEDSIDE GLU 85 Result Comment: MANAGEMENT OF PATIENT CARE PER NURSING PROTOCOL Performed By: #### L501.080 #### [facility] Point of Care [address] [place] [address] AMMONIA Collected: 07/11/2018 Status: F Source: [place] 5:38 AM [facility] REPOSITORY TYPE CODE TESTS RESULT OUT OF RANGE REFERENCE UNITS LAB L503.5510 11-32 umol/L Normal AMMONIA 23.0 Performed By: #### L503.5510 #### [facility] [address] [place], [address] BASIC METABOLIC Collected: 07/11/2018 Status: F Source: [place] PROFILE (BMP) 5:38 AM [facility] REPOSITORY TYPE CODE TESTS RESULT OUT OF RANGE REFERENCE UNITS LAB L501.0100 74-106 mg/dL Normal GLU 91 Result Comment: Please note revised GLUCOSE reference range effective 2017. LAB L501.1000 7-18 mg/dL High BUN 24 LAB L501.1100 0.55-1.02 mg/dL Normal CREAT,SERUM 0.96 Result Comment: The validity of the calculated GFR AND GFRAA in patients over 70 years has not been determined. Clinical correlation is essential. LAB L501.1110 >60 mL/min Normal EST GFR 65 Result Comment: Non- GFR Calc LAB L501.1115 >60 mL/min Normal EST GFR - AA 79 Result Comment: GFR Calc LAB L501.1255 ml/min Normal Estimated CRCL 60.54 LAB L501.1300 10-20 RATIO High BUN/CRE 24.9 LAB L501.2200 8.5-10 mg/dL Normal .1 CA 8.6 LAB L501.5300 136-14 mmol/L Normal 5 NA 144 LAB L501.5600 3.5-5. mmol/L Normal 1 K 3.7 LAB L501.5900 98-107 mmol/L High CL 110 LAB L501.6100 21.0-3 mmol/L Normal 2.0 CO2 24.0 LAB L501.6200 5-15 Normal GAP 10 Performed By: #### L500.2500 #### [facility] [address] [facility] [place], [address] BEDSIDE GLUCOSE Collected: 07/10/2018 Status: F Source: [place] 11:57 PM [facility] REPOSITORY TYPE CODE TESTS RESULT OUT OF RANGE REFERENCE UNITS LAB L501.080 70-110 mg/dL Normal BEDSIDE GLU 84 Result Comment: MANAGEMENT OF PATIENT CARE PER NURSING PROTOCOL Performed By: #### L501.080 #### [facility] Point of Care [address] [facility] [place] [address] BEDSIDE GLUCOSE Collected: 07/10/2018 Status: F Source: [place] 9:07 PM [facility] REPOSITORY TYPE CODE TESTS RESULT OUT OF RANGE REFERENCE UNITS LAB L501.080 70-110 mg/dL Normal BEDSIDE GLU 80 Result Comment: MANAGEMENT OF PATIENT CARE PER NURSING PROTOCOL Performed By: #### L501.080 #### [facility] Point of Care [address] [facility] [place] [address] BEDSIDE GLUCOSE Collected: 07/10/2018 Status: F Source: [place] 6:47 PM [facility] REPOSITORY TYPE CODE TESTS RESULT OUT OF RANGE REFERENCE UNITS LAB L501.080 70-110 mg/dL Normal BEDSIDE GLU 88 Result Comment: MANAGEMENT OF PATIENT CARE PER NURSING PROTOCOL Performed By: #### L501.080 #### [facility] Point of Care [address] [place] [address] BEDSIDE GLUCOSE Collected: 07/10/2018 Status: F Source: [place] 1:12 PM [facility] REPOSITORY TYPE CODE TESTS RESULT OUT OF RANGE REFERENCE UNITS LAB L501.080 70-110 mg/dL Normal BEDSIDE GLU 88 Result Comment: MANAGEMENT OF PATIENT CARE PER NURSING PROTOCOL Performed By: #### L501.080 #### [facility] Point of Care [address] [place] [address] CPK TOTAL, CREATINE Collected: 07/10/2018 Status: F Source: [place] 6:34 AM [facility] REPOSITORY TYPE CODE TESTS RESULT OUT OF RANGE REFERENCE UNITS LAB L501.3620 26-192 U/L Normal CPK TOTAL 47 Performed By: #### L501.3620 #### [facility] [address] [facility] [place], [address] HISTORY AND PHYSICAL Observed: 07/10/2018 Status: F Source: [facility] 6:32 AM [facility] REPOSITORY [facility] Medical Records Department [address] [place] [address] History and Physical 07/09/18 2254 MR#: [id number] Acct: [id number] Name: SIMI NIELSEN Rep #: [id number] : 1970 48 From: Quinten Trejo MD PCP: Paty Catalan DO Status: ADM [place]PH[place]SE Y Location: [place] [id number] Problem List (1) Catatonia schizophrenia Status: Acute (2) Lactic acid acidosis Status: Acute (3) STEPHANIE (acute kidney injury) Status: Acute (4) Hyperammonemia Status: Acute History of Present Illness Date of Admission: 07/10/18 Chief Complaint: LETHARGY The patient is a 48 year old F with a significant history of hypertension; diabetes mellitus; CHF; schizophrenia; bipolar 1 disorder; DVT and PE who presented with 1 week history of progressively worsening lethargy. History was taken from patient since patient was not talking. reported that patient has had only minimal conversation. Patient reported to her that she had not eaten all day. And although her made food for patient she still would not eat. Her reported that a bottle of sleeping pill the patient uses his missing. In February 2018 patient presented to the same symptoms and her psych medications where adjusted. She was eventually discharged to psychiatric unit at that time. FARHAD 10 was positive for methamphetamine. Past Medical History Past Medical History (Chronic Problems): Chronic Problems (Last Reviewed 07/10/18 @ 00:15 by Quinten Trejo MD) BALDEMAR (obstructive sleep apnea) (Chronic) CHF (congestive heart failure) (Chronic) HTN (hypertension) (Chronic) DVT (deep venous thrombosis) (Chronic) Medical History: Medical History (Last Reviewed 07/10/18 @ 06:23 by Quinten Trejo MD) BALDEMAR (obstructive sleep apnea) (Chronic) G47.33 CHF (congestive heart failure) (Chronic) I50.9 HTN (hypertension) (Chronic) I10 Nausea AND vomiting (Resolved) R11.2 DVT (deep venous thrombosis) (Chronic) I82.409 Palpitation (Inactive) R00.2 Dizzy (Inactive) R42 Bipolar 1 disorder F31.9 Cardiomyopathy I42.9 Eczema L30.9 IBS (irritable bowel syndrome) K58.9 PUD (peptic ulcer disease) K27.9 Pulmonary embolism I26.99 Schizophrenia F20.9 Allergies No Known Allergies Allergy (Verified 07/09/18 21:24) Home Medications: Ambulatory Orders Medication Instructions Recorded Surgical History: Surgical History (Last Reviewed 07/10/18 @ 06:23 by Quniten Trejo MD) History of esophagogastroduodenoscopy (EGD) Z98.890 S/P cholecystectomy Z90.49 S/P dilation and curettage Z98.890 S/P hysterectomy Z90.710 S/P nasal septoplasty Z98.890 Surgical History: cholecystectomy, hysterectomy, - - nasa surgery Smoking Status: Former smoker Alcohol: None - *Family History Maternal Family History: Family History (Last Reviewed 07/10/18 @ 06:23 by Quinten Trejo MD) Mother Breast cancer History Items: Heart Disease Paternal Family History: Family History (Last Reviewed 07/10/18 @ 06:23 by Quinten Trejo MD) Mother Breast cancer History Items: - - colon cancer Review of Systems Unable to obtain accurate/complete ROS d/t: Not talking. ROS obtained from is otherwise neg except in hpi. VTE Information - Inpt Only VTE Present on Admission: No - History of DVT/PE VTE Mechan Device Prophylaxis: None VTE Pharm Prophylaxis ordered?: No Reason prophylaxis not ordered:: Treatment Not Indicated - On Eliquis for history of DVT/PE; Continued Patient Problems: Active and Suspected Problems (Last Reviewed 07/10/18 @ 00:15 by Quinten Trejo MD) Catatonia schizophrenia (Acute) Lactic acid acidosis (Acute) STEPHANIE (acute kidney injury) (Acute) Hyperammonemia (Acute) - Physical Exam General: Alert, - - No talkative HEENT: Atraumatic, Normocephalic Neck: Supple, No JVD, Negative Carotid Bruits Lungs: Clear to auscultation, Normal air movement Cardiovascular: Regular rate, No murmurs Abdomen: Bowel Sounds Present, Soft, Non Tender Extremities: No edema, Capillary Refill Less than 3 Seconds Skin: No rashes, No breakdown Musculoskeletal: No Muscle Wasting Neurological: - - Patient is non talkative and is not performing commands Psych/Mental Status: Normal Affect, Flat Affect Vital Signs Temp Pulse Resp BP Pulse Ox 97.6 F L 74 16 99/74 96 07/09/18 21:21 07/09/18 21:21 07/09/18 21:21 07/09/18 21:21 07/09/18 21:21 Oxygen Delivery Method Room Air Weight: 106 kg Body Mass Index (BMI) 40.1 Finger Stick Blood Glucose 92 Microbiology Past 72 Hours 07/09/18 21:58 Influenza Types A,B Direct FA (BEKA) - Final Mucosa - Nose Laboratory Tests Past 24 Hrs WBC RBC Hgb Hct MCV MCH MCHC RDW RDW Differential Plt Count MPV WBC RBC Hgb Hct MCV MCH MCHC RDW RDW Differential Plt Count MPV Immature Gran % (Auto) POC Glucose POC Glucose 92 Assessment/Plan All Active Problems (Last Reviewed 07/10/18 @ 00:15 by Quinten Trejo MD) Diarrhea (Resolved) Acute encephalopathy (Acute) Catatonia schizophrenia (Acute) Lactic acid acidosis (Acute) STEPHANIE (acute kidney injury) (Acute) Hyperammonemia (Acute) Nausea AND vomiting (Resolved) The patient is a 48 year old F with a significant history of hypertension; diabetes mellitus; CHF; schizophrenia; bipolar 1 disorder; DVT and PE who presented with 1 week history of progressively worsening lethargy and refusing to talk; and with slight elevation in ammonia level; and lactic acidosis consistent with likely schizophrenia with catatonia.. Schizophrenia with catatonia. So far there are no medical causes to explain his symptoms. Brain CT, chest x-ray and urinalysis were unremarkable. Will get a TSH and CPK. Unlikely that mild hyperammonemia can throw her into extreme state of non communicativeness Patient does not appear lethargic. It appears like she does not want to interact with her surroundings. We will continue Zoloft and Wellbutrin. Hold Olanzapine Methamphetamine was positive. Likely a false positive from Wellbutrin. Patient follows up with counseling center. Consider discussing with counseling center. Hyperammonemia There is only likely slight elevation in her ammonia level. May be a normal variant. Other liver enzymes are unremarkable. Consider ultrasound of the liver if high ammonia level remain elevated. Repeat ammonia level. Initially p.o. lactulose was ordered but patient refused to take anything p.o; and does not look like she will hold onto rectal lactulose. Moreover her ammonia level is only mildly elevated and most likely is not causing her symptoms. Do not think inserting an NG and putting lactulose in will be worth it. We will hold off lactulose at this time. . Lactic acidosis Likely due to dehydration from her not eating and from metformin use. Gentle IV hydration. Hold Lasix. Trend lactic acid Hypertension On admission blood pressure was within goal. We will hold Lasix and lisinopril. Because of STEPHANIE Trend blood pressures. STEPHANIE On admission her creatinine was 1.17. Her BUN was 20 Review of old records shows baseline creatinine of around 0.8. Gentle IV hydration Lisinopril and Lasix held. Avoid other nephrotoxic's. Diabetes Mellitus On presentation patient blood glucose was within goal. Regular diet Fingerstick blood sugar with correction scale as we hold her metformin. History of CHF Unknown whether heart failure with preserved ejection fraction; or heart failure with reduced ejection fraction. Patient is not edematous. No crackles. Patient is stable. Lasix held secondary to dehydration and AK I. History of DVT/PE Eliquis continued DVT prophylaxis Patient on Eliquis for DVT/PE Eliquis continued Code Visit OBSV E AND M: [id number] Initial observation care L3 07/10/18 0632 <Electronically signed by Quinten Trejo MD> Date Quinten Trejo MD Cosigner Signature: Date (if applicable) CC: Quinten Trejo MD; Paty Catalan DO Signed BEDSIDE GLUCOSE Collected: 07/10/2018 Status: F Source: [place] 6:12 AM [facility] REPOSITORY TYPE CODE TESTS RESULT OUT OF RANGE REFERENCE UNITS LAB L501.080 70-110 mg/dL Normal BEDSIDE GLU 108 Result Comment: MANAGEMENT OF PATIENT CARE PER NURSING PROTOCOL Performed By: #### L501.080 #### [facility] Point of Care [facility] [place] [address] CBC W/DIFF, AUTOMATED Collected: 07/10/2018 Status: F Source: [place] 6:09 AM [facility] REPOSITORY TYPE CODE TESTS RESULT OUT OF RANGE REFERENCE UNITS LAB L100.1000 4.4-11.0 K/mm3 Normal WBC 7.4 LAB L100.1200 4.2-5.4 M/mm3 Normal RBC 4.50 LAB L100.1300 12.0-15.0 g/dl Normal HGB 14.2 LAB L100.1400 37-47 % Normal HCT 42.1 LAB L100.1500 81-99 fL Normal MCV 93.6 LAB L100.1600 27.0-32.0 pg Normal MCH 31.6 LAB L100.1700 32-36 g/gl Normal MCHC 33.7 LAB L100.1810 11.6-14.6 % Normal RDW CV 12.4 LAB L100.1820 35.1-43.9 fl Normal RDW SD 41.9 LAB L100.1900 150-450 K/mm3 Normal PLT 238 LAB L100.2000 6.2-12.0 fl Normal MPV 10.3 LAB L100.2100 47-70 % Normal NEUT% 53.3 LAB L100.2200 19-41 % Normal LY% 33.8 LAB L100.2300 0-10 % Normal MONO% 8.7 LAB L100.2400 0-5 % Normal EO% 3.8 LAB L100.2500 0-1 % Normal BASO% 0.3 LAB L100.2550 0.0-0.9 % Normal IM GRAN % 0.100 Result Comment: IG% - Immature Granulocytes (promyelocytes, myelocytes and metamyelocytes) > 1% indicates that a LEFT SHIFT is Present. LAB L100.2620 2.0-7.7 X10 3/uL Normal Absolute Neut 3.9 LAB L100.2720 0.83-4.51 X10 3/ul Normal Absolute Lymph 2.49 Performed By: #### L100.0100 #### [facility] [address] [place], [address] BASIC METABOLIC Collected: 07/10/2018 Status: F Source: [place] PROFILE (BMP) 6:09 AM [facility] REPOSITORY TYPE CODE TESTS RESULT OUT OF RANGE REFERENCE UNITS LAB L501.0100 74-106 mg/dL Normal GLU 92 Result Comment: Please note revised GLUCOSE reference range effective 2017. LAB L501.1000 7-18 mg/dL High BUN 22 LAB L501.1100 0.55-1.02 mg/dL High CREAT,SERUM 1.06 Result Comment: The validity of the calculated GFR AND GFRAA in patients over 70 years has not been determined. Clinical correlation is essential. LAB L501.1110 >60 mL/min Low EST GFR 58 Result Comment: Non- GFR Calc LAB L501.1115 >60 mL/min Normal EST GFR - AA 71 Result Comment: GFR Calc LAB L501.1255 ml/min Normal Estimated CRCL 54.83 LAB L501.1300 10-20 RATIO High BUN/CRE 20.8 LAB L501.2200 8.5-10 mg/dL Normal .1 CA 9.0 LAB L501.5300 136-14 mmol/L Normal 5 NA 141 LAB L501.5600 3.5-5. mmol/L Normal 1 K 3.7 LAB L501.5900 98-107 mmol/L Normal CL 104 LAB L501.6100 21.0-3 mmol/L Normal 2.0 CO2 28.0 LAB L501.6200 5-15 Normal GAP 9 Performed By: #### L500.2500 #### [facility] [address] [place], [address] LACTIC ACID Collected: 07/10/2018 Status: F Source: [place] 2:05 AM [facility] REPOSITORY TYPE CODE TESTS RESULT OUT OF RANGE REFERENCE UNITS LAB L503.6005 0.4-2.0 mmol/L Normal LACTIC ACID 1.0 Performed By: #### L503.6005 #### [facility] [address] [facility] [address], [address] BEDSIDE GLUCOSE Collected: 07/10/2018 Status: F Source: [place] 1:09 AM [facility] REPOSITORY TYPE CODE TESTS RESULT OUT OF RANGE REFERENCE UNITS LAB L501.080 70-110 mg/dL Normal BEDSIDE GLU 98 Result Comment: MANAGEMENT OF PATIENT CARE PER NURSING PROTOCOL Performed By: #### L501.080 #### [facility] Point of Care [address] [facility] [place] [address] EMERGENCY DEPARTMENT Observed: 07/09/2018 Status: F Source: [place] SUMMARY 11:24 PM [facility] REPOSITORY [facility] Medical Records Department [address] [place] [address] [place] [address] Emergency Department Summary 07/09/18 2218 MR#: [id number] Acct: [id number] Name: SIMI NIELSEN Rep #: [id number] : 1970 48 From: Vianney Cuenca MD PCP: Paty Catalan DO Status: REG ER - ER Visit Summary Date of Service: 07/09/18 Chief Complaint: Change in mental status History of Present Illness: The patient is a 48 F presenting with change in mental status. Patient's family state that she has been more sleepy than usual over the past couple of days. She has complained of not feeling well. Today this worsened. She has had decreased p.o. intake today. Her blood sugar on arrival was 92. Family also states that they are missing a bottle of sleeping pills. They are not sure what type what medication this was but she takes as needed for sleeping. History of diabetes, CHF, hypertension, schizophrenia, history of DVT. She had a similar presentation to this in February 2018. At that time her psychiatric medications were adjusted. Physical Examination: Vitals are stable. Patient is afebrile. Alert no acute distress. HEENT exam is unremarkable. Neck is supple. Lungs are clear and equal bilaterally. Heart is regular rate and rhythm. Abdomen is soft nontender nondistended. Extremities are unremarkable. Skin is warm and dry. No focal neurologic deficit. Opens eyes to voice, follows commands Remainder of exam is unremarkable. Emergency Department Course and Treatment: EKG is normal sinus rhythm rate of 69 with no acute ischemic changes. CBC, chemistries unremarkable other than BUN 20, creatinine 1.17. Troponin is negative. Lactic acid 2.6. Ammonia 41. Influenza negative. Chest x-ray shows no acute process. CT head shows no acute process. Alcohol is negative. Tox positive for methamphetamine. Throughout her stay she becomes more awake and alert. She is answering questions appropriately but continues to fall asleep during questioning. Discussed with the hospitalist for observation. Disposition: Observation Impression: Altered mental status This note was generated with [employer] dictation software. It may contain incorrect words, spelling, and punctuation that were not noted in review of the chart prior to signing ED Disposition - Plan for ED Patient: Chief Complaint: Alt LOC Referrals: Paty Catalan, DO [Primary Care Provider] - What to do if you have Problems For any increased pain, shortness of breath, bleeding, nausea or vomiting, chest pain, or any unexpected problems, contact your Primary Care Provider. Call [facility] ([phone]) or report to the closest Emergency Room. Call 911 if necessary. 07/09/18 6064 <Electronically signed by Vianney Cuenca MD> Date Vianney Cuenca MD Cosigner Signature (If Indicated): Date CC: Paty Catalan DO URINE DRUG SCREEN Collected: 07/09/2018 Status: F Source: [place] (VISTA) 10:10 PM [facility] REPOSITORY Order Comment: Order Date: 07/09/18 TYPE CODE TESTS RESULT OUT OF RANGE REFERENCE UNITS LAB L505.0075 TO BE Normal CONFIRMED Result Comment: CONFIRMATORY TESTING FOR ALL POSITIVE URINE DRUG SCREEN RESULTS WILL ONLY BE SENT OUT UPON PHYSICIAN ORDER. VISTA Urine Drug Screen methods provide only preliminary analytical test results. A more specific alternate chemical method must be used in order to obtain a confirmed analytical result. Gas chromatography/mass spectrometery (GC/MS) is the preferred confirmatory method. Clinical consideration and professional judgement should be applied to any drug of abuse test result, particularly when preliminary positive results are used. URINE TCA TESTING MUST BE ORDERED SEPARATELY. USE TEST MNEMONIC: [facility] LAB L505.5005 VISTA UDS PH 6 Normal LAB L505.5015 <1000 ng/mL AMPHETAMINES Normal NEGATIVE LAB L505.5025 < 200 ng/mL BARBITIURATES Normal NEGATIVE LAB L505.5035 < 200 ng/mL BENZODIAZIPINE Normal NEGATIVE LAB L505.5045 < 300 ng/mL COCAINE Normal NEGATIVE LAB L505.5055 < 500 High ng/mL ECSTACY POSITIVE LAB L505.5065 < 300 ng/mL METHADONE Normal NEGATIVE LAB L505.5075 < 300 ng/mL OPIATES Normal NEGATIVE LAB L505.5085 < 25 ng/mL PCP Normal NEGATIVE LAB L505.5095 < 50 ng/mL THC Normal NEGATIVE Performed By: #### L505.5000 #### [facility] [place], [address] URINALYSIS, COMPLETE Collected: 07/09/2018 Status: F Source: [place] 10:10 PM [facility] REPOSITORY Order Comment: Order Date: 07/09/18 How was Urine Obtained? CATHETER SPECIMEN TYPE CODE TESTS RESULT OUT OF RANGE REFERENCE UNITS LAB L400.3000 Yellow COLOR Normal Yellow LAB L400.3050 Clear Normal CLARITY Clear LAB L400.3200 Normal mg/dl Normal GLUCOSE, UR Normal LAB L400.3300 Negative mg/dL Normal BILIRUBIN URINE Negative LAB L400.3400 Negative mg/dl Normal KETONE UR Negative LAB L400.3465 1.002-1.030 Normal SP.GR. DIPSTX 1.010 LAB L400.3550 5.0 - 8.0 pH UR Normal 7.0 LAB L400.3600 Negative mg/dl PROT Normal DIPSTX Negative LAB L400.3700 Normal mg/dl Normal UROBILI Normal LAB L400.3750 Negative Normal NITRITE UR Negative LAB L400.3780 Negative /ul Normal OCCULT BLOOD-UR Negative LAB L400.3800 Negative /ul High LEUK 25 ESTERASE LAB L400.4050 0-5 /hpf WBC 0 Normal SEEN LAB L400.4100 0-5 /hpf 0 Normal RBC-UA SEEN LAB L400.4150 5-10 /hpf SQUAM 0 Normal EPI SEEN LAB L400.4300 None Seen /hpf 0 Normal BACTERIA SEEN LAB L400.4350 <or=2+ /hpf 0 Normal MUCUS, URINE SEEN Performed By: #### L400.0001 #### [facility] [address] [facility]. [place], [place], [address] ALCOHOL, BLOOD Collected: 07/09/2018 Status: F Source: [place] (MEDICAL)-SERUM 10:10 PM [facility] REPOSITORY TYPE CODE TESTS RESULT OUT OF RANGE REFERENCE UNITS LAB L501.9100 mg/dL Normal SERUM < 3.0 ETOH Result Comment: The serum:whole blood ethanol ratio is approximately 1.14 and varies slightly with hematocrit. Medical Alcohol reference interval and critical value in non-tolerant individuals; 50 - 100 Impairment 100 Intoxication 100 - 250 Severe Poisoning 250 - 400 Deep/possible fatal coma Performed By: #### L501.9100 #### [facility] [address] [facility] [place], [place], [address] Observed: 07/09/2018 Status: F Source: [place] INFLUENZA A+B (RAPID 9:58 PM [facility]) REPOSITORY FLU A/B Rapid Negative test results should be confirmed with FLU PANEL MOLECULAR if indicated. Influenza Ag, Direct Presumptive NEGATIVE for Influenza A/B Antigen (See Note) Performed By: #### M101.0101 #### [facility] [address] [facility] [place], [address] CHEST 1 VIEW Observed: 07/09/2018 Status: F Source: [place] (PORTABLE) 9:44 PM [facility] REPOSITORY [facility] Imaging Services [address] [place] [address] Chest 1 View (Portable) MR#: [id number] Acct: [id number] Name: SIMI NIELSEN Rep #: [id number] : 1970 F 48 From: Anna Hughes MD PCP: Paty Catalan DO Status: REG ER Study: Chest 1 View (Portable) Date of Exam: 07/09/18 Exam# [id number] Ordering Dr: Vianney Cuenca MD STUDY: X-RAY CHEST REASON FOR EXAM: Female, 48 years old. Altered mental status. TECHNIQUE: Portable chest. COMPARISON: 06/26/2018. FINDINGS: The lungs are clear and expanded. [...] x-ray examination of the chest. 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 Altered mental status. RADIATION DOSAGE (If Supplied By Facility): CTDIvol = ( 44.99 ) mGy, DLP = ( 829.85 ) mGycm TECHNIQUE: Transaxial CT imaging of the brain was performed without administration of intravenous contrast material. Individualized dose optimization techniques were used for this CT. COMPARISON: 03/15/2018. FINDINGS: Normal soft tissue structures. Normal calvarium. Normal size ventricles and extra-axial spaces for the patient's age. Normal white matter tracts of the cerebral hemispheres. Normal basal ganglia and thalami. Normal brainstem. Normal cerebellum. There is no intracranial hemorrhage. There are no findings of an acute ischemic infarction. Normal visualized paranasal sinuses. CT/Brain/Head without Contrast IMPRESSION: Normal unenhanced CT scan of the brain. Electronically Signed: Anna Hughes MD at 22:43 EST Tel , Service support , CC: Vianney Cuenca MD; Paty Catalan DO Berry Picker Machine Operator: Signed BEDSIDE GLUCOSE Collected: 07/09/2018 Status: F Source: [place] 9:36 PM [facility] REPOSITORY TYPE CODE TESTS RESULT OUT OF RANGE REFERENCE UNITS LAB L501.080 70-110 mg/dL Normal BEDSIDE GLU 92 Result Comment: MANAGEMENT OF PATIENT CARE PER NURSING PROTOCOL Performed By: #### L501.080 #### [facility] Point of Care [address] [place] [address] CBC W/DIFF, AUTOMATED Collected: 07/09/2018 Status: F Source: [place] 9:25 PM [facility] REPOSITORY TYPE CODE TESTS RESULT OUT OF RANGE REFERENCE UNITS LAB L100.1000 4.4-11.0 K/mm3 Normal WBC 7.8 LAB L100.1200 4.2-5.4 M/mm3 Normal RBC 4.74 LAB L100.1300 12.0-15.0 g/dl Normal HGB 14.7 LAB L100.1400 37-47 % Normal HCT 44.2 LAB L100.1500 81-99 fL Normal MCV 93.2 LAB L100.1600 27.0-32.0 pg Normal MCH 31.0 LAB L100.1700 32-36 g/gl Normal MCHC 33.3 LAB L100.1810 11.6-14.6 % Normal RDW CV 12.4 LAB L100.1820 35.1-43.9 fl Normal RDW SD 42.0 LAB L100.1900 150-450 K/mm3 Normal PLT 267 LAB L100.2000 6.2-12.0 fl Normal MPV 10.2 LAB L100.2100 47-70 % Normal NEUT% 51.8 LAB L100.2200 19-41 % Normal LY% 36.7 LAB L100.2300 0-10 % Normal MONO% 7.5 LAB L100.2400 0-5 % Normal EO% 3.6 LAB L100.2500 0-1 % Normal BASO% 0.3 LAB L100.2550 0.0-0.9 % Normal IM GRAN % 0.100 Result Comment: IG% - Immature Granulocytes (promyelocytes, myelocytes and metamyelocytes) > 1% indicates that a LEFT SHIFT is Present. LAB L100.2620 2.0-7.7 X10 3/uL Normal Absolute Neut 4.0 LAB L100.2720 0.83-4.51 X10 3/ul Normal Absolute Lymph 2.85 Performed By: #### L100.0100 #### [facility] [address] [place], [place], [address] AMMONIA Collected: 07/09/2018 Status: F Source: [place] 9:25 PM [facility] REPOSITORY TYPE CODE TESTS RESULT OUT OF REFERENCE UNITS RANGE LAB L503.5510 11-32 umol/L High AMMONIA 41.0 Performed By: #### L503.5510 #### [facility] [address] [place], [address] COMPREHENSIVE METABOLIC Collected: 07/09/2018 Status: F Source: [place] 9:25 PM [facility] REPOSITORY TYPE CODE TESTS RESULT OUT OF RANGE REFERENCE UNITS LAB L501.0100 74-106 mg/dL Normal GLU 90 Result Comment: Please note revised GLUCOSE reference range effective 2017. LAB L501.1000 7-18 mg/dL High BUN 20 LAB L501.1100 0.55-1.02 mg/dL High CREAT,SERUM 1.17 Result Comment: The validity of the calculated GFR AND GFRAA in patients over 70 years has not been determined. Clinical correlation is essential. LAB L501.1110 >60 mL/min Low EST GFR 52 Result Comment: Non- GFR Calc LAB L501.1115 >60 mL/min Normal EST GFR - AA 63 Result Comment: GFR Calc LAB L501.1255 ml/min Normal Estimated CRCL 49.67 LAB L501.1300 10-20 RATIO Normal BUN/CRE 17.1 LAB L501.1500 6.4-8. g/dL Normal 2 T PROT 7.7 LAB L501.1800 3.2-5. g/dL Normal 0 ALB 3.8 LAB L501.1950 2.2-4. g/dL Normal 2 GLOB 3.9 LAB L501.2000 0.9-2. RATIO Normal 4 A/G 1.0 LAB L501.2200 8.5-10 mg/dL Normal .1 CA 8.8 LAB L501.4100 15-37 U/L Normal AST 15 LAB L501.4305 45-117 U/L Normal ALK P 97 LAB L501.4405 13-56 U/L Normal ALT 23 LAB L501.4600 0.20-1 mg/dL Normal .00 T BILI 0.60 LAB L501.5300 136-14 mmol/L Normal 5 NA 140 LAB L501.5600 3.5-5. mmol/L Normal 1 K 3.6 LAB L501.5900 98-107 mmol/L Normal CL 103 LAB L501.6100 21.0-3 mmol/L Normal 2.0 CO2 25.0 LAB L501.6200 5-15 Normal GAP 12 Performed By: #### L500.4050, L501.4010 #### [facility] [address] [place], [address] TROPONIN-I Collected: 07/09/2018 Status: F Source: [place] 9:25 PM [facility] REPOSITORY TYPE CODE TESTS RESULT OUT OF RANGE REFERENCE UNITS LAB L501.4010 <0.045 ng/mL Normal < 0.015 TROPONIN-I Result Comment: TROPONIN-I EXPECTED VALUES <0.045 Negative 0.045 - 0.590 Consistent with Cardiac Damage > OR = 0.600 Critical Value Not every elevated troponin is indicative of GA. These values should be used with clinical judgement in examining the patient's clinical picture for diagnosis. To establish a diagnosis of GA versus myocardial injury, there must be a demonstrated rise and/or fall in the troponin values, in addition to ischemic symptoms, EKG changes, new regional wall motion abnormality, and/or angiographical evidence. PLEASE NOTE: REFERENCE RANGES EDITED 17 Performed By: #### L500.4050, L501.4010 #### [facility] [address], [address] LACTIC ACID Collected: 07/09/2018 Status: F Source: [place] 9:25 PM [facility] [facility] Order Comment: Yes/No query for Sepsis Lactate Rule Y TYPE CODE TESTS RESULT OUT OF REFERENCE UNITS RANGE LAB L503.6005 0.4-2.0 mmol/L High LACTIC ACID 2.6 Result Comment: Critical Result(s) Called at: 22:13:44 07/09/2018 by: Stacey Cook Performed By: #### L503.6005 #### [facility] [address] [place], [address] THYROID STIM HORMONE Collected: 07/09/2018 Status: F Source: [place] (TSH) 9:25 PM [facility] TYPE CODE TESTS RESULT OUT OF RANGE REFERENCE UNITS LAB L501.9520 0.358-3.74 uIU/mL Normal TSH 2.81 Performed By: #### L501.9520 #### [facility] [address] [place], [address] 12 LEAD ELECTROCARDIOGRAM Observed: 06/27/2018 Status: F Source: [place] 12:49 PM [facility] Cardiovascular Services [address] [place] [address] 12 Lead EKG 06/26/18 0230 MR#: [id number] Acct: [id number] Name: SIMI NIELSEN Rep #: [id number] : 1970 48 From: Marshall Ford MD Attending Dr: Status: DEP ER Ordering Dr: Richard Abreu MD Date: 06/26/18 Location: ED Sex: F C Admitted: Test Reason : CP Blood Pressure : / mmHG Vent. Rate : 074 BPM Atrial Rate : 074 BPM P-R Int : 158 ms QRS Dur : 088 ms QT Int : 424 ms P-R-T Axes : 025 -09 005 degrees QTc Int : 470 ms Normal sinus rhythm Normal ECG Confirmed by EDDY LEON, MARSHALL ([id number]), publication editor NAYANA SAWANT ([id number]) on 06/27/2018 12:49:00 PM Referred By: GARRICK Confirmed By:MARSHALL FORD MD 06/27/18 1249 Date Marshall Ford MD CC: aPty Catalan DO; Richard Abreu MD Signed DISCHARGE INSTRUCTION Observed: 06/26/2018 Status: F Source: [place] 6:47 AM [facility] Medical Records Department [address] [place] [address] Discharge Instruction 06/26/18 0332 MR#: [id number] Acct: [id number] Name: SIMI NIELSEN Amanda Rep #: [id number] : 1970 48 From: Richard Abreu MD PCP: Paty Catalan DO Status: DEP ER ED Disposition - Plan for ED Patient: Disposition: Home or Assisted Living Chief Complaint: Chest Pain Instructions: ED Chest Pain Atypical Unkn Cause Referrals: Paty Catalan DO [Primary Care Provider] - What to do if you have Problems For any increased pain, shortness of breath, bleeding, nausea or vomiting, chest pain, or any unexpected problems, contact your Primary Care Provider. Call [facility] ([phone]) or report to the closest Emergency Room. Call 911 if necessary. 06/26/18 0647 <Electronically signed by Richard Abreu MD> Date Richard Abreu MD Cosigner Signature (If Indicated): Date CC: Paty Catalan DO EMERGENCY DEPARTMENT Observed: 06/26/2018 Status: F Source: [place] SUMMARY 3:32 AM [facility] Medical Records Department [address] [place] [address] Emergency Department Summary 06/26/18 0245 MR#: [id number] Acct: [id number] Name: SIMI NIELSEN Rep #: [id number] : 1970 48 From: Richard Abreu MD PCP: Paty Catalan DO Status: REG ER - ER Visit Summary Date of Service: 06/26/18 Chief Complaint: [] Chest pain History of Present Illness: The patient is a 48 F patient stated she has had chest pain for last 4 hours but is been coming and going for the last 24- 48 hours. Over the last 4 hours is been continuous aching. Located the right side of her chest. Current severity is mild. Maximum severity is mild to moderate. Worsened by nothing. Relieved by nothing. No home treatment. No nausea vomiting diaphoresis dyspnea or other associated symptoms. She is on Eliquis for history of remote pulmonary embolism. She stated she has had chest pain like this in the past. She had a negative stress test 2 years ago per patient. She stated she had a heart cath in early 1999 that was normal. She does not have cardiac stents. She does have cardiac risk factors including hypertension and diabetes. No recent illness ROS General: Denies fever, chills, sweats Eyes: Denies visual changes, blurred vision, double vision ENT: Denies ear pain, rhinorrhea, sore throat Cardiovascular: Denies palpitations, heart racing Respiratory: Denies dyspnea, cough, sputum, dyspnea on exertion, orthopnea,PND GI: Denies abdominal pain, nausea, vomiting, diarrhea, constipation, melena : Denies dysuria, hematuria, frequency Musculoskeletal: Denies myalgias, arthralgias, neck pain, back pain Skin: Denies rash, abscess, abrasions Neuro: Denies headache, weakness, paresthesia Psych: Denies depression, anxiety Endo: Denies polyuria, polydipsia, polyphagia Heme: Denies easy bruising, easy bleeding, lymphadenopathy Allergy: Denies hives, swelling Physical Examination: [] Vital signs reviewed General: Well-nourished well-developed Head: Normocephalic atraumatic Eyes: Pupils equal round and reactive to light extraocular movements intact ENT: TMs clear no hemotympanum no trauma Neck: Nontender full range of motion Cardiovascular: Regular rate rhythm no murmurs normal S1-S2 Respiratory: No distress clear to auscultation bilaterally chest nontender Abdomen: Soft nontender nondistended normal bowel sounds no masses Back: Nontender no CVA tenderness Extremities: Nontender active range of motion 4 extremities no trauma Skin: Normal color no trauma Neuro alert oriented cranial nerves II through XII intact normal strength sensation reflexes Test Results: [] Emergency Department Course and Treatment: [] EKG shows sinus rhythm at a rate of 74. T wave inversion in inferior lead III that is unchanged from previous. No acute ischemic findings. Patient Given aspirin. Lab work and chest x-ray obtained. Lab work showed no significant abnormalities. CBC normal. Chemistries normal except creatinine 1.0 calcium 8.4 troponin negative chest x-ray normal. On reevaluation she is pain- free resting comfortably. She does not want to be admitted. I have a low suspicion for cardiac cause of the symptoms. She does have a significant cardiac history. Her last stress test was 2 years ago. I did discuss being admitted for stress test and she would like to go home. She understands the risk of doing this. She will return if she worsens. Blood pressure 115 systolic Treatment Plan: [] Disposition: [] Impression: [] Atypical chest pain This note was generated with [employer] dictation software. It may contain incorrect words, spelling, and punctuation that were not noted in review of the chart prior to signing ED Disposition - Plan for ED Patient: Chief Complaint: Chest Pain Referrals: Paty Catalan DO [Primary Care Provider] - What to do if you have Problems For any increased pain, shortness of breath, bleeding, nausea or vomiting, chest pain, or any unexpected problems, contact your Primary Care Provider. Call [facility] ([phone]) or report to the closest Emergency Room. Call 911 if necessary. 06/26/18 0332 <Electronically signed by Richard Abreu MD> Date Richard Abreu MD Cosigner Signature (If Indicated): Date CC: Paty Catalan DO CHEST PA AND LATERAL Observed: 06/26/2018 Status: F Source: [place] 2:46 AM [facility] Imaging Services [address] [place] [address] Chest PA and Lateral MR#: [id number] Acct: [id number] Name: SIMI NIELSEN Rep #: [id number] : 1970 F 48 From: Saud Oneil MD PCP: Paty Catalan DO Status: REG ER Study: Chest PA and Lateral Date of Exam: 06/26/18 Exam# [id number] Ordering Dr: Richard Abreu MD HISTORY: CHEST PAIN SINCE LAST EVENING. HX HTN EXAM: XR Chest 2 Views: COMPARISON: 03/15/2018 and 06/02/2017 FINDINGS: EKG leads in place. Chronic mild elevation of the right hemidiaphragm and stable prominence of the right infrahilar bronchovascular markings. No acute infiltrate. Left lung appears clear. Normal heart size. No vascular congestion or pleural effusion. No pneumothorax. The bony thorax appears intact. RAD/Chest PA and Lateral IMPRESSION: No acute disease or significant change. 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 CBC W/DIFF, AUTOMATED Collected: 06/26/2018 Status: F Source: [place] 2:43 AM [facility] TYPE CODE TESTS RESULT OUT OF RANGE REFERENCE UNITS LAB L100.1000 4.4-11.0 K/mm3 Normal WBC 8.4 LAB L100.1200 4.2-5.4 M/mm3 Low RBC 4.16 LAB L100.1300 12.0-15.0 g/dl Normal HGB 12.8 LAB L100.1400 37-47 % Normal HCT 39.4 LAB L100.1500 81-99 fL Normal MCV 94.7 LAB L100.1600 27.0-32.0 pg Normal MCH 30.8 LAB L100.1700 32-36 g/gl Normal MCHC 32.5 LAB L100.1810 11.6-14.6 % Normal RDW CV 13.2 LAB L100.1820 35.1-43.9 fl High RDW SD 45.7 LAB L100.1900 150-450 K/mm3 Normal PLT 245 LAB L100.2000 6.2-12.0 fl Normal MPV 9.7 LAB L100.2100 47-70 % Normal NEUT% 58.3 LAB L100.2200 19-41 % Normal LY% 29.2 LAB L100.2300 0-10 % Normal MONO% 7.4 LAB L100.2400 0-5 % Normal EO% 4.9 LAB L100.2500 0-1 % Normal BASO% 0.1 LAB L100.2550 0.0-0.9 % Normal IM GRAN % 0.100 Result Comment: IG% - Immature Granulocytes (promyelocytes, myelocytes and metamyelocytes) > 1% indicates that a LEFT SHIFT is Present. LAB L100.2620 2.0-7.7 X10 3/uL Normal Absolute Neut 4.9 LAB L100.2720 0.83-4.51 X10 3/ul Normal Absolute Lymph 2.44 Performed By: #### L100.0100 #### [facility] [address] [facility] [place], [address] BASIC METABOLIC Collected: 06/26/2018 Status: F Source: [place] PRO[place] (BMP) 2:43 AM [facility] TYPE CODE TESTS RESULT OUT OF RANGE REFERENCE UNITS LAB L501.0100 74-106 mg/dL High GLU 121 Result Comment: Fasting Glucose result from 100 to 125 mg/dL suggests IMPAIRED HOMEOSTASIS per A.D.A. criteria. Please note revised GLUCOSE reference range effective 2017. LAB L501.1000 7-18 mg/dL High BUN 25 LAB L501.1100 0.55-1.02 mg/dL High CREAT,SERUM 1.05 Result Comment: The validity of the calculated GFR AND GFRAA in patients over 70 years has not been determined. Clinical correlation is essential. LAB L501.1110 >60 mL/min Low EST GFR 59 Result Comment: Non- GFR Calc LAB L501.1115 >60 mL/min Normal EST GFR - AA 71 Result Comment: GFR Calc LAB L501.1255 ml/min Normal Estimated CRCL 55.35 LAB L501.1300 10-20 RATIO High BUN/CRE 23.8 LAB L501.2200 8.5-10 mg/dL Low .1 CA 8.4 LAB L501.5300 136-14 mmol/L Normal 5 NA 140 LAB L501.5600 3.5-5. mmol/L Normal 1 K 3.7 LAB L501.5900 98-107 mmol/L Normal CL 102 LAB L501.6100 21.0-3 mmol/L Normal 2.0 CO2 27.0 LAB L501.6200 5-15 Normal GAP 11 Performed By: #### L500.2500, L501.4010 #### [facility] [address] [facility]. [place], [place], [address] TROPONIN-I Collected: 06/26/2018 Status: F Source: [place] 2:43 AM [facility] TYPE CODE TESTS RESULT OUT OF RANGE REFERENCE UNITS LAB L501.4010 <0.045 ng/mL Normal < 0.015 TROPONIN-I Result Comment: TROPONIN-I EXPECTED VALUES <0.045 Negative 0.045 - 0.590 Consistent with Cardiac Damage > OR = 0.600 Critical Value Not every elevated troponin is indicative of GA. These values should be used with clinical judgement in examining the patient's clinical picture for diagnosis. To establish a diagnosis of GA versus myocardial injury, there must be a demonstrated rise and/or fall in the troponin values, in addition to ischemic symptoms, EKG changes, new regional wall motion abnormality, and/or angiographical evidence. PLEASE NOTE: REFERENCE RANGES EDITED 17 Performed By: #### L500.2500, L501.4010 #### [facility] [address] [place], [address] ED [facility] Observed: 04/19/2018 Status: F Source: [place] 12:21 AM [facility] REPOS[facility]ORY [address] [address] Emergency Department Discharge Instructions SIMI NIELSEN , Please provide this information to your Primary Care/Specialist Name : SIMI NIELSEN Amanda Current Date : 04/19/2018 00:21:13 : 1970 12:00 PM Primary Care Physician: Physician, No PCP Diagnosis : Follow-Up Instructions: NIELSENSIMI REHMAN Amanda has been given these follow-up instructions: Laboratory Orders: Name: Status: CBC with Differential Completed Basic Metabolic Panel Completed Hepatic Function Panel Completed Lipase Completed Troponin I Completed BNP (B -Type Natriuretic Peptide) Completed Prothrombin Time Completed GFRaa Completed GFRbb Completed Magnesium Level Completed Radiology Orders: Name: Status: XR Chest 2 Views Completed Diagnostic Tests: Name: Status: ECG 12 Lead Completed Procedure(s) and Patient Education(s) : EMERGENCY SERVICES MEDICATION LIST Lista de Medicaciones de los Servicios de Emergencia Name SIMI NIELSEN MRN (COL)-[id number] PLEASE READ THE FOLLOWING REGARDING YOUR MEDICATIONS Based on the information available during your visit we have given you the medication instructions below. Continue taking medications you took prior to your visit unless you have been told to change. Pl ease share this information with your own doctor. Carry a list of your medications with you in case of an emergency. Update it when medications are stopped, doses are changed, or new medications (includ ing jnzm-ebr-licxpjq products) are added. If you have any questions, check with your doctor. Por la informaci??n disponible gloria garibay visita, las instrucciones de medicaci??n aparecen debajo. Favor de continuar tomando las medicaciones Ud. eugene?? antes de garibay visita por lo menos que hay cambios. Favor de compartir esta informaci??n con garibay medico. Lleva bob lista de medicaciones consigo por lew de emergenc??a. Actualiza la lista cuando Ud. kris de erich las medicaciones, si cambian las dosis, o si hay nuevas medicaciones a??adidas (incluyendo medicaciones vendidas sin prescripci??n). Favor de preguntar a garibay medico por cualquier dania. THESE ARE THE MEDICATIONS YOU SHOULD BE TAKING apixaban (Eliquis 5 mg oral tablet) 1 Tab(s) By Mouth Twice a day. BuPROPion (Wellbutrin XL 300 mg/24 hours oral tablet) 1 Tab(s) By Mouth once a day. cephalexin (Keflex monohydrate 500 mg oral capsule) 1 Capsule By Mouth Twice a day for 10 Days. Refills: 0. Freetext Medication (Boost) 1 can By Mouth 3 Times a day. furosemide (Lasix 40 mg oral tablet) 1 Tab(s) By Mouth once a day. loperamide (Imodium A-D EZ Chews 2 mg oral tablet, chewable) 1 Tab(s) Chew as needed as needed for loose stool. after each loose stool, no more than 4 doses. magnesium hydroxide (Milk of Magnesia 8% oral suspension) 30 Milliliter By Mouth every 4 hours as needed as needed for constipation. MetFORMIN (metFORMIN 500 mg oral tablet) 1 Tab(s) By Mouth once a day. OLANZapine (ZyPREXA 10 mg oral tablet) 1 Tab(s) By Mouth once a day. QUEtiapine (SEROquel 300 mg oral tablet) 2 Tab(s) By Mouth Bedtime. sertraline (Zoloft 25 mg oral tablet) 1 Tab(s) By Mouth Bedtime. TraZODone (traZODone 100 mg oral tablet) 1 Tab(s) By Mouth Bedtime as needed Insomnia/Sleep. MEDICATIONS GIVEN DURING MEDICAL VISIT Sodium Chloride 0.9% 1,000 mL last dose given on 04/18/2018 at 19:23 Route: Intravenous Bolus, Infuse over 60 mins. NON-MEDICATION PRESCRIPTION SCHEDULING PHONE NUMBER: MEDICATION CHANGE DETAILS (Not your Final Home Medication List) During the course of your visit, your home medication list was updated with the most current information. The details of those changes are shown below: NEW MEDICATIONS None UPDATED MEDICATIONS None UNCHANGED MEDICATIONS Other Medications apixaban (Eliquis 5 mg oral tablet) 1 Tab(s) By Mouth Twice a day. Comment BuPROPion (Wellbutrin XL 300 mg/24 hours oral tablet) 1 Tab(s) By Mouth once a day. Comment cephalexin (Keflex monohydrate 500 mg oral capsule) 1 Capsule By Mouth Twice a day for 10 Days. Refills: 0. Comment Freetext Medication (Boost) 1 can By Mouth 3 Times a day. Comment furosemide (Lasix 40 mg oral tablet) 1 Tab(s) By Mouth once a day. Comment loperamide (Imodium A-D EZ Chews 2 mg oral tablet, chewable) 1 Tab(s) Chew as needed as needed for loose stool. after each loose stool, no more than 4 doses. Comment magnesium hydroxide (Milk of Magnesia 8% oral suspension) 30 Milliliter By Mouth every 4 hours as needed as needed for constipation. Comment MetFORMIN (metFORMIN 500 mg oral tablet) 1 Tab(s) By Mouth once a day. Comment OLANZapine (ZyPREXA 10 mg oral tablet) 1 Tab(s) By Mouth once a day. Comment QUEtiapine (SEROquel 300 mg oral tablet) 2 Tab(s) By Mouth Bedtime. Comment sertraline (Zoloft 25 mg oral tablet) 1 Tab(s) By Mouth Bedtime. Comment TraZODone (traZODone 100 mg oral tablet) 1 Tab(s) By Mouth Bedtime as needed Insomnia/Sleep. Comment STOP TAKING THESE MEDICATIONS None DO NOT TAKE UNTIL YOU TALK TO YOUR DOCTOR None [place] [address] Emergency Department Discharge Instructions Name: SIMI NIELSEN Current Date: 04/19/2018 00:21:13 : 1970 12:00 PM Primary Physician: Physician, No PCP We would like to thank you for choosing [facility] for your emergency medical needs. We examined and treated you today on an emergency basis only. This was not a substitute for, or an ef fort to provide, complete medical care. In most cases, you must let your doctor (or the doctor we referred you to) check you again. Tell your doctor about any new or lasting problems. We cannot recogniz e and treat all injuries or illnesses in one emergency department visit. After you leave, you should follow the directions attached. When arranging for follow-up care with your physician/referral identify yourself as being seen in the emergency department. For language assistance please call [phone]. Instructions for obtaining X-rays: When following up with your doctor, you may need to take copies of your x-rays that were done in the Emergency Department. If you didn't receive these upon your discharge from the emergency department, please call . When the final report becomes available and it is reviewed, the emergency department will attempt to contact you if there are any changes in your instructions. It is importan t that you leave accurate information with us on how to contact you. IF you cannot be contacted, YOU must contact the follow-up doctor that you were assigned to make sure that the final official x-ray r eport does not require a change in your treatment. Instructions for obtaining medical records: If you need a copy of your medical records for follow-up, please contact the Health Information Management Department at . Their office hours are 8 AM- 4:30 PM, Wednesday through Wednesday. Leandro catherine note: Results are not immediately available. Please allow a minimum of 36 hours for documentation and results. If you were prescribed an antibiotic: Antibiotics are life-saving drugs and they need to be used properly. Your team might change your antibiotic because test results show that a different antibiotic would be better to treat your infection. Like all medications, antibiotics have side effects. Some can be serious. This includes the risk of getting an antibiotic-resistant infection later, which may be difficult to treat. Remember to take yo ur antibiotics as prescribed. If you have any questions please talk to your healthcare team. Seatbelts: There is no doubt that seatbelts save lives. Every day, people without seatbelts have more serious injuries. Have everyone buckle up, using age appropriate seatbelts or car seats, to reduce their risk of injury. Smoking: If you do smoke, we encourage you to stop. Smoking affects all aspects of your health and the health of those around you. Call the [place] [employer] at 9-442-JWKE-USA or the [employer] at 2-610-OQG-7587 for more information. High blood pressure: Your screening blood pressure today was 110 mm Hg / 70 mm Hg. Hypertension (high blood pressure) is blood pressure over 120/80. People with hypertension should contact their primary care provider within 30 days to follow up. Check your patient portal for additional blood pressure information. Immunizations: Immunization is a way to protect against deadly infections. Discuss this with your child's regional intermodal truck driver, or Public Health Department. Your family practice doctor can determine if you need pneumonia or f rosanna vaccine. The [facility] Department can be reached at . Domestic Violence: If you are a victim of domestic violence (physical, verbal, or emotional), you are not alone. Discuss this with your physician or a friend and call Choices Hotline ( for assistance and support. You are the most important factor in your recovery. Follow the provided instructions carefully. Take your medications as prescribed. Most importantly, see a doctor again as discussed. If you have problems that we have not discussed, call or visit your do ctor right away. If you do not have a primary care physician, we have provided one for you to follow up with. When you call for an appointment, please inform them that you were seen in the emergency dep artment and the date of your visit. If you are unable to reach your doctor and are still experiencing problems, return to the emergency department. For assistance finding a primary care physician, call the Physician Referral Line at . Suicide Hotline: Your mental and emotional well-being is important. If you are in a mental health crisis or are having thoughts of suicide, please call the nationwide suicide hotline, anytime day or night, at 4-363-816-FIYY. Community Pet Technologist: You may be contacted by your local fire department for a follow up visit from a community game artist. The community game artist can help with a home safety check; follow up care, and general home care management. Pharmacy Information: Below is a list of 24 hour pharmacies that we are aware of. We suggest that you call the specific pharmacy for their hours before traveling to a location. Hours may vary on holidays. [facility] [place] [id number] [place], [place] [phone] [place], [place] [address] [phone] [place], [place] [phone] [address], [place] [phone] [address], [place] [phone] [address], [place] [phone] [place] [address] [phone] Take all medications as directed. If you need prescription assistance, contact the following agencies: ?? Partnership for Prescription Assistance at or www.pparx.org ?? [place] [facility] at or www.VolunteerSpotbestrx.org ?? www.[employer] is a site with many valuable coupons Patient Education Materials SIMI NIELSEN has been given the following patient education materials: <><><><><><><><><><><><><><><><><><><><><><><><><><><><><><><><><> Patient Visit Summary Signature SIMI NIELSEN has been given the following list of patient education materials, prescriptions and follow-up instructions: GIA Tenorio LISA J, have received the above patient education materials/instructions and have verbalized understanding: Date Time Patient Signature Date Time Provider Signature DEPART SUMMARY Observed: 04/19/2018 Status: F Source: [place] 12:21 AM [facility] REPOSITORY EMERGENCY DEPARTMENT DISCHARGE SUMMARY PATIENT NAME:SIMI NIELSEN AGE: 48 Years SEX: Female PHONE:[phone] DOS: 04/18/2018 4:39 PM : 1970 ATTENDING PHYSICIAN:Saud Veras MD PCP: Physician, Rere PCP CHIEF COMPLAINT: Medical Clearance Allergies No Known Medication Allergies Problems Active Schizophrenia BALDEMAR (obstructive sleep apnea) HTN (hypertension) Diabetes CHF (congestive heart failure) DISCHARGE DIAGNOSIS: DISCHARGE INSTRUCTIONS: ED PHYSICIAN DOCUMENTATION: History of Present Illness The patient is a 48-year-old female with past medical history of CHF, hypertension, diabetes, schizophrenia, presents to the emergency department from [facility] due to not eating or drinking for the last sev eral days. Per report, she has not had anything significant to eat or drink for the past 3-4 days. When asked about this she states it is a combination of suicidal ideation no desire to eat. She does complain of some nonspecific retrosternal chest pain and periumbilical abdominal pain but has a hard time articulating the duration or timing of her pain. She denies any significant shortness of breath . She has been feeling lightheaded occasionally or the past 2 days with some intermittent nausea. Denies any vomiting or diarrhea. She was referred to the ED for evaluation of medical clearance. Social history: Denies tobacco Medical Decision Making Notes: I saw and evaluated the patient. I have reviewed the chief complaint, triage note, past medical/surgical, family, and social history. Vital signs reviewed. The patient's presenting pulse oximetry was 98% on room air. This was interpreted as normal with no acute intervention needed. The patient's old medical records have been reviewed. I have ordered and reviewed the preliminary interpretation of the following tests: Labs as documented previously in note. CXR: Normal heart size. No pulmonary consolidation, pleural fluid, or pneumothorax. EKG: Normal sinus rhythm, rate 74, no ectopy, no blocks, nonspecific T-wave flattening. No acute ischemia 48-year-old female presents to the ED from [facility] due to refusal to eat or drink much for the last 3-4 days. She does complain of some very nonspecific retrosternal and periumbilical abdominal pain intermi ttently over the past day. EKG is nonacute. Chest x-ray clear. Labs are unremarkable including normal troponin, renal function, and only minimally elevated BUN. She was given IV fluids in the emergency department. Chest pain is nonspecific and she has a low heart score, negative workup, low clinical concern for ACS, very atypical pain with very low clinical suspicion for PE or dissection with no need for further workup or admission. She is medically cleared for discharge back to [facility]. IMPRESSION: 1. Suicidal ideation 2. Dehydration 3. Atypical chest pain 4. Periumbilical abdominal pain. Procedure DISPOSITION: Time of Departure From ER 04/19/2018 00:20 Discharge/[facility]transfer[facility] MEDICATION LISTS: CURRENT MEDICATION LIST apixaban (Eliquis 5 mg oral tablet) 1 Tab(s) By Mouth Twice a day. BuPROPion (Wellbutrin XL 300 mg/24 hours oral tablet) 1 Tab(s) By Mouth once a day. cephalexin (Keflex monohydrate 500 mg oral capsule) 1 Capsule By Mouth Twice a day for 10 Days. Refills: 0. Freetext Medication (Boost) 1 can By Mouth 3 Times a day. furosemide (Lasix 40 mg oral tablet) 1 Tab(s) By Mouth once a day. loperamide (Imodium A-D EZ Chews 2 mg oral tablet, chewable) 1 Tab(s) Chew as needed as needed for loose stool. after each loose stool, no more than 4 doses. magnesium hydroxide (Milk of Magnesia 8% oral suspension) 30 Milliliter By Mouth every 4 hours as needed as needed for constipation. MetFORMIN (metFORMIN 500 mg oral tablet) 1 Tab(s) By Mouth once a day. OLANZapine (ZyPREXA 10 mg oral tablet) 1 Tab(s) By Mouth once a day. QUEtiapine (SEROquel 300 mg oral tablet) 2 Tab(s) By Mouth Bedtime. sertraline (Zoloft 25 mg oral tablet) 1 Tab(s) By Mouth Bedtime. TraZODone (traZODone 100 mg oral tablet) 1 Tab(s) By Mouth Bedtime as needed Insomnia/Sleep. MEDICATIONS GIVEN DURING MEDICAL VISIT Sodium Chloride 0.9% 1,000 mL last dose given on 04/18/2018 at 19:23 Route: Intravenous Bolus, Infuse over 60 mins. LAB RESULTS: LABORATORY TESTS: Abnormal Lab Result(s): Date Order Results 04/18/2018 18:33 Prothrombin Time (PT) H 17.9 Sec 04/18/2018 18:33 BUN H 22 mg/dL RADIOLOGY: RADIOLOGY RESULT(S) (Please contact Medical Records office for further information): 04/18/2018 17:30 XR Chest 2 Views EXAMINATION TYPE: XR Chest 2 Views DATE OF EXAM: 04/18/2018 5:48 PMHISTORY: Chest Pain,COMPARISON: 04/15/2018IMPRESSION: Normal heart size. No pulmonary consolidation, pleural fluid, or pneumothorax. [facility]on Pal thanks you for the opportunity to care for your patient. Workstation ID: [id number] - [id number] FOLLOW UP: CBC WITH DIFFERENTIAL Collected: 04/18/2018 Status: F Source: [facility] 6:33 PM [facility] REPOSITORY TYPE CODE TESTS RESULT OUT OF REFERENCE UNITS RANGE LAB 01313-1(LO 0.0-12.0 % INC) Normal Monocyte 11.3 LAB 33365-6(LO 35.0-45.0 % INC) Normal Hematocrit 41.3 LAB 11729-1(LO 142-424 thou/mcL INC) Normal Platelet Count 196 LAB 742-7(LOIN 0.00-0.90 thou/mcL C) Normal Monocyte 0.80 Absolute LAB 32071-4(LO 22.0-44.0 % INC) Normal Lymphocyte 27.6 LAB 79963-2(LO 11.0-14.8 % INC) RDW Normal 12.8 LAB 718-7(LOIN 12.0-16.0 gm/dL C) Normal Hemoglobin 14.1 LAB 97027-2(LO 40.0-70.0 % INC) Normal Neutrophil 57.2 LAB 08965-1(LO 3.80-5.10 million/mcL INC) Red Normal Blood Cell 4.57 Count LAB 71355-5(LO 32.0-36.0 gm/dL INC) MCHC Normal 34.2 LAB 32853-3(LO 0.0-2.0 % INC) Normal Basophil 0.2 LAB 731-0(LOIN 1.00-4.80 thou/mcL C) Normal Lymphocyte 1.90 Absolute LAB 704-7(LOIN 0.00-0.20 thou/mcL C) Normal Basophil 0.00 Absolute LAB 30865-5(LO 4.6-10.2 thou/mcL INC) WBC Normal Count 6.8 LAB 47564-9(LO 27.0-34.0 Picograms INC) MCH Normal 30.9 LAB 751-8(LOIN 1.80-7.70 thou/mcL C) Normal Neutrophil 3.90 Absolute LAB 711-2(LOIN 0.00-0.70 thou/mcL C) Normal Eosinophil 0.30 Absolute LAB 76312-7(LO 0.0-7.0 % INC) Normal Eosinophil 3.7 LAB 96634-6(LO 80.0-97.0 FL INC) MCV Normal 90.3 LAB 38216-3(LO 6.2-12.1 FL INC) MPV Normal 8.9 Performed By: #### 16703-9 #### [facility] [address], [place] PROTHROMBIN TIME Collected: 04/18/2018 Status: F Source: [facility] 6:33 PM [facility] REPOSITORY TYPE CODE TESTS RESULT OUT OF RANGE REFERENCE UNITS LAB 37943-1(BOLA NC) Normal INR 1.53 Result Comment: The recommended therapeutic INR range for most cardiac indications is 2.0-3.0. For high intensity therapy(ie.mechanical heart valves), the recommended range is 2.5-3.5. LAB 5902-2(LOINC) 9.3-12.4 Sec Prothrombin High Time (PT) 17.9 Performed By: #### 5902-2 #### [facility], [address] [place], [place]. GFRAA Collected: 04/18/2018 Status: F Source: [facility] 6:33 PM [facility] REPOSITORY TYPE CODE TESTS RESULT OUT OF RANGE REFERENCE UNITS LAB 99184-8(LO mL/min INC) GFR Normal Estimated 57 Result Comment: The MDRD equation has not been validated for those over 70 years, women, patients with serious co-morbid conditions, or with extremes of body size, muscle mass of nutritional status. Performed By: #### 75285-5, 05284-0m3, 3040-3, 35122-9, 67278-1, 03890-0, 42977-1 #### [place] [address] [place], [place] GFRBB Collected: 04/18/2018 Status: F Source: [facility] 6:33 PM [facility] REPOSITORY TYPE CODE TESTS RESULT OUT OF RANGE REFERENCE UNITS LAB 70061-4(LO mL/min INC) GFR Normal Estimated Non 47 Performed By: #### 02758-3, 21639-7q8, 3040-3, 65483-4, 31675-5, 38498-1, 04765-1 #### [place] [address] [place], [place] LIPASE Collected: 04/18/2018 Status: F Source: [facility] 6:33 PM [facility] REPOSITORY TYPE CODE TESTS RESULT OUT OF RANGE REFERENCE UNITS LAB 3040-3(LOIN 22-51 Units/L C) Normal Lipase Level 26 Performed By: #### 88258-4, 56368-1a0, 3040-3, 70972-7, 98124-1, 10248-0, 24269-8 #### [facility] [address], [place] MAGNESIUM LEVEL Collected: 04/18/2018 Status: F Source: [facility] 6:33 PM [facility] REPOSITORY TYPE CODE TESTS RESULT OUT OF RANGE REFERENCE UNITS LAB 38119-7(LO 1.8-2.5 mg/dL INC) Normal Magnesium Level 2.1 Performed By: #### 14059-8, 39512-4i4, 3040-3, 41972-0, 52692-6, 85813-7, 40234-3 #### [facility] [address], [place] BASIC METABOLIC PANEL Collected: 04/18/2018 Status: F Source: [facility] 6:33 PM [facility] REPOSITORY TYPE CODE TESTS RESULT OUT OF RANGE REFERENCE UNITS LAB 11960-1(LO 8.9-10.3 mg/dL INC) Calcium Normal Total 9.1 LAB 2951-2(BOLA 136-145 mMol/L NC) Sodium Normal Level 143 LAB 2075-0(BOLA 98-107 mMol/L NC) Chloride Normal Level 105 LAB 2160-0(BOLA 0.60-1.30 mg/dL NC) Normal Creatinine 1.21 LAB 55139-7(LO 70-110 mg/dL INC) Glucose Normal Level 87 LAB 2823-3(BOLA 3.6-5.1 mMol/L NC) Normal Potassium Level 3.7 LAB 2028-9(BOLA 22-32 mMol/L NC) Carbon Normal Dioxide Level 25 LAB 89572-8(LO 8-20 mg/dL INC) High BUN 22 LAB 87043-9(LO 6.0-18.0 mMol/L INC) Anion Normal Gap 13.0 Performed By: #### 74570-9, 00850-6h3, 3040-3, 39088-9, 03583-4, 59452-1, 54848-0 #### [facility] [address], [place] HEPATIC FUNCTION Collected: 04/18/2018 Status: F Source: [facility] PANEL 6:33 PM [facility]ALTH SYSTEM REPOSITORY TYPE CODE TESTS RESULT OUT OF RANGE REFERENCE UNITS LAB 1968-7(BOLA 0.1-0.5 mg/dL NC) Bilirubin Normal Direct 0.1 LAB 1975-2(BOLA 0.3-1.2 mg/dL NC) Bilirubin Normal Total 1.0 LAB 6768-6(BOLA 32-91 Units/L NC) Alkaline Normal Phosphatase 63 LAB 1742-6(BOLA 14-63 Units/L NC) ALT/SGPT Normal 16 LAB 2885-2(BOLA 6.1-7.9 gm/dL NC) Protein Normal 6.6 LAB 1751-7(BOLA 3.5-4.8 gm/dL NC) Albumin Normal Level 3.7 LAB 1920-8(BOLA 15-41 Units/L NC) AST/SGOT Normal 18 LAB 1971-1(BOLA 0.0-1.0 mg/dL NC) Bilirubin Normal Indirect 0.9 Performed By: #### 07224-6, 59470-2n1, 3040-3, 78642-8, 99492-0, 76480-0, 97980-8 #### [facility] [address], [place] TROPONIN I Collected: 04/18/2018 Status: F Source: [facility] 6:33 PM [facility]ALTH SYSTEM REPOSITORY TYPE CODE TESTS RESULT OUT OF RANGE REFERENCE UNITS LAB 72975-9(LO <0.06 ng/mL INC) Normal Troponin I <0.03 Performed By: #### 67090-3, 02541-4u3, 3040-3, 25917-4, 39616-1, 70119-9, 66347-9 #### [facility] [address], [place] BNP (B -TYPE Collected: 04/18/2018 Status: F Source: [facility] NATRIURETIC PEPTIDE) 6:33 PM HEALTH SYSTEM REPOSITORY TYPE CODE TESTS RESULT OUT OF RANGE REFERENCE UNITS LAB 54175-6(LO 0-100 Picogram/m INC) l B Type Normal Natriuretic 12 Peptide Result Comment: Less than 100 CHF is unlikely Greater than 100 Possible left ventricular And less than 400 dysfunction-unlikely acute decompensation Greater than 400 Suspicious for decompensated heart failure Performed By: #### 41310-5 #### [facility] [address], [place] XR CHEST 2 VIEWS Observed: 04/18/2018 Status: F Source: [facility] 5:48 PM [facility]ALTH SYSTEM REPOSITORY EXAMINATION TYPE: XR Chest 2 Views DATE OF EXAM: 04/18/2018 5:48 PM HISTORY: Chest Pain, COMPARISON: 04/15/2018 IMPRESSION: Normal heart size. No pulmonary consolidation, pleural fluid, or pneumothorax. [facility] thanks you for the opportunity to care for your patient. Workstation ID: [id number] - [id number] FINAL REPORT Dictated By: Norman Valdez MD 04/18/2018 17:51 Assigned Physician: Norman Valdez MD Reviewed and Electronically Signed By: Norman Valdez MD 04/18/2018 17:51 Transcribed by: DELFINA 04/18/2018 17:51 Technologist: MATTHEW ED PHYSICIAN NOTES Observed: 04/18/2018 Status: F Source: [facility] 5:30 PM [facility]ALTH SYSTEM REPOSITORY Patient: SIMI NIELSEN MRN: ([id number] [facility]: [id number] Age: 48 years Sex: Female : 1970 Associated Diagnoses: None Author: Saud Veras MD History of Present Illness The patient is a 48-year-old female with past medical history of CHF, hypertension, diabetes, schizophrenia, presents to the emergency department from [facility] due to not eating or drinking for the last sev eral days. Per report, she has not had anything significant to eat or drink for the past 3-4 days. When asked about this she states it is a combination of suicidal ideation no desire to eat. She does complain of some nonspecific retrosternal chest pain and periumbilical abdominal pain but has a hard time articulating the duration or timing of her pain. She denies any significant shortness of breath . She has been feeling lightheaded occasionally or the past 2 days with some intermittent nausea. Denies any vomiting or diarrhea. She was referred to the ED for evaluation of medical clearance. Social history: Denies tobacco Review of Systems All other systems reviewed and are negative except as noted. Nursing triage notes were reviewed by me. Health Status Allergies: Allergic Reactions (All) No Known Medication Allergies. Past Medical/ Family/ Social History Medical history No active or resolved past medical history items have been selected or recorded. Past Medical History Problem List Active CHF (congestive heart failure) Diabetes HTN (hypertension) BALDEMAR (obstructive sleep apnea) Schizophrenia Suicidal thoughts Surgical history: No active procedure history items have been selected or recorded.. Family history: No family history items have been selected or recorded.. Social history: Social and Psychosocial Habits Alcohol 04/15/2018 Risk Assessment: Denies Alcohol Use Substance Abuse 04/15/2018 Risk Assessment: Denies Substance Abuse . Physical Examination Vital Signs Vital Signs/Measurements 04/18/2018 16:55 EDT Temperature 98.0 Degrees F NML Temperature Route Oral Pulse Rate 72 BPM NML Respiratory Rate 16 Br PM NML Pulse Oximetry 98 % NML Oxygen Delivery Room air Systolic BP 107 mm Hg NML Diastolic BP 69 mm Hg NML NIBP Method-CC Cuff, Arm, left 04/18/2018 16:41 EDT Weight 68.160 kg Weight Type Pt reported Weight Lb 150 lbs Weight Oz 4.28 oz Height 152.4 cm Height Type Pt reported Height Ft 5 ft Height in 0 Inch BSA 1.65 m2 Body Mass Index 29.3 kg/m2 . CONSTITUTIONAL: Well-appearing and well-nourished. No acute distress. EYES: PERRL. EOMI. No conjunctival injection. No icterus. HENT: External ears normal, external nose normal. Mouth and throat clear. Moist mucous membranes. Neck supple non-tender. Head atraumatic, normocephalic. RESPIRATORY: Normal chest excursion with respiration. Clear to auscultation bilaterally. CARDIOVASCULAR: Regular rate and rhythm. No murmurs. No cyanosis. No peripheral edema. GASTROINTESTINAL: Abdomen soft, non-distended, periumbilical tenderness to palpation, no guarding or rigidity. Bowel sounds normal. NEUROLOGICAL: Awake, alert and oriented. CN II-XII intact, GCS 15, no focal neurological deficits. PSYCHOLOGICAL: The patient's mood and manner are flat affect, depressed, withdrawn. Grooming and personal hygiene are appropriate. INTEGUMENTARY: Warm and dry. No rash noted. MUSCULOSKELETAL: There are no deformities noted. AFROM. HEME/LYMPH/IMMUNOLOGIC: : Medical Decision Making Notes: I saw and evaluated the patient. I have reviewed the chief complaint, triage note, past medical/surgical, family, and social history. Vital signs reviewed. The patient's presenting pulse oximetry was 98% on room air. This was interpreted as normal with no acute intervention needed. The patient's old medical records have been reviewed. I have ordered and reviewed the preliminary interpretation of the following tests: Labs as documented previously in note. CXR: Normal heart size. No pulmonary consolidation, pleural fluid, or pneumothorax. EKG: Normal sinus rhythm, rate 74, no ectopy, no blocks, nonspecific T-wave flattening. No acute ischemia 48-year-old female presents to the ED from [facility] due to refusal to eat or drink much for the last 3-4 days. She does complain of some very nonspecific retrosternal and periumbilical abdominal pain intermi ttently over the past day. EKG is nonacute. Chest x-ray clear. Labs are unremarkable including normal troponin, renal function, and only minimally elevated BUN. She was given IV fluids in the emergency department. Chest pain is nonspecific and she has a low heart score, negative workup, low clinical concern for ACS, very atypical pain with very low clinical suspicion for PE or dissection with no need for further workup or admission. She is medically cleared for discharge back to [facility]. IMPRESSION: 1. Suicidal ideation 2. Dehydration 3. Atypical chest pain 4. Periumbilical abdominal pain. Reexamination/ Reevaluation Impression and Plan Procedure Addendum Basic Information Patient information:: Chief Complaint from Nursing Triage Note : Chief Complaint-Triage 04/18/2018 16:41 EDT Chief Complaint-Triage Medical Clearance . ED PAT [facility] Observed: 04/16/2018 Status: F Source: [facility] 4:12 AM [facility]ALTH SYSTEM REPOSITORY [address] [id number] Emergency Department Discharge Instructions SIMI NIELSEN , Please provide this information to your Primary Care/Specialist Name : SIMI NIELSEN Current Date : 04/16/2018 04:12:45 : 1970 12:00 PM Primary Care Physician: Physician, Rere PCP Diagnosis : Follow-Up Instructions: SIMI NIELSEN has been given these follow-up instructions: FOLLOW-UP APPOINTMENTS: Provider: Specialty: Address: Date: No PCP Physician Family Practice; Internal Medicine Follow- up as needed Provider: Specialty: Address: Date: Return to Emergency Department Follow-up as needed Laboratory Orders: Name: Status: Glucose POCT for Docking Process Completed Basic Metabolic Panel Completed CBC with Differential Completed Glucose POCT (Uploaded) Completed D-Dimer Quantitative Completed Urinalysis with Microscopic Automatic Completed BNP (B -Type Natriuretic Peptide) Completed Troponin I Completed GFRaa Completed GFRbb Completed Urinalysis Microscopic Completed Radiology Orders: Name: Status: XR Chest 2 Views Completed Diagnostic Tests: Name: Status: ECG 12 Lead Completed Procedure(s) and Patient Education(s) : Urinary Tract Infection; Chest Pain (Nonspecific) (Custom); Depression, Adult; Free Text Instruction (CUSTOM) EMERGENCY SERVICES MEDICATION LIST Lista de Medicaciones de los Servicios de Emergencia Name SIMI NIELSEN [facility]N ([facility]-[id number] [facility]# [id number] PLEASE READ THE FOLLOWING REGARDING YOUR MEDICATIONS Based on the information available during your visit we have given you the medication instructions below. Continue taking medications you took prior to your visit unless you have been told to change. Pl ease share this information with your own doctor. Carry a list of your medications with you in case of an emergency. Update it when medications are stopped, doses are changed, or new medications (includ ing [id number]-ina-rekbgnc products) are added. If you have any questions, check with your doctor. Por la informaci??n disponible gloria garibay visita, las instrucciones de medicaci??n aparecen debajo. Favor de continuar tomando las medicaciones Ud. eugene?? antes de garibay visita por lo menos que hay cambios. Favor de compartir esta informaci??n con garibay medico. Lleva bob lista de medicaciones consigo por lew de emergenc??a. Actualiza la lista cuando Ud. kris de erich las medicaciones, si cambian las dosis, o si hay nuevas medicaciones a??adidas (incluyendo medicaciones vendidas sin prescripci??n). Favor de preguntar a garibay medico por cualquier dania. THESE ARE THE MEDICATIONS YOU SHOULD BE TAKING acetaminophen (Tylenol 325 mg oral tablet) 2 Tab(s) By Mouth every 4 hours as needed Pain-Mild/Fever greater than 100.4 (38C). Al hydroxide/Mg hydroxide/simethicone (Maalox Advanced Maximum Strength oral suspension) 30 Milliliter By Mouth every 4 hours as needed as needed for indigestion. apixaban (Eliquis 5 mg oral tablet) 1 Tab(s) By Mouth Twice a day. BuPROPion (Wellbutrin XL 300 mg/24 hours oral tablet) 1 Tab(s) By Mouth once a day. carvedilol (Coreg 3.125 mg oral tablet) 1 Tab(s) By Mouth Twice a day. cephalexin (Keflex monohydrate 500 mg oral capsule) 1 Capsule By Mouth Twice a day for 10 Days. Refills: 0. Freetext Medication (Boost) 1 can By Mouth 3 Times a day. lisinopril (lisinopril 2.5 mg oral tablet) 1 Tab(s) By Mouth once a day. loperamide (Imodium A-D EZ Chews 2 mg oral tablet, chewable) 1 Tab(s) Chew. after each loose stool, no more than 4 doses. magnesium hydroxide (Milk of Magnesia 8% oral suspension) 30 Milliliter By Mouth every 4 hours as needed as needed for constipation. MetFORMIN (metFORMIN 500 mg oral tablet) 1 Tab(s) By Mouth once a day. QUEtiapine (SEROquel 300 mg oral tablet) 1 Tab(s) By Mouth Bedtime. TraZODone (traZODone 100 mg oral tablet) 1 Tab(s) By Mouth Bedtime as needed Insomnia/Sleep. MEDICATIONS GIVEN DURING MEDICAL VISIT None NON-MEDICATION PRESCRIPTION SCHEDULING PHONE NUMBER: MEDICATION CHANGE DETAILS (Not your Final Home Medication List) During the course of your visit, your home medication list was updated with the most current information. The details of those changes are shown below: NEW MEDICATIONS Printed Prescriptions cephalexin (Keflex monohydrate 500 mg oral capsule) 1 Capsule By Mouth Twice a day for 10 Days. Refills: 0. Comment UPDATED MEDICATIONS None UNCHANGED MEDICATIONS Other Medications acetaminophen (Tylenol 325 mg oral tablet) 2 Tab(s) By Mouth every 4 hours as needed Pain-Mild/Fever greater than 100.4 (38C). Comment Al hydroxide/Mg hydroxide/simethicone (Maalox Advanced Maximum Strength oral suspension) 30 Milliliter By Mouth every 4 hours as needed as needed for indigestion. Comment apixaban (Eliquis 5 mg oral tablet) 1 Tab(s) By Mouth Twice a day. Comment BuPROPion (Wellbutrin XL 300 mg/24 hours oral tablet) 1 Tab(s) By Mouth once a day. Comment carvedilol (Coreg 3.125 mg oral tablet) 1 Tab(s) By Mouth Twice a day. Comment Freetext Medication (Boost) 1 can By Mouth 3 Times a day. Comment lisinopril (lisinopril 2.5 mg oral tablet) 1 Tab(s) By Mouth once a day. Comment loperamide (Imodium A-D EZ Chews 2 mg oral tablet, chewable) 1 Tab(s) Chew. after each loose stool, no more than 4 doses. Comment magnesium hydroxide (Milk of Magnesia 8% oral suspension) 30 Milliliter By Mouth every 4 hours as needed as needed for constipation. Comment MetFORMIN (metFORMIN 500 mg oral tablet) 1 Tab(s) By Mouth once a day. Comment QUEtiapine (SEROquel 300 mg oral tablet) 1 Tab(s) By Mouth Bedtime. Comment TraZODone (traZODone 100 mg oral tablet) 1 Tab(s) By Mouth Bedtime as needed Insomnia/Sleep. Comment STOP TAKING THESE MEDICATIONS None DO NOT TAKE UNTIL YOU TALK TO YOUR DOCTOR None [place] [id number] [place] [phone] Emergency Department Discharge Instructions Name: SIMI NIELSEN Current Date: 04/16/2018 04:12:45 : 1970 12:00 PM Primary Physician: Physician, No PCP We would like to thank you for choosing [facility] for your emergency medical needs. We examined and treated you today on an emergency basis only. This was not a substitute for, or an ef fort to provide, complete medical care. In most cases, you must let your doctor (or the doctor we referred you to) check you again. Tell your doctor about any new or lasting problems. We cannot recogniz e and treat all injuries or illnesses in one emergency department visit. After you leave, you should follow the directions attached. When arranging for follow-up care with your physician/referral identify yourself as being seen in the emergency department. For language assistance please call [phone]. Instructions for obtaining X-rays: When following up with your doctor, you may need to take copies of your x-rays that were done in the Emergency Department. If you didn't receive these upon your discharge from the emergency department, please call . When the final report becomes available and it is reviewed, the emergency department will attempt to contact you if there are any changes in your instructions. It is importan t that you leave accurate information with us on how to contact you. IF you cannot be contacted, YOU must contact the follow-up doctor that you were assigned to make sure that the final official x-ray r eport does not require a change in your treatment. Instructions for obtaining medical records: If you need a copy of your medical records for follow-up, please contact the Health Information Management Department at . Their office hours are 8 AM- 4:30 PM, Wednesday through Wednesday. Leandro catherine note: Results are not immediately available. Please allow a minimum of 36 hours for documentation and results. If you were prescribed an antibiotic: Antibiotics are life-saving drugs and they need to be used properly. Your team might change your antibiotic because test results show that a different antibiotic would be better to treat your infection. Like all medications, antibiotics have side effects. Some can be serious. This includes the risk of getting an antibiotic-resistant infection later, which may be difficult to treat. Remember to take yo ur antibiotics as prescribed. If you have any questions please talk to your healthcare team. Seatbelts: There is no doubt that seatbelts save lives. Every day, people without seatbelts have more serious injuries. Have everyone buckle up, using age appropriate seatbelts or car seats, to reduce their risk of injury. Smoking: If you do smoke, we encourage you to stop. Smoking affects all aspects of your health and the health of those around you. Call the [place] [employer] at 6-082-NPQU-[place] or the [place] [employer] et[employer] at 0-278-YTZ-3799 for more information. High blood pressure: Your screening blood pressure today was 116 mm Hg / 78 mm Hg. Hypertension (high blood pressure) is blood pressure over 120/80. People with hypertension should contact their primary care provider within 30 days to follow up. Check your patient portal for additional blood pressure information. Immunizations: Immunization is a way to protect against deadly infections. Discuss this with your child's regional intermodal truck driver, or Public Health Department. Your family practice doctor can determine if you need pneumonia or f rosanna vaccine. The [facility] Department can be reached at . Domestic Violence: If you are a victim of domestic violence (physical, verbal, or emotional), you are not alone. Discuss this with your physician or a friend and call Choices Hotline ( for assistance and support. You are the most important factor in your recovery. Follow the provided instructions carefully. Take your medications as prescribed. Most importantly, see a doctor again as discussed. If you have problems that we have not discussed, call or visit your do ctor right away. If you do not have a primary care physician, we have provided one for you to follow up with. When you call for an appointment, please inform them that you were seen in the emergency dep artment and the date of your visit. If you are unable to reach your doctor and are still experiencing problems, return to the emergency department. For assistance finding a primary care physician, call the Physician Referral Line at . Suicide Hotline: Your mental and emotional well-being is important. If you are in a mental health crisis or are having thoughts of suicide, please call the nationwide suicide hotline, anytime day or night, at 1-446-716-AGMB. Community Pet Technologist: You may be contacted by your local fire department for a follow up visit from a community game artist. The community game artist can help with a home safety check; follow up care, and general home care management. Pharmacy Information: Below is a list of 24 hour pharmacies that we are aware of. We suggest that you call the specific pharmacy for their hours before traveling to a location. Hours may vary on holidays. [facility] [address], [place] [phone] [address] [facility] [address] [place], [place] [address] [phone] [address], [place] [phone] [address], [place] [phone] [address], [place] [phone] [address], [place] [phone] [place] [address] [phone] Take all medications as directed. If you need prescription assistance, contact the following agencies: ?? Partnership for Prescription Assistance at or www.pparx.org ?? [place] [facility] at or www.VolunteerSpotbestrx.org ?? www.[employer] is a site with many valuable coupons Patient Education Materials SIMI NIELSEN has been given the following patient education materials: Chest Pain (Nonspecific) Chest pain has many causes. Your pain could be caused by something serious, such as a heart attack or a blood clot in the lungs. It could also be caused by something less serious, such as a chest bruise or a virus. Follow up with your doctor. More lab tests or other studies may be needed to find the cause of your pain. Most of the time, nonspecific chest pain will improve within 2 to 3 days of rest and mild pain medicine. HOME CARE ? For chest bruises, you may put ice on the sore area for 15-20 minutes, 3-4 times a day. Do this only if it makes you or your child feel better. ? Put ice in a plastic bag. ? Place a towel between the skin and the bag. ? Rest for the next 2 to 3 days. ? Go back to work if the pain improves. ? See your doctor if the pain lasts longer than 1 to 2 weeks. ? Only take medicine as told by your doctor. ? Quit smoking if you smoke. GET HELP RIGHT AWAY IF: ? There is more pain or pain that spreads to the arm, neck, jaw, back, or belly (abdomen ). ? You or your child has shortness of breath. ? You or your child coughs more than usual or coughs up blood. ? You or your child has very bad back or belly pain, feels sick to his or her stomach (nauseous ), or throws up (vomit s). ? You or your child has very bad weakness. ? You or your child passes out (faint s). ? You or your child has a temperature by mouth above 102? F (38.9? C), not controlled by medicine. Any of these problems may be serious and may be an emergency. Do not wait to see if the problems will go away. Get medical help right away. Call your local emergency services 911 in [place] Do not driv e yourself to the hospital. MAKE SURE YOU: ? Understand these instructions. ? Will watch this condition. ? Will get help right away if you or your child is not doing well or gets worse. Document Released: 11/30/2008 Document Revised: 09/05/2012 Document Reviewed: 11/30/2008 ExitCare? Patient Information ?2013 [employer]. Depression, Adult Depression refers to feeling sad, low, down in the dumps, blue, gloomy, or empty. In general, there are two kinds of depression: 1.??Normal sadness or normal grief. This kind of depression is one that we all feel from time to time after upsetting life experiences, such as the loss of a job or the ending of a relationship. This ki nd of depression is considered normal, is short lived, and resolves within a few days to 2 weeks. Depression experienced after the loss of a loved one (bereavement) often lasts longer than 2 weeks but normally gets better with time. 2.??Clinical depression. This kind of depression lasts longer than normal sadness or normal grief or interferes with your ability to function at home, at work, and in school. It also interferes with you r personal relationships. It affects almost every aspect of your life. Clinical depression is an illness. Symptoms of depression can also be caused by conditions other than those mentioned above, such as: ???Physical illness. Some physical illnesses, including underactive thyroid gland (hypothyroidism), severe anemia, specific types of cancer, diabetes, uncontrolled seizures, heart and lung problems, str okes, and chronic pain are commonly associated with symptoms of depression. ???Side effects of some prescription medicine. In some people, certain types of medicine can cause symptoms of depression. ???Substance abuse. Abuse of alcohol and illicit drugs can cause symptoms of depression. SYMPTOMS Symptoms of normal sadness and normal grief include the following: ???Feeling sad or crying for short periods of time. ???Not caring about anything (apathy). ???Difficulty sleeping or sleeping too much. ???No longer able to enjoy the things you used to enjoy. ???Desire to be by oneself all the time (social isolation). ???Lack of energy or motivation. ???Difficulty concentrating or remembering. ???Change in appetite or weight. ???Restlessness or agitation. Symptoms of clinical depression include the same symptoms of normal sadness or normal grief and also the following symptoms: ???Feeling sad or crying all the time. ???Feelings of guilt or worthlessness. ???Feelings of hopelessness or helplessness. ???Thoughts of suicide or the desire to harm yourself (suicidal ideation). ???Loss of touch with reality (psychotic symptoms). Seeing or hearing things that are not real (hallucinations) or having false beliefs about your life or the people around you (delusions and paranoia). DIAGNOSIS The diagnosis of clinical depression is usually based on how bad the symptoms are and how long they have lasted. Your health care provider will also ask you questions about your medical history and subs tance use to find out if physical illness, use of prescription medicine, or substance abuse is causing your depression. Your health care provider may also order blood tests. TREATMENT Often, normal sadness and normal grief do not require treatment. However, sometimes antidepressant medicine is given for bereavement to ease the depressive symptoms until they resolve. The treatment for clinical depression depends on how bad the symptoms are but often includes antidepressant medicine, counseling with a mental health professional, or both. Your health care provider radha l help to determine what treatment is best for you. Depression caused by physical illness usually goes away with appropriate medical treatment of the illness. If prescription medicine is causing depression, talk with your health care provider about stopp ing the medicine, decreasing the dose, or changing to another medicine. Depression caused by the abuse of alcohol or illicit drugs goes away when you stop using these substances. Some adults need professional help in order to stop drinking or using drugs. SEEK IMMEDIATE MEDICAL CARE IF: ???You have thoughts about hurting yourself or others. ???You lose touch with reality (have psychotic symptoms). ???You are taking medicine for depression and have a serious side effect. FOR MORE INFORMATION ???National [place] on Mental Illness: www.carlito.org?National [place] of Mental Health: www.nimh.nih.gov? This information is not intended to replace advice given to you by your health care provider. Make sure you discuss any questions you have with your health care provider. Document Released: 06/11/2001 Document Revised: 07/05/2015 Document Reviewed: 09/12/2012 [employer] Interactive Patient Education ?2016 [employer] Your labs are reassuring. No electrolyte abnormalities were present. You did complain of chest pain while you're here and we did evaluate you for EKG changes and performed a d-dimer which showed no elev ation. This is reassuring as this means that you do not have a pulmonary embolism. Troponin also showed no elevation. Obstetrics and Gynecology Urinary Tract Infection Urinary tract infections (UTIs) can develop anywhere along your urinary tract. Your urinary tract is your body's drainage system for removing wastes and extra water. Your urinary tract includes two kidn eys, two ureters, a bladder, and a urethra. Your kidneys are a pair of campos-shaped organs. Each kidney is about the size of your fist. They are located below your ribs, one on each side of your spine. CAUSES Infections are caused by microbes, which are microscopic organisms, including fungi, viruses, and bacteria. These organisms are so small that they can only be seen through a microscope. Bacteria are the microbes that most commonly cause UTIs. SYMPTOMS Symptoms of UTIs may vary by age and gender of the patient and by the location of the infection. Symptoms in young women typically include a frequent and intense urge to urinate and a painful, burning f eeling in the bladder or urethra during urination. Older women and men are more likely to be tired, shaky, and weak and have muscle aches and abdominal pain. A fever may mean the infection is in your ki dneys. Other symptoms of a kidney infection include pain in your back or sides below the ribs, nausea, and vomiting. DIAGNOSIS To diagnose a UTI, your caregiver will ask you about your symptoms. Your caregiver also will ask to provide a urine sample. The urine sample will be tested for bacteria and white blood cells. White bloo d cells are made by your body to help fight infection. TREATMENT Typically, UTIs can be treated with medication. Because most UTIs are caused by a bacterial infection, they usually can be treated with the use of antibiotics. The choice of antibiotic and length of hari atment depend on your symptoms and the type of bacteria causing your infection. HOME CARE INSTRUCTIONS ???If you were prescribed antibiotics, take them exactly as your caregiver instructs you. Finish the medication even if you feel better after you have only taken some of the medication. ???Drink enough water and fluids to keep your urine clear or pale yellow. ???Avoid caffeine, tea, and carbonated beverages. They tend to irritate your bladder. ???Empty your bladder often. Avoid holding urine for long periods of time. ???Empty your bladder before and after sexual intercourse. ???After a bowel movement, women should cleanse from front to back. Use each tissue only once. SEEK MEDICAL CARE IF: ???You have back pain. ???You develop a fever. ???Your symptoms do not begin to resolve within 3 days. SEEK IMMEDIATE MEDICAL CARE IF: ???You have severe back pain or lower abdominal pain. ???You develop chills. ???You have nausea or vomiting. ???You have continued burning or discomfort with urination. MAKE SURE YOU: ???Understand these instructions. ???Will watch your condition. ???Will get help right away if you are not doing well or get worse. This information is not intended to replace advice given to you by your health care provider. Make sure you discuss any questions you have with your health care provider. Document Released: 03/24/2006 Document Revised: 07/05/2015 Document Reviewed: 07/22/2012 [employer] Interactive Patient Education ?2016 [employer] VIRUSES OR BACTERIA: WHAT'S GOT YOU SICK? Antibiotics only treat BACTERIAL infections. VIRAL ILLNESSES do not get better with antibiotics. When an antibiotic is not prescribed, ask your healthcare professional for tips on how to relieve symptoms and feel better. Usual Cause Illness Viruses Bacteria Antibiotic Needed? Cold/Runny Nose X NO Bronchitis/Chest Cold (in otherwise healthy adults) X NO Whooping Cough X Yes Flu (not complicated by pneumonia) X NO Strep Throat X Yes Sore Throat X NO Fluid in the Middle Ear (otitis media with effusion) X NO Urinary Tract Infection X Yes For more information visit: www.cdc.gov/getsmart <><><><><><><><><><><><><><><><><><><><><><><><><><><><><><><><><> Patient Visit Summary Signature SIMI NIELSEN has been given the following list of patient education materials, prescriptions and follow-up instructions: GIA Tenorio LISA J, have received the above patient education materials/instructions and have verbalized understanding: Date Time Patient Signature Date Time Provider Signature DEPART SUMMARY Observed: 04/16/2018 Status: F Source: [facility] 4:12 AM HEALTH SYSTEM REPOSITORY EMERGENCY DEPARTMENT DISCHARGE SUMMARY PATIENT NAME:SIMI NIELSEN MRN: [id number] AGE: 48 Years SEX: Female PHONE:[phone] DOS: 04/15/2018 2:44 PM : 1970 ATTENDING PHYSICIAN:Reinier Christie DO PCP: Physician, No PCP CHIEF COMPLAINT: Refusing food/water x4 days ([facility]) Allergies No Known Medication Allergies Problems Active Schizophrenia BALDEMAR (obstructive sleep apnea) HTN (hypertension) Diabetes CHF (congestive heart failure) DISCHARGE DIAGNOSIS: DISCHARGE INSTRUCTIONS: Urinary Tract Infection; Chest Pain (Nonspecific) (Custom); Depression, Adult; Free Text Instruction (CUSTOM) ED PHYSICIAN DOCUMENTATION: History of Present Illness The patient is a?48-year-old female with history of?CHF,?DM, HTN,?BALDEMAR,?and depression who presents emergency Department?as a transfer from [facility] for psychiatry?for decreased oral intak e.?The patient is being seen at the psychiatric facility due to?confusion,?hallucinations,?and suicidal ideation.?Over the last 4 days?the patient has had decreased oral intake and is refusing to perfor m ADLs.?The patient denies any drug or alcohol abuse.?She is difficult to obtain a history from as she mumbles?and?covers her face up with a sheet.?The patient's?affect is very flat?and she answers in o nly 2-3 word sentences. Her response time is also very slow.?Her only complaint is chest pain?which she is unsure of how long this has been present.?According to the documentation from [facility] the patient a lso has a history of pulmonary embolism.?[facility] he has been decreasing the patient's Lasix of 40 mg to 10 mg?per day due to decreased oral intake.?The patient is oriented only to self. ? ? All other systems reviewed and are negative except as noted. Nursing triage notes were reviewed by me and I agree. ? ? ? CONSTITUTIONAL: ?Well-appearing and well-nourished. EYES: ?PERRL. ?Sclera and conjunctiva without drainage or erythema HENT: ?External ears normal, external nose normal. ?Mouth and throat clear. ?Neck supple non-tender. ?Head atraumatic. RESPIRATORY: Normal chest excursion with respiration. ?Clear to auscultation. CARDIOVASCULAR: Regular rhythm. No murmurs. No cyanosis. No peripheral edema.? GASTROINTESTINAL: Abdomen soft, non-distended, non-tender, no guarding or rigidity. ?Bowel sounds normal.? NEUROLOGICAL: Awake and oriented to person.?No extremity weakness or sensory deficit. PSYCHOLOGICAL: The patient's mood?is flat. Grooming and personal hygiene are appropriate.? INTEGUMENTARY: Warm and dry. No rash noted. MUSCULOSKELETAL: ?There are no deformities noted. ? I saw and evaluated the patient. ?I have reviewed the chief complaint, triage note, past medical/surgical, family, and social history. ? The patient's presenting pulse oximetry was 95% on room air. This was interpreted as normal. ? My collaborating physician is Dr. Colindres ? The patient presents as described above as a transfer from [facility] for dehydration.?According to documentation sent from [facility] the patient has been admitted since 04/01/18 for?depression.?She has been refusin g to?eat or drink for 4 days. The patient does not appear especially dehydrated on exam. She is difficult to obtain a history from as her affect is very flat and answers in only 2-3 word sentences.?She is oriented?to self only.?She also complains of hearing voices and being suicidal currently.?The patient is not able to perform a review of systems.?Her only complaint is midsternal chest pain?and she i s on able to provide further information concerning this. The patient doesn't have a history of HTN, CHF, and PE. I'm unsure if she has been compliant with taking her medications,?the patient's vital si gns upon arrival are?all within normal limits.?The patient's respirations are nonlabored. She has no peripheral edema. Lungs sounds are clear throughout.?I will obtain a d-dimer?as well as labs to asses s?for dehydration.?The patient's abdomen is benign. ? EKG demonstrates normal sinus rhythm with no signs of acute ischemia.?Chest x-ray shows no acute findings.?Renal function is intact?with creatinine of 1.1?and there is no leukocytosis.?No?major electro lyte abnormalities noted.?Urinalysis does show signs of infection including 250?leukocyte Estrace,?388 WBCs, and?68 rbc's. There is a large amount of bacteria?in the urine.?No elevation in d-dimer or tr oponin.?The patient will be treated with a ten-day course of Keflex?and this may be?attributing?to the patient's decrease in oral intake.?This time the patient remains nontoxic?and afebrile.?She will be discharged back to [facility] pending transportation. ? Impression 1. Urinary tract infection 2.?Decreased oral intake 3.?Depression ? ? DISPOSITION: Time of Departure From ER 04/16/2018 04:11 Discharge/Transfer From ER Psychiatric facility [facility] (transfer) MEDICATION LISTS: CURRENT MEDICATION LIST acetaminophen (Tylenol 325 mg oral tablet) 2 Tab(s) By Mouth every 4 hours as needed Pain-Mild/Fever greater than 100.4 (38C). Al hydroxide/Mg hydroxide/simethicone (Maalox Advanced Maximum Strength oral suspension) 30 Milliliter By Mouth every 4 hours as needed as needed for indigestion. apixaban (Eliquis 5 mg oral tablet) 1 Tab(s) By Mouth Twice a day. BuPROPion (Wellbutrin XL 300 mg/24 hours oral tablet) 1 Tab(s) By Mouth once a day. carvedilol (Coreg 3.125 mg oral tablet) 1 Tab(s) By Mouth Twice a day. cephalexin (Keflex monohydrate 500 mg oral capsule) 1 Capsule By Mouth Twice a day for 10 Days. Refills: 0. Freetext Medication (Boost) 1 can By Mouth 3 Times a day. lisinopril (lisinopril 2.5 mg oral tablet) 1 Tab(s) By Mouth once a day. loperamide (Imodium A-D EZ Chews 2 mg oral tablet, chewable) 1 Tab(s) Chew. after each loose stool, no more than 4 doses. magnesium hydroxide (Milk of Magnesia 8% oral suspension) 30 Milliliter By Mouth every 4 hours as needed as needed for constipation. MetFORMIN (metFORMIN 500 mg oral tablet) 1 Tab(s) By Mouth once a day. QUEtiapine (SEROquel 300 mg oral tablet) 1 Tab(s) By Mouth Bedtime. TraZODone (traZODone 100 mg oral tablet) 1 Tab(s) By Mouth Bedtime as needed Insomnia/Sleep. MEDICATIONS GIVEN DURING MEDICAL VISIT None LAB RESULTS: LABORATORY TESTS: Abnormal Lab Result(s): Date Order Results 04/15/2018 15:31 Hematocrit H 45.1 % 04/15/2018 15:31 Lymphocyte L 20.6 % 04/15/2018 15:31 BUN H 23 mg/dL 04/15/2018 16:30 Appearance Urine A TURBID 04/15/2018 16:30 Specific [place] Urine H 1.031 04/15/2018 16:30 Blood Urine A 70/UL 04/15/2018 16:30 Ketones Urine A 20MG/DL 04/15/2018 16:30 Protein Urine A 100MG/DL 04/15/2018 16:30 Leukocyte Esterase Urine A 250/UL 04/15/2018 16:30 WBC Urine H 388 /hpf 04/15/2018 16:30 RBC Urine H 68 /hpf 04/15/2018 16:30 Bacteria Urine A MANY 04/15/2018 16:30 WBC Clumps Urine A OCCASSNL 04/15/2018 16:30 Mucous Urine A MANY RADIOLOGY: RADIOLOGY RESULT(S) (Please contact Medical Records office for further information): 04/15/2018 15:40 XR Chest 2 Views EXAMINATION TYPE: XR Chest 2 ViewsDATE OF EXAM : 04/15/2018 3:49 PMHISTORY: Chest PainCOMPARISON: NONEFINDINGS/IMPRESSION: Cardiomediastinal silhouette unremarkable. No pneumothorax or pleural effusion. No focal consolidation or pulmonary edema.[facility] thanks you for the opportunity to care for your patient. Workstation ID: [id number] FOLLOW UP: FOLLOW-UP APPOINTMENTS: Provider: Specialty: Address: Date: No PCP Physician Family Practice; Internal Medicine Follow- up as needed Provider: Specialty: Address: Date: Return to Emergency Department Follow-up as needed URINALYSIS WITH Collected: 04/15/2018 Status: F Source: [facility] [employer] 4:30 PM HEALTH SYSTEM REPOSITORY TYPE CODE TESTS RESULT OUT OF RANGE REFERENCE UNITS LAB 5803-2(LO 4.5-8.0 INC) Normal pH Urine 5.0 LAB 5797-6(LO NEGATIVE INC) Ketones Abnormal Urine 20MG/DL LAB 5799-2(LO NEGATIVE INC) Leukocyte Abnormal Esterase Urine 250/UL LAB 5794-3(LO NEGATIVE INC) Blood Urine Abnormal 70/UL LAB 30747-5(L NORMAL OINC) Normal Urobilinogen NORMAL Urine LAB 16797-8(L NEGATIVE OINC) Normal Nitrite Urine NEGATIVE LAB 5767-9(LO CLEAR INC) Appearance Abnormal Urine TURBID LAB 5811-5(LO 1.002-1.030 INC) High Specific [place] Urine 1.031 LAB 5778-6(LO YELLOW INC) Normal Color Urine YAS[place]Y LAB 5792-7(LO NORMAL INC) Normal Glucose Urine NORMAL LAB 17308-6(L NEGATIVE OINC) Normal Bilirubin Urine NEGATIVE LAB 5804-0(LO NEGATIVE INC) Protein Abnormal Urine 100MG/DL Performed By: #### 16753-7, 78377-6 #### [facility] URINALYSIS MICROSCOPIC Collected: 04/15/2018 Status: F Source: [employer] 4:30 PM HEALTH SYSTEM REPOSITORY TYPE CODE TESTS RESULT OUT OF RANGE REFERENCE UNITS LAB 39685-5(LO FEW/LPF INC) Normal Squamous FEW Epithelial Cells Urine LAB 8247-9(BOLA NONE/LPF NC) Abnormal Mucous Urine MANY LAB 5769-5(BOLA NONE/HPF NC) Abnormal Bacteria Urine MANY LAB 5821-4x1(L 0-5 /hpf OINC) High WBC Urine 388 LAB 98289-3(LO NONE/HPF INC) WBC Abnormal Clumps Urine OCCASSNL LAB 62451-9(LO 0-5 /hpf INC) High RBC Urine 68 Performed By: #### 43022-4, 19135-4 #### [facility], [address] [place], [place]. XR CHEST 2 VIEWS Observed: 04/15/2018 Status: F Source: [facility] 3:49 PM HEALTH SYSTEM REPOSITORY EXAMINATION TYPE: XR Chest 2 Views DATE OF EXAM : 04/15/2018 3:49 PM HISTORY: Chest Pain COMPARISON: NONE FINDINGS/IMPRESSION: Cardiomediastinal silhouette unremarkable. No pneumothorax or pleural effusion. No focal consolidation or pulmonary edema. [facility] thanks you for the opportunity to care for your patient. Workstation ID: [id number] FINAL REPORT Dictated By: Jamie Hollins MD 04/15/2018 15:51 Assigned Physician: Jamie Hollins MD Reviewed and Electronically Signed By: Jamie Hollins MD 04/15/2018 15:52 Transcribed by: DELFINA 04/15/2018 15:51 Technologist: MOE ED PHYSICIAN NOTES Observed: 04/15/2018 Status: F Source: [facility] 3:41 PM HEALTH SYSTEM REPOSITORY Chief Complaint Refusing food/water x4 days ([facility]) ED Assigned Provider/Time Time Seen: Collette Travis CNP / 04/15/2018 15:01 History of Present Illness The patient is a 48-year-old female with history of CHF, DM, HTN, BALDEMAR, and depression who presents emergency Department as a transfer from [facility] for psychiatry for decreased or al intake. The patient is being seen at the psychiatric facility due to confusion, hallucinations, and suicidal ideation. Over the last 4 days the patient has had decreased oral intake and is refusing t o perform ADLs. The patient denies any drug or alcohol abuse. She is difficult to obtain a history from as she mumbles and covers her face up with a sheet. The patient's affect is very flat and she answ ers in only 2-3 word sentences. Her response time is also very slow. Her only complaint is chest pain which she is unsure of how long this has been present. According to the documentation from [facility] the p atient also has a history of pulmonary embolism. [facility] he has been decreasing the patient's Lasix of 40 mg to 10 mg per day due to decreased oral intake. The patient is oriented only to self. All other systems reviewed and are negative except as noted. Nursing triage notes were reviewed by me and I agree. CONSTITUTIONAL: Well-appearing and well-nourished. EYES: PERRL. Sclera and conjunctiva without drainage or erythema HENT: External ears normal, external nose normal. Mouth and throat clear. Neck supple non-tender. Head atraumatic. RESPIRATORY: Normal chest excursion with respiration. Clear to auscultation. CARDIOVASCULAR: Regular rhythm. No murmurs. No cyanosis. No peripheral edema. GASTROINTESTINAL: Abdomen soft, non-distended, non- tender, no guarding or rigidity. Bowel sounds normal. NEUROLOGICAL: Awake and oriented to person. No extremity weakness or sensory deficit. PSYCHOLOGICAL: The patient's mood is flat. Grooming and personal hygiene are appropriate. INTEGUMENTARY: Warm and dry. No rash noted. MUSCULOSKELETAL: There are no deformities noted. I saw and evaluated the patient. I have reviewed the chief complaint, triage note, past medical/surgical, family, and social history. The patient's presenting pulse oximetry was 95% on room air. This was interpreted as normal. My collaborating physician is Dr. Jessica Newton The patient presents as described above as a transfer from [facility] for dehydration. According to documentation sent from [facility] the patient has been admitted since 04/01/18 for depression. She has been refusing to eat or drink for 4 days. The patient does not appear especially dehydrated on exam. She is difficult to obtain a history from as her affect is very flat and answers in only 2-3 word sentenc es. She is oriented to self only. She also complains of hearing voices and being suicidal currently. The patient is not able to perform a review of systems. Her only complaint is midsternal chest pain a nd she is on able to provide further information concerning this. The patient doesn't have a history of HTN, CHF, and PE. I'm unsure if she has been compliant with taking her medications, the patient's vital signs upon arrival are all within normal limits. The patient's respirations are nonlabored. She has no peripheral edema. Lungs sounds are clear throughout. I will obtain a d-dimer as well as labs to assess for dehydration. The patient's abdomen is benign. EKG demonstrates normal sinus rhythm with no signs of acute ischemia. Chest x-ray shows no acute findings. Renal function is intact with creatinine of 1.1 and there is no leukocytosis. No major electrolyte abnormalities noted. Urinalysis does show signs of infection including 250 leukocyte Estrace, 388 WBCs, and 68 rbc's. There is a large amount of bacteria in the urine. No elevation in d-dim er or troponin. The patient will be treated with a ten-day course of Keflex and this may be attributing to the patient's decrease in oral intake. This time the patient remains nontoxic and afebrile. She will be discharged back to [facility] pending transportation. Impression 1. Urinary tract infection 2. Decreased oral intake 3. Depression Physical Exam Vitals and Measurements T: 97.5 F HR: 73 RR: 16 BP: 107/72 SpO2: 95% HT: 152.40 cm WT: 68.160 kg BMI: 29.3 Assessment/Plan Ordered: BNP (B -Type Natriuretic Peptide) Cardiac Monitoring D-Dimer Quantitative EKG Troponin I Urinalysis with Reflex Microscopic XR Chest 2 Views Problem List/Past Medical History Ongoing No qualifying data Historical No qualifying data Medications Home No active home medications ED Administered Medications Prescriptions No active Prescriptions Allergies No Known Medication Allergies Social History Tobacco No qualifying data available. Lab Results Creatinine 1.10 mg/dL 04/15/2018 15:31 EDT WBC Count 9.6 thou/mcL 04/15/2018 15:31 EDT Leukocyte Esterase Urine 250/UL 04/15/2018 16:30 EDT (Abnormal) Nitrite Urine NEGATIVE 04/15/2018 16:30 EDT WBC Urine 388 /hpf 04/15/2018 16:30 EDT (High) RBC Urine 68 /hpf 04/15/2018 16:30 EDT (High) Bacteria Urine MANY 04/15/2018 16:30 EDT (Abnormal) Mucous Urine MANY 04/15/2018 16:30 EDT (Abnormal) WBC Clumps Urine OCCASSNL 04/15/2018 16:30 EDT (Abnormal) Diagnostic Results HISTORY: Chest Pain COMPARISON: NONE FINDINGS/IMPRESSION: Cardiomediastinal silhouette unremarkable. No pneumothorax or pleural effusion. No focal consolidation or pulmonary edema. [1] [1] XR Chest 2 Views; Jamie Hollins MD 04/15/2018 15:49 EDT CBC WITH DIFFERENTIAL Collected: 04/15/2018 Status: F Source: [facility] 3:31 PM HEALTH SYSTEM REPOSITORY TYPE CODE TESTS RESULT OUT OF REFERENCE UNITS RANGE LAB 704-7(LOIN 0.00-0.20 thou/mcL C) Normal Basophil 0.00 Absolute LAB 44152-5(LO 0.0-2.0 % INC) Normal Basophil 0.2 LAB 718-7(LOIN 12.0-16.0 gm/dL C) Normal Hemoglobin 15.6 LAB 711-2(LOIN 0.00-0.70 thou/mcL C) Normal Eosinophil 0.20 Absolute LAB 76368-3(LO 6.2-12.1 FL INC) MPV Normal 9.3 LAB 75049-7(LO 0.0-7.0 % INC) Normal Eosinophil 1.9 LAB 14606-8(LO 3.80-5.10 million/mcL INC) Red Normal Blood Cell 5.03 Count LAB 11646-1(LO 27.0-34.0 Picograms INC) MCH Normal 31.0 LAB 66656-9(LO 142-424 thou/mcL INC) Normal Platelet Count 213 LAB 23383-4(LO 0.0-12.0 % INC) Normal Monocyte 7.5 LAB 742-7(LOIN 0.00-0.90 thou/mcL C) Normal Monocyte 0.70 Absolute LAB 48173-4(LO 4.6-10.2 thou/mcL INC) WBC Normal Count 9.6 LAB 98069-1(LO 80.0-97.0 FL INC) MCV Normal 89.7 LAB 16314-3(LO 11.0-14.8 % INC) RDW Normal 12.2 LAB 80875-4(LO 22.0-44.0 % INC) Low Lymphocyte 20.6 LAB 731-0(LOIN 1.00-4.80 thou/mcL C) Normal Lymphocyte 2.00 Absolute LAB 67712-4(LO 35.0-45.0 % INC) High Hematocrit 45.1 LAB 81726-3(LO 40.0-70.0 % INC) Normal Neutrophil 69.8 LAB 34701-6(LO 32.0-36.0 gm/dL INC) MCHC Normal 34.6 LAB 751-8(LOIN 1.80-7.70 thou/mcL C) Normal Neutrophil 6.70 Absolute Performed By: #### 27617-4 #### [facility] [address], [place] GFRAA Collected: 04/15/2018 Status: F Source: [facility] 3:31 PM HEALTH SYSTEM REPOSITORY TYPE CODE TESTS RESULT OUT OF RANGE REFERENCE UNITS LAB 51767-9(LO mL/min INC) GFR Normal Estimated >60 Result Comment: The MDRD equation has not been validated for those over 70 years, women, patients with serious co-morbid conditions, or with extremes of body size, muscle mass of nutritional status. Performed By: #### 64532-8, 99026-2p0, 29903-4, 10891-1 #### [facility] [address], [place] GFRBB Collected: 04/15/2018 Status: F Source: [facility] 3:31 PM HEALTH SYSTEM REPOSITORY TYPE CODE TESTS RESULT OUT OF RANGE REFERENCE UNITS LAB 30417-2(LO mL/min INC) GFR Normal Estimated Non 53 Performed By: #### 20845-1, 57561-9z2, 15814-7, 89423-7 #### [facility] [address], [place] TROPONIN I Collected: 04/15/2018 Status: F Source: [facility] 3:31 PM HEALTH SYSTEM REPOSITORY TYPE CODE TESTS RESULT OUT OF RANGE REFERENCE UNITS LAB 48637-4(LO <0.06 ng/mL INC) Normal Troponin I <0.03 Performed By: #### 36908-1, 99157-8y7, 37013-3, 26804-3 #### [facility] [address], [place] BASIC METABOLIC PANEL Collected: 04/15/2018 Status: F Source: [facility] 3:31 PM HEALTH SYSTEM REPOSITORY TYPE CODE TESTS RESULT OUT OF RANGE REFERENCE UNITS LAB 2160-0(BOLA 0.60-1.30 mg/dL NC) Normal Creatinine 1.10 LAB 2823-3(BOLA 3.6-5.1 mMol/L NC) Normal Potassium Level 3.6 LAB 2075-0(BOLA 98-107 mMol/L NC) Chloride Normal Level 102 LAB 38231-1(LO 6.0-18.0 mMol/L INC) Anion Normal Gap 12.0 LAB 79023-0(LO 70-110 mg/dL INC) Glucose Normal Level 83 LAB 2951-2(BOLA 136-145 mMol/L NC) Sodium Normal Level 141 LAB 2028-9(BOLA 22-32 mMol/L NC) Carbon Normal Dioxide Level 27 LAB 39674-7(LO 8.9-10.3 mg/dL INC) Calcium Normal Total 9.7 LAB 04750-3(LO 8-20 mg/dL INC) High BUN 23 Performed By: #### 13435-3, 50116-5h1, 93013-1, 69776-6 #### [address] D-DIMER QUANTITATIVE Collected: 04/15/2018 Status: F Source: [facility] 3:31 PM HEALTH SYSTEM REPOSITORY TYPE CODE TESTS RESULT OUT OF RANGE REFERENCE UNITS LAB 7799-0(LOIN 150-230 ng/mL C) Normal D Dimer <150 Qn Result Comment: NORMAL REFERENCE RANGE 150-230 NG/ML CUT OFF 230 NG/ML At this cut off level the negative predictive value for this test is 96-100% for venous thromboembolism(VTE) in patients with a low pre-test probability of deep vein thrombosis(DVT)/pulmonary embolism(PE). Clinical correlation is essential. When utilizing this test to rule out DVT or PE, this test is best used in the Emergency Department setting. These units correspond to ng/mL of D-DU or D-Dimer Units. Performed By: #### 58664-7 #### [address] BNP (B -TYPE Collected: 04/15/2018 Status: F Source: [facility] NATRIURETIC PEPTIDE) 3:31 PM HEALTH SYSTEM REPOSITORY TYPE CODE TESTS RESULT OUT OF RANGE REFERENCE UNITS LAB 40665-6(LO 0-100 Picogram/m INC) l B Type Normal Natriuretic 9 Peptide Result Comment: Less than 100 CHF is unlikely Greater than 100 Possible left ventricular And less than 400 dysfunction-unlikely acute decompensation Greater than 400 Suspicious for decompensated heart failure Performed By: #### 41431-6 #### [address] GLUCOSE POCT Collected: 04/15/2018 Status: F Source: [facility] (UPLOADED) 3:04 PM HEALTH SYSTEM REPOSITORY TYPE CODE TESTS RESULT OUT OF RANGE REFERENCE UNITS LAB 2340-8(LOIN 70-110 mg/dL C) Normal Glucose 83 POCT-LAB Result Comment: Treatment ranges and critical values established by Patient Care Services. All follow-up actions were taken by Patient Care Services. Performed By: #### 2430-8 #### [facility] POINT OF CARE ECHOCARDIOGRAM COMPLETE W Observed: 04/01/2018 Status: F Source: [facility] 11:09 AM TWO REPOSITORY Transthoracic Echocardiogram Patient: GIA GAMBOA [facility] Rec#: [id number] (Age): 1970(48y) Height: 162(cm)/63(in) Study Date: 04/01/2018 Weight: 99(kg)/218(lbs) Room#: 64 BSA: 2.02 Type: Inpatient Loc: [facility] Sex: F Reading: Humberto Thapa MD Referring: CLAUDIA MARES SIMONA [employer] Tender: Saskia Peng ABRIL History: Hypotension. Tobacco abuse. Diagnosis: ICD-10-PCS Cardiomyopathy, unspecified (I42.9) Cardiomyopathies, other (425.4) [facility] C8923 Echo Full w/ contrast. Study Quality The study quality is technically difficult. Summary: Patient identity verified and ID band on (pause and confirm). Current HP present on patient chart. Procedure explained and patient verified understanding. Definity explained to patient. Patient verbalizes understanding and agrees to proceed. Definity 1.3ml/8.7ml normal sterile saline 2 ml total given IV over 30-60 seconds. Study was technically limited. Definity echo-contrast was utilized to enhance endocardial definition. The study was technically limited. Conclusions: Study was technically limited. Definity echo-contrast was utilized to enhance endocardial definition. The estimated ejection fraction is 55-60%. The diastolic filling pattern is consistent with impaired relaxation and normal LA pressure (Mild diastolic dysfunction). The basal anteroseptal wall segment appears mildly hypokinetic (only appreciated in one view) Findings Reason For Study: Cardiomyopathy. Left Ventricle: The left ventricular chamber size and thickness is normal. Global left ventricular wall motion and contractility are within normal limits. The estimated ejection fraction is 55-60%. The diastolic filling pattern is consistent with impaired relaxation and normal LA pressure (Mild diastolic dysfunction). The basal anteroseptal wall segment is hypokinetic. Left Atrium: The left atrial chamber size is normal. Right Ventricle: The right ventricular cavity size is normal. The right ventricular global systolic function is normal. Right Atrium: The right atrial cavity size is normal. Aortic Valve: The aortic valve is not well visualized. The aortic valve is trileaflet. There is no hemodynamically significant stenosis. There is no evidence of aortic regurgitation. Mitral Valve: The mitral valve leaflets appear normal. There is a trace of mitral regurgitation. Tricuspid Valve: The tricuspid valve leaflets are normal. There is a trace tricuspid regurgitation. No pulmonary hypertension is noted. Pulmonic Valve: The pulmonic valve appears normal. There is no evidence of pulmonic regurgitation. Pericardium: The pericardium appears normal. Aorta: There is no dilatation of the aortic root. Venous: The inferior vena cava appears normal in size. There is a greater than 50% respiratory change in the inferior vena cava dimension. The flow pattern of the pulmonary veins appear normal. HR 78 BP 116/80 Measurements Chambers MM Name Value Normal Range AV cusp separation (MM) 1.9 cm none Chambers 2D Name Value Normal Range IVSd (2D) 0.9 cm none LVPWd (2D) 0.84 cm none IVS:LVPW ratio (2D) 1.07 ratio none LVIDd (2D) 4.52 cm none LVIDs (2D) 3.42 cm none LV FS (Teichholz) (2D) 24.3 % none LV FS (cube) (2D) 24.3 % none EF Teichholz (2D) 48.5 % none Ao root diameter (2D) 3 cm none LA dimension (AP) 2D 3 cm none LA:Ao ratio (2D) 1 ratio none Volumes/Mass Name Value Normal Range LA ESV SP 4CH (MOD) 31 ml none LA ESV SP 2CH (MOD) 46 ml none LA ESV BP (MOD) 39 ml none LV EDV SP 4CH (MOD) 86 ml none LV ESV SP 4CH (MOD) 25 ml none EF SP 4CH (MOD) 71 % none Diastolic/Systolic Function Name Value Normal Range MV E-wave Vmax 0.41 m/sec none MV deceleration time 377 msec none MV A-wave Vmax 0.67 m/sec none MV E:A ratio 0.6 ratio (1.1 - 1.5) LV septal e' Vmax 0.05 m/sec none LV lateral e' Vmax 0.03 m/sec none LV E:e' septal ratio 7.5 ratio none LV E:e' lateral ratio 13.4 ratio none Aortic Valve Name Value Normal Range AV Vmax 1.3 m/sec (1 - 1.7) AV peak gradient 7 mmHg (Less Than 36) LVOT diameter 2.1 cm (1.7 - 2.5) LVOT Vmax 0.68 m/sec (0.7 - 1.1) LVOT peak gradient 2 mmHg none JUAN MIGUEL (continuity Vmax) 1.81 cm2 none Pulmonic Valve/Qp:Qs Name Value Normal Range PV Vmax 0.75 m/sec (0.6 - 0.9) PV peak gradient 2 mmHg none VT end-diastolic Vmax 1.09 m/sec none PV acceleration time 56 msec none Electronically Signed at 04/01/2018 11:09:12 by: Humberto Thapa MD XR CHEST AP/PA AND Observed: 03/28/2018 Status: F Source: [facility] 7:45 PM REPOSITORY Order Comment: Reason for exam?:chest pain Injury/Trauma or Illness?:Illness/Other How long have you had these symptoms (acute/chronic)?:Acute History of cancer?:n/a Surgeries, chemotherapy, or radiation?:n/a Type of Exam?:Initial Additional signs and symptoms?:Sent in voluntary from [facility] for med clearance. Staff says they want hypotension addressed. Pt 93/70 on arrival. Hx of SI. No pink slip. Pt minimally interactive. Just state s she doesnt feel good. Difficulty fully completing triage assessment EXAMINATION: TWO VIEWS OF THE CHEST 03/28/2018 8:00 pm COMPARISON: None. HISTORY: ORDERING SYSTEM PROVIDED HISTORY: cp; TECHNOLOGIST PROVIDED HISTORY: Reason for Exam: chest pain Illness/Other Acuity: Acute Type of Encounter: Initial Additional signs and symptoms: Sent in voluntary from [facility] for med clearance. Staff says they want hypotension addressed. Pt 93/70 on arrival. Hx of SI. No pink slip. Pt minimally interactive. Just states she doesnt feel good. Difficulty fully completing triage assessment FINDINGS: The cardiomediastinal and hilar silhouettes appear unremarkable. The lungs are well expanded and clear. No pleural effusion or pneumothorax. No acute osseous abnormality. IMPRESSION: No acute cardiopulmonary disease. Workstation ID: [id number] Dictated by: JAY ROSALES on WedMar 28, 2018 8:22:05 PM EDT Transcribed by: JAY ROSALES on WedMar 28, 2018 8:22:05 PM EDT Finalized by: JAY ROSALES on WedMar 28, 2018 8:22:[address] HEAD OR BRAIN Observed: 03/28/2018 Status: F Source: [facility] WITHOUT CONTRAST 7:45 PM TWO REPOSITORY Order Comment: Reason for exam?:foggy Injury/Trauma or Illness?:Illness/Other How long have you had these symptoms (acute/chronic)?:Acute Type of Exam?:Initial Additional signs and symptoms?:Sent in voluntary from [facility] for med clearance. Staff says they want hypotension addressed. Pt 93/70 on arrival. Hx of SI. No pink slip. Pt minimally interactive. Just states she doesnt feel good. EXAMINATION: CT OF THE HEAD WITHOUT CONTRAST 03/28/2018 TECHNIQUE: CT of the head was performed without the administration of intravenous contrast. Dose modulation, iterative reconstruction, and/or weight based adjustment of the mA/kV was utilized to reduce the radiation dose to as low as reasonably achievable. COMPARISON: None. HISTORY: ORDERING SYSTEM PROVIDED HISTORY: foggy; TECHNOLOGIST PROVIDED HISTORY: Reason for Exam: foggy Illness/Other Acuity: Acute Type of Encounter: Initial Additional signs and symptoms: Sent in voluntary from [facility] for med clearance. Staff says they want hypotension addressed. Pt 93/70 on arrival. Hx of SI. No pink slip. Pt minimally interactive. Just states she doesnt feel good. FINDINGS: BRAIN/VENTRICLES: No acute intracranial hemorrhage or extraaxial fluid collection. [place]aco-white differentiation is maintained. No evidence of mass, mass effect or midline shift. No evidence of hydrocephalus. ORBITS: The visualized portion of the orbits demonstrate no acute abnormality. SINUSES: The visualized paranasal sinuses and mastoid air cells demonstrate no acute abnormality. SOFT TISSUES/SKULL: No acute abnormality of the visualized skull or soft tissues. IMPRESSION: No acute intracranial abnormality. Workstation ID: [id number] Dictated by: SUNSHINE KEVIN on WedMar 28, 2018 9:18:44 PM EDT Transcribed by: SUNSHINE KEVIN on WedMar 28, 2018 9:18:44 PM EDT Finalized by: SUNSHINE KEVIN on WedMar 28, 2018 9:18:[address] ABDOMEN PELVIS Observed: 03/28/2018 Status: F Source: [facility] WITH IV CONTRAST ONLY 7:45 PM TWO REPOSITORY Order Comment: Reason for exam?:abd pain Injury/Trauma or Illness?:Illness/Other How long have you had these symptoms (acute/chronic)?:Acute Type of Exam?:Initial Additional signs and symptoms?:Sent in voluntary from [facility] for med clearance. Staff says they want hypotension addressed. Pt 93/70 on arrival. Hx of SI. No pink slip. Pt minimally interactive. Just states she doesnt feel good. EXAMINATION: CT OF THE ABDOMEN AND PELVIS WITH CONTRAST 03/28/2018 TECHNIQUE: CT of the abdomen and pelvis was performed with the administration of intravenous contrast. Multiplanar reformatted images are provided for review. Dose modulation, iterative reconstruction, and/or weight based adjustment of the mA/kV was utilized to reduce the radiation dose to as low as reasonably achievable. COMPARISON: None. HISTORY: ORDERING SYSTEM PROVIDED HISTORY: abd pain; TECHNOLOGIST PROVIDED HISTORY: Reason for Exam: abd pain Illness/Other Acuity: Acute Type of Encounter: Initial Additional signs and symptoms: Sent in voluntary from [facility] for med clearance. Staff says they want hypotension addressed. Pt 93/70 on arrival. Hx of SI. No pink slip. Pt minimally interactive. Just states she doesnt feel good. FINDINGS: Lower Chest: The heart size is within normal limits. There is a small hiatal hernia. Organs: No focal hepatic abnormality is identified. The gallbladder has been removed. Spleen is unremarkable. No focal pancreatic abnormality is appreciated. The adrenal glands are within normal limits. Kidneys are not obstructed. GI/Bowel: The bowel is not obstructed. The appendix is within normal limits. The descending colon is diffusely featureless. There is no significant adjacent inflammatory change. There is no significant bowel wall thickening. Pelvis: There is no free fluid in the pelvis. The urinary bladder is unremarkable. The uterus has been removed. Calcified phleboliths are noted in the pelvis. Peritoneum/Retroperitoneum: The abdominal aorta is of normal caliber. There is no free intraperitoneal air. There is a small fat-containing periumbilical hernia. Bones/Soft Tissues: There is degenerative change at the lumbosacral junction. An acute osseous abnormality is not identified. IMPRESSION: 1. The descending colon has a featureless appearance, consider infectious or inflammatory colitis. No significant wall thickening or inflammatory change. 2. Normal appendix. [facility] Workstation ID: [id number] Dictated by: STONE PANDEY on WedMar 28, 2018 9:24:09 PM EDT Transcribed by: SIMA BAL on WedMar 28, 2018 9:48:34 PM EDT Finalized by: STONE PANDEY on WedMar 29, 2018 8:27:11 AM EDT DISCHARGE SUMMARY Observed: 03/18/2018 Status: F Source: [place] 12:33 PM [facility] REPOSITORY [facility] Medical Records Department [address] [place] [address] Discharge Summary 03/18/18 1231 MR#: [id number] Acct: [id number] Name: SIMI NIELSEN Rep #: [id number] : 1970 48 From: Rios Dior DO PCP: Paty Catalan DO Status: DIS ALPHONSE Y Location: [place] [address]-1 Discharge Date and Diagnosis Date of Admission: 03/15/18 Date of Discharge: 03/18/18 - Secondary Discharge Diagnosis Chronic Problems (Last Reviewed 03/15/18 @ 22:38 by Quinten Trejo MD) BALDEMAR (obstructive sleep apnea) (Chronic) CHF (congestive heart failure) (Chronic) HTN (hypertension) (Chronic) DVT (deep venous thrombosis) (Chronic) Hospital Course and Treatment Imaging Results: Clinical Impression(s) from Imaging Studies Brain CT 03/15/18 19:14 IMPRESSION: No acute intracranial abnormality. Electronically Signed: Yash Hong, at 20:46 EDT Tel , Service support , Chest X-Ray 03/15/18 19:14 IMPRESSION: Mild right basilar interstitial prominence. Electronically Signed: Stuart Wagner DO at 19:50 EDT Tel [phone], Service support , Consultations 03/17/18 13:26 Consult: Mental Health/Crisis Routine Reason for consult?: hallucinations Date Notified:: 03/17/18 Time notified:: 13:26 Operations: None Procedures: None Summary of Care Provided: The patient is a 48 year old F presents with confusion. [place] related with the patient's increase her Risperdal as well as concomitant starting of Cogentin. Those medications were held and patient's mental status did improve. Patient was monitored and then was looked to be discharged on the , patient was complaining of voices in her head that were wanting to kill her. Crisis was involved at that point time patient was patient. Decision was to take the patient to an inpatient psychiatric unit for further management. Patient was discharged to an inpatient psychiatric unit this morning before a chance to see her. 1. suspected toxic encephalopathy * improved overall * recently risderdal was increased from 4 to 6mg QHS and benztropine. * Will continue to hold those medications for now. * DANA Gatica's nurse, who reviewed the patient's notes with me, and Gavi's note specified to cut risperdal back to 4mg. * I will also hold the benztropine, as i feel the patient's symptoms are not just due to the increase in risperdal. 2. urinary retention * will monitor * did have up 750cc last night. * hold off on catheterization, unless pt cannot urinate. 3. Lactic acidosis * resolved * unclear etiology (unclear indication for checking it anyway) * no additional work up at this time. 4. h/o VTE * continue Eliquis. 5. Schizophrenia * hearing voices * may be her baseline * will have Crisis to eval. * Disposition will be pending Crisis' evaluation. 6. Suicidal ideation: * to inpatient psych unit for further management.[] Discharge Diet: 1800 Calorie Control Diet Discharge Activity: Return to Normal Activity Home Medications: Medications to take at Discharge Carvedilol [Coreg (Beta Gabriela)] 3.125 mg PO BID 10/29/14 Citalopram [Celexa] 20 mg PO QHS 08/25/15 Lisinopril [Zestril] 2.5 mg PO DAILY 08/25/15 Fluticasone 0.05% [Flonase Nasal [place]] 1 spray NASAL DAILY PRN 03/09/17 Furosemide 40 mg PO DAILY 03/09/17 Risperidone [Risperdal] 6 mg PO QHS 03/09/17 Apixaban [Eliquis] 5 mg PO BID #66 tab 03/10/17 liraglutide 0.6 mg/0.1 mL (18 mg/3 mL) subcutaneous pen injector 0.6 mg SC QDAY PRN 01/03/18 metformin 1,000 mg tablet 1,000 mg PO QDAY tab 01/03/18 Benztropine [Cogentin] 0.5 mg PO BID 03/15/18 Primary Care Physician: Paty Catalan DO [Primary Care Provider] - Within 2 Weeks Please Follow Up With: Arianna Gatica NP-C When: 1-2 weeks Disposition: Psych Hospital or Unit Patient Condition:: Stable Medical Necessity - Tobacco Use Smoking Status: Never smoker Meaningful Use Info Meaningful Use Diagnoses (Choose all that apply): None applicable 03/18/18 1233 <Electronically signed by Rios Dior DO> Date Rios Dior DO Cosigner Signature (if applicable): Date CC: Rios Dior DO; Paty Catalan DO Signed DISCHARGE INSTRUCTION Observed: 03/18/2018 Status: F Source: [place] 12:31 PM [facility] REPOSITORY [facility] Medical Records Department [address] [place] [address] Instructions for Home/Discharge Instructions 03/18/18 1229 MR#: [id number] Acct: [id number] Name: SIMI NIELSEN Rep #: [id number] : 1970 48 From: Rios Dior DO PCP: Paty Catalan DO Status: DIS ALPHONSE You will use the following diet at home:: Calorie/Carbohydrate Controlled (specify 1200, 1400, etc) - 1800 kcal/day Your food should be the consistency of: Regular Your liquids should be the consistency of: Regular/Thin Discharge Activity: Return to Normal Activity Allergies/Adverse Reactions: Allergies No Known Allergies Allergy (Verified 02/27/18 12:50) Medications to take at Discharge Carvedilol [Coreg (Beta Gabriela)] 3.125 mg PO BID 10/29/14 Citalopram [Celexa] 20 mg PO QHS 08/25/15 Lisinopril [Zestril] 2.5 mg PO DAILY 08/25/15 Fluticasone 0.05% [Flonase Nasal [place]] 1 spray NASAL DAILY PRN 03/09/17 Furosemide 40 mg PO DAILY 03/09/17 Risperidone [Risperdal] 6 mg PO QHS 03/09/17 Apixaban [Eliquis] 5 mg PO BID #66 tab 03/10/17 liraglutide 0.6 mg/0.1 mL (18 mg/3 mL) subcutaneous pen injector 0.6 mg SC QDAY PRN 01/03/18 metformin 1,000 mg tablet 1,000 mg PO QDAY tab 01/03/18 Benztropine [Cogentin] 0.5 mg PO BID 03/15/18 Primary Care Physician: Paty Catalan DO [Primary Care Provider] - Within 2 Weeks Test Results: Test results from this visit will be discussed in further detail at your follow-up appointment, if applicable. Please Follow Up With: Arianna Gatica NP-C When: 1-2 weeks Proposed Discharge Date: 03/18/18 03/18/18 1231 <Electronically signed by Rios Jopperi DO> Date Rios Doir DO CC: Paty Catalan DO BEDSIDE GLUCOSE Collected: 03/18/2018 Status: F Source: [place] 6:33 AM [facility] REPOSITORY TYPE CODE TESTS RESULT OUT OF RANGE REFERENCE UNITS LAB L501.080 70-110 mg/dL Normal BEDSIDE GLU 100 Result Comment: MANAGEMENT OF PATIENT CARE PER NURSING PROTOCOL Performed By: #### L501.080 #### [facility] Point of Care [address] [place] [address] BEDSIDE GLUCOSE Collected: 03/17/2018 Status: F Source: [place] 9:12 PM [facility] REPOSITORY TYPE CODE TESTS RESULT OUT OF RANGE REFERENCE UNITS LAB L501.080 70-110 mg/dL Normal BEDSIDE GLU 93 Result Comment: MANAGEMENT OF PATIENT CARE PER NURSING PROTOCOL Performed By: #### L501.080 #### [facility] Point of Care [address] [place] [address] BEDSIDE GLUCOSE Collected: 03/17/2018 Status: F Source: [place] 5:00 PM [facility] REPOSITORY TYPE CODE TESTS RESULT OUT OF RANGE REFERENCE UNITS LAB L501.080 70-110 mg/dL Normal BEDSIDE GLU 90 Result Comment: MANAGEMENT OF PATIENT CARE PER NURSING PROTOCOL Performed By: #### L501.080 #### [facility] Point of Care [address] [place] [address] 12 LEAD ELECTROCARDIOGRAM Observed: 03/17/2018 Status: F Source: [place] 1:44 PM [facility] REPOSITORY [facility] Cardiovascular Services [address] [place] [address] 12 Lead EKG 03/15/18 1835 MR#: [id number] Acct: [id number] Name: SIMI NIELSEN Rep #: [id number] : 1970 48 From: Mark Underwood MD Attending Dr: Rios Dior DO Status: ADM [place]ON[place] Ordering Dr: Humberto Drake MD Date: 03/15/18 Location: PCU Sex: F C Admitted: 03/15/18 Test Reason : CONFUSION Blood Pressure : / mmHG Vent. Rate : 056 BPM Atrial Rate : 056 BPM P-R Int : 162 ms QRS Dur : 080 ms QT Int : 480 ms P-R-T Axes : 052 012 013 degrees QTc Int : 463 ms Sinus bradycardia Junctional ST depression, probably normal Borderline ECG Confirmed by MARK UNDERWOOD MD ([id number]), publication editor NAYANA SAWANT ([id number]) on 03/17/2018 1:43:52 PM Referred By: ANNE Confirmed By:MARK UNDERWOOD MD 03/17/18 1343 Date Mark Underwood MD CC: Rios Dior DO; Paty Catalan DO; Humberto Drake Signed BEDSIDE GLUCOSE Collected: 03/17/2018 Status: F Source: [place] 11:19 AM [facility] REPOSITORY TYPE CODE TESTS RESULT OUT OF RANGE REFERENCE UNITS LAB L501.080 70-110 mg/dL Normal BEDSIDE GLU 98 Result Comment: MANAGEMENT OF PATIENT CARE PER NURSING PROTOCOL Performed By: #### L501.080 #### [facility] Point of Care [address] [place], [place] [id number] BEDSIDE GLUCOSE Collected: 03/17/2018 Status: F Source: [place] 5:25 AM [facility] REPOSITORY TYPE CODE TESTS RESULT OUT OF RANGE REFERENCE UNITS LAB L501.080 70-110 mg/dL Normal BEDSIDE GLU 95 Result Comment: MANAGEMENT OF PATIENT CARE PER NURSING PROTOCOL Performed By: #### L501.080 #### [facility] Point of Care [address] [place] [address] BEDSIDE GLUCOSE Collected: 03/16/2018 Status: F Source: [place] 11:04 PM [facility] REPOSITORY TYPE CODE TESTS RESULT OUT OF RANGE REFERENCE UNITS LAB L501.080 70-110 mg/dL Normal BEDSIDE GLU 97 Result Comment: MANAGEMENT OF PATIENT CARE PER NURSING PROTOCOL Performed By: #### L501.080 #### [facility] Point of Care [address] [place] [address] BEDSIDE GLUCOSE Collected: 03/16/2018 Status: F Source: [place] 4:53 PM [facility] REPOSITORY TYPE CODE TESTS RESULT OUT OF REFERENCE UNITS RANGE LAB L501.080 70-110 mg/dL High BEDSIDE GLU 112 Result Comment: MANAGEMENT OF PATIENT CARE PER NURSING PROTOCOL Performed By: #### L501.080 #### [facility] Point of Care [address] [place] [address] BEDSIDE GLUCOSE Collected: 03/16/2018 Status: F Source: [place] 11:40 AM [facility] REPOSITORY TYPE CODE TESTS RESULT OUT OF RANGE REFERENCE UNITS LAB L501.080 70-110 mg/dL Normal BEDSIDE GLU 91 Result Comment: MANAGEMENT OF PATIENT CARE PER NURSING PROTOCOL Performed By: #### L501.080 #### [facility] Point of Care [address] [place] [address] BEDSIDE GLUCOSE Collected: 03/16/2018 Status: F Source: [place] 5:23 AM [facility] REPOSITORY TYPE CODE TESTS RESULT OUT OF RANGE REFERENCE UNITS LAB L501.080 70-110 mg/dL Normal BEDSIDE GLU 92 Result Comment: MANAGEMENT OF PATIENT CARE PER NURSING PROTOCOL Performed By: #### L501.080 #### [facility] Point of Care [address] [place] [address] BASIC METABOLIC Collected: 03/16/2018 Status: F Source: [place] PROFILE (BMP) 5:10 AM [facility] REPOSITORY TYPE CODE TESTS RESULT OUT OF RANGE REFERENCE UNITS LAB L501.0100 74-106 mg/dL Normal GLU 83 Result Comment: Please note revised GLUCOSE reference range effective 2017. LAB L501.1000 7-18 mg/dL Normal BUN 15 LAB L501.1100 0.55-1.02 mg/dL Normal CREAT,SERUM 0.59 Result Comment: The validity of the calculated GFR AND GFRAA in patients over 70 years has not been determined. Clinical correlation is essential. LAB L501.1110 >60 mL/min Normal EST GFR 115 Result Comment: Non- GFR Calc LAB L501.1115 >60 mL/min Normal EST GFR - AA 139 Result Comment: GFR Calc LAB L501.1255 ml/min Normal Estimated CRCL 98.51 LAB L501.1300 10-20 RATIO High BUN/CRE 25.5 LAB L501.2200 8.5-10 mg/dL Low .1 CA 7.8 LAB L501.5300 136-14 mmol/L Normal 5 NA 141 LAB L501.5600 3.5-5. mmol/L Normal 1 K 4.3 Result Comment: Moderate Hemolysis, Result may be falsely increased. LAB L501.5900 98-107 mmol/L High CL 109 LAB L501.6100 21.0-32.0 mmol/L Normal CO2 25.0 LAB L501.6200 5-15 Normal 7 GAP Performed By: #### L500.2500 #### [facility] [address] [facility] [place], [address] EMERGENCY DEPARTMENT Observed: 03/16/2018 Status: F Source: [place] SUMMARY 2:35 AM [facility] REPOSITORY [facility] Medical Records Department [address] [place] [address] Emergency Department Summary 03/16/18 0104 MR#: [id number] Acct: [id number] Name: SIMI NIELSEN Rep #: [id number] : 1970 48 From: Humberto Drake MD PCP: Paty Catalan DO Status: ADM [place]ONSE - ER Visit Summary Date of Service: 03/16/18 Chief Complaint: Change of mental status History of Present Illness: The patient is a 48 F presenting for evaluation secondary change of mental status. Patient was fine earlier today, her states that at approximately 1740 came home and noted her to have altered mental status. He reports that she seemed lethargic, having some decreased responsiveness, and not acting herself. Patient has a history diabetes, congestive heart failure secondary to nonischemic cardiomyopathy, schizophrenia DVT and PE. Patient is on Eliquis. About a week ago the patient had a change in her Risperdal which was increased from 4 mg to 6 mg, and she had an addition of benztropine to her medication regimen. She has not had any infectious signs or symptoms recently such as fever cough nausea vomiting diarrhea dysuria. She has been complaining of any headache or weakness. She has no prior history of stroke. Review of systems otherwise negative. Physical Examination: Vital signs are notable for mediocre blood pressure is 94/63 otherwise patient's afebrile. Obese female no acute distress. Head normocephalic. PRL, EOMI moist mucous membranes no JVD. Heart was bradycardic and regular no murmurs. Lungs sounds clear. Abdomen soft nontender. Back was nontender. Extremities nontender nonedematous. Skin: No rash. Patient was alert follows commands, seems sedate, she somewhat answers questions but does not appear to be a phasic either receptive or expressive. She gives normal multiple drum sander helper strength bilaterally moves both of her lower extremities without evidence of lateralizing deficits. Test Results: CT brain negative. Chest x-ray shows right basilar interstitial changes. EKG shows a sinus rhythm of [address] segments normal T waves. CBC chemistry INR urinalysis troponin unremarkable. Venous blood gas shows respiratory alkalosis. Lactic acid 2.4. Emergency Department Course and Treatment: Patient presented for evaluation secondary to altered mental status. Patient's altered mental status really seems more consistent with a encephalopathy rather than a strokes of stroke team was not activated. Broad workup was obtained as noted above and shows only the patient to have a respiratory alkalosis. Repeat evaluation shows the patient to still have continued lethargy. She does not have any evidence of cogwheel rigidity, fever, or any concerns for serotonin syndrome or NMS. The etiology of the patient's encephalopathy is still unknown at this point I believe she requires admission. I discussed this with the hospitalist. Disposition: Admission Impression: 1. Encephalopathy This note was generated with [employer] dictation software. It may contain incorrect words, spelling, and punctuation that were not noted in review of the chart prior to signing ED Disposition - Plan for ED Patient: Disposition: Acute Care Hospital [facility] Chief Complaint: Confusion What to do if you have Problems For any increased pain, shortness of breath, bleeding, nausea or vomiting, chest pain, or any unexpected problems, contact your Primary Care Provider. Call [facility] ([phone]) or report to the closest Emergency Room. Call 911 if necessary. 03/16/18 0235 <Electronically signed by Humberto rDake MD> Date Humberto Drkae MD Cosigner Signature (If Indicated): Date CC: Paty Catalan DO HISTORY AND PHYSICAL Observed: 03/16/2018 Status: F Source: [place] EXAM 12:49 AM [facility] REPOSITORY [facility] Medical Records Department [address] [place] [address] History and Physical 03/15/186 MR#: [id number] Acct: [id number] Name: SIMI NIELSEN Rep #: [id number] : 1970 48 From: Quinten Trejo MD PCP: Paty Catalan DO Status: ADM [place]SE Y Location: [place] [address] Problem List (1) Acute encephalopathy Status: Acute (2) CHF (congestive heart failure) Status: Chronic (3) HTN (hypertension) Status: Chronic (4) BALDEMAR (obstructive sleep apnea) Status: Chronic History of Present Illness Date of Admission: 03/15/18 Chief Complaint: Altered mental status 1 day The patient is a 48 year old F with a significant history of schizophrenia, diabetes mellitus, DVT/PE on home Eliquis; nonischemic cardiomyopathy who presents with a 1 day history of altered mental status. Her reported that when he () came home, the patient was curled up in the bed and she was not communicating. She was only mumbling. Her reports that recently patient's Risperdal was increased from 4 mg nightly to 6 mg nightly; and she had benztropine started at 0.5 mg twice daily. The last time patient took her increased dose of Risperdal was a day before admission. The last time patient took her benztropine was the morning of admission. [facility]phone number [phone]) and she sees Psychiatry Nurse Practitioner, Arianna Gatica. Past Medical History Past Medical History (Chronic Problems): Chronic Problems (Last Reviewed 03/15/18 @ 22:38 by Quinten Trejo MD) BALDEMAR (obstructive sleep apnea) (Chronic) CHF (congestive heart failure) (Chronic) HTN (hypertension) (Chronic) DVT (deep venous thrombosis) (Chronic) Medical History: Medical History (Last Reviewed 03/15/18 @ 22:38 by Quinten Trejo MD) BALDEMAR (obstructive sleep apnea) (Chronic) G47.33 CHF (congestive heart failure) (Chronic) I50.9 HTN (hypertension) (Chronic) I10 Nausea AND vomiting (Resolved) R11.2 DVT (deep venous thrombosis) (Chronic) I82.409 Palpitation (Inactive) R00.2 Dizzy (Inactive) R42 Bipolar 1 disorder F31.9 Cardiomyopathy I42.9 Eczema L30.9 IBS (irritable bowel syndrome) K58.9 PUD (peptic ulcer disease) K27.9 Pulmonary embolism I26.99 Schizophrenia F20.9 Allergies No Known Allergies Allergy (Verified 02/27/18 12:50) Home Medications: Ambulatory Orders Medication Instructions Recorded Surgical History: Surgical History (Last Reviewed 03/15/18 @ 22:38 by Quinten Trejo MD) History of esophagogastroduodenoscopy (EGD) Z98.890 S/P cholecystectomy Z90.49 S/P dilation and curettage Z98.890 S/P hysterectomy Z90.710 S/P nasal septoplasty Z98.890 Surgical History: cholecystectomy, hysterectomy, - - nasa surgery Lives: Spouse/ Significant Other Smoking Status: Never smoker - *Family History Maternal Family History: Family History (Last Reviewed 03/15/18 @ 22:38 by Quinten Trejo MD) Mother Breast cancer History Items: Heart Disease Paternal Family History: Family History (Last Reviewed 03/15/18 @ 22:38 by Quinten Trejo MD) Mother Breast cancer History Items: - - colon cancer Review of Systems Unable to obtain accurate/complete ROS d/t: Non talkative due to encephalopathy. VTE Information - Inpt Only VTE Present on Admission: Yes VTE Mechan Device Prophylaxis: None VTE Pharm Prophylaxis ordered?: No Reason prophylaxis not ordered:: Treatment Not Indicated - Patient is on treatment with Eliquis. Eliquis continued. Patient Problems: Active and Suspected Problems (Last Reviewed 03/15/18 @ 22:38 by Quinten Trejo MD) Acute encephalopathy (Acute) - Physical Exam General: Alert, - - Patient is not answering questions. HEENT: Atraumatic, PERRLA, EOMI, Normocephalic Neck: No JVD, Negative Carotid Bruits Lungs: Clear to auscultation, Normal air movement Cardiovascular: Regular rate, No murmurs Abdomen: Bowel Sounds Present, Soft, Non Tender Extremities: No edema, Capillary Refill Less than 3 Seconds Skin: No rashes, No breakdown Musculoskeletal: No Tenderness to Palpation of Joints or Extremities Neurological: - - Patient is not answering questions. Psych/Mental Status: - - Alert but not answering questions. Vital Signs Temp Pulse Resp BP Pulse Ox 97.9 F 58 L 14 101/65 95 03/15/18 18:23 03/15/18 21:37 03/15/18 21:37 03/15/18 21:37 03/15/18 21:37 Assessment/Plan All Active Problems (Last Reviewed 03/15/18 @ 22:38 by Quinten Trejo MD) Diarrhea (Resolved) Acute encephalopathy (Acute) Nausea AND vomiting (Resolved) The patient is a 48 year old F with a significant history of schizophrenia, diabetes mellitus, DVT/PE on home Eliquis; nonischemic cardiomyopathy who presents with a 1 day history of altered mental status in the setting of recently increased psychiatric medication. Acute encephalopathy At emergency departments VBG showed alkalosis and lactic acidosis. Most likely this does not explain her symptoms CBC and LFT was unremarkable. TSH and CPK has been ordered I had a conversation with Psychiatry Nurse Practitioner, Arianna Gatica and it is ok to hold patient's Risperdal and Benztropine. It appeared that patient may be having catatonia from her schizophrenia. Patient will be admitted tonight and observed. If no medical reason can explain her symptoms please contact counseling center (phone number [phone])to speak psychiatrist; and consider inpatient psychiatry admission. Lactic Acidosis This could be from metformin use or dehydration. Received IV bolus at emergency department. Continue maintenance IV hydration. Trend lactic acid. Hold Metformin Hypotension Systolic blood pressure was within 80s-90s on admission Received IV bolus at emergency department Continue normal saline maintenance infusion Home lisinopril, Lasix and Coreg held. Diabetes Mellitus On home liraglutide, and metformin Liraglutide and metformin held Correction scale insulin ordered. DVT/PE Eliquis continued DVT prophylaxis Not indicated. Continue Eliquis as above. Code Visit OBSMj [place]: [id number] Initial observation care L3 03/16/18 0048 <Electronically signed by Quinten Trejo MD> Date Quinten Trejo MD Cosigner Signature: Date (if applicable) CC: Quinten Trejo MD; Paty Catalan DO Signed LACTIC ACID Collected: 03/16/2018 Status: F Source: [place] 12:10 AM [facility] REPOSITORY TYPE CODE TESTS RESULT OUT OF RANGE REFERENCE UNITS LAB L503.6005 0.4-2.0 mmol/L Normal LACTIC ACID 1.0 Performed By: #### L503.6005 #### [facility] [address] [place], [address] URINE DRUG SCREEN Collected: 03/15/2018 Status: F Source: [place] (VISTA) 7:52 PM [facility] REPOSITORY Order Comment: Order Date: 03/15/18 TYPE CODE TESTS RESULT OUT OF RANGE REFERENCE UNITS LAB L505.0075 TO BE Normal CONFIRMED Result Comment: CONFIRMATORY TESTING FOR ALL POSITIVE URINE DRUG SCREEN RESULTS WILL ONLY BE SENT OUT UPON PHYSICIAN ORDER. VISTA Urine Drug Screen methods provide only preliminary analytical test results. A more specific alternate chemical method must be used in order to obtain a confirmed analytical result. Gas chromatography/mass spectrometery (GC/MS) is the preferred confirmatory method. Clinical consideration and professional judgement should be applied to any drug of abuse test result, particularly when preliminary positive results are used. URINE TCA TESTING MUST BE ORDERED SEPARATELY. USE TEST MNEMONIC: [facility] LAB L505.5005 VISTA UDS PH 8 Normal LAB L505.5015 <1000 ng/mL AMPHETAMINES Normal NEGATIVE LAB L505.5025 < 200 ng/mL BARBITIURATES Normal NEGATIVE LAB L505.5035 < 200 ng/mL BENZODIAZIPINE Normal NEGATIVE LAB L505.5045 < 300 ng/mL COCAINE Normal NEGATIVE LAB L505.5055 < 500 ng/mL ECSTACY Normal NEGATIVE LAB L505.5065 < 300 ng/mL METHADONE Normal NEGATIVE LAB L505.5075 < 300 ng/mL OPIATES Normal NEGATIVE LAB L505.5085 < 25 ng/mL PCP Normal NEGATIVE LAB L505.5095 < 50 ng/mL THC Normal NEGATIVE Performed By: #### L505.5000 #### [facility] [address] [place], [place], [address] URINALYSIS, COMPLETE Collected: 03/15/2018 Status: F Source: [place] 7:52 PM [facility] REPOSITORY Order Comment: Order Date: 03/15/18 How was Urine Obtained? CATHETER SPECIMEN TYPE CODE TESTS RESULT OUT OF RANGE REFERENCE UNITS LAB L400.3000 Yellow COLOR Normal Yellow LAB L400.3050 Clear Normal CLARITY Clear LAB L400.3200 Normal mg/dl Normal GLUCOSE, UR Normal LAB L400.3300 Negative mg/dL Normal BILIRUBIN URINE Negative LAB L400.3400 Negative mg/dl Normal KETONE UR Negative LAB L400.3465 1.002-1.030 Normal SP.GR. DIPSTX 1.010 LAB L400.3550 5.0 - 8.0 pH UR Normal 8.0 LAB L400.3600 Negative mg/dl High PROT 15 DIPSTX LAB L400.3700 Normal mg/dl Normal UROBILI Normal LAB L400.3750 Negative Normal NITRITE UR Negative LAB L400.3780 Negative /ul Normal OCCULT BLOOD-UR Negative LAB L400.3800 Negative /ul High LEUK 25 ESTERASE LAB L400.4050 0-5 /hpf WBC 0 Normal SEEN LAB L400.4100 0-5 /hpf 0 Normal RBC-UA SEEN LAB L400.4150 5-10 /hpf SQUAM Normal EPI 0-5 SEEN LAB L400.4300 None Seen /hpf 0 Normal BACTERIA SEEN LAB L400.4350 <or=2+ /hpf 0 Normal MUCUS, URINE SEEN Performed By: #### L400.0001 #### [facility] [address] [place], [place], [id number] VENOUS BLOOD GAS Collected: 03/15/2018 Status: F Source: [place] 7:51 PM [facility] REPOSITORY TYPE CODE TESTS RESULT OUT OF RANGE REFERENCE UNITS LAB L9000.9990 Normal BLD GAS TYPE LIZ LAB L9001.1000 Normal SITE OTHER LAB L9001.1050 O2 Normal Delivery Dev Room Air LAB L9001.1104 Normal Results To ED LAB L9001.1105 Normal Time Given 1944 LAB L9002.1110 7.32-7.42 High VBGpH - I-STAT 7.58 LAB L9002.1212 41-51 mmHg Low VBG pCO2 - 27.5 ISTA LAB L9002.1310 25-40 mmHg Normal VBG PO2 I-STAT 35 LAB L9002.2300 22-26 mmol/L Normal VBG HCO3 ISTAT 26 LAB L9002.2400 -1.0-3.5 mmol/L Normal VBG BE ISTAT 3 LAB L9002.2410 50-70 % High VBG SO2 ISTAT 78 LAB L9002.2415 23-33 mmol/L Normal VBG O2 CT 26 ISTAT Performed By: #### L9000.0810 #### [facility] Point of Care [address] [place] [address] CBC W/DIFF, AUTOMATED Collected: 03/15/2018 Status: F Source: [place] 7:39 PM [facility] REPOSITORY TYPE CODE TESTS RESULT OUT OF RANGE REFERENCE UNITS LAB L100.1000 4.4-11.0 K/mm3 Normal WBC 8.4 LAB L100.1200 4.2-5.4 M/mm3 Normal RBC 4.87 LAB L100.1300 12.0-15.0 g/dl Normal HGB 14.9 LAB L100.1400 37-47 % Normal HCT 44.6 LAB L100.1500 81-99 fL Normal MCV 91.6 LAB L100.1600 27.0-32.0 pg Normal MCH 30.6 LAB L100.1700 32-36 g/gl Normal MCHC 33.4 LAB L100.1810 11.6-14.6 % Normal RDW CV 12.8 LAB L100.1820 35.1-43.9 fl Normal RDW SD 41.6 LAB L100.1900 150-450 K/mm3 Normal PLT 229 LAB L100.2000 6.2-12.0 fl Normal MPV 11.0 LAB L100.2100 47-70 % Normal NEUT% 51.4 LAB L100.2200 19-41 % Normal LY% 37.8 LAB L100.2300 0-10 % Normal MONO% 7.8 LAB L100.2400 0-5 % Normal EO% 2.6 LAB L100.2500 0-1 % Normal BASO% 0.2 LAB L100.2550 0.0-0.9 % Normal IM GRAN % 0.200 Result Comment: IG% - Immature Granulocytes (promyelocytes, myelocytes and metamyelocytes) > 1% indicates that a LEFT SHIFT is Present. LAB L100.2620 2.0-7.7 X10 3/uL Normal Absolute Neut 4.3 LAB L100.2720 0.83-4.51 X10 3/ul Normal Absolute Lymph 3.19 Performed By: #### L100.0100 #### [facility] [address] [place], [address] COMPREHENSIVE METABOLIC Collected: 03/15/2018 Status: F Source: [facility] 7:39 PM [facility] REPOSITORY TYPE CODE TESTS RESULT OUT OF RANGE REFERENCE UNITS LAB L501.0100 74-106 mg/dL Normal GLU 84 Result Comment: Please note revised GLUCOSE reference range effective 2017. LAB L501.1000 7-18 mg/dL Normal BUN 16 LAB L501.1100 0.55-1.02 mg/dL Normal CREAT,SERUM 0.76 Result Comment: The validity of the calculated GFR AND GFRAA in patients over 70 years has not been determined. Clinical correlation is essential. LAB L501.1110 >60 mL/min Normal EST GFR 86 Result Comment: Non- GFR Calc LAB L501.1115 >60 mL/min Normal EST GFR - AA 104 Result Comment: GFR Calc LAB L501.1255 ml/min Normal Estimated CRCL 76.47 LAB L501.1300 10-20 RATIO High BUN/CRE 21.1 LAB L501.1500 6.4-8. g/dL Normal 2 T PROT 7.2 LAB L501.1800 3.2-5. g/dL Normal 0 ALB 3.3 LAB L501.1950 2.2-4. g/dL Normal 2 GLOB 3.9 LAB L501.2000 0.9-2. RATIO Low 4 A/G 0.8 LAB L501.2200 8.5-10 mg/dL Normal .1 CA 8.6 LAB L501.4100 15-37 U/L Normal AST 30 LAB L501.4305 45-117 U/L Normal ALK P 94 LAB L501.4405 13-56 U/L High ALT 61 LAB L501.4600 0.20-1 mg/dL Normal .00 T BILI 0.50 LAB L501.5300 136-14 mmol/L Normal 5 NA 140 LAB L501.5600 3.5-5. mmol/L Normal 1 K 3.5 LAB L501.5900 98-107 mmol/L Normal CL 104 LAB L501.6100 21.0-3 mmol/L Normal 2.0 CO2 24.0 LAB L501.6200 5-15 Normal GAP 12 Performed By: #### L500.4050, L501.4010 #### [facility] [address] [facility] [place], [place], [address] TROPONIN-I Collected: 03/15/2018 Status: F Source: [place] 7:39 PM [facility] REPOSITORY TYPE CODE TESTS RESULT OUT OF RANGE REFERENCE UNITS LAB L501.4010 <0.045 ng/mL Normal < 0.015 TROPONIN-I Result Comment: TROPONIN-I EXPECTED VALUES <0.045 Negative 0.045 - 0.590 Consistent with Cardiac Damage > OR = 0.600 Critical Value Not every elevated troponin is indicative of GA. These values should be used with clinical judgement in examining the patient's clinical picture for diagnosis. To establish a diagnosis of GA versus myocardial injury, there must be a demonstrated rise and/or fall in the troponin values, in addition to ischemic symptoms, EKG changes, new regional wall motion abnormality, and/or angiographical evidence. PLEASE NOTE: REFERENCE RANGES EDITED 17 Performed By: #### L500.4050, L501.4010 #### [facility] [address] [facility]. [place], [place], [address] LACTIC ACID Collected: 03/15/2018 Status: F Source: [place] 7:39 PM [facility] REPOSITORY Order Comment: Yes/No query for Sepsis Lactate Rule Y TYPE CODE TESTS RESULT OUT OF REFERENCE UNITS RANGE LAB L503.6005 0.4-2.0 mmol/L High LACTIC ACID 2.4 Result Comment: Critical Result(s) Called at: 20:33:03 03/15/2018 by: Lauryn VIVAR Performed By: #### L503.6005 #### [facility] [address] [facility] [place], [address] ALCOHOL, BLOOD Collected: 03/15/2018 Status: F Source: [facility] 7:39 PM [facility] REPOSITORY TYPE CODE TESTS RESULT OUT OF RANGE REFERENCE UNITS LAB L501.9100 mg/dL Normal SERUM < 3.0 ETOH Result Comment: The serum:whole blood ethanol ratio is approximately 1.14 and varies slightly with hematocrit. Medical Alcohol reference interval and critical value in non-tolerant individuals; 50 - 100 Impairment 100 Intoxication 100 - 250 Severe Poisoning 250 - 400 Deep/possible fatal coma Performed By: #### L501.9100 #### [facility] [place], [address] PROTHROMBIN TIME W/INR Collected: 03/15/2018 Status: F Source: [place] 7:39 PM [facility] REPOSITORY TYPE CODE TESTS RESULT OUT OF RANGE REFERENCE UNITS LAB L300.4150 11.7-14.9 SECONDS Normal PROTIME 13.9 LAB L300.4200 Normal INR 1.1 Performed By: #### L300.3900, L300.4310 #### [facility] [address], [address] PARTIAL THROMBOPLAST Collected: 03/15/2018 Status: F Source: [facility] TIME 7:39 PM [facility] REPOSITORY TYPE CODE TESTS RESULT OUT OF RANGE REFERENCE UNITS LAB L300.4310 24.1-36.2 Seconds Normal PTT 33.9 Performed By: #### L300.3900, L300.4310 #### [facility] [address], [address] CPK TOTAL, CREATINE Collected: 03/15/2018 Status: F Source: [place] 7:39 PM [facility] REPOSITORY TYPE CODE TESTS RESULT OUT OF RANGE REFERENCE UNITS LAB L501.3620 26-192 U/L Normal CPK TOTAL 59 Performed By: #### L501.3620, L501.9520 #### [facility] [address] [place], [address] THYROID STIM HORMONE Collected: 03/15/2018 Status: F Source: [place] ([facility]) 7:39 PM [facility] REPOSITORY TYPE CODE TESTS RESULT OUT OF RANGE REFERENCE UNITS LAB L501.9520 0.358-3.74 uIU/mL Normal TSH 1.63 Performed By: #### L501.3620, L501.9520 #### [facility] [address] [place], [address] CHEST 1 VIEW Observed: 03/15/2018 Status: F Source: [place] (PORTABLE) 7:16 PM [facility] REPOSITORY [facility] Imaging Services [address] [place] [address] Chest 1 View (Portable) MR#: [id number] Acct: [id number] Name: SIMI NIELSEN Rep #: [id number] : 1970 F 48 From: Stuart Wagner DO PCP: Paty Catalan DO Status: REG ER Study: Chest 1 View (Portable) Date of Exam: 03/15/18 Exam# [id number] Ordering Dr: Humberto Drake MD STUDY: X-RAY CHEST REASON FOR EXAM: Female, 48 years old. Confusion TECHNIQUE: Single frontal view COMPARISON: February 28, 2018 FINDINGS: The lungs are expanded. Mild right basilar interstitial prominence. Normal size heart. Normal mediastinum and payton. Normal visualized pulmonary arteries. Normal visualized aortic arch and descending thoracic aorta. Normal visualized thoracic spine. Normal visualized ribs, clavicles, and shoulders. There is no demonstrated abnormality of the visualized soft tissue structures of the upper abdomen. RAD/Chest 1 View (Portable) IMPRESSION: Mild right basilar interstitial prominence. Electronically Signed: Stuart Bernard at 19:50 EDT Tel [phone], Service support , CC: Paty Catalan DO; Humberto Drake Berry Picker Machine Operator: Signed BRAIN/HEAD WITHOUT Observed: 03/15/2018 Status: F Source: [place] CONTRAST 7:16 PM [facility] REPOSITORY [facility] Imaging Services [address] [place] [address] Brain/Head without Contrast MR#: [id number] Acct: [id number] Name: SIMI NIELSEN Rep #: [id number] : 1970 F 48 From: Yash Hong MD PCP: Paty Catalan DO Status: REG ER Study: Brain/Head without Contrast Date of Exam: 03/15/18 Exam# [id number] Ordering Dr: Humberto Drake MD STUDY: CT [...] There is no hydrocephalus. The visualized paranasal sinuses are clear. The mastoid air cells are well aerated. There is no skull fracture. CT/Brain/Head without Contrast IMPRESSION: No acute intracranial abnormality. Electronically Signed: Yash Hong, at 20:46 EDT Tel , Service support , CC: Paty Drake Berry Picker Machine Operator: Signed BEDSIDE GLUCOSE Collected: 03/15/2018 Status: F Source: [facility] 6:24 PM [facility] REPOSITORY TYPE CODE TESTS RESULT OUT OF RANGE REFERENCE UNITS LAB L501.080 70-110 mg/dL Normal BEDSIDE GLU 92 Result Comment: MANAGEMENT OF PATIENT CARE PER NURSING PROTOCOL Performed By: #### L501.080 #### [facility] Point of Care [address] [place] [address] 12 LEAD ELECTROCARDIOGRAM Observed: 03/01/2018 Status: F Source: [place] 1:11 PM [facility] REPOSITORY [facility] Cardiovascular Services [address] [place] [address] 12 Lead EKG 02/28/18 0259 MR#: [id number] Acct: [id number] Name: SIMI NIELSEN Rep #: [id number] : 1970 48 From: Frederick Butt MD [...] Normal sinus rhythm Nonspecific T wave abnormality Abnormal ECG Confirmed by FREDERICK BUTT ([id number]), publication editor NAYANA SAWANT ([id number]) on 03/01/2018 1:11:20 PM Referred By: JOYCE Confirmed By:FREDERICK BUTT 03/01/18 1311 Date Frederick Butt MD CC: Paty Catalan DO; Bin Maria Signed EMERGENCY DEPARTMENT Observed: 02/28/2018 Status: F Source: [facility] SUMMARY 5:59 AM [facility] REPOSITORY [facility] Medical Records Department [address] [place] [address] Emergency Department Summary 02/28/18 0446 MR#: [id number] Acct: [id number] Name: SIMI NIELSEN Rep #: [id number] : 1970 48 From: Bin Matias PCP: Paty Catalan DO Status: REG ER - ER Visit Summary Date of Service: 02/28/18 Chief Complaint: Mental health, confusion History of Present Illness: The patient is [...] homicidal or suicidal ideations. Significant other states patient has been seen multiple times in the ED here in the past couple weeks. States she was seen by crisis counselor. Records reviewed: Yesterday seen for abdominal contusion. 2 days ago was seen for visual hallucinations value by crisis, Arnold injection was given ED. Follow-up with crisis as an outpatient. February 23 was seen for missing dose medications auditory hallucinations. Patient was sent home. Physical Examination: General: Alert and oriented, answering questions, following commands. No acute distress HEENT: Normocephalic, atraumatic. Moist mucosa membranes Neck: supple, nontender. Cardiovascular: Regular rate and rhythm, no murmurs Respiratory: [...] presents reported confusion and at baseline. Blood pressure 80/62 on arrival did transiently dropped his systolic 60s. She responded to IV fluids. Workup initiated were any infectious findings urine and chest x-ray negative. Labs are stable. Toxin alcohol negative. EKG nonspecific changes. CT head was negative. Patient without suicidal homicidal ideations. Reevaluation alert and oriented 3. She is not suicidal homicidal. She has a crisis evaluation and follow-up on Wednesday. She is ambulated,'s slight weakness in the leg however no falls no dizziness. Spouse is present. Comfortable taking the patient home. Discussed continue oral hydration. There is no injuries from the fall. Follow-up as an outpatient. Signs and symptoms discussed to return if any worsening symptoms. Treatment Plan: [] Disposition: Discharge Impression: 1. Transient confusion 2. Transient hypotension This note was generated with Alverixation software. It may contain incorrect words, spelling, [...] problems, contact your Primary Care Provider. Call [facility] ([phone]) or report to the closest Emergency Room. Call 911 if necessary. 02/28/18 0559 <Electronically signed by Bin Matias> Date Bin Matias Cosigner Signature (If Indicated): Date CC: Paty Catalan DO BRAIN/HEAD WITHOUT Observed: 02/28/2018 Status: F Source: [place] [facility] 4:28 AM [facility] REPOSITORY [facility] Imaging Services [address] [place] [address] Brain/Head without Contrast MR#: [id number] Acct: [id number] Name: NIELSENSIMI Amanda Rep #: [id number] : 1970 F 48 From: Willy Kenyon MD PCP: Paty Catalan DO Status: REG ER Study: Brain/Head without Contrast Date of Exam: 02/28/18 Exam# [id number] Ordering Dr: Bin Maria DO STUDY: CT BRAIN WITHOUT CONTRAST REASON FOR EXAM: Female, 48 years old. Confusion RADIATION DOSAGE (If Supplied By Facility): CTDIvol = ( 44.99 ) mGy, DLP = ( 796.11 ) mGycm TECHNIQUE: Transaxial CT imaging of [...] acute ischemic infarction. Normal visualized paranasal sinuses. CT/Brain/Head without Contrast IMPRESSION: No CT evidence of acute infarct or hemorrhage. Comment: If there is clinical concern for hyperacute ischemia that is not yet apparent by CT, MRI should be considered if possible. Electronically Signed: Willy Kenyon MD at 5:07 EDT Tel , Service support , CC: Paty Catalan DO; Bin Maria Berry Picker Machine Operator: Signed BEDSIDE GLUCOSE Collected: 02/28/2018 Status: F Source: [place] 3:57 AM [facility] REPOSITORY TYPE CODE TESTS RESULT OUT OF REFERENCE UNITS RANGE LAB L501.080 70-110 mg/dL High BEDSIDE GLU 115 Result Comment: MANAGEMENT OF PATIENT CARE PER NURSING PROTOCOL Performed By: #### L501.080 #### [facility] Point of Care [address] [place], [place] [address] URINALYSIS, COMPLETE Collected: 02/28/2018 Status: F Source: [place] 3:15 AM [facility] REPOSITORY Order Comment: How was Urine Obtained? CATHETER SPECIMEN TYPE CODE TESTS RESULT OUT OF RANGE REFERENCE UNITS LAB L400.3000 Yellow COLOR Normal Yellow LAB L400.3050 Clear Normal CLARITY Clear LAB L400.3200 Normal mg/dl Normal GLUCOSE, UR Normal LAB L400.3300 Negative mg/dL Normal BILIRUBIN URINE Negative LAB L400.3400 Negative mg/dl High 15 KETONE UR LAB L400.3465 1.002-1.030 Normal SP.GR. DIPSTX 1.020 LAB L400.3550 5.0 - 8.0 pH UR Normal 5.0 LAB L400.3600 Negative mg/dl PROT Normal DIPSTX Negative LAB L400.3700 Normal mg/dl Normal UROBILI Normal LAB L400.3750 Negative Normal NITRITE UR Negative LAB L400.3780 Negative /ul Normal OCCULT BLOOD-UR Negative LAB L400.3800 Negative /ul LEUK Normal ESTERASE Negative LAB L400.4050 0-5 /hpf WBC Normal 0-5 SEEN LAB L400.4100 0-5 /hpf 0 Normal RBC-UA SEEN LAB L400.4150 5-10 /hpf SQUAM 0 Normal EPI SEEN LAB L400.4300 None Seen /hpf 0 Normal BACTERIA SEEN LAB L400.4350 <or=2+ /hpf 0 Normal MUCUS, URINE SEEN LAB L400.4400 0-5 /lpf Normal HYALINE CAST 5-10 SEEN Performed By: #### L400.0001 #### [facility] [address] [place], [address] URINE DRUG SCREEN Collected: 02/28/2018 Status: F Source: [place] (PAGE) 3:15 AM [facility] REPOSITORY TYPE CODE TESTS RESULT OUT OF RANGE REFERENCE UNITS LAB L505.0075 TO BE Normal CONFIRMED Result Comment: CONFIRMATORY TESTING FOR ALL POSITIVE URINE DRUG SCREEN RESULTS WILL ONLY BE SENT OUT UPON PHYSICIAN ORDER. VISTA Urine Drug Screen methods provide only preliminary analytical test results. A more specific alternate chemical method must be used in order to obtain a confirmed analytical result. Gas chromatography/mass spectrometery (GC/MS) is the preferred confirmatory method. Clinical consideration and professional judgement should be applied to any drug of abuse test result, particularly when preliminary positive results are used. URINE TCA TESTING MUST BE ORDERED SEPARATELY. USE TEST MNEMONIC: [facility] LAB L505.5005 VISTA UDS PH 6 Normal LAB L505.5015 <1000 ng/mL AMPHETAMINES Normal NEGATIVE LAB L505.5025 < 200 ng/mL BARBITIURATES Normal NEGATIVE LAB L505.5035 < 200 ng/mL BENZODIAZIPINE Normal NEGATIVE LAB L505.5045 < 300 ng/mL COCAINE Normal NEGATIVE LAB L505.5055 < 500 ng/mL ECSTACY Normal NEGATIVE LAB L505.5065 < 300 ng/mL METHADONE Normal NEGATIVE LAB L505.5075 < 300 ng/mL OPIATES Normal NEGATIVE LAB L505.5085 < 25 ng/mL PCP Normal NEGATIVE LAB L505.5095 < 50 ng/mL THC Normal NEGATIVE Performed By: #### L505.5000 #### [facility] [address] [place], [address] PROTHROMBIN TIME W/INR Collected: 02/28/2018 Status: F Source: [place] 3:00 AM [facility] REPOSITORY TYPE CODE TESTS RESULT OUT OF RANGE REFERENCE UNITS LAB L300.4150 11.7-14.9 SECONDS Normal PROTIME 14.3 LAB L300.4200 Normal INR 1.1 Performed By: #### L300.3900, L300.4310 #### [facility] [address] [place], [address] PARTIAL THROMBOPLAST Collected: 02/28/2018 Status: F Source: [place] TIME 3:00 AM [facility] REPOSITORY TYPE CODE TESTS RESULT OUT OF RANGE REFERENCE UNITS LAB L300.4310 24.1-36.2 Seconds Normal PTT 28.4 Performed By: #### L300.3900, L300.4310 #### [facility] [address] [place], [address] CHEST 1 VIEW Observed: 02/28/2018 Status: F Source: [place] (PORT[place]) 2:44 AM [facility] REPOSITORY [facility] Imaging Services [address] [place] [address] Chest 1 View (Portable) MR#: [id number] Acct: [id number] Name: SIMI NIELSEN Rep #: [id number] : 1970 F 48 From: Genaro Burnham MD PCP: Paty Catalan DO Status: REG ER Study: Chest 1 View (Portable) Date of Exam: 02/28/18 Exam# [id number] Ordering Dr: Bin Maria DO STUDY: X-RAY CHEST REASON FOR EXAM: Female, 48 years old. [...] , CC: Paty Catalan DO; Bin Maria Berry Picker Machine Operator: Signed COMPREHENSIVE METABOLIC Collected: 02/28/2018 Status: F Source: [place] 1:55 AM [facility] REPOSITORY TYPE CODE TESTS RESULT OUT OF RANGE REFERENCE UNITS LAB L501.0100 74-106 mg/dL High GLU 145 Result Comment: Fasting Glucose result greater than or equal to 126 mg/dL suggests DIABETES MELLITUS per A.D.A. criteria. Please note revised GLUCOSE reference range effective 2017. LAB L501.1000 7-18 mg/dL High BUN 20 LAB L501.1100 0.55-1.02 mg/dL Normal CREAT,SERUM 0.99 Result Comment: The validity of the calculated GFR AND GFRAA in patients over 70 years has not been determined. Clinical correlation is essential. LAB L501.1110 >60 mL/min Normal EST GFR 63 Result Comment: Non- GFR Calc LAB L501.1115 >60 mL/min Normal EST GFR - AA 77 Result Comment: GFR Calc LAB L501.1255 ml/min Normal Estimated CRCL 58.71 LAB L501.1300 10-20 RATIO High BUN/CRE 20.3 LAB L501.1500 6.4-8. g/dL Normal 2 T PROT 7.3 LAB L501.1800 3.2-5. g/dL Normal 0 ALB 3.6 LAB L501.1950 2.2-4. g/dL Normal 2 GLOB 3.7 LAB L501.2000 0.9-2. RATIO Normal 4 A/G 1.0 LAB L501.2200 8.5-10 mg/dL Normal .1 CA 8.8 LAB L501.4100 15-37 U/L Normal AST 18 LAB L501.4305 45-117 U/L Normal ALK P 93 LAB L501.4405 13-56 U/L Normal ALT 22 LAB L501.4600 0.20-1 mg/dL Normal .00 T BILI 1.00 LAB L501.5300 136-14 mmol/L Normal 5 NA 143 LAB L501.5600 3.5-5. mmol/L Normal 1 K 3.8 LAB L501.5900 98-107 mmol/L Normal CL 107 LAB L501.6100 21.0-3 mmol/L Normal 2.0 CO2 26.0 LAB L501.6200 5-15 Normal GAP 10 Performed By: #### L500.4050 #### [facility] [address] [place], [address] CBC W/DIFF, AUTOMATED Collected: 02/28/2018 Status: F Source: [place] 1:55 AM [facility] REPOSITORY TYPE CODE TESTS RESULT OUT OF RANGE REFERENCE UNITS LAB L100.1000 4.4-11.0 K/mm3 High WBC 11.8 LAB L100.1200 4.2-5.4 M/mm3 Normal RBC 4.79 LAB L100.1300 12.0-15.0 g/dl Normal HGB 14.8 LAB L100.1400 37-47 % Normal HCT 44.3 LAB L100.1500 81-99 fL Normal MCV 92.5 LAB L100.1600 27.0-32.0 pg Normal MCH 30.9 LAB L100.1700 32-36 g/gl Normal MCHC 33.4 LAB L100.1810 11.6-14.6 % Normal RDW CV 12.8 LAB L100.1820 35.1-43.9 fl Normal RDW SD 42.7 LAB L100.1900 150-450 K/mm3 Normal PLT 261 LAB L100.2000 6.2-12.0 fl Normal MPV 10.6 LAB L100.2100 47-70 % High NEUT% 81.1 LAB L100.2200 19-41 % Low LY% 11.9 LAB L100.2300 0-10 % Normal MONO% 5.9 LAB L100.2400 0-5 % Normal EO% 0.6 LAB L100.2500 0-1 % Normal BASO% 0.2 LAB L100.2550 0.0-0.9 % Normal IM GRAN % 0.300 Result Comment: IG% - Immature Granulocytes (promyelocytes, myelocytes and metamyelocytes) > 1% indicates that a LEFT SHIFT is Present. LAB L100.2620 2.0-7.7 X10 3/uL High Absolute Neut 9.6 LAB L100.2720 0.83-4.51 X10 3/ul Normal Absolute Lymph 1.41 Performed By: #### L100.0100 #### [facility] [address] ALCOHOL, BLOOD Collected: 02/28/2018 Status: F Source: [place] ([facility] 1:55 AM [facility] REPOSITORY TYPE CODE TESTS RESULT OUT OF RANGE REFERENCE UNITS LAB L501.9100 mg/dL Normal SERUM < 3.0 ETOH Result Comment: The serum:whole blood ethanol ratio is approximately 1.14 and varies slightly with hematocrit. Medical Alcohol reference interval and critical value in non-tolerant individuals; 50 - 100 Impairment 100 Intoxication 100 - 250 Severe Poisoning 250 - 400 Deep/possible fatal coma Performed By: #### L501.9100 #### [facility] [address] [place], [place], [address] EMERGENCY DEPARTMENT Observed: 02/27/2018 Status: F Source: [place] [facility] 3:12 PM [facility] REPOSITORY [facility] Medical Records Department [address] [place] [address] Emergency Department Summary 02/27/18 1309 MR#: [id number] Acct: [id number] Name: SIMI NIELSEN Rep #: [id number] : 1970 48 From: Jesus Shah MD PCP: Paty Catalan DO Status: DEP ER - ER Visit Summary Date of Service: 02/27/18 Chief Complaint: [] Contusion to the left lower abdomen after inadvertently striking sink History of Present Illness: The patient is a 48 F [] schizophrenia, 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 She has no abdominal pain no fever no cough no bowel bladder complaints she did not strike any other part of body she is other complaints she again just simply bumped her abdomen against the sink when she indicates taking all of her medications including her behavioral meds list Physical Examination: [] Resting comforting the bed vital signs are within normal range no psychomotor agitation head neck chest unremarkable abdomen soft it is obese there is a mild area of contusion to the left lower quadrant a circular it is about the size of a silver dollar, this area slightly tender there is no rebound guarding organomegaly there is no deep abdominal pain she denies any pain other than the superficial pain related to the contusion, her back is unremarkable upper lower extremities pelvis are unremarkable Test Results: [] Emergency Department Course and [...] pain, she should not use Motrin, and follow-up with her doctors she agrees and understands Treatment Plan: [] Disposition: [] Home stable Impression: [] Contusion left lower abdomen after inadvertent trauma, history of Eliquis therapy and schizophrenia This note was generated with Alverixation software. It may contain incorrect words, spelling, and punctuation that were not noted in review of the chart prior to signing ED Disposition - Plan for ED Patient: Chief Complaint: Other, Pain/Inj Referrals: Alayna,Paty, DO [Primary Care Provider] - What to do if you have Problems For any increased pain, shortness of breath, bleeding, nausea or vomiting, chest pain, or any unexpected problems, contact your Primary Care Provider. Call [facility] ([phone]) or report to the closest Emergency Room. Call 911 if necessary. 02/27/18 151 <Electronically signed by Jesus Shah MD> Date Jesus Shah MD Cosigner Signature (If Indicated): Date CC: Paty Catalan DO DISCHARGE INSTRUCTION Observed: 02/27/2018 Status: F Source: [place] 1:12 PM [facility] REPOSITORY [facility] Medical Records Department [address] [place] [address] Discharge Instruction 02/27/18 1311 MR#: [id number] Acct: [id number] Name: NIELSENSIMI J Rep #: [id number] : 1970 48 From: Jesus Shah MD PCP: Paty Catalan DO Status: PRE ER ED Disposition - Plan for ED Patient: Chief Complaint: Other, Pain/Inj Instructions: Contusions (Bruises), ED Contusion Soft Tissue Referrals: Paty Catalan, [Primary Care Provider] - What to do if you have Problems For any increased pain, shortness of breath, bleeding, nausea or vomiting, chest pain, or any unexpected problems, contact your Primary Care Provider. Call [facility] ([phone]) or report to the closest Emergency Room. Call 911 if necessary. 02/27/18 1312 <Electronically signed by Jesus Shah MD> Date Jesus Shah MD Cosigner Signature (If Indicated): Date CC: Paty Catalan DO EMERGENCY DEPARTMENT Observed: 02/26/2018 Status: F Source: [place] SUMMARY 3:00 PM [facility] REPOSITORY [facility] Medical Records Department [address] [place] [address] Emergency Department Summary 02/26/18 1457 MR#: [id number] Acct: [id number] Name: SIMI NIELSEN Rep #: [id number] : 1970 48 From: Navid De Paz MD PCP: Paty Catalan DO Status: REG ER - ER Visit Summary Date of Service: 02/26/18 Chief Complaint: Schizophrenia presents with hallucinations for the past week. She [...] the hallucinations that are bothering her more more. Physical Examination: Vitals are within normal limits. She is not in distress. Neck is supple. Heart tones are regular and without murmur. Lungs are clear bilaterally. Abdomen is soft and nontender. No focal or lateralizing neuro findings. Speech [...] ask for an injection of Geodon here because this has worked well for her in the past so she was given a low-dose injection prior to discharge. Treatment Plan: Follow up with her new psychiatrist Disposition: Home stable condition Impression: Subsequent encounter, paranoid ideation with history of schizophrenia This note was generated with [employer] dictation software. It may contain incorrect words, spelling, and punctuation that were not noted in review of the chart prior to signing ED Disposition - Plan for ED Patient: Chief Complaint: Mental Health Instructions: ED Paranoid Schizophrenia Referrals: Paty Catalan, DO [Primary Care Provider] - What to do if you have Problems For any increased pain, shortness of breath, bleeding, nausea or vomiting, chest pain, or any unexpected problems, contact your Primary Care Provider. Call [facility] ([phone]) or report to the closest Emergency Room. Call 911 if necessary. 02/26/18 1500 <Electronically signed by Navid De Paz MD> Date Navid De Paz MD Cosigner Signature (If Indicated): Date CC: Paty Catalan DO CBC W/DIFF, AUTOMATED Collected: 02/26/2018 Status: F Source: [place] 10:45 AM [facility] REPOSITORY TYPE CODE TESTS RESULT OUT OF RANGE REFERENCE UNITS LAB L100.1000 4.4-11.0 K/mm3 Normal WBC 9.6 LAB L100.1200 4.2-5.4 M/mm3 Normal RBC 4.78 LAB L100.1300 12.0-15.0 g/dl Normal HGB 14.5 LAB L100.1400 37-47 % Normal HCT 44.3 LAB L100.1500 81-99 fL Normal MCV 92.7 LAB L100.1600 27.0-32.0 pg Normal MCH 30.3 LAB L100.1700 32-36 g/gl Normal MCHC 32.7 LAB L100.1810 11.6-14.6 % Normal RDW CV 13.1 LAB L100.1820 35.1-43.9 fl High RDW SD 44.0 LAB L100.1900 150-450 K/mm3 Normal PLT 240 LAB L100.2000 6.2-12.0 fl Normal MPV 10.2 LAB L100.2100 47-70 % Normal NEUT% 58.1 LAB L100.2200 19-41 % Normal LY% 31.7 LAB L100.2300 0-10 % Normal MONO% 8.0 LAB L100.2400 0-5 % Normal EO% 1.8 LAB L100.2500 0-1 % Normal BASO% 0.2 LAB L100.2550 0.0-0.9 % Normal IM GRAN % 0.200 Result Comment: IG% - Immature Granulocytes (promyelocytes, myelocytes and metamyelocytes) > 1% indicates that a LEFT SHIFT is Present. LAB L100.2620 2.0-7.7 X10 3/uL Normal Absolute Neut 5.6 LAB L100.2720 0.83-4.51 X10 3/ul Normal Absolute Lymph 3.05 Performed By: #### L100.0100 #### [facility] [address] [place], [address] BASIC METABOLIC Collected: 02/26/2018 Status: F Source: [place] [facility] ([facility]) 10:45 AM [facility] REPOSITORY TYPE CODE TESTS RESULT OUT OF RANGE REFERENCE UNITS LAB L501.0100 74-106 mg/dL High GLU 109 Result Comment: Fasting Glucose result from 100 to 125 mg/dL suggests IMPAIRED HOMEOSTASIS per A.D.A. criteria. Please note revised GLUCOSE reference range effective 2017. LAB L501.1000 7-18 mg/dL Normal BUN 16 LAB L501.1100 0.55-1.02 mg/dL Normal CREAT,SERUM 0.63 Result Comment: The validity of the calculated GFR AND GFRAA in patients over 70 years has not been determined. Clinical correlation is essential. LAB L501.1110 >60 mL/min Normal EST GFR 106 Result Comment: Non- GFR Calc LAB L501.1115 >60 mL/min Normal EST GFR - AA 128 Result Comment: GFR Calc LAB L501.1255 ml/min Normal Estimated CRCL 92.25 LAB L501.1300 10-20 RATIO High BUN/CRE 25.3 LAB L501.2200 8.5-10 mg/dL Normal .1 CA 8.8 LAB L501.5300 136-14 mmol/L Normal 5 NA 142 LAB L501.5600 3.5-5. mmol/L Normal 1 K 3.6 LAB L501.5900 98-107 mmol/L Normal CL 106 LAB L501.6100 21.0-3 mmol/L Normal 2.0 CO2 26.0 LAB L501.6200 5-15 Normal GAP 10 Performed By: #### L500.2500 #### [facility] [address] [place], [address] ,SERUM,HCG QUALI. Collected: Status: F Source: [place] 02/26/2018 10:45 AM [facility] REPOSITORY TYPE CODE TESTS RESULT OUT OF REFERENCE UNITS RANGE LAB L700.6700 =>Qualitative mIU/mL Normal HCG Qual 2 triggr LAB L700.7000 0-9 Nonpreg Negative Normal HCGSQUAL NEGATIVE Performed By: #### L700.6800 #### [facility] [address] [facility] [place], [place], [id number] ALCOHOL, BLOOD Collected: 02/26/2018 Status: F Source: [place] (MEDICAL)-SERUM 10:45 AM [facility] REPOSITORY TYPE CODE TESTS RESULT OUT OF RANGE REFERENCE UNITS LAB L501.9100 mg/dL Normal SERUM 5.0 ETOH Result Comment: The serum:whole blood ethanol ratio is approximately 1.14 and varies slightly with hematocrit. Medical Alcohol reference interval and critical value in non-tolerant individuals; 50 - 100 Impairment 100 Intoxication 100 - 250 Severe Poisoning 250 - 400 Deep/possible fatal coma Performed By: #### L501.9100 #### [facility] [address] [facility] [place], [place], [address] URINE DRUG SCREEN Collected: 02/26/2018 Status: F Source: [place] (VISTA) 10:40 AM [facility] REPOSITORY TYPE CODE TESTS RESULT OUT OF RANGE REFERENCE UNITS LAB L505.0075 TO BE Normal CONFIRMED Result Comment: CONFIRMATORY TESTING FOR ALL POSITIVE URINE DRUG SCREEN RESULTS WILL ONLY BE SENT OUT UPON PHYSICIAN ORDER. VISTA Urine Drug Screen methods provide only preliminary analytical test results. A more specific alternate chemical method must be used in order to obtain a confirmed analytical result. Gas chromatography/mass spectrometery (GC/MS) is the preferred confirmatory method. Clinical consideration and professional judgement should be applied to any drug of abuse test result, particularly when preliminary positive results are used. URINE TCA TESTING MUST BE ORDERED SEPARATELY. USE TEST MNEMONIC: [facility] LAB L505.5005 VISTA UDS PH 6 Normal LAB L505.5015 <1000 ng/mL AMPHETAMINES Normal NEGATIVE LAB L505.5025 < 200 ng/mL BARBITIURATES Normal NEGATIVE LAB L505.5035 < 200 ng/mL BENZODIAZIPINE Normal NEGATIVE LAB L505.5045 < 300 ng/mL COCAINE Normal NEGATIVE LAB L505.5055 < 500 ng/mL ECSTACY Normal NEGATIVE LAB L505.5065 < 300 ng/mL METHADONE Normal NEGATIVE LAB L505.5075 < 300 ng/mL OPIATES Normal NEGATIVE LAB L505.5085 < 25 ng/mL PCP Normal NEGATIVE LAB L505.5095 < 50 ng/mL THC Normal NEGATIVE Performed By: #### L505.5000 #### [facility] [address] [place], [address] URINALYSIS, COMPLETE Collected: 02/26/2018 Status: F Source: [place] 10:40 AM [facility] REPOSITORY Order Comment: Order Date: 02/26/18 How was Urine Obtained? CLEAN CATCH TYPE CODE TESTS RESULT OUT OF RANGE REFERENCE UNITS LAB L400.3000 Yellow COLOR Normal Yellow LAB L400.3050 Clear Normal CLARITY Sl. Cloudy LAB L400.3200 Normal mg/dl Normal GLUCOSE, UR Normal LAB L400.3300 Negative mg/dL Normal BILIRUBIN URINE Negative LAB L400.3400 Negative mg/dl High 5 KETONE UR LAB L400.3465 1.002-1.030 Normal SP.GR. DIPSTX 1.020 LAB L400.3550 5.0 - 8.0 pH UR Normal 6.5 LAB L400.3600 Negative mg/dl PROT Normal DIPSTX Negative LAB L400.3700 Normal mg/dl Normal UROBILI Normal LAB L400.3750 Negative Normal NITRITE UR Negative LAB L400.3780 Negative /ul Normal OCCULT BLOOD-UR Negative LAB L400.3800 Negative /ul LEUK Normal ESTERASE Negative LAB L400.4050 0-5 /hpf WBC 0 Normal SEEN LAB L400.4100 0-5 /hpf 0 Normal RBC-UA SEEN LAB L400.4150 5-10 /hpf SQUAM Normal EPI 0-5 SEEN LAB L400.4300 None Seen /hpf Normal BACTERIA RARE LAB L400.4350 <or=2+ /hpf 1+ Normal MUCUS, URINE Performed By: #### L400.0001 #### [facility] [address] [place], [address] EMERGENCY DEPARTMENT Observed: 02/24/2018 Status: F Source: [place] SUMMARY 12:16 AM [facility] REPOSITORY [facility] Medical Records Department [address] [facility] [place] [address] Emergency Department Summary 02/23/182009 MR#: [id number] Acct: [id number] Name: SIMI NIELSEN Rep #: [id number] : 1970 48 From: Bronson Willson MD PCP: Paty Catalan DO Status: DEP ER - ER Visit Summary Date of Service: 02/23/18 Chief Complaint: Auditory hallucinations History of Present Illness: The patient is [...] chills, cold sweats. Cardiovascular: No chest pain, palpitations. Respiratory: No cough, shortness of breath, dyspnea on exertion. Gastrointestinal: No abdominal pain, nausea, vomiting, diarrhea, melena, or hematochezia. Genitourinary: No dysuria, frequency, hematuria. Skin: No rash. Neuro: No numbness, weakness. Physical Examination: Vitals: Stable. Afebrile. General: Well-nourished and well-developed. Head: Normocephalic atraumatic. Neck: Supple, no lymphadenopathy. No JVD. Nontender. Cardiovascular: Regular rate and rhythm. No murmurs. Respiratory: No respiratory distress. Clear to auscultation bilaterally. Abdominal: Soft, nontender, nondistended, normal bowel sounds. No guarding, rebound, or peritoneal signs. Back: Nontender. Extremities: Nontender, no edema. Skin: Normal color, no rash. Neurologic: Alert and oriented 3. Cranial nerves II through XII are intact. Normal strength and sensation. Mental status exam: Patient appears their stated age. Good posture and grooming. Good eye contact. Normal rate, volume, and latency of speech. No suicidal or homicidal ideation. No visual hallucinations. Flow of thought is logical. Insight and judgment is fair. Test Results: CBC is normal. Chem-7 is more for potassium 3.3. LFTs marked for an AST of 14. UA is negative. test negative. CT brain shows no acute disease. Emergency Department Course and Treatment: Patient was given 10 mg of Geodon IM and feels much improved. Treatment Plan: Patient would like to go home. She will be discharged instructions to restart her evening dose of Risperdal tonight. Follow-up the counseling center in 1-2 days if not improving. Return to the emergency department for any worsening symptoms. Disposition: To home in improved and stable condition. Impression: 1. Schizophrenia. 2. Coagulopathy on Eliquis. This note was generated with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 Status: Acute Report of Operation Date of Procedure: 01/10/18 Pre-Operative Diagnosis: r93.[address] scan of abdomen Post-Operative Diagnosis: Same Surgery/Procedure Performed:: Esophagogastroduodenoscopy Type of Anesthesia:: MAC Anesthesiologist: Rios kAbar Description of Procedure: Patient was brought into [...] Normal appearance no mass lesions no ulcerations minimal gastritis was identified in the prepyloric area [...] there is no signs of any recent bleeding there is no signs of any hiatal hernia. Patient's upper scope was entirely normal no biopsies were obtained. - Admit VTE Documentation VTE Present on Admission: No VTE Mechan Device Prophylaxis: None VTE Pharm Prophylaxis ordered?: No Reason prophylaxis not ordered:: Treatment Not Indicated 01/10/18711 <Electronically signed by Frederick Rdz MD> Date Frederick Rdz MD CC: Frederick Rdz MD; Paty Catalan DO Signed BEDSIDE GLUCOSE Collected: 01/10/2018 Status: F Source: [place] 6:24 AM [facility] REPOSITORY TYPE CODE TESTS RESULT OUT OF RANGE REFERENCE UNITS LAB L501.080 70-110 mg/dL Normal BEDSIDE GLU 108 Result Comment: MANAGEMENT OF PATIENT CARE PER NURSING PROTOCOL Performed By: #### L501.080 #### [facility] Point of Care [address] [place] [address] SURGERY VISIT REPORT Observed: 01/03/2018 Status: F Source: [place] 1:32 PM [facility] REPOSITORY [facility] [address] [place] [address] OFFICE VISIT Date of Service: 01/03/18 MR#: [id number] Acct: [id number] Name: SIMI NIELSEN Rep #: [id number] : 1970 Provider: Frederick Rdz MD Age/Sex: 47/F Location: [facility] Status: Signed Intake Vital Signs01/03/18 Height 5 ft 4 in 01/03/18 Weight: 238 lb 9 oz 01/03/18 Body Mass Index (BMI) 40.9 01/03/18 Blood Pressure 87/59 Intake Visit Reasons: Hernia Chief Complaint: umbilical hernia, change in bowel habits Stave Grader Required: No Is patient in pain?: No Allergies No Known Allergies Allergy (Verified 01/03/18 13:01) Medications Carvedilol [Coreg (Beta Gabriela)] 3.125 mg PO BID 10/29/14 [History Confirmed 01/03/18] Citalopram [Celexa] 20 mg PO QHS 08/25/15 [History Confirmed 01/03/18] Lisinopril [Zestril] 2.5 mg PO DAILY 08/25/15 [History Confirmed 01/03/18] Fluticasone 0.05% [Flonase Nasal [place]] 1 spray NASAL DAILY 03/09/17 [History Confirmed 01/03/18] Furosemide 40 mg PO DAILY 03/09/17 [History Confirmed 01/03/18] Risperidone [Risperdal] 4 mg PO QHS 03/09/17 [History Confirmed 01/03/18] Apixaban [Eliquis] 5 mg PO BID #66 tab 03/10/17 [Rx Confirmed 01/03/18] liraglutide 0.6 mg/0.1 mL (18 mg/3 mL) subcutaneous pen injector 0.6 mg SC QDAY 01/03/18 [History Confirmed 01/03/18] metformin 1,000 mg tablet 1,000 mg PO QDAY tab 01/03/18 [History Confirmed 01/03/18] Is last menstrual period known: No Post [...] CAT scan that was recently completed at [facility] on 12/31/2017. This showed a thickened [...] incisional hernia. ROS General General: No weight change, appetite, fatigue, colon cancer, breast cancer or weakness Endo Endocrine: Yes diabetes mellitus; no thyroid disease, thyroid cancer, Hair loss, heat intolerance or cold intolerance Skin Skin: Yes rash; no changing moles Additional Details: eczema Musc Musculoskeletal: Yes back problems; no arthritis, rheumatoid arthritis, gout or joint pain Cardio Cardiovascular: Yes heart disease and high blood pressure; no murmur, pacemaker, atrial fibrillation, heart attack, heart stent, palpitations, shortness of breat with exertion or chest pain Additional Details: cardiomyopathy, cardiac arrhythmia, CHF Psych Additional Details: bipolar, schnizophrenia Resp Respiratory: No shortness of breath, Yes sleep apnea, No cough, No COPD, No asthma, No emphysema, Yes wheezing Gastro Gastrointestinal: Yes abdominal pain, No nausea or vomiting, No diarrhea, Yes constipation, No blood in stool, No acid reflux, No hemorrhoids, Yes ulcers, No gallbladder problem, No black,tarry stools Additional Details: IBS Davey Hematologic: Yes blood thinners, No blood disorders, No bleeding, No anemia, Yes blood clots Additional Details: PE and DVT March 2017 Neuro Neurologic: No weakness Exam Const General: well developed, no acute distress, well hydrated Orientation: oriented to person, oriented to place, oriented to time [facility] Head: normocephalic, atraumatic Ears: external ears [...] Rate: regular rate Rhythm: regular rhythm Heart Sounds: no murmurs GI Palpation: soft, tender, no masses, no hepatosplenomegaly Rectal Exam: other Other: A Hernia inferior to her umbilicus is palpated. Rectal exam deferred. Extrem General: no clubbing, cyanosis or edema, normal to inspection Assessment AND Plan Problems 1. Hernia K46.[address] of the abdomen R93.5 3. Diarrhea, unspecified type R19.7 4. Incisional hernia, without obstruction or gangrene K43.2; K43.91 Plan I have discussed the above with the patient. I have offered the patient colonoscopy as well as an esophagogastroduodenoscopy with biopsy for evaluation. I have explained the risks/benefits [...] have the studies completed she will need to have an incisional hernia repair with mesh. My plan is to perform a incisional repair with mesh. the planned surgical procedure was discussed extensively with the patient. The risks, benefits, anticipated outcomes and possible complication were mentioned. The patient understands that all hernia repair surgery has a chance of recurrence and/or chronic post-operative pain. My staff has also explained the procedure in understandable terms and the patient was given the option to take printed material concerning the planned procedure. The patient had the opportunity to ask questions concerning the planned procedure. The patient freely consents to the planned procedure. Coding Level of Care Code Off vis,new,level 3 Diagnoses Hernia K46.[address] of the abdomen R93.5 Diarrhea, unspecified type R19.7 Diarrhea type: unspecified type Incisional hernia, without obstruction or gangrene K43.2; K43.91 Obstruction and gangrene presence: without obstruction or gangrene 01/03/18 1332 <Electronically signed by Frederick Rdz MD> Date Frederick Rdz MD Cosigner Signature: Date (if applicable) CC: Paty Catalan DO ABDOMEN/PELVIS WITH Observed: 12/31/2017 Status: F Source: [place] CONTRAST 5:47 PM [facility] REPOSITORY [facility] Imaging Services [address] [place] [address] Abdomen/Pelvis WITH Contrast MR#: [id number] Acct: [id number] Name: SIMI NIELSEN Rep #: [id number] : 1970 F 47 From: Lotus Dover MD PCP: Paty Catalan DO Status: REG CLI Study: Abdomen/Pelvis WITH Contrast Date of Exam: 12/31/17 Exam# [id number] Ordering Dr: Paty Catalan DO STUDY: CT [...] administered. Sagittal and coronal images were reconstructed. Individualized [...] hiatal hernia. There is contrast in the stomach. There is nonspecific midline filling defect within the stomach which may represent focal wall thickening extending from the greater curvature image #42. There is a thick-walled appearance of the distal stomach. Normal small intestine. Normal colon. The appendix is visualized and appears normal. Normal abdominal aorta. Normal inferior vena cava. Normal retroperitoneum. There is mild bladder wall thickening. There is absence of the uterus consistent with a prior hysterectomy. There are superficial lower pelvic varicosities within the soft tissues left greater than right is a decompressed appearance of the inferior vena cava. There is degenerative change of the lumbar spine. There is a broad disc bulge at L4-L5 with congenital narrowing of the canal. L5-S1 there is a broad disc osteophyte complex congenital narrowing of the canal moderate neural foraminal narrowing moderate central stenosis. There is degenerative change of the SI joints. CT/Abdomen/Pelvis WITH Contrast IMPRESSION: Stable soft tissue varicosities within the lower abdominal/pelvis wall compared to prior study. Status post hysterectomy Status post cholecystectomy. Allowing for peristalsis, Thickened appearance of the wall of the stomach which may represent potentially underlying gastritis and a potential Atypia/mass. Consider follow-up upper GI small bowel follow- through and/or endoscopy. 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 Electronically Signed: Lotus Dover MD at 9:24 EDT Tel , Service support , CC: Paty Catalan DO Berry Picker Machine Operator: Signed EMERGENCY DEPARTMENT Observed: 10/13/2017 Status: F Source: [place] SUMMARY 10:49 PM [facility] REPOSITORY [facility] Medical Records Department [address] [place] [address] Emergency Department Summary 10/13/17 2245 MR#: [id number] Acct: [id number] Name: SIMI NIELSEN Rep #: [id number] : 1970 47 From: Stone Felix MD PCP: Paty Catalan DO Status: PRE ER ADDENDUM by Stone Felix MD on 10/13/17 at 2249 Disregard impression of vaginal bleeding Impression #1 vaginitis Date Stone Felix MD cc: Paty Catalan DO * Signed - ER Visit Summary Date of Service: 10/13/17 Chief Complaint: Vaginal itching and spotting History of Present Illness: The patient is a 47 F with a history of a total hysterectomy on Eliquis who had some vaginal itching today and when she checked noticed a small amount of blood. She denies any pelvic [...] appears to be the source of bleeding. This may be due to vaginal atrophy. Test Results: Not indicated Emergency Department Course and Treatment: Patient has a small irritated area that appears to be the source of bleeding. She has had a complete hysterectomy. There is no indication for further emergent workup and she was advised of the need to follow-up with a toxicology supervisor. Stance return for new or worsening symptoms. She was discharged. Treatment Plan: [] Disposition: Discharge Impression: Vaginal bleeding This note was generated with [employer] dictation software. It may contain incorrect words, [...] problems, contact your Primary Care Provider. Call [facility] ([phone]) or report to the closest Emergency Room. Call 911 if necessary. 10/13/172246 <Electronically signed by Stone Felix MD> Date Stone Felix MD Cosigner Signature (If Indicated): Date CC: Paty Catalan DO DISCHARGE INSTRUCTION Observed: 10/13/2017 Status: F Source: [place] 10:49 PM [facility] REPOSITORY [facility] Medical Records Department [address] [place] [address] Discharge Instruction 10/13/172246 MR#: [id number] Acct: [id number] Name: SIMI NIELSEN Rep #: [id number] : 1970 47 From: Stone Felix MD PCP: Paty Catalan DO Status: PRE ER ED Disposition - Plan for ED Patient: Chief Complaint: Vag Bleeding Instructions: ED Vaginitis Atrophic Referrals: Paty Catalan DO [Primary Care Provider] - Arnav Saha MD [STAFF PHYSICIAN] - What to do if you have Problems For any increased pain, shortness of breath, bleeding, nausea or vomiting, chest pain, or any unexpected problems, contact your Primary Care Provider. Call [facility] ([phone]) or report to the closest Emergency Room. Call 911 if necessary. 10/13/17 6473 <Electronically signed by Stone Felix MD> Date Stone Felix MD Cosigner Signature (If Indicated): Date CC: Paty Catalan DO SCREENING MAMM (CAD), Observed: 09/30/2017 Status: F Source: [facility] 5:39 PM [facility] REPOSITORY [facility] Imaging Services [address] [place] [address] SCREENING MAMM (CAD), BIL MR#: [id number] Acct: [id number] Name: SIMI NIELSEN Rep #: [id number] : 1970 F 47 From: Jaxon Zhang MD PCP: Paty Catalan DO Status: REG CLI Study: SCREENING MAMM (CAD), BILAT Date of Exam: 09/30/17 Exam# [id number] Ordering Dr: Paty Catalan DO MAMMOGRAPHY - BILATERAL SCREENING REASON FOR EXAM: Female, 47 years old. Routine annual screening examination. PERTINENT HISTORY: Mother with breast cancer. Aunt with breast cancer. TECHNIQUE: Digital bilateral breast jakob (3D mammographic acquisition) in the CC and MLO projections. 2-D mediolateral oblique (MLO) and craniocaudad (CC) views of both breasts were obtained. CAD: Full Field Digital Mammography with Computer Added Detection was performed. COMPARISON: Comparison is made with prior study dated September 13, 2012 and May 14, 2011. FINDINGS: Breast Composition: There are scattered areas of fibroglandular density. There are no dominant masses or suspicious calcifications. No other significant abnormalities are identified. There has been no significant change since the prior study. BI/SCREENING MAMM (CAD), BILAT IMPRESSION: Stable bilateral screening mammogram. Yearly follow-up mammogram recommended. (A) ASSESSMENT CATEGORY: BIRADS Category 1: Negative. A letter regarding these results will be sent to the patient by the facility within 30 days. Approximately 10% of breast cancers are not detected by mammography. A normal mammogram should not delay biopsy of a clinically suspicious abnormality. [id number] Electronically Signed: Jaxon Zhagn MD at 8:14 EDT Tel [phone], Service support , CC: Paty Catalan DO Berry Picker Machine Operator: Signed HAND 2 VIEWS Observed: 09/06/2017 Status: F Source: [place] 12:49 PM [facility] REPOSITORY [facility] Imaging Services [address] [place] [address] Hand 2 Views MR#: [id number] Acct: [id number] Name: SIMI NIELSEN Rep #: [id number] : 1970 F 47 From: Olivia Ramirez MD PCP: Paty Catalan DO Status: REG CLI Study: Hand 2 Views Date of Exam: 09/06/17 Exam# [id number] Ordering Dr: Paty Catalan DO STUDY: X-RAY - LEFT HAND REASON FOR EXAM: Female, 47 years old. Pain TECHNIQUE: Two view(s) of the hand were obtained. COMPARISON: None. FINDINGS: Bones: There are no acute osseous abnormalities. Joints: The visualized joints are unremarkable. Soft tissues: The soft tissues are unremarkable. Foreign body: None RAD/Hand 2 Views IMPRESSION: No significant abnormalities are seen radiographically in the left hand. Electronically Signed: Olivia Ramirez MD at 8:19 EDT Tel Direct: [phone], Service support , CC: Paty Catalan DO Berry Picker Machine Operator: Signed HAND 2 VIEWS Observed: 09/06/2017 Status: F Source: [place] 12:49 PM [facility] REPOSITORY [facility] Imaging Services [address] [place] [address] 20769 Hand 2 Views MR#: [id number] Acct: [id number] Name: SIMI NIELSEN Rep #: [id number] : 1970 F 47 From: Olivia Ramirez MD PCP: Paty Catalan DO Status: REG CLI Study: Hand 2 Views Date of Exam: 09/06/17 Exam# [id number] Ordering Dr: Paty Catalan DO STUDY: X-RAY - RIGHT HAND REASON FOR EXAM: Female, 47 years old. Pain TECHNIQUE: Two view(s) of the hand were obtained. COMPARISON: None. FINDINGS: Bones: There are no acute osseous abnormalities. Joints: The visualized joints are unremarkable. Soft tissues: The soft tissues are unremarkable. Foreign body: None RAD/Hand 2 Views IMPRESSION: No significant abnormalities are seen radiographically in the right hand. Electronically Signed: Olivia Ramirez MD at 8:20 EDT Tel Direct: [phone], Service support , CC: Paty Catalan DO Berry Picker Machine Operator: Signed ANKLE MIN 3 VIEWS Observed: 07/27/2017 Status: F Source: [place] 11:17 AM [facility] REPOSITORY [facility] Imaging Services [address] [place] [address] Ankle min 3 Views MR#: [id number] Acct: [id number] Name: SIMI NIELSEN Rep #: [id number] : 1970 F 47 From: Jaxon Zhang MD PCP: Paty Catalan DO Status: REG CLI Study: Ankle min 3 Views Date of Exam: 07/27/17 Exam# [id number] Ordering Dr: Paty Catalan DO STUDY: X-RAY - RIGHT ANKLE REASON FOR EXAM: Female, 47 years old. Bilateral ankle pain. TECHNIQUE: 3 view(s) of the ankle. COMPARISON: None. FINDINGS: Normal visualized distal tibia and fibula. Normal medial and lateral malleoli. Normal tibiotalar articulation and ankle mortise. Small plantar spur. The visualized subtalar, talonavicular, calcaneocuboid and tarsal articulations are normal. The soft tissue structures are unremarkable. RAD/Ankle min 3 Views IMPRESSION: Small plantar spur. Electronically Signed: Jaxon Zhang MD at 12:44 EST Tel [phone], Service support , CC: Paty Catalan DO Berry Picker Machine Operator: Signed ANKLE MIN 3 VIEWS Observed: 07/27/2017 Status: F Source: [place] 11:17 AM [facility] REPOSITORY [facility] Imaging Services [address] [place] [address] Ankle min 3 Views MR#: [id number] Acct: [id number] Name: SIMI NIELSEN Rep #: [id number] : 1970 F 47 From: Jaxon Zhang MD PCP: Paty Catalan DO Status: REG CLI Study: Ankle min 3 Views Date of Exam: 07/27/17 Exam# [id number] Ordering Dr: Paty Catalan DO STUDY: X-RAY - LEFT ANKLE REASON FOR EXAM: Female, 47 years old. Bilateral ankle pain. TECHNIQUE: 3 view(s) of the ankle. COMPARISON: None. FINDINGS: Normal visualized distal tibia and fibula. Normal medial and lateral malleoli. Normal tibiotalar articulation and ankle mortise. Plantar spurs. The visualized subtalar, talonavicular, calcaneocuboid and tarsal articulations are normal. Mild soft tissue swelling. RAD/Ankle min 3 Views IMPRESSION: Mild soft tissue swelling. Electronically Signed: Jaxon Zhang MD at 12:45 EST Tel [phone], Service support , CC: Paty Catalan DO Berry Picker Machine Operator: Signed FOOT MIN 3 VIEWS Observed: 07/27/2017 Status: F Source: [place] 11:17 AM [facility] REPOSITORY [facility] Imaging Services [address] [place] [address] 47097 Foot min 3 Views MR#: [id number] Acct: [id number] Name: SIMI NIELSEN Rep #: [id number] : 1970 F 47 From: Rom Edgar MD PCP: Paty Catalan DO Status: REG CLI Study: Foot min 3 Views Date of Exam: 07/27/17 Exam# [id number] Ordering Dr: Paty Catalan DO STUDY: X-RAY - RIGHT FOOT CLINICAL: Female, 47 years old. Pain TECHNIQUE: 3 view(s) of the foot. COMPARISON: None. FINDINGS: A small plantar calcaneal spur. A prominent talar beak Normal visualized subtalar, talonavicular, calcaneocuboid, tarsal and tarsometatarsal articulations. Normal metatarsi. Normal metatarsophalangeal joint of the great toe. Normal tibial and fibular sesamoid bones. Normal interphalangeal joint of the great toe. Normal phalanges of the great toe. Normal second through fifth metatarsophalangeal joints. Normal interphalangeal joints and phalanges of the lesser toes. The soft tissue structures are unremarkable. RAD/Foot min 3 Views IMPRESSION: Normal x-ray examination of the foot. No fractures. A small plantar calcaneal spur and a prominent talar beak Electronically Signed: Rom Edgar, at 3:19 EST Tel , Service support , CC: Paty Catalan DO Berry Picker Machine Operator: Signed FOOT MIN 3 VIEWS Observed: 07/27/2017 Status: F Source: [place] 11:17 AM [facility] RE[facility]ITORY [facility] Imaging Services [address] [place] [address] 00852 Foot min 3 Views MR#: [id number] Acct: [id number] Name: SIMI NIELSEN Rep #: [id number] : 1970 F 47 From: Rom Edgar MD PCP: Paty Catalan DO Status: REG CLI Study: Foot min 3 Views Date of Exam: 07/27/17 Exam# [id number] Ordering Dr: Paty Catalan DO STUDY: X-RAY - LEFT FOOT CLINICAL: Female, 47 years old. Left foot and ankle pain TECHNIQUE: 3 views view(s) of the foot. COMPARISON: None. FINDINGS: There are small spurs from the posterior plantar surface of the os calcis. No fractures. No joint disease. Mild soft tissue swelling RAD/Foot min 3 Views IMPRESSION: Small spurs from the posterior and plantar surfaces of the os calcis. No fracture Electronically Signed: Rom Edgar, at 3:36 EST Tel , Service support , CC: Paty Catalan DO Berry Picker Machine Operator: Signed ALLERGIES ALLERGIES DATE TYPE / CODE NAME / CODE REACTION SEVERITY SOURCE 07/18/[address] [facility] Allergy/416 Allergies/Y32886 Hospital 787751(SNOM 0388(RXNORM) Repository ED CT) Drug NO KNOWN [facility] Class/40396 ALLERGIES Repository 1003(SNOMED CT) ENCOUNTERS ENCOUNTERS ADMIT/DISCHARGE ACCOUNT NUMBER ADMITTING ENCOUNTER LOCATION SOURCE CLASS 07/19/[id number] Eliud Inpatient [facility] Chloé Coto Encounter lding:[address] and Psych/Adult Shanta CloRoom: Hospitals [facility] Repository 3305Bed: [facility] [id number] 07/18/2018/07/18/19 [id number] Vlad, Ambulatory [facility] ding:ICURoom Repository : IJZ17Ylv: 1 07/18/2018 [id number] Vlad, Ambulatory BMSBuilding: [place] BMS..[facility] Repository 07/18/2018 [id number] Vlad, Ambulatory BMSBuilding: [place] BMS.[facility] Repository 07/18/2018 [id number] Ambulatory BMSBuilding: [place] BMS.[facility] Repository 07/10/2018/07/15/19 [id number] Agyepong, Inpatient [place] [address] ding:QE3Hhty Repository : VT092Eve: 1 07/10/2018 [id number] Agyepong, Ambulatory BMSBuilding: [place] Quint[place] BMS.[facility] Repository 07/10/2018 [id number] Agyepong, Ambulatory BMSBuilding: [place] Quint[place] BMS.[facility] Repository 07/10/2018 [id number] Agyepong, Ambulatory BMSBuilding: [place] Quint[place] BMS.[facility] Repository 07/10/2018 [id number] Agyepong, Ambulatory BMSBuilding: [place] BMS.[facility] Repository 07/10/2018 [id number] Agyepong, Ambulatory BMSBuilding: [place] BMS.[facility] Repository 07/09/2018 [id number] Agyepong, Ambulatory BMSBuilding: [place] Quint[place] BMS.[facility] Repository 07/09/2018 [id number] Agyepong, Ambulatory BMSBuilding: [place] BMS.[facility] Repository 06/26/2018/06/26/20 [id number] Emergency [address] ding:ED Repository 05/10/2018 [id number] Ambulatory Building:[facility] Repository 04/18/2018/04/19/20 [id number] Emergency [address] [place] Repository :EDW 04/16/2018/04/16/20 [id number] Emergency [address] [place] Repository :EDW 03/28/2018/04/01/20 [id number] BIBI GROSSMAN Ambulatory Building:[address] GRoom: Two F64Bed: 64 Repository 03/15/2018/03/18/20 [id number] Agyepong, Ambulatory [address] ding:PCURoom Repository : [id number]: 1 03/15/2018 [id number] Agyepong, Ambulatory BMSBuilding: [place] Quint[place] BMS.[facility] Repository 03/15/2018 [id number] Agyepong, Ambulatory BMSBuilding: [place] Quint[place] BMS.[facility] Repository 03/15/2018 [id number] Agyepong, Ambulatory BMSBuilding: [place] BMS.[facility] Repository 03/15/2018 [id number] Agyepong, Ambulatory BMSBuilding: [place] BMS.[facility] Repository 02/28/2018/02/29/20 [id number] Emergency [address] ding:ED Repository 02/27/2018/02/28/20 [id number] Emergency [address] ding:ED Repository 02/26/2018/02/27/20 [id number] Emergency [address] ding:ED Repository 02/23/2018/02/24/20 [id number] Emergency [address] ding:ED Repository 02/21/2018/02/22/20 [id number] Ambulatory [address] ding:PT Repository 02/15/2018 [id number] Ambulatory [facility] ding:HPRAD Repository 02/14/2018/02/15/20 [id number] Ambulatory [address] ding:EN Repository 02/14/2018 [id number] Ambulatory BMSBuilding: [place] BMS.[facility] Repository 02/09/2018 [id number] Ambulatory [facility] ding:PSN Repository 02/02/2018/02/03/20 [id number] Emergency [address] ding:ED Repository 01/19/2018/01/20/20 [id number] Ambulatory BMSBuilding: [place] 18 BMS.[facility] Repository 01/10/2018/01/11/20 [id number] Ambulatory [address] ding:EN Repository 01/10/2018 [id number] Ambulatory BMSBuilding: [place] BMS.[facility] Repository 01/03/2018/01/04/20 [id number] Ambulatory BMSBuilding: [place] 18 BMS.[facility] Repository 12/31/2017 [id number] Ambulatory [facility] ding:CT Repository 10/13/2017/10/14/19 [id number] Emergency [address] ding:ED Repository 09/30/2017 [id number] Ambulatory [facility] ding:OPBI Repository 09/06/2017 [id number] [facility] ding:HPRAD Repository 07/27/2017 [id number] [facility] ding:HPRAD Repository PAYERS PAYERS ENCOUNTER GUARANTOR PAYER SUBSCRIBER SOURCE 07/19/2018 [place] [place]:United WALLACEDOB: [place] [facility] [id number] [facility] [address] Repository Number: [place], [place] [id number] Date:Plan Name:[address] [address]US: 07/19/2018 Secondary SIMI WALLAC[place]OB: [place] Insurance:MedicarePol [id number] [place] [facility] Number: [address] [facility] [id number] [place], [place] Repository Date:Plan Name:[facility] [id number] A 07/19/2018 Tertiary SIMI WALLACEDOB: [facility] Insurance:MedicarePol [id number] [place] [facility] Number: [address] [facility] [id number] [place] Repository Date:Plan Name:[facility] [address] B 07/18/2018 SIMI J Primary Insurance:UMR RITA S [place] [id number] [id number] WALLACEDOB: Community [place] Number: [id number], [place] [id number] Repository [address]Ahe: (330) Date:6126-17-75YT [phone] () [address] [place] [address]TO: 07/18/2018 Secondary SIMI J [place] Insurance:MEDICARE WALLACEDOB: Community PART A BPolicy [id number] Hospital Number: Repository [id number] Date:2018-07-17 07/18/2018 Tertiary NOT GIVENUNK [place] Insurance:SELF PAY [facility] Number: Effective Repository Date:2018-07-17 07/18/2018 SIMI J Primary Insurance:UMR RITA S [place] [id number] [id number] WALLACEDOB: Community [place] Number: [id number], [place] [id number] Repository [address]Mwy: (330) Date:0901-77-03GW [phone] () [address] [place] [address]MO: 07/18/2018 Secondary SIMI J [place] Insurance:MEDICARE WALLACEDOB: Community PART A [facility] [id number] Hospital Number: Repository [id number] Date:2018-07-17 07/18/2018 Tertiary NOT GIVENUNK [place] Insurance:SELF PAY [facility] Number: Effective Repository Date:2018-07-18 07/18/2018 SIMI J Primary Insurance:UMR RITA S [place] [id number] [id number] WALLACEDOB: Community [place] Number: [id number], [place] [id number] Repository [address]Xtx: 330) Date:5555-50-41EH [phone] () [address] [place] [address]YH: 07/18/2018 Secondary SIMI J [place] Insurance:MEDICARE WALLACEDOB: Community PART A [facility] [id number] Hospital Number: Repository [id number] Date:2018-07-17 07/18/2018 Tertiary NOT GIVENUNK [place] Insurance:SELF PAY [facility] Number: Effective Repository Date:2018-07-18 07/18/2018 SIMI J Primary Insurance:UMR RITA S [place] [id number] [id number] WALLACEDOB: Community [place] Number: [id number], [place] [id number] Repository [address]Oxr: (330) Date:9891-99-07RR [phone] () [address] [place] [address]SL: 07/18/2018 Secondary SIMI J [place] Insurance:MEDICARE WALLACEDOB: Community PART A olic [id number] Hospital Number: Repository [id number] Date:2018-07-17 07/18/2018 Tertiary NOT GIVENUNK [place] Insurance:SELF PAY Community [facility] Number: Effective Repository Date:2018-07-18 07/10/2018 SIMI J Primary Insurance:UMR RITA S [place] [id number] [id number] WALLACEDOB: [facility] Number: [id number], [place] [id number] Repository [address]Brs: 330) Date:5295-08-76KY [phone] () [address] [place] [address]BZ: 07/10/2018 Secondary SIMI J [place] Insurance:MEDICARE WALLACEDOB: Community PART A [facility] [id number] Hospital Number: Repository [id number] Date:2018-07-09 07/10/2018 Tertiary NOT GIVENUNK [place] Insurance:SELF PAY [facility] Number: Effective Repository Date:2018-07-09 07/10/2018 SIMI J Primary Insurance:UMR RITA S [place] [id number] [id number] WALLACEDOB: Community [place] Number: [id number], [place] [id number] Repository [address]Rbf: (330) Date:8042-36-32GR [phone] () [address] [place] [address]XB: 07/10/2018 Secondary SIMI J [place] Insurance:MEDICARE WALLACEDOB: Community PART A olic [id number] Hospital Number: Repository [id number] Date:2018-07-09 07/10/2018 Tertiary NOT GIVENUNK [place] Insurance:SELF PAY [facility] Number: Effective Repository Date:2018-07-10 07/10/2018 SIMI J Primary Insurance:UMR RITA S [place] [id number] [id number] WALLACEDOB: Community [place] Number: [id number], [place] [id number] Repository [address]Zrl: (330) Date:0644-34-62FW [phone] () [address] [place] [address]RT: 07/10/2018 Secondary SIMI J [place] Insurance:MEDICARE WALLACEDOB: Community PART A [facility] [id number] Hospital Number: Repository [id number] Date:2018-07-09 07/10/2018 Tertiary NOT GIVENUNK [place] Insurance:SELF PAY [facility] Number: Effective Repository Date:2018-07-10 07/10/2018 SIMI J Primary Insurance:UMR RITA S [place] [id number] [id number] WALLACEDOB: Community [place] Number: [id number], [place] [id number] Repository [address]Bqq: (330) Date:7850-68-21HQ [phone] () [address] [place] [address]YG: 07/10/2018 Secondary SIMI J [place] Insurance:MEDICARE WALLACEDOB: Community PART A [facility] [id number] Hospital Number: Repository [id number] Date:2018-07-09 07/10/2018 Tertiary NOT GIVENUNK [place] Insurance:SELF PAY [facility] Number: Effective Repository Date:2018-07-10 07/10/2018 SIMI J Primary Insurance:UMR RITA S [place] [id number] [id number] WALLACEDOB: [facility] Number: [id number], [place] [id number] Repository [address]Hty: (330) Date:7965-87-37AI [phone] () [address] [place] [address]YY: 07/10/2018 Secondary SIMI J [place] Insurance:MEDICARE WALLACEDOB: Community PART A [facility] [id number] Hospital Number: Repository [id number] Date:2018-07-09 07/10/2018 Tertiary NOT GIVENUNK [place] Insurance:SELF PAY Community [facility] Number: Effective Repository Date:2018-07-10 07/10/2018 SIMI J Primary Insurance:UMR RITA S [place] [id number] [id number] WALLACEDOB: [facility] Number: [id number], [place] [id number] Repository [address]Tqr: [phone]) Date:5660-45-67MO [phone] () [address] [place] [address]RZ: 07/10/2018 Secondary SIMI J [place] Insurance:MEDICARE WALLACEDOB: Community PART A [facility] [id number] Hospital Number: Repository [id number] Date:2018-07-09 07/10/2018 Tertiary NOT GIVENUNK [place] Insurance:SELF PAY [facility] Number: Effective Repository Date:2018-07-10 07/09/2018 SIMI J Primary Insurance:UMR RITA S [place] [id number] [id number] WALLACEDOB: [facility] Number: [id number], [place] [id number] Repository 174[address]Bfd: (260) ffpremier health [phone] () Date:6766-91-95FU [address] [place] [address]HX: 07/09/2018 Secondary SIMI J [place] Insurance:MEDICARE WALLACEDOB: Community PART A [facility] [id number] Hospital Number: Repository [id number] Date:2018-07-09 07/09/2018 Tertiary NOT GIVENUNK [place] Insurance:SELF PAY Community [facility] Number: Effective Repository Date:2018-07-09 07/09/2018 SIMI J Primary Insurance:UMR RITA S [place] [id number] [id number] WALLACEDOB: Community [place] Number: [id number], [place] [id number] Repository [address]Hjo: (528) ffective [phone] (HP) Date:3170-06-10BR [address] [place] [address]AX: 07/09/2018 Secondary SIMI J [place] Insurance:MEDICARE WALLACEDOB: Community PART A olicy [id number] Hospital Number: Repository [id number] Date:2018-07-09 07/09/2018 Tertiary NOT GIVENUNK [place] Insurance:SELF PAY [facility] Number: Effective Repository Date:2018-07-09 06/26/2018 RITA Chris Primary Insurance:UMR RITA S [place] [id number] [id number] WALLACEDOB: [facility] Number: [id number], [place] [id number] Repository [address]Hxr: (330) Date:5015-75-00XO [phone] () [address] [place] [address]IJ: 06/26/2018 Secondary SIMI J [place] Insurance:MEDICARE WALLACEDOB: Community PART A olicy [id number] Hospital Number: Repository [id number] Date:2018-06-26 06/26/2018 Tertiary NOT GIVENUNK [place] Insurance:SELF PAY [facility] Number: Effective Repository Date:2018-06-26 05/10/2018 Simi J Primary Jose WallaceDOB: [employer] WallaceDOB: Insurance:UMRPolicy [id number] Repository Number: [address] [id number] Jose [facility] Hospitalo[facility]hip[facility] Date:5825-04-78Jthu [place], [place] [address]Wmo: Name:FP. Tova iDxon [address]Sig: (330) [address] [place] [address] [phone] (HP) (HP)Tel: ([phone]) [place] [phone]: (wp) [phone] 05/10/2018 Secondary Simi J [facility] Insurance:Medicare WallaceDOB: Repository Secondary UnitPolicy [id number] Number: [address] [id number] LincolnwayWooste Date:2663-25-20Ydxd r, [place] [address]Cnu: Name:[employer] [address]Nurgjxjs, [place] () [address]FE: 04/18/2018 SIMI J Primary Insurance:UMR JOSE WALLACEDOB: [place] WALLACEDOB: WAUSAUPolicy Number: [id number] [facility] [id number] Repository [address] Date:2018-03-28[place], [place] 9691-53-50Ujrm [address]Vhi: Name:BPO [address] [place] [address] ()Tel: (000) [place] [phone]: 000-0000 (WP) 04/18/2018 Secondary SIMI J [place] Pal Insurance:MEDICARE WALLACEDOB: Health System PART APolicy Number: [id number] Repository Effective Date:2017-06-289277-19-08Idkf Name:B 04/18/2018 Tertiary SIMI J [place] Insurance:MEDICARE WALLACEDOB: Health System PART BPolicy Number: [id number] Repository Effective Date:2017-06-289776-88-85Chqy Name:B 04/16/2018 SIMI J Primary Insurance:UMR JOSE WALLACEDOB: [place] WALLACEDOB: WAUSAUPolicy Number: [id number] [facility] System [id number] Repository [address] Date:2018-03-28[place], [place] 1113-06-81Hhei [address]Qyv: Name:BPO [address] [place] [address] ()Tel: ([phone]) [place] [phone]: 000-0000 (WP) 04/16/2018 Secondary SIMI [place] Insurance:MEDICARE WALLACEDOB: Health System PART APolicy Number: [id number] Repository Effective Date:2017-06-288872-13-94Aykw Name:B 04/16/2018 Tertiary SIMI Pal Insurance:MEDICARE WALLACEDOB: Health System PART BPolicy Number: [id number] Repository Effective Date:2017-06-288460-03-31Ealj Name:B 03/28/2018 SIMI WALLACEDOB: Primary SIMI WALLACEDOB: [facility] E Insurance:MEDICAREPol [id number] Repository [address] [facility] Number: [address] [place], [place] [id number] [place], [place] [address]Gss: (330) Date:4594-46-80YNR [address]Pfb: () J PART A CLAIMSPO [phone] () [address] [place] [address]CD: 03/28/2018 Secondary RITA [facility] Insurance:CPolicy WALLACEUNK Repository Number: [id number] Date:9784-49-08CC [address] [place] [address]JL: 03/15/2018 RITA S Primary Insurance:UMR RITA S [place] [id number] [id number] WALLACEDOB: [facility] Number: [id number] [place], [place] [id number] Repository [address]Kiy: (330) Date:4238-26-37ZW [phone] () [address] [place] [address]EA: 03/15/2018 Secondary SIMI J [place] Insurance:MEDICARE WALLACEDOB: Community PART A BPolicy [id number] [facility] Number: Repository [id number] Date:2018-03-15 03/15/2018 Tertiary NOT GIVENUNK [place] Insurance:SELF PAY [facility] INSURANCEPolicy Hospital Number: Effective Repository Date:2018-03-15 03/15/2018 RITA S Primary Insurance:UMR RITA Chris [place] [id number] [id number] WALLACEDOB: [facility] [address] Number: [id number], [place] [id number] Repository [address]Xli: (330) Date:2148-18-51HL [phone] () [address] [place] [address]ZP: 03/15/2018 Secondary SIMI J [place] Insurance:MEDICARE WALLACEDOB: Community PART A [facility] [id number] Hospital Number: Repository [id number] Date:2018-03-15 03/15/2018 Tertiary NOT GIVENUNK [place] Insurance:SELF PAY [facility] [facility] Effective Repository Date:2018-03-15 03/15/2018 RITA S Primary Insurance:UMR RITA Chris Pete [id number] [id number] WALLACEDOB[facility]: [id number], [place] [id number] Repository [address]Ses: (330) Date:6133-62-95WB [phone] () [address] [place] [address]NJ: 03/15/2018 Secondary SIMI J Pete Insurance:MEDICARE WALLACEDOB: Community PART A [facility] [id number] Hospital Number: Repository [id number] Date:2018-03-15 03/15/2018 Tertiary NOT GIVENUNK Pete Insurance:SELF PAY [facility]: Effective Repository Date:2018-03-15 03/15/2018 RITA S Primary Insurance:UMR RITA Chris Pete [id number] [id number] WALLACEDOB: [facility] Number: [id number], [place] [id number] Repository [address]Qgz: (330) Date:6070-22-94GO [phone] () [address] [place] [address]GA: 03/15/2018 Secondary SIMI J [place] Insurance:MEDICARE WALLACEDOB: Community PART A olicy [id number] Hospital Number: Repository [id number] Date:2018-03-15 03/15/2018 Tertiary NOT GIVENUNK [place] Insurance:SELF PAY [facility] Number: Effective Repository Date:2018-03-15 03/15/2018 RITA S Primary Insurance:UMR RITA Chris [place] [id number] [id number] WALLACEDOB[facility]: [id number], [place] [id number] Repository [address]Vlp: 330) Date:5429-86-99SF [phone] () [address] [place] [address]OO: 03/15/2018 Secondary SIMI J Pete Insurance:MEDICARE WALLACEDOB: Community PART A [facility] [id number] Hospital Number: Repository [id number] Date:2018-03-15 03/15/2018 Tertiary NOT GIVENUNK [place] Insurance:SELF PAY [facility] Number: Effective Repository Date:2018-03-15 02/28/2018 Rita S Primary Insurance:UMR Rita Chris Pete [id number] [id number] WallaceDOB: [facility] Number: [id number], [place] [id number] Repository [address]Etk: 330) Date:3796-31-19RH [phone] () [address] [place] [address]RJ: 02/28/2018 Secondary SIMI J [place] Insurance:MEDICARE WALLACEDOB: Community PART A olicy [id number] Hospital Number: Repository [id number] Date:2018-02-28 02/28/2018 Tertiary NOT GIVENUNK [place] Insurance:SELF PAY Community [facility] Number: Effective Repository Date:2018-02-28 02/27/2018 Rita S Primary Insurance:UMR Rita Chris [place] [id number] [id number] WallaceDOB: Community [place] Number: [id number], [place] [id number] Repository [address]Jcc: (330) Date:2788-97-36BG [phone] () [address] [place] [address]AI: 02/27/2018 Secondary SIMI J [place] Insurance:MEDICARE WALLACEDOB: Community PART A [facility] [id number] Hospital Number: Repository [id number] Date:2018-02-27 02/27/2018 Tertiary NOT GIVENUNK [place] Insurance:SELF PAY [facility] Number: Effective Repository Date:2018-02-27 02/26/2018 Rita S Primary Insurance:UMR Rita S [place] [id number] [id number] WallaceDOB: Community [place] Number: [id number], [place] [id number] Repository [address]Iey: (330) Date:2958-79-76PR [phone] () [address] [place] [address]OH: 02/26/2018 Secondary SIMI J [place] Insurance:MEDICARE WALLACEDOB: Community PART A [facility] [id number] Hospital Number: Repository [id number] Date:2018-02-26 02/26/2018 Tertiary NOT GIVENUNK [place] Insurance:SELF PAY [facility] Number: Effective Repository Date:2018-02-26 02/23/2018 Rita S Primary Insurance:UMR Rita S Pete [id number] [id number] WallaceDOB: Community [place] Number: [id number], [place] [id number] Repository [address]Ntk: (330) Date:5882-66-73UB [phone] () [address] [place] [address]DN: 02/23/2018 Secondary SIMI J [place] Insurance:MEDICARE WALLACEDOB: Community PART A [facility] [id number] Hospital Number: Repository [id number] Date:2018-02-23 02/23/2018 Tertiary NOT GIVENUNK [place] Insurance:SELF PAY [facility] Number: Effective Repository Date:2018-02-23 02/21/2018 Rita S Primary SIMI J Pete [id number] Insurance:MADDIE WALLACEDOB: [facility] Number: [id number], [place] [id number] Repository [address]Dnl: 330) Date: [phone] () [place], [place] [address]OL: 02/21/2018 Secondary Rita S [place] Insurance:UMR [address] WallaceDOB: [facility] [address]Cohnel Number: [id number] Hospital [id number] Repository Date:2008-78-72RR [address] [place] [address]AL: 02/21/2018 Tertiary SIMI J [place] Insurance:MEDICARE WALLACEDOB: Community PART A [facility] [id number] Hospital Number: Repository [id number] Date:2015-06-28 02/21/2018 Tertiary NOT GIVENUNK [place] Insurance:SELF PAY [facility] Number: Effective Repository Date:2018-02-15 02/15/2018 Rita S Primary Insurance:UMR Rita Phamoster [id number] [id number] WallaceDOB: [facility] Number: [id number], [place] [id number] Repository [address]Bka: 330) Date:1758-34-16XW [phone] () [address] [place] [address]JC: 02/15/2018 Secondary SIMI J [place] Insurance:MEDICARE WALLACEDOB: Community PART A olic [id number] Hospital Number: Repository [id number] Date:2018-02-15 02/15/2018 Tertiary NOT GIVENUNK Pete Insurance:SELF PAY [facility] Number: Effective Repository Date:2018-02-15 02/14/2018 Rita S Primary Insurance:UMR Rita S [place] [id number] [id number] WallaceDOB: [facility] Number: [id number], [place] [id number] Repository [address]Fro: 330) Date:1309-45-56LE [phone] () [address] [place] [phone]: 02/14/2018 Secondary SIMI J [place] Insurance:MEDICARE WALLACEDOB: Community PART A olic [id number] Hospital Number: Repository [id number] Date:2018-01-21 02/14/2018 Tertiary NOT GIVENUNK [place] Insurance:SELF PAY [facility] Number: Effective Repository Date:2018-01-21 02/14/2018 Rita S Primary Insurance:UMR Rita Chris [place] [id number] [id number] WallaceDOB: [facility] Number: [id number], [place] [id number] Repository [address]Myi: (330) Date:9814-88-95MR [phone] () [address] [place] [address]UK: 02/14/2018 Secondary SIMI J [place] Insurance:MEDICARE WALLACEDOB: Community PART A olic [id number] Hospital Number: Repository [id number] Date:2018-01-21 02/14/2018 Tertiary NOT GIVENUNK [place] Insurance:SELF PAY [facility] Number: Effective Repository Date:2018-02-14 02/09/2018 Rita S Primary Insurance:UMR Rita S Pete [id number] [id number] WallaceDOB: [facility] Number: [id number], [place] [id number] Repository [address]Jmd: (522) Date:1172-20-25UC [phone] () [address] [place] [address]KI: 02/09/2018 Secondary SIMI J [place] Insurance:MEDICARE WALLACEDOB: Community PART A olicy [id number] Hospital Number: Repository [id number] Date:2017-09-07 02/09/2018 Tertiary NOT GIVENUNK [place] Insurance:SELF PAY Community [facility] Number: Effective Repository Date:2017-09-07 02/02/2018 RITA S Primary Insurance:UMR RITA S [place] [id number] [id number] WALLACEDOB: [facility] Number: [id number], [place] [id number] Repository [address]Ruz: (330) Date:4228-34-51PM [phone] () [address] [place] [address]VV: 02/02/2018 Secondary SIMI J [place] Insurance:MEDICARE WALLACEDOB: Community PART A [facility] [id number] Hospital Number: Repository [id number] Date:2018-02-02 02/02/2018 Tertiary NOT GIVENUNK [place] Insurance:SELF PAY [facility]: Effective Repository Date:2018-02-02 01/19/2018 Rita S Primary Insurance:UMR Rita S [place] [id number] [id number] WallaceDOB: [facility] Number: [id number], [place] [id number] Repository [address]Faz: 330) Date:2344-68-34DY [phone] () [address] [place] [address]RG: 01/19/2018 Secondary SIMI J [place] Insurance:MEDICARE WALLACEDOB: Community PART A [facility] [id number] Hospital Number: Repository [id number] Date:2018-01-12 01/19/2018 Tertiary NOT GIVENUNK [place] Insurance:SELF PAY [facility] Number: Effective Repository Date:2018-01-19 01/10/2018 Rita S Primary Insurance:UMR Rita S [place] [id number] [id number] WallaceDOB: Community [place] Number: [id number], [place] [id number] Repository [address]Rqn: (330) Date:6989-46-60ZJ [phone] () [address] [place], [place] [address]WP: 01/10/2018 Secondary SIMI J [place] Insurance:MEDICARE WALLACEDOB: Community PART A [facility] [id number] Hospital Number: Repository [id number] Date:2018-01-04 01/10/2018 Tertiary NOT GIVENUNK [place] Insurance:SELF PAY [facility] Number: Effective Repository Date:2018-01-04 01/10/2018 Rita S Primary Insurance:UMR Rita S [place] [id number] [id number] WallaceDOB: Community [place] Number: [id number], [place] [id number] Repository [address]Umi: 330) Date:5451-37-11BL [phone] () [address] [place] [address]KL: 01/10/2018 Secondary SIMI J [place] Insurance:MEDICARE WALLACEDOB: Community PART A [facility] [id number] Hospital Number: Repository [id number] Date:2018-01-04 01/10/2018 Tertiary NOT GIVENUNK [place] Insurance:SELF PAY [facility] Number: Effective Repository Date:2018-01-10 01/03/2018 Rita S Primary Insurance:UMR Rita S [place] [id number] [id number] WallaceDOB: Community [place] Number: [id number], [place] [id number] Repository [address]Zun: (330) Date:3257-14-73VG [phone] () [address] [place] [phone]: 01/03/2018 Secondary SIMI J [place] Insurance:MEDICARE WALLACEDOB: Community PART A olic [id number] Hospital Number: Repository [id number] Date:2017-12-21 01/03/2018 Tertiary NOT GIVENUNK [place] Insurance:SELF PAY Community [facility] Number: Effective Repository Date:2018-01-03 12/31/2017 Rita S Primary Insurance:UMR Rita Chris [place] [id number] [id number] WallaceDOB: Community [place] Number: [id number], [place] [id number] Repository [address]Emo: (330) Date:7877-47-36TM [phone] () [address] [place], [place] [address]WP: 12/31/2017 Secondary SIMI J [place] Insurance:MEDICARE WALLACEDOB: Community PART A olic [id number] Hospital Number: Repository [id number] Date:2017-12-20 12/31/2017 Tertiary NOT GIVENUNK [place] Insurance:SELF PAY Community [facility] Number: Effective Repository Date:2017-12-20 10/13/2017 Rita S Primary Insurance:UMR Rita Chris [place] [id number] [id number] WallaceDOB: Community [place] Number: [id number], [place] [id number] Repository [address]Qgv: (330) Date:3282-41-22KN [phone] () [address] [place] [phone]: 10/13/2017 Secondary SIMI J [place] Insurance:MEDICARE WALLACEDOB: Community PART A olic [id number] Hospital Number: Repository [id number] Date:2017-10-13 10/13/2017 Tertiary NOT GIVENUNK [place] Insurance:SELF PAY Community [facility] Number: Effective Repository Date:2017-10-13 09/30/2017 Rita S Primary Insurance:UMR Rita Chris [place] [id number] [id number] WallaceDOB: Community [place] Number: [id number], [place] [id number] Repository [address]Kpp: (330) Date:7625-16-47ZF [phone] () [address] [place] [address]DB: 09/30/2017 Secondary SIMI J [place] Insurance:MEDICARE WALLACEDOB: Community PART A BPolicy [id number] Hospital Number: Repository [id number] Date:2017-09-07 09/30/2017 Tertiary NOT GIVENUNK [place] Insurance:SELF PAY Community [facility] Effective Repository Date:2017-09-07 09/06/2017 Rita S Primary Insurance:UMR Rita Chris [place] [id number] [id number] WallaceDOB: Community [place] Number: [id number], [place] [id number] Repository [address]Vug: 330) Date:3864-26-10MD [phone] () [address] [place] [phone]: 09/06/2017 Secondary SIMI J [place] Insurance:MEDICARE WALLACEDOB: Community PART A olicy [id number] Hospital Number: Repository [id number] Date:2017-09-06 09/06/2017 Tertiary NOT GIVENUNK [place] Insurance:SELF PAY Community [facility] Number: Effective Repository Date:2017-09-06 07/27/2017 Rita Chris Primary Insurance:UMR Rita Chris [place] [id number] [id number] WallaceDOB: Community [place] Number: [id number], [place] [id number] Repository [address]Gcp: 330) Date:3833-16-49QI [phone] (HP) [address] [place] [address]KF: 07/27/2017 Secondary SIMI J [place] Insurance:MEDICARE WALLACEDOB: Community PART A olicy [id number] Hospital Number: Repository [id number] Date:2017-07-27 07/27/2017 Tertiary NOT GIVENUNK [place] Insurance:SELF PAY Community [facility]: Effective Repository Date:2017-07-27
== END 2018-07-18 23:50 ==
LOC: ED 07-18 03:15 → ICU 07-18 03:34
PROVIDERS: Internal Medicine Critical Care Medicine; Admitting Provider Family Medicine; Emergency Provider Emergency Medicine; Family Provider Internal Medicine; PCP Internal Medicine; Referring Provider Family Medicine; Visit Provider Internal Medicine
DX: T55.0X2A Toxic effect of soaps, intentional self-harm, initial encounter (principal); R53.83 Other fatigue; Z23 Encounter for immunization; F31.9 Bipolar disorder, unspecified; I11.0 Hypertensive heart disease with heart failure; I50.9 Heart failure, unspecified; G47.33 Obstructive sleep apnea (adult) (pediatric); Z79.899 Other long term (current) drug therapy; Z79.01 Long term (current) use of anticoagulants; Z79.84 Long term (current) use of oral hypoglycemic drugs; Z86.718 Personal history of other venous thrombosis and embolism; F20.2 Catatonic schizophrenia; K58.9 Irritable bowel syndrome, unspecified; Z86.711 Personal history of pulmonary embolism; F41.9 Anxiety disorder, unspecified; Z87.891 Personal history of nicotine dependence; N17.9 Acute kidney failure, unspecified; E87.6 Hypokalemia; E86.0 Dehydration; E66.9 Obesity, unspecified; Z68.37 Body mass index [BMI] 37.0-37.9, adult; Z71.3 Dietary counseling and surveillance; K21.9 Gastro-esophageal reflux disease without esophagitis; E78.5 Hyperlipidemia, unspecified; E11.9 Type 2 diabetes mellitus without complications; D72.829 Elevated white blood cell count, unspecified
CPT/HCPCS: 36415; 80048; 80053; 80307; 80320; 80329; 82962; 83735; 84100; 85025; 93005; 96361; 96374; 96375; 96376; 99218; 99285; G0008; J7030; 90686; G0378; G0480; J2405

== ENCOUNTER 2018-08-16 22:17 | Emergency (ER) | payer OTHER, MEDICARE, SELFPAY ==
[2018-07-18 04:06] VITALS: BMI 37.3
[2018-08-16 22:20] VITALS: BP 107/73; PULSE 87; RESP 17; TEMP 36; O2SAT 96; BMI 37.9
--- NOTE | 2018-08-16 22:54 | ED.VISSUMM ---
- ER Visit Summary Date of Service: 08/16/18 Chief Complaint: Suicidal ideation History of Present Illness: The patient is a 48 F presenting with suicidal ideation. She states that she has been suicidal for the past few days. She states she is hearing voices that are telling her to kill herself. Her plan is to stab herself. She has history of previous suicide attempts. She states she tried to jump off a dimitry and slipped and fell several years ago. She states her psychiatric medications were recently changed. She was changed from Risperdal to Abilify. She was recently hospitalized in [place] for similar symptoms. She believes she was discharged yesterday. Physical Examination: Vitals are stable. Patient is afebrile. Alert no acute distress. HEENT exam is unremarkable. Neck is supple. Lungs are clear and equal bilaterally. Heart is regular rate and rhythm. Extremities are unremarkable. Skin is warm and dry. No focal neurologic deficit. Depressed affect. Slow to respond to questions Remainder of exam is unremarkable. Emergency Department Course and Treatment: CBC, chemistries unremarkable. HCG negative. Tox positive for methamphetamine. Alcohol negative. Discussed with the counseling center for evaluation. Disposition: Per counseling center Impression: Suicidal ideation This note was generated with [employer] dictation software. It may contain incorrect words, spelling, and punctuation that were not noted in review of the chart prior to signing ED Disposition - Plan for ED Patient: Referrals: Paty Catalan DO [Primary Care Provider] -
--- NOTE | 2018-08-16 23:28 | CM.ED ---
SOCIAL WORK NOTE PT PRESENTS TO ED VIA [facility] WITH SUICIDAL IDEATIONS AND PLAN TO STAB HERSELF. CRISIS TO EVALUATE FOR POSSIBLE PLACEMENT. PER DR. KLINE, PT REPORTS WAS JUST [facility] SARA PUENTES, SANE RN, DISTRIBUTION SALES REPRESENTATIVE.
[2018-08-16 23:36] LABS: Absolute Lymphocyte Count 2.67 X10^3/ul (0.83-4.51); Absolute Neutrophil Count 4.7 X10^3/uL (2.0-7.7); Basophil# 0.01 X10^3/uL; Basophil% 0.1 % (0-1); Eosinophil# 0.27 X10^3/uL; Eosinophils% 3.1 % (0-5); Hematocrit 36.7 % (37-47); Hemoglobin 11.7 g/dl (12.0-15.0); Lymphocyte # 2.67 X10^3/ul (4.0); Lymphocyte % 31.1 % (19-41); Mean Corp Hgb Conc 31.9 g/gl (32-36); Mean Corpuscular Hgb 30.6 pg (27.0-32.0); Mean Corpuscular Volume 96.1 fL (81-99); Mean Platelet Vol. 9.8 fl (6.2-12.0); Monocyte# 0.96 X10^3/uL; Monocyte% 11.2 % (0-10); Neutrophil # 4.67 X10^3/uL (2.7-7.7); Neutrophil % 54.4 % (47-70); Platelet Count 210 K/mm3 (150-450); RBC Distribution Width CV 12.3 % (11.6-14.6); RBC Distribution Width SD 41.9 fl (35.1-43.9); Red Blood Count 3.82 M/mm3 (4.2-5.4); White Blood Count 8.6 K/mm3 (4.4-11.0)
[2018-08-16 23:39] LABS: POSITIVE COUNT NO; POSITIVE DIFFERENTIAL NO; POSITIVE MORPHOLOGY NO
[2018-08-16 23:47] LABS: Anion Gap 6 (5-15); BUN 17 mg/dL (7-18); BUN/Creat Ratio 22.1 RATIO (10-20); Calcium,Total 7.7 mg/dL (8.5-10.1); Chloride 109 mmol/L (98-107); Creatinine, Serum 0.77 mg/dL (0.55-1.02); EST Glomerular Filtration Rate 84 mL/min (>60); Est Glom Filt Rate - Afr Amer 102 mL/min (>60); Estimated Creatinine Clearance 75.48 ml/min; Glucose 105 mg/dL (74-106); Potassium 3.8 mmol/L (3.5-5.1); Sodium Level 140 mmol/L (136-145)
[2018-08-16 23:53] LABS: Pregnancy, Serum, hCG Quali. NEGATIVE Negative (0-9 Nonpreg)
[2018-08-17] VITALS (20 sets, daily range): BP systolic 103–113; BP diastolic 58–83; PULSE 60–84; RESP 12–20; O2SAT 98–100
[2018-08-17 00:17] LABS: Amphetamine Urine VISTA NEGATIVE (<1000 ng/mL); Barbiturate Urine VISTA NEGATIVE (< 200 ng/mL); Benzodiazepine Urine VISTA NEGATIVE (< 200 ng/mL); Cocaine Urine VISTA NEGATIVE (< 300 ng/mL); Ecstacy Urine VISTA POSITIVE (< 500 ng/mL); Methadone Urine VISTA NEGATIVE (< 300 ng/mL); PCP Urine VISTA NEGATIVE (< 25 ng/mL); THC Urine VISTA NEGATIVE (< 50 ng/mL); Vista UDS pH Range 5
--- NOTE | 2018-08-17 00:24 | ED.RN ---
CALLED CRISIS TO ADVISE THIS PT IS READY TO BE SEEN, ON HOLD FOR GREATER THAN TEN MINUTES, UNABLE TO ADVISE
--- NOTE | 2018-08-17 00:40 | ED.RN ---
CRISIS NOTIFIED BY Vargas MCKAY RN
--- NOTE | 2018-08-17 01:52 | ED.RN ---
CRISIS ON SITE, ONE PT TO SEE BEFORE THIS ONE
--- NOTE | 2018-08-17 09:34 | ED.RN ---
[facility] CALLED, STATES THAT BECAUSE SHE REFUSED TO CONTRACT WITH A SAFETY PLAN, AND WAS UNSUCCESSFUL WITH HELPING HER WITH HER LAST VISIT, THEY REFUSE TO ADMIT HER. ALSO THERE IS NOT ENOUGH STAFF FOR THEM TO BE 1-1 WITH HER. GORDON FRYE AT [facility], SHE IS LOOKING FOR DIFFERENT PLACEMENT.
[2018-08-17] MEDS: LORazepam 1 MG Tablet PO (16:18)
--- NOTE | 2018-08-17 18:26 | ED.RN ---
[facility]ON CALLED FROM THE [facility] AND SAID THEY WONT BE ABLE TO DO ANYTHING WITH [facility] UNTIL TOMORROW. SHE HAS BEEN DENIED EVERYWHERE.
[2018-08-18] VITALS (10 sets, daily range): BP systolic 96–110; BP diastolic 60–75; PULSE 66–85; RESP 14–18; O2SAT 94–99
--- NOTE | 2018-08-18 04:16 | ED.RN ---
I was reviewing pts MAR to see what meds she needed in am, no home meds have been ordered. Spoke with Dr. Moraes who gave verbal orders for all home meds. Diet order placed.
[2018-08-18] MEDS: DULoxetine Hcl 30 MG Capsule PO (06:26)
--- NOTE | 2018-08-18 08:21 | ED.RN ---
talked with bria from [facility]. pt has been turned down by[address] [place] [address] in [place]. last night [facility] called [facility] and was told they had no beds but to try back in the am after discharges. [facility] currently waiting consulting nurse back from [facility]. if refused there pt will be referred to [facility]. per bria from [facility] refused pt d/t just being discharged but they are checking to see if they are able to by law
[2018-08-18] MEDS: ARIPiprazole 5 MG Tablet PO (10:20)
[2018-08-18] MEDS: Carvedilol 3.125 MG TABLET PO (10:20)
[2018-08-18] MEDS: APIXABAN 5 MG TABLET PO (10:20)
--- NOTE | 2018-08-18 11:22 | CM.ED ---
SOCIAL WORK NOTE CALL TO [facility]. LEFT MESSAGE FOR INTAKE TO INQUIRE ABOUT STATUS OF REFERRAL AND BED AVAILABILITY. AWAITING CALL BACK. SARA PUENTES, BETTING CLERKS, CHILDREN'S ENTERTAINER.
--- NOTE | 2018-08-18 11:31 | CM.ED ---
SOCIAL WORK NOTE RECEIVED CALL BACK FROM BALANCING MACHINE SET UP WORKER AT [facility]. THEY DO ANTICIPATE DISCHARGES THIS DAY AND REPORT RECEIVED REFERRAL FROM [facility] ABOUT 10 MINUTES AGO. PER WORKER, THEY ARE REVIEWING REFERRAL AT THIS TIME. SARA PUENTES, PHYSICIAN SUPPORT COORDINATOR, MOLD CONSTRUCTION SUPERVISOR.
--- NOTE | 2018-08-18 11:43 | CM.ED ---
SOCIAL WORK NOTE RECEIVED CALL BACK FROM [facility]. PER [facility], PT DOES LOOK LIKE A GOOD PT FOR THEIR FACILITY. WILL NEED TO REVIEW WITH PHYSICIAN AND CHECK BENEFITS. WILL UPDATE THIS WORKER. NURSING UPDATED AT THIS TIME ON THE ABOVE. SARA PUENTES, HEAD BOOKKEEPER, FRACTIONATING STILL OPERATOR.
--- NOTE | 2018-08-18 13:06 | ED.RN ---
Elin from [facility] called this rn. pt has been accepted at [facility] per Dr Vincent Hernandez.. phone [phone]. pt cannot arrive at [facility] prior to 1637
--- NOTE | 2018-08-18 13:16 | NURSING ---
CALLED [facility] FOR [facility]. ETA IS BETWEEN 1630 AND 1700
--- NOTE | 2018-08-18 16:11 | ED.RN ---
have attempted to call report to [facility] x 2. no answer. message left
--- NOTE | 2018-08-18 17:57 | ED.RN ---
report given to rn at [address] [place] [address]. pt remains calm and cooperative
== END 2018-08-18 17:17 ==
LOC: ED 23:19
PROVIDERS: Emergency Provider Emergency Medicine; Family Provider Internal Medicine; PCP Internal Medicine
DX: R45.851 Suicidal ideations (principal); I11.0 Hypertensive heart disease with heart failure; I50.9 Heart failure, unspecified; F32.9 Major depressive disorder, single episode, unspecified; F20.9 Schizophrenia, unspecified; F31.9 Bipolar disorder, unspecified; Z91.5 Personal history of self-harm; Z79.01 Long term (current) use of anticoagulants; Z79.84 Long term (current) use of oral hypoglycemic drugs; Z79.899 Other long term (current) drug therapy
CPT/HCPCS: 80048; 80307; 80320; 84703; 85025; 99285; G0480

== ENCOUNTER 2018-09-19 21:35 | Emergency (ER) | payer OTHER, MEDICARE, SELFPAY ==
[2018-09-19 21:36] VITALS: BP 137/85; PULSE 95; RESP 18; TEMP 36.9; O2SAT 96; BMI 29.0
--- NOTE | 2018-09-19 21:57 | ED.RN ---
PT IS WAITING IN TRIAGE ROOM UNTIL A ROOM IS AVAILABLE. HRO WITH PT.
[2018-09-19 21:58] LABS: Absolute Lymphocyte Count 2.61 X10^3/ul (0.83-4.51); Absolute Neutrophil Count 6.1 X10^3/uL (2.0-7.7); Basophil# 0.01 X10^3/uL; Basophil% 0.1 % (0-1); Eosinophil# 0.26 X10^3/uL; Eosinophils% 2.7 % (0-5); Hematocrit 38.3 % (37-47); Lymphocyte # 2.61 X10^3/ul (4.0); Lymphocyte % 27.4 % (19-41); Mean Corp Hgb Conc 33.9 g/gl (32-36); Mean Corpuscular Volume 91.4 fL (81-99); Mean Platelet Vol. 10.2 fl (6.2-12.0); Monocyte# 0.56 X10^3/uL; Monocyte% 5.9 % (0-10); Neutrophil # 6.08 X10^3/uL (2.7-7.7); Neutrophil % 63.8 % (47-70); POSITIVE COUNT NO; POSITIVE DIFFERENTIAL NO; POSITIVE MORPHOLOGY NO; Platelet Count 213 K/mm3 (150-450); RBC Distribution Width CV 13.1 % (11.6-14.6); RBC Distribution Width SD 43.5 fl (35.1-43.9); Red Blood Count 4.19 M/mm3 (4.2-5.4); White Blood Count 9.5 K/mm3 (4.4-11.0)
--- NOTE | 2018-09-19 22:01 | ED.RN ---
TROY GALLEGOS CALLED, SHE IS THIS PT MOTHER LEFT THE NUMBER [phone], IS AT WORK CELL [phone]. MOTHER REQUESTS NOTIFICATION WITH STATUS UPDATES.
[2018-09-19 22:11] LABS: Anion Gap 6 (5-15); BUN 15 mg/dL (7-18); BUN/Creat Ratio 17.3 RATIO (10-20); Calcium,Total 8.1 mg/dL (8.5-10.1); Chloride 109 mmol/L (98-107); Creatinine, Serum 0.87 mg/dL (0.55-1.02); EST Glomerular Filtration Rate 73 mL/min (>60); Est Glom Filt Rate - Afr Amer 89 mL/min (>60); Estimated Creatinine Clearance 75.23 ml/min; Glucose 97 mg/dL (74-106); Potassium 3.5 mmol/L (3.5-5.1); Sodium Level 140 mmol/L (136-145)
[2018-09-19 22:17] LABS: Pregnancy, Serum, hCG Quali. NEGATIVE Negative (0-9 Nonpreg)
[2018-09-19 22:50] LABS: Alcohol, Blood (Medical)-Serum < 3.0 mg/dL
[2018-09-19 23:20] LABS: Amphetamine Urine VISTA NEGATIVE (<1000 ng/mL); Barbiturate Urine VISTA NEGATIVE (< 200 ng/mL); Benzodiazepine Urine VISTA NEGATIVE (< 200 ng/mL); Cocaine Urine VISTA NEGATIVE (< 300 ng/mL); Ecstacy Urine VISTA NEGATIVE (< 500 ng/mL); Methadone Urine VISTA NEGATIVE (< 300 ng/mL); PCP Urine VISTA NEGATIVE (< 25 ng/mL); THC Urine VISTA NEGATIVE (< 50 ng/mL); Vista UDS pH Range 6
--- NOTE | 2018-09-19 23:52 | ED.RN ---
PATIENT DOES NOT KNOW HER MEDICATIONS. I ASKED CRISIS IF THEY KNEW THE MEDICATIONS AND SHE SAID WHEN SHE GOT BACK TO THE OFFICE THEY WOULD FAX THEM TO US IF THEY HAVE THEM.
[2018-09-20] VITALS (9 sets, daily range): BP systolic 96–104; BP diastolic 52–75; PULSE 68–86; RESP 14–20; TEMP 36.2–36.8; O2SAT 95–99
--- NOTE | 2018-09-20 03:54 | ED.RN ---
THIS NURSE ORDERED A BREAKFAST TRAY FOR THE PATIENT.
--- NOTE | 2018-09-20 05:16 | ED.RN ---
PATIENT IS WAITING FOR REVIEW FROM [facility] AT THIS TIME
--- NOTE | 2018-09-20 05:32 | ED.DCSUM_ITS ---
- ER Visit Summary Date of Service: 09/20/18 Chief Complaint: Hallucinations, anxiety, suicidal ideation History of Present Illness: The patient is a 48 F who presents with suicidal ideation, hallucinations, anxiety. She was pink slipped by police. She states that especially today she has had increased suicidal thoughts. She complains of increased auditory hallucinations saying to hurt her self. Denies any thoughts of hurting L's. She denies any recent medical illness such as fever chest pain shortness of breath abdominal pain nausea vomiting diarrhea. Physical Examination: Afebrile vitals normal Moist mucous membranes Heart regular rate and rhythm Lungs clear Abdomen soft Alert and oriented Patient has blunted affect she endorses suicidal thoughts and auditory hallucinations She does not appear internally stimulated Test Results: CBC BMP unremarkable. Urine drug screen negative. Alcohol negative. negative. Emergency Department Course and Treatment: Medical clearance workup as above unremarkable. Patient was evaluated by crisis. I do feel she will require placement. They are working on arranging acceptance to psychiatric facility at this time. Treatment Plan: [] Disposition: Transfer Impression: Rose ideation Auditory hallucinations This note was generated with [employer] dictation software. It may contain incorrect words, spelling, and punctuation that were not noted in review of the chart prior to signing ED Disposition - Plan for ED Patient: Referrals: Paty Catalan DO [Primary Care Provider] -
--- NOTE | 2018-09-20 07:23 | ED.RN ---
Addendum entered by Marilu Green 09/20/18 07:27: STATES THAT ACCORDING TO HER RECENT DC INSTRUCTIONS [facility] WAS DISCONTINUED BUT IT STILL CAME IN PILL [facility] AND [facility] HAS CONTINUED TO TAKE IT. HE WAS UNSURE WHAT HER SUGARS HAVE BEEN RUNNING Original Note: PER REPORT HAS BEEN UNSUCCESSFUL AFTER SEVERAL ATTEMPTS TO OBTAIN MED LIST. 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 BOOM READ OFF MEDS FROM PILL PACK VIA PHONE TO THIS NURSE
[2018-09-20] MEDS: Docusate Sodium 100 MG Capsule 200 MG PO (10:17)
[2018-09-20] MEDS: Carvedilol 3.125 MG TABLET PO (10:18)
[2018-09-20] MEDS: APIXABAN 5 MG TABLET PO (10:18)
[2018-09-20] MEDS: QUEtiapine 100 MG Tablet 400 MG PO (10:19)
[2018-09-20] MEDS: DULoxetine Hcl 60 MG Capsule PO (10:19)
[2018-09-20] MEDS: Meloxicam 15 MG Tablet PO (10:19)
--- NOTE | 2018-09-20 11:04 | ED.RN ---
WINSTON CALLED FORM THE COUNSELING ROSALVA SHE IS CALLING [facility] TO SEE WHAT IS GOING ON.
--- NOTE | 2018-09-20 13:52 | EKG12_ITS ---
Test Reason : MENTAL HEALTH Blood Pressure : / mmHG Vent. Rate : 100 BPM Atrial Rate : 100 BPM P-R Int : 142 ms QRS Dur : 082 ms QT Int : 376 ms P-R-T Axes : 030 008 024 degrees QTc Int : 485 ms Normal sinus rhythm Prolonged QT Abnormal ECG Confirmed by ERROL GONZALEZ MD ([id number]), associate editor MAGGI NORMAN ([id number]) on 09/22/2018 12:50:08 PM Referred By: IAN Confirmed By:ERROL GONZALEZ MD
[2018-09-20 15:01] LABS: Bacteria 0 SEEN /hpf (None Seen); Mucous, Urine 0 SEEN /hpf (<or=2+); Red Blood Cells-Urine 0 SEEN /hpf (0-5); White Blood Cells 0 SEEN /hpf (0-5)
[2018-09-20 15:01] LABS: Bedside Glucose 96 mg/dL (70-110)
[2018-09-20 15:02] LABS: Color, Urine Yellow (Yellow); Glucose, Dipstick Normal (Normal); Ketone-Dipstick Negative (Negative); Leukocyte Esterase-Dipstick Negative /ul (Negative); Nitrite-Dipstick Negative (Negative); Occult Blood-Urine Negative /ul (Negative); Protein-Dipstick Negative (Negative); Urine Bilirubin Dipstick Negative (Negative); Urine Clarity Clear (Clear); Urine Urobilinogen Normal (Normal)
[2018-09-20 15:08] LABS: Squamous Epithelial Cells - UA 0-5 SEEN /hpf (5-10)
--- NOTE | 2018-09-20 15:38 | ED.RN ---
RN NOTIFIED BY SITTER PT ACTING A LITTLE GROGGY. BLOOD GLUCOSE CHECKED, 96- SPRITE AND CHEESE GIVEN. RECHECKED FOR 111 LATER. PT RESTING IN BED, WOULD NOT OPEN EYES TO THIS RN CALLING NAME, RESPONDED VERBALLY. SMELLING SALTS HELD UNDER PT'S NOSE, PT OPENED EYES, STATED I'M OK. PT AMBULATED TO BATHROOM WITH SBA WITHOUT DIFFICULTY. APPEARS AWAKE AT THIS TIME, RESPONDS APPROPRIATELY TO QUESTIONS, ORIENTED X4. MD UPDATED, NO NEW ORDERS.
[2018-09-20 15:41] LABS: Bedside Glucose 111 mg/dL (70-110)
--- NOTE | 2018-09-20 15:44 | ED.RN ---
[facility] CALLED, STATE PT IS ACCEPTED, WILL CALL BACK WITH ADMITTING INFO AFTER THEY RECEIVE UA FAXED. UA BEING FAXED AT THIS TIME. [facility] ALSO STATE THEY WILL ARRANGE FOR TRANSPORTATION.
== END 2018-09-20 16:38 ==
PROVIDERS: Emergency Medicine; Emergency Provider Emergency Medicine; Family Provider Internal Medicine; PCP Internal Medicine
DX: R45.851 Suicidal ideations (principal); F25.9 Schizoaffective disorder, unspecified; F41.9 Anxiety disorder, unspecified; E11.9 Type 2 diabetes mellitus without complications; I11.0 Hypertensive heart disease with heart failure; I50.9 Heart failure, unspecified; Z86.718 Personal history of other venous thrombosis and embolism; Z86.711 Personal history of pulmonary embolism; Z79.01 Long term (current) use of anticoagulants; Z79.84 Long term (current) use of oral hypoglycemic drugs; Z79.899 Other long term (current) drug therapy
CPT/HCPCS: 36415; 80048; 80307; 80320; 81001; 82962; 84703; 85025; 93005; 99285; G0480

== ENCOUNTER 2018-10-03 02:37 | Emergency (ER) | payer OTHER, MEDICARE, SELFPAY ==
[2018-10-03] VITALS (7 sets, daily range): BP systolic 87–119; BP diastolic 66–81; PULSE 61–87; RESP 12–17; TEMP 36.6; O2SAT 96–99; BMI 35.2
[2018-10-03 03:03] LABS: Absolute Lymphocyte Count 1.88 X10^3/ul (0.83-4.51); Absolute Neutrophil Count 5.3 X10^3/uL (2.0-7.7); Basophil# 0.02 X10^3/uL; Basophil% 0.2 % (0-1); Eosinophil# 0.21 X10^3/uL; Eosinophils% 2.6 % (0-5); Hematocrit 36.9 % (37-47); Hemoglobin 12.5 g/dl (12.0-15.0); Lymphocyte # 1.88 X10^3/ul (4.0); Lymphocyte % 23.2 % (19-41); Mean Corp Hgb Conc 33.9 g/gl (32-36); Mean Corpuscular Volume 91.6 fL (81-99); Mean Platelet Vol. 10.1 fl (6.2-12.0); Monocyte# 0.71 X10^3/uL; Monocyte% 8.8 % (0-10); Neutrophil # 5.26 X10^3/uL (2.7-7.7); Neutrophil % 65.1 % (47-70); Platelet Count 219 K/mm3 (150-450); RBC Distribution Width CV 12.7 % (11.6-14.6); RBC Distribution Width SD 41.3 fl (35.1-43.9); Red Blood Count 4.03 M/mm3 (4.2-5.4); White Blood Count 8.1 K/mm3 (4.4-11.0)
[2018-10-03 03:04] LABS: POSITIVE COUNT NO; POSITIVE DIFFERENTIAL NO; POSITIVE MORPHOLOGY NO
[2018-10-03 03:14] LABS: Vista UDS pH Range 5
[2018-10-03 03:17] LABS: Anion Gap 8 (5-15); BUN 13 mg/dL (7-18); BUN/Creat Ratio 12.3 RATIO (10-20); Calcium,Total 8.5 mg/dL (8.5-10.1); Chloride 108 mmol/L (98-107); Creatinine, Serum 1.06 mg/dL (0.55-1.02); EST Glomerular Filtration Rate 58 mL/min (>60); Est Glom Filt Rate - Afr Amer 70 mL/min (>60); Estimated Creatinine Clearance 61.75 ml/min; Glucose 126 mg/dL (74-106); Potassium 3.8 mmol/L (3.5-5.1); Sodium Level 141 mmol/L (136-145)
[2018-10-03 03:25] LABS: Amphetamine Urine VISTA NEGATIVE (<1000 ng/mL); Barbiturate Urine VISTA NEGATIVE (< 200 ng/mL); Benzodiazepine Urine VISTA NEGATIVE (< 200 ng/mL); Cocaine Urine VISTA NEGATIVE (< 300 ng/mL); Ecstacy Urine VISTA NEGATIVE (< 500 ng/mL); Methadone Urine VISTA NEGATIVE (< 300 ng/mL); PCP Urine VISTA NEGATIVE (< 25 ng/mL); THC Urine VISTA NEGATIVE (< 50 ng/mL)
--- NOTE | 2018-10-03 03:33 | ED.VISSUMM ---
- ER Visit Summary Date of Service: 10/03/18 Chief Complaint: Depressed and suicidal History of Present Illness: The patient is a 48 F history of depression, schizophrenia and pyg-bauigzh-nmfupzkki diabetes. Patient states she has been hearing voices telling her to harm herself. She did not act on those at this time. But she was concerned she might. She has had recent psychiatric hospitalization in August. She has had prior attempts. Physical Examination: Middle-aged female. No acute distress. Vital signs are stable and afebrile. H EENT exam atraumatic. No smell of alcohol. No signs of toxidrome. No signs of trauma. Neck nontender. No trauma. Lungs clear to auscultation bilaterally. Heart regular rate and rhythm no murmur. Chest wall nontender. Abdomen soft and nontender. Normal bowel sounds no peritoneal signs. Patient moving all 4 extremities. No wounds. Neurovascular intact. Normal kosher butcher strength. Dorsi plantar flexion intact. Back nontender. Neurologically she is awake and alert with no focal motor deficits. She does not appear intoxicated. Test Results: ED mental health workup. CBC normal with a white count 8. Chemistries normal with a creatinine of 1. test negative. Tox screen negative. Alcohol negative. Emergency Department Course and Treatment: Patient undergo a crisis evaluation for depression and suicidal ideation. Treatment Plan: [] Disposition: Once crisis evaluation performed Impression: Acute suicidal ideation Acute exacerbation of depression and schizophrenia History of diabetes This note was generated with [employer] dictation software. It may contain incorrect words, spelling, and punctuation that were not noted in review of the chart prior to signing ED Disposition - Plan for ED Patient: Referrals: Paty Catalan DO [Primary Care Provider] -
--- NOTE | 2018-10-03 03:33 | NURSING ---
CALLED [facility] AT [phone]
[2018-10-03 03:51] LABS: Alcohol, Blood (Medical)-Serum < 3.0 mg/dL
[2018-10-03 03:57] LABS: Pregnancy, Serum, hCG Quali. NEGATIVE Negative (0-9 Nonpreg)
--- NOTE | 2018-10-03 06:05 | ED.RN ---
SEROQUEL XR IS NON-FORMULARY AND ACCORDING TO OLY PHARMD, THERE IS NO DIRECT SUBSTITUTION, ESPECIALLY FOR BID DOSING. PT BROUGHT HOME MEDS AND DR. AGUIAR OKAYED USING HOME MEDS. HOME MED BLISTER PACKS WERE SENT TO PHARMACY FOR OLY TO VERIFY AND PRINT SCANNING LABELS.
--- NOTE | 2018-10-03 06:31 | ED.RN ---
BLISTER PACK SENT BACK FROM PHARMACY AND PLACED IN BAG WITH PTS PURSE, SECURED IN BLACK TOTE.
--- NOTE | 2018-10-03 08:05 | NURSING ---
0746 ACCEPTED AT [facility] [address] NEETU FRYE, CRISIS, WILL FAX PINK SLIP TO THEM
[2018-10-03] MEDS: APIXABAN 5 MG TABLET PO (08:10)
[2018-10-03] MEDS: Carvedilol 3.125 MG TABLET PO (08:10)
[2018-10-03] MEDS: DULoxetine Hcl 60 MG Capsule PO (08:10)
[2018-10-03] MEDS: Docusate Sodium 100 MG Capsule 200 MG PO (08:10)
--- NOTE | 2018-10-03 08:26 | ED.RN ---
PATIENT ACCEPTED TO [facility]. 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 CALL REPORT AT [phone].
--- NOTE | 2018-10-03 12:24 | ED.RN ---
CALLED PER PATIENT REQUEST AND MESSAGE LEFT.
--- NOTE | 2018-10-03 12:44 | PCA ---
CALLED [facility] TO FIND OUT WHERE THE SQUAD WAS THEY SAID IT WAS ABOUT 25 MIN OUT
== END 2018-10-03 13:30 ==
PROVIDERS: Emergency Provider Emergency Medicine; Family Provider Internal Medicine; PCP Internal Medicine
DX: F32.9 Major depressive disorder, single episode, unspecified (principal); F20.9 Schizophrenia, unspecified; R45.851 Suicidal ideations; E11.9 Type 2 diabetes mellitus without complications; Z79.899 Other long term (current) drug therapy; Z79.01 Long term (current) use of anticoagulants; Z79.84 Long term (current) use of oral hypoglycemic drugs
CPT/HCPCS: 36415; 80048; 80307; 80320; 84703; 85025; 99284; G0480

== ENCOUNTER 2018-12-12 20:42 | Emergency (ER) | payer OTHER, MEDICARE, SELFPAY ==
[2018-10-03 02:40] VITALS: BMI 35.2
[2018-12-12 20:43] VITALS: BP 114/78; PULSE 94; RESP 16; TEMP 36.6; O2SAT 98; BMI 40.8
--- NOTE | 2018-12-12 21:39 | CM.ED ---
SOCIAL WORK DISCUSSED CASE WITH DR. RODRÍGUEZ. CRISIS TO EVALUATE ONCE MEDICALLY CLEARED. SARA PUENTES, IT ADMIN, MARINE ENGINEER CPVEC.
[2018-12-12 21:43] LABS: Basophil# 0.01 X10^3/uL; Basophil% 0.1 % (0-1); Eosinophil# 0.26 X10^3/uL; Hematocrit 40.6 % (37-47); Hemoglobin 13.5 g/dl (12.0-15.0); Lymphocyte % 29.2 % (19-41); Mean Corp Hgb Conc 33.3 g/gl (32-36); Mean Corpuscular Hgb 30.6 pg (27.0-32.0); Mean Corpuscular Volume 92.1 fL (81-99); Mean Platelet Vol. 9.9 fl (6.2-12.0); Monocyte# 0.72 X10^3/uL; Monocyte% 8.4 % (0-10); Neutrophil # 5.04 X10^3/uL (2.7-7.7); Neutrophil % 59.1 % (47-70); Platelet Count 232 K/mm3 (150-450); RBC Distribution Width CV 12.1 % (11.6-14.6); RBC Distribution Width SD 41.1 fl (35.1-43.9); Red Blood Count 4.41 M/mm3 (4.2-5.4); White Blood Count 8.6 K/mm3 (4.4-11.0)
[2018-12-12 21:45] LABS: POSITIVE COUNT NO; POSITIVE DIFFERENTIAL NO; POSITIVE MORPHOLOGY NO
[2018-12-12 21:46] LABS: Prothrombin Time (Protime)PT. 12.7 SECONDS (11.7-14.9)
[2018-12-12 21:47] LABS: Partial Thromboplast Time 29.2 Seconds (24.1-36.2)
[2018-12-12 21:48] LABS: Internal QC Validated? YES +Cl - CLEAR BKGD; Pregnancy, Serum, hCG Quali. NEGATIVE Negative
[2018-12-12 21:56] LABS: Alcohol, Blood (Medical)-Serum < 3.0 mg/dL
[2018-12-12 22:02] LABS: Anion Gap 8 (5-15); BUN 18 mg/dL (7-18); BUN/Creat Ratio 14.4 RATIO (10-20); Calcium,Total 8.7 mg/dL (8.5-10.1); Chloride 102 mmol/L (98-107); Creatinine, Serum 1.25 mg/dL (0.55-1.02); EST Glomerular Filtration Rate 48 mL/min (>60); Est Glom Filt Rate - Afr Amer 58 mL/min (>60); Glucose 105 mg/dL (74-106); Potassium 3.7 mmol/L (3.5-5.1); Sodium Level 138 mmol/L (136-145); Thyroid Stim Hormone (TSH) 1.78 uIU/mL (0.358-3.74)
[2018-12-12 22:05] LABS: Amphetamine Urine VISTA NEGATIVE (<1000 ng/mL); Barbiturate Urine VISTA NEGATIVE (< 200 ng/mL); Benzodiazepine Urine VISTA NEGATIVE (< 200 ng/mL); Cocaine Urine VISTA NEGATIVE (< 300 ng/mL); Ecstacy Urine VISTA NEGATIVE (< 500 ng/mL); Methadone Urine VISTA NEGATIVE (< 300 ng/mL); PCP Urine VISTA NEGATIVE (< 25 ng/mL); THC Urine VISTA NEGATIVE (< 50 ng/mL); Vista UDS pH Range 7
--- NOTE | 2018-12-12 22:06 | ED.RN ---
CALLED [facility] TO SEE THIS PT, UDAY IS ENGLISH ADJUNCT FACULTY
[2018-12-12 22:27] VITALS: RESP 16
--- NOTE | 2018-12-12 22:38 | ED.RN ---
UDAY CALLED BACK, SHE WILL BE IN
--- NOTE | 2018-12-12 23:04 | ED.RN ---
UDAY IS ATTEMPTING PLACEMENT FROM HER OFFICE.
--- NOTE | 2018-12-12 23:53 | ED.DCSUM_ITS ---
History of Present Illness Chief Complaint: Suicidal Narrative: Patient presenting secondary for a psychiatric evaluation. Patient has an underlying history of psychiatric disease. She reports that over the course the last couple of days she has been having command hallucinations telling her to stab herself. She has had prior similar episodes in the past. She denies being homicidal. Patient reports that she is missed her nighttime doses of medications, none of which are psychotropic, over the course of the last 5 days. Patient will not surrendered to me that there is any sort of specific reason for her suicidal thoughts. Past Medical History - Allergies and Home Meds Allergies/Adverse Reactions: Allergies No Known Allergies Allergy (Verified 10/03/18 02:50) Primary Care Physician: Paty Catalan DO [Primary Care Provider] - Surgical History: cholecystectomy, hysterectomy, - - nasa surgery Smoking Status: Former smoker - Family History Maternal Family History: Family History (Last Reviewed 07/10/18 @ 06:23 by Quinten Trejo MD) Mother Breast cancer Family History: Reports: Heart Disease Paternal Family History: Family History (Last Reviewed 07/10/18 @ 06:23 by Quinten Trejo MD) Mother Breast cancer Family History: Reports: Cancer, - - colon cancer Review of Systems All systems negative except as indicated Psych: Reports: Suicidal thoughts Physical Exam Vital Signs/Narrative: Vital Signs Temp Pulse Resp BP Pulse Ox 12/12/18 22:27 16 12/12/18 20:43 98 F 94 16 114/78 98 General: Well nourished, Well developed Head: Normocephalic, Atraumatic Eyes: Perrl, EOMI ENT: Moist mucous membranes, No rhinorrhea Neck: Supple, Nontender Cardiovascular: Regular rate, Regular rhythm, No murmurs Respiratory: No distress, CTA bilaterally, Chest nontender Abdomen: Soft, Nontender, Nondistended, Normal bowel sounds Back: Nontender, Normal Inspection Extremities: Nontender, No Edema Skin: Normal color, No rash Neurological: Alert, Oriented x3, Cranial nerves II-XII grossly intact, Normal Strength, Normal Sensation Psych: - - Patient has a flat affect, reports suicidal ideation with command hallucinations. Diagnostic/Tx/Re-eval Patient presented secondary to suicidal ideation with hallucinations. Screening labs were obtained which were found to be negative. Patient was medically cleared. Mental health evaluated the patient, they feel the patient would benefit from psychiatric stabilization due to the history that she has had kelin cide attempts in the past. Patient will be placed per mental health. Disposition: Transfer ED Disposition - Plan for ED Patient: Disposition: Psychiatric Hospital or Unit Diagnosis: Suicidal ideation, History of command hallucinations
[2018-12-13] MEDS: APIXABAN 5 MG TABLET PO (00:14)
[2018-12-13] MEDS: traZODone 50 MG Tablet PO (00:14)
[2018-12-13] MEDS: Carvedilol 3.125 MG TABLET PO (00:14)
[2018-12-13 01:45] VITALS: BP 107/60; PULSE 72; RESP 18; TEMP 36.4; O2SAT 94
--- NOTE | 2018-12-13 02:47 | ED.RN ---
[facility] ACCEPTED PATIENT WILL HAVE TO MOVE AROUND OTHER PATIENTS TO MAKE ROOM. WILL CALL BACK IN AM WITH ROOM ASSIGNMENT
--- NOTE | 2018-12-13 04:59 | ED.RN ---
PLEASE SEE COMPUTER DOWN TIME CHARTING FROM [id number] 12/13/18
--- NOTE | 2018-12-13 05:01 | ED.RN ---
see paper charting,scheduled comuter down time.
[2018-12-13 05:02] VITALS: RESP 18
[2018-12-13 07:20] VITALS: PULSE 70; RESP 18; O2SAT 98
[2018-12-13 09:37] VITALS: BP 110/72; PULSE 84; RESP 16; TEMP 36.6; O2SAT 99
== END 2018-12-13 11:36 ==
PROVIDERS: Emergency Provider Emergency Medicine; Family Provider Internal Medicine; PCP Internal Medicine
DX: R45.851 Suicidal ideations (principal); R44.0 Auditory hallucinations; F99 Mental disorder, not otherwise specified; Z91.5 Personal history of self-harm; Z79.01 Long term (current) use of anticoagulants; Z79.899 Other long term (current) drug therapy; Z87.891 Personal history of nicotine dependence
CPT/HCPCS: 36415; 80048; 80307; 80320; 84443; 84703; 85025; 85610; 85730; 99285; G0480

== ENCOUNTER 2019-02-08 23:12 | Emergency (ER) | payer OTHER, MEDICARE, SELFPAY ==
[2019-02-08 23:14] VITALS: BP 147/91; PULSE 110; RESP 16; TEMP 36.9; O2SAT 98; BMI 36.0
[2019-02-08] MEDS: Ziprasidone IM 20 MG/ML VIAL IM (23:41)
--- NOTE | 2019-02-08 23:46 | ED.DCSUM_ITS ---
- ER Visit Summary Date of Service: 02/08/19 Chief Complaint: Suicidal ideation, hallucinations History of Present Illness: The patient is a 48 F presenting with EMS for reported suicidal ideation. On arrival patient is responding to auditory hallucinations. She has flight of ideas and agitation. She is ranting continuously stating she believes she is a servant of God. Patient is carrying on a conversation with voices. She is easily distracted. She answers occasional questions appropriately. Unable to provide additional history. Per family patient has not been taking her medication. Physical Examination: Vitals are stable. Patient is afebrile. Alert no acute distress. HEENT exam is unremarkable. Neck is supple. Lungs are clear and equal bilaterally. Heart is regular rate and rhythm. Abdomen is soft nontender nondistended. Extremities are unremarkable. Skin is warm and dry. No focal neurologic deficit. Agitated, responding to auditory hallucinations Remainder of exam is unremarkable. Emergency Department Course and Treatment: Patient was given Geodon IM. CBC, chemistries unremarkable other than creatinine 1.2, glucose 150. Alcohol is negative. Tox is pending. Will discuss with the counseling center for evalua tion. Disposition: Per counseling center Impression: Suicidal ideation, history of schizophrenia This note was generated with [employer] dictation software. It may contain incorrect words, spelling, and punctuation that were not noted in review of the chart prior to signing ED Disposition - Plan for ED Patient: Referrals: Paty Catalan DO [Primary Care Provider] -
[2019-02-08 23:56] LABS: Absolute Neutrophil Count 4.7 X10^3/uL (2.0-7.7); Basophil# 0.02 X10^3/uL; Basophil% 0.2 % (0-1); Eosinophils% 2.3 % (0-5); Hematocrit 41.4 % (37-47); Lymphocyte % 32.1 % (19-41); Mean Corp Hgb Conc 33.8 g/dL (32-36); Mean Corpuscular Hgb 30.7 pg (27.0-32.0); Mean Corpuscular Volume 90.8 fL (81-99); Mean Platelet Vol. 8.9 fl (6.2-12.0); Monocyte# 0.96 X10^3/uL; NRBC Flagged by Analyzer 0 % (0-5); Neutrophil # 4.72 X10^3/uL (2.7-7.7); Neutrophil % 54.1 % (47-70); Platelet Count 287 K/mm3 (150-450); RBC Distribution Width CV 11.7 % (11.6-14.6); RBC Distribution Width SD 39.3 fl (35.1-43.9); Red Blood Count 4.56 M/mm3 (4.2-5.4); White Blood Count 8.7 K/mm3 (4.4-11.0)
[2019-02-09] VITALS (13 sets, daily range): BP systolic 106–140; BP diastolic 62–84; PULSE 68–123; RESP 14–20; O2SAT 97
[2019-02-09 00:11] LABS: Anion Gap 6 (5-15); BUN 16 mg/dL (7-18); BUN/Creat Ratio 13.3 RATIO (10-20); Calcium,Total 8.7 mg/dL (8.5-10.1); Chloride 101 mmol/L (98-107); EST Glomerular Filtration Rate 50 mL/min (>60); Est Glom Filt Rate - Afr Amer 61 mL/min (>60); Estimated Creatinine Clearance 56.58 ml/min; Glucose 150 mg/dL (74-106); Potassium 3.3 mmol/L (3.5-5.1); Sodium Level 135 mmol/L (136-145)
[2019-02-09 00:20] LABS: Alcohol, Blood (Medical)-Serum < 3.0 mg/dL
--- NOTE | 2019-02-09 02:15 | ED.RN ---
I TALKED TO JONN FROM THE [facility]. I NOTIFIED HER THIS PT IS READY TO BE EVALUATED BY [facility]. SHE STATED SHE WILL BE HERE IN AN HOUR TO SEE THIS PT.
[2019-02-09 02:16] LABS: Amphetamine Urine VISTA NEGATIVE (<1000 ng/mL); Barbiturate Urine VISTA NEGATIVE (< 200 ng/mL); Benzodiazepine Urine VISTA NEGATIVE (< 200 ng/mL); Cocaine Urine VISTA NEGATIVE (< 300 ng/mL); Ecstacy Urine VISTA NEGATIVE (< 500 ng/mL); Methadone Urine VISTA NEGATIVE (< 300 ng/mL); PCP Urine VISTA NEGATIVE (< 25 ng/mL); THC Urine VISTA NEGATIVE (< 50 ng/mL); Vista UDS pH Range 6
--- NOTE | 2019-02-09 02:54 | ED.RN ---
JONN FROM [facility] IS HERE TO EVALUATE THIS PT NOW.
== END 2019-02-09 12:14 ==
PROVIDERS: Emergency Provider Emergency Medicine; Family Provider Internal Medicine; PCP Internal Medicine
DX: R45.851 Suicidal ideations (principal); F20.9 Schizophrenia, unspecified; I11.0 Hypertensive heart disease with heart failure; I50.9 Heart failure, unspecified; F31.9 Bipolar disorder, unspecified; Z79.01 Long term (current) use of anticoagulants; Z79.899 Other long term (current) drug therapy
CPT/HCPCS: 36415; 80048; 80307; 80320; 85025; 96372; 99285; G0480; J3486

== ENCOUNTER 2019-03-10 14:24 | Emergency (ER) | payer OTHER, MEDICARE, SELFPAY ==
[2019-03-10 14:25] VITALS: BP 117/72; PULSE 104; RESP 17; TEMP 36.5; O2SAT 95; BMI 38.3
--- NOTE | 2019-03-10 15:30 | RAD_ITS ---
STUDY: X-RAY - LUMBAR SPINE REASON FOR EXAM: Female, 49 years old. Increasing lower back pain following a recent fall. TECHNIQUE: 3 view(s) of the lumbar spine were obtained. COMPARISON: None FINDINGS: Normal lumbar lordosis. There is no substantial scoliosis. There is a normal alignment of the vertebrae. Disc space narrowing and spondylosis at the L5-S1 level. Minimal loss of height of the superior endplate of the L1 vertebrae. Phleboliths are seen in the pelvis. RAD/Lumbar Spine 2 or 3 Views IMPRESSION: Degenerative changes of the spine, as detailed above. Minimal loss of height of the superior endplate of the L1 vertebrae. Electronically Signed: Jaxon Zhang, at 15:47 EDT , Service support ,
--- NOTE | 2019-03-10 15:46 | ED.VIS.GEN ---
History of Present Illness Chief Complaint: Back Narrative: Patient is here with her father. She recently got out of a psychiatric institution. She is complaining of back pain, dad just wants to make sure that there is nothing wrong. She is laying down when I walk into the room and she sits up quite well as I am talking to her. She is complaining of lumbar pain. She denies any trauma. Past Medical History - Allergies and Home Meds Allergies/Adverse Reactions: Allergies No Known Allergies Allergy (Verified 10/03/18 02:50) Primary Care Physician: Paty Catalan DO [Primary Care Provider] - Prior records reviewed: No Past Medical History: None Surgical History: cholecystectomy, hysterectomy, - - nasa surgery Smoking Status: Unknown if ever smoked - Family History Maternal Family History: Family History (Last Reviewed 07/10/18 @ 06:23 by Quinten Trejo MD) Mother Breast cancer Family History: Reports: Heart Disease Paternal Family History: Family History (Last Reviewed 07/10/18 @ 06:23 by Quinten Trejo MD) Mother Breast cancer Family History: Reports: Cancer, - - colon cancer Review of Systems All systems negative except as indicated General: Denies: Fever ENT: Denies: Bilateral ear pain Cardiovascular: Denies: Chest pain Respiratory: Denies: Dyspnea Gastrointestinal: Denies: Abdominal pain Musculoskeletal: Reports: Back pain Skin: Denies: Wounds Neurological: Denies: Weakness Physical Exam Vital Signs/Narrative: Vital Signs Temp Pulse Resp BP Pulse Ox 03/10/19 14:25 97.7 F L 104 H 17 117/72 95 General: Well nourished Eyes: Perrl, EOMI Respiratory: No distress Abdomen: Soft, Nontender Rectal: Deferred Back: - - Some lumbar tenderness to palpation. No obvious lesions in that region on skin examination Extremities: Nontender, No edema Skin: Normal color Neurological: Alert, Normal Strength, Normal Sensation Diagnostic/Tx/Re-eval Lumbosacral x-ray 3 views interpreted by emergency doctor before radiology read shows some DJD, normal alignment of the vertebrae. No acute pathology or fracture. - Medical Decision Making Patient has a normal x-ray. She will be discharged with reassurance ED Disposition - Plan for ED Patient: Disposition: Home or Assisted Living Diagnosis: Back pain Instructions: BACK PAIN (Acute or Chronic) Referrals: Paty Catalan DO [Primary Care Provider] - 3-5 Days
== END 2019-03-10 16:33 | disposition home or self-care (01) ==
LOC: ED 15:57
PROVIDERS: Emergency Provider Emergency Medicine; Family Provider Internal Medicine; PCP Internal Medicine
DX: M54.5 Low back pain (principal)
CPT/HCPCS: 72100; 99282

== ENCOUNTER 2019-03-14 13:03 | Outpatient (RCR) | payer OTHER, MEDICARE, SELFPAY ==
[2019-03-14 15:02] LABS: Absolute Lymphocyte Count 1.83 X10^3/uL (0.83-4.51); Basophil# 0.02 X10^3/uL; Basophil% 0.3 % (0-1); Eosinophils% 3.1 % (0-5); Hematocrit 41.9 % (37-47); Hemoglobin 13.6 g/dL (12.0-15.0); Lymphocyte # 1.83 X10^3/ul (4.0); Lymphocyte % 27.9 % (19-41); Mean Corp Hgb Conc 32.5 g/dL (32-36); Mean Corpuscular Hgb 30.6 pg (27.0-32.0); Mean Corpuscular Volume 94.2 fL (81-99); Mean Platelet Vol. 11.3 fl (6.2-12.0); Monocyte# 0.46 X10^3/uL; NRBC Flagged by Analyzer 0 % (0-5); Neutrophil # 4.01 X10^3/uL (2.7-7.7); Neutrophil % 61.2 % (47-70); Platelet Count 218 K/mm3 (150-450); RBC Distribution Width CV 12.2 % (11.6-14.6); RBC Distribution Width SD 42.1 fl (35.1-43.9); Red Blood Count 4.45 M/mm3 (4.2-5.4); White Blood Count 6.6 K/mm3 (4.4-11.0)
== END 2019-03-27 18:00 | disposition home or self-care (01) ==
LOC: LAB 13:03
PROVIDERS: Family Provider Internal Medicine; PCP Internal Medicine
DX: Z79.899 Other long term (current) drug therapy (principal)
CPT/HCPCS: 36415; 80346; 85025; G0480

== ENCOUNTER 2019-03-14 21:41 | Emergency (ER) | payer OTHER, MEDICARE, SELFPAY ==
[2019-03-14 21:42] VITALS: BP 113/77; PULSE 95; RESP 16; TEMP 36.6; O2SAT 99; BMI 35.7
--- NOTE | 2019-03-14 21:50 | ED.RN ---
DAUGHTER APPROACHED THIS NURSE AND SAID THAT HER MOM, THE PT WAS RECENTLY RELEASED FROM A PSYCHIATRIC FACILITY AND HAS BEEN HAVING INCREASED HALLUCINATIONS AND TELLING HER THEY WERE GOING TO THE HOSPITAL FOR A TEST WAS THE ONLY WAY TO GET HER HERE. MD AND PLATING FOREMAN MADE AWARE ALSO.
--- NOTE | 2019-03-14 22:17 | CT_ITS ---
LOW ABDOMEN PAIN with [place] and vomitinghx:htn,chf,diabetes,schizophreniaSurgery:cholecystectomy,hysterectomy EXAMINATION: CT Abdomen And Pelvis W/O Contrast TECHNIQUE: Helically acquired images were obtained of the abdomen and pelvis without oral or IV contrast as per renal stone protocol. A radiation dose optimization technique was used for this scan. IV Contrast dosage and agent: None. Oral contrast: None. COMPARISON: 12/31/2017 FINDINGS: Large body habitus with protuberant abdomen. Lower thorax: Chronic mild elevation of the right hemidiaphragm. Lung bases appear clear. No pleural effusion or pericardial effusion Nonvisualization of the gallbladder. Limited non-infusion exam. No biliary dilatation. Negative liver, spleen, and pancreas. Small accessory spleen, unchanged. Both kidneys are normal in position. Tiny 2 mm calyceal stone, mid pole of the right kidney. No hydronephrosis or hydroureter. The adrenal glands are not enlarged. Abdominal aorta is normal in caliber. No ascites or retroperitoneal lymph node enlargement. GI tract: Constipation pattern. No bowel obstruction. The sigmoid colon is elongated. Normal appendix. No pericolonic inflammatory changes. Pelvis: Surgical absence of the uterus. The urinary bladder is abnormal or distended. Multiple pelvic phleboliths. No free fluid or lymph node enlargement. Ventral abdominal Wall: Fat-containing umbilical hernia and left periumbilical fat-containing hernia, unchanged. Redemonstration of superficial ventral wall varicosities which extend from the left inguinal hypogastric region into the upper abdomen. CT/Abdomen/Pelvis without Cont IMPRESSION: 1. Constipation. No bowel obstruction or acute abdominal disease identified. 2. Right renal tiny nonobstructing stone. 3. Fat-containing umbilical and left periumbilical hernias, unchanged. 4. Chronic superficial varicosities within the ventral abdominal wall. Individualized dose optimization techniques were used for this CT. at 1580 Reported and signed by: Jun Oneil MD Electronically Signed: Jun Oneil, at 23:44 EDT Tel , Service support ,
--- NOTE | 2019-03-14 22:18 | RAD_ITS ---
HISTORY: vomiting and cough EXAMINATION/TECHNIQUE: XR Chest AP upright one view COMPARISON: 07/09/2018 and 06/26/[address] abdomen and pelvis 03/14/2019 FINDINGS: No significant change. Large body habitus with shallow inspiration. Chronic mild elevation of the right hemidiaphragm. Normal heart size. No vascular congestion, pleural effusion, or acute pulmonary infiltration. No pneumothorax. RAD/Chest PA and Lateral IMPRESSION: No acute cardiopulmonary disease. No significant interval change. at 2324 Reported and signed by: Jun Oneil MD Electronically Signed: Jun Oneil, at 23:23 EDT Tel , Service support ,
--- NOTE | 2019-03-14 22:22 | CM.ED ---
Social Work Collaborating with Dr. Sarabia, recommending evaluation for inpatient psychiatric placement. End of social work work day. Crisis to be consulted to evaluate patient. Dr. Sarabia and medical team aware and will contact crisis when patient is medically cleared. Bryanna DECKER, SHERICE
[2019-03-14 22:44] LABS: Absolute Lymphocyte Count 2.37 X10^3/uL (0.83-4.51); Absolute Neutrophil Count 3.6 X10^3/uL (2.0-7.7); Basophil# 0.02 X10^3/uL; Basophil% 0.3 % (0-1); Eosinophil# 0.26 X10^3/uL; Eosinophils% 3.8 % (0-5); Hematocrit 40.5 % (37-47); Hemoglobin 13.2 g/dL (12.0-15.0); Lymphocyte # 2.37 X10^3/ul (4.0); Lymphocyte % 34.6 % (19-41); Mean Corp Hgb Conc 32.6 g/dL (32-36); Mean Corpuscular Hgb 30.3 pg (27.0-32.0); Mean Corpuscular Volume 92.9 fL (81-99); Mean Platelet Vol. 10.6 fl (6.2-12.0); Monocyte# 0.61 X10^3/uL; Monocyte% 8.9 % (0-10); NRBC Flagged by Analyzer 0 % (0-5); Neutrophil # 3.57 X10^3/uL (2.7-7.7); Neutrophil % 52.1 % (47-70); Platelet Count 202 K/mm3 (150-450); RBC Distribution Width CV 12.2 % (11.6-14.6); RBC Distribution Width SD 41.9 fl (35.1-43.9); Red Blood Count 4.36 M/mm3 (4.2-5.4); White Blood Count 6.9 K/mm3 (4.4-11.0)
[2019-03-14 22:49] LABS: Red Blood Cells-Urine 0 SEEN /hpf (0-5)
[2019-03-14 22:50] LABS: Color, Urine Yellow (Yellow); Glucose, Dipstick Normal (Normal); Ketone-Dipstick Negative (Negative); Leukocyte Esterase-Dipstick 25 /ul (Negative); Nitrite-Dipstick Negative (Negative); Occult Blood-Urine Negative /ul (Negative); Protein-Dipstick Negative (Negative); Urine Bilirubin Dipstick Negative (Negative); Urine Clarity Clear (Clear); Urine Urobilinogen Normal (Normal)
[2019-03-14 23:23] VITALS: RESP 17
[2019-03-14 23:44] LABS: ALB/GLOB Ratio 0.8 RATIO (0.9-2.4); AST(SGOT) 23 U/L (15-37); Alanine Aminotransfer ALT/SGPT 33 U/L (13-56); Albumin, Serum 3.1 g/dL (3.2-5.0); Alkaline Phosphatase 113 U/L (45-117); Anion Gap 4 (5-15); BUN 18 mg/dL (7-18); BUN/Creat Ratio 18.8 RATIO (10-20); Calcium,Total 8.4 mg/dL (8.5-10.1); Chloride 107 mmol/L (98-107); Creatinine, Serum 0.96 mg/dL (0.55-1.02); EST Glomerular Filtration Rate 65 mL/min (>60); Est Glom Filt Rate - Afr Amer 79 mL/min (>60); Estimated Creatinine Clearance 62.38 ml/min; Globulin 3.9 g/dL (2.2-4.2); Glucose 110 mg/dL (74-106); Potassium 3.5 mmol/L (3.5-5.1); Sodium Level 143 mmol/L (136-145); Thyroid Stim Hormone (TSH) 3.26 uIU/mL (0.358-3.74)
[2019-03-14 23:44] LABS: Amphetamine Urine VISTA NEGATIVE (<1000 ng/mL); Barbiturate Urine VISTA NEGATIVE (< 200 ng/mL); Benzodiazepine Urine VISTA NEGATIVE (< 200 ng/mL); Cocaine Urine VISTA NEGATIVE (< 300 ng/mL); Ecstacy Urine VISTA NEGATIVE (< 500 ng/mL); Methadone Urine VISTA NEGATIVE (< 300 ng/mL); PCP Urine VISTA NEGATIVE (< 25 ng/mL); THC Urine VISTA NEGATIVE (< 50 ng/mL); Vista UDS pH Range 5
[2019-03-14 23:48] LABS: Squamous Epithelial Cells - UA 0-5 SEEN /hpf (5-10); White Blood Cells 0-5 SEEN /hpf (0-5)
[2019-03-14 23:49] LABS: Bacteria RARE /hpf (None Seen); Hyaline Cast 0-5 SEEN /lpf (0-5); Mucous, Urine RARE /hpf (<or=2+)
--- NOTE | 2019-03-14 23:50 | ED.DCSUM_ITS ---
History of Present Illness Chief Complaint: Abd Pain Informant: Patient, Family - Abdominal Pain/Flank Pain Onset: Weeks - 2 Context: Gradual Onset Timing: Waxes and wanes Quality: Cramping - contractions Location: - - suprapubic Current Severity: Mild Maximum Severity: Moderate Worsened by: - - when baby moves Relieved by: Nothing - Nausea/Vomiting/Emesis GI Symptom: Nausea, Vomiting - Diarrhea/Melena/Hematochezia GI Symptom: Negative for: Diarrhea, Melena, Hematochezia Associated Symptoms: Frequency. Negative for: Dysuria, Hematuria Narrative: 53-year-old female presenting with her daughter, patient is stating that she is , feeling the baby moving, and is having contractions off and on for the past two weeks, worse tonight. Pain is let up now. She has had some nausea and vomiting off and on a week or so ago but not now. She is urinating somewhat frequently and denies having any problems with bowel movements. She states her l ast normal menstrual cycle was five years ago. She possibly has had a hysterectomy, she knows she is missing a fallopian tube. Daughter talks to me in the hallway away from the patient, saying that she is schizophrenic, was discharged from [facility] two weeks ago and ever since has had a steady decline and told them at home that since she is , is unable to take her medications for fear of harming the baby. Her medication intake regimen details are unknown at this time. - Past Medical History (1) Bipolar disorder Status: Chronic (2) CHF (congestive heart failure) Status: Chronic (3) Catatonia schizophrenia Status: Chronic (4) DVT (deep venous thrombosis) Status: Chronic (5) HTN (hypertension) Status: Chronic (6) BALDEMAR (obstructive sleep apnea) Status: Chronic Past Medical History - Allergies and Home Meds Allergies/Adverse Reactions: Allergies No Known Allergies Allergy (Verified 10/03/18 02:50) Primary Care Physician: Paty Catalan DO [Primary Care Provider] - Surgical History: cholecystectomy, hysterectomy, - - nasa surgery Lives: With Family Smoking Status: Never smoker - Family History Maternal Family History: Family History (Last Reviewed 07/10/18 @ 06:23 by Quinten Trejo MD) Mother Breast cancer Family History: Reports: Heart Disease Paternal Family History: Family History (Last Reviewed 07/10/18 @ 06:23 by Quinten Trejo MD) Mother Breast cancer Family History: Reports: Cancer, - - colon cancer Review of Systems General: Denies: Chills, Fever, Sweats Eyes: Denies: Visual changes - bilaterally, Diplopia ENT: Denies: Rhinorrhea, Sore throat Cardiovascular: Denies: Chest pain, Palpitations Respiratory: Denies: Dyspnea, Cough, Dyspnea on exertion Gastrointestinal: Reports: Abdominal pain, Nausea, Vomiting. Denies: Diarrhea, Melena, Hematochezia Genitourinary: Reports: Frequency. Denies: Dysuria, Hematuria Musculoskeletal: Denies: Neck pain, Back pain, Extremity Pain Skin: Denies: Rash, Wounds Neurological: Denies: Headache, Weakness, Numbness Psych: Reports: - - see HPI. Denies: Suicidal thoughts, Suicidal ideations Physical Exam Vital Signs/Narrative: Vital Signs Temp Pulse Resp BP Pulse Ox 03/14/19 21:42 97.9 F 95 16 113/77 99 Inital Vital Signs reviewed: Yes General: Well nourished, Well developed, Obese, No Acute Distress Head: Normocephalic, Atraumatic Eyes: Perrl, EOMI ENT: Moist mucous membranes, No rhinorrhea Neck: Supple, Nontender Cardiovascular: Regular rate, Regular rhythm, No murmurs Respiratory: No distress, CTA bilaterally, Chest nontender Abdomen: Soft, Nondistended, Normal bowel sounds, Tender - mild, suprapubic only. Negative for: Guarding, Rebound tenderness Back: Nontender, Normal Inspection. Negative for: CVA tenderness Extremities: Nontender, No edema. Negative for: Calf Tenderness Skin: Normal color, No rash, No Trauma Neurological: Alert, Oriented x3, Cranial nerves II-XII grossly intact, Normal Strength, Normal Sensation Psychological: Normal Mood, - - Flat affect. Delusional, see HPI. No active hallucinations. No suicidal or homicidal ideations. Poor insight. Diagnostic/Tx/Re-eval Impressions Abdomen/Pelvis CT 03/14/19 22:17 IMPRESSION: 1. Constipation. No bowel obstruction or acute abdominal disease identified. 2. Right renal tiny nonobstructing stone. 3. Fat-containing umbilical and left periumbilical hernias, unchanged. 4. Chronic superficial varicosities within the ventral abdominal wall. Individualized dose optimization techniques were used for this CT. at 2345 Reported and signed by: Jun Oneil MD Electronically Signed: Jun Oneil, at 23:44 EDT Tel , Service support , 03/14/19 22:17 CT Abd [Abdomen/Pelvis without Cont] [CT] Stat 03/14/19 22:18 Chest PA and Lateral [RAD] Stat Laboratory Results 03/14/19 03/14/19 03/14/19 22:30 22:30 22:30 WBC 6.9 RBC 4.36 Hgb 13.2 Hct 40.5 MCV 92.9 MCH 30.3 MCHC 32.6 RDW Std Deviation 41.9 RDW Coeff of Pato 12.2 Plt Count 202 MPV 10.6 Immature Gran % (Auto) 0.300 Neut % (Auto) 52.1 Lymph % (Auto) 34.6 Imperial % (Auto) 8.9 Eos % (Auto) 3.8 Baso % (Auto) 0.3 Absolute Neuts (auto) 3.6 Absolute Lymphs (auto) 2.37 Nucleated RBC % 0 Sodium 143 Potassium 3.5 Chloride 107 Carbon Dioxide 32.0 Anion Gap 4 L BUN 18 Creatinine 0.96 Estim Creat Clear Calc 62.38 Est GFR (MDRD) Af Amer 79 Est GFR (MDRD) Non-Af 65 BUN/Creatinine Ratio 18.8 Glucose 110 H Calcium 8.4 L Total Bilirubin 0.30 AST 23 ALT 33 Alkaline Phosphatase 113 Total Protein 7.0 Albumin 3.1 L Globulin 3.9 Albumin/Globulin Ratio 0.8 L TSH 3.26 Urine Color Urine Clarity Urine pH Ur Specific [place] Urine Protein Urine Glucose (UA) Urine Ketones Urine Occult Blood Urine Nitrite Urine Bilirubin Urine Urobilinogen Ur Leukocyte Esterase Urine RBC Urine WBC Ur Squamous Epith Cells Urine Bacteria Hyaline Casts Urine Mucus Urine Opiates Screen Urine Methadone Screen Ur Barbiturates Screen Ur Phencyclidine Scrn Ur Amphetamines Screen U Methamphetamin-MDMA U Benzodiazepines Scrn Urine Cocaine Screen U Cannabinoids Screen Ur Drug Screen Comment Ethyl Alcohol 4.0 03/14/19 03/14/19 22:40 22:40 WBC RBC Hgb Hct MCV MCH MCHC RDW Std Deviation RDW Coeff of Pato Plt Count MPV Immature Gran % (Auto) Neut % (Auto) Lymph % (Auto) Imperial % (Auto) Eos % (Auto) Baso % (Auto) Absolute Neuts (auto) Absolute Lymphs (auto) Nucleated RBC % Sodium Potassium Chloride Carbon Dioxide Anion Gap BUN Creatinine Estim Creat Clear Calc Est GFR (MDRD) Af Amer Est GFR (MDRD) Non-Af BUN/Creatinine Ratio Glucose Calcium Total Bilirubin AST ALT Alkaline Phosphatase Total Protein Albumin Globulin Albumin/Globulin Ratio TSH Urine Color Yellow Urine Clarity Clear Urine pH 6.0 Ur Specific [place] 1.020 Urine Protein Negative Urine Glucose (UA) Normal Urine Ketones Negative Urine Occult Blood Negative Urine Nitrite Negative Urine Bilirubin Negative Urine Urobilinogen Normal Ur Leukocyte Esterase 25 H Urine RBC 0 SEEN Urine WBC 0-5 SEEN Ur Squamous Epith Cells 0-5 SEEN Urine Bacteria RARE Hyaline Casts 0-5 SEEN Urine Mucus RARE Urine Opiates Screen NEGATIVE Urine Methadone Screen NEGATIVE Ur Barbiturates Screen NEGATIVE Ur Phencyclidine Scrn NEGATIVE Ur Amphetamines Screen NEGATIVE U Methamphetamin-MDMA NEGATIVE U Benzodiazepines Scrn NEGATIVE Urine Cocaine Screen NEGATIVE U Cannabinoids Screen NEGATIVE Ur Drug Screen Comment Ethyl Alcohol - Medical Decision Making Abdominal CT showing constipation which could be causing her abdominal discomfort, the other findings are incidental do not represent any acute abdominal emergency. The rest of her work-up is unremarkable and she is medically cleared for psychiatric evaluation. Plan is to have crisis evaluate the patient for possible psychiatric transfer to [facility] or appropriate facility depending on if the history available is accurate. ED Disposition - Plan for ED Patient: Disposition: Psychiatric Hospital or Unit Diagnosis: Catatonia schizophrenia, Delusion of , Constipation Referrals: Paty Catalan DO [Primary Care Provider] -
[2019-03-14 23:54] LABS: Internal QC Validated? YES +Cl - CLEAR BKGD
[2019-03-14 23:55] LABS: Pregnancy, Serum, hCG Quali. POSITIVE Negative
--- NOTE | 2019-03-14 23:59 | ED.RN ---
CALLED CRISIS TO SEE THIS PT, UDAY IS BILLING COLLECTIONS SPECIALIST
[2019-03-15] VITALS (10 sets, daily range): BP systolic 89–128; BP diastolic 65–78; PULSE 73–94; RESP 14–18; O2SAT 92–99
--- NOTE | 2019-03-15 00:17 | ED.RN ---
UDAY CALLED BACK, SHE IS GOING TO ANOTHER FACILITY THEN WILL COME HERE WHEN DONE
[2019-03-15 02:10] LABS: hCG Titer Quant., Serum 4 mIU/mL (1-3)
--- NOTE | 2019-03-15 05:21 | ED.RN ---
[facility]ISIS CALLED, SHE IS ON HER WAY HERE TO SEE THIS PT.
--- NOTE | 2019-03-15 07:48 | ED.RN ---
UDAY FROM [facility] IS LEAVING AT THIS TIME, STATES SHE MADE A REFERRAL TO [facility], ALL INFORMATION IS IN HER NOTE.
--- NOTE | 2019-03-15 08:12 | ED.RN ---
[facility] CALLED AND STATED THEY ARE DECLINING THE PT AND THAT THE PT IS AT HER BASELINE. CRISIS HAS BEEN MADE AWARE, STATES THEY WILL BE TRYING TO PLACE HER ELSEWHERE.
[2019-03-15] MEDS: Furosemide 20 MG Tablet PO (12:11)
[2019-03-15] MEDS: Carvedilol 3.125 MG TABLET PO (12:11)
[2019-03-15] MEDS: metFORMIN (XR) 500 MG Tablet PO (12:11)
[2019-03-15] MEDS: Escitalopram Oxalate 10 MG Tablet PO (12:11)
[2019-03-15] MEDS: APIXABAN 5 MG TABLET PO (12:11)
[2019-03-15] MEDS: Benztropine 2 MG Tablet PO (12:11)
--- NOTE | 2019-03-15 13:17 | NURSING ---
CALLED MANO[facility]. ETA IS FROM [facility]
--- NOTE | 2019-03-15 14:07 | ED.RN ---
RITA NIELSEN CALLED AND UPDATED OF PT'S TRANSFER TO [facility], LEFT MESSAGE.
== END 2019-03-15 14:08 ==
PROVIDERS: Emergency Medicine; Emergency Provider Emergency Medicine; Family Provider Internal Medicine; PCP Internal Medicine
DX: F20.2 Catatonic schizophrenia (principal); F22 Delusional disorders; K59.00 Constipation, unspecified; K42.9 Umbilical hernia without obstruction or gangrene; N20.0 Calculus of kidney; I86.8 Varicose veins of other specified sites; E66.9 Obesity, unspecified; F31.9 Bipolar disorder, unspecified; I11.0 Hypertensive heart disease with heart failure; I50.9 Heart failure, unspecified; G47.33 Obstructive sleep apnea (adult) (pediatric); Z86.718 Personal history of other venous thrombosis and embolism; Z90.710 Acquired absence of both cervix and uterus; Z90.49 Acquired absence of other specified parts of digestive tract; Z79.01 Long term (current) use of anticoagulants; Z79.84 Long term (current) use of oral hypoglycemic drugs; Z79.899 Other long term (current) drug therapy
CPT/HCPCS: 71046; 74176; 80053; 80307; 80320; 81001; 84443; 84702; 84703; 85025; 99285; G0480

== ENCOUNTER 2019-04-12 23:53 | Emergency (ER) | payer OTHER, MEDICARE, SELFPAY ==
[2019-04-12 23:54] VITALS: BP 126/76; PULSE 85; RESP 18; TEMP 36.6; O2SAT 97; BMI 39.4
[2019-04-13 00:29] LABS: Absolute Lymphocyte Count 2.05 X10^3/uL (0.83-4.51); Absolute Neutrophil Count 5.3 X10^3/uL (2.0-7.7); Basophil# 0.03 X10^3/uL; Basophil% 0.4 % (0-1); Eosinophil# 0.38 X10^3/uL; Eosinophils% 4.5 % (0-5); Hematocrit 37.3 % (37-47); Hemoglobin 12.3 g/dL (12.0-15.0); Lymphocyte # 2.05 X10^3/ul (4.0); Lymphocyte % 24.2 % (19-41); Mean Corpuscular Hgb 30.4 pg (27.0-32.0); Mean Corpuscular Volume 92.1 fL (81-99); Monocyte# 0.66 X10^3/uL; Monocyte% 7.8 % (0-10); NRBC Flagged by Analyzer 0 % (0-5); Neutrophil # 5.33 X10^3/uL (2.7-7.7); Neutrophil % 62.7 % (47-70); Platelet Count 233 K/mm3 (150-450); RBC Distribution Width CV 12.8 % (11.6-14.6); RBC Distribution Width SD 42.8 fl (35.1-43.9); Red Blood Count 4.05 M/mm3 (4.2-5.4); White Blood Count 8.5 K/mm3 (4.4-11.0)
[2019-04-13 00:34] LABS: Internal QC Validated? YES +Cl - CLEAR BKGD; Pregnancy, Serum, hCG Quali. NEGATIVE Negative
--- NOTE | 2019-04-13 00:35 | CT_ITS ---
STUDY: CT BRAIN WITHOUT CONTRAST REASON FOR EXAM: Female, 49 years old. Confusion. Patient was missed from senior living. Found on someone's porch. RADIATION DOSAGE (If Supplied By Facility): CTDIvol = ( 44.99 ) mGy, DLP = ( 883.29 ) mGycm TECHNIQUE: Transaxial CT imaging of the brain was performed without administration of intravenous contrast material. Individualized dose optimization techniques were used for this CT. COMPARISON: 07/09/2018. FINDINGS: Normal soft tissue structures. Normal calvarium. Normal size ventricles and extra-axial spaces for the patient's age. Normal white matter tracts of the cerebral hemispheres. Normal basal ganglia and thalami. Normal brainstem. Normal cerebellum. There is atherosclerotic calcification of the cavernous carotid arteries. There is no intracranial hemorrhage. There are no findings of an acute ischemic infarction. Normal visualized paranasal sinuses. CT/Brain/Head without Contrast IMPRESSION: No demonstrated acute intracranial process. Atherosclerotic calcifications of the cavernous carotid arteries. Electronically Signed: Terry Santiago MD at 2:02 EDT , Service support ,
[2019-04-13 00:39] LABS: Anion Gap 6 (5-15); BUN 15 mg/dL (7-18); BUN/Creat Ratio 16.5 RATIO (10-20); Calcium,Total 8.9 mg/dL (8.5-10.1); Chloride 108 mmol/L (98-107); Creatinine, Serum 0.91 mg/dL (0.55-1.02); EST Glomerular Filtration Rate 69 mL/min (>60); Est Glom Filt Rate - Afr Amer 84 mL/min (>60); Estimated Creatinine Clearance 65.81 ml/min; Glucose 103 mg/dL (74-106); Potassium 3.8 mmol/L (3.5-5.1); Sodium Level 140 mmol/L (136-145)
[2019-04-13 00:42] LABS: Amphetamine Urine VISTA NEGATIVE (<1000 ng/mL); Barbiturate Urine VISTA NEGATIVE (< 200 ng/mL); Benzodiazepine Urine VISTA NEGATIVE (< 200 ng/mL); Cocaine Urine VISTA NEGATIVE (< 300 ng/mL); Ecstacy Urine VISTA NEGATIVE (< 500 ng/mL); Methadone Urine VISTA NEGATIVE (< 300 ng/mL); PCP Urine VISTA NEGATIVE (< 25 ng/mL); THC Urine VISTA NEGATIVE (< 50 ng/mL); Vista UDS pH Range 5
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
[2019-04-13 01:06] LABS: Color, Urine Yellow (Yellow); Glucose, Dipstick Normal (Normal); Ketone-Dipstick 5 mg/dl (Negative); Leukocyte Esterase-Dipstick 100 /ul (Negative); Nitrite-Dipstick Negative (Negative); Occult Blood-Urine Negative /ul (Negative); Protein-Dipstick Negative (Negative); Red Blood Cells-Urine 0 SEEN /hpf (0-5); Specific Gravity, Urine 1.025 (1.002-1.030); Urine Bilirubin Dipstick Negative (Negative); Urine Clarity Sl. Cloudy (Clear); Urine Urobilinogen Normal (Normal)
--- NOTE | 2019-04-13 01:06 | ED.DCSUM_ITS ---
- ER Visit Summary Date of Service: 04/13/19 Chief Complaint: Suicidal ideation History of Present Illness: The patient is a 49 F presenting with suicidal ideation. Patient states that she feels that she may be having a breakdown. She has had thoughts of jumping in front of a car. [facility] a [facility]. The [facility] called the police when she was missing. She was missing for approximately 1 hour. She was found on someone else's porch. She does not want to return to the [facility]. Physical Examination: Vitals are stable. Patient is afebrile. Alert no acute distress. HEENT exam is unremarkable. Neck is supple. No meningismus Lungs are clear and equal bilaterally. Heart is regular rate and rhythm. Abdomen is soft nontender nondistended. Extremities are unremarkable. Skin is warm and dry. No focal neurologic deficit. Slow to respond to questions, responds appropriately. Depressed affect, suicidal thoughts Remainder of exam is unremarkable. Emergency Department Course and Treatment: CBC, chemistries unremarkable. Urinalysis unremarkable. hCG negative. Ammonia level 28. Tox and alcohol are negative. CT head shows no acute process. Discussed with the counseling center for evaluation. Disposition: Per counseling center Impression: Suicidal ideation This note was generated with [employer] dictation software. It may contain incorrect words, spelling, and punctuation that were not noted in review of the chart prior to signing ED Disposition - Plan for ED Patient: Referrals: Paty Catalan DO [Primary Care Provider] -
[2019-04-13 01:14] LABS: Bacteria 1+ /hpf (None Seen); Mucous, Urine RARE /hpf (<or=2+); Squamous Epithelial Cells - UA 5-10 SEEN /hpf (5-10); White Blood Cells 0-5 SEEN /hpf (0-5)
[2019-04-13 02:02] VITALS: RESP 17
[2019-04-13 03:21] VITALS: RESP 18
[2019-04-13 04:39] VITALS: BP 86/53; PULSE 72; RESP 16; O2SAT 94
[2019-04-13] MEDS: 0.9% Normal Saline 1,000 ML 999 ML IV (05:03)
[2019-04-13 05:47] VITALS: BP 118/79; PULSE 71; RESP 18; O2SAT 100
--- NOTE | 2019-04-13 05:47 | ED.RN ---
BP IS BETTER AFTER HER BOLUS IS ALMOST DONE. DR. KLINE MADE AWARE OF BP OF 118/79. PATIENT UP TO BSC BECAUSE SHE SAID SHE WAS TOO LIGHT HEADED TO WALK TO THE BATHROOM.
--- NOTE | 2019-04-13 07:48 | ED.RN ---
0720-Pt sleeping without distress.
[2019-04-13 08:09] VITALS: BP 106/69; PULSE 70; RESP 16; O2SAT 97
--- NOTE | 2019-04-13 08:45 | ED.RN ---
Pt awake and cooperative with flat affect. Report to Mel at [facility].
--- NOTE | 2019-04-13 09:39 | ED.RN ---
PT MOTHER CALLS AND STATES SHE DOES NPT WANT PT TRANSFERRED.MOTHER VERY UPSET, SCREAMING AT THIS NURSE. REFERRED TO [facility] TO DISCUSS PT PLAN
[2019-04-13 12:34] VITALS: BP 131/80; PULSE 77; RESP 16; O2SAT 93
--- NOTE | 2019-04-13 12:35 | ED.RN ---
[facility] here to take pt to [facility]
== END 2019-04-13 12:35 ==
PROVIDERS: Emergency Provider Emergency Medicine; Family Provider Internal Medicine; PCP Internal Medicine
DX: R45.851 Suicidal ideations (principal); F41.9 Anxiety disorder, unspecified; F20.9 Schizophrenia, unspecified; E11.9 Type 2 diabetes mellitus without complications; I10 Essential (primary) hypertension; F32.9 Major depressive disorder, single episode, unspecified; Z79.84 Long term (current) use of oral hypoglycemic drugs; Z79.899 Other long term (current) drug therapy
CPT/HCPCS: 36415; 70450; 80048; 80307; 80320; 81001; 82140; 84703; 85025; 96360; 96361; 99285; J7030; A4216; G0480

== ENCOUNTER 2019-07-12 20:43 | Emergency (ER) | payer OTHER, MEDICARE, SELFPAY ==
[2019-07-12 20:45] VITALS: BP 132/84; PULSE 90; RESP 18; TEMP 36.6; O2SAT 94; BMI 44.0
--- NOTE | 2019-07-12 21:49 | CM.ED ---
Social Work Consult: Mental Health Informant: Dr. Smart Chief Complaint: Patient stating that patient spouse is cheating on me and wants patient to be placed in a psychiatric hospital so patient spouse can be with another women. Marital/Social history: to Ross Rodriges for the past 28 years. Has a 17 year old daughter, Kourtney, 23 year old daughter, Mayela and 27 year old daughter, Shu. Living Situation: Kourtney and Shu live with patient along with Ross. Shu is autistic. Mayela lives in [place]. Support/Resources: [facility]. Last appointment was last week with the nurse practitioner. History: No Education/Employment History: Denies any learning or comprehension issues. Stating to have completed high school. Patient stating to be on disability because I played crazy. Mental Health Treatment/History: Denies any history. Stating I am not crazy. Patient stating to have a history of inpatient psychiatric placement with last placement being 7 months ago. Patient stating to currently be taking psychiatric medications but to have stopped due to not being crazy. Patient stating I am not going to play crazy for the [employer], I know they are listening. Abuse Issues: Denies Substance Abuse History: Denies Risk to Self/Others: Denies any suicidal thoughts or history of. Mental Status Exam: A&Ox3 Appearance/General Behavior: Calm. Clean. Mood/Affect: Pleasant, elevated. Communication Pattern: Responds to questions. Thought Process: Patient denies any hallucinations, delusions. Patient stating to know that patient spouse is cheating on patient, patient presents as paranoid. Patient often appearing to be speaking to someone else. Assessment: Met with patient in room. Introduced self as well as vp digital marketing social media and crm role. Patient agreeable to meet with this vp digital marketing social media and crm. Patient stating to have no concerns of patient safety. Patient denies any plans or thoughts to hurt others. Patient stating he is doing this to me. Patient referring to patient spouse. Met with patient spouse, Ross. Ross stating to be concerned for daughters safety as Ross works 3rd shift and is not able to be home with patient. Ross stating that patient has been saying things. This vp digital marketing social media and crm inquiring if patient is taking medication. Ross stating to have given patient medication this morning and to have believed that patient took medication. Ross stating that patient did not take medication this evening. Ross stating that it is hard to know for sure if patient is taking medications. Ross stating to be concerned about patient returning to the community due to the safety of the family. This vp digital marketing social media and crm inquiring if patient has made any suicidal or homicidal thoughts at home, Ross denies patient stating any plans of hurting others or self. Telephone call from Kourtney, patient daughter. Kourtney stating that patient has been stating plan to kill spouse and the rest of the family. Kourtney stating that patient is stating to be god and that patient spouse will go to [facility] and the rest of the family will [facility]. This vp digital marketing social media and crm thanking Kourtney for this information and updating Kourtney that crisis will be coming to assess patient further. Collaborating with Dr. Smart. Plan will be to consult crisis as crisis is more familiar with patient. Telephone call to Pricilla, Arnav. Hand off provided. Arnav updated on social work assessment and note. Arnav to come and assess patient. Bryanna DECKER, SHERICE
[2019-07-12 22:15] LABS: Mucous, Urine 0 SEEN /hpf (<or=2+); Squamous Epithelial Cells - UA 0 SEEN /hpf (5-10)
--- NOTE | 2019-07-12 22:33 | ED.VISSUMM ---
- ER Visit Summary Date of Service: 07/12/19 Chief Complaint: Delusional History of Present Illness: The patient is a 49 F presents with delusional ideations became worse today. Patient states that when she had a hysterectomy they took her uterus out and put it back in. Patient denies any suicidal or homicidal ideations. states that the patient has been acting different today. Patient states that her wants to find another woman. Physical Examination: Vital signs are stable. Patient is afebrile. Patient is in no acute distress. Oral mucosa is pink and moist. Neck is supple. Trachea is midline. There is no JVD noted. Heart was regular rate and rhythm. Lungs are clear and equal bilaterally. Abdomen is soft. Bowel sounds are normal. There is no tenderness. There is no rebound or guarding noted. Skin is warm dry. Cranial nerves II through XII are intact. There are no focal motor or sensory deficits noted. Extremities are intact. There is no calf tenderness or edema. Patient does have a flat affect and a poverty of speech. Patient states she feels fine. Test Results: BC, basic metabolic profile, urinalysis, urine tox screen, and serum alcohol level were obtained and were all essentially within normal limits. Emergency Department Course and Treatment: lime kiln worker helper was in to evaluate the patient and placed a call to crisis. Crisis was in to evaluate the patient. He does not feel patient meets criteria for admission at this time. He will have the patient follow-up with her counselor tomorrow for further evaluation. Patient and family are agreeable with the plan. All questions were answered. Disposition: Discharge home Impression: Delusional behavior This note was generated with [employer] dictation software. It may contain incorrect words, spelling, and punctuation that were not noted in review of the chart prior to signing ED Disposition - Plan for ED Patient: Disposition: Home or Assisted Living Diagnosis: Delusions Instructions: SCHIZOPHRENIA, General Referrals: Paty Catalan DO [Primary Care Provider] - Counseling,Center [GROUP OF PHYSICIANS] - 1 Day
[2019-07-12 22:37] LABS: Color, Urine Yellow (Yellow); Glucose, Dipstick Normal (Normal); Ketone-Dipstick Negative (Negative); Leukocyte Esterase-Dipstick 500 /ul (Negative); Nitrite-Dipstick Negative (Negative); Occult Blood-Urine 150 /ul (Negative); Protein-Dipstick 15 mg/dl (Negative); Specific Gravity, Urine 1.025 (1.002-1.030); Urine Bilirubin Dipstick Negative (Negative); Urine Clarity Clear (Clear); Urine Urobilinogen Normal (Normal)
[2019-07-12 22:39] LABS: Alcohol, Blood (Medical)-Serum < 3.0 mg/dL; Anion Gap 4 (5-15); BUN 23 mg/dL (7-18); Calcium,Total 8.7 mg/dL (8.5-10.1); Chloride 106 mmol/L (98-107); Creatinine, Serum 1.28 mg/dL (0.55-1.02); EST Glomerular Filtration Rate 47 mL/min (>60); Est Glom Filt Rate - Afr Amer 56 mL/min (>60); Glucose 118 mg/dL (74-106); Potassium 3.9 mmol/L (3.5-5.1); Sodium Level 138 mmol/L (136-145)
[2019-07-12 22:51] LABS: White Blood Cells 0-5 SEEN /hpf (0-5)
[2019-07-12 22:53] LABS: Red Blood Cells-Urine 5-10 SEEN /hpf (0-5)
[2019-07-12 22:54] LABS: Bacteria 1+ /hpf (None Seen)
[2019-07-12 22:56] LABS: Amphetamine Urine VISTA NEGATIVE (<1000 ng/mL); Barbiturate Urine VISTA NEGATIVE (< 200 ng/mL); Benzodiazepine Urine VISTA NEGATIVE (< 200 ng/mL); Cocaine Urine VISTA NEGATIVE (< 300 ng/mL); Ecstacy Urine VISTA NEGATIVE (< 500 ng/mL); Methadone Urine VISTA NEGATIVE (< 300 ng/mL); PCP Urine VISTA NEGATIVE (< 25 ng/mL); THC Urine VISTA NEGATIVE (< 50 ng/mL); Vista UDS pH Range 5
[2019-07-12 22:57] LABS: Absolute Lymphocyte Count 2.87 X10^3/uL (0.83-4.51); Absolute Neutrophil Count 6.1 X10^3/uL (2.0-7.7); Basophil# 0.03 X10^3/uL; Basophil% 0.3 % (0-1); Eosinophil# 0.74 X10^3/uL; Eosinophils% 6.9 % (0-5); Hemoglobin 12.5 g/dL (12.0-15.0); Lymphocyte # 2.87 X10^3/ul (4.0); Lymphocyte % 26.6 % (19-41); Mean Corp Hgb Conc 32.1 g/dL (32-36); Mean Corpuscular Hgb 29.6 pg (27.0-32.0); Mean Corpuscular Volume 92.2 fL (81-99); Mean Platelet Vol. 9.7 fl (6.2-12.0); Monocyte# 1.01 X10^3/uL; Monocyte% 9.4 % (0-10); NRBC Flagged by Analyzer 0 % (0-5); Neutrophil # 6.08 X10^3/uL (2.7-7.7); Neutrophil % 56.2 % (47-70); Platelet Count 225 K/mm3 (150-450); RBC Distribution Width CV 12.1 % (11.6-14.6); RBC Distribution Width SD 40.6 fl (35.1-43.9); Red Blood Count 4.23 M/mm3 (4.2-5.4); White Blood Count 10.8 K/mm3 (4.4-11.0)
[2019-07-12 23:02] VITALS: BP 130/93; PULSE 92; RESP 18; O2SAT 95
--- NOTE | 2019-07-13 00:27 | ED.RN ---
DAUGHTER CALLED WONDERING WHY WE WERE RELEASING HER MOTHER. THEY SAID HER BEHAVIOR IS ERRATIC AND THEY DON'T FEEL SAFE AT TIMES. STATES I TALKED TO CRISIS AND HE SAID THAT SHE DOES NOT QUALIFY FOR INPATIENT ADMISSION AND SHE IS AN ADULT AND IS ABLE TO MAKE HER OWN DECISIONS, HOWEVER IF THEY DO NOT FEEL SAFE WHEN SHE COMES HOME THEY NEED TO CALL 911. THE DAUGHTER WAS GOING TO TRY AND TEXT HER DAD TO HAVE HIM CALL US. NIGHTTIME MEDICATIONS ORDERED FOR THE PATIENT IN CASE SHE IS STAYING OVERNIGHT.
[2019-07-13] MEDS: Carvedilol 3.125 MG TABLET PO (00:54)
[2019-07-13] MEDS: Haloperidol 5 MG Tablet PO (00:54)
[2019-07-13] MEDS: OLANZapine 5 MG/TAB TAB.RAPDIS 15 MG PO (00:54)
--- NOTE | 2019-07-13 00:56 | ED.RN ---
SPOUSE JOSE CALLED BACK STATING HE WOULD BE BY THE HOSPITAL AT 0700 TO PICK PT UP HE IS AT WORK. ATTEMPTED TO GET TAXI SERVICE FOR HER BUT [facility] WAS CLOSED AT 0005.
--- NOTE | 2019-07-13 01:21 | ED.RN ---
PATIENT IS CURRENTLY SLEEPING. SHE HAS BEEN DISCHARGED FOR 109 MINUTES. SHE BELIEVES HER WILL GET HER WHEN HE WAKES UP PER CRISTIANO HUDSON. WE CURRENTLY HAVE HER A WAIT RIDE.
--- NOTE | 2019-07-13 04:38 | ED.RN ---
PATIENT SLEEPING. WAITING ON RIDE.
--- NOTE | 2019-07-13 06:29 | ED.RN ---
PATIENT IS STILL SLEEPING. WAITING ON RIDE HOME.
--- NOTE | 2019-07-13 07:11 | ED.RN ---
PATIENT'S JUST PICKED PATIENT UP.
== END 2019-07-13 07:11 | disposition home or self-care (01) ==
PROVIDERS: Emergency Provider Emergency Medicine; PCP Internal Medicine; Referring Provider Internal Medicine
DX: F22 Delusional disorders (principal); R35.0 Frequency of micturition; E11.9 Type 2 diabetes mellitus without complications; Z86.718 Personal history of other venous thrombosis and embolism; Z79.84 Long term (current) use of oral hypoglycemic drugs; Z79.01 Long term (current) use of anticoagulants; Z79.899 Other long term (current) drug therapy
CPT/HCPCS: 36415; 80048; 80307; 80320; 81001; 85025; 99285; G0480

== ENCOUNTER 2019-07-20 17:54 | Emergency (ER) | payer OTHER, MEDICARE, SELFPAY ==
[2019-07-20 17:55] VITALS: BP 132/77; PULSE 101; RESP 18; TEMP 36.7; O2SAT 96; BMI 41.4
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
[2019-07-20 19:05] LABS: Anion Gap 2 (5-15); BUN 14 mg/dL (7-18); BUN/Creat Ratio 13.9 RATIO (10-20); Calcium,Total 8.8 mg/dL (8.5-10.1); Chloride 110 mmol/L (98-107); Creatinine, Serum 1.01 mg/dL (0.55-1.02); EST Glomerular Filtration Rate 61 mL/min (>60); Est Glom Filt Rate - Afr Amer 74 mL/min (>60); Glucose 99 mg/dL (74-106); Potassium 3.7 mmol/L (3.5-5.1); Sodium Level 139 mmol/L (136-145)
[2019-07-20 19:07] LABS: Absolute Neutrophil Count 4.4 X10^3/uL (2.0-7.7); Basophil# 0.02 X10^3/uL; Basophil% 0.3 % (0-1); Eosinophil# 0.22 X10^3/uL; Eosinophils% 3.2 % (0-5); Hematocrit 41.7 % (37-47); Hemoglobin 13.5 g/dL (12.0-15.0); Lymphocyte % 24.6 % (19-41); Mean Corp Hgb Conc 32.4 g/dL (32-36); Mean Corpuscular Hgb 29.4 pg (27.0-32.0); Mean Corpuscular Volume 90.8 fL (81-99); Mean Platelet Vol. 9.7 fl (6.2-12.0); Monocyte# 0.56 X10^3/uL; Monocyte% 8.1 % (0-10); NRBC Flagged by Analyzer 0 % (0-5); Neutrophil # 4.38 X10^3/uL (2.7-7.7); Neutrophil % 63.5 % (47-70); Platelet Count 236 K/mm3 (150-450); RBC Distribution Width CV 12.3 % (11.6-14.6); RBC Distribution Width SD 40.5 fl (35.1-43.9); Red Blood Count 4.59 M/mm3 (4.2-5.4); White Blood Count 6.9 K/mm3 (4.4-11.0)
[2019-07-20 19:26] LABS: Bacteria 0 SEEN /hpf (None Seen); Mucous, Urine 0 SEEN /hpf (<or=2+); Red Blood Cells-Urine 0 SEEN /hpf (0-5)
[2019-07-20 19:29] LABS: Color, Urine Yellow (Yellow); Glucose, Dipstick Normal (Normal); Ketone-Dipstick Negative (Negative); Leukocyte Esterase-Dipstick 25 /ul (Negative); Nitrite-Dipstick Negative (Negative); Occult Blood-Urine Negative /ul (Negative); Protein-Dipstick Negative (Negative); Specific Gravity, Urine 1.025 (1.002-1.030); Urine Bilirubin Dipstick Negative (Negative); Urine Clarity Sl. Cloudy (Clear); Urine Urobilinogen Normal (Normal)
[2019-07-20 19:38] LABS: Squamous Epithelial Cells - UA 5-10 SEEN /hpf (5-10); White Blood Cells 0-5 SEEN /hpf (0-5)
[2019-07-20 20:00] VITALS: BP 131/74; PULSE 96; RESP 18; O2SAT 97
[2019-07-20 21:34] VITALS: BP 130/75; PULSE 86; RESP 18; O2SAT 96
--- NOTE | 2019-07-20 21:34 | ED.RN ---
DURING DISCHARGE AFTER REVIEWING DISCHARGE INSTRUCTIONS AND AND FOLLOW UP PATIENT STARTS YELLING I KNOW WHAT YOU DID OVER AND OVER AND YOU FALSIFIED MY RECORDS TO MAKE ME LOOK CRAZY, I KNOW YOU DID! PT DECLINES TO ANSWER ANY MORE OF MY QUESTIONS ABOUT HER DISCHARGE TO ASSESS HER UNDERSTANDING. SHE AMBULATES HER SELF OUT OF DEPARTMENT WITH STEADY GAIT WITH SIGNIFICANT OTHER AT SIDE.
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
== END 2019-07-20 21:37 | disposition home or self-care (01) ==
PROVIDERS: Emergency Provider Emergency Medicine; PCP Internal Medicine
DX: F20.2 Catatonic schizophrenia (principal); F31.9 Bipolar disorder, unspecified; F29 Unspecified psychosis not due to a substance or known physiological condition; H53.8 Other visual disturbances; R51 Headache; Z91.14 Patient's other noncompliance with medication regimen; S50.11XA Contusion of right forearm, initial encounter; V43.52XA Car driver injured in collision with other type car in traffic accident, initial encounter; Y93.9 Activity, unspecified; Y92.9 Unspecified place or not applicable; E66.9 Obesity, unspecified; I11.0 Hypertensive heart disease with heart failure; I50.9 Heart failure, unspecified; G47.33 Obstructive sleep apnea (adult) (pediatric); Z86.718 Personal history of other venous thrombosis and embolism; Z79.899 Other long term (current) drug therapy; Z87.891 Personal history of nicotine dependence
CPT/HCPCS: 70450; 80048; 81001; 85025; 99285

== ENCOUNTER 2019-07-29 16:25 | Emergency (ER) | payer OTHER, MEDICARE, SELFPAY ==
[2019-07-29 16:26] VITALS: BP 138/85; PULSE 109; RESP 16; TEMP 37.3; O2SAT 98; BMI 39.4
[2019-07-29 18:05] LABS: Absolute Lymphocyte Count 1.68 X10^3/uL (0.83-4.51); Absolute Neutrophil Count 4.3 X10^3/uL (2.0-7.7); Basophil# 0.02 X10^3/uL; Basophil% 0.3 % (0-1); Eosinophils% 2.9 % (0-5); Hematocrit 41.9 % (37-47); Hemoglobin 13.5 g/dL (12.0-15.0); Lymphocyte # 1.68 X10^3/ul (4.0); Lymphocyte % 24.2 % (19-41); Mean Corp Hgb Conc 32.2 g/dL (32-36); Mean Corpuscular Hgb 29.2 pg (27.0-32.0); Mean Corpuscular Volume 90.7 fL (81-99); Mean Platelet Vol. 9.7 fl (6.2-12.0); Monocyte% 10.1 % (0-10); NRBC Flagged by Analyzer 0 % (0-5); Neutrophil # 4.31 X10^3/uL (2.7-7.7); Neutrophil % 62.2 % (47-70); Platelet Count 239 K/mm3 (150-450); RBC Distribution Width CV 12.4 % (11.6-14.6); RBC Distribution Width SD 40.8 fl (35.1-43.9); Red Blood Count 4.62 M/mm3 (4.2-5.4); White Blood Count 6.9 K/mm3 (4.4-11.0)
--- NOTE | 2019-07-29 18:18 | ED.VIS.PSYCH ---
History of Present Illness Informant: Patient, - - police Onset: Yesterday Context: Sudden Onset Conflict: Family, Work, Financial Timing: Continuous Current Severity: Severe Maximum Severity: Severe Worsened by: Situational factors Relieved by: nothing Associated Symptoms: Pressured Speech, Agitated, Paranoia, Visual Hallucinations, Auditory Hallucinations Narrative: 49-year-old female past medical history of paranoid schizophrenia presents to the emergency department today because she is brought in by the police under pink slip. Her family called the police because the patient has been more confused and has been hallucinating paranoid and they brought her in on a pink slip by request of her family. She has been non-compliant with her medications. Prior similar symptoms: Yes Recent Illness/Hospitalization: Yes <Tom Zhou - Last Filed: 07/29/19 18:18> <Jean Marie Shipley - Last Filed: 07/29/19 20:56> Chief Complaint: Mental Health Past Medical History Prior records reviewed: Yes Past Medical History: - - Paranoid schizophrenia Surgical History: cholecystectomy, hysterectomy, - - nasa surgery Lives: With Family Smoking Status: Former smoker - Family History Maternal Family History: Family History (Last Reviewed 07/10/18 @ 06:23 by Quinten Trejo MD) Mother Breast cancer Family History: Reports: Heart Disease Paternal Family History: Family History (Last Reviewed 07/10/18 @ 06:23 by Quinten Trejo MD) Mother Breast cancer Family History: Reports: Cancer, - - colon cancer <Tom Zhou - Last Filed: 07/29/19 18:18> - Family History Maternal Family History: Family History (Last Reviewed 07/10/18 @ 06:23 by Quinten Trejo MD) Mother Breast cancer Paternal Family History: Family History (Last Reviewed 07/10/18 @ 06:23 by Quinten Trejo MD) Mother Breast cancer <Jean Marie Shipley - Last Filed: 07/29/19 20:56> - Allergies and Home Meds Allergies/Adverse Reactions: Allergies No Known Allergies Allergy (Verified 07/12/19 20:47) Primary Care Physician: Paty Catalan DO [Primary Care Provider] - Review of Systems All systems negative except as indicated General: Denies: Chills, Fever Eyes: Denies: Visual changes - bilaterally, Blurred Vision - bilaterally, Diplopia ENT: Denies: Rhinorrhea, Sore throat Cardiovascular: Denies: Chest pain, Palpitations Respiratory: Denies: Dyspnea, Cough, Sputum Gastrointestinal: Denies: Abdominal pain, Nausea, Vomiting Genitourinary: Denies: Dysuria, Hematuria, Frequency Musculoskeletal: Denies: Myalgias, Arthralgias, Neck pain, Back pain Skin: Denies: Rash, Abscess, Abrasions, Wounds Neurological: Denies: Headache, Weakness, Parasthesia Psych: Reports: - - Hallucinations and delusions. Denies: Depression, Anxiety, Suicidal thoughts, Suicidal ideations <Tom Zhou - Last Filed: 07/29/19 18:18> Physical Exam Vital Signs/Narrative: Vital Signs Temp Pulse Resp BP Pulse Ox 07/29/19 16:26 99.1 F 109 H 16 138/85 H 98 Inital Vital Signs reviewed: Yes General: Well nourished, Well developed Head: Normocephalic, Atraumatic Eyes: Perrl, EOMI ENT: Moist mucous membranes Neck: Supple, Nontender Cardiovascular: Regular rate, Regular rhythm Respiratory: No distress, CTA bilaterally, Chest nontender Abdomen: Soft, Nontender, Nondistended Back: Nontender, Normal Inspection Extremities: Nontender, No Edema Skin: Normal color, No rash Neurological: Alert, Oriented x3, Normal Gait Psych: No suicidal or homicidal ideation, Pressured Speech, Flight of Ideas, Hallucinations, Delusions, Paranoid Ideation, Poor Insight, Poor Judgement <Tom Zhou - Last Filed: 07/29/19 18:18> Vital Signs/Narrative: Vital Signs Temp Pulse Resp BP Pulse Ox 07/29/19 16:26 99.1 F 109 H 16 138/85 H 98 <Jean Marie Shipley - Last Filed: 07/29/19 20:56> Diagnostic/Tx/Re-eval Patient has hallucinations delusions and paranoia. At this time pink slip will be upheld she will be seen by social work and will be transferred to a psychiatric facility. Laboratory work-up is stable. The patient has not needed any medications for edition her anxiety and she has been resting comfortably. is agreeable with plan. <Tom Zhou - Last Filed: 07/29/19 18:18> Evaluating this patient with our physician anesthesiologist assistant certified Tom. Patient is a history of schizophrenia. She is not taking her medications for last 3 weeks. She started to have hallucinations. And acting abnormally. She is accompanied by her . Middle-aged female no acute distress vital signs stable afebrile. H EENT exam under remarkable. Atraumatic. Pupils round react light. Neck nontender. Lungs clear to auscultation. Heart regular rhythm no murmur. Abdomen soft. Obese. Nontender. No peritoneal signs. Patient is moving all 4 extremities. Back nontender. Skin unremarkable. No track gonzalez. Neurologically she is awake and alert with no focal motor deficits. I did review the patient's labs including CBC, BMP and test all were negative. Tox screen and alcohol were negative also. Patient is medically cleared awaiting transfer to a psychiatric facility. Impressions: Acute exacerbation of schizophrenia Noncompliance with medications <Jean Marie Shipley - Last Filed: 07/29/19 20:56> ED Disposition <Tom Zhou - Last Filed: 07/29/19 18:18> <Jean Marie Shipley - Last Filed: 07/29/19 20:56> - Plan for ED Patient: Disposition: Psychiatric Hospital or Unit Diagnosis: Bipolar disorder Referrals: Paty Catalan DO [Primary Care Provider] -
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
--- NOTE | 2019-07-29 18:24 | CT_ITS ---
STUDY: CT BRAIN WITHOUT CONTRAST REASON FOR EXAM: Female, 49 years old. HEAD TRAUMA ON ELIQUIS, HX SCHIZOPHRENIA, BIPOLAR AND SEVERE PSYCH HX, CHF, HTN, PE AND DVT''S RADIATION DOSAGE (If Supplied By Facility): CTDIvol = ( 44.99 ) mGy, DLP = ( 829.85 ) mGycm TECHNIQUE: Transaxial CT imaging of the brain was performed without administration of intravenous contrast material. Individualized dose optimization techniques were used for this CT. COMPARISON: No relevant priors. FINDINGS: Normal soft tissue structures. Normal calvarium. Normal size ventricles and extra-axial spaces for the patient''s age. Normal white matter tracts of the cerebral hemispheres. Normal basal ganglia and thalami. Normal brainstem. Normal cerebellum. There is no intracranial hemorrhage. There are no findings of an acute ischemic infarction. Normal visualized paranasal sinuses. CT/Brain/Head without Contrast IMPRESSION: No acute intracranial hemorrhage or mass effect. Electronically Signed: Emery Delgado MD ([place]) at 19:16 EST , Service support ,
[2019-07-29 18:25] LABS: Anion Gap 4 (5-15); BUN 18 mg/dL (7-18); BUN/Creat Ratio 16.7 RATIO (10-20); Calcium,Total 8.9 mg/dL (8.5-10.1); Chloride 107 mmol/L (98-107); Creatinine, Serum 1.08 mg/dL (0.55-1.02); EST Glomerular Filtration Rate 57 mL/min (>60); Est Glom Filt Rate - Afr Amer 69 mL/min (>60); Estimated Creatinine Clearance 53.22 ml/min; Glucose 98 mg/dL (74-106); Potassium 3.5 mmol/L (3.5-5.1); Sodium Level 140 mmol/L (136-145)
[2019-07-29 18:46] LABS: Alcohol, Blood (Medical)-Serum < 3.0 mg/dL
[2019-07-29 18:55] LABS: Internal QC Validated? YES +Cl - CLEAR BKGD; Pregnancy, Serum, hCG Quali. NEGATIVE Negative
[2019-07-29 20:49] LABS: Amphetamine Urine VISTA NEGATIVE (<1000 ng/mL); Barbiturate Urine VISTA NEGATIVE (< 200 ng/mL); Benzodiazepine Urine VISTA NEGATIVE (< 200 ng/mL); Cocaine Urine VISTA NEGATIVE (< 300 ng/mL); Ecstacy Urine VISTA NEGATIVE (< 500 ng/mL); Methadone Urine VISTA NEGATIVE (< 300 ng/mL); PCP Urine VISTA NEGATIVE (< 25 ng/mL); THC Urine VISTA NEGATIVE (< 50 ng/mL); Vista UDS pH Range 7
--- NOTE | 2019-07-29 21:12 | CM.ED ---
Social Work Patient medically cleared per Dr. Shipley. Telephone call to [facility]. They accept patient insurance. Referral faxed. Pending approval. Bryanna DECKER, SHERICE
--- NOTE | 2019-07-29 22:00 | CM.ED ---
Social Work Telephone call from [facility]. Patient noted to have history of sleep apnea and requesting if Bi-pap is able to come with patient. Telephone call to patient spouse, Behzad. Behzad is able to bring Bi-pap in and would like called when it is confirmed that patient is accepted. Updated [facility]. [facility] continuing to be reviewing clinicals. Bryanna Quiroga MSW, SHERICE
--- NOTE | 2019-07-29 22:07 | RAD_ITS ---
STUDY: X-RAY CHEST REASON FOR EXAM: Female, 49 years old. MEDICAL CLEARANCE. CONFUSION. EXTENSIVE PSYCH HX. TECHNIQUE: Single AP portable view of the chest. COMPARISON: Prior study of 03/14/2019 FINDINGS: The lungs are clear and expanded. There is no demonstrated pleural abnormality. Normal size heart. Normal mediastinum and payton. Normal visualized pulmonary arteries. Normal visualized aortic arch and descending thoracic aorta. Normal visualized thoracic spine. Normal visualized ribs, clavicles, and shoulders. There is no demonstrated abnormality of the visualized soft tissue structures of the upper abdomen. RAD/Chest 1 View (Portable) IMPRESSION: Normal x-ray examination of the chest. Electronically Signed: Geoff Carrero MD at 22:36 EST , Service support ,
--- NOTE | 2019-07-29 22:07 | EKG12_ITS ---
Test Reason : [facility] [place] Blood Pressure : / mmHG Vent. Rate : 098 BPM Atrial Rate : 098 BPM P-R Int : 156 ms QRS Dur : 086 ms QT Int : 372 ms P-R-T Axes : 025 -11 026 degrees QTc Int : 474 ms Normal sinus rhythm Normal ECG Confirmed by CARLOS LEON, ERROL ([id number]), scientific editor MAGGI NORMAN ([id number]) on 08/01/2019 8:23:03 AM Referred By: COSME Confirmed By:ERROL GONZALEZ MD
--- NOTE | 2019-07-29 22:33 | CM.ED ---
Social Work Telephone call from [facility], requesting for Chest X-Ray and EKG to be completed. Updated Dr. Shipley. Bryanna Quiroga MSW, DIAGNOSTIC IMAGING MANAGER
[2019-07-30 00:30] VITALS: RESP 15
--- NOTE | 2019-07-30 01:06 | NURSING ---
ACCEPTED TO [facility] DR. GONZALEZ [phone] REPORT
[2019-07-30 02:00] VITALS: RESP 15
[2019-07-30 02:29] VITALS: BP 110/63; PULSE 78; RESP 14; O2SAT 94
[2019-07-30 02:38] VITALS: BP 110/63; PULSE 78; RESP 14; O2SAT 94
== END 2019-07-30 02:39 ==
PROVIDERS: Physician Assistant Medical; Emergency Provider Emergency Medicine; PCP Internal Medicine
DX: F20.0 Paranoid schizophrenia (principal); F31.9 Bipolar disorder, unspecified; Z91.14 Patient's other noncompliance with medication regimen; Z79.899 Other long term (current) drug therapy; Z87.891 Personal history of nicotine dependence
CPT/HCPCS: 70450; 71045; 80048; 80307; 80320; 84703; 85025; 93005; 99283; G0480

== ENCOUNTER → 2019-10-09 12:15 | Outpatient (CLI) | payer OTHER, MEDICARE, SELFPAY | PROVIDERS: PCP Internal Medicine; Referring Provider Nurse Practitioner; Visit Provider Nurse Practitioner | DX: R05 Cough (principal) | CPT/HCPCS: 87633; 87804; 87807; 94799 ==

== ENCOUNTER → 2020-06-11 13:17 | Outpatient (CLI) | payer OTHER, MEDICARE, SELFPAY ==
--- NOTE | 2020-06-11 13:22 | RAD_ITS ---
STUDY: X-RAY CHEST REASON FOR EXAM: Female, 50 years old. SOB, INCREASING SOB AND ANTERIOR CP TECHNIQUE: PA and lateral views of the chest. COMPARISON: Comparison is made with prior study dated 07/29/2019. FINDINGS: Stable mild elevation of the right hemidiaphragm Stable mild increased markings in the right infrahilar region most likely secondary to the elevation of the right hemidiaphragm. There is no demonstrated pleural abnormality. Normal size heart. Normal mediastinum and payton. Normal visualized pulmonary arteries. Normal visualized aortic arch and descending thoracic aorta. There are mild degenerative changes of the visualized thoracic spine. Normal visualized ribs, clavicles, and shoulders. There is no demonstrated abnormality of the visualized soft tissue structures of the upper abdomen. RAD/Chest PA and Lateral IMPRESSION: Stable elevation of the right hemidiaphragm with mild increased right infrahilar markings. Electronically Signed: Jaxon Zhang, at 14:03 EST , Service support ,
== END ==
PROVIDERS: PCP Internal Medicine; Visit Provider Nurse Practitioner
DX: R06.02 Shortness of breath (principal)
CPT/HCPCS: 71046

== ENCOUNTER 2020-07-19 14:50 | Emergency (ER) | payer OTHER, MEDICARE, SELFPAY ==
[2020-07-19 14:51] VITALS: BP 148/100; PULSE 113; RESP 18; TEMP 35.8; O2SAT 93; BMI 45.3
--- NOTE | 2020-07-19 15:24 | EKG12_ITS ---
Test Reason : MEDICAL CLEARANCE Blood Pressure : / mmHG Vent. Rate : 094 BPM Atrial Rate : 094 BPM P-R Int : 168 ms QRS Dur : 090 ms QT Int : 354 ms P-R-T Axes : 030 -17 020 degrees QTc Int : 442 ms Normal sinus rhythm Nonspecific T wave abnormality Abnormal ECG Confirmed by CARLOS LEON, ERROL ([id number]), clinical editor GEOFFRYE HERNANDEZ ([id number]) on 07/23/2020 10:50:47 AM Referred By: BHAVANI Confirmed By:ERROL GONZALEZ MD
[2020-07-19 15:48] LABS: Absolute Lymphocyte Count 1.85 X10^3/uL (0.83-4.51); Absolute Neutrophil Count 3.9 X10^3/uL (2.0-7.7); Basophil# 0.02 X10^3/uL; Basophil% 0.3 % (0-1); Eosinophil# 0.15 X10^3/uL; Eosinophils% 2.3 % (0-5); Hematocrit 45.4 % (37-47); Hemoglobin 15.1 g/dL (12.0-15.0); Lymphocyte # 1.85 X10^3/ul (4.0); Lymphocyte % 28.1 % (19-41); Mean Corp Hgb Conc 33.3 g/dL (32-36); Mean Corpuscular Hgb 30.5 pg (27.0-32.0); Mean Corpuscular Volume 91.7 fL (81-99); Mean Platelet Vol. 10.1 fl (6.2-12.0); Monocyte# 0.64 X10^3/uL; Monocyte% 9.7 % (0-10); NRBC Flagged by Analyzer 0 % (0-5); Neutrophil # 3.91 X10^3/uL (2.7-7.7); Neutrophil % 59.3 % (47-70); Platelet Count 222 K/mm3 (150-450); RBC Distribution Width CV 12.2 % (11.6-14.6); Red Blood Count 4.95 M/mm3 (4.2-5.4); White Blood Count 6.6 K/mm3 (4.4-11.0)
[2020-07-19 16:03] VITALS: RESP 18
[2020-07-19 16:28] LABS: Alcohol, Blood (Medical)-Serum < 3.0 mg/dL
--- NOTE | 2020-07-19 16:31 | ED.VIS.GEN ---
History of Present Illness Chief Complaint: Suicidal Informant: Patient, Family Narrative: 50-year-old female with a history of paranoid schizophrenia is brought in by her daughter. Patient tells me that she is hearing voices. She is very vague in her answers and offers minimal explanations. I asked her if this is a new finding she tells me she is not sure. I asked her if she has been eating or drinking and she says may be. She does not make eye contact with me it is difficult to get any information out of her. The daughter that accompanies her tells me that she does not live in the house and really does not know what is going on other than the patient asked to be brought here to the hospital. Patient was last admitted to psychiatric facility through our hospital 11 months ago. She tells me she saw her psychiatrist via video chat a few days ago. She states she has been taking her medications. She cannot tell me or will not tell me if anything has happened in the past several days that would trigger a decompensation. Patient states that she has had thoughts of suicide but does not have a plan but is not actively suicidal. Patient tested positive for Covid on 27 June. She is now 22 days past that initial test and does not need to quarantine or isolate per the Centers for Disease Control. - Past Medical History (1) Bipolar disorder Status: Chronic (2) CHF (congestive heart failure) Status: Chronic (3) Catatonia schizophrenia Status: Chronic (4) DVT (deep venous thrombosis) Status: Chronic (5) HTN (hypertension) Status: Chronic (6) BALDEMAR (obstructive sleep apnea) Status: Chronic Past Medical History - Allergies and Home Meds Allergies/Adverse Reactions: Allergies No Known Allergies Allergy (Verified 07/19/20 14:50) Primary Care Physician: Paty Catalan DO [Primary Care Provider] - Surgical History: cholecystectomy, hysterectomy, - - nasa surgery Lives: With Family Smoking Status: Never smoker Drugs: None - Family History Maternal Family History: Family History (Last Reviewed 07/10/18 @ 06:[address] Quinten Trejo MD) Mother Breast cancer Family History: Reports: Heart Disease Paternal Family History: Family History (Last Reviewed 07/10/18 @ 06:[address] Quinten Trejo MD) Mother Breast cancer Family History: Reports: Cancer, - - colon cancer Review of Systems General: Denies: Chills, Fever, Sweats Eyes: Denies: Visual changes - bilaterally, Diplopia ENT: Denies: Rhinorrhea, Sore throat Cardiovascular: Denies: Chest pain, Palpitations Respiratory: Denies: Dyspnea, Cough, Dyspnea on exertion Gastrointestinal: Denies: Abdominal pain, Nausea, Vomiting, Diarrhea, Melena, Hematochezia Genitourinary: Denies: Dysuria, Hematuria, Frequency Musculoskeletal: Denies: Back pain, Extremity Pain Skin: Denies: Rash, Wounds Neurological: Denies: Headache, Weakness, Numbness Psych: Reports: Depression. Denies: Suicidal thoughts, Suicidal ideations Physical Exam Vital Signs/Narrative: Vital Signs Temp Pulse Resp BP Pulse Ox 07/19/20 16:03 18 07/19/20 14:51 96.4 F L 113 H 18 148/100 H 93 Inital Vital Signs reviewed: Yes General: Well nourished, Well developed, Obese, No Acute Distress Head: Normocephalic, Atraumatic Eyes: Perrl, EOMI ENT: Moist mucous membranes, No rhinorrhea Neck: Supple, Nontender Cardiovascular: Regular rate, Regular rhythm, No murmurs Respiratory: No distress, CTA bilaterally, Chest nontender Abdomen: Soft, Nontender, Nondistended, Normal bowel sounds Back: Nontender, Normal Inspection Extremities: Nontender, No edema Skin: Normal color, No rash Neurological: Alert, Oriented x3, Cranial nerves II-XII grossly intact, Normal Strength, Normal Sensation Psychological: - - Patient with blunted affect. She rolls away and does not make eye contact with me when I asked her questions. Diagnostic/Tx/Re-eval Laboratory Last Values WBC 6.6 K/mm3 (4.4-11.0) 07/19/20 15:40 RBC 4.95 M/mm3 (4.2-5.4) 07/19/20 15:40 Hgb 15.1 g/dL (12.0-15.0) H 07/19/20 15:40 Hct 45.4 % (37-47) 07/19/20 15:40 MCV 91.7 fL (81-99) 07/19/20 15:40 MCH 30.5 pg (27.0-32.0) 07/19/20 15:40 MCHC 33.3 g/dL (32-36) 07/19/20 15:40 RDW Std Deviation 41.0 fl (35.1-43.9) 07/19/20 15:40 RDW Coeff of Pato 12.2 % (11.6-14.6) 07/19/20 15:40 Plt Count 222 K/mm3 (150-450) 07/19/20 15:40 MPV 10.1 fl (6.2-12.0) 07/19/20 15:40 Immature Gran % (Auto) 0.300 % (0.0-0.9) 07/19/20 15:40 Neut % (Auto) 59.3 % (47-70) 07/19/20 15:40 Lymph % (Auto) 28.1 % (19-41) 07/19/20 15:40 Tyler % (Auto) 9.7 % (0-10) 07/19/20 15:40 Eos % (Auto) 2.3 % (0-5) 07/19/20 15:40 Baso % (Auto) 0.3 % (0-1) 07/19/20 15:40 Absolute Neuts (auto) 3.9 X10^3/uL (2.0-7.7) 07/19/20 15:40 Absolute Lymphs (auto) 1.85 X10^3/uL (0.83-4.51) 07/19/20 15:40 Nucleated RBC % 0 % (0-5) 07/19/20 15:40 Sodium 141 mmol/L (136-145) 07/19/20 15:40 Potassium 3.7 mmol/L (3.5-5.1) 07/19/20 15:40 Chloride 110 mmol/L (98-107) H 07/19/20 15:40 Carbon Dioxide 27.0 mmol/L (21.0-32.0) 07/19/20 15:40 Anion Gap 4 (5-15) L 07/19/20 15:40 BUN 16 mg/dL (7-18) 07/19/20 15:40 Creatinine 0.98 mg/dL (0.55-1.02) 07/19/20 15:40 Estim Creat Clear Calc 55.55 ml/min 07/19/20 15:40 Est GFR (MDRD) Af Amer 77 mL/min (>60) 07/19/20 15:40 Est GFR (MDRD) Non-Af 64 mL/min (>60) 07/19/20 15:40 BUN/Creatinine Ratio 16.4 RATIO (10-20) 07/19/20 15:40 Glucose 88 mg/dL (74-106) 07/19/20 15:40 Calcium 9.0 mg/dL (8.5-10.1) 07/19/20 15:40 Total Bilirubin 0.80 mg/dL (0.20-1.00) 07/19/20 15:40 AST 22 U/L (15-37) 07/19/20 15:40 ALT 42 U/L (13-56) 07/19/20 15:40 Alkaline Phosphatase 95 U/L (45-117) 07/19/20 15:40 Total Protein 7.5 g/dL (6.4-8.2) 07/19/20 15:40 Albumin 3.4 g/dL (3.2-5.0) 07/19/20 15:40 Globulin 4.1 g/dL (2.2-4.2) 07/19/20 15:40 Albumin/Globulin Ratio 0.8 RATIO (0.9-2.4) L 07/19/20 15:40 Serum , Qual NEGATIVE Negative 07/19/20 15:40 Ethyl Alcohol < 3.0 mg/dL 07/19/20 15:40 - EKG Initial EKG Interpretation: Sinus Rhythm - EKG demonstrates normal sinus rhythm at a rate of 94 with no concerning features of ACS or ectopy. - Medical Decision Making Patient tested positive for Covid on 27 June. She is now 22 days past that initial test and does not need to quarantine or isolate per the Centers for Disease Control. It is the medical communities recommendation that after a positive test the patient not have immediate further Covid testing (aka to see if the infection has cleared) as there may still be noninfectious viral particles that could result in a positive test. I asked our social services specialist to evaluate the patient. They are attempting to reach her and other family members there may be provide us more insight into her situation. Disposition will be made after that. Patient denies being currently suicidal to social work. The mom states that she wants to come up with the patient and have her take her meds with her at home. The patient is seems extremely gamy. Her answers to questions are vague and variable. I think that there is something that is of secondary gain here that we are not being informed of. ED Disposition - Plan for ED Patient: Disposition: Home or Assisted Living Diagnosis: Bipolar disorder, Schizophrenia Instructions: ED Bipolar Disorder Referrals: Paty Catalan, [Primary Care Provider] - As Needed Counseling,Center [GROUP OF PHYSICIANS] - As soon as possible
[2020-07-19 16:32] LABS: ALB/GLOB Ratio 0.8 RATIO (0.9-2.4); AST(SGOT) 22 U/L (15-37); Alanine Aminotransfer ALT/SGPT 42 U/L (13-56); Albumin, Serum 3.4 g/dL (3.2-5.0); Alkaline Phosphatase 95 U/L (45-117); Anion Gap 4 (5-15); BUN 16 mg/dL (7-18); BUN/Creat Ratio 16.4 RATIO (10-20); Chloride 110 mmol/L (98-107); Creatinine, Serum 0.98 mg/dL (0.55-1.02); EST Glomerular Filtration Rate 64 mL/min (>60); Est Glom Filt Rate - Afr Amer 77 mL/min (>60); Estimated Creatinine Clearance 55.55 ml/min; Globulin 4.1 g/dL (2.2-4.2); Glucose 88 mg/dL (74-106); Potassium 3.7 mmol/L (3.5-5.1); Protein, Total 7.5 g/dL (6.4-8.2); Sodium Level 141 mmol/L (136-145)
[2020-07-19 16:41] LABS: Internal QC Validated? YES +Cl - CLEAR BKGD; Pregnancy, Serum, hCG Quali. NEGATIVE Negative
[2020-07-19 17:02] VITALS: RESP 16
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
[2020-07-19 17:40] VITALS: PULSE 110; RESP 17; O2SAT 94
[2020-07-19 18:00] LABS: Amphetamine Urine VISTA NEGATIVE (<1000 ng/mL); Barbiturate Urine VISTA NEGATIVE (< 200 ng/mL); Benzodiazepine Urine VISTA NEGATIVE (< 200 ng/mL); Cocaine Urine VISTA NEGATIVE (< 300 ng/mL); Ecstacy Urine VISTA NEGATIVE (< 500 ng/mL); Methadone Urine VISTA NEGATIVE (< 300 ng/mL); PCP Urine VISTA NEGATIVE (< 25 ng/mL); THC Urine VISTA NEGATIVE (< 50 ng/mL); Vista UDS pH Range 5
== END 2020-07-19 17:42 | disposition home or self-care (01) ==
PROVIDERS: Emergency Provider Emergency Medicine; PCP Internal Medicine
DX: F31.9 Bipolar disorder, unspecified (principal); F20.2 Catatonic schizophrenia; E66.9 Obesity, unspecified; I11.0 Hypertensive heart disease with heart failure; I50.9 Heart failure, unspecified; G47.33 Obstructive sleep apnea (adult) (pediatric); Z86.16 Personal history of COVID-19; Z86.718 Personal history of other venous thrombosis and embolism; Z79.01 Long term (current) use of anticoagulants; Z79.899 Other long term (current) drug therapy
CPT/HCPCS: 80053; 80307; 82077; 84703; 85025; 87426; 93005; 99283

== ENCOUNTER 2020-08-09 15:29 | Emergency (ER) | payer OTHER, MEDICARE, SELFPAY ==
[2020-08-09 15:30] VITALS: BP 127/81; PULSE 122; RESP 18; TEMP 36.2; O2SAT 96; BMI 41.2
--- NOTE | 2020-08-09 15:47 | EKG12_ITS ---
Test Reason : MENTAL HEALTH Blood Pressure : / mmHG Vent. Rate : 114 BPM Atrial Rate : 114 BPM P-R Int : 158 ms QRS Dur : 086 ms QT Int : 350 ms P-R-T Axes : 056 -02 069 degrees QTc Int : 482 ms Sinus tachycardia Cannot rule out Anterior infarct , age undetermined Abnormal ECG Confirmed by ENID LEON, PAMELA ([id number]), non linear editor MAGGI NORMAN ([id number]) on 08/12/2020 11:40:34 A M Referred By: WARREN Confirmed By:EMI ROSSI MD
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
--- NOTE | 2020-08-09 16:30 | CM.ED ---
SOCIAL WORK Informant: Dr. Willson Reason for Consult: Mental Health Chief Compliant: Patient admits to hallucinations. Patient denies suicidal/homicidal ideation Met with patient in room. Patient states remembers this worker from previous visits. Patient states missed dose of medications. Patient admits to hallucinations, but states is feeling much better. Patient denies any suicidal or homicidal ideation. Encouraged patient to take medications as prescribed. Patient states, I don't need to go to a hospital. Call to [facility] for collateral information. Per Shivani, spoke with patient's daughter, Kourtney earlier today. Shivani states did have officers do a well check and they denied need for [place]. Officer did report had concerns with patient being lethargic and advised family to bring patient to hospital. Per Shivani, does not believe patient meets criteria for hospitalization. Call to patient's . Per , patient has been worried that people are out to get us. states patient has not been taking medications as prescribed. Encouraged and family to be present and manage medications. states family has been managing patient's medication. feels safe with taking patient home. Collaboration with Dr. Willson. Plan for discharge home with continued follow up at [facility]. Plan: Home [facility] [employer] MA[employer] CONS[employer]
[2020-08-09 16:43] LABS: Absolute Lymphocyte Count 2.02 X10^3/uL (0.83-4.51); Absolute Neutrophil Count 4.2 X10^3/uL (2.0-7.7); Basophil# 0.02 X10^3/uL; Basophil% 0.3 % (0-1); Eosinophil# 0.21 X10^3/uL; Eosinophils% 2.9 % (0-5); Hematocrit 48.1 % (37-47); Hemoglobin 15.6 g/dL (12.0-15.0); Lymphocyte # 2.02 X10^3/ul (4.0); Lymphocyte % 28.3 % (19-41); Mean Corp Hgb Conc 32.4 g/dL (32-36); Mean Corpuscular Hgb 30.4 pg (27.0-32.0); Mean Corpuscular Volume 93.8 fL (81-99); Mean Platelet Vol. 9.8 fl (6.2-12.0); Monocyte# 0.65 X10^3/uL; Monocyte% 9.1 % (0-10); NRBC Flagged by Analyzer 0 % (0-5); Neutrophil # 4.21 X10^3/uL (2.7-7.7); Neutrophil % 59.1 % (47-70); Platelet Count 283 K/mm3 (150-450); RBC Distribution Width CV 12.2 % (11.6-14.6); RBC Distribution Width SD 42.5 fl (35.1-43.9); Red Blood Count 5.13 M/mm3 (4.2-5.4); White Blood Count 7.1 K/mm3 (4.4-11.0)
[2020-08-09 16:49] LABS: Amphetamine Urine VISTA NEGATIVE (<1000 ng/mL); Barbiturate Urine VISTA NEGATIVE (< 200 ng/mL); Benzodiazepine Urine VISTA NEGATIVE (< 200 ng/mL); Cocaine Urine VISTA NEGATIVE (< 300 ng/mL); Ecstacy Urine VISTA NEGATIVE (< 500 ng/mL); Methadone Urine VISTA NEGATIVE (< 300 ng/mL); PCP Urine VISTA NEGATIVE (< 25 ng/mL); THC Urine VISTA NEGATIVE (< 50 ng/mL); Vista UDS pH Range 5
[2020-08-09 17:07] LABS: Anion Gap 2 (5-15); BUN 19 mg/dL (7-18); BUN/Creat Ratio 14.6 RATIO (10-20); Chloride 109 mmol/L (98-107); EST Glomerular Filtration Rate 46 mL/min (>60); Est Glom Filt Rate - Afr Amer 55 mL/min (>60); Estimated Creatinine Clearance 45.55 ml/min; Glucose 135 mg/dL (74-106); Potassium 3.5 mmol/L (3.5-5.1); Sodium Level 142 mmol/L (136-145); Thyroid Stim Hormone (TSH) 1.72 uIU/mL (0.358-3.74)
[2020-08-09 17:12] LABS: Alcohol, Blood (Medical)-Serum < 3.0 mg/dL
[2020-08-09 18:03] VITALS: BP 108/77; PULSE 86; RESP 16; O2SAT 95
== END 2020-08-09 18:04 | disposition home or self-care (01) ==
LOC: ED 16:09
PROVIDERS: Emergency Provider Emergency Medicine; PCP Internal Medicine
DX: F20.9 Schizophrenia, unspecified (principal); F41.9 Anxiety disorder, unspecified; F32.9 Major depressive disorder, single episode, unspecified; I10 Essential (primary) hypertension; E11.9 Type 2 diabetes mellitus without complications; Z79.84 Long term (current) use of oral hypoglycemic drugs; Z79.899 Other long term (current) drug therapy
CPT/HCPCS: 36415; 80048; 80307; 82077; 84443; 85025; 87426; 93005; 99282

== ENCOUNTER 2020-11-26 22:05 | Observation (INO) | payer OTHER, MEDICARE, SELFPAY ==
[2020-11-26 22:06] VITALS: BP 146/88; PULSE 125; RESP 16; TEMP 35.8; O2SAT 95; BMI 43.2
--- NOTE | 2020-11-26 22:34 | ED.RN ---
RN CALLED FOR EKG, PULLED OLD EKGS FOR
--- NOTE | 2020-11-26 22:54 | EKG12_ITS ---
Test Reason : CP Blood Pressure : / mmHG Vent. Rate : 114 BPM Atrial Rate : 114 BPM P-R Int : 142 ms QRS Dur : 082 ms QT Int : 336 ms P-R-T Axes : 051 -10 038 degrees QTc Int : 463 ms Sinus tachycardia Poor R wave progression Confirmed by EDDY LEON, BLACK ([id number]), development editor MAGGI NORMAN ([id number]) on 11/28/2020 12:33:54 PM Referred By: LUIS Confirmed By:BLACK KAM MD
--- NOTE | 2020-11-26 22:54 | RAD_ITS ---
STUDY: X-RAY CHEST REASON FOR EXAM: Female, 50 years old. Chest pain TECHNIQUE: Single AP portable view of the chest. COMPARISON: June 11, 2020 FINDINGS: There are monitoring devices. The lungs are clear and expanded. There is no demonstrated pleural abnormality. Normal size heart. Normal mediastinum and payton. Normal visualized pulmonary arteries. Normal visualized aortic arch and descending thoracic aorta. Normal visualized thoracic spine. Normal visualized ribs, clavicles, and shoulders. There is no demonstrated abnormality of the visualized soft tissue structures of the upper abdomen. RAD/Chest 1 View (Portable) IMPRESSION: Normal x-ray examination of the chest. Electronically Signed: Rachid Narvaez MD at 23:45 EDT , Service support ,
[2020-11-26 22:55] VITALS: O2SAT 99
--- NOTE | 2020-11-26 22:55 | EDS_ITS ---
HPI History of Present Illness Chief Complaint: Chest Pain Narrative Narrative: Patient presents with chest discomfort. She has central chest heaviness with no associated symptoms for the last 6 hours at rest. She feels some discomfort in her neck. She has had this in the remote past. She is never had a myocardial infarction. She is on Eliquis for history of DVT per patient. She has not missed any doses. She stated she has had a PE in the remote past as well. Current severity is mild. No home treatment. It is continuous. She had a last stress test several years ago. She said it was negative. She has not had a heart cath. [facility] Medical History Bipolar 1 disorder Cardiomyopathy Chest pain CHF (congestive heart failure) Diabetes Dizzy DVT (deep venous thrombosis) Eczema HTN (hypertension) IBS (irritable bowel syndrome) Nausea & vomiting BALDEMAR (obstructive sleep apnea) Palpitation PUD (peptic ulcer disease) Pulmonary embolism Schizophrenia Schizophrenia Stroke/cerebrovascular accident Home Medications haloperidol 10 mg PO QHS 07/12/19 [History Last Taken 07/18/20] apixaban 5 mg PO BID 07/19/20 [History Last Taken 07/19/20] benztropine 1 mg PO BID 07/19/20 [History Last Taken 07/19/20] fluoxetine 20 mg PO DAILY 07/19/20 [History Last Taken 07/19/20] metformin 500 mg PO DAILY 07/19/20 [History Last Taken 07/19/20] olanzapine 15 mg PO QHS 07/19/20 [History Last Taken 07/18/20] Allergy/AdvReac Type Severity Reaction Status Date / Time No Known Allergies Allergy Verified 11/26/20 22:07 Family History Mother Breast cancer Surgical History History of esophagogastroduodenoscopy (EGD) S/P cholecystectomy S/P dilation and curettage S/P hysterectomy S/P nasal septoplasty Social History Smoking Status: Never smoker ROS ROS ED ROS Narrative ROS General: Denies fever, chills, sweats Eyes: Denies visual changes, blurred vision, double vision ENT: Denies ear pain, rhinorrhea, sore throat Cardiovascular: See HPI Respiratory: Denies dyspnea, cough, sputum, dyspnea on exertion, orthopnea,PND GI: Denies abdominal pain, nausea, vomiting, diarrhea, constipation, melena : Denies dysuria, hematuria, frequency Musculoskeletal: Denies myalgias, arthralgias, back pain Skin: Denies rash, abscess, abrasions Neuro: Denies headache, weakness, paresthesia Psych: Denies depression, anxiety Endo: Denies polyuria, polydipsia, polyphagia Heme: Denies easy bruising, easy bleeding, lymphadenopathy Allergy: Denies hives, swelling EXAM Physical Exam Narrative Exam Narrative: Vital signs reviewed General: Well-nourished well-developed Head: Normocephalic atraumatic Eyes: Pupils equal round and reactive to light extraocular movements intact ENT: TMs clear no hemotympanum no trauma Neck: Nontender full range of motion Cardiovascular: Regular rate rhythm no murmurs normal S1-S2 Respiratory: No distress clear to auscultation bilaterally chest nontender Abdomen: Soft nontender nondistended normal bowel sounds no masses Back: Nontender no CVA tenderness Extremities: Nontender active range of motion ?4 extremities no trauma Skin: Normal color no trauma Neuro alert oriented cranial nerves II through XII intact normal strength sensation reflexes Const Vital Signs: 11/26/20 22:06 11/26/20 22:15 11/26/20 22:55 Temperature 96.5 F L Temperature Source Temporal Pulse Rate 125 H Respiratory Rate 16 Respiratory Effort Normal Non-Labored Respiratory Pattern Normal Blood Pressure 146/88 H Blood Pressure Mean 107 Pulse Ox 95 99 Oxygen Delivery Method Room Air Room Air 11/26/20 23:10 11/26/20 23:11 11/26/20 23:15 Temperature Temperature Source Pulse Rate 111 H 113 H 123 H Respiratory Rate 19 H Respiratory Effort Respiratory Pattern Blood Pressure 128/76 H 128/76 H 125/79 H Blood Pressure Mean 93 Pulse Ox 95 Oxygen Delivery Method Room Air 11/26/20 23:20 11/27/20 00:13 Temperature Temperature Source Pulse Rate 115 H 102 H Respiratory Rate 26 H Respiratory Effort Respiratory Pattern Blood Pressure 106/73 95/69 Blood Pressure Mean 77 Pulse Ox 94 Oxygen Delivery Method Room Air Heart Score History: Moderately Suspicious ECG: Normal Age: >45 - <65 years Risk Factors: >/= 3 Risk Factors or History of CAD Troponin: </= Normal Limit Score: 4 MDM MDM MDM Narrative Medical decision making narrative: Patient given a nitroglycerin series for her symptoms. I held off on aspirin as she has a history of peptic ulcer disease. EKG shows sinus rhythm at a rate of 114 with no acute ischemia or arrhythmia. Repeat heart rate on the monitor when I first evaluated the patient is 100. Chest x-ray obtained. My interpretation of her chest x-ray shows chronic changes with nothing acute. Lab work unremarkable including CBC BMP and troponin. On reevaluation she still has mild chest tightness. I have a low suspicion for PE. She is on Eliquis. Do not feel she needs a CT angio of her chest. Discussed the hospitalist. Heart score is a 4. I feel she should be admitted for stress test. Lab Data Labs: Laboratory Results - last 24 hr 11/26/20 11/26/20 11/26/20 22:20 22:20 22:20 WBC 7.9 RBC 4.95 Hgb 14.9 Hct 45.4 MCV 91.7 MCH 30.1 MCHC 32.8 RDW Std Deviation 40.2 RDW Coeff of Pato 11.9 Plt Count 258 MPV 10.1 Immature Gran % (Auto) 0.300 Neut % (Auto) 67.0 Lymph % (Auto) 22.6 [place] % (Auto) 8.1 Eos % (Auto) 1.7 Baso % (Auto) 0.3 Absolute Neuts (auto) 5.3 Absolute Lymphs (auto) 1.78 Nucleated RBC % 0 D-Dimer Quant (PE/DVT) 0.29 Sodium 139 Potassium 3.6 Chloride 106 Carbon Dioxide 26.0 Anion Gap 7 BUN 20 H Creatinine 1.15 H Estim Creat Clear Calc 51.49 Est GFR (MDRD) Af Amer 64 Est GFR (MDRD) Non-Af 53 L BUN/Creatinine Ratio 17.4 Glucose 180 H Calcium 8.7 Troponin I < 0.015 Radiography Diagnostic Testing: Radiology Impression Chest X-Ray 11/26/20 22:54 IMPRESSION: Normal x-ray examination of the chest. Electronically Signed: Rachid Narvaez MD at 23:45 EDT , Service support , Discharge Plan Triage Chief Complaint: Chest Pain ED Provider: Richard Abreu Dx/Rx/DC Orders Clinical Impression: Chest pain at rest Prescriptions: No Action haloperidol 5 MG tablet 10 mg PO QHS RF: 0 apixaban 5 MG tablet 5 mg PO BID RF: 0 benztropine 1 MG tablet 1 mg PO BID RF: 0 olanzapine 15 MG tablet,disintegrating 15 mg PO QHS RF: 0 fluoxetine 20 MG capsule 20 mg PO DAILY RF: 0 metformin 500 MG tablet extended release 24 hr 500 mg PO DAILY RF: 0 Primary Care Provider: Paty Catalan Referrals: Paty Catalan DO [Primary Care Provider] - Disposition Disposition: Acute Care [facility]
[2020-11-26 23:06] LABS: Absolute Lymphocyte Count 1.78 X10^3/uL (0.83-4.51); Absolute Neutrophil Count 5.3 X10^3/uL (2.0-7.7); Basophil# 0.02 X10^3/uL; Basophil% 0.3 % (0-1); Eosinophil# 0.13 X10^3/uL; Eosinophils% 1.7 % (0-5); Hematocrit 45.4 % (37-47); Hemoglobin 14.9 g/dL (12.0-15.0); Lymphocyte # 1.78 X10^3/ul (0.83-4.51); Lymphocyte % 22.6 % (19-41); Mean Corp Hgb Conc 32.8 g/dL (32-36); Mean Corpuscular Hgb 30.1 pg (27.0-32.0); Mean Corpuscular Volume 91.7 fL (81-99); Mean Platelet Vol. 10.1 fl (6.2-12.0); Monocyte# 0.64 X10^3/uL; Monocyte% 8.1 % (0-10); NRBC Flagged by Analyzer 0 % (0-5); Neutrophil # 5.27 X10^3/uL (2.7-7.7); Platelet Count 258 K/mm3 (150-450); RBC Distribution Width CV 11.9 % (11.6-14.6); RBC Distribution Width SD 40.2 fl (35.1-43.9); Red Blood Count 4.95 M/mm3 (4.2-5.4); White Blood Count 7.9 K/mm3 (4.4-11.0)
[2020-11-26 23:10] VITALS: BP 128/76; PULSE 111
[2020-11-26] MEDS: Nitroglycerin SL (ED/IMG/CATH) 0.4 MG TABLET SL ×3 (23:10→23:20)
[2020-11-26 23:11] VITALS: BP 128/76; PULSE 113; RESP 19; O2SAT 95
[2020-11-26 23:11] LABS: D-Dimer Quantitative (DVT/PE) 0.29 FEU/ug/m (0.27-0.49)
[2020-11-26 23:15] VITALS: BP 125/79; PULSE 123
[2020-11-26 23:20] VITALS: BP 106/73; PULSE 115
[2020-11-26 23:43] LABS: Anion Gap 7 (5-15); BUN 20 mg/dL (7-18); BUN/Creat Ratio 17.4 RATIO (10-20); Calcium,Total 8.7 mg/dL (8.5-10.1); Chloride 106 mmol/L (98-107); Creatinine, Serum 1.15 mg/dL (0.55-1.02); EST Glomerular Filtration Rate 53 mL/min (>60); Est Glom Filt Rate - Afr Amer 64 mL/min (>60); Estimated Creatinine Clearance 51.49 ml/min; Glucose 180 mg/dL (74-106); Potassium 3.6 mmol/L (3.5-5.1); Sodium Level 139 mmol/L (136-145)
[2020-11-27] VITALS (9 sets, daily range): BP systolic 93–116; BP diastolic 61–74; PULSE 83–102; RESP 17–26; TEMP 35.7–36.8; O2SAT 93–95; BMI 44.6
--- NOTE | 2020-11-27 01:14 | HP.PCM.HOS_ITS ---
HPI - General General Date of Admission: 11/27/20 Date of Service: 11/27/20 Chief Complaint: Chest pain HPI Narrative COOPER NIELSEN, is a 50 F who presents to the emergency room at [facility] with a chief complaint of chest pain which she described as pressure- like in quality located in her med precordial area, it does not radiate into her neck, jaw, or down her arm. She states she is mildly short of breath with this discomfort, chest pain started this evening while at rest and she currently has the chest pain in the emergency room. EKG obtained in the emergency room shows a sinus tachycardia without evidence of acute ischemic changes, patient's D- dimer was 0.29, chemistry panel was remarkable for a BUN of 20, creatinine of 1.15, patient's CBC was unremarkable. Glucose was 180, troponin was normal. Chest x-ray was unremarkable. Patient will be placed in observation status on PCU, cardiac enzymes will be cycled, if these remain normal she will undergo a resting pharmacological nuclear stress test. I feel this patient's chest pain is very atypical, she has a psychiatric overlay which makes it difficult to determine if this is cardiac in nature. [facility] Medical History Bipolar 1 disorder Cardiomyopathy Chest pain CHF (congestive heart failure) Diabetes Dizzy DVT (deep venous thrombosis) Eczema HTN (hypertension) IBS (irritable bowel syndrome) Nausea & vomiting BALDEMAR (obstructive sleep apnea) Palpitation PUD (peptic ulcer disease) Pulmonary embolism Schizophrenia Schizophrenia Stroke/cerebrovascular accident Home Medications haloperidol 10 mg PO QHS 07/12/19 [History Last Taken 07/18/20] apixaban 5 mg PO BID 07/19/20 [History Last Taken 07/19/20] benztropine 1 mg PO BID 07/19/20 [History Last Taken 07/19/20] fluoxetine 20 mg PO DAILY 07/19/20 [History Last Taken 07/19/20] metformin 500 mg PO DAILY 07/19/20 [History Last Taken 07/19/20] olanzapine 15 mg PO QHS 07/19/20 [History Last Taken 07/18/20] Allergy/AdvReac Type Severity Reaction Status Date / Time No Known Allergies Allergy Verified 11/26/20 22:07 Family History Mother Breast cancer Surgical History History of esophagogastroduodenoscopy (EGD) S/P cholecystectomy S/P dilation and curettage S/P hysterectomy S/P nasal septoplasty Social History Smoking Status: Never smoker ROS Constitutional Constitutional: Denies anorexia, change in weight, chills, fever(s), night sweats or weakness Eyes Eyes: Denies blurry vision, change in vision, discharge from eye(s) or eye pain Cardiovascular Cardiovascular: Reports chest pain and other; Denies claudication, dyspnea on exertion, edema or palpitations Respiratory/Chest Respiratory/Chest: Reports dyspnea and shortness of breath at rest; Denies cough, excessive phlegm production, hemoptysis or shortness of breath with exertion Gastrointestinal Gastrointestinal: Denies abdominal pain, constipation, diarrhea, hematemesis, hematochezia, melena, nausea or vomiting Genitourinary Genitourinary: Denies dysuria, hematuria, urinary frequency, urinary hesitancy, urinary incontinence or urinary urgency Musculoskeletal Musculoskeletal: Denies back pain, joint pain, joint stiffness, joint swelling, myalgias or neck pain Neurologic Neurologic: Denies abnormal gait, abnormal speech, dizziness, focal weakness, headache(s), loss of vision, numbness, other visual disturbances, paresthesias, syncope or tingling Psychiatric Psychiatric: Reports anxiety, depression and other Details: History of bipolar 1 disorder, history of schizophrenia ; Denies cognitive impairment, irritability, mood swings or suicidal ideation Endocrine Endocrinology: Denies change in body appearance, cold intolerance, excessive sweating, heat intolerance, polydipsia or polyuria Hematologic/Lymphatic Hematologic/Lymphatic: Denies none, anemia, easy bleeding, easy bruising or lymphadenopathy Allergic/Immunologic Allergic/Immunologic: Denies rhinitis, urticaria, eczemia or asthma Vital Signs Vital Signs Vital Signs: 11/26/20 22:06 11/26/20 22:15 11/26/20 22:55 Temperature 96.5 F L Temperature Source Temporal Pulse Rate 125 H Respiratory Rate 16 Respiratory Effort Normal Non-Labored Respiratory Pattern Normal Blood Pressure 146/88 H Blood Pressure Mean 107 Pulse Ox 95 99 Oxygen Delivery Method Room Air Room Air 11/26/20 23:10 11/26/20 23:11 11/26/20 23:15 Temperature Temperature Source Pulse Rate 111 H 113 H 123 H Respiratory Rate 19 H Respiratory Effort Respiratory Pattern Blood Pressure 128/76 H 128/76 H 125/79 H Blood Pressure Mean 93 Pulse Ox 95 Oxygen Delivery Method Room Air 11/26/20 23:20 11/27/20 00:13 11/27/20 01:01 Temperature 98 F Temperature Source Temporal Pulse Rate 115 H 102 H 88 Respiratory Rate 26 H 17 Respiratory Effort Respiratory Pattern Blood Pressure 106/73 95/69 107/74 Blood Pressure Mean 77 85 Pulse Ox 94 93 Oxygen Delivery Method Room Air Room Air Weight Weight: 117.934 kg Body Mass Index (BMI) 43.2 Physical Exam Const alert, oriented x3 and no apparent distress General Appearance: cooperative, well kempt and well developed Orientation / Consciousness: awake, oriented to person, oriented to place and oriented to time HEENT normocephalic, head/scalp atraumatic and moist oral mucous membranes Eyes PERRL, EOMs intact bilaterally and conjunctivae normal Neck nuchal rigidity, supple, no JVD, thyroid normal and no carotid bruits General: trachea midline Resp normal respiratory effort, no retractions, no use of accessory muscles and clear to auscultation bilaterally Auscultation: Negative for rales, rhonchi or wheezes Cardio regular rate, regular rhythm, S1 normal heart sound, S2 normal heart sound, no murmurs, no rub, no gallops and no JVD GI normal to inspection, nondistended, normoactive bowel sounds, soft to palpation, non-tender and non-distended GI Narrative: Patient has morbid obesity Extremity normal to inspection and no clubbing, cyanosis or edema Skin no rashes or lesions noted General Skin Exam: no breakdown Neuro oriented x3, CN's II-XII intact bilaterally, no focal motor deficits and no sensory deficits noted Sensorium / Orientation: awake and alert Speech: speech normal Psych thought process normal Psych Narrative: Patient's affect is extremely flat Lab / Micro Data Result Diagrams: 11/26/20 22:20 11/26/20 22:20 Labs: Laboratory Results - last 24 hr 11/26/20 11/26/20 11/26/20 22:20 22:20 22:20 WBC 7.9 RBC 4.95 Hgb 14.9 Hct 45.4 MCV 91.7 MCH 30.1 MCHC 32.8 RDW Std Deviation 40.2 RDW Coeff of Pato 11.9 Plt Count 258 MPV 10.1 Immature Gran % (Auto) 0.300 Neut % (Auto) 67.0 Lymph % (Auto) 22.6 [place] % (Auto) 8.1 Eos % (Auto) 1.7 Baso % (Auto) 0.3 Absolute Neuts (auto) 5.3 Absolute Lymphs (auto) 1.78 Nucleated RBC % 0 D-Dimer Quant (PE/DVT) 0.29 Sodium 139 Potassium 3.6 Chloride 106 Carbon Dioxide 26.0 Anion Gap 7 BUN 20 H Creatinine 1.15 H Estim Creat Clear Calc 51.49 Est GFR (MDRD) Af Amer 64 Est GFR (MDRD) Non-Af 53 L BUN/Creatinine Ratio 17.4 Glucose 180 H Calcium 8.7 Troponin I < 0.015 Radiology Impression Chest X-Ray 11/26/20 22:54 IMPRESSION: Normal x-ray examination of the chest. Electronically Signed: Rachid Narvaez MD at 23:45 EDT , Service support , Assessment & Plan Assessment/Plan (1) Chest pain at rest: PLAN: 1. Chest pain-atypical in nature-patient will be placed in observation status on PCU, cardiac enzymes will be cycled, if these remain negative patient will undergo a resting nuclear pharmacological stress test #2 bipolar 1 disorder #3 schizophrenia #4 morbid obesity #5 past history of pulmonary emboli-currently on Eliquis #6 chronic kidney disease 3a secondary to type 2 diabetes #7 type 2 diabetes #8 essential hypertension
--- NOTE | 2020-11-27 01:47 | EKG12_ITS ---
Test Reason : CP ADMIT Blood Pressure : / mmHG Vent. Rate : 082 BPM Atrial Rate : 082 BPM P-R Int : 148 ms QRS Dur : 082 ms QT Int : 376 ms P-R-T Axes : 049 -16 033 degrees QTc Int : 439 ms Normal sinus rhythm Normal ECG When compared with ECG of 09-AUG-2020 16:19, No significant change was found Confirmed by CARLOS LEON, ERROL ([id number]), health editor MAGGI NORMAN ([id number]) on 11/28/2020 12:42:52 PM Referred By: ADELA Confirmed By:ERROL GONZALEZ MD
[2020-11-27] MEDS: Acetaminophen 325 MG Tablet 650 MG PO (06:42)
[2020-11-27] MEDS: FLUoxetine 20 MG Capsule PO (11:11)
[2020-11-27] MEDS: Benztropine Mesylate 0.5 MG TABLET 1 MG PO (11:11)
--- NOTE | 2020-11-27 12:49 | STRESSREP ---
Stress Test Report Pharmacologic myocardial perfusion stress test. 50-year-old lady with a history of chest pain. Stress protocol: Resting EKG demonstrates sinus rhythm with a rate of 80 bpm normal intervals are noted resting blood pressure is 102/80 mmHg. 0.4 mg of regadenoson was infused per usual protocol followed by rapid intravenous saline flush injection continuous EKG monitoring was performed. The patient maintained sinus rhythm throughout the recording. At rest there were no ST or T wave changes noted to suggest abnormal flow reserve and at peak infusion nonspecific ST changes were noted. The maximum heart rate attained was 130 bpm which was 77% of maximum predicted heart rate the maximum workload was 1 metabolic equivalent. At rest there were no ST or T wave changes noted to suggest abnormal flow reserve. Myocardial perfusion protocol. 15.0 mCi of technetium 99m sestamibi was injected at rest. 0.4 mg of regadenoson was infused per usual protocol. At peak infusion 44.8 mCi of technetium 99m sestamibi was injected stress images were obtained stress and rest images were reconstructed and compared in the short axis vertical long and horizontal long axis. Gated images were also obtained. Perfusion SPECT analysis: Review of the stress images demonstrate normal uptake of tracer noted in all areas of the myocardium. The resting images similarly demonstrate normal uptake of tracer noted in all areas of the myocardium. No areas of reversibility are noted to suggest ischemia and no previous infarct is noted. Gated SPECT analysis: The gated ejection fraction is 66%. Conclusion: Normal pharmacologic myocardial perfusion stress test. Preserved ejection fraction.
--- NOTE | 2020-11-27 13:33 | PCM.DC ---
Discharge Instructions Diet Discharge Diet: 2000 mg Sodium Diet Activity Discharge Activity: Return to Normal Activity and May Not Drive Dressing / Incision Call your doctor if you observe: Fever of 101 or Higher, Coldness, Increased Pain, Numbness or Tingling, Change in Color, Inability to urinate, Inability to have a bowel movement, Using more than one pad per hour, Shortness of breath, Dizziness, Fainting spells, Swelling in the ankles, Chest pain, Prolonged hiccupping, Increased palpitations (irregular heartbeat), Calf discomfort and Uncontrolled pain Follow Up Care Test Results: Test results from this visit will be discussed in further detail at your follow-up appointment, if applicable. Discharge Plan Admission Admit Date/Time: 11/27/20 01:08 Primary Reason for Your Visit: Acute coronary syndrome ruled out. Attending Provider: Brennan Corona Primary Care Provider: Paty Catalan Instructions Patient Instructions: ED Chest Pain, Noncardiac Discharge Orders/Prescriptions Prescriptions: Continued haloperidol 5 MG tablet 10 mg PO QHS RF: 0 apixaban 5 MG tablet 5 mg PO BID RF: 0 benztropine 1 MG tablet 1 mg PO BID RF: 0 olanzapine 15 MG tablet,disintegrating 15 mg PO QHS RF: 0 fluoxetine 20 MG capsule 20 mg PO DAILY RF: 0 metformin 500 MG tablet extended release 24 hr 500 mg PO DAILY RF: 0 Referrals / Follow Up: Paty Catalan DO [Primary Care Provider] - In 1 Week Disposition Disposition (needs filled in before D/C Order can be placed): Home, self care
--- NOTE | 2020-11-27 13:39 | DS.PCM_ITS ---
Providers Date of Admission: 11/27/20 Primary Care Physician: Dr. Paty Catalan DO Reason For Visit: CHEST PAIN Diagnosis Discharge Diagnosis (1) Chest pain at rest: Status: Acute Code(s): R07.9 - Chest pain, unspecified Medications at Discharge Home Medications haloperidol 10 mg PO QHS 07/12/19 apixaban 5 mg PO BID 07/19/20 benztropine 1 mg PO BID 07/19/20 fluoxetine 20 mg PO DAILY 07/19/20 metformin 500 mg PO DAILY 07/19/20 olanzapine 15 mg PO QHS 07/19/20 Hospital Course Summary of Care Provided Hospital Course: This is a 50-year-old female admitted with chest pain, pressure-like in the precordial region with no radiation. Patient had mild associated shortness of breath. Patient was admitted in PCU. EKG shows sinus tachycardia with no significant evidence of acute ischemic changes. Chest x-ray unremarkable. Serial troponin enzymes negative. Patient underwent myocardial nuclear stress test was reported no stress-induced ischemia. Patient has other multiple mental health issues including bipolar 1, schizophrenia and has flat affect. She has history of pulmonary emboli on Eliquis. Other comorbidities include type 2 diabetes mellitus with CKD stage IIIa, diabetic nephropathy and hypertension. Repeat labs shows improvement in creatinine 1.15. Discharge medication reconciliation done. Discharge follow-up instructions completed. Discharge process discussed with the patient and all questions were answered to patient's satisfaction. Total time spent, exact 35 minutes on discharge meds reconciliation, examination, coordination of care with nurses and ancillary staff, review of imaging and blood test and discussion with the patient on follow-up instructions Physical Exam Narrative Patient does not have chest pain. Patient complain of mild headache after sublingual nitro given yesterday. She tolerated a stress test well. No shortness of breath. General: Alert, Oriented x3, Cooperative, morbid obesity BMI of 44.6 kg/m? HEENT: Atraumatic, PERRLA, EOMI, Normocephalic Oral: No Gingival or Mucosal Lesions/ Ulcerations Neck: Supple, No JVD, Negative Carotid Bruits Lungs: Air entry diminished in bilateral lung bases. No crepitation/rhonchi Cardiovascular: Regular rate, Regular Rhythm, Normal S1, Normal S2, No murmurs Abdomen: Bowel Sounds Present, Soft, Non Tender, Non-Distended : No renal angle tenderness. No suprapubic tenderness. Extremities: No edema, Capillary Refill Less than 3 Seconds Skin: No rashes, No breakdown Musculoskeletal: No Tenderness to Palpation of Joints or Extremities Neurological: Cranial nerves II-XII grossly intact, Deep Tendon Reflexes 2+/4 and Symmetrical, Neuro grossly intact Psych/Mental Status: Flat affect. ABG / Lab / Microbiology Data Result Diagrams: 11/26/20 22:20 11/26/20 22:20 Laboratory: Laboratory Results - last 24 hr 11/26/20 11/26/20 11/26/20 22:20 22:20 22:20 WBC 7.9 RBC 4.95 Hgb 14.9 Hct 45.4 MCV 91.7 MCH 30.1 MCHC 32.8 RDW Std Deviation 40.2 RDW Coeff of Pato 11.9 Plt Count 258 MPV 10.1 Immature Gran % (Auto) 0.300 Neut % (Auto) 67.0 Lymph % (Auto) 22.6 [place] % (Auto) 8.1 Eos % (Auto) 1.7 Baso % (Auto) 0.3 Absolute Neuts (auto) 5.3 Absolute Lymphs (auto) 1.78 Nucleated RBC % 0 D-Dimer Quant (PE/DVT) 0.29 Sodium 139 Potassium 3.6 Chloride 106 Carbon Dioxide 26.0 Anion Gap 7 BUN 20 H Creatinine 1.15 H Estim Creat Clear Calc 51.49 Est GFR (MDRD) Af Amer 64 Est GFR (MDRD) Non-Af 53 L BUN/Creatinine Ratio 17.4 Glucose 180 H Calcium 8.7 Troponin I < 0.015 11/27/20 11/27/20 02:07 04:46 WBC RBC Hgb Hct MCV MCH MCHC RDW Std Deviation RDW Coeff of Pato Plt Count MPV Immature Gran % (Auto) Neut % (Auto) Lymph % (Auto) [place] % (Auto) Eos % (Auto) Baso % (Auto) Absolute Neuts (auto) Absolute Lymphs (auto) Nucleated RBC % D-Dimer Quant (PE/DVT) Sodium Potassium Chloride Carbon Dioxide Anion Gap BUN Creatinine Estim Creat Clear Calc Est GFR (MDRD) Af Amer Est GFR (MDRD) Non-Af BUN/Creatinine Ratio Glucose Calcium Troponin I < 0.015 < 0.015 Radiography Diagnostic Testing: Radiology Impression Chest X-Ray 11/26/20 22:54 IMPRESSION: Normal x-ray examination of the chest. Electronically Signed: Rachid Narvaez MD at 23:45 EDT , Service support , D/C Instructions Discharge Diet: 2000 mg Sodium Diet Discharge Activity: Return to Normal Activity and May Not Drive Call your doctor if you observe: Fever of 101 or Higher, Coldness, Increased Pain, Numbness or Tingling, Change in Color, Inability to urinate, Inability to have a bowel movement, Using more than one pad per hour, Shortness of breath, Dizziness, Fainting spells, Swelling in the ankles, Chest pain, Prolonged hiccupping, Increased palpitations (irregular heartbeat), Calf discomfort and Uncontrolled pain Meaningful Use Info Meaningful Use Diagnoses (Choose all that apply): None applicable Discharge Plan Admission Admit Date/Time: 11/27/20 01:08 Primary Reason for Your Visit: Acute coronary syndrome ruled out. Attending Provider: Brennan Corona Primary Care Provider: Paty Catalan Instructions Patient Instructions: ED Chest Pain, Noncardiac Discharge Orders/Prescriptions Prescriptions: Continued haloperidol 5 MG tablet 10 mg PO QHS RF: 0 apixaban 5 MG tablet 5 mg PO BID RF: 0 benztropine 1 MG tablet 1 mg PO BID RF: 0 olanzapine 15 MG tablet,disintegrating 15 mg PO QHS RF: 0 fluoxetine 20 MG capsule 20 mg PO DAILY RF: 0 metformin 500 MG tablet extended release 24 hr 500 mg PO DAILY RF: 0 Referrals / Follow Up: Paty Catalan DO [Primary Care Provider] - In 1 Week Disposition Disposition (needs filled in before D/C Order can be placed): Home, self care Visit Charges OBSV E&M: 76017 Observation care discharge
--- NOTE | 2020-11-27 13:50 | PHA.DC.MR ---
Pharmacy Service has performed discharge medication reconciliation for this patient. The patient's discharge medication list was reviewed for discrepancies and discrepancies were resolved. Home Medications haloperidol 10 mg PO QHS 07/12/19 apixaban 5 mg PO BID 07/19/20 benztropine 1 mg PO BID 07/19/20 fluoxetine 20 mg PO DAILY 07/19/20 metformin 500 mg PO DAILY 07/19/20 olanzapine 15 mg PO QHS 07/19/20
[2020-11-27 14:14] LABS: Cholesterol 124 mg/dL (200); High Density Lipoprotein 35 mg/dL; Triglycerides 102 mg/dL; Very Low Density Lipoprotein 20 mg/dL (5-40)
== END 2020-11-27 13:38 | disposition home or self-care (01) ==
LOC: ED 11-27 00:56 → PCU 11-27 04:05
PROVIDERS: Admitting Provider Internal Medicine; Emergency Provider Emergency Medicine; PCP Internal Medicine; Visit Provider Internal Medicine
DX: R07.89 Other chest pain (principal); R06.02 Shortness of breath; R00.0 Tachycardia, unspecified; E11.22 Type 2 diabetes mellitus with diabetic chronic kidney disease; N18.31 Chronic kidney disease, stage 3a; F31.9 Bipolar disorder, unspecified; I13.0 Hypertensive heart and chronic kidney disease with heart failure and stage 1 through stage 4 chronic kidney disease, or unspecified chronic kidney disease; I50.9 Heart failure, unspecified; G47.33 Obstructive sleep apnea (adult) (pediatric); I42.9 Cardiomyopathy, unspecified; I25.10 Atherosclerotic heart disease of native coronary artery without angina pectoris; E66.01 Morbid (severe) obesity due to excess calories; F20.9 Schizophrenia, unspecified; Z79.84 Long term (current) use of oral hypoglycemic drugs; Z86.711 Personal history of pulmonary embolism; Z79.01 Long term (current) use of anticoagulants; Z79.899 Other long term (current) drug therapy; Z86.718 Personal history of other venous thrombosis and embolism; Z87.11 Personal history of peptic ulcer disease; Z68.41 Body mass index [BMI] 40.0-44.9, adult
CPT/HCPCS: 36415; 71045; 78452; 80048; 80061; 84484; 85025; 85379; 93005; 93017; 99218; 99285; A9500; A4216; G0378; J2785

== ENCOUNTER 2022-03-13 19:10 | Emergency (ER) | payer OTHER, MEDICARE, SELFPAY ==
[2022-03-13 19:12] VITALS: BP 142/88; PULSE 120; RESP 20; TEMP 37.1; O2SAT 96; BMI 48.0
--- NOTE | 2022-03-13 19:25 | EDS_ITS ---
HPI History of Present Illness Chief Complaint: General Illness Narrative Narrative: Patient presents with her because of increasing shortness of breath. She states that she has been sick with upper respiratory infection type symptoms for the last 2 days. Today she had a virtual visit with her primary care physician. She was placed on amoxicillin, and COVID and rapid flu tests were performed. Her COVID test will not return until Wednesday, but she states that her flu test was negative. She states that she is had an occasional cough productive of sputum, and increasing shortness of breath. She presents mainly because her breathing is becoming worse. [facility] Medical History Bipolar 1 disorder Cardiomyopathy Chest pain CHF (congestive heart failure) Diabetes Dizzy DVT (deep venous thrombosis) Eczema HTN (hypertension) IBS (irritable bowel syndrome) Nausea & vomiting BALDEMAR (obstructive sleep apnea) Palpitation PUD (peptic ulcer disease) Pulmonary embolism Schizophrenia Schizophrenia Stroke/cerebrovascular accident Home Medications haloperidol 5 mg tablet 10 mg PO QHS mood 07/12/19 [History Last Taken 07/18/20] apixaban 5 mg tablet 5 mg PO BID blood thinner 07/19/20 [History Last Taken 07/19/20] benztropine 1 mg tablet 1 mg PO BID mood 07/19/20 [History Last Taken 07/19/20] fluoxetine 20 mg capsule 20 mg PO DAILY depression 07/19/20 [History Last Taken 07/19/20] metformin 500 mg tablet,extended release 24 hr 500 mg PO DAILY dm 07/19/20 [History Last Taken 07/19/20] olanzapine 15 mg disintegrating tablet 15 mg PO QHS mood 07/19/20 [History Last Taken 07/18/20] albuterol sulfate 90 mcg/actuation aerosol inhaler (Ventolin HFA) 1 - 2 puff inhalation Q4H PRN PRN Wheezing #1 ea 03/13/22 [Rx Last Taken Unknown] Allergy/AdvReac Type Severity Reaction Status Date / Time No Known Allergies Allergy Verified 10/23/21 16:54 Family History Mother Breast cancer Surgical History History of esophagogastroduodenoscopy (EGD) S/P cholecystectomy S/P dilation and curettage S/P hysterectomy S/P nasal septoplasty Social History household members: spouse housing: house Smoking Status: Never smoker ROS ROS ED ROS Narrative Constitutional: Subjective fever, no chills. Generalized weakness. HEENT: No sore throat. No neck pain. No loss of vision. No rhinorrhea. Cardiovascular: No chest pain. No palpitations. No pedal edema. Respiratory: Occasional cough, increasing shortness of breath. Abdominal: No abdominal pain. No nausea. No vomiting. Genitourinary: No dysuria. No hematuria. Musculoskeletal: No myalgias. No arthralgias. Neurologic: No headaches. No dizziness. No lightheadedness. Skin: No rash. No change in color. Psychiatric: No depression. No anxiety. EXAM Physical Exam Narrative Exam Narrative: Afebrile. Vital signs noted. HEENT: Normocephalic. Atraumatic. PERRL, EOMI. Neck soft and supple. No point tenderness or step off. Cardiovascular: Positive tachycardia. No murmurs, rubs, or gallops appreciated. Respiratory: No tachypnea. Occasional rhonchi. No distress. Gastrointestinal: Abdomen soft, nontender, with normoactive bowel sounds. No rebound or guarding. Neurological: Awake. Alert. Nonfocal, nonlateralizing. Skin: No rash. Normal color. No pallor. Musculoskeletal: No pedal edema. Full range of motion extremities. Const Vital Signs: 03/13/22 19:12 03/13/22 19:29 03/13/22 19:29 Temperature 98.7 F Temperature Source Temporal Pulse Rate 120 H 123 H Respiratory Rate 20 H 22 H 22 H Respiratory Effort Non-Labored Short of Breath Respiratory Depth Shallow Respiratory Pattern Tachypnea Tachypnea Blood Pressure 142/88 H Blood Pressure Mean 106 Pulse Ox 96 96 Oxygen Delivery Method Room Air Room Air MDM MDM MDM Narrative Medical decision making narrative: I will obtain a rapid COVID here. She will be administered an albuterol aero solized treatment. Her pulse ox is 96% on room air without evidence of hypoxia. Chest x-ray in 2 views will be obtained. Chest x-ray interpreted by myself shows no acute pulmonary disease, no evidence of pneumothorax or infiltrate. Upon repeat examination after albuterol aerosolized treatment she feels improved. Her of note, her rapid COVID test is positive. I feel she be discharged safely home with continued symptomatic treatment. Return instructions to the emergency department were reviewed. Disposition is discharged home in stable condition. Lab Data Attestation: I reviewed the patient's lab results. Radiography Diagnostic Testing: Clinical Impression(s) from Imaging Studies Chest X-Ray 03/13/22 19:52 IMPRESSION: No acute cardiopulmonary disease. Electronically Signed: Jim Casas MD at 20:09 EDT , Discharge Plan Triage Chief Complaint: General Illness ED Provider: Josef Gardner Dx/Rx/DC Orders Clinical Impression: COVID, Shortness of breath Instructions: Coronavirus Disease 2019 (COVID-19): Caring for Yourself or Others, COVID-19 and the Flu: What's the Difference?, ED Dyspnea Prescriptions: New albuterol sulfate [Ventolin HFA] 90 mcg/actuation HFA aerosol inhaler 1 - 2 puff inhalation Q4H PRN PRN (Reason: Wheezing) Qty: 1 0RF No Action haloperidol 5 MG tablet 10 mg PO QHS apixaban 5 MG tablet 5 mg PO BID benztropine 1 MG tablet 1 mg PO BID olanzapine 15 MG tablet,disintegrating 15 mg PO QHS fluoxetine 20 MG capsule 20 mg PO DAILY metformin 500 MG tablet extended release 24 hr 500 mg PO DAILY Primary Care Provider: Paty Catalan Referrals: Paty Catalan, DO [Primary Care Provider] - 10-14 Days if not better Disposition Disposition: Home, Self Care
[2022-03-13 19:29] VITALS: PULSE 123; RESP 22; O2SAT 96
[2022-03-13] MEDS: Albuterol 2.5 MG/3 ML VIAL.NEB. INHALATION (19:29)
--- NOTE | 2022-03-13 19:52 | RAD_ITS ---
STUDY: X-RAY CHEST REASON FOR EXAM: Female, 52 years old. Shortness of Breath TECHNIQUE: PA and lateral views of the chest. COMPARISON: Portable AP upright chest x-ray 11/26/2020 FINDINGS: The lungs are clear and moderately expanded. There is no demonstrated pleural abnormality. Normal size heart. Normal mediastinum and payton. Normal visualized pulmonary arteries. Normal visualized aortic arch and descending thoracic aorta. There is a stable mild levoscoliosis of the lower thoracic spine. Normal visualized ribs, clavicles, and shoulders. There is no demonstrated abnormality of the visualized soft tissue structures of the upper abdomen. RAD/Chest PA and Lateral IMPRESSION: No acute cardiopulmonary disease. Electronically Signed: Jim Casas MD at 20:09 EDT ,
[2022-03-13 20:26] VITALS: O2SAT 96
== END 2022-03-13 20:53 | disposition home or self-care (01) ==
PROVIDERS: Emergency Provider Emergency Medicine; PCP Internal Medicine; Visit Provider Emergency Medicine
DX: U07.1 COVID-19 (principal); F20.9 Schizophrenia, unspecified; I11.0 Hypertensive heart disease with heart failure; I50.9 Heart failure, unspecified; F31.9 Bipolar disorder, unspecified; E11.9 Type 2 diabetes mellitus without complications; Z86.718 Personal history of other venous thrombosis and embolism; G47.33 Obstructive sleep apnea (adult) (pediatric); Z87.11 Personal history of peptic ulcer disease; Z86.711 Personal history of pulmonary embolism; Z86.73 Personal history of transient ischemic attack (TIA), and cerebral infarction without residual deficits; K58.9 Irritable bowel syndrome, unspecified; Z79.01 Long term (current) use of anticoagulants; Z79.899 Other long term (current) drug therapy; Z79.84 Long term (current) use of oral hypoglycemic drugs
CPT/HCPCS: 71046; 87811; 94640; 99251; 99282; G0463

== ENCOUNTER 2022-04-08 16:53 | Emergency (ER) | payer OTHER, MEDICARE, SELFPAY ==
[2022-04-08 16:54] VITALS: BP 107/87; PULSE 121; RESP 20; TEMP 36.7; O2SAT 92; BMI 47.0
--- NOTE | 2022-04-08 18:27 | CT_ITS ---
STUDY: CTA CHEST REASON FOR EXAM: Female, 52 years old. Pulmonary embolism. Recent Covid, chest pain. Evaluate for PE. RADIATION DOSAGE (If Supplied By Facility): CTDIvol = ( 19.79 ) mGy, DLP = ( 532.73 ) mGycm TECHNIQUE: The examination was performed with the intravenous administration of IV 100mL Isovue-370. Post-processing of the angiographic images was performed, with multiplanar reformation and 3D reconstruction. Individualized dose optimization techniques were used for this CT. COMPARISON: 06/17/2017 FINDINGS: Tubes and lines: 1. No life-support noted. CTA: PULMONARY ARTERIES: There is normal configuration and contrast opacification of pulmonary outflow tract, main pulmonary arteries, segmental and intersegmental pulmonary arteries bilaterally without evidence of intraluminal filling defects. AORTIC ARCH: The aortic arch and descending aorta have normal configuration. No evidence of dissection or aneurysmal dilatation. HEART: Cardiac contour is normal. No evidence pericardial effusion. Scattered coronary vascular calcifications. CT CHEST: LUNGS: [Unremarkable. No mass. No consolidation. PLEURAL SPACES: Unremarkable, no effusion or pneumothorax.. MEDIASTINUM AND LYMPH NODES: Unremarkable. No significant adenopathy. BONES: Unremarkable ABDOMEN: Within normal limits. Other: None IMPRESSIONS: 1. No CTA evidence of pulmonary embolism. 2. No CTA evidence of aortic aneurysm or dissection 3. Normal CT appearance of the heart and pericardium. Scattered coronary vascular calcifications. 4. No focal infiltrate consolidation or effusion noted. Electronically Signed: Rishi Mckeon MD at 20:18 EDT , CT/CTA Chest W/WO Contrast IMPRESSION: undefined
--- NOTE | 2022-04-08 18:28 | EKG12_ITS ---
Test Reason : DYSRHYTHMIA Blood Pressure : / mmHG Vent. Rate : 114 BPM Atrial Rate : 114 BPM P-R Int : 142 ms QRS Dur : 074 ms QT Int : 330 ms P-R-T Axes : 038 -13 027 degrees QTc Int : 454 ms Sinus tachycardia Otherwise normal ECG Confirmed by ENID LEON, PAMELA ([id number]), editorial manager MAGGI NORMAN ([id number]) on 04/09/2022 2:05:05 P M Referred By: AMINAH Confirmed By:EMI ROSSI MD
--- NOTE | 2022-04-08 18:29 | EDS_ITS ---
HPI History of Present Illness Chief Complaint: Shortness of Breath Informant: patient Onset/Context/Timing Onset: Days Context: Gradual Onset Current Severity: Mild Maximum Severity: Moderate Narrative Narrative: Patient present secondary to shortness of breath. She had COVID 2 weeks ago. [place] that she got better but is noted increased shortness of breath for the last for 5 days. She gets intermittent chest pressure in the sternal region. This seems to be worse with exertion. She states he does not do anything special to make the pain go away. She saw her primary care physician who was concerned about a pulmonary embolism. Patient has a history of DVT and PE. She is only been taking her Eliquis once a day instead of twice a day stating that she forgets to take it in the morning. She states she did have some leg pain last week. [facility] Medical History Bipolar 1 disorder Cardiomyopathy Chest pain CHF (congestive heart failure) Diabetes Dizzy DVT (deep venous thrombosis) Eczema HTN (hypertension) IBS (irritable bowel syndrome) Nausea & vomiting BALDEMAR (obstructive sleep apnea) Palpitation PUD (peptic ulcer disease) Pulmonary embolism Schizophrenia Schizophrenia Stroke/cerebrovascular accident Home Medications haloperidol 5 mg tablet 10 mg PO QHS mood 07/12/19 [History Last Taken 07/18/20] apixaban 5 mg tablet 5 mg PO BID blood thinner 07/19/20 [History Last Taken 07/19/20] benztropine 1 mg tablet 1 mg PO BID mood 07/19/20 [History Last Taken 07/19/20] fluoxetine 20 mg capsule 20 mg PO DAILY depression 07/19/20 [History Last Taken 07/19/20] metformin 500 mg tablet,extended release 24 hr 500 mg PO DAILY dm 07/19/20 [History Last Taken 07/19/20] olanzapine 15 mg disintegrating tablet 15 mg PO QHS mood 07/19/20 [History Last Taken 07/18/20] albuterol sulfate 90 mcg/actuation aerosol inhaler (Ventolin HFA) 1 - 2 puff inhalation Q4H PRN PRN Wheezing #1 ea 03/13/22 [Rx Last Taken Unknown] Allergy/AdvReac Type Severity Reaction Status Date / Time No Known Allergies Allergy Verified 04/08/22 16:54 Family History Mother Breast cancer Surgical History History of esophagogastroduodenoscopy (EGD) S/P cholecystectomy S/P dilation and curettage S/P hysterectomy S/P nasal septoplasty Social History household members: spouse housing: house Smoking Status: Never smoker ROS ROS ED Constitutional Constitutional ED: Denies chills or fever(s) Eyes Eyes: Denies change in vision or discharge from eye(s) ENT ENT ED: Denies discharge from eye(s), rhinorrhea or sore throat Cardiovascular Cardiovascular: Reports chest pain; Denies palpitations Respiratory/Chest Respiratory/Chest: Reports cough and dyspnea Gastrointestinal Gastrointestinal: Denies abdominal pain, diarrhea, nausea or vomiting Genitourinary Genitourinary ED: Denies dysuria Musculoskeletal Musculoskeletal: Reports extremity pain; Denies back pain Integumentary Denies Abrasions or rash Neurologic Neurologic: Denies headache(s) or weakness Allergic/Immunologic Allergic/Immunologic ED: Denies lip swelling or urticaria EXAM Physical Exam Const Vital Signs: 04/08/22 16:54 04/08/22 18:50 04/08/22 18:54 Temperature 98.0 F Temperature Source Temporal Pulse Rate 121 H 105 H Respiratory Rate 20 H 17 Respiratory Effort Short of Breath Blood Pressure 107/87 H Blood Pressure Mean 93 Pulse Ox 92 98 Oxygen Delivery Method Room Air Room Air 04/08/22 19:49 Temperature Temperature Source Pulse Rate 104 H Respiratory Rate Respiratory Effort Blood Pressure Blood Pressure Mean Pulse Ox 94 Oxygen Delivery Method Room Air Positive well nourished and well developed General Appearance ED: well developed HEENT Reports normocephalic and head/scalp atraumatic Eyes PERRL and EOMs intact bilaterally Neck supple Chest Wall inspection of chest normal and palpation of chest normal Resp normal respiratory effort and clear to auscultation bilaterally Cardio regular rate and regular rhythm GI normal to inspection, nondistended, normoactive bowel sounds Palpation: soft Extremity normal to inspection Neuro oriented x3 and no sensory deficits noted Sensorium / Orientation: alert Motor Exam: strength 5/5 throughout Psych mental status grossly normal Skin no rashes or lesions noted MDM MDM MDM Narrative Medical decision making narrative: 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 EKG and lab work obtained. CTA of the chest ordered. Lab Data Attestation: I reviewed the patient's lab results. Labs: Laboratory Results - last 24 hr 04/08/22 04/08/22 18:50 18:50 WBC 7.6 RBC 4.96 Hgb 14.9 Hct 46.5 MCV 93.8 MCH 30.0 MCHC 32.0 RDW Std Deviation 42.4 RDW Coeff of Pato 12.4 Plt Count 257 MPV 9.8 Immature Gran % (Auto) 0.300 Neut % (Auto) 62.3 Lymph % (Auto) 24.2 [place] % (Auto) 10.3 H Eos % (Auto) 2.6 Baso % (Auto) 0.3 Absolute Neuts (auto) 4.7 Absolute Lymphs (auto) 1.83 Nucleated RBC % 0 Sodium 142 Potassium 4.0 Chloride 107 Carbon Dioxide 30.0 Anion Gap 5 BUN 17 Creatinine 1.09 H Estim Creat Clear Calc 50.95 Est GFR (MDRD) Af Amer 67 Est GFR (MDRD) Non-Af 56 L BUN/Creatinine Ratio 15.6 Glucose 114 H Calcium 9.2 Troponin I High Sens 5 Radiography Diagnostic Testing: Clinical Impression(s) from Imaging Studies Chest CTA 04/08/22 18:27 IMPRESSION: undefined CTA chest: IMPRESSIONS: 1. No CTA evidence of pulmonary embolism. 2. No CTA evidence of aortic aneurysm or dissection 3. Normal CT appearance of the heart and pericardium. Scattered coronary vascular calcifications. 4. No focal infiltrate consolidation or effusion noted. EKG Initial EKG: Attestation: I personally reviewed and interpreted this EKG as follows: Interpretation: Sinus Tachycardia (Sinus tach at 114 with no acute ischemia.) Treatment and Re-Evaluation Narrative: Repeat evaluation patient lying in bed no acute distress. She is not hypoxic. Heart rate is 99. Lab work is normal with normal troponin. EKG reveals no ischemia. CTA of the chest reveals no evidence of pulmonary embolism. No focal infiltrate is noted. Test results discussed with the patient. She was encouraged to be sure she takes her Eliquis twice a day as prescribed. She will be discharged to home with close follow-up. Discharge Plan Triage Chief Complaint: Shortness of Breath ED Provider: Olivia York Dx/Rx/DC Orders Clinical Impression: Dyspnea Instructions: ED Dyspnea Prescriptions: No Action haloperidol 5 MG tablet 10 mg PO QHS apixaban 5 MG tablet 5 mg PO BID benztropine 1 MG tablet 1 mg PO BID olanzapine 15 MG tablet,disintegrating 15 mg PO QHS fluoxetine 20 MG capsule 20 mg PO DAILY metformin 500 MG tablet extended release 24 hr 500 mg PO DAILY albuterol sulfate [Ventolin HFA] 90 mcg/actuation HFA aerosol inhaler 1 - 2 puff inhalation Q4H PRN PRN (Reason: Wheezing) Qty: 1 0RF Primary Care Provider: Paty Catalan Referrals: Paty Catalan, [Primary Care Provider] - 1 Week if not improving Activity Restrictions/Additional Instructions: Please be sure you take your Eliquis twice a day as prescribed. Disposition Disposition: Home, Self Care
[2022-04-08] MEDS: 0.9% Normal Saline 1,000 ML 150 ML IV (18:50)
[2022-04-08 18:54] VITALS: PULSE 105; RESP 17; O2SAT 98
[2022-04-08 19:03] LABS: Absolute Lymphocyte Count 1.83 X10^3/uL (0.83-4.51); Absolute Neutrophil Count 4.7 X10^3/uL (2.0-7.7); Basophil# 0.02 X10^3/uL; Basophil% 0.3 % (0-1); Eosinophils% 2.6 % (0-5); Hematocrit 46.5 % (37-47); Hemoglobin 14.9 g/dL (12.0-15.0); Lymphocyte # 1.83 X10^3/ul (0.83-4.51); Lymphocyte % 24.2 % (19-41); Mean Corpuscular Volume 93.8 fL (81-99); Mean Platelet Vol. 9.8 fl (6.2-12.0); Monocyte# 0.78 X10^3/uL; Monocyte% 10.3 % (0-10); NRBC Flagged by Analyzer 0 % (0-5); Neutrophil # 4.72 X10^3/uL (2.7-7.7); Neutrophil % 62.3 % (47-70); Platelet Count 257 K/mm3 (150-450); RBC Distribution Width CV 12.4 % (11.6-14.6); RBC Distribution Width SD 42.4 fl (35.1-43.9); Red Blood Count 4.96 M/mm3 (4.2-5.4); White Blood Count 7.6 K/mm3 (4.4-11.0)
[2022-04-08 19:19] LABS: Anion Gap 5 (5-15); BUN 17 mg/dL (7-18); BUN/Creat Ratio 15.6 RATIO (10-20); Calcium,Total 9.2 mg/dL (8.5-10.1); Chloride 107 mmol/L (98-107); Creatinine, Serum 1.09 mg/dL (0.55-1.02); EST Glomerular Filtration Rate 56 mL/min (>60); Est Glom Filt Rate - Afr Amer 67 mL/min (>60); Estimated Creatinine Clearance 50.95 ml/min; Glucose 114 mg/dL (74-106); Sodium Level 142 mmol/L (136-145); Troponin-I HS 5 pg/mL (3.0-54.0)
[2022-04-08 19:49] VITALS: PULSE 104; O2SAT 94
[2022-04-08 20:36] VITALS: BP 118/75; PULSE 102; RESP 15; O2SAT 99
== END 2022-04-08 20:36 | disposition home or self-care (01) ==
PROVIDERS: Emergency Provider Emergency Medicine; PCP Internal Medicine; Visit Provider Emergency Medicine
DX: R06.02 Shortness of breath (principal); I11.0 Hypertensive heart disease with heart failure; I50.9 Heart failure, unspecified; E11.9 Type 2 diabetes mellitus without complications; Z86.16 Personal history of COVID-19; Z86.718 Personal history of other venous thrombosis and embolism; Z79.01 Long term (current) use of anticoagulants
CPT/HCPCS: 71275; 80048; 84484; 85025; 93005; 99284; J7030; Q9967; A4216

== ENCOUNTER → 2022-05-04 | Outpatient (CLI) | payer OTHER, MEDICARE, SELFPAY ==
--- NOTE | 2022-05-04 16:18 | BI_ITS ---
MAMMOGRAPHY - BILATERAL SCREENING REASON FOR EXAM: Female, 52 years old. Routine annual screening examination. PERTINENT HISTORY: Mother with breast cancer. Aunt with breast cancer. TECHNIQUE: Digital bilateral breast toro (3D mammographic acquisition) in the CC and MLO projections. 2-D mediolateral oblique (MLO) and craniocaudad (CC) views of both breasts were obtained. CAD: Full Field Digital Mammography with Computer Added Detection was performed. COMPARISON: Comparison is made with prior examination 09/30/2017. FINDINGS: Breast Composition: There are scattered areas of fibroglandular density. Since prior study, there now is evidence of diffuse microcalcifications in the deep axillary region of the right breast. Biopsy recommended. No other significant abnormalities are identified. BI/SCRN MAMM (CAD)W/TORO BILAT IMPRESSION: Diffuse collection of microcalcifications in the deep axillary region of the right breast as described. Biopsy recommended. ASSESSMENT CATEGORY: BIRADS Category 4: Suspicious - Biopsy Should Be Considered. A letter regarding these results will be sent to the patient by the facility within 30 days. Approximately 10% of breast cancers are not detected by mammography. A normal mammogram should not delay biopsy of a clinically suspicious abnormality. [id number] Electronically Signed: Jaxon Zhang MD at 8:36 EST ,
== END | disposition home or self-care (01) ==
PROVIDERS: PCP Internal Medicine; Referring Provider Internal Medicine; Visit Provider Internal Medicine
DX: Z12.31 Encounter for screening mammogram for malignant neoplasm of breast (principal); Z80.3 Family history of malignant neoplasm of breast
CPT/HCPCS: 77063; 77067

== ENCOUNTER → 2022-05-07 | Outpatient (CLI) | payer OTHER, MEDICARE, SELFPAY ==
[2022-05-07 12:44] LABS: Absolute Lymphocyte Count 2.19 X10^3/uL (0.83-4.51); Basophil# 0.02 X10^3/uL; Basophil% 0.2 % (0-1); Eosinophil# 0.19 X10^3/uL; Eosinophils% 2.3 % (0-5); Hematocrit 46.7 % (37-47); Hemoglobin 15.7 g/dL (12.0-15.0); Lymphocyte # 2.19 X10^3/ul (0.83-4.51); Lymphocyte % 26.8 % (19-41); Mean Corp Hgb Conc 33.6 g/dL (32-36); Mean Corpuscular Hgb 30.7 pg (27.0-32.0); Mean Corpuscular Volume 91.4 fL (81-99); Mean Platelet Vol. 9.9 fl (6.2-12.0); Monocyte# 0.74 X10^3/uL; Monocyte% 9.1 % (0-10); NRBC Flagged by Analyzer 0 % (0-5); Neutrophil # 4.99 X10^3/uL (2.7-7.7); Neutrophil % 61.2 % (47-70); Platelet Count 247 K/mm3 (150-450); RBC Distribution Width CV 12.3 % (11.6-14.6); RBC Distribution Width SD 41.5 fl (35.1-43.9); Red Blood Count 5.11 M/mm3 (4.2-5.4); White Blood Count 8.2 K/mm3 (4.4-11.0)
[2022-05-07 13:04] LABS: ALB/GLOB Ratio 0.8 RATIO (0.9-2.4); AST(SGOT) 24 U/L (15-37); Alanine Aminotransfer ALT/SGPT 48 U/L (13-56); Albumin, Serum 3.4 g/dL (3.2-5.0); Alkaline Phosphatase 90 U/L (45-117); Anion Gap 6 (5-15); BUN 14 mg/dL (7-18); BUN/Creat Ratio 15.1 RATIO (10-20); Calcium,Total 8.6 mg/dL (8.5-10.1); Chloride 104 mmol/L (98-107); Creatinine, Serum 0.92 mg/dL (0.55-1.02); EST Glomerular Filtration Rate 67 mL/min (>60); Est Glom Filt Rate - Afr Amer 81 mL/min (>60); Globulin 4.3 g/dL (2.2-4.2); Glucose 118 mg/dL (74-106); Potassium 3.8 mmol/L (3.5-5.1); Protein, Total 7.7 g/dL (6.4-8.2); Sodium Level 139 mmol/L (136-145); Thyroid Stim Hormone (TSH) 1.82 uIU/mL (0.358-3.74); Troponin-I HS 6 pg/mL (3.0-54.0)
== END | disposition home or self-care (01) ==
LOC: LABSPEC 12:31
PROVIDERS: PCP Internal Medicine; Visit Provider Internal Medicine
DX: R00.0 Tachycardia, unspecified (principal); R07.89 Other chest pain
CPT/HCPCS: 80053; 84443; 84484; 85025

== ENCOUNTER 2022-05-11 16:12 | Outpatient (CLI) | payer OTHER, MEDICARE, SELFPAY ==
--- NOTE | 2022-05-11 16:14 | CT_ITS ---
EXAM: CT ANGIOGRAPHY CHEST WITHOUT AND WITH INTRAVENOUS CONTRAST CLINICAL INDICATION: R/O BLOOD CLOT, ELEVATED HR, SOB TECHNIQUE: Helically acquired angiography images were obtained of the chest without and with intravenous contrast. CTDIvol = ( 32.43 ) mGy, DLP = ( 1742.83 ) mGycm This CT exam was performed using one or more of the following dose reduction techniques: automated exposure control, adjustment of the mA and/or kV according to patient size, and/or use of iterative reconstruction technique. This report was created using [employer] report generation technology. MIP reconstructed images were created and reviewed. CONTRAST: IV 100mL Isovue-370 COMPARISON: None. FINDINGS: PULMONARY ARTERIES: Unremarkable. Normal in caliber. No evidence of pulmonary embolism. AORTA: Unremarkable. Normal in caliber. No evidence of dissection. GREAT VESSELS OF AORTIC ARCH: Unremarkable. Normal in caliber. No evidence of dissection. LUNGS AND PLEURAL SPACES: Unremarkable. No mass. No consolidation or edema. No pleural effusion or thickening. No pneumothorax. HEART: Unremarkable. Heart size is normal. No pericardial effusion. No signs of right heart strain, ratio of right ventricle to left ventricle measures less than 1. MEDIASTINUM: Unremarkable. No mediastinal or hilar adenopathy. Esophagus is unremarkable. No hiatal hernia. THYROID: Unremarkable. No thyroid lesions. BONES/JOINTS: Unremarkable. No suspicious lytic or blastic abnormality. CT/CTA Chest W/WO Contrast IMPRESSION: No PE, pneumonia or other acute disease. Electronically Signed: Tayo Bravo MD at 16:58 EST ,
== END 2022-05-11 23:59 | disposition home or self-care (01) ==
PROVIDERS: PCP Internal Medicine; Referring Provider Internal Medicine; Visit Provider Internal Medicine
DX: R06.02 Shortness of breath (principal)
CPT/HCPCS: 71275; Q9967; A4216

== ENCOUNTER 2022-05-12 11:54 | Outpatient (CLI) | payer OTHER, MEDICARE, SELFPAY | END 2022-05-12 23:59 | disposition home or self-care (01) | LOC: PSN 11:54 | PROVIDERS: PCP Internal Medicine; Referring Provider Internal Medicine; Visit Provider Internal Medicine | DX: R00.2 Palpitations (principal) | CPT/HCPCS: 93225; 93226 ==

== ENCOUNTER 2022-05-27 09:32 | Outpatient (CLI) | payer OTHER, MEDICARE, SELFPAY ==
--- NOTE | 2022-05-27 | IMM_PTH ---
PATIENT: COOPER NIELSEN LOC: [facility] U#:[id number] AGE/SX: 52/F ROOM: RE05/27/[address]: Dr. Norman Noland MD : 1970 BED: DIS: 05/27/2022 SPEC #: [id number] RECD: 05/28/22 13:47 STATUS: CARITO REQ #: [id number] ROSALINE: 05/27/22 00:[address]: Norman Noland DEPT: IMMUNOHISTOCHEMISTRY RECD BY: Mirna Cancino ENTERED: 05/28/22 13:48 SP TYPE: IMMUNO OTHR DR: Dr. Paty Catalan DO Tissues: Right breast, NOS Procedures: CK8 (add) DAVID (add) MACRO (add) P53 (add) Vimentin (add) Pankeratin (initial) PHYSICIAN & INSTITUTION [place] [id number] SPECIMEN INFORMATION: Tissue Source: Right breast Clinical Info: Right breast deep axillary microcalcifications Specimen Number: [id number] #1 CPT code: 94933, 41937 x5 METHODOLOGY: Deparaffinized sections of prefer/formalin-fixed tissue or PAP/DQ stained slides are incubated with monoclonal/polyclonal antibodies/oligonucleotide probes. Localization is made via biotin free immunoperoxidase method. Appropriate controls are performed and reacted as expected. Results on target cell population are indicated in the following table: RESULTS: ANTIBODY / CLONE RESULT Block 1 AE1-3 (AE1/AE3/PCK26) negative CK8 (01onqbU77) negative Vimentin (V9) positive Macro (HAM-56) positive DAVID (E29) negative P53 (DO-7) negative These tests were developed and their performance characteristics determined by [facility]. They may not have been cleared or approved by the U.S. Food and Drug Administration. The FDA has determined that such clearance or approval is not necessary. The above immunohistochemical/dualISH markers are ordered and reviewed by the Pathologist. INTERPRETATION: Right breast, stereotactic core biopsy: No evidence of malignancy. AM:torres 05/29/2022
--- NOTE | 2022-05-27 | BRBX_PTH ---
PATIENT: COOPER NIELSEN LOC: [facility] U#:[id number] AGE/SX: 52/F ROOM: RE05/27/[address]: Dr. Norman Noland MD : 1970 BED: DIS: 05/27/2022 SPEC #: [id number] RECD: 05/27/22 11:46 STATUS: CARITO REJanette #: [id number] ROSALINE: 05/27/22 00:[address]: Norman Noland DEPT: SURGICAL PATHOLOGY RECD BY: Samson Mcneill ENTERED: 05/27/22 11:46 SP TYPE: BREAST BX OTHR DR: Dr. Paty Catalan DO Tissues: Right breast, NOS Procedures: Surgery Specimen Level IV HEADER OPERATION: Right stereotactic breast biopsy PRE-OP DIAGNOSIS: Right breast deep axillary microcalcifications TISSUE SUBMITTED: Right breast core tissue ISCHEMIC TIME: 1 minute FIXATION TIME: 8 hours MICROSCOPIC DIAGNOSIS Right breast, stereotactic core biopsy: Hyalinized nodule associated with fat necrosis, chronic inflammation and clustered microcalcifications. No evidence of malignancy. See comment. AM:torres 05/28/2022 COMMENT A reactive reparative change inclusive of a cyst rupture is favored. Clinical correlation is suggested. Immunohistochemistry ([id number]) supports the above diagnosis. MICROSCOPIC DESCRIPTION Slides are reviewed. GROSS DESCRIPTION Received is one container labeled with the patient's name and not further designated. The specimen consists of multiple irregular fragments of yellow fatty tissue that in aggregate measure 5 x 3 x 0.2 cm. The specimen is totally submitted in two cassettes. / AM:torres 05/27/2022 TC:5 CPT: 43403
--- NOTE | 2022-05-27 09:43 | PCM.HP.BLA ---
History and Physical Date of Admission: 05/27/22 Intake Visit Reasons:?MICROCALCIFICATION OF THE BREAST/ BIRADS 4 Chief Complaint: BIRADS 4 Microcalcification of the right breast Order Desk Caller Required: No Is patient in pain?: No Allergies No Known Allergies Allergy (Verified 05/11/22 15:20) Medications haloperidol 5 mg tablet 10 mg PO QHS mood 07/12/19 [History Confirmed 05/11/22] apixaban 5 mg tablet 5 mg PO BID blood thinner 07/19/20 [History Confirmed 05/11/22] benztropine 1 mg tablet 1 mg PO BID mood 07/19/20 [History Confirmed 05/11/22] fluoxetine 20 mg capsule 20 mg PO DAILY depression 07/19/20 [History Confirmed 05/11/22] metformin 500 mg tablet,extended release 24 hr 500 mg PO DAILY dm 07/19/20 [History Confirmed 05/11/22] albuterol sulfate 90 mcg/actuation aerosol inhaler (Ventolin HFA) 1 - 2 puff inhalation Q4H PRN PRN Wheezing #1 ea 03/13/22 [Rx Confirmed 05/11/22] carvedilol 3.125 mg tablet (Coreg) 3.125 mg PO BID 05/11/22 [History Confirmed 05/11/22] docusate sodium 100 mg capsule (Colace) 100 mg PO BID 05/11/22 [History Confirmed 05/11/22] fluticasone propionate 50 mcg/actuation nasal spray,suspension (Flonase Allergy Relief) 2 spray intranasal DAILY 05/11/22 [History Confirmed 05/11/22] haloperidol decanoate 100 mg/mL intramuscular solution (Haldol Decanoate) 150 mg IM Q4W 05/11/22 [History Confirmed 05/11/22] olanzapine 15 mg disintegrating tablet 20 mg PO QHS mood 05/11/22 [History Confirmed 05/11/22] polyethylene glycol 3350 17 gram/dose oral powder (Miralax) 4 g PO DAILY 05/11/22 [History Confirmed 05/11/22] topiramate 50 mg tablet (Topamax) 50 mg PO QHS 05/11/22 [History Confirmed 05/11/22] PFSH Medical History? Bipolar 1 disorder Cardiomyopathy Chest pain CHF (congestive heart failure) Diabetes Dizzy DVT (deep venous thrombosis) Eczema HTN (hypertension) IBS (irritable bowel syndrome) Nausea & vomiting BALDEMAR (obstructive sleep apnea) Palpitation PUD (peptic ulcer disease) Pulmonary embolism Schizophrenia Schizophrenia Stroke/cerebrovascular accident Surgical History? History of esophagogastroduodenoscopy (EGD) S/P cholecystectomy S/P dilation and curettage S/P hysterectomy S/P nasal septoplasty Family History?(Updated 05/11/22 @ 15:16 by Arminda Wednesday) Mother Breast cancerAunt Breast cancer Social History?(Updated 05/11/22 @ 15:16 by Arminda Wednesday) household members:? spouse housing:? house Smoking Status:? Former smoker alcohol intake:? former substance use type:? does not use HPI HPI HPI: 52-year-old female who is being referred by Dr. Paty Catalan for surgical consultation regarding abnormal mammogram.? A written copy of my surgical consult recommendations will be returned to her.? Patient has a complex medical history which includes catatonia schizophrenia and bipolar disorder and hypertension and congestive heart failure and obstructive sleep apnea and deep venous thrombosis as well as palpitations.? This is also complicated by type 2 diabetes mellitus and morbid obesity with a body weight of 274 pounds and a BMI of 47.1.? She is on chronic anticoagulation Eliquis but apparently inconsistent with dosing. Patient's mother had breast cancer in August of 2017. Patient denies palpating any abnormal lumps in her breast. She notes her first menstrual cycle was at age 9 or 10. Patient notes she had a hysterectomy 18 years ago for an abnormal uterus. Patient is unsure if she still has her ovaries. She notes this procedure was completed at [facility]. Patient denies menstruation at this time. Patient states she has had 4 pregnancies and 3 live births. She did not breast feed. ? She had routine screening mammography on May 04, 2022 demonstrating diffuse microcalcifications in the deep axillary area of the right breast BI-RADS Category 4 biopsy recommended. Cardiac stress test of November 27, 2020 demonstrated a normal pharmacologic study with an ejection fraction of 66%.? An EKG of April 08, 2022 demonstrated sinus tachycardia with an atrial and ventricular rate of 114.? Otherwise normal. Through the emergency room on April 08, 2022 she had a CTA of the chest and this was felt to be normal. April 08, 2022 STUDY:? CTA CHEST REASON FOR EXAM:? Female, 52 years old.? Pulmonary embolism.? Recent Covid, chest pain.? Evaluate for PE. RADIATION DOSAGE (If Supplied By Facility):? CTDIvol = ( 19.79 ) mGy, DLP = ( 532.73 ) mGycm TECHNIQUE:? The examination was performed with the intravenous administration of IV 100mL Isovue-370.? Post-processing of the angiographic images was performed, with multiplanar reformation and 3D reconstruction. Individualized dose optimization techniques were used for this CT. COMPARISON:? 06/17/2017 FINDINGS: Tubes and lines: 1.? No life-support noted. CTA: PULMONARY ARTERIES: There is normal configuration and contrast opacification of pulmonary outflow tract, main pulmonary arteries, segmental and intersegmental pulmonary arteries bilaterally without evidence of intraluminal filling defects. AORTIC ARCH: The aortic arch and descending aorta have normal configuration. No evidence of dissection or aneurysmal dilatation. HEART: Cardiac contour is normal. No evidence pericardial effusion. Scattered coronary vascular calcifications. CT CHEST: LUNGS:? [Unremarkable.? No mass.? No consolidation. PLEURAL SPACES: Unremarkable, no effusion or pneumothorax.. MEDIASTINUM AND LYMPH NODES:? Unremarkable. No significant adenopathy. BONES: Unremarkable ABDOMEN: Within normal limits. Other: None IMPRESSIONS: 1.? No CTA evidence of pulmonary embolism. 2.? No CTA evidence of aortic aneurysm or dissection 3.? Normal CT appearance of the heart and pericardium.? Scattered coronary vascular calcifications. 4.? No focal infiltrate consolidation or effusion noted. Electronically Signed: Rishi Mckeon MD at 20:18 EDT , May 04, 2022 MAMMOGRAPHY - BILATERAL SCREENING REASON FOR EXAM:? ? Female, 52 years old.? Routine annual screening examination. PERTINENT HISTORY:? Mother with breast cancer.? Aunt with breast cancer. TECHNIQUE: ? Digital bilateral breast toro (3D mammographic acquisition) in the CC and MLO projections. 2-D mediolateral oblique (MLO) and craniocaudad (CC) views of both breasts were obtained.? CAD: Full Field Digital Mammography with Computer Added Detection was performed. COMPARISON: ? Comparison is made with prior examination 09/30/2017. FINDINGS: Breast Composition:? There are scattered areas of fibroglandular density. Since prior study, there now is evidence of diffuse microcalcifications in the deep axillary region of the right breast.? Biopsy recommended. No other significant abnormalities are identified. BI/SCRN MAMM (CAD)W/TORO BILAT IMPRESSION: Diffuse collection of microcalcifications in the deep axillary region of the right breast as described.? Biopsy recommended. ? ? ASSESSMENT CATEGORY: BIRADS Category 4:? Suspicious - Biopsy Should Be Considered.? A letter regarding these results will be sent to the patient by the facility within 30 days. ? Approximately 10% of breast cancers are not detected by mammography.? A normal mammogram should not delay biopsy of a clinically suspicious abnormality. ? [id number] ? Electronically Signed: Jaxon Zhang MD at 8:36 EST , Patient notes she is on anticoagulation for history of blood clots. Patient was recently evaluated by her PCP for shortness of breath and heart palpitations. Patient was scheduled for a CTA of the chest today per her PCP. Patient denies cardiac palpitations at this time. ROS General General: Yes weight change and fatigue; No appetite, colon cancer, breast cancer or weakness HEENT HEENT: Yes difficulty swallowing; No eye injury, eye surgery, swollen glands or hoarseness Endo Endocrine: No thyroid disease, diabetes mellitus, thyroid cancer, Hair loss, heat intolerance or cold intolerance Skin Skin: No rash or changing moles Breast Breast: Yes abnormal mammogram; No left breast lump, right breast lump, nipple discharge, breast pain, abnormal US or breast enlargement Musc Musculoskeletal: Yes back problems and arthritis; No rheumatoid arthritis, gout or joint pain Cardio Cardiovascular: Yes heart disease and high blood pressure; No murmur, pacemaker, atrial fibrillation, heart attack, heart stent, palpitations, shortness of breat with exertion or chest pain Psych Psychiatric: Yes depression and anxiety; No hearing voices Resp Respiratory: Yes shortness of breath, Yes sleep apnea, No cough, Yes COPD, Yes asthma, No emphysema and No wheezing Gastro Gastrointestinal: Yes abdominal pain, No nausea or vomiting, Yes diarrhea, No constipation, No blood in stool, No acid reflux, No hemorrhoids, No ulcers, No gallbladder problem and No black,tarry stools Davey Hematologic: Yes blood thinners, No blood disorders, No bleeding, No anemia and Yes blood clots Neuro Neurologic: No system reviewed and no additional complaints, except as documented, No as per HPI, No abnormal gait, No abnormal hearing, No abnormal movements, No abnormal speech, No behavioral changes, No burning sensations, No confusion, No convulsions, No disequilibrium, No dizziness, No localized weakness, No frequent falls, No headache(s), No lack of coordination, No loss of vision, No memory loss, No numbness, No other visual disturbances, No radicular pain, No restless legs, No sensory deficit, No syncope, No tingling, No tremor(s), No weakness and Yes other (hx stroke) Exam Const General: cooperative, healthy appearing, comfortable and no acute distress [facility] Head: normal to inspection Eyes General: appearance normal, both eyes and all related structures Neck Neck: normal visual inspection Neck mass: No Chest Breast inspection: normal inspection of the breasts Breast Palpation: Yes normal palpation of the breasts, Yes normal palpation of the axillae and Yes no axillary lymphadenopathy Other: Very large breasted Resp Effort & Inspection: normal respiratory effort Auscultation: clear to auscultation bilaterally Cardio Rate: regular rate Rhythm: regular rhythm GI Inspection: large pannus and obesity Musc Cervical Spine: normal cervical lordosis Skin General: no rashes or lesions noted Neuro General: no focal motor deficits Extrem General: normal to inspection Psych Appearance: disheveled Affect: flat Assessment and Plan Assessment and Plan (1) Abnormal mammogram of right breast: ?Status:?Acute ?Plan: I was unable to make it to the office today.? The patient was seen by Sherly Tello PA-C.? Recommendations will be made for stereotactic needle core biopsy right breast.? The patient is on anticoagulant and has medical comorbidities noted above.? The procedure will be scheduled once we are cleared and able to cease her anticoagulant. Copy: Dr. Paty Noland M.D., F.A.C.S. Patient was evaluated in the office by myself due to Dr. Noland having an emergent surgery add-on. Patient was noted to have an abnormal mammogram and will need to be scheduled for a right stereotactic breast biopsy. Patient's family physician's office has been contacted to determine how long the patient is able to hold her Eliquis. Procedure was explained to the patient and her . They have had the opportunity to ask and have questions answered. Our office will schedule patient once confirmation is received to be able to hold patient's anticoagulation. Thank you for the opportunity to participate in this patient's care. I have examined the patient and the H&P has been reviewed. There are no clinical changes since date of exam. Norman Noland M.D., F.A.C.S.
--- NOTE | 2022-05-27 10:17 | PCM.OPRPT ---
Report of Operation Date of Procedure: 05/27/22 Pre-Operative Diagnosis: Microcalcifications upper outer quadrant right breast Post-Operative Diagnosis: Same Surgery/Procedure Performed:: Stereotactic needle core biopsy upper outer quadrant right breast Description of Surgical Findings:: Timeout informed consent was obtained. 52-year-old female was taken to the mammography suite stereotactic room placed prone in her table. Body habitus was quite challenging. With some effort the patient was positioned. The right breast was placed in the cc view. Images were obtained demonstrating multiple various calcifications. Stereotactic images were obtained. Breast was prepped with Betadine 1% lidocaine was used as a local anesthetic a total of 10 cc was used. A small stab incision was created an 8 gauge resolved needle was advanced to depth prefire films were obtained demonstrating adequate localization device was fired 6 cores were obtained specimen mammograms are obtained demonstrating at least 3 cores with microcalcifications a marking clip was left at 12 o'clock position she was released from the device pressure was held for hemostasis Steri-Strip Telfa OpSite dressing applied. She actually tolerated the procedure quite well. Blood loss was minimal. The specimens were immediately transferred to formalin for analysis. She was given activity wound care instructions Norman Noland M.D., F.A.C.S. Surgeon: Norman Noland Type of Anesthesia: Local
== END 2022-05-27 23:59 | disposition home or self-care (01) ==
PROVIDERS: PCP Internal Medicine; Visit Provider Surgery
DX: R92.0 Mammographic microcalcification found on diagnostic imaging of breast (principal); I11.0 Hypertensive heart disease with heart failure; I50.9 Heart failure, unspecified; F31.9 Bipolar disorder, unspecified; E66.01 Morbid (severe) obesity due to excess calories; Z68.42 Body mass index [BMI] 45.0-49.9, adult; E11.9 Type 2 diabetes mellitus without complications; Z79.01 Long term (current) use of anticoagulants; Z79.899 Other long term (current) drug therapy; G47.33 Obstructive sleep apnea (adult) (pediatric); Z86.718 Personal history of other venous thrombosis and embolism; Z86.73 Personal history of transient ischemic attack (TIA), and cerebral infarction without residual deficits; Z87.891 Personal history of nicotine dependence; Z80.3 Family history of malignant neoplasm of breast
CPT/HCPCS: 19081; 88305; 88341; 88342; J7050

== ENCOUNTER → 2022-09-01 | Outpatient (CLI) | payer OTHER, MEDICARE, SELFPAY ==
--- NOTE | 2022-09-01 16:37 | CT_ITS ---
EXAM: CT CHEST WITHOUT INTRAVENOUS CONTRAST CLINICAL INDICATION: DYSPNEA. CT DONE DYNAMIC AIRWAY COLLAPSE STUDY BOTH INSPIRATION AND EXPIRATION TECHNIQUE: Helically acquired images were obtained of the chest without intravenous contrast. This CT exam was performed using one or more of the following dose reduction techniques: automated exposure control, adjustment of the mA and/or kV according to patient size, and/or use of iterative reconstruction technique. This report was created using [employer] report generation technology. RADIATION DOSE: CTDIvol = 33.18 mGy, DLP = 1749.32 mGy-cm COMPARISON: May 11, 2022. FINDINGS: INFRAHYOID NECK: 2 series both labeled series 2 show narrowing of the distal trachea and mainstem bronchi and presumably the expiratory phase, the distal trachea is initially 1.4 cm AP, narrowing to 0.7 cm AP. The proximal right mainstem bronchus initially 1.1 cm AP, narrowing to 0.7 cm AP. Initial left mainstem bronchus 1 cm AP, narrowing to 7 mm AP. LUNGS AND PLEURAL SPACES: No significant infiltrates. HEART: Unremarkable. Heart size is normal. No pericardial effusion. No significant coronary artery calcifications. MEDIASTINUM: Mild mediastinal lipomatosis, no significant lymphadenopathy. As another prominent vessel in the medial breast bilaterally extending near the right internal thoracic artery region. Esophagus is unremarkable. THYROID: Unremarkable. No thyroid lesions. BONES/JOINTS: Unremarkable. No suspicious lytic or blastic abnormality. SOFT TISSUES: The breasts are not fully included. VASCULATURE: Collateral vessel in the ventral lower chest-upper abdominal wall. Thoracic aorta is non-dilated. CT/Chest without Contrast IMPRESSION: 1. Dynamic exam. 50% decrease in AP diameter of the distal trachea and milder degree of narrowing of the AP diameter of the proximal mainstem bronchi on the apparent expiratory exam. Some degree of narrowing is expected. Uncertain clinical significance. 2. No significant infiltrates. No adenopathy. Electronically Signed: Janae Fleming MD at 9:56 EST ,
== END | disposition home or self-care (01) ==
LOC: CT 16:35
PROVIDERS: PCP Internal Medicine; Visit Provider Internal Medicine Pulmonary Disease
DX: R06.02 Shortness of breath (principal)
CPT/HCPCS: 71250

== ENCOUNTER 2022-09-12 20:02 | Emergency (ER) | payer OTHER, MEDICARE, SELFPAY ==
[2022-09-12 20:03] VITALS: BP 148/100; PULSE 109; RESP 14; TEMP 36.6; O2SAT 94; BMI 47.5
--- NOTE | 2022-09-12 20:10 | CT_ITS ---
STUDY: CT ABDOMEN AND PELVIS WITHOUT CONTRAST REASON FOR EXAM: Female, 52 years old. Pain RADIATION DOSAGE (If Supplied By Facility): CTDIvol = ( 32.37 ) mGy, DLP = ( 1755.21 ) mGycm TECHNIQUE: Transaxial images were obtained from the dome of the diaphragm to the symphysis pubis without oral contrast, and without intravenous contrast. Sagittal and coronal images were reconstructed. Individualized dose optimization techniques were used for this CT. COMPARISON: None. FINDINGS: The visualized lung bases are unremarkable. The visualized portions of the heart are within normal limits. Normal liver. Nonvisualization of the gallbladder. No significant dilatation of the extrahepatic biliary system. Normal spleen. Normal pancreas. Normal bilateral adrenal glands. Normal right kidney. Normal left kidney. Normal visualized stomach. Normal small intestine. Normal colon. The appendix is visualized and appears normal. Normal abdominal aorta. Normal inferior vena cava. Normal retroperitoneum. Normal urinary bladder. Fatty periumbilical and umbilical hernias. Normal osseous structures. CT/Abdomen/Pelvis without Cont IMPRESSION: Fatty periumbilical and umbilical hernias. Electronically Signed: Stuart Wagner DO at 21:34 EDT Reading Location ID and State: [facility] / [place] Tel [phone], Service support ,
--- NOTE | 2022-09-12 20:12 | ED.VIS.GI ---
HPI HPI - GI History of Present Illness Chief Complaint: Abd Pain Narrative Narrative: 52-year-old female past medical history of bipolar disorder, hypertension, presents with 20 minutes of abdominal pain. She states it was sudden onset. First she described it in the right flank, then changed it to periumbilical. She denies any fevers or chills. No nausea or vomiting. She states that it suddenly went away, then returned. She felt like something flipped in her abdomen. No true exacerbating or alleviating factors. She denies any dysuria or hematuria, no other symptoms. PFSH PFS Medical History Bipolar 1 disorder Cardiomyopathy Chest pain CHF (congestive heart failure) Diabetes Dizzy DVT (deep venous thrombosis) Eczema HTN (hypertension) IBS (irritable bowel syndrome) Nausea & vomiting BALDEMAR (obstructive sleep apnea) Palpitation PUD (peptic ulcer disease) Pulmonary embolism Schizophrenia Schizophrenia Stroke/cerebrovascular accident Home Medications haloperidol 5 mg tablet 10 mg PO QHS mood 07/12/19 [History Last Taken 07/18/20] apixaban 5 mg tablet 5 mg PO BID blood thinner 07/19/20 [History Last Taken 07/19/20] benztropine 1 mg tablet 1 mg PO BID mood 07/19/20 [History Last Taken 07/19/20] fluoxetine 20 mg capsule 20 mg PO DAILY depression 07/19/20 [History Last Taken 07/19/20] metformin 500 mg tablet,extended release 24 hr 500 mg PO DAILY dm 07/19/20 [History Last Taken 07/19/20] albuterol sulfate 90 mcg/actuation aerosol inhaler (Ventolin HFA) 1 - 2 puff inhalation Q4H PRN PRN Wheezing #1 ea 03/13/22 [Rx Last Taken Unknown] carvedilol 3.125 mg tablet (Coreg) 3.125 mg PO BID 05/11/22 [History Last Taken Unknown] docusate sodium 100 mg capsule (Colace) 100 mg PO BID 05/11/22 [History Last Taken Unknown] fluticasone propionate 50 mcg/actuation nasal spray,suspension (Flonase Allergy Relief) 2 spray intranasal DAILY 05/11/22 [History Last Taken Unknown] haloperidol decanoate 100 mg/mL intramuscular solution (Haldol Decanoate) 150 mg IM Q4W 05/11/22 [History Last Taken Unknown] olanzapine 15 mg disintegrating tablet 20 mg PO QHS mood 05/11/22 [History Last Taken Unknown] polyethylene glycol 3350 17 gram/dose oral powder (Miralax) 4 g PO DAILY 05/11/22 [History Last Taken Unknown] topiramate 50 mg tablet (Topamax) 50 mg PO QHS 05/11/22 [History Last Taken Unknown] dicyclomine 20 mg tablet 20 mg PO TID PRN abdominal pain #15 tabs 09/12/22 [Rx Last Taken Unknown] Allergy/AdvReac Type Severity Reaction Status Date / Time No Known Allergies Allergy Verified 09/12/22 20:03 Family History Mother Breast cancer Aunt Breast cancer Surgical History History of esophagogastroduodenoscopy (EGD) S/P cholecystectomy S/P dilation and curettage S/P hysterectomy S/P nasal septoplasty Social History household members: spouse housing: house Smoking Status: Former smoker alcohol intake: former substance use type: does not use ROS ROS ED ROS Narrative Constitutional: No fever, no chills. HEENT: No sore throat. No neck pain. No loss of vision. No rhinorrhea. Cardiovascular: No chest pain. No palpitations. No pedal edema. Respiratory: No cough, no shortness of breath. Abdominal: Positive abdominal pain. No nausea. No vomiting. No diarrhea. Genitourinary: No dysuria. No hematuria. Musculoskeletal: No myalgias. No arthralgias. Neurologic: No headaches. No dizziness. No lightheadedness. Skin: No rash. No change in color. Psychiatric: No depression. No anxiety. EXAM Physical Exam Narrative Exam Narrative: Afebrile. Vital signs noted. HEENT: Normocephalic. Atraumatic. PERRL, EOMI. Neck soft and supple. No point tenderness or step off. Cardiovascular: Regular rate and rhythm. No murmurs, rubs, or gallops appreciated. Respiratory: No tachypnea. Lungs clear to auscultation bilaterally. Gastrointestinal: Abdomen soft, obese, minimal diffuse tenderness with normoactive bowel sounds. No rebound or guarding. Neurological: Awake. Alert. Nonfocal, nonlateralizing. Skin: No rash. Normal color. No pallor. Musculoskeletal: No pedal edema. Full range of motion extremities. Const Vital Signs: 09/12/22 20:03 Temperature 98 F Temperature Source Temporal Pulse Rate 109 H Respiratory Rate 14 Blood Pressure 148/100 H Blood Pressure Mean 116 Pulse Ox 94 Oxygen Delivery Method Room Air MDM MDM MDM Narrative Medical decision making narrative: In the differential diagnosis is bowel obstruction versus ureterolithiasis versus colitis versus nonspecific abdominal pain. Comprehensive work-up was pursued. I feel that she less likely has a bowel obstruction because her pain was sudden onset and only started in the last 20 minutes. I feel that she has probably having more nonspecific abdominal pain. She was administered Bentyl 20 mg intramuscularly for analgesia. We will obtain CBC, CMP, and lipase to rule out any pancreatitis. Additionally, CT imaging without contrast was obtained to look for ureterolithiasis or any acute intra-abdominal process including free fluid. I reviewed the patient's laboratory work, she has a normal CBC with normal white count of 7.5, hemoglobin slightly hemoconcentrated at 15.3 with hematocrit 48.2. Platelet count normal at 246. CMP reveals slightly elevated LFTs with an AST of 53 and an ALT of 65 with alk phos normal at 73, I think this is nonspecific elevation. She has normal sodium of 139, normal potassium of 4.2 and chloride normal at 102. BUN is 15 and creatinine 1.07. Lipase is normal at 94. She was bolused normal saline [address] of the abdomen and pelvis was obtained. I reviewed the imaging. I also reviewed the CT report by radiology which shows fatty umbilical hernias and periumbilical hernias, but no evidence of an acute process. She was given Bentyl for her pain. She states that she feels as if her organs were flopping around. I see no evidence of volvulus. Repeat examination shows her abdomen to remain soft. At this point in time, she was given a prescription for Bentyl No. 15 to take and she will follow-up with her primary care provider for her nonspecific abdominal pain. Return instructions to the emergency department were reviewed. Disposition is discharged home in stable condition. History & Record Review Discussion w/independent historian: Patient Additional record(s) reviewed:: Prior ED visit Lab Data Attestation: I reviewed the patient's lab results. Labs: Laboratory Results - last 24 hr 09/12/22 09/12/22 20:17 20:17 WBC 7.5 RBC 5.07 Hgb 15.3 H Hct 48.2 H MCV 95.1 MCH 30.2 MCHC 31.7 L RDW Std Deviation 42.7 RDW Coeff of Pato 12.4 Plt Count 246 MPV 9.7 Immature Gran % (Auto) 0.300 Neut % (Auto) 60.8 Lymph % (Auto) 26.6 [place] % (Auto) 7.9 Eos % (Auto) 4.3 Baso % (Auto) 0.1 Absolute Neuts (auto) 4.5 Absolute Lymphs (auto) 1.99 Nucleated RBC % 0 Sodium 139 Potassium 4.2 Chloride 102 Carbon Dioxide 30.0 Anion Gap 7 BUN 15 Creatinine 1.07 H Estim Creat Clear Calc 54.08 Est GFR (MDRD) Af Amer 69 Est GFR (MDRD) Non-Af 57 L BUN/Creatinine Ratio 14.0 Glucose 133 H Calcium 8.8 Total Bilirubin 0.60 AST 53 H ALT 65 H Alkaline Phosphatase 73 Total Protein 7.5 Albumin 3.4 Globulin 4.1 Albumin/Globulin Ratio 0.8 L Lipase 94 Radiography Diagnostic Testing: Clinical Impression(s) from Imaging Studies Abdomen/Pelvis CT 09/12/22 20:10 IMPRESSION: Fatty periumbilical and umbilical hernias. Electronically Signed: Stuart Wagner DO at 21:34 EDT Reading Location ID and State: [facility] / [place] Tel [phone], Service support , Discharge Plan Triage Chief Complaint: Abd Pain ED Provider: Josef Gardner Dx/Rx/DC Orders Clinical Impression: Abdominal pain, Elevated LFTs Instructions: ED Abdominal Pain Unkn Cause Fem Prescriptions: New dicyclomine 20 mg tablet 20 mg PO TID PRN (Reason: abdominal pain) Qty: 15 0RF No Action haloperidol decanoate [Haldol Decanoate] 100 mg/mL solution 150 mg IM Q4W carvedilol [Coreg] 3.125 mg tablet 3.125 mg PO BID Rx Instructions: must administer with a meal/food docusate sodium [Colace] 100 mg capsule 100 mg PO BID polyethylene glycol 3350 [Miralax] 17 gram/dose powder 4 g PO DAILY fluticasone propionate [Flonase Allergy Relief] 50 mcg/actuation spray,suspension 2 spray intranasal DAILY Rx Instructions: administer into each nostril topiramate [Topamax] 50 mg tablet 50 mg PO QHS haloperidol 5 MG tablet 10 mg PO QHS apixaban 5 MG tablet 5 mg PO BID benztropine 1 MG tablet 1 mg PO BID fluoxetine 20 MG capsule 20 mg PO DAILY metformin 500 MG tablet extended release 24 hr 500 mg PO DAILY olanzapine 15 mg tablet,disintegrating 20 mg PO QHS albuterol sulfate [Ventolin HFA] 90 mcg/actuation HFA aerosol inhaler 1 - 2 puff inhalation Q4H PRN PRN (Reason: Wheezing) Qty: 1 0RF Primary Care Provider: Paty Catalan Referrals: Paty Catalan DO [Primary Care Provider] - 3-5 Days if not improving Disposition Disposition: Home, Self Care
[2022-09-12 20:28] LABS: Absolute Lymphocyte Count 1.99 X10^3/uL (0.83-4.51); Absolute Neutrophil Count 4.5 X10^3/uL (2.0-7.7); Basophil# 0.01 X10^3/uL; Basophil% 0.1 % (0-1); Eosinophil# 0.32 X10^3/uL; Eosinophils% 4.3 % (0-5); Hematocrit 48.2 % (37-47); Hemoglobin 15.3 g/dL (12.0-15.0); Lymphocyte # 1.99 X10^3/ul (0.83-4.51); Lymphocyte % 26.6 % (19-41); Mean Corp Hgb Conc 31.7 g/dL (32-36); Mean Corpuscular Hgb 30.2 pg (27.0-32.0); Mean Corpuscular Volume 95.1 fL (81-99); Mean Platelet Vol. 9.7 fl (6.2-12.0); Monocyte# 0.59 X10^3/uL; Monocyte% 7.9 % (0-10); NRBC Flagged by Analyzer 0 % (0-5); Neutrophil # 4.54 X10^3/uL (2.7-7.7); Neutrophil % 60.8 % (47-70); Platelet Count 246 K/mm3 (150-450); RBC Distribution Width CV 12.4 % (11.6-14.6); RBC Distribution Width SD 42.7 fl (35.1-43.9); Red Blood Count 5.07 M/mm3 (4.2-5.4); White Blood Count 7.5 K/mm3 (4.4-11.0)
[2022-09-12] MEDS: Dicyclomine 20 MG/2 ML Vial IM (20:32)
[2022-09-12] MEDS: 0.9% Normal Saline 1,000 ML 1000 ML IV (20:32)
[2022-09-12 21:00] LABS: ALB/GLOB Ratio 0.8 RATIO (0.9-2.4); AST(SGOT) 53 U/L (15-37); Alanine Aminotransfer ALT/SGPT 65 U/L (13-56); Albumin, Serum 3.4 g/dL (3.2-5.0); Alkaline Phosphatase 73 U/L (45-117); Anion Gap 7 (5-15); BUN 15 mg/dL (7-18); Calcium,Total 8.8 mg/dL (8.5-10.1); Chloride 102 mmol/L (98-107); Creatinine, Serum 1.07 mg/dL (0.55-1.02); EST Glomerular Filtration Rate 57 mL/min (>60); Est Glom Filt Rate - Afr Amer 69 mL/min (>60); Estimated Creatinine Clearance 54.08 ml/min; Globulin 4.1 g/dL (2.2-4.2); Glucose 133 mg/dL (74-106); Lipase 94 U/L (73-393); Potassium 4.2 mmol/L (3.5-5.1); Protein, Total 7.5 g/dL (6.4-8.2); Sodium Level 139 mmol/L (136-145)
== END 2022-09-12 22:26 | disposition home or self-care (01) ==
PROVIDERS: Emergency Provider Emergency Medicine; PCP Internal Medicine; Visit Provider Emergency Medicine
DX: R10.9 Unspecified abdominal pain (principal); I11.0 Hypertensive heart disease with heart failure; I50.9 Heart failure, unspecified; F31.9 Bipolar disorder, unspecified; E11.9 Type 2 diabetes mellitus without complications; Z87.891 Personal history of nicotine dependence; Z79.899 Other long term (current) drug therapy; Z86.718 Personal history of other venous thrombosis and embolism; Z79.01 Long term (current) use of anticoagulants; Z86.711 Personal history of pulmonary embolism; Z86.73 Personal history of transient ischemic attack (TIA), and cerebral infarction without residual deficits; Z90.49 Acquired absence of other specified parts of digestive tract; Z90.710 Acquired absence of both cervix and uterus; R79.89 Other specified abnormal findings of blood chemistry
CPT/HCPCS: 74176; 80053; 83690; 85025; 96360; 96372; 99282; J7030; A4216

== ENCOUNTER 2022-09-26 07:32 | Inpatient (IN) | payer OTHER, MEDICARE, SELFPAY ==
[2022-09-26] VITALS (12 sets, daily range): BP systolic 130–138; BP diastolic 76–101; PULSE 84–102; RESP 16–22; TEMP 36.4–36.7; O2SAT 86–98; BMI 46.2; BMI 48.9
--- NOTE | 2022-09-26 07:38 | RAD_ITS ---
STUDY: X-RAY CHEST REASON FOR EXAM: Female, 52 years old. Chest pain TECHNIQUE: Frontal view of the chest COMPARISON: None. FINDINGS: The lungs are clear. There are no pleural effusions. There is no pneumothorax. The heart is normal in size. The visualized osseous structures are within normal limits. RAD/Chest 1 View (Portable) IMPRESSION: No acute thoracic pathology. Electronically Signed: Yash Hong MD at 8:40 EDT ,
--- NOTE | 2022-09-26 07:38 | EKG12_ITS ---
Test Reason : CP Blood Pressure : / mmHG Vent. Rate : 094 BPM Atrial Rate : 094 BPM P-R Int : 158 ms QRS Dur : 086 ms QT Int : 372 ms P-R-T Axes : 022 -15 009 degrees QTc Int : 465 ms Normal sinus rhythm Normal ECG Confirmed by ENID LEON, PAMELA ([id number]), food expeditor JOCELIN SANTOS ([id number]) on 09/28/2022 11:15:17 AM Referred By: MARTA Confirmed By:EMI ROSSI MD
[2022-09-26 08:07] LABS: Absolute Lymphocyte Count 1.75 X10^3/uL (0.83-4.51); Absolute Neutrophil Count 3.1 X10^3/uL (2.0-7.7); Basophil# 0.02 X10^3/uL; Basophil% 0.3 % (0-1); Eosinophil# 0.29 X10^3/uL; Hematocrit 44.9 % (37-47); Hemoglobin 14.2 g/dL (12.0-15.0); Lymphocyte # 1.75 X10^3/ul (0.83-4.51); Lymphocyte % 30.2 % (19-41); Mean Corp Hgb Conc 31.6 g/dL (32-36); Mean Corpuscular Hgb 30.4 pg (27.0-32.0); Mean Corpuscular Volume 96.1 fL (81-99); Monocyte# 0.62 X10^3/uL; Monocyte% 10.7 % (0-10); NRBC Flagged by Analyzer 0 % (0-5); Neutrophil # 3.09 X10^3/uL (2.7-7.7); Neutrophil % 53.3 % (47-70); Platelet Count 202 K/mm3 (150-450); RBC Distribution Width CV 12.5 % (11.6-14.6); RBC Distribution Width SD 44.2 fl (35.1-43.9); Red Blood Count 4.67 M/mm3 (4.2-5.4); White Blood Count 5.8 K/mm3 (4.4-11.0)
--- NOTE | 2022-09-26 08:16 | EDS_ITS ---
HPI History of Present Illness Chief Complaint: Chest Pain Narrative Narrative: 52-year-old with chest pain for about a week. She states has been short of breath for about a month. She states she does has had a cough. She was seen by her primary care physician who put her on an antibiotic. She believes it was Augmentin. This was for pneumonia. Patient states she is not really improving but denies any fevers, chills, body aches. She states he cannot clear her cough. She states that she feels like she cannot cough up the sputum that she has in her chest. Patient states that the pain in her chest has been constant for about a week. She states he has a history of DVT, also she states she might have a history of A-fib but she is not sure. She is on Eliquis and has been taking her medications as prescribed. She was seen by her astronaut mission specialist 2 weeks ago and did not mention any of this to him. Patient states that she does have a known history of COPD or asthma but has been given albuterol before for wheezing. She states no longer a smoker. Patient states she has a history of heart issues and history of cardiomyopathy. She denies cardiac stents or heart attacks in the past. [facility] Medical History Bipolar 1 disorder Cardiomyopathy Chest pain CHF (congestive heart failure) Diabetes Dizzy DVT (deep venous thrombosis) Eczema HTN (hypertension) IBS (irritable bowel syndrome) Nausea & vomiting BALDEMAR (obstructive sleep apnea) Palpitation PUD (peptic ulcer disease) Pulmonary embolism Schizophrenia Schizophrenia Stroke/cerebrovascular accident Home Medications haloperidol 5 mg tablet 10 mg PO QHS mood 07/12/19 [History Last Taken 07/18/20] apixaban 5 mg tablet 5 mg PO BID blood thinner 07/19/20 [History Last Taken 07/19/20] benztropine 1 mg tablet 1 mg PO BID mood 07/19/20 [History Last Taken 07/19/20] fluoxetine 20 mg capsule 20 mg PO DAILY depression 07/19/20 [History Last Taken 07/19/20] metformin 500 mg tablet,extended release 24 hr 500 mg PO DAILY dm 07/19/20 [History Last Taken 07/19/20] albuterol sulfate 90 mcg/actuation aerosol inhaler (Ventolin HFA) 1 - 2 puff inhalation Q4H PRN PRN Wheezing #1 ea 03/13/22 [Rx Last Taken Unknown] carvedilol 3.125 mg tablet (Coreg) 3.125 mg PO BID 05/11/22 [History Last Taken Unknown] docusate sodium 100 mg capsule (Colace) 100 mg PO BID 05/11/22 [History Last Taken Unknown] fluticasone propionate 50 mcg/actuation nasal spray,suspension (Flonase Allergy Relief) 2 spray intranasal DAILY 05/11/22 [History Last Taken Unknown] haloperidol decanoate 100 mg/mL intramuscular solution (Haldol Decanoate) 150 mg IM Q4W 05/11/22 [History Last Taken Unknown] olanzapine 15 mg disintegrating tablet 20 mg PO QHS mood 05/11/22 [History Last Taken Unknown] polyethylene glycol 3350 17 gram/dose oral powder (Miralax) 4 g PO DAILY 05/11/22 [History Last Taken Unknown] topiramate 50 mg tablet (Topamax) 50 mg PO QHS 05/11/22 [History Last Taken Unknown] dicyclomine 20 mg tablet 20 mg PO TID PRN abdominal pain #15 tabs 09/12/22 [Rx Last Taken Unknown] Allergy/AdvReac Type Severity Reaction Status Date / Time No Known Allergies Allergy Verified 09/26/22 07:35 Family History Mother Breast cancer Aunt Breast cancer Surgical History History of esophagogastroduodenoscopy (EGD) S/P cholecystectomy S/P dilation and curettage S/P hysterectomy S/P nasal septoplasty Social History household members: spouse housing: house Smoking Status: Former smoker alcohol intake: former substance use type: does not use ROS ROS ED Constitutional Constitutional ED: Denies subjective or sweats Eyes Eyes: Denies blurry vision or change in vision ENT ENT ED: Denies rhinorrhea or sore throat Cardiovascular Cardiovascular: Reports as per HPI Respiratory/Chest Respiratory/Chest: Reports cough and dyspnea Gastrointestinal Gastrointestinal: Denies abdominal pain, nausea or vomiting Genitourinary Genitourinary ED: Denies dysuria or hematuria Musculoskeletal Musculoskeletal: Denies arthralgias or back pain Integumentary Denies abscess or Abrasions Neurologic Neurologic: Denies headache(s) EXAM Physical Exam Const Vital Signs: 09/26/22 07:33 09/26/22 07:39 09/26/22 07:50 Temperature 97.5 F L Temperature Source Temporal Pulse Rate 101 H Respiratory Rate 22 H Respiratory Effort Normal Short of Breath Blood Pressure 138/76 H Blood Pressure Mean 96 Pulse Ox 90 90 Oxygen Delivery Method Room Air Room Air Oxygen Flow Rate (L/min) 09/26/22 08:49 09/26/22 08:49 09/26/22 08:49 Temperature Temperature Source Pulse Rate 84 Respiratory Rate 21 H 21 H Respiratory Effort Normal Blood Pressure Blood Pressure Mean Pulse Ox 98 97 Oxygen Delivery Method Room Air Room Air Oxygen Flow Rate (L/min) 09/26/22 11:28 09/26/22 11:58 Temperature Temperature Source Pulse Rate Respiratory Rate Respiratory Effort Blood Pressure Blood Pressure Mean Pulse Ox 86 93 Oxygen Delivery Method Room Air Nasal Cannula Oxygen Flow Rate (L/min) 1.5 Positive well nourished and obese General Appearance ED: NAD Nutritional Appearance: obese HEENT Reports moist mucous membranes normocephalic and atraumatic Eyes PERRL Chest Wall inspection of chest normal Resp normal respiratory effort Auscultation: wheezes expiratory wheezes Cardio regular rate and regular rhythm GI normal to inspection, nondistended, normoactive bowel sounds Neuro oriented x3 and CN's II-XII intact bilaterally Sensorium / Orientation: awake and alert Psych mental status grossly normal Skin no rashes or lesions noted Heart Score History: Slightly/Non-Suspicious ECG: Normal Age: >45 - <65 years Risk Factors: >/= 3 Risk Factors or History of CAD Troponin: </= Normal Limit Score: 3 MDM MDM MDM Narrative Medical decision making narrative: Patient presenting with symptoms of shortness of breath which have been happening for about a month and now has had a week of chest pain. She reports a history of cardiomyopathy. Review of the medical record shows she has a history of hypertension, DVT, diabetes. HEART score of 3. Patient is short of breath and wheezing on examination but denies a history of COPD or asthma. Was given breathing treatments and Solu-Medrol. Differential includes but is not limited to ACS, pneumonia, pneumothorax, muscle strain, costochondritis, bronchitis, COPD. Unlikely to be a PE because the patient is anticoagulant Eliquis. She is not describing ripping or tearing sensation to suggest dissection. CBC shows no leukocytosis. Hemoglobin hematocrit are stable. Platelets are normal. D-dimer was negative at 0.27. BMP shows normal renal function and electrolytes. Glucose elevated at 153 without anion gap. High-sensitivity troponin is 7 and delta troponin is 5. Chest x-ray on my interpretation is no acute cardiopulmonary process. Radiologist services and agrees. Patient ambulated after breathing treatments were given desats to 84% on room air. At this point was discussed with the hospitalist for admission. Impression: 1. Chest pain 2. Dyspnea 3. Hypoxia Lab Data Labs: Laboratory Results - last 24 hr 09/26/22 09/26/22 09/26/22 07:55 07:55 07:55 WBC 5.8 RBC 4.67 Hgb 14.2 Hct 44.9 MCV 96.1 MCH 30.4 MCHC 31.6 L RDW Std Deviation 44.2 H RDW Coeff of Pato 12.5 Plt Count 202 MPV 10.0 Immature Gran % (Auto) 0.500 Neut % (Auto) 53.3 Lymph % (Auto) 30.2 [place] % (Auto) 10.7 H Eos % (Auto) 5.0 Baso % (Auto) 0.3 Absolute Neuts (auto) 3.1 Absolute Lymphs (auto) 1.75 Nucleated RBC % 0 D-Dimer Quant (PE/DVT) < 0.27 L Sodium 139 Potassium 4.0 Chloride 106 Carbon Dioxide 30.0 Anion Gap 3 L BUN 17 Creatinine 1.00 Estim Creat Clear Calc 57.87 Est GFR (MDRD) Af Amer 74 Est GFR (MDRD) Non-Af 62 BUN/Creatinine Ratio 17.1 Glucose 153 H Calcium 8.5 Troponin I High Sens 7 09/26/22 09/26/22 10:05 11:10 WBC RBC Hgb Hct MCV MCH MCHC RDW Std Deviation RDW Coeff of Pato Plt Count MPV Immature Gran % (Auto) Neut % (Auto) Lymph % (Auto) [place] % (Auto) Eos % (Auto) Baso % (Auto) Absolute Neuts (auto) Absolute Lymphs (auto) Nucleated RBC % D-Dimer Quant (PE/DVT) Sodium Potassium Chloride Carbon Dioxide Anion Gap BUN Creatinine Estim Creat Clear Calc Est GFR (MDRD) Af Amer Est GFR (MDRD) Non-Af BUN/Creatinine Ratio Glucose Calcium Troponin I High Sens Cancelled 5 Radiography Diagnostic Testing: Clinical Impression(s) from Imaging Studies Chest X-Ray 09/26/22 07:38 IMPRESSION: No acute thoracic pathology. Electronically Signed: Yash Hong MD at 8:40 EDT Reading Location ID and State: [facility] / [place] Tel , Service support , Discharge Plan Triage Chief Complaint: Chest Pain ED Provider: Dominic Solis Dx/Rx/DC Orders Primary Care Provider: Paty Catalan
[2022-09-26 08:18] LABS: D-Dimer Quantitative (DVT/PE) < 0.27 FEU/ug/m (0.27-0.49)
[2022-09-26 08:28] LABS: Anion Gap 3 (5-15); BUN 17 mg/dL (7-18); BUN/Creat Ratio 17.1 RATIO (10-20); Calcium,Total 8.5 mg/dL (8.5-10.1); Chloride 106 mmol/L (98-107); EST Glomerular Filtration Rate 62 mL/min (>60); Est Glom Filt Rate - Afr Amer 74 mL/min (>60); Estimated Creatinine Clearance 57.87 ml/min; Glucose 153 mg/dL (74-106); Sodium Level 139 mmol/L (136-145); Troponin-I HS (w/2H Reflex) 7 pg/mL (3.0-54.0)
[2022-09-26] MEDS: Ipratropium/Albuterol Sulfate 3 ML AMPUL.NEB INHALATION ×3 (08:44→20:12)
[2022-09-26] MEDS: Albuterol 2.5 MG/3 ML VIAL.NEB. INHALATION (08:44)
[2022-09-26] MEDS: MethylPREDNISolone 125 MG/2 ML Vial IV (09:14)
[2022-09-26 09:56] LABS: Reflex Troponin-HS? (from REC) Y
[2022-09-26 11:52] LABS: Troponin-I HS 5 pg/mL (3.0-54.0)
--- NOTE | 2022-09-26 12:51 | PCM.HP.STD ---
HPI - General General Date of Admission: 09/26/22 Date of Service: 09/26/22 Chief Complaint: SOB and CP HPI Narrative COOPER NIELSEN, is a 52 F with a history of bipolar disorder, reportedly CHF, BALDEMAR, DVT on Eliquis who presented to [facility] 09/26/2022 with 1 month of waxing waning shortness of breath and 1 week of intermittent pain in her chest. She reports today she specifically came in because she checked her oxygen saturation on room air and was 85%. In the ED she was found to be 86% on room air and was placed on 1.5 L and improved to 93%. Chest x-ray with no acute abnormality. White blood cell count 5.8, D-dimer less than 0.27 BMP overall noncontributory and troponin 7 and subsequent was 5. EKG with normal sinus rhythm QTc 465 and heart rate 94. BP 138/76. Hospitalist consulted for admission. Evaluated at bedside and she reports that over the past month she will intermittently be having waxing waning shortness of breath and also has a dry cough over that period of time. Does not report that she is able to produce any sputum. Additionally this past week she will have episodes where she feels like something sitting on her chest and had them the past couple days though today she reports it is much better than it had been. Denies any exacerbating or relieving factors. Said last week she thought she felt like she had chills though she did not check her temperature. Might of previously had sore throat, possibly ear pain over the past month. Also reported intermittent right-sided abdominal pain over the past several months as well as an episode of blurry vision several days ago. At present time only complaint is shortness of breath and when taken off of O2 she was 87 to 88% on room air. She is concerned that she has fluid on her because this happened to a friend recently but denies any swelling in her legs. [facility] Medical History Bipolar 1 disorder Cardiomyopathy Chest pain CHF (congestive heart failure) Diabetes Dizzy DVT (deep venous thrombosis) Eczema HTN (hypertension) IBS (irritable bowel syndrome) Nausea & vomiting BALDEMAR (obstructive sleep apnea) Palpitation PUD (peptic ulcer disease) Pulmonary embolism Schizophrenia Schizophrenia Stroke/cerebrovascular accident Home Medications apixaban 5 mg tablet 5 mg PO BID blood thinner 07/19/20 [History Last Taken 07/19/20] benztropine 1 mg tablet 1 mg PO BID mood 07/19/20 [History Last Taken 07/19/20] fluoxetine 20 mg capsule 20 mg PO DAILY depression 07/19/20 [History Last Taken 07/19/20] metformin 500 mg tablet,extended release 24 hr 500 mg PO DAILY dm 07/19/20 [History Last Taken 07/19/20] albuterol sulfate 90 mcg/actuation aerosol inhaler (Ventolin HFA) 1 - 2 puff inhalation Q4H PRN PRN Wheezing #1 ea 03/13/22 [Rx Last Taken Unknown] carvedilol 3.125 mg tablet (Coreg) 3.125 mg PO BID 05/11/22 [History Last Taken Unknown] docusate sodium 100 mg capsule (Colace) 100 mg PO BID 05/11/22 [History Last Taken Unknown] fluticasone propionate 50 mcg/actuation nasal spray,suspension (Flonase Allergy Relief) 2 spray intranasal DAILY 05/11/22 [History Last Taken Unknown] dicyclomine 20 mg tablet 20 mg PO TID PRN abdominal pain #15 tabs 09/12/22 [Rx Last Taken Unknown] haloperidol 10 mg tablet 10 mg PO QHS MOOD 09/26/22 [History Last Taken 09/25/22] olanzapine 20 mg disintegrating tablet 20 mg PO QHS MOOD 09/26/22 [History Last Taken 09/25/22] Allergy/AdvReac Type Severity Reaction Status Date / Time No Known Allergies Allergy Verified 09/26/22 07:35 Family History Mother Breast cancer Aunt Breast cancer Surgical History History of esophagogastroduodenoscopy (EGD) S/P cholecystectomy S/P dilation and curettage S/P hysterectomy S/P nasal septoplasty Social History household members: spouse housing: house Smoking Status: Former smoker alcohol intake: former substance use type: does not use ROS ROS Narrative General: Feels like she might of had chills last week HENT: Denies headache, denies stuffy nose, possibly sore throat last week EYES: Chronic changes in vision, possibly an episode where her vision was blurry last week when trying to read something Resp: Cough without sputum production x1 month with waxing waning shortness of breath over that period of time Cardiac: Denies chest pain at this time but has had intermittent crushing feeling in her chest GI: Denies abdominal pain at this time but does get right upper quadrant pain at times, denies changes in bowel, denies nausea/vomiting : Denies changes in urination Extremity: Denies swelling MSK: Did not report any weakness Neuro: Did not remark on any numbness or tingling Heme: Had a bruise from IV stick Skin: Did not note rashes Psychiatric: Has history of bipolar disorder Vital Signs Vital Signs Vital Signs: 09/26/22 07:33 09/26/22 07:39 09/26/22 07:50 Temperature 97.5 F L Temperature Source Temporal Pulse Rate 101 H Respiratory Rate 22 H Respiratory Effort Normal Short of Breath Blood Pressure 138/76 H Blood Pressure Mean 96 Pulse Ox 90 90 Oxygen Delivery Method Room Air Room Air Oxygen Flow Rate (L/min) 09/26/22 08:49 09/26/22 08:49 09/26/22 08:49 Temperature Temperature Source Pulse Rate 84 Respiratory Rate 21 H 21 H Respiratory Effort Normal Blood Pressure Blood Pressure Mean Pulse Ox 98 97 Oxygen Delivery Method Room Air Room Air Oxygen Flow Rate (L/min) 09/26/22 11:28 09/26/22 11:58 Temperature Temperature Source Pulse Rate Respiratory Rate Respiratory Effort Blood Pressure Blood Pressure Mean Pulse Ox 86 93 Oxygen Delivery Method Room Air Nasal Cannula Oxygen Flow Rate (L/min) 1.5 Weight Weight: 126.099 kg Body Mass Index (BMI) 46.2 Physical Exam Narrative General: Alert, oriented, no apparent distress HEENT: Atraumatic, normocephalic Eyes: Anicteric, normal conjunctiva, extraocular movements grossly intact Neck: Supple Respiratory: Breath sounds somewhat diminished though largely due to body habitus, slight increased work of breathing Cardiovascular: Regular rate and rhythm GI: Soft, nontender, nondistended Extremities: No edema Musculoskeletal: Moving all extremities Neuro: No overt focal neurological deficits Skin: No rashes appreciated Psych: Cooperative Results Lab / Micro Data Result Diagrams: 09/26/22 07:55 09/26/22 07:55 Labs: Laboratory Results - last 24 hr 09/26/22 07:55: WBC 5.8, RBC 4.67, Hgb 14.2, Hct 44.9, MCV 96.1, MCH 30.4, MCHC 31.6 L, RDW Std Deviation 44.2 H, RDW Coeff of Pato 12.5, Plt Count 202, MPV 10.0, Immature Gran % (Auto) 0.500, Neut % (Auto) 53.3, Lymph % (Auto) 30.2, [place] % (Auto) 10.7 H, Eos % (Auto) 5.0, Baso % (Auto) 0.3, Absolute Neuts (auto) 3.1, Absolute Lymphs (auto) 1.75, Nucleated RBC % 0 09/26/22 07:55: D-Dimer Quant (PE/DVT) < 0.27 L 09/26/22 07:55: Sodium 139, Potassium 4.0, Chloride 106, Carbon Dioxide 30.0, Anion Gap 3 L, BUN 17, Creatinine 1.00, Estim Creat Clear Calc 57.87, Est GFR (MDRD) Af Amer 74, Est GFR (MDRD) Non-Af 62, BUN/Creatinine Ratio 17.1, Glucose 153 H, Calcium 8.5, Troponin I High Sens 7 09/26/22 10:05: Troponin I High Sens Cancelled 09/26/22 11:10: Troponin I High Sens 5 Radiology Impression Chest X-Ray 09/26/22 07:38 IMPRESSION: No acute thoracic pathology. Electronically Signed: Yash Hong MD at 8:40 EDT , Assessment & Plan Assessment/Plan (1) Hypoxia: PLAN: Plan #Hypoxia of unclear cause with shortness of breath -Has listed history of CHF and BALDEMAR but patient poor historian and unclear history or timeline but this could be secondary to her heart failure -Additionally has history of smoking, cannot rule out underlying COPD -Given obesity and reported history of BALDEMAR could also have pulmonary hypertension and is possible that she has obesity hypoventilation syndrome -Less likely PE given she is on Eliquis -Admit to PCU, will obtain echo and also obtain Noncon CT of the chest for further characterization -On 1.5 L O2 with good response, will wean as tolerated -Check BNP, will also order ABG to assess for any component of hypercapnia -Incentive spirometer -Daily weights, I's and O's -BiPAP nightly We will continue nebs and as needed albuterol -Was not wheezing on exam but was given IV steroids in the ED, will continue p.o. prednisone -Has the waxing waning shortness of breath and a chronic cough that is not productive, low suspicion for pneumonia but cannot rule this out at this time, will obtain Noncon CT for better evaluation -COVID swab pending -We will obtain respiratory panel and if patient able to produce sputum will obtain as well -We will also order Mucinex #Chest pain -EKG normal sinus rhythm, 94 bpm, QTc 465 -Reports pain was heavy in the center of her chest but had no exacerbating or relieving factors and not having at this time -Troponin within normal limits -Does have heart score of 3 but presently hypoxia his presenting complaint -Reports stress test a year ago through [facility] which she endorsed was normal -Very low suspicion for ACS -We will obtain echocardiogram and if abnormal may need cardiology consult -Depending if her symptoms recur can consider stress test inpatient versus outpatient if she improves from a respiratory standpoint -Continue carvedilol -We will monitor on telemetry -Last echo obtained was back in 2016 and showed EF of 55% and no other abnormalities noted even though was a technically difficult study -Did have a stress test in November 2020 at our institution which was normal #History of DVT -Continue carvedilol and apixaban #Bipolar disorder -Reports she is on Haldol and not Zyprexa -We will continue Haldol and other home psychiatric medications #Morbid obesity -BMI 46.3 kg/m? -Complicates treatment, prognosis, outcomes -Recommend weight loss and lifestyle changes #DVT ppx: On Eliquis Adilene Frey MD Time spent in the patient's overall evaluation,decision-making process, review of diagnostic data, adjustment of management, discussion with other providers, nursing nursing and ancillary staff involved in patient's care documentation, 60 minutes Charges/Coding Visit Charges Inpatient E&M: 89895 Init Hosp L2
--- NOTE | 2022-09-26 13:01 | ECHOCS_ITS ---
Reason For Study: chest pain Procedure This was a 2D Doppler, Color Flow transthoracic echocardiogram. The study was technically difficult. Due to body habitus. Contrast injection was performed. Exam performed portable in patient room. Left Ventricle Normal LV size. The estimated ejection fraction is 55 %. No evidence for diastolic dysfunction. No regional wall motion abnormalities noted. Right Ventricle Normal RV size. Normal systolic function. Atria Normal left atrium. Normal right atrium. No doppler evidence for ASD. Mitral Valve There is no mitral valve stenosis. No mitral valve insufficiency. Tricuspid Valve There is no tricuspid stenosis. Unable to estimate RV systolic pressure due to inadequate jet, pulmonary artery pressure probably normal. Aortic Valve Trisinus/trileaflet aortic valve. There is no aortic stenosis. No aortic valve insufficiency. Pulmonic Valve There is no pulmonic valvular stenosis. No pulmonic valve insufficiency. Great Vessels Normal aortic root. Pericardium/Pleural No pericardial effusion. Medication Diluted definity 4.0ml given slow IV push to enhance endocardial definition. MMode/2D Measurements & Calculations LVIDd: 4.9 cm IVSd: 0.93 cm LAV(MOD-bp): 49.3 ml LVIDs: 3.4 cm LVPWd: 1.1 cm RVDd: 3.0 cm FS: 29.1 % LAV(MOD-bp) Indexed: 21.7 ml/m2 LAV(MOD-sp2): 47.9 ml LAV(MOD-sp4): 47.9 ml EDV(MOD-sp4): 69.4 ml EDV(MOD-sp2): 53.9 ml SV(MOD-sp4): 38.4 ml ESV(MOD-sp4): 31.0 ml ESV(MOD-sp2): 25.6 ml EF(MOD-sp4): 55.4 % EF(MOD-sp2): 52.4 % SV(MOD-sp2): 28.2 ml LA dimension(2D): 4.1 cm LA A4 area: 17.4 cm2 RA A4 area: 12.2 cm2 Time Measurements MV dec time: 0.19 sec Doppler Measurements & Calculations MV E max guanaco: 70.8 cm/sec Lat Peak E' [place]an[place]: 7.7 cm/sec Med Peak E' [place]an[place]: 10.9 cm/sec MV A max guanaco: 78.5 cm/sec E/E' lat: 9.2 E/E' med: 6.5 MV E/A: 0.90 Ao V2 max: 129.6 cm/sec LV V1 max: 111.3 cm/sec MV dec slope: 376.1 cm/sec2 Ao max P.7 mmHg LV V1 max P.0 mmHg Ao V2 mean: 89.8 cm/sec LV V1 mean P.7 mmHg Ao mean P.7 mmHg LV V1 mean: 78.0 cm/sec Ao V2 VTI: 28.5 cm LV V1 VTI: 22.8 cm AV (velocity ratio): 0.80 PA V2 max: 84.9 cm/sec TR max guanaco: 229.1 cm/sec TR max P.0 mmHg ECHO/Echo Complete W/ Contrast Interpretation Summary The estimated ejection fraction is 55 %. No evidence for diastolic dysfunction. Ordering Physician: Adilene Frey Referring Physician: Paty Catalan Performed By: Sylvia Lamb RDCS, RVT
--- NOTE | 2022-09-26 13:01 | CT_ITS ---
INDICATION: hypoxia EXAMINATION: CT CHEST WITHOUT CONTRAST - CT Chest W/O Contrast Injection TECHNIQUE: Helically acquired images were obtained of the chest. A radiation dose optimization technique was used for this scan. Sagittal coronal reformatted images are performed. IV Contrast dosage and agent: None. COMPARISON: CT chest without contrast Sep 01, 2022 FINDINGS: LUNGS, PLEURA AND LARGE AIRWAYS: No masses, consolidation, or edema. No pleural effusion or thickening. No pneumothorax. There is a punctate calcification in the right lung base suggesting prior inflammation. THYROID: No thyroid lesions. HEART AND PERICARDIUM: Heart size is normal. No pericardial effusion. CORONARY ARTERIES: Coronary artery calcification is not seen. There is a visualized venous varix in the midline aspect of the chest. There is a visualized suggestion of a collateral accessory vessel extending from the superior vena cava. There is a persistent mild narrowed appearance of the brachiocephalic vein. VESSELS: Thoracic aorta is not dilated. MEDIASTINUM AND RUFUS: No mediastinal or hilar adenopathy. Esophagus is unremarkable. Is a small hiatal hernia. UPPER ABDOMEN: No acute pathology. BONES: There is mild degenerative change of the thoracic spine. CT/Chest without Contrast IMPRESSION: No visualized focal infiltrate. Could consider a follow-up study CT angiogram of the chest if appropriate. Stable chest. Electronically Signed: Lotus Dover MD at 19:32 EDT Reading Location ID and State: [facility] / [place] Tel , Service support ,
[2022-09-26 13:52] LABS: BNP,B-Type NATRIURETIC PEPTIDE 13.6 pg/mL (0-100)
[2022-09-26 15:56] LABS: Base Excess 4 mmol/L (-2 to +2); Bicarbonate 28.8 mmol/L (22-26); Blood Gas Specimen Type ART; O2 Delivery Device Cannula; PO2 68 mmHG (75-100); SITE R Radial; SO2 93 % (95-99); Total Carbon Dioxide 30 mmol/L; pCO2 48.5 mmHg (35-45); pH 7.38 (7.35-7.45)
[2022-09-26] MEDS: Acetaminophen 325 MG Tablet 650 MG PO (18:58)
[2022-09-26] MEDS: Haloperidol 5 MG Tablet 10 MG PO (20:47)
[2022-09-26] MEDS: guaiFENesin 1,200 MG Tablet 1200 MG PO (20:47)
[2022-09-26] MEDS: Benztropine Mesylate 0.5 MG TABLET 1 MG PO (20:47)
[2022-09-26] MEDS: Docusate Sodium 100 MG Capsule PO (20:47)
[2022-09-26] MEDS: APIXABAN 5 MG TABLET PO (20:47)
[2022-09-26] MEDS: Topiramate 50 MG Tablet PO (20:48)
[2022-09-26] MEDS: Carvedilol 3.125 MG TABLET PO (20:48)
[2022-09-26] MEDS: MELATONIN 3 MG TABLET PO (20:52)
[2022-09-27] VITALS (8 sets, daily range): BP systolic 104–133; BP diastolic 63–92; PULSE 79–88; RESP 16–20; TEMP 35.7–37; O2SAT 86–99; BMI 49.1
[2022-09-27] MEDS: Ipratropium/Albuterol Sulfate 3 ML AMPUL.NEB INHALATION ×4 (00:59→20:30)
[2022-09-27 07:38] LABS: Absolute Lymphocyte Count 1.27 X10^3/uL (0.83-4.51); Basophil# 0.01 X10^3/uL; Basophil% 0.1 % (0-1); Hematocrit 41.7 % (37-47); Hemoglobin 13.3 g/dL (12.0-15.0); Lymphocyte # 1.27 X10^3/ul (0.83-4.51); Lymphocyte % 11.5 % (19-41); Mean Corp Hgb Conc 31.9 g/dL (32-36); Mean Corpuscular Hgb 30.2 pg (27.0-32.0); Mean Corpuscular Volume 94.8 fL (81-99); Mean Platelet Vol. 10.2 fl (6.2-12.0); Monocyte# 0.65 X10^3/uL; Monocyte% 5.9 % (0-10); NRBC Flagged by Analyzer 0 % (0-5); Neutrophil # 9.03 X10^3/uL (2.7-7.7); Neutrophil % 82.1 % (47-70); Platelet Count 207 K/mm3 (150-450); RBC Distribution Width CV 12.3 % (11.6-14.6); RBC Distribution Width SD 43.4 fl (35.1-43.9)
[2022-09-27 08:06] LABS: ALB/GLOB Ratio 0.8 RATIO (0.9-2.4); AST(SGOT) 23 U/L (15-37); Alanine Aminotransfer ALT/SGPT 42 U/L (13-56); Albumin, Serum 2.8 g/dL (3.2-5.0); Alkaline Phosphatase 65 U/L (45-117); Anion Gap 4 (5-15); BUN 16 mg/dL (7-18); BUN/Creat Ratio 18.2 RATIO (10-20); Calcium,Total 8.4 mg/dL (8.5-10.1); Chloride 107 mmol/L (98-107); Creatinine, Serum 0.88 mg/dL (0.55-1.02); EST Glomerular Filtration Rate 71 mL/min (>60); Est Glom Filt Rate - Afr Amer 86 mL/min (>60); Estimated Creatinine Clearance 63.11 ml/min; Globulin 3.6 g/dL (2.2-4.2); Glucose 165 mg/dL (74-106); Protein, Total 6.4 g/dL (6.4-8.2); Sodium Level 137 mmol/L (136-145); Thyroid Stim Hormone (TSH) 0.76 uIU/mL (0.358-3.74)
[2022-09-27] MEDS: guaiFENesin 1,200 MG Tablet 1200 MG PO ×2 (09:53→21:31)
[2022-09-27] MEDS: Fluticasone 0.05% 1 SPRAY NASAL.SRY 2 SPRAY NASAL (09:53)
[2022-09-27] MEDS: FLUoxetine 20 MG Capsule PO (09:53)
[2022-09-27] MEDS: predniSONE 20 MG Tablet 40 MG PO (09:54)
[2022-09-27] MEDS: Benztropine Mesylate 0.5 MG TABLET 1 MG PO ×2 (09:54→21:30)
[2022-09-27] MEDS: Docusate Sodium 100 MG Capsule PO ×2 (09:54→21:30)
[2022-09-27] MEDS: APIXABAN 5 MG TABLET PO ×2 (09:54→21:30)
[2022-09-27] MEDS: Carvedilol 3.125 MG TABLET PO ×2 (09:54→21:33)
--- NOTE | 2022-09-27 10:01 | PCM.PN.HOSP ---
Reason for Visit Reason for Visit: Diagnoses Hypoxemia (09/26/22) Subjective Subjective Think she may be feeling somewhat better today but she is unsure yet Objective Data Objective Data Vital Signs: Vital Signs Temp Pulse Resp BP Pulse Ox O2 Del Method O2 Flow Rate 96.3 F L 87 20 H 128/92 H 95 Room Air 3 09/27/22 09:42 09/27/22 09:42 09/27/22 09:42 09/27/22 09:42 09/27/22 09:42 09/27/22 09:42 09/27/22 09:13 Oxygen Flow Rate (L/min) 3 Oxygen Delivery Method Room Air Weight: 130 kg Body Mass Index (BMI) 49.1 Intake & Output: Intake and Output for Last 24 Hours 09/25/22 09/26/22 09/27/22 23:59 23:59 23:59 Intake Total 400 / 400 Balance 400 / 400 Lab / Micro Data Result Diagrams: 09/27/22 06:45 09/27/22 06:41 Labs: Laboratory Results - last 24 hr 09/26/22 07:55: B-Natriuretic Peptide 13.6 09/26/22 10:05: Troponin I High Sens Cancelled 09/26/22 11:10: Troponin I High Sens 5 09/27/22 06:41: Sodium 137, Potassium 4.0, Chloride 107, Carbon Dioxide 26.0, Anion Gap 4 L, BUN 16, Creatinine 0.88, Estim Creat Clear Calc 63.11, Est GFR (MDRD) Af Amer 86, Est GFR (MDRD) Non-Af 71, BUN/Creatinine Ratio 18.2, Glucose 165 H, Calcium 8.4 L, Total Bilirubin 0.60, AST 23, ALT 42, Alkaline Phosphatase 65, Total Protein 6.4, Albumin 2.8 L, Globulin 3.6, Albumin/Globulin Ratio 0.8 L, TSH 0.76 09/27/22 06:45: WBC 11.0, RBC 4.40, Hgb 13.3, Hct 41.7, MCV 94.8, MCH 30.2, MCHC 31.9 L, RDW Std Deviation 43.4, RDW Coeff of Pato 12.3, Plt Count 207, MPV 10.2, Immature Gran % (Auto) 0.400, Neut % (Auto) 82.1 H, Lymph % (Auto) 11.5 L, [place] % (Auto) 5.9, Eos % (Auto) 0.0, Baso % (Auto) 0.1, Absolute Neuts (auto) 9.0 H, Absolute Lymphs (auto) 1.27, Nucleated RBC % 0 Micro: Microbiology 09/26/22 16:32 Mucosa - Nose Respiratory Panel (PCR) - Final 09/26/22 12:15 Nasal Secretion SARS-CoV-2 & FLU Antigen (Rapid) - Final ABG Data ABG results: ABG 09/26/22 15:48 Specimen Type ART Sample Site R Radial pH 7.38 Bicarbonate Actual 28.8 H Total CO2 30 Base Excess 4 H O2 Saturation 93 L ABG pCO2 48.5 H ABG pO2 68 L Rolo Test N/A O2 Delivery Device Cannula Liter Flow 3.0 Radiography Diagnostic Testing: Radiology Impression Chest CT 09/26/22 13:01 IMPRESSION: No visualized focal infiltrate. Could consider a follow-up study CT angiogram of the chest if appropriate. Stable chest. Electronically Signed: Lotus Dover MD at 19:32 EDT , Physical Exam Narrative General: Alert, oriented, no apparent distress HEENT: Atraumatic, normocephalic Eyes: Anicteric, normal conjunctiva, extraocular movements grossly intact Neck: Supple Respiratory: Breath sounds somewhat diminished though largely due to body habitus, no wheezes, work of breathing improved Cardiovascular: Regular rate and rhythm GI: Soft, nontender, nondistended Extremities: No edema Musculoskeletal: Moving all extremities Neuro: No overt focal neurological deficits Skin: No rashes appreciated Psych: Cooperative Assessment & Plan Assessment/Plan (1) Hypoxia: PLAN: Plan #Hypoxia of unclear cause with shortness of breath -Has listed history of CHF and BALDEMAR but patient poor historian and unclear history or timeline but this could be secondary to her heart failure -Additionally has history of smoking, cannot rule out underlying COPD -Given obesity and reported history of BALDEMAR could also have pulmonary hypertension and is possible that she has obesity hypoventilation syndrome -Less likely PE given she is on Eliquis -Admit to PCU, will obtain echo and also obtain Noncon CT of the chest for further characterization -On 1.5 L O2 with good response, will wean as tolerated -Check BNP, will also order ABG to assess for any component of hypercapnia -Incentive spirometer -Daily weights, I's and O's -BiPAP nightly We will continue nebs and as needed albuterol -Was not wheezing on exam but was given IV steroids in the ED, will continue p.o. prednisone -Has the waxing waning shortness of breath and a chronic cough that is not productive, low suspicion for pneumonia but cannot rule this out at this time, will obtain Noncon CT for better evaluation -COVID swab pending -We will obtain respiratory panel and if patient able to produce sputum will obtain as well -We will also order Mucinex -09/27: Chest CT with no infiltrates or effusions. No acute process. Respiratory panel and COVID-negative. Does seem slightly better today, is on DuoNebs and prednisone query if there could be an underlying COPD or asthma that is undiagnosed. Awaiting echocardiogram as there may be component of pulmonary hypertension which would help explain otherwise very likely benign imaging and labs and lack of wheezing. She did become hypoxic again on ambulation down to 86%. She is also having some general weakness and was actually recommended for rehab/SNF/TCU by physical therapy which she is going to consider depending on how she feels tomorrow. Will likely need sleep study as an outpatient and to establish with pulmonology if not already established #Chest pain -EKG normal sinus rhythm, 94 bpm, QTc 465 -Reports pain was heavy in the center of her chest but had no exacerbating or relieving factors and not having at this time -Troponin within normal limits -Does have heart score of 3 but presently hypoxia his presenting complaint -Reports stress test a year ago through [place] which she endorsed was normal -Very low suspicion for ACS -We will obtain echocardiogram and if abnormal may need cardiology consult -Depending if her symptoms recur can consider stress test inpatient versus outpatient if she improves from a respiratory standpoint -Continue carvedilol -We will monitor on telemetry -Last echo obtained was back in 2016 and showed EF of 55% and no other abnormalities noted even though was a technically difficult study -Did have a stress test in November 2020 at our institution which was normal -09/27: Did not complain of chest pain this a.m. on evaluation, awaiting echocardiogram #History of DVT -Continue carvedilol and apixaban #Bipolar disorder -Reports she is on Haldol and not Zyprexa -We will continue Haldol and other home psychiatric medications #Morbid obesity -BMI 46.3 kg/m? -Complicates treatment, prognosis, outcomes -Recommend weight loss and lifestyle changes #DVT ppx: On Eliquis Adilene Frey MD Time spent in the patient's overall evaluation,decision-making process, review of diagnostic data, adjustment of management, discussion with other providers, nursing nursing and ancillary staff involved in patient's care documentation, 30 minutes Charges/Coding Visit Charges Inpatient E&M: 25080 Subs Hosp L2
--- NOTE | 2022-09-27 12:20 | CPS ---
pt taking a nap and refused to do the incentive.
[2022-09-27] MEDS: Topiramate 50 MG Tablet PO (21:31)
[2022-09-27] MEDS: Haloperidol 5 MG Tablet 10 MG PO (21:31)
[2022-09-28] VITALS (8 sets, daily range): BP systolic 102–129; BP diastolic 61–84; PULSE 59–90; RESP 14–20; TEMP 36.2–36.9; O2SAT 90–96; BMI 49.1
[2022-09-28] MEDS: Ipratropium/Albuterol Sulfate 3 ML AMPUL.NEB INHALATION ×4 (01:56→21:02)
[2022-09-28 06:14] LABS: Absolute Lymphocyte Count 1.89 X10^3/uL (0.83-4.51); Absolute Neutrophil Count 6.8 X10^3/uL (2.0-7.7); Basophil# 0.02 X10^3/uL; Basophil% 0.2 % (0-1); Eosinophil# 0.05 X10^3/uL; Eosinophils% 0.5 % (0-5); Hematocrit 42.5 % (37-47); Hemoglobin 13.6 g/dL (12.0-15.0); Lymphocyte # 1.89 X10^3/ul (0.83-4.51); Mean Corpuscular Hgb 30.6 pg (27.0-32.0); Mean Corpuscular Volume 95.7 fL (81-99); Mean Platelet Vol. 10.1 fl (6.2-12.0); Monocyte# 0.66 X10^3/uL; NRBC Flagged by Analyzer 0 % (0-5); Neutrophil % 71.8 % (47-70); Platelet Count 211 K/mm3 (150-450); RBC Distribution Width CV 12.3 % (11.6-14.6); RBC Distribution Width SD 43.6 fl (35.1-43.9); Red Blood Count 4.44 M/mm3 (4.2-5.4); White Blood Count 9.5 K/mm3 (4.4-11.0)
[2022-09-28 06:41] LABS: ALB/GLOB Ratio 0.8 RATIO (0.9-2.4); AST(SGOT) 23 U/L (15-37); Alanine Aminotransfer ALT/SGPT 36 U/L (13-56); Alkaline Phosphatase 68 U/L (45-117); Anion Gap 3 (5-15); BUN 21 mg/dL (7-18); BUN/Creat Ratio 23.8 RATIO (10-20); Calcium,Total 8.5 mg/dL (8.5-10.1); Chloride 106 mmol/L (98-107); Creatinine, Serum 0.88 mg/dL (0.55-1.02); EST Glomerular Filtration Rate 71 mL/min (>60); Est Glom Filt Rate - Afr Amer 86 mL/min (>60); Estimated Creatinine Clearance 63.11 ml/min; Globulin 3.6 g/dL (2.2-4.2); Glucose 117 mg/dL (74-106); Potassium 3.7 mmol/L (3.5-5.1); Protein, Total 6.6 g/dL (6.4-8.2); Sodium Level 138 mmol/L (136-145)
[2022-09-28] MEDS: predniSONE 20 MG Tablet 40 MG PO (08:53)
[2022-09-28] MEDS: Docusate Sodium 100 MG Capsule PO ×2 (08:53→21:49)
[2022-09-28] MEDS: Carvedilol 3.125 MG TABLET PO ×2 (08:53→21:49)
[2022-09-28] MEDS: APIXABAN 5 MG TABLET PO ×2 (08:53→21:49)
[2022-09-28] MEDS: Benztropine Mesylate 0.5 MG TABLET 1 MG PO ×2 (08:53→21:49)
[2022-09-28] MEDS: FLUoxetine 20 MG Capsule PO (08:53)
[2022-09-28] MEDS: Fluticasone 0.05% 1 SPRAY NASAL.SRY 2 SPRAY NASAL (08:54)
[2022-09-28] MEDS: guaiFENesin 1,200 MG Tablet 1200 MG PO ×2 (08:54→21:49)
--- NOTE | 2022-09-28 10:05 | CASEMGMT ---
RN CM Face to Face with patient for initial transition planning/care coordination assessment. RN CM introduced self and role at [facility]. Patient lying in bed, alert and oriented. Patient willing to participate in assessment and is able to answer all questions appropriately. Care providers, pharmacy, and demographics verified. Patient wishes to discharge home, denies need for home health at this time. Patient states she has no further needs or concerns at this time. CM to follow for discharge planning needs that may arise. PCP: Alayna Specialists: Josephine, personnel director; Amaury, psychologist Preferred Pharmacy: [facility] Insurance: [employer], [facility] Prescription Benefit: yes Living Will/HPOA: none LNOK: hsuband, mother Living Arrangements: Patient lives with in a single story home with 2-3 steps to enter the home. Patient is independent at home. Transportation: DME/HHC: Patient has bipap and pulse ox, glucometer with supplies. No previous HHC or SNF Disposition Plan: patient to discharge home with family support and follow-up plans in place. Shivani VACA, RN, CM
--- NOTE | 2022-09-28 14:13 | PN_ITS ---
Subjective Subjective Patient seen and examined. She is coughing. She said her shortness of breath had improved. She denies any chest pain or palpitations, dizziness, nausea or vomiting. Review of systems otherwise negative. She has remained hemodynamically stable. Objective Data Objective Data Vital Signs: Vital Signs Temp Pulse Resp BP Pulse Ox O2 Del Method O2 Flow Rate 97.9 F 90 18 110/84 H 94 Nasal Cannula 2 09/28/22 08:20 09/28/22 08:20 09/28/22 08:20 09/28/22 08:20 09/28/22 08:20 09/28/22 08:56 09/28/22 08:56 Oxygen Flow Rate (L/min) [ 2 AMBULATING with Oxygen #2] Oxygen Flow Rate (L/min) [ 1 AMBULATING with Oxygen #1] Oxygen Flow Rate (L/min) 2 Oxygen Delivery Method Nasal Cannula Weight: 286 lb 9.615 oz Body Mass Index (BMI) 49.1 Intake & Output: Intake and Output for Last 24 Hours 09/26/22 09/27/22 09/28/22 23:59 23:59 23:59 Intake Total 400 / 400 1300 / 1300 200 / 200 Balance 400 / 400 1300 / 1300 200 / 200 Lab / Micro Data Result Diagrams: 09/28/22 04:53 09/28/22 04:53 Labs: Laboratory Results - last 24 hr 09/28/22 04:53: WBC 9.5, RBC 4.44, Hgb 13.6, Hct 42.5, MCV 95.7, MCH 30.6, MCHC 32.0, RDW Std Deviation 43.6, RDW Coeff of Pato 12.3, Plt Count 211, MPV 10.1, Immature Gran % (Auto) 0.500, Neut % (Auto) 71.8 H, Lymph % (Auto) 20.0, [place] % (Auto) 7.0, Eos % (Auto) 0.5, Baso % (Auto) 0.2, Absolute Neuts (auto) 6.8, Absolute Lymphs (auto) 1.89, Nucleated RBC % 0 09/28/22 04:53: Sodium 138, Potassium 3.7, Chloride 106, Carbon Dioxide 29.0, Anion Gap 3 L, BUN 21 H, Creatinine 0.88, Estim Creat Clear Calc 63.11, Est GFR (MDRD) Af Amer 86, Est GFR (MDRD) Non-Af 71, BUN/Creatinine Ratio 23.8 H, Glucose 117 H, Calcium 8.5, Total Bilirubin 0.40, AST 23, ALT 36, Alkaline Phosphatase 68, Total Protein 6.6, Albumin 3.0 L, Globulin 3.6, Albumin/Globulin Ratio 0.8 L Micro: Microbiology 09/26/22 16:32 Mucosa - Nose Respiratory Panel (PCR) - Final 09/26/22 12:15 Nasal Secretion SARS-CoV-2 & FLU Antigen (Rapid) - Final Physical Exam Const alert, oriented x3 and no apparent distress Constitutional Narrative: Soon for morbid obesity. HEENT normocephalic, head/scalp atraumatic and moist oral mucous membranes Eyes PERRL and EOMs intact bilaterally Neck supple and no JVD Lymph Lymphatic: no lymphadenopathy noted Resp Resp Narrative: diminished breath sounds bibasally, no wheezes or crackles. On 2L of oxygen Cardio regular rate, regular rhythm, S1 normal heart sound, S2 normal heart sound and no murmurs GI normal to inspection, nondistended, normoactive bowel sounds, soft to palpation and non-tender Extremity normal capillary refill, no clubbing, cyanosis or edema and no calf tenderness Skin General Skin Exam: no breakdown Neuro CN's II-XII intact bilaterally and no focal motor deficits Psych thought process normal and cooperative Appearance: appropriate Assessment & Plan Assessment/Plan (1) Hypoxia: PLAN: Plan #Hypoxia * etiology not clear * concern is for obesity hypoventilation synrome, as well as pulmonary hypertension and * already on eliquis * hypoxia is improving and she feels better * titrate oxygen to maintain sats >90% * breathing treatment with bronchodilators * titrate oxygen to maintain sats >90% * 2D echo ordered and read is pending * On breathing treatments of bronchodilators as well as prednisone. * 2D echo ordered and pending * Will need sleep study on outpatient basis. #Chest pain: This resolved. She states she had a stress test a year ago which was normal. Troponins were not elevated. 2D echo ordered and pending. #History of DVT: On Eliquis #Super morbid obesity: BMI is 46.3. Complicates acute treatment, expected outcome and prognosis. DVT prophylaxis: Eliquis # Charges/Coding Visit Charges Inpatient E&M: 46903 Subs Hosp L2
--- NOTE | 2022-09-28 14:41 | CHAPLAIN ---
Type of Pastoral Visit _x__ Initial Visit ___ Follow-up Visit ___ On-call Visit ___ General Patient Visit ___ Spiritual Assessment ___ Family Conference ___ Bereavement ___ Rapid Response ___ Code Blue ___ Other (describe below) Pastoral Care Referral From _x__ Patient ___ Family ___ Nurse ___ Physician ___ Pasteurizing Supervisor ___ Dump Grounds Checker ___ Other (describe below) Sacrament/Intervention _x__ Active listening ___ Anointing ___ Pentecostal ___ Bereavement ___ Communion ___ Emerita exploration ___ ___ Life review _x__ Prayer ___ Reconciliation ___ Sacrament of Sick ___ Supportive presence ___ Wedding ___ Other (describe below) Pastoral Comments patient reports on her health concerns and her mu-ism connections; pt would like a prayer to be said for her health; no other needs
[2022-09-28] MEDS: Haloperidol 5 MG Tablet 10 MG PO (21:49)
[2022-09-28] MEDS: Topiramate 50 MG Tablet PO (21:49)
[2022-09-28] MEDS: MELATONIN 3 MG TABLET PO (21:51)
[2022-09-29 04:09] VITALS: BP 103/69; PULSE 70; RESP 18; TEMP 36.9; O2SAT 96
[2022-09-29 04:42] VITALS: BMI 49.1
[2022-09-29 06:19] LABS: Absolute Lymphocyte Count 1.94 X10^3/uL (0.83-4.51); Absolute Neutrophil Count 5.9 X10^3/uL (2.0-7.7); Basophil# 0.02 X10^3/uL; Basophil% 0.2 % (0-1); Eosinophil# 0.05 X10^3/uL; Eosinophils% 0.6 % (0-5); Hematocrit 47.5 % (37-47); Hemoglobin 14.8 g/dL (12.0-15.0); Lymphocyte # 1.94 X10^3/ul (0.83-4.51); Lymphocyte % 22.6 % (19-41); Mean Corp Hgb Conc 31.2 g/dL (32-36); Mean Corpuscular Hgb 30.3 pg (27.0-32.0); Mean Corpuscular Volume 97.3 fL (81-99); Mean Platelet Vol. 10.3 fl (6.2-12.0); Monocyte# 0.57 X10^3/uL; Monocyte% 6.7 % (0-10); NRBC Flagged by Analyzer 0 % (0-5); Neutrophil # 5.94 X10^3/uL (2.7-7.7); Neutrophil % 69.3 % (47-70); Platelet Count 217 K/mm3 (150-450); RBC Distribution Width CV 12.5 % (11.6-14.6); RBC Distribution Width SD 44.5 fl (35.1-43.9); Red Blood Count 4.88 M/mm3 (4.2-5.4); White Blood Count 8.6 K/mm3 (4.4-11.0)
[2022-09-29 07:18] LABS: ALB/GLOB Ratio 0.8 RATIO (0.9-2.4); AST(SGOT) 33 U/L (15-37); Alanine Aminotransfer ALT/SGPT 44 U/L (13-56); Alkaline Phosphatase 77 U/L (45-117); Anion Gap 5 (5-15); BUN 19 mg/dL (7-18); BUN/Creat Ratio 21.7 RATIO (10-20); Calcium,Total 8.7 mg/dL (8.5-10.1); Chloride 108 mmol/L (98-107); Creatinine, Serum 0.87 mg/dL (0.55-1.02); EST Glomerular Filtration Rate 72 mL/min (>60); Est Glom Filt Rate - Afr Amer 87 mL/min (>60); Estimated Creatinine Clearance 63.83 ml/min; Glucose 90 mg/dL (74-106); Potassium 4.3 mmol/L (3.5-5.1); Sodium Level 136 mmol/L (136-145)
[2022-09-29 07:46] VITALS: PULSE 89; RESP 20; O2SAT 93
[2022-09-29] MEDS: Ipratropium/Albuterol Sulfate 3 ML AMPUL.NEB INHALATION ×2 (07:46→13:03)
[2022-09-29 08:03] VITALS: O2SAT 93
[2022-09-29] MEDS: Benztropine Mesylate 0.5 MG TABLET 1 MG PO (09:29)
[2022-09-29] MEDS: Carvedilol 3.125 MG TABLET PO (09:29)
[2022-09-29] MEDS: guaiFENesin 1,200 MG Tablet 1200 MG PO (09:29)
[2022-09-29] MEDS: Fluticasone 0.05% 1 SPRAY NASAL.SRY 2 SPRAY NASAL (09:29)
[2022-09-29] MEDS: predniSONE 20 MG Tablet 40 MG PO (09:29)
[2022-09-29] MEDS: APIXABAN 5 MG TABLET PO (09:30)
[2022-09-29] MEDS: FLUoxetine 20 MG Capsule PO (09:30)
[2022-09-29] MEDS: Docusate Sodium 100 MG Capsule PO (09:38)
[2022-09-29 10:00] VITALS: BP 103/67; PULSE 77; RESP 18; TEMP 36.6; O2SAT 95
--- NOTE | 2022-09-29 12:46 | DCINST_ITS ---
Discharge Instructions Diet Discharge Diet: Low fat / Low cholesterol Activity Discharge Activity: Return to Normal Activity Weight Bearing Status: Weight bearing as tolerated Dressing / Incision Call your doctor if you observe: Fever of 101 or Higher, Shortness of breath, Dizziness, Fainting spells, Swelling in the ankles, Chest pain and Increased palpitations (irregular heartbeat) Follow Up Care Test Results: Test results from this visit will be discussed in further detail at your follow- up appointment, if applicable. Discharge Plan Admission Admit Date/Time: 09/26/22 12:51 Primary Reason for Your Visit: shortness of breath Attending Provider: Ania Bauer Primary Care Provider: Paty Catalan Consulting Providers: Adilene Frey Discharge Orders/Prescriptions Prescriptions: New prednisone 20 mg Tablet 40 mg PO BREAKFAST Qty: 10 0RF Continued carvedilol [Coreg] 3.125 mg tablet 3.125 mg PO BID Rx Instructions: must administer with a meal/food apixaban 5 MG tablet 5 mg PO BID benztropine 1 MG tablet 1 mg PO BID fluoxetine 20 MG capsule 20 mg PO DAILY metformin 500 MG tablet extended release 24 hr 500 mg PO DAILY olanzapine 20 mg tablet,disintegrating 20 mg PO QHS haloperidol 10 mg tablet 10 mg PO QHS Referrals / Follow Up: Paty Catalan DO [Primary Care Provider] - 10/06/22 2:30 pm Norman Burton MD [Med Staff - Active Staff] - Within 2 Weeks Disposition Disposition (needs filled in before D/C Order can be placed): Home, Self Care
--- NOTE | 2022-09-29 12:47 | DS.PCM_ITS ---
Providers Date of Admission: 09/26/22 Date of Discharge: 09/29/22 Primary Care Physician: Dr. Paty Catalan, DO Reason For Visit: HYPOXIA, CHEST PAIN Diagnosis Discharge Diagnosis (1) Hypoxia: Status: Acute Code(s): R09.02 - Hypoxemia Plan #Hypoxia * etiology not clear * concern is for obesity hypoventilation synrome, as well as pulmonary hypertension and * already on eliquis * hypoxia is improving and she feels better * titrate oxygen to maintain sats >90% * breathing treatment with bronchodilators * titrate oxygen to maintain sats >90% * 2D echo ordered and read is pending * On breathing treatments of bronchodilators as well as prednisone. * 2D echo ordered and pending * Will need sleep study on outpatient basis. #Chest pain: This resolved. She states she had a stress test a year ago which was normal. Troponins were not elevated. 2D echo ordered and pending. #History of DVT: On Eliquis #Super morbid obesity: BMI is 46.3. Complicates acute treatment, expected outcome and prognosis. DVT prophylaxis: Eliquis # Medications at Discharge Home Medications apixaban 5 mg tablet 5 mg PO BID blood thinner 07/19/20 benztropine 1 mg tablet 1 mg PO BID mood 07/19/20 fluoxetine 20 mg capsule 20 mg PO DAILY depression 07/19/20 metformin 500 mg tablet,extended release 24 hr 500 mg PO DAILY dm 07/19/20 carvedilol 3.125 mg tablet (Coreg) 3.125 mg PO BID HEART 05/11/22 haloperidol 10 mg tablet 10 mg PO QHS MOOD 09/26/22 olanzapine 20 mg disintegrating tablet 20 mg PO QHS MOOD 09/26/22 prednisone 20 mg tablet 40 mg PO BREAKFAST #10 tabs 09/29/22 Hospital Course Operations None Procedures 2-D Echocardiogram Summary of Care Provided Minutes Spent on Discharge: 45 Hospital Course: Patient is a 52-year-old female with a past medical history as outlined was adm itted through the ED on 09/26/2022 with a complaint of shortness of breath which have been going on for about a month, with intermittent chest pain for about 1 week also. On admission her pulse ox was 85% and she was placed on oxygen by nasal cannula. Chest x-ray showed no acute cardiopulmonary pathology. D-dimer was not elevated and troponins were also not elevated. Chest x-ray showed no acute cardiopulmonary pathology. Patient was already known to be on Eliquis and so PE was thought to be less likely. She was admitted and managed for hypoxia with unclear etiology was thought to likely be due to BALDEMAR and obesity hypoventilation syndrome. COVID test was negative and respiratory panel was also negative. Patient was placed on oxygen. Her shortness of breath gradually improved and she felt much better. She was weaned off of oxygen eventually. She had walking pulse ox which showed that she did not require any home oxygen. 2D echo done showed EF of 55% with no evidence of diastolic dysfunction and no regional wall motion abnormalities noted. She was discharged home on 09/29/2022. She is to follow-up with a weighmaster lead and follow-up with her primary care doctor. She was discharged on p.o. prednisone taper. Patient seen and examined prior to discharge. She had no complaints and had an uneventful night. Review of systems otherwise negative. Labs and vitals reviewed. Home medication reviewed and reconciled. Physical Exam Const alert, oriented x3 and no apparent distress Constitutional Narrative: Soon for morbid obesity. General Appearance: cooperative, comfortable and well kempt HEENT normocephalic, head/scalp atraumatic, hearing grossly normal bilaterally and moist oral mucous membranes Mouth: oral and palatal mucosa normal Eyes PERRL and EOMs intact bilaterally Neck no lymphadenopathy, supple and no JVD Lymph Lymphatic: no lymphadenopathy noted Resp Resp Narrative: diminished breath sounds bibasally, no wheezes or crackles. On 2room air Cardio regular rate, regular rhythm, S1 normal heart sound, S2 normal heart sound and no murmurs GI normal to inspection, nondistended, normoactive bowel sounds, soft to palpation and non-tender Extremity normal to inspection, full ROM, normal capillary refill, no clubbing, cyanosis or edema and no calf tenderness Skin no rashes or lesions noted General Skin Exam: no breakdown Neuro oriented x3, CN's II-XII intact bilaterally, moves all extremities and no focal motor deficits Psych thought process normal and cooperative Appearance: appropriate Weight / BMI Weight Weight: 285 lb 15.033 oz Body Mass Index (BMI) 49.1 ABG / Lab / Microbiology Data Result Diagrams: 09/29/22 04:58 09/29/22 04:58 Laboratory: Laboratory Results - last 24 hr 09/29/22 04:58: WBC 8.6, RBC 4.88, Hgb 14.8, Hct 47.5 H, MCV 97.3, MCH 30.3, MCHC 31.2 L, RDW Std Deviation 44.5 H, RDW Coeff of Pato 12.5, Plt Count 217, MPV 10.3, Immature Gran % (Auto) 0.600, Neut % (Auto) 69.3, Lymph % (Auto) 22.6, [place] % (Auto) 6.7, Eos % (Auto) 0.6, Baso % (Auto) 0.2, Absolute Neuts (auto) 5.9, Absolute Lymphs (auto) 1.94, Nucleated RBC % 0 09/29/22 04:58: Sodium 136, Potassium 4.3, Chloride 108 H, Carbon Dioxide 23.0, Anion Gap 5, BUN 19 H, Creatinine 0.87, Estim Creat Clear Calc 63.83, Est GFR (MDRD) Af Amer 87, Est GFR (MDRD) Non-Af 72, BUN/Creatinine Ratio 21.7 H, Glucose 90, Calcium 8.7, Total Bilirubin 0.50, AST 33, ALT 44, Alkaline Phosphatase 77, Total Protein 7.0, Albumin 3.0 L, Globulin 4.0, Albumin/Globulin Ratio 0.8 L Microbiology: Microbiology 09/26/22 16:32 Mucosa - Nose Respiratory Panel (PCR) - Final 09/26/22 12:15 Nasal Secretion SARS-CoV-2 & FLU Antigen (Rapid) - Final Radiography Diagnostic Testing: Radiology Impression Echocardiogram 09/26/22 13:01 Interpretation Summary The estimated ejection fraction is 55 %. No evidence for diastolic dysfunction. Ordering Physician: Adilene Frey Referring Physician: Paty Catalan Performed By: Sylvia Lamb, JEAN, RVT D/C Instructions Discharge Diet: Low fat / Low cholesterol Discharge Activity: Return to Normal Activity Weight Bearing Status: Weight bearing as tolerated Call your doctor if you observe: Fever of 101 or Higher, Shortness of breath, Dizziness, Fainting spells, Swelling in the ankles, Chest pain and Increased palpitations (irregular heartbeat) Meaningful Use Info Meaningful Use Diagnoses (Choose all that apply): None applicable Discharge Plan Admission Admit Date/Time: 09/26/22 12:51 Primary Reason for Your Visit: shortness of breath Attending Provider: Ania Bauer Primary Care Provider: Paty Catalan Consulting Providers: Adilene Frey Discharge Orders/Prescriptions Prescriptions: New prednisone 20 mg Tablet 40 mg PO BREAKFAST Qty: 10 0RF Continued carvedilol [Coreg] 3.125 mg tablet 3.125 mg PO BID Rx Instructions: must administer with a meal/food apixaban 5 MG tablet 5 mg PO BID benztropine 1 MG tablet 1 mg PO BID fluoxetine 20 MG capsule 20 mg PO DAILY metformin 500 MG tablet extended release 24 hr 500 mg PO DAILY olanzapine 20 mg tablet,disintegrating 20 mg PO QHS haloperidol 10 mg tablet 10 mg PO QHS Referrals / Follow Up: Paty Catalan DO [Primary Care Provider] - 10/06/22 2:30 pm Norman Burton MD [Med Staff - Active Staff] - Within 2 Weeks (Please call office to schedule an appt. ) Disposition Disposition (needs filled in before D/C Order can be placed): Home, Self Care Charges/Coding Visit Charges Inpatient E&M: 58639 Disch Hosp >30min
[2022-09-29 13:03] VITALS: PULSE 88; RESP 20
[2022-09-29] MEDS: Acetaminophen 325 MG Tablet 650 MG PO (15:24)
[2022-09-29 16:05] VITALS: BP 122/98; PULSE 94; RESP 18; TEMP 36.6; O2SAT 95
== END 2022-09-29 16:01 | disposition home or self-care (01) | DRG 206 ==
LOC: ED 12:42 → MS3 13:03 → PCU 13:40
PROVIDERS: Admitting Provider Internal Medicine; Emergency Provider Student in an Organized Health Care Education/Training Program; PCP Internal Medicine; Visit Provider Student in an Organized Health Care Education/Training Program
DX: E66.2 Morbid (severe) obesity with alveolar hypoventilation (principal); Z68.42 Body mass index [BMI] 45.0-49.9, adult; E11.9 Type 2 diabetes mellitus without complications; F31.9 Bipolar disorder, unspecified; J44.9 Chronic obstructive pulmonary disease, unspecified; I10 Essential (primary) hypertension; R09.02 Hypoxemia; Z87.891 Personal history of nicotine dependence; Z79.52 Long term (current) use of systemic steroids; Z79.01 Long term (current) use of anticoagulants; Z79.84 Long term (current) use of oral hypoglycemic drugs; R07.9 Chest pain, unspecified; Z86.718 Personal history of other venous thrombosis and embolism; Z86.73 Personal history of transient ischemic attack (TIA), and cerebral infarction without residual deficits
CPT/HCPCS: 36415; 36600; 71045; 71250; 80048; 80053; 82803; 83880; 84443; 84484; 85025; 85379; 87428; 87633; 93005; 93306; 94640; 94668; 94762; 97162; 97530; 97802; 99252; 99285; Q9957; A4216; C8929; G0463

== ENCOUNTER 2022-10-04 20:45 | Observation (INO) | payer OTHER, MEDICARE, SELFPAY ==
[2022-10-04 20:46] VITALS: BP 135/89; PULSE 88; RESP 20; TEMP 36.6; O2SAT 90; BMI 48.2
--- NOTE | 2022-10-04 20:58 | EDS_ITS ---
HPI History of Present Illness Chief Complaint: Shortness of Breath Informant: patient Onset/Context/Timing Onset: Days Context: gradual Narrative Narrative: Patient recently hospitalized with shortness of breath and hypoxia. She was discharged in the hospital on September 29 and was not felt to need home oxygen at that time. Patient states since then she had increasing shortness of breath and will intermittently feel lightheaded. She does have some intermittent chest pressure. This was evaluated at her last admission as well. Patient denies fever or chills. She had a mild cough. [facility] Medical History Bipolar 1 disorder Cardiomyopathy Chest pain CHF (congestive heart failure) Diabetes Dizzy DVT (deep venous thrombosis) Eczema HTN (hypertension) IBS (irritable bowel syndrome) Nausea & vomiting BALDEMAR (obstructive sleep apnea) Palpitation PUD (peptic ulcer disease) Pulmonary embolism Schizophrenia Schizophrenia Stroke/cerebrovascular accident Home Medications apixaban 5 mg tablet 5 mg PO BID blood thinner 07/19/20 [History Last Taken 09/25/22] benztropine 1 mg tablet 1 mg PO BID mood 07/19/20 [History Last Taken 09/25/22] fluoxetine 20 mg capsule 20 mg PO DAILY depression 07/19/20 [History Last Taken 07/19/20] metformin 500 mg tablet,extended release 24 hr 500 mg PO DAILY dm 07/19/20 [History Last Taken 09/25/22] carvedilol 3.125 mg tablet (Coreg) 3.125 mg PO BID HEART 05/11/22 [History Last Taken 09/25/22] haloperidol 10 mg tablet 10 mg PO QHS MOOD 09/26/22 [History Last Taken 09/25/22] olanzapine 20 mg disintegrating tablet 20 mg PO QHS MOOD 09/26/22 [History Last Taken 09/25/22] Allergy/AdvReac Type Severity Reaction Status Date / Time No Known Allergies Allergy Verified 10/04/22 20:46 Family History Mother Breast cancer Aunt Breast cancer Surgical History H/O breast biopsy History of esophagogastroduodenoscopy (EGD) S/P cholecystectomy S/P dilation and curettage S/P hysterectomy S/P nasal septoplasty Social History household members: spouse housing: house Smoking Status: Former smoker Tobacco: How many years used: 4 alcohol intake: former substance use type: does not use ROS ROS ED Constitutional Constitutional ED: Denies chills or fever(s) Eyes Eyes: Denies change in vision or discharge from eye(s) ENT ENT ED: Denies discharge from eye(s), rhinorrhea or sore throat Cardiovascular Cardiovascular: Reports chest pain; Denies palpitations Respiratory/Chest Respiratory/Chest: Reports cough and dyspnea Gastrointestinal Gastrointestinal: Reports other Details: Decreased p.o. intake ; Denies abdominal pain, nausea or vomiting Genitourinary Genitourinary ED: Denies dysuria Musculoskeletal Musculoskeletal: Denies back pain or extremity pain Integumentary Denies Abrasions or rash Neurologic Neurologic: Denies headache(s) or weakness Allergic/Immunologic Allergic/Immunologic ED: Denies lip swelling or urticaria EXAM Physical Exam Narrative Exam Narrative: Patient lying in bed no acute distress. Speaking full sentences. Const Vital Signs: 10/04/22 20:46 10/04/22 21:35 10/04/22 21:37 Temperature 97.8 F Temperature Source Temporal Pulse Rate 88 78 Respiratory Rate 20 H 21 H Respiratory Effort Non-Labored Short of Breath Respiratory Depth Normal Respiratory Pattern Normal Blood Pressure 135/89 H 135/91 H Blood Pressure Mean 104 105 Pulse Ox 90 95 Oxygen Delivery Method Room Air Room Air Room Air 10/04/22 21:44 Temperature Temperature Source Pulse Rate 84 Respiratory Rate 18 Respiratory Effort Respiratory Depth Respiratory Pattern Normal Blood Pressure Blood Pressure Mean Pulse Ox Oxygen Delivery Method Positive well nourished and well developed General Appearance ED: well developed HEENT Reports moist mucous membranes Eyes EOMs intact bilaterally Neck no lymphadenopathy Resp normal respiratory effort Resp Narrative: Mild expiratory wheezes. Cardio regular rate and regular rhythm GI non-tender Back/Spine no CVA tenderness Extremity normal to inspection Neuro oriented x3 and no sensory deficits noted Motor Exam: strength 5/5 throughout Psych mental status grossly normal Skin no wounds Lesions: no lesions MDM MDM MDM Narrative Medical decision making narrative: Patient given breathing treatments. Patient placed on teletypesetter monitor. EKG obtained to evaluate for cardiac arrhythmia/ischemia. Labwork obtained to evaluate for leukocytosis, anemia, and electrolyte derangement. Chest x-ray obtained to evaluate for acute lung pathology, cardiac size, or mediastinal abnormality. History & Record Review Additional record(s) reviewed:: Prior inpatient record and Prior ED visit Lab Data Attestation: I reviewed the patient's lab results. Labs: Laboratory Results - last 24 hr 10/04/22 10/04/22 10/04/22 21:20 21:20 21:20 WBC 7.9 RBC 4.90 Hgb 15.0 Hct 46.0 MCV 93.9 MCH 30.6 MCHC 32.6 RDW Std Deviation 44.1 H RDW Coeff of Pato 12.8 Plt Count 235 MPV 9.6 Immature Gran % (Auto) 0.800 Neut % (Auto) 81.5 H Lymph % (Auto) 13.2 L [place] % (Auto) 4.4 Eos % (Auto) 0.0 Baso % (Auto) 0.1 Absolute Neuts (auto) 6.4 Absolute Lymphs (auto) 1.04 Nucleated RBC % 0 Sodium 141 Potassium 4.3 Chloride 108 H Carbon Dioxide 28.0 Anion Gap 5 BUN 26 H Creatinine 1.19 H Estim Creat Clear Calc 48.63 Est GFR (MDRD) Af Amer 61 Est GFR (MDRD) Non-Af 50 L BUN/Creatinine Ratio 21.8 H Glucose 138 H Calcium 8.7 Troponin I High Sens 5 B-Natriuretic Peptide 22.8 Radiography Chest X-Ray - ED: 1 View, Read by ED Physician, Normal, Heart, Lungs and Mediastinum Diagnostic Testing: Clinical Impression(s) from Imaging Studies Chest X-Ray 10/04/22 21:39 IMPRESSION: No radiographic evidence of acute cardiopulmonary disease. Electronically Signed: Anna Hughes MD at 22:08 EDT Reading Location ID and State: [id number] / Tel , Service support , EKG Initial EKG: Attestation: I personally reviewed and interpreted this EKG as follows: Interpretation: Sinus Rhythm (Sinus 81 with no acute ischemia.) Differential Diagnosis Chest pain/SOB: pulmonary embolism Reason(s) PE less likely: Positive for patient taking oral anticoagulants, ACS ACS: Positive for no evidence of ACS based on cardiac biomarkers and EKG without ischemia and pneumonia Reason(s) pneumonia less likely: Positive for no infiltrate on CXR, no elevation in WBC count and no noted fever Treatment and Re-Evaluation :: CBC and chemistry studies are unremarkable. Troponin is normal at 5 and BNP is 22. Chest x-ray per my interpretation reveals no acute findings. Radiology interpretation is reviewed and agrees. EKG reveals no ischemia. After breathing treatments patient's lung sounds are clear. Patient's O2 sat is 89 to 90% while lying at rest. Nursing staff ambulated the patient and she desaturates down to 82% on room air. Patient was discussed with the hospitalist. ABG will be drawn on room air at this time. She will be admitted to the floor. Discharge Plan Triage Chief Complaint: Shortness of Breath ED Provider: Olivia York Dx/Rx/DC Orders Clinical Impression: Dyspnea, Hypoxia Prescriptions: No Action carvedilol [Coreg] 3.125 mg tablet 3.125 mg PO BID Rx Instructions: must administer with a meal/food apixaban 5 MG tablet 5 mg PO BID benztropine 1 MG tablet 1 mg PO BID fluoxetine 20 MG capsule 20 mg PO DAILY metformin 500 MG tablet extended release 24 hr 500 mg PO DAILY olanzapine 20 mg tablet,disintegrating 20 mg PO QHS haloperidol 10 mg tablet 10 mg PO QHS Primary Care Provider: Paty Catalan Referrals: Paty Catalan DO [Primary Care Provider] - Disposition Disposition: Acute Care Hospital [facility]
[2022-10-04] MEDS: Ipratropium/Albuterol Sulfate 3 ML AMPUL.NEB INHALATION (21:14)
[2022-10-04 21:28] LABS: Absolute Lymphocyte Count 1.04 X10^3/uL (0.83-4.51); Absolute Neutrophil Count 6.4 X10^3/uL (2.0-7.7); Basophil# 0.01 X10^3/uL; Basophil% 0.1 % (0-1); Lymphocyte # 1.04 X10^3/ul (0.83-4.51); Lymphocyte % 13.2 % (19-41); Mean Corp Hgb Conc 32.6 g/dL (32-36); Mean Corpuscular Hgb 30.6 pg (27.0-32.0); Mean Corpuscular Volume 93.9 fL (81-99); Mean Platelet Vol. 9.6 fl (6.2-12.0); Monocyte# 0.35 X10^3/uL; Monocyte% 4.4 % (0-10); NRBC Flagged by Analyzer 0 % (0-5); Neutrophil # 6.44 X10^3/uL (2.7-7.7); Neutrophil % 81.5 % (47-70); Platelet Count 235 K/mm3 (150-450); RBC Distribution Width CV 12.8 % (11.6-14.6); RBC Distribution Width SD 44.1 fl (35.1-43.9); White Blood Count 7.9 K/mm3 (4.4-11.0)
[2022-10-04 21:35] VITALS: BP 135/91; PULSE 78; RESP 21; O2SAT 95
[2022-10-04 21:37] VITALS: O2SAT 95
--- NOTE | 2022-10-04 21:39 | RAD_ITS ---
INDICATION: sob EXAMINATION/TECHNIQUE: X-RAY - XR Chest 1 View COMPARISON: 09/26/2022. FINDINGS: LINES/DEVICES: None. LUNGS: No consolidation, edema or effusion. No pneumothorax. MEDIASTINUM AND CARDIOVASCULAR STRUCTURES: Cardiac silhouette not enlarged. Central airways and mediastinal contour are unremarkable. BONES AND SOFT TISSUES: Unremarkable. RAD/Chest 1 View (Portable) IMPRESSION: No radiographic evidence of acute cardiopulmonary disease. Electronically Signed: Anna Hughes MD at 22:08 EDT Reading Location ID and State: [id number] / Tel , Service support ,
[2022-10-04 21:44] VITALS: PULSE 84; RESP 18
[2022-10-04 21:48] LABS: Anion Gap 5 (5-15); BUN 26 mg/dL (7-18); BUN/Creat Ratio 21.8 RATIO (10-20); Calcium,Total 8.7 mg/dL (8.5-10.1); Chloride 108 mmol/L (98-107); Creatinine, Serum 1.19 mg/dL (0.55-1.02); EST Glomerular Filtration Rate 50 mL/min (>60); Est Glom Filt Rate - Afr Amer 61 mL/min (>60); Estimated Creatinine Clearance 48.63 ml/min; Glucose 138 mg/dL (74-106); Potassium 4.3 mmol/L (3.5-5.1); Sodium Level 141 mmol/L (136-145); Troponin-I HS 5 pg/mL (3.0-54.0)
[2022-10-04 21:54] LABS: BNP,B-Type NATRIURETIC PEPTIDE 22.8 pg/mL (0-100)
[2022-10-04] MEDS: Albuterol 2.5 MG/3 ML VIAL.NEB. INHALATION ×2 (22:23)
[2022-10-04 23:00] VITALS: BP 133/77; PULSE 90; RESP 19; O2SAT 90
[2022-10-04 23:37] VITALS: O2SAT 95
--- NOTE | 2022-10-04 23:41 | PCM.HP.STD ---
HPI - General General Date of Admission: 10/04/22 Date of Service: 10/04/22 Chief Complaint: Shortness of breath/hypoxia HPI Narrative COOPER NIELSEN, is a 52 F who presented emergency at [facility] on 10/04/2022 complaining of shortness of breath. She had a recent admission here from 09/27/2022 through 09/29/2022 with similar complaints. At that time she had a CT of her chest which was unremarkable, and echocardiogram which was unremarkable and showed an EF of 55% with no diastolic dysfunction and normal valves. Her cardiac enzymes were normal and her BNP was normal. She was ambulated and did not require oxygen at discharge and was discharged home in stable condition and asked to follow-up with her primary care physician. She states since discharge she has had ongoing shortness of breath. She complains of intermittent chest pressure which is central. It does not radiate, is not associated with any nausea or vomiting, and is not associate with diaphoresis. She states that sometimes she will get it when she is sitting and sometimes she is getting it when she exerts herself. She had no fever or chills, no cough or other signs of infection. Upon presentation her oxygen saturations were stable on room air and work-up was completed with plans to discharge her home however on exertion her oxygen saturations dipped into the mid 80s on room air. She is chronically anticoagulated with Eliquis. She is somewhat of a poor historian and has difficult to describing what has been going on, even when asked direct questions. Vital signs on presentation demonstrated temperature of 97.8, heart rate was 88, blood pressure is 135/89, respiratory rate 20 and oxygen saturations were 90% on room air at rest. With exertion she desatted to 82% on room air. Her CBC is unremarkable. Her BMP shows mildly elevated serum creatinine 1.19 (baseline 0.85-1). Glucose is 138. Troponin was 5. BNP is 22.8. Her urine is positive for nitrite and leuk esterase as well as white cells and bacteria so it does appear that she may have a urinary tract infection. Urine culture was sent. EKG shows normal sinus rhythm with normal intervals and no ST-T wave changes concerning for acute ischemia. CT of her chest was unremarkable. We did obtain an ABG on room air to see if she had obesity hypoventilation syndrome as her BMI is 48.2. ABG showed a pH of 7.44/PO2 of 71/PCO2 of 36.9 on room air. The emergency department she was started on ceftriaxone and given 1 DuoNeb. [facility] Medical History Bipolar 1 disorder Cardiomyopathy Chest pain CHF (congestive heart failure) Diabetes Dizzy DVT (deep venous thrombosis) Eczema HTN (hypertension) IBS (irritable bowel syndrome) Nausea & vomiting BALDEMAR (obstructive sleep apnea) Palpitation PUD (peptic ulcer disease) Pulmonary embolism Schizophrenia Schizophrenia Stroke/cerebrovascular accident Home Medications apixaban 5 mg tablet 5 mg PO BID blood thinner 07/19/20 [History Last Taken 09/25/22] benztropine 1 mg tablet 1 mg PO BID mood 07/19/20 [History Last Taken 09/25/22] fluoxetine 20 mg capsule 20 mg PO DAILY depression 07/19/20 [History Last Taken 07/19/20] metformin 500 mg tablet,extended release 24 hr 500 mg PO DAILY dm 07/19/20 [History Last Taken 09/25/22] carvedilol 3.125 mg tablet (Coreg) 3.125 mg PO BID HEART 05/11/22 [History Last Taken 09/25/22] haloperidol 10 mg tablet 10 mg PO QHS MOOD 09/26/22 [History Last Taken 09/25/22] olanzapine 20 mg disintegrating tablet 20 mg PO QHS MOOD 09/26/22 [History Last Taken 09/25/22] Allergy/AdvReac Type Severity Reaction Status Date / Time No Known Allergies Allergy Verified 10/04/22 20:46 Family History Mother Breast cancer Aunt Breast cancer Surgical History H/O breast biopsy History of esophagogastroduodenoscopy (EGD) S/P cholecystectomy S/P dilation and curettage S/P hysterectomy S/P nasal septoplasty Social History household members: spouse housing: house Smoking Status: Former smoker Tobacco: How many years used: 4 alcohol intake: former substance use type: does not use ROS Constitutional Constitutional: Denies anorexia, change in weight, chills, fatigue, fever(s), malaise, night sweats, weakness or other Eyes Eyes: Denies blurry vision, change in eye color, change in vision, discharge from eye(s), double vision, erythema, eye pain, loss of vision or other ENT HEENT: Denies abnormal hearing, dysphagia, ear pain, epistaxis, headache(s), hearing loss, nasal congestion, nasal discharge, post nasal drip, sinus pressure, sore throat or other Cardiovascular Cardiovascular: Reports chest pain and dyspnea on exertion; Denies claudication, edema, lightheadedness, orthopnea, palpitations, paroxysmal nocturnal dyspnea, rapid heart rate, syncope or other Respiratory/Chest Respiratory/Chest: Reports dyspnea, shortness of breath at rest and shortness of breath with exertion; Denies cough, excessive phlegm production, hemoptysis, productive cough, wheezing or other Gastrointestinal Gastrointestinal: Denies abdominal pain, coffee ground emesis, constipation, diarrhea, dyspepsia, hematemesis, hematochezia, loose stools, melena, nausea, vomiting or other Genitourinary Genitourinary: Reports urinary frequency; Denies burning urination, difficulty urinating, dysuria, hematuria, nocturia, urinary hesitancy, urinary incontinence, urinary urgency or other Musculoskeletal Musculoskeletal: Denies arthralgias, back pain, joint pain, joint stiffness, joint swelling, myalgias, neck pain or other Neurologic Neurologic: Denies abnormal gait, abnormal speech, confusion, disequilibrium, dizziness, focal weakness, headache(s), numbness, paresthesias, seizure-like activity, seizures, syncope, tingling, tremor(s) or other Psychiatric Psychiatric: Reports anxiety and depression; Denies homicidal ideation, suicidal ideation or other Endocrine Endocrinology: Denies change in body appearance, cold intolerance, excessive sweating, heat intolerance, polydipsia, polyuria or other Hematologic/Lymphatic Hematologic/Lymphatic: Denies anemia, easy bleeding, easy bruising, lymphadenopathy or other Allergic/Immunologic Allergic/Immunologic: Denies rhinitis, hives, eczemia, asthma or other Vital Signs Vital Signs Vital Signs: 10/04/22 20:46 10/04/22 21:35 10/04/22 21:37 Temperature 97.8 F Temperature Source Temporal Pulse Rate 88 78 Respiratory Rate 20 H 21 H Respiratory Effort Non-Labored Short of Breath Respiratory Depth Normal Respiratory Pattern Normal Blood Pressure 135/89 H 135/91 H Blood Pressure Mean 104 105 Pulse Ox 90 95 Oxygen Delivery Method Room Air Room Air Room Air 10/04/22 21:44 Temperature Temperature Source Pulse Rate 84 Respiratory Rate 18 Respiratory Effort Respiratory Depth Respiratory Pattern Normal Blood Pressure Blood Pressure Mean Pulse Ox Oxygen Delivery Method Weight Weight: 131.36 kg Body Mass Index (BMI) 48.2 Physical Exam Const alert, oriented x3 and well nourished Constitutional Narrative: Morbidly obese, middle-aged, white female, lying in bed, appears comfortable nontoxic General Appearance: cooperative HEENT normocephalic, head/scalp atraumatic, hearing grossly normal bilaterally and moist oral mucous membranes HEENT Narrative: Mallampati 3, dentition is fair, no thrush Eyes PERRL, EOMs intact bilaterally and conjunctivae normal Eyes Narrative: No scleral icterus Neck no lymphadenopathy, supple, no JVD and no carotid bruits Resp normal respiratory effort, no retractions, no use of accessory muscles and clear to auscultation bilaterally Auscultation: Negative for rales, rhonchi or wheezes Cardio regular rate, regular rhythm, S1 normal heart sound, S2 normal heart sound, no murmurs, no rub, no gallops and no clicks GI normal to inspection, nondistended, normoactive bowel sounds, soft to palpation and non-tender GI Narrative: Protuberant abdomen Extremity no clubbing, cyanosis or edema Extremity Narrative: 2+ pedal pulses Skin no rashes or lesions noted, no wounds, skin turgor normal, no jaundice, no petechiae and no mottling Neuro oriented x3, CN's II-XII intact bilaterally, moves all extremities and no focal motor deficits Speech: speech normal Motor Exam: strength 5/5 throughout Psych Psych Narrative: Affect is somewhat flat however eye contact is good mood does not seem altered at this time Results Lab / Micro Data Attestation: I reviewed the patient's lab results. Result Diagrams: 10/04/22 21:20 10/04/22 21:20 Labs: Laboratory Results - last 24 hr 10/04/22 21:20: WBC 7.9, RBC 4.90, Hgb 15.0, Hct 46.0, MCV 93.9, MCH 30.6, MCHC 32.6, RDW Std Deviation 44.1 H, RDW Coeff of Pato 12.8, Plt Count 235, MPV 9.6, Immature Gran % (Auto) 0.800, Neut % (Auto) 81.5 H, Lymph % (Auto) 13.2 L, [place] % (Auto) 4.4, Eos % (Auto) 0.0, Baso % (Auto) 0.1, Absolute Neuts (auto) 6.4, Absolute Lymphs (auto) 1.04, Nucleated RBC % 0 10/04/22 21:20: Sodium 141, Potassium 4.3, Chloride 108 H, Carbon Dioxide 28.0, Anion Gap 5, BUN 26 H, Creatinine 1.19 H, Estim Creat Clear Calc 48.63, Est GFR (MDRD) Af Amer 61, Est GFR (MDRD) Non-Af 50 L, BUN/Creatinine Ratio 21.8 H, Glucose 138 H, Calcium 8.7, Troponin I High Sens 5 10/04/22 21:20: B-Natriuretic Peptide 22.8 Radiology Impression Chest X-Ray 10/04/22 21:39 IMPRESSION: No radiographic evidence of acute cardiopulmonary disease. Electronically Signed: Anna Hughes MD at 22:08 EDT Reading Location ID and State: [id number] / Tel , Service support , Assessment & Plan Assessment/Plan (1) Dyspnea: (2) Hypoxia: (3) Chest pressure: PLAN: Plan Chest pressure with dyspnea -Could be anginal equivalent however cardiac enzymes and EKG are unremarkable -Check stress test -Had echocardiogram at last admission showed an EF of 55% with normal diastolic function -BNP is normal -Check lipids -Check hemoglobin A1c -Start baby aspirin -High-dose statin initiated but if work-up is negative may be discontinued Hypoxia -Was concerned that this was possibly related to obesity hypoventilation syndrome therefore got an ABG on room air however her AA gradient is slightly abnormal ruling this out as the only etiology. AA gradient was 24.3 and expected for age is 17.5 -Patient may need home oxygen at discharge -CT imaging for lungs was fairly unremarkable -Echocardiogram was normal -BNP is normal -We will have pulmonary medicine see her and weigh in on the situation -Patient does have history of smoking remotely however quit when she was 19 years old Urinary tract infection -UA is consistent with UTI -Urine cultures pending -Continue ceftriaxone initiated the emergency department BALDEMAR -Patient is not to be compliant with home CPAP History of DVT -Continue Eliquis Hypertension -Continue home carvedilol DM-2 -Hold home metformin -Sliding scale insulin -Accu-Cheks Bipolar disorder/catatonic schizophrenia -Continue home Haldol -Continue home olanzapine -Continue home Cogentin -Continue home fluoxetine Morbid obesity -BMI is 48.2 -Patient would benefit from weight loss -This complicates treatment, prognosis, outcomes DVT prophylaxis -Patient fully anticoagulated Eliquis CODE STATUS -Full code Charges/Coding Visit Charges Inpatient E&M: 22123 Init Hosp L2
[2022-10-05] VITALS (7 sets, daily range): BP systolic 112–139; BP diastolic 76–90; PULSE 78–103; RESP 14–22; TEMP 36.5–36.8; O2SAT 90–96; BMI 47.6
[2022-10-05 00:09] LABS: Mucous, Urine 0 SEEN /hpf (<or=2+); Red Blood Cells-Urine 0 SEEN /hpf (0-5); Squamous Epithelial Cells - UA 0 SEEN /hpf (5-10)
[2022-10-05 00:35] LABS: Allen Test Positive; Base Excess 1 mmol/L (-2 to +2); Bicarbonate 24.8 mmol/L (22-26); Blood Gas Specimen Type ART; O2 Delivery Device Room Air; PO2 71 mmHG (75-100); SITE R Radial; SO2 95 % (95-99); Total Carbon Dioxide 26 mmol/L; pCO2 36.9 mmHg (35-45); pH 7.44 (7.35-7.45)
[2022-10-05 00:47] LABS: Color, Urine Yellow (Yellow); Glucose, Dipstick Normal (Normal); Ketone-Dipstick Negative (Negative); Leukocyte Esterase-Dipstick 100 /ul (Negative); Nitrite-Dipstick Positive (Negative); Occult Blood-Urine Negative /ul (Negative); Protein-Dipstick Negative (Negative); Urine Bilirubin Dipstick Negative (Negative); Urine Clarity Cloudy (Clear); Urine Urobilinogen Normal (Normal)
[2022-10-05 00:54] LABS: Bacteria 4+ /hpf (None Seen); White Blood Cells 10-25 SEEN /hpf (0-5)
[2022-10-05] MEDS: Ceftriaxone 1 GM/50 ML BAG IV ×2 (01:28→09:41)
[2022-10-05 03:07] LABS: Troponin-I HS 5 pg/mL (3.0-54.0)
[2022-10-05 04:31] LABS: Absolute Neutrophil Count 5.9 X10^3/uL (2.0-7.7); Basophil# 0.02 X10^3/uL; Basophil% 0.2 % (0-1); Eosinophil# 0.05 X10^3/uL; Eosinophils% 0.6 % (0-5); Hemoglobin 14.7 g/dL (12.0-15.0); Lymphocyte % 21.1 % (19-41); Mean Corp Hgb Conc 31.3 g/dL (32-36); Mean Corpuscular Hgb 30.8 pg (27.0-32.0); Mean Corpuscular Volume 98.5 fL (81-99); Mean Platelet Vol. 11.8 fl (6.2-12.0); Monocyte% 8.2 % (0-10); NRBC Flagged by Analyzer 0 % (0-5); Neutrophil # 5.91 X10^3/uL (2.7-7.7); Neutrophil % 69.3 % (47-70); POSITIVE COUNT YES; Platelet Count 60 K/mm3 (150-450); RBC Distribution Width CV 12.7 % (11.6-14.6); RBC Distribution Width SD 46.1 fl (35.1-43.9); Red Blood Count 4.77 M/mm3 (4.2-5.4); White Blood Count 8.5 K/mm3 (4.4-11.0)
[2022-10-05 04:47] LABS: Troponin-I HS 6 pg/mL (3.0-54.0)
[2022-10-05 05:03] LABS: Differential Indicated SCAN CRITERIA MET
[2022-10-05 05:05] LABS: Platelet Estimate MOD DEC (ADEQ)
[2022-10-05 05:13] LABS: Anion Gap 4 (5-15); BUN 24 mg/dL (7-18); BUN/Creat Ratio 29.3 RATIO (10-20); Chloride 110 mmol/L (98-107); Cholesterol 142 mg/dL (200); Creatinine, Serum 0.82 mg/dL (0.55-1.02); EST Glomerular Filtration Rate 77 mL/min (>60); Est Glom Filt Rate - Afr Amer 93 mL/min (>60); Estimated Creatinine Clearance 67.73 ml/min; Glucose 107 mg/dL (74-106); High Density Lipoprotein 48 mg/dL; Magnesium 1.8 mg/dL (1.6-2.6); Potassium 3.8 mmol/L (3.5-5.1); Sodium Level 138 mmol/L (136-145); Triglycerides 101 mg/dL; Very Low Density Lipoprotein 20 mg/dL (5-40)
[2022-10-05] MEDS: Aspirin E.C. 81 MG Tablet PO (06:45)
[2022-10-05 07:05] LABS: Bedside Glucose 105 mg/dL (74-106)
[2022-10-05] MEDS: Benztropine Mesylate 0.5 MG TABLET 1 MG PO (09:34)
[2022-10-05] MEDS: Carvedilol 3.125 MG TABLET PO (09:34)
[2022-10-05] MEDS: FLUoxetine 20 MG Capsule PO (09:34)
[2022-10-05] MEDS: 0.9% Saline Lock 10 ML Syringe IV (09:41)
--- NOTE | 2022-10-05 10:51 | STRESSREP_ITS ---
Stress Test Report Date: 10/05/2022 Procedure: Pharmacologic stress nuclear imaging study Indications: Chest pain/dyspnea Consent: Per the patient Procedure: The patient underwent pharmacologic (Regadenoson 0.4mg ) evaluation with a peak heart rate of 139 beats per minute (83%predicted maximal heart rate) and a peak blood pressure of 136/70 mmHg. The baseline ECG demonstrated normal sinus rhythm. The peak pharmacologic ECG demonstrated no ischemic change. [There were no cardiac dysrhythmias pretest, during pharmacologic infusion, or recovery]. [There was no complaint of chest discomfort during pharmacologic infusion or recovery]. The patient was injected with 15 millicuries of technetium 99m Cardiolite and subsequently rest SPECT Cardiolite nuclear imaging was obtained in the horizontal long, vertical long, and short axis views. The patient underwent pharmacologic (Regadenoson) evaluation. The patient was injected with 44.8 millicuries of technetium 99m Cardiolite and subsequently stress SPECT Cardiolite nuclear imaging was obtained in the horizontal long, vertical long, and short axis views. A gated Cardiolite study at peak stress was obtained. The examination was stopped secondary to completion of protocol. Rest and stress SPECT Cardiolite nuclear imaging status post realignment, normalization, and attenuation correction demonstrate no fixed or reversible perfusion defect. [There is end systolic thickening and brightening]. [The gated Cardiolite study demonstrates myocardial thickening and inward wall motion]. T he reported LVEF is 71%. Impression: 1. Pharmacologic (Regadenoson) evaluation 2. Peak pharmacologic ECG with no ischemic change. 3. [There were no cardiac dysrhythmias pretest, during pharmacologic infusion, or recovery]. 5. No fixed or reversible perfusion defects. 6. The gated Cardiolite study reports an LVEF of 71%. This note was generated with [employer] software. It may contain incorrect words, spelling, and punctuation that were not noted in checking the note before signing.
[2022-10-05 11:25] LABS: Bedside Glucose 128 mg/dL (74-106)
--- NOTE | 2022-10-05 13:51 | DCINST_ITS ---
Discharge Instructions Diet Discharge Diet: No restrictions Activity Discharge Activity: Return to Normal Activity Weight Bearing Status: Full weight bearing Follow Up Care Test Results: Test results from this visit will be discussed in further detail at your follow- up appointment, if applicable. Discharge Plan Admission Admit Date/Time: 10/05/22 00:51 Primary Reason for Your Visit: shortness of breath Attending Provider: Vincent Reddy Primary Care Provider: Paty Catalan Consulting Providers: Kerrie Savage ; Louie Chaudhary ; Jacobo Galvez ; Hussein Hicks ; Kostas Hall ; Rosa Green [employer] Instructions Additional Instructions / Restrictions: Follow up with your lung doctor and your director of customer acquisition as scheduled Discharge Orders/Prescriptions Prescriptions: New cephalexin 500 mg capsule 500 mg PO TID Qty: 16 0RF Rx Instructions: start tonite before bedtime Continued carvedilol [Coreg] 3.125 mg tablet 3.125 mg PO BID Rx Instructions: must administer with a meal/food apixaban 5 MG tablet 5 mg PO BID benztropine 1 MG tablet 1 mg PO BID fluoxetine 20 MG capsule 20 mg PO DAILY metformin 500 MG tablet extended release 24 hr 500 mg PO DAILY olanzapine 20 mg tablet,disintegrating 20 mg PO QHS haloperidol 10 mg tablet 10 mg PO QHS Referrals / Follow Up: Paty Catalan DO [Primary Care Provider] - Disposition Disposition (needs filled in before D/C Order can be placed): Home, Self Care
--- NOTE | 2022-10-05 14:03 | EX.PCM.CONCC ---
Assessment & Plan Assessment/Plan (1) Hypoxia: PLAN: Plan RECOMMENDATIONS: 1. Obtain a walking oximetry 2. Provide supplemental oxygen if indicated 3. Continue workup per Dr. Burton as outpatient 4. Encourage IS 5. Patient would likely benefit from a sleep work-up IMPRESSIONS: 1. Hypoxia Unclear etiology. Clinical suspicion is for an element of obesity hypoventilation, but AA gradient was elevated on room air ABG. This may be accounted for by atelectasis given her size. Patient is undergoing a work-up as an outpatient with Dr. Burton. It is likely not necessary to continue hospitalization given the patient has had a negative stress test. Would defer to Dr. Machado to continue the work-up as an outpatient. Patient would likely benefit from an incentive spirometer and a sleep work-up. We will obtain a walking oximetry. If patient requires supplemental oxygen, this can be provided at discharge pending work-up. Echocardiogram is not suggestive of pulmonary hypertension, but given size, echocardiogram can be difficult to interpret. Patient may benefit from an outpatient right heart catheterization. Patient is on multiple sedating medications secondary to her psychiatric condition and this may also complicate evaluation. Patient has had multiple CT scans in the last 6 months including a CTA showing no PE. Patient is on anticoagulation and has not had significant tachycardia during hospitalization, so PE would be unlikely. 2. Morbid obesity/bipolar disease/hypertension Complicates care, management, recovery and prognosis. Okay to continue with baseline medications for now. HPI Consult Data Date of Consult: 10/05/22 HPI Narrative Reason for Consultation: Hypoxia HPI Narrative: COOPER NIELSEN is a 52 F, with past medical history listed below, who presents to [facility] on 10/04/2022 secondary to shortness of breath and hypoxia. Patient reportedly was hospitalized in early September and discharged without supplemental oxygen. Patient states that she has been using a home pulse oximeter and but noted that it was dropping into the upper 80s. Patient had reported increasing shortness of breath and intermittent lightheadedness. Patient also had reported intermittent chest pressure. Patient denied any fever or chills, but did have a mild cough. Patient is on anticoagulation at baseline and has a remote smoking history. In the ER, patient was afebrile, but slightly tachypneic at 21 breaths/min. Patient initially was noted to be 90% on room air and did desaturate with ambulation. Laboratory work-up was relatively unremarkable except for hemoglobin of 15, bicarbonate of 28 and a creatinine of 1.19. Glucose was slightly elevated at 138, but troponin and BNP were within normal limits. Chest x-ray showed no acute infiltrate and EKG did not show any significant ST or T wave changes. Patient was admitted to the hospital and pulmonary was consulted secondary to the hypoxia. On my evaluation, patient is no longer requiring supplemental oxygen. Patient is denying any chest pain or palpitations at this time. Patient has had a stress test showing no reproducible ischemia. Patient states that she does follow-up as an outpatient with Dr. Burton. Patient states she had seen him in the past, but recently reestablished care secondary to the hypoxia. Patient reportedly has an extensive work-up as an outpatient including a pulmonary function test. Patient does see a chimney builder helper at [facility]. Patient is a poor historian and not able to provide much of the information. Patient does state that she was on a inhaler but this made it worse, so I stopped it. Patient is not able to give the color or describe the inhaler in any way. Review of systems otherwise negative from a constitutional, HEENT, respiratory, cardiovascular, GI, genitourinary, musculoskeletal, skin, neurologic, psychiatric and hematologic system unless stated above. [facility] Medical History Bipolar 1 disorder Cardiomyopathy Chest pain CHF (congestive heart failure) Diabetes Dizzy DVT (deep venous thrombosis) Eczema HTN (hypertension) IBS (irritable bowel syndrome) Nausea & vomiting BALDEMAR (obstructive sleep apnea) Palpitation PUD (peptic ulcer disease) Pulmonary embolism Schizophrenia Schizophrenia Stroke/cerebrovascular accident Home Medications apixaban 5 mg tablet 5 mg PO BID blood thinner 07/19/20 [History Last Taken 09/25/22] benztropine 1 mg tablet 1 mg PO BID mood 07/19/20 [History Last Taken 09/25/22] fluoxetine 20 mg capsule 20 mg PO DAILY depression 07/19/20 [History Last Taken 07/19/20] metformin 500 mg tablet,extended release 24 hr 500 mg PO DAILY dm 07/19/20 [History Last Taken 09/25/22] carvedilol 3.125 mg tablet (Coreg) 3.125 mg PO BID HEART 05/11/22 [History Last Taken 09/25/22] haloperidol 10 mg tablet 10 mg PO QHS MOOD 09/26/22 [History Last Taken 09/25/22] olanzapine 20 mg disintegrating tablet 20 mg PO QHS MOOD 09/26/22 [History Last Taken 09/25/22] cephalexin 500 mg capsule 500 mg PO TID #16 caps 10/05/22 [Rx Last Taken Unknown] Allergy/AdvReac Type Severity Reaction Status Date / Time No Known Allergies Allergy Verified 10/04/22 20:46 Family History Mother Breast cancer Aunt Breast cancer Surgical History H/O breast biopsy History of esophagogastroduodenoscopy (EGD) S/P cholecystectomy S/P dilation and curettage S/P hysterectomy S/P nasal septoplasty Social History household members: spouse housing: house Smoking Status: Former smoker Tobacco: How many years used: 4 alcohol intake: former substance use type: does not use ROS ROS Narrative See HPI. Somewhat limited secondary to poor historian Physical Exam Const alert, oriented x3 and well nourished Constitutional Narrative: Morbidly obese, middle-aged, white female, lying in bed, appears comfortable nontoxic General Appearance: cooperative HEENT normocephalic, head/scalp atraumatic, hearing grossly normal bilaterally and moist oral mucous membranes HEENT Narrative: Mallampati 3, dentition is fair, no thrush Eyes PERRL, EOMs intact bilaterally, conjunctivae normal and no scleral icterus Neck no lymphadenopathy, supple, no JVD and no carotid bruits Resp normal respiratory effort, no retractions, no use of accessory muscles and clear to auscultation bilaterally Resp Narrative: Somewhat diminished respiratory sounds secondary to body habitus Auscultation: Negative for rales, rhonchi or wheezes Cardio regular rate, regular rhythm, S1 normal heart sound, S2 normal heart sound, no murmurs, no rub, no gallops and no clicks GI normal to inspection, nondistended, normoactive bowel sounds, soft to palpation and non-tender GI Narrative: Protuberant abdomen Extremity no clubbing, cyanosis or edema Extremity Narrative: 2+ pedal pulses Skin no rashes or lesions noted, no wounds, skin turgor normal, no jaundice, no petechiae and no mottling Neuro oriented x3, CN's II-XII intact bilaterally, moves all extremities and no focal motor deficits Speech: speech normal Motor Exam: strength 5/5 throughout Psych Psych Narrative: Flat affect, but does make eye contact Medical Records Data Attestation: I reviewed the patient's medical records Lab / Micro Data Attestation: I reviewed the patient's lab results. Result Diagrams: 10/05/22 04:18 10/05/22 04:18 Labs: Laboratory Results - last 24 hr 10/04/22 21:20: WBC 7.9, RBC 4.90, Hgb 15.0, Hct 46.0, MCV 93.9, MCH 30.6, MCHC 32.6, RDW Std Deviation 44.1 H, RDW Coeff of Pato 12.8, Plt Count 235, MPV 9.6, Immature Gran % (Auto) 0.800, Neut % (Auto) 81.5 H, Lymph % (Auto) 13.2 L, [place] % (Auto) 4.4, Eos % (Auto) 0.0, Baso % (Auto) 0.1, Absolute Neuts (auto) 6.4, Absolute Lymphs (auto) 1.04, Nucleated RBC % 0 10/04/22 21:20: Sodium 141, Potassium 4.3, Chloride 108 H, Carbon Dioxide 28.0, Anion Gap 5, BUN 26 H, Creatinine 1.19 H, Estim Creat Clear Calc 48.63, Est GFR (MDRD) Af Amer 61, Est GFR (MDRD) Non-Af 50 L, BUN/Creatinine Ratio 21.8 H, Glucose 138 H, Calcium 8.7, Troponin I High Sens 5 10/04/22 21:20: B-Natriuretic Peptide 22.8 10/04/22 23:45: Urine Color Yellow, Urine Clarity Cloudy, Urine pH 6.0, Ur Specific [place] 1.020, Urine Protein Negative, Urine Glucose (UA) Normal, Urine Ketones Negative, Urine Occult Blood Negative, Urine Nitrite Positive H, Urine Bilirubin Negative, Urine Urobilinogen Normal, Ur Leukocyte Esterase 100 H, Urine RBC 0 SEEN, Urine WBC 10-25 SEEN, Ur Squamous Epith Cells 0 SEEN, Urine Bacteria 4+, Urine Mucus 0 SEEN 10/05/22 02:40: Troponin I High Sens 5 10/05/22 04:18: WBC 8.5, RBC 4.77, Hgb 14.7, Hct 47.0, MCV 98.5, MCH 30.8, MCHC 31.3 L, RDW Std Deviation 46.1 H, RDW Coeff of Pato 12.7, Plt Count 60 L, MPV 11.8, Immature Gran % (Auto) 0.600, Neut % (Auto) 69.3, Lymph % (Auto) 21.1, [place] % (Auto) 8.2, Eos % (Auto) 0.6, Baso % (Auto) 0.2, Absolute Neuts (auto) 5.9, Absolute Lymphs (auto) 1.80, Nucleated RBC % 0, Platelet Estimate MOD DEC 10/05/22 04:18: Sodium 138, Potassium 3.8, Chloride 110 H, Carbon Dioxide 24.0, Anion Gap 4 L, BUN 24 H, Creatinine 0.82, Estim Creat Clear Calc 67.73, Est GFR (MDRD) Af Amer 93, Est GFR (MDRD) Non-Af 77, BUN/Creatinine Ratio 29.3 H, Glucose 107 H, Calcium 8.0 L, Magnesium 1.8, Triglycerides 101, Cholesterol 142, LDL Cholesterol 74, VLDL Cholesterol 20, HDL Cholesterol 48 10/05/22 04:18: Phosphorus 4.0 10/05/22 04:18: Troponin I High Sens 6 10/05/22 06:42: POC Glucose 105 10/05/22 11:06: POC Glucose 128 H Micro: Microbiology 10/04/22 23:45 Urine, Random Legionella Antigen - Final 10/04/22 23:45 Urine, Random Streptococcus pneumoniae Antigen (M - Final ABG Data ABG results: ABG 10/05/22 00:29 Specimen Type ART Sample Site R Radial pH 7.44 Bicarbonate Actual 24.8 Total CO2 26 Base Excess 1 O2 Saturation 95 ABG pCO2 36.9 ABG pO2 71 L Rolo Test Positive O2 Delivery Device Room Air Attestation: I personally reviewed and interpreted this ABG as follows: (Grossly normal ABG with slightly increased AA gradient) Radiology Impression Chest X-Ray 10/04/22 21:39 IMPRESSION: No radiographic evidence of acute cardiopulmonary disease. Electronically Signed: Anna Hughes MD at 22:08 EDT Reading Location ID and State: [id number] / Tel , Service support , Charges/Coding Visit Charges Inpatient E&M: 09738 Init Hosp L2
--- NOTE | 2022-10-05 14:08 | DS.PCM_ITS ---
Providers Date of Admission: 10/05/22 Date of Discharge: 10/06/22 Primary Care Physician: Dr. Paty Catalan, DO Consultations 10/05/22 02:11 Consult: Professional Services Specialist / Pulmonary Medicine Routine Consulting Provider: [facility] Reason for Consult: Hypoxia EMERGENT Consult: No MD Notified: Yes Date Notified: 10/05/22 Time Notified: 06:52 Method of Notification: Text Reason For Visit: SOB/CHEST PRESSURE/HYPOXIA Diagnosis Discharge Diagnosis (1) Dyspnea: Status: Acute Code(s): R06.00 - Dyspnea, unspecified (2) Hypoxia: Status: Inactive Code(s): R09.02 - Hypoxemia (3) Chest pressure: Status: Resolved Code(s): R07.89 - Other chest pain Plan 1. Musculoskeletal chest pain #2 dyspnea on exertion-etiology unclear #3 Morbid obesity #4 schizophrenia #5 bipolar disorder #6 hypoxia-etiology unclear #7 acute cystitis Medications at Discharge Home Medications apixaban 5 mg tablet 5 mg PO BID blood thinner 07/19/20 benztropine 1 mg tablet 1 mg PO BID mood 07/19/20 fluoxetine 20 mg capsule 20 mg PO DAILY depression 07/19/20 metformin 500 mg tablet,extended release 24 hr 500 mg PO DAILY dm 07/19/20 carvedilol 3.125 mg tablet (Coreg) 3.125 mg PO BID HEART 05/11/22 haloperidol 10 mg tablet 10 mg PO QHS MOOD 09/26/22 olanzapine 20 mg disintegrating tablet 20 mg PO QHS MOOD 09/26/22 cephalexin 500 mg capsule 500 mg PO TID #16 caps 10/05/22 Hospital Course Operations None Procedures Stress test Summary of Care Provided Minutes Spent on Discharge: 30 Hospital Course: This 52-year-old white female was seen in the emergency room at [facility] with complaints of chest discomfort and shortness of breath on exertion. Work-up in the emergency room revealed the patient to be hypoxic on exertion but not at rest. Patient's EKG was unremarkable, patient's chest x- ray was unremarkable. Urinalysis indicated a possible cystitis, patient was placed in observation status on PCU, she received IV antibiotics and underwent a nuclear stress test that was negative for reversible ischemia. Patient was not hypoxic on activity at the time of discharge. On 10/05/2022, patient was seen and examined: On examination she appeared in good health and spirits, she does not appear to be in any distress. Vital signs as do cumented. Skin warm and dry and without overt rashes. Neck without JVD, thyroid appears normal, trachea is midline, neck is supple. Lungs clear, normal air movement was noted. Heart exam notable for regular rhythm, normal sounds and absence of murmurs, rubs or gallops. Abdomen unremarkable and without evidence of organomegaly, masses, or abdominal aortic enlargement, bowel sounds are present in all 4 quadrants, no abdominal tenderness was noted. Extremities nonedematous, no cyanosis was noted, no clubbing was noted. Neuro: Cranial nerves II through XII are grossly intact, no focal motor deficits were noted, sensation to light touch and pinprick is intact, motor exam 5/5 throughout. Psych: Patient is alert and oriented x3, she does not appear anxious or depressed, she does not appear agitated. Patient was discharged home in stable condition on 10/05/2022. Weight / BMI Weight Weight: 125.9 kg Body Mass Index (BMI) 47.6 ABG / Lab / Microbiology Data Result Diagrams: 10/05/22 04:18 10/05/22 04:18 Laboratory: Laboratory Results - last 24 hr 10/04/22 21:20: WBC 7.9, RBC 4.90, Hgb 15.0, Hct 46.0, MCV 93.9, MCH 30.6, MCHC 32.6, RDW Std Deviation 44.1 H, RDW Coeff of Pato 12.8, Plt Count 235, MPV 9.6, Immature Gran % (Auto) 0.800, Neut % (Auto) 81.5 H, Lymph % (Auto) 13.2 L, [place] % (Auto) 4.4, Eos % (Auto) 0.0, Baso % (Auto) 0.1, Absolute Neuts (auto) 6.4, Absolute Lymphs (auto) 1.04, Nucleated RBC % 0 10/04/22 21:20: Sodium 141, Potassium 4.3, Chloride 108 H, Carbon Dioxide 28.0, Anion Gap 5, BUN 26 H, Creatinine 1.19 H, Estim Creat Clear Calc 48.63, Est GFR (MDRD) Af Amer 61, Est GFR (MDRD) Non-Af 50 L, BUN/Creatinine Ratio 21.8 H, Glucose 138 H, Calcium 8.7, Troponin I High Sens 5 10/04/22 21:20: B-Natriuretic Peptide 22.8 10/04/22 23:45: Urine Color Yellow, Urine Clarity Cloudy, Urine pH 6.0, Ur S pecific [place] 1.020, Urine Protein Negative, Urine Glucose (UA) Normal, Urine Ketones Negative, Urine Occult Blood Negative, Urine Nitrite Positive H, Urine Bilirubin Negative, Urine Urobilinogen Normal, Ur Leukocyte Esterase 100 H, Urine RBC 0 SEEN, Urine WBC 10-25 SEEN, Ur Squamous Epith Cells 0 SEEN, Urine Bacteria 4+, Urine Mucus 0 SEEN 10/05/22 02:40: Troponin I High Sens 5 10/05/22 04:18: WBC 8.5, RBC 4.77, Hgb 14.7, Hct 47.0, MCV 98.5, MCH 30.8, MCHC 31.3 L, RDW Std Deviation 46.1 H, RDW Coeff of Pato 12.7, Plt Count 60 L, MPV 11.8, Immature Gran % (Auto) 0.600, Neut % (Auto) 69.3, Lymph % (Auto) 21.1, [place] % (Auto) 8.2, Eos % (Auto) 0.6, Baso % (Auto) 0.2, Absolute Neuts (auto) 5.9, Absolute Lymphs (auto) 1.80, Nucleated RBC % 0, Platelet Estimate MOD DEC 10/05/22 04:18: Sodium 138, Potassium 3.8, Chloride 110 H, Carbon Dioxide 24.0, Anion Gap 4 L, BUN 24 H, Creatinine 0.82, Estim Creat Clear Calc 67.73, Est GFR (MDRD) Af Amer 93, Est GFR (MDRD) Non-Af 77, BUN/Creatinine Ratio 29.3 H, Glu cose 107 H, Calcium 8.0 L, Magnesium 1.8, Triglycerides 101, Cholesterol 142, LDL Cholesterol 74, VLDL Cholesterol 20, HDL Cholesterol 48 10/05/22 04:18: Phosphorus 4.0 10/05/22 04:18: Troponin I High Sens 6 10/05/22 06:42: POC Glucose 105 10/05/22 11:06: POC Glucose 128 H Microbiology: Microbiology 10/04/22 23:45 Urine, Random Legionella Antigen - Final 10/04/22 23:45 Urine, Random Streptococcus pneumoniae Antigen (M - Final ABG: ABG 10/05/22 00:29 Specimen Type ART Sample Site R Radial pH 7.44 Bicarbonate Actual 24.8 Total CO2 26 Base Excess 1 O2 Saturation 95 ABG pCO2 36.9 ABG pO2 71 L Rolo Test Positive O2 Delivery Device Room Air Radiography Diagnostic Testing: Radiology Impression Chest X-Ray 10/04/22 21:39 IMPRESSION: No radiographic evidence of acute cardiopulmonary disease. Electronically Signed: Anna Hughes MD at 22:08 EDT , D/C Instructions Discharge Diet: No restrictions Weight Bearing Status: Full weight bearing Meaningful Use Info Meaningful Use Diagnoses (Choose all that apply): None applicable Discharge Plan Admission Admit Date/Time: 10/05/22 00:51 Primary Reason for Your Visit: shortness of breath Attending Provider: Vincent Reddy Primary Care Provider: Paty Catalan Consulting Providers: Kerrie Savage ; Louie Chaudhary ; Jacobo Galvez ; Hussein Hicks ; Kostas Hall ; Rosa Green PURIFICATION OPERATOR Instructions Additional Instructions / Restrictions: Follow up with your lung doctor and your international relations teacher as scheduled Discharge Orders/Prescriptions Prescriptions: New cephalexin 500 mg capsule 500 mg PO TID Qty: 16 0RF Rx Instructions: start tonite before bedtime Continued carvedilol [Coreg] 3.125 mg tablet 3.125 mg PO BID Rx Instructions: must administer with a meal/food apixaban 5 MG tablet 5 mg PO BID benztropine 1 MG tablet 1 mg PO BID fluoxetine 20 MG capsule 20 mg PO DAILY metformin 500 MG tablet extended release 24 hr 500 mg PO DAILY olanzapine 20 mg tablet,disintegrating 20 mg PO QHS haloperidol 10 mg tablet 10 mg PO QHS Referrals / Follow Up: Paty Catalan DO [Primary Care Provider] - Disposition Disposition (needs filled in before D/C Order can be placed): Home, Self Care Charges/Coding Visit Charges Inpatient E&M: 13246 Disch Hosp
--- NOTE | 2022-10-05 15:31 | PHA.DC.MR ---
Pharmacy Service has performed discharge medication reconciliation for this patient. The patient's discharge medication list was reviewed for discrepancies and discrepancies were resolved. Unable to counselor camp, medications reviewed. Home Medications apixaban 5 mg tablet 5 mg PO BID blood thinner 07/19/20 benztropine 1 mg tablet 1 mg PO BID mood 07/19/20 fluoxetine 20 mg capsule 20 mg PO DAILY depression 07/19/20 metformin 500 mg tablet,extended release 24 hr 500 mg PO DAILY dm 07/19/20 carvedilol 3.125 mg tablet (Coreg) 3.125 mg PO BID HEART 05/11/22 haloperidol 10 mg tablet 10 mg PO QHS MOOD 09/26/22 olanzapine 20 mg disintegrating tablet 20 mg PO QHS MOOD 09/26/22 cephalexin 500 mg capsule 500 mg PO TID #16 caps 10/05/22
== END 2022-10-05 14:08 | disposition home or self-care (01) ==
LOC: ED 23:53 → PCU 10-05 01:10
PROVIDERS: Admitting Provider Internal Medicine; Emergency Provider Emergency Medicine; PCP Internal Medicine; Visit Provider Internal Medicine
DX: R07.89 Other chest pain (principal); I11.0 Hypertensive heart disease with heart failure; I42.9 Cardiomyopathy, unspecified; I50.9 Heart failure, unspecified; F31.9 Bipolar disorder, unspecified; E11.65 Type 2 diabetes mellitus with hyperglycemia; E66.01 Morbid (severe) obesity due to excess calories; Z68.42 Body mass index [BMI] 45.0-49.9, adult; Z79.01 Long term (current) use of anticoagulants; Z87.891 Personal history of nicotine dependence; R09.02 Hypoxemia; Z79.84 Long term (current) use of oral hypoglycemic drugs; Z79.899 Other long term (current) drug therapy; G47.33 Obstructive sleep apnea (adult) (pediatric); Z86.711 Personal history of pulmonary embolism; Z86.718 Personal history of other venous thrombosis and embolism; N39.0 Urinary tract infection, site not specified
CPT/HCPCS: 99285; 36415; 36600; 71045; 78452; 80048; 80061; 81001; 82803; 82962; 83735; 83880; 84100; 84484; 85025; 87077; 87086; 87088; 87186; 87449; 93005; 93017; 94640; 94668; 96365; 96366; 99221; 99252; A9500; J7050; A4216; G0378; G0463; J2785

== ENCOUNTER → 2022-11-13 | Outpatient (CLI) | payer OTHER, MEDICARE, SELFPAY ==
--- NOTE | 2022-11-13 09:23 | BI_ITS ---
MAMMOGRAPHY - UNILATERAL DIAGNOSTIC: RIGHT BREAST REASON FOR EXAM: Female, 52 years old. Six-month follow-up for stereotactic biopsy of the upper outer quadrant of the right breast. PERTINENT HISTORY: Mother with breast cancer. Aunt with breast cancer. TECHNIQUE: Digital unilateral breast jakob (3D mammographic acquisition) in the CC and MLO projections. 2-D mediolateral oblique (MLO) and craniocaudad (CC) views of both breasts were obtained. CAD: Full Field Digital Mammography with Computer Added Detection was performed. COMPARISON: Comparison is made with prior study of May 04, 2022. FINDINGS: Breast Composition: There are scattered areas of fibroglandular density. Once again, there is diffuse microcalcifications in the deep upper lateral aspect of the right breast. A tissue clip marker is seen within the calcifications. No other significant abnormalities are identified. There has been no significant change since the prior study. BI/DIAG MAMM W/CAD, UNILAT IMPRESSION: Status post stereotactic breast biopsy of the calcifications in the deep upper outer aspect of the right breast. One year follow-up mammogram recommended. (A) ASSESSMENT CATEGORY: BIRADS Category 2: Benign. A letter regarding these results will be sent to the patient by the facility within 30 days. Approximately 10% of breast cancers are not detected by mammography. A normal mammogram should not delay biopsy of a clinically suspicious abnormality. Electronically Signed: Jaxon Zhang MD at 10:54 EDT ,
== END | disposition home or self-care (01) ==
LOC: OPBI 09:23
PROVIDERS: PCP Internal Medicine; Referring Provider Surgery; Visit Provider Surgery
DX: Z12.31 Encounter for screening mammogram for malignant neoplasm of breast (principal); R92.8 Other abnormal and inconclusive findings on diagnostic imaging of breast
CPT/HCPCS: 77061; 77065; G0279

== ENCOUNTER → 2023-04-05 | Outpatient (CLI) | payer OTHER, MEDICARE, SELFPAY ==
--- NOTE | 2023-04-05 16:18 | RAD_ITS ---
INDICATION: R/O HIATAL HERNIA EXAMINATION: Frontal and lateral views of the chest. COMPARISON: Chest x-ray October 04, 2022. FINDINGS: Frontal and lateral views of the chest were obtained. Suboptimal inspiration which crowds the bronchovascular markings. The cardiac silhouette is borderline enlarged which may be secondary to suboptimal inspiration. Mild atelectasis in the lung bases bilaterally. No pleural effusion or pneumothorax. No hiatal hernia identified. RAD/Chest PA and Lateral IMPRESSION: No hiatal hernia identified. Mild bibasilar atelectasis. Electronically Signed: Mario Trujillo MD at 7:27 EDT ,
[2023-04-05 17:53] LABS: Absolute Lymphocyte Count 1.68 X10^3/uL (0.83-4.51); Absolute Neutrophil Count 3.3 X10^3/uL (2.0-7.7); Basophil# 0.01 X10^3/uL; Basophil% 0.2 % (0-1); Eosinophil# 0.34 X10^3/uL; Eosinophils% 5.8 % (0-5); Hematocrit 43.3 % (37-47); Hemoglobin 13.6 g/dL (12.0-15.0); Lymphocyte # 1.68 X10^3/ul (0.83-4.51); Lymphocyte % 28.5 % (19-41); Mean Corp Hgb Conc 31.4 g/dL (32-36); Mean Corpuscular Hgb 29.9 pg (27.0-32.0); Mean Corpuscular Volume 95.2 fL (81-99); Monocyte# 0.52 X10^3/uL; Monocyte% 8.8 % (0-10); NRBC Flagged by Analyzer 0 % (0-5); Neutrophil # 3.31 X10^3/uL (2.7-7.7); Neutrophil % 56.2 % (47-70); Platelet Count 237 K/mm3 (150-450); RBC Distribution Width CV 12.5 % (11.6-14.6); RBC Distribution Width SD 43.8 fl (35.1-43.9); Red Blood Count 4.55 M/mm3 (4.2-5.4); White Blood Count 5.9 K/mm3 (4.4-11.0)
[2023-04-05 18:29] LABS: ALB/GLOB Ratio 0.8 RATIO (0.9-2.4); AST(SGOT) 29 U/L (15-37); Alanine Aminotransfer ALT/SGPT 56 U/L (13-56); Albumin, Serum 3.1 g/dL (3.2-5.0); Alkaline Phosphatase 71 U/L (45-117); Anion Gap 4 (5-15); BUN 14 mg/dL (7-18); BUN/Creat Ratio 16.5 RATIO (10-20); Calcium,Total 8.7 mg/dL (8.5-10.1); Chloride 106 mmol/L (98-107); Creatinine, Serum 0.85 mg/dL (0.55-1.02); EST Glomerular Filtration Rate 74 mL/min (>60); Est Glom Filt Rate - Afr Amer 89 mL/min (>60); Globulin 3.9 g/dL (2.2-4.2); Glucose 109 mg/dL (74-106); Potassium 3.9 mmol/L (3.5-5.1); Sodium Level 139 mmol/L (136-145); Troponin-I HS 6 pg/mL (3.0-54.0)
== END | disposition home or self-care (01) ==
LOC: MTLAB 16:15
PROVIDERS: PCP Internal Medicine; Referring Provider Internal Medicine; Visit Provider Internal Medicine
DX: R07.9 Chest pain, unspecified (principal)
CPT/HCPCS: 36415; 71046; 80053; 84484; 85025

== ENCOUNTER → 2023-05-11 | Outpatient (CLI) | payer OTHER, MEDICARE, SELFPAY | END | disposition home or self-care (01) | LOC: RAD 12:54 | PROVIDERS: PCP Internal Medicine; Referring Provider Internal Medicine; Visit Provider Internal Medicine | DX: R13.10 Dysphagia, unspecified (principal) | CPT/HCPCS: 74230 ==

== ENCOUNTER → 2023-05-21 | Outpatient (CLI) | payer OTHER, MEDICARE, SELFPAY ==
--- NOTE | 2023-05-21 10:48 | BI_ITS ---
MAMMOGRAPHY - BILATERAL SCREENING REASON FOR EXAM: Female, 53 years old. Routine annual screening examination. PERTINENT HISTORY: Mother with breast cancer. Aunt with breast cancer. Prior right stereotactic breast biopsy. TECHNIQUE: Digital bilateral breast toro (3D mammographic acquisition) in the CC and MLO projections. 2-D mediolateral oblique (MLO) and craniocaudad (CC) views of both breasts were obtained. CAD: Full Field Digital Mammography with Computer Added Detection was performed. COMPARISON: Comparison is made with prior study of November 13, 2022 and May 04, 2022. FINDINGS: Breast Composition: The breasts are heterogeneously dense, which may obscure small masses. There are no dominant masses or suspicious calcifications. Diffuse microcalcifications are seen in the upper lateral axillary region of the right breast. A tissue clip marker is once again seen within it. No other significant abnormalities are identified. There has been no significant change since the prior study. BI/SCRN MAMM (CAD)W/TORO BILAT IMPRESSION: Stable bilateral screening mammogram. Yearly follow-up mammogram recommended. (A) ASSESSMENT CATEGORY: BIRADS Category 2: Benign. A letter regarding these results will be sent to the patient by the facility within 30 days. Approximately 10% of breast cancers are not detected by mammography. A normal mammogram should not delay biopsy of a clinically suspicious abnormality. [id number] Electronically Signed: Jaxon Zhang MD at 9:41 EST ,
--- NOTE | 2023-05-21 11:09 | ECHOCS_ITS ---
Reason For Study: Chest pain Procedure This was a 2D Doppler, Color Flow transthoracic echocardiogram. The study was technically difficult. Exam performed in department. Left Ventricle Normal LV size. Mild concentric left ventricular hypertrophy. The left ventricular ejection fraction is 45 %. Right Ventricle Normal right ventricle. Atria The left atrium is mildly enlarged. Normal right atrium. Mitral Valve Trivial mitral valve insufficiency. Tricuspid Valve Trivial tricuspid valve insufficiency. Unable to estimate RV systolic pressure due to insufficient tricuspid regurgitant envelope. Aortic Valve Trisinus/trileaflet aortic valve. Pulmonic Valve The pulmonic valve is not well visualized. Trivial pulmonic valve insufficiency. Great Vessels Normal sized aortic root. Pericardium/Pleural No pericardial effusion. Epicardial fat. Medication 22 gauge I.V. with prn adaptor inserted into right arm. Diluted definity 2ml given slow IV push to enhance endocardial definition. MMode/2D Measurements & Calculations LVIDd: 4.6 cm IVSd: 0.94 cm Ao root diam: 3.5 cm LVIDs: 3.0 cm LVPWd: 1.2 cm RVDd: 3.4 cm FS: 35.7 % LAV(MOD-bp): 40.5 ml LVAd ap4: 25.2 cm2 LVAd ap2: 20.9 cm2 LAV(MOD-bp) Indexed: 17.7 ml/m2 LVLd ap4: 6.7 cm LVLd ap2: 6.9 cm LAV(MOD-sp2): 34.3 ml EDV(MOD-sp4): 79.9 ml EDV(MOD-sp2): 53.0 ml LAV(MOD-sp4): 44.0 ml EDV(sp4-el): 80.5 ml EDV(sp2-el): 53.8 ml LVAs ap4: 20.2 cm2 LVAs ap2: 13.9 cm2 LVLs ap4: 6.7 cm LVLs ap2: 6.0 cm ESV(MOD-sp4): 51.6 ml ESV(MOD-sp2): 26.2 ml ESV(sp4-el): 51.4 ml ESV(sp2-el): 27.6 ml EF(MOD-sp4): 35.4 % EF(MOD-sp2): 50.7 % EF(sp4-el): 36.1 % SV(MOD-sp4): 28.3 ml SV(MOD-sp2): 26.9 ml SV(sp4-el): 29.0 ml LA A4 area: 16.7 cm2 LA dimension(2D): 3.7 cm RA A4 area: 13.0 cm2 TAPSE: 2.0 cm Time Measurements MV dec time: 0.19 sec Doppler Measurements & Calculations MV E max guanaco: 65.9 cm/sec Lat Peak E' [place]: 7.4 cm/sec Med Peak E' [place]: 6.2 cm/sec MV A max guanaco: 79.0 cm/sec E/E' lat: 8.9 E/E' med: 10.7 MV E/A: 0.84 Ao V2 max: 143.3 cm/sec LV V1 max: 128.0 cm/sec MV dec slope: 352.1 cm/sec2 Ao max P.2 mmHg LV V1 max P.6 mmHg PA V2 max: 87.9 cm/sec ECHO/Echo Complete W/ Contrast Interpretation Summary Mild concentric left ventricular hypertrophy. The left ventricular ejection fraction is 45-50 %. The left atrium is mildly enlarged. The study was technically difficult. Ordering Physician: Paty Catalan Referring Physician: Paty Catalan Performed By: Clarisa Joshi RDCS
== END | disposition home or self-care (01) ==
LOC: CVS 10:42
PROVIDERS: PCP Internal Medicine; Referring Provider Internal Medicine; Visit Provider Internal Medicine
DX: Z12.31 Encounter for screening mammogram for malignant neoplasm of breast (principal); R07.9 Chest pain, unspecified; Z80.3 Family history of malignant neoplasm of breast
CPT/HCPCS: 77063; 77067; 92611; 93306; Q9957; A4216; C8929

== ENCOUNTER 2023-09-03 21:13 | Emergency (ER) | payer OTHER, MEDICARE, SELFPAY ==
[2023-09-03 21:15] VITALS: BP 121/68; PULSE 85; RESP 18; TEMP 36.5; O2SAT 95; BMI 51.2
[2023-09-03 21:18] VITALS: BP 121/68; PULSE 88; RESP 18; TEMP 36.5; O2SAT 95
--- NOTE | 2023-09-03 21:39 | EDS_ITS ---
HPI History of Present Illness Chief Complaint: Abd Pain Informant: patient Narrative Narrative: Patient is a 53-year-old female with history of schizophrenia, DVT (on Eliquis), CHF and diabetes mellitus presenting with worsening lower abdominal pain. Patient states she developed pain there are 3 to 4 days ago. She saw her PCP, Dr. Catalan, and was put on Macrobid for concern of UTI. Was told that she did not in fact have a UTI and stop taking antibiotics. She feels that the pain has been worsening. She denies any associated dysuria or hematuria. She notes that she has had more frequent and looser bowel movements. She denies any blood in her stool. She denies any associated nausea or vomiting. She is been taking Tylenol for the pain. She notes that the pain is worse when she walks. She points to her pannus/suprapubic region as her area of pain. Is not aware of any history of diverticulitis. No other complaints or concerns at this time. [facility] Medical History Bipolar 1 disorder Cardiomyopathy Chest pain CHF (congestive heart failure) Diabetes Dizzy DVT (deep venous thrombosis) Eczema HTN (hypertension) Hypoxia IBS (irritable bowel syndrome) Nausea & vomiting BALDEMAR (obstructive sleep apnea) Palpitation PUD (peptic ulcer disease) Pulmonary embolism Schizophrenia Schizophrenia Stroke/cerebrovascular accident Home Medications apixaban 5 mg tablet 5 mg PO BID blood thinner 07/19/20 [History Last Taken 09/25/22] benztropine 1 mg tablet 1 mg PO BID mood 07/19/20 [History Last Taken 09/25/22] fluoxetine 20 mg capsule 20 mg PO DAILY depression 07/19/20 [History Last Taken 07/19/20] metformin 500 mg tablet,extended release 24 hr 500 mg PO DAILY dm 07/19/20 [History Last Taken 09/25/22] carvedilol 3.125 mg tablet (Coreg) 3.125 mg PO BID HEART 05/11/22 [History Last Taken 09/25/22] haloperidol 10 mg tablet 10 mg PO QHS MOOD 09/26/22 [History Last Taken 09/25/22] olanzapine 20 mg disintegrating tablet 20 mg PO QHS MOOD 09/26/22 [History Last Taken 09/25/22] cephalexin 500 mg capsule 500 mg PO TID #16 caps 04/10/23 [Rx Last Taken Unknown] Allergy/AdvReac Type Severity Reaction Status Date / Time No Known Allergies Allergy Verified 09/03/23 21:13 Family History Mother Breast cancer Aunt Breast cancer Surgical History H/O breast biopsy History of esophagogastroduodenoscopy (EGD) S/P cholecystectomy S/P dilation and curettage S/P hysterectomy S/P nasal septoplasty Social History household members: spouse housing: house Smoking Status: Former smoker Tobacco: How many years used: 4 alcohol intake: former substance use type: does not use ROS ROS ED Constitutional Constitutional ED: Denies chills or fever(s) Cardiovascular Cardiovascular: Denies chest pain Respiratory/Chest Respiratory/Chest: Denies cough Gastrointestinal Gastrointestinal: Reports abdominal pain and diarrhea; Denies nausea or vomiting Genitourinary Genitourinary ED: Denies dysuria, hematuria or urinary frequency Musculoskeletal Musculoskeletal: Denies arthralgias or myalgias Integumentary Denies rash Neurologic Neurologic: Denies headache(s) Hematologic/Lymphatic Hematologic/Lymphatic: Reports easy bleeding, easy bruising and other Details: on eliquis EXAM Physical Exam Const Vital Signs: 09/03/23 21:15 09/03/23 21:18 09/03/23 22:18 Temperature 97.7 F L 97.7 F L 97.9 F Temperature Source Temporal Temporal Temporal Pulse Rate 85 88 80 Respiratory Rate 18 18 18 Blood Pressure 121/68 H 121/68 H 126/72 H Blood Pressure Mean 85 85 90 Pulse Ox 95 95 96 Oxygen Delivery Method Room Air Room Air Room Air 09/03/23 23:00 Temperature 97.8 F Temperature Source Temporal Pulse Rate 85 Respiratory Rate 18 Blood Pressure 119/65 Blood Pressure Mean 83 Pulse Ox 95 Oxygen Delivery Method Room Air Positive well nourished, well developed and obese General Appearance ED: well developed and NAD Nutritional Appearance: obese HEENT Reports moist mucous membranes Eyes PERRL Neck supple Chest Wall inspection of chest normal and palpation of chest normal Resp normal respiratory effort and clear to auscultation bilaterally Cardio regular rate and regular rhythm GI normal to inspection, nondistended, normoactive bowel sounds Palpation: soft and tender suprapubic; Negative for mass or rebound tenderness present Back/Spine no CVA tenderness Extremity normal to inspection General Extremety ED: Negative for edema General Extremity: Negative for edema Neuro oriented x3 Sensorium / Orientation: alert Psych mental status grossly normal Skin no rashes or lesions noted and no wounds MDM MDM MDM Narrative Medical decision making narrative: Patient evaluated for lower abdominal pain is worsening for the past 3 to 4 days. She reportedly had already had a normal urinalysis. Differential includes urinary tract infection, diverticulitis, small bowel obstruction, enteritis, mesenteric adenitis and obstructing hernia. On exam I am not able to appreciate any hernia or abdominal wall defect. Will obtain lab work and CT abdomen pelvis. Vital signs are normal upon arrival. Patient remains hemodynamically stable in the emergency room. Workup largely unremarkable. CBC and CMP normal. Urinalysis is not consistent with infection. CT of the abdomen and pelvis shows no bowel obstruction or focal intra- abdominal inflammatory change. There are fat-containing umbilical hernia without inflammation. I do not think this is causing her pain at this time. In addition patient does have prominent subcutaneous soft tissue varices which could be causing her discomfort. Is encouraged to follow-up outpatient with her primary care doctor. Will take Tylenol for pain. Also been using ice to her lower abdomen. At this time there the does not appear to be an acute medical or surgical emergency going on and feel that she can safely follow-up outpatient. Lab Data Labs: Laboratory Results - last 24 hr 09/03/23 09/03/23 22:05 22:50 WBC 7.2 RBC 4.53 Hgb 13.6 Hct 41.5 MCV 91.6 MCH 30.0 MCHC 32.8 RDW Std Deviation 41.3 RDW Coeff of Pato 12.5 Plt Count 221 MPV 9.9 Immature Gran % (Auto) 0.300 Neut % (Auto) 53.6 Lymph % (Auto) 30.9 [place] % (Auto) 11.7 H Eos % (Auto) 3.2 Baso % (Auto) 0.3 Absolute Neuts (auto) 3.9 Absolute Lymphs (auto) 2.24 Nucleated RBC % 0 Sodium 141 Potassium 4.2 Chloride 105 Carbon Dioxide 31.0 Anion Gap 5 BUN 16 Creatinine 0.92 Estim Creat Clear Calc 94.96 Est GFR (MDRD) Af Amer 81 Est GFR (MDRD) Non-Af 67 BUN/Creatinine Ratio 17.3 Glucose 99 Calcium 8.9 Total Bilirubin 0.50 AST 38 H ALT 53 Alkaline Phosphatase 87 Total Protein 7.0 Albumin 3.1 L Globulin 3.9 Albumin/Globulin Ratio 0.8 L Urine Color Yellow Urine Clarity Clear Urine pH 7.0 Ur Specific [place] 1.015 Urine Protein Negative Urine Glucose (UA) Normal Urine Ketones Negative Urine Occult Blood Negative Urine Nitrite Negative Urine Bilirubin Negative Urine Urobilinogen Normal Ur Leukocyte Esterase 25 H Urine RBC 0 SEEN Urine WBC 0 SEEN Ur Squamous Epith Cells 0-5 SEEN Urine Bacteria RARE Urine Mucus 0 SEEN Radiography Diagnostic Testing: Clinical Impression(s) from Imaging Studies Abdomen/Pelvis CT 09/03/23 21:40 IMPRESSION: No bowel obstruction or focal intra-abdominal inflammatory change. Fat-containing umbilical hernia without inflammation. Electronically Signed: Jun Mcpherson MD at 23:26 EST Reading Location ID and State: [facility] / [place] Tel , Service support , Discharge Plan Triage Chief Complaint: Abd Pain ED Provider: Rachel Jenkins Dx/Rx/DC Orders Clinical Impression: Lower abdominal pain Instructions: ED Abdominal Pain Unkn Cause Fem Prescriptions: No Action carvedilol [Coreg] 3.125 mg tablet 3.125 mg PO BID Rx Instructions: must administer with a meal/food apixaban 5 MG tablet 5 mg PO BID benztropine 1 MG tablet 1 mg PO BID fluoxetine 20 MG capsule 20 mg PO DAILY metformin 500 MG tablet extended release 24 hr 500 mg PO DAILY olanzapine 20 mg tablet,disintegrating 20 mg PO QHS haloperidol 10 mg tablet 10 mg PO QHS cephalexin 500 mg capsule 500 mg PO TID Qty: 16 0RF Rx Instructions: start tonite before bedtime Primary Care Provider: Paty Catalan Referrals: Paty Catalan DO [Primary Care Provider] - Activity Restrictions/Additional Instructions: Your workup was largely normal today. No signs of urinary tract infection or other acute abnormality on your imaging. You do have some small hernias that do not seem to be causing the issues on your CT. There are varices of your abdominal wall which could be causing some discomfort. Please follow-up with your primary care doctor for this. In the meantime you can ice the area and take Tylenol. If your symptoms progress or worsen please return to the emergency room. Disposition Disposition: Home, Self Care
--- NOTE | 2023-09-03 21:40 | CT_ITS ---
INDICATION: lower abd pain, diarrhea EXAMINATION: CT ABDOMEN AND PELVIS WITH CONTRAST - CT Abdomen And Pelvis W/ Contrast Injection TECHNIQUE: Helically acquired images were obtained of the abdomen and pelvis following IV contrast. A radiation dose optimization technique was used for this scan. IV Contrast dosage and agent: 100 mL [id number] Oral contrast: None. COMPARISON: CT chest 09/26/22, chest radiograph April 05, 2023. FINDINGS: LOWER CHEST: Lung bases are clear. No cardiomegaly or pericardial effusion. LIVER: Homogeneous. No focal mass. GALLBLADDER AND BILIARY TREE: No calcified gallstones. No gallbladder distension or wall edema. No intra- or extrahepatic biliary ductal dilation. PANCREAS: No focal cystic or solid mass. SPLEEN: Normal size without focal cystic or solid mass. ADRENAL GLANDS: No nodules. KIDNEYS AND URETERS: Normal renal size and position. No hydronephrosis. PERITONEUM: No ascites or free air. No other fluid collection. BOWEL: No acute gastric finding. No small bowel distention or focal wall thickening. Normal appendix. No acute colonic finding. LYMPH NODES: No enlarged mesenteric or retroperitoneal lymph nodes. VESSELS: Aorta is non-dilated. URINARY BLADDER: Unremarkable. REPRODUCTIVE ORGANS: Absent uterus. No evidence of adnexal mass ABDOMINAL WALL: Fat-containing umbilical hernia without inflammation. No discrete abdominal or pelvic wall hernia. Prominent subcutaneous soft tissue varices. BONES: No lytic or blastic abnormality. CT/Abdomen/Pelvis W IV Cont ONLY IMPRESSION: No bowel obstruction or focal intra-abdominal inflammatory change. Fat-containing umbilical hernia without inflammation. Electronically Signed: Jun Mcpherson MD at 23:26 EST ,
[2023-09-03 22:14] LABS: Absolute Lymphocyte Count 2.24 X10^3/uL (0.83-4.51); Absolute Neutrophil Count 3.9 X10^3/uL (2.0-7.7); Basophil# 0.02 X10^3/uL; Basophil% 0.3 % (0-1); Eosinophil# 0.23 X10^3/uL; Eosinophils% 3.2 % (0-5); Hematocrit 41.5 % (37-47); Hemoglobin 13.6 g/dL (12.0-15.0); Lymphocyte # 2.24 X10^3/ul (0.83-4.51); Lymphocyte % 30.9 % (19-41); Mean Corp Hgb Conc 32.8 g/dL (32-36); Mean Corpuscular Volume 91.6 fL (81-99); Mean Platelet Vol. 9.9 fl (6.2-12.0); Monocyte# 0.85 X10^3/uL; Monocyte% 11.7 % (0-10); NRBC Flagged by Analyzer 0 % (0-5); Neutrophil # 3.88 X10^3/uL (2.7-7.7); Neutrophil % 53.6 % (47-70); Platelet Count 221 K/mm3 (150-450); RBC Distribution Width CV 12.5 % (11.6-14.6); RBC Distribution Width SD 41.3 fl (35.1-43.9); Red Blood Count 4.53 M/mm3 (4.2-5.4); White Blood Count 7.2 K/mm3 (4.4-11.0)
[2023-09-03 22:18] VITALS: BP 126/72; PULSE 80; RESP 18; TEMP 36.6; O2SAT 96
[2023-09-03 22:31] LABS: ALB/GLOB Ratio 0.8 RATIO (0.9-2.4); AST(SGOT) 38 U/L (15-37); Alanine Aminotransfer ALT/SGPT 53 U/L (13-56); Albumin, Serum 3.1 g/dL (3.2-5.0); Alkaline Phosphatase 87 U/L (45-117); Anion Gap 5 (5-15); BUN 16 mg/dL (7-18); BUN/Creat Ratio 17.3 RATIO (10-20); Calcium,Total 8.9 mg/dL (8.5-10.1); Chloride 105 mmol/L (98-107); Creatinine, Serum 0.92 mg/dL (0.55-1.02); EST Glomerular Filtration Rate 67 mL/min (>60); Est Glom Filt Rate - Afr Amer 81 mL/min (>60); Estimated Creatinine Clearance 94.96 ml/min; Globulin 3.9 g/dL (2.2-4.2); Glucose 99 mg/dL (74-106); Potassium 4.2 mmol/L (3.5-5.1); Sodium Level 141 mmol/L (136-145)
[2023-09-03 23:00] VITALS: BP 119/65; PULSE 85; RESP 18; TEMP 36.6; O2SAT 95
[2023-09-03 23:04] LABS: Mucous, Urine 0 SEEN /hpf (<or=2+); Red Blood Cells-Urine 0 SEEN /hpf (0-5); White Blood Cells 0 SEEN /hpf (0-5)
[2023-09-03 23:05] LABS: Color, Urine Yellow (Yellow); Glucose, Dipstick Normal (Normal); Ketone-Dipstick Negative (Negative); Leukocyte Esterase-Dipstick 25 /ul (Negative); Nitrite-Dipstick Negative (Negative); Occult Blood-Urine Negative /ul (Negative); Protein-Dipstick Negative (Negative); Specific Gravity, Urine 1.015 (1.002-1.030); Urine Bilirubin Dipstick Negative (Negative); Urine Clarity Clear (Clear); Urine Urobilinogen Normal (Normal)
[2023-09-03 23:13] VITALS: PULSE 75; RESP 16; O2SAT 100
[2023-09-03 23:19] LABS: Bacteria RARE /hpf (None Seen); Squamous Epithelial Cells - UA 0-5 SEEN /hpf (5-10)
[2023-09-04 00:26] VITALS: BP 145/78; PULSE 65; RESP 16; TEMP 36.4; O2SAT 100
== END 2023-09-04 00:27 | disposition home or self-care (01) ==
PROVIDERS: Emergency Provider Emergency Medicine; PCP Internal Medicine; Visit Provider Emergency Medicine
DX: R10.30 Lower abdominal pain, unspecified (principal); F20.9 Schizophrenia, unspecified; I11.0 Hypertensive heart disease with heart failure; I50.9 Heart failure, unspecified; F31.9 Bipolar disorder, unspecified; E11.9 Type 2 diabetes mellitus without complications; Z87.891 Personal history of nicotine dependence; Z86.718 Personal history of other venous thrombosis and embolism; Z79.01 Long term (current) use of anticoagulants; Z86.73 Personal history of transient ischemic attack (TIA), and cerebral infarction without residual deficits; Z79.84 Long term (current) use of oral hypoglycemic drugs; Z90.49 Acquired absence of other specified parts of digestive tract; Z90.710 Acquired absence of both cervix and uterus
CPT/HCPCS: 74177; 80053; 81001; 85025; 99282; J7040; Q9967; A4216

== ENCOUNTER → 2024-04-28 | Outpatient (CLI) | payer OTHER, MEDICARE, SELFPAY ==
--- NOTE | 2024-04-28 08:58 | US_ITS ---
STUDY: ABDOMINAL ULTRASOUND - RIGHT UPPER QUADRANT; ELASTOGRAPHY REASON FOR VISIT: Female, 54 years old. Fatty infiltration of the liver. TECHNIQUE: Ultrasound evaluation of the right upper quadrant was performed with real-time and static hanley-scale imaging. Point quantification shear wave elastography was performed ([employer]). TECHNICAL QUALITY: Limited. Examination limited due to a combination of factors including obesity and bowel gas. COMPARISON: Comparison is made with prior CT scan abdomen and pelvis dated September 03, 2023. FINDINGS: Liver: The liver measures 17.8 cm. There is increased echogenicity consistent with fatty infiltration. The bile ducts are within normal limits. There is hepatic color flow. The direction of portal flow is hepatopetal. There is no demonstrated mass lesion. Median liver stiffness measured 5.7 kPa. Gallbladder: The patient is status post cholecystectomy. Common Bile Duct (C.B.D.): The common bile duct measures 5.2 mm. Pancreas: Limited visualization due to overlying bowel gas. Right Kidney: Normal size of the right kidney. The right kidney measures 9.6 cm x 4.9 cm x 4.7 cm. Normal renal cortex. The right cortex measures 1.0 cm. There is no demonstrated renal mass or cyst. There is no right hydronephrosis. US/ABD Limited w/ Elastography IMPRESSION: 1. Liver stiffness measures 5.7 kPa compatible with F0-F1 (Normal to mild liver fibrosis) Metavir score. 2. Fatty infiltration of the liver. Electronically Signed: Jaxon Zhang MD at 10:02 EDT ,
== END | disposition home or self-care (01) ==
PROVIDERS: PCP Internal Medicine; Referring Provider Internal Medicine; Visit Provider Internal Medicine
DX: K76.0 Fatty (change of) liver, not elsewhere classified (principal)
CPT/HCPCS: 76705; 76981

== ENCOUNTER → 2024-05-22 | Outpatient (CLI) | payer OTHER, MEDICARE, SELFPAY ==
--- NOTE | 2024-05-22 14:45 | BI_ITS ---
MAMMOGRAPHY - BILATERAL SCREENING 3-D TOMOSYNTHESIS REASON FOR EXAM: Female, 54 years old. SCRN MAMM (CAD)W/TORO BILAT -- Encounter for screening mammogram for malignant neoplams of breas PERTINENT HISTORY: No significant family history. TECHNIQUE: 2-D mammograms and 3-D Tomosynthesis of the breast (s) were performed. CAD was performed. COMPARISON: 05/21/2023 FINDINGS: The breast composition is heterogeneously dense that can obscure small breast masses. Scattered benign calcifications are seen. No dense spiculated masses or suspicious microcalcifications are identified. No architectural distortion is identified. There is no skin thickening or retraction. There has been no significant change since the prior study. BI/SCRN MAMM (CAD)W/TORO BILAT IMPRESSION: No mammographic signs of malignancy. Routine yearly mammograms recommended. ASSESSMENT CATEGORY: BIRADS Category 1: Negative. A letter regarding these results will be sent to the patient by the facility within 30 days. FOLLOW UP RECOMMENDATION: Yearly follow up mammogram recommended. (A) Approximately 10% of breast cancers are not detected by mammography. A normal mammogram should not delay biopsy of a clinically suspicious abnormality. Electronically Signed: Rishi Gonzalez MD at 16:17 EST ,
== END | disposition home or self-care (01) ==
PROVIDERS: PCP Internal Medicine; Referring Provider Internal Medicine; Visit Provider Internal Medicine
DX: Z12.31 Encounter for screening mammogram for malignant neoplasm of breast (principal)
CPT/HCPCS: 77063; 77067

== ENCOUNTER 2024-07-14 22:44 | Emergency (ER) | payer BC, MEDICARE, SELFPAY ==
[2024-07-14 22:44] VITALS: BP 141/97; PULSE 83; RESP 16; TEMP 36.6; O2SAT 96; BMI 53.1
--- NOTE | 2024-07-14 23:23 | EX.ED.DYSGE1 ---
HPI History of Present Illness Chief Complaint: Lower Extremity Injury Informant: patient Narrative Narrative: Patient is a 54-year-old female with past medical history of hypertension bipolar disorder and schizophrenia as well as previous DVT. She states that she is to take Eliquis secondary to her previous DVT. She states she did not take it for about 1 week simply because she forgot. She states she has been taking as directed recently but yesterday felt a pinch in the left thigh region and after that she has had persistent pain in the left leg. She states that she is concerned she may have a repeat blood clot in the leg and therefore comes in for evaluation. [facility] Medical History Hypoxia Schizophrenia Diabetes Chest pain Stroke/cerebrovascular accident IBS (irritable bowel syndrome) PUD (peptic ulcer disease) Cardiomyopathy Eczema Pulmonary embolism Schizophrenia Bipolar 1 disorder BALDEMAR (obstructive sleep apnea) CHF (congestive heart failure) HTN (hypertension) Nausea & vomiting DVT (deep venous thrombosis) Palpitation Dizzy Home Medications ?Medication ?Instructions ?Recorded ?Last Taken ?Type apixaban 5 mg tablet 5 mg PO BID blood thinner 07/19/20 09/25/22 History benztropine 1 mg tablet 1 mg PO BID mood 07/19/20 09/25/22 History fluoxetine 20 mg capsule 20 mg PO DAILY depression 07/19/20 07/19/20 History metformin 500 mg tablet,extended 500 mg PO DAILY dm 07/19/20 09/25/22 History release 24 hr carvedilol 3.125 mg tablet (Coreg) 3.125 mg PO BID HEART 05/11/22 09/25/22 History haloperidol 10 mg tablet 10 mg PO QHS MOOD 09/26/22 09/25/22 History olanzapine 20 mg disintegrating 20 mg PO QHS MOOD 09/26/22 09/25/22 History tablet cephalexin 500 mg capsule 500 mg PO TID #16 caps 10/05/22 Unknown Rx Allergy/AdvReac Type Severity Reaction Status Date / Time No Known Allergies Allergy Verified 09/03/23 21:13 Family History Mother Breast cancer Aunt Breast cancer Surgical History H/O breast biopsy History of esophagogastroduodenoscopy (EGD) S/P cholecystectomy S/P dilation and curettage S/P hysterectomy S/P nasal septoplasty Social History household members: spouse housing: house Smoking Status: Unknown if ever smoked Tobacco: How many years used: 4 alcohol intake: former substance use type: does not use ROS ROS ED Constitutional Constitutional ED: Denies chills or fever(s) Eyes Eyes: Denies change in vision ENT ENT ED: Denies sore throat Cardiovascular Cardiovascular: Denies chest pain, palpitations or racing heartbeat Respiratory/Chest Respiratory/Chest: Denies cough or dyspnea Gastrointestinal Gastrointestinal: Denies abdominal pain, diarrhea, nausea or vomiting Genitourinary Genitourinary ED: Denies dysuria Musculoskeletal Musculoskeletal: Reports other Details: Positive left leg pain Integumentary Denies Abrasions or rash Neurologic Neurologic: Denies headache(s) Hematologic/Lymphatic Hematologic/Lymphatic: Reports easy bleeding and easy bruising EXAM Physical Exam Const Vital Signs: 07/14/24 22:44 Temperature 98 F Temperature Source Oral Pulse Rate 83 Respiratory Rate 16 Blood Pressure 141/97 H Blood Pressure Mean 111 Pulse Ox 96 Oxygen Delivery Method Room Air Positive well nourished, well developed and obese General Appearance ED: well developed; Negative for pallor Nutritional Appearance: obese HEENT HEENT Narrative: Normocephalic atraumatic Eyes PERRL and EOMs intact bilaterally General Eye ED: Negative for scleral icterus Neck supple Neck Narrative: No nuchal rigidity or meningeal signs Resp normal respiratory effort and clear to auscultation bilaterally Cardio regular rate and regular rhythm Extremity Extremity Narrative: There is asymmetric swelling of the left thigh compared to right. However no asymmetric erythema or warmth. No abscess or cellulitis formation noted. No lymphangitic streaking. Compartments are soft and compressible going against compartment syndrome. Negative Homans' sign bilaterally Neuro oriented x3, CN's II-XII intact bilaterally and no sensory deficits noted Sensorium / Orientation: alert Motor Exam: strength 5/5 throughout Psych mental status grossly normal Skin no rashes or lesions noted and no wounds General Skin Exam: Negative for jaundice or pallor MDM MDM MDM Narrative Medical decision making narrative: Patient arrived to the ER slightly hypertensive but otherwise with stable vital. She reported pain in the left leg and had concern for recurrent DVT. As there is asymmetric swelling there is concern for this. Physical exam does not show any signs of secondary infection such as cellulitis or abscess and even though she reported pain began after a pinching activity there does not appear to be any type of insect or animal bite. The patient denies any recent trauma such as a fall or twisting motion and physical exam does not reveal any signs of joint effusion or ligamentous laxity. Therefore I do not feel there is need for an x-ray. With her history of DVT and asymmetric swelling there is concern for this but patient is currently back on her Eliquis which would be the treatment of choice if she had a DVT. She is not tachycardic she is not hypoxic she does not have chest pain so my concern for a progression or propagation of a PE is low and do not feel need for a CTA. As I cannot perform a venous duplex at this time of night to confirm a potential DVT she will be given an outpatient order form. She was advised to continue her Eliquis as directed as this is the treatment of choice for her potential problem. 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 Instructions: DVT Dc Prescriptions: No Action carvedilol [Coreg] 3.125 mg tablet 3.125 mg PO BID Rx Instructions: must administer with a meal/food apixaban 5 MG tablet 5 mg PO BID benztropine 1 MG tablet 1 mg PO BID fluoxetine 20 MG capsule 20 mg PO DAILY metformin 500 MG tablet extended release 24 hr 500 mg PO DAILY olanzapine 20 mg tablet,disintegrating 20 mg PO QHS haloperidol 10 mg tablet 10 mg PO QHS cephalexin 500 mg capsule 500 mg PO TID Qty: 16 0RF Rx Instructions: start tonite before bedtime Other Ambulatory Orders: Venous Duplex US, Unilateral (Stat) Facility: [facility] - Location: [facility] Ordered By: Dr. Tayo Lewis Primary Care Provider: Paty Catalan Referrals: Paty Catalan DO [Primary Care Provider] - Activity Restrictions/Additional Instructions: Please obtain your outpatient venous duplex to document if there is or is not a blood clot causing your left leg pain. In the meantime because of your history of previous DVTs continue Eliquis twice a day as directed. If you develop chest pain a fever or have any further concerns please return for repeat evaluation Print Language: Belarusian Disposition Disposition: Home, Self Care Discharge Date/Time: 07/14/24 23:50
[2024-07-14] MEDS: oxyCODONE 5 MG Tablet 10 MG PO (23:49)
== END 2024-07-14 23:50 | disposition home or self-care (01) ==
LOC: ED 23:34
PROVIDERS: Emergency Provider Emergency Medicine; PCP Internal Medicine; Visit Provider Emergency Medicine
DX: M79.605 Pain in left leg (principal); I11.0 Hypertensive heart disease with heart failure; I50.9 Heart failure, unspecified; E11.9 Type 2 diabetes mellitus without complications; Z79.899 Other long term (current) drug therapy; Z79.01 Long term (current) use of anticoagulants; Z86.718 Personal history of other venous thrombosis and embolism; Z86.73 Personal history of transient ischemic attack (TIA), and cerebral infarction without residual deficits; Z79.84 Long term (current) use of oral hypoglycemic drugs; Z90.49 Acquired absence of other specified parts of digestive tract; Z90.710 Acquired absence of both cervix and uterus
CPT/HCPCS: 99282

== ENCOUNTER → 2024-07-15 | Outpatient (CLI) | payer BC, MEDICARE, SELFPAY ==
--- NOTE | 2024-07-15 11:59 | VDLE_ITS ---
Reason For Study: Left leg pain RIGHT LEFT CFV is compressible, spontaneous, phasic, GSV is normal. competent and demonstrates normal CFV is compressible, spontaneous, phasic, augmentation. competent, and demonstrates normal Procedure augmentation. This is a venous duplex using B-mode, color FV is compressible, spontaneous, phasic, flow and spectral Doppler. competent and demonstrates normal Exam performed in department. augmentation. A preliminary report was called and/or faxed POP V is compressible, spontaneous, phasic, to PCP: Dr. Catalan. Patient seen as next day competent and demonstrates normal ED. augmentation. T/P Trunk is compressible. PTV is compressible. LT PerV is compressible. VL/Venous Duplex US, Unilateral Interpretation Summary Deep veins of the left lower extremity are patent and compressible segmentally. There is no evidence of left lower extremity deep vein thrombosis. Valvular competence appears intac t within the proximal deep venous system on the left . The left great saphenous vein appears patent a nd compressible segmentally. The right common femoral vein is patent and compressible . Ordering Physician: Tayo Lewis Referring Physician: Paty Catalan M.D. Performed By: Shivani Garcia RVT
== END | disposition home or self-care (01) ==
LOC: US 11:55
PROVIDERS: PCP Internal Medicine; Visit Provider Emergency Medicine
DX: M79.605 Pain in left leg (principal)
CPT/HCPCS: 93971

== ENCOUNTER 2024-08-17 19:27 | Emergency (ER) | payer BC, MEDICARE, SELFPAY ==
[2024-08-17 19:29] VITALS: BP 110/69; PULSE 119; RESP 21; TEMP 37; O2SAT 94; BMI 50.8
[2024-08-17 20:34] VITALS: BP 111/75; PULSE 109; RESP 24; TEMP 36.9; O2SAT 94
--- NOTE | 2024-08-17 20:59 | CT_ITS ---
PROCEDURE: ABDOMEN/PELVIS W IV CONT ONLY TECHNIQUE: Abdomen and pelvis CT with intravenous contrast. IV CONTRAST: 94 cc of Isovue 370 contrast. COMPARISON: 09/03/2023 CT. FINDINGS: Lung bases: Clear Liver: Unremarkable. Gallbladder: Surgically absent gallbladder. Spleen: Unremarkable. Pancreas: Unremarkable. Adrenals: Unremarkable. Kidneys: Unremarkable. Bladder: Unremarkable. Reproductive Organs: Surgically absent uterus. Bowel: Unremarkable. Appendix: Normal. Lymph nodes: No suspicious lymph node enlargement. Vasculature: Major vascular structures are unremarkable. Peritoneum / Retroperitoneum: No ascites. No free air. Bones: Unremarkable. Fat containing umbilical hernia. CT/Abdomen/Pelvis W IV Cont ONLY IMPRESSION: No acute abnormalities of the abdomen and pelvis. Fat containing umbilical hernia. One or more dose reduction techniques were used (e.g., Automated exposure contr ol, adjustment of the mA and/or kV according to patient size, use of iterative reconstruction technique). Reading Location: [place] [address]
--- NOTE | 2024-08-17 21:00 | EX.ED.DYSGE1 ---
HPI History of Present Illness Chief Complaint: General Illness Narrative Narrative: 54-year-old female past medical history of type 2 diabetes, bipolar disorder presents with nausea, vomiting, and diarrhea that started around 1:00 this morning. States she has had too many episodes to count of her diarrhea and vomiting that started at the same time. States she felt feverish at home. Past surgical history does include cholecystectomy. Per RN, she vomited in triage. She states she continues to have diarrhea and may also feel weak. She states she feels short of breath as well, and she has CPAP at home that she states she cannot use because it does not work. [facility] Medical History Hypoxia Schizophrenia Diabetes Chest pain Stroke/cerebrovascular accident IBS (irritable bowel syndrome) PUD (peptic ulcer disease) Cardiomyopathy Eczema Pulmonary embolism Schizophrenia Bipolar 1 disorder BALDEMAR (obstructive sleep apnea) CHF (congestive heart failure) HTN (hypertension) Nausea & vomiting DVT (deep venous thrombosis) Palpitation Dizzy Home Medications ?Medication ?Instructions ?Recorded ?Last Taken ?Type apixaban 5 mg tablet 5 mg PO BID blood thinner 07/19/20 09/25/22 History benztropine 1 mg tablet 1 mg PO BID mood 07/19/20 09/25/22 History fluoxetine 20 mg capsule 20 mg PO DAILY depression 07/19/20 07/19/20 History metformin 500 mg tablet,extended 500 mg PO DAILY dm 07/19/20 09/25/22 History release 24 hr carvedilol 3.125 mg tablet (Coreg) 3.125 mg PO BID HEART 05/11/22 09/25/22 History haloperidol 10 mg tablet 10 mg PO QHS MOOD 09/26/22 09/25/22 History olanzapine 20 mg disintegrating 20 mg PO QHS MOOD 09/26/22 09/25/22 History tablet cephalexin 500 mg capsule 500 mg PO TID #16 caps 10/05/22 Unknown Rx ondansetron 4 mg disintegrating 4 mg PO Q8H PRN PRN Nausea #10 tabs 08/17/24 Unknown Rx tablet Allergy/AdvReac Type Severity Reaction Status Date / Time No Known Allergies Allergy Verified 08/17/24 20:20 Family History Mother Breast cancer Aunt Breast cancer Surgical History H/O breast biopsy History of esophagogastroduodenoscopy (EGD) S/P dilation and curettage S/P hysterectomy S/P nasal septoplasty S/P cholecystectomy Social History household members: spouse housing: house Smoking Status: Former smoker Tobacco: How many years used: 4 alcohol intake: former substance use type: does not use ROS ROS ED ROS Narrative Review of systems positive for subjective fever, nausea, vomiting, and diarrhea as well as shortness of breath. No cough or chest pain. No exacerbating or alleviating factors. EXAM Physical Exam Narrative Exam Narrative: Afebrile. Vital signs noted. Nontoxic-appearing. Cardiovascular examination reveals mild tachycardia. Lungs are clear to auscultation bilaterally. Abdomen is soft, nontender, and obese without guarding or rebound. Positive bowel sounds. Neurological examination is nonfocal and nonlateralizing. Const Vital Signs: 08/17/24 19:29 08/17/24 20:20 08/17/24 20:34 Temperature 98.6 F 98.4 F Temperature Source Oral Oral Pulse Rate 119 H 109 H Respiratory Rate 21 H 24 H Respiratory Effort Normal Non-Labored Respiratory Pattern Normal Blood Pressure 110/69 111/75 Blood Pressure Mean 82 87 Pulse Ox 94 94 Oxygen Delivery Method Room Air Room Air 08/17/24 22:00 Temperature 98.5 F Temperature Source Oral Pulse Rate 104 H Respiratory Rate 16 Respiratory Effort Respiratory Pattern Blood Pressure 118/67 Blood Pressure Mean 84 Pulse Ox 92 Oxygen Delivery Method Room Air MDM MDM MDM Narrative Medical decision making narrative: Differential diagnosis includes but not limited to gastroenteritis versus pancreatitis versus norovirus versus other gastroenteritis. I have lower suspicion for bowel obstruction. Comprehensive workup was pursued. With suspicion of mild dehydration she was bolused normal saline 1 L intravenously. I reviewed her laboratory work and she has normal white count of 7.7 with hemoglobin slightly hemoconcentrated at 15.9 with hematocrit 47.2. Platelet count normal at 205. Sodium normal at 137 with potassium 3.8, BUN of 19 and creatinine 1.07. Glucose is elevated at 159 but she has normal anion gap of 8 so I doubt DKA or HON K. Lipase is low at 16 so I doubt pancreatitis. AST slightly elevated at 44 with ALT of 58 which I think is nonspecific. CT of the abdomen and pelvis with IV contrast obtained and I reviewed the radiology report which shows no acute process in the abdomen and pelvis. She does have an umbilical hernia. It contains fat. At this point in time, I feel she can be discharged to follow-up with her primary care provider. She was written a prescription for Zofran ODT's. Return instructions to the emergency department were reviewed. Disposition is discharged home in stable condition. History & Record Review Discussion w/independent historian: Patient Lab Data Attestation: I reviewed the patient's lab results. Labs: Laboratory Results - last 24 hr 08/17/24 21:15 WBC 7.7 RBC 5.20 Hgb 15.9 H Hct 47.2 H MCV 90.8 MCH 30.6 MCHC 33.7 RDW Std Deviation 43.0 RDW Coeff of Pato 13.0 Plt Count 205 MPV 9.7 Immature Gran % (Auto) 0.400 Neut % (Auto) 86.6 H Lymph % (Auto) 6.7 L Moffat % (Auto) 5.9 Eos % (Auto) 0.3 Baso % (Auto) 0.1 Absolute Neuts (auto) 6.6 Absolute Lymphs (auto) 0.51 L Nucleated RBC % 0 Sodium 137 Potassium 3.8 Chloride 107 Carbon Dioxide 22.0 Anion Gap 8 BUN 19 H Creatinine 1.07 H Estim Creat Clear Calc 80.28 Est GFR (MDRD) Af Amer 68 Est GFR (MDRD) Non-Af 56 L BUN/Creatinine Ratio 17.8 Glucose 159 H Calcium 8.5 Total Bilirubin 1.30 H AST 44 H ALT 58 H Alkaline Phosphatase 89 Total Protein 7.9 Albumin 3.2 Globulin 4.7 H Albumin/Globulin Ratio 0.7 L Lipase 16 L Radiography Diagnostic Testing: Clinical Impression(s) from Imaging Studies Abdomen/Pelvis CT 08/17/24 20:59 IMPRESSION: No acute abnormalities of the abdomen and pelvis. Fat containing umbilical hernia. One or more dose reduction techniques were used (e.g., Automated exposure control, adjustment of the mA and/or kV according to patient size, use of iterative reconstruction technique). Reading Location: [place] [address] Discharge Plan Triage Chief Complaint: General Illness ED Provider: Josef Gardner Dx/Rx/DC Orders Clinical Impression: Nausea, vomiting, and diarrhea, Shortness of breath Instructions: ED Dyspnea, ED Vomit Diarrhea Nonspec Adult Prescriptions: New ondansetron 4 mg tablet,disintegrating 4 mg PO Q8H PRN PRN (Reason: Nausea) Qty: 10 0RF No Action carvedilol [Coreg] 3.125 mg tablet 3.125 mg PO BID Rx Instructions: must administer with a meal/food apixaban 5 MG tablet 5 mg PO BID benztropine 1 MG tablet 1 mg PO BID fluoxetine 20 MG capsule 20 mg PO DAILY metformin 500 MG tablet extended release 24 hr 500 mg PO DAILY olanzapine 20 mg tablet,disintegrating 20 mg PO QHS haloperidol 10 mg tablet 10 mg PO QHS cephalexin 500 mg capsule 500 mg PO TID Qty: 16 0RF Rx Instructions: start tonite before bedtime Primary Care Provider: Paty Catalan Referrals: Paty Catalan, [Primary Care Provider] - 3-5 Days if not improving Activity Restrictions/Additional Instructions: Clear liquid diet, advance as tolerated. He had a negative CT today for any acute pathology. Drink plenty of oral fluids. Follow-up with your primary care provider. Print Language: Citizen Of [place] Disposition Disposition: Home, Self Care
[2024-08-17] MEDS: Ondansetron 4 MG/2 ML Vial IV (21:22)
[2024-08-17] MEDS: 0.9% Normal Saline (1000mL) 1,000 ML 999 ML IV (21:22)
[2024-08-17 21:31] LABS: Absolute Lymphocyte Count 0.51 X10^3/uL (0.83-4.51); Absolute Neutrophil Count 6.6 X10^3/uL (2.0-7.7); Basophil# 0.01 X10^3/uL; Basophil% 0.1 % (0-1); Eosinophil# 0.02 X10^3/uL; Eosinophils% 0.3 % (0-5); Hematocrit 47.2 % (37-47); Hemoglobin 15.9 g/dL (12.0-15.0); Lymphocyte # 0.51 X10^3/ul (0.83-4.51); Lymphocyte % 6.7 % (19-41); Mean Corp Hgb Conc 33.7 g/dL (32-36); Mean Corpuscular Hgb 30.6 pg (27.0-32.0); Mean Corpuscular Volume 90.8 fL (81-99); Mean Platelet Vol. 9.7 fl (6.2-12.0); Monocyte# 0.45 X10^3/uL; Monocyte% 5.9 % (0-10); NRBC Flagged by Analyzer 0 % (0-5); Neutrophil # 6.64 X10^3/uL (2.7-7.7); Neutrophil % 86.6 % (47-70); POSITIVE DIFFERENTIAL YES; Platelet Count 205 K/mm3 (150-450); White Blood Count 7.7 K/mm3 (4.4-11.0)
[2024-08-17 21:56] LABS: ALB/GLOB Ratio 0.7 RATIO (0.9-2.4); AST(SGOT) 44 U/L (15-37); Alanine Aminotransfer ALT/SGPT 58 U/L (13-56); Albumin, Serum 3.2 g/dL (3.2-5.0); Alkaline Phosphatase 89 U/L (45-117); Anion Gap 8 (5-15); BUN 19 mg/dL (7-18); BUN/Creat Ratio 17.8 RATIO (10-20); Calcium,Total 8.5 mg/dL (8.5-10.1); Chloride 107 mmol/L (98-107); Creatinine, Serum 1.07 mg/dL (0.55-1.02); EST Glomerular Filtration Rate 56 mL/min (>60); Est Glom Filt Rate - Afr Amer 68 mL/min (>60); Estimated Creatinine Clearance 80.28 ml/min; Globulin 4.7 g/dL (2.2-4.2); Glucose 159 mg/dL (74-106); Lipase 16 U/L (73-393); Potassium 3.8 mmol/L (3.5-5.1); Protein, Total 7.9 g/dL (6.4-8.2); Sodium Level 137 mmol/L (136-145)
[2024-08-17 22:00] VITALS: BP 118/67; PULSE 104; RESP 16; TEMP 36.9; O2SAT 92
--- NOTE | 2024-08-17 22:10 | RAD_ITS ---
PROCEDURE: CHEST 1 VIEW (PORTABLE) REASON FOR EXAM: Shortness of breath. TECHNIQUE: Frontal view of the chest. COMPARISON: 04/05/2023. FINDINGS: The cardiac and mediastinal contours are normal. Cephalization of the pulmonary vessels suspicious for vascular congestion. RAD/Chest 1 View (Portable) IMPRESSION: Possible vascular congestion. Reading Location: [place] [address]
[2024-08-17 23:10] VITALS: BP 128/76; PULSE 104; RESP 18; TEMP 36.9; O2SAT 94
== END 2024-08-17 23:34 | disposition home or self-care (01) ==
PROVIDERS: Emergency Provider Emergency Medicine; PCP Internal Medicine; Visit Provider Emergency Medicine
DX: R11.2 Nausea with vomiting, unspecified (principal); F20.9 Schizophrenia, unspecified; I50.9 Heart failure, unspecified; I11.0 Hypertensive heart disease with heart failure; F31.9 Bipolar disorder, unspecified; E11.9 Type 2 diabetes mellitus without complications; Z90.710 Acquired absence of both cervix and uterus; R19.7 Diarrhea, unspecified; Z87.891 Personal history of nicotine dependence; Z90.49 Acquired absence of other specified parts of digestive tract; Z86.73 Personal history of transient ischemic attack (TIA), and cerebral infarction without residual deficits; Z79.84 Long term (current) use of oral hypoglycemic drugs; R06.02 Shortness of breath
CPT/HCPCS: 71045; 74177; 80053; 83690; 85025; 96361; 96374; 99283; Q9967; A4216; J2405

== ENCOUNTER 2024-08-31 12:30 | Outpatient (RCR) | payer BC, MEDICARE, SELFPAY ==
--- NOTE | 2024-08-02 12:25 | HP.PTEVAL_ITS ---
Patient's Visit Information Visit Information Visit Information: COOPER NIELSEN is a 54 year old F referred to Physical Therapy by Dr. Paty Catalan DO with a diagnosis of GREATER TROCHANTERIC BURSITIS ,IT BAND. Date of Evaluation: 08/02/24 Physical Therapist: Irineo Ty, PT, Cert MDT, OCS Visit Plan Frequency: 2x /Week Duration: 4 Weeks Plan: PT INTERVENTIONS LE FLEXABILITY ,CORE STRENGTHENING ,HIP STRENGTHENING ,STICK IT BAND AND MODALITIES NEEDED Subjective Subjective: This 54 y/o female presents to physical therapy with IT band pain and hip bursitis. Patient has had left hip pain several months and back pain many years. Seen DR clem PT . Patient pain located lateral hip . Aggravating standing/walking ,bending ,lifting . Alleviating factors rest . Coughing/sneezing -. Bowel /bladder -.Patient is unable to squat adn kneel and difficulty with stairs. Patient becomes worse after < 5mins walking. Patient has paresthesia/tingling left leg. Symptoms affects sleeping. Patient has tried Aquatic therapy . Patient has not seen any formal tx with chiropractic adn pain management. Patient has comormities influences condition. Patient condition affects QOL and function. Objective Objective: POSTURE: mild forward posture GAIT: reciprocal pattern mild forward posture NEURO: c/o paresthesia/tingling ,reflexes L3-4,L4-5,L5-S1 1/3 PALPATION: tender I T band ,greater trochanter PROM HIP : hip IR < 5 degrees MMT: quads/hams 4/5 ,hip flexion 4-/5 ,hip abd 3+/5 ,ankle LUMBAR ROM: flexion MOD loss ,extension mod/severe loss ,side glides mod loaa Special Tests L/S Slump test left side: Negative L/S Slump test right side: Negative L/S Left Straight Leg Raise: Negative L/S Right Straight Leg Raise: Negative L Hip Scour: Negative L Hip MARJ - Intraarticular Pathology: Negative L Hip Trendelenberg - Glut Medius: Negative Balance/Special Test Scores Oswestry Low Back Score: 30 Goals Goal 1:: Patient to be I with HEP for hip/back Goal Time Frame: 4-6 Weeks Goal 2:: Patient to improve back oswestry score 5 points to improve function Goal Time Frame: 4-6 Weeks Goal 3:: Patient to improve hip ROM by 5 degrees to improve function Goal Time Frame: 4-6 Weeks Goal 4:: Patient be able to walk/stand > 10mins with less pain left leg Goal 5:: Patient improve lumbar ROM for function of recovery to put on shoes Goal Time Frame: 4-6 Weeks Rehabilitation Potential Physical Therapy Diagnosis: This patient has h.o back pain and IT band pain with pain with positioning and motion with weakness in hips and decrease ROM thus benefit from skilled PT Rehabilitation Potential: Fair Anticipated Interventions Patient/Client Instruction: Educate patient on: Condition and Plan of Care For the Purpose of:: To decrease pain, To increase ROM, To improve muscle performance and motor function, To improve ability to perform ADL's, To increase tolerance to activity/condition/position, To improve ability of physical actions for home/community/work/leisure, To improve health of tissue, To decrease soft tissue restriction and To increase flexibility/ROM Therapeutic Exercise to Include: Strength training, Postural training, Flexibilty training, Dynamic Lumbar Stabilization and Fátima Exercises For the Purpose of:: To decrease pain, To increase ROM, To improve muscle performance and motor function, To improve ability to perform ADL's, To increase tolerance to activity/condition/position, To improve ability of physical actions for home/community/work/leisure, To improve health of tissue, To decrease soft tissue restriction, To increase flexibility/ROM, To improve endurance and To improve balance Manual Therapy Techniques to Include: Manual lymph drainage, Mobilization and Soft tissue mobilization Comment: STICK ROLL IT BAND For the Purpose of:: To decrease pain TENS: Yes IF ES: Yes Cryotherapy (ice pack, ice massage): Yes Thermo therapy (hot pack): Yes Ultrasound (thermal/non thermal): Yes For the Purpose of:: To decrease pain, To increase ROM, To improve nutrient delivery to tissue, To increase oxygenation perfusion, To improve gait and locomotor functions and To decrease soft tissue restriction Text: Thank you for the opportunity to evaluate your patient. For Medicare and Medicare HMO plans, please review the plan of care and approve it. It will need to be FAXED BACK to us at [phone] for Medicare purposes. For Medicare only, by signing this I certify the plan of care. Please let me know if there are questions or concerns regarding this plan of care. Physician Signature: Date:
--- NOTE | 2024-08-31 12:52 | HP.PTDCSUM ---
Discharge Summary D/C summary: It has been my pleasure to treat COOPER NIELSEN referred by Dr. Paty Catalan DO, with the diagnosis of GREATER TROCHANTERIC BURSITIS ,IT BAND for a total of 8 visit(s). Discharge Date: 08/31/24 Please see the following information for a summary of their discharge status. Subjective Subjective: Intermittent pain in back,,hip pain is better Pain Back Pain: Pain Intensity (Out of 10): 2 Overall Improvement % Improvement: 75 Objective Objective/Function: POSTURE: mild forward posture GAIT: reciprocal pattern mild forward posture NEURO: c/o paresthesia/tingling ,reflexes L3-4,L4-5,L5-S1 1/3 PALPATION: tender I T band ,greater trochanter PROM HIP : hip IR < 10 degrees MMT: quads/hams 4/5 ,hip flexion 4-/5 ,hip abd 3+/5 ,ankle LUMBAR ROM: flexion min loss ,extension min loss ,side glides min loss Goals Goal 1:: Patient to be I with HEP for hip/back Goal Progress: Goal Met Goal 2:: Patient to improve back oswestry score 5 points to improve function Goal Progress: Goal Met Goal 3:: Patient to improve hip ROM by 5 degrees to improve function Goal Progress: Goal Met Goal 4:: Patient be able to walk/stand > 10mins with less pain left leg Goal Progress: Goal Met Goal 5:: Patient improve lumbar ROM for function of recovery to put on shoes Goal Progress: Goal Met Plan Plan: D/C D/C Information Discharge Comments: HEP d/c sentence: If there are questions or concerns regarding this patient's physical therapy, please feel free to call me at [phone]. Thank you for the referral of this patient. Sincerely, Irineo Ty, PT, Cert MDT, OCS Balance/Gait/Functional tests Balance/Special Test Scores Oswestry Low Back Score: 30 Improvement % Improvement: 75
== END 2024-08-31 19:00 | disposition home or self-care (01) ==
LOC: PT 12:30
PROVIDERS: PCP Internal Medicine; Referring Provider Internal Medicine; Visit Provider Internal Medicine
DX: M70.62 Trochanteric bursitis, left hip (principal); M76.30 Iliotibial band syndrome, unspecified leg
CPT/HCPCS: 97110; 97162

== ENCOUNTER 2024-11-06 22:30 | Emergency (ER) | payer BC, MEDICARE, SELFPAY ==
[2024-11-06 22:32] VITALS: BP 131/81; PULSE 72; RESP 17; TEMP 36.8; O2SAT 99
--- NOTE | 2024-11-06 23:42 | EX.ED.DYSGE1 ---
HPI History of Present Illness Chief Complaint: Lower Extremity Injury [facility] Medical History Hypoxia Schizophrenia Diabetes Chest pain Stroke/cerebrovascular accident IBS (irritable bowel syndrome) PUD (peptic ulcer disease) Cardiomyopathy Eczema Pulmonary embolism Schizophrenia Bipolar 1 disorder BALDEMAR (obstructive sleep apnea) CHF (congestive heart failure) HTN (hypertension) Nausea & vomiting DVT (deep venous thrombosis) Palpitation Dizzy Home Medications ?Medication ?Instructions ?Recorded ?Last Taken ?Type apixaban 5 mg tablet 5 mg PO BID blood thinner 07/19/20 09/25/22 History benztropine 1 mg tablet 1 mg PO BID mood 07/19/20 09/25/22 History fluoxetine 20 mg capsule 20 mg PO DAILY depression 07/19/20 07/19/20 History metformin 500 mg tablet,extended 500 mg PO DAILY dm 07/19/20 09/25/22 History release 24 hr carvedilol 3.125 mg tablet (Coreg) 3.125 mg PO BID HEART 05/11/22 09/25/22 History haloperidol 10 mg tablet 10 mg PO QHS MOOD 09/26/22 09/25/22 History olanzapine 20 mg disintegrating 20 mg PO QHS MOOD 09/26/22 09/25/22 History tablet cephalexin 500 mg capsule 500 mg PO TID #16 caps 10/05/22 Unknown Rx ondansetron 4 mg disintegrating 4 mg PO Q8H PRN PRN Nausea #10 tabs 08/17/24 Unknown Rx tablet Allergy/AdvReac Type Severity Reaction Status Date / Time No Known Allergies Allergy Verified 11/06/24 22:31 Family History Mother Breast cancer Aunt Breast cancer Surgical History H/O breast biopsy History of esophagogastroduodenoscopy (EGD) S/P dilation and curettage S/P hysterectomy S/P nasal septoplasty S/P cholecystectomy Social History household members: spouse housing: house Smoking Status: Former smoker Tobacco: How many years used: 4 alcohol intake: former substance use type: does not use EXAM Physical Exam Const Vital Signs: 11/06/24 22:32 Temperature 98.2 F Temperature Source Oral Pulse Rate 72 Respiratory Rate 17 Blood Pressure 131/81 H Blood Pressure Mean 97 Pulse Ox 99 Oxygen Delivery Method Room Air [facility] [place] Narr[place] Medical decision making narrative: HISTORY OF PRESENT ILLNESS: Chief complaint: Left knee pain 54-year-old female presents concern for left knee pain REVIEW OF SYSTEMS: Pertinent positives: Knee pain Pertinent negatives: Head trauma, LOC, hip pain or ankle pain PHYSICAL EXAM: Nursing triage notes reviewed, Vital signs reviewed Constitutional: please see mdm Extremities: No edema, no deformities, patellar with normal lie, intact conscious tendon complex, intact ligamentous structures and anterior drawer testing, posterior drawer testing, valgus and varus stress testing. No calf tenderness. No tenderness behind the knee. Left lower extremity is neurovascularly intact. Compartments are soft. Neuro: Intact sensation L1-S1 dermatomal distributions. Intact 5/5 strength in hip flexion (T12-L3). Knee extension (L2-L4). Ankle dorsiflexion (L4-L5). Ankle plantar flexion (S1). Great toe extension (L5). 2+ patellar and Achilles DTRs. Skin: No rash or lesions noted MEDICAL DECISION MAKING: Chief Complaint: please see HPI External records reviewed: Reviewed prior imaging studies Factors affecting care: Schizophrenia, bipolar disorder, CHF, hypertension, DVT on Eliquis Social determinants of health: History of mental health disorder History obtained from others: EMS Consults: none [facility] Narrative: The patient was initially hemodynamically stable, afebrile and nontoxic-appearing. Exam with some TTP over left knee but intact quad tendon complex, normal patellar lie. No significant compartment tenderness. No calf tenderness. No obvious gross deformities I considered the following differential diagnosis: Knee sprain, strain I obtained an x-ray of the left knee and gave Tylenol and ibuprofen for symptomatic relief ALL IMAGES (IF OBTAINED) HAVE BEEN PERSONALLY REVIEWED AND INTERPRETED BY MYSELF. X-ray left knee was read reviewed person myself showed no evidence obvious bony abnormality such as fracture or dislocation. X-ray left knee is pending. Signed out to overnight physician pending x-ray result. The synthesis of the patient's history, physical exam, labs images suggest likely left knee sprain. Patient was given compression, ice, rest and elevation instructions. Given close outpatient follow-up with PCP for confirmatory MRI for any ligamentous injury. The patient and/or family, caregivers express understanding. The patient and/or family, caregivers agrees with the plan. Shared decision making: I will have a discussion with the patient and or visitors regarding risk/benefits of further testing or admission. They will be made aware of of the risk/benefits inherent in this decision they will be given the opportunity to voice understanding. Total critical care time today provided was at least 0 minutes. This excludes separately billable procedures. Critical care time (if documented) is secondary to the patient having high probability of clinically significant/life threatening deterioration in the patient's condition which required my urgent intervention. Impression: 1. Acute left knee pain Dispo: Discharge home This note was generated with [employer] dictation software. It may contain incorrect words, spelling, and punctuation that were not noted in review of the chart prior to signing. Radiography X-Ray: Read by ED Physician Diagnostic Testing: Clinical Impression(s) from Imaging Studies Knee X-Ray 11/06/24 23:55 IMPRESSION: No fracture, dislocation or joint effusion. Reading Location: [id number] Discharge Plan Triage Chief Complaint: Lower Extremity Injury ED Provider: Kostas Sherman Dx/Rx/DC Orders Instructions: ED Knee Sprain Prescriptions: No Action carvedilol [Coreg] 3.125 mg tablet 3.125 mg PO BID Rx Instructions: must administer with a meal/food apixaban 5 MG tablet 5 mg PO BID benztropine 1 MG tablet 1 mg PO BID fluoxetine 20 MG capsule 20 mg PO DAILY metformin 500 MG tablet extended release 24 hr 500 mg PO DAILY olanzapine 20 mg tablet,disintegrating 20 mg PO QHS haloperidol 10 mg tablet 10 mg PO QHS cephalexin 500 mg capsule 500 mg PO TID Qty: 16 0RF Rx Instructions: start tonite before bedtime ondansetron 4 mg tablet,disintegrating 4 mg PO Q8H PRN PRN (Reason: Nausea) Qty: 10 0RF Primary Care Provider: Paty Catalan Referrals: Paty Catalan DO [Primary Care Provider] - Activity Restrictions/Additional Instructions: Thank you for trusting us with your care today! Please take Tylenol (2 pills, 650 mg), ibuprofen (2 pills, 400 mg) every 6 hours as needed for pain and fever control. Please return to the emergency department if your symptoms change or worsen. Please follow with your primary care physician for further outpatient evaluation and management. Print Language: [place] Disposition Disposition: Home, Self Care
--- NOTE | 2024-11-06 23:55 | RAD_ITS ---
PROCEDURE: KNEE 4 OR MORE VIEWS 11/07/2024 REASON FOR EXAM: PAIN TECHNIQUE: 4 view(s) of the left knee COMPARISON: None available FINDINGS: No fracture, dislocation or joint effusion. The patellofemoral joint space is not seen on Diego on the sunrise view. Otherwise joint spaces appear within limits. Suggestion of faint [id number] vascular calcification. RAD/Knee 4 or More Views IMPRESSION: No fracture, dislocation or joint effusion. Reading Location: [id number]
[2024-11-07 00:45] VITALS: BP 126/105; PULSE 75; RESP 18; TEMP 36.5; O2SAT 97
== END 2024-11-07 00:46 | disposition home or self-care (01) ==
PROVIDERS: Emergency Provider Emergency Medicine; PCP Internal Medicine; Visit Provider Emergency Medicine
DX: M25.562 Pain in left knee (principal); F20.9 Schizophrenia, unspecified; I11.0 Hypertensive heart disease with heart failure; I50.9 Heart failure, unspecified; F31.9 Bipolar disorder, unspecified; E11.9 Type 2 diabetes mellitus without complications; Z87.891 Personal history of nicotine dependence; Z86.73 Personal history of transient ischemic attack (TIA), and cerebral infarction without residual deficits; Z79.01 Long term (current) use of anticoagulants; Z79.84 Long term (current) use of oral hypoglycemic drugs; Z90.710 Acquired absence of both cervix and uterus; Z90.49 Acquired absence of other specified parts of digestive tract; Z86.718 Personal history of other venous thrombosis and embolism
CPT/HCPCS: 73564; 99284

== ENCOUNTER → 2024-11-30 | Outpatient (CLI) | payer BC, MEDICARE, SELFPAY | END | disposition home or self-care (01) | LOC: LAB 11:35 | PROVIDERS: PCP Internal Medicine; Referring Provider Internal Medicine Pulmonary Disease; Visit Provider Internal Medicine Pulmonary Disease | DX: R09.02 Hypoxemia (principal) ==

== ENCOUNTER → 2024-11-30 | Outpatient (CLI) | payer BC, MEDICARE, SELFPAY ==
[2024-11-30 12:09] LABS: Base Excess 1 mmol/L (-2 to +2); Bicarbonate 25.4 mmol/L (22-26); Blood Gas Specimen Type ART; Mode Not entered; O2 Delivery Device Room Air; PO2 73 mmHG (75-100); SITE L Brach; SO2 95 % (95-99); Total Carbon Dioxide 27 mmol/L; pCO2 37.9 mmHg (35-45); pH 7.43 (7.35-7.45)
== END | disposition home or self-care (01) ==
LOC: PSN 11:41
PROVIDERS: PCP Internal Medicine; Referring Provider Internal Medicine Pulmonary Disease; Visit Provider Internal Medicine Pulmonary Disease
DX: R09.02 Hypoxemia (principal)
CPT/HCPCS: 36600; 82803

== ENCOUNTER 2024-12-01 17:24 | Emergency (ER) | payer BC, MEDICARE, SELFPAY ==
[2024-12-01] VITALS (9 sets, daily range): BP systolic 99–149; BP diastolic 65–94; PULSE 75–87; RESP 15–22; TEMP 35.8–36.8; O2SAT 94–97; BMI 51.1
--- NOTE | 2024-12-01 17:45 | EKG12_ITS ---
Test Reason : CP Blood Pressure : */* mmHG Vent. Rate : 79 BPM Atrial Rate : 79 BPM P-R Int : 174 ms QRS Dur : 88 ms QT Int : 382 ms P-R-T Axes : 64 -9 9 degrees QTcB Int : 438 ms Normal sinus rhythm Nonspecific T wave abnormality Abnormal ECG Confirmed by ENID LEON, PAMELA ([id number]), medical editor MAGGI NORMAN ([id number]) on 12/04/2024 6:54:31 AM Referred By: ADRIÁN/JOYCE Confirmed By: PAMELA ROSSI MD
[2024-12-01] MEDS: Aspirin 81 MG TAB.CHEW 324 MG PO (18:01)
[2024-12-01 18:22] LABS: Absolute Lymphocyte Count 1.53 X10^3/uL (0.83-4.51); Absolute Neutrophil Count 4.1 X10^3/uL (2.0-7.7); Basophil# 0.02 X10^3/uL; Basophil% 0.3 % (0-1); Eosinophil# 0.22 X10^3/uL; Eosinophils% 3.4 % (0-5); Hematocrit 40.1 % (37-47); Hemoglobin 13.5 g/dL (12.0-15.0); Lymphocyte # 1.53 X10^3/ul (0.83-4.51); Lymphocyte % 23.4 % (19-41); Mean Corp Hgb Conc 33.7 g/dL (32-36); Mean Corpuscular Hgb 30.5 pg (27.0-32.0); Mean Corpuscular Volume 90.7 fL (81-99); Mean Platelet Vol. 9.5 fl (6.2-12.0); Monocyte# 0.63 X10^3/uL; Monocyte% 9.6 % (0-10); NRBC Flagged by Analyzer 0 % (0-5); Neutrophil # 4.11 X10^3/uL (2.7-7.7); Platelet Count 210 K/mm3 (150-450); RBC Distribution Width CV 12.7 % (11.6-14.6); RBC Distribution Width SD 42.2 fl (35.1-43.9); Red Blood Count 4.42 M/mm3 (4.2-5.4); White Blood Count 6.5 K/mm3 (4.4-11.0)
--- NOTE | 2024-12-01 18:31 | ED.VIS.CHEST ---
HPI History of Present Illness Chief Complaint: Chest Pain Informant: patient Narrative Narrative: Presents with chest discomfort 90 minutes prior to arrival sitting down with symptoms started. Reports dyspnea and nausea. No pain in the arms. Occasional cough. No recent travel or surgeries. She is on Eliquis chronically due to DVT and PE. She been compliant. She has history of CHF cardiomyopathy when she was 2001 she had a heart cath that was negative that time. Denies tobacco did. Denies family history of MIs at young age. Hypertension, history and diabetes. Denies hyperlipidemia. Sleep apnea. She is followed by cardiology Dr. Schaeffer. Denies history of coronary disease or [place]. CVD Risk Factors: Positive for Hypertension; Negative for Diabetes, Hypercholesterolemia, Family History 1' </=55 or Smoking PE Risk Factors: Positive for Prior DVT or PE; Negative for Recent Travel/Surgery or Recent Immobilization [facility] Medical History Hypoxia Schizophrenia Diabetes Chest pain Stroke/cerebrovascular accident IBS (irritable bowel syndrome) PUD (peptic ulcer disease) Cardiomyopathy Eczema Pulmonary embolism Schizophrenia Bipolar 1 disorder BALDEMAR (obstructive sleep apnea) CHF (congestive heart failure) HTN (hypertension) Nausea & vomiting DVT (deep venous thrombosis) Palpitation Dizzy Home Medications ?Medication ?Instructions ?Recorded ?Last Taken ?Type apixaban 5 mg tablet 5 mg PO BID blood thinner 07/19/20 09/25/22 History benztropine 1 mg tablet 1 mg PO BID mood 07/19/20 09/25/22 History fluoxetine 20 mg capsule 20 mg PO DAILY depression 07/19/20 07/19/20 History metformin 500 mg tablet,extended 500 mg PO DAILY dm 07/19/20 09/25/22 History release 24 hr carvedilol 3.125 mg tablet (Coreg) 3.125 mg PO BID HEART 05/11/22 09/25/22 History haloperidol 10 mg tablet 10 mg PO QHS MOOD 09/26/22 09/25/22 History olanzapine 20 mg disintegrating 20 mg PO QHS MOOD 09/26/22 09/25/22 History tablet ondansetron 4 mg disintegrating 4 mg PO Q8H PRN PRN Nausea #10 tabs 08/17/24 Unknown Rx tablet albuterol sulfate 2.5 mg/3 mL 2.5 mg inhalation Q2H PRN PRN 12/01/24 Unknown History (0.083 %) solution for nebulization dyspnea atorvastatin 10 mg tablet 10 mg PO DAILY 12/01/24 Unknown History tirzepatide 2.5 mg/0.5 mL 2.5 mg subcut QWEEK 12/01/24 Unknown History subcutaneous pen injector (Mounjaro) Allergy/AdvReac Type Severity Reaction Status Date / Time No Known Allergies Allergy Verified 12/01/24 17:25 Family History Mother Breast cancer Aunt Breast cancer Surgical History H/O breast biopsy History of esophagogastroduodenoscopy (EGD) S/P dilation and curettage S/P hysterectomy S/P nasal septoplasty S/P cholecystectomy Social History household members: spouse housing: house Smoking Status: Former smoker Tobacco: How many years used: 4 alcohol intake: former substance use type: does not use ROS ROS ED Constitutional Constitutional ED: Denies chills, fever(s) or sweats ENT ENT ED: Denies sore throat Cardiovascular Cardiovascular: Reports chest pain; Denies leg edema, palpitations or racing heartbeat Respiratory/Chest Respiratory/Chest: Reports dyspnea; Denies cough or dyspnea on exertion Gastrointestinal Gastrointestinal: Reports nausea; Denies abdominal pain, diarrhea or vomiting Genitourinary Genitourinary ED: Denies dysuria, hematuria or urinary frequency Musculoskeletal Musculoskeletal: Denies back pain, extremity pain or neck pain Integumentary Denies rash or wounds Neurologic Neurologic: Denies headache(s), paresthesias or weakness EXAM Physical Exam Const Vital Signs: 12/01/24 17:25 12/01/24 17:41 12/01/24 17:45 Temperature 96.5 F L Temperature Source Temporal Pulse Rate 76 Respiratory Rate 15 Respiratory Effort Normal Blood Pressure 140/84 H Blood Pressure Mean 102 Pulse Ox 96 Oxygen Delivery Method Room Air Room Air 12/01/24 18:24 12/01/24 19:00 12/01/24 19:03 Temperature 98.2 F 97.2 F L Temperature Source Oral Oral Pulse Rate 75 81 82 Respiratory Rate 16 17 22 H Respiratory Effort Blood Pressure 110/65 124/92 H Blood Pressure Mean 80 102 Pulse Ox 97 94 96 Oxygen Delivery Method Room Air Room Air 12/01/24 19:15 12/01/24 19:30 12/01/24 19:45 Temperature Temperature Source Pulse Rate 87 87 Respiratory Rate 17 Respiratory Effort Blood Pressure 149/89 H 131/83 H 110/79 Blood Pressure Mean 104 95 88 Pulse Ox 97 96 96 Oxygen Delivery Method Room Air 12/01/24 20:00 Temperature Temperature Source Pulse Rate 81 Respiratory Rate 17 Respiratory Effort Blood Pressure 99/69 Blood Pressure Mean 77 Pulse Ox 97 Oxygen Delivery Method Positive well nourished and well developed General Appearance ED: well developed and NAD HEENT Reports moist mucous membranes normocephalic and atraumatic Eyes General Eye ED: Yes normal appearance of both eyes Neck full ROM Chest Wall Chest: Negative for tenderness Resp normal respiratory effort and normal air movement Effort and Inspection: symmetric chest movement; Negative for respiratory distress Cardio regular rate, regular rhythm and no murmurs Peripheral Pulses: pulses 2+ throughout GI normal to inspection, nondistended, normoactive bowel sounds and non-tender Palpation: Negative for guarding or rebound tenderness present Extremity normal to inspection General Extremety ED: Negative for edema or tenderness General Extremity: Negative for edema Neuro oriented x3 and no sensory deficits noted Sensorium / Orientation: awake and alert Skin no rashes or lesions noted and no wounds Heart Score History: Slightly/Non-Suspicious ECG: Normal Age: >45 - <65 years Risk Factors: >/= 3 Risk Factors or History of CAD Troponin: </= Normal Limit Score: 3 MDM MDM MDM Narrative Medical decision making narrative: Interventions / MDM: Differential diagnosis: Chest pain. Diagnosis considered but do not suspect: ACS however EKG cardiac enzymes negative x 2. PE however chronic Eliquis with no missed doses per patient. My EKG interpretation: Sinus rate of 79, no ST changes. QTc 438. Imaging independently reviewed and interpreted by myself: 2 view chest x-ray: No acute process. External documents reviewed: N/A Test considered but not ordered:N/A ED course: Patient chest discomfort 90 minutes prior to able. Nausea with dyspnea. Chronic anticoagulant compliant therefore less likely PE. Pulse ox 96% on room air. EKG sinus with no acute findings. Cardiac workup chest x-ray ordered for further evaluation. 2039: Cardiac enzyme negative x 2. Chest x-ray negative. Labs are all stable symptoms improved. Patient reassured of the findings. Discussed outpatient follow-up with her biological sciences instructor. All questions were answered. Re-evaluation: stable Disposition discussed with patient/family/significant other: Patient Case discussed with consulting clinician: N/A This note was generated with [employer] dictation software. It may contain incorrect words, spelling, and punctuation that were not noted in checking the note before signing. Lab Data Attestation: I reviewed the patient's lab results. Labs: Laboratory Results - last 24 hr 12/01/24 12/01/24 18:14 20:00 WBC 6.5 RBC 4.42 Hgb 13.5 Hct 40.1 MCV 90.7 MCH 30.5 MCHC 33.7 RDW Std Deviation 42.2 RDW Coeff of Pato 12.7 Plt Count 210 MPV 9.5 Immature Gran % (Auto) 0.300 Neut % (Auto) 63.0 Lymph % (Auto) 23.4 [place] % (Auto) 9.6 Eos % (Auto) 3.4 Baso % (Auto) 0.3 Absolute Neuts (auto) 4.1 Absolute Lymphs (auto) 1.53 Nucleated RBC % 0 Sodium 140 Potassium 4.0 Chloride 105 Carbon Dioxide 23.5 Anion Gap 11 BUN 12 Creatinine 0.88 Estim Creat Clear Calc 97.91 Est GFR (MDRD) Non-Af 77 BUN/Creatinine Ratio 13.0 Glucose 124 H Calcium 8.0 Troponin T High Sens 11 Troponin T Hi Sens 2 Hr 6 Radiography Diagnostic Testing: Clinical Impression(s) from Imaging Studies Chest X-Ray 12/01/24 18:50 IMPRESSION: No acute cardiopulmonary process. Reading Location: [facility] Discharge Plan Triage Chief Complaint: Chest Pain ED Provider: Bin Maria Dx/Rx/DC Orders Clinical Impression: Chest pain, Chronic anticoagulation Instructions: ED Chest Pain, Uncertain Cause Prescriptions: No Action carvedilol [Coreg] 3.125 mg tablet 3.125 mg PO BID Rx Instructions: must administer with a meal/food apixaban 5 MG tablet 5 mg PO BID benztropine 1 MG tablet 1 mg PO BID fluoxetine 20 MG capsule 20 mg PO DAILY metformin 500 MG tablet extended release 24 hr 500 mg PO DAILY olanzapine 20 mg tablet,disintegrating 20 mg PO QHS haloperidol 10 mg tablet 10 mg PO QHS albuterol sulfate 2.5 mg /3 mL (0.083 %) solution for nebulization 2.5 mg inhalation Q2H PRN PRN (Reason: dyspnea) Mounjaro 2.5 mg/0.5 mL pen injector 2.5 mg subcut QWEEK atorvastatin 10 mg tablet 10 mg PO DAILY ondansetron 4 mg tablet,disintegrating 4 mg PO Q8H PRN PRN (Reason: Nausea) Qty: 10 0RF Primary Care Provider: Paty Catalan Referrals: Paty Catalan DO [Primary Care Provider] - Activity Restrictions/Additional Instructions: Cardiac workup negative. Chest x-ray negative. Follow-up with your biological sciences instructor. Print Language: Turkish Disposition Disposition: Home, Self Care
[2024-12-01 18:39] LABS: Anion Gap 11 (5-15); BUN 12 mg/dL (4-19); Carbon Dioxide 23.5 mmol/L (21.0-32.0); Chloride 105 mmol/L (98-108); Creatinine, Serum 0.88 mg/dL (0.70-1.20); EST Glomerular Filtration Rate 77 (>60); Estimated Creatinine Clearance 97.91 ml/min (50-250); Glucose 124 mg/dL (70-99); Sodium Level 140 mmol/L (133-145); Troponin T High Sensitivity 11 ng/L (<=14)
--- NOTE | 2024-12-01 18:50 | RAD_ITS ---
EXAM: XR Chest, 2 Views CLINICAL INDICATION: CHEST PAIN TECHNIQUE: Frontal and lateral views of the chest. COMPARISON: No relevant prior studies available. FINDINGS: LUNGS AND PLEURAL SPACES: Unremarkable. No consolidation. No pneumothorax. HEART: Unremarkable. No cardiomegaly. MEDIASTINUM: Unremarkable. Normal mediastinal contour. BONES/JOINTS: Unremarkable. No acute fracture. RAD/Chest PA and Lateral IMPRESSION: No acute cardiopulmonary process. Reading Location: [id number]
[2024-12-01 20:26] LABS: Troponin T High Sens 2 HR 6 ng/L (<=14)
== END 2024-12-01 20:52 | disposition home or self-care (01) ==
PROVIDERS: Emergency Provider Emergency Medicine; PCP Internal Medicine; Visit Provider Emergency Medicine
DX: R07.9 Chest pain, unspecified (principal); F20.9 Schizophrenia, unspecified; I11.0 Hypertensive heart disease with heart failure; I50.9 Heart failure, unspecified; F31.9 Bipolar disorder, unspecified; E11.9 Type 2 diabetes mellitus without complications; Z87.891 Personal history of nicotine dependence; Z90.710 Acquired absence of both cervix and uterus; Z79.01 Long term (current) use of anticoagulants; Z86.718 Personal history of other venous thrombosis and embolism; Z86.73 Personal history of transient ischemic attack (TIA), and cerebral infarction without residual deficits; Z79.84 Long term (current) use of oral hypoglycemic drugs; Z90.49 Acquired absence of other specified parts of digestive tract
CPT/HCPCS: 71046; 80048; 84484; 85025; 93005; 99283; A4216

== ENCOUNTER → 2025-01-29 | Outpatient (CLI) | payer BC, MEDICARE, SELFPAY ==
--- NOTE | 2025-01-29 06:49 | ECHOCS_ITS ---
Reason For Study Reason For Study: Dilated CMP Procedure This was a 2D Doppler, Color Flow transthoracic echocardiogram. The study was technically difficult. Contrast injection was performed. Exam performed in department. Left Ventricle Normal LV size. Left ventricular systolic function is normal. The left ventricular ejection fraction is 55 %. No regional wall motion abnormalities noted. Right Ventricle Normal RV size. Normal systolic function. Atria Normal left atrium. Normal right atrium. Mitral Valve Normal mitral valve. Tricuspid Valve Normal tricuspid valve. Aortic Valve Normal aortic valve. Pulmonic Valve Normal pulmonic valve. Great Vessels Normal aortic root. The pulmonary artery is normal size. Inferior vena cava collapse with respiration. Pericardium/Pleural No pericardial effusion. Medication 22 gauge I.V. with prn adaptor inserted into right arm. Diluted definity 3ml given slow IV push to enhance endocardial definition. MMode/2D Measurements & Calculations LVIDd: 4.4 cm IVSd: 0.90 cm Ao root diam: 3.6 cm LVIDs: 3.0 cm LVPWd: 0.94 cm RVDd: 3.3 cm FS: 32.1 % LAV(MOD-sp2): 42.4 ml LVAd ap4: 35.4 cm2 SV(MOD-sp4): 69.1 ml LVLd ap4: 7.7 cm SI(MOD-sp4): 30.2 ml/m2 EDV(MOD-sp4): 131.9 ml EDV(sp4-el): 138.4 ml LVAs ap4: 22.7 cm2 LVLs ap4: 7.0 cm ESV(MOD-sp4): 62.7 ml ESV(sp4-el): 62.4 ml EF(MOD-sp4): 52.4 % EF(sp4-el): 54.9 % SV(sp4-el): 76.0 ml LA dimension(2D): 4.1 cm Time Measurements MV dec time: 0.20 sec Doppler Measurements & Calculations MV E max guanaco: 69.7 cm/sec Lat Peak E' [place]: 6.3 cm/sec Med Peak E' [place]: 7.9 cm/sec MV A max guanaco: 76.7 cm/sec E/E' lat: 11.0 E/E' med: 8.9 MV E/A: 0.91 MV V2 max: 86.4 cm/sec MV P1/2t max gu[place]: 84.4 cm/sec Ao V2 max: 142.6 cm/sec MV max P.0 mmHg MV P1/2t: 72.6 msec Ao max P.1 mmHg MV V2 mean: 53.9 cm/sec MV dec slope: 340.9 cm/sec2 Ao V2 mean: 94.5 cm/sec MV mean P.4 mmHg Ao mean P.2 mmHg MV V2 VTI: 22.7 cm MVA(P1/2t): 3.0 cm2 Ao V2 VTI: 31.5 cm LV V1 max: 122.8 cm/sec MR max guanaco: 480.1 cm/sec PA V2 max: 96.1 cm/sec LV V1 max P.0 mmHg MR max P.2 mmHg ECHO/Echo Complete W/ Contrast Interpretation Summary Normal LV size. Left ventricular systolic function is normal. The left ventricular ejection fraction is 55 %. A transesophageal echocardiogram is recommended. Structurally normal valves. Ordering Physician: Paty Catalan Referring Physician: Paty Catalan Performed By: Sonny Shea RCS
--- NOTE | 2025-01-29 09:44 | STRESSREP ---
Stress Test Report Pharmacologic myocardial perfusion stress test. 54-year-old lady with a history of chest pain Resting EKG demonstrates sinus rhythm with a rate of 83 bpm. Resting blood pressure is 110/78 mmHg. 0.4 mg of regadenoson was infused per usual protocol followed by rapid intravenous saline flush injection. Continuous EKG monitoring was performed. The maximum heart rate was 105 bpm which was 64% of max impacted heart rate the maximum workload was 1 metabolic equivalent. At rest there were no ST or T wave changes noted to suggest ischemia and at peak infusion nonspecific ST changes were noted which did not meet the criteria for ischemia. No clinical angina is noted. The final blood pressure was 118/70 mmHg. Myocardial perfusion protocol. 14.8 mCi of technetium 99m sestamibi was injected at rest. 0.4 mg of regadenoson was infused per usual protocol. At peak infusion 45 mCi of technetium 99m sestamibi was injected stress images were obtained stress and rest images were reconstructed and compared in the short axis vertical long and horizontal long axis. Gated images were also obtained. Perfusion SPECT analysis: Review of the stress images demonstrate normal uptake of tracer noted in all areas of the myocardium. The resting images similar demonstrated normal uptake of tracer noted in all areas of the myocardium. No areas of reversibility are noted to suggest ischemia and no previous infarct is noted. Gated SPECT analysis: The gated ejection fraction is 74%. Conclusion: Normal pharmacologic myocardial perfusion stress test. Preserved ejection fraction.
== END | disposition home or self-care (01) ==
LOC: CVS 06:48
PROVIDERS: PCP Internal Medicine; Referring Provider Internal Medicine; Visit Provider Internal Medicine
DX: I42.0 Dilated cardiomyopathy (principal); R07.9 Chest pain, unspecified
CPT/HCPCS: 78452; 93017; 93306; A9500; Q9957; A4216; C8929; J2785

== ENCOUNTER → 2025-02-21 | Outpatient (CLI) | payer BC, MEDICARE, SELFPAY ==
[2025-02-21 12:22] LABS: Color, Urine Yellow (Yellow); Glucose, Dipstick Normal (Normal); Ketone-Dipstick Negative (Negative); Leukocyte Esterase-Dipstick 500 /ul (Negative); Nitrite-Dipstick Positive (Negative); Occult Blood-Urine 10 /ul (Negative); Protein-Dipstick 30 mg/dl (Negative); Specific Gravity, Urine 1.025 (1.002-1.030); Urine Bilirubin Dipstick Negative (Negative)
[2025-02-21 12:58] LABS: AST(SGOT) 43 U/L (<=31); Alanine Aminotransfer ALT/SGPT 51 U/L (<=34); Albumin, Serum 3.6 g/dL (3.5-5.0); Alkaline Phosphatase 89 U/L (35-104); Anion Gap 12 (5-15); BUN 14 mg/dL (4-19); BUN/Creat Ratio 15.7 RATIO (10-20); Calcium,Total 8.8 mg/dL (7.6-11.0); Carbon Dioxide 24.0 mmol/L (21.0-32.0); Chloride 101 mmol/L (98-108); Cholesterol 115 mg/dL (<=200); Globulin 3.5 g/dL (2.2-4.2); Glucose 174 mg/dL (70-99); Low Density Lipoprotein Calc. 51 mg/dL; Potassium 4.0 mmol/L (3.3-5.1); Triglycerides 129 mg/dL; Very Low Density Lipoprotein 26 mg/dL (5-40); cholesterol:hdl ratio screen 2.97
[2025-02-21 13:11] LABS: Hematocrit 41.1 % (37-47); Hemoglobin 13.5 g/dL (12.0-15.0); Immature Granulocytes Count 0.030 X10^3/uL (0.0-0.0); Mean Corp Hgb Conc 32.8 g/dL (32-36); Mean Corpuscular Volume 92.6 fL (81-99); Mean Platelet Vol. 10.6 fl (6.2-12.0); NRBC Flagged by Analyzer 0 % (0-5); Platelet Count 231 K/mm3 (150-450); RBC Distribution Width CV 12.3 % (11.6-14.6); RBC Distribution Width SD 42.1 fl (35.1-43.9); Red Blood Count 4.44 M/mm3 (4.2-5.4); White Blood Count 6.7 K/mm3 (4.4-11.0)
[2025-02-21 13:36] LABS: Creatinine, Urine (random) 265.00 mg/dL (28.00-217.00)
[2025-02-21 14:03] LABS: Microalbumin,Random Urine 12.3 mg/L (<20 mg/L)
== END | disposition home or self-care (01) ==
PROVIDERS: PCP Internal Medicine; Referring Provider Internal Medicine; Visit Provider Internal Medicine
DX: E11.65 Type 2 diabetes mellitus with hyperglycemia (principal); E78.5 Hyperlipidemia, unspecified
CPT/HCPCS: 36415; 80053; 80061; 81002; 82043; 82570; 83036; 84443; 85025

== ENCOUNTER → 2025-05-29 | Outpatient (CLI) | payer BC, MEDICARE, SELFPAY ==
--- NOTE | 2025-05-29 15:01 | BI_ITS ---
EXAM: SCRN MAMM (CAD)W/TORO BILAT DATE: 05/29/2025 CLINICAL HISTORY: F, Age 55 y/o , SCREENING TECHNIQUE: Procedure Code: [id number] Modality: MG Procedure: SCRN MAMM (CAD)W/TORO BILAT COMPARISON: Prior exam(s) were compared FINDINGS: TISSUE DENSITY: The breasts are heterogeneously dense, which may obscure small masses. Bilateral Breast Mammographic Findings: No suspicious masses, calcifications or other abnormalities are identified. BI/SCRN MAMM (CAD)W/TORO BILAT IMPRESSION: No mammographic evidence of malignancy in either breast. OVERALL FINAL ASSESSMENT BI-RADS 1: NEGATIVE. RECOMMENDATION: Routine annual follow-up in 1 Year Additional Recommendation none A letter with findings and recommendations will be mailed to the patient. Reading Location: [id number]
== END | disposition home or self-care (01) ==
PROVIDERS: PCP Internal Medicine; Referring Provider Internal Medicine; Visit Provider Internal Medicine
DX: Z12.31 Encounter for screening mammogram for malignant neoplasm of breast (principal)
CPT/HCPCS: 77063; 77067